=== PATIENT | male | born 1935 | race Caucasian/White ===

== ENCOUNTER 2018-01-26 11:00 | Outpatient (RCR) | payer MEDICARE, OTHER, SELFPAY ==
--- NOTE | 2018-01-17 12:41 | HP.PTEVAL_ITS ---
Patient's Visit Information REGINA ROJAS is a 82 year old M referred to Physical Therapy by Eris MCDONALD with a diagnosis of Left Shoulder Pain. Date of Evaluation: 01/17/18 Physical Therapist: Tiffany Christina - Visit Plan Frequency: 2x /Week Duration: 2 Weeks Plan: Focus on HEP- not above his head - Subjective Subjective: 2003 had a DENTAL BILLING SPECIALIST shunt for temporary subarachnoid bleed- then was diagnosed with bacterial menengitis. 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 Thngs are constantly changing. Bottom line is can't operate anymore has been all over and they basically told him that there is nothing they can do. 99.5% of the problems are coming from the spinal cord- not peripheral. Can stand with a walker so his can pull up his pants. The left leg partially works. Both shoulders are torn but he is unable to go throughout surgery. Goes to the [facility] 3x a week. Switched to the power chair about 2 weeks ago and the shoulder is better. Has a new chair but he has to redo the arms. Is here due to his left arm not working. Agg: anything - Pain starts in the shoulder blade and radiates to the triceps and deltoid. Eases: none Worst: 9/10 Best: 2/10. Stabbing pains. 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 No neck pain. Exercises 40 min before he gets out of bed in the morning. Uses his power wheelchair in the house. - Objective Posture: FH, RS, Increased kyphosis. Palpation: tender along scapula, upper trap, bicicipital groove and down the biceps and triceps to the elbow. ROM: flexion: 160 degrees, abd: to ear, ER: 40 degrees significant crunching and creaking. Strength: 5/5 throughout - Goals Goal 1:: Patient will be I with HEP and progression Goal Time Frame: 4-6 Weeks Goal 2:: Patinet will demo full ROM of the left UE Goal Time Frame: 4-6 Weeks Goal 3:: Patient will report 4/10 pain at its worst Goal Time Frame: 4-6 Weeks - Rehabilitation Potential Physical Therapy Diagnosis: Patient presents with hypomobility- he has decreased ROM and muscular endurance leading to increased pain Rehabilitation Potential: Fair - Anticipated Interventions Patient/Client Instruction: Educate patient on: Benefits of Fitness Program For the Purpose of:: To improve performance and independence with ADL's Therapeutic Exercise to Include: Strength training, Body mechanics, Postural training, Passive ROM, Active ROM, Scapular Strength/Stabilization For the Purpose of:: To improve performance and independence with ADL's Cryotherapy (ice pack, ice massage): Yes Thermo therapy (hot pack): Yes For the Purpose of:: To decrease pain Thank you for the opportunity to evaluate your patient. For Medicare and Medicare HMO plans, please review the plan of care and approve it. It will need to be FAXED BACK to us at [phone] for Medicare purposes. Please let me know if there are questions or concerns regarding this plan of care. Physician Signature: Date:
--- NOTE | 2018-03-05 10:52 | HP.PT.NRP ---
HP - Discharge Summary (1) - Patient Information REGINA ROJAS was seen in my office for initial evaluation on 01/17/18. The following Plan of Care was established for this patient: Initial Frequency: 2x /Week Initial Duration: 2 Weeks - Anticipated Interventions Patient/Client Instruction: Educate patient on: Benefits of Fitness Program For the Purpose of:: To improve performance and independence with ADL's Therapeutic Exercise to Include: Strength training, Body mechanics, Postural training, Passive ROM, Active ROM, Scapular Strength/Stabilization For the Purpose of:: To improve performance and independence with ADL's Cryotherapy (ice pack, ice massage): Yes Thermo therapy (hot pack): Yes For the Purpose of:: To decrease pain This patient was last seen in our office . Pertinent comments regarding their Physical therapy will appear below: Patient has not attended therapy in 4 weeks and is appropriate for d/c at this time. At this point I will be discontinuing this patient from physical therapy. I would be happy to see this patient again in the future if found appropriate by the physician. Thank you! Tiffany Christina
== END 2018-01-26 19:00 | disposition home or self-care (01) ==
LOC: PT 11:00
PROVIDERS: Family Provider Family Medicine; PCP Family Medicine; Visit Provider Family Medicine
DX: M25.512 Pain in left shoulder (principal)
CPT/HCPCS: 97014; 97110; 97163; G0283

== ENCOUNTER 2018-01-28 11:58 | Inpatient (IN) | payer MEDICARE, OTHER, SELFPAY ==
[2018-01-28 12:00] VITALS: BP 127/73; PULSE 81; RESP 18; TEMP 37.4; O2SAT 98; BMI 24.3
--- NOTE | 2018-01-28 12:11 | VDLE_ITS ---
Reason For Study: swelling Procedure LEFT Exam performed portable in ED. GSV is normal. The exam was diagnostic. POP V is compressible, spontaneous, phasic, Difficult study. Pt in chair and unable to competent and demonstrates normal transfer. augmentation. A preliminary report was called and/or faxed T/P Trunk is compressible. to ED RN. PTV is compressible. LT PerV is compressible. Chronic vein wall thickening noted in the CFV and FV with normal venous flow patterns. Interpretation Summary Patient examined while sitting in a chair No evidence for acute deep venous thrombosis Vein wll thickening noted in the left common femoral and femoral veins consistent with patient's history of chronic deep venous thrombosis--compare to 11/11/16. Ordering Physician: Shruthi Miles Performed By: Kasi Barragan RVT
[2018-01-28 12:43] LABS: Absolute Lymphocyte Count 0.89 X10^3/ul (0.83-4.51); Absolute Neutrophil Count 9.8 X10^3/uL (2.0-7.7); Basophil# 0.01 X10^3/uL; Basophil% 0.1 % (0-1); Eosinophil# 0.01 X10^3/uL; Eosinophils% 0.1 % (0-5); Hemoglobin 12.6 g/dl (13.0-16.5); Lymphocyte # 0.89 X10^3/ul (4.0); Lymphocyte % 7.7 % (19-41); Mean Corp Hgb Conc 32.3 g/gl (32-36); Mean Corpuscular Hgb 32.6 pg (27.0-32.0); Mean Platelet Vol. 9.6 fl (6.2-12.0); Monocyte# 0.73 X10^3/uL; Monocyte% 6.3 % (0-10); Neutrophil # 9.84 X10^3/uL (2.7-7.7); Neutrophil % 85.6 % (47-70); Platelet Count 116 K/mm3 (150-450); RBC Distribution Width CV 13.3 % (11.6-14.6); RBC Distribution Width SD 49.6 fl (35.1-43.9); Red Blood Count 3.86 M/mm3 (4.6-6.2); White Blood Count 11.5 K/mm3 (4.4-11.0)
[2018-01-28 12:48] LABS: POSITIVE COUNT NO; POSITIVE DIFFERENTIAL NO; POSITIVE MORPHOLOGY NO
[2018-01-28] MEDS: 0.9% Normal Saline 1,000 ML 150 ML IV (12:52)
[2018-01-28 12:57] LABS: Anion Gap 3 (5-15); BUN 21 mg/dL (7-18); BUN/Creat Ratio 23.7 RATIO (10-20); Calcium,Total 8.6 mg/dL (8.5-10.1); Chloride 98 mmol/L (98-107); Creatinine, Serum 0.89 mg/dL (0.70-1.30); EST Glomerular Filtration Rate 88 mL/min (>60); Est Glom Filt Rate - Afr Amer 106 mL/min (>60); Estimated Creatinine Clearance 68.35 ml/min; Glucose 110 mg/dL (74-106); Potassium 4.2 mmol/L (3.5-5.1); Sodium Level 135 mmol/L (136-145)
--- NOTE | 2018-01-28 13:40 | ED.DCSUM_ITS ---
- ER Visit Summary Date of Service: 01/28/18 Chief Complaint: [Redness and swelling left leg] History of Present Illness: The patient is a 82 M [presents to the emergency department with chief complaint of redness and swelling to his left leg that started yesterday. Patient has a history of prior cellulitis. Patient denies any trauma to his leg. Patient denies any chest pain or shortness of breath. Patient does have a history of DVT and has a Bree filter in place. Patient currently not anticoagulated. Patient denies any fevers at home. Patient was seen at the urgent care today and sent to the emergency department for further evaluation.] Physical Examination: [HEENT-PERRLA, EOMI. Cranial nerves II through XII grossly intact. TMs clear. Mucous membranes moist. No adenopathy. Cardiovascular-regular rate and rhythm without murmur or ectopy Lungs-clear to auscultation, chest wall stable without crepitus or subcu emphysema Abdomen-normoactive bowel sounds, soft, nontender, no rebound or rigidity, no peritoneal signs. Extremities-intact ?4, normal range of motion, normal pulses. Left leg-there is diffuse erythema from below the knee to the foot as well as soft tissue swelling and edema. Patient has normal dorsal pedal posterior tibial pulses. The leg is warm to the touch. Test Results: [CBC with differential showed a white blood cell count of 11.5, hemoglobin 12.6, hematocrit 39, platelets 116. Chemistries unremarkable. Venous duplex of the left lower extremity showed chronic thickening of the veins however no acute DVT noted.] Emergency Department Course and Treatment: [Patient had blood cultures ordered and was started on Levaquin IV as he states that last time he had severe cellulitis it seems that the Levaquin was able to take care of it. Treatment Plan: [Patient wanted to speak with the hospitalist prior to deciding on admission. After discussing case with hospitalist he agreed to be admitted for IV antibiotics and further management of his cellulitis.] Disposition: [Admit] Impression: [Cellulitis left leg] This note was generated with [employer] dictation software. It may contain incorrect words, spelling, and punctuation that were not noted in review of the chart prior to signing ED Disposition - Plan for ED Patient: Chief Complaint: Cellulitis Referrals: Eris Melendez MD [Primary Care Provider] -
[2018-01-28 15:25] VITALS: BP 141/71; PULSE 77; RESP 16; O2SAT 99
--- NOTE | 2018-01-28 15:26 | PCM.HP.STD ---
Problem List (1) Chronic pain Status: Chronic Qualifiers: Chronic pain type: chronic pain syndrome Qualified Code(s): G89.4 - Chronic pain syndrome (2) Macrocytic anemia Status: Acute (3) Thrombocytopenia Status: Acute (4) Contusion of toe Status: Resolved (5) Left leg cellulitis Status: Acute Comment: unknown etiology (6) Left leg weakness Status: Chronic (7) Seizure Status: Ruled-out (8) Carpal tunnel syndrome on both sides Status: Chronic (9) Constipation Status: Chronic (10) DVT (deep venous thrombosis) Status: Resolved Comment: with interior and anterior filters in place bilateral (11) HTN (hypertension) Status: Chronic Qualifiers: (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 (17) Immunocompromised due to corticosteroids Status: Acute (18) Tinea pedis Status: Acute Qualifiers: Laterality: left Qualified Code(s): B35.3 - Tinea pedis History of Present Illness Date of Admission: 01/28/18 Chief Complaint: increased redness, swelling and pain LLE The patient is a 82 year old M with a PMH of transverse myelitis/paraplegia, CIVIL RIGHTS INVESTIGATOR shunt(after a SAH), syringomyelia(due to bacterial meningitis), DVT (filter present), chronic pain S. nocardia involving the RUE and LLE in the past(on suppressive Bactrim), steroid induced DM, chronic steroid use, HTN, PVD, SAH and BL CTS who presented to the Ed at [facility] on 01/28/18 c/o increased swelling, redness and pain of the LLE. He denied fever, chills, sweats. He denied any falls or injuries to the Legs recently. He moisturizes the Leg with Duoderm daily. Vital signs at presentation to the emergency room are temperature 99.3, pulse rate 81, blood pressure 127/73, respiratory rate 18 and he was 98% saturated on room air. CBC shows an elevated white blood cell count at 11.5 with 86% neutrophils and 0.2% immature granulocytes. The hemoglobin is low at 12.6 with an MCV of 101. Platelets are low at 116,000. Sodium is low at 135 and the carbon dioxide is increased at 34. On PE the left leg from tibial plateau distally is red/purple, swollen and has increased warmth to touch. No openings in the skin. there is Maceration between the left big toe and the second toe with a opening in the skin. It is painful to touch. He tells me that he has had MRSA in the past and has been treated with VAncomycin on many occasions. He is being admitted to the hospital with a dx of cellultis and tinea pedis. 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 Allergies Cephalosporins Allergy (Intermediate, Verified 11/10/16 18:54) Laryngospasms Penicillins Allergy (Intermediate, Verified 01/08/14 13:27) Rash IVP DYE Allergy (Uncoded 09/01/14 09:52) Rash Home Medications: Ambulatory Orders Medication Instructions Recorded Gabapentin [Neurontin] 600 mg PO TID@0800,1700,2199 #90 09/18/14 capsule Ketoconazole [Nizoral Cream] 1 applic TOPICAL PRN PRN #14 09/18/14 Multivitamins,Ther W-Minerals 1 tablet PO DAILY@1700 #30 tablet 09/18/14 [Multivitamin With Minerals] Pyridoxine HCl [Vitamin B-6] 100 mg PO DAILY@1700 #30 tablet 09/18/14 Isosorbide Dinitrate [Isordil] 10 mg PO DAILY@219901/12/16 Losartan Potassium [Cozaar] 12.5 mg PO DAILY@219901/12/16 Senna/Docusate Sodium [Senokot-S] 1 tablet PO BID@0800,219901/12/16 Carvedilol [Coreg] 3.125 mg PO DAILY@1700 11/10/16 Duloxetine Hcl [Cymbalta] 60 mg PO DAILY@1700 11/10/16 Furosemide [Lasix] 40 mg PO DAILY@2200 11/10/16 Magnesium Oxide [Magnesium] 500 mg PO BID@0800,2200 11/10/16 Riboflavin [Vitamin B2] 200 mg PO DAILY@1700 11/10/16 Smz/Tmp Ds [Bactrim Ds] 1 tablet PO DAILY@0800 11/10/16 Acetaminophen [Tylenol Tablet] 650 mg PO Q6H PRN PRN #0 tablet 11/14/16 Hydrocodone/Acetaminophen 1 each PO BID@1700,2200 #60 tablet 11/14/16 [Hydrocodon-Acetaminophn 10-325] Ibuprofen [Motrin] 200 mg PO Q6H PRN #0 tablet 11/14/16 MorphINE [Ms Contin] 30 mg PO TID@0800,1600,2200 #60 11/14/16 tablet Oxymetazoline 0.05% [Afrin (BKC)] 2 spray NASAL Q12H PRN PRN #1 11/14/16 spray.btl Hydrocortisone 20 mg PO TID 01/28/18 Metformin HCl [Glucophage] 500 mg PO BIDCM 01/28/18 Surgical History: - - Laminectomy 2006, 2007. History of CIVIL RIGHTS INVESTIGATOR shunt for subarachnoid hemorrhage which secondarily got infected with E. coli. 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 Psychiatric History: No pertinent psych hx, - - he is very angry now and his attributes this to the steroids....she states it makes him mean. 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 Smoking Status: Never smoker - *Family History Maternal History Items: - - , depression Paternal History Items: - - Offspring History Items: - - 2 children, 4 grand children, 1 great grandchild, all in good health Review of Systems Constitutional: Denies: Chills, Fever, Weight Change HEENT: Reports: Head Aches - tells me that he always gets a FOWLER when he has an infection......denies neck stiffness. Denies: Sinus Congestion, Sinus Drainage Cardiovascular: Denies: Chest Pain, Palpitations Respiratory: Denies: Cough, Shortness of breath at rest, Sputum production Gastrointestinal: Denies: Abdominal Pain, Nausea, Vomiting Genitourinary: Denies: Dysuria Musculoskeletal: Reports: Leg Pain - left leg Neurological: Reports: Focal weakness - he is paraplegic...he has some strength in the LLE. 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) Tinea pedis (Acute) - Physical Exam General: Alert, Oriented x3, Cooperative, No apparent distress - but very angry and c/o everything.....does not want to be in the hospital because he does not like being awakened multiple times at night and does not like to have lab work every day and does not like to be poked for IV's etc....., Well developed, Well nourished HEENT: Atraumatic, PERRLA, EOMI, Normocephalic, - - he has a scar on the scalp from previous surgery for a SAH and subsequent placement of a CIVIL RIGHTS INVESTIGATOR shunt Oral: No Gingival or Mucosal Lesions/ Ulcerations, Dry Mucosa Neck: Supple, No Nodes, Trachea Midline Lungs: Clear to auscultation, Normal air movement, No rhonchi, No wheeze, No rales Cardiovascular: Regular rate, Regular Rhythm, Normal S1, Normal S2, Murmur - 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 with radiation to the LLSB and the apex, No rub noted, No Gallop Abdomen: Bowel Sounds Present, Soft, Non Tender, Non-Distended Extremities: No clubbing, No cyanosis, Edema - of the Left ankle and distal LLE Skin: No rashes, Incision - there is maceration and an opening in the skin between the left great toe and the second toe Musculoskeletal: Tenderness - of the LLE distal to the knee with palpation Neurological: Cranial nerves II-XII grossly intact Psych/Mental Status: Agitated Vital Signs Temp Pulse Resp BP Pulse Ox 99.3 F H 77 16 141/71 H 99 01/28/18 12:00 01/28/18 15:25 01/28/18 15:25 01/28/18 15:25 01/28/18 15:25 Oxygen Delivery Method Room Air Weight: 170 lb Body Mass Index (BMI) 24.3 Laboratory Tests Past 24 Hrs 01/28/18 01/28/18 12:30 12:30 WBC 11.5 H RBC 3.86 L Hgb 12.6 L Hct 39.0 L MCV 101.0 H MCH 32.6 H MCHC 32.3 RDW 13.3 RDW Differential 49.6 H Plt Count 116 L MPV 9.6 Immature Gran % (Auto) 0.200 Neut % (Auto) 85.6 H Lymph % (Auto) 7.7 L [place] % (Auto) 6.3 Eos % (Auto) 0.1 Baso % (Auto) 0.1 Absolute Neuts (auto) 9.8 H Absolute Lymphs (auto) 0.89 Total Counted Not Reportable Sodium 135 L Potassium 4.2 Chloride 98 Carbon Dioxide 34.0 H Anion Gap 3 L BUN 21 H Creatinine 0.89 Estim Creat Clear Calc 68.35 Est GFR (MDRD) Af Amer 106 Est GFR (MDRD) Non-Af 88 BUN/Creatinine Ratio 23.7 H Glucose 110 H Calcium 8.6 Assessment/Plan Active and Suspected Problems Macrocytic anemia (Acute) Thrombocytopenia (Acute) 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) Tinea pedis (Acute) Impressions 1. 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 Tinea pedis between the left great toe and the second toe 3. hx of SAH in the past with subsequent CIVIL RIGHTS INVESTIGATOR shunt and then E. Coli bacterial meningitis followed by syringomyelia 4. CIVIL RIGHTS INVESTIGATOR shunt 5. 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 On chronic suppression with Bactrim 7. PVD 8. Hypertension 9. Bilateral carpal tunnel syndrome 10. Chronic pain syndrome 11. Macrocytic anemia 12. chronic constipation 13. metabolic alkalosis/dehydration Admit to MS Start Vanco and PO Levaquin culture the open area between the left big and second toes ECHO to evaluate the MM BC's draw in the ER Lotrimin between the toes and a small gauze to keep it dry His meds were ordered just like he takes them at home and will attempt not to awaken from 2300 to 0700 Hydrate with NS Recheck the lab in 48H Consult Dr. Robert PCR on the DC between the toes. Code Visit Inpatient E&M: 14432 Init Hosp L2
--- NOTE | 2018-01-28 15:45 | HP.PCM_ITS ---
Problem List (1) Chronic pain Status: Chronic Qualifiers: Chronic pain type: chronic pain syndrome Qualified Code(s): G89.4 - Chronic pain syndrome (2) Macrocytic anemia Status: Acute (3) Thrombocytopenia Status: Acute (4) Contusion of toe Status: Resolved (5) Left leg cellulitis Status: Acute Comment: unknown etiology (6) Left leg weakness Status: Chronic (7) Seizure Status: Ruled-out (8) Carpal tunnel syndrome on both sides Status: Chronic (9) Constipation Status: Chronic (10) DVT (deep venous thrombosis) Status: Resolved Comment: with interior and anterior filters in place bilateral (11) HTN (hypertension) Status: Chronic Qualifiers: (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 nocardia involving the RUE and LLE in the past(on suppressive Bactrim), steroid induced DM, chronic steroid use, HTN, PVD, SAH and BL CTS who presented to the Ed at [facility] on 01/28/18 c/o increased swelling, redness and pain of the LLE. He denied fever, chills, sweats. He denied any falls or injuries to the Legs recently. He moisturizes the Leg with Duoderm daily. Vital signs at presentation to the emergency room are temperature 99.3, pulse rate 81, blood pressure 127/73, respiratory rate 18 and he was 98% saturated on room air. CBC shows an elevated white blood cell count at 11.5 with 86% neutrophils and 0.2% immature granulocytes. The hemoglobin is low at 12.6 with an MCV of 101. Platelets are low at 116,000. Sodium is low at 135 and the carbon dioxide is increased at 34. On PE the left leg from tibial plateau distally is red/purple, swollen and has increased warmth to touch. No openings in the skin. there is Maceration between the left big toe and the second toe with a opening in the skin. It is painful to touch. He tells me that he has had MRSA in the past and has been treated with VAncomycin on many occasions. He is being admitted to the hospital with a dx of cellultis and tinea pedis. 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 Allergies Cephalosporins Allergy (Intermediate, Verified 11/10/16 18:54) Laryngospasms Penicillins Allergy (Intermediate, Verified 01/08/14 13:27) Rash IVP DYE Allergy (Uncoded 09/01/14 09:52) Rash Home Medications: Ambulatory Orders Medication Instructions Recorded Gabapentin [Neurontin] 600 mg PO TID@0800,1700,2199 #90 09/18/14 capsule Ketoconazole [Nizoral Cream] 1 applic TOPICAL PRN PRN #14 09/18/14 Multivitamins,Ther W-Minerals 1 tablet PO DAILY@1700 #30 tablet 09/18/14 [Multivitamin With Minerals] Pyridoxine HCl [Vitamin B-6] 100 mg PO DAILY@1700 #30 tablet 09/18/14 Isosorbide Dinitrate [Isordil] 10 mg PO DAILY@219901/12/16 Losartan Potassium [Cozaar] 12.5 mg PO DAILY@219901/12/16 Senna/Docusate Sodium [Senokot-S] 1 tablet PO BID@0800,219901/12/16 Carvedilol [Coreg] 3.125 mg PO DAILY@1700 11/10/16 Duloxetine Hcl [Cymbalta] 60 mg PO DAILY@1700 11/10/16 Furosemide [Lasix] 40 mg PO DAILY@2200 11/10/16 Magnesium Oxide [Magnesium] 500 mg PO BID@0800,2200 11/10/16 Riboflavin [Vitamin B2] 200 mg PO DAILY@1700 11/10/16 Smz/Tmp Ds [Bactrim Ds] 1 tablet PO DAILY@0800 11/10/16 Acetaminophen [Tylenol Tablet] 650 mg PO Q6H PRN PRN #0 tablet 11/14/16 Hydrocodone/Acetaminophen 1 each PO BID@1700,2200 #60 tablet 11/14/16 [Hydrocodon-Acetaminophn 10-325] Ibuprofen [Motrin] 200 mg PO Q6H PRN #0 tablet 11/14/16 MorphINE [Ms Contin] 30 mg PO TID@0800,1600,2200 #60 11/14/16 tablet Oxymetazoline 0.05% [Afrin (BKC)] 2 spray NASAL Q12H PRN PRN #1 11/14/16 spray.btl Hydrocortisone 20 mg PO TID 01/28/18 Metformin HCl [Glucophage] 500 mg PO BIDCM 01/28/18 Surgical History: - - Laminectomy 2006, 2007. History of LAUNCH ENGINEER shunt for subarachnoid hemorrhage which secondarily got infected with E. coli. 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 Psychiatric History: No pertinent psych hx, - - he is very angry now and his attributes this to the steroids....she states it makes him mean. 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 Smoking Status: Never smoker - *Family History Maternal History Items: - - , depression Paternal History Items: - - Offspring History Items: - - 2 children, 4 grand children, 1 great grandchild, all in good health Review of Systems Constitutional: Denies: Chills, Fever, Weight Change HEENT: Reports: Head Aches - tells me that he always gets a FOWLER when he has an infection......denies neck stiffness. Denies: Sinus Congestion, Sinus Drainage Cardiovascular: Denies: Chest Pain, Palpitations Respiratory: Denies: Cough, Shortness of breath at rest, Sputum production Gastrointestinal: Denies: Abdominal Pain, Nausea, Vomiting Genitourinary: Denies: Dysuria Musculoskeletal: Reports: Leg Pain - left leg Neurological: Reports: Focal weakness - he is paraplegic...he has some strength in the LLE. 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) Tinea pedis (Acute) - Physical Exam General: Alert, Oriented x3, Cooperative, No apparent distress - but very angry and c/o everything.....does not want to be in the hospital because he does not like being awakened multiple times at night and does not like to have lab work every day and does not like to be poked for IV's etc....., Well developed, Well nourished HEENT: Atraumatic, PERRLA, EOMI, Normocephalic, - - he has a scar on the scalp from previous surgery for a SAH and subsequent placement of a LAUNCH ENGINEER shunt Oral: No Gingival or Mucosal Lesions/ Ulcerations, Dry Mucosa Neck: Supple, No Nodes, Trachea Midline Lungs: Clear to auscultation, Normal air movement, No rhonchi, No wheeze, No rales Cardiovascular: Regular rate, Regular Rhythm, Normal S1, Normal S2, Murmur - 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 with radiation to the LLSB and the apex, No rub noted, No Gallop Abdomen: Bowel Sounds Present, Soft, Non Tender, Non-Distended Extremities: No clubbing, No cyanosis, Edema - of the Left ankle and distal LLE Skin: No rashes, Incision - there is maceration and an opening in the skin between the left great toe and the second toe Musculoskeletal: Tenderness - of the LLE distal to the knee with palpation Neurological: Cranial nerves II-XII grossly intact Psych/Mental Status: Agitated Vital Signs Temp Pulse Resp BP Pulse Ox 99.3 F H 77 16 141/71 H 99 01/28/18 12:00 01/28/18 15:25 01/28/18 15:25 01/28/18 15:25 01/28/18 15:25 Oxygen Delivery Method Room Air Weight: 170 lb Body Mass Index (BMI) 24.3 Laboratory Tests Past 24 Hrs 01/28/18 01/28/18 12:30 12:30 WBC 11.5 H RBC 3.86 L Hgb 12.6 L Hct 39.0 L MCV 101.0 H MCH 32.6 H MCHC 32.3 RDW 13.3 RDW Differential 49.6 H Plt Count 116 L MPV 9.6 Immature Gran % (Auto) 0.200 Neut % (Auto) 85.6 H Lymph % (Auto) 7.7 L [place] % (Auto) 6.3 Eos % (Auto) 0.1 Baso % (Auto) 0.1 Absolute Neuts (auto) 9.8 H Absolute Lymphs (auto) 0.89 Total Counted Not Reportable Sodium 135 L Potassium 4.2 Chloride 98 Carbon Dioxide 34.0 H Anion Gap 3 L BUN 21 H Creatinine 0.89 Estim Creat Clear Calc 68.35 Est GFR (MDRD) Af Amer 106 Est GFR (MDRD) Non-Af 88 BUN/Creatinine Ratio 23.7 H Glucose 110 H Calcium 8.6 Assessment/Plan Active and Suspected Problems Macrocytic anemia (Acute) Thrombocytopenia (Acute) 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) Tinea pedis (Acute) Impressions 1. 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 Tinea pedis between the left great toe and the second toe 3. hx of SAH in the past with subsequent LAUNCH ENGINEER shunt and then E. Coli bacterial meningitis followed by syringomyelia 4. LAUNCH ENGINEER shunt 5. 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 On chronic suppression with Bactrim 7. PVD 8. Hypertension 9. Bilateral carpal tunnel syndrome 10. Chronic pain syndrome 11. Macrocytic anemia 12. chronic constipation 13. metabolic alkalosis/dehydration Admit to MS Start Vanco and PO Levaquin culture the open area between the left big and second toes ECHO to evaluate the MM BC's draw in the ER Lotrimin between the toes and a small gauze to keep it dry His meds were ordered just like he takes them at home and will attempt not to awaken from 2300 to 0700 Hydrate with NS Recheck the lab in 48H Consult Dr. Robert PCR on the DC between the toes. Code Visit Inpatient E&M: 16065 Init Hosp L2
[2018-01-28 16:06] VITALS: BMI 24.3
[2018-01-28 16:12] VITALS: BP 121/53; PULSE 79; RESP 18; TEMP 37.2; O2SAT 96
[2018-01-28 16:14] LABS: Immature Platelet Fraction 2.5 % (1.0-7.9); RET-HE 32.1 pg (30-35); Reticulocyte Count 1.32 % (0.5-1.5)
[2018-01-28 16:35] LABS: Erythrocyte Sedimentation Rate 35 mm/hr (0-20)
[2018-01-28] MEDS: 0.9% Normal Saline 1,000 ML 100 ML IV (16:35)
[2018-01-28 16:59] LABS: Hemoglobin A1c 5.8 % (4.2-6.3)
[2018-01-28 17:41] LABS: Bedside Glucose 163 mg/dL (70-110)
[2018-01-28 18:13] LABS: Bacteria 0 SEEN /hpf (None Seen); Mucous, Urine 0 SEEN /hpf (<or=2+); Red Blood Cells-Urine 0 SEEN /hpf (0-5); Squamous Epithelial Cells - UA 0 SEEN /hpf (0-5)
[2018-01-28 18:22] LABS: Color, Urine Yellow (Yellow); Glucose, Dipstick Normal (Normal); Ketone-Dipstick Negative (Negative); Leukocyte Esterase-Dipstick 100 /ul (Negative); Nitrite-Dipstick Negative (Negative); Occult Blood-Urine Negative /ul (Negative); Protein-Dipstick 15 mg/dl (Negative); Urine Bilirubin Dipstick Negative (Negative); Urine Clarity Clear (Clear); Urine Urobilinogen Normal (Normal)
[2018-01-28 18:30] LABS: White Blood Cells 0-5 SEEN /hpf (0-5)
[2018-01-28 19:07] VITALS: BMI 24.0
[2018-01-28] MEDS: DULoxetine Hcl 60 MG Capsule PO (19:30)
[2018-01-28] MEDS: Hydrocortisone 10 MG Tablet 20 MG PO (19:31)
[2018-01-28] MEDS: Pyridoxine HCl 100 MG Tablet PO (19:31)
[2018-01-28] MEDS: Senna/Docusate Sodium 1 Tablet PO (19:32)
[2018-01-28] MEDS: Multivitamins,Ther W-Minerals Tablet 1 TABLET PO (19:32)
[2018-01-28] MEDS: Carvedilol 3.125 MG TABLET PO (19:33)
[2018-01-28 19:47] LABS: M R Staph aureus DNA By PCR Negative (Negative); Probe Check PASS; Specimen Processing Control PASS; Staph aureus DNA By PCR NEGATIVE (Negative)
[2018-01-28] MEDS: Gabapentin 300 MG Capsule 600 MG PO (21:44)
[2018-01-28] MEDS: Furosemide 40 MG Tablet PO (21:45)
[2018-01-28] MEDS: Losartan Potassium 25 MG Tablet 12.5 MG PO (21:45)
[2018-01-28 22:00] VITALS: BP 118/59; PULSE 72; RESP 18; TEMP 37.9; O2SAT 97
[2018-01-28] MEDS: Isosorbide DN 10 MG Tablet PO (22:03)
[2018-01-28 22:40] LABS: Bedside Glucose 153 mg/dL (70-110)
[2018-01-29 02:00] VITALS: BP 156/86; PULSE 82; RESP 18; TEMP 37.6; O2SAT 97
[2018-01-29] MEDS: 0.9% Normal Saline 1,000 ML 100 ML IV (02:11)
--- NOTE | 2018-01-29 05:55 | ECHOCS_ITS ---
Reason For Study: murmur Procedure This was a 2D Doppler, Color Flow transthoracic echocardiogram. The study was technically limited. The study was technically difficult. Contrast injection was performed. Exam performed portable in patient room. Left Ventricle Normal LV size. Left ventricular systolic function is normal. The estimated ejection fraction is 60 %. No evidence for diastolic dysfunction. No regional wall motion abnormalities noted. Right Ventricle Normal RV size. Normal systolic function. Atria Normal left atrium. Normal right atrium. Mitral Valve There is mild to moderate mitral annular calcification. Tricuspid Valve Normal tricuspid valve. Aortic Valve The aortic valve is not well visualized. Mild focal aortic valve calcification. Pulmonic Valve The pulmonic valve is not well visualized. Great Vessels Normal aortic root. Pericardium/Pleural No pericardial effusion. Medication Diluted definity 4.0ml given slow IV push to enhance endocardial definition. MMode/2D Measurements & Calculations LVIDd: 3.7 cm IVSd: 1.1 cm LVOT diam: 2.0 cm LVIDs: 2.6 cm LVPWd: 1.1 cm LVOT area: 3.1 cm2 FS: 30.4 % LA dimension: 3.6 cm LAV(MOD-bp): 47.5 ml LAV(MOD-bp) Indexed: 24.6 ml/m2 LA A4 area: 16.2 cm2 LAV(MOD-sp2): 38.3 ml LAV(MOD-sp4): 49.6 ml RA A4 area: 14.8 cm2 Doppler Measurements & Calculations MV E max rommel: 110.1 cm/sec Lat Peak E' Rommel: 8.0 cm/sec Med Peak E' Rommel: 6.4 cm/sec MV A max rommel: 77.4 cm/sec E/E' lat: 13.8 E/E' med: 17.3 MV E/A: 1.4 Ao V2 max: 160.6 cm/sec LV V1 max: 137.1 cm/sec SV(LVOT): 76.7 ml Ao max P.4 mmHg LV V1 max P.5 mmHg Ao V2 mean: 105.1 cm/sec LV V1 mean P.9 mmHg Ao mean P.0 mmHg LV V1 mean: 92.6 cm/sec Ao V2 VTI: 29.4 cm LV V1 VTI: 24.5 cm JUAN(I,D): 2.6 cm2 JUAN(V,D): 2.7 cm2 Interpretation Summary Normal LV size. Left ventricular systolic function is normal. The estimated ejection fraction is 60 %. No evidence for diastolic dysfunction. Contrast injection was performed. Ordering Physician: Ana Quinn Referring Physician: Eris Melendez Performed By: Raysa Alexander, ZAKIA, RVT
[2018-01-29 07:16] LABS: Bedside Glucose 118 mg/dL (70-110)
[2018-01-29 07:54] VITALS: BP 146/81; PULSE 70; RESP 16; TEMP 37; O2SAT 96
[2018-01-29] MEDS: Smz/Tmp Ds Tablet 1 TABLET PO (08:03)
[2018-01-29] MEDS: Hydrocortisone 10 MG Tablet 20 MG PO ×2 (08:04→17:21)
[2018-01-29] MEDS: Magnesium Oxide 400 MG Tablet PO (08:06)
[2018-01-29] MEDS: Gabapentin 300 MG Capsule 600 MG PO ×3 (08:07→21:55)
[2018-01-29] MEDS: Senna/Docusate Sodium 1 Tablet PO ×2 (08:08→17:24)
[2018-01-29 10:02] LABS: Vitamin B12 729 pg/mL (211-911)
[2018-01-29] MEDS: Enoxaparin 40 MG/0.4 ML Syringe SC (10:12)
--- NOTE | 2018-01-29 10:48 | PCM.PN.HOSP ---
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 No fever or chills. Vitals/I&O's: Vital Signs Temp Pulse Resp BP Pulse Ox 37.0 C 70 16 146/81 H 96 01/29/18 07:54 01/29/18 07:54 01/29/18 07:54 01/29/18 07:54 01/29/18 07:54 Oxygen Delivery Method Room Air Weight: 76.912 kg Body Mass Index (BMI) 24.3 Intake and Output for Last 24 Hours 01/27/18 01/28/18 01/29/18 23:59 23:59 23:59 Intake Total 1490 / 1490 Output Total 140 / 140 1800 / 1800 Balance -140 / -140 -310 / -310 General: Alert, Cooperative, No apparent distress HEENT: Atraumatic, Normocephalic Neck: No Nodes, Thyroid Normal Size and Texture Extremities: - - Left lower extremity erythema and warmth. Musculoskeletal: Muscle Wasting Psych/Mental Status: Normal Affect, Appropriate Laboratory Results 01/28/18 17:00: S.aureus Protein A PCR NEGATIVE, MRSA (PCR) Negative 01/28/18 17:15: Urine Color Yellow, Urine Clarity Clear, Urine pH 7.0, Ur Specific [place] 1.010, Urine Protein 15 H, Urine Glucose (UA) Normal, Urine Ketones Negative, Urine Occult Blood Negative, Urine Nitrite Negative, Urine Bilirubin Negative, Urine Urobilinogen Normal, Ur Leukocyte Esterase 100 H, Urine RBC 0 SEEN, Urine WBC 0-5 SEEN, Ur Squamous Epith Cells 0 SEEN, Urine Bacteria 0 SEEN, Urine Mucus 0 SEEN 01/28/18 17:31: POC Glucose 163 H 01/28/18 22:03: POC Glucose 153 H 01/29/18 07:05: POC Glucose 118 H Current Medications Acetaminophen (Tylenol) 650 mg PO Q6H PRN PRN PRN Reason: Mild Pain (scale 0-3)/T>100.7 Hydrocodone Bitart/Acetaminophen ([place] 5mg-325mg) 1 tablet PO BID@1800,2200 JULIO Last Admin: 01/28/18 22:12 Dose: Not Given Carvedilol (Coreg) 3.125 mg PO DAILY@1700 [facility] Last Admin: 01/28/18 19:33 Dose: 3.125 mg Clotrimazole (Lotrimin) 1 applicatio TOPICAL BID@0800,1800 [facility] PRN Reason: Protocol Last Admin: 01/29/18 08:05 Dose: Not Given Dextrose (D50w Syringe) 0 gm IV X1 PRN; Protocol PRN Reason: Hypoglycemia Duloxetine HCl (Cymbalta) 60 mg PO DAILY@1700 [facility] Last Admin: 01/28/18 19:30 Dose: 60 mg Enoxaparin Sodium (Lovenox) 40 mg SC DAILY@1000 [facility] Last Admin: 01/29/18 10:12 Dose: 40 mg Furosemide (Lasix) 40 mg PO DAILY@2200 [facility] Last Admin: 01/28/18 21:45 Dose: 40 mg Gabapentin (Neurontin) 600 mg PO TID@0800,1800,2200 [facility] Last Admin: 01/29/18 08:07 Dose: 600 mg Glucagon () 1 mg IM .X1 PRN PRN Reason: Hypoglycemia Hydrocortisone (Cortef) 20 mg PO 0800,1800 [facility] Last Admin: 01/29/18 08:04 Dose: 20 mg Sodium Chloride () 1,000 mls @ 100 mls/hr IV .Q10H [facility] Last Admin: 01/29/18 02:11 Dose: 100 mls/hr Vancomycin HCl 750 mg/ Sodium (Chloride) 265 mls @ 265 mls/hr IV Q12H [facility] Insulin Aspart (Novolog Flexpen (Bkc)) 0 units SC ACHS [facility] PRN Reason: Protocol Last Admin: 01/29/18 07:37 Dose: Not Given Isosorbide Dinitrate (Isordil) 10 mg PO DAILY@2200 [facility] Last Admin: 01/28/18 22:03 Dose: 5 mg Levofloxacin (Levaquin) 500 mg PO DAILY@1800 [facility] Losartan Potassium (Cozaar) 12.5 mg PO DAILY@2200 [facility] Last Admin: 01/28/18 21:45 Dose: 12.5 mg Magnesium Oxide (Mag-Ox 400) 400 mg PO BID@0800,2200 [facility] Last Admin: 01/29/18 08:06 Dose: 400 mg Metformin HCl (Glucophage) 500 mg PO BID@0800,1800 [facility] Last Admin: 01/29/18 08:04 Dose: 500 mg Morphine Sulfate (Ms Contin) 30 mg PO BID@0800,2200 [facility] Last Admin: 01/29/18 08:06 Dose: 30 mg Multi-Ingredient Cream (Eucerin) 1 applic TOPICAL BID [facility] PRN Reason: Protocol Last Admin: 01/29/18 10:13 Dose: 1 applicatio Multivitamins/Minerals (Multivitamin With Minerals) 1 tablet PO 1800 [facility] Last Admin: 01/28/18 19:32 Dose: 1 tablet Pyridoxine HCl (Vitamin B-6) 100 mg PO 1800 [facility] Last Admin: 01/28/18 19:31 Dose: 100 mg Senna/Docusate Sodium (Senokot-S, [place]-Colace) 1 tablet PO BID@0800,1800 [facility] Last Admin: 01/29/18 08:08 Dose: 1 tablet Sodium Chloride () 5 - 30 ml IV UD PRN PRN Reason: SALINE FLUSH Sodium Chloride (Gabbs Nasal [place]) 2 spray NASAL TID PRN PRN PRN Reason: NASAL DRYNESS Trimethoprim/Sulfamethoxazole (Bactrim Ds) 1 tablet PO DAILY@0800 [facility] Last Admin: 01/29/18 08:03 Dose: 1 tablet Assessment/Plan Active and Suspected Problems Macrocytic anemia (Acute) Thrombocytopenia (Acute) 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 Left lower extremity cellulitis Patient noting that it is improved from yesterday and that he is overall feeling better. Continue with vancomycin and Levaquin Appreciate infectious disease input Serology for staph and MRSA are negative Blood cultures pending 2. History of Nocardia On chronic Bactrim Follow-up infectious disease outpatient 3. History of syrinx Patient said that it is very confluent from C5 down to his thoracic vertebrae. Has been told that he will eventually to further paralysis and may be cessation of breathing. Patient is on hydrocortisone to help with edema associated with this. Patient states that this is been initiated through his primary care provider and patient states that he has no illusions that this is going to fix his syrinx. 4. DVT prophylaxis Given the patient's history of subarachnoid hemorrhage and blood noted on repeat LPs the patient has had in the past for his history of venous thromboembolic disease, skin order a right leg SCD. Chemical prophylaxis he feels contraindicated given his history and also would avoid a left lower extremity SCD given his left leg cellulitis. Advance CARE planning: Spent an additional 20 minutes outside of the history and physical discussing goals of care and aggressiveness of care. Discussed the options such as positive care to which he said that he is discussed with them before and also address CODE STATUS to which he says that he does not want CPR in the event of cardiopulmonary rest and is DNR Comfort Care arrest. Code Visit Inpatient E&M: 01973 Subs Hosp L2 Procedures: 58299 Advncd Care Plan 30 Min
--- NOTE | 2018-01-29 10:55 | PN_ITS ---
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 No fever or chills. Vitals/I&O's: Vital Signs Temp Pulse Resp BP Pulse Ox 37.0 C 70 16 146/81 H 96 01/29/18 07:54 01/29/18 07:54 01/29/18 07:54 01/29/18 07:54 01/29/18 07:54 Oxygen Delivery Method Room Air Weight: 76.912 kg Body Mass Index (BMI) 24.3 Intake and Output for Last 24 Hours 01/27/18 01/28/18 01/29/18 23:59 23:59 23:59 Intake Total 1490 / 1490 Output Total 140 / 140 1800 / 1800 Balance -140 / -140 -310 / -310 General: Alert, Cooperative, No apparent distress HEENT: Atraumatic, Normocephalic Neck: No Nodes, Thyroid Normal Size and Texture Extremities: - - Left lower extremity erythema and warmth. Musculoskeletal: Muscle Wasting Psych/Mental Status: Normal Affect, Appropriate Laboratory Results 01/28/18 17:00: S.aureus Protein A PCR NEGATIVE, MRSA (PCR) Negative 01/28/18 17:15: Urine Color Yellow, Urine Clarity Clear, Urine pH 7.0, Ur Specific [place] 1.010, Urine Protein 15 H, Urine Glucose (UA) Normal, Urine Ketones Negative, Urine Occult Blood Negative, Urine Nitrite Negative, Urine Bilirubin Negative, Urine Urobilinogen Normal, Ur Leukocyte Esterase 100 H, Urine RBC 0 SEEN, Urine WBC 0-5 SEEN, Ur Squamous Epith Cells 0 SEEN, Urine Bacteria 0 SEEN, Urine Mucus 0 SEEN 01/28/18 17:31: POC Glucose 163 H 01/28/18 22:03: POC Glucose 153 H 01/29/18 07:05: POC Glucose 118 H Current Medications Acetaminophen (Tylenol) 650 mg PO Q6H PRN PRN PRN Reason: Mild Pain (scale 0-3)/T>100.7 Hydrocodone Bitart/Acetaminophen ([place] 5mg-325mg) 1 tablet PO BID@1800,2200 JULIO Last Admin: 01/28/18 22:12 Dose: Not Given Carvedilol (Coreg) 3.125 mg PO DAILY@1700 [facility] Last Admin: 01/28/18 19:33 Dose: 3.125 mg Clotrimazole (Lotrimin) 1 applicatio TOPICAL BID@0800,1800 [facility] PRN Reason: Protocol Last Admin: 01/29/18 08:05 Dose: Not Given Dextrose (D50w Syringe) 0 gm IV X1 PRN; Protocol PRN Reason: Hypoglycemia Duloxetine HCl (Cymbalta) 60 mg PO DAILY@1700 [facility] Last Admin: 01/28/18 19:30 Dose: 60 mg Enoxaparin Sodium (Lovenox) 40 mg SC DAILY@1000 [facility] Last Admin: 01/29/18 10:12 Dose: 40 mg Furosemide (Lasix) 40 mg PO DAILY@2200 [facility] Last Admin: 01/28/18 21:45 Dose: 40 mg Gabapentin (Neurontin) 600 mg PO TID@0800,1800,2200 [facility] Last Admin: 01/29/18 08:07 Dose: 600 mg Glucagon () 1 mg IM .X1 PRN PRN Reason: Hypoglycemia Hydrocortisone (Cortef) 20 mg PO 0800,1800 [facility] Last Admin: 01/29/18 08:04 Dose: 20 mg Sodium Chloride () 1,000 mls @ 100 mls/hr IV .Q10H [facility] Last Admin: 01/29/18 02:11 Dose: 100 mls/hr Vancomycin HCl 750 mg/ Sodium (Chloride) 265 mls @ 265 mls/hr IV Q12H [facility] Insulin Aspart (Novolog Flexpen (Bkc)) 0 units SC ACHS [facility] PRN Reason: Protocol Last Admin: 01/29/18 07:37 Dose: Not Given Isosorbide Dinitrate (Isordil) 10 mg PO DAILY@2200 [facility] Last Admin: 01/28/18 22:03 Dose: 5 mg Levofloxacin (Levaquin) 500 mg PO DAILY@1800 [facility] Losartan Potassium (Cozaar) 12.5 mg PO DAILY@2200 [facility] Last Admin: 01/28/18 21:45 Dose: 12.5 mg Magnesium Oxide (Mag-Ox 400) 400 mg PO BID@0800,2200 [facility] Last Admin: 01/29/18 08:06 Dose: 400 mg Metformin HCl (Glucophage) 500 mg PO BID@0800,1800 [facility] Last Admin: 01/29/18 08:04 Dose: 500 mg Morphine Sulfate (Ms Contin) 30 mg PO BID@0800,2200 [facility] Last Admin: 01/29/18 08:06 Dose: 30 mg Multi-Ingredient Cream (Eucerin) 1 applic TOPICAL BID [facility] PRN Reason: Protocol Last Admin: 01/29/18 10:13 Dose: 1 applicatio Multivitamins/Minerals (Multivitamin With Minerals) 1 tablet PO 1800 [facility] Last Admin: 01/28/18 19:32 Dose: 1 tablet Pyridoxine HCl (Vitamin B-6) 100 mg PO 1800 [facility] Last Admin: 01/28/18 19:31 Dose: 100 mg Senna/Docusate Sodium (Senokot-S, Denisse-Colace) 1 tablet PO BID@0800,1800 [facility] Last Admin: 01/29/18 08:08 Dose: 1 tablet Sodium Chloride () 5 - 30 ml IV UD PRN PRN Reason: SALINE FLUSH Sodium Chloride ([place] Nasal [place]) 2 spray NASAL TID PRN PRN PRN Reason: NASAL DRYNESS Trimethoprim/Sulfamethoxazole (Bactrim Ds) 1 tablet PO DAILY@0800 [facility] Last Admin: 01/29/18 08:03 Dose: 1 tablet Assessment/Plan Active and Suspected Problems Macrocytic anemia (Acute) Thrombocytopenia (Acute) 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 Left lower extremity cellulitis * Patient noting that it is improved from yesterday and that he is overall feeling better. * Continue with vancomycin and Levaquin * Appreciate infectious disease input * Serology for staph and MRSA are negative * Blood cultures pending 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 History of syrinx * Patient said that it is very confluent from C5 down to his thoracic vertebrae. Has been told that he will eventually to further paralysis and may be cessation of breathing. * Patient is on hydrocortisone to help with edema associated with this. Patient states that this is been initiated through his primary care provider and patient states that he has no illusions that this is going to fix his syrinx. 4. DVT prophylaxis * Given the patient's history of subarachnoid hemorrhage and blood noted on repeat LPs the patient has had in the past for his history of venous thromboembolic disease, skin order a right leg SCD. Chemical prophylaxis he feels contraindicated given his history and also would avoid a left lower extremity SCD given his left leg cellulitis. Advance CARE planning: Spent an additional 20 minutes outside of the history and physical discussing goals of care and aggressiveness of care. Discussed the options such as positive care to which he said that he is discussed with them before and also address CODE STATUS to which he says that he does not want CPR in the event of cardiopulmonary rest and is DNR Comfort Care arrest. Code Visit Inpatient E&M: 12496 Subs Hosp L2 Procedures: 50217 Advncd Care Plan 30 Min
[2018-01-29 11:26] LABS: Bedside Glucose 172 mg/dL (70-110)
--- NOTE | 2018-01-29 11:39 | PCM.HP.ID ---
Problem List (1) Cellulitis of left lower extremity Status: Acute Reason for Consult: cellulitis Consulted by: Dr. 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 No recent trauma to foot. Leg does have decreased sensation. No drainage. Has been compliant with bactrim. Came to [facility], started on vanc/levaquin, and bactrim was continued. Pain much improved, redness slightly better. Prior infectious disease provider was Dr. Rosas in [place]. Full ROS Performed and neg except as noted above. 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 Allergies/Adverse Reactions: Allergies Cephalosporins Allergy (Intermediate, Verified 11/10/16 18:54) Laryngospasms Penicillins Allergy (Intermediate, Verified 01/08/14 13:27) Rash IVP DYE Allergy (Uncoded 09/01/14 09:52) Rash Home Medications: Ambulatory Orders Medication Instructions Recorded Gabapentin [Neurontin] 600 mg PO TID@0800,1700,220 #90 09/18/14 capsule Ketoconazole [Nizoral Cream] 1 applic TOPICAL PRN PRN #14 09/18/14 Multivitamins,Ther W-Minerals 1 tablet PO DAILY@170 #30 tablet 09/18/14 [Multivitamin With Minerals] Pyridoxine HCl [Vitamin B-6] 100 mg PO DAILY@1700 #30 tablet 09/18/14 Isosorbide Dinitrate [Isordil] 5 mg PO DAILY@219901/12/16 Losartan Potassium [Cozaar] 12.5 mg PO DAILY@219901/12/16 Senna/Docusate Sodium [Senokot-S] 1 tablet PO BID@0800,2200 01/12/16 Carvedilol [Coreg] 3.125 mg PO DAILY@1700 11/10/16 Duloxetine Hcl [Cymbalta] 60 mg PO DAILY@169911/10/16 Furosemide [Lasix] 40 mg PO DAILY@2200 11/10/16 Magnesium Oxide [Magnesium] 500 mg PO BID@0800,2200 11/10/16 Riboflavin [Vitamin B2] 200 mg PO DAILY@17011/10/16 Smz/Tmp Ds [Bactrim Ds] 1 tablet PO DAILY@0800 11/10/16 Acetaminophen [Tylenol Tablet] 650 mg PO Q6H PRN PRN #0 tablet 11/14/16 Hydrocodone/Acetaminophen 1 each PO BID@1700,2199 #60 tablet 11/14/16 [Hydrocodon-Acetaminophn 10-325] Ibuprofen [Motrin] 200 mg PO Q6H PRN #0 tablet 11/14/16 MorphINE [Ms Contin] 30 mg PO TID@0800,1600,2199 #60 11/14/16 tablet Oxymetazoline 0.05% [Afrin (BKC)] 2 spray NASAL Q12H PRN PRN #1 11/14/16 spray.btl Hydrocortisone 20 mg PO TID 01/28/18 Metformin HCl [Glucophage] 500 mg PO BIDCM 01/28/18 - Social History SMOKING STATUS:: Never smoker Vital Signs Temp Pulse Resp BP Pulse Ox 98.6 F 70 16 146/81 H 96 01/29/18 07:54 01/29/18 07:54 01/29/18 07:54 01/29/18 07:54 01/29/18 07:54 Oxygen Delivery Method Room Air Weight: 76.912 kg Body Mass Index (BMI) 24.3 Laboratory Tests Past 24 Hrs 01/28/18 01/28/18 17:00 17:15 Urine Color Yellow Urine Clarity Clear Urine pH 7.0 Ur Specific [place] 1.010 Urine Protein 15 H Urine Glucose (UA) Normal Urine Ketones Negative Urine Occult Blood Negative Urine Nitrite Negative Urine Bilirubin Negative Urine Urobilinogen Normal Ur Leukocyte Esterase 100 H Urine RBC 0 SEEN Urine WBC 0-5 SEEN Ur Squamous Epith Cells 0 SEEN Urine Bacteria 0 SEEN Urine Mucus 0 SEEN S.aureus Protein A PCR NEGATIVE MRSA (PCR) Negative - Other Studies Radiology: [] reviewed Other Studies: [] Route of nutrition/ use of supplements: [] Nutritional Intake: [] IV Site: [] Wheeler Catheter: [] - Physical Exam General: Alert, Oriented x3, Cooperative, No apparent distress HEENT: Atraumatic, PERRLA, EOMI Neck: Supple, No Nodes Lungs: Clear to auscultation, Normal air movement Cardiovascular: Regular rate, Regular Rhythm, No murmurs Abdomen: Bowel Sounds Present, Soft, Non Tender, Non-Distended Extremities: Edema - mild LLE Skin: Rash Present - diffuse lower LLE redness, mild warmth/pain. Small area of cracking between toes 1-2. 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 Possible source is tinea pedis, on clotrimazole topical now. Much better on vanc/levaquin. Should be able to go home in next few days on po abx. Staph aureus pcr neg, other cxs are pending. h/o nocardia - continue suppressive bactim indefinitely Thank you, will follow, d/w Dr. Galeas. I gave the pt my card.
--- NOTE | 2018-01-29 11:47 | CON.PCM_ITS ---
Problem List (1) Cellulitis of left lower extremity Status: Acute Reason for Consult: cellulitis Consulted by: Dr. 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 No recent trauma to foot. Leg does have decreased sensation. No drainage. Has been compliant with bactrim. Came to [facility], started on vanc/ levaquin, and bactrim was continued. Pain much improved, redness slightly better. Prior infectious disease provider was Dr. Rosas in [place]. Full ROS Performed and neg except as noted above. 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 Allergies/Adverse Reactions: Allergies Cephalosporins Allergy (Intermediate, Verified 11/10/16 18:54) Laryngospasms Penicillins Allergy (Intermediate, Verified 01/08/14 13:27) Rash IVP DYE Allergy (Uncoded 09/01/14 09:52) Rash Home Medications: Ambulatory Orders Medication Instructions Recorded Gabapentin [Neurontin] 600 mg PO TID@0800,1700,220 #90 09/18/14 capsule Ketoconazole [Nizoral Cream] 1 applic TOPICAL PRN PRN #14 09/18/14 Multivitamins,Ther W-Minerals 1 tablet PO DAILY@170 #30 tablet 09/18/14 [Multivitamin With Minerals] Pyridoxine HCl [Vitamin B-6] 100 mg PO DAILY@1700 #30 tablet 09/18/14 Isosorbide Dinitrate [Isordil] 5 mg PO DAILY@219901/12/16 Losartan Potassium [Cozaar] 12.5 mg PO DAILY@219901/12/16 Senna/Docusate Sodium [Senokot-S] 1 tablet PO BID@0800,2200 01/12/16 Carvedilol [Coreg] 3.125 mg PO DAILY@1700 11/10/16 Duloxetine Hcl [Cymbalta] 60 mg PO DAILY@169911/10/16 Furosemide [Lasix] 40 mg PO DAILY@2200 11/10/16 Magnesium Oxide [Magnesium] 500 mg PO BID@0800,2200 11/10/16 Riboflavin [Vitamin B2] 200 mg PO DAILY@17011/10/16 Smz/Tmp Ds [Bactrim Ds] 1 tablet PO DAILY@0800 11/10/16 Acetaminophen [Tylenol Tablet] 650 mg PO Q6H PRN PRN #0 tablet 11/14/16 Hydrocodone/Acetaminophen 1 each PO BID@1700,2199 #60 tablet 11/14/16 [Hydrocodon-Acetaminophn 10-325] Ibuprofen [Motrin] 200 mg PO Q6H PRN #0 tablet 11/14/16 MorphINE [Ms Contin] 30 mg PO TID@0800,1600,2199 #60 11/14/16 tablet Oxymetazoline 0.05% [Afrin (BKC)] 2 spray NASAL Q12H PRN PRN #1 11/14/16 spray.btl Hydrocortisone 20 mg PO TID 01/28/18 Metformin HCl [Glucophage] 500 mg PO BIDCM 01/28/18 - Social History SMOKING STATUS:: Never smoker Vital Signs Temp Pulse Resp BP Pulse Ox 98.6 F 70 16 146/81 H 96 01/29/18 07:54 01/29/18 07:54 01/29/18 07:54 01/29/18 07:54 01/29/18 07:54 Oxygen Delivery Method Room Air Weight: 76.912 kg Body Mass Index (BMI) 24.3 Laboratory Tests Past 24 Hrs 01/28/18 01/28/18 17:00 17:15 Urine Color Yellow Urine Clarity Clear Urine pH 7.0 Ur Specific [place] 1.010 Urine Protein 15 H Urine Glucose (UA) Normal Urine Ketones Negative Urine Occult Blood Negative Urine Nitrite Negative Urine Bilirubin Negative Urine Urobilinogen Normal Ur Leukocyte Esterase 100 H Urine RBC 0 SEEN Urine WBC 0-5 SEEN Ur Squamous Epith Cells 0 SEEN Urine Bacteria 0 SEEN Urine Mucus 0 SEEN S.aureus Protein A PCR NEGATIVE MRSA (PCR) Negative - Other Studies Radiology: [] reviewed Other Studies: [] Route of nutrition/ use of supplements: [] Nutritional Intake: [] IV Site: [] Wheeler Catheter: [] - Physical Exam General: Alert, Oriented x3, Cooperative, No apparent distress HEENT: Atraumatic, PERRLA, EOMI Neck: Supple, No Nodes Lungs: Clear to auscultation, Normal air movement Cardiovascular: Regular rate, Regular Rhythm, No murmurs Abdomen: Bowel Sounds Present, Soft, Non Tender, Non-Distended Extremities: Edema - mild LLE Skin: Rash Present - diffuse lower LLE redness, mild warmth/pain. Small area of cracking between toes 1-2. 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 Possible source is tinea pedis, on clotrimazole topical now. Much better on vanc/levaquin. Should be able to go home in next few days on po abx. Staph aureus pcr neg, other cxs are pending. h/o nocardia - continue suppressive bactim indefinitely Thank you, will follow, d/w Dr. Galeas. I gave the pt my card.
--- NOTE | 2018-01-29 12:36 | CASEMGMT ---
RN LACI Face to Face with patient for initial transition planning/care coordination assessment. RN CM introduced self and role at [facility]. Patient lying in bed, alert and oriented, at bedside. Patient willing to participate in assessment and is able to answer all questions appropriately. Care providers, pharmacy, and demographics verified. See link attached. Patient wishes to discharge home, denies need for home health at this time. Patient states he has no further needs or concerns at this time. CM to follow for discharge planning needs that may arise. Disposition Plan: Patient to discharge home with family support and follow-up plans in place.
[2018-01-29 13:43] VITALS: BP 148/71; PULSE 76; RESP 16; TEMP 37.4; O2SAT 95
--- NOTE | 2018-01-29 15:02 | CHAPLAIN ---
Type of Pastoral Visit _x__ Initial Visit ___ Follow-up Visit ___ On-call Visit ___ General Patient Visit ___ Spiritual Assessment ___ Family Conference ___ Bereavement ___ Rapid Response ___ Code Blue ___ Other (describe below) Pastoral Care Referral From _x__ Patient ___ Family ___ Nurse ___ Physician ___ Project Inspector ___ Chicken Vaccinator ___ Other (describe below) Sacrament/Intervention _x__ Active listening ___ Anointing ___ Mormon ___ Bereavement ___ Communion _x__ Roseann exploration ___ _x__ Life review _x__ Prayer ___ Reconciliation ___ Sacrament of Sick ___ Supportive presence ___ Wedding ___ Other (describe below) Pastoral Comments
[2018-01-29] MEDS: Carvedilol 3.125 MG TABLET PO (16:07)
[2018-01-29] MEDS: DULoxetine Hcl 60 MG Capsule PO (16:08)
[2018-01-29 16:16] LABS: Bedside Glucose 143 mg/dL (70-110)
[2018-01-29] MEDS: levoFLOXacin 500 MG Tablet PO (17:21)
[2018-01-29] MEDS: Multivitamins,Ther W-Minerals Tablet 1 TABLET PO (17:22)
[2018-01-29] MEDS: Pyridoxine HCl 100 MG Tablet PO (17:25)
[2018-01-29] MEDS: HYDROcodone Bitartrate/Apap 5/325 Tablet PO (17:28)
[2018-01-29 20:00] VITALS: BP 163/68; PULSE 73; RESP 18; TEMP 36.9; O2SAT 98
[2018-01-29] MEDS: Isosorbide DN 10 MG Tablet PO (21:56)
[2018-01-29] MEDS: Losartan Potassium 25 MG Tablet 12.5 MG PO (21:56)
[2018-01-29] MEDS: Furosemide 40 MG Tablet PO (21:56)
--- NOTE | 2018-01-30 00:13 | NURSING ---
When over all medications and doses with pt. pt upset about doses of medication not being what he takes at home. pt refused to take norco and magnesium and took home medication dose instead. This RN attempted to educate pt on not take home medications and would speak with the hospitalist about changing doses. pt stated I'll take my home meds and you can change it later. This RN will address pt concerns with hospitalist.
[2018-01-30 00:20] LABS: Bedside Glucose 136 mg/dL (70-110)
[2018-01-30 02:00] VITALS: BP 180/57; PULSE 80; RESP 18; TEMP 36.9; O2SAT 96
[2018-01-30 08:41] LABS: Bedside Glucose 94 mg/dL (70-110)
[2018-01-30] MEDS: MAGNESIUM 250 MG TABLET 500 MG PO ×2 (08:41→22:24)
[2018-01-30] MEDS: Gabapentin 300 MG Capsule 600 MG PO ×3 (08:41→22:23)
[2018-01-30] MEDS: Smz/Tmp Ds Tablet 1 TABLET PO (08:42)
[2018-01-30] MEDS: Senna/Docusate Sodium 1 Tablet PO ×2 (08:45→18:04)
[2018-01-30] MEDS: Hydrocortisone 10 MG Tablet 20 MG PO ×2 (08:46→18:00)
[2018-01-30] MEDS: Sodium Chloride 0.65% 1 SPRAY SPRAY.BTL 2 SPRAY NASAL (08:48)
[2018-01-30] MEDS: 0.9% NaCl Peripheral Flush Adult/Peds IV ×2 (09:00→09:06)
[2018-01-30 09:11] VITALS: BP 159/75; PULSE 79; RESP 16; TEMP 36.7; O2SAT 99
--- NOTE | 2018-01-30 09:12 | PCM.PN.HOSP ---
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 Patient still with redness of his left leg as well. Vitals/I&O's: Vital Signs Temp Pulse Resp BP Pulse Ox 36.7 C 79 16 159/75 H 99 01/30/18 09:11 01/30/18 09:11 01/30/18 09:11 01/30/18 09:11 01/30/18 09:11 Oxygen Delivery Method Room Air Weight: 76.912 kg Body Mass Index (BMI) 24.3 Intake and Output for Last 24 Hours 01/28/18 01/29/18 01/30/18 23:59 23:59 23:59 Intake Total 2090 / 2090 2248 / 2248 Output Total 140 / 140 2750 / 2750 400 / 400 Balance -140 / -140 -660 / -660 1848 / 1848 General: Alert, Cooperative, No apparent distress HEENT: Atraumatic, Normocephalic Extremities: Edema - 2+ left lower extremity, - - Still with erythema and swelling of the left lower extremity. No tenderness to palpation. Skin: Rash Present - Erythema bright red of the left lower extremity Musculoskeletal: No Tenderness to Palpation of Joints or Extremities, No Muscle Wasting Neurological: - - Sensation diminished. Psych/Mental Status: Normal Affect, Appropriate Microbiology Past 72 Hours 01/28/18 17:00 Wound - Aerobic & Anaerobic Swabs Gram Stain - Final 01/28/18 17:00 Wound - Aerobic & Anaerobic Swabs Wound Culture - Preliminary GNR Poss Pseudomonas sp 01/28/18 17:15 Urine, Catheterized Urine Culture - Preliminary GPC Poss Enterococcus sp Laboratory Results 01/29/18 11:09: POC Glucose 172 H 01/29/18 16:03: POC Glucose 143 H 01/29/18 21:55: POC Glucose 136 H 01/30/18 08:32: POC Glucose 94 Current Medications Acetaminophen (Tylenol) 650 mg PO Q6H PRN PRN PRN Reason: Mild Pain (scale 0-3)/T>100.7 Hydrocodone Bitart/Acetaminophen ([place] 5mg-325mg) 2 tablet PO BID@1800,2200 JULIO Carvedilol (Coreg) 3.125 mg PO DAILY@1700 [facility] Last Admin: 01/29/18 16:07 Dose: 3.125 mg Clotrimazole (Lotrimin) 1 applicatio TOPICAL BID@0800,1800 [facility] PRN Reason: Protocol Last Admin: 01/30/18 08:44 Dose: 1 applicatio Dextrose (D50w Syringe) 0 gm IV X1 PRN; Protocol PRN Reason: Hypoglycemia Duloxetine HCl (Cymbalta) 60 mg PO DAILY@1700 [facility] Last Admin: 01/29/18 16:08 Dose: 60 mg Furosemide (Lasix) 40 mg PO DAILY@2200 [facility] Last Admin: 01/29/18 21:56 Dose: 40 mg Gabapentin (Neurontin) 600 mg PO TID@0800,1800,2200 [facility] Last Admin: 01/30/18 08:41 Dose: 600 mg Glucagon () 1 mg IM .X1 PRN PRN Reason: Hypoglycemia Hydrocortisone (Cortef) 20 mg PO 0800,1800 [facility] Last Admin: 01/30/18 08:46 Dose: 20 mg Vancomycin HCl 750 mg/ Sodium (Chloride) 265 mls @ 265 mls/hr IV Q12H [facility] Last Admin: 01/29/18 21:55 Dose: 265 mls/hr Insulin Aspart (Novolog Flexpen (Bkc)) 0 units SC ACHS [facility] PRN Reason: Protocol Last Admin: 01/30/18 08:33 Dose: Not Given Isosorbide Dinitrate (Isordil) 5 mg PO DAILY@2200 [facility] Levofloxacin (Levaquin) 500 mg PO DAILY@1800 [facility] Last Admin: 01/29/18 17:21 Dose: 500 mg Losartan Potassium (Cozaar) 12.5 mg PO DAILY@2200 [facility] Last Admin: 01/29/18 21:56 Dose: 12.5 mg Magnesium (Magnesium) 500 mg PO BID@0800,2200 [facility] Last Admin: 01/30/18 08:41 Dose: 500 mg Metformin HCl (Glucophage) 500 mg PO BID@0800,1800 [facility] Last Admin: 01/30/18 08:39 Dose: 500 mg Morphine Sulfate (Ms Contin) 30 mg PO BID@0800,2200 [facility] Last Admin: 01/30/18 08:38 Dose: 30 mg Multi-Ingredient Cream (Eucerin) 1 applic TOPICAL BID [facility] PRN Reason: Protocol Last Admin: 01/30/18 08:43 Dose: 1 applicatio Multivitamins/Minerals (Multivitamin With Minerals) 1 tablet PO 1800 [facility] Last Admin: 01/29/18 17:22 Dose: 1 tablet Pyridoxine HCl (Vitamin B-6) 100 mg PO 1800 [facility] Last Admin: 01/29/18 17:25 Dose: 100 mg Senna/Docusate Sodium (Senokot-S, Denisse-Colace) 1 tablet PO BID@0800,1800 [facility] Last Admin: 01/30/18 08:45 Dose: 1 tablet Sodium Chloride () 5 - 30 ml IV UD PRN PRN Reason: SALINE FLUSH Last Admin: 01/30/18 09:06 Dose: 10 ml Sodium Chloride ([place] Nasal [place]) 2 spray NASAL TID PRN PRN PRN Reason: NASAL DRYNESS Last Admin: 01/30/18 08:48 Dose: 2 spray Trimethoprim/Sulfamethoxazole (Bactrim Ds) 1 tablet PO DAILY@0800 [facility] Last Admin: 01/30/18 08:42 Dose: 1 tablet Assessment/Plan Active and Suspected Problems Cellulitis of left lower extremity (Acute) Macrocytic anemia (Acute) Thrombocytopenia (Acute) 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 Left lower extremity cellulitis Patient noting that it is improved from yesterday and that he is overall feeling better. Continue with vancomycin and Levaquin Appreciate infectious disease input Serology for staph and MRSA are negative Blood cultures pending Wound culture showing possible Pseudomonas. 2. History of Nocardia On chronic Bactrim Follow-up infectious disease outpatient 3. History of syrinx Patient said that it is very confluent from C5 down to his thoracic vertebrae. Has been told that he will eventually to further paralysis and may be cessation of breathing. Patient is on hydrocortisone to help with edema associated with this. Patient states that this is been initiated through his primary care provider and patient states that he has no illusions that this is going to fix his syrinx. 4. DVT prophylaxis Given the patient's history of subarachnoid hemorrhage and blood noted on repeat LPs the patient has had in the past for his history of venous thromboembolic disease, skin order a right leg SCD. Chemical prophylaxis he feels contraindicated given his history and also would avoid a left lower extremity SCD given his left leg cellulitis. Code Visit Inpatient E&M: 06239 Subs Hosp L2
--- NOTE | 2018-01-30 09:15 | PN_ITS ---
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 Patient still with redness of his left leg as well. Vitals/I&O's: Vital Signs Temp Pulse Resp BP Pulse Ox 36.7 C 79 16 159/75 H 99 01/30/18 09:11 01/30/18 09:11 01/30/18 09:11 01/30/18 09:11 01/30/18 09:11 Oxygen Delivery Method Room Air Weight: 76.912 kg Body Mass Index (BMI) 24.3 Intake and Output for Last 24 Hours 01/28/18 01/29/18 01/30/18 23:59 23:59 23:59 Intake Total 2090 / 2090 2248 / 2248 Output Total 140 / 140 2750 / 2750 400 / 400 Balance -140 / -140 -660 / -660 1848 / 1848 General: Alert, Cooperative, No apparent distress HEENT: Atraumatic, Normocephalic Extremities: Edema - 2+ left lower extremity, - - Still with erythema and swelling of the left lower extremity. No tenderness to palpation. Skin: Rash Present - Erythema bright red of the left lower extremity Musculoskeletal: No Tenderness to Palpation of Joints or Extremities, No Muscle Wasting Neurological: - - Sensation diminished. Psych/Mental Status: Normal Affect, Appropriate Microbiology Past 72 Hours 01/28/18 17:00 Wound - Aerobic & Anaerobic Swabs Gram Stain - Final 01/28/18 17:00 Wound - Aerobic & Anaerobic Swabs Wound Culture - Preliminary GNR Poss Pseudomonas sp 01/28/18 17:15 Urine, Catheterized Urine Culture - Preliminary GPC Poss Enterococcus sp Laboratory Results 01/29/18 11:09: POC Glucose 172 H 01/29/18 16:03: POC Glucose 143 H 01/29/18 21:55: POC Glucose 136 H 01/30/18 08:32: POC Glucose 94 Current Medications Acetaminophen (Tylenol) 650 mg PO Q6H PRN PRN PRN Reason: Mild Pain (scale 0-3)/T>100.7 Hydrocodone Bitart/Acetaminophen ([place] 5mg-325mg) 2 tablet PO BID@1800,2200 JULIO Carvedilol (Coreg) 3.125 mg PO DAILY@1700 [facility] Last Admin: 01/29/18 16:07 Dose: 3.125 mg Clotrimazole (Lotrimin) 1 applicatio TOPICAL BID@0800,1800 [facility] PRN Reason: Protocol Last Admin: 01/30/18 08:44 Dose: 1 applicatio Dextrose (D50w Syringe) 0 gm IV X1 PRN; Protocol PRN Reason: Hypoglycemia Duloxetine HCl (Cymbalta) 60 mg PO DAILY@1700 [facility] Last Admin: 01/29/18 16:08 Dose: 60 mg Furosemide (Lasix) 40 mg PO DAILY@2200 [facility] Last Admin: 01/29/18 21:56 Dose: 40 mg Gabapentin (Neurontin) 600 mg PO TID@0800,1800,2200 [facility] Last Admin: 01/30/18 08:41 Dose: 600 mg Glucagon () 1 mg IM .X1 PRN PRN Reason: Hypoglycemia Hydrocortisone (Cortef) 20 mg PO 0800,1800 [facility] Last Admin: 01/30/18 08:46 Dose: 20 mg Vancomycin HCl 750 mg/ Sodium (Chloride) 265 mls @ 265 mls/hr IV Q12H [facility] Last Admin: 01/29/18 21:55 Dose: 265 mls/hr Insulin Aspart (Novolog Flexpen (Bkc)) 0 units SC ACHS [facility] PRN Reason: Protocol Last Admin: 01/30/18 08:33 Dose: Not Given Isosorbide Dinitrate (Isordil) 5 mg PO DAILY@2200 [facility] Levofloxacin (Levaquin) 500 mg PO DAILY@1800 [facility] Last Admin: 01/29/18 17:21 Dose: 500 mg Losartan Potassium (Cozaar) 12.5 mg PO DAILY@2200 [facility] Last Admin: 01/29/18 21:56 Dose: 12.5 mg Magnesium (Magnesium) 500 mg PO BID@0800,2200 [facility] Last Admin: 01/30/18 08:41 Dose: 500 mg Metformin HCl (Glucophage) 500 mg PO BID@0800,1800 [facility] Last Admin: 01/30/18 08:39 Dose: 500 mg Morphine Sulfate (Ms Contin) 30 mg PO BID@0800,2200 [facility] Last Admin: 01/30/18 08:38 Dose: 30 mg Multi-Ingredient Cream (Eucerin) 1 applic TOPICAL BID [facility] PRN Reason: Protocol Last Admin: 01/30/18 08:43 Dose: 1 applicatio Multivitamins/Minerals (Multivitamin With Minerals) 1 tablet PO 1800 [facility] Last Admin: 01/29/18 17:22 Dose: 1 tablet Pyridoxine HCl (Vitamin B-6) 100 mg PO 1800 [facility] Last Admin: 01/29/18 17:25 Dose: 100 mg Senna/Docusate Sodium (Senokot-S, Denisse-Colace) 1 tablet PO BID@0800,1800 [facility] Last Admin: 01/30/18 08:45 Dose: 1 tablet Sodium Chloride () 5 - 30 ml IV UD PRN PRN Reason: SALINE FLUSH Last Admin: 01/30/18 09:06 Dose: 10 ml Sodium Chloride ([place] Nasal [place]) 2 spray NASAL TID PRN PRN PRN Reason: NASAL DRYNESS Last Admin: 01/30/18 08:48 Dose: 2 spray Trimethoprim/Sulfamethoxazole (Bactrim Ds) 1 tablet PO DAILY@0800 [facility] Last Admin: 01/30/18 08:42 Dose: 1 tablet Assessment/Plan Active and Suspected Problems Cellulitis of left lower extremity (Acute) Macrocytic anemia (Acute) Thrombocytopenia (Acute) 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 Left lower extremity cellulitis * Patient noting that it is improved from yesterday and that he is overall feeling better. * Continue with vancomycin and Levaquin * Appreciate infectious disease input * Serology for staph and MRSA are negative * Blood cultures pending * Wound culture showing possible Pseudomonas. 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 History of syrinx * Patient said that it is very confluent from C5 down to his thoracic vertebrae. Has been told that he will eventually to further paralysis and may be cessation of breathing. * Patient is on hydrocortisone to help with edema associated with this. Patient states that this is been initiated through his primary care provider and patient states that he has no illusions that this is going to fix his syrinx. 4. DVT prophylaxis * Given the patient's history of subarachnoid hemorrhage and blood noted on repeat LPs the patient has had in the past for his history of venous thromboembolic disease, skin order a right leg SCD. Chemical prophylaxis he feels contraindicated given his history and also would avoid a left lower extremity SCD given his left leg cellulitis. Code Visit Inpatient E&M: 65001 Subs Hosp L2
--- NOTE | 2018-01-30 10:34 | PCM.RX.CS ---
Subjective/Objective Date: 01/30/18 Time: 10:34 Antibiotic: Vancomycin Type of Consult: New start Indications for Therapy: Cellulitis Labs: Sodium 135 mmol/L (136-145) L 01/28/18 12:30 Potassium 4.2 mmol/L (3.5-5.1) 01/28/18 12:30 Chloride 98 mmol/L (98-107) 01/28/18 12:30 Carbon Dioxide 34.0 mmol/L (21.0-32.0) H 01/28/18 12:30 Anion Gap 3 (5-15) L 01/28/18 12:30 BUN 21 mg/dL (7-18) H 01/28/18 12:30 Creatinine 0.89 mg/dL (0.70-1.30) 01/28/18 12:30 Est GFR (MDRD) Af Amer 106 mL/min (>60) 01/28/18 12:30 Est GFR (MDRD) Non-Af 88 mL/min (>60) 01/28/18 12:30 BUN/Creatinine Ratio 23.7 RATIO (10-20) H 01/28/18 12:30 Glucose 110 mg/dL (74-106) H 01/28/18 12:30 Estimated Creatinine Clearance: 60-70ml\min Pharmacy Plan for Drug Dosing: Recommend trough of 10-15. Initial dose 01/28/18 at 1700 was 1250mg. Started on maintenance dose of 750mg Q12h 01/29/18 at 10 and 22. Est trough of 13mcg/ml. Recommend to check trough 01/30/18 at 2200. Pharmacy Service will continue to monitor and adjust dosing as required.
--- NOTE | 2018-01-30 11:28 | PCM.PN.ID ---
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 No n/v/d. - Physical Exam General: Alert, Oriented x3, Cooperative Lungs: Clear to auscultation, Normal air movement Cardiovascular: Regular rate, Regular Rhythm Abdomen: Soft, Non Tender, Non-Distended Extremities: Edema - mild LLE Skin: Rash Present - fading erythema on LLE Vital Signs Temp Pulse Resp BP Pulse Ox 98.1 F 79 16 159/75 H 99 01/30/18 09:11 01/30/18 09:11 01/30/18 09:11 01/30/18 09:11 01/30/18 09:11 Oxygen Delivery Method Room Air Weight: 76.912 kg Body Mass Index (BMI) 24.3 Intake and Output for Last 24 Hours 01/28/18 01/29/18 01/30/18 23:59 23:59 23:59 Intake Total 2090 / 2090 2248 / 2248 Output Total 140 / 140 2750 / 2750 400 / 400 Balance -140 / -140 -660 / -660 1848 / 1848 Microbiology Past 72 Hours 01/28/18 17:00 Gram Stain - Final Wound - Aerobic & Anaerobic Swabs Wound Culture - Preliminary GNR Poss Pseudomonas sp 01/28/18 17:15 Urine Culture - Preliminary Urine, Catheterized GPC Poss Enterococcus sp POC Glucose 01/30/18 01/29/18 01/29/18 08:32 21:55 16:03 POC Glucose 94 136 H 143 H Route of nutrition/ use of supplements: [] Nutritional Intake: [] IV Site: [] Wheeler Catheter: [] - Assessment/Plan Antibiotics: [] Assessment/Plan: [] Active and Suspected Problems Cellulitis of left lower extremity (Acute) Macrocytic anemia (Acute) Thrombocytopenia (Acute) 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 Possible source is tinea pedis, on clotrimazole topical now. Much better on vanc/levaquin. Should be able to go home in next few days on po abx. Staph aureus pcr neg. Ucx with enterococcus-like. Wound swab with pseudomonas. h/o nocardia - continue suppressive bactim indefinitely will follow
[2018-01-30 11:51] LABS: Bedside Glucose 133 mg/dL (70-110)
[2018-01-30 15:11] VITALS: BP 159/63; PULSE 82; RESP 18; TEMP 36.8; O2SAT 99
[2018-01-30 16:26] LABS: Bedside Glucose 140 mg/dL (70-110)
[2018-01-30] MEDS: DULoxetine Hcl 60 MG Capsule PO (17:58)
[2018-01-30] MEDS: Carvedilol 3.125 MG TABLET PO (17:58)
[2018-01-30] MEDS: levoFLOXacin 500 MG Tablet PO (18:01)
[2018-01-30] MEDS: Multivitamins,Ther W-Minerals Tablet 1 TABLET PO (18:02)
[2018-01-30] MEDS: HYDROcodone Bitartrate/Apap 5/325 Tablet PO ×2 (18:03→22:23)
[2018-01-30] MEDS: Pyridoxine HCl 100 MG Tablet PO (18:04)
[2018-01-30 21:57] VITALS: BP 184/83; PULSE 75; RESP 18; TEMP 37.4; O2SAT 97
[2018-01-30] MEDS: Isosorbide DN 10 MG Tablet 5 MG PO (22:23)
[2018-01-30] MEDS: Furosemide 40 MG Tablet PO (22:23)
[2018-01-30] MEDS: Losartan Potassium 25 MG Tablet 12.5 MG PO (22:23)
[2018-01-30 22:45] LABS: Bedside Glucose 168 mg/dL (70-110)
[2018-01-30 22:46] LABS: Vancomycin, Trough Level 8.8 ug/mL (5.0-15.0)
[2018-01-31 02:27] VITALS: BP 161/75; PULSE 72; RESP 18; TEMP 36.7; O2SAT 95
--- NOTE | 2018-01-31 06:46 | PCM.PN.ID ---
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 No diarrhea. - Physical Exam General: Alert, Cooperative, No apparent distress Lungs: Clear to auscultation, Normal air movement Cardiovascular: Regular rate, Regular Rhythm Abdomen: Soft, Non Tender, Non-Distended Skin: - - LLE redness, decreasing over armas. No drainage. No tenderness. Foot still red. Vital Signs Temp Pulse Resp BP Pulse Ox 98.0 F 72 18 161/75 H 95 01/31/18 02:27 01/31/18 02:27 01/31/18 02:27 01/31/18 02:27 01/31/18 02:27 Oxygen Delivery Method Room Air Weight: 76.912 kg Body Mass Index (BMI) 24.3 Intake and Output for Last 24 Hours 01/29/18 01/30/18 01/31/18 23:59 23:59 23:59 Intake Total 2090 / 2090 2248 / 2248 Output Total 2750 / 2750 2100 / 2100 Balance -660 / -660 148 / 148 Microbiology Past 72 Hours 01/28/18 17:00 Gram Stain - Final Wound - Aerobic & Anaerobic Swabs Wound Culture - Preliminary GNR Poss Pseudomonas sp 01/28/18 17:15 Urine Culture - Preliminary Urine, Catheterized GPC Poss Enterococcus sp Laboratory Tests Past 24 Hrs 01/30/18 22:00 Vancomycin Trough 8.8 POC Glucose 01/30/18 01/30/18 01/30/18 22:20 16:18 11:44 POC Glucose 168 H 140 H 133 H 01/30/18 08:32 POC Glucose 94 Route of nutrition/ use of supplements: [] Nutritional Intake: [] IV Site: [] Wheeler Catheter: [] - Assessment/Plan Antibiotics: [] Assessment/Plan: [] Active and Suspected Problems Cellulitis of left lower extremity (Acute) Macrocytic anemia (Acute) Thrombocytopenia (Acute) 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 Possible source is tinea pedis, on clotrimazole topical now. Much better on vanc/levaquin. Should be able to go home soon on po abx. Staph aureus pcr neg. Ucx with enterococcus-like. Wound swab with pseudomonas-like. If this is a susceptible PsA, plan for d/c home would be 7 more days of levaquin 500mg qday po and doxy 100mg bid po. h/o nocardia - continue suppressive bactim indefinitely will follow
[2018-01-31 07:16] LABS: Bedside Glucose 83 mg/dL (70-110)
[2018-01-31 08:35] LABS: Absolute Lymphocyte Count 1.27 X10^3/ul (0.83-4.51); Absolute Neutrophil Count 4.7 X10^3/uL (2.0-7.7); Basophil# 0.01 X10^3/uL; Basophil% 0.2 % (0-1); Eosinophil# 0.06 X10^3/uL; Eosinophils% 0.9 % (0-5); Hematocrit 36.5 % (40-54); Hemoglobin 11.8 g/dl (13.0-16.5); Lymphocyte # 1.27 X10^3/ul (4.0); Lymphocyte % 19.3 % (19-41); Mean Corp Hgb Conc 32.3 g/gl (32-36); Mean Corpuscular Hgb 32.3 pg (27.0-32.0); Mean Platelet Vol. 9.5 fl (6.2-12.0); Monocyte# 0.55 X10^3/uL; Monocyte% 8.4 % (0-10); Neutrophil # 4.67 X10^3/uL (2.7-7.7); Neutrophil % 70.9 % (47-70); Platelet Count 152 K/mm3 (150-450); RBC Distribution Width CV 13.1 % (11.6-14.6); RBC Distribution Width SD 48.2 fl (35.1-43.9); Red Blood Count 3.65 M/mm3 (4.6-6.2); White Blood Count 6.6 K/mm3 (4.4-11.0)
[2018-01-31 08:36] LABS: POSITIVE COUNT NO; POSITIVE DIFFERENTIAL NO; POSITIVE MORPHOLOGY NO
[2018-01-31 08:48] LABS: Anion Gap 4 (5-15); BUN 14 mg/dL (7-18); BUN/Creat Ratio 21.3 RATIO (10-20); Calcium,Total 8.5 mg/dL (8.5-10.1); Chloride 105 mmol/L (98-107); Creatinine, Serum 0.66 mg/dL (0.70-1.30); EST Glomerular Filtration Rate 124 mL/min (>60); Est Glom Filt Rate - Afr Amer 150 mL/min (>60); Estimated Creatinine Clearance 60.83 ml/min; Glucose 89 mg/dL (74-106); Potassium 3.4 mmol/L (3.5-5.1); Sodium Level 141 mmol/L (136-145)
[2018-01-31] MEDS: Smz/Tmp Ds Tablet 1 TABLET PO (08:49)
[2018-01-31] MEDS: MAGNESIUM 250 MG TABLET 500 MG PO (08:50)
[2018-01-31] MEDS: Gabapentin 300 MG Capsule 600 MG PO (08:51)
[2018-01-31] MEDS: Hydrocortisone 10 MG Tablet 20 MG PO (08:51)
[2018-01-31] MEDS: 0.9% NaCl Peripheral Flush Adult/Peds IV (08:59)
[2018-01-31 09:09] VITALS: BP 162/74; PULSE 74; RESP 18; TEMP 36.6; O2SAT 98
--- NOTE | 2018-01-31 09:36 | PCM.RX.CS ---
Subjective/Objective Date: 01/31/18 Time: 09:36 Antibiotic: Vancomycin Type of Consult: Follow-up Indications for Therapy: LLE CELLULITIS Labs: Sodium 141 mmol/L (136-145) 01/31/18 08:18 Potassium 3.4 mmol/L (3.5-5.1) L 01/31/18 08:18 Chloride 105 mmol/L (98-107) 01/31/18 08:18 Carbon Dioxide 32.0 mmol/L (21.0-32.0) 01/31/18 08:18 Anion Gap 4 (5-15) L 01/31/18 08:18 BUN 14 mg/dL (7-18) 01/31/18 08:18 Creatinine 0.66 mg/dL (0.70-1.30) L 01/31/18 08:18 Est GFR (MDRD) Af Amer 150 mL/min (>60) 01/31/18 08:18 Est GFR (MDRD) Non-Af 124 mL/min (>60) 01/31/18 08:18 BUN/Creatinine Ratio 21.3 RATIO (10-20) H 01/31/18 08:18 Glucose 89 mg/dL (74-106) 01/31/18 08:18 Vancomycin Trough 8.8 ug/mL (5.0-15.0) 01/30/18 22:00 Estimated Creatinine Clearance: 60 ML/MIN Pharmacy Plan for Drug Dosing: Pharmacy Service will continue to monitor and adjust dosing as required. Assessment/Plan: ASSESSMENT Pharmacy to manage vancomycin per consultation for treatment OF LLE Cellulitis. The patient's Micro shows UCx with enterococcus and a WCx with pseudomonas. Patient is currently improving on a regimen of Levaquin/vancomycin per ID consult note. The patient's trough resulted in a value of 8.8, which was drawn 12hrs from last dose given (appropriate lab draw). Per ID note, the plan is to transition the patient to oral antibiotics upon discharge. Since the patient is improving on current regimen, will not plan to adjust vancomycin at this time. PLAN/RECOMMENDATIONS 1. Continue vancomycin 750mg IV Q12hrs 2. Pharmacy will continue to monitor patient on a daily basis 3. Will not order an additional trough at this time, but will order one if needed/appropriate based on clinical status
--- NOTE | 2018-01-31 10:43 | PCM.PN.HOSP ---
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 Patient was able to pivot to the wheelchair without assistance today. Vitals/I&O's: Vital Signs Temp Pulse Resp BP Pulse Ox 36.6 C 74 18 162/74 H 98 01/31/18 09:09 01/31/18 09:09 01/31/18 09:09 01/31/18 09:09 01/31/18 09:09 Oxygen Delivery Method Room Air Weight: 76.912 kg Body Mass Index (BMI) 24.3 Intake and Output for Last 24 Hours 01/29/18 01/30/18 01/31/18 23:59 23:59 23:59 Intake Total 2090 / 2090 2248 / 2248 1104 / 1104 Output Total 2750 / 2750 2100 / 2100 750 / 750 Balance -660 / -660 148 / 148 354 / 354 General: Alert, Cooperative, No apparent distress HEENT: Atraumatic, Normocephalic Extremities: Edema - Decreasing edema of the left lower extremity Skin: - - Decreased erythema of the left lower extremity. Microbiology Past 72 Hours 01/28/18 17:00 Wound - Aerobic & Anaerobic Swabs Gram Stain - Final 01/28/18 17:00 Wound - Aerobic & Anaerobic Swabs Wound Culture - Final Pseudomonas aeroginosa 01/28/18 17:15 Urine, Catheterized Urine Culture - Final Enterococcus faecalis Laboratory Results 01/30/18 11:44: POC Glucose 133 H 01/30/18 16:18: POC Glucose 140 H 01/30/18 22:00: Vancomycin Trough 8.8 01/30/18 22:20: POC Glucose 168 H 01/31/18 06:58: POC Glucose 83 01/31/18 08:18: WBC 6.6, RBC 3.65 L, Hgb 11.8 L, Hct 36.5 L, MCV 100.0 H, MCH 32.3 H, MCHC 32.3, RDW 13.1, RDW Differential 48.2 H, Plt Count 152, MPV 9.5, Immature Gran % (Auto) 0.300, Neut % (Auto) 70.9 H, Lymph % (Auto) 19.3, [place] % (Auto) 8.4, Eos % (Auto) 0.9, Baso % (Auto) 0.2, Absolute Neuts (auto) 4.7, Absolute Lymphs (auto) 1.27, Total Counted Not Reportable 01/31/18 08:18: Sodium 141, Potassium 3.4 L, Chloride 105, Carbon Dioxide 32.0, Anion Gap 4 L, BUN 14, Creatinine 0.66 L, Estim Creat Clear Calc 60.83, Est GFR (MDRD) Af Amer 150, Est GFR (MDRD) Non-Af 124, BUN/Creatinine Ratio 21.3 H, Glucose 89, Calcium 8.5 Current Medications Acetaminophen (Tylenol) 650 mg PO Q6H PRN PRN PRN Reason: Mild Pain (scale 0-3)/T>100.7 Hydrocodone Bitart/Acetaminophen ([place] 5mg-325mg) 2 tablet PO BID@1800,2200 [facility] Last Admin: 01/30/18 22:23 Dose: 2 tablet Carvedilol (Coreg) 3.125 mg PO DAILY@1700 [facility] Last Admin: 01/30/18 17:58 Dose: 3.125 mg Clotrimazole (Lotrimin) 1 applicatio TOPICAL BID@0800,1800 [facility] PRN Reason: Protocol Last Admin: 01/31/18 08:50 Dose: 1 applicatio Dextrose (D50w Syringe) 0 gm IV X1 PRN; Protocol PRN Reason: Hypoglycemia Duloxetine HCl (Cymbalta) 60 mg PO DAILY@1700 [facility] Last Admin: 01/30/18 17:58 Dose: 60 mg Furosemide (Lasix) 40 mg PO DAILY@2200 [facility] Last Admin: 01/30/18 22:23 Dose: 40 mg Gabapentin (Neurontin) 600 mg PO TID@0800,1800,2200 [facility] Last Admin: 01/31/18 08:51 Dose: 600 mg Glucagon () 1 mg IM .X1 PRN PRN Reason: Hypoglycemia Hydrocortisone (Cortef) 20 mg PO 0800,1800 [facility] Last Admin: 01/31/18 08:51 Dose: 20 mg Vancomycin HCl 750 mg/ Sodium (Chloride) 265 mls @ 265 mls/hr IV Q12H [facility] Last Admin: 01/30/18 22:24 Dose: 265 mls/hr Insulin Aspart (Novolog Flexpen (Bkc)) 0 units SC ACHS [facility] PRN Reason: Protocol Last Admin: 01/31/18 07:08 Dose: Not Given Isosorbide Dinitrate (Isordil) 5 mg PO DAILY@2200 [facility] Last Admin: 01/30/18 22:23 Dose: 5 mg Levofloxacin (Levaquin) 500 mg PO DAILY@1800 [facility] Last Admin: 01/30/18 18:01 Dose: 500 mg Losartan Potassium (Cozaar) 12.5 mg PO DAILY@2200 [facility] Last Admin: 01/30/18 22:23 Dose: 12.5 mg Magnesium (Magnesium) 500 mg PO BID@0800,2200 [facility] Last Admin: 01/31/18 08:50 Dose: 500 mg Metformin HCl (Glucophage) 500 mg PO BID@0800,1800 [facility] Last Admin: 01/31/18 08:51 Dose: 500 mg Morphine Sulfate (Ms Contin) 30 mg PO BID@0800,2200 [facility] Last Admin: 01/31/18 08:57 Dose: 30 mg Multi-Ingredient Cream (Eucerin) 1 applic TOPICAL BID [facility] PRN Reason: Protocol Last Admin: 01/31/18 09:00 Dose: 1 applicatio Multivitamins/Minerals (Multivitamin With Minerals) 1 tablet PO 1800 [facility] Last Admin: 01/30/18 18:02 Dose: 1 tablet Pyridoxine HCl (Vitamin B-6) 100 mg PO 1800 [facility] Last Admin: 01/30/18 18:04 Dose: 100 mg Senna/Docusate Sodium (Senokot-S, Denisse-Colace) 1 tablet PO BID@0800,1800 [facility] Last Admin: 01/31/18 08:48 Dose: Not Given Sodium Chloride () 5 - 30 ml IV UD PRN PRN Reason: SALINE FLUSH Last Admin: 01/31/18 08:59 Dose: 10 ml Sodium Chloride ([place] Nasal [place]) 2 spray NASAL TID PRN PRN PRN Reason: NASAL DRYNESS Last Admin: 01/30/18 08:48 Dose: 2 spray Trimethoprim/Sulfamethoxazole (Bactrim Ds) 1 tablet PO DAILY@0800 [facility] Last Admin: 01/31/18 08:49 Dose: 1 tablet Assessment/Plan Active and Suspected Problems Cellulitis of left lower extremity (Acute) Macrocytic anemia (Acute) Thrombocytopenia (Acute) 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 Left lower extremity cellulitis Patient noting that it is improved from yesterday and that he is overall feeling better. Continue with vancomycin and Levaquin Appreciate infectious disease input Serology for staph and MRSA are negative Blood cultures pending Wound culture positive for Pseudomonas Infectious disease recommendations: 7 days of Levaquin and doxycycline 2. History of Nocardia On chronic Bactrim Follow-up infectious disease outpatient 3. History of syrinx Patient said that it is very confluent from C5 down to his thoracic vertebrae. Has been told that he will eventually to further paralysis and may be cessation of breathing. Patient is on hydrocortisone to help with edema associated with this. Patient states that this is been initiated through his primary care provider and patient states that he has no illusions that this is going to fix his syrinx. 4. DVT prophylaxis Given the patient's history of subarachnoid hemorrhage and blood noted on repeat LPs the patient has had in the past for his history of venous thromboembolic disease, skin order a right leg SCD. Chemical prophylaxis he feels contraindicated given his history and also would avoid a left lower extremity SCD given his left leg cellulitis. 5. Enterococcus in the urine [place] counts, and a normal urinalysis to exclude this is being an actual urinary tract infection. Therefore no treatment necessary. 6. Disposition to home. Discussed with case management who discussed with him further to see if he would need home care but it appears the patient may be at his baseline.
--- NOTE | 2018-01-31 10:46 | PN_ITS ---
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 Patient was able to pivot to the wheelchair without assistance today. Vitals/I&O's: Vital Signs Temp Pulse Resp BP Pulse Ox 36.6 C 74 18 162/74 H 98 01/31/18 09:09 01/31/18 09:09 01/31/18 09:09 01/31/18 09:09 01/31/18 09:09 Oxygen Delivery Method Room Air Weight: 76.912 kg Body Mass Index (BMI) 24.3 Intake and Output for Last 24 Hours 01/29/18 01/30/18 01/31/18 23:59 23:59 23:59 Intake Total 2090 / 2090 2248 / 2248 1104 / 1104 Output Total 2750 / 2750 2100 / 2100 750 / 750 Balance -660 / -660 148 / 148 354 / 354 General: Alert, Cooperative, No apparent distress HEENT: Atraumatic, Normocephalic Extremities: Edema - Decreasing edema of the left lower extremity Skin: - - Decreased erythema of the left lower extremity. Microbiology Past 72 Hours 01/28/18 17:00 Wound - Aerobic & Anaerobic Swabs Gram Stain - Final 01/28/18 17:00 Wound - Aerobic & Anaerobic Swabs Wound Culture - Final Pseudomonas aeroginosa 01/28/18 17:15 Urine, Catheterized Urine Culture - Final Enterococcus faecalis Laboratory Results 01/30/18 11:44: POC Glucose 133 H 01/30/18 16:18: POC Glucose 140 H 01/30/18 22:00: Vancomycin Trough 8.8 01/30/18 22:20: POC Glucose 168 H 01/31/18 06:58: POC Glucose 83 01/31/18 08:18: WBC 6.6, RBC 3.65 L, Hgb 11.8 L, Hct 36.5 L, MCV 100.0 H, MCH 32.3 H, MCHC 32.3, RDW 13.1, RDW Differential 48.2 H, Plt Count 152, MPV 9.5, Immature Gran % (Auto) 0.300, Neut % (Auto) 70.9 H, Lymph % (Auto) 19.3, [place] % (Auto) 8.4, Eos % (Auto) 0.9, Baso % (Auto) 0.2, Absolute Neuts (auto) 4.7, Absolute Lymphs (auto) 1.27, Total Counted Not Reportable 01/31/18 08:18: Sodium 141, Potassium 3.4 L, Chloride 105, Carbon Dioxide 32.0, Anion Gap 4 L, BUN 14, Creatinine 0.66 L, Estim Creat Clear Calc 60.83, Est GFR (MDRD) Af Amer 150, Est GFR (MDRD) Non-Af 124, BUN/Creatinine Ratio 21.3 H, Glucose 89, Calcium 8.5 Current Medications Acetaminophen (Tylenol) 650 mg PO Q6H PRN PRN PRN Reason: Mild Pain (scale 0-3)/T>100.7 Hydrocodone Bitart/Acetaminophen ([place] 5mg-325mg) 2 tablet PO BID@1800,2200 [facility] Last Admin: 01/30/18 22:23 Dose: 2 tablet Carvedilol (Coreg) 3.125 mg PO DAILY@1700 [facility] Last Admin: 01/30/18 17:58 Dose: 3.125 mg Clotrimazole (Lotrimin) 1 applicatio TOPICAL BID@0800,1800 [facility] PRN Reason: Protocol Last Admin: 01/31/18 08:50 Dose: 1 applicatio Dextrose (D50w Syringe) 0 gm IV X1 PRN; Protocol PRN Reason: Hypoglycemia Duloxetine HCl (Cymbalta) 60 mg PO DAILY@1700 [facility] Last Admin: 01/30/18 17:58 Dose: 60 mg Furosemide (Lasix) 40 mg PO DAILY@2200 [facility] Last Admin: 01/30/18 22:23 Dose: 40 mg Gabapentin (Neurontin) 600 mg PO TID@0800,1800,2200 [facility] Last Admin: 01/31/18 08:51 Dose: 600 mg Glucagon () 1 mg IM .X1 PRN PRN Reason: Hypoglycemia Hydrocortisone (Cortef) 20 mg PO 0800,1800 [facility] Last Admin: 01/31/18 08:51 Dose: 20 mg Vancomycin HCl 750 mg/ Sodium (Chloride) 265 mls @ 265 mls/hr IV Q12H [facility] Last Admin: 01/30/18 22:24 Dose: 265 mls/hr Insulin Aspart (Novolog Flexpen (Bkc)) 0 units SC ACHS [facility] PRN Reason: Protocol Last Admin: 01/31/18 07:08 Dose: Not Given Isosorbide Dinitrate (Isordil) 5 mg PO DAILY@2200 [facility] Last Admin: 01/30/18 22:23 Dose: 5 mg Levofloxacin (Levaquin) 500 mg PO DAILY@1800 [facility] Last Admin: 01/30/18 18:01 Dose: 500 mg Losartan Potassium (Cozaar) 12.5 mg PO DAILY@2200 [facility] Last Admin: 01/30/18 22:23 Dose: 12.5 mg Magnesium (Magnesium) 500 mg PO BID@0800,2200 [facility] Last Admin: 01/31/18 08:50 Dose: 500 mg Metformin HCl (Glucophage) 500 mg PO BID@0800,1800 [facility] Last Admin: 01/31/18 08:51 Dose: 500 mg Morphine Sulfate (Ms Contin) 30 mg PO BID@0800,2200 [facility] Last Admin: 01/31/18 08:57 Dose: 30 mg Multi-Ingredient Cream (Eucerin) 1 applic TOPICAL BID [facility] PRN Reason: Protocol Last Admin: 01/31/18 09:00 Dose: 1 applicatio Multivitamins/Minerals (Multivitamin With Minerals) 1 tablet PO 1800 [facility] Last Admin: 01/30/18 18:02 Dose: 1 tablet Pyridoxine HCl (Vitamin B-6) 100 mg PO 1800 [facility] Last Admin: 01/30/18 18:04 Dose: 100 mg Senna/Docusate Sodium (Senokot-S, Denisse-Colace) 1 tablet PO BID@0800,1800 [facility] Last Admin: 01/31/18 08:48 Dose: Not Given Sodium Chloride () 5 - 30 ml IV UD PRN PRN Reason: SALINE FLUSH Last Admin: 01/31/18 08:59 Dose: 10 ml Sodium Chloride ([place] Nasal [place]) 2 spray NASAL TID PRN PRN PRN Reason: NASAL DRYNESS Last Admin: 01/30/18 08:48 Dose: 2 spray Trimethoprim/Sulfamethoxazole (Bactrim Ds) 1 tablet PO DAILY@0800 [facility] Last Admin: 01/31/18 08:49 Dose: 1 tablet Assessment/Plan Active and Suspected Problems Cellulitis of left lower extremity (Acute) Macrocytic anemia (Acute) Thrombocytopenia (Acute) 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 Left lower extremity cellulitis * Patient noting that it is improved from yesterday and that he is overall feeling better. 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 History of syrinx * Patient said that it is very confluent from C5 down to his thoracic vertebrae. Has been told that he will eventually to further paralysis and may be cessation of breathing. * Patient is on hydrocortisone to help with edema associated with this. Patient states that this is been initiated through his primary care provider and patient states that he has no illusions that this is going to fix his syrinx. 4. DVT prophylaxis * Given the patient's history of subarachnoid hemorrhage and blood noted on repeat LPs the patient has had in the past for his history of venous thromboembolic disease, skin order a right leg SCD. Chemical prophylaxis he feels contraindicated given his history and also would avoid a left lower extremity SCD given his left leg cellulitis. 5. Enterococcus in the urine * [place] counts, and a normal urinalysis to exclude this is being an actual urinary tract infection. Therefore no treatment necessary. 6. Disposition to home. Discussed with case management who discussed with him further to see if he would need home care but it appears the patient may be at his baseline.
--- NOTE | 2018-01-31 10:49 | PCM.DC ---
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) Tinea pedis (Acute) You will use the following diet at home:: No restrictions Discharge Activity: Return to Normal Activity Call your doctor if your incision/area has: Increased Pain/ Swelling, Increased Redness Call your doctor if you observe: Fever of 101 or Higher Allergies/Adverse Reactions: Allergies Cephalosporins Allergy (Intermediate, Verified 11/10/16 18:54) Laryngospasms Penicillins Allergy (Intermediate, Verified 01/08/14 13:27) Rash IVP DYE Allergy (Uncoded 09/01/14 09:52) Rash Medications to take at Discharge Gabapentin [Neurontin] 600 mg PO TID@0800,1700,220 #90 capsule 09/18/14 Multivitamins,Ther W-Minerals [Multivitamin With Minerals] 1 tablet PO DAILY@1700 #30 tablet 09/18/14 Pyridoxine HCl [Vitamin B-6] 100 mg PO DAILY@1700 #30 tablet 09/18/14 Isosorbide Dinitrate [Isordil] 5 mg PO DAILY@219901/12/16 Losartan Potassium [Cozaar] 12.5 mg PO DAILY@219901/12/16 Senna/Docusate Sodium [Senokot-S] 1 tablet PO BID@0800,219901/12/16 Carvedilol [Coreg] 3.125 mg PO DAILY@17011/10/16 Duloxetine Hcl [Cymbalta] 60 mg PO DAILY@169911/10/16 Furosemide [Lasix] 40 mg PO DAILY@219911/10/16 Magnesium Oxide [Magnesium] 500 mg PO BID@0800,219911/10/16 Riboflavin [Vitamin B2] 200 mg PO DAILY@17011/10/16 Smz/Tmp Ds [Bactrim Ds] 1 tablet PO DAILY@0800 11/10/16 Acetaminophen [Tylenol Tablet] 650 mg PO Q6H PRN PRN #0 tablet 11/14/16 Hydrocodone/Acetaminophen [Hydrocodon-Acetaminophn 10-325] 1 each PO BID@1700,2200 #60 tablet 11/14/16 Ibuprofen [Motrin] 200 mg PO Q6H PRN #0 tablet 11/14/16 MorphINE [Ms Contin] 30 mg PO TID@0800,1600,2200 #60 tablet 11/14/16 Oxymetazoline 0.05% [Afrin (BKC)] 2 spray NASAL Q12H PRN PRN #1 spray.btl 11/14/16 Hydrocortisone 20 mg PO TID 01/28/18 Metformin HCl [Glucophage] 500 mg PO BIDCM 01/28/18 Clotrimazole [Lotrimin] 1 applicatio TOPICAL BID@0800,1800 #1 tube 01/31/18 Doxycycline 100 mg PO BID #14 cap 01/31/18 Levofloxacin [Levaquin] 500 mg PO DAILY@1800 #7 tab 01/31/18 The following prescriptions were given: Clotrimazole [Lotrimin] 1 applicatio TOPICAL BID@0800,1800 #1 tube Levofloxacin [Levaquin] 500 mg PO DAILY@1800 #7 tab Doxycycline 100 mg PO BID #14 cap Primary Care Physician: Eris Melendez MD [Primary Care Provider] - Within 2 Weeks Please Follow Up With: Jose Robert MD - Infectious Disease follow up. When: 1-2 months Proposed Discharge Date: 01/31/18
--- NOTE | 2018-01-31 10:50 | PCM.DC.SUM ---
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 Wound culture eventually came back positive for Pseudomonas and patient was seen in consultation by infectious disease and has recommended 7 days of Levaquin and doxycycline upon discharge. In the hospital, patient was on vancomycin and Levaquin. Patient also does have a history of chronic nocardia to which he was seeing infectious disease DrMargarita but has not seen one in over a year. Patient will follow up with Dr. Robert for further management of his chronic nocardia. Patient will continue with the Bactrim that he has been taking for the nocardia as he previously has been. 1. Left lower extremity cellulitis Patient noting that it is improved from yesterday and that he is overall feeling better. Continue with vancomycin and Levaquin Appreciate infectious disease input Serology for staph and MRSA are negative Blood cultures pending Wound culture positive for Pseudomonas Infectious disease recommendations: 7 days of Levaquin and doxycycline 2. History of Nocardia On chronic Bactrim Follow-up infectious disease outpatient 3. History of syrinx Patient said that it is very confluent from C5 down to his thoracic vertebrae. Has been told that he will eventually to further paralysis and may be cessation of breathing. Patient is on hydrocortisone to help with edema associated with this. Patient states that this is been initiated through his primary care provider and patient states that he has no illusions that this is going to fix his syrinx. 4. Enterococcus in the urine Low colony counts, and a normal urinalysis to exclude this is being an actual urinary tract infection. Therefore no treatment necessary.[] Discharge Diet: No Restrictions Discharge Activity: Return to Normal Activity Call your doctor if your incision/area has: Increased Pain/ Swelling, Increased Redness Call your doctor if you observe: Fever of 101 or Higher Home Medications: Medications to take at Discharge Gabapentin [Neurontin] 600 mg PO TID@0800,1700,2199 #90 capsule 09/18/14 Multivitamins,Ther W-Minerals [Multivitamin With Minerals] 1 tablet PO DAILY@1699 #30 tablet 09/18/14 Pyridoxine HCl [Vitamin B-6] 100 mg PO DAILY@1699 #30 tablet 09/18/14 Isosorbide Dinitrate [Isordil] 5 mg PO DAILY@219901/12/16 Losartan Potassium [Cozaar] 12.5 mg PO DAILY@219901/12/16 Senna/Docusate Sodium [Senokot-S] 1 tablet PO BID@0800,219901/12/16 Carvedilol [Coreg] 3.125 mg PO DAILY@169911/10/16 Duloxetine Hcl [Cymbalta] 60 mg PO DAILY@169911/10/16 Furosemide [Lasix] 40 mg PO DAILY@219911/10/16 Magnesium Oxide [Magnesium] 500 mg PO BID@0800,219911/10/16 Riboflavin [Vitamin B2] 200 mg PO DAILY@169911/10/16 Smz/Tmp Ds [Bactrim Ds] 1 tablet PO DAILY@0800 11/10/16 Acetaminophen [Tylenol Tablet] 650 mg PO Q6H PRN PRN #0 tablet 11/14/16 Hydrocodone/Acetaminophen [Hydrocodon-Acetaminophn 10-325] 1 each PO BID@1700,220 #60 tablet 11/14/16 Ibuprofen [Motrin] 200 mg PO Q6H PRN #0 tablet 11/14/16 MorphINE [Ms Contin] 30 mg PO TID@0800,1600,2199 #60 tablet 11/14/16 Oxymetazoline 0.05% [Afrin (BKC)] 2 spray NASAL Q12H PRN PRN #1 spray.btl 11/14/16 Hydrocortisone 20 mg PO TID 01/28/18 Metformin HCl [Glucophage] 500 mg PO BIDCM 01/28/18 Clotrimazole [Lotrimin] 1 applicatio TOPICAL BID@0800,1800 #1 tube 01/31/18 Doxycycline 100 mg PO BID #14 cap 01/31/18 Levofloxacin [Levaquin] 500 mg PO DAILY@1800 #7 tab 01/31/18 Following Prescrptions Were Given to Patient: Clotrimazole [Lotrimin] 1 applicatio TOPICAL BID@0800,1800 #1 tube Levofloxacin [Levaquin] 500 mg PO DAILY@1800 #7 tab Doxycycline 100 mg PO BID #14 cap Primary Care Physician: Eris Melendez MD [Primary Care Provider] - Within 2 Weeks Please Follow Up With: Jose Robert MD - Infectious Disease follow up. When: 1-2 months Disposition: Home with Home Health Minutes spent on discharge:: 35 Patient Condition:: Good Meaningful Use Info Meaningful Use Diagnoses (Choose all that apply): None applicable Code Visit Inpatient E&M: 49840 Disch Hosp
--- NOTE | 2018-01-31 10:56 | DS.PCM_ITS ---
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 Wound culture eventually came back positive for Pseudomonas and patient was seen in consultation by infectious disease and has recommended 7 days of Levaquin and doxycycline upon discharge. In the hospital, patient was on vancomycin and Levaquin. Patient also does have a history of chronic nocardia to which he was seeing infectious disease DrMargarita but has not seen one in over a year. Patient will follow up with Dr. Robert for further management of his chronic nocardia. Patient will continue with the Bactrim that he has been taking for the nocardia as he previously has been. 1. Left lower extremity cellulitis * Patient noting that it is improved from yesterday and that he is overall feeling better. 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 History of syrinx * Patient said that it is very confluent from C5 down to his thoracic vertebrae. Has been told that he will eventually to further paralysis and may be cessation of breathing. * Patient is on hydrocortisone to help with edema associated with this. Patient states that this is been initiated through his primary care provider and patient states that he has no illusions that this is going to fix his syrinx. 4. Enterococcus in the urine * Low colony counts, and a normal urinalysis to exclude this is being an actual urinary tract infection. Therefore no treatment necessary.[] Discharge Diet: No Restrictions Discharge Activity: Return to Normal Activity Call your doctor if your incision/area has: Increased Pain/ Swelling, Increased Redness Call your doctor if you observe: Fever of 101 or Higher Home Medications: Medications to take at Discharge Gabapentin [Neurontin] 600 mg PO TID@0800,1700,2199 #90 capsule 09/18/14 Multivitamins,Ther W-Minerals [Multivitamin With Minerals] 1 tablet PO DAILY@ 1699 #30 tablet 09/18/14 Pyridoxine HCl [Vitamin B-6] 100 mg PO DAILY@1699 #30 tablet 09/18/14 Isosorbide Dinitrate [Isordil] 5 mg PO DAILY@219901/12/16 Losartan Potassium [Cozaar] 12.5 mg PO DAILY@219901/12/16 Senna/Docusate Sodium [Senokot-S] 1 tablet PO BID@0800,219901/12/16 Carvedilol [Coreg] 3.125 mg PO DAILY@169911/10/16 Duloxetine Hcl [Cymbalta] 60 mg PO DAILY@169911/10/16 Furosemide [Lasix] 40 mg PO DAILY@219911/10/16 Magnesium Oxide [Magnesium] 500 mg PO BID@0800,219911/10/16 Riboflavin [Vitamin B2] 200 mg PO DAILY@169911/10/16 Smz/Tmp Ds [Bactrim Ds] 1 tablet PO DAILY@0800 11/10/16 Acetaminophen [Tylenol Tablet] 650 mg PO Q6H PRN PRN #0 tablet 11/14/16 Hydrocodone/Acetaminophen [Hydrocodon-Acetaminophn 10-325] 1 each PO BID@1700, 2199 #60 tablet 11/14/16 Ibuprofen [Motrin] 200 mg PO Q6H PRN #0 tablet 11/14/16 MorphINE [Ms Contin] 30 mg PO TID@0800,1600,2199 #60 tablet 11/14/16 Oxymetazoline 0.05% [Afrin (BKC)] 2 spray NASAL Q12H PRN PRN #1 spray.btl Hydrocortisone 20 mg PO TID 01/28/18 Metformin HCl [Glucophage] 500 mg PO BIDCM 01/28/18 Clotrimazole [Lotrimin] 1 applicatio TOPICAL BID@0800,1800 #1 tube 01/31/18 Doxycycline 100 mg PO BID #14 cap 01/31/18 Levofloxacin [Levaquin] 500 mg PO DAILY@1800 #7 tab 01/31/18 Following Prescrptions Were Given to Patient: Clotrimazole [Lotrimin] 1 applicatio TOPICAL BID@0800,1800 #1 tube Levofloxacin [Levaquin] 500 mg PO DAILY@1800 #7 tab Doxycycline 100 mg PO BID #14 cap Primary Care Physician: Eris Melendez MD [Primary Care Provider] - Within 2 Weeks Please Follow Up With: Jose Robert MD - Infectious Disease follow up. When: 1-2 months Disposition: Home with Home Health Minutes spent on discharge:: 35 Patient Condition:: Good Meaningful Use Info Meaningful Use Diagnoses (Choose all that apply): None applicable Code Visit Inpatient E&M: 27604 Disch Hosp
[2018-01-31 12:20] LABS: Bedside Glucose 95 mg/dL (70-110)
== END 2018-01-31 14:09 | disposition home or self-care (01) | DRG 603 ==
LOC: ED 15:33 → MS3 15:37
PROVIDERS: Admitting Provider Internal Medicine; Emergency Provider Emergency Medicine; Family Provider Family Medicine; PCP Family Medicine
DX: L03.116 Cellulitis of left lower limb (principal); G95.0 Syringomyelia and syringobulbia; G37.3 Acute transverse myelitis in demyelinating disease of central nervous system; G82.20 Paraplegia, unspecified; D69.6 Thrombocytopenia, unspecified; I73.9 Peripheral vascular disease, unspecified; B35.3 Tinea pedis; Z98.2 Presence of cerebrospinal fluid drainage device; B96.5 Pseudomonas (aeruginosa) (mallei) (pseudomallei) as the cause of diseases classified elsewhere; Z86.14 Personal history of Methicillin resistant Staphylococcus aureus infection; G89.4 Chronic pain syndrome; Z79.52 Long term (current) use of systemic steroids; D53.9 Nutritional anemia, unspecified; I10 Essential (primary) hypertension; K59.00 Constipation, unspecified; Z79.899 Other long term (current) drug therapy; G56.03 Carpal tunnel syndrome, bilateral upper limbs; M25.512 Pain in left shoulder
CPT/HCPCS: 36415; 80048; 80202; 81001; 82607; 82746; 82962; 83036; 85025; 85045; 85652; 87040; 87070; 87075; 87077; 87086; 87088; 87184; 87186; 87205; 87640; 93306; 93971; 97110; 97162; 97165; 97530; 97802; 99284; J7030; J7050; Q9957; A4216; C8929

== ENCOUNTER → 2018-02-05 12:28 | Outpatient (CLI) | payer MEDICARE, OTHER, SELFPAY ==
[2018-02-05 14:13] LABS: Erythrocyte Sedimentation Rate 42 mm/hr (0-20)
== END ==
PROVIDERS: Family Provider Family Medicine; PCP Family Medicine; Visit Provider Family Medicine
DX: L03.116 Cellulitis of left lower limb (principal)
CPT/HCPCS: 36415; 85652; 86140

== ENCOUNTER → 2018-02-21 11:05 | Outpatient (CLI) | payer MEDICARE, OTHER, SELFPAY ==
[2018-02-21 12:41] LABS: Erythrocyte Sedimentation Rate 16 mm/hr (0-20)
[2018-02-21 12:50] LABS: Absolute Lymphocyte Count 1.22 X10^3/ul (0.83-4.51); Absolute Neutrophil Count 9.4 X10^3/uL (2.0-7.7); Basophil# 0.01 X10^3/uL; Basophil% 0.1 % (0-1); Eosinophil# 0.05 X10^3/uL; Eosinophils% 0.4 % (0-5); Hemoglobin 13.7 g/dl (13.0-16.5); Lymphocyte # 1.22 X10^3/ul (4.0); Lymphocyte % 10.6 % (19-41); Mean Corp Hgb Conc 32.6 g/gl (32-36); Mean Corpuscular Hgb 32.5 pg (27.0-32.0); Mean Corpuscular Volume 99.8 fL (80-94); Mean Platelet Vol. 9.7 fl (6.2-12.0); Monocyte# 0.76 X10^3/uL; Monocyte% 6.6 % (0-10); Neutrophil # 9.41 X10^3/uL (2.7-7.7); Platelet Count 239 K/mm3 (150-450); RBC Distribution Width SD 46.7 fl (35.1-43.9); Red Blood Count 4.21 M/mm3 (4.6-6.2); White Blood Count 11.5 K/mm3 (4.4-11.0)
[2018-02-21 12:57] LABS: POSITIVE COUNT NO; POSITIVE DIFFERENTIAL NO; POSITIVE MORPHOLOGY NO
[2018-02-21 13:00] LABS: ALB/GLOB Ratio 0.9 RATIO (0.9-2.4); AST(SGOT) 34 U/L (15-37); Alanine Aminotransfer ALT/SGPT 69 U/L (16-61); Albumin, Serum 3.4 g/dL (3.2-5.0); Alkaline Phosphatase 172 U/L (45-117); Anion Gap 8 (5-15); BUN 20 mg/dL (7-18); BUN/Creat Ratio 25.4 RATIO (10-20); CRP 5.28 mg/L (0.0-3.0); Calcium,Total 8.7 mg/dL (8.5-10.1); Chloride 99 mmol/L (98-107); Creatinine, Serum 0.79 mg/dL (0.70-1.30); EST Glomerular Filtration Rate 101 mL/min (>60); Est Glom Filt Rate - Afr Amer 122 mL/min (>60); Globulin 3.8 g/dL (2.2-4.2); Glucose 80 mg/dL (74-106); Potassium 3.9 mmol/L (3.5-5.1); Protein, Total 7.2 g/dL (6.4-8.2); Sodium Level 138 mmol/L (136-145); Thyroid Stim Hormone (TSH) 3.27 uIU/mL (0.358-3.74)
== END ==
PROVIDERS: Visit Provider Family Medicine
DX: N31.9 Neuromuscular dysfunction of bladder, unspecified (principal); M79.89 Other specified soft tissue disorders; G89.4 Chronic pain syndrome
CPT/HCPCS: 80053; 82306; 84443; 85025; 85652; 86140

== ENCOUNTER 2018-07-05 10:01 | Inpatient (IN) | payer MEDICARE, OTHER, SELFPAY ==
[2018-07-05] VITALS (11 sets, daily range): BP systolic 95–117; BP diastolic 48–76; PULSE 58–78; RESP 14–20; TEMP 36.9–37.2; O2SAT 16–97; BMI 24.3; BMI 25.0
--- NOTE | 2018-07-05 10:22 | RAD_ITS ---
STUDY: X-RAY CHEST REASON FOR EXAM: Male, 82 years old. Chest pain. General illness. TECHNIQUE: Single AP upright portable chest. COMPARISON: 11/10/2016 FINDINGS: Vena cava filter is identified with the superior tip projecting just right lateral of the taylor, appears stable. Small caliber tubing overlies the right medial hemithorax and right lower lateral neck soft tissues, appears stable. Different small caliber tubing is seen in the right subdiaphragmatic region with medial tip projecting over the dome of the liver, appears stable. The lungs show mild suboptimal inspiration with mild right greater and left elevated diaphragm without active focal pulmonary consolidation with air bronchograms, large pleural effusion or abnormally dilated pulmonary vessels are identified. Minimal right greater and left bibasal subtle diffuse heterogeneous opacities are seen suggesting minimal subsegmental atelectasis. No large gross pneumothorax suggested. Normal size heart. No focal mediastinal or left hilar mass density or widening seen. Moderate large right infrahilar pulmonary vessels are seen, likely summation shadow with adjacent subsegmental atelectasis described above showing similar appearance to prior chest study 11/08/2016. No change heavily calcified visualized aortic knob. No acute osseous or mallee seen. High riding left humerus seen with decreased acromion-humeral distance suggesting chronic rotator cuff tear. Severe degenerative left glenohumeral joint suggested. 2 rotator cuff anchor screws thickening right humeral head. Degenerative changes thoracic spine appear stable. There is no demonstrated abnormality of the visualized soft tissue structures of the upper abdomen. No subdiaphragmatic free air seen grossly. IMPRESSION: Nonacute chest with suboptimal inspiration. Minimal bibasal subtotal atelectasis due to suboptimal inspiration. Electronically Signed: Jose Phil, at 11:31 EDT Tel , Service support , RAD/Chest 1 View (Portable)
[2018-07-05] MEDS: 0.9% Normal Saline 1,000 ML 1000 ML IV ×2 (10:49)
[2018-07-05 10:59] LABS: Absolute Lymphocyte Count 0.93 X10^3/ul (0.83-4.51); Absolute Neutrophil Count 14.5 X10^3/uL (2.0-7.7); Basophil# 0.01 X10^3/uL; Basophil% 0.1 % (0-1); Eosinophil# 0.03 X10^3/uL; Eosinophils% 0.2 % (0-5); Hematocrit 40.6 % (40-54); Hemoglobin 12.9 g/dl (13.0-16.5); Lymphocyte # 0.93 X10^3/ul (4.0); Lymphocyte % 5.7 % (19-41); Mean Corp Hgb Conc 31.8 g/gl (32-36); Mean Corpuscular Hgb 32.7 pg (27.0-32.0); Mean Corpuscular Volume 102.8 fL (80-94); Mean Platelet Vol. 9.7 fl (6.2-12.0); Monocyte# 0.91 X10^3/uL; Monocyte% 5.5 % (0-10); Neutrophil # 14.53 X10^3/uL (2.7-7.7); Neutrophil % 88.4 % (47-70); Platelet Count 138 K/mm3 (150-450); RBC Distribution Width CV 13.6 % (11.6-14.6); Red Blood Count 3.95 M/mm3 (4.6-6.2); White Blood Count 16.4 K/mm3 (4.4-11.0)
[2018-07-05 11:00] LABS: POSITIVE COUNT NO; POSITIVE DIFFERENTIAL NO; POSITIVE MORPHOLOGY NO
[2018-07-05 11:07] LABS: International Normalized Ratio 1.1; Prothrombin Time (Protime)PT. 13.7 SECONDS (11.7-14.9)
[2018-07-05 11:17] LABS: Lactic Acid 1.7 mmol/L (0.4-2.0)
[2018-07-05 11:23] LABS: Anion Gap 3 (5-15); BUN 28 mg/dL (7-18); BUN/Creat Ratio 21.1 RATIO (10-20); Calcium,Total 8.5 mg/dL (8.5-10.1); Chloride 99 mmol/L (98-107); Creatinine, Serum 1.33 mg/dL (0.70-1.30); EST Glomerular Filtration Rate 55 mL/min (>60); Est Glom Filt Rate - Afr Amer 66 mL/min (>60); Estimated Creatinine Clearance 45.74 ml/min; Glucose 121 mg/dL (74-106); Potassium 4.4 mmol/L (3.5-5.1); Sodium Level 136 mmol/L (136-145)
[2018-07-05 11:28] LABS: Mucous, Urine 0 SEEN /hpf (<or=2+)
[2018-07-05 11:36] LABS: Color, Urine Yellow (Yellow); Glucose, Dipstick Normal (Normal); Ketone-Dipstick Negative (Negative); Leukocyte Esterase-Dipstick 500 /ul (Negative); Nitrite-Dipstick Negative (Negative); Occult Blood-Urine 25 /ul (Negative); Protein-Dipstick 30 mg/dl (Negative); Urine Bilirubin Dipstick Negative (Negative); Urine Clarity Cloudy (Clear); Urine Urobilinogen 1 mg/dl (Normal)
--- NOTE | 2018-07-05 11:41 | ED.RN ---
lab called with critical lab results. Troponin level 2.530. Dr. Soriano made aware.
[2018-07-05 11:46] LABS: Bacteria 2+ /hpf (None Seen); Red Blood Cells-Urine 0-5 SEEN /hpf (0-5); Squamous Epithelial Cells - UA 0-5 SEEN /hpf (0-5); White Blood Cells 25-50 SEEN /hpf (0-5)
[2018-07-05] MEDS: Aspirin 325 MG Tablet PO (11:49)
[2018-07-05 12:06] LABS: Partial Thromboplast Time 26.4 Seconds (24.1-36.2)
--- NOTE | 2018-07-05 12:17 | ED.VISSUMM ---
- ER Visit Summary Date of Service: 07/05/18 Chief Complaint: [generalized weakness] History of Present Illness: The patient is a 82 M [that presents with generalized weakness, fever, and chills that began approximately 2 days ago. Family states he was so weak all over over the last 1-2 days that it was difficult for them to wake him and get him in his wheelchair. 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 He started Cipro yesterday for a presumed UTI as he performs self-catheterization of his bladder. He is also on daily steroids. He denies any chest pain or shortness of breath. No cough or sputum production. He denies any abdominal pain. He has no other complaints.] Physical Examination: [General: The patient appears well and in no apparent distress. Patient is resting comfortably on cart. Skin: Warm, dry, no pallor noted. No rash. Head: Normocephalic, atraumatic Neck: Supple, nontender. No JVD. Eye: PERRLA, EOMI ENT: Moist mucus membranes, pharynx within normal limits. Cardiovascular: Regular Rate and Rhythm, no gallups or rubs Respiratory: Patient is in no distress, no accessory muscle use, lungs are diminished bilaterally on auscultation Musculoskeletal: normal ROM, no deformity, no tenderness, no swelling. 2+ radial and DP pulses symmetric. GI: No tenderness to palpation, no masses appreciated. No rebound, guarding, or rigidity noted. Neurological: A&O, normal strength and sensation bilateral upper extremities. Chronic weakness lower extremities secondary to paraplegia. GCS 15. Psychiatric: Cooperative] Test Results: [EKG showed nonspecific ST depression that appeared worse inferiorly and laterally as compared to prior EKG from 2016. No ST elevation or arrhythmia. White blood cell count was 16.5. Creatinine was 1.3. INR was 1.1. Lactate was negative. Troponin elevated at 2.53. Urinalysis shows white cells and bacteria consistent with UTI. Chest x-ray shows suboptimal inspiration but no definite infiltrates or effusions.] Emergency Department Course and Treatment: [She was given aspirin. He continues to deny any chest pain or shortness of breath. He is hemodynamically stable. I spoke with cardiology, Dr. Calderon at 1202 who recommended Plavix in addition to heparin and aspirin that have already been ordered for treatment of non-STEMI. He was agreeable with patient admission and would like a repeat echo on admission. Patient was discussed with hospitalist Dr. Vazquez who is agreeable with admission. Patient was given IV Cipro for UTI. On reevaluation at 1210 patient appears stable, vitals remained stable. He continues to deny any chest pain or shortness of breath. At this time patient will be admitted to PCU.] Treatment Plan: [See above] Disposition: [Admission, PCU] Impression: [Non-STEMI, generalized weakness, UTI] Critical care time 47 minutes. This note was generated with [employer] dictation software. It may contain incorrect words, spelling, and punctuation that were not noted in review of the chart prior to signing ED Disposition - Plan for ED Patient: Chief Complaint: General Illness Referrals: Eris Melendez MD [Primary Care Provider] -
[2018-07-05] MEDS: Ciprofloxacin 400 MG/200 ML BAG 200 MG IV ×2 (12:33→21:09)
[2018-07-05] MEDS: Clopidogrel Bisulfate 300 MG Tablet PO (12:35)
[2018-07-05] MEDS: HEPARIN/D5w 25,000 UNITS 25,000 UNITS/250 ML IV.SOLN. 11 UNITS IV (12:45)
--- NOTE | 2018-07-05 13:17 | PCM.HP.STD ---
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 (3) Syringomyelia Status: Chronic (4) HTN (hypertension) Status: Chronic Qualifiers: (5) PAD (peripheral artery disease) Status: Chronic (6) Paraplegia Status: Chronic Comment: due to transverse myelitis History of Present Illness Date of Admission: 07/05/18 Chief Complaint: Generalized body weakness, pains and aches. The patient is a 82 year old M with past medical history as mentioned above presented to the emergency room because of generalized weakness, body pains and aches as well as fever. Symptoms started 2 days ago generalized weakness, generalized body aches and pains involving most of his joints but more pronounced on both elbows, aching pain, associated with fever of 101.5 Fahrenheit and without aggravating or relieving factors. He just felt weak and tired all over. Patient denied chest pain, shortness of breath, palpitation, dizziness, lightheadedness, syncope or presyncope. He had a history of transverse myelitis complicated by paraplegia and patient has been wheelchair-bound for long time. 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 He had a history of, Lasix, losartan. He has a history of chronic urinary retention and he has been doing self-catheterization at home twice daily. He has history of recurrent UTI as well. In the emergency department, patient was afebrile, blood pressure and heart rate was stable and his pulse ox was 93% on 2 L. His routine blood work was remarkable for leukocytosis, creatinine of 1.33, otherwise normal. Chest x-ray revealed poor ventilation of the right lung, no acute infiltrate. His EKG revealed normal sinus rhythm without evidence of acute ST elevation. Troponin came back high at 2.53. He is being admitted for acute complicated cystitis and acute non-ST elevation FL and acute kidney injury. 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 Allergies Cephalosporins Allergy (Intermediate, Verified 07/05/18 10:04) Laryngospasms Penicillins Allergy (Intermediate, Verified 07/05/18 10:04) Rash IVP DYE Allergy (Uncoded 07/05/18 10:04) Rash Home Medications: Ambulatory Orders Medication Instructions Recorded Multivitamins,Ther W-Minerals 1 tablet PO DAILY@1700 #30 tablet 09/18/14 [Multivitamin With Minerals] Pyridoxine HCl [Vitamin B-6] 100 mg PO DAILY@1700 #30 tablet 09/18/14 Losartan Potassium [Cozaar] 12.5 mg PO DAILY@219901/12/16 Carvedilol [Coreg] 3.125 mg PO DAILY@169911/10/16 Furosemide [Lasix] 40 mg PO DAILY@219911/10/16 Magnesium Oxide [Magnesium] 500 mg PO BID 11/10/16 Riboflavin [Vitamin B2] 200 mg PO DAILY@169911/10/16 Oxymetazoline 0.05% [Afrin (BKC)] 2 spray NASAL Q12H PRN PRN #1 11/14/16 spray.btl Hydrocortisone 20 mg PO BIDCM 01/28/18 Metformin HCl [Glucophage] 500 mg PO BIDCM 01/28/18 Ascorbic Acid [Vitamin C] 1,000 mg PO DAILY 07/05/18 Ciprofloxacin [Cipro] 500 mg PO BID 07/05/18 Docusate Sodium [Colace] 100 mg PO BID PRN 07/05/18 Escitalopram Oxalate [Lexapro] 10 mg PO DAILY 07/05/18 Gabapentin [Neurontin] 600 mg PO DAILY 07/05/18 Gabapentin [Neurontin] 900 mg PO DINNER 07/05/18 Gabapentin [Neurontin] 900 mg PO QHS 07/05/18 Garlic 500 mg PO DAILY 07/05/18 Hydrocodone/Acetaminophen 1 each PO QHS 07/05/18 [Hydrocodon-Acetaminophn 10-325] Isosorbide Mononitrate 5 mg PO QHS 07/05/18 [place] 150 mg PO TID 07/05/18 Morphine Sulfate [Morphine Sulfate 30 mg PO BID 07/05/18 ER] Ranitidine [Zantac] 150 mg PO BIDCM 07/05/18 Sulfamethoxazole/Trimethoprim 1 each PO DAILY 07/05/18 [Bactrim Ds Tablet] Surgical History: - - Laminectomy 2006, 2007. History of LEGAL INSTRUCTOR shunt for subarachnoid hemorrhage which secondarily got infected with E. coli. 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 Psychiatric History: No pertinent psych hx, - - he is very angry now and his attributes this to the steroids....she states it makes him mean. 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 Lives: Spouse/ Significant Other Smoking Status: Never smoker Alcohol: None Drugs: None - *Family History Maternal History Items: - - , depression Paternal History Items: - - Offspring History Items: - - 2 children, 4 grand children, 1 great grandchild, all in good health Review of Systems Constitutional: Reports: Fever, Weakness, Fatigue. Denies: Anorexia, Chills Eyes: Denies: Blurred vision, Double vision, Drainage, Redness HEENT: Denies: Difficulty Hearing, Ear Pain, Eye Pain, Nasal Congestion, Sore Throat Cardiovascular: Denies: Chest Pain, Chest Pressure, Chest Tightness, Heaviness, Light Headedness, Palpitations, Syncope Respiratory: Denies: Cough, Hemoptysis, Pleuritic Pain, Sputum production, Wheezing Gastrointestinal: Denies: Abdominal Pain, Constipation, Diarrhea, Nausea, Vomiting Genitourinary: Denies: Dysuria, Frequency, Hematuria Musculoskeletal: Reports: Joint Pain, Muscle pain. Denies: Arm Pain, Foot Pain Skin: Denies: Dryness, Rash Neurological: Denies: Balance problems, Double vision, Change in Speech, Slurred speech, Headaches Psychiatric: Reports: Depression. Denies: Anxiety Endocrine: Denies: Change in Body Habitus, Polydipsia VTE Information - Inpt Only VTE Present on Admission: No VTE Mechan Device Prophylaxis: None VTE Pharm Prophylaxis ordered?: Yes - Physical Exam General: Alert, Oriented x3, Cooperative, No apparent distress HEENT: Atraumatic, PERRLA, EOMI, Normocephalic Oral: Moist Mucosa, No Gingival or Mucosal Lesions/ Ulcerations Neck: Supple, No JVD, Negative Carotid Bruits, Trachea Midline, Thyroid Normal Size and Texture Lungs: Clear to auscultation, No rhonchi, No wheeze, No rales, Diminished Cardiovascular: Regular rate, Regular Rhythm, Normal S1, Normal S2, PMI Normal Abdomen: Bowel Sounds Present, Soft, Non Tender, Non-Distended, No Hepato-splenomegaly Extremities: No clubbing, No cyanosis, No edema Skin: No rashes, No breakdown Lymphatic: No Cervical, Supraclavicular, or Inguinal Adenopathy Neurological: Cranial nerves II-XII grossly intact, - - Paraplegia. Psych/Mental Status: Normal Affect, Appropriate, Alert and oriented to time, place, person, mood and affect Vital Signs Temp Pulse Resp BP Pulse Ox 98.9 F 70 14 110/76 16 07/05/18 10:02 07/05/18 12:16 07/05/18 12:16 07/05/18 12:16 07/05/18 12:16 Laboratory Tests 07/05/18 07/05/18 07/05/18 Range/Units 11:20 10:43 10:43 WBC (4.4-11.0) K/mm3 RBC (4.6-6.2) M/mm3 Hgb (13.0-16.5) g/dl Hct (40-54) % MCV (80-94) fL MCH (27.0-32.0) pg MCHC (32-36) g/gl RDW (11.6-14.6) % RDW Differential (35.1-43.9) fl Plt Count (150-450) K/mm3 MPV (6.2-12.0) fl Immature Gran % (Auto) (0.0-0.9) % Neut % (Auto) (47-70) % Lymph % (Auto) (19-41) % Shannon % (Auto) (0-10) % Eos % (Auto) (0-5) % Baso % (Auto) (0-1) % Absolute Neuts (auto) (2.0-7.7) X10^3/uL Absolute Lymphs (auto) (0.83-4.51) X10^3/ul Total Counted PT (11.7-14.9) SECONDS INR APTT 26.4 (24.1-36.2) Seconds Sodium (136-145) mmol/L Potassium (3.5-5.1) mmol/L Chloride (98-107) mmol/L Carbon Dioxide (21.0-32.0) mmol/L Anion Gap (5-15) BUN (7-18) mg/dL Creatinine (0.70-1.30) mg/dL Estim Creat Clear Calc ml/min Est GFR (MDRD) Af Amer (>60) mL/min Est GFR (MDRD) Non-Af (>60) mL/min BUN/Creatinine Ratio (10-20) RATIO Glucose (74-106) mg/dL Lactic Acid 1.7 (0.4-2.0) mmol/L Calcium (8.5-10.1) mg/dL Troponin I (<0.045) ng/mL Urine Color Yellow (Yellow) Urine Clarity Cloudy (Clear) Urine pH 5.0 (5.0 - 8.0) Ur Specific [place] 1.020 (1.002-1.030) Urine Protein 30 H (Negative) mg/dl Urine Glucose (UA) Normal (Normal) mg/dl Urine Ketones Negative (Negative) mg/dl Urine Occult Blood 25 H (Negative) /ul Urine Nitrite Negative (Negative) Urine Bilirubin Negative (Negative) mg/dL Urine Urobilinogen 1 H (Normal) mg/dl Ur Leukocyte Esterase 500 H (Negative) /ul Urine RBC 0-5 SEEN (0-5) /hpf Urine WBC 25-50 SEEN (0-5) /hpf Ur Squamous Epith Cells 0-5 SEEN (0-5) /hpf Urine Bacteria 2+ (None Seen) /hpf Urine Mucus 0 SEEN (<or=2+) /hpf 07/05/18 07/05/18 07/05/18 Range/Units 10:43 10:43 10:43 WBC 16.4 H (4.4-11.0) K/mm3 RBC 3.95 L (4.6-6.2) M/mm3 Hgb 12.9 L (13.0-16.5) g/dl Hct 40.6 (40-54) % MCV 102.8 H (80-94) fL MCH 32.7 H (27.0-32.0) pg MCHC 31.8 L (32-36) g/gl RDW 13.6 (11.6-14.6) % RDW Differential 51.0 H (35.1-43.9) fl Plt Count 138 L (150-450) K/mm3 MPV 9.7 (6.2-12.0) fl Immature Gran % (Auto) 0.100 (0.0-0.9) % Neut % (Auto) 88.4 H (47-70) % Lymph % (Auto) 5.7 L (19-41) % Shannon % (Auto) 5.5 (0-10) % Eos % (Auto) 0.2 (0-5) % Baso % (Auto) 0.1 (0-1) % Absolute Neuts (auto) 14.5 H (2.0-7.7) X10^3/uL Absolute Lymphs (auto) 0.93 (0.83-4.51) X10^3/ul Total Counted Not Reportable PT 13.7 (11.7-14.9) SECONDS INR 1.1 APTT (24.1-36.2) Seconds Sodium 136 (136-145) mmol/L Potassium 4.4 (3.5-5.1) mmol/L Chloride 99 (98-107) mmol/L Carbon Dioxide 34.0 H (21.0-32.0) mmol/L Anion Gap 3 L (5-15) BUN 28 H (7-18) mg/dL Creatinine 1.33 H (0.70-1.30) mg/dL Estim Creat Clear Calc 45.74 ml/min Est GFR (MDRD) Af Amer 66 (>60) mL/min Est GFR (MDRD) Non-Af 55 L (>60) mL/min BUN/Creatinine Ratio 21.1 H (10-20) RATIO Glucose 121 H (74-106) mg/dL Lactic Acid (0.4-2.0) mmol/L Calcium 8.5 (8.5-10.1) mg/dL Troponin I 2.530 H* (<0.045) ng/mL Urine Color (Yellow) Urine Clarity (Clear) Urine pH (5.0 - 8.0) Ur Specific [place] (1.002-1.030) Urine Protein (Negative) mg/dl Urine Glucose (UA) (Normal) mg/dl Urine Ketones (Negative) mg/dl Urine Occult Blood (Negative) /ul Urine Nitrite (Negative) Urine Bilirubin (Negative) mg/dL Urine Urobilinogen (Normal) mg/dl Ur Leukocyte Esterase (Negative) /ul Urine RBC (0-5) /hpf Urine WBC (0-5) /hpf Ur Squamous Epith Cells (0-5) /hpf Urine Bacteria (None Seen) /hpf Urine Mucus (<or=2+) /hpf Clinical Impression(s) from Imaging Studies Chest X-Ray 07/05/18 10:22 Assessment/Plan This is an 82 years old male patient presented to the emergency room because of weakness, fever, body aches and pains, found to have acute cystitis as well as acute non-ST elevation FL and acute kidney injury. #[address] elevation FL: EKG revealed no acute ST elevation, no acute ischemic changes. Troponin is elevated. Patient denies any chest pain. His vital signs are stable. He was started on IV heparin drip in the ER, received loading dose of Plavix. Plan: Admit to PCU, cardiac monitoring, serial cardiac enzymes, repeat EKG tomorrow morning, 2D echocardiogram, continue IV heparin drip, daily Plavix, continue Coreg, isosorbide mononitrate, losartan, cardiology consult, repeat CBC and BMP tomorrow morning, PT OT evaluation and treatment. #2 acute complicated cystitis: Context of history of chronic urinary retention on self-catheterization at home with history of recurrent UTIs. Urinalysis revealed cloudy urine, positive for leukocyte esterase, there was 25-50 cc and 2+ bacteria. Urine and blood culture sent. Lactic acid is normal. Plan: IV ciprofloxacin, follow blood and urine cultures. #3 acute kidney injury: Likely because of infection and dehydration. Admission creatinine is 1.33. Most recent creatinine was 0.79 from January,. Plan for IV fluids for hydration, repeat BMP tomorrow morning. #3 hypertension: Blood pressure is stable at this time, continue Coreg, isosorbide mononitrate, losartan with holding parameters. #4 history of transverse myelitis/subsequent paraplegia: Patient is wheelchair-bound. Supportive care, PT OT exertion and treatment. #5 history of subarachnoid hemorrhage/subsequent LEGAL INSTRUCTOR shunt/syringomyelia: Stable, no acute issues. #6 chronic pain syndrome: Continue gabapentin, MS Contin and Percocet as needed. 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 #8 peripheral vascular disease: Stable. #9 DVT prophylaxis: He is on IV heparin drip. This note was generated with [employer] dictation software. It may contain incorrect words, spelling, and punctuation that were not noted in checking the note before signing. Code Visit Inpatient E&M: 53299 Init Hosp L3
--- NOTE | 2018-07-05 13:22 | ECHOD_ITS ---
Reason For Study: S/P OK Procedure This was a 2D Doppler, Color Flow transthoracic echocardiogram. Patient scanned supine. Exam performed portable in patient room. Left Ventricle Normal size and thickness. The estimated ejection fraction is 65 %. Stage 2 diastolic dysfunction. No regional wall motion abnormalities noted. Right Ventricle Normal size and thickness. Normal systolic function. Atria Normal left atrium. Normal right atrium. Normal atrial septum. Mitral Valve Mild diffuse mitral valve thickening. Severe mitral annular calcification extending into the posterior leaflet. Trivial mitral valve insufficiency. Tricuspid Valve Normal tricuspid valve. Unable to estimate RV systolic pressure due to inadequate jet, pulmonary artery pressure probably normal. Aortic Valve Trisinus/trileaflet aortic valve. Mild diffuse aortic valve thickening. Moderate focal aortic valve thickening. Mild restriction of the aortic valve. Mild aortic stenosis. Peak aortic valve gradient 10 mmHg. Mean aortic valve gradient 5 mmHg. Pulmonic Valve The pulmonic valve is not well visualized. Great Vessels Normal aortic root. Normal arch. Normal inferior vena cava. Inferior vena cava collapse with sniff. Pericardium/Pleural No pericardial effusion. MMode/2D Measurements & Calculations LVIDd: 3.5 cm IVSd: 1.3 cm LVOT diam: 2.0 cm LVIDs: 2.2 cm LVPWd: 1.1 cm LVOT area: 3.0 cm2 FS: 36.8 % Ao root diam: 3.3 cm Time Measurements MV dec time: 0.16 sec Doppler Measurements & Calculations MV E max rommel: 106.4 cm/sec Lat Peak E' Rommel: 9.5 cm/sec Med Peak E' Rommel: 6.8 cm/sec MV A max rommel: 80.8 cm/sec E/E' lat: 11.2 E/E' med: 15.7 MV E/A: 1.3 MV V2 max: 132.9 cm/sec MV P1/2t max rommel: 132.9 cm/sec Ao V2 max: 158.9 cm/sec MV max P.1 mmHg MV P1/2t: 66.0 msec Ao max P.1 mmHg MV V2 mean: 61.2 cm/sec MV dec slope: 589.4 cm/sec2 Ao V2 mean: 101.8 cm/sec MV mean P.9 mmHg MVA(P1/2t): 3.3 cm2 Ao mean P.0 mmHg MV V2 VTI: 38.5 cm Ao V2 VTI: 35.4 cm MVA(VTI): 2.1 cm2 JUAN(I,D): 2.3 cm2 JUAN(V,D): 2.2 cm2 LV V1 max: 116.4 cm/sec SV(LVOT): 79.7 ml PA V2 max: 106.9 cm/sec LV V1 max P.4 mmHg LV V1 mean P.7 mmHg LV V1 mean: 75.8 cm/sec LV V1 VTI: 26.3 cm Interpretation Summary The estimated ejection fraction is 65 %. Stage 2 diastolic dysfunction. Trivial mitral valve insufficiency. Unable to estimate RV systolic pressure due to inadequate jet, pulmonary artery pressure probably normal. Mild aortic stenosis. Compared to echo report dated 01/30/2018, no appreciable changes noted. Ordering Physician: Ai Vazquez Referring Physician: JOSETTE GARCIA Performed By: Franklin Sanchez RCS
--- NOTE | 2018-07-05 13:26 | HP.PCM_ITS ---
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 (3) Syringomyelia Status: Chronic (4) HTN (hypertension) Status: Chronic Qualifiers: (5) PAD (peripheral artery disease) Status: Chronic (6) Paraplegia Status: Chronic Comment: due to transverse myelitis History of Present Illness Date of Admission: 07/05/18 Chief Complaint: Generalized body weakness, pains and aches. The patient is a 82 year old M with past medical history as mentioned above presented to the emergency room because of generalized weakness, body pains and aches as well as fever. Symptoms started 2 days ago generalized weakness, generalized body aches and pains involving most of his joints but more pronounced on both elbows, aching pain, associated with fever of 101.5 Fahrenheit and without aggravating or relieving factors. He just felt weak and tired all over. Patient denied chest pain, shortness of breath, palpitation, dizziness, lightheadedness, syncope or presyncope. He had a history of transverse myelitis complicated by paraplegia and patient has been wheelchair- bound for long time. 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 He had a history of, Lasix, losartan. He has a history of chronic urinary retention and he has been doing self-catheterization at home twice daily. He has history of recurrent UTI as well. In the emergency department, patient was afebrile, blood pressure and heart rate was stable and his pulse ox was 93% on 2 L. His routine blood work was remarkable for leukocytosis, creatinine of 1.33, otherwise normal. Chest x-ray revealed poor ventilation of the right lung, no acute infiltrate. His EKG revealed normal sinus rhythm without evidence of acute ST elevation. Troponin came back high at 2.53. He is being admitted for acute complicated cystitis and acute non-ST elevation HI and acute kidney injury. 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 Allergies Cephalosporins Allergy (Intermediate, Verified 07/05/18 10:04) Laryngospasms Penicillins Allergy (Intermediate, Verified 07/05/18 10:04) Rash IVP DYE Allergy (Uncoded 07/05/18 10:04) Rash Home Medications: Ambulatory Orders Medication Instructions Recorded Multivitamins,Ther W-Minerals 1 tablet PO DAILY@1700 #30 tablet 09/18/14 [Multivitamin With Minerals] Pyridoxine HCl [Vitamin B-6] 100 mg PO DAILY@1700 #30 tablet 09/18/14 Losartan Potassium [Cozaar] 12.5 mg PO DAILY@219901/12/16 Carvedilol [Coreg] 3.125 mg PO DAILY@169911/10/16 Furosemide [Lasix] 40 mg PO DAILY@219911/10/16 Magnesium Oxide [Magnesium] 500 mg PO BID 11/10/16 Riboflavin [Vitamin B2] 200 mg PO DAILY@169911/10/16 Oxymetazoline 0.05% [Afrin (BKC)] 2 spray NASAL Q12H PRN PRN #1 11/14/16 spray.btl Hydrocortisone 20 mg PO BIDCM 01/28/18 Metformin HCl [Glucophage] 500 mg PO BIDCM 01/28/18 Ascorbic Acid [Vitamin C] 1,000 mg PO DAILY 07/05/18 Ciprofloxacin [Cipro] 500 mg PO BID 07/05/18 Docusate Sodium [Colace] 100 mg PO BID PRN 07/05/18 Escitalopram Oxalate [Lexapro] 10 mg PO DAILY 07/05/18 Gabapentin [Neurontin] 600 mg PO DAILY 07/05/18 Gabapentin [Neurontin] 900 mg PO DINNER 07/05/18 Gabapentin [Neurontin] 900 mg PO QHS 07/05/18 Garlic 500 mg PO DAILY 07/05/18 Hydrocodone/Acetaminophen 1 each PO QHS 07/05/18 [Hydrocodon-Acetaminophn 10-325] Isosorbide Mononitrate 5 mg PO QHS 07/05/18 Lofall Carbonate 150 mg PO TID 07/05/18 Morphine Sulfate [Morphine Sulfate 30 mg PO BID 07/05/18 ER] Ranitidine [Zantac] 150 mg PO BIDCM 07/05/18 Sulfamethoxazole/Trimethoprim 1 each PO DAILY 07/05/18 [Bactrim Ds Tablet] Surgical History: - - Laminectomy 2006, 2007. History of PARKS WORKER shunt for subarachnoid hemorrhage which secondarily got infected with E. coli. 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 Psychiatric History: No pertinent psych hx, - - he is very angry now and his attributes this to the steroids....she states it makes him mean. 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 Lives: Spouse/ Significant Other Smoking Status: Never smoker Alcohol: None Drugs: None - *Family History Maternal History Items: - - , depression Paternal History Items: - - Offspring History Items: - - 2 children, 4 grand children, 1 great grandchild, all in good health Review of Systems Constitutional: Reports: Fever, Weakness, Fatigue. Denies: Anorexia, Chills Eyes: Denies: Blurred vision, Double vision, Drainage, Redness HEENT: Denies: Difficulty Hearing, Ear Pain, Eye Pain, Nasal Congestion, Sore Throat Cardiovascular: Denies: Chest Pain, Chest Pressure, Chest Tightness, Heaviness, Light Headedness, Palpitations, Syncope Respiratory: Denies: Cough, Hemoptysis, Pleuritic Pain, Sputum production, Wheezing Gastrointestinal: Denies: Abdominal Pain, Constipation, Diarrhea, Nausea, Vomiting Genitourinary: Denies: Dysuria, Frequency, Hematuria Musculoskeletal: Reports: Joint Pain, Muscle pain. Denies: Arm Pain, Foot Pain Skin: Denies: Dryness, Rash Neurological: Denies: Balance problems, Double vision, Change in Speech, Slurred speech, Headaches Psychiatric: Reports: Depression. Denies: Anxiety Endocrine: Denies: Change in Body Habitus, Polydipsia VTE Information - Inpt Only VTE Present on Admission: No VTE Mechan Device Prophylaxis: None VTE Pharm Prophylaxis ordered?: Yes - Physical Exam General: Alert, Oriented x3, Cooperative, No apparent distress HEENT: Atraumatic, PERRLA, EOMI, Normocephalic Oral: Moist Mucosa, No Gingival or Mucosal Lesions/ Ulcerations Neck: Supple, No JVD, Negative Carotid Bruits, Trachea Midline, Thyroid Normal Size and Texture Lungs: Clear to auscultation, No rhonchi, No wheeze, No rales, Diminished Cardiovascular: Regular rate, Regular Rhythm, Normal S1, Normal S2, PMI Normal Abdomen: Bowel Sounds Present, Soft, Non Tender, Non-Distended, No Hepato- splenomegaly Extremities: No clubbing, No cyanosis, No edema Skin: No rashes, No breakdown Lymphatic: No Cervical, Supraclavicular, or Inguinal Adenopathy Neurological: Cranial nerves II-XII grossly intact, - - Paraplegia. Psych/Mental Status: Normal Affect, Appropriate, Alert and oriented to time, place, person, mood and affect Vital Signs Temp Pulse Resp BP Pulse Ox 98.9 F 70 14 110/76 16 07/05/18 10:02 07/05/18 12:16 07/05/18 12:16 07/05/18 12:16 07/05/18 12:16 Laboratory Tests 3 07/05/18 07/05/18 07/05/18 Range/Units 11:20 10:43 10:43 WBC (4.4-11.0) K/mm3 RBC (4.6-6.2) M/mm3 Hgb (13.0-16.5) g/dl Hct (40-54) % MCV (80-94) fL MCH (27.0-32.0) pg MCHC (32-36) g/gl RDW (11.6-14.6) % RDW Differential (35.1-43.9) fl Plt Count (150-450) K/mm3 MPV (6.2-12.0) fl Immature Gran % (Auto) (0.0-0.9) % Neut % (Auto) (47-70) % Lymph % (Auto) (19-41) % [place] % (Auto) (0-10) % Eos % (Auto) (0-5) % Baso % (Auto) (0-1) % Absolute Neuts (auto) (2.0-7.7) X10^3/uL Absolute Lymphs (auto) (0.83-4.51) X10^3/ul Total Counted PT (11.7-14.9) SECONDS INR APTT 26.4 (24.1-36.2) Seconds Sodium (136-145) mmol/L Potassium (3.5-5.1) mmol/L Chloride (98-107) mmol/L Carbon Dioxide (21.0-32.0) mmol/L Anion Gap (5-15) BUN (7-18) mg/dL Creatinine (0.70-1.30) mg/dL Estim Creat Clear Calc ml/min Est GFR (MDRD) Af Amer (>60) mL/min Est GFR (MDRD) Non-Af (>60) mL/min BUN/Creatinine Ratio (10-20) RATIO Glucose (74-106) mg/dL Lactic Acid 1.7 (0.4-2.0) mmol/L Calcium (8.5-10.1) mg/dL Troponin I (<0.045) ng/mL Urine Color Yellow (Yellow) Urine Clarity Cloudy (Clear) Urine pH 5.0 (5.0 - 8.0) Ur Specific [place] 1.020 (1.002-1.030) Urine Protein 30 H (Negative) mg/dl Urine Glucose (UA) Normal (Normal) mg/dl Urine Ketones Negative (Negative) mg/dl Urine Occult Blood 25 H (Negative) /ul Urine Nitrite Negative (Negative) Urine Bilirubin Negative (Negative) mg/dL Urine Urobilinogen 1 H (Normal) mg/dl Ur Leukocyte Esterase 500 H (Negative) /ul Urine RBC 0-5 SEEN (0-5) /hpf Urine WBC 25-50 SEEN (0-5) /hpf Ur Squamous Epith Cells 0-5 SEEN (0-5) /hpf Urine Bacteria 2+ (None Seen) /hpf Urine Mucus 0 SEEN (<or=2+) /hpf 3 07/05/18 07/05/18 07/05/18 Range/Units 10:43 10:43 10:43 WBC 16.4 H (4.4-11.0) K/mm3 RBC 3.95 L (4.6-6.2) M/mm3 Hgb 12.9 L (13.0-16.5) g/dl Hct 40.6 (40-54) % MCV 102.8 H (80-94) fL MCH 32.7 H (27.0-32.0) pg MCHC 31.8 L (32-36) g/gl RDW 13.6 (11.6-14.6) % RDW Differential 51.0 H (35.1-43.9) fl Plt Count 138 L (150-450) K/mm3 MPV 9.7 (6.2-12.0) fl Immature Gran % (Auto) 0.100 (0.0-0.9) % Neut % (Auto) 88.4 H (47-70) % Lymph % (Auto) 5.7 L (19-41) % [place] % (Auto) 5.5 (0-10) % Eos % (Auto) 0.2 (0-5) % Baso % (Auto) 0.1 (0-1) % Absolute Neuts (auto) 14.5 H (2.0-7.7) X10^3/uL Absolute Lymphs (auto) 0.93 (0.83-4.51) X10^3/ul Total Counted Not Reportable PT 13.7 (11.7-14.9) SECONDS INR 1.1 APTT (24.1-36.2) Seconds Sodium 136 (136-145) mmol/L Potassium 4.4 (3.5-5.1) mmol/L Chloride 99 (98-107) mmol/L Carbon Dioxide 34.0 H (21.0-32.0) mmol/L Anion Gap 3 L (5-15) BUN 28 H (7-18) mg/dL Creatinine 1.33 H (0.70-1.30) mg/dL Estim Creat Clear Calc 45.74 ml/min Est GFR (MDRD) Af Amer 66 (>60) mL/min Est GFR (MDRD) Non-Af 55 L (>60) mL/min BUN/Creatinine Ratio 21.1 H (10-20) RATIO Glucose 121 H (74-106) mg/dL Lactic Acid (0.4-2.0) mmol/L Calcium 8.5 (8.5-10.1) mg/dL Troponin I 2.530 H* (<0.045) ng/mL Urine Color (Yellow) Urine Clarity (Clear) Urine pH (5.0 - 8.0) Ur Specific [place] (1.002-1.030) Urine Protein (Negative) mg/dl Urine Glucose (UA) (Normal) mg/dl Urine Ketones (Negative) mg/dl Urine Occult Blood (Negative) /ul Urine Nitrite (Negative) Urine Bilirubin (Negative) mg/dL Urine Urobilinogen (Normal) mg/dl Ur Leukocyte Esterase (Negative) /ul Urine RBC (0-5) /hpf Urine WBC (0-5) /hpf Ur Squamous Epith Cells (0-5) /hpf Urine Bacteria (None Seen) /hpf Urine Mucus (<or=2+) /hpf Clinical Impression(s) from Imaging Studies Chest X-Ray 07/05/18 10:22 Assessment/Plan This is an 82 years old male patient presented to the emergency room because of weakness, fever, body aches and pains, found to have acute cystitis as well as acute non-ST elevation HI and acute kidney injury. #[address] elevation HI: EKG revealed no acute ST elevation, no acute ischemic changes. Troponin is elevated. Patient denies any chest pain. His vital signs are stable. He was started on IV heparin drip in the ER, received loading dose of Plavix. Plan: Admit to PCU, cardiac monitoring, serial cardiac enzymes, repeat EKG tomorrow morning, 2D echocardiogram, continue IV heparin drip, daily Plavix, continue Coreg, isosorbide mononitrate, losartan, cardiology consult, repeat CBC and BMP tomorrow morning, PT OT evaluation and treatment. #2 acute complicated cystitis: Context of history of chronic urinary retention on self-catheterization at home with history of recurrent UTIs. Urinalysis revealed cloudy urine, positive for leukocyte esterase, there was 25-50 cc and 2 + bacteria. Urine and blood culture sent. Lactic acid is normal. Plan: IV ciprofloxacin, follow blood and urine cultures. #3 acute kidney injury: Likely because of infection and dehydration. Admission creatinine is 1.33. Most recent creatinine was 0.79 from January,. Plan for IV fluids for hydration, repeat BMP tomorrow morning. #3 hypertension: Blood pressure is stable at this time, continue Coreg, isosorbide mononitrate, losartan with holding parameters. #4 history of transverse myelitis/subsequent paraplegia: Patient is wheelchair- bound. Supportive care, PT OT exertion and treatment. #5 history of subarachnoid hemorrhage/subsequent PARKS WORKER shunt/syringomyelia: Stable , no acute issues. #6 chronic pain syndrome: Continue gabapentin, MS Contin and Percocet as needed. 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 #8 peripheral vascular disease: Stable. #9 DVT prophylaxis: He is on IV heparin drip. This note was generated with [employer] dictation software. It may contain incorrect words, spelling, and punctuation that were not noted in checking the note before signing. Code Visit Inpatient E&M: 84750 Init Hosp L3
[2018-07-05 15:15] LABS: Bedside Glucose 126 mg/dL (70-110)
[2018-07-05] MEDS: Gabapentin 300 MG Capsule 900 MG PO ×2 (16:07→21:20)
[2018-07-05] MEDS: 0.9% Normal Saline 1,000 ML 75 ML IV (16:07)
[2018-07-05] MEDS: Pyridoxine HCl 100 MG Tablet PO (16:08)
[2018-07-05] MEDS: Carvedilol 3.125 MG TABLET PO (16:08)
[2018-07-05] MEDS: Hydrocortisone 10 MG Tablet 20 MG PO (16:08)
[2018-07-05] MEDS: Acetaminophen 325 MG Tablet 650 MG PO (16:08)
[2018-07-05] MEDS: oxyCODONE 5 MG Tablet PO (16:08)
[2018-07-05] MEDS: Docusate Sodium 100 MG Capsule PO (16:08)
[2018-07-05 19:27] LABS: Partial Thromboplast Time 54.2 Seconds (24.1-36.2)
[2018-07-05] MEDS: Losartan Potassium 25 MG Tablet 12.5 MG PO (21:19)
[2018-07-05] MEDS: Magnesium Oxide 400 MG Tablet PO (21:19)
[2018-07-05] MEDS: HYDROcodone Bitartrate/Apap 5/325 Tablet PO (21:21)
[2018-07-05] MEDS: ISOSORBIDE MONONITRATE 10 MG TABLET 5 MG PO (21:21)
[2018-07-05] MEDS: LITHIUM CARBONATE 150 MG CAPSULE PO (21:21)
[2018-07-05] MEDS: Insulin Lispro 100 UNIT/ML INSULN.PEN SC (21:33)
[2018-07-05] MEDS: Heparin Injection (Vial) 5,000 UNIT/ML VIAL IV (21:34)
[2018-07-05 23:06] LABS: Bedside Glucose 224 mg/dL (70-110)
[2018-07-06] VITALS (13 sets, daily range): BP systolic 129–168; BP diastolic 59–78; PULSE 58–147; RESP 16–18; TEMP 36.6–37.2; O2SAT 93–95
[2018-07-06] MEDS: oxyCODONE 5 MG Tablet PO ×2 (01:12→19:48)
--- NOTE | 2018-07-06 01:12 | NURSING ---
Patient expressed pain and spasming generalized continued. PRN for pain of 8 out 10 given at this time, OXYIR 5mg given.
--- NOTE | 2018-07-06 01:31 | NURSING ---
Addendum entered by Porsche Rodriguez 07/06/18 04:49: Patient did not void first 6 hrs of shift. Jackman he did not need to be straight cathed yet. Bladder scanned at 0040 for greater than 570. Informed md at 0125. Input orders per telephone order readback and straight cathed patient at this time for 850 Original Note: {Patient did not void first 6 hrs of shift. Jackman he did not need to be straight cathed yet. Bladder scanned at 0040 for greater than 570. Informed md at 0125. Input orders per telephone order readback and straight cathed patient at this time for
[2018-07-06 02:57] LABS: Absolute Neutrophil Count 9.3 X10^3/uL (2.0-7.7); Basophil# 0.01 X10^3/uL; Basophil% 0.1 % (0-1); Eosinophil# 0.04 X10^3/uL; Eosinophils% 0.4 % (0-5); Hematocrit 33.6 % (40-54); Hemoglobin 10.9 g/dl (13.0-16.5); Lymphocyte % 8.3 % (19-41); Mean Corp Hgb Conc 32.4 g/gl (32-36); Mean Corpuscular Hgb 33.2 pg (27.0-32.0); Mean Corpuscular Volume 102.4 fL (80-94); Mean Platelet Vol. 9.7 fl (6.2-12.0); Monocyte# 0.54 X10^3/uL; Neutrophil # 9.34 X10^3/uL (2.7-7.7); Platelet Count 96 K/mm3 (150-450); RBC Distribution Width CV 12.9 % (11.6-14.6); RBC Distribution Width SD 47.4 fl (35.1-43.9); Red Blood Count 3.28 M/mm3 (4.6-6.2); White Blood Count 10.9 K/mm3 (4.4-11.0)
[2018-07-06 02:58] LABS: POSITIVE COUNT NO; POSITIVE DIFFERENTIAL NO; POSITIVE MORPHOLOGY NO
[2018-07-06 03:17] LABS: Anion Gap 9 (5-15); BUN 27 mg/dL (7-18); BUN/Creat Ratio 29.3 RATIO (10-20); Calcium,Total 7.8 mg/dL (8.5-10.1); Chloride 105 mmol/L (98-107); Cholesterol 107 mg/dL (200); Creatinine, Serum 0.92 mg/dL (0.70-1.30); EST Glomerular Filtration Rate 84 mL/min (>60); Est Glom Filt Rate - Afr Amer 102 mL/min (>60); Estimated Creatinine Clearance 66.12 ml/min; Glucose 150 mg/dL (74-106); High Density Lipoprotein 37 mg/dL; Partial Thromboplast Time 87.9 Seconds (24.1-36.2); Potassium 4.1 mmol/L (3.5-5.1); Sodium Level 139 mmol/L (136-145); Triglycerides 100 mg/dL; Very Low Density Lipoprotein 20 mg/dL (5-40)
[2018-07-06] MEDS: Sodium Chloride 0.65% 1 SPRAY SPRAY.BTL NASAL (03:24)
[2018-07-06] MEDS: 0.9% Normal Saline 1,000 ML 75 ML IV ×2 (05:15→21:47)
[2018-07-06] MEDS: LITHIUM CARBONATE 150 MG CAPSULE PO ×3 (05:15→21:50)
[2018-07-06 07:00] LABS: Bedside Glucose 113 mg/dL (70-110)
--- NOTE | 2018-07-06 07:49 | PCM.PROGNOTE ---
Subjective: Chief complaint: Follow-up after admission for non-STEMI and acute cystitis. Patient seen and examined. This morning, he complained of muscle spasm and muscle pain in both legs. This is chronic but has been getting worse over the last week according to the patient. He denies any chest pain or shortness of breath. His vital signs are stable. - Physical Exam General: Alert, Oriented x3, Cooperative, No apparent distress HEENT: Atraumatic, PERRLA, EOMI, Normocephalic Oral: Moist Mucosa, No Gingival or Mucosal Lesions/ Ulcerations Neck: Supple, No JVD, Negative Carotid Bruits, Trachea Midline, Thyroid Normal Size and Texture Lungs: Clear to auscultation, No rhonchi, No wheeze, No rales, Diminished Cardiovascular: Regular rate, Regular Rhythm, Normal S1, Normal S2, PMI Normal Abdomen: Bowel Sounds Present, Soft, Non Tender, Non-Distended, No Hepato-splenomegaly Extremities: No clubbing, No cyanosis, No edema Skin: No rashes, No breakdown Lymphatic: No Cervical, Supraclavicular, or Inguinal Adenopathy Neurological: Cranial nerves II-XII grossly intact, - - Paraplegia Psych/Mental Status: Normal Affect, Appropriate, Alert and oriented to time, place, person, mood and affect Vital Signs Temp Pulse Resp BP Pulse Ox 97.8 F 77 16 129/62 H 94 07/06/18 03:11 07/06/18 07:14 07/06/18 03:11 07/06/18 03:11 07/06/18 03:11 Oxygen Flow Rate (L/min) 2 Oxygen Delivery Method Room Air Weight: 174 lb 6.17 oz Body Mass Index (BMI) 25.0 Intake and Output for Last 24 Hours 07/04/18 07/05/18 07/06/18 23:59 23:59 23:59 Intake Total 1151.2 / 1151.2 1956 / 1956 Output Total 1200 / 1200 Balance 1151.2 / 1151.2 757 / 757 Laboratory Tests Past 24 Hrs 07/05/18 07/05/18 07/05/18 13:42 17:02 18:48 WBC RBC Hgb Hct MCV MCH MCHC RDW RDW Differential Plt Count MPV Immature Gran % (Auto) Neut % (Auto) Lymph % (Auto) [place] % (Auto) Eos % (Auto) Baso % (Auto) Absolute Neuts (auto) Absolute Lymphs (auto) Total Counted APTT 54.2 H Sodium Potassium Chloride Carbon Dioxide Anion Gap BUN Creatinine Estim Creat Clear Calc Est GFR (MDRD) Af Amer Est GFR (MDRD) Non-Af BUN/Creatinine Ratio Glucose Calcium Troponin I 2.460 H* 1.660 H* Triglycerides Cholesterol LDL Cholesterol VLDL Cholesterol HDL Cholesterol 07/06/18 07/06/18 07/06/18 02:45 02:45 02:45 WBC 10.9 RBC 3.28 L Hgb 10.9 L Hct 33.6 L MCV 102.4 H MCH 33.2 H MCHC 32.4 RDW 12.9 RDW Differential 47.4 H Plt Count 96 L MPV 9.7 Immature Gran % (Auto) 0.200 Neut % (Auto) 86.0 H Lymph % (Auto) 8.3 L [place] % (Auto) 5.0 Eos % (Auto) 0.4 Baso % (Auto) 0.1 Absolute Neuts (auto) 9.3 H Absolute Lymphs (auto) 0.90 Total Counted Not Reportable APTT 87.9 H Sodium 139 Potassium 4.1 Chloride 105 Carbon Dioxide 25.0 Anion Gap 9 BUN 27 H Creatinine 0.92 Estim Creat Clear Calc 66.12 Est GFR (MDRD) Af Amer 102 Est GFR (MDRD) Non-Af 84 BUN/Creatinine Ratio 29.3 H Glucose 150 H Calcium 7.8 L Troponin I Triglycerides 100 Cholesterol 107 LDL Cholesterol 50 VLDL Cholesterol 20 HDL Cholesterol 37 L POC Glucose 07/06/18 07/05/18 07/05/18 06:57 21:15 15:11 POC Glucose 113 H 224 H 126 H Medical Necessity - Tobacco Use Smoking Status: Never smoker Assessment/Plan This is an 82 years old male patient presented to the emergency room because of weakness, fever, body aches and pains, found to have acute cystitis as well as acute non-ST elevation [place] and acute kidney injury. #[address] elevation [place]: Patient remained chest pain-free. Troponin is trending down. Repeat EKG from today revealed normal sinus rhythm, minimal ST depression in V5 and V6, otherwise no acute ischemic changes. 2D echocardiogram revealed ejection fraction of 65%, mild aortic stenosis. He is on IV heparin drip, Plavix, Coreg, isosorbide mononitrate and losartan. Awaiting cardiology recommendations. #2 acute complicated cystitis: Context of history of chronic urinary retention on self-catheterization at home with history of recurrent UTIs. He is on IV ciprofloxacin. He remained afebrile, white blood cell count is back to normal. Urine and blood cultures are pending. Plan to continue same treatment. #3 acute kidney injury: Likely because of infection and dehydration. Admission creatinine is 1.33. He has been on IV fluids, creatinine is down to 0.92, improved. #3 hypertension: Blood pressure is stable, continue Coreg, isosorbide mononitrate, losartan with holding parameters. #4 history of transverse myelitis/subsequent paraplegia: Patient is wheelchair-bound. Supportive care, PT OT exertion and treatment. 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 #6 chronic pain syndrome: He is on gabapentin, MS Contin and Percocet as needed. OxyIR added for pain as needed. Patient still symptomatic, complaining of bilateral leg muscle cramps and pain as well as back pain. Plan to add Flexeril 10 mg p.o. every 8 hours as needed. 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 #8 peripheral vascular disease: Stable. #9 DVT prophylaxis: He is on IV heparin drip. This note was generated with [employer] dictation software. It may contain incorrect words, spelling, and punctuation that were not noted in checking the note before signing. Code Visit Inpatient E&M: 44662 Subs Hosp L2
--- NOTE | 2018-07-06 07:53 | PN_ITS ---
Subjective: Chief complaint: Follow-up after admission for non-STEMI and acute cystitis. Patient seen and examined. This morning, he complained of muscle spasm and muscle pain in both legs. This is chronic but has been getting worse over the last week according to the patient. He denies any chest pain or shortness of breath. His vital signs are stable. - Physical Exam General: Alert, Oriented x3, Cooperative, No apparent distress HEENT: Atraumatic, PERRLA, EOMI, Normocephalic Oral: Moist Mucosa, No Gingival or Mucosal Lesions/ Ulcerations Neck: Supple, No JVD, Negative Carotid Bruits, Trachea Midline, Thyroid Normal Size and Texture Lungs: Clear to auscultation, No rhonchi, No wheeze, No rales, Diminished Cardiovascular: Regular rate, Regular Rhythm, Normal S1, Normal S2, PMI Normal Abdomen: Bowel Sounds Present, Soft, Non Tender, Non-Distended, No Hepato- splenomegaly Extremities: No clubbing, No cyanosis, No edema Skin: No rashes, No breakdown Lymphatic: No Cervical, Supraclavicular, or Inguinal Adenopathy Neurological: Cranial nerves II-XII grossly intact, - - Paraplegia Psych/Mental Status: Normal Affect, Appropriate, Alert and oriented to time, place, person, mood and affect Vital Signs Temp Pulse Resp BP Pulse Ox 97.8 F 77 16 129/62 H 94 07/06/18 03:11 07/06/18 07:14 07/06/18 03:11 07/06/18 03:11 07/06/18 03:11 Oxygen Flow Rate (L/min) 2 Oxygen Delivery Method Room Air Weight: 174 lb 6.17 oz Body Mass Index (BMI) 25.0 Intake and Output for Last 24 Hours 07/04/18 07/05/18 07/06/18 23:59 23:59 23:59 Intake Total 1151.2 / 1151.2 1956 / 1956 Output Total 1200 / 1200 Balance 1151.2 / 1151.2 757 / 757 Laboratory Tests Past 24 Hrs 07/05/18 07/05/18 07/05/18 13:42 17:02 18:48 WBC RBC Hgb Hct MCV MCH MCHC RDW RDW Differential Plt Count MPV Immature Gran % (Auto) Neut % (Auto) Lymph % (Auto) [place] % (Auto) Eos % (Auto) Baso % (Auto) Absolute Neuts (auto) Absolute Lymphs (auto) Total Counted APTT 54.2 H Sodium Potassium Chloride Carbon Dioxide Anion Gap BUN Creatinine Estim Creat Clear Calc Est GFR (MDRD) Af Amer Est GFR (MDRD) Non-Af BUN/Creatinine Ratio Glucose Calcium Troponin I 2.460 H* 1.660 H* Triglycerides Cholesterol LDL Cholesterol VLDL Cholesterol HDL Cholesterol 07/06/18 07/06/18 07/06/18 02:45 02:45 02:45 WBC 10.9 RBC 3.28 L Hgb 10.9 L Hct 33.6 L MCV 102.4 H MCH 33.2 H MCHC 32.4 RDW 12.9 RDW Differential 47.4 H Plt Count 96 L MPV 9.7 Immature Gran % (Auto) 0.200 Neut % (Auto) 86.0 H Lymph % (Auto) 8.3 L [place] % (Auto) 5.0 Eos % (Auto) 0.4 Baso % (Auto) 0.1 Absolute Neuts (auto) 9.3 H Absolute Lymphs (auto) 0.90 Total Counted Not Reportable APTT 87.9 H Sodium 139 Potassium 4.1 Chloride 105 Carbon Dioxide 25.0 Anion Gap 9 BUN 27 H Creatinine 0.92 Estim Creat Clear Calc 66.12 Est GFR (MDRD) Af Amer 102 Est GFR (MDRD) Non-Af 84 BUN/Creatinine Ratio 29.3 H Glucose 150 H Calcium 7.8 L Troponin I Triglycerides 100 Cholesterol 107 LDL Cholesterol 50 VLDL Cholesterol 20 HDL Cholesterol 37 L POC Glucose 07/06/18 07/05/18 07/05/18 06:57 21:15 15:11 POC Glucose 113 H 224 H 126 H Medical Necessity - Tobacco Use Smoking Status: Never smoker Assessment/Plan This is an 82 years old male patient presented to the emergency room because of weakness, fever, body aches and pains, found to have acute cystitis as well as acute non-ST elevation [place] and acute kidney injury. #[address] elevation [place]: Patient remained chest pain-free. Troponin is trending down. Repeat EKG from today revealed normal sinus rhythm, minimal ST depression in V5 and V6, otherwise no acute ischemic changes. 2D echocardiogram revealed ejection fraction of 65%, mild aortic stenosis. He is on IV heparin drip, Plavix, Coreg, isosorbide mononitrate and losartan. Awaiting cardiology recommendations. #2 acute complicated cystitis: Context of history of chronic urinary retention on self-catheterization at home with history of recurrent UTIs. He is on IV ciprofloxacin. He remained afebrile, white blood cell count is back to normal. Urine and blood cultures are pending. Plan to continue same treatment. #3 acute kidney injury: Likely because of infection and dehydration. Admission creatinine is 1.33. He has been on IV fluids, creatinine is down to 0.92, improved. #3 hypertension: Blood pressure is stable, continue Coreg, isosorbide mononitrate, losartan with holding parameters. #4 history of transverse myelitis/subsequent paraplegia: Patient is wheelchair- bound. Supportive care, PT OT exertion and treatment. 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 #6 chronic pain syndrome: He is on gabapentin, MS Contin and Percocet as needed. OxyIR added for pain as needed. Patient still symptomatic, complaining of bilateral leg muscle cramps and pain as well as back pain. Plan to add Flexeril 10 mg p.o. every 8 hours as needed. 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 #8 peripheral vascular disease: Stable. #9 DVT prophylaxis: He is on IV heparin drip. This note was generated with [employer] dictation software. It may contain incorrect words, spelling, and punctuation that were not noted in checking the note before signing. Code Visit Inpatient E&M: 36967 Subs Hosp L2
[2018-07-06] MEDS: Hydrocortisone 10 MG Tablet 20 MG PO ×2 (08:07→15:35)
[2018-07-06] MEDS: Gabapentin 600 MG Tablet PO (08:08)
[2018-07-06] MEDS: Smz/Tmp Ds Tablet 1 TABLET PO (08:08)
[2018-07-06] MEDS: Escitalopram Oxalate 10 MG Tablet PO (08:08)
[2018-07-06] MEDS: Magnesium Oxide 400 MG Tablet PO ×2 (08:08→21:50)
[2018-07-06] MEDS: Famotidine 20 MG Tablet PO (08:09)
[2018-07-06] MEDS: Clopidogrel Bisulfate 75 MG Tablet PO (08:09)
[2018-07-06 09:28] LABS: Partial Thromboplast Time 61.8 Seconds (24.1-36.2)
[2018-07-06] MEDS: Ciprofloxacin 400 MG/200 ML BAG 200 MG IV ×2 (10:01→21:48)
[2018-07-06] MEDS: HEPARIN/D5w 25,000 UNITS 25,000 UNITS/250 ML IV.SOLN. 11 UNITS IV (11:29)
[2018-07-06 11:41] LABS: Bedside Glucose 136 mg/dL (70-110)
--- NOTE | 2018-07-06 15:19 | CASEMGMT ---
Addendum entered by Nahomy Esposito 07/06/18 16:05: W can take pt on Monday or after. SW let pt and know that pt can go to [facility] on Monday or after. Green sheet on chart, in anticipation of possible Monday discharge. SW completed hospital exemption in [place], placed this on the chart along w/the green sheet and transport form. Nini at [facility] checked pt's insurance, Medicare is primary. SEBASTIÁN Hazel, CONTINUOUS MINER Original Note: See assessment. SW spoke w/pt initially regarding discharge options. Pt agreeable that he may need to go somewhere for rehab, but not sure where. SW explained will bring pt a list. SW brought SNF list, pt's is now in the room, pt asleep. states pt has been to [facility] and was happy with their services. SW explained will make referral to [facility], will let them know what [facility] says. SW called [facility], spoke w/Nini, referral faxed. She is to call this SW back and let SW know if they can take pt. SW will await call back. SEBASTIÁN Hazel, CONTINUOUS MINER
[2018-07-06] MEDS: Carvedilol 3.125 MG TABLET PO (15:35)
[2018-07-06] MEDS: Pyridoxine HCl 100 MG Tablet PO (15:36)
[2018-07-06] MEDS: Gabapentin 300 MG Capsule 900 MG PO ×2 (15:36→21:51)
[2018-07-06 15:50] LABS: Bedside Glucose 120 mg/dL (70-110)
--- NOTE | 2018-07-06 16:22 | NM_ITS ---
Procedure: Stress and rest myocardial perfusion scan. History: Coronary artery disease. Technique: Rest SPECT perfusion scan was performed after the IV administration of 12 mCi technetium Myoview. The patient was then given a standard IV dose of Lexiscan. Stress SPECT imaging was performed after the IV administration of approximately 36.2 mCi technetium Myoview. Comparison: None Findings: There is a small apical anterior wall defect, at both stress and rest. Findings suggest infarct without ischemia. There are no definite wall motion abnormalities. Ejection fraction is normal at 54 %. NM/Nuclear Stress Test - Chemical IMPRESSION: Findings consistent with a relatively small apical anterior infarct. Ejection fraction is at lower limits of normal at 54%. Electronically Signed: Faustino Mauro MD at 11:51 EDT , Service support ,
[2018-07-06 16:34] LABS: Partial Thromboplast Time 50.7 Seconds (24.1-36.2)
[2018-07-06] MEDS: Heparin Injection (Vial) 5,000 UNIT/ML VIAL IV ×2 (16:42→23:24)
--- NOTE | 2018-07-06 17:19 | PCM.CONS.C ---
Problem List (1) Non-STEMI (non-ST elevated myocardial infarction) Status: Acute (2) Abnormal EKG Status: Acute (3) Nocardia infection Status: Chronic Comment: 2005, right arm and left leg, continued suppressive therapy (4) HTN (hypertension) Status: Chronic Qualifiers: (5) PAD (peripheral artery disease) Status: Chronic Reason for Consult Date of Consultation: 07/06/18 Reason for Consultation: Abnormal EKG, non-STEMI, hypertension, hypercholesterolemia, peripheral vascular disease History of Present Illness: The patient is a 82 year old M, nondiabetic, with hypertension, unknown cholesterol, no previous known coronary artery disease, who suffered a subarachnoid hemorrhage in 2003 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 Patient has been paralyzed since 2005, and has had chronic cystitis with self-catheterization. In addition the patient has had a history of chronic nocardia infection along a previous surgery in his right forearm and brachial area for which he takes chronic antibiotic therapy. Around Monday night of this past week the patient developed some confusion and was not feeling well. This was similar to his urinary tract infection symptoms. His PCP was called and he was started on oral antibiotics on Monday. His mental confusion worsened and he gave way to slurred speech and dysarthria. Patient was brought to the emergency room for evaluation. Apparently no CT scan was performed. In the emergency room an EKG was obtained which demonstrated normal sinus rhythm with significant inferior and anterolateral ST segment depression. At no time the patient have any chest pain or shortness of breath. This gave way to troponin evaluation which was initially 2.55, decreased down to 1.66. Patient was started on aspirin and IV heparin. Patient was treated IV antibiotics and is slowly improving. He is mentating well, and has no further speech issues. He is remained hemodynamically stable. A 2D echo with Doppler was performed today which demonstrates intact LV function with an EF around 65%, mild aortic stenosis with mild aortic valvular thickening, stage II diastolic dysfunction, unable to quantitate RVSP Today his EKG has normalized to normal sinus rhythm with very subtle inferolateral ST segment changes..] Past Medical History Allergies/Adverse Reactions: Allergies Cephalosporins Allergy (Intermediate, Verified 07/05/18 10:04) Laryngospasms Penicillins Allergy (Intermediate, Verified 07/05/18 10:04) Rash IVP DYE Allergy (Uncoded 07/05/18 10:04) Rash Home Medications: Ambulatory Orders Medication Instructions Recorded Multivitamins,Ther W-Minerals 1 tablet PO DAILY@1700 #30 tablet 09/18/14 [Multivitamin With Minerals] Pyridoxine HCl [Vitamin B-6] 100 mg PO DAILY@1700 #30 tablet 09/18/14 Losartan Potassium [Cozaar] 12.5 mg PO DAILY@2200 01/12/16 Carvedilol [Coreg] 3.125 mg PO DAILY@1700 11/10/16 Furosemide [Lasix] 40 mg PO DAILY@2200 11/10/16 Magnesium Oxide [Magnesium] 500 mg PO BID 11/10/16 Riboflavin [Vitamin B2] 300 mg PO DAILY@169911/10/16 Oxymetazoline 0.05% [Afrin (BKC)] 2 spray NASAL Q12H PRN PRN #1 11/14/16 spray.btl Hydrocortisone 20 mg PO BIDCM 01/28/18 Metformin HCl [Glucophage] 500 mg PO BIDCM 01/28/18 Ascorbic Acid [Vitamin C] 1,000 mg PO DAILY 07/05/18 Ciprofloxacin [Cipro] 500 mg PO BID 07/05/18 Docusate Sodium [Colace] 100 mg PO BID PRN 07/05/18 Escitalopram Oxalate [Lexapro] 10 mg PO DAILY 07/05/18 Gabapentin [Neurontin] 600 mg PO DAILY 07/05/18 Gabapentin [Neurontin] 900 mg PO DINNER 07/05/18 Gabapentin [Neurontin] 900 mg PO QHS 07/05/18 Garlic 500 mg PO DAILY 07/05/18 Hydrocodone/Acetaminophen 1 each PO QHS 07/05/18 [Hydrocodon-Acetaminophn 10-325] Isosorbide Mononitrate 5 mg PO QHS 07/05/18 [place] Carbonate 150 mg PO TID 07/05/18 Morphine Sulfate [Morphine Sulfate 30 mg PO BID 07/05/18 ER] Ranitidine [Zantac] 150 mg PO BIDCM 07/05/18 Sulfamethoxazole/Trimethoprim 1 each PO DAILY 07/05/18 [Bactrim Ds Tablet] Past Medical History (Chronic Problems): Chronic Problems Chronic pain (Chronic) Nocardia infection (Chronic) 2004, right arm and left leg, continued suppressive therapy 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 History of VOCATIONAL REHABILITATION TEACHER shunt for subarachnoid hemorrhage which secondarily got infected with E. coli. 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 Psychiatric History: No pertinent psych hx, - - he is very angry now and his attributes this to the steroids....she states it makes him mean. 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 - *Family History Maternal History Items: - - , depression Paternal History Items: - - Offspring History Items: - - 2 children, 4 grand children, 1 great grandchild, all in good health Lives: Spouse/ Significant Other Smoking Status: Never smoker Alcohol: None Drugs: None Review of Systems - Review of Systems General: Denies: Fever, Night Sweats, Fatigue Cardiovascular: Denies: Chest Discomfort, Shortness of Breath, Orthopnea, PND, Peripheral Edema, Palpitations, Lightheadedness, Dizziness, Near Syncope, Syncope Respiratory: Denies: Cough, Sputum Production, Hemoptysis Gastrointestinal: Denies: Hematemesis, Hematochezia, Melena Genitourinary: Denies: Dysuria, Hematuria Skin: Denies: Rash Subjectve: Patient laying in bed, no acute distress. Objective: Vital Signs Temp Pulse Resp BP Pulse Ox 98.9 F 75 16 129/59 H 94 07/06/18 15:00 07/06/18 15:13 07/06/18 15:00 07/06/18 15:00 07/06/18 15:00 Oxygen Flow Rate (L/min) 2 Oxygen Delivery Method Room Air Weight: 174 lb 6.17 oz Body Mass Index (BMI) 25.0 Intake and Output for Last 24 Hours 07/04/18 07/05/18 07/06/18 23:59 23:59 23:59 Intake Total 1151.2 / 1151.2 3450 / 3450 Output Total 1925 / 1925 Balance 1151.2 / 1151.2 1525 / 1525 General: Awake, Alert, Oriented x 3 HEENT: PERRL, EOMI, Sclera Non Icteric Neck: Supple, Good ROM, No Lymph Node Enlargement Lungs: Clear to auscultation Cardiovascular: Regular Rhythm, Normal S1, Normal S2, No Rubs, No Gallops Murmur Murmur: Grade 2/6, Crescendo-Decrescendo Vascular: No Carotid Bruits, Normal Femoral Pulses, Normal Radial Pulses, Normal Dorsalis Pedal Pulse, Normal Posterior Tibial Pulses Abdomen: Bowel Sounds Present, Soft, Non Tender, No HSM, No Organomegaly Extremities: No Cyanosis, No Clubbing, No edema Neurological: No Focal Motor or Sensory Deficit 07/05/18 17:02: Troponin I 1.660 H* 07/05/18 18:48: APTT 54.2 H 07/06/18 02:45: Sodium 139, Potassium 4.1, Chloride 105, Carbon Dioxide 25.0, Anion Gap 9, BUN 27 H, Creatinine 0.92, Est GFR (MDRD) Af Amer 102, Est GFR (MDRD) Non-Af 84, BUN/Creatinine Ratio 29.3 H, Glucose 150 H, Calcium 7.8 L, Triglycerides 100, Cholesterol 107, LDL Cholesterol 50, VLDL Cholesterol 20, HDL Cholesterol 37 L 07/06/18 02:45: WBC 10.9, RBC 3.28 L, Hgb 10.9 L, Hct 33.6 L, MCV 102.4 H, MCH 33.2 H, MCHC 32.4, RDW 12.9, RDW Differential 47.4 H, Plt Count 96 L, MPV 9.7, Immature Gran % (Auto) 0.200, Neut % (Auto) 86.0 H, Lymph % (Auto) 8.3 L, [place] % (Auto) 5.0, Eos % (Auto) 0.4, Baso % (Auto) 0.1, Absolute Neuts (auto) 9.3 H, Total Counted Not Reportable 07/06/18 02:45: APTT 87.9 H 07/06/18 08:50: APTT 61.8 H 07/06/18 16:02: APTT 50.7 H Rhythm: EKG: As above ECHO: As above Stress Test: Cardiac Cath: PCI: CT Surgery: Holter monitor: EPS: PPM: CXR: Chest CT Scan: Assessment/Plan 1. Non-STEMI: Patient appears to have had a recurrence of his urinary tract infection, but this time with significant feeling of unwellness, dysarthria, and confusion. The patient has improved with IV antibiotics. His initial EKG showed what appeared to be ischemia along the inferior lateral leads. His echocardiogram shows normal intact LV function, unable to quantitate RVSP. His troponins initially were 2.5 and about trended down to 1.66. At no time as the patient developed any chest pain or anginal symptoms although he has several risk factors for coronary artery disease. I am concerned that the patient has had a history of subarachnoid hemorrhage, status post VOCATIONAL REHABILITATION TEACHER shunt, and chronic nocardia in his right forearm. My preference would be to fully evaluate the patient in light of his normal LV function with a non-walking nuclear stress test to help identify any possible areas of ischemia. The patient has any evidence of ischemia on his nuclear imaging, would recommend a diagnostic coronary angiogram. The patient states that he is able to lay flat, and given his chronic nocardia in his right forearm, I am hesitant to proceed with right radial approach. The patient may be better served with right femoral artery approach should a catheterization be necessary. In the meantime I recommend continuing baby aspirin and Plavix at this time for his non-STEMI in the short-term, but would not continue in the long-term given his history of blood in his cerebral spinal fluid.. His VOCATIONAL REHABILITATION TEACHER shunt was removed in 2005 and a subarachnoid hemorrhage was in 2003. The patient had been on previous anticoagulant therapy in the past however he developed blood in his cerebral spinal fluid and this was discontinued several years ago. Note that the patient is on aspirin and Plavix, would recommend discontinuation of his heparin tomorrow morning 07/07/18. 2. Hyperlipidemia: Recommend obtaining a fasting lipid profile. 3. Hypertension: Patient's blood pressure appears to be fairly well-controlled. Continue antihypertensive therapy. 4. Thank you very much for the opportunity to participate in the cardiac care of your patient. Consultation time took place between 4 and 4:30 PM. Code Visit Inpatient E&M: 26731 In Hosp L2
--- NOTE | 2018-07-06 17:24 | CON.PCM_ITS ---
Problem List (1) Non-STEMI (non-ST elevated myocardial infarction) Status: Acute (2) Abnormal EKG Status: Acute (3) Nocardia infection Status: Chronic Comment: 2005, right arm and left leg, continued suppressive therapy (4) HTN (hypertension) Status: Chronic Qualifiers: (5) PAD (peripheral artery disease) Status: Chronic Reason for Consult Date of Consultation: 07/06/18 Reason for Consultation: Abnormal EKG, non-STEMI, hypertension, hypercholesterolemia, peripheral vascular disease History of Present Illness: The patient is a 82 year old M, nondiabetic, with hypertension, unknown cholesterol, no previous known coronary artery disease, who suffered a subarachnoid hemorrhage in 2003 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 Patient has been paralyzed since 2005, and has had chronic cystitis with self-catheterization. In addition the patient has had a history of chronic nocardia infection along a previous surgery in his right forearm and brachial area for which he takes chronic antibiotic therapy. Around Monday night of this past week the patient developed some confusion and was not feeling well. This was similar to his urinary tract infection symptoms. His PCP was called and he was started on oral antibiotics on Monday. His mental confusion worsened and he gave way to slurred speech and dysarthria. Patient was brought to the emergency room for evaluation. Apparently no CT scan was performed. In the emergency room an EKG was obtained which demonstrated normal sinus rhythm with significant inferior and anterolateral ST segment depression. At no time the patient have any chest pain or shortness of breath. This gave way to troponin evaluation which was initially 2.55, decreased down to 1.66. Patient was started on aspirin and IV heparin. Patient was treated IV antibiotics and is slowly improving. He is mentating well, and has no further speech issues. He is remained hemodynamically stable. A 2D echo with Doppler was performed today which demonstrates intact LV function with an EF around 65%, mild aortic stenosis with mild aortic valvular thickening, stage II diastolic dysfunction, unable to quantitate RVSP Today his EKG has normalized to normal sinus rhythm with very subtle inferolateral ST segment changes..] Past Medical History Allergies/Adverse Reactions: Allergies Cephalosporins Allergy (Intermediate, Verified 07/05/18 10:04) Laryngospasms Penicillins Allergy (Intermediate, Verified 07/05/18 10:04) Rash IVP DYE Allergy (Uncoded 07/05/18 10:04) Rash Home Medications: Ambulatory Orders Medication Instructions Recorded Multivitamins,Ther W-Minerals 1 tablet PO DAILY@1700 #30 tablet 09/18/14 [Multivitamin With Minerals] Pyridoxine HCl [Vitamin B-6] 100 mg PO DAILY@1700 #30 tablet 09/18/14 Losartan Potassium [Cozaar] 12.5 mg PO DAILY@2200 01/12/16 Carvedilol [Coreg] 3.125 mg PO DAILY@1700 11/10/16 Furosemide [Lasix] 40 mg PO DAILY@2200 11/10/16 Magnesium Oxide [Magnesium] 500 mg PO BID 11/10/16 Riboflavin [Vitamin B2] 300 mg PO DAILY@169911/10/16 Oxymetazoline 0.05% [Afrin (BKC)] 2 spray NASAL Q12H PRN PRN #1 11/14/16 spray.btl Hydrocortisone 20 mg PO BIDCM 01/28/18 Metformin HCl [Glucophage] 500 mg PO BIDCM 01/28/18 Ascorbic Acid [Vitamin C] 1,000 mg PO DAILY 07/05/18 Ciprofloxacin [Cipro] 500 mg PO BID 07/05/18 Docusate Sodium [Colace] 100 mg PO BID PRN 07/05/18 Escitalopram Oxalate [Lexapro] 10 mg PO DAILY 07/05/18 Gabapentin [Neurontin] 600 mg PO DAILY 07/05/18 Gabapentin [Neurontin] 900 mg PO DINNER 07/05/18 Gabapentin [Neurontin] 900 mg PO QHS 07/05/18 Garlic 500 mg PO DAILY 07/05/18 Hydrocodone/Acetaminophen 1 each PO QHS 07/05/18 [Hydrocodon-Acetaminophn 10-325] Isosorbide Mononitrate 5 mg PO QHS 07/05/18 [place] Carbonate 150 mg PO TID 07/05/18 Morphine Sulfate [Morphine Sulfate 30 mg PO BID 07/05/18 ER] Ranitidine [Zantac] 150 mg PO BIDCM 07/05/18 Sulfamethoxazole/Trimethoprim 1 each PO DAILY 07/05/18 [Bactrim Ds Tablet] Past Medical History (Chronic Problems): Chronic Problems Chronic pain (Chronic) Nocardia infection (Chronic) 2004, right arm and left leg, 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 History of SUPPLY ASSISTANT shunt for subarachnoid hemorrhage which secondarily got infected with E. coli. 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 Psychiatric History: No pertinent psych hx, - - he is very angry now and his attributes this to the steroids....she states it makes him mean. 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 - *Family History Maternal History Items: - - , depression Paternal History Items: - - Offspring History Items: - - 2 children, 4 grand children, 1 great grandchild, all in good health Lives: Spouse/ Significant Other Smoking Status: Never smoker Alcohol: None Drugs: None Review of Systems - Review of Systems General: Denies: Fever, Night Sweats, Fatigue Cardiovascular: Denies: Chest Discomfort, Shortness of Breath, Orthopnea, PND, Peripheral Edema, Palpitations, Lightheadedness, Dizziness, Near Syncope, Syncope Respiratory: Denies: Cough, Sputum Production, Hemoptysis Gastrointestinal: Denies: Hematemesis, Hematochezia, Melena Genitourinary: Denies: Dysuria, Hematuria Skin: Denies: Rash Subjectve: Patient laying in bed, no acute distress. Objective: Vital Signs Temp Pulse Resp BP Pulse Ox 98.9 F 75 16 129/59 H 94 07/06/18 15:00 07/06/18 15:13 07/06/18 15:00 07/06/18 15:00 07/06/18 15:00 Oxygen Flow Rate (L/min) 2 Oxygen Delivery Method Room Air Weight: 174 lb 6.17 oz Body Mass Index (BMI) 25.0 Intake and Output for Last 24 Hours 07/04/18 07/05/18 07/06/18 23:59 23:59 23:59 Intake Total 1151.2 / 1151.2 3450 / 3450 Output Total 1925 / 1925 Balance 1151.2 / 1151.2 1525 / 1525 General: Awake, Alert, Oriented x 3 HEENT: PERRL, EOMI, Sclera Non Icteric Neck: Supple, Good ROM, No Lymph Node Enlargement Lungs: Clear to auscultation Cardiovascular: Regular Rhythm, Normal S1, Normal S2, No Rubs, No Gallops Murmur Murmur: Grade 2/6, Crescendo-Decrescendo Vascular: No Carotid Bruits, Normal Femoral Pulses, Normal Radial Pulses, Normal Dorsalis Pedal Pulse, Normal Posterior Tibial Pulses Abdomen: Bowel Sounds Present, Soft, Non Tender, No HSM, No Organomegaly Extremities: No Cyanosis, No Clubbing, No edema Neurological: No Focal Motor or Sensory Deficit 07/05/18 17:02: Troponin I 1.660 H* 07/05/18 18:48: APTT 54.2 H 07/06/18 02:45: Sodium 139, Potassium 4.1, Chloride 105, Carbon Dioxide 25.0, Anion Gap 9, BUN 27 H, Creatinine 0.92, Est GFR (MDRD) Af Amer 102, Est GFR ( MDRD) Non-Af 84, BUN/Creatinine Ratio 29.3 H, Glucose 150 H, Calcium 7.8 L, Triglycerides 100, Cholesterol 107, LDL Cholesterol 50, VLDL Cholesterol 20, HDL Cholesterol 37 L 07/06/18 02:45: WBC 10.9, RBC 3.28 L, Hgb 10.9 L, Hct 33.6 L, MCV 102.4 H, MCH 33.2 H, MCHC 32.4, RDW 12.9, RDW Differential 47.4 H, Plt Count 96 L, MPV 9.7, Immature Gran % (Auto) 0.200, Neut % (Auto) 86.0 H, Lymph % (Auto) 8.3 L, [place] % (Auto) 5.0, Eos % (Auto) 0.4, Baso % (Auto) 0.1, Absolute Neuts (auto) 9.3 H, Total Counted Not Reportable 07/06/18 02:45: APTT 87.9 H 07/06/18 08:50: APTT 61.8 H 07/06/18 16:02: APTT 50.7 H Rhythm: EKG: As above ECHO: As above Stress Test: Cardiac Cath: PCI: CT Surgery: Holter monitor: EPS: PPM: CXR: Chest CT Scan: Assessment/Plan 1. Non-STEMI: Patient appears to have had a recurrence of his urinary tract infection, but this time with significant feeling of unwellness, dysarthria, and confusion. The patient has improved with IV antibiotics. His initial EKG showed what appeared to be ischemia along the inferior lateral leads. His echocardiogram shows normal intact LV function, unable to quantitate RVSP. His troponins initially were 2.5 and about trended down to 1.66. At no time as the patient developed any chest pain or anginal symptoms although he has several risk factors for coronary artery disease. I am concerned that the patient has had a history of subarachnoid hemorrhage, status post SUPPLY ASSISTANT shunt, and chronic nocardia in his right forearm. My preference would be to fully evaluate the patient in light of his normal LV function with a non-walking nuclear stress test to help identify any possible areas of ischemia. The patient has any evidence of ischemia on his nuclear imaging, would recommend a diagnostic coronary angiogram. The patient states that he is able to lay flat, and given his chronic nocardia in his right forearm, I am hesitant to proceed with right radial approach. The patient may be better served with right femoral artery approach should a catheterization be necessary. In the meantime I recommend continuing baby aspirin and Plavix at this time for his non-STEMI in the short-term, but would not continue in the long-term given his history of blood in his cerebral spinal fluid.. His SUPPLY ASSISTANT shunt was removed in 2005 and a subarachnoid hemorrhage was in 2003. The patient had been on previous anticoagulant therapy in the past however he developed blood in his cerebral spinal fluid and this was discontinued several years ago. Note that the patient is on aspirin and Plavix, would recommend discontinuation of his heparin tomorrow morning 07/07/18. 2. Hyperlipidemia: Recommend obtaining a fasting lipid profile. 3. Hypertension: Patient's blood pressure appears to be fairly well- controlled. Continue antihypertensive therapy. 4. Thank you very much for the opportunity to participate in the cardiac care of your patient. Consultation time took place between 4 and 4:30 PM. Code Visit Inpatient E&M: 35432 In Hosp L2
[2018-07-06] MEDS: Docusate Sodium 100 MG Capsule PO (19:48)
[2018-07-06] MEDS: HYDROcodone Bitartrate/Apap 5/325 Tablet PO (21:48)
[2018-07-06] MEDS: Losartan Potassium 25 MG Tablet 12.5 MG PO (21:48)
[2018-07-06] MEDS: ISOSORBIDE MONONITRATE 10 MG TABLET 5 MG PO (21:50)
[2018-07-06 22:01] LABS: Bedside Glucose 133 mg/dL (70-110)
[2018-07-06 23:01] LABS: Partial Thromboplast Time 54.4 Seconds (24.1-36.2)
[2018-07-07] VITALS (16 sets, daily range): BP systolic 129–161; BP diastolic 62–84; PULSE 61–96; RESP 16–19; TEMP 36.6–37.4; O2SAT 92–98
[2018-07-07] MEDS: oxyCODONE 5 MG Tablet PO ×2 (02:05→07:53)
[2018-07-07] MEDS: Clopidogrel Bisulfate 75 MG Tablet PO (06:24)
[2018-07-07] MEDS: LITHIUM CARBONATE 150 MG CAPSULE PO ×3 (06:24→21:39)
--- NOTE | 2018-07-07 06:25 | NURSING ---
heparin gtt stopped at this time per orders since patient is scheduled to have a stress test this morning.
[2018-07-07 06:33] LABS: Absolute Lymphocyte Count 1.07 X10^3/ul (0.83-4.51); Absolute Neutrophil Count 5.6 X10^3/uL (2.0-7.7); Basophil# 0.02 X10^3/uL; Basophil% 0.3 % (0-1); Eosinophil# 0.08 X10^3/uL; Eosinophils% 1.1 % (0-5); Hematocrit 34.2 % (40-54); Hemoglobin 11.1 g/dl (13.0-16.5); Lymphocyte # 1.07 X10^3/ul (4.0); Lymphocyte % 14.6 % (19-41); Mean Corp Hgb Conc 32.5 g/gl (32-36); Mean Corpuscular Hgb 32.9 pg (27.0-32.0); Mean Corpuscular Volume 101.5 fL (80-94); Mean Platelet Vol. 10.2 fl (6.2-12.0); Monocyte# 0.57 X10^3/uL; Monocyte% 7.8 % (0-10); Neutrophil # 5.56 X10^3/uL (2.7-7.7); Neutrophil % 76.1 % (47-70); Platelet Count 130 K/mm3 (150-450); RBC Distribution Width SD 47.4 fl (35.1-43.9); Red Blood Count 3.37 M/mm3 (4.6-6.2); White Blood Count 7.3 K/mm3 (4.4-11.0)
[2018-07-07 06:34] LABS: POSITIVE COUNT NO; POSITIVE DIFFERENTIAL NO; POSITIVE MORPHOLOGY NO
[2018-07-07 06:40] LABS: Partial Thromboplast Time 65.5 Seconds (24.1-36.2)
[2018-07-07 06:45] LABS: Bedside Glucose 94 mg/dL (70-110)
[2018-07-07 06:46] LABS: Anion Gap 8 (5-15); BUN 15 mg/dL (7-18); BUN/Creat Ratio 20.1 RATIO (10-20); Calcium,Total 8.1 mg/dL (8.5-10.1); Chloride 108 mmol/L (98-107); Creatinine, Serum 0.75 mg/dL (0.70-1.30); EST Glomerular Filtration Rate 107 mL/min (>60); Est Glom Filt Rate - Afr Amer 129 mL/min (>60); Estimated Creatinine Clearance 60.83 ml/min; Glucose 93 mg/dL (74-106); Potassium 4.1 mmol/L (3.5-5.1); Sodium Level 142 mmol/L (136-145)
--- NOTE | 2018-07-07 07:55 | PCM.PROGNOTE ---
Patient Problems: Active and Suspected Problems Non-STEMI (non-ST elevated myocardial infarction) (Acute) Abnormal EKG (Acute) Subjective: Chief complaint: Follow-up after admission for non-STEMI and acute cystitis. Patient seen and examined. No acute events overnight. He is still complaining of muscle spasms, leg pains, back pain and those symptoms are chronic secondary to history of spinal cord injury and paraplegia. He denied chest pain or shortness of breath. He denies fever or chills. His vital signs are stable. - Physical Exam General: Alert, Oriented x3, Cooperative, No apparent distress HEENT: Atraumatic, PERRLA, EOMI, Normocephalic Oral: Moist Mucosa, No Gingival or Mucosal Lesions/ Ulcerations Neck: Supple, No JVD, Negative Carotid Bruits, Trachea Midline, Thyroid Normal Size and Texture Lungs: Clear to auscultation, No rhonchi, No wheeze, No rales, Diminished Cardiovascular: Regular rate, Regular Rhythm, Normal S1, Normal S2, PMI Normal Abdomen: Bowel Sounds Present, Soft, Non Tender, Non-Distended, No Hepato-splenomegaly Extremities: No clubbing, No cyanosis, No edema Skin: No rashes, No breakdown Lymphatic: No Cervical, Supraclavicular, or Inguinal Adenopathy Neurological: Cranial nerves II-XII grossly intact, - - Paraplegia. Psych/Mental Status: Normal Affect, Appropriate, Alert and oriented to time, place, person, mood and affect Vital Signs Temp Pulse Resp BP Pulse Ox 98.5 F 77 18 152/77 H 92 07/07/18 06:16 07/07/18 06:56 07/07/18 06:16 07/07/18 06:16 07/07/18 06:16 Oxygen Flow Rate (L/min) 2 Oxygen Delivery Method Room Air Weight: 174 lb 6.17 oz Body Mass Index (BMI) 25.0 Intake and Output for Last 24 Hours 07/05/18 07/06/18 07/07/18 23:59 23:59 23:59 Intake Total 1151.2 / 1151.2 5084 / 5084 603 / 603 Output Total 3125 / 3125 1999 / 1999 Balance 1151.2 / 1151.2 1958 / 1958 -1397 / -1397 Laboratory Tests Past 24 Hrs 0807/06/18 07/06/18 08:50 16:02 22:44 WBC RBC Hgb Hct MCV MCH MCHC RDW RDW Differential Plt Count MPV Immature Gran % (Auto) Neut % (Auto) Lymph % (Auto) [place] % (Auto) Eos % (Auto) Baso % (Auto) Absolute Neuts (auto) Absolute Lymphs (auto) Total Counted APTT 61.8 H 50.7 H 54.4 H Sodium Potassium Chloride Carbon Dioxide Anion Gap BUN Creatinine Estim Creat Clear Calc Est GFR (MDRD) Af Amer Est GFR (MDRD) Non-Af BUN/Creatinine Ratio Glucose Calcium 07/07/18 07/07/18 07/07/18 05:25 05:25 05:25 WBC 7.3 RBC 3.37 L Hgb 11.1 L Hct 34.2 L MCV 101.5 H MCH 32.9 H MCHC 32.5 RDW 13.0 RDW Differential 47.4 H Plt Count 130 L MPV 10.2 Immature Gran % (Auto) 0.100 Neut % (Auto) 76.1 H Lymph % (Auto) 14.6 L [place] % (Auto) 7.8 Eos % (Auto) 1.1 Baso % (Auto) 0.3 Absolute Neuts (auto) 5.6 Absolute Lymphs (auto) 1.07 Total Counted Not Reportable APTT 65.5 H Sodium 142 Potassium 4.1 Chloride 108 H Carbon Dioxide 26.0 Anion Gap 8 BUN 15 Creatinine 0.75 Estim Creat Clear Calc 60.83 Est GFR (MDRD) Af Amer 129 Est GFR (MDRD) Non-Af 107 BUN/Creatinine Ratio 20.1 H Glucose 93 Calcium 8.1 L POC Glucose 07/07/18 07/06/18 07/06/18 06:22 21:46 15:33 POC Glucose 94 133 H 120 H 07/06/18 11:26 POC Glucose 136 H Medical Necessity - Tobacco Use Smoking Status: Never smoker Assessment/Plan All Active Problems Non-STEMI (non-ST elevated myocardial infarction) (Acute) Abnormal EKG (Acute) This is an 82 years old male patient presented to the emergency room because of weakness, fever, body aches and pains, found to have acute cystitis as well as acute non-ST elevation CT and acute kidney injury. #[address] [place]: Patient remained chest pain-free. Troponin is trending down. Repeat EKG from today revealed normal sinus rhythm, minimal ST depression in V5 and V6, otherwise no acute ischemic changes. 2D echocardiogram revealed ejection fraction of 65%, mild aortic stenosis. He is on IV heparin drip, Plavix, Coreg, isosorbide mononitrate and losartan. Patient is going for stress test today. Plan to discontinue IV heparin drip. #2 acute complicated cystitis: Context of history of chronic urinary retention on self-catheterization at home with history of recurrent UTIs. He is on IV ciprofloxacin. He remained afebrile, white blood cell count is back to normal. Urine and blood cultures showed no growth, blood cultures pending. Will change ciprofloxacin to p.o. #3 acute kidney injury: Likely because of infection and dehydration. Admission creatinine is 1.33. He has been on IV fluids, creatinine is down to 0.75, improved. #3 hypertension: Blood pressure is stable, continue Coreg, isosorbide mononitrate, losartan with holding parameters. #4 history of transverse myelitis/subsequent paraplegia: Patient is wheelchair-bound. Supportive care, PT OT exertion and treatment. 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 #6 chronic pain syndrome: He is on gabapentin, MS Contin and Percocet as needed. IV Dilaudid, OxyIR and flexor added for pain as needed. Patient reported no significant improvement. I will start him on fentanyl patch, need close monitoring to avoid oversedation. 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 #8 peripheral vascular disease: Stable. #9 DVT prophylaxis: Compression stockings. Will DC IV heparin drip today. This note was generated with [employer] dictation software. It may contain incorrect words, spelling, and punctuation that were not noted in checking the note before signing. Code Visit Inpatient E&M: 43165 Subs Hosp L2
--- NOTE | 2018-07-07 07:59 | PN_ITS ---
Patient Problems: Active and Suspected Problems Non-STEMI (non-ST elevated myocardial infarction) (Acute) Abnormal EKG (Acute) Subjective: Chief complaint: Follow-up after admission for non-STEMI and acute cystitis. Patient seen and examined. No acute events overnight. He is still complaining of muscle spasms, leg pains, back pain and those symptoms are chronic secondary to history of spinal cord injury and paraplegia. He denied chest pain or shortness of breath. He denies fever or chills. His vital signs are stable. - Physical Exam General: Alert, Oriented x3, Cooperative, No apparent distress HEENT: Atraumatic, PERRLA, EOMI, Normocephalic Oral: Moist Mucosa, No Gingival or Mucosal Lesions/ Ulcerations Neck: Supple, No JVD, Negative Carotid Bruits, Trachea Midline, Thyroid Normal Size and Texture Lungs: Clear to auscultation, No rhonchi, No wheeze, No rales, Diminished Cardiovascular: Regular rate, Regular Rhythm, Normal S1, Normal S2, PMI Normal Abdomen: Bowel Sounds Present, Soft, Non Tender, Non-Distended, No Hepato- splenomegaly Extremities: No clubbing, No cyanosis, No edema Skin: No rashes, No breakdown Lymphatic: No Cervical, Supraclavicular, or Inguinal Adenopathy Neurological: Cranial nerves II-XII grossly intact, - - Paraplegia. Psych/Mental Status: Normal Affect, Appropriate, Alert and oriented to time, place, person, mood and affect Vital Signs Temp Pulse Resp BP Pulse Ox 98.5 F 77 18 152/77 H 92 07/07/18 06:16 07/07/18 06:56 07/07/18 06:16 07/07/18 06:16 07/07/18 06:16 Oxygen Flow Rate (L/min) 2 Oxygen Delivery Method Room Air Weight: 174 lb 6.17 oz Body Mass Index (BMI) 25.0 Intake and Output for Last 24 Hours 07/05/18 07/06/18 07/07/18 23:59 23:59 23:59 Intake Total 1151.2 / 1151.2 5084 / 5084 603 / 603 Output Total 3125 / 3125 1999 / 1999 Balance 1151.2 / 1151.2 1958 / 1958 -1397 / -1397 Laboratory Tests Past 24 Hrs 0807/06/18 07/06/18 08:50 16:02 22:44 WBC RBC Hgb Hct MCV MCH MCHC RDW RDW Differential Plt Count MPV Immature Gran % (Auto) Neut % (Auto) Lymph % (Auto) [place] % (Auto) Eos % (Auto) Baso % (Auto) Absolute Neuts (auto) Absolute Lymphs (auto) Total Counted APTT 61.8 H 50.7 H 54.4 H Sodium Potassium Chloride Carbon Dioxide Anion Gap BUN Creatinine Estim Creat Clear Calc Est GFR (MDRD) Af Amer Est GFR (MDRD) Non-Af BUN/Creatinine Ratio Glucose Calcium 07/07/18 07/07/18 07/07/18 05:25 05:25 05:25 WBC 7.3 RBC 3.37 L Hgb 11.1 L Hct 34.2 L MCV 101.5 H MCH 32.9 H MCHC 32.5 RDW 13.0 RDW Differential 47.4 H Plt Count 130 L MPV 10.2 Immature Gran % (Auto) 0.100 Neut % (Auto) 76.1 H Lymph % (Auto) 14.6 L [place] % (Auto) 7.8 Eos % (Auto) 1.1 Baso % (Auto) 0.3 Absolute Neuts (auto) 5.6 Absolute Lymphs (auto) 1.07 Total Counted Not Reportable APTT 65.5 H Sodium 142 Potassium 4.1 Chloride 108 H Carbon Dioxide 26.0 Anion Gap 8 BUN 15 Creatinine 0.75 Estim Creat Clear Calc 60.83 Est GFR (MDRD) Af Amer 129 Est GFR (MDRD) Non-Af 107 BUN/Creatinine Ratio 20.1 H Glucose 93 Calcium 8.1 L POC Glucose 07/07/18 07/06/18 07/06/18 06:22 21:46 15:33 POC Glucose 94 133 H 120 H 07/06/18 11:26 POC Glucose 136 H Medical Necessity - Tobacco Use Smoking Status: Never smoker Assessment/Plan All Active Problems Non-STEMI (non-ST elevated myocardial infarction) (Acute) Abnormal EKG (Acute) This is an 82 years old male patient presented to the emergency room because of weakness, fever, body aches and pains, found to have acute cystitis as well as acute non-ST elevation [place] and acute kidney injury. #[address] elevation [place]: Patient remained chest pain-free. Troponin is trending down. Repeat EKG from today revealed normal sinus rhythm, minimal ST depression in V5 and V6, otherwise no acute ischemic changes. 2D echocardiogram revealed ejection fraction of 65%, mild aortic stenosis. He is on IV heparin drip, Plavix, Coreg, isosorbide mononitrate and losartan. Patient is going for stress test today. Plan to discontinue IV heparin drip. #2 acute complicated cystitis: Context of history of chronic urinary retention on self-catheterization at home with history of recurrent UTIs. He is on IV ciprofloxacin. He remained afebrile, white blood cell count is back to normal. Urine and blood cultures showed no growth, blood cultures pending. Will change ciprofloxacin to p.o. #3 acute kidney injury: Likely because of infection and dehydration. Admission creatinine is 1.33. He has been on IV fluids, creatinine is down to 0.75, improved. #3 hypertension: Blood pressure is stable, continue Coreg, isosorbide mononitrate, losartan with holding parameters. #4 history of transverse myelitis/subsequent paraplegia: Patient is wheelchair- bound. Supportive care, PT OT exertion and treatment. #5 history of subarachnoid hemorrhage/subsequent DOPE MIXER shunt/syringomyelia: Stable , no acute issues. #6 chronic pain syndrome: He is on gabapentin, MS Contin and Percocet as needed. IV Dilaudid, OxyIR and flexor added for pain as needed. Patient reported no significant improvement. I will start him on fentanyl patch, need close monitoring to avoid oversedation. 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 #8 peripheral vascular disease: Stable. #9 DVT prophylaxis: Compression stockings. Will DC IV heparin drip today. This note was generated with [employer] dictation software. It may contain incorrect words, spelling, and punctuation that were not noted in checking the note before signing. Code Visit Inpatient E&M: 76605 Subs Hosp L2
--- NOTE | 2018-07-07 09:21 | PCM.PN.CARD ---
Subjectve: Complaints of generalized spasms. Per patient, this is a chronic problem for him Objective: Vital Signs Temp Pulse Resp BP Pulse Ox 98.5 F 77 18 152/77 H 92 07/07/18 06:16 07/07/18 06:56 07/07/18 06:16 07/07/18 06:16 07/07/18 07:15 Oxygen Flow Rate (L/min) 2 Oxygen Delivery Method Room Air Weight: 79.1 kg Body Mass Index (BMI) 25.0 Intake and Output for Last 24 Hours 07/05/18 07/06/18 07/07/18 23:59 23:59 23:59 Intake Total 1151.2 / 1151.2 5084 / 5084 603 / 603 Output Total 3125 / 3125 1999 Balance 1151.2 / 1151.2 195 / 1958 -1397 / -1397 General: Awake, Alert, Oriented x 3 HEENT: Atraumatic Neck: Supple Lungs: Clear to auscultation Cardiovascular: Regular Rhythm, Normal S1, Normal S2 Extremities: No edema Psych/Mental Status: Appropriate 07/06/18 08:50: APTT 61.8 H 07/06/18 16:02: APTT 50.7 H 07/06/18 22:44: APTT 54.4 H 07/07/18 05:25: APTT 65.5 H 07/07/18 05:25: WBC 7.3, RBC 3.37 L, Hgb 11.1 L, Hct 34.2 L, MCV 101.5 H, MCH 32.9 H, MCHC 32.5, RDW 13.0, RDW Differential 47.4 H, Plt Count 130 L, MPV 10.2, Immature Gran % (Auto) 0.100, Neut % (Auto) 76.1 H, Lymph % (Auto) 14.6 L, [place] % (Auto) 7.8, Eos % (Auto) 1.1, Baso % (Auto) 0.3, Absolute Neuts (auto) 5.6, Total Counted Not Reportable 07/07/18 05:25: Sodium 142, Potassium 4.1, Chloride 108 H, Carbon Dioxide 26.0, Anion Gap 8, BUN 15, Creatinine 0.75, Est GFR (MDRD) Af Amer 129, Est GFR (MDRD) Non-Af 107, BUN/Creatinine Ratio 20.1 H, Glucose 93, Calcium 8.1 L Rhythm: Normal sinus rhythm. Run of nonsustained ventricular tachycardia last night EKG: ECHO: Stress Test: Cardiac Cath: PCI: CT Surgery: Holter monitor: EPS: PPM: CXR: Chest CT Scan: Medical Necessity - Tobacco Use Smoking Status: Never smoker Assessment/Plan 1. Non-ST elevation myocardial infarction. Started on medical treatment. On clopidogrel. Discontinue heparin. Start on enteric-coated aspirin 81 mg daily. Titrate beta blockers upward as tolerated. Start on nitrates. For pharmacological stress test today. Unless the stress test is high risk, we will continue with medical management 2. Nonsustained ventricular tachycardia in the setting of #1 above. Increase beta-edmundo as tolerated 3. History of transverse myelitis 4. UTI
--- NOTE | 2018-07-07 09:26 | PN.CARD_ITS ---
Subjectve: Complaints of generalized spasms. Per patient, this is a chronic problem for him Objective: Vital Signs Temp Pulse Resp BP Pulse Ox 98.5 F 77 18 152/77 H 92 07/07/18 06:16 07/07/18 06:56 07/07/18 06:16 07/07/18 06:16 07/07/18 07:15 Oxygen Flow Rate (L/min) 2 Oxygen Delivery Method Room Air Weight: 79.1 kg Body Mass Index (BMI) 25.0 Intake and Output for Last 24 Hours 07/05/18 07/06/18 07/07/18 23:59 23:59 23:59 Intake Total 1151.2 / 1151.2 5084 / 5084 603 / 603 Output Total 3125 / 3125 1999 Balance 1151.2 / 1151.2 195 / 1958 -1397 / -1397 General: Awake, Alert, Oriented x 3 HEENT: Atraumatic Neck: Supple Lungs: Clear to auscultation Cardiovascular: Regular Rhythm, Normal S1, Normal S2 Extremities: No edema Psych/Mental Status: Appropriate 07/06/18 08:50: APTT 61.8 H 07/06/18 16:02: APTT 50.7 H 07/06/18 22:44: APTT 54.4 H 07/07/18 05:25: APTT 65.5 H 07/07/18 05:25: WBC 7.3, RBC 3.37 L, Hgb 11.1 L, Hct 34.2 L, MCV 101.5 H, MCH 32.9 H, MCHC 32.5, RDW 13.0, RDW Differential 47.4 H, Plt Count 130 L, MPV 10.2 , Immature Gran % (Auto) 0.100, Neut % (Auto) 76.1 H, Lymph % (Auto) 14.6 L, [place] % (Auto) 7.8, Eos % (Auto) 1.1, Baso % (Auto) 0.3, Absolute Neuts (auto) 5.6, Total Counted Not Reportable 07/07/18 05:25: Sodium 142, Potassium 4.1, Chloride 108 H, Carbon Dioxide 26.0, Anion Gap 8, BUN 15, Creatinine 0.75, Est GFR (MDRD) Af Amer 129, Est GFR (MDRD ) Non-Af 107, BUN/Creatinine Ratio 20.1 H, Glucose 93, Calcium 8.1 L Rhythm: Normal sinus rhythm. Run of nonsustained ventricular tachycardia last night EKG: ECHO: Stress Test: Cardiac Cath: PCI: CT Surgery: Holter monitor: EPS: PPM: CXR: Chest CT Scan: Medical Necessity - Tobacco Use Smoking Status: Never smoker Assessment/Plan 1. Non-ST elevation myocardial infarction. Started on medical treatment. On clopidogrel. Discontinue heparin. Start on enteric-coated aspirin 81 mg daily. Titrate beta blockers upward as tolerated. Start on nitrates. For pharmacological stress test today. Unless the stress test is high risk, we will continue with medical management 2. Nonsustained ventricular tachycardia in the setting of #1 above. Increase beta-edmundo as tolerated 3. History of transverse myelitis 4. UTI
[2018-07-07] MEDS: fentaNYL 25 MCG Patch TRANSDERM. (12:36)
[2018-07-07] MEDS: Smz/Tmp Ds Tablet 1 TABLET PO (12:59)
[2018-07-07] MEDS: Ciprofloxacin 500 MG Tablet PO ×2 (13:00→21:19)
[2018-07-07] MEDS: Gabapentin 600 MG Tablet PO (13:00)
[2018-07-07] MEDS: Hydrocortisone 10 MG Tablet 20 MG PO (13:00)
[2018-07-07] MEDS: Famotidine 20 MG Tablet PO (13:01)
[2018-07-07] MEDS: Escitalopram Oxalate 10 MG Tablet PO (13:01)
[2018-07-07] MEDS: Magnesium Oxide 400 MG Tablet PO ×2 (13:01→21:19)
[2018-07-07] MEDS: Aspirin E.C. 81 MG Tablet PO (13:01)
[2018-07-07] MEDS: Carvedilol 6.25 MG Tablet PO ×2 (13:01→21:19)
--- NOTE | 2018-07-07 13:01 | NURSING ---
patient returned from stress test from which patient was NPO. Medications administered at this time.
[2018-07-07 13:16] LABS: Bedside Glucose 103 mg/dL (70-110)
[2018-07-07] MEDS: 0.9% Normal Saline 1,000 ML 75 ML IV (15:36)
[2018-07-07] MEDS: Pyridoxine HCl 100 MG Tablet PO (18:14)
[2018-07-07] MEDS: Gabapentin 300 MG Capsule 900 MG PO (18:15)
[2018-07-07 18:51] LABS: Bedside Glucose 133 mg/dL (70-110)
[2018-07-07] MEDS: ISOSORBIDE MONONITRATE 10 MG TABLET 5 MG PO (21:19)
[2018-07-07] MEDS: Losartan Potassium 25 MG Tablet 12.5 MG PO (21:19)
[2018-07-07 22:36] LABS: Bedside Glucose 130 mg/dL (70-110)
[2018-07-08] VITALS (14 sets, daily range): BP systolic 123–168; BP diastolic 54–86; PULSE 54–88; RESP 16–19; TEMP 36.6–37.1; O2SAT 92–97
[2018-07-08] MEDS: LITHIUM CARBONATE 150 MG CAPSULE PO ×3 (05:05→22:53)
[2018-07-08] MEDS: 0.9% Normal Saline 1,000 ML 75 ML IV (05:06)
[2018-07-08 06:37] LABS: Partial Thromboplast Time 29.3 Seconds (24.1-36.2)
--- NOTE | 2018-07-08 07:55 | PCM.PROGNOTE ---
Patient Problems: Active and Suspected Problems Non-STEMI (non-ST elevated myocardial infarction) (Acute) Abnormal EKG (Acute) Subjective: Chief complaint: Follow-up after admission for non-STEMI and acute cystitis. Patient seen and examined. No acute events overnight. Today, he reports that his muscle spasm and pains start to get better after started on fentanyl patch and Flexeril. He denies any chest pain or shortness of breath. His vital signs are stable. - Physical Exam General: Alert, Oriented x3, Cooperative, No apparent distress HEENT: Atraumatic, PERRLA, EOMI, Normocephalic Oral: Moist Mucosa, No Gingival or Mucosal Lesions/ Ulcerations Neck: Supple, No JVD, Negative Carotid Bruits, Trachea Midline, Thyroid Normal Size and Texture Lungs: Clear to auscultation, No rhonchi, No wheeze, No rales, Diminished Cardiovascular: Regular rate, Regular Rhythm, Normal S1, Normal S2, PMI Normal Abdomen: Bowel Sounds Present, Soft, Non Tender, Non-Distended, No Hepato-splenomegaly Extremities: No clubbing, No cyanosis, No edema Skin: No rashes, No breakdown Lymphatic: No Cervical, Supraclavicular, or Inguinal Adenopathy Neurological: Cranial nerves II-XII grossly intact, - - Paraplegia. Psych/Mental Status: Normal Affect, Appropriate, Alert and oriented to time, place, person, mood and affect Vital Signs Temp Pulse Resp BP Pulse Ox 98.8 F 75 18 161/83 H 93 07/08/18 05:20 07/08/18 07:21 07/08/18 05:20 07/08/18 05:20 07/08/18 07:30 Oxygen Flow Rate (L/min) 2 Oxygen Delivery Method Nasal Cannula Weight: 174 lb 6.17 oz Body Mass Index (BMI) 25.0 Intake and Output for Last 24 Hours 07/06/18 07/07/18 07/08/18 23:59 23:59 23:59 Intake Total 5084 / 5084 1460 / 1460 1199 / 1199 Output Total 3125 / 3125 2525 / 2525 600 / 600 Balance 1958 / 1958 -1065 / -1065 599 / 599 Laboratory Tests Past 24 Hrs 07/08/18 06:05 APTT 29.3 POC Glucose 07/07/18 07/07/1807/07/18 21:12 18:03 12:26 POC Glucose 130 H 133 H 103 Medical Necessity - Tobacco Use Smoking Status: Never smoker Assessment/Plan All Active Problems Non-STEMI (non-ST elevated myocardial infarction) (Acute) Abnormal EKG (Acute) This is an 82 years old male patient presented to the emergency room because of weakness, fever, body aches and pains, found to have acute cystitis as well as acute non-ST elevation [place] and acute kidney injury. #1 acute [address] elevation [place]: Patient remained chest pain-free. Troponin is trending down. Nuclear stress test done yesterday, awaiting the results. Repeat EKG revealed normal sinus rhythm, minimal ST depression in V5 and V6, otherwise no acute ischemic changes. 2D echocardiogram revealed ejection fraction of 65%, mild aortic stenosis. He is on aspirin, Plavix, Coreg, isosorbide mononitrate and losartan. Cardiology on the case, awaiting their recommendation regarding the results of the stress test. #2 acute complicated cystitis: He is on day 4 of ciprofloxacin. He had history of chronic urinary retention on self-catheterization at home with history of recurrent UTIs. He is on IV ciprofloxacin. He remained afebrile, white blood cell count is back to normal. Urine and blood culture revealed gram-negative rods below infection level. Blood culture showed no growth in 48 hours. Plan to DC ciprofloxacin. #3 acute kidney injury: Likely because of infection and dehydration. Admission creatinine is 1.33. He has been on IV fluids, creatinine is down to 0.75, improved. #3 hypertension: Blood pressure is stable, continue Coreg, isosorbide mononitrate, losartan with holding parameters. #4 history of transverse myelitis/subsequent paraplegia: Patient is wheelchair-bound. Supportive care, PT OT exertion and treatment. #5 history of subarachnoid hemorrhage/subsequent CHILD'S NURSE shunt/syringomyelia: Stable, no acute issues. #6 chronic pain syndrome: He is on gabapentin, MS Contin, IV Dilaudid, OxyIR and Flexeril as needed. Started on fentanyl patch yesterday. Patient reported some improvement of her symptoms, having less muscle spasm and pain. Plan to change Flexeril to [id number], continue MS Contin and fentanyl, DC IV Dilaudid. 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 #8 peripheral vascular disease: Stable. #9 DVT prophylaxis: Compression stockings, subcu Lovenox. This note was generated with [email or web address] dictation software. It may contain incorrect words, spelling, and punctuation that were not noted in checking the note before signing. Code Visit Inpatient E&M: 42449 Subs Hosp L2
--- NOTE | 2018-07-08 08:01 | PN_ITS ---
Patient Problems: Active and Suspected Problems Non-STEMI (non-ST elevated myocardial infarction) (Acute) Abnormal EKG (Acute) Subjective: Chief complaint: Follow-up after admission for non-STEMI and acute cystitis. Patient seen and examined. No acute events overnight. Today, he reports that his muscle spasm and pains start to get better after started on fentanyl patch and Flexeril. He denies any chest pain or shortness of breath. His vital signs are stable. - Physical Exam General: Alert, Oriented x3, Cooperative, No apparent distress HEENT: Atraumatic, PERRLA, EOMI, Normocephalic Oral: Moist Mucosa, No Gingival or Mucosal Lesions/ Ulcerations Neck: Supple, No JVD, Negative Carotid Bruits, Trachea Midline, Thyroid Normal Size and Texture Lungs: Clear to auscultation, No rhonchi, No wheeze, No rales, Diminished Cardiovascular: Regular rate, Regular Rhythm, Normal S1, Normal S2, PMI Normal Abdomen: Bowel Sounds Present, Soft, Non Tender, Non-Distended, No Hepato- splenomegaly Extremities: No clubbing, No cyanosis, No edema Skin: No rashes, No breakdown Lymphatic: No Cervical, Supraclavicular, or Inguinal Adenopathy Neurological: Cranial nerves II-XII grossly intact, - - Paraplegia. Psych/Mental Status: Normal Affect, Appropriate, Alert and oriented to time, place, person, mood and affect Vital Signs Temp Pulse Resp BP Pulse Ox 98.8 F 75 18 161/83 H 93 07/08/18 05:20 07/08/18 07:21 07/08/18 05:20 07/08/18 05:20 07/08/18 07:30 Oxygen Flow Rate (L/min) 2 Oxygen Delivery Method Nasal Cannula Weight: 174 lb 6.17 oz Body Mass Index (BMI) 25.0 Intake and Output for Last 24 Hours 07/06/18 07/07/18 07/08/18 23:59 23:59 23:59 Intake Total 5084 / 5084 1460 / 1460 1199 / 1199 Output Total 3125 / 3125 2525 / 2525 600 / 600 Balance 1958 / 1958 -1065 / -1065 599 / 599 Laboratory Tests Past 24 Hrs 07/08/18 06:05 APTT 29.3 POC Glucose 07/07/18 07/07/1807/07/18 21:12 18:03 12:26 POC Glucose 130 H 133 H 103 Medical Necessity - Tobacco Use Smoking Status: Never smoker Assessment/Plan All Active Problems Non-STEMI (non-ST elevated myocardial infarction) (Acute) Abnormal EKG (Acute) This is an 82 years old male patient presented to the emergency room because of weakness, fever, body aches and pains, found to have acute cystitis as well as acute non-ST elevation UT and acute kidney injury. #[address] elevation UT: Patient remained chest pain-free. Troponin is trending down. Nuclear stress test done yesterday, awaiting the results. Repeat EKG revealed normal sinus rhythm, minimal ST depression in V5 and V6, otherwise no acute ischemic changes. 2D echocardiogram revealed ejection fraction of 65%, mild aortic stenosis. He is on aspirin, Plavix, Coreg, isosorbide mononitrate and losartan. Cardiology on the case, awaiting their recommendation regarding the results of the stress test. #2 acute complicated cystitis: He is on day 4 of ciprofloxacin. He had history of chronic urinary retention on self-catheterization at home with history of recurrent UTIs. He is on IV ciprofloxacin. He remained afebrile, white blood cell count is back to normal. Urine and blood culture revealed gram -negative rods below infection level. Blood culture showed no growth in 48 hours. Plan to DC ciprofloxacin. #3 acute kidney injury: Likely because of infection and dehydration. Admission creatinine is 1.33. He has been on IV fluids, creatinine is down to 0.75, improved. #3 hypertension: Blood pressure is stable, continue Coreg, isosorbide mononitrate, losartan with holding parameters. #4 history of transverse myelitis/subsequent paraplegia: Patient is wheelchair- bound. Supportive care, PT OT exertion and treatment. 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 #6 chronic pain syndrome: He is on gabapentin, MS Contin, IV Dilaudid, OxyIR and Flexeril as needed. Started on fentanyl patch yesterday. Patient reported some improvement of her symptoms, having less muscle spasm and pain. Plan to change Flexeril to [id number], continue MS Contin and fentanyl, DC IV Dilaudid. 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 #8 peripheral vascular disease: Stable. #9 DVT prophylaxis: Compression stockings, subcu Lovenox. This note was generated with [employer] dictation software. It may contain incorrect words, spelling, and punctuation that were not noted in checking the note before signing. Code Visit Inpatient E&M: 97907 Subs Hosp L2
[2018-07-08] MEDS: Smz/Tmp Ds Tablet 1 TABLET PO (08:12)
[2018-07-08] MEDS: Hydrocortisone 10 MG Tablet 20 MG PO ×2 (08:13→18:40)
[2018-07-08] MEDS: Aspirin E.C. 81 MG Tablet PO (08:13)
[2018-07-08] MEDS: Gabapentin 600 MG Tablet PO (08:14)
[2018-07-08] MEDS: Ciprofloxacin 500 MG Tablet PO ×2 (09:57→22:57)
[2018-07-08] MEDS: Carvedilol 6.25 MG Tablet PO ×2 (09:57→22:59)
[2018-07-08] MEDS: Clopidogrel Bisulfate 75 MG Tablet PO (09:58)
[2018-07-08] MEDS: Escitalopram Oxalate 10 MG Tablet PO (09:58)
[2018-07-08] MEDS: Famotidine 20 MG Tablet PO (09:58)
[2018-07-08] MEDS: Magnesium Oxide 400 MG Tablet PO ×2 (09:58→23:00)
--- NOTE | 2018-07-08 10:21 | RAD_ITS ---
STUDY: X-RAY CHEST REASON FOR EXAM: Male, 82 years old. Increased shortness of breath. TECHNIQUE: Portable upright chest COMPARISON: 07/05/2018. FINDINGS: Right ventricular peritoneal shunt catheter traverses the neck, chest and upper abdomen. Bilateral perihilar and lower lung infiltrates, suspected small bilateral effusions, no dense focal consolidation and no pneumothorax. Mild cardiomegaly. Normal mediastinal silhouette, beth and pleural margins. Mild thoracic scoliosis. 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 No acute upper abdominal process is evident. The ventricular peritoneal shunt catheter tip terminates under the right hemidiaphragm in the region of the liver. RAD/Chest 1 View (Portable) IMPRESSION: Bilateral perihilar infiltrates. Small effusions. Favoring pulmonary edema. Infectious pneumonia not entirely excluded. Electronically Signed: Bill Jon, at 11:37 EDT Tel , Service support ,
[2018-07-08 10:50] LABS: Bedside Glucose 86 mg/dL (70-110)
--- NOTE | 2018-07-08 11:37 | PCM.PN.CARD ---
Subjectve: Continues to complain of generalized spasms. No chest pains Objective: Vital Signs Temp Pulse Resp BP Pulse Ox 98.1 F 88 19 H 143/75 H 94 07/08/18 09:52 07/08/18 09:52 07/08/18 09:52 07/08/18 09:52 07/08/18 09:52 Oxygen Flow Rate (L/min) 2 Oxygen Delivery Method Nasal Cannula Weight: 79.1 kg Body Mass Index (BMI) 25.0 Intake and Output for Last 24 Hours 07/06/18 07/07/18 07/08/18 23:59 23:59 23:59 Intake Total 5084 / 5084 1460 / 1460 1199 / 1199 Output Total 3125 / 3125 2525 / 2525 600 / 600 Balance 1958 / 1958 -1065 / -1065 599 / 599 General: Awake, Alert, Oriented x 3, Ill Appearing Neck: Supple Lungs: Clear to auscultation Cardiovascular: Regular Rhythm, Normal S1, Normal S2 Extremities: No edema 07/08/18 06:05: APTT 29.3 Rhythm: EKG: ECHO: Stress Test: Cardiac Cath: PCI: CT Surgery: Holter monitor: EPS: PPM: CXR: Chest CT Scan: Medical Necessity - Tobacco Use Smoking Status: Never smoker Assessment/Plan 1. Non-ST elevation myocardial infarction. Started on medical treatment. On clopidogrel. Discontinue heparin. Start on enteric-coated aspirin 81 mg daily. Titrate beta blockers upward as tolerated. Started on nitrates. Await stress test results 2. No further ventricular tachycardia 3. History of transverse myelitis with generalized chronic pain syndrome. Manage as per internal medicine 4. UTI
[2018-07-08] MEDS: Furosemide 40 MG/4 ML Vial IV (11:50)
[2018-07-08] MEDS: 0.9% NaCl Peripheral Flush Adult/Peds IV (11:51)
[2018-07-08 12:01] LABS: Bedside Glucose 172 mg/dL (70-110)
[2018-07-08] MEDS: Insulin Lispro 100 UNIT/ML INSULN.PEN SC ×2 (14:32→18:48)
[2018-07-08 17:26] LABS: Bedside Glucose 158 mg/dL (70-110)
[2018-07-08] MEDS: Gabapentin 300 MG Capsule 900 MG PO ×2 (18:39→22:56)
[2018-07-08] MEDS: oxyCODONE 5 MG Tablet PO (18:39)
[2018-07-08] MEDS: Docusate Sodium 100 MG Capsule PO (18:39)
[2018-07-08] MEDS: Pyridoxine HCl 100 MG Tablet PO (18:40)
[2018-07-08] MEDS: ISOSORBIDE MONONITRATE 10 MG TABLET 5 MG PO (22:55)
[2018-07-08] MEDS: Losartan Potassium 25 MG Tablet 12.5 MG PO (22:57)
[2018-07-08] MEDS: HYDROcodone Bitartrate/Apap 5/325 Tablet PO (23:04)
[2018-07-09] VITALS (8 sets, daily range): BP systolic 130–180; BP diastolic 69–83; PULSE 51–64; RESP 16; TEMP 36.6–36.8; O2SAT 93–99
[2018-07-09 00:11] LABS: Bedside Glucose 139 mg/dL (70-110)
[2018-07-09] MEDS: LITHIUM CARBONATE 150 MG CAPSULE PO (05:34)
[2018-07-09] MEDS: cloNIDine HCl 0.1 MG Tablet PO (05:34)
[2018-07-09] MEDS: Enoxaparin 30 MG/0.3 ML Syringe SC (05:37)
[2018-07-09 07:11] LABS: Bedside Glucose 118 mg/dL (70-110)
--- NOTE | 2018-07-09 07:54 | PCM.PROGNOTE ---
Patient Problems: Active and Suspected Problems Non-STEMI (non-ST elevated myocardial infarction) (Acute) Abnormal EKG (Acute) Subjective: Chief complaint: Follow-up after admission for non-STEMI and acute cystitis. Patient seen and examined. No acute events overnight. This morning, he mentioned that he is feeling better, having less pain and spasms. Denied significant shortness of breath or chest pain. His blood pressure is elevated, other vital signs are stable. - Physical Exam General: Alert, Oriented x3, Cooperative, No apparent distress HEENT: Atraumatic, PERRLA, EOMI, Normocephalic Oral: Moist Mucosa, No Gingival or Mucosal Lesions/ Ulcerations Neck: Supple, No JVD, Negative Carotid Bruits, Trachea Midline, Thyroid Normal Size and Texture Lungs: Clear to auscultation, No rhonchi, No wheeze, No rales, Diminished Cardiovascular: Regular rate, Regular Rhythm, Normal S1, Normal S2, PMI Normal Abdomen: Bowel Sounds Present, Soft, Non Tender, Non-Distended, No Hepato-splenomegaly Extremities: No clubbing, No cyanosis, No edema Skin: No rashes, No breakdown Lymphatic: No Cervical, Supraclavicular, or Inguinal Adenopathy Neurological: Cranial nerves II-XII grossly intact, - - Paraplegia. Psych/Mental Status: Normal Affect, Appropriate, Alert and oriented to time, place, person, mood and affect Vital Signs Temp Pulse Resp BP Pulse Ox 98 F 64 16 180/83 H 95 07/09/18 04:34 07/09/18 04:34 07/09/18 04:34 07/09/18 04:34 07/09/18 06:54 Oxygen Flow Rate (L/min) 2 Oxygen Delivery Method Nasal Cannula Weight: 174 lb 6.17 oz Body Mass Index (BMI) 25.0 Intake and Output for Last 24 Hours 07/07/18 07/08/18 07/09/18 23:59 23:59 23:59 Intake Total 1460 / 1460 2679 / 2679 Output Total 2525 / 2525 2700 / 2700 450 / 450 Balance -1065 / -1065 -21 / -21 -450 / -450 POC Glucose 07/09/18 07/08/18 07/08/18 06:39 22:44 17:21 POC Glucose 118 H 139 H 158 H 07/08/18 07/08/18 11:56 07:05 POC Glucose 172 H 86 Medical Necessity - Tobacco Use Smoking Status: Never smoker Assessment/Plan All Active Problems Non-STEMI (non-ST elevated myocardial infarction) (Acute) Abnormal EKG (Acute) This is an 82 years old male patient presented to the emergency room because of weakness, fever, body aches and pains, found to have acute cystitis as well as acute non-ST elevation ME and acute kidney injury. #[address] acute [address] elevation ME: Patient remained chest pain-free. Troponin is trending down. Revealed findings consistent with small epicardial anterior infarct, ejection fraction of 54%. 2D echocardiogram revealed ejection fraction of 65%, mild aortic stenosis. He is on aspirin, Plavix, Coreg, isosorbide mononitrate and losartan. Cardiology on the case, awaiting their recommendation. If no interventions would be done by cardiology, patient can go to [facility] facility today. #2 acute complicated cystitis: He is on day 5 of ciprofloxacin. He had history of chronic urinary retention on self-catheterization at home with history of recurrent UTIs. He is on IV ciprofloxacin. He remained afebrile, white blood cell count is back to normal. Urine and blood culture revealed gram-negative rods below infection level. Blood culture showed no growth in 48 hours. Plan to DC ciprofloxacin today. #3 acute kidney injury: Likely because of infection and dehydration. Admission creatinine is 1.33. He has been on IV fluids, creatinine is down to 0.75, improved. #3 hypertension: Blood pressure fluctuating, continue Coreg, isosorbide mononitrate, losartan with holding parameters. #4 history of transverse myelitis/subsequent paraplegia: Patient is wheelchair-bound. Supportive care, PT OT exertion and treatment. #5 history of subarachnoid hemorrhage/subsequent APPOINTMENT SCHEDULER shunt/syringomyelia: Stable, no acute issues. #6 chronic pain syndrome: He is on gabapentin, MS Contin, IV Dilaudid, OxyIR and Flexeril as needed. Started on fentanyl patch yesterday. Patient reported improvement of his pain and spasm but his is concerned about being more sleepy and lethargic. I will decrease fentanyl patch to 12 mcg every 3 days. 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 #8 peripheral vascular disease: Stable. #9 DVT prophylaxis: Compression stockings, subcu Lovenox. This note was generated with [employer] software. It may contain incorrect words, spelling, and punctuation that were not noted in checking the note before signing.
[2018-07-09] MEDS: Aspirin E.C. 81 MG Tablet PO (08:33)
[2018-07-09] MEDS: Smz/Tmp Ds Tablet 1 TABLET PO (08:33)
[2018-07-09] MEDS: Gabapentin 600 MG Tablet PO (08:33)
[2018-07-09] MEDS: Famotidine 20 MG Tablet PO (08:33)
[2018-07-09] MEDS: Hydrocortisone 10 MG Tablet 20 MG PO (08:33)
--- NOTE | 2018-07-09 08:33 | STRESSREP ---
Stress Test Report Pharmacologic myocardial perfusion stress test. 82-year-old man with a history of chest pain and abnormal troponins. Stress protocol: Resting EKG demonstrates normal sinus rhythm with rate of [address]-T wave changes and noted resting blood pressure is 144/80 mmHg. 0.4 mg of regadenoson was infused per usual protocol followed by rapid intravenous saline flush injection continuous EKG monitoring was performed. The patient maintained sinus rhythm throughout the recording. There were nonspecific downsloping ST depression noted in leads II, III and aVF and V5 and V6 suggestive but not diagnostic of ischemia. The maximum heart rate was 190 bpm which was 77% of maximum predicted heart rate workload was 1 metabolic equivalent. The resting blood pressure is 144/80 mmHg. Final blood pressure is 124/78 mmHg. Myocardial perfusion protocol. Patient underwent myocardial perfusion protocol evaluation which will be dictated under separate cover. Conclusion: Pharmacologic myocardial perfusion stress test with no EKG changes diagnostic of ischemia. Nuclear images demonstrated separately.
--- NOTE | 2018-07-09 09:49 | PCM.PN.CARD ---
Subjectve: Feels better today. Generalized spasms better. No angina. No dyspnea Objective: Vital Signs Temp Pulse Resp BP Pulse Ox 98.2 F 51 L 16 130/69 H 93 07/09/18 09:00 07/09/18 09:00 07/09/18 09:00 07/09/18 09:00 07/09/18 09:00 Oxygen Flow Rate (L/min) 2 Oxygen Delivery Method Room Air Weight: 79.1 kg Body Mass Index (BMI) 25.0 Intake and Output for Last 24 Hours 07/07/18 07/08/18 07/09/18 23:59 23:59 23:59 Intake Total 1460 / 1460 2679 / 2679 Output Total 2525 / 2525 2700 / 2700 450 / 450 Balance -1065 / -1065 -21 / -21 -450 / -450 General: Awake, Alert, Oriented x 3, No Acute Distress Oral: Moist Mucosa Neck: Supple, No JVD Lungs: Diminished Adilson Bases Cardiovascular: Regular Rhythm, Normal S1 - 2/6 systolic murmur at apex and base, Normal S2 Abdomen: Bowel Sounds Present, Soft Extremities: No edema Rhythm: Normal sinus rhythm. Run of PACs this morning EKG: ECHO: Stress Test: Small anterior infarct. No ischemia. Normal LV systolic function Cardiac Cath: PCI: CT Surgery: Holter monitor: EPS: PPM: CXR: Chest CT Scan: Medical Necessity - Tobacco Use Smoking Status: Never smoker Assessment/Plan 1. Non-ST elevation myocardial infarction. Started on medical treatment. On clopidogrel. Asymptomatic. Continue medical treatment. Increase nitrates. No reversible ischemia on stress test. Small anterior infarct. Continue medical treatment for now. Discussed with patient. If he becomes symptomatic, then given cardiac catheterization with coronary angiography and possible revascularization. Follow-up with Dr. Calderon as outpatient in 1-2 weeks 2. Normal LV systolic function 3. History of transverse myelitis with generalized chronic pain syndrome. Manage as per internal medicine 4. UTI 5. Mild aortic stenosis on echocardiogram 6. Lipid management as per internal medicine. Target LDL cholesterol less than 70 mg/dL
--- NOTE | 2018-07-09 09:52 | PCM.TXEXTCAR ---
- Diet 07/07/18 14:22 Diet: Cardiac: Calorie-Controlled Is pt able to select menu?: Yes How many daily calories?: 1800 calorie - Wound(s) Bilat Great Toes Wound Type: Neuropathic/Diabetic Foot Ulcer coccyx Wound Type: Pressure Injury - Suggestions for Active Care Change Position every (hours): 3 Hours to sit in a chair: 2 Times a day to sit in chair: 3 - Therapies Weight Bearing: Weight bearing as tolerated Physical Therapy: Eval and Treat Occupational Therapy: Eval and Treat - Problem/Diagnosis (1) Chronic pain Status: Chronic Current Visit: No (2) Transverse myelitis Status: Chronic Comment: 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 Current Visit: No (3) Syringomyelia Status: Chronic Current Visit: No (4) HTN (hypertension) Status: Chronic Current Visit: No (5) PAD (peripheral artery disease) Status: Chronic Current Visit: No (6) Paraplegia Status: Chronic Comment: due to transverse myelitis Current Visit: No - Allergies/Procedures Done in Hospital Allergies/Adverse Reactions: Allergies Cephalosporins Allergy (Intermediate, Verified 07/05/18 10:04) Laryngospasms Penicillins Allergy (Intermediate, Verified 07/05/18 10:04) Rash IVP DYE Allergy (Uncoded 07/05/18 10:04) Rash - Type of Care/Length of Stay Estimated LOS: Convalescent Care Less Than 30 days Type of Care Needed: Skilled Rehab Potential: Fair Prognosis: Fair - Additional Orders/Day of Discharge H&P will serve as current which was dated: 07/05/18 Day of Discharge: 07/09/18 - Dietary and Speech Recommendations Dietitian Recommendations/Changes: Rec 1 pkt hermelindo bid for improved wound healing - please order from pharmacy - Follow Up Care Primary Care Physician: Eris Melendez MD [Primary Care Provider] - Please follow up with your Primary Care Physician in: 1-2 weeks. Please Follow Up With: Saroj Baker When: 1 week. Please Follow Up With: Jewel Calderon MD When: 1-2 weeks.
--- NOTE | 2018-07-09 10:02 | NURSING ---
old fentanyl patch removed from left shoulder. Wasted with Tiffany Mcgregor RN.
[2018-07-09] MEDS: Clopidogrel Bisulfate 75 MG Tablet PO (10:19)
[2018-07-09] MEDS: Magnesium Oxide 400 MG Tablet PO (10:19)
[2018-07-09] MEDS: Escitalopram Oxalate 10 MG Tablet PO (10:20)
[2018-07-09] MEDS: Carvedilol 6.25 MG Tablet PO (10:20)
[2018-07-09] MEDS: Ciprofloxacin 500 MG Tablet PO (10:20)
--- NOTE | 2018-07-09 10:46 | CASEMGMT ---
Patient is ready for d/c to [facility]. DEBBIE faxed orders to [facility]. Called [facility] [place] and arranged for patient to get picked up at 1p via cot. He usually utilizes a wheelchair, however at this time he is not even able to stand and pivot to the . Convalescent was completed on [facility]. DEBBIE called Chritsina at [facility] and left her a voice mail letting her know about slat pickler time. DEBBIE told patient above and his walked in so DEBBIE let her know as well. She will take his wc to [facility]. Plan: d/c to [facility] under skilled level of care on a convalescent stay. [facility] [place] via [place]. Nicolasa WILL MSW
[2018-07-09 12:31] LABS: Bedside Glucose 146 mg/dL (70-110)
--- NOTE | 2018-07-09 13:26 | PCM.DC.SUM ---
Discharge Date and Diagnosis Date of Admission: 07/05/18 Date of Discharge: 07/09/18 - Primary Discharge Diagnosis #1 acute non-ST elevation NV: #2 acute complicated cystitis. #3 Acute kidney injury. #4 intractable bilateral leg muscle spasm and pain. 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 Ejection fraction is at lower limits of normal at 54%. Electronically Signed: Faustino Mauro MD at 11:51 EDT , Service support , Chest X-Ray 07/08/18 10:21 IMPRESSION: Bilateral perihilar infiltrates. Small effusions. Favoring pulmonary edema. Infectious pneumonia not entirely excluded. Electronically Signed: Bill Jon at 11:37 EDT Tel , Service support , Dr. Calderon, cardiology. Operations: None Procedures: 2-D Echocardiogram, EKG, Stress test Summary of Care Provided: The patient is a 82 year old M admitted because of weakness, fever, body aches and pains and he was found to have acute non-ST elevation NV, acute kidney injury and acute complicated cystitis. EKG revealed no evidence of acute ischemic changes. His troponin was elevated and maximum was 2.53 and then trended down. Chest x-ray on admission revealed no acute findings, bilateral basal atelectasis. Patient was treated with IV heparin drip, aspirin, Plavix, Coreg, nitrates and losartan. 2D echocardiogram revealed ejection fraction of 65%, stage II diastolic dysfunction and mild aortic stenosis. Cardiology consulted and recommended nuclear stress test that revealed findings consistent with relatively small apical anterior infarct with ejection fraction 54%. After discussion with cardiology and because of patient's history of subarachnoid hemorrhage, decision was made to treat the patient medically. IV heparin drip discontinued and patient kept on aspirin, statins, Plavix, beta blockers and losartan as well as nitrates. He was found to have acute kidney injury attributed to dehydration. His admission creatinine was 1.33 and with IV fluid therapy, creatinine came down to 0.75. Because patient received IV fluids, he complains of increasing shortness of breath for which chest x-ray repeated and revealed probable pulmonary vascular congestion. Patient received 1 dose of IV Lasix and he improved. On admission, urinalysis revealed cloudy urine, positive for leukocyte esterase, there was 25-50 WBCs and 2+ bacteria. He was treated with IV ciprofloxacin. He remained afebrile, white blood cell count returned back to normal and urine culture revealed gram-negative rods but below infection level. Blood culture showed no growth in 48 hours. She completed 5 days of ciprofloxacin. This patient has history of transverse myelitis, paraplegia and chronic pain syndrome. During this admission, he complained of significant bilateral leg pain and muscle spasm. He was continued on his home medication including MS Contin and oxycodone without improvement. I started him on fentanyl patch as well as Flexeril and patient did improve. [facility] in a stable medical condition, discharged on fentanyl patch 12 mcg to 3 days, Flexeril 10 mg 3 times daily, continued on MS Contin and hydrocodone as before, discharged on aspirin, Plavix, statins, beta blockers and losartan as well as isosorbide mononitrate, continued on Bactrim for long-term suppressive therapy for Nocardia infection of the right upper forearm, plan to follow-up with his PCP in 1-2 weeks, follow-up with his pain management doctor, Dr. Baker, in 1 week, follow-up with cardiology in 1-2 weeks. Home Medications: Medications to take at Discharge Multivitamins,Ther W-Minerals [Multivitamin With Minerals] 1 tablet PO DAILY@1700 #30 tablet 09/18/14 Pyridoxine HCl [Vitamin B-6] 100 mg PO DAILY@1700 #30 tablet 10/23/14 Losartan Potassium [Cozaar] 12.5 mg PO DAILY@2200 01/12/16 Furosemide [Lasix] 40 mg PO DAILY@2200 11/10/16 Magnesium Oxide [Magnesium] 500 mg PO BID 11/10/16 Riboflavin [Vitamin B2] 300 mg PO DAILY@1700 11/10/16 Oxymetazoline 0.05% [Afrin (BKC)] 2 spray NASAL Q12H PRN PRN #1 spray.btl 11/14/16 Hydrocortisone 20 mg PO BIDCM 01/28/18 Metformin HCl [Glucophage] 500 mg PO BIDCM 01/28/18 Ascorbic Acid [Vitamin C] 1,000 mg PO DAILY 07/05/18 Docusate Sodium [Colace] 100 mg PO BID PRN 07/05/18 Escitalopram Oxalate [Lexapro] 10 mg PO DAILY 07/05/18 Gabapentin [Neurontin] 600 mg PO DAILY 07/05/18 Gabapentin [Neurontin] 900 mg PO DINNER 07/05/18 Gabapentin [Neurontin] 900 mg PO QHS 07/05/18 Garlic 500 mg PO DAILY 07/05/18 [place] Carbonate 150 mg PO TID 07/05/18 Ranitidine [Zantac] 150 mg PO BIDCM 07/05/18 Sulfamethoxazole/Trimethoprim [Bactrim Ds Tablet] 1 each PO DAILY 07/05/18 Atorvastatin Calcium [Lipitor] 40 mg PO QHS #90 tab 07/09/18 Carvedilol [Coreg (Beta Krissy)] 6.25 mg PO BID #90 tab 07/09/18 Clopidogrel Bisulfate [Plavix] 75 mg PO DAILY #90 tab 07/09/18 Cyclobenzaprine [Flexeril] 10 mg PO TID #90 tab 07/09/18 Hydrocodone/Acetaminophen [Hydrocodon-Acetaminophn 10-325] 1 ea PO QHS 3 Days #3 tab 07/09/18 Isosorbide Mononitrate 10 mg PO QHS #90 tab 07/09/18 Morphine Sulfate [Morphine Sulfate ER] 30 mg PO BID 2 Days #4 tablet.er 07/09/18 fentaNYL patch [Duragesic Patch] 12 mcg TRANSDERM. Q72H 9 Days #3 patch 07/09/18 Following Prescrptions Were Given to Patient: Atorvastatin Calcium [Lipitor] 40 mg PO QHS #90 tab Clopidogrel Bisulfate [Plavix] 75 mg PO DAILY #90 tab fentaNYL patch [Duragesic Patch] 12 mcg TRANSDERM. Q72H 9 Days #3 patch Hydrocodone/Acetaminophen [Hydrocodon-Acetaminophn 10-325] 1 ea PO QHS 3 Days #3 tab Isosorbide Mononitrate 10 mg PO QHS #90 tab Carvedilol [Coreg (Beta Krissy)] 6.25 mg PO BID #90 tab Morphine Sulfate [Morphine Sulfate ER] 30 mg PO BID 2 Days #4 tablet.er Cyclobenzaprine [Flexeril] 10 mg PO TID #90 tab Primary Care Physician: Eris Melendez MD [Primary Care Provider] - Please follow up with your Primary Care Physician in: 1-2 weeks. Please Follow Up With: Saroj Baker When: 1 week. Please Follow Up With: Jewel Calderon MD When: 1-2 weeks. Disposition: [facility] facility Minutes spent on discharge:: 35 Patient Condition:: Stable Medical Necessity - Tobacco Use Smoking Status: Never smoker Meaningful Use Info Meaningful Use Diagnoses (Choose all that apply): AMI - AMI Aspirin given w/in 24hrs of arrival?: Yes ASA at discharge?: Yes Statins at discharge?: Yes Edi/ARB at discharge?: Yes Beta Krissy at discharge?: Yes Done w/ Acute NV measure.: Yes Code Visit Inpatient E&M: 27454 Disch Hosp
== END 2018-07-09 13:07 | disposition skilled nursing facility (03) | DRG 698 ==
LOC: ED 10:52 → PCU 12:56
PROVIDERS: Hospitalist; Internal Medicine Cardiovascular Disease; Admitting Provider Hospitalist; Emergency Provider Emergency Medicine; Family Provider Family Medicine; PCP Family Medicine; Visit Provider Hospitalist
DX: T83.518A Infection and inflammatory reaction due to other urinary catheter, initial encounter (principal); I21.4 Non-ST elevation (NSTEMI) myocardial infarction; N30.00 Acute cystitis without hematuria; N17.9 Acute kidney failure, unspecified; G82.20 Paraplegia, unspecified; G95.0 Syringomyelia and syringobulbia; I47.2 Ventricular tachycardia; M62.838 Other muscle spasm; I10 Essential (primary) hypertension; I73.9 Peripheral vascular disease, unspecified; E86.0 Dehydration; Z79.2 Long term (current) use of antibiotics; Z79.52 Long term (current) use of systemic steroids; G09 Sequelae of inflammatory diseases of central nervous system; Z99.3 Dependence on wheelchair; Z98.2 Presence of cerebrospinal fluid drainage device; Z87.440 Personal history of urinary (tract) infections; R33.9 Retention of urine, unspecified; G89.4 Chronic pain syndrome; Z86.19 Personal history of other infectious and parasitic diseases; I35.0 Nonrheumatic aortic (valve) stenosis
CPT/HCPCS: 36415; 71045; 78452; 80048; 80061; 81001; 82962; 83605; 84484; 85025; 85610; 85730; 87040; 87086; 87088; 93005; 93017; 93306; 97110; 97140; 97162; 97166; 97530; 97802; 99285; A9500; J7030; P9612; Q9957; A4216; J0744; J1940; J2785

== ENCOUNTER 2018-08-10 20:03 | Inpatient (IN) | payer MEDICARE, OTHER, SELFPAY ==
[2018-08-10 20:07] VITALS: BP 142/130; PULSE 70; RESP 16; TEMP 38.3; O2SAT 97; BMI 26.6
[2018-08-10 20:18] VITALS: BP 123/82; PULSE 72; RESP 16; O2SAT 96
--- NOTE | 2018-08-10 20:32 | EKG12_ITS ---
Test Reason : ALT LOC Blood Pressure : / mmHG Vent. Rate : 072 BPM Atrial Rate : 072 BPM P-R Int : 206 ms QRS Dur : 088 ms QT Int : 392 ms P-R-T Axes : 066 -01 040 degrees QTc Int : 429 ms Normal sinus rhythm Septal infarct , age undetermined Abnormal ECG Confirmed by KAVITA PIPER, MAU ([id number]), city editor DRE KIRBY ([id number]) on 08/13/2018 3:24:56 PM Referred By: CAROLYN Confirmed By:MAU WALLS MD
--- NOTE | 2018-08-10 20:39 | ED.VISSUMM ---
- ER Visit Summary Date of Service: 08/10/18 Chief Complaint: Fever and mental status change History of Present Illness: The patient is a 82 M stents of past medical history of prior subarachnoid hemorrhage, anemia, frequent UTIs and transverse myelitis where he does not ambulate. Patient currently resides at [facility]. He is currently being treated for UTI. He has developed a fever and decreased mental status. He has had this issue before with infections. He was recently hospitalized for a UTI in June. He is accompanied by his who is able to give most history. Currently the patient is on an antibiotic for urinary tract infection. Physical Examination: Older male lying in bed. Vital signs are stable he does have a fever of 101. HEENT exam driving his murmurs. Atraumatic. Neck nontender. No meningismus. Lungs clear to auscultation. Heart regular rhythm no murmur. Chest wall nontender. Abdomen soft nontender. Nondistended. He is moving his upper extremities. His lower extremities are extremely weak. He has had a prior history of transverse myelitis. He has padding on both his feet. Neurologically is awake. He knows day and month. He thought the year was 2001. He thought the president was Lamin. Test Results: CBC shows a white count of 9. Hemoglobin 10.4 which is baseline anemia. Chronic thrombocytopenia also. No bands. Electrolytes show BUN 28 creatinine of 1 consistent with mild dehydration. Liver enzymes slightly elevated. PT/INR normal. UA is normal but he is currently on antibiotics. Lactic acid is 1.5. EKG sinus rhythm rate is 72 no signs of ischemia. Chest x-ray she is bibasilar atelectasis cannot rule out infiltrates as read by the radiologist and reviewed by me. Emergency Department Course and Treatment: Older male with fever and mental status change. Currently being treated for UTI. Started on sepsis protocol. IV fluids. Treatment Plan: Patient was treated with a liter of IV fluids. P.o. Tylenol. Currently I do not have a specific source of infection for his fever. On repeat exam he is doing well at 2340. A long discussion both he and his . He has allergies both penicillin and cephalosporins. I will start him on IV Levaquin to cover both urinary tract infection and/or possible pneumonia. Blood and urine cultures are pending. I have the hospitalist on page for admission to PCU. Disposition: Admission Impression: Acute mental status change Fever of uncertain etiology. Mild dehydration Prior subarachnoid hemorrhage History of transverse myelitis and unable to ambulate This note was generated with [employer] dictation software. It may contain incorrect words, spelling, and punctuation that were not noted in review of the chart prior to signing ED Disposition - Plan for ED Patient: Chief Complaint: Mental Status Change Referrals: Eris Melendez MD [Primary Care Provider] -
--- NOTE | 2018-08-10 20:42 | ED.DCSUM_ITS ---
- ER Visit Summary Date of Service: 08/10/18 Chief Complaint: Fever and mental status change History of Present Illness: The patient is a 82 M stents of past medical history of prior subarachnoid hemorrhage, anemia, frequent UTIs and transverse myelitis where he does not ambulate. Patient currently resides at [facility]. He is currently being treated for UTI. He has developed a fever and decreased mental status. He has had this issue before with infections. He was recently hospitalized for a UTI in June. He is accompanied by his who is able to give most history. Currently the patient is on an antibiotic for urinary tract infection. Physical Examination: Older male lying in bed. Vital signs are stable he does have a fever of 101. HEENT exam driving his murmurs. Atraumatic. Neck nontender. No meningismus. Lungs clear to auscultation. Heart regular rhythm no murmur. Chest wall nontender. Abdomen soft nontender. Nondistended. He is moving his upper extremities. His lower extremities are extremely weak. He has had a prior history of transverse myelitis. He has padding on both his feet. Neurologically is awake. He knows day and month. He thought the year was 2001. He thought the president was Lamin. Test Results: CBC shows a white count of 9. Hemoglobin 10.4 which is baseline anemia. Chronic thrombocytopenia also. No bands. Electrolytes show BUN 28 creatinine of 1 consistent with mild dehydration. Liver enzymes slightly elevated. PT/INR normal. UA is normal but he is currently on antibiotics. Lactic acid is 1.5. EKG sinus rhythm rate is 72 no signs of ischemia. Chest x- ray she is bibasilar atelectasis cannot rule out infiltrates as read by the radiologist and reviewed by me. Emergency Department Course and Treatment: Older male with fever and mental status change. Currently being treated for UTI. Started on sepsis protocol. IV fluids. Treatment Plan: Patient was treated with a liter of IV fluids. P.o. Tylenol. Currently I do not have a specific source of infection for his fever. On repeat exam he is doing well at 2340. A long discussion both he and his . He has allergies both penicillin and cephalosporins. I will start him on IV Levaquin to cover both urinary tract infection and/or possible pneumonia. Blood and urine cultures are pending. I have the hospitalist on page for admission to PCU. Disposition: Admission Impression: Acute mental status change Fever of uncertain etiology. Mild dehydration Prior subarachnoid hemorrhage History of transverse myelitis and unable to ambulate This note was generated with [employer] dictation software. It may contain incorrect words, spelling, and punctuation that were not noted in review of the chart prior to signing ED Disposition - Plan for ED Patient: Chief Complaint: Mental Status Change Referrals: Eris Melendez MD [Primary Care Provider] -
[2018-08-10 20:53] VITALS: BP 172/128; PULSE 73; RESP 16; TEMP 38.9; O2SAT 98
--- NOTE | 2018-08-10 20:55 | RAD_ITS ---
STUDY: X-RAY CHEST REASON FOR EXAM: Male, 82 years old. Fever recent UTI TECHNIQUE: AP portable COMPARISON: July 08, 2018. FINDINGS: Diminished inspiratory effort is seen. There is focal atelectasis or infiltrate at the right base and to a lesser extent in left lower lobe.. There is no demonstrated pleural abnormality. Heart is enlarged. Normal mediastinum and beth. Normal visualized pulmonary arteries. Mildly calcified aortic arch and descending thoracic aorta. Dorsal spine demonstrates scoliosis and degenerative changes. Normal visualized ribs, clavicles, and shoulders. There is a tube projecting over the right hemithorax There is no demonstrated abnormality of the visualized soft tissue structures of the upper abdomen. There is improved aeration at both lung bases since previous study RAD/Chest 1 View (Portable) IMPRESSION: Mild bibasilar atelectasis or infiltrates with significant improvement since previous exam Electronically Signed: Vicente Sebastian MD at 21:52 EDT , Service support ,
[2018-08-10] MEDS: 0.9% Normal Saline 1,000 ML 999 ML IV (21:02)
[2018-08-10] MEDS: Acetaminophen 500 MG Tablet 1000 MG PO (21:02)
[2018-08-10 21:12] LABS: Absolute Lymphocyte Count 0.79 X10^3/ul (0.83-4.51); Absolute Neutrophil Count 7.6 X10^3/uL (2.0-7.7); Basophil# 0.02 X10^3/uL; Basophil% 0.2 % (0-1); Eosinophil# 0.26 X10^3/uL; Eosinophils% 2.8 % (0-5); Hematocrit 33.6 % (40-54); Hemoglobin 10.4 g/dl (13.0-16.5); Lymphocyte # 0.79 X10^3/ul (4.0); Lymphocyte % 8.6 % (19-41); Mean Corpuscular Hgb 31.4 pg (27.0-32.0); Mean Corpuscular Volume 101.5 fL (80-94); Mean Platelet Vol. 9.9 fl (6.2-12.0); Monocyte# 0.44 X10^3/uL; Monocyte% 4.8 % (0-10); Neutrophil # 7.64 X10^3/uL (2.7-7.7); Neutrophil % 83.5 % (47-70); POSITIVE COUNT NO; POSITIVE DIFFERENTIAL NO; POSITIVE MORPHOLOGY NO; Platelet Count 136 K/mm3 (150-450); RBC Distribution Width CV 13.9 % (11.6-14.6); RBC Distribution Width SD 52.2 fl (35.1-43.9); Red Blood Count 3.31 M/mm3 (4.6-6.2); White Blood Count 9.2 K/mm3 (4.4-11.0)
[2018-08-10 21:16] LABS: International Normalized Ratio 1.1; Prothrombin Time (Protime)PT. 14.1 SECONDS (11.7-14.9)
[2018-08-10 21:17] LABS: Partial Thromboplast Time 32.8 Seconds (24.1-36.2)
[2018-08-10 21:30] LABS: ALB/GLOB Ratio 0.7 RATIO (0.9-2.4); AST(SGOT) 65 U/L (15-37); Alanine Aminotransfer ALT/SGPT 51 U/L (16-61); Albumin, Serum 2.9 g/dL (3.2-5.0); Alkaline Phosphatase 169 U/L (45-117); Anion Gap 5 (5-15); BUN 28 mg/dL (7-18); BUN/Creat Ratio 27.2 RATIO (10-20); Calcium,Total 8.7 mg/dL (8.5-10.1); Chloride 103 mmol/L (98-107); Creatinine, Serum 1.03 mg/dL (0.70-1.30); EST Glomerular Filtration Rate 74 mL/min (>60); Est Glom Filt Rate - Afr Amer 89 mL/min (>60); Estimated Creatinine Clearance 59.06 ml/min; Globulin 3.9 g/dL (2.2-4.2); Glucose 121 mg/dL (74-106); Potassium 4.5 mmol/L (3.5-5.1); Protein, Total 6.8 g/dL (6.4-8.2); Sodium Level 139 mmol/L (136-145)
[2018-08-10 21:31] LABS: Bacteria 0 SEEN /hpf (None Seen); Mucous, Urine 0 SEEN /hpf (<or=2+); Red Blood Cells-Urine 0 SEEN /hpf (0-5)
[2018-08-10 21:36] LABS: Color, Urine Yellow (Yellow); Glucose, Dipstick Normal (Normal); Ketone-Dipstick 5 mg/dl (Negative); Leukocyte Esterase-Dipstick 500 /ul (Negative); Nitrite-Dipstick Negative (Negative); Occult Blood-Urine Negative /ul (Negative); Protein-Dipstick 15 mg/dl (Negative); Specific Gravity, Urine 1.015 (1.002-1.030); Urine Bilirubin Dipstick Negative (Negative); Urine Clarity Sl. Cloudy (Clear); Urine Urobilinogen 1 mg/dl (Normal)
[2018-08-10 21:44] LABS: Squamous Epithelial Cells - UA 0-5 SEEN /hpf (0-5); White Blood Cells 0-5 SEEN /hpf (0-5)
[2018-08-10 21:47] LABS: Lactic Acid 1.5 mmol/L (0.4-2.0)
[2018-08-10 22:07] VITALS: BP 111/61; PULSE 74; RESP 18; O2SAT 96
[2018-08-10 23:56] VITALS: BP 102/58; PULSE 67; RESP 21; O2SAT 96
[2018-08-11] VITALS (13 sets, daily range): BP systolic 97–149; BP diastolic 56–76; PULSE 62–76; RESP 15–20; TEMP 36.4–37; O2SAT 91–98; BMI 25.5
[2018-08-11] MEDS: levoFLOXacin IV 750 MG/150 ML BAG 100 MG IV (00:03)
--- NOTE | 2018-08-11 00:32 | PCM.HP.STD ---
Problem List (1) Acute encephalopathy Status: Acute (2) Transverse myelitis Status: Chronic Comment: treated in 2005 as a result of E. Coli meningitis after placement of the initial AIRCRAFT STRESS ANALYST shunt. (3) Paraplegia Status: Chronic Comment: due to transverse myelitis History of Present Illness Date of Admission: 08/11/18 Chief Complaint: Altered mental status. The patient is a 82 year old assisted patient with a significant history of CVA, IA, subarachnoid hemorrhage in 2003, transverse myelitis, paraplegia, frequent UTI with multiple organisms, neurogenic bladder who self catheterizes himself who presents with altered mental status. Patient was on Macrobid recently for UTI. At emergency department patient had a temperature of 102.1. His chest x-ray showed mild bibasilar atelectasis or infiltrates with significant improvement from previous exams. He had somewhat abnormal urinalysis. 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 Medical History: Medical History (Last Reviewed 08/11/18 @ 03:04 by Dany Kwon MD) Non-STEMI (non-ST elevated myocardial infarction) (Acute) I21.4 HTN (hypertension) (Chronic) I10 PAD (peripheral artery disease) (Chronic) I73.9 Paraplegia (Chronic) G82.20 due to transverse myelitis Allergies Cephalosporins Allergy (Intermediate, Verified 08/10/18 20:29) Laryngospasms Penicillins Allergy (Intermediate, Verified 08/10/18 20:29) Rash IVP DYE Allergy (Uncoded 07/05/18 10:04) Rash Home Medications: Ambulatory Orders Medication Instructions Recorded Multivitamins,Ther W-Minerals 1 tab PO DAILY@1700 #30 tab 09/18/14 [Multivitamin With Minerals] Pyridoxine HCl [Vitamin B-6] 100 mg PO DAILY@1700 #30 tab 10/23/14 Losartan Potassium [Cozaar] 12.5 mg PO DAILY@2200 01/12/16 Furosemide [Lasix] 40 mg PO DAILY@2200 11/10/16 Magnesium Oxide [Magnesium] 500 mg PO BID 11/10/16 Riboflavin [Vitamin B2] 300 mg PO DAILY@1700 11/10/16 Metformin HCl [Glucophage] 500 mg PO BIDCM 01/28/18 Ascorbic Acid [Vitamin C] 1,000 mg PO DAILY 07/05/18 Docusate Sodium [Colace] 100 mg PO BID PRN 07/05/18 Escitalopram Oxalate [Lexapro] 10 mg PO DAILY 07/05/18 Gabapentin [Neurontin] 600 mg PO 4X/DAY 07/05/18 [place] Carbonate 150 mg PO TID 07/05/18 Ranitidine [Zantac] 150 mg PO BIDCM 07/05/18 Sulfamethoxazole/Trimethoprim 1 ea PO DAILY 07/05/18 [Bactrim Ds Tablet] Atorvastatin Calcium [Lipitor] 40 mg PO QHS #90 tab 07/09/18 Carvedilol [Coreg (Beta Krissy)] 6.25 mg PO BID #90 tab 07/09/18 Clopidogrel Bisulfate [Plavix] 75 mg PO DAILY #90 tab 07/09/18 Cyclobenzaprine [Flexeril] 10 mg PO TID #90 tab 07/09/18 Isosorbide Mononitrate 10 mg PO QHS #90 tab 07/09/18 Morphine Sulfate [Morphine Sulfate 30 mg PO BID 2 Days #4 tablet.er 07/09/18 ER] baclofen 10 mg tablet 10 mg PO BID tab 07/27/18 Garlic 500 mg PO DAILY 08/10/18 Hydrocodone/Acetaminophen 10 - 325 mg PO DAILY 08/10/18 [Hydrocodone-Acetamin 10-325 mg] Nitrofurantoin Macrocrystals 50 mg PO 4X/DAY 08/10/18 [Macrobid] Surgical History: - - Laminectomy 2006, 2007. History of AIRCRAFT STRESS ANALYST shunt for subarachnoid hemorrhage which secondarily got infected with E. coli. 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 Psychiatric History: No pertinent psych hx, - - he is very angry now and his attributes this to the steroids....she states it makes him mean. 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 Lives: [facility] Smoking Status: Never smoker - *Family History Maternal History Items: - - , depression Paternal History Items: - - Offspring History Items: - - 2 children, 4 grand children, 1 great grandchild, all in good health Review of Systems Unable to obtain accurate/complete ROS d/t: Patient is unable to provide history secondary to altered mental status. VTE Information - Inpt Only VTE Present on Admission: No VTE Mechan Device Prophylaxis: None VTE Pharm Prophylaxis ordered?: Yes Patient Problems: Active and Suspected Problems (Last Reviewed 08/11/18 @ 03:04 by Dany Kwon MD) Acute encephalopathy (Acute) - Physical Exam General: Alert, Confused HEENT: Atraumatic, PERRLA, EOMI, Normocephalic Neck: Supple, No JVD, Negative Carotid Bruits Lungs: Clear to auscultation, Normal air movement Cardiovascular: Regular rate, No murmurs Abdomen: Bowel Sounds Present, Soft, Non Tender Extremities: No clubbing Skin: No rashes, No breakdown Musculoskeletal: No Tenderness to Palpation of Joints or Extremities Neurological: Cranial nerves II-XII grossly intact Psych/Mental Status: Normal Affect Vital Signs Temp Pulse Resp BP Pulse Ox 102.1 F H 67 21 H 102/58 L 96 08/10/18 20:53 08/10/18 23:56 08/10/18 23:56 08/10/18 23:56 08/10/18 23:56 Assessment/Plan All Active Problems (Last Reviewed 08/11/18 @ 03:04 by Dany Kwon MD) Acute encephalopathy (Acute) Non-STEMI (non-ST elevated myocardial infarction) (Acute) Abnormal EKG (Acute) The patient is a 82 year old assisted patient with a significant history of CVA, IA, subarachnoid hemorrhage in 2003, transverse myelitis, paraplegia, frequent UTI with multiple organisms, neurogenic bladder who self catheterizes himself who presents with altered mental status and found to have a somewhat abnormal urinalysis and a fever of 102.1. Acute encephalopathy likely due to cystitis. His white count is unremarkable Urine culture and blood cultures are pending. Patient received Levaquin at emergency department; continued. Home Macrobid and Bactrim DS held. Chest x-ray showed mild bibasilar atelectasis or infiltrates with significant improvement from previous exams. Unlikely the patient has pneumonia. In any case patient will be started on Levaquin which can cover many lung infections. History of IA Plavix, Coreg, losartan and Lipitor continued Hypertension Blood pressure was within goal at the time of admission Coreg and losartan continued. Chronic pain Schedule morphine continued [place] as needed. Diabetes Blood glucose was within goal at admission Metformin continued. Depression Lexapro continued DVT prophylaxis Subcutaneous heparin. Code Visit Inpatient E&M: 14564 Init Hosp L3
--- NOTE | 2018-08-11 04:31 | EKG12_ITS ---
Test Reason : Blood Pressure : / mmHG Vent. Rate : 063 BPM Atrial Rate : 063 BPM P-R Int : 194 ms QRS Dur : 096 ms QT Int : 412 ms P-R-T Axes : 062 026 045 degrees QTc Int : 421 ms Normal sinus rhythm Anteroseptal infarct , age undetermined Abnormal ECG When compared with ECG of 11-AUG-2018 04:45, MANUAL COMPARISON REQUIRED, DATA IS UNCONFIRMED Confirmed by KAVITA PIPER, MAU ([id number]), editor index DRE KIRBY ([id number]) on 08/15/2018 3:28:13 PM Referred By: SHANDA Confirmed By:MAU WALLS MD
[2018-08-11 06:59] LABS: Anion Gap 6 (5-15); BUN 23 mg/dL (7-18); Calcium,Total 8.5 mg/dL (8.5-10.1); Chloride 104 mmol/L (98-107); Creatinine, Serum 0.74 mg/dL (0.70-1.30); EST Glomerular Filtration Rate 108 mL/min (>60); Est Glom Filt Rate - Afr Amer 130 mL/min (>60); Estimated Creatinine Clearance 60.83 ml/min; Glucose 95 mg/dL (74-106); Potassium 4.6 mmol/L (3.5-5.1); Sodium Level 142 mmol/L (136-145)
[2018-08-11 07:11] LABS: Bedside Glucose 103 mg/dL (70-110)
[2018-08-11] MEDS: 0.9% NaCl Peripheral Flush Adult/Peds IV ×2 (08:59→18:52)
[2018-08-11] MEDS: Escitalopram Oxalate 10 MG Tablet PO (11:01)
[2018-08-11] MEDS: Carvedilol 6.25 MG Tablet PO ×2 (11:01→22:40)
[2018-08-11] MEDS: Magnesium Oxide 400 MG Tablet PO ×2 (11:02→22:20)
[2018-08-11] MEDS: Clopidogrel Bisulfate 75 MG Tablet PO (11:03)
[2018-08-11 11:35] LABS: Bedside Glucose 114 mg/dL (70-110)
--- NOTE | 2018-08-11 11:50 | PCM.RX.CS ---
Consult Pharmacy has been consulted to manage selected antiobiotic: Vancomycin Type of Consult: New start Suspected Infection: Other Labs: Sodium 142 mmol/L (136-145) 08/11/18 05:15 Potassium 4.6 mmol/L (3.5-5.1) 08/11/18 05:15 Chloride 104 mmol/L (98-107) 08/11/18 05:15 Carbon Dioxide 32.0 mmol/L (21.0-32.0) 08/11/18 05:15 Anion Gap 6 (5-15) 08/11/18 05:15 BUN 23 mg/dL (7-18) H 08/11/18 05:15 Creatinine 0.74 mg/dL (0.70-1.30) 08/11/18 05:15 Est GFR (MDRD) Af Amer 130 mL/min (>60) 08/11/18 05:15 Est GFR (MDRD) Non-Af 108 mL/min (>60) 08/11/18 05:15 BUN/Creatinine Ratio 31.0 RATIO (10-20) H 08/11/18 05:15 Glucose 95 mg/dL (74-106) 08/11/18 05:15 Weight used for dosin.7 kg Estimated Creatinine Clearance: 61 ml/min Goal Trough: 10-15 mcg/mL Pharmacy Plan for Drug Dosing: Start with 1250mg IV x1, then continue with 750mg IV q12h. Pharmacy Service will continue to monitor and adjust dosing as required. Follow-Up Labs: Trough Vancomycin Labs to be done on [date and time ordered]: 08/12/18 at 22:30 before the 4th total dose at 23:00
[2018-08-11 12:24] LABS: M R Staph aureus DNA By PCR Negative (Negative); Probe Check PASS; Specimen Processing Control PASS; Staph aureus DNA By PCR NEGATIVE (Negative)
--- NOTE | 2018-08-11 12:55 | NURSING ---
Valerie provides RN with med list. Current med list and medication list in computer do not match. RN called [facility] and spoke with Jackeline nurse at facility. Obtained updated medication list from her. RN informed DEUCE Waddell that home medication list was updated in computer.
--- NOTE | 2018-08-11 13:47 | RAD_ITS ---
STUDY: X-RAY - RIGHT FOOT CLINICAL: Male, 82 years old. Heel ulcers. TECHNIQUE: view(s) of the foot. COMPARISON: None. FINDINGS: There is no fracture or dislocation. Joint spaces are well-maintained. No destructive bone lesions. There is marked dorsal soft tissue swelling. There is mild plantar swelling at the level of the metatarsals. There is extensive atherosclerotic vascular calcification consistent with diabetes and/or renal failure. RAD/Foot 2 Views IMPRESSION: Soft tissue swelling. No osseous abnormality. Electronically Signed: Jackelin Ramachandran MD at 20:05 EDT Tel , Service support ,
[2018-08-11] MEDS: CLARIFY ORDER NOTE (13:52)
--- NOTE | 2018-08-11 14:22 | PCM.PROGNOTE ---
<Nadira Goldberg - Last Filed: 08/11/18 14:58> Patient Problems: Active and Suspected Problems (Last Reviewed 08/11/18 @ 03:04 by Dany Kwon MD) Acute encephalopathy (Acute) Subjective: Patient seen and examined. States he feels unwell. Denies specific complaints. Denies fever, chills. Denies chest pain, shortness of breath. Denies nausea, vomiting. Denies GI/ complaints. - Physical Exam General: Alert, Cooperative, No apparent distress HEENT: Atraumatic, PERRLA, EOMI, Normocephalic Neck: Supple, No JVD, Negative Carotid Bruits Lungs: Clear to auscultation, Diminished Cardiovascular: Regular rate, Regular Rhythm, Normal S1, Normal S2, No murmurs Abdomen: Bowel Sounds Present, Soft, Non Tender, Non-Distended Extremities: No clubbing, No cyanosis, No edema Skin: - - Stage II coccyx decubital ulcer, bilateral heel pressure wounds. Both present on admission. Musculoskeletal: No Tenderness to Palpation of Joints or Extremities Neurological: Cranial nerves II-XII grossly intact, Neuro grossly intact Psych/Mental Status: Normal Affect, Appropriate Vital Signs Temp Pulse Resp BP Pulse Ox 98.5 F 76 20 H 149/73 H 91 08/11/18 06:20 08/11/18 11:34 08/11/18 06:20 08/11/18 06:20 08/11/18 07:47 Oxygen Flow Rate (L/min) 2 Oxygen Delivery Method Room Air Weight: 177 lb 14.609 oz Body Mass Index (BMI) 25.5 Intake and Output for Last 24 Hours 08/09/18 08/10/18 08/11/18 23:59 23:59 23:59 Intake Total 1110 / 1110 Output Total 700 / 700 Balance 410 / 410 Laboratory Tests Past 24 Hrs 08/11/18 08/11/18 08/11/18 05:15 09:05 09:05 Sodium 142 Potassium 4.6 Chloride 104 Carbon Dioxide 32.0 Anion Gap 6 BUN 23 H Creatinine 0.74 Estim Creat Clear Calc 60.83 Est GFR (MDRD) Af Amer 130 Est GFR (MDRD) Non-Af 108 BUN/Creatinine Ratio 31.0 H Glucose 95 Calcium 8.5 S.aureus Protein A PCR NEGATIVE MRSA (PCR) Negative Negative 09/15/18 13:42 Sodium Potassium Chloride Carbon Dioxide Anion Gap BUN Creatinine Estim Creat Clear Calc Est GFR (MDRD) Af Amer Est GFR (MDRD) Non-Af BUN/Creatinine Ratio Glucose Calcium S.aureus Protein A PCR Pending MRSA (PCR) Pending POC Glucose 08/11/18 08/11/18 11:24 06:56 POC Glucose 114 H 103 Medical Necessity - Tobacco Use Smoking Status: Never smoker Assessment/Plan All Active Problems (Last Reviewed 08/11/18 @ 03:04 by Dany Kwon MD) Acute encephalopathy (Acute) Non-STEMI (non-ST elevated myocardial infarction) (Acute) Abnormal EKG (Acute) 1. Acute encephalopathy suspected secondary to acute cystitis-patient with history of recurrent cystitis secondary to chronic urinary retention with [id number]-mu meropenem and vancomycin given complicated history of urine cultures, positive for enterococcus and Pseudomonas with allergy to penicillins and cephalosporins. Urine and blood cultures pending. Wheeler in place. 2. History of NSTEMI-continue Plavix, statin, Coreg, losartan. Denies chest pain. Follows as outpatient with [facility]. 3. Stage II decubitus coccyx ulcer/bilateral heel unstageable pressure injuries-present on admission. Podiatry consulted. Keep bilateral lower extremities offloaded bed. Wound RN consult. Frequent position changes. MRI of bilateral lower extremities ordered to assess bilateral heel pressure ulcers. Wound culture right heel pending. 4. Type 2 diabetes mellitus-home metformin regimen continued. 5. 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 PT/OT. 6. 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 8. PVD-continue statin, Plavix. 9. Hypertension-stable, continue home carvedilol, losartan regimen. 10. Depression-continue home Lexapro regimen. DVT prophylaxis-Lovenox subcu. This patient was seen by EYAD Stevens under the supervision of Dr. Ty. <Rafiq Ty - Last Filed: 08/11/18 15:18> Subjective: Patient has history of intracerebral hemorrhage in the past status post [employer]SH[employer] shunt and then removed. 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 Patient is bedridden and has sacral decubitus on both heel ulcer, right worse than left. Patient also has peripheral arterial disease and has seen Dr. Lagos in the past. Currently admitted for UTI and decubitus ulcer - Physical Exam General: Alert, Oriented x3, Cooperative HEENT: Atraumatic, PERRLA, EOMI, Normocephalic Neck: Supple, No JVD, Negative Carotid Bruits Lungs: Clear to auscultation, No rhonchi, No wheeze, Diminished Cardiovascular: Regular rate, No murmurs Abdomen: Bowel Sounds Present, Soft, Non Tender Extremities: No edema, Capillary Refill Less than 3 Seconds Skin: - Musculoskeletal: No Tenderness to Palpation of Joints or Extremities Neurological: Cranial nerves II-XII grossly intact, - - Paraplegic. Neurogenic bladder. Psych/Mental Status: Normal Affect, Appropriate Vital Signs Temp Pulse Resp BP Pulse Ox 97.5 F L 64 16 115/76 97 08/11/18 12:00 08/11/18 12:00 08/11/18 12:00 08/11/18 12:00 08/11/18 12:00 Oxygen Flow Rate (L/min) 2 Oxygen Delivery Method Nasal Cannula Weight: 177 lb 14.609 oz Body Mass Index (BMI) 25.5 Intake and Output for Last 24 Hours 08/09/18 08/10/18 08/11/18 23:59 23:59 23:59 Intake Total 1110 / 1110 Output Total 700 / 700 Balance 410 / 410 Microbiology Past 72 Hours 08/11/18 13:43 Gram Stain - Final Wound - Heel Right Laboratory Tests Past 24 Hrs 08/11/18 08/11/18 08/11/18 05:15 09:05 09:05 Sodium 142 Potassium 4.6 Chloride 104 Carbon Dioxide 32.0 Anion Gap 6 BUN 23 H Creatinine 0.74 Estim Creat Clear Calc 60.83 Est GFR (MDRD) Af Amer 130 Est GFR (MDRD) Non-Af 108 BUN/Creatinine Ratio 31.0 H Glucose 95 Calcium 8.5 S.aureus Protein A PCR NEGATIVE MRSA (PCR) Negative Negative 08/11/18 13:42 Sodium Potassium Chloride Carbon Dioxide Anion Gap BUN Creatinine Estim Creat Clear Calc Est GFR (MDRD) Af Amer Est GFR (MDRD) Non-Af BUN/Creatinine Ratio Glucose Calcium S.aureus Protein A PCR Cancelled MRSA (PCR) Cancelled POC Glucose 08/11/18 08/11/18 11:24 06:56 POC Glucose 114 H 103 Assessment/Plan This patient was seen in conjunction with FBI SPECIAL AGENTNadira. I have independently interviewed and examined the patient and reviewed pertinent history, examination findings, laboratory and plan of management. I have reviewed the note and agree with the documented findings with the few additional points. In brief, patient is admitted for acute encephalopathy, most probably multiple etiologies including infectious in etiology from UTI and decubitus ulcer, metabolic encephalopathy. Patient has history of recurrent UTI in the past and has grown enterococcus faecalis, vancomycin sensitive, Citrobacter, Pseudomonas in previous urine culture. In view of history of penicillin (rash) and cephalosporins allergy (had difficulty in breathing), antibiotic selection became challenging. Started on IV vancomycin and meropenem follow cultures. [employer] Crew Chief, Dr. Quintana has been consulted. Blood cultures ?2 pending. he ordered arterial Doppler, wound culture and MRI of lower extremities. Discussed with him. I have discussed my assessment with [employer] SPECIAL AGENTNadira and orders have been reviewed. Code Visit Inpatient E&M: 21989 Subs Hosp L3
--- NOTE | 2018-08-11 14:28 | PN_ITS ---
<Nadira Goldberg - Last Filed: 08/11/18 14:58> Patient Problems: Active and Suspected Problems (Last Reviewed 08/11/18 @ 03:04 by Dany Kwon MD) Acute encephalopathy (Acute) Subjective: Patient seen and examined. States he feels unwell. Denies specific complaints. Denies fever, chills. Denies chest pain, shortness of breath. Denies nausea, vomiting. Denies GI/ complaints. - Physical Exam General: Alert, Cooperative, No apparent distress HEENT: Atraumatic, PERRLA, EOMI, Normocephalic Neck: Supple, No JVD, Negative Carotid Bruits Lungs: Clear to auscultation, Diminished Cardiovascular: Regular rate, Regular Rhythm, Normal S1, Normal S2, No murmurs Abdomen: Bowel Sounds Present, Soft, Non Tender, Non-Distended Extremities: No clubbing, No cyanosis, No edema Skin: - - Stage II coccyx decubital ulcer, bilateral heel pressure wounds. Both present on admission. Musculoskeletal: No Tenderness to Palpation of Joints or Extremities Neurological: Cranial nerves II-XII grossly intact, Neuro grossly intact Psych/Mental Status: Normal Affect, Appropriate Vital Signs Temp Pulse Resp BP Pulse Ox 98.5 F 76 20 H 149/73 H 91 08/11/18 06:20 08/11/18 11:34 08/11/18 06:20 08/11/18 06:20 08/11/18 07:47 Oxygen Flow Rate (L/min) 2 Oxygen Delivery Method Room Air Weight: 177 lb 14.609 oz Body Mass Index (BMI) 25.5 Intake and Output for Last 24 Hours 08/09/18 08/10/18 08/11/18 23:59 23:59 23:59 Intake Total 1110 / 1110 Output Total 700 / 700 Balance 410 / 410 Laboratory Tests Past 24 Hrs 08/11/18 08/11/18 08/11/18 05:15 09:05 09:05 Sodium 142 Potassium 4.6 Chloride 104 Carbon Dioxide 32.0 Anion Gap 6 BUN 23 H Creatinine 0.74 Estim Creat Clear Calc 60.83 Est GFR (MDRD) Af Amer 130 Est GFR (MDRD) Non-Af 108 BUN/Creatinine Ratio 31.0 H Glucose 95 Calcium 8.5 S.aureus Protein A PCR NEGATIVE MRSA (PCR) Negative Negative 09/15/18 13:42 Sodium Potassium Chloride Carbon Dioxide Anion Gap BUN Creatinine Estim Creat Clear Calc Est GFR (MDRD) Af Amer Est GFR (MDRD) Non-Af BUN/Creatinine Ratio Glucose Calcium S.aureus Protein A PCR Pending MRSA (PCR) Pending POC Glucose 08/11/18 08/11/18 11:24 06:56 POC Glucose 114 H 103 Medical Necessity - Tobacco Use Smoking Status: Never smoker Assessment/Plan All Active Problems (Last Reviewed 08/11/18 @ 03:04 by Dany Kwon MD) Acute encephalopathy (Acute) Non-STEMI (non-ST elevated myocardial infarction) (Acute) Abnormal EKG (Acute) 1. Acute encephalopathy suspected secondary to acute cystitis-patient with history of recurrent cystitis secondary to chronic urinary retention with self- catheterization-on meropenem and vancomycin given complicated history of urine cultures, positive for enterococcus and Pseudomonas with allergy to penicillins and cephalosporins. Urine and blood cultures pending. Wheeler in place. 2. History of NSTEMI-continue Plavix, statin, Coreg, losartan. Denies chest pain. Follows as outpatient with [facility]. 3. Stage II decubitus coccyx ulcer/bilateral heel unstageable pressure injuries- present on admission. Podiatry consulted. Keep bilateral lower extremities offloaded bed. Wound RN consult. Frequent position changes. MRI of bilateral lower extremities ordered to assess bilateral heel pressure ulcers. Wound culture right heel pending. 4. Type 2 diabetes mellitus-home metformin regimen continued. 5. 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 PT/OT. 6. History of subarachnoid hemorrhage status post [employer]EARCH CHEF shunt/syringomyelia- stable. 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 8. PVD-continue statin, Plavix. 9. Hypertension-stable, continue home carvedilol, losartan regimen. 10. Depression-continue home Lexapro regimen. DVT prophylaxis-Lovenox subcu. This patient was seen by EYAD Stevens under the supervision of Dr. Ty. <Rafiq Ty - Last Filed: 08/11/18 15:18> Subjective: Patient has history of intracerebral hemorrhage in the past status post RESEARCH CHEF shunt and then removed. 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 Patient is bedridden and has sacral decubitus on both heel ulcer, right worse than left. Patient also has peripheral arterial disease and has seen Dr. Lagos in the past. Currently admitted for UTI and decubitus ulcer - Physical Exam General: Alert, Oriented x3, Cooperative HEENT: Atraumatic, PERRLA, EOMI, Normocephalic Neck: Supple, No JVD, Negative Carotid Bruits Lungs: Clear to auscultation, No rhonchi, No wheeze, Diminished Cardiovascular: Regular rate, No murmurs Abdomen: Bowel Sounds Present, Soft, Non Tender Extremities: No edema, Capillary Refill Less than 3 Seconds Skin: - Musculoskeletal: No Tenderness to Palpation of Joints or Extremities Neurological: Cranial nerves II-XII grossly intact, - - Paraplegic. Neurogenic bladder. Psych/Mental Status: Normal Affect, Appropriate Vital Signs Temp Pulse Resp BP Pulse Ox 97.5 F L 64 16 115/76 97 08/11/18 12:00 08/11/18 12:00 08/11/18 12:00 08/11/18 12:00 08/11/18 12:00 Oxygen Flow Rate (L/min) 2 Oxygen Delivery Method Nasal Cannula Weight: 177 lb 14.609 oz Body Mass Index (BMI) 25.5 Intake and Output for Last 24 Hours 08/09/18 08/10/18 08/11/18 23:59 23:59 23:59 Intake Total 1110 / 1110 Output Total 700 / 700 Balance 410 / 410 Microbiology Past 72 Hours 08/11/18 13:43 Gram Stain - Final Wound - Heel Right Laboratory Tests Past 24 Hrs 08/11/18 08/11/18 08/11/18 05:15 09:05 09:05 Sodium 142 Potassium 4.6 Chloride 104 Carbon Dioxide 32.0 Anion Gap 6 BUN 23 H Creatinine 0.74 Estim Creat Clear Calc 60.83 Est GFR (MDRD) Af Amer 130 Est GFR (MDRD) Non-Af 108 BUN/Creatinine Ratio 31.0 H Glucose 95 Calcium 8.5 S.aureus Protein A PCR NEGATIVE MRSA (PCR) Negative Negative 08/11/18 13:42 Sodium Potassium Chloride Carbon Dioxide Anion Gap BUN Creatinine Estim Creat Clear Calc Est GFR (MDRD) Af Amer Est GFR (MDRD) Non-Af BUN/Creatinine Ratio Glucose Calcium S.aureus Protein A PCR Cancelled MRSA (PCR) Cancelled POC Glucose 08/11/18 08/11/18 11:24 06:56 POC Glucose 114 H 103 Assessment/Plan This patient was seen in conjunction with ASSEM[employer] MACHINE OPERATORNadira. I have independently interviewed and examined the patient and reviewed pertinent history, examination findings, laboratory and plan of management. I have reviewed the note and agree with the documented findings with the few additional points. In brief, patient is admitted for acute encephalopathy, most probably multiple etiologies including infectious in etiology from UTI and decubitus ulcer, metabolic encephalopathy. Patient has history of recurrent UTI in the past and has grown enterococcus faecalis, vancomycin sensitive, Citrobacter, Pseudomonas in previous urine culture. In view of history of penicillin (rash) and cephalosporins allergy (had difficulty in breathing), antibiotic selection became challenging. Started on IV vancomycin and meropenem follow cultures. Transit Planning Director, Dr. Quintana has been consulted. Blood cultures ?2 pending. he ordered arterial Doppler, wound culture and MRI of lower extremities. Discussed with him. I have discussed my assessment with ASSEMBLY MACHINE OPERATORNadira and orders have been reviewed. Code Visit Inpatient E&M: 49427 Subs Hosp L3
--- NOTE | 2018-08-11 14:40 | EKG12_ITS ---
Test Reason : ST ELEVATION Blood Pressure : / mmHG Vent. Rate : 069 BPM Atrial Rate : 069 BPM P-R Int : 200 ms QRS Dur : 094 ms QT Int : 410 ms P-R-T Axes : 066 042 056 degrees QTc Int : 439 ms Normal sinus rhythm Anteroseptal infarct , age undetermined Abnormal ECG When compared with ECG of 10-AUG-2018 20:55, MANUAL COMPARISON REQUIRED, DATA IS UNCONFIRMED Confirmed by KAVITA PIPER, MAU ([id number]), communications editor DRE KIRBY ([id number]) on 08/15/2018 3:29:02 PM Referred By: DR ALFARO Confirmed By:MAU WALLS MD
--- NOTE | 2018-08-11 14:53 | RAD_ITS ---
STUDY: X-RAY - LEFT FOOT CLINICAL: Male, 82 years old. Heel ulcers. TECHNIQUE: 2 view(s) of the foot. COMPARISON: None. FINDINGS: There is no fracture or dislocation. Joint spaces are well-maintained. No destructive bone changes are present. Extensive atherosclerotic vascular calcification is noted, consistent with diabetes and/or renal failure. There is marked dorsal soft tissue swelling. RAD/Foot 2 Views IMPRESSION: Soft tissue swelling. No destructive bone changes are seen. Electronically Signed: Jackelin Ramachandran MD at 20:04 EDT Tel , Service support ,
--- NOTE | 2018-08-11 14:57 | CASEMGMT ---
SOCIAL WORK: Met with patient and in his room. Introduced self and SW role at [facility]. Confirmed with that plan is for patient to return to [facility] when medically ready. She reports that he has been there for skilled care since discharge from [facility] on 07/09/18. Advised that social work will contact [facility] on Monday to discuss anticipated return when ready. No further issues at this time. ED Russell
--- NOTE | 2018-08-11 16:22 | PCM.CONS.GEN ---
Reason for Consult Date of Consultation: 08/11/18 Reason for Consultation: Pressurel Ulcerations Bilateral Heels History of Present Illness: The patient is a 82 year old with history of paraplegia secondary to 2003 subarachnoid hemorrhage complicated by meningitis was seen today for bilateral heel ulcerations. Patient's was at bedside and history was obtained by both patient and his , along with chart review. They relates the pressure ulcers to the heels started early June 2018 during his last admission, states heels were not offloaded and the pressure ulcers started. Patient was then transferred to [facility], and has been receiving wound care - [facility] with daily dressing changes. Patient has offloaded foam boots which he has been using. They relate nurse at [facility] recommended second opinion, but they had difficult time getting into the wound center, so saw Dr. Byrne ~1 week ago. They relate he puts weight on his heels when standing during physical therapy. He relates to history of peripheral vascular disease, states he has been seen by Dr. Jose Lagos in the past, many years ago. States there was attempts to places stents in lower extremity arteries but unsuccessful at that time, and states he has not seen vascular surgery since. Patient current admission is for recurrent UTI, relates this is the third UTI recently. He has no pain to the heels at this time. He is resting in bed with dressings in place and foam heel offloading boots on. WBC WNL, patient afebrile at this time. 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 Medical History: Medical History (Last Reviewed 08/11/18 @ 03:04 by Dany Kwon MD) Non-STEMI (non-ST elevated myocardial infarction) (Acute) I21.4 HTN (hypertension) (Chronic) I10 PAD (peripheral artery disease) (Chronic) I73.9 Paraplegia (Chronic) G82.20 due to transverse myelitis Allergies Cephalosporins Allergy (Intermediate, Verified 08/10/18 20:29) Laryngospasms Penicillins Allergy (Intermediate, Verified 08/10/18 20:29) Rash IVP DYE Allergy (Uncoded 07/05/18 10:04) Rash Home Medications: Ambulatory Orders Medication Instructions Recorded Multivitamins,Ther W-Minerals 1 tab PO DAILY@1700 #30 tab 09/18/14 [Multivitamin With Minerals] Pyridoxine HCl [Vitamin B-6] 100 mg PO DAILY@1700 #30 tab 09/18/14 Losartan Potassium [Cozaar] 12.5 mg PO DAILY@2200 01/12/16 Riboflavin [Vitamin B2] 300 mg PO DAILY@1700 11/10/16 Ascorbic Acid [Vitamin C] 1,000 mg PO DAILY 07/05/18 Escitalopram Oxalate [Lexapro] 10 mg PO DAILY 07/05/18 Gabapentin [Neurontin] 600 mg PO 4X/DAY 07/05/18 [place] Carbonate 150 mg PO TID 07/05/18 Atorvastatin Calcium [Lipitor] 40 mg PO QHS #90 tab 07/09/18 Carvedilol [Coreg (Beta Krissy)] 6.25 mg PO BID #90 tab 07/09/18 Clopidogrel Bisulfate [Plavix] 75 mg PO DAILY #90 tab 07/09/18 Isosorbide Mononitrate 10 mg PO QHS #90 tab 07/09/18 Morphine Sulfate [Morphine Sulfate 30 mg PO BID 2 Days #4 tablet.er 07/09/18 ER] baclofen 10 mg tablet 5 mg PO BID PRN tab 07/27/18 Hydrocodone/Acetaminophen 10 - 325 mg PO DAILY 08/10/18 [Hydrocodone-Acetamin 10-325 mg] Nitrofurantoin Macrocrystals 100 mg PO BID 08/10/18 [Macrobid] Furosemide [Lasix] 40 mg PO DAILY 08/11/18 Magnesium 400 mg PO BID 08/11/18 Potassium Chloride 20 meq DAILY 08/11/18 Sennosides/Docusate Sodium 2 each PO DAILY 08/11/18 [Senna-S Laxative Tablet] traZODone [Desyrel] 25 mg PO QHS 08/11/18 Surgical History: - - Laminectomy 20062007. History of INPATIENT CODER shunt for subarachnoid hemorrhage which secondarily got infected with E. coli. 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 Psychiatric History: No pertinent psych hx, - - he is very angry now and his attributes this to the steroids....she states it makes him mean. 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 Lives: Long Term Smoking Status: Never smoker - *Family History Maternal History Items: - - , depression Paternal History Items: - - Offspring History Items: - - 2 children, 4 grand children, 1 great grandchild, all in good health Review of Systems Constitutional: Denies: Chills, Fever Gastrointestinal: Denies: Nausea, Vomiting Skin: Reports: Wounds Neurological: Reports: Confusion - Relates to some altered mental status changes with recent UTI, - - Paraplegia Patient Problems: Active and Suspected Problems (Last Reviewed 08/11/18 @ 03:04 by Dany Kwon MD) Acute encephalopathy (Acute) - Physical Exam General: Alert, Oriented x3, Cooperative, No apparent distress, - - Resting comfortably in bed. Extremities: No cyanosis, Capillary Refill Less than 3 Seconds, No Calf Tenderness, - - No evidence of acute ischemia to the foot or ankle bilateral, temperature within normal limits bilateral foot/ankle. Skin: Ulcer/ Wound - Dry eschar to the posterior heels bilateral, as well as to the lateral ankle on the right and posterior lateral distal proximal ankle on the left, eschars are dry and intact, margins intact and viable in appearance, there is some very slight drainage which is bloody to the proximal lateral right ankle from a new superficial blister. There is noted erythema to the lateral right ankle and heel, none on the left foot or ankle, there is no streaking, no visible abscess, no maloder, no fluctuance, no crepitus bilateral foot/ankle. Skin thin and atrophic bilateral, no hair is seen bilateral foot/ankle. Musculoskeletal: No Tenderness to Palpation of Joints or Extremities - of the foot or ankle bilateral. Muscle strength significantly diminished/absent to the foot/ankle bilateral. Sensation significantly diminished/absent to the foot/ankle. Psych/Mental Status: Normal Affect, Alert and oriented to time, place, person, mood and affect Vital Signs Temp Pulse Resp BP Pulse Ox 98.3 F 73 16 112/58 L 97 08/11/18 14:38 08/11/18 14:38 08/11/18 14:38 08/11/18 14:38 08/11/18 14:38 Oxygen Flow Rate (L/min) 2 Oxygen Delivery Method Nasal Cannula Weight: 80.7 kg Body Mass Index (BMI) 25.5 Intake and Output for Last 24 Hours 08/09/18 08/10/18 08/11/18 23:59 23:59 23:59 Intake Total 1110 / 1110 Output Total 700 / 700 Balance 410 / 410 Microbiology Past 72 Hours 08/11/18 13:43 Gram Stain - Final Wound - Heel Right Laboratory Tests Past 24 Hrs 08/11/18 08/11/18 08/11/18 05:15 09:05 09:05 Sodium 142 Potassium 4.6 Chloride 104 Carbon Dioxide 32.0 Anion Gap 6 BUN 23 H Creatinine 0.74 Estim Creat Clear Calc 60.83 Est GFR (MDRD) Af Amer 130 Est GFR (MDRD) Non-Af 108 BUN/Creatinine Ratio 31.0 H Glucose 95 Calcium 8.5 S.aureus Protein A PCR NEGATIVE MRSA (PCR) Negative Negative 08/11/18 13:42 Sodium Potassium Chloride Carbon Dioxide Anion Gap BUN Creatinine Estim Creat Clear Calc Est GFR (MDRD) Af Amer Est GFR (MDRD) Non-Af BUN/Creatinine Ratio Glucose Calcium S.aureus Protein A PCR Cancelled MRSA (PCR) Cancelled POC Glucose 08/11/18 08/11/18 11:24 06:56 POC Glucose 114 H 103 Assessment/Plan All Active Problems (Last Reviewed 08/11/18 @ 03:04 by Dany Kwon MD) Acute encephalopathy (Acute) Non-STEMI (non-ST elevated myocardial infarction) (Acute) Abnormal EKG (Acute) Decubitus pressure ulcerations bilateral heel, lateral right ankle and lateral distal left leg - unstagable Cellulitis right heel/lateral ankle History of peripheral vascular disease A culture was obtained and sent to microbiology right lateral ankle. The patient is already on IV antibiotics for his UTI. Continue to follow cultures and adjust antibiotics as needed. Right foot/ankle/ and tib/fib as well as left foot and tib/fib xrays obtained and reviewed. MRIs were also ordered for further evaluation. Noninvasive lower extremity arterial study was ordered for further evaluation of lower extremity arterial flow. There is no evidence of acute ischemia at this time. Santyl with overlying gauze dressing changes were ordered. Keep pressure off of wound sites at all times - using offloading foam boots as wells pillows. No weightbearing to heels bilateral. Discharge planning: Pending further workup, however would recommend patient follow up at wound center once discharged from on going wound care. Podiatry will continue to follow, thank you for consultation.
[2018-08-11] MEDS: Gabapentin 300 MG Capsule 600 MG PO ×2 (16:23→22:20)
--- NOTE | 2018-08-11 16:27 | CON.PCM_ITS ---
Reason for Consult Date of Consultation: 08/11/18 Reason for Consultation: Pressurel Ulcerations Bilateral Heels History of Present Illness: The patient is a 82 year old with history of paraplegia secondary to 2003 subarachnoid hemorrhage complicated by meningitis was seen today for bilateral heel ulcerations. Patient's was at bedside and history was obtained by both patient and his , along with chart review. They relates the pressure ulcers to the heels started early June 2018 during his last admission, states heels were not offloaded and the pressure ulcers started. Patient was then transferred to [facility], and has been receiving wound care - [facility] with daily dressing changes. Patient has offloaded foam boots which he has been using. They relate nurse at [facility] recommended second opinion, but they had difficult time getting into the wound center, so saw Dr. Byrne ~1 week ago. They relate he puts weight on his heels when standing during physical therapy. He relates to history of peripheral vascular disease, states he has been seen by Dr. Jose Lagos in the past, many years ago. States there was attempts to places stents in lower extremity arteries but unsuccessful at that time, and states he has not seen vascular surgery since. Patient current admission is for recurrent UTI, relates this is the third UTI recently. He has no pain to the heels at this time. He is resting in bed with dressings in place and foam heel offloading boots on. WBC WNL, patient afebrile at this time. 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 Medical History: Medical History (Last Reviewed 08/11/18 @ 03:04 by Dany Kwon MD) Non-STEMI (non-ST elevated myocardial infarction) (Acute) I21.4 HTN (hypertension) (Chronic) I10 PAD (peripheral artery disease) (Chronic) I73.9 Paraplegia (Chronic) G82.20 due to transverse myelitis Allergies Cephalosporins Allergy (Intermediate, Verified 08/10/18 20:29) Laryngospasms Penicillins Allergy (Intermediate, Verified 08/10/18 20:29) Rash IVP DYE Allergy (Uncoded 07/05/18 10:04) Rash Home Medications: Ambulatory Orders Medication Instructions Recorded Multivitamins,Ther W-Minerals 1 tab PO DAILY@1700 #30 tab 09/18/14 [Multivitamin With Minerals] Pyridoxine HCl [Vitamin B-6] 100 mg PO DAILY@1700 #30 tab 09/18/14 Losartan Potassium [Cozaar] 12.5 mg PO DAILY@2200 01/12/16 Riboflavin [Vitamin B2] 300 mg PO DAILY@1700 11/10/16 Ascorbic Acid [Vitamin C] 1,000 mg PO DAILY 07/05/18 Escitalopram Oxalate [Lexapro] 10 mg PO DAILY 07/05/18 Gabapentin [Neurontin] 600 mg PO 4X/DAY 07/05/18 [place] Carbonate 150 mg PO TID 07/05/18 Atorvastatin Calcium [Lipitor] 40 mg PO QHS #90 tab 07/09/18 Carvedilol [Coreg (Beta Krissy)] 6.25 mg PO BID #90 tab 07/09/18 Clopidogrel Bisulfate [Plavix] 75 mg PO DAILY #90 tab 07/09/18 Isosorbide Mononitrate 10 mg PO QHS #90 tab 07/09/18 Morphine Sulfate [Morphine Sulfate 30 mg PO BID 2 Days #4 tablet.er 07/09/18 ER] baclofen 10 mg tablet 5 mg PO BID PRN tab 07/27/18 Hydrocodone/Acetaminophen 10 - 325 mg PO DAILY 08/10/18 [Hydrocodone-Acetamin 10-325 mg] Nitrofurantoin Macrocrystals 100 mg PO BID 08/10/18 [Macrobid] Furosemide [Lasix] 40 mg PO DAILY 08/11/18 Magnesium 400 mg PO BID 08/11/18 Potassium Chloride 20 meq DAILY 08/11/18 Sennosides/Docusate Sodium 2 each PO DAILY 08/11/18 [Senna-S Laxative Tablet] traZODone [Desyrel] 25 mg PO QHS 08/11/18 Surgical History: - - Laminectomy 20062007. History of TUBE INSPECTOR shunt for subarachnoid hemorrhage which secondarily got infected with E. coli. 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 Psychiatric History: No pertinent psych hx, - - he is very angry now and his attributes this to the steroids....she states it makes him mean. 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 Lives: Senior Living Smoking Status: Never smoker - *Family History Maternal History Items: - - , depression Paternal History Items: - - Offspring History Items: - - 2 children, 4 grand children, 1 great grandchild, all in good health Review of Systems Constitutional: Denies: Chills, Fever Gastrointestinal: Denies: Nausea, Vomiting Skin: Reports: Wounds Neurological: Reports: Confusion - Relates to some altered mental status changes with recent UTI, - - Paraplegia Patient Problems: Active and Suspected Problems (Last Reviewed 08/11/18 @ 03:04 by Dany Kwon MD) Acute encephalopathy (Acute) - Physical Exam General: Alert, Oriented x3, Cooperative, No apparent distress, - - Resting comfortably in bed. Extremities: No cyanosis, Capillary Refill Less than 3 Seconds, No Calf Tenderness, - - No evidence of acute ischemia to the foot or ankle bilateral, temperature within normal limits bilateral foot/ankle. Skin: Ulcer/ Wound - Dry eschar to the posterior heels bilateral, as well as to the lateral ankle on the right and posterior lateral distal proximal ankle on the left, eschars are dry and intact, margins intact and viable in appearance, there is some very slight drainage which is bloody to the proximal lateral right ankle from a new superficial blister. There is noted erythema to the lateral right ankle and heel, none on the left foot or ankle, there is no streaking, no visible abscess, no maloder, no fluctuance, no crepitus bilateral foot/ankle. Skin thin and atrophic bilateral, no hair is seen bilateral foot/ ankle. Musculoskeletal: No Tenderness to Palpation of Joints or Extremities - of the foot or ankle bilateral. Muscle strength significantly diminished/absent to the foot/ankle bilateral. Sensation significantly diminished/absent to the foot/ ankle. Psych/Mental Status: Normal Affect, Alert and oriented to time, place, person, mood and affect Vital Signs Temp Pulse Resp BP Pulse Ox 98.3 F 73 16 112/58 L 97 08/11/18 14:38 08/11/18 14:38 08/11/18 14:38 08/11/18 14:38 08/11/18 14:38 Oxygen Flow Rate (L/min) 2 Oxygen Delivery Method Nasal Cannula Weight: 80.7 kg Body Mass Index (BMI) 25.5 Intake and Output for Last 24 Hours 08/09/18 08/10/18 08/11/18 23:59 23:59 23:59 Intake Total 1110 / 1110 Output Total 700 / 700 Balance 410 / 410 Microbiology Past 72 Hours 08/11/18 13:43 Gram Stain - Final Wound - Heel Right Laboratory Tests Past 24 Hrs 08/11/18 08/11/18 08/11/18 05:15 09:05 09:05 Sodium 142 Potassium 4.6 Chloride 104 Carbon Dioxide 32.0 Anion Gap 6 BUN 23 H Creatinine 0.74 Estim Creat Clear Calc 60.83 Est GFR (MDRD) Af Amer 130 Est GFR (MDRD) Non-Af 108 BUN/Creatinine Ratio 31.0 H Glucose 95 Calcium 8.5 S.aureus Protein A PCR NEGATIVE MRSA (PCR) Negative Negative 08/11/18 13:42 Sodium Potassium Chloride Carbon Dioxide Anion Gap BUN Creatinine Estim Creat Clear Calc Est GFR (MDRD) Af Amer Est GFR (MDRD) Non-Af BUN/Creatinine Ratio Glucose Calcium S.aureus Protein A PCR Cancelled MRSA (PCR) Cancelled POC Glucose 08/11/18 08/11/18 11:24 06:56 POC Glucose 114 H 103 Assessment/Plan All Active Problems (Last Reviewed 08/11/18 @ 03:04 by Dany Kwon MD) Acute encephalopathy (Acute) Non-STEMI (non-ST elevated myocardial infarction) (Acute) Abnormal EKG (Acute) Decubitus pressure ulcerations bilateral heel, lateral right ankle and lateral distal left leg - unstagable Cellulitis right heel/lateral ankle History of peripheral vascular disease A culture was obtained and sent to microbiology right lateral ankle. The patient is already on IV antibiotics for his UTI. Continue to follow cultures and adjust antibiotics as needed. Right foot/ankle/ and tib/fib as well as left foot and tib/fib xrays obtained and reviewed. MRIs were also ordered for further evaluation. Noninvasive lower extremity arterial study was ordered for further evaluation of lower extremity arterial flow. There is no evidence of acute ischemia at this time. Santyl with overlying gauze dressing changes were ordered. Keep pressure off of wound sites at all times - using offloading foam boots as wells pillows. No weightbearing to heels bilateral. Discharge planning: Pending further workup, however would recommend patient follow up at wound center once discharged from on going wound care. Podiatry will continue to follow, thank you for consultation.
[2018-08-11] MEDS: Baclofen 10 MG Tablet 5 MG PO ×2 (17:01→22:40)
[2018-08-11 17:16] LABS: Bedside Glucose 115 mg/dL (70-110)
[2018-08-11] MEDS: Pyridoxine HCl 100 MG Tablet PO (18:48)
[2018-08-11] MEDS: Multivitamins,Ther W-Minerals Tablet 1 TABLET PO (18:48)
[2018-08-11] MEDS: HYDROcodone Bitartrate/Apap 5/325 Tablet PO (18:48)
[2018-08-11] MEDS: Tamsulosin HCl 0.4 MG Capsule PO (19:58)
[2018-08-11] MEDS: Acetaminophen 325 MG Tablet 650 MG PO (19:58)
[2018-08-11] MEDS: Atorvastatin Calcium 40 MG Tablet PO (22:20)
[2018-08-11] MEDS: traZODone 50 MG Tablet 25 MG PO (22:20)
[2018-08-11] MEDS: Losartan Potassium 25 MG Tablet 12.5 MG PO (22:21)
[2018-08-11] MEDS: Isosorbide Mononitrate 20 MG Tablet 10 MG PO (22:23)
[2018-08-11] MEDS: Furosemide 40 MG Tablet PO (22:24)
[2018-08-11 22:35] LABS: Bedside Glucose 99 mg/dL (70-110)
[2018-08-12] VITALS (11 sets, daily range): BP systolic 131–153; BP diastolic 58–85; PULSE 61–78; RESP 16–17; TEMP 36.8–37.5; O2SAT 92–96
[2018-08-12 01:08] LABS: Magnesium 2.3 mg/dL (1.6-2.6)
[2018-08-12 07:05] LABS: Bedside Glucose 95 mg/dL (70-110)
--- NOTE | 2018-08-12 08:00 | MRI_ITS ---
STUDY: MRI RIGHT ANKLE WITHOUT CONTRAST REASON FOR EXAM: Male, 82 years old. Heel ulcer. Paraplegia. TECHNIQUE: Standardized fat and water weighted pulse sequences were obtained in all 3 orthogonal planes. COMPARISON: X-ray August 11, 2018. FINDINGS: There is skin thickening with focal defect consistent with ulcer. There is marrow edema of the posterior inferior calcaneus consistent with contiguous spread osteomyelitis, series 7 images 30 through 07/26. There is mild marrow edema of the lateral malleolus, series 7 image 14/30. Normal posterior tibialis tendon. There is accessory navicular incorporated into the distal tendon. Normal flexor digitorum longus tendon. Normal flexor hallucis longus tendon. Normal peroneus longus and brevis tendons. Normal tibialis anterior tendon. Normal extensor hallucis longus tendon. Normal extensor digitorum longus tendons. Normal Achilles tendon and teno-osseous insertion. There is enthesophyte at the posterior calcaneus adjacent to the insertion. Normal plantar fascia. Normal plantar calcaneal tubercles. Normal intrinsic muscles of the rearfoot. Normal distal tibiofibular syndesmotic ligamentous complex. Normal lateral ligamentous complex. Normal subtalar ligaments and sinus tarsi. Normal deltoid ligamentous complexes. Normal plantar calcaneonavicular (spring) ligament. Normal tibiotalar articulation. Normal talar dome. Normal subtalar articulations. Normal talonavicular articulation. Normal calcaneocuboid articulation. Normal navicular-cuneiform articulations. 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 Mild edema with possible osteomyelitis of the lateral malleolus. Electronically Signed: Gigi Cook MD at 13:54 EDT , Service support ,
[2018-08-12] MEDS: Gabapentin 300 MG Capsule 600 MG PO ×2 (12:13→17:55)
[2018-08-12] MEDS: Carvedilol 6.25 MG Tablet PO ×2 (12:14→22:49)
[2018-08-12] MEDS: Famotidine 20 MG Tablet PO ×2 (12:14→17:55)
[2018-08-12] MEDS: Ascorbic Acid 500 MG Tablet 1000 MG PO (12:14)
[2018-08-12] MEDS: Magnesium Oxide 400 MG Tablet PO ×2 (12:15→22:47)
[2018-08-12] MEDS: Escitalopram Oxalate 10 MG Tablet PO (12:15)
[2018-08-12] MEDS: Clopidogrel Bisulfate 75 MG Tablet PO (12:16)
[2018-08-12] MEDS: Collagenase 30gm Tube 1 APPLIC TOPICAL (12:17)
[2018-08-12] MEDS: 0.9% NaCl Peripheral Flush Adult/Peds IV ×2 (12:19→22:50)
--- NOTE | 2018-08-12 12:27 | PCM.PROGNOTE ---
<Nadira Goldberg - Last Filed: 08/12/18 12:42> Patient Problems: Active and Suspected Problems (Last Reviewed 08/11/18 @ 03:04 by Dany Kwon MD) Acute encephalopathy (Acute) Subjective: Patient seen and examined. States he feels somewhat improved. Denies fever, chills. Complains of intermittent lower back spasms. Denies other complaints. - Physical Exam General: Alert, Oriented x3, Cooperative, No apparent distress HEENT: Atraumatic, PERRLA, EOMI, Normocephalic Neck: Supple, No JVD, Negative Carotid Bruits Lungs: Clear to auscultation, Diminished Cardiovascular: Regular rate, Regular Rhythm, Normal S1, Normal S2, No murmurs Abdomen: Bowel Sounds Present, Soft, Non Tender, Non-Distended Extremities: No clubbing, No cyanosis, No edema, Capillary Refill Less than 3 Seconds Skin: - - Stage II coccyx decubital ulcer, bilateral heel pressure wounds. Both present on admission. Musculoskeletal: No Tenderness to Palpation of Joints or Extremities Neurological: Cranial nerves II-XII grossly intact, Neuro grossly intact Psych/Mental Status: Normal Affect, Appropriate Vital Signs Temp Pulse Resp BP Pulse Ox 98.4 F 78 16 139/58 H 95 08/12/18 10:12 08/12/18 10:12 08/12/18 10:12 08/12/18 10:12 08/12/18 10:12 Oxygen Flow Rate (L/min) 2 Oxygen Delivery Method Room Air Weight: 177 lb 14.609 oz Body Mass Index (BMI) 25.5 Intake and Output for Last 24 Hours 08/10/18 08/11/18 08/12/18 23:59 23:59 23:59 Intake Total 2516 / 2516 758.9 / 758.9 Output Total 1999 1175 / 1175 Balance 516 / 516 -416.1 / -416.1 Microbiology Past 72 Hours 08/11/18 13:43 Gram Stain - Final Wound - Heel Right Laboratory Tests Past 24 Hrs 08/11/18 13:42 S.aureus Protein A PCR Cancelled MRSA (PCR) Cancelled POC Glucose 08/12/18 08/11/18 08/11/18 06:44 22:31 16:59 POC Glucose 95 99 115 H Medical Necessity - Tobacco Use Smoking Status: Never smoker Assessment/Plan All Active Problems (Last Reviewed 08/11/18 @ 03:04 by Dany Kwon MD) Acute encephalopathy (Acute) Non-STEMI (non-ST elevated myocardial infarction) (Acute) Abnormal EKG (Acute) 1. Acute encephalopathy suspected secondary to acute cystitis-mental status at baseline. Patient with history of recurrent cystitis secondary to chronic urinary retention with yegr-hrmwjqpnpjyayzv-ga meropenem and vancomycin given complicated history of urine cultures, positive for enterococcus and Pseudomonas with allergy to penicillins and cephalosporins. Wheeler in place. Urine culture positive for Citrobacter. Blood culture pending. Consult infectious disease given recurrent UTI. 2. History of NSTEMI-continue Plavix, statin, Coreg, losartan. Denies chest pain. Follows as outpatient with [facility]. 3. Stage II decubitus coccyx ulcer/bilateral heel unstageable pressure injuries-present on admission. Podiatry consulted. Wound RN consult. Frequent position changes. MRI of bilateral lower extremities ordered to assess bilateral heel pressure ulcers. Wound culture right heel shows no growth. Noninvasive lower extremity arterial study ordered. Continue dressing changes as ordered: Santyl, gauze, offloading foam boots. 4. Type 2 diabetes mellitus-home metformin regimen continued. 5. 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 PT/OT. 6. 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 8. PVD-continue statin, Plavix. 9. Hypertension-stable, continue home carvedilol, losartan regimen. 10. Depression-continue home Lexapro regimen. DVT prophylaxis-Lovenox subcu. This patient was seen by EYAD Stevens under the supervision of Dr. Ty. <Rafiq Ty - Last Filed: 08/12/18 15:58> Subjective: No fever or chills. Patient went for MRI lower extremities - Physical Exam General: Alert, Oriented x3, Cooperative HEENT: Atraumatic, PERRLA, EOMI, Normocephalic Neck: Supple, No JVD, Negative Carotid Bruits Lungs: Clear to auscultation, Normal air movement Cardiovascular: Regular rate, No murmurs Abdomen: Bowel Sounds Present, Soft, Non Tender Extremities: No edema, Capillary Refill Less than 3 Seconds Skin: No rashes, No breakdown, - Musculoskeletal: No Tenderness to Palpation of Joints or Extremities, Arthritic Changes, Muscle Wasting Neurological: Cranial nerves II-XII grossly intact, - - Paraplegia with neurogenic bladder Psych/Mental Status: Normal Affect, Appropriate Vital Signs Temp Pulse Resp BP Pulse Ox 98.4 F 76 16 139/58 H 95 08/12/18 10:12 08/12/18 12:09 08/12/18 10:12 08/12/18 10:12 08/12/18 10:12 Oxygen Flow Rate (L/min) 2 Oxygen Delivery Method Room Air Weight: 177 lb 14.609 oz Body Mass Index (BMI) 25.5 Intake and Output for Last 24 Hours 08/10/18 08/11/18 08/12/18 23:59 23:59 23:59 Intake Total 2516 / 2516 758.9 / 758.9 Output Total 1999 1175 / 1175 Balance 516 / 516 -416.1 / -416.1 Microbiology Past 72 Hours 08/11/18 13:43 Gram Stain - Final Wound - Heel Right Wound Culture - Preliminary GNR Poss Pseudomonas sp POC Glucose 08/12/18 08/12/18 08/11/18 11:27 06:44 22:31 POC Glucose 108 95 99 08/11/18 16:59 POC Glucose 115 H Assessment/Plan This patient was seen in conjunction with PAPER CONE MACHINE OPERATOR, Nadira. I have independently interviewed and examined the patient and reviewed pertinent history, examination findings, laboratory and plan of management. I have reviewed the note and agree with the documented findings with the few additional points. In brief, patient is admitted for acute encephalopathy, most probably multiple etiologies including infectious in etiology from UTI and decubitus ulcer, metabolic encephalopathy. Patient has history of recurrent UTI in the past and has grown enterococcus faecalis, vancomycin sensitive, Citrobacter, Pseudomonas in previous urine culture. In view of history of penicillin (rash) and cephalosporins allergy (had difficulty in breathing), antibiotic selection became challenging. Started on IV vancomycin and meropenem follow cultures. Aircraft Cabin Cleaner, Dr. Quintana has been consulted. Blood cultures ?2 pending. he ordered arterial Doppler, wound culture and MRI of lower extremities. Discussed with him. Wound culture shows Pseudomonas and urine culture Citrobacter. MRSA nasal screen is negative. Vancomycin discontinued. 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 ID has been consulted for long-term antibiotic. Further care as per Dr. Quintana for wound debridement I have discussed my assessment with PAPER CONE MACHINE OPERATOR, Nadira and orders have been reviewed. Clinical Impression(s) from Imaging Studies Chest X-Ray 08/10/18 20:55 IMPRESSION: Mild bibasilar atelectasis or infiltrates with significant improvement since previous exam Foot X-Ray 08/11/18 13:47 IMPRESSION: Soft tissue swelling. No osseous abnormality. Foot X-Ray 08/11/18 14:53 IMPRESSION: Soft tissue swelling. No destructive bone changes are seen. Lower Extremity MRI 08/12/18 08:00 IMPRESSION: Marrow edema consistent with contiguous spread osteomyelitis of the calcaneus. Mild edema with possible osteomyelitis of the lateral malleolus. Lower Extremity MRI 08/12/18 13:46 IMPRESSION: Mild marrow edema of the calcaneus and lateral malleolus with osteomyelitis versus stress injury. Code Visit Inpatient E&M: 23280 Subs Hosp L3
--- NOTE | 2018-08-12 12:36 | PN_ITS ---
<Nadira Goldberg - Last Filed: 08/12/18 12:42> Patient Problems: Active and Suspected Problems (Last Reviewed 08/11/18 @ 03:04 by Dany Kwon MD) Acute encephalopathy (Acute) Subjective: Patient seen and examined. States he feels somewhat improved. Denies fever, chills. Complains of intermittent lower back spasms. Denies other complaints. - Physical Exam General: Alert, Oriented x3, Cooperative, No apparent distress HEENT: Atraumatic, PERRLA, EOMI, Normocephalic Neck: Supple, No JVD, Negative Carotid Bruits Lungs: Clear to auscultation, Diminished Cardiovascular: Regular rate, Regular Rhythm, Normal S1, Normal S2, No murmurs Abdomen: Bowel Sounds Present, Soft, Non Tender, Non-Distended Extremities: No clubbing, No cyanosis, No edema, Capillary Refill Less than 3 Seconds Skin: - - Stage II coccyx decubital ulcer, bilateral heel pressure wounds. Both present on admission. Musculoskeletal: No Tenderness to Palpation of Joints or Extremities Neurological: Cranial nerves II-XII grossly intact, Neuro grossly intact Psych/Mental Status: Normal Affect, Appropriate Vital Signs Temp Pulse Resp BP Pulse Ox 98.4 F 78 16 139/58 H 95 08/12/18 10:12 08/12/18 10:12 08/12/18 10:12 08/12/18 10:12 08/12/18 10:12 Oxygen Flow Rate (L/min) 2 Oxygen Delivery Method Room Air Weight: 177 lb 14.609 oz Body Mass Index (BMI) 25.5 Intake and Output for Last 24 Hours 08/10/18 08/11/18 08/12/18 23:59 23:59 23:59 Intake Total 2516 / 2516 758.9 / 758.9 Output Total 1999 1175 / 1175 Balance 516 / 516 -416.1 / -416.1 Microbiology Past 72 Hours 08/11/18 13:43 Gram Stain - Final Wound - Heel Right Laboratory Tests Past 24 Hrs 08/11/18 13:42 S.aureus Protein A PCR Cancelled MRSA (PCR) Cancelled POC Glucose 08/12/18 08/11/18 08/11/18 06:44 22:31 16:59 POC Glucose 95 99 115 H Medical Necessity - Tobacco Use Smoking Status: Never smoker Assessment/Plan All Active Problems (Last Reviewed 08/11/18 @ 03:04 by Dany Kwon MD) Acute encephalopathy (Acute) Non-STEMI (non-ST elevated myocardial infarction) (Acute) Abnormal EKG (Acute) 1. Acute encephalopathy suspected secondary to acute cystitis-mental status at baseline. Patient with history of recurrent cystitis secondary to chronic urinary retention with twta-tgwdxizocblnfhq-mt meropenem and vancomycin given complicated history of urine cultures, positive for enterococcus and Pseudomonas with allergy to penicillins and cephalosporins. Wheeler in place. Urine culture positive for Citrobacter. Blood culture pending. Consult infectious disease given recurrent UTI. 2. History of NSTEMI-continue Plavix, statin, Coreg, losartan. Denies chest pain. Follows as outpatient with [facility]. 3. Stage II decubitus coccyx ulcer/bilateral heel unstageable pressure injuries- present on admission. Podiatry consulted. Wound RN consult. Frequent position changes. MRI of bilateral lower extremities ordered to assess bilateral heel pressure ulcers. Wound culture right heel shows no growth. Noninvasive lower extremity arterial study ordered. Continue dressing changes as ordered: Santyl , gauze, offloading foam boots. 4. Type 2 diabetes mellitus-home metformin regimen continued. 5. 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 PT/OT. 6. 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 8. PVD-continue statin, Plavix. 9. Hypertension-stable, continue home carvedilol, losartan regimen. 10. Depression-continue home Lexapro regimen. DVT prophylaxis-Lovenox subcu. This patient was seen by EYAD Stevens under the supervision of Dr. Ty. <Rafiq Ty - Last Filed: 08/12/18 15:58> Subjective: No fever or chills. Patient went for MRI lower extremities - Physical Exam General: Alert, Oriented x3, Cooperative HEENT: Atraumatic, PERRLA, EOMI, Normocephalic Neck: Supple, No JVD, Negative Carotid Bruits Lungs: Clear to auscultation, Normal air movement Cardiovascular: Regular rate, No murmurs Abdomen: Bowel Sounds Present, Soft, Non Tender Extremities: No edema, Capillary Refill Less than 3 Seconds Skin: No rashes, No breakdown, - Musculoskeletal: No Tenderness to Palpation of Joints or Extremities, Arthritic Changes, Muscle Wasting Neurological: Cranial nerves II-XII grossly intact, - - Paraplegia with neurogenic bladder Psych/Mental Status: Normal Affect, Appropriate Vital Signs Temp Pulse Resp BP Pulse Ox 98.4 F 76 16 139/58 H 95 08/12/18 10:12 08/12/18 12:09 08/12/18 10:12 08/12/18 10:12 08/12/18 10:12 Oxygen Flow Rate (L/min) 2 Oxygen Delivery Method Room Air Weight: 177 lb 14.609 oz Body Mass Index (BMI) 25.5 Intake and Output for Last 24 Hours 08/10/18 08/11/18 08/12/18 23:59 23:59 23:59 Intake Total 2516 / 2516 758.9 / 758.9 Output Total 1999 1175 / 1175 Balance 516 / 516 -416.1 / -416.1 Microbiology Past 72 Hours 08/11/18 13:43 Gram Stain - Final Wound - Heel Right Wound Culture - Preliminary GNR Poss Pseudomonas sp POC Glucose 08/12/18 08/12/18 08/11/18 11:27 06:44 22:31 POC Glucose 108 95 99 08/11/18 16:59 POC Glucose 115 H Assessment/Plan This patient was seen in conjunction with EDITOR PRODUCER, Nadira. I have independently interviewed and examined the patient and reviewed pertinent history, examination findings, laboratory and plan of management. I have reviewed the note and agree with the documented findings with the few additional points. In brief, patient is admitted for acute encephalopathy, most probably multiple etiologies including infectious in etiology from UTI and decubitus ulcer, metabolic encephalopathy. Patient has history of recurrent UTI in the past and has grown enterococcus faecalis, vancomycin sensitive, Citrobacter, Pseudomonas in previous urine culture. In view of history of penicillin (rash) and cephalosporins allergy (had difficulty in breathing), antibiotic selection became challenging. Started on IV vancomycin and meropenem follow cultures. Agate Setter, Dr. Quintana has been consulted. Blood cultures ?2 pending. he ordered arterial Doppler, wound culture and MRI of lower extremities. Discussed with him. Wound culture shows Pseudomonas and urine culture Citrobacter. MRSA nasal screen is negative. Vancomycin discontinued. 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 ID has been consulted for long-term antibiotic. Further care as per Dr. Quintana for wound debridement I have discussed my assessment with EDITOR PRODUCER, Nadira and orders have been reviewed. Clinical Impression(s) from Imaging Studies Chest X-Ray 08/10/18 20:55 IMPRESSION: Mild bibasilar atelectasis or infiltrates with significant improvement since previous exam Foot X-Ray 08/11/18 13:47 IMPRESSION: Soft tissue swelling. No osseous abnormality. Foot X-Ray 08/11/18 14:53 IMPRESSION: Soft tissue swelling. No destructive bone changes are seen. Lower Extremity MRI 08/12/18 08:00 IMPRESSION: Marrow edema consistent with contiguous spread osteomyelitis of the calcaneus. Mild edema with possible osteomyelitis of the lateral malleolus. Lower Extremity MRI 08/12/18 13:46 IMPRESSION: Mild marrow edema of the calcaneus and lateral malleolus with osteomyelitis versus stress injury. Code Visit Inpatient E&M: 82397 Subs Hosp L3
--- NOTE | 2018-08-12 13:46 | MRI_ITS ---
STUDY: MRI LEFT ANKLE WITHOUT CONTRAST REASON FOR EXAM: Male, 82 years old. Heel ulcer. Paraplegia. TECHNIQUE: Standardized fat and water weighted pulse sequences were obtained in all 3 orthogonal planes. COMPARISON: X-ray August 11, 2018 FINDINGS: There is a posterior skin thickening and subcutaneous edema. Normal posterior tibialis tendon. There is accessory navicular incorporated into the distal tendon. Normal flexor digitorum longus tendon. Normal flexor hallucis longus tendon. Normal peroneus longus and brevis tendons. Normal tibialis anterior tendon. Normal extensor hallucis longus tendon. Normal extensor digitorum longus tendons. Normal Achilles tendon and teno-osseous insertion. There is enthesophyte of the posterior calcaneus adjacent to the insertion. There is mild marrow edema signal hyperintensity in the lateral side of the calcaneus, series 5 image 17/28. There is mild marrow edema of the lateral malleolus of the distal fibula, series 5 images through Normal plantar fascia. Normal plantar calcaneal tubercles. Normal intrinsic muscles of the rearfoot. Normal distal tibiofibular syndesmotic ligamentous complex. Normal lateral ligamentous complex. Normal subtalar ligaments and sinus tarsi. Normal deltoid ligamentous complexes. Normal plantar calcaneonavicular (spring) ligament. Normal tibiotalar articulation. Normal talar dome. Normal subtalar articulations. Normal talonavicular articulation. Normal calcaneocuboid articulation. Normal navicular-cuneiform articulations. MRI/Lower Ext Joint Only (Routine) IMPRESSION: Mild marrow edema of the calcaneus and lateral malleolus with osteomyelitis versus stress injury. Electronically Signed: Gigi Cook MD at 13:44 EDT , Service support ,
[2018-08-12 14:01] LABS: Bedside Glucose 108 mg/dL (70-110)
[2018-08-12 17:46] LABS: Bedside Glucose 102 mg/dL (70-110)
[2018-08-12] MEDS: Pyridoxine HCl 100 MG Tablet PO (17:55)
[2018-08-12] MEDS: Multivitamins,Ther W-Minerals Tablet 1 TABLET PO (17:55)
[2018-08-12] MEDS: Tamsulosin HCl 0.4 MG Capsule PO (17:55)
--- NOTE | 2018-08-12 18:27 | CT_ITS ---
STUDY: CT BRAIN WITHOUT CONTRAST REASON FOR EXAM: Male, 82 years old. Altered mental status. RADIATION DOSAGE (If Supplied By Facility): CTDIvol = ( 44.99 ) mGy, DLP = ( 1558.47 ) mGycm TECHNIQUE: Transaxial CT imaging of the brain was performed without administration of intravenous contrast material. Individualized dose optimization techniques were used for this CT. COMPARISON: 11/10/2016. FINDINGS: There is no intracranial mass, hemorrhage, or acute territorial infarct. 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 Ventriculostomy catheter terminates in the right lateral ventricle. Ventricles are normal in size. Normal soft tissue structures. Normal calvarium. Normal size ventricles and extra-axial spaces for the patient's age. Normal white matter tracts of the cerebral hemispheres. Normal basal ganglia and thalami. Normal brainstem. Normal cerebellum. There is no intracranial hemorrhage. There are no findings of an acute ischemic infarction. Normal visualized paranasal sinuses. CT/Brain/Head without Contrast IMPRESSION: 1. No acute process. 2. Chronic right parietal infarct. Electronically Signed: Jackelin Ramachandran MD at 20:43 EDT Tel , Service support ,
--- NOTE | 2018-08-12 18:55 | NURSING ---
has been made aware of MRI and x-ray results of BLE. She is also aware of medication changes, consults, and POC. is agreeable to care being provided.
[2018-08-12] MEDS: LORazepam 2 MG/ML Syringe 0.5 MG IV (19:40)
[2018-08-12 22:41] LABS: Bedside Glucose 117 mg/dL (70-110)
[2018-08-12] MEDS: Furosemide 40 MG Tablet PO (22:47)
[2018-08-12] MEDS: Atorvastatin Calcium 40 MG Tablet PO (22:47)
[2018-08-12] MEDS: Losartan Potassium 25 MG Tablet 12.5 MG PO (22:48)
[2018-08-12] MEDS: traZODone 50 MG Tablet 25 MG PO (22:48)
[2018-08-12] MEDS: Isosorbide Mononitrate 20 MG Tablet 10 MG PO (22:49)
[2018-08-12 23:35] LABS: Vancomycin, Trough Level 6.6 ug/mL (5.0-15.0)
[2018-08-13] VITALS (12 sets, daily range): BP systolic 119–176; BP diastolic 60–82; PULSE 53–76; RESP 16; TEMP 36.3–37.6; O2SAT 94–97
--- NOTE | 2018-08-13 00:43 | PCM.PROGNOTE ---
Patient Problems: Active and Suspected Problems (Last Reviewed 08/11/18 @ 03:04 by Dany Kwon MD) Acute encephalopathy (Acute) Subjective: Patient being followed for bilateral hindfoot pressure ulcerations. Patient had MRI bilateral ankle completed which did show osteomyelitis to the calcaneus bilateral and lateral malleolus left. - Physical Exam Vital Signs Temp Pulse Resp BP Pulse Ox 98.5 F 73 16 153/85 H 92 08/12/18 22:24 08/12/18 23:00 08/12/18 22:24 08/12/18 22:24 08/12/18 22:24 Oxygen Flow Rate (L/min) 2 Oxygen Delivery Method Room Air Weight: 80.7 kg Body Mass Index (BMI) 25.5 Intake and Output for Last 24 Hours 08/11/18 08/12/18 08/13/18 23:59 23:59 23:59 Intake Total 2516 / 2516 918.9 / 918.9 Output Total 1999 1325 / 1325 Balance 516 / 516 -406.1 / -406.1 Microbiology Past 72 Hours 08/11/18 13:43 Gram Stain - Final Wound - Heel Right Wound Culture - Preliminary GNR Poss Pseudomonas sp Laboratory Tests Past 24 Hrs 08/12/18 22:30 Vancomycin Trough 6.6 POC Glucose 08/12/18 08/12/18 08/12/18 22:36 17:24 11:27 POC Glucose 117 H 102 108 08/12/18 06:44 POC Glucose 95 Medical Necessity - Tobacco Use Smoking Status: Never smoker Assessment/Plan All Active Problems (Last Reviewed 08/11/18 @ 03:04 by Dany Kwon MD) Acute encephalopathy (Acute) Non-STEMI (non-ST elevated myocardial infarction) (Acute) Abnormal EKG (Acute) Decubitus pressure ulcerations bilateral heel, lateral right ankle and lateral distal left leg w/ osteomyelitis Cellulitis right heel/lateral ankle History of peripheral vascular disease Reviewed diagnostic data. Reviewed MRIs which show findings c/w osteomyelitis to the calcaneus posterior aspect bilateral and left lateral malleolus - there i no noted bone destruction, or abscess present. Continue with IV antibiotics, follow cultures. Spoke with Dr. Ty and Infectious Disease will be consulted. Noninvasive lower extremity arterial study have been ordered and pending at this time. Dressing changes: Santyl with overlying gauze dressing changes daily. Keep pressure off of wound sites at all times - using offloading foam boots as wells pillows. No weightbearing to heels bilateral. Discharge planning: Recommend patient follow up at wound center once discharged from on going wound care. Podiatry will continue to follow.
[2018-08-13 06:18] LABS: Hematocrit 31.2 % (40-54); Hemoglobin 9.9 g/dl (13.0-16.5); Mean Corp Hgb Conc 31.7 g/gl (32-36); Mean Platelet Vol. 9.8 fl (6.2-12.0); Platelet Count 164 K/mm3 (150-450); RBC Distribution Width SD 46.5 fl (35.1-43.9); Red Blood Count 3.09 M/mm3 (4.6-6.2); White Blood Count 5.1 K/mm3 (4.4-11.0)
[2018-08-13 06:19] LABS: Scan Indicated on CBC? Y/N NO
[2018-08-13 06:28] LABS: Anion Gap 6 (5-15); BUN 14 mg/dL (7-18); BUN/Creat Ratio 22.3 RATIO (10-20); Calcium,Total 8.5 mg/dL (8.5-10.1); Chloride 109 mmol/L (98-107); Creatinine, Serum 0.63 mg/dL (0.70-1.30); EST Glomerular Filtration Rate 131 mL/min (>60); Est Glom Filt Rate - Afr Amer 158 mL/min (>60); Estimated Creatinine Clearance 60.83 ml/min; Glucose 89 mg/dL (74-106); Potassium 3.7 mmol/L (3.5-5.1); Sodium Level 145 mmol/L (136-145)
[2018-08-13 06:50] LABS: Bedside Glucose 94 mg/dL (70-110)
[2018-08-13] MEDS: Clopidogrel Bisulfate 75 MG Tablet PO (09:40)
[2018-08-13] MEDS: Magnesium Oxide 400 MG Tablet PO ×2 (09:41→23:00)
[2018-08-13] MEDS: Carvedilol 6.25 MG Tablet PO ×2 (09:42→23:02)
[2018-08-13] MEDS: Ascorbic Acid 500 MG Tablet 1000 MG PO (09:42)
[2018-08-13] MEDS: Gabapentin 300 MG Capsule 600 MG PO ×5 (09:42→22:56)
--- NOTE | 2018-08-13 10:12 | CASEMGMT ---
DEBBIE faxed updates to [facility]. Nicolasa WILL PERSONAL LINES SALES EXECUTIVE
--- NOTE | 2018-08-13 10:16 | PCM.CONS.GEN ---
Reason for Consult Date of Consultation: 08/13/18 Reason for Consultation: spasms History of Present Illness: The patient is a 82 year old M with history of syringomyelia, unable to give clear history currently, apparently hospitalized for cystitis and is encephalopathic. reports he has been told in the past by [facility] neurologists that there is nothing to galindo. reports pain in his feet and arms. history of shunt due to SAH '. reports history of seizures currently on neurontin, hasnt seen a neurologist recently (last saw kacie segura ).reports paraplegic since . previously also saw ander in [place]. 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 Medical History: Medical History (Last Reviewed 08/13/18 @ 10:19 by Fernando Patterson MD) Non-STEMI (non-ST elevated myocardial infarction) (Acute) I21.4 HTN (hypertension) (Chronic) I10 PAD (peripheral artery disease) (Chronic) I73.9 Paraplegia (Chronic) G82.20 due to transverse myelitis Allergies Cephalosporins Allergy (Intermediate, Verified 08/10/18 20:29) Laryngospasms Penicillins Allergy (Intermediate, Verified 08/10/18 20:29) Rash IVP DYE Allergy (Uncoded 07/05/18 10:04) Rash Home Medications: Ambulatory Orders Medication Instructions Recorded Multivitamins,Ther W-Minerals 1 tab PO DAILY@1700 #30 tab 09/18/14 [Multivitamin With Minerals] Pyridoxine HCl [Vitamin B-6] 100 mg PO DAILY@1700 #30 tab 09/18/14 Losartan Potassium [Cozaar] 12.5 mg PO DAILY@2200 01/12/16 Riboflavin [Vitamin B2] 300 mg PO DAILY@1700 11/10/16 Ascorbic Acid [Vitamin C] 1,000 mg PO DAILY 07/05/18 Escitalopram Oxalate [Lexapro] 10 mg PO DAILY 07/05/18 Gabapentin [Neurontin] 600 mg PO 4X/DAY 07/05/18 [place] Carbonate 150 mg PO TID 07/05/18 Atorvastatin Calcium [Lipitor] 40 mg PO QHS #90 tab 07/09/18 Carvedilol [Coreg (Beta Krissy)] 6.25 mg PO BID #90 tab 07/09/18 Clopidogrel Bisulfate [Plavix] 75 mg PO DAILY #90 tab 07/09/18 Isosorbide Mononitrate 10 mg PO QHS #90 tab 07/09/18 Morphine Sulfate [Morphine Sulfate 30 mg PO BID 2 Days #4 tablet.er 07/09/18 ER] baclofen 10 mg tablet 5 mg PO BID PRN tab 07/27/18 Hydrocodone/Acetaminophen 10 - 325 mg PO DAILY 08/10/18 [Hydrocodone-Acetamin 10-325 mg] Nitrofurantoin Macrocrystals 100 mg PO BID 08/10/18 [Macrobid] Furosemide [Lasix] 40 mg PO DAILY 08/11/18 Magnesium 400 mg PO BID 08/11/18 Potassium Chloride 20 meq DAILY 08/11/18 Sennosides/Docusate Sodium 2 each PO DAILY 08/11/18 [Senna-S Laxative Tablet] traZODone [Desyrel] 25 mg PO QHS 08/11/18 Surgical History: - - Laminectomy 2006, 2007. History of FORENSIC DNA ANALYST shunt for subarachnoid hemorrhage which secondarily got infected with E. coli. 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 Psychiatric History: No pertinent psych hx, - - he is very angry now and his attributes this to the steroids....she states it makes him mean. 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 Lives: [facility] Smoking Status: Never smoker - *Family History Maternal History Items: - - , depression Paternal History Items: - - Offspring History Items: - - 2 children, 4 grand children, 1 great grandchild, all in good health Review of Systems Neurological: Reports: Confusion Unable to obtain accurate/complete ROS d/t: confusion Patient Problems: Active and Suspected Problems (Last Reviewed 08/13/18 @ 10:19 by Fernando Patterson MD) Acute encephalopathy (Acute) - Physical Exam General: Alert, Cooperative, No apparent distress Neurological: Cranial nerves II-XII grossly intact, - - ble flaccid paralysis. ue normal Vital Signs Temp Pulse Resp BP Pulse Ox 36.6 C 66 16 168/66 H 94 08/13/18 08:10 08/13/18 08:10 08/13/18 08:10 08/13/18 08:10 08/13/18 08:10 Oxygen Flow Rate (L/min) 2 Oxygen Delivery Method Nasal Cannula Weight: 80.7 kg Body Mass Index (BMI) 25.5 Intake and Output for Last 24 Hours 08/11/18 08/12/18 08/13/18 23:59 23:59 23:59 Intake Total 2516 / 2516 918.9 / 918.9 84 / 84 Output Total 1999 1325 / 1325 900 / 900 Balance 516 / 516 -406.1 / -406.1 -816 / -816 Microbiology Past 72 Hours 08/11/18 13:43 Gram Stain - Final Wound - Heel Right Wound Culture - Preliminary GNR Poss Pseudomonas sp Laboratory Tests Past 24 Hrs 08/12/18 08/13/18 08/13/18 22:30 05:10 05:10 WBC 5.1 RBC 3.09 L Hgb 9.9 L Hct 31.2 L MCV 101.0 H MCH 32.0 MCHC 31.7 L RDW 13.0 RDW Differential 46.5 H Plt Count 164 MPV 9.8 Sodium 145 Potassium 3.7 Chloride 109 H Carbon Dioxide 30.0 Anion Gap 6 BUN 14 Creatinine 0.63 L Estim Creat Clear Calc 60.83 Est GFR (MDRD) Af Amer 158 Est GFR (MDRD) Non-Af 131 BUN/Creatinine Ratio 22.3 H Glucose 89 Calcium 8.5 Vancomycin Trough 6.6 POC Glucose 08/13/18 08/12/18 08/12/18 06:34 22:36 17:24 POC Glucose 94 117 H 102 08/12/18 11:27 POC Glucose 108 Assessment/Plan All Active Problems (Last Reviewed 08/13/18 @ 10:19 by Fernando Patterson MD) Acute encephalopathy (Acute) Non-STEMI (non-ST elevated myocardial infarction) (Acute) Abnormal EKG (Acute) encephalopathy, appears to be metabolic, superimposed on 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 history of sz, not on AEDs. eeg ammonia metabolic workup
--- NOTE | 2018-08-13 10:21 | CON.PCM_ITS ---
Reason for Consult Date of Consultation: 08/13/18 Reason for Consultation: spasms History of Present Illness: The patient is a 82 year old M with history of syringomyelia, unable to give clear history currently, apparently hospitalized for cystitis and is encephalopathic. reports he has been told in the past by [facility] neurologists that there is nothing to galindo. reports pain in his feet and arms. history of shunt due to SAH '. reports history of seizures currently on neurontin, hasnt seen a neurologist recently (last saw kacie segura ).reports paraplegic since . previously also saw ander [place]. 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 Medical History: Medical History (Last Reviewed 08/13/18 @ 10:19 by Fernando Patterson MD) Non-STEMI (non-ST elevated myocardial infarction) (Acute) I21.4 HTN (hypertension) (Chronic) I10 PAD (peripheral artery disease) (Chronic) I73.9 Paraplegia (Chronic) G82.20 due to transverse myelitis Allergies Cephalosporins Allergy (Intermediate, Verified 08/10/18 20:29) Laryngospasms Penicillins Allergy (Intermediate, Verified 08/10/18 20:29) Rash IVP DYE Allergy (Uncoded 07/05/18 10:04) Rash Home Medications: Ambulatory Orders Medication Instructions Recorded Multivitamins,Ther W-Minerals 1 tab PO DAILY@1700 #30 tab 09/18/14 [Multivitamin With Minerals] Pyridoxine HCl [Vitamin B-6] 100 mg PO DAILY@1700 #30 tab 09/18/14 Losartan Potassium [Cozaar] 12.5 mg PO DAILY@2200 01/12/16 Riboflavin [Vitamin B2] 300 mg PO DAILY@1700 11/10/16 Ascorbic Acid [Vitamin C] 1,000 mg PO DAILY 07/05/18 Escitalopram Oxalate [Lexapro] 10 mg PO DAILY 07/05/18 Gabapentin [Neurontin] 600 mg PO 4X/DAY 07/05/18 [place] Carbonate 150 mg PO TID 07/05/18 Atorvastatin Calcium [Lipitor] 40 mg PO QHS #90 tab 07/09/18 Carvedilol [Coreg (Beta Krissy)] 6.25 mg PO BID #90 tab 07/09/18 Clopidogrel Bisulfate [Plavix] 75 mg PO DAILY #90 tab 07/09/18 Isosorbide Mononitrate 10 mg PO QHS #90 tab 07/09/18 Morphine Sulfate [Morphine Sulfate 30 mg PO BID 2 Days #4 tablet.er 07/09/18 ER] baclofen 10 mg tablet 5 mg PO BID PRN tab 07/27/18 Hydrocodone/Acetaminophen 10 - 325 mg PO DAILY 08/10/18 [Hydrocodone-Acetamin 10-325 mg] Nitrofurantoin Macrocrystals 100 mg PO BID 08/10/18 [Macrobid] Furosemide [Lasix] 40 mg PO DAILY 08/11/18 Magnesium 400 mg PO BID 08/11/18 Potassium Chloride 20 meq DAILY 08/11/18 Sennosides/Docusate Sodium 2 each PO DAILY 08/11/18 [Senna-S Laxative Tablet] traZODone [Desyrel] 25 mg PO QHS 08/11/18 Surgical History: - - Laminectomy 2006, 2007. History of INTERN BRAND shunt for subarachnoid hemorrhage which secondarily got infected with E. coli. 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 Psychiatric History: No pertinent psych hx, - - he is very angry now and his attributes this to the steroids....she states it makes him mean. 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 Lives: Longterm Smoking Status: Never smoker - *Family History Maternal History Items: - - , depression Paternal History Items: - - Offspring History Items: - - 2 children, 4 grand children, 1 great grandchild, all in good health Review of Systems Neurological: Reports: Confusion Unable to obtain accurate/complete ROS d/t: confusion Patient Problems: Active and Suspected Problems (Last Reviewed 08/13/18 @ 10:19 by Fernando Patterson MD) Acute encephalopathy (Acute) - Physical Exam General: Alert, Cooperative, No apparent distress Neurological: Cranial nerves II-XII grossly intact, - - ble flaccid paralysis. ue normal Vital Signs Temp Pulse Resp BP Pulse Ox 36.6 C 66 16 168/66 H 94 08/13/18 08:10 08/13/18 08:10 08/13/18 08:10 08/13/18 08:10 08/13/18 08:10 Oxygen Flow Rate (L/min) 2 Oxygen Delivery Method Nasal Cannula Weight: 80.7 kg Body Mass Index (BMI) 25.5 Intake and Output for Last 24 Hours 08/11/18 08/12/18 08/13/18 23:59 23:59 23:59 Intake Total 2516 / 2516 918.9 / 918.9 84 / 84 Output Total 1999 1325 / 1325 900 / 900 Balance 516 / 516 -406.1 / -406.1 -816 / -816 Microbiology Past 72 Hours 08/11/18 13:43 Gram Stain - Final Wound - Heel Right Wound Culture - Preliminary GNR Poss Pseudomonas sp Laboratory Tests Past 24 Hrs 08/12/18 08/13/18 08/13/18 22:30 05:10 05:10 WBC 5.1 RBC 3.09 L Hgb 9.9 L Hct 31.2 L MCV 101.0 H MCH 32.0 MCHC 31.7 L RDW 13.0 RDW Differential 46.5 H Plt Count 164 MPV 9.8 Sodium 145 Potassium 3.7 Chloride 109 H Carbon Dioxide 30.0 Anion Gap 6 BUN 14 Creatinine 0.63 L Estim Creat Clear Calc 60.83 Est GFR (MDRD) Af Amer 158 Est GFR (MDRD) Non-Af 131 BUN/Creatinine Ratio 22.3 H Glucose 89 Calcium 8.5 Vancomycin Trough 6.6 POC Glucose 08/13/18 08/12/18 08/12/18 06:34 22:36 17:24 POC Glucose 94 117 H 102 08/12/18 11:27 POC Glucose 108 Assessment/Plan All Active Problems (Last Reviewed 08/13/18 @ 10:19 by Fernando Patterson MD) Acute encephalopathy (Acute) Non-STEMI (non-ST elevated myocardial infarction) (Acute) Abnormal EKG (Acute) encephalopathy, appears to be metabolic, superimposed on 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 history of sz, not on AEDs. * eeg * ammonia * metabolic workup
[2018-08-13 11:35] LABS: Bedside Glucose 223 mg/dL (70-110)
--- NOTE | 2018-08-13 12:53 | CON.PCM_ITS ---
Problem List (1) Osteomyelitis Status: Acute Reason for Consult: osteo Consulted by: Dr. Huang History of Present Illness: The patient is a 82 year old M with paraplegia due to transverse myelitis and h/ o nocardia infection on [facility] bactrim 2ndary prophylaxis who presented 08/11 with 3-4 days of confusion, fever, chills, unusual movements. A week ago noticed cloudy/foul smelling urine with straight cath. He reuses catheters at home, soaks them in vinegar in between use. Has been getting frequent uti. Admitted here in June, given cipro, Ucx with GNR. Reports both heels became red/bruised that admit. Had citrobacter (+) ucx a week after discharge, then grew enterococcus when checked 08/05. He was started on macrobid at [facility] but worsened soon after starting. Taken to ED, given levaquin and vanc, now on meropenem. 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 Podiatry following. Fever improved, mental status improved. Ucx with citrobacter. Wound cx with burkholderia. Full ROS Performed and neg except as noted above. 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 Allergies/Adverse Reactions: Allergies Cephalosporins Allergy (Intermediate, Verified 08/10/18 20:29) Laryngospasms Penicillins Allergy (Intermediate, Verified 08/10/18 20:29) Rash IVP DYE Allergy (Uncoded 07/05/18 10:04) Rash Home Medications: Ambulatory Orders Medication Instructions Recorded Multivitamins,Ther W-Minerals 1 tab PO DAILY@1700 #30 tab 09/18/14 [Multivitamin With Minerals] Pyridoxine HCl [Vitamin B-6] 100 mg PO DAILY@1700 #30 tab 10/23/14 Losartan Potassium [Cozaar] 12.5 mg PO DAILY@2200 01/12/16 Riboflavin [Vitamin B2] 300 mg PO DAILY@1700 11/10/16 Ascorbic Acid [Vitamin C] 1,000 mg PO DAILY 07/05/18 Escitalopram Oxalate [Lexapro] 10 mg PO DAILY 07/05/18 Gabapentin [Neurontin] 600 mg PO 4X/DAY 07/05/18 [place] Carbonate 150 mg PO TID 07/05/18 Atorvastatin Calcium [Lipitor] 40 mg PO QHS #90 tab 07/09/18 Carvedilol [Coreg (Beta Krissy)] 6.25 mg PO BID #90 tab 07/09/18 Clopidogrel Bisulfate [Plavix] 75 mg PO DAILY #90 tab 07/09/18 Isosorbide Mononitrate 10 mg PO QHS #90 tab 07/09/18 Morphine Sulfate [Morphine Sulfate 30 mg PO BID 2 Days #4 tablet.er 07/09/18 ER] baclofen 10 mg tablet 5 mg PO BID PRN tab 07/27/18 Hydrocodone/Acetaminophen 10 - 325 mg PO DAILY 08/10/18 [Hydrocodone-Acetamin 10-325 mg] Nitrofurantoin Macrocrystals 100 mg PO BID 08/10/18 [Macrobid] Furosemide [Lasix] 40 mg PO DAILY 08/11/18 Magnesium 400 mg PO BID 08/11/18 Potassium Chloride 20 meq DAILY 08/11/18 Sennosides/Docusate Sodium 2 each PO DAILY 08/11/18 [Senna-S Laxative Tablet] traZODone [Desyrel] 25 mg PO QHS 08/11/18 - Social History SMOKING STATUS:: Never smoker Vital Signs Temp Pulse Resp BP Pulse Ox 97.9 F 70 16 168/66 H 94 08/13/18 08:10 08/13/18 11:18 08/13/18 08:10 08/13/18 08:10 08/13/18 08:10 Oxygen Flow Rate (L/min) 2 Oxygen Delivery Method Nasal Cannula Weight: 80.7 kg Body Mass Index (BMI) 25.5 Microbiology Past 72 Hours 08/11/18 13:43 Gram Stain - Final Wound - Heel Right Wound Culture - Final Burkholderia cepacia Laboratory Tests Past 24 Hrs 08/12/18 08/13/18 08/13/18 22:30 05:10 05:10 WBC 5.1 RBC 3.09 L Hgb 9.9 L Hct 31.2 L MCV 101.0 H MCH 32.0 MCHC 31.7 L RDW 13.0 RDW Differential 46.5 H Plt Count 164 MPV 9.8 Sodium 145 Potassium 3.7 Chloride 109 H Carbon Dioxide 30.0 Anion Gap 6 BUN 14 Creatinine 0.63 L Estim Creat Clear Calc 60.83 Est GFR (MDRD) Af Amer 158 Est GFR (MDRD) Non-Af 131 BUN/Creatinine Ratio 22.3 H Glucose 89 Calcium 8.5 Ammonia Vancomycin Trough 6.6 08/13/18 10:57 WBC RBC Hgb Hct MCV MCH MCHC RDW RDW Differential Plt Count MPV Sodium Potassium Chloride Carbon Dioxide Anion Gap BUN Creatinine Estim Creat Clear Calc Est GFR (MDRD) Af Amer Est GFR (MDRD) Non-Af BUN/Creatinine Ratio Glucose Calcium Ammonia 31.0 Vancomycin Trough - Other Studies Radiology: [] reviewed Other Studies: [] Route of nutrition/ use of supplements: [] Nutritional Intake: [] IV Site: [] Wheeler Catheter: [] - Physical Exam General: Alert, Oriented x3, Cooperative, No apparent distress HEENT: Atraumatic, PERRLA, EOMI Neck: Supple, No Nodes Lungs: Clear to auscultation, Normal air movement Cardiovascular: Regular rate, Regular Rhythm, Murmur Abdomen: Soft, Non Tender, Non-Distended Extremities: No edema Skin: Ulcer/ Wound - bilat heels IV Site: Peripheral, without redness Musculoskeletal: No Tenderness to Palpation of Joints or Extremities Neurological: Cranial nerves II-XII grossly intact, - - paraplegia - Assessment/Plan Antibiotics: [] Assessment/Plan: [] Active and Suspected Problems (Last Reviewed 08/13/18 @ 10:19 by Fernando Patterson MD) Acute encephalopathy (Acute) Citrobacter pyelonephritis - on meropenem. Reports rash/hives with PCN. Not sure about cephalosporins. Improved. Fever resolved. Bilateral heel osteo - Dr. Quintana following. Wound cx with burkholderia. Will need 6 week course of abx, may be able to use PO abx given susceptibility to cipro. h/o nocardia - bactrim currently on hold, may need to restart Will follow, thank you.
--- NOTE | 2018-08-13 13:03 | PCM.PROGNOTE ---
<Nadira Goldberg - Last Filed: 08/13/18 13:16> Patient Problems: Active and Suspected Problems (Last Reviewed 08/13/18 @ 10:19 by Fernando Patterson MD) Acute encephalopathy (Acute) Osteomyelitis (Acute) Subjective: Patient seen and examined. at bedside. Patient reports he slept well last night with any involuntary movements. - Physical Exam General: Alert, Oriented x3, Cooperative, No apparent distress HEENT: Atraumatic, PERRLA, EOMI, Normocephalic Neck: Supple, No JVD, Negative Carotid Bruits Lungs: Clear to auscultation, Diminished Cardiovascular: Regular rate, Regular Rhythm, Normal S1, Normal S2, No murmurs Abdomen: Bowel Sounds Present, Soft, Non Tender, Non-Distended Extremities: No clubbing, No cyanosis, No edema, Capillary Refill Less than 3 Seconds Skin: No rashes, No breakdown, - - Stage II coccyx decubital ulcer, bilateral heel pressure wounds. Both present on admission. Musculoskeletal: No Tenderness to Palpation of Joints or Extremities Neurological: Cranial nerves II-XII grossly intact, Neuro grossly intact, - - Chronic paraplegia. Psych/Mental Status: Normal Affect, Appropriate Vital Signs Temp Pulse Resp BP Pulse Ox 97.9 F 70 16 168/66 H 94 08/13/18 08:10 08/13/18 11:18 08/13/18 08:10 08/13/18 08:10 08/13/18 08:10 Oxygen Flow Rate (L/min) 2 Oxygen Delivery Method Nasal Cannula Weight: 177 lb 14.609 oz Body Mass Index (BMI) 25.5 Intake and Output for Last 24 Hours 08/11/18 08/12/18 08/13/18 23:59 23:59 23:59 Intake Total 2516 / 2516 918.9 / 918.9 84 / 84 Output Total 1999 1325 / 1325 900 / 900 Balance 516 / 516 -406.1 / -406.1 -816 / -816 Microbiology Past 72 Hours 08/11/18 13:43 Gram Stain - Final Wound - Heel Right Wound Culture - Final Burkholderia cepacia Laboratory Tests Past 24 Hrs 08/12/18 08/13/18 08/13/18 22:30 05:10 05:10 WBC 5.1 RBC 3.09 L Hgb 9.9 L Hct 31.2 L MCV 101.0 H MCH 32.0 MCHC 31.7 L RDW 13.0 RDW Differential 46.5 H Plt Count 164 MPV 9.8 Sodium 145 Potassium 3.7 Chloride 109 H Carbon Dioxide 30.0 Anion Gap 6 BUN 14 Creatinine 0.63 L Estim Creat Clear Calc 60.83 Est GFR (MDRD) Af Amer 158 Est GFR (MDRD) Non-Af 131 BUN/Creatinine Ratio 22.3 H Glucose 89 Calcium 8.5 Ammonia Vancomycin Trough 6.6 08/13/18 10:57 WBC RBC Hgb Hct MCV MCH MCHC RDW RDW Differential Plt Count MPV Sodium Potassium Chloride Carbon Dioxide Anion Gap BUN Creatinine Estim Creat Clear Calc Est GFR (MDRD) Af Amer Est GFR (MDRD) Non-Af BUN/Creatinine Ratio Glucose Calcium Ammonia 31.0 Vancomycin Trough POC Glucose 08/13/18 08/13/18 08/12/18 11:33 06:34 22:36 POC Glucose 223 H 94 117 H 08/12/18 08/12/18 17:24 11:27 POC Glucose 102 108 Medical Necessity - Tobacco Use Smoking Status: Never smoker Assessment/Plan All Active Problems (Last Reviewed 08/13/18 @ 10:19 by Fernando Patterson MD) Acute encephalopathy (Acute) Osteomyelitis (Acute) Non-STEMI (non-ST elevated myocardial infarction) (Acute) Abnormal EKG (Acute) 1. Acute encephalopathy suspected secondary to acute cystitis-mental status at baseline. Patient with history of recurrent cystitis secondary to chronic urinary retention with [id number]-gd meropenem and vancomycin given complicated history of urine cultures, positive for enterococcus and Pseudomonas with allergy to penicillins and cephalosporins. Wheeler in place. Urine culture positive for Citrobacter. Blood culture shows no growth. ID following. Continue meropenem. DC vanc, MRSA PCR negative. 2. Stage II decubitus coccyx ulcer/bilateral heel osteomyelitis-wounds present on admission. Podiatry consulted. Wound RN consult. Frequent position changes. MRI of bilateral lower extremities ordered to assess bilateral heel pressure ulcers. Wound culture right heel shows burkholderia. Noninvasive lower extremity arterial study ordered. Continue dressing changes as ordered: Santyl, gauze, offloading foam boots. ID consulted. Will need 6 week course of antibiotics. May be able to use cipro PO. Continue current abx therapy as noted above. 3. Involuntary movements-reported to occur for a few hours last night. Neurology consulted. Patient is reported to have history of seizures and is not on AEDs. Obtain EEG. Patient reports history of spastic movements. Previously on baclofen which he states was note effective. Try flexeril 10mg TID PRN. Recommend outpatient follow up with neurology at discharge. Patient previously followed with Dr. Basilio. Would like to transfer care to Dr. Patterson at discharge. 4. History of NSTEMI-continue Plavix, statin, Coreg, losartan. Denies chest pain. Follows as outpatient with [facility]. 5. Type 2 diabetes mellitus-home metformin regimen continued. 6. 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 PT/OT. 7. 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 9. PVD-continue statin, Plavix. 10. Hypertension-stable, continue home carvedilol, losartan regimen. 11. Depression-continue home Lexapro regimen. DVT prophylaxis-Lovenox subcu. This patient was seen by EYAD Stevens under the supervision of Dr. Huang. <Ashly Huang - Last Filed: 08/13/18 17:58> - Physical Exam Vital Signs Temp Pulse Resp BP Pulse Ox 97.4 F L 57 L 16 139/60 H 97 08/13/18 17:31 08/13/18 17:31 08/13/18 17:31 08/13/18 17:31 08/13/18 17:31 Oxygen Flow Rate (L/min) 2 Oxygen Delivery Method Room Air Weight: 80.7 kg Body Mass Index (BMI) 25.5 Intake and Output for Last 24 Hours 08/11/18 08/12/18 08/13/18 23:59 23:59 23:59 Intake Total 2516 / 2516 918.9 / 918.9 1248 / 1248 Output Total 1999 1325 / 1325 1475 / 1475 Balance 516 / 516 -406.1 / -406.1 -227 / -227 Microbiology Past 72 Hours 08/11/18 13:43 Gram Stain - Final Wound - Heel Right Wound Culture - Final Burkholderia cepacia Anaerobic Culture - Preliminary Checking for anaerobes, further studies to follow. Laboratory Tests Past 24 Hrs 08/12/18 08/13/18 08/13/18 22:30 05:10 05:10 WBC 5.1 RBC 3.09 L Hgb 9.9 L Hct 31.2 L MCV 101.0 H MCH 32.0 MCHC 31.7 L RDW 13.0 RDW Differential 46.5 H Plt Count 164 MPV 9.8 Sodium 145 Potassium 3.7 Chloride 109 H Carbon Dioxide 30.0 Anion Gap 6 BUN 14 Creatinine 0.63 L Estim Creat Clear Calc 60.83 Est GFR (MDRD) Af Amer 158 Est GFR (MDRD) Non-Af 131 BUN/Creatinine Ratio 22.3 H Glucose 89 Calcium 8.5 Magnesium Ammonia Vancomycin Trough 6.6 08/13/18 08/13/18 05:10 10:57 WBC RBC Hgb Hct MCV MCH MCHC RDW RDW Differential Plt Count MPV Sodium Potassium Chloride Carbon Dioxide Anion Gap BUN Creatinine Estim Creat Clear Calc Est GFR (MDRD) Af Amer Est GFR (MDRD) Non-Af BUN/Creatinine Ratio Glucose Calcium Magnesium 2.2 Ammonia 31.0 Vancomycin Trough POC Glucose 08/13/18 08/13/18 08/12/18 11:33 06:34 22:36 POC Glucose 223 H 94 117 H 08/12/18 17:24 POC Glucose 102 Assessment/Plan Patient was seen and examined independently. I agree with the above interval history, physical exam and assessment and plan as documented by DESKTOP ARCHITECT, Nadira Goldberg. Met with and patient at the bedside. Findings on MRI of both feet reviewed with patient - bilateral He generally feels improved. Denies fever, chills, SOB, chest pain. Vitals are stable; spo2 100% on room air. Patient is alert, oriented x 3, at his baseline. Both feet have been dressed - pictures from wound nurse seen- multiple ischemic ulcers Will continue on Meropenem, cultures have been negative, wound cultures growing Burkholderia and urine cultures growing Citrobacter ID following will await on surgical recommendations from podiatry. Code Visit Inpatient E&M: 43057 Subs Hosp L2
--- NOTE | 2018-08-13 13:16 | PN_ITS ---
<Nadira Goldberg - Last Filed: 08/13/18 13:16> Patient Problems: Active and Suspected Problems (Last Reviewed 08/13/18 @ 10:19 by Fernando Patterson MD) Acute encephalopathy (Acute) Osteomyelitis (Acute) Subjective: Patient seen and examined. at bedside. Patient reports he slept well last night with any involuntary movements. - Physical Exam General: Alert, Oriented x3, Cooperative, No apparent distress HEENT: Atraumatic, PERRLA, EOMI, Normocephalic Neck: Supple, No JVD, Negative Carotid Bruits Lungs: Clear to auscultation, Diminished Cardiovascular: Regular rate, Regular Rhythm, Normal S1, Normal S2, No murmurs Abdomen: Bowel Sounds Present, Soft, Non Tender, Non-Distended Extremities: No clubbing, No cyanosis, No edema, Capillary Refill Less than 3 Seconds Skin: No rashes, No breakdown, - - Stage II coccyx decubital ulcer, bilateral heel pressure wounds. Both present on admission. Musculoskeletal: No Tenderness to Palpation of Joints or Extremities Neurological: Cranial nerves II-XII grossly intact, Neuro grossly intact, - - Chronic paraplegia. Psych/Mental Status: Normal Affect, Appropriate Vital Signs Temp Pulse Resp BP Pulse Ox 97.9 F 70 16 168/66 H 94 08/13/18 08:10 08/13/18 11:18 08/13/18 08:10 08/13/18 08:10 08/13/18 08:10 Oxygen Flow Rate (L/min) 2 Oxygen Delivery Method Nasal Cannula Weight: 177 lb 14.609 oz Body Mass Index (BMI) 25.5 Intake and Output for Last 24 Hours 08/11/18 08/12/18 08/13/18 23:59 23:59 23:59 Intake Total 2516 / 2516 918.9 / 918.9 84 / 84 Output Total 1999 1325 / 1325 900 / 900 Balance 516 / 516 -406.1 / -406.1 -816 / -816 Microbiology Past 72 Hours 08/11/18 13:43 Gram Stain - Final Wound - Heel Right Wound Culture - Final Burkholderia cepacia Laboratory Tests Past 24 Hrs 08/12/18 08/13/18 08/13/18 22:30 05:10 05:10 WBC 5.1 RBC 3.09 L Hgb 9.9 L Hct 31.2 L MCV 101.0 H MCH 32.0 MCHC 31.7 L RDW 13.0 RDW Differential 46.5 H Plt Count 164 MPV 9.8 Sodium 145 Potassium 3.7 Chloride 109 H Carbon Dioxide 30.0 Anion Gap 6 BUN 14 Creatinine 0.63 L Estim Creat Clear Calc 60.83 Est GFR (MDRD) Af Amer 158 Est GFR (MDRD) Non-Af 131 BUN/Creatinine Ratio 22.3 H Glucose 89 Calcium 8.5 Ammonia Vancomycin Trough 6.6 08/13/18 10:57 WBC RBC Hgb Hct MCV MCH MCHC RDW RDW Differential Plt Count MPV Sodium Potassium Chloride Carbon Dioxide Anion Gap BUN Creatinine Estim Creat Clear Calc Est GFR (MDRD) Af Amer Est GFR (MDRD) Non-Af BUN/Creatinine Ratio Glucose Calcium Ammonia 31.0 Vancomycin Trough POC Glucose 08/13/18 08/13/18 08/12/18 11:33 06:34 22:36 POC Glucose 223 H 94 117 H 08/12/18 08/12/18 17:24 11:27 POC Glucose 102 108 Medical Necessity - Tobacco Use Smoking Status: Never smoker Assessment/Plan All Active Problems (Last Reviewed 08/13/18 @ 10:19 by Fernando Patterson MD) Acute encephalopathy (Acute) Osteomyelitis (Acute) Non-STEMI (non-ST elevated myocardial infarction) (Acute) Abnormal EKG (Acute) 1. Acute encephalopathy suspected secondary to acute cystitis-mental status at baseline. Patient with history of recurrent cystitis secondary to chronic urinary retention with [id number] meropenem and vancomycin given complicated history of urine cultures, positive for enterococcus and Pseudomonas with allergy to penicillins and cephalosporins. Wheeler in place. Urine culture positive for Citrobacter. Blood culture shows no growth. ID following. Continue meropenem. DC vanc, MRSA PCR negative. 2. Stage II decubitus coccyx ulcer/bilateral heel osteomyelitis-wounds present on admission. Podiatry consulted. Wound RN consult. Frequent position changes. MRI of bilateral lower extremities ordered to assess bilateral heel pressure ulcers. Wound culture right heel shows burkholderia. Noninvasive lower extremity arterial study ordered. Continue dressing changes as ordered: Santyl, gauze, offloading foam boots. ID consulted. Will need 6 week course of antibiotics. May be able to use cipro PO. Continue current abx therapy as noted above. 3. Involuntary movements-reported to occur for a few hours last night. Neurology consulted. Patient is reported to have history of seizures and is not on AEDs. Obtain EEG. Patient reports history of spastic movements. Previously on baclofen which he states was note effective. Try flexeril 10mg TID PRN. Recommend outpatient follow up with neurology at discharge. Patient previously followed with Dr. Basilio. Would like to transfer care to Dr. Patterson at discharge. 4. History of NSTEMI-continue Plavix, statin, Coreg, losartan. Denies chest pain. Follows as outpatient with [facility]. 5. Type 2 diabetes mellitus-home metformin regimen continued. 6. 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 PT/OT. 7. 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 9. PVD-continue statin, Plavix. 10. Hypertension-stable, continue home carvedilol, losartan regimen. 11. Depression-continue home Lexapro regimen. DVT prophylaxis-Lovenox subcu. This patient was seen by EYAD Stevens under the supervision of Dr. Huang. <Ashly Huang - Last Filed: 08/13/18 17:58> - Physical Exam Vital Signs Temp Pulse Resp BP Pulse Ox 97.4 F L 57 L 16 139/60 H 97 08/13/18 17:31 08/13/18 17:31 08/13/18 17:31 08/13/18 17:31 08/13/18 17:31 Oxygen Flow Rate (L/min) 2 Oxygen Delivery Method Room Air Weight: 80.7 kg Body Mass Index (BMI) 25.5 Intake and Output for Last 24 Hours 08/11/18 08/12/18 08/13/18 23:59 23:59 23:59 Intake Total 2516 / 2516 918.9 / 918.9 1248 / 1248 Output Total 1999 1325 / 1325 1475 / 1475 Balance 516 / 516 -406.1 / -406.1 -227 / -227 Microbiology Past 72 Hours 08/11/18 13:43 Gram Stain - Final Wound - Heel Right Wound Culture - Final Burkholderia cepacia Anaerobic Culture - Preliminary Checking for anaerobes, further studies to follow. Laboratory Tests Past 24 Hrs 08/12/18 08/13/18 08/13/18 22:30 05:10 05:10 WBC 5.1 RBC 3.09 L Hgb 9.9 L Hct 31.2 L MCV 101.0 H MCH 32.0 MCHC 31.7 L RDW 13.0 RDW Differential 46.5 H Plt Count 164 MPV 9.8 Sodium 145 Potassium 3.7 Chloride 109 H Carbon Dioxide 30.0 Anion Gap 6 BUN 14 Creatinine 0.63 L Estim Creat Clear Calc 60.83 Est GFR (MDRD) Af Amer 158 Est GFR (MDRD) Non-Af 131 BUN/Creatinine Ratio 22.3 H Glucose 89 Calcium 8.5 Magnesium Ammonia Vancomycin Trough 6.6 08/13/18 08/13/18 05:10 10:57 WBC RBC Hgb Hct MCV MCH MCHC RDW RDW Differential Plt Count MPV Sodium Potassium Chloride Carbon Dioxide Anion Gap BUN Creatinine Estim Creat Clear Calc Est GFR (MDRD) Af Amer Est GFR (MDRD) Non-Af BUN/Creatinine Ratio Glucose Calcium Magnesium 2.2 Ammonia 31.0 Vancomycin Trough POC Glucose 08/13/18 08/13/18 08/12/18 11:33 06:34 22:36 POC Glucose 223 H 94 117 H 08/12/18 17:24 POC Glucose 102 Assessment/Plan Patient was seen and examined independently. I agree with the above interval history, physical exam and assessment and plan as documented by MAGNETIC RESONANCE IMAGING DIRECTOR, Nadira Goldberg. Met with and patient at the bedside. Findings on MRI of both feet reviewed with patient - bilateral He generally feels improved. Denies fever, chills, SOB, chest pain. Vitals are stable; spo2 100% on room air. Patient is alert, oriented x 3, at his baseline. Both feet have been dressed - pictures from wound nurse seen- multiple ischemic ulcers Will continue on Meropenem, cultures have been negative, wound cultures growing Burkholderia and urine cultures growing Citrobacter ID following will await on surgical recommendations from podiatry. Code Visit Inpatient E&M: 16150 Subs Hosp L2
[2018-08-13 13:51] LABS: Magnesium 2.2 mg/dL (1.6-2.6)
[2018-08-13] MEDS: Collagenase 30gm Tube 1 APPLIC TOPICAL (14:30)
--- NOTE | 2018-08-13 15:49 | NURSING ---
wound photo: left anterior lower leg/ankle
--- NOTE | 2018-08-13 15:50 | NURSING ---
wound photo: left lateral lower leg
--- NOTE | 2018-08-13 15:52 | NURSING ---
wound photo: left heel
--- NOTE | 2018-08-13 15:53 | NURSING ---
wound photo: right lateral ankle and heel
[2018-08-13] MEDS: Multivitamins,Ther W-Minerals Tablet 1 TABLET PO (16:32)
[2018-08-13] MEDS: Tamsulosin HCl 0.4 MG Capsule PO (16:33)
--- NOTE | 2018-08-13 17:09 | NURSING ---
PT REFUSED ACCUCHECK AT THIS TIME SAYING IM NOT A DIABETIC. I WAS ONLY TAKING METFORMIN FOR STEROIDS AND IM NOT ON THEM NOW. DR. TIMMONS IN TO TALK REGARDING BLOOD FLOW STUDIES AND MRI OF FEET. PT REFUSING MEDS HERE AND THERE SAYING NOT TAKING THOSE STUPID VITAMINS. IN AT BEDSIDE
[2018-08-13] MEDS: Gabapentin 600 MG Tablet PO (17:18)
--- NOTE | 2018-08-13 18:00 | PCM.PROGNOTE ---
Patient Problems: Active and Suspected Problems (Last Reviewed 08/13/18 @ 10:19 by Fernando Patterson MD) Acute encephalopathy (Acute) Osteomyelitis (Acute) Subjective: Patient seen today for follow up bilateral pressure ulcers on heels/hindfoot. Patient's at bedside. He relates he is doing better today. No new complaints. Has been evaluated by Infectious disease, also had noninvasive lower extremity arterial studies done today. No complaints of fever, chills, nausea or vomiting. - Physical Exam General: Alert, Oriented x3, Cooperative, No apparent distress Extremities: Diminished Peripheral Pulses, - - Dry eschar to the posterior heels bilateral, as well as to the lateral ankle on the right and posterior lateral distal proximal ankle on the left, eschars are dry and intact, margins intact and viable in appearance, no new ulcers or blisters. There is noted erythema to the lateral right ankle and heel which is improved, slight to the left foot or ankle, there is no streaking, no visible abscess, no maloder, no fluctuance, no crepitus bilateral foot/ankle. Skin thin and atrophic bilateral, no hair is seen bilateral foot/ankle. Vital Signs Temp Pulse Resp BP Pulse Ox 97.4 F L 57 L 16 139/60 H 97 08/13/18 17:31 08/13/18 17:31 08/13/18 17:31 08/13/18 17:31 08/13/18 17:31 Oxygen Flow Rate (L/min) 2 Oxygen Delivery Method Room Air Weight: 80.7 kg Body Mass Index (BMI) 25.5 Intake and Output for Last 24 Hours 08/11/18 08/12/18 08/13/18 23:59 23:59 23:59 Intake Total 2516 / 2516 918.9 / 918.9 1248 / 1248 Output Total 1999 1325 / 1325 1475 / 1475 Balance 516 / 516 -406.1 / -406.1 -227 / -227 Microbiology Past 72 Hours 08/11/18 13:43 Gram Stain - Final Wound - Heel Right Wound Culture - Final Burkholderia cepacia Anaerobic Culture - Preliminary Checking for anaerobes, further studies to follow. Laboratory Tests Past 24 Hrs 08/12/18 08/13/18 08/13/18 22:30 05:10 05:10 WBC 5.1 RBC 3.09 L Hgb 9.9 L Hct 31.2 L MCV 101.0 H MCH 32.0 MCHC 31.7 L RDW 13.0 RDW Differential 46.5 H Plt Count 164 MPV 9.8 Sodium 145 Potassium 3.7 Chloride 109 H Carbon Dioxide 30.0 Anion Gap 6 BUN 14 Creatinine 0.63 L Estim Creat Clear Calc 60.83 Est GFR (MDRD) Af Amer 158 Est GFR (MDRD) Non-Af 131 BUN/Creatinine Ratio 22.3 H Glucose 89 Calcium 8.5 Magnesium Ammonia Vancomycin Trough 6.6 08/13/18 08/13/18 05:10 10:57 WBC RBC Hgb Hct MCV MCH MCHC RDW RDW Differential Plt Count MPV Sodium Potassium Chloride Carbon Dioxide Anion Gap BUN Creatinine Estim Creat Clear Calc Est GFR (MDRD) Af Amer Est GFR (MDRD) Non-Af BUN/Creatinine Ratio Glucose Calcium Magnesium 2.2 Ammonia 31.0 Vancomycin Trough POC Glucose 08/13/18 08/13/18 08/12/18 11:33 06:34 22:36 POC Glucose 223 H 94 117 H Medical Necessity - Tobacco Use Smoking Status: Never smoker Assessment/Plan All Active Problems (Last Reviewed 08/13/18 @ 10:19 by Fernando Patterson MD) Acute encephalopathy (Acute) Osteomyelitis (Acute) Non-STEMI (non-ST elevated myocardial infarction) (Acute) Abnormal EKG (Acute) Decubitus pressure ulcerations bilateral heel, lateral right ankle and lateral distal left leg w/ osteomyelitis Cellulitis right heel/lateral ankle Peripheral arterial disease bilateral lower extremity Reviewed diagnostic data. MRIs c/w osteomyelitis to the calcaneus posterior aspect bilateral and left lateral malleolus. Continue with IV antibiotics, Infectious disease following. Noninvasive lower extremity arterial study reviewed- significant PAD present - Dr. Lagos consulted - reviewed with Dr. Lagos who is going to see patient. Dressing changes: Santyl with overlying gauze dressing changes daily. Keep pressure off of wound sites at all times - using offloading foam boots as wells pillows. No weightbearing to heels bilateral. Podiatry will continue to follow.
--- NOTE | 2018-08-13 18:34 | PCM.CONS.GEN ---
Problem List (1) PAD (peripheral artery disease) Status: Chronic Reason for Consult Date of Consultation: 08/13/18 History of Present Illness: The patient is a 82 year old M who presents with peripheral vascular occlusive disease. I have been asked to see this patient tonight by Dr. Vicente Quintana for surgical consultation regarding PAD. A written copy my surgical consult and recommendations will be returned in the medical records. The patient apparently has a repeat hospitalization for chronic urinary tract infection. On recent hospitalization he developed bilateral calcaneal ulcerations. It is pertinent that the patient is paraplegic. As of February 05, 2014 I performed a abdominal pelvic lower extremity arteriogram with left anterior tibial 2 mm and a cross angioplasty. This was performed for a nonhealing left great toe ulceration. The patient has evidence of occluded bilateral anterior tibial arteries. I attempted a recanalization of the left anterior tibial but I failed. I performed a 2 mm x 210 mm Anuradha cross angioplasty of the mid and proximal left anterior tibial. I thought that this might assist me with getting further advancement however I was not able to proceed. Arteriogram at that time showed patent abdominal aorta, iliacs external iliacs and internal iliacs. 50% stenosis of the proximal left renal artery. 50% stenosis of the proximal right common iliac and about 50% stenosis of the left more distal common iliac. Additional note is made of an indwelling trapeze vena cava filter. The left superficial femoral artery was diffusely calcified throughout its entire length. There was 40% stenosis of the left proximal posterior tibial. The left peroneal was very disease. The left anterior tibial occludes within 6 cm. The right lower extremity demonstrates patent right superficial femoral artery but then the tibioperoneal trunk occludes. The right peroneal and posterior tibials are occluded. The right anterior tibial at that point filled the dorsalis pedis. There was a right knee prosthesis occluding some visualization. It is of note that on May 12, 2018 patient had MRI of the right ankle without contrast. Findings consistent with osteomyelitis of the right calcaneus. There is mild edema and possible osteomyelitis of the lateral malleolus. on that same date a left lower extremity MRI was obtained. This is also suggested of osteomyelitis of the calcaneus and lateral malleolus It is of note that the patient has a history of syringomyelia. Apparently previous [facility] neurologist have advised that no additional treatment is possible. He has been paraplegic since 2006. He has Citrobacter point a urinary tract infection and right heel culture demonstrates Burkholderia cepacia In addition he carries a history of a non-ST elevated segment [place]. He apparently has an acutely abnormal EKG. In addition he has a stage II decubitus coccygeal ulceration. Noninvasive bilateral extremity arterial exams have been ordered but by verbal report of distinctly abnormal. The patient also has a history of type 2 diabetes. 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 Medical History: Medical History (Last Reviewed 08/13/18 @ 10:19 by Fernando Patterson MD) Non-STEMI (non-ST elevated myocardial infarction) (Acute) I21.4 HTN (hypertension) (Chronic) I10 PAD (peripheral artery disease) (Chronic) I73.9 Paraplegia (Chronic) G82.20 due to transverse myelitis Allergies Cephalosporins Allergy (Intermediate, Verified 08/10/18 20:29) Laryngospasms Penicillins Allergy (Intermediate, Verified 08/10/18 20:29) Rash IVP DYE Allergy (Uncoded 07/05/18 10:04) Rash Home Medications: Ambulatory Orders Medication Instructions Recorded Multivitamins,Ther W-Minerals 1 tab PO DAILY@1700 #30 tab 09/18/14 [Multivitamin With Minerals] Pyridoxine HCl [Vitamin B-6] 100 mg PO DAILY@1700 #30 tab 09/18/14 Losartan Potassium [Cozaar] 12.5 mg PO DAILY@2200 01/12/16 Riboflavin [Vitamin B2] 300 mg PO DAILY@1700 11/10/16 Ascorbic Acid [Vitamin C] 1,000 mg PO DAILY 07/05/18 Escitalopram Oxalate [Lexapro] 10 mg PO DAILY 07/05/18 Gabapentin [Neurontin] 600 mg PO 4X/DAY 07/05/18 [place] Carbonate 150 mg PO TID 07/05/18 Atorvastatin Calcium [Lipitor] 40 mg PO QHS #90 tab 07/09/18 Carvedilol [Coreg (Beta Krissy)] 6.25 mg PO BID #90 tab 07/09/18 Clopidogrel Bisulfate [Plavix] 75 mg PO DAILY #90 tab 07/09/18 Isosorbide Mononitrate 10 mg PO QHS #90 tab 07/09/18 Morphine Sulfate [Morphine Sulfate 30 mg PO BID 2 Days #4 tablet.er 07/09/18 ER] baclofen 10 mg tablet 5 mg PO BID PRN tab 07/27/18 Hydrocodone/Acetaminophen 10 - 325 mg PO DAILY 08/10/18 [Hydrocodone-Acetamin 10-325 mg] Nitrofurantoin Macrocrystals 100 mg PO BID 08/10/18 [Macrobid] Furosemide [Lasix] 40 mg PO DAILY 08/11/18 Magnesium 400 mg PO BID 08/11/18 Potassium Chloride 20 meq DAILY 08/11/18 Sennosides/Docusate Sodium 2 each PO DAILY 08/11/18 [Senna-S Laxative Tablet] traZODone [Desyrel] 25 mg PO QHS 08/11/18 Surgical History: - - Laminectomy 2006, 2007. History of BATTER DEPOSITOR shunt for subarachnoid hemorrhage which secondarily got infected with E. coli. 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 Psychiatric History: No pertinent psych hx, - - he is very angry now and his attributes this to the steroids....she states it makes him mean. 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 Lives: [facility] Smoking Status: Never smoker - *Family History Maternal History Items: - - , depression Paternal History Items: - - Offspring History Items: - - 2 children, 4 grand children, 1 great grandchild, all in good health Review of Systems Constitutional: Reports: Malaise Eyes: Denies: Blurred vision Cardiovascular: Denies: Chest Pain Musculoskeletal: Reports: - - Severe right leg spasms Patient Problems: Active and Suspected Problems (Last Reviewed 08/13/18 @ 10:19 by Fernando Patterson MD) Acute encephalopathy (Acute) Osteomyelitis (Acute) - Physical Exam General: Alert Oral: Moist Mucosa Neck: Supple, No JVD, Negative Carotid Bruits Lungs: Clear to auscultation, - - Diminished in bases Cardiovascular: Regular rate, Regular Rhythm, - - Bilateral carotids are 2+. No bruits. Bilateral brachials and radials 2+. Bilateral femorals 2+. Left popliteal 1+. Right popliteal difficult to appreciate. Bilateral DP and PT pulses not palpable Abdomen: Soft, Distended Extremities: - - 2+ bilateral extremity pitting edema Skin: - - Bilateral calcaneal ulcerations with dressings in place Vital Signs Temp Pulse Resp BP Pulse Ox 97.4 F L 57 L 16 139/60 H 97 08/13/18 17:31 08/13/18 17:31 08/13/18 17:31 08/13/18 17:31 08/13/18 17:31 Oxygen Flow Rate (L/min) 2 Oxygen Delivery Method Room Air Weight: 177 lb 14.609 oz Body Mass Index (BMI) 25.5 Intake and Output for Last 24 Hours 08/11/18 08/12/18 08/13/18 23:59 23:59 23:59 Intake Total 2516 / 2516 918.9 / 918.9 1248 / 1248 Output Total 1999 1325 / 1325 1475 / 1475 Balance 516 / 516 -406.1 / -406.1 -227 / -227 Microbiology Past 72 Hours 08/11/18 13:43 Gram Stain - Final Wound - Heel Right Wound Culture - Final Burkholderia cepacia Anaerobic Culture - Preliminary Checking for anaerobes, further studies to follow. Laboratory Tests Past 24 Hrs 08/12/18 08/13/18 08/13/18 22:30 05:10 05:10 WBC 5.1 RBC 3.09 L Hgb 9.9 L Hct 31.2 L MCV 101.0 H MCH 32.0 MCHC 31.7 L RDW 13.0 RDW Differential 46.5 H Plt Count 164 MPV 9.8 Sodium 145 Potassium 3.7 Chloride 109 H Carbon Dioxide 30.0 Anion Gap 6 BUN 14 Creatinine 0.63 L Estim Creat Clear Calc 60.83 Est GFR (MDRD) Af Amer 158 Est GFR (MDRD) Non-Af 131 BUN/Creatinine Ratio 22.3 H Glucose 89 Calcium 8.5 Magnesium Ammonia Vancomycin Trough 6.6 08/13/18 08/13/18 05:10 10:57 WBC RBC Hgb Hct MCV MCH MCHC RDW RDW Differential Plt Count MPV Sodium Potassium Chloride Carbon Dioxide Anion Gap BUN Creatinine Estim Creat Clear Calc Est GFR (MDRD) Af Amer Est GFR (MDRD) Non-Af BUN/Creatinine Ratio Glucose Calcium Magnesium 2.2 Ammonia 31.0 Vancomycin Trough POC Glucose 08/13/18 08/13/18 08/12/18 11:33 06:34 22:36 POC Glucose 223 H 94 117 H Assessment/Plan All Active Problems (Last Reviewed 08/13/18 @ 10:19 by Fernando Patterson MD) Acute encephalopathy (Acute) Osteomyelitis (Acute) Non-STEMI (non-ST elevated myocardial infarction) (Acute) Abnormal EKG (Acute) 82-year-old gentleman who is non-ambulatory, paraplegic, he has developed osteomyelitis bilateral calcaneus in addition to a pressure decubitus wound. He is previously in 2013 had a failed endovascular attempt at revascularization of his left lower extremity. Unfortunately his lower extremities are no longer of use and provide him increased risk secondary to ongoing infection. Based upon the patient's presentation if it appeared to be unlikely that he will be able to resolve these decubitus ulcerations particularly secondary to his lack of mobility. I am not recommending at this point further vascular attempts. I have suggested to the patient that he may indeed be a candidate for major amputation of bilateral lower extremities. The patient clearly is not in favor of this at this time. I have also discussed this recommendation with . Patient will consider his treatment options. The patient clearly is at increased operative risk secondary to his NSTEMI and additional medical comorbidities. Would consider possible plastics referral, or orthopedic referral or tertiary referral if the patient would want to consider major amputation. I appreciate the opportunity of assisting with surgical care. Jose Lagos M.D., F.A.C.S.
--- NOTE | 2018-08-13 19:05 | LEAS ---
Arterial Study - Arterial Study Arterial Study: Bilateral lower extremity noninvasive arterial exam at rest Patient with bilateral calcaneal ulcerations and osteomyelitis and paraplegia Right lower extremity The right low thigh index is 1.58. No additional large vessel indices can be obtained secondary to artificially elevated systolic pressures consistent with medial calcification of vessel wall. Right digital index is markedly abnormal at 0.27. The right posterior tibial does not demonstrate a waveform. The right dorsalis pedis is monophasic. Volume pulse recordings are diminished at the low thigh calf and they are markedly diminished at the ankle. Digital waveforms are present but depressed. Left lower extremity The left low thigh index is 1.49. Again the left calf PT and DP and disease cannot be obtained secondary to artificially elevated systolic pressure greater than 254. The left digital index is 0.42. The left posterior tibial is biphasic with a dorsalis pedis monophasic Doppler waveform. Volume pulse recordings demonstrate diminished waveforms at the low thigh calf and ankle area and markedly diminished digital waveforms. Impression Findings are consistent with critical ischemia of the right lower extremity. Multi segmental vascular occlusive disease is present. Occlusion of the right posterior tibial is suspected. Diffuse calcification of vessel montejo noted throughout the large vessels. Left lower extremity Findings suggest medial calcification of vessel wall. Ankle-brachial indices could not be obtained. Doppler waveforms are markedly abnormal particularly involving the dorsalis pedis. Findings are consistent with rest pain and multi segmental occlusive disease. Jose Lagos M.D., F.A.C.S.
[2018-08-13] MEDS: Losartan Potassium 25 MG Tablet 12.5 MG PO (22:57)
[2018-08-13] MEDS: traZODone 50 MG Tablet 25 MG PO (22:59)
[2018-08-13] MEDS: Isosorbide Mononitrate 20 MG Tablet 10 MG PO (23:00)
[2018-08-13] MEDS: Atorvastatin Calcium 40 MG Tablet PO (23:02)
[2018-08-13] MEDS: Furosemide 40 MG Tablet PO (23:04)
[2018-08-14] VITALS (12 sets, daily range): BP systolic 114–156; BP diastolic 50–75; PULSE 56–73; RESP 16; TEMP 36.6–37.3; O2SAT 92–94
[2018-08-14 00:31] LABS: Bedside Glucose 160 mg/dL (70-110)
[2018-08-14 07:16] LABS: Bedside Glucose 103 mg/dL (70-110)
[2018-08-14] MEDS: Collagenase 30gm Tube 1 APPLIC TOPICAL (08:32)
--- NOTE | 2018-08-14 09:03 | PN_ITS ---
Patient Problems: Active and Suspected Problems (Last Reviewed 08/13/18 @ 10:19 by Fernando Patterson MD) Acute encephalopathy (Acute) Osteomyelitis (Acute) Subjective: Patient was seen today for follow up on bilateral decubitus heel ulcerations w/ osteomyelitis. He was resting in bed. Patient with significant peripheral arterial disease, Dr. Lagos did see patient yesterday, and does not recommend any further vascular attempts and discussed possible major amputation due to significant arterial disease and patient overlying medical condition including his nonambulatory status. - Physical Exam General: Alert, Oriented x3, Cooperative, No apparent distress Extremities: - - Dry eschar to the posterior heels bilateral, as well as to the lateral ankle on the right and posterior lateral distal proximal ankle on the left, eschars are dry and intact, margins intact and viable in appearance, intact blister to the posterior lateral heel on the left foot with roof intact w / no evidence of infection, ulceration to the left anterior ankle with mostly fibrotic tissue- down to the subcutaneous tissue layer, margins healthy and viable with no evidence of infection to this ulceration, no new ulcers or blisters. There is noted erythema to the lateral right ankle and heel which is much improved, slight to the left foot or ankle with is also improved as well, there is no streaking, no visible abscess, no maloder, no fluctuance, no crepitus bilateral foot/ankle. Skin thin and atrophic bilateral, no hair is seen bilateral foot/ankle. Musculoskeletal: No Tenderness to Palpation of Joints or Extremities, Arthritic Changes Vital Signs Temp Pulse Resp BP Pulse Ox 97.9 F 56 L 16 155/73 H 92 08/14/18 04:50 08/14/18 06:57 08/14/18 04:50 08/14/18 04:50 08/14/18 07:55 Oxygen Flow Rate (L/min) 2 Oxygen Delivery Method Room Air Weight: 80.7 kg Body Mass Index (BMI) 25.5 Intake and Output for Last 24 Hours 08/12/18 08/13/18 08/14/18 23:59 23:59 23:59 Intake Total 918.9 / 918.9 1488 / 1488 240 / 240 Output Total 1325 / 1325 1725 / 1725 650 / 650 Balance -406.1 / -406.1 -237 / -237 -410 / -410 Microbiology Past 72 Hours 08/11/18 13:43 Gram Stain - Final Wound - Heel Right Wound Culture - Final Burkholderia cepacia Anaerobic Culture - Final No anaerobic bacteria isolated. Laboratory Tests Past 24 Hrs 08/13/18 08/13/18 05:10 10:57 Magnesium 2.2 Ammonia 31.0 POC Glucose 08/14/18 08/13/18 08/13/18 07:09 22:51 11:33 POC Glucose 103 160 H 223 H Medical Necessity - Tobacco Use Smoking Status: Never smoker Assessment/Plan All Active Problems (Last Reviewed 08/13/18 @ 10:19 by Fernando Patterson MD) Acute encephalopathy (Acute) Osteomyelitis (Acute) Non-STEMI (non-ST elevated myocardial infarction) (Acute) Abnormal EKG (Acute) Decubitus pressure ulcerations bilateral heel, lateral right ankle and lateral distal left leg w/ osteomyelitis Cellulitis right heel/lateral ankle Peripheral arterial disease bilateral lower extremity Reviewed diagnostic data. MRIs c/w osteomyelitis to the calcaneus posterior aspect bilateral and left lateral malleolus. Culture growing Burkholderia right heel, continue with antibiotics per Infectious disease, who is following patient as well. Noninvasive lower extremity arterial study reviewed- significant PAD present - discussed with Dr. Lagos who has recommended against further vascular attempts at restoring flow to feet, has discussed possible major amputation options, however patient relates he would like to further consider all of the options. Patient relates he is not ready to proceed with any amputation at this time. There has been noted improvement to the anterior left ankle ulceration with use of Santyl, which we will continue with. Otherwise rest of ulcerations would do best with betadine solution to keep dry and help prevent from turning to wet gangrene. Goal is to keep wound sites as stable as possible as patient further considers his options. Dressing changes: Santyl with overlying gauze dressing changes daily to the left anterior ankle ulceration. Otherwise betadine solution to rest of ulceration sites with overlying gauze and kerlix dressing. Keep pressure off of wound sites at all times - using offloading foam boots as wells pillows. No weightbearing to heels bilateral. Podiatry will continue to follow. Recommend patient to follow up with the wound center once discharged.
[2018-08-14] MEDS: Ascorbic Acid 500 MG Tablet 1000 MG PO (09:31)
[2018-08-14] MEDS: Carvedilol 6.25 MG Tablet PO ×2 (09:31→22:19)
[2018-08-14] MEDS: Clopidogrel Bisulfate 75 MG Tablet PO (09:33)
[2018-08-14] MEDS: Magnesium Oxide 400 MG Tablet PO ×2 (09:33→22:22)
[2018-08-14] MEDS: Gabapentin 300 MG Capsule 600 MG PO ×4 (09:33→22:23)
--- NOTE | 2018-08-14 10:46 | EEG ---
- Electroencephalogram This is an 18 channel electroencephalogram performed on this 89-year-old male with a history of cystitis and encephalopathy. 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 He is not currently on an anticonvulsant. The International 10-20 electrode placement protocol is utilized for this recording. Hyperventilation, photic stimulation and EKG reference leads were also recorded. Hyperventilation is performed for 3 minutes with good effort with no lateralizing or epileptiform changes. Background activity is mildly slow at 7 Hz symmetrically in the posterior leads which attenuates with eye opening. Photic stimulation generates a normal symmetric driving response in the posterior leads. The patient remained awake throughout the recording without lateralizing or epileptiform changes. Impression: Mild nonspecific slowing, no lateralizing or epileptiform changes. Mild slowing is consistent with the diagnosis of encephalopathy due to metabolic issues.
--- NOTE | 2018-08-14 11:13 | PCM.EXTCARCO ---
<Nadira Goldberg - Last Filed: 08/14/18 11:20> - Diet 08/11/18 01:17 Diet: Cardiac/Low Cholesterol Food consistency:: Regular Liquid Consistency:: Regular/Thin - Routine Orders/Code Status Enema Type: Fleetz Enema Frequency: Daily PRN Suppository Type: Dulcolax 10mg Suppository Frequency: Daily PRN O2 Liters per Minute: 2 O2 Frequency: PRN Keep PO Greater than or Equal to (%): 90 Routine Lab Work: CBC, BMP, - - Q Week - Wound(s) L dorsal foot Wound Type: Neuropathic/Diabetic Foot Ulcer Dressing Change: santyl with dry dressing L outer ankle Wound Type: Neuropathic/Diabetic Foot Ulcer Dressing Change: santyl with dry dressing L foot heel Wound Type: Neuropathic/Diabetic Foot Ulcer Dressing Change: santyl with dry dressing L large toe Wound Type: scabbed ulcer R large toe Wound Type: scabbed ulcer R heel Wound Type: Neuropathic/Diabetic Foot Ulcer Dressing Change: santyl with dry dressing R outer ankle Wound Type: Neuropathic/Diabetic Foot Ulcer R dorsal ankle Wound Type: Neuropathic/Diabetic Foot Ulcer right lateral malleolus Wound Type: combination of pressure and ischemia Dressing Change: santyl with dry dressing - Suggestions for Active Care Change Position every (hours): 2 Times a day to sit in chair: 3 - Therapies Weight Bearing: Partial weight bearing Physical Therapy: Eval and Treat Occupational Therapy: Eval and Treat - Problem/Diagnosis (1) Acute encephalopathy Status: Acute Current Visit: Yes (2) Osteomyelitis Status: Acute Current Visit: Yes (3) Non-STEMI (non-ST elevated myocardial infarction) Status: Resolved Current Visit: No (4) Chronic pain Status: Chronic Current Visit: No (5) Nocardia infection Status: Chronic Comment: 2004, right arm and left leg, continued suppressive therapy Current Visit: No (6) Transverse myelitis Status: Chronic Comment: treated in 2005 as a result of E. Coli meningitis after placement of the initial CDL PROGRAM COORDINATOR shunt. Current Visit: No (7) Constipation Status: Chronic Current Visit: No (8) Carpal tunnel syndrome on both sides Status: Chronic Current Visit: No (9) Syringomyelia Status: Chronic Current Visit: No (10) HTN (hypertension) Status: Chronic Current Visit: No (11) PAD (peripheral artery disease) Status: Chronic Current Visit: No (12) Left leg weakness Status: Chronic Current Visit: No (13) Paraplegia Status: Chronic Comment: due to transverse myelitis Current Visit: No - Allergies/Procedures Done in Hospital Allergies/Adverse Reactions: Allergies Cephalosporins Allergy (Intermediate, Verified 08/10/18 20:29) Laryngospasms Penicillins Allergy (Intermediate, Verified 08/10/18 20:29) Rash IVP DYE Allergy (Uncoded 07/05/18 10:04) Rash Procedures: Electroencephalogram, - - Arterial study - Type of Care/Length of Stay Estimated LOS: More Than 30 Days Type of Care Needed: Skilled Rehab Potential: Fair Prognosis: Fair - Additional Orders/Day of Discharge H&P will serve as current which was dated: 08/11/18 Day of Discharge: 08/15/18 - Dietary and Speech Recommendations Dietitian Recommendations/Changes: Rec 1 packet Fred BID for wound healing- order from pharmacy. Rec continue cardiac diet and encourage ensure w/ medpass consumption. - Follow Up Care Primary Care Physician: Eris Melendez MD [Primary Care Provider] - Please follow up with your Primary Care Physician in: 1 Week Please Follow Up With: Vicente Quintaan DPM When: 1-2 Weeks Please Follow Up With: Fernando Patterson MD When: 1-2 Weeks Please Follow Up With: Wound Center When: 1 Week <Ashly Huang - Last Filed: 08/14/18 16:05> - Diet 08/11/18 01:17 Diet: Cardiac/Low Cholesterol Food consistency:: Regular Liquid Consistency:: Regular/Thin
[2018-08-14 11:15] LABS: Bedside Glucose 112 mg/dL (70-110)
--- NOTE | 2018-08-14 11:18 | PN.ID_ITS ---
Patient Problems: Active and Suspected Problems (Last Reviewed 08/13/18 @ 10:19 by Fernando Patterson MD) Acute encephalopathy (Acute) Osteomyelitis (Acute) Subjective: Feeling better. Stable BLE spasms. No fever. - Physical Exam General: Alert, Cooperative, No apparent distress Lungs: Clear to auscultation, Normal air movement Cardiovascular: Regular rate, Regular Rhythm Abdomen: Soft, Non Tender, Non-Distended Skin: Ulcer/ Wound - bilat heels Vital Signs Temp Pulse Resp BP Pulse Ox 98.3 F 56 L 16 114/50 L 93 08/14/18 09:20 08/14/18 11:03 08/14/18 09:20 08/14/18 09:20 08/14/18 09:20 Oxygen Flow Rate (L/min) 2 Oxygen Delivery Method Room Air Weight: 80.7 kg Body Mass Index (BMI) 25.5 Intake and Output for Last 24 Hours 08/12/18 08/13/18 08/14/18 23:59 23:59 23:59 Intake Total 918.9 / 918.9 1488 / 1488 240 / 240 Output Total 1325 / 1325 1725 / 1725 650 / 650 Balance -406.1 / -406.1 -237 / -237 -410 / -410 Microbiology Past 72 Hours 08/11/18 13:43 Gram Stain - Final Wound - Heel Right Wound Culture - Final Burkholderia cepacia Anaerobic Culture - Final No anaerobic bacteria isolated. Laboratory Tests Past 24 Hrs 08/13/18 08/13/18 05:10 10:57 Magnesium 2.2 Ammonia 31.0 POC Glucose 08/14/18 08/14/18 08/13/18 11:09 07:09 22:51 POC Glucose 112 H 103 160 H 08/13/18 11:33 POC Glucose 223 H Medical Necessity - Tobacco Use Smoking Status: Never smoker Route of nutrition/ use of supplements: [] Nutritional Intake: [] IV Site: [] Wheeler Catheter: [] - Assessment/Plan Antibiotics: [] Assessment/Plan: [] Active and Suspected Problems (Last Reviewed 08/13/18 @ 10:19 by Fernando Patterson MD) Acute encephalopathy (Acute) Citrobacter pyelonephritis - on meropenem. Reports rash/hives with PCN. Not sure about cephalosporins. Improved. Fever resolved. Bilateral heel osteo - Dr. Quintana following. Wound cx with burkholderia. Plan on 6 week course of meropenem via picc, stop date 09/22/18, weekly bmp, cbc , lft, esr. h/o nocardia - bactrim currently on hold, will restart for indefinite suppression Will follow, d/w family preservation caseworker, rx written for labs and abx.
--- NOTE | 2018-08-14 12:04 | CASEMGMT ---
Social Work: Spoke with JAMAL Waddell who states that patient will need a PICC line that will be placed this evening. Patient will be ready for D/C tomorrow. TC to Christina at [facility]. Voice mail message left regarding D/C planned for tomorrow. Orders, med list and Rx for ATB faxed to Christina at [facility]. TC to [facility]. Cot transport scheduled for Monday08/15/18 at 2:00 pm. PLAN: Patient to be discharged to [facility] tomorrow by [facility] cot. SEBASTIÁN Roberts
--- NOTE | 2018-08-14 12:53 | PCM.PROGNOTE ---
<Nadira Goldberg - Last Filed: 08/14/18 13:01> Patient Problems: Active and Suspected Problems (Last Reviewed 08/13/18 @ 10:19 by Fernando Patterson MD) Acute encephalopathy (Acute) Osteomyelitis (Acute) Subjective: Patient resting comfortably in bed. States he slept well overnight. Denies current complaints. - Physical Exam General: Alert, Oriented x3, Cooperative, No apparent distress HEENT: Atraumatic, PERRLA, EOMI, Normocephalic Neck: Supple, No JVD, Negative Carotid Bruits Lungs: Clear to auscultation, Diminished Cardiovascular: Regular rate, Regular Rhythm, Normal S1, Normal S2, No murmurs Abdomen: Bowel Sounds Present, Soft, Non Tender, Non-Distended Extremities: No clubbing, No cyanosis, No edema, Capillary Refill Less than 3 Seconds Skin: No rashes, No breakdown, - - Stage II coccyx decubital ulcer, bilateral heel pressure wounds. Both present on admission. Musculoskeletal: No Tenderness to Palpation of Joints or Extremities Neurological: Cranial nerves II-XII grossly intact, Neuro grossly intact, - - Chronic paraplegia. Psych/Mental Status: Normal Affect, Appropriate Vital Signs Temp Pulse Resp BP Pulse Ox 98.3 F 56 L 16 114/50 L 93 08/14/18 09:20 08/14/18 11:03 08/14/18 09:20 08/14/18 09:20 08/14/18 09:20 Oxygen Flow Rate (L/min) 2 Oxygen Delivery Method Room Air Weight: 177 lb 14.609 oz Body Mass Index (BMI) 25.5 Intake and Output for Last 24 Hours 08/12/18 08/13/18 08/14/18 23:59 23:59 23:59 Intake Total 918.9 / 918.9 1488 / 1488 1008 / 1008 Output Total 1325 / 1325 1725 / 1725 1250 / 1250 Balance -406.1 / -406.1 -237 / -237 -242 / -242 Microbiology Past 72 Hours 08/11/18 13:43 Gram Stain - Final Wound - Heel Right Wound Culture - Final Burkholderia cepacia Anaerobic Culture - Final No anaerobic bacteria isolated. Laboratory Tests Past 24 Hrs 08/13/18 05:10 Magnesium 2.2 POC Glucose 08/14/18 08/14/18 08/13/18 11:09 07:09 22:51 POC Glucose 112 H 103 160 H Medical Necessity - Tobacco Use Smoking Status: Never smoker Assessment/Plan All Active Problems (Last Reviewed 08/13/18 @ 10:19 by Fernando Patterson MD) Acute encephalopathy (Acute) Osteomyelitis (Acute) Non-STEMI (non-ST elevated myocardial infarction) (Resolved) 1. Acute encephalopathy suspected secondary to acute citrobacter cystitis-mental status at baseline. Patient with history of recurrent cystitis secondary to chronic urinary retention with umva-yfkcobwnfsxqafm-lx meropenem given complicated history of urine cultures, positive for enterococcus and Pseudomonas with allergy to penicillins and cephalosporins. Wheeler in place. Urine culture positive for Citrobacter. Blood culture shows no growth. ID following. PICC line to be placed today for ID recommendations of IV meropenem for 6 weeks of therapy at [facility]. 2. Stage II decubitus coccyx ulcer/bilateral heel osteomyelitis-wounds present on admission. Podiatry consulted. Wound RN consult. Frequent position changes. MRI of bilateral lower extremities ordered to assess bilateral heel pressure ulcers. Wound culture right heel shows burkholderia. Noninvasive lower extremity arterial study showed findings consistent with critical ischemia of the right lower extremity, multisegmental vascular occlusive disease, occlusion of the right posterior tibial suspected, diffuse calcification of vessel montejo noted throughout the large vessels, ankle brachial indices could not be obtained, Doppler waveforms markedly abnormal particularly involving the dorsalis pedis, findings consistent with multisegmental occlusive disease.. Continue dressing changes as ordered: Santyl, gauze, offloading foam boots. ID consulted. PICC line to be placed today for ID recommendations of IV meropenem for 6 weeks of therapy at [facility]. Dr. Lagos evaluated patient who did not recommend vascular intervention. Recommended consideration for amputation of bilateral lower extremities. Patient not interested in this route at this time. 3. Involuntary movements-Neurology consulted. Patient is reported to have history of seizures and is not on AEDs. EEG without evidence of seizure activity. Patient reports history of spastic movements. Previously on baclofen which he states was note effective. Try flexeril 10mg TID PRN. Recommend outpatient follow up with neurology at discharge. Patient previously followed with Dr. Basilio. Would like to transfer care to Dr. Patterson at discharge. 4. History of NSTEMI-continue Plavix, statin, Coreg, losartan. Denies chest pain. Follows as outpatient with [facility]. 5. Type 2 diabetes mellitus-home metformin regimen continued. 6. 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 PT/OT. 7. 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 9. PVD-continue statin, Plavix. 10. Hypertension-stable, continue home carvedilol, losartan regimen. 11. Depression-continue home Lexapro regimen. DVT prophylaxis-Lovenox subcu. This patient was seen by KYRA StevensC under the supervision of Dr. Huang. <Ashly Huang - Last Filed: 08/14/18 16:16> - Physical Exam Vital Signs Temp Pulse Resp BP Pulse Ox 98.3 F 56 L 16 114/50 L 93 08/14/18 09:20 08/14/18 15:04 08/14/18 09:20 08/14/18 09:20 08/14/18 09:20 Oxygen Flow Rate (L/min) 2 Oxygen Delivery Method Room Air Weight: 80.7 kg Body Mass Index (BMI) 25.5 Intake and Output for Last 24 Hours 08/12/18 08/13/18 08/14/18 23:59 23:59 23:59 Intake Total 918.9 / 918.9 1488 / 1488 1008 / 1008 Output Total 1325 / 1325 1725 / 1725 1250 / 1250 Balance -406.1 / -406.1 -237 / -237 -242 / -242 Microbiology Past 72 Hours 08/11/18 13:43 Gram Stain - Final Wound - Heel Right Wound Culture - Final Burkholderia cepacia Anaerobic Culture - Final No anaerobic bacteria isolated. POC Glucose 08/14/18 08/14/18 08/13/18 11:09 07:09 22:51 POC Glucose 112 H 103 160 H Assessment/Plan Patient was seen and examined. I agree with the above interval history, physical exam and assessment and plan as documented by YARN SPOOLER, Nadira Goldberg. Patient denied any active complaints. Has occasional spasms of both lower extremities. No acute events overnight. Patient aware of recommendation from vascular surgery; not receptive to option for bilateral amputation. Vitals are stable. Blood sugars are controlled Appreciate all consults. Aware of plan for IV antibiotics and conservative management. Past with infectious disease, patient will be getting a PICC line today and will need 6 weeks of antibiotics, resumption of Bactrim on discharge for history of nocardia. Patient will follow up with Dr. Quintana in the outpatient. Code Visit Inpatient E&M: 21971 Subs Hosp L2
--- NOTE | 2018-08-14 13:00 | PN_ITS ---
<Nadira Goldberg - Last Filed: 08/14/18 13:01> Patient Problems: Active and Suspected Problems (Last Reviewed 08/13/18 @ 10:19 by Fernando Patterson MD) Acute encephalopathy (Acute) Osteomyelitis (Acute) Subjective: Patient resting comfortably in bed. States he slept well overnight. Denies current complaints. - Physical Exam General: Alert, Oriented x3, Cooperative, No apparent distress HEENT: Atraumatic, PERRLA, EOMI, Normocephalic Neck: Supple, No JVD, Negative Carotid Bruits Lungs: Clear to auscultation, Diminished Cardiovascular: Regular rate, Regular Rhythm, Normal S1, Normal S2, No murmurs Abdomen: Bowel Sounds Present, Soft, Non Tender, Non-Distended Extremities: No clubbing, No cyanosis, No edema, Capillary Refill Less than 3 Seconds Skin: No rashes, No breakdown, - - Stage II coccyx decubital ulcer, bilateral heel pressure wounds. Both present on admission. Musculoskeletal: No Tenderness to Palpation of Joints or Extremities Neurological: Cranial nerves II-XII grossly intact, Neuro grossly intact, - - Chronic paraplegia. Psych/Mental Status: Normal Affect, Appropriate Vital Signs Temp Pulse Resp BP Pulse Ox 98.3 F 56 L 16 114/50 L 93 08/14/18 09:20 08/14/18 11:03 08/14/18 09:20 08/14/18 09:20 08/14/18 09:20 Oxygen Flow Rate (L/min) 2 Oxygen Delivery Method Room Air Weight: 177 lb 14.609 oz Body Mass Index (BMI) 25.5 Intake and Output for Last 24 Hours 08/12/18 08/13/18 08/14/18 23:59 23:59 23:59 Intake Total 918.9 / 918.9 1488 / 1488 1008 / 1008 Output Total 1325 / 1325 1725 / 1725 1250 / 1250 Balance -406.1 / -406.1 -237 / -237 -242 / -242 Microbiology Past 72 Hours 08/11/18 13:43 Gram Stain - Final Wound - Heel Right Wound Culture - Final Burkholderia cepacia Anaerobic Culture - Final No anaerobic bacteria isolated. Laboratory Tests Past 24 Hrs 08/13/18 05:10 Magnesium 2.2 POC Glucose 08/14/18 08/14/18 08/13/18 11:09 07:09 22:51 POC Glucose 112 H 103 160 H Medical Necessity - Tobacco Use Smoking Status: Never smoker Assessment/Plan All Active Problems (Last Reviewed 08/13/18 @ 10:19 by Fernando Patterson MD) Acute encephalopathy (Acute) Osteomyelitis (Acute) Non-STEMI (non-ST elevated myocardial infarction) (Resolved) 1. Acute encephalopathy suspected secondary to acute citrobacter cystitis- mental status at baseline. Patient with history of recurrent cystitis secondary to chronic urinary retention with njou-cfhqmessalektcb-vb meropenem given complicated history of urine cultures, positive for enterococcus and Pseudomonas with allergy to penicillins and cephalosporins. Wheeler in place. Urine culture positive for Citrobacter. Blood culture shows no growth. ID following. PICC line to be placed today for ID recommendations of IV meropenem for 6 weeks of therapy at [facility]. 2. Stage II decubitus coccyx ulcer/bilateral heel osteomyelitis-wounds present on admission. Podiatry consulted. Wound RN consult. Frequent position changes. MRI of bilateral lower extremities ordered to assess bilateral heel pressure ulcers. Wound culture right heel shows burkholderia. Noninvasive lower extremity arterial study showed findings consistent with critical ischemia of the right lower extremity, multisegmental vascular occlusive disease , occlusion of the right posterior tibial suspected, diffuse calcification of vessel montejo noted throughout the large vessels, ankle brachial indices could not be obtained, Doppler waveforms markedly abnormal particularly involving the dorsalis pedis, findings consistent with multisegmental occlusive disease.. Continue dressing changes as ordered: Santyl, gauze, offloading foam boots. ID consulted. PICC line to be placed today for ID recommendations of IV meropenem for 6 weeks of therapy at [facility]. Dr. Lagos evaluated patient who did not recommend vascular intervention. Recommended consideration for amputation of bilateral lower extremities. Patient not interested in this route at this time. 3. Involuntary movements-Neurology consulted. Patient is reported to have history of seizures and is not on AEDs. EEG without evidence of seizure activity. Patient reports history of spastic movements. Previously on baclofen which he states was note effective. Try flexeril 10mg TID PRN. Recommend outpatient follow up with neurology at discharge. Patient previously followed with Dr. Basilio. Would like to transfer care to Dr. Patterson at discharge. 4. History of NSTEMI-continue Plavix, statin, Coreg, losartan. Denies chest pain. Follows as outpatient with [facility]. 5. Type 2 diabetes mellitus-home metformin regimen continued. 6. 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 PT/OT. 7. History of subarachnoid hemorrhage status post CAKE MAKER shunt/syringomyelia- stable. 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 9. PVD-continue statin, Plavix. 10. Hypertension-stable, continue home carvedilol, losartan regimen. 11. Depression-continue home Lexapro regimen. DVT prophylaxis-Lovenox subcu. This patient was seen by KYRA StevensC under the supervision of Dr. Huang. <Ashly Huang - Last Filed: 08/14/18 16:16> - Physical Exam Vital Signs Temp Pulse Resp BP Pulse Ox 98.3 F 56 L 16 114/50 L 93 08/14/18 09:20 08/14/18 15:04 08/14/18 09:20 08/14/18 09:20 08/14/18 09:20 Oxygen Flow Rate (L/min) 2 Oxygen Delivery Method Room Air Weight: 80.7 kg Body Mass Index (BMI) 25.5 Intake and Output for Last 24 Hours 08/12/18 08/13/18 08/14/18 23:59 23:59 23:59 Intake Total 918.9 / 918.9 1488 / 1488 1008 / 1008 Output Total 1325 / 1325 1725 / 1725 1250 / 1250 Balance -406.1 / -406.1 -237 / -237 -242 / -242 Microbiology Past 72 Hours 08/11/18 13:43 Gram Stain - Final Wound - Heel Right Wound Culture - Final Burkholderia cepacia Anaerobic Culture - Final No anaerobic bacteria isolated. POC Glucose 08/14/18 08/14/18 08/13/18 11:09 07:09 22:51 POC Glucose 112 H 103 160 H Assessment/Plan Patient was seen and examined. I agree with the above interval history, physical exam and assessment and plan as documented by TOP BOTTOM ATTACHING MACHINE OPERATOR, Nadira Goldberg. Patient denied any active complaints. Has occasional spasms of both lower extremities. No acute events overnight. Patient aware of recommendation from vascular surgery; not receptive to option for bilateral amputation. Vitals are stable. Blood sugars are controlled Appreciate all consults. Aware of plan for IV antibiotics and conservative management. Past with infectious disease, patient will be getting a PICC line today and will need 6 weeks of antibiotics, resumption of Bactrim on discharge for history of nocardia. Patient will follow up with Dr. Quintana in the outpatient. Code Visit Inpatient E&M: 69006 Subs Hosp L2
[2018-08-14] MEDS: Multivitamins,Ther W-Minerals Tablet 1 TABLET PO (17:29)
[2018-08-14] MEDS: 0.9% NaCl Peripheral Flush Adult/Peds IV (17:29)
[2018-08-14] MEDS: Tamsulosin HCl 0.4 MG Capsule PO (17:29)
[2018-08-14 17:41] LABS: Bedside Glucose 112 mg/dL (70-110)
[2018-08-14] MEDS: Losartan Potassium 25 MG Tablet 12.5 MG PO (22:19)
[2018-08-14] MEDS: traZODone 50 MG Tablet 25 MG PO (22:20)
[2018-08-14] MEDS: Furosemide 40 MG Tablet PO (22:21)
[2018-08-14] MEDS: Atorvastatin Calcium 40 MG Tablet PO (22:21)
[2018-08-14] MEDS: Isosorbide Mononitrate 20 MG Tablet 10 MG PO (22:22)
[2018-08-14 22:40] LABS: Bedside Glucose 155 mg/dL (70-110)
[2018-08-15] VITALS (8 sets, daily range): BP systolic 121–165; BP diastolic 60–79; PULSE 59–67; RESP 14–16; TEMP 36.8; O2SAT 92–94
[2018-08-15] MEDS: 0.9% NaCl Peripheral Flush Adult/Peds IV
[2018-08-15 06:07] LABS: Absolute Lymphocyte Count 1.53 X10^3/ul (0.83-4.51); Basophil# 0.04 X10^3/uL; Basophil% 0.8 % (0-1); Eosinophil# 0.19 X10^3/uL; Eosinophils% 3.6 % (0-5); Hematocrit 33.4 % (40-54); Hemoglobin 10.6 g/dl (13.0-16.5); Lymphocyte # 1.53 X10^3/ul (4.0); Mean Corp Hgb Conc 31.7 g/gl (32-36); Mean Corpuscular Hgb 31.2 pg (27.0-32.0); Mean Corpuscular Volume 98.2 fL (80-94); Mean Platelet Vol. 9.3 fl (6.2-12.0); Monocyte# 0.45 X10^3/uL; Monocyte% 8.5 % (0-10); Neutrophil # 3.02 X10^3/uL (2.7-7.7); Neutrophil % 57.3 % (47-70); POSITIVE COUNT NO; POSITIVE DIFFERENTIAL NO; POSITIVE MORPHOLOGY NO; Platelet Count 191 K/mm3 (150-450); RBC Distribution Width CV 13.4 % (11.6-14.6); RBC Distribution Width SD 47.5 fl (35.1-43.9); White Blood Count 5.3 K/mm3 (4.4-11.0)
[2018-08-15 06:27] LABS: Anion Gap 7 (5-15); BUN 15 mg/dL (7-18); BUN/Creat Ratio 22.7 RATIO (10-20); Calcium,Total 8.3 mg/dL (8.5-10.1); Chloride 107 mmol/L (98-107); Creatinine, Serum 0.66 mg/dL (0.70-1.30); EST Glomerular Filtration Rate 123 mL/min (>60); Est Glom Filt Rate - Afr Amer 149 mL/min (>60); Estimated Creatinine Clearance 60.83 ml/min; Glucose 94 mg/dL (74-106); Potassium 3.6 mmol/L (3.5-5.1); Sodium Level 145 mmol/L (136-145)
[2018-08-15 06:51] LABS: Bedside Glucose 98 mg/dL (70-110)
[2018-08-15] MEDS: Gabapentin 300 MG Capsule 600 MG PO ×2 (09:37→13:28)
[2018-08-15] MEDS: Smz/Tmp Ds Tablet 1 TABLET PO (09:37)
[2018-08-15] MEDS: Collagenase 30gm Tube 1 APPLIC TOPICAL (09:38)
[2018-08-15] MEDS: Ascorbic Acid 500 MG Tablet 1000 MG PO (09:38)
[2018-08-15] MEDS: Carvedilol 6.25 MG Tablet PO (09:38)
[2018-08-15] MEDS: Magnesium Oxide 400 MG Tablet PO (09:39)
[2018-08-15] MEDS: Clopidogrel Bisulfate 75 MG Tablet PO (09:39)
--- NOTE | 2018-08-15 09:56 | NURSING ---
No guaze noted at insertion site.
--- NOTE | 2018-08-15 10:37 | PCM.DC.SUM ---
<Nadira Goldberg - Last Filed: 08/15/18 10:45> Discharge Date and Diagnosis Date of Admission: 08/11/18 Date of Discharge: 08/15/18 - Primary Discharge Diagnosis Active and Suspected Problems (Last Reviewed 08/13/18 @ 10:19 by Fernando Patterson MD) 1. Acute encephalopathy suspected secondary to acute Citrobacter cystitis 2. 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 No destructive bone changes are seen. Electronically Signed: Jackelin Ramachandran MD at 20:04 EDT Tel , Service support , Lower Extremity MRI 08/12/18 13:46 IMPRESSION: Mild marrow edema of the calcaneus and lateral malleolus with osteomyelitis versus stress injury. Electronically Signed: Gigi Cook MD at 13:44 EDT , Service support , Brain CT 08/12/18 18:27 IMPRESSION: 1. No acute process. 2. Chronic right parietal infarct. Electronically Signed: Jackelin Ramachandran MD at 20:43 EDT Tel , Service support , Consultations 08/11/18 02:51 Consult: Onc/Wound/welfare centre manager Routine Comment: NECROTIC WOUNDS FEET, ULCER COCCYX Dr. Patterson- Neurology Dr. Lagos- Vascular Dr. Robert- ID Dr. Quintana- Podiatry Operations: None Procedures: Electroencephalogram Summary of Care Provided: The patient is a 82 year old M admitted 08/11/2018 due to altered mental status. 1. Acute encephalopathy suspected secondary to acute citrobacter cystitis-mental status at baseline. Patient with history of recurrent cystitis secondary to chronic urinary retention with suul-iybrwkaqtnavtha-od meropenem given complicated history of urine cultures, positive for enterococcus and Pseudomonas with allergy to penicillins and cephalosporins. Wheeler in place. Urine culture positive for Citrobacter. Blood culture shows no growth. ID following. PICC line placed for ID recommendations of IV meropenem for 6 weeks of therapy at [facility]. 2. Stage II decubitus coccyx ulcer/bilateral heel osteomyelitis-wounds present on admission. Podiatry consulted. Frequent position changes. MRI of bilateral lower extremities ordered to assess bilateral heel pressure ulcers. Wound culture right heel shows burkholderia. Noninvasive lower extremity arterial study showed findings consistent with critical ischemia of the right lower extremity, multisegmental vascular occlusive disease, occlusion of the right posterior tibial suspected, diffuse calcification of vessel montejo noted throughout the large vessels, ankle brachial indices could not be obtained, Doppler waveforms markedly abnormal particularly involving the dorsalis pedis, findings consistent with multisegmental occlusive disease.. Continue dressing changes as ordered: Santyl, gauze, offloading foam boots. ID consulted. PICC line placed for ID recommendations of IV meropenem for 6 weeks of therapy at [facility]. Dr. Lagos evaluated patient who did not recommend vascular intervention. Recommended consideration for amputation of bilateral lower extremities. Patient not interested in this route at this time. Follow up with Dr. Quintana in 1-2 Weeks and Wound Center Weekly. 3. Involuntary movements-Neurology consulted. Patient is reported to have history of seizures and is not on AEDs. EEG without evidence of seizure activity. Patient reports history of spastic movements. Previously on baclofen which he states was note effective. Continue flexeril 10mg TID PRN. Recommend outpatient follow up with neurology at discharge. Patient previously followed with Dr. Basilio. Would like to transfer care to Dr. Patterson at discharge. Follow up with Dr. Patterson in 1-2 Weeks. 4. History of NSTEMI-continue Plavix, statin, Coreg, losartan. Denies chest pain. Follows as outpatient with [facility]. 5. Type 2 diabetes mellitus-home metformin regimen continued. 6. 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 PT/OT. 7. History of subarachnoid hemorrhage status post GLAZIER APPRENTICE shunt/syringomyelia- stable. 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 9. PVD-continue statin, Plavix. 10. Hypertension-stable, continue home carvedilol, losartan regimen. 11. Depression-continue home Lexapro regimen. General: Alert, Oriented x3, Cooperative, No apparent distress HEENT: Atraumatic, PERRLA, EOMI, Normocephalic Neck: Supple, No JVD, Negative Carotid Bruits Lungs: Clear to auscultation, Diminished Cardiovascular: Regular rate, Regular Rhythm, Normal S1, Normal S2, No murmurs Abdomen: Bowel Sounds Present, Soft, Non Tender, Non-Distended Extremities: No clubbing, No cyanosis, No edema, Capillary Refill Less than 3 Seconds Skin: No rashes, No breakdown, - - Stage II coccyx decubital ulcer, bilateral heel pressure wounds. Both present on admission. Musculoskeletal: No Tenderness to Palpation of Joints or Extremities Neurological: Cranial nerves II-XII grossly intact, Neuro grossly intact, - - Chronic paraplegia. Psych/Mental Status: Normal Affect, Appropriate Patient is exam prior to discharge. Physical assessment as noted above. Patient stable for discharge to SNF with the follow-up her conditions as noted above. This patient was seen by EYAD Stevens under the supervision of Dr. Huang. Home Medications: Medications to take at Discharge Multivitamins,Ther W-Minerals [Multivitamin With Minerals] 1 tab PO DAILY@1700 #30 tab 09/18/14 Pyridoxine HCl [Vitamin B-6] 100 mg PO DAILY@1700 #30 tab 09/18/14 Losartan Potassium [Cozaar] 12.5 mg PO DAILY@2200 01/12/16 Riboflavin [Vitamin B2] 300 mg PO DAILY@1700 11/10/16 Ascorbic Acid [Vitamin C] 1,000 mg PO DAILY 07/05/18 Escitalopram Oxalate [Lexapro] 10 mg PO DAILY 07/05/18 Gabapentin [Neurontin] 600 mg PO 4X/DAY 07/05/18 [place] Carbonate 150 mg PO TID 07/05/18 Atorvastatin Calcium [Lipitor] 40 mg PO QHS #90 tab 07/09/18 Carvedilol [Coreg (Beta Krissy)] 6.25 mg PO BID #90 tab 07/09/18 Clopidogrel Bisulfate [Plavix] 75 mg PO DAILY #90 tab 07/09/18 Isosorbide Mononitrate 10 mg PO QHS #90 tab 07/09/18 Morphine Sulfate [Morphine Sulfate ER] 30 mg PO BID 2 Days #4 tablet.er 07/09/18 Hydrocodone/Acetaminophen [Hydrocodone-Acetamin 10-325 mg] 10 - 325 mg PO DAILY 08/10/18 Furosemide [Lasix] 40 mg PO DAILY 08/11/18 Magnesium 400 mg PO BID 08/11/18 Potassium Chloride 20 meq DAILY 08/11/18 Sennosides/Docusate Sodium [Senna-S Laxative Tablet] 2 each PO DAILY 08/11/18 traZODone [Desyrel] 25 mg PO QHS 08/11/18 Collagenase [Santyl] 1 applic TOPICAL DAILY tube 08/14/18 Cyclobenzaprine [Flexeril] 10 mg PO TID PRN PRN tablet 08/14/18 Meropenem [Merrem] 500 mg IV Q8H 39 Days #117 vial 08/14/18 Metformin HCl [Glucophage] 500 mg PO BIDCM tablet 08/14/18 Mineral Oil/Petrolatum,White [Eucerin] 1 applic TOPICAL BID jar 08/14/18 Smz/Tmp Ds [Bactrim Ds] 1 tablet PO DAILY tablet 08/14/18 Tamsulosin HCl [Flomax] 0.4 mg PO DAILY@1730 capsule 08/14/18 Following Prescrptions Were Given to Patient: Meropenem [Merrem] 500 mg IV Q8H 39 Days #117 vial Primary Care Physician: Eris Melendez MD [Primary Care Provider] - Please follow up with your Primary Care Physician in: 1 Week Please Follow Up With: Vicente Quintana DPM When: 1-2 Weeks Please Follow Up With: Fernando Patterson MD When: 1-2 Weeks Please Follow Up With: Wound Center When: 1 Week Disposition: [facility] facility Minutes spent on discharge:: 35 Patient Condition:: Stable Medical Necessity - Tobacco Use Smoking Status: Never smoker Meaningful Use Info Meaningful Use Diagnoses (Choose all that apply): None applicable <Paintsil,Retsof - Last Filed: 08/15/18 18:13> Discharge Date and Diagnosis - Secondary Discharge Diagnosis Chronic Problems (Last Reviewed 08/13/18 @ 10:19 by Fernando Patterson MD) Chronic pain (Chronic) Nocardia infection (Chronic) 2004, right arm and left leg, 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: Onc/Wound/welfare centre manager Routine Comment: NECROTIC WOUNDS FEET, ULCER COCCYX Summary of Care Provided: The patient is a 82 year old M [] Code Visit Inpatient E&M: 11623 Disch Hosp
--- NOTE | 2018-08-15 10:41 | DS.PCM_ITS ---
<Nadira Goldberg - Last Filed: 08/15/18 10:45> Discharge Date and Diagnosis Date of Admission: 08/11/18 Date of Discharge: 08/15/18 - Primary Discharge Diagnosis Active and Suspected Problems (Last Reviewed 08/13/18 @ 10:19 by Fernando Patterson MD) 1. Acute encephalopathy suspected secondary to acute Citrobacter cystitis 2. 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 No destructive bone changes are seen. Electronically Signed: Jackelin Ramachandran MD at 20:04 EDT Tel , Service support , Lower Extremity MRI 08/12/18 13:46 IMPRESSION: Mild marrow edema of the calcaneus and lateral malleolus with osteomyelitis versus stress injury. Electronically Signed: Gigi Cook MD at 13:44 EDT , Service support , Brain CT 08/12/18 18:27 IMPRESSION: 1. No acute process. 2. Chronic right parietal infarct. Electronically Signed: Jackelin Ramachandran MD at 20:43 EDT Tel , Service support , Consultations 08/11/18 02:51 Consult: Onc/Wound/software controls engineer Routine Comment: NECROTIC WOUNDS FEET, ULCER COCCYX Dr. Patterson- Neurology Dr. Lagos- Vascular Dr. Robert- ID Dr. Quintana- Podiatry Operations: None Procedures: Electroencephalogram Summary of Care Provided: The patient is a 82 year old M admitted 08/11/2018 due to altered mental status. 1. Acute encephalopathy suspected secondary to acute citrobacter cystitis- mental status at baseline. Patient with history of recurrent cystitis secondary to chronic urinary retention with enxo-fgrcztidskharxn-zf meropenem given complicated history of urine cultures, positive for enterococcus and Pseudomonas with allergy to penicillins and cephalosporins. Wheeler in place. Urine culture positive for Citrobacter. Blood culture shows no growth. ID following. PICC line placed for ID recommendations of IV meropenem for 6 weeks of therapy at [facility]. 2. Stage II decubitus coccyx ulcer/bilateral heel osteomyelitis-wounds present on admission. Podiatry consulted. Frequent position changes. MRI of bilateral lower extremities ordered to assess bilateral heel pressure ulcers. Wound culture right heel shows burkholderia. Noninvasive lower extremity arterial study showed findings consistent with critical ischemia of the right lower extremity, multisegmental vascular occlusive disease, occlusion of the right posterior tibial suspected, diffuse calcification of vessel montejo noted throughout the large vessels, ankle brachial indices could not be obtained, Doppler waveforms markedly abnormal particularly involving the dorsalis pedis, findings consistent with multisegmental occlusive disease.. Continue dressing changes as ordered: Santyl, gauze, offloading foam boots. ID consulted. PICC line placed for ID recommendations of IV meropenem for 6 weeks of therapy at [facility]. Dr. Lagos evaluated patient who did not recommend vascular intervention. Recommended consideration for amputation of bilateral lower extremities. Patient not interested in this route at this time. Follow up with Dr. Quintana in 1-2 Weeks and Wound Center Weekly. 3. Involuntary movements-Neurology consulted. Patient is reported to have history of seizures and is not on AEDs. EEG without evidence of seizure activity. Patient reports history of spastic movements. Previously on baclofen which he states was note effective. Continue flexeril 10mg TID PRN. Recommend outpatient follow up with neurology at discharge. Patient previously followed with Dr. Basilio. Would like to transfer care to Dr. Patterson at discharge. Follow up with Dr. Patterson in 1-2 Weeks. 4. History of NSTEMI-continue Plavix, statin, Coreg, losartan. Denies chest pain. Follows as outpatient with [facility]. 5. Type 2 diabetes mellitus-home metformin regimen continued. 6. Paraplegia secondary to history of transverse myelitis/subarachnoid [id number]. PT/OT. 7. History of subarachnoid hemorrhage status post SCREEN REPAIRER CRUSHER shunt/syringomyelia- stable. 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 9. PVD-continue statin, Plavix. 10. Hypertension-stable, continue home carvedilol, losartan regimen. 11. Depression-continue home Lexapro regimen. General: Alert, Oriented x3, Cooperative, No apparent distress HEENT: Atraumatic, PERRLA, EOMI, Normocephalic Neck: Supple, No JVD, Negative Carotid Bruits Lungs: Clear to auscultation, Diminished Cardiovascular: Regular rate, Regular Rhythm, Normal S1, Normal S2, No murmurs Abdomen: Bowel Sounds Present, Soft, Non Tender, Non-Distended Extremities: No clubbing, No cyanosis, No edema, Capillary Refill Less than 3 Seconds Skin: No rashes, No breakdown, - - Stage II coccyx decubital ulcer, bilateral heel pressure wounds. Both present on admission. Musculoskeletal: No Tenderness to Palpation of Joints or Extremities Neurological: Cranial nerves II-XII grossly intact, Neuro grossly intact, - - Chronic paraplegia. Psych/Mental Status: Normal Affect, Appropriate Patient is exam prior to discharge. Physical assessment as noted above. Patient stable for discharge to SNF with the follow-up her conditions as noted above. This patient was seen by EYAD Stevens under the supervision of Dr. Huang. Home Medications: Medications to take at Discharge Multivitamins,Ther W-Minerals [Multivitamin With Minerals] 1 tab PO DAILY@1700 # 30 tab 09/18/14 Pyridoxine HCl [Vitamin B-6] 100 mg PO DAILY@1700 #30 tab 09/18/14 Losartan Potassium [Cozaar] 12.5 mg PO DAILY@2200 01/12/16 Riboflavin [Vitamin B2] 300 mg PO DAILY@1700 11/10/16 Ascorbic Acid [Vitamin C] 1,000 mg PO DAILY 07/05/18 Escitalopram Oxalate [Lexapro] 10 mg PO DAILY 07/05/18 Gabapentin [Neurontin] 600 mg PO 4X/DAY 07/05/18 Woodland Carbonate 150 mg PO TID 07/05/18 Atorvastatin Calcium [Lipitor] 40 mg PO QHS #90 tab 07/09/18 Carvedilol [Coreg (Beta Krissy)] 6.25 mg PO BID #90 tab 07/09/18 Clopidogrel Bisulfate [Plavix] 75 mg PO DAILY #90 tab 07/09/18 Isosorbide Mononitrate 10 mg PO QHS #90 tab 07/09/18 Morphine Sulfate [Morphine Sulfate ER] 30 mg PO BID 2 Days #4 tablet.er Hydrocodone/Acetaminophen [Hydrocodone-Acetamin 10-325 mg] 10 - 325 mg PO DAILY 08/10/18 Furosemide [Lasix] 40 mg PO DAILY 08/11/18 Magnesium 400 mg PO BID 08/11/18 Potassium Chloride 20 meq DAILY 08/11/18 Sennosides/Docusate Sodium [Senna-S Laxative Tablet] 2 each PO DAILY 08/11/18 traZODone [Desyrel] 25 mg PO QHS 08/11/18 Collagenase [Santyl] 1 applic TOPICAL DAILY tube 08/14/18 Cyclobenzaprine [Flexeril] 10 mg PO TID PRN PRN tablet 08/14/18 Meropenem [Merrem] 500 mg IV Q8H 39 Days #117 vial 08/14/18 Metformin HCl [Glucophage] 500 mg PO BIDCM tablet 08/14/18 Mineral Oil/Petrolatum,White [Eucerin] 1 applic TOPICAL BID jar 08/14/18 Smz/Tmp Ds [Bactrim Ds] 1 tablet PO DAILY tablet 08/14/18 Tamsulosin HCl [Flomax] 0.4 mg PO DAILY@1730 capsule 08/14/18 Following Prescrptions Were Given to Patient: Meropenem [Merrem] 500 mg IV Q8H 39 Days #117 vial Primary Care Physician: Eris Melendez MD [Primary Care Provider] - Please follow up with your Primary Care Physician in: 1 Week Please Follow Up With: Vicente Quintana DPM When: 1-2 Weeks Please Follow Up With: Fernando Patterson MD When: 1-2 Weeks Please Follow Up With: Wound Center When: 1 Week Disposition: Detention facility Minutes spent on discharge:: 35 Patient Condition:: Stable Medical Necessity - Tobacco Use Smoking Status: Never smoker Meaningful Use Info Meaningful Use Diagnoses (Choose all that apply): None applicable <Paintsil,[place] - Last Filed: 08/15/18 18:13> Discharge Date and Diagnosis - Secondary Discharge Diagnosis Chronic Problems (Last Reviewed 08/13/18 @ 10:19 by Fernando Patterson MD) Chronic pain (Chronic) Nocardia infection (Chronic) 2004, right arm and left leg, 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
[2018-08-15 11:35] LABS: Bedside Glucose 126 mg/dL (70-110)
--- NOTE | 2018-08-15 11:59 | PCM.PN.ID ---
Subjective: Feeling better, no fever, picc placed. - Physical Exam General: Alert, Cooperative, No apparent distress Lungs: Clear to auscultation, Normal air movement Cardiovascular: Regular rate, Regular Rhythm Abdomen: Soft, Non Tender, Non-Distended Skin: Ulcer/ Wound Vital Signs Temp Pulse Resp BP Pulse Ox 98.2 F 59 L 16 121/60 H 94 08/15/18 09:25 08/15/18 11:17 08/15/18 09:25 08/15/18 09:25 08/15/18 09:25 Oxygen Flow Rate (L/min) 2 Oxygen Delivery Method Room Air Weight: 80.7 kg Body Mass Index (BMI) 25.5 Intake and Output for Last 24 Hours 08/13/18 08/14/18 08/15/18 23:59 23:59 23:59 Intake Total 1488 / 1488 2468.6 / 2468.6 127 / 127 Output Total 1725 / 1725 1625 / 1625 1775 / 1775 Balance -237 / -237 843.6 / 843.6 -1648 / -1648 Microbiology Past 72 Hours 08/11/18 13:43 Gram Stain - Final Wound - Heel Right Wound Culture - Final Burkholderia cepacia Anaerobic Culture - Final No anaerobic bacteria isolated. Laboratory Tests Past 24 Hrs 08/15/18 08/15/18 05:40 05:40 WBC 5.3 RBC 3.40 L Hgb 10.6 L Hct 33.4 L MCV 98.2 H MCH 31.2 MCHC 31.7 L RDW 13.4 RDW Differential 47.5 H Plt Count 191 MPV 9.3 Immature Gran % (Auto) 0.800 Neut % (Auto) 57.3 Lymph % (Auto) 29.0 Bibb % (Auto) 8.5 Eos % (Auto) 3.6 Baso % (Auto) 0.8 Absolute Neuts (auto) 3.0 Absolute Lymphs (auto) 1.53 Total Counted Not Reportable Sodium 145 Potassium 3.6 Chloride 107 Carbon Dioxide 31.0 Anion Gap 7 BUN 15 Creatinine 0.66 L Estim Creat Clear Calc 60.83 Est GFR (MDRD) Af Amer 149 Est GFR (MDRD) Non-Af 123 BUN/Creatinine Ratio 22.7 H Glucose 94 Calcium 8.3 L POC Glucose 08/15/18 08/15/18 08/14/18 11:20 06:44 22:30 POC Glucose 126 H 98 155 H 08/14/18 17:01 POC Glucose 112 H Medical Necessity - Tobacco Use Smoking Status: Never smoker Route of nutrition/ use of supplements: [] Nutritional Intake: [] IV Site: [] Wheeler Catheter: [] - Assessment/Plan Antibiotics: [] Assessment/Plan: [] Active and Suspected Problems (Last Reviewed 08/13/18 @ 10:19 by Fernando Patterson MD) Acute encephalopathy (Acute) Citrobacter pyelonephritis - on meropenem. Reports rash/hives with PCN. Not sure about cephalosporins. Improved. Fever resolved. Bilateral heel osteo - Dr. Quintana following. Wound cx with burkholderia. Plan on 6 week course of meropenem via picc, stop date 09/22/18, weekly bmp, cbc, lft, esr. h/o nocardia - bactrim for indefinite suppression Will follow, d/w case making machine operator, rx written for labs and abx.
--- NOTE | 2018-08-15 13:25 | NURSING ---
Called report to JENNIFER London at [facility] at this time.
== END 2018-08-15 14:12 | disposition skilled nursing facility (03) | DRG 698 ==
LOC: ED 21:05 → PCU 08-11 00:40
PROVIDERS: Internal Medicine; Nurse Practitioner Family; Psychiatry & Neurology Neurology; Admitting Provider Hospitalist; Emergency Provider Emergency Medicine; Family Provider Family Medicine; PCP Family Medicine; Visit Provider Internal Medicine
DX: T83.518A Infection and inflammatory reaction due to other urinary catheter, initial encounter (principal); G93.41 Metabolic encephalopathy; N30.00 Acute cystitis without hematuria; G82.20 Paraplegia, unspecified; M86.8X7 Other osteomyelitis, ankle and foot; G95.0 Syringomyelia and syringobulbia; B96.89 Other specified bacterial agents as the cause of diseases classified elsewhere; I10 Essential (primary) hypertension; G09 Sequelae of inflammatory diseases of central nervous system; L89.152 Pressure ulcer of sacral region, stage 2; L89.620 Pressure ulcer of left heel, unstageable; L89.610 Pressure ulcer of right heel, unstageable; E11.69 Type 2 diabetes mellitus with other specified complication; N31.9 Neuromuscular dysfunction of bladder, unspecified; Z98.2 Presence of cerebrospinal fluid drainage device; K59.00 Constipation, unspecified; I25.2 Old myocardial infarction; F32.9 Major depressive disorder, single episode, unspecified; Z79.84 Long term (current) use of oral hypoglycemic drugs; Z88.0 Allergy status to penicillin; I73.9 Peripheral vascular disease, unspecified
CPT/HCPCS: 36415; 36569; 51702; 70450; 71045; 73620; 73721; 80048; 80053; 80202; 81001; 82140; 82962; 83605; 83735; 85025; 85027; 85610; 85730; 87040; 87070; 87075; 87077; 87086; 87088; 87186; 87205; 87640; 87641; 93005; 93923; 97166; 97802; 99285; J2185; J7030; J7040; J7050; A4216

== ENCOUNTER 2018-08-22 13:43 | Outpatient (RCR) | payer SELFPAY ==
[2018-08-22 15:29] VITALS: BP 123/62; PULSE 62; RESP 16; TEMP 36; BMI 27.2
--- NOTE | 2018-08-22 17:34 | PN.PCM_ITS ---
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 layer exposed Status: Chronic Current Visit: Yes Code(s): L97.922 - Non-pressure chronic ulcer of unspecified part of left lower leg with fat layer exposed (5) Malnutrition Status: Chronic Current Visit: Yes Code(s): E46 - Unspecified protein- calorie malnutrition (6) Delayed wound healing Status: Chronic Current Visit: Yes Code(s): T14.8XXD - Other injury of unspecified body region, subsequent encounter (7) Edema leg Status: Chronic Current Visit: Yes Code(s): R60.0 - Localized edema (8) Paralysis Status: Chronic Current Visit: Yes Code(s): G83.9 - Paralytic syndrome, unspecified Type of Wound Date of Service: 08/22/18 Chief Complaint: Foot and leg pressure ulcers History of Wound: He resides at [facility]. He denies fever, chill, nausea, vomiting. He does have some loss of appetite. He does have this 82-year-old male with multiple comorbidities was seen at the wound healing center for pressure ulcers to both heels and legs. He has large black scabs in place. He was previously seen at [facility] by Dr. Quintana and was evaluated for cellulitis, osteomyelitis, and peripheral vascular disease. He was recently evaluated by Dr. Lagos who recommended amputations of the legs. He denies fever, chill, nausea, vomiting. He does have some occasional loss of appetite. He is a paraplegic and presents in a wheelchair today; he denies pain to the lower extremities. He continues work with physical therapy at the [facility]. He takes nutritional supplementation, Fred. He is with his family today. Progress of Wound: Stable - Physical Exam Vital Signs Temp Pulse Resp BP 96.8 F L 62 16 123/62 H 08/22/18 15:29 08/22/18 15:29 08/22/18 15:29 08/22/18 15:29 General: Alert, Oriented x3, Cooperative HEENT: Atraumatic Extremities: No cyanosis, No Calf Tenderness - Negative Ayanna and Ortega sign bilateral, Diminished Peripheral Pulses, Edema - Mild bilateral lower extremities, - - Delayed capillary refill time less than 4 seconds to all digits bilateral foot Skin: Ulcer/ Wound - no purulence, no erythema, streaking, no odor, no infection. There is dry well adhered eschar to bilateral heels and bilateral legs. The anterior left ankle ulcer site has a 100% fibrous base with no exposed tendon, bone, joint. The peripheral skin is very hairless and atrophic Wound Measurements and Assessment WC - Nurse 1 - General Ulcer Measurement Start: 08/22/18 14:18 Freq: Status: Active Protocol: Activity Type Activity Date Activity User E-Sign Co-Sign Detail Recorded Client Recorded Date Recorded By Document 08/22/18 15:29 DV [id number] 08/22/18 16:22 DV 08/22/18 15:29 Wound Center Nurse 1 [Ulcer Assessment] #6 Left Anterior Foot -Combined with other wound No -Current Size (cm) - Length 3.7 -Current Size (cm) - Width 1.2 -Current Size (cm) - Depth 0.3 -Total Square Cm 4.44 -Photo Taken Yes -Epithelialization None Present -Tunneling No -Undermining/Tunneling No -Circular Undermining No -Classification - Thickness Full Thickness without Exposed Support Structure -Exudate Amt None Present (0 %) -Wound Margin Indistinct, Non -Visible -Granulation Amt None Present (0 %) -Granulation Quality N/A -Necrosis Amt Large (67-100%) -Necrotic Tissue Type Adherent Slough -Structure Exposed N/A -Texture (Denisse-wound Skin Appearance) Assessed Scarring -Moisture (Denisse-wound Skin Appearance No Abnormality ) Assessed -Color (Denisse-wound Skin Appearance) Assessed Erythema Hemosiderin Staining -Temperature (Denisse-wound Skin No Abnormality Appearance) (Pt Warm) -Tenderness on Palpation (Denisse-wound No Skin Appearance) -Ulcer Cleansing Rinsed/ Irrigated with Saline -Foul Odor after Cleansing No -Anesthetic Used 4% Lidocaine Solution #5 Posterior LLE -Combined with other wound No -Current Size (cm) - Length 2.0 -Current Size (cm) - Width 2.7 -Current Size (cm) - Depth 0.2 -Total Square Cm 5.40 -Photo Taken No -Epithelialization None Present -Tunneling No -Undermining/Tunneling No -Circular Undermining No -Classification - Thickness Full Thickness without Exposed Support Structure -Change in Wound Grade/Stage Yes Query Text:If change please identify the Stage/Grade in the comment (ie. S2 G3) -Exudate Amt None Present (0 %) -Exudate Type Serosanguineous -Wound Margin Indistinct, Non -Visible -Granulation Amt None Present (0 %) -Granulation Quality N/A -Slough/Fibrin Yes -Necrosis Amt Large (67-100%) -Necrotic Tissue Type Adherent Slough -Structure Exposed None/Limited to Skin Breakdown -Texture (Denisse-wound Skin Appearance) Assessed Scarring -Moisture (Denisse-wound Skin Appearance Assessed ) -Color (Denisse-wound Skin Appearance) Assessed Hemosiderin Staining -Temperature (Denisse-wound Skin No Abnormality Appearance) (Pt Warm) -Ulcer Cleansing Not Cleansed -Foul Odor after Cleansing No -Anesthetic Used 4% Lidocaine Solution #4 Left Heel -Combined with other wound No -Current Size (cm) - Length 2.8 -Current Size (cm) - Width 6.0 -Current Size (cm) - Depth 0.1 -Total Square Cm 16.80 -Photo Taken No -Epithelialization None Present -Tunneling No -Undermining/Tunneling No -Circular Undermining No -Classification - Thickness Full Thickness without Exposed Support Structure -Exudate Amt None Present (0 %) -Exudate Type Serosanguineous -Wound Margin Indistinct, Non -Visible -Granulation Amt None Present (0 %) -Granulation Quality N/A -Slough/Fibrin Yes -Necrosis Amt Large (67-100%) -Necrotic Tissue Type Adherent Slough -Structure Exposed None/Limited to Skin Breakdown -Texture (Denisse-wound Skin Appearance) Assessed Scarring -Moisture (Denisse-wound Skin Appearance Assessed ) Weeping -Color (Denisse-wound Skin Appearance) Assessed Hemosiderin Staining -Temperature (Denisse-wound Skin No Abnormality Appearance) (Pt Warm) -Tenderness on Palpation (Denisse-wound No Skin Appearance) -Ulcer Cleansing Rinsed/ Irrigated with Saline -Foul Odor after Cleansing No -Anesthetic Used 4% Lidocaine Solution #3 Right Heel -Combined with other wound No -Current Size (cm) - Length 1.7 -Current Size (cm) - Width 1.4 -Current Size (cm) - Depth 0.1 -Total Square Cm 2.38 -Photo Taken Yes -Epithelialization None Present -Tunneling No -Undermining/Tunneling No -Circular Undermining No -Classification - Thickness Full Thickness without Exposed Support Structure -Exudate Amt Large (67-100%) -Exudate Type Serosanguineous -Wound Margin Indistinct, Non -Visible -Granulation Amt None Present (0 %) -Granulation Quality N/A -Slough/Fibrin Yes -Necrosis Amt Large (67-100%) -Necrotic Tissue Type Adherent Slough -Structure Exposed None/Limited to Skin Breakdown -Texture (Denisse-wound Skin Appearance) Assessed Rash -Moisture (Denisse-wound Skin Appearance Assessed ) Weeping -Color (Denisse-wound Skin Appearance) Assessed Erythema Hemosiderin Staining -Temperature (Denisse-wound Skin No Abnormality Appearance) (Pt Warm) -Ulcer Cleansing Rinsed/ Irrigated with Saline -Foul Odor after Cleansing No -Anesthetic Used 4% Lidocaine Solution #2 Right Lateral Ankle -Combined with other wound No -Current Size (cm) - Length 3.0 -Current Size (cm) - Width 3.7 -Current Size (cm) - Depth 0.2 -Total Square Cm 11.10 -Photo Taken Yes -Epithelialization None Present -Tunneling No -Undermining/Tunneling No -Circular Undermining No -Classification - Thickness Full Thickness without Exposed Support Structure -Exudate Amt None Present (0 %) -Wound Margin Indistinct, Non -Visible -Granulation Amt None Present (0 %) -Granulation Quality N/A -Slough/Fibrin Yes -Necrosis Amt Large (67-100%) -Necrotic Tissue Type Eschar -Structure Exposed None/Limited to Skin Breakdown -Texture (Denisse-wound Skin Appearance) Assessed Localized Edema Scarring -Moisture (Denisse-wound Skin Appearance Assessed ) Weeping -Color (Denisse-wound Skin Appearance) Assessed Erythema Hemosiderin Staining -Temperature (Denisse-wound Skin No Abnormality Appearance) (Pt Warm) -Tenderness on Palpation (Denisse-wound No Skin Appearance) -Ulcer Cleansing Rinsed/ Irrigated with Saline -Foul Odor after Cleansing No -Anesthetic Used 4% Lidocaine Solution [Edema Assessment] -Lower Limb Edema Present No -Right Calf (cm) 32.0 -Right Ankle (cm) 23.0 -Left Calf (cm) 35.7 -Left Ankle (cm) 23.9 WC - Nurse 2 - General Ulcer CM Notes Start: 08/22/18 14:18 Freq: Status: Active Protocol: Activity Type Activity Date Activity User E-Sign Co-Sign Detail Recorded Client Recorded Date Recorded By Document 08/22/18 16:57 [id number] 08/22/18 17:04 08/22/18 16:57 Wound Center Nurse 2 [Procedure/Treatment] #6 Left Anterior Foot -Time 16:57 -Correct Patient Yes -Correct Side, Site, Position Yes -Correct Procedure Yes -Procedure Performed Yes -Post Debridement Size (cm) - Length 3.7 -Post Debridement Size (cm) - Width 1.2 -Post Debridement Size (cm) - Depth 0.3 -Total Square Cm 4.44 -Wound/Ulcer Outcome Not Healed -Ulcer Cleansing Rinsed/ Irrigated with Saline -Foul Odor after Cleansing No -Bioengineered Tissue No -Topical Lidocaine (%) 5 -Bleeding Controlled with NA -Treatment Response Procedure Tolerated Well #5 Posterior LLE -Time 16:58 -Correct Patient Yes -Correct Side, Site, Position Yes -Correct Procedure Yes -Procedure Performed Yes -Post Debridement Size (cm) - Length 2.0 -Post Debridement Size (cm) - Width 2.7 -Post Debridement Size (cm) - Depth 0.2 -Total Square Cm 5.40 -Wound/Ulcer Outcome Not Healed -Ulcer Cleansing Rinsed/ Irrigated with Saline -Foul Odor after Cleansing No -Bioengineered Tissue No -Topical Lidocaine (%) 5 -Bleeding Controlled with NA -Treatment Response Procedure Tolerated Well #4 Left Heel -Time 16:58 -Correct Patient Yes -Correct Side, Site, Position Yes -Correct Procedure Yes -Procedure Performed Yes -Post Debridement Size (cm) - Length 1.7 -Post Debridement Size (cm) - Width 1.4 -Post Debridement Size (cm) - Depth 0.1 -Total Square Cm 2.38 -Wound/Ulcer Outcome Not Healed -Ulcer Cleansing Rinsed/ Irrigated with Saline -Foul Odor after Cleansing No -Bioengineered Tissue No -Topical Lidocaine (%) 5 -Bleeding Controlled with NA -Treatment Response Procedure Tolerated Well #3 Right Heel -Time 16:59 -Correct Patient Yes -Correct Side, Site, Position Yes -Correct Procedure Yes -Procedure Performed Yes -Post Debridement Size (cm) - Length 2.8 -Post Debridement Size (cm) - Width 6.0 -Post Debridement Size (cm) - Depth 0.1 -Total Square Cm 16.80 -Wound/Ulcer Outcome Not Healed -Ulcer Cleansing Rinsed/ Irrigated with Saline -Foul Odor after Cleansing No -Bioengineered Tissue No -Topical Lidocaine (%) 5 -Bleeding Controlled with NA -Treatment Response Procedure Tolerated Well #2 Right Lateral Ankle -Time 16:59 -Correct Patient Yes -Correct Side, Site, Position Yes -Correct Procedure Yes -Procedure Performed Yes -Post Debridement Size (cm) - Length 3.0 -Post Debridement Size (cm) - Width 3.7 -Post Debridement Size (cm) - Depth 0.2 -Total Square Cm 11.10 -Wound/Ulcer Outcome Not Healed -Ulcer Cleansing Rinsed/ Irrigated with Saline -Foul Odor after Cleansing No -Bioengineered Tissue No -Topical Lidocaine (%) 5 -Bleeding Controlled with NA -Treatment Response Procedure Tolerated Well [See Physician Procedure note for Specifics] Musculoskeletal: No Tenderness to Palpation of Joints or Extremities, Muscle Wasting, - - Paralysis with 0 out of 5 muscle strength bilateral lower extremities. Wheelchair noted. Compartments of bilateral lower extremities remain soft and there is no fluctuance on palpation Neurological: - - Lack of epicritic sensation light touch noted bilateral lower extremities Psych/Mental Status: Normal Affect, Appropriate Debridement Note Post-Debridement Measurements/Treatment WC - Nurse 2 - General Ulcer CM Notes Start: 08/22/18 14:18 Freq: Status: Active Protocol: Activity Type Activity Date Activity User E-Sign Co-Sign Detail Recorded Client Recorded Date Recorded By Document 08/22/18 16:57 [id number] 08/22/18 17:04 TM 08/22/18 16:57 Wound Center Nurse 2 #6 Left Anterior Foot -Time 16:57 -Correct Patient Yes -Correct Side, Site, Position Yes -Correct Procedure Yes -Procedure Performed Yes -Post Debridement Size (cm) - Length 3.7 -Post Debridement Size (cm) - Width 1.2 -Post Debridement Size (cm) - Depth 0.3 -Total Square Cm 4.44 -Wound/Ulcer Outcome Not Healed -Ulcer Cleansing Rinsed/ Irrigated with Saline -Foul Odor after Cleansing No -Bioengineered Tissue No -Topical Lidocaine (%) 5 -Bleeding Controlled with NA -Treatment Response Procedure Tolerated Well #5 Posterior LLE -Time 16:58 -Correct Patient Yes -Correct Side, Site, Position Yes -Correct Procedure Yes -Procedure Performed Yes -Post Debridement Size (cm) - Length 2.0 -Post Debridement Size (cm) - Width 2.7 -Post Debridement Size (cm) - Depth 0.2 -Total Square Cm 5.40 -Wound/Ulcer Outcome Not Healed -Ulcer Cleansing Rinsed/ Irrigated with Saline -Foul Odor after Cleansing No -Bioengineered Tissue No -Topical Lidocaine (%) 5 -Bleeding Controlled with NA -Treatment Response Procedure Tolerated Well #4 Left Heel -Time 16:58 -Correct Patient Yes -Correct Side, Site, Position Yes -Correct Procedure Yes -Procedure Performed Yes -Post Debridement Size (cm) - Length 1.7 -Post Debridement Size (cm) - Width 1.4 -Post Debridement Size (cm) - Depth 0.1 -Total Square Cm 2.38 -Wound/Ulcer Outcome Not Healed -Ulcer Cleansing Rinsed/ Irrigated with Saline -Foul Odor after Cleansing No -Bioengineered Tissue No -Topical Lidocaine (%) 5 -Bleeding Controlled with NA -Treatment Response Procedure Tolerated Well #3 Right Heel -Time 16:59 -Correct Patient Yes -Correct Side, Site, Position Yes -Correct Procedure Yes -Procedure Performed Yes -Post Debridement Size (cm) - Length 2.8 -Post Debridement Size (cm) - Width 6.0 -Post Debridement Size (cm) - Depth 0.1 -Total Square Cm 16.80 -Wound/Ulcer Outcome Not Healed -Ulcer Cleansing Rinsed/ Irrigated with Saline -Foul Odor after Cleansing No -Bioengineered Tissue No -Topical Lidocaine (%) 5 -Bleeding Controlled with NA -Treatment Response Procedure Tolerated Well #2 Right Lateral Ankle -Time 16:59 -Correct Patient Yes -Correct Side, Site, Position Yes -Correct Procedure Yes -Procedure Performed Yes -Post Debridement Size (cm) - Length 3.0 -Post Debridement Size (cm) - Width 3.7 -Post Debridement Size (cm) - Depth 0.2 -Total Square Cm 11.10 -Wound/Ulcer Outcome Not Healed -Ulcer Cleansing Rinsed/ Irrigated with Saline -Foul Odor after Cleansing No -Bioengineered Tissue No -Topical Lidocaine (%) 5 -Bleeding Controlled with NA -Treatment Response Procedure Tolerated Well No debridement was completed today - I recommend confirming vascular perfusion prior to performing any debridements Assessment/Plan Active Problems (Last Reviewed 08/13/18 @ 10:19 by Fernando Patterson MD) Other specified peripheral vascular diseases (Chronic) Unstageable pressure ulcer of left foot (Chronic) Unstageable pressure ulcer of right foot (Chronic) Ulcer of left lower extremity with fat layer exposed (Chronic) Malnutrition (Chronic) Delayed wound healing (Chronic) Edema leg (Chronic) Paralysis (Chronic) Assessment: Right lateral ankle unstageable pressure ulcer, no cellulitis. Right heel unstageable pressure ulcer, no cellulitis. Left heel unstageable pressure ulcer no cellulitis. Left posterior leg unstageable pressure ulcer no cellulitis. Anterior left ankle ulcer with fat layer exposed. Peripheral vascular disease with rest pain. Other comorbidities. Delayed healing. Malnutrition. Paralysis and gait impairment with wheelchair use Plan: I reviewed and discussed his case today. I reviewed her chart review from his recent hospital admission. His ulcer sites were debrided due to lack of perfusion. He had recent noninvasive vascular studies performed approximately 1/2 weeks ago which demonstrated noncompressible vessels in which ankle-brachial indices were not calculated. This is consistent with rest pain as well as multisegmental occlusive disease and vessel calcification. His labs on er include a white blood cell count 5.3, ESR 38, C-reactive protein 5.23, and albumin 2.5. His ulcer sites appear fairly stable and I recommend he complete a 6-week course of IV antibiotics; he is under the management of infectious disease. 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 The cellulitic clinical presentation has resolved compared to his most recent hospital admission. I recommend strict offloading to keep pressure off of these friable areas. Bilateral donut pillow prescription was provided and he was advised on how to obtain this. To changed dressing to all sites daily with Santyl applied in nickel thickness. The alf facility will help assist him with this. It is okay to transfer with bilateral surgical shoes which were ordered today and while he is working with physical therapy. To avoid soaking. It is okay to elevate the limbs only for very minimal time due to the concern of lack of arterial perfusion. He was previously seen and evaluated by Dr. Lagos who does not recommend vascular surgery at this time; amputation was offered. The patient is interested in a second opinion and a referral was provided today. He understands that he is at significant risk for limb loss and our goal at this time is to control any infectious process and establish a clear level of perfusion. He asked of hyperbaric oxygen therapy as a treatment option. I explained to him the indications, process, and anticipated management. If he has a gross lack of perfusion to the limbs he is not an appropriate hyperbaric oxygen therapy candidate and we will both through his vascular surgery second opinion prior to proceeding forward with any screening process. To continue with nutritional supplementation, Fred. I recommend he follows up the wound healing center 1 week or call sooner if he has any questions or concerns. I answered all his questions.
== END 2018-08-26 23:59 ==
LOC: WC 13:43
PROVIDERS: Family Provider Family Medicine; PCP Family Medicine; Visit Provider Podiatrist
DX: I73.89 Other specified peripheral vascular diseases (principal); L89.610 Pressure ulcer of right heel, unstageable; L89.620 Pressure ulcer of left heel, unstageable; L89.510 Pressure ulcer of right ankle, unstageable; L97.322 Non-pressure chronic ulcer of left ankle with fat layer exposed; R60.0 Localized edema; G83.9 Paralytic syndrome, unspecified
CPT/HCPCS: 97602; 99213; G0463

== ENCOUNTER 2018-09-26 13:15 | Outpatient (RCR) | payer MEDICARE, OTHER, SELFPAY ==
[2018-08-27 01:47] VITALS: BP 123/62; PULSE 62; RESP 16; TEMP 36
[2018-08-28 13:55] VITALS: BP 118/62; PULSE 60; RESP 18; TEMP 36.3
--- NOTE | 2018-08-28 16:23 | PCM.WC.PN ---
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 layer exposed Status: Chronic Current Visit: Yes Code(s): L97.922 - Non-pressure chronic ulcer of unspecified part of left lower leg with fat layer exposed (5) Malnutrition Status: Chronic Current Visit: Yes Code(s): E46 - Unspecified protein-calorie malnutrition (6) Delayed wound healing Status: Chronic Current Visit: Yes Code(s): T14.8XXD - Other injury of unspecified body region, subsequent encounter (7) Edema leg Status: Chronic Current Visit: Yes Code(s): R60.0 - Localized edema (8) Paralysis Status: Chronic Current Visit: Yes Code(s): G83.9 - Paralytic syndrome, unspecified (9) Osteomyelitis Status: Acute Current Visit: Yes Code(s): M86.9 - Osteomyelitis, unspecified Type of Wound Date of Service: 08/28/18 Chief Complaint: Foot and leg pressure ulcers History of Wound: He resides at [facility]. He denies fever, chill, nausea, vomiting. He does have some loss of appetite. He does have this 82-year-old male with multiple comorbidities was seen at the wound healing center for pressure ulcers to both heels and legs. He has large black scabs in place. He was recently evaluated by Dr. Lagos who recommended amputations of the legs. He is now tentatively scheduled to go for a second opinion with Dr. De Anda. He denies fever, chill, nausea, vomiting. He is a paraplegic and presents in a wheelchair. He continues to take Fred supplementation. He did obtain bilateral donor offloading pillows and this helps keep pressure off the sites. He is with his family today. Progress of Wound: Stable - Physical Exam Vital Signs Temp Pulse Resp BP 97.3 F L 60 18 118/62 08/28/18 13:55 10/02/18 13:55 08/28/18 13:55 08/28/18 13:55 General: Alert, Oriented x3, Cooperative Extremities: No Calf Tenderness - Negative Ayanna and Ortega sign, Diminished Peripheral Pulses, Edema - Mild bilateral lower extremities, - - Capillary fill time delayed less than 4 seconds to bilateral feet Skin: Ulcer/ Wound - No purulence, erythema, streaking, odor, infection. There is eschar formation to the ulcer sites that are dry and well adhered. The anterior left ankle wound is 100% fibrous base and also appears to be ischemic. The peripheral skin is hairless and atrophic bilateral Wound Measurements and Assessment WC - Nurse 1 - General Ulcer Measurement Start: 08/28/18 13:55 Freq: Status: Active Protocol: Activity Type Activity Date Activity User E-Sign Co-Sign Detail Recorded Client Recorded Date Recorded By Document 08/28/18 13:55 RB [id number] 08/28/18 14:15 RB 08/28/18 13:55 Wound Center Nurse 1 [Ulcer Assessment] #6 Left Anterior Foot -Combined with other wound No -Current Size (cm) - Length 3.3 -Current Size (cm) - Width 1.8 -Current Size (cm) - Depth 0.2 -Total Square Cm 5.94 -Tunneling No -Undermining/Tunneling No -Circular Undermining No -Classification - Thickness Full Thickness without Exposed Support Structure -Exudate Amt Small (1-33%) -Exudate Type Serosanguineous -Wound Margin Distinct, Outline Attached -Granulation Amt Small (1-33%) -Granulation Quality [place] -Slough/Fibrin Yes -Necrosis Amt Large (67-100%) -Necrotic Tissue Type Adherent Slough -Structure Exposed N/A -Texture (Denisse-wound Skin Appearance) Assessed -Moisture (Denisse-wound Skin Appearance Assessed ) -Color (Denisse-wound Skin Appearance) Assessed -Temperature (Denisse-wound Skin No Abnormality Appearance) (Pt Warm) -Tenderness on Palpation (Denisse-wound No Skin Appearance) -Ulcer Cleansing Rinsed/ Irrigated with Saline -Foul Odor after Cleansing No -Anesthetic Used 4% Lidocaine Solution #5 Posterior LLE -Combined with other wound No -Current Size (cm) - Length 4 -Current Size (cm) - Width 3 -Current Size (cm) - Depth 0.2 -Total Square Cm 12 -Photo Taken No -Tunneling No -Undermining/Tunneling No -Circular Undermining No -Classification - Thickness Full Thickness without Exposed Support Structure -Exudate Amt Small (1-33%) -Exudate Type Serosanguineous -Wound Margin Distinct, Outline Attached -Granulation Amt Small (1-33%) -Granulation Quality [place] -Necrosis Amt Medium (34-66%) -Necrotic Tissue Type Eschar -Texture (Denisse-wound Skin Appearance) Assessed -Moisture (Denisse-wound Skin Appearance Assessed ) -Color (Denisse-wound Skin Appearance) Assessed -Temperature (Denisse-wound Skin No Abnormality Appearance) (Pt Warm) -Tenderness on Palpation (Denisse-wound No Skin Appearance) -Foul Odor after Cleansing No -Anesthetic Used 4% Lidocaine Solution #4 Left Heel -Combined with other wound No -Current Size (cm) - Length 1 -Current Size (cm) - Width 0.5 -Current Size (cm) - Depth 0.1 -Total Square Cm 0.5 -Photo Taken No -Tunneling No -Undermining/Tunneling No -Circular Undermining No -Classification - Thickness Full Thickness without Exposed Support Structure -Exudate Amt Small (1-33%) -Exudate Type Serosanguineous -Wound Margin Distinct, Outline Attached -Granulation Amt Small (1-33%) -Granulation Quality [place] -Slough/Fibrin Yes -Necrosis Amt Large (67-100%) -Necrotic Tissue Type Adherent Slough -Structure Exposed N/A -Texture (Denisse-wound Skin Appearance) Assessed -Moisture (Denisse-wound Skin Appearance Assessed ) -Color (Denisse-wound Skin Appearance) Assessed -Temperature (Denisse-wound Skin No Abnormality Appearance) (Pt Warm) -Tenderness on Palpation (Denisse-wound No Skin Appearance) -Ulcer Cleansing Rinsed/ Irrigated with Saline -Foul Odor after Cleansing No -Anesthetic Used 4% Lidocaine Solution #3 Right Heel -Combined with other wound No -Current Size (cm) - Length 3 -Current Size (cm) - Width 5 -Current Size (cm) - Depth 0.1 -Total Square Cm 15 -Photo Taken No -Tunneling No -Undermining/Tunneling No -Circular Undermining No -Classification - Thickness Full Thickness without Exposed Support Structure -Exudate Amt None Present (0 %) -Exudate Type Serosanguineous -Wound Margin Distinct, Outline Attached -Granulation Amt Medium (34-66%) -Granulation Quality [place] -Slough/Fibrin Yes -Necrosis Amt Medium (34-66%) -Necrotic Tissue Type Adherent Slough -Structure Exposed N/A -Texture (Denisse-wound Skin Appearance) Assessed -Moisture (Denisse-wound Skin Appearance Assessed ) -Color (Denisse-wound Skin Appearance) Assessed -Temperature (Denisse-wound Skin No Abnormality Appearance) (Pt Warm) -Tenderness on Palpation (Denisse-wound No Skin Appearance) -Ulcer Cleansing Rinsed/ Irrigated with Saline -Foul Odor after Cleansing No -Anesthetic Used 4% Lidocaine Solution #2 Right Lateral Ankle -Combined with other wound No -Current Size (cm) - Length 2.5 -Current Size (cm) - Width 2.5 -Current Size (cm) - Depth 0.2 -Total Square Cm 6.25 -Photo Taken No -Tunneling No -Undermining/Tunneling No -Circular Undermining No -Classification - Thickness Full Thickness without Exposed Support Structure -Exudate Amt Small (1-33%) -Exudate Type Serosanguineous -Wound Margin Distinct, Outline Attached -Granulation Amt Small (1-33%) -Granulation Quality [place] -Slough/Fibrin Yes -Necrosis Amt Large (67-100%) -Necrotic Tissue Type Eschar -Texture (Denisse-wound Skin Appearance) Assessed -Moisture (Denisse-wound Skin Appearance Assessed ) -Color (Denisse-wound Skin Appearance) Assessed -Temperature (Denisse-wound Skin No Abnormality Appearance) (Pt Warm) -Tenderness on Palpation (Denisse-wound No Skin Appearance) -Ulcer Cleansing Rinsed/ Irrigated with Saline -Foul Odor after Cleansing No -Anesthetic Used 4% Lidocaine Solution [Edema Assessment] -Lower Limb Edema Present Yes -Right Calf (cm) 31 -Right Ankle (cm) 23 -Left Calf (cm) 31 -Left Ankle (cm) 22.5 WC - Nurse 2 - General Ulcer CM Notes Start: 08/28/18 13:55 Freq: Status: Active Protocol: Activity Type Activity Date Activity User E-Sign Co-Sign Detail Recorded Client Recorded Date Recorded By Document 08/28/18 14:54 JF [id number] 08/28/18 14:56 CAMERON 08/28/18 14:54 Wound Center Nurse 2 [Procedure/Treatment] #6 Left Anterior Foot -Correct Patient No -Correct Side, Site, Position No -Correct Procedure No -Procedure Performed No -Wound/Ulcer Outcome Not Healed -Bleeding Controlled with NA #5 Posterior LLE -Correct Patient No -Correct Side, Site, Position No -Correct Procedure No -Procedure Performed No -Wound/Ulcer Outcome Not Healed -Bleeding Controlled with NA #4 Left Heel -Correct Patient No -Correct Side, Site, Position No -Correct Procedure No -Procedure Performed No -Wound/Ulcer Outcome Not Healed -Bleeding Controlled with NA #3 Right Heel -Correct Patient No -Correct Side, Site, Position No -Correct Procedure No -Procedure Performed No -Wound/Ulcer Outcome Not Healed -Bleeding Controlled with NA #2 Right Lateral Ankle -Correct Patient No -Correct Side, Site, Position No -Correct Procedure No -Procedure Performed No -Wound/Ulcer Outcome Not Healed -Bleeding Controlled with NA [See Physician Procedure note for Specifics] Pain Scale: 0-10 Numeric [Pain] -Is Patient Pain Free? Yes Musculoskeletal: No Tenderness to Palpation of Joints or Extremities, Muscle Wasting Neurological: - - No sensation available bilateral lower extremities Psych/Mental Status: Normal Affect, Appropriate Debridement Note Post-Debridement Measurements/Treatment WC - Nurse 2 - General Ulcer CM Notes Start: 08/28/18 13:55 Freq: Status: Active Protocol: Activity Type Activity Date Activity User E-Sign Co-Sign Detail Recorded Client Recorded Date Recorded By Document 08/28/18 14:54 JF [id number] 08/28/18 14:56 JF 08/28/18 14:54 Wound Center Nurse 2 #6 Left Anterior Foot -Correct Patient No -Correct Side, Site, Position No -Correct Procedure No -Procedure Performed No -Wound/Ulcer Outcome Not Healed -Bleeding Controlled with NA #5 Posterior LLE -Correct Patient No -Correct Side, Site, Position No -Correct Procedure No -Procedure Performed No -Wound/Ulcer Outcome Not Healed -Bleeding Controlled with NA #4 Left Heel -Correct Patient No -Correct Side, Site, Position No -Correct Procedure No -Procedure Performed No -Wound/Ulcer Outcome Not Healed -Bleeding Controlled with NA #3 Right Heel -Correct Patient No -Correct Side, Site, Position No -Correct Procedure No -Procedure Performed No -Wound/Ulcer Outcome Not Healed -Bleeding Controlled with NA #2 Right Lateral Ankle -Correct Patient No -Correct Side, Site, Position No -Correct Procedure No -Procedure Performed No -Wound/Ulcer Outcome Not Healed -Bleeding Controlled with NA Pain Scale: 0-10 Numeric Is Patient Pain Free? 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 Right heel unstageable pressure ulcer, no cellulitis. Left heel unstageable pressure ulcer no cellulitis. Left posterior leg unstageable pressure ulcer no cellulitis. Anterior left ankle ulcer with fat layer exposed. Peripheral vascular disease with rest pain. Other comorbidities. Delayed healing. Malnutrition. Paralysis and gait impairment with wheelchair use Plan: I reviewed and discussed his case today. His ulcer sites were not debrided due to lack of perfusion. He had recent noninvasive vascular studies performed approximately 1/2 weeks ago which demonstrated noncompressible vessels in which ankle-brachial indices were not calculated. This is consistent with rest pain as well as multisegmental occlusive disease and vessel calcification. His labs on August 17 include a white blood cell count 5.3, ESR 38, C-reactive protein 5.23, and albumin 2.5. His ulcer sites appear fairly stable and I recommend he complete a 6-week course of IV antibiotics; he is under the management of infectious disease. 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 The cellulitic clinical presentation has resolved compared to his most recent hospital admission. I recommend strict offloading to keep pressure off of these friable areas. To continue bilateral donut pillows. To changed dressing to all sites daily with Santyl applied in nickel thickness. The correction facility will help assist him with this. It is okay to transfer with bilateral surgical shoes which were ordered today and while he is working with physical therapy. To avoid soaking. It is okay to elevate the limbs only for very minimal time due to the concern of lack of arterial perfusion. He was previously seen and evaluated by Dr. Lagos who does not recommend vascular surgery at this time; amputation was offered. The patient is interested in a second opinion and a referral was provided today. He is scheduled. He understands that he is at significant risk for limb loss and our goal at this time is to control any infectious process and establish a clear level of perfusion. He asked if hyperbaric oxygen therapy as a treatment option. I explained to him the indications, process, and anticipated management. If he has a gross lack of perfusion to the limbs he is not an appropriate hyperbaric oxygen therapy candidate and we will both through his vascular surgery second opinion prior to proceeding forward with any screening process. To continue with nutritional supplementation, Fred. I recommend he follows up the wound healing center 1 week or call sooner if he has any questions or concerns. I answered all his questions.
[2018-09-05 11:19] VITALS: BP 120/60; PULSE 61; RESP 18; TEMP 36.6
--- NOTE | 2018-09-05 12:26 | PN.PCM_ITS ---
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 layer exposed Status: Chronic Current Visit: Yes Code(s): L97.922 - Non-pressure chronic ulcer of unspecified part of left lower leg with fat layer exposed (5) Malnutrition Status: Chronic Current Visit: Yes Code(s): E46 - Unspecified protein- calorie malnutrition (6) Delayed wound healing Status: Chronic Current Visit: Yes Code(s): T14.8XXD - Other injury of unspecified body region, subsequent encounter (7) Edema leg Status: Chronic Current Visit: Yes Code(s): R60.0 - Localized edema (8) Paralysis Status: Chronic Current Visit: Yes Code(s): G83.9 - Paralytic syndrome, unspecified (9) Osteomyelitis Status: Acute Current Visit: Yes Code(s): M86.9 - Osteomyelitis, unspecified Type of Wound Date of Service: 09/05/18 Chief Complaint: Foot and leg pressure ulcers History of Wound: He resides at [facility]. He denies fever, chill, nausea, vomiting. He does have some loss of appetite. He does have this 82-year-old male with multiple comorbidities was seen at the wound healing center for pressure ulcers to both heels and legs. He has large black scabs in place. He was recently evaluated by Dr. Lagos who recommended amputations of the legs. He is now tentatively scheduled to go for a second opinion with Dr. De Anda; this evaluation still pending. He denies fever, chill, nausea, vomiting. He is a paraplegic and presents in a wheelchair. He continues to take Fred supplementation. He did obtain bilateral donor offloading pillows and this helps keep pressure off the sites. He is with his family today. There is concern of a new pressure site to the right leg and there is no drainage at this site. Progress of Wound: Stable - Physical Exam Vital Signs Temp Pulse Resp BP 97.8 F 61 18 120/60 09/05/18 11:19 09/05/18 11:19 09/05/18 11:19 09/05/18 11:19 General: Alert, Oriented x3, Cooperative Extremities: No cyanosis, No edema, Capillary Refill Less than 3 Seconds, No Calf Tenderness - Negative Ayanna and Ortega sign bilateral, Diminished Peripheral Pulses, Edema - Mild bilateral lower extremities, Tenderness - No pain with wound manipulation bilateral, - - Paralysis bilateral lower extremities. Presents in wheelchair. Skin: Ulcer/ Wound - No purulence, erythema, streaking, odor, exposed deep tissue bilateral. The anterior left ankle ulcer site is fibrous without tendon exposed. All other sites are well adhered dry eschar without any loosening noted. There is some non-blanchable skin with some deep tissue injury noted to the lateral posterior right lower leg; no drainage or blister formation or ulcer site noted, - - The peripheral skin is hairless and atrophic bilateral Wound Measurements and Assessment WC - Nurse 1 - General Ulcer Measurement Start: 08/28/18 13:55 Freq: Status: Active Protocol: Activity Type Activity Date Activity User E-Sign Co-Sign Detail Recorded Client Recorded Date Recorded By Document 09/05/18 11:19 DL [id number] 09/05/18 11:37 DL 09/05/18 11:19 Wound Center Nurse 1 [Ulcer Assessment] #6 Left Anterior Foot -Current Size (cm) - Length 2.3 -Current Size (cm) - Width 0.7 -Current Size (cm) - Depth 0.2 -Total Square Cm 1.61 -Photo Taken No -Exudate Amt Small (1-33%) -Exudate Type Serosanguineous -Wound Margin Distinct, Outline Attached -Granulation Amt None Present (0 %) -Necrosis Amt Large (67-100%) -Necrotic Tissue Type Adherent Slough -Texture (Denisse-wound Skin Appearance) Scarring -Moisture (Denisse-wound Skin Appearance Dry/Scaly ) -Color (Denisse-wound Skin Appearance) Hemosiderin Staining Mottled -Temperature (Denisse-wound Skin No Abnormality Appearance) (Pt Warm) -Ulcer Cleansing Wound Cleanser -Foul Odor after Cleansing No -Anesthetic Used 4% Lidocaine Solution #5 Posterior LLE -Current Size (cm) - Length 2.1 -Current Size (cm) - Width 2.1 -Current Size (cm) - Depth 0.2 -Total Square Cm 4.41 -Photo Taken No -Exudate Amt Small (1-33%) -Exudate Type Serosanguineous -Wound Margin Distinct, Outline Attached -Granulation Amt Medium (34-66%) -Granulation Quality Red -Necrosis Amt Medium (34-66%) -Necrotic Tissue Type Adherent Slough -Structure Exposed N/A -Texture (Denisse-wound Skin Appearance) Scarring -Moisture (Denisse-wound Skin Appearance Dry/Scaly ) -Color (Denisse-wound Skin Appearance) Hemosiderin Staining Mottled -Temperature (Denisse-wound Skin No Abnormality Appearance) (Pt Warm) -Ulcer Cleansing Wound Cleanser -Foul Odor after Cleansing No -Anesthetic Used 4% Lidocaine Solution #4 Left Heel -Current Size (cm) - Length 0.6 -Current Size (cm) - Width 0.7 -Current Size (cm) - Depth 0.1 -Total Square Cm 0.42 -Photo Taken No -Exudate Amt None Present (0 %) -Wound Margin Distinct, Outline Attached -Granulation Amt None Present (0 %) -Necrosis Amt Large (67-100%) -Necrotic Tissue Type Eschar -Texture (Denisse-wound Skin Appearance) Localized Edema Scarring -Moisture (Denisse-wound Skin Appearance Dry/Scaly ) -Color (Denisse-wound Skin Appearance) Hemosiderin Staining Mottled -Temperature (Denisse-wound Skin No Abnormality Appearance) (Pt Warm) -Tenderness on Palpation (Denisse-wound No Skin Appearance) -Ulcer Cleansing Wound Cleanser -Foul Odor after Cleansing No -Anesthetic Used 4% Lidocaine Solution #3 Right Heel -Current Size (cm) - Length 2.7 -Current Size (cm) - Width 7 -Current Size (cm) - Depth 0.2 -Total Square Cm 18.9 -Photo Taken No -Exudate Amt Small (1-33%) -Exudate Type Serosanguineous -Wound Margin Distinct, Outline Attached -Granulation Amt Small (1-33%) -Granulation Quality [place] -Necrosis Amt Large (67-100%) -Necrotic Tissue Type Eschar -Structure Exposed N/A -Texture (Denisse-wound Skin Appearance) Localized Edema Scarring -Moisture (Denisse-wound Skin Appearance Dry/Scaly ) -Color (Denisse-wound Skin Appearance) Hemosiderin Staining Mottled -Temperature (Denisse-wound Skin No Abnormality Appearance) (Pt Warm) -Ulcer Cleansing Wound Cleanser -Foul Odor after Cleansing No -Anesthetic Used 4% Lidocaine Solution #2 Right Lateral Ankle -Current Size (cm) - Length 3 -Current Size (cm) - Width 2.3 -Current Size (cm) - Depth 0.3 -Total Square Cm 6.9 -Photo Taken No -Exudate Amt Small (1-33%) -Exudate Type Serosanguineous -Wound Margin Thickened -Granulation Amt Small (1-33%) -Granulation Quality [place] -Necrosis Amt Large (67-100%) -Necrotic Tissue Type Eschar -Structure Exposed N/A -Texture (Denisse-wound Skin Appearance) Localized Edema Scarring -Moisture (Denisse-wound Skin Appearance Dry/Scaly ) -Color (Denisse-wound Skin Appearance) Hemosiderin Staining Mottled -Temperature (Denisse-wound Skin No Abnormality Appearance) (Pt Warm) -Ulcer Cleansing Wound Cleanser -Foul Odor after Cleansing No -Anesthetic Used 4% Lidocaine Solution [Edema Assessment] -Right Calf (cm) 29.5 -Right Ankle (cm) 21.5 -Left Calf (cm) 30.5 -Left Ankle (cm) 22.3 WC - Nurse 2 - General Ulcer CM Notes Start: 08/28/18 13:55 Freq: Status: Active Protocol: Activity Type Activity Date Activity User E-Sign Co-Sign Detail Recorded Client Recorded Date Recorded By Document 09/05/18 12:01 DV [id number] 09/05/18 12:02 DV 09/05/18 12:01 Wound Center Nurse 2 [Procedure/Treatment] #6 Left Anterior Foot -Time 12:01 -Correct Patient Yes -Correct Side, Site, Position Yes -Procedure Performed No -Wound/Ulcer Outcome Not Healed #5 Posterior LLE -Time 12:01 -Correct Patient Yes -Correct Side, Site, Position Yes -Procedure Performed No -Wound/Ulcer Outcome Not Healed #4 Left Heel -Time 12:01 -Correct Patient Yes -Correct Side, Site, Position Yes -Procedure Performed No -Wound/Ulcer Outcome Not Healed #3 Right Heel -Time 12:01 -Correct Patient Yes -Correct Side, Site, Position Yes -Procedure Performed No -Wound/Ulcer Outcome Not Healed #2 Right Lateral Ankle -Time 12:01 -Correct Patient Yes -Correct Side, Site, Position Yes -Procedure Performed No -Wound/Ulcer Outcome Not Healed [See Physician Procedure note for Specifics] Pain Scale: 0-10 Numeric [Pain] -Is Patient Pain Free? Yes Musculoskeletal: No Tenderness to Palpation of Joints or Extremities, Muscle Wasting Neurological: - - Lack of sensation bilateral lower extremities Psych/Mental Status: Normal Affect, Appropriate Debridement Note Post-Debridement Measurements/Treatment WC - Nurse 2 - General Ulcer CM Notes Start: 08/28/18 13:55 Freq: Status: Active Protocol: Activity Type Activity Date Activity User E-Sign Co-Sign Detail Recorded Client Recorded Date Recorded By Document 08/28/18 14:54 JF [id number] 08/28/18 14:56 JF Document 09/05/18 12:01 DV [id number] 09/05/18 12:02 DV 08/28/18 09/05/18 14:54 12:01 Wound Center Nurse 2 #6 Left Anterior Foot -Time 12:01 -Correct Patient No Yes -Correct Side, Site, Position No Yes -Correct Procedure No -Procedure Performed No No -Wound/Ulcer Outcome Not Healed Not Healed -Bleeding Controlled with NA #5 Posterior LLE -Time 12:01 -Correct Patient No Yes -Correct Side, Site, Position No Yes -Correct Procedure No -Procedure Performed No No -Wound/Ulcer Outcome Not Healed Not Healed -Bleeding Controlled with NA #4 Left Heel -Time 12:01 -Correct Patient No Yes -Correct Side, Site, Position No Yes -Correct Procedure No -Procedure Performed No No -Wound/Ulcer Outcome Not Healed Not Healed -Bleeding Controlled with NA #3 Right Heel -Time 12:01 -Correct Patient No Yes -Correct Side, Site, Position No Yes -Correct Procedure No -Procedure Performed No No -Wound/Ulcer Outcome Not Healed Not Healed -Bleeding Controlled with NA #2 Right Lateral Ankle -Time 12:01 -Correct Patient No Yes -Correct Side, Site, Position No Yes -Correct Procedure No -Procedure Performed No No -Wound/Ulcer Outcome Not Healed Not Healed -Bleeding Controlled with NA Pain Scale: 0-10 Numeric Is Patient Pain Free? Yes Yes No debridement was completed today - Due to lack of perfusion Assessment/Plan Active Problems (Last Reviewed 08/13/18 @ 10:19 by Fernando Patterson MD) Other specified peripheral vascular diseases (Chronic) Unstageable pressure ulcer of left foot (Chronic) Unstageable pressure ulcer of right foot (Chronic) Ulcer of left lower extremity with fat layer exposed (Chronic) Malnutrition (Chronic) Delayed wound healing (Chronic) Edema leg (Chronic) Paralysis (Chronic) Osteomyelitis (Acute) Assessment: Right lateral ankle unstageable pressure ulcer, no cellulitis. Right heel unstageable pressure ulcer, no cellulitis. Left heel unstageable pressure ulcer no cellulitis. Left posterior leg unstageable pressure ulcer no cellulitis. Anterior left ankle ulcer with fat layer exposed. New pressure injury without ulcer to right lower leg. Peripheral vascular disease with rest pain. Other comorbidities. Delayed healing. Malnutrition. Paralysis and gait impairment with wheelchair use Plan: I reviewed and discussed his case today. His ulcer sites were not debrided due to lack of perfusion. He had recent noninvasive vascular studies performed which demonstrated noncompressible vessels in which ankle-brachial indices were not calculated. This is consistent with rest pain as well as multisegmental occlusive disease and vessel calcification. His labs on August 17 include a white blood cell count 5.3, ESR 38, C-reactive protein 5.23, and albumin 2.5. His ulcer sites appear fairly stable and I recommend he complete a 6-week course of IV antibiotics; he is under the management of infectious disease. 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 The cellulitic clinical presentation has resolved compared to his most recent hospital admission. I recommend strict offloading to keep pressure off of these friable areas. To continue bilateral donut pillows. To changed dressing to all sites daily with Santyl applied in nickel thickness. The half-way facility will help assist him with this. It is okay to transfer with bilateral surgical shoes which were ordered today and while he is working with physical therapy. To avoid soaking. It is okay to elevate the limbs only for very minimal time due to the concern of lack of arterial perfusion. He was previously seen and evaluated by Dr. Lagos who does not recommend vascular surgery at this time; amputation was offered. The patient is interested in a second opinion and a referral was provided today. He is scheduled. He understands that he is at significant risk for limb loss and our goal at this time is to control any infectious process and establish a clear level of perfusion. He asked if hyperbaric oxygen therapy as a treatment option. I explained to him the indications, process, and anticipated management. If he has a gross lack of perfusion to the limbs he is not an appropriate hyperbaric oxygen therapy candidate and we will both through his vascular surgery second opinion prior to proceeding forward with any screening process. To continue with nutritional supplementation, Fred. To continue to use donut offloading pillows to keep pressure off the ulcer sites. I recommended caution with handling and transporting this patient and also with direct application of the donut pillow to the non-blanchable new pressure injury site to the right leg. I recommend he follows up the wound healing center 1 week or call sooner if he has any questions or concerns. I answered all his questions.
[2018-09-12 11:04] VITALS: BP 146/76; PULSE 64; RESP 18; TEMP 35.9
--- NOTE | 2018-09-12 11:38 | PCM.WC.PN ---
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 Current Visit: Yes Code(s): L89.890 - Pressure ulcer of other site, unstageable (2) Unstageable pressure ulcer of right foot Status: Chronic Current Visit: Yes Code(s): L89.890 - Pressure ulcer of other site, unstageable (3) Ulcer of left lower extremity with fat layer exposed Status: Chronic Current Visit: Yes Code(s): L97.922 - Non-pressure chronic ulcer of unspecified part of left lower leg with fat layer exposed (4) Other specified peripheral vascular diseases Status: Chronic Current Visit: Yes Code(s): I73.89 - Other specified peripheral vascular diseases (5) Malnutrition Status: Chronic Current Visit: Yes Code(s): E46 - Unspecified protein-calorie malnutrition (6) Delayed wound healing Status: Chronic Current Visit: Yes Code(s): T14.8XXD - Other injury of unspecified body region, subsequent encounter (7) Edema leg Status: Chronic Current Visit: Yes Code(s): R60.0 - Localized edema (8) Paralysis Status: Chronic Current Visit: Yes Code(s): G83.9 - Paralytic syndrome, unspecified (9) Osteomyelitis Status: Chronic Current Visit: Yes Code(s): M86.9 - Osteomyelitis, unspecified Type of Wound Date of Service: 09/12/18 Chief Complaint: Foot and leg pressure ulcers History of Wound: He resides at [facility]. He denies fever, chill, nausea, vomiting. He does have this 82-year-old male with multiple comorbidities was seen at the wound healing center for pressure ulcers to both heels and legs. He has large black scabs in place. He was recently evaluated by Dr. Lagos who recommended amputations of the legs. He is now tentatively scheduled to go for a second opinion with Dr. De Anda; this evaluation still pending on September 19, 2018. He denies fever, chill, nausea, vomiting. He is a paraplegic and presents in a wheelchair. He continues to take Fred supplementation. He did obtain bilateral donut offloading pillows and this helps keep pressure off the sites. He is with his family today. He denies pain. He has been performing dressing changes with Santyl. Progress of Wound: Stable - Physical Exam Vital Signs Temp Pulse Resp BP 96.6 F L 64 18 146/76 H 09/12/18 11:04 09/12/18 11:04 09/12/18 11:04 09/12/18 11:04 General: Alert, Oriented x3, Cooperative Extremities: No cyanosis, Capillary Refill Less than 3 Seconds, No Calf Tenderness - Negative Ayanna and Ortega sign bilateral, Diminished Peripheral Pulses, Edema - Mild bilateral lower extremities, - - Paralysis bilateral. In wheelchair. Skin: Ulcer/ Wound - No purulence, no erythema, streaking, no odor, no acute infection bilateral. Peripheral skin is hairless and atrophic. The right lateral ankle as well as the medial aspect of the right heel ulcer sites have a fibronecrotic plug that is moist and partially adhered Wound Measurements and Assessment WC - Nurse 1 - General Ulcer Measurement Start: 08/28/18 13:55 Freq: Status: Active Protocol: Activity Type Activity Date Activity User E-Sign Co-Sign Detail Recorded Client Recorded Date Recorded By Document 09/12/18 11:04 [id number] 09/12/18 11:10 DL 09/12/18 11:04 Wound Center Nurse 1 [Ulcer Assessment] #6 Left Anterior Foot -Combined with other wound No -Current Size (cm) - Length 2.0 -Current Size (cm) - Width 0.7 -Current Size (cm) - Depth 0.2 -Total Square Cm 1.40 -Photo Taken No -Epithelialization None Present -Tunneling No -Undermining/Tunneling No -Circular Undermining No -Classification - Thickness Full Thickness without Exposed Support Structure -Exudate Amt Medium (34-66%) -Exudate Type Serosanguineous -Wound Margin Distinct, Outline Attached -Granulation Amt Medium (34-66%) -Granulation Quality Red -Slough/Fibrin Yes -Necrosis Amt Medium (34-66%) -Necrotic Tissue Type Adherent Slough -Structure Exposed Fascia Fat Layer Exposed -Texture (Denisse-wound Skin Appearance) Assessed Friable Scarring -Moisture (Denisse-wound Skin Appearance No Abnormality ) Assessed -Color (Denisse-wound Skin Appearance) Assessed Hemosiderin Staining Rubor -Temperature (Denisse-wound Skin No Abnormality Appearance) (Pt Warm) -Tenderness on Palpation (Denisse-wound No Skin Appearance) -Ulcer Cleansing Wound Cleanser -Foul Odor after Cleansing No -Anesthetic Used 4% Lidocaine Solution #5 Posterior LLE -Combined with other wound No -Current Size (cm) - Length 2.4 -Current Size (cm) - Width 2.0 -Current Size (cm) - Depth 0.4 -Total Square Cm 4.80 -Photo Taken No -Epithelialization None Present -Undermining/Tunneling No -Circular Undermining No -Classification - Thickness Full Thickness without Exposed Support Structure -Exudate Amt Medium (34-66%) -Exudate Type Serosanguineous -Wound Margin Distinct, Outline Attached -Granulation Amt Medium (34-66%) -Granulation Quality Red -Slough/Fibrin Yes -Necrosis Amt Medium (34-66%) -Necrotic Tissue Type Adherent Slough -Structure Exposed Fascia Fat Layer Exposed -Texture (Denisse-wound Skin Appearance) Assessed Scarring -Moisture (Denisse-wound Skin Appearance No Abnormality ) Assessed -Color (Denisse-wound Skin Appearance) Assessed Hemosiderin Staining Rubor -Temperature (Denisse-wound Skin No Abnormality Appearance) (Pt Warm) -Tenderness on Palpation (Denisse-wound No Skin Appearance) -Ulcer Cleansing Wound Cleanser -Foul Odor after Cleansing No -Anesthetic Used 5% Lidocaine Gel #4 Left Heel -Combined with other wound No -Current Size (cm) - Length 0.6 -Current Size (cm) - Width 0.1 -Current Size (cm) - Depth 0.1 -Total Square Cm 0.06 -Photo Taken No -Epithelialization None Present -Tunneling No -Undermining/Tunneling No -Circular Undermining No -Classification - Thickness Full Thickness without Exposed Support Structure -Exudate Amt None Present (0 %) -Wound Margin Distinct, Outline Attached -Granulation Amt None Present (0 %) -Granulation Quality N/A -Slough/Fibrin Yes -Necrosis Amt Large (67-100%) -Necrotic Tissue Type Eschar -Structure Exposed Fascia Fat Layer Exposed -Texture (Denisse-wound Skin Appearance) Assessed Friable Scarring -Moisture (Denisse-wound Skin Appearance Assessed ) Dry/Scaly -Color (Denisse-wound Skin Appearance) Assessed Rubor -Temperature (Denisse-wound Skin No Abnormality Appearance) (Pt Warm) -Tenderness on Palpation (Denisse-wound No Skin Appearance) -Ulcer Cleansing Wound Cleanser -Foul Odor after Cleansing No -Anesthetic Used 5% Lidocaine Gel #3 Right Heel -Combined with other wound No -Current Size (cm) - Length 3.0 -Current Size (cm) - Width 5.5 -Current Size (cm) - Depth 0.2 -Total Square Cm 16.50 -Photo Taken No -Epithelialization None Present -Tunneling No -Undermining/Tunneling No -Circular Undermining No -Classification - Thickness Full Thickness without Exposed Support Structure -Exudate Amt None Present (0 %) -Wound Margin Distinct, Outline Attached -Granulation Amt None Present (0 %) -Granulation Quality N/A -Slough/Fibrin Yes -Necrosis Amt Large (67-100%) -Necrotic Tissue Type Eschar -Structure Exposed Fascia Fat Layer Exposed -Texture (Denisse-wound Skin Appearance) Assessed Friable Scarring -Moisture (Denisse-wound Skin Appearance Assessed ) Dry/Scaly -Color (Denisse-wound Skin Appearance) Assessed Rubor -Temperature (Denisse-wound Skin No Abnormality Appearance) (Pt Warm) -Tenderness on Palpation (Denisse-wound No Skin Appearance) -Ulcer Cleansing Wound Cleanser -Foul Odor after Cleansing No -Anesthetic Used 4% Lidocaine Solution #2 Right Lateral Ankle -Combined with other wound No -Current Size (cm) - Length 2.2 -Current Size (cm) - Width 2.3 -Current Size (cm) - Depth 0.6 -Total Square Cm 5.06 -Photo Taken No -Epithelialization None Present -Tunneling No -Undermining/Tunneling No -Circular Undermining No -Classification - Thickness Full Thickness without Exposed Support Structure -Exudate Amt Small (1-33%) -Exudate Type Serosanguineous -Wound Margin Distinct, Outline Attached -Granulation Amt Medium (34-66%) -Granulation Quality Red -Slough/Fibrin Yes -Necrosis Amt Medium (34-66%) -Necrotic Tissue Type Adherent Slough -Structure Exposed Fascia Fat Layer Exposed -Texture (Denisse-wound Skin Appearance) Assessed Friable Localized Edema Scarring -Moisture (Denisse-wound Skin Appearance Assessed ) -Color (Denisse-wound Skin Appearance) Assessed Rubor -Temperature (Denisse-wound Skin No Abnormality Appearance) (Pt Warm) -Tenderness on Palpation (Denisse-wound No Skin Appearance) -Ulcer Cleansing Wound Cleanser -Foul Odor after Cleansing No -Anesthetic Used 4% Lidocaine Solution [Edema Assessment] -Lower Limb Edema Present Yes -Right Calf (cm) 29.5 -Right Ankle (cm) 23.0 -Left Calf (cm) 31.5 -Left Ankle (cm) 22.7 WC - Nurse 2 - General Ulcer CM Notes Start: 08/28/18 13:55 Freq: Status: Active Protocol: Activity Type Activity Date Activity User E-Sign Co-Sign Detail Recorded Client Recorded Date Recorded By Document 09/12/18 11:31 [email or web address] 09/12/18 11:35 09/12/18 11:31 Wound Center Nurse 2 [Procedure/Treatment] #6 Left Anterior Foot -Time 11:31 -Correct Patient Yes -Correct Side, Site, Position Yes -Correct Procedure Yes -Procedure Performed Yes -Post Debridement Size (cm) - Length 2.0 -Post Debridement Size (cm) - Width 0.7 -Post Debridement Size (cm) - Depth 0.2 -Total Square Cm 1.40 -Wound/Ulcer Outcome Not Healed -Ulcer Cleansing Rinsed/ Irrigated with Saline -Foul Odor after Cleansing No -Bioengineered Tissue No -Topical Lidocaine (%) 4 -Bleeding Controlled with Pressure -Treatment Response Procedure Tolerated Well #5 Posterior LLE -Time 11:32 -Correct Patient Yes -Correct Side, Site, Position Yes -Correct Procedure Yes -Procedure Performed Yes -Post Debridement Size (cm) - Length 2.4 -Post Debridement Size (cm) - Width 2.0 -Post Debridement Size (cm) - Depth 0.4 -Total Square Cm 4.80 -Wound/Ulcer Outcome Not Healed -Ulcer Cleansing Rinsed/ Irrigated with Saline -Foul Odor after Cleansing No -Bioengineered Tissue No -Topical Lidocaine (%) 4 -Bleeding Controlled with Pressure -Treatment Response Procedure Tolerated Well #4 Left Heel -Time 11:32 -Correct Patient Yes -Correct Side, Site, Position Yes -Correct Procedure Yes -Procedure Performed Yes -Post Debridement Size (cm) - Length 3.0 -Post Debridement Size (cm) - Width 5.5 -Post Debridement Size (cm) - Depth 0.2 -Total Square Cm 16.50 -Wound/Ulcer Outcome Not Healed -Bioengineered Tissue No -Topical Lidocaine (%) 4 -Bleeding Controlled with Pressure -Treatment Response Procedure Tolerated Well #3 Right Heel -Time 11:33 -Correct Patient Yes -Correct Side, Site, Position Yes -Correct Procedure Yes -Procedure Performed Yes -Type of Procedure Debridement -Clinical Debridement Selective -Post Debridement Size (cm) - Length 0.6 -Post Debridement Size (cm) - Width 0.1 -Post Debridement Size (cm) - Depth 0.1 -Total Square Cm 0.06 -Wound/Ulcer Outcome Not Healed -Ulcer Cleansing Rinsed/ Irrigated with Saline -Foul Odor after Cleansing No -Bioengineered Tissue No -Topical Lidocaine (%) 4 -Bleeding Controlled with Pressure -Treatment Response Procedure Tolerated Well #2 Right Lateral Ankle -Time 11:33 -Correct Patient Yes -Correct Side, Site, Position Yes -Correct Procedure Yes -Procedure Performed Yes -Type of Procedure Debridement -Clinical Debridement Selective -Post Debridement Size (cm) - Length 2.2 -Post Debridement Size (cm) - Width 2.3 -Post Debridement Size (cm) - Depth 0.6 -Total Square Cm 5.06 -Wound/Ulcer Outcome Not Healed -Ulcer Cleansing Rinsed/ Irrigated with Saline -Foul Odor after Cleansing No -Bioengineered Tissue No -Topical Lidocaine (%) 4 -Bleeding Controlled with Pressure -Treatment Response Procedure Tolerated Well [See Physician Procedure note for Specifics] Pain Scale: 0-10 Numeric [Pain] -Is Patient Pain Free? Yes Musculoskeletal: No Tenderness to Palpation of Joints or Extremities, Muscle Wasting Neurological: - - Lack of sensation via light touch consistent with neuropathy and paralysis status Psych/Mental Status: Normal Affect, Appropriate Debridement Note Post-Debridement Measurements/Treatment WC - Nurse 2 - General Ulcer CM Notes Start: 08/28/18 13:55 Freq: Status: Active Protocol: Activity Type Activity Date Activity User E-Sign Co-Sign Detail Recorded Client Recorded Date Recorded By Document 08/28/18 14:54 [email or web address] 08/28/18 14:56 Document 09/05/18 12:01 DV [id number] 09/05/18 12:02 DV Document 09/12/18 11:31 TM [id number] 09/12/18 11:35 TM 08/28/18 09/05/18 09/12/18 14:54 12:01 11:31 Wound Center Nurse 2 #6 Left Anterior Foot -Time 12:01 11:31 -Correct Patient No Yes Yes -Correct Side, Site, Position No Yes Yes -Correct Procedure No Yes -Procedure Performed No No Yes -Post Debridement Size (cm) - Length 2.0 -Post Debridement Size (cm) - Width 0.7 -Post Debridement Size (cm) - Depth 0.2 -Total Square Cm 1.40 -Wound/Ulcer Outcome Not Healed Not Healed Not Healed -Ulcer Cleansing Rinsed/ Irrigated with Saline -Foul Odor after Cleansing No -Bioengineered Tissue No -Topical Lidocaine (%) 4 -Bleeding Controlled with NA Pressure -Treatment Response Procedure Tolerated Well #5 Posterior LLE -Time 12: 11:32 -Correct Patient No Yes Yes -Correct Side, Site, Position No Yes Yes -Correct Procedure No Yes -Procedure Performed No No Yes -Post Debridement Size (cm) - Length 2.4 -Post Debridement Size (cm) - Width 2.0 -Post Debridement Size (cm) - Depth 0.4 -Total Square Cm 4.80 -Wound/Ulcer Outcome Not Healed Not Healed Not Healed -Ulcer Cleansing Rinsed/ Irrigated with Saline -Foul Odor after Cleansing No -Bioengineered Tissue No -Topical Lidocaine (%) 4 -Bleeding Controlled with NA Pressure -Treatment Response Procedure Tolerated Well #4 Left Heel -Time 12: 11:32 -Correct Patient No Yes Yes -Correct Side, Site, Position No Yes Yes -Correct Procedure No Yes -Procedure Performed No No Yes -Post Debridement Size (cm) - Length 3.0 -Post Debridement Size (cm) - Width 5.5 -Post Debridement Size (cm) - Depth 0.2 -Total Square Cm 16.50 -Wound/Ulcer Outcome Not Healed Not Healed Not Healed -Bioengineered Tissue No -Topical Lidocaine (%) 4 -Bleeding Controlled with NA Pressure -Treatment Response Procedure Tolerated Well #3 Right Heel -Time 12: 11:33 -Correct Patient No Yes Yes -Correct Side, Site, Position No Yes Yes -Correct Procedure No Yes -Procedure Performed No No Yes -Type of Procedure Debridement -Clinical Debridement Selective -Post Debridement Size (cm) - Length 0.6 -Post Debridement Size (cm) - Width 0.1 -Post Debridement Size (cm) - Depth 0.1 -Total Square Cm 0.06 -Wound/Ulcer Outcome Not Healed Not Healed Not Healed -Ulcer Cleansing Rinsed/ Irrigated with Saline -Foul Odor after Cleansing No -Bioengineered Tissue No -Topical Lidocaine (%) 4 -Bleeding Controlled with NA Pressure -Treatment Response Procedure Tolerated Well #2 Right Lateral Ankle -Time 12:01 11:33 -Correct Patient No Yes Yes -Correct Side, Site, Position No Yes Yes -Correct Procedure No Yes -Procedure Performed No No Yes -Type of Procedure Debridement -Clinical Debridement Selective -Post Debridement Size (cm) - Length 2.2 -Post Debridement Size (cm) - Width 2.3 -Post Debridement Size (cm) - Depth 0.6 -Total Square Cm 5.06 -Wound/Ulcer Outcome Not Healed Not Healed Not Healed -Ulcer Cleansing Rinsed/ Irrigated with Saline -Foul Odor after Cleansing No -Bioengineered Tissue No -Topical Lidocaine (%) 4 -Bleeding Controlled with NA Pressure -Treatment Response Procedure Tolerated Well Pain Scale: 0-10 Numeric Is Patient Pain Free? Yes Yes Yes Wound debrided: lateral ankle Laterality: Right Type of Debridement: Selective debridement Depth: in the subcutaneous layer Percentage of wound debrided: 100 Instrument Used: #15 blade Tissue Removed: fibrous, devitalized, biofilm, slough, eschar Severity: Fat Layer Exposed Amount of bleeding with debridement: None Bleeding Controlled with: Pressure Patient tolerated procedure well - Additional Wound Wound debrided: heel Laterality: Right Type of Debridement: Selective debridement Anesthesia Used: 4% Lidocaine Solution Depth: in the subcutaneous layer Percentage of wound debrided: 40 Instrument Used: #15 blade, Forceps Tissue Removed: fibrous, devitalized, biofilm, slough, eschar Severity: Fat Layer Exposed Amount of bleeding with debridement: None Bleeding Controlled with: Pressure Patient tolerated procedure: Patient tolerated procedure well Assessment/Plan Active Problems (Last Reviewed 08/13/18 @ 10:19 by Fernando Patterson MD) Other specified peripheral vascular diseases (Chronic) Unstageable pressure ulcer of left foot (Chronic) Unstageable pressure ulcer of right foot (Chronic) 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 Right heel unstageable pressure ulcer, no cellulitis. Left heel unstageable pressure ulcer no cellulitis. Left posterior leg unstageable pressure ulcer no cellulitis. Anterior left ankle ulcer with fat layer exposed. pressure injury without ulcer to right lower leg, stable. Peripheral vascular disease with rest pain. Other comorbidities. Delayed healing. Malnutrition. Paralysis and gait impairment with wheelchair use Plan: I reviewed and discussed his case today. His ulcer sites were debrided in a selective manner to the right heel and lateral ankle as noted in the clinical panel. The part of the right heel ulcer site that was not selectively debrided was crosshatched with a 15 blade to further provoked collagenase infiltration for enzymatic debridement. He had recent noninvasive vascular studies performed which demonstrated noncompressible vessels in which ankle-brachial indices were not calculated. This is consistent with rest pain as well as multisegmental occlusive disease and vessel calcification. His labs on August 17 include a white blood cell count 5.3, ESR 38, C-reactive protein 5.23, and albumin 2.5. His ulcer sites appear fairly stable and I recommend he complete a 6-week course of IV antibiotics; he is under the management of infectious disease. 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 The cellulitic clinical presentation has resolved compared to his most recent hospital admission. I recommend strict offloading to keep pressure off of these friable areas. To continue bilateral donut pillows. To changed dressing to all sites daily with Santyl applied in nickel thickness. The shelter facility will help assist him with this. It is okay to transfer with bilateral surgical shoes which were ordered today and while he is working with physical therapy. To avoid soaking. It is okay to elevate the limbs only for very minimal time due to the concern of lack of arterial perfusion. He was previously seen and evaluated by Dr. Lagos who does not recommend vascular surgery at this time; amputation was offered. The patient is interested in a second opinion and a referral was provided today. He is scheduled for September 19, 2018. He understands that he is at significant risk for limb loss and our goal at this time is to control any infectious process and establish a clear level of perfusion. He asked if hyperbaric oxygen therapy as a treatment option. I explained to him the indications, process, and anticipated management. If he has a gross lack of perfusion to the limbs he is not an appropriate hyperbaric oxygen therapy candidate and we will both through his vascular surgery second opinion prior to proceeding forward with any screening process. To continue with nutritional supplementation, Fred. To continue to use donut offloading pillows to keep pressure off the ulcer sites. I recommended caution with handling and transporting this patient and also with direct application of the donut pillow to the non-blanchable new pressure injury site to the right leg. I recommend he follows up the wound healing center 1 week or call sooner if he has any questions or concerns. I answered all his questions.
[2018-09-19 12:52] VITALS: BP 106/60; PULSE 63; RESP 16; TEMP 37
--- NOTE | 2018-09-19 15:02 | PN.PCM_ITS ---
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 Current Visit: Yes Code(s): L89.890 - Pressure ulcer of other site, unstageable (3) Unstageable pressure ulcer of right foot Status: Chronic Current Visit: Yes Code(s): L89.890 - Pressure ulcer of other site, unstageable (4) Ulcer of left lower extremity with fat layer exposed Status: Chronic Current Visit: Yes Code(s): L97.922 - Non-pressure chronic ulcer of unspecified part of left lower leg with fat layer exposed (5) Other specified peripheral vascular diseases Status: Chronic Current Visit: Yes Code(s): I73.89 - Other specified peripheral vascular diseases (6) Malnutrition Status: Chronic Current Visit: Yes Code(s): E46 - Unspecified protein- calorie malnutrition (7) Delayed wound healing Status: Chronic Current Visit: Yes Code(s): T14.8XXD - Other injury of unspecified body region, subsequent encounter (8) Edema leg Status: Chronic Current Visit: Yes Code(s): R60.0 - Localized edema (9) Paralysis Status: Chronic Current Visit: Yes Code(s): G83.9 - Paralytic syndrome, unspecified (10) Osteomyelitis Status: Chronic Current Visit: Yes Code(s): M86.9 - Osteomyelitis, unspecified Type of Wound Date of Service: 09/19/18 Chief Complaint: Foot and leg pressure ulcers History of Wound: He resides at [facility]. He denies fever, chill, nausea, vomiting. He does have this 82-year-old male with multiple comorbidities was seen at the wound healing center for pressure ulcers to both heels and legs. He has large black scabs in place. He recently completed a vascular surgery evaluation with Dr. De Anda and an Angio with potential intervention will be scheduled within the next 2-3 weeks. He denies fever, chill, nausea, vomiting. He is a paraplegic and presents in a wheelchair. He continues to take Fred supplementation. He did obtain bilateral donut offloading pillows and this helps keep pressure off the sites. He is with his family today. He denies pain. He has been performing dressing changes with Santyl. His nurse was concerned about some inflammation around the left leg ulcer site and a culture was obtained. So far there was no bacterial growth and the final results are pending. He is with his family today. He is scheduled to have his last course of antibiotics over the weekend that were recommended by infectious disease. Progress of Wound: Stable - Physical Exam Vital Signs Temp Pulse Resp BP 98.6 F 63 16 106/60 09/19/18 12:52 09/19/18 12:52 09/19/18 12:52 09/19/18 12:52 General: Alert, Oriented x3, Cooperative Extremities: No cyanosis, No Calf Tenderness, Diminished Peripheral Pulses - Nonpalpable pulses bilateral, Edema - Mild bilateral lower extremities, Tenderness - No pain with wound manipulation, - - Bilateral lower extremity paralysis noted. Patient is in a wheelchair Skin: Ulcer/ Wound - No purulence, erythema, streaking, odor, or infection. There is loose adherent eschar tissue noted to the lateral right ankle and right heel and lateral left ankle with deep tissue lying underneath. The peripheral skin is hairless and atrophic. I do not appreciate any local signs of infection around the denisse-ulcer site on the lateral left leg/ankle however this is violaceous in color and appears to be consistent with rubor and peripheral vascular disease changes. This will be monitored very closely., - - There is also some partial epithelialization noted to the anterior left ankle ulcer site. Wound Measurements and Assessment WC - Nurse 1 - General Ulcer Measurement Start: 08/28/18 13:55 Freq: Status: Active Protocol: Activity Type Activity Date Activity User E-Sign Co-Sign Detail Recorded Client Recorded Date Recorded By Document 09/19/18 12:52 [facility] [id number] 09/19/18 13:17 [facility] 09/19/18 12:52 Wound Center Nurse 1 [Ulcer Assessment] #6 Left Anterior Foot -Combined with other wound No -Current Size (cm) - Length 0.7 -Current Size (cm) - Width 0.4 -Current Size (cm) - Depth 0.1 -Total Square Cm 0.28 -Photo Taken No -Epithelialization None Present -Tunneling No -Undermining/Tunneling No -Circular Undermining No -Exudate Amt Small (1-33%) -Exudate Type Serosanguineous -Wound Margin Distinct, Outline Attached -Granulation Amt Small (1-33%) -Granulation Quality Red -Slough/Fibrin Yes -Necrosis Amt Large (67-100%) -Necrotic Tissue Type Adherent Slough -Texture (Denisse-wound Skin Appearance) Scarring -Moisture (Denisse-wound Skin Appearance Dry/Scaly ) -Color (Denisse-wound Skin Appearance) Assessed -Temperature (Denisse-wound Skin No Abnormality Appearance) (Pt Warm) -Tenderness on Palpation (Denisse-wound No Skin Appearance) -Ulcer Cleansing Rinsed/ Irrigated with Saline -Foul Odor after Cleansing No -Anesthetic Used 4% Lidocaine Solution #5 Posterior LLE -Combined with other wound No -Current Size (cm) - Length 1.8 -Current Size (cm) - Width 2.9 -Current Size (cm) - Depth 0.5 -Total Square Cm 5.22 -Photo Taken No -Epithelialization None Present -Tunneling No -Undermining/Tunneling No -Circular Undermining No -Exudate Amt Medium (34-66%) -Exudate Type Serosanguineous -Wound Margin Thickened & Rolled Under -Granulation Amt Small (1-33%) -Granulation Quality Red -Slough/Fibrin Yes -Necrosis Amt Large (67-100%) -Necrotic Tissue Type Adherent Slough -Texture (Denisse-wound Skin Appearance) Scarring -Moisture (Denisse-wound Skin Appearance Dry/Scaly ) -Color (Denisse-wound Skin Appearance) Hemosiderin Staining -Temperature (Denisse-wound Skin No Abnormality Appearance) (Pt Warm) -Tenderness on Palpation (Denisse-wound No Skin Appearance) -Ulcer Cleansing Rinsed/ Irrigated with Saline -Foul Odor after Cleansing No -Anesthetic Used 4% Lidocaine Solution #4 Left Heel -Combined with other wound No -Current Size (cm) - Length 1 -Current Size (cm) - Width 1 -Current Size (cm) - Depth 0.1 -Total Square Cm 1 -Photo Taken No -Epithelialization None Present -Tunneling No -Undermining/Tunneling No -Circular Undermining No -Exudate Amt None Present (0 %) -Wound Margin Distinct, Outline Attached -Granulation Amt None Present (0 %) -Slough/Fibrin Yes -Necrosis Amt Large (67-100%) -Necrotic Tissue Type Adherent Slough -Texture (Denisse-wound Skin Appearance) Scarring -Moisture (Denisse-wound Skin Appearance Dry/Scaly ) -Color (Denisse-wound Skin Appearance) Assessed -Temperature (Denisse-wound Skin No Abnormality Appearance) (Pt Warm) -Tenderness on Palpation (Denisse-wound No Skin Appearance) -Ulcer Cleansing Rinsed/ Irrigated with Saline -Foul Odor after Cleansing No -Anesthetic Used 4% Lidocaine Solution #3 Right Heel -Combined with other wound No -Current Size (cm) - Length 1.7 -Current Size (cm) - Width 6.8 -Current Size (cm) - Depth 0.3 -Total Square Cm 11.56 -Photo Taken No -Epithelialization None Present -Tunneling No -Undermining/Tunneling No -Circular Undermining No -Exudate Amt None Present (0 %) -Wound Margin Distinct, Outline Attached -Granulation Amt None Present (0 %) -Slough/Fibrin Yes -Necrosis Amt Large (67-100%) -Necrotic Tissue Type Eschar -Structure Exposed N/A -Texture (Denisse-wound Skin Appearance) Scarring -Moisture (Denisse-wound Skin Appearance Dry/Scaly ) -Color (Denisse-wound Skin Appearance) Erythema -Temperature (Denisse-wound Skin No Abnormality Appearance) (Pt Warm) -Tenderness on Palpation (Denisse-wound No Skin Appearance) -Ulcer Cleansing Rinsed/ Irrigated with Saline -Foul Odor after Cleansing No -Anesthetic Used 4% Lidocaine Solution #2 Right Lateral Ankle -Combined with other wound No -Current Size (cm) - Length 3 -Current Size (cm) - Width 2.6 -Current Size (cm) - Depth 0.4 -Total Square Cm 7.8 -Photo Taken No -Epithelialization None Present -Tunneling No -Undermining/Tunneling No -Circular Undermining No -Exudate Amt Medium (34-66%) -Exudate Type Serosanguineous -Wound Margin Thickened & Rolled Under -Granulation Amt Small (1-33%) -Granulation Quality Red -Slough/Fibrin Yes -Necrosis Amt Large (67-100%) -Necrotic Tissue Type Adherent Slough -Texture (Denisse-wound Skin Appearance) Scarring -Moisture (Denisse-wound Skin Appearance Dry/Scaly ) -Color (Denisse-wound Skin Appearance) Hemosiderin Staining -Temperature (Denisse-wound Skin No Abnormality Appearance) (Pt Warm) -Tenderness on Palpation (Denisse-wound No Skin Appearance) -Ulcer Cleansing Rinsed/ Irrigated with Saline -Foul Odor after Cleansing No -Anesthetic Used 4% Lidocaine Solution [Edema Assessment] -Lower Limb Edema Present Yes -Right Calf (cm) 30.8 -Right Ankle (cm) 22.5 -Left Calf (cm) 32 -Left Ankle (cm) 23.5 WC - Nurse 2 - General Ulcer CM Notes Start: 08/28/18 13:55 Freq: Status: Active Protocol: Activity Type Activity Date Activity User E-Sign Co-Sign Detail Recorded Client Recorded Date Recorded By Document 09/19/18 13:54 [id number] 09/19/18 13:58 09/19/18 13:54 Wound Center Nurse 2 [Procedure/Treatment] #6 Left Anterior Foot -Time 13:54 -Correct Patient Yes -Correct Side, Site, Position Yes -Correct Procedure Yes -Procedure Performed Yes -Type of Procedure Debridement -Clinical Debridement Subcutaneous -Post Debridement Size (cm) - Length 0.8 -Post Debridement Size (cm) - Width 0.5 -Post Debridement Size (cm) - Depth 0.1 -Total Square Cm 0.40 -Wound/Ulcer Outcome Not Healed -Ulcer Cleansing Rinsed/ Irrigated with Saline -Foul Odor after Cleansing No -Bioengineered Tissue No -Topical Lidocaine (%) 5 -Bleeding Controlled with Pressure -Treatment Response Procedure Tolerated Well #5 Posterior LLE -Time 13:55 -Correct Patient Yes -Correct Side, Site, Position Yes -Correct Procedure Yes -Procedure Performed Yes -Type of Procedure Debridement -Clinical Debridement Subcutaneous -Post Debridement Size (cm) - Length 1.9 -Post Debridement Size (cm) - Width 3.0 -Post Debridement Size (cm) - Depth 0.5 -Total Square Cm 5.70 -Wound/Ulcer Outcome Not Healed -Ulcer Cleansing Rinsed/ Irrigated with Saline -Foul Odor after Cleansing No -Bioengineered Tissue No -Topical Lidocaine (%) 5 -Bleeding Controlled with Pressure -Treatment Response Procedure Tolerated Well #4 Left Heel -Time 13:55 -Correct Patient Yes -Correct Side, Site, Position Yes -Correct Procedure Yes -Procedure Performed Yes -Type of Procedure Debridement -Clinical Debridement Subcutaneous -Post Debridement Size (cm) - Length 1.8 -Post Debridement Size (cm) - Width 6.9 -Post Debridement Size (cm) - Depth 0.3 -Total Square Cm 12.42 -Wound/Ulcer Outcome Not Healed -Ulcer Cleansing Rinsed/ Irrigated with Saline -Foul Odor after Cleansing No -Bioengineered Tissue No -Topical Lidocaine (%) 5 -Bleeding Controlled with Pressure -Treatment Response Procedure Tolerated Well #3 Right Heel -Time 13:56 -Correct Patient Yes -Correct Side, Site, Position Yes -Correct Procedure Yes -Procedure Performed Yes -Type of Procedure Debridement -Clinical Debridement Subcutaneous -Post Debridement Size (cm) - Length 1.1 -Post Debridement Size (cm) - Width 1.1 -Post Debridement Size (cm) - Depth 0.1 -Total Square Cm 1.21 -Wound/Ulcer Outcome Not Healed -Ulcer Cleansing Rinsed/ Irrigated with Saline -Foul Odor after Cleansing No -Bioengineered Tissue No -Topical Lidocaine (%) 5 -Bleeding Controlled with Pressure -Treatment Response Procedure Tolerated Well #2 Right Lateral Ankle -Time 13:56 -Correct Patient Yes -Correct Side, Site, Position Yes -Correct Procedure Yes -Procedure Performed Yes -Type of Procedure Debridement -Clinical Debridement Subcutaneous -Post Debridement Size (cm) - Length 3.1 -Post Debridement Size (cm) - Width 2.7 -Post Debridement Size (cm) - Depth 0.4 -Total Square Cm 8.37 -Wound/Ulcer Outcome Not Healed -Ulcer Cleansing Rinsed/ Irrigated with Saline -Foul Odor after Cleansing No -Bioengineered Tissue No -Topical Lidocaine (%) 5 -Bleeding Controlled with Pressure -Treatment Response Procedure Tolerated Well [See Physician Procedure note for Specifics] Pain Scale: 0-10 Numeric [Pain] -Is Patient Pain Free? Yes Musculoskeletal: No Tenderness to Palpation of Joints or Extremities, Muscle Wasting Neurological: - - Lack of sensation to touch bilateral lower extremities Psych/Mental Status: Normal Affect, Appropriate, Anxious - He is anxious to return home Debridement Note Post-Debridement Measurements/Treatment WC - Nurse 2 - General Ulcer CM Notes Start: 08/28/18 13:55 Freq: Status: Active Protocol: Activity Type Activity Date Activity User E-Sign Co-Sign Detail Recorded Client Recorded Date Recorded By Document 08/28/18 14:54 JF [id number] 08/28/18 14:56 JF Document 09/05/18 12:01 DV [id number] 09/05/18 12:02 DV Document 09/12/18 11:31 TM [id number] 09/12/18 11:35 TM Document 09/19/18 13:54 [id number] 09/19/18 13:58 TM 08/28/18 09/05/18 09/12/18 14:54 12:01 11:31 Wound Center Nurse 2 #6 Left Anterior Foot -Time 12:01 11:31 -Correct Patient No Yes Yes -Correct Side, Site, Position No Yes Yes -Correct Procedure No Yes -Procedure Performed No No Yes -Type of Procedure -Clinical Debridement -Post Debridement Size (cm) - Length 2.0 -Post Debridement Size (cm) - Width 0.7 -Post Debridement Size (cm) - Depth 0.2 -Total Square Cm 1.40 -Wound/Ulcer Outcome Not Healed Not Healed Not Healed -Ulcer Cleansing Rinsed/ Irrigated with Saline -Foul Odor after Cleansing No -Bioengineered Tissue No -Topical Lidocaine (%) 4 -Bleeding Controlled with NA Pressure -Treatment Response Procedure Tolerated Well #5 Posterior LLE -Time 12:01 11:32 -Correct Patient No Yes Yes -Correct Side, Site, Position No Yes Yes -Correct Procedure No Yes -Procedure Performed No No Yes -Type of Procedure -Clinical Debridement -Post Debridement Size (cm) - Length 2.4 -Post Debridement Size (cm) - Width 2.0 -Post Debridement Size (cm) - Depth 0.4 -Total Square Cm 4.80 -Wound/Ulcer Outcome Not Healed Not Healed Not Healed -Ulcer Cleansing Rinsed/ Irrigated with Saline -Foul Odor after Cleansing No -Bioengineered Tissue No -Topical Lidocaine (%) 4 -Bleeding Controlled with NA Pressure -Treatment Response Procedure Tolerated Well #4 Left Heel -Time 12:01 11:32 -Correct Patient No Yes Yes -Correct Side, Site, Position No Yes Yes -Correct Procedure No Yes -Procedure Performed No No Yes -Type of Procedure -Clinical Debridement -Post Debridement Size (cm) - Length 3.0 -Post Debridement Size (cm) - Width 5.5 -Post Debridement Size (cm) - Depth 0.2 -Total Square Cm 16.50 -Wound/Ulcer Outcome Not Healed Not Healed Not Healed -Ulcer Cleansing -Foul Odor after Cleansing -Bioengineered Tissue No -Topical Lidocaine (%) 4 -Bleeding Controlled with NA Pressure -Treatment Response Procedure Tolerated Well #3 Right Heel -Time 12:01 11:33 -Correct Patient No Yes Yes -Correct Side, Site, Position No Yes Yes -Correct Procedure No Yes -Procedure Performed No No Yes -Type of Procedure Debridement -Clinical Debridement Selective -Post Debridement Size (cm) - Length 0.6 -Post Debridement Size (cm) - Width 0.1 -Post Debridement Size (cm) - Depth 0.1 -Total Square Cm 0.06 -Wound/Ulcer Outcome Not Healed Not Healed Not Healed -Ulcer Cleansing Rinsed/ Irrigated with Saline -Foul Odor after Cleansing No -Bioengineered Tissue No -Topical Lidocaine (%) 4 -Bleeding Controlled with NA Pressure -Treatment Response Procedure Tolerated Well #2 Right Lateral Ankle -Time 12:01 11:33 -Correct Patient No Yes Yes -Correct Side, Site, Position No Yes Yes -Correct Procedure No Yes -Procedure Performed No No Yes -Type of Procedure Debridement -Clinical Debridement Selective -Post Debridement Size (cm) - Length 2.2 -Post Debridement Size (cm) - Width 2.3 -Post Debridement Size (cm) - Depth 0.6 -Total Square Cm 5.06 -Wound/Ulcer Outcome Not Healed Not Healed Not Healed -Ulcer Cleansing Rinsed/ Irrigated with Saline -Foul Odor after Cleansing No -Bioengineered Tissue No -Topical Lidocaine (%) 4 -Bleeding Controlled with NA Pressure -Treatment Response Procedure Tolerated Well Pain Scale: 0-10 Numeric Is Patient Pain Free? Yes Yes Yes 09/19/18 13:54 Wound Center Nurse 2 #6 Left Anterior Foot -Time 13:54 -Correct Patient Yes -Correct Side, Site, Position Yes -Correct Procedure Yes -Procedure Performed Yes -Type of Procedure Debridement -Clinical Debridement Subcutaneous -Post Debridement Size (cm) - Length 0.8 -Post Debridement Size (cm) - Width 0.5 -Post Debridement Size (cm) - Depth 0.1 -Total Square Cm 0.40 -Wound/Ulcer Outcome Not Healed -Ulcer Cleansing Rinsed/ Irrigated with Saline -Foul Odor after Cleansing No -Bioengineered Tissue No -Topical Lidocaine (%) 5 -Bleeding Controlled with Pressure -Treatment Response Procedure Tolerated Well #5 Posterior LLE -Time 13:55 -Correct Patient Yes -Correct Side, Site, Position Yes -Correct Procedure Yes -Procedure Performed Yes -Type of Procedure Debridement -Clinical Debridement Subcutaneous -Post Debridement Size (cm) - Length 1.9 -Post Debridement Size (cm) - Width 3.0 -Post Debridement Size (cm) - Depth 0.5 -Total Square Cm 5.70 -Wound/Ulcer Outcome Not Healed -Ulcer Cleansing Rinsed/ Irrigated with Saline -Foul Odor after Cleansing No -Bioengineered Tissue No -Topical Lidocaine (%) 5 -Bleeding Controlled with Pressure -Treatment Response Procedure Tolerated Well #4 Left Heel -Time 13:55 -Correct Patient Yes -Correct Side, Site, Position Yes -Correct Procedure Yes -Procedure Performed Yes -Type of Procedure Debridement -Clinical Debridement Subcutaneous -Post Debridement Size (cm) - Length 1.8 -Post Debridement Size (cm) - Width 6.9 -Post Debridement Size (cm) - Depth 0.3 -Total Square Cm 12.42 -Wound/Ulcer Outcome Not Healed -Ulcer Cleansing Rinsed/ Irrigated with Saline -Foul Odor after Cleansing No -Bioengineered Tissue No -Topical Lidocaine (%) 5 -Bleeding Controlled with Pressure -Treatment Response Procedure Tolerated Well #3 Right Heel -Time 13:56 -Correct Patient Yes -Correct Side, Site, Position Yes -Correct Procedure Yes -Procedure Performed Yes -Type of Procedure Debridement -Clinical Debridement Subcutaneous -Post Debridement Size (cm) - Length 1.1 -Post Debridement Size (cm) - Width 1.1 -Post Debridement Size (cm) - Depth 0.1 -Total Square Cm 1.21 -Wound/Ulcer Outcome Not Healed -Ulcer Cleansing Rinsed/ Irrigated with Saline -Foul Odor after Cleansing No -Bioengineered Tissue No -Topical Lidocaine (%) 5 -Bleeding Controlled with Pressure -Treatment Response Procedure Tolerated Well #2 Right Lateral Ankle -Time 13:56 -Correct Patient Yes -Correct Side, Site, Position Yes -Correct Procedure Yes -Procedure Performed Yes -Type of Procedure Debridement -Clinical Debridement Subcutaneous -Post Debridement Size (cm) - Length 3.1 -Post Debridement Size (cm) - Width 2.7 -Post Debridement Size (cm) - Depth 0.4 -Total Square Cm 8.37 -Wound/Ulcer Outcome Not Healed -Ulcer Cleansing Rinsed/ Irrigated with Saline -Foul Odor after Cleansing No -Bioengineered Tissue No -Topical Lidocaine (%) 5 -Bleeding Controlled with Pressure -Treatment Response Procedure Tolerated Well Pain Scale: 0-10 Numeric Is Patient Pain Free? Yes Wound debrided: lateral ankle Laterality: Right Type of Debridement: Excisional debridement Anesthesia Used: 5% Lidocaine Gel Depth: in the subcutaneous layer Percentage of wound debrided: 100 Instrument Used: #15 blade, Forceps Tissue Removed: fibrous, devitalized subcutaneous, biofilm, slough,eschar Severity: Fat Layer Exposed Amount of bleeding with debridement: Mild Bleeding Controlled with: Pressure Patient tolerated procedure well - Additional Wound Wound debrided: heel Laterality: Right Type of Debridement: Excisional debridement Anesthesia Used: 5% Lidocaine Gel Depth: in the subcutaneous layer Percentage of wound debrided: 50 Instrument Used: #15 blade, Forceps Tissue Removed: fibrous, devitalized subcutaneous, biofilm, slough, eschar Severity: Fat Layer Exposed Amount of bleeding with debridement: Mild Bleeding Controlled with: Pressure Patient tolerated procedure: Patient tolerated procedure well - Additional Wound Wound debrided: lateral leg/ankle Laterality: Left Type of Debridement: Excisional debridement Anesthesia Used: 5% Lidocaine Gel Depth: in the subcutaneous layer Percentage of wound debrided: 100 Instrument Used: #15 blade, Forceps Tissue Removed: fibrous, devitalized subcutaneous, biofilm, slough, eschar Severity: Fat Layer Exposed Amount of bleeding with debridement: Mild Bleeding Controlled with: Pressure Patient tolerated procedure: Patient tolerated procedure well - Additional Wound Wound debrided: anterior ankle/foot Laterality: Left Type of Debridement: Excisional debridement Anesthesia Used: 5% Lidocaine Gel Depth: in the subcutaneous layer Percentage of wound debrided: 100 Instrument Used: #15 blade Tissue Removed: fibrous, devitalized subcutaneous, biofilm, slough Severity: Fat Layer Exposed Amount of bleeding with debridement: Mild Bleeding Controlled with: Pressure Patient tolerated procedure: Patient tolerated procedure well Assessment/Plan Active Problems (Last Reviewed 08/13/18 @ 10:19 by Fernando Patterson MD) Other specified peripheral vascular diseases (Chronic) Unstageable pressure ulcer of left foot (Chronic) Unstageable pressure ulcer of right foot (Chronic) Ulcer of left lower extremity with fat layer exposed (Chronic) Malnutrition (Chronic) Delayed wound healing (Chronic) Edema leg (Chronic) Paralysis (Chronic) Ulcer of right lower extremity with fat layer exposed (Chronic) Osteomyelitis (Chronic) Assessment: Right lateral ankle unstageable pressure ulcer, no cellulitis. Fat layer exposed now. Right heel unstageable pressure ulcer, no cellulitis. Partial fat layer exposed now. Left heel unstageable pressure ulcer no cellulitis. Left posterior / lateral leg unstageable pressure ulcer no cellulitis. Fat layer exposed now. Anterior left ankle ulcer with fat layer exposed. pressure injury without ulcer to right lower leg, stable. Peripheral vascular disease with rest pain. Other comorbidities. Delayed healing. Malnutrition. Paralysis and gait impairment with wheelchair use Plan: I reviewed and discussed his case today. His ulcer sites were debrided in a subcutaneous excisional manner to the right lateral ankle part of the right heel, left leg, and anterior left ankle/foot. It is noted the Santyl has broken down some of the eschar and there is moist tissue that benefited from being excised at this time. To continue Santyl dressing at the [facility] on a daily basis; to apply with nickel thickness. He had recent noninvasive vascular studies performed which demonstrated noncompressible vessels in which ankle-brachial indices were not calculated. This is consistent with rest pain as well as multisegmental occlusive disease and vessel calcification. He did go for consultation with Dr. De Anda earlier this morning who recommends an angiogram with potential intervention within the next 2-3 weeks. I will request these notes. I recommend he proceed forward with this opportunity. His labs on August 17 include a white blood cell count 5.3, ESR 38, C-reactive protein 5.23, and albumin 2.5. His ulcer sites appear fairly stable and I recommend he complete a 6-week course of IV antibiotics; he is un fausto the management of infectious disease. He is scheduled to complete this course this weekend. I do not recommend refills at this time nor do I appreciate additional signs of infection. His nursing staff was concerned about potential infection progression on the left leg and this was closely evaluated today. His culture results were reviewed without bacterial growth from the site. I will monitor this again once this is finalized. Only yeast has been noted so far. I recommend he continue to cleanse the legs prior to Santyl application with gentle Dial soap and warm water cleanse. To avoid soaking. 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 I recommend strict offloading to keep pressure off of these friable areas. To continue bilateral donut pillows. It is okay to transfer with bilateral surgical shoes which were ordered today and while he is working with physical t herapy. It is okay to elevate the limbs only for very minimal time due to the concern of lack of arterial perfusion. It is okay to be discharged home from a podiatric wound management standpoint and also once his IV antibiotic course is complete. I explained to the patient that I alone and not in charge of his discharge coordination and he will need to work with his care management and geriatric social work professor at his alf facility to make sure this is a safe transition. He understands that he is at significant risk for limb loss and our goal at this time is to control any infectious process and establish a clear level of perfusion. He asked if hyperbaric oxygen therapy as a treatment option. I explained to him the indications, process, and anticipated management. If he has a gross lack of perfusion to the limbs he is not an appropriate hyperbaric oxygen therapy candidate and we will proceed with the aforementioned vascular surgery workup. To continue with nutritional supplement ation, Fred. To continue to use donut offloading pillows to keep pressure off the ulcer sites. I recommended caution with handling and transporting this patient and also with direct application of the donut pillow to the non- blanchable new pressure injury site to the right leg. I recommend he follows up the wound healing center 1 week or call sooner if he has any questions or concerns. I answered all his questions.
[2018-09-26 13:09] VITALS: BP 134/68; PULSE 67; RESP 18; TEMP 36.9
--- NOTE | 2018-09-26 15:04 | PCM.WC.PN ---
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 Current Visit: Yes Code(s): L89.890 - Pressure ulcer of other site, unstageable (3) Unstageable pressure ulcer of right foot Status: Chronic Current Visit: Yes Code(s): L89.890 - Pressure ulcer of other site, unstageable (4) Ulcer of left lower extremity with fat layer exposed Status: Chronic Current Visit: Yes Code(s): L97.922 - Non-pressure chronic ulcer of unspecified part of left lower leg with fat layer exposed (5) Other specified peripheral vascular diseases Status: Chronic Current Visit: Yes Code(s): I73.89 - Other specified peripheral vascular diseases (6) Malnutrition Status: Chronic Current Visit: Yes Code(s): E46 - Unspecified protein-calorie malnutrition (7) Delayed wound healing Status: Chronic Current Visit: Yes Code(s): T14.8XXD - Other injury of unspecified body region, subsequent encounter (8) Edema leg Status: Chronic Current Visit: Yes Code(s): R60.0 - Localized edema (9) Paralysis Status: Chronic Current Visit: Yes Code(s): G83.9 - Paralytic syndrome, unspecified (10) Osteomyelitis Status: Chronic Current Visit: Yes Code(s): M86.9 - Osteomyelitis, unspecified Type of Wound Date of Service: 09/26/18 Chief Complaint: Foot and leg pressure ulcers History of Wound: He resides at [facility]. He denies fever, chill, nausea, vomiting. He does have this 82-year-old male with multiple comorbidities was seen at the wound healing center for pressure ulcers to both heels and legs. His large black scabs are reducing after serial Santyl applications. He resides at [facility] and is hoping to get discharged home soon. He recently completed a vascular surgery evaluation with Dr. De Anda and an Angio with potential intervention will be scheduled within the next 1-2 weeks. He denies fever, chill, nausea, vomiting. He is a paraplegic and presents in a wheelchair. He continues to take Fred supplementation. He did obtain bilateral donut offloading pillows and this helps keep pressure off the sites. He is with his family today. He denies pain. He has been performing dressing changes with Santyl. He denies pain or further inflammation. He was also seen in evaluation by infectious disease and we discussed his case and his culture results. He is eager to get his dressing supplies sent to his house prior to his discharge from the skilled facility. Progress of Wound: Improving quality to all sites - Physical Exam Vital Signs Temp Pulse Resp BP 98.4 F 67 18 134/68 H 09/26/18 13:09 09/26/18 13:09 09/26/18 13:09 09/26/18 13:09 General: Alert, Oriented x3, Cooperative Extremities: No cyanosis, Capillary Refill Less than 3 Seconds, No Calf Tenderness, Diminished Peripheral Pulses, Edema - Mild bilateral, - - Paralysis bilateral lower extremities Skin: Ulcer/ Wound - No purulence, erythema, streaking, odor, or infection. There is peripheral epithelialization noted to the dorsal left foot and the lateral leg and to the posterior heel aspect. There is decreased moist eschar to the posterior right heel and significant improvement of quality of tissue to the right lateral leg. There is no exposed bone. There is exposed deep tissue noted to the lateral ankle I am suspecting this is periosteal or tendon tissue. The peripheral skin is hairless, atrophic, and hyperpigmented. There is no maceration or new shara necrosis or new eschar formation noted. Wound Measurements and Assessment WC - Nurse 1 - General Ulcer Measurement Start: 08/28/18 13:55 Freq: Status: Active Protocol: Activity Type Activity Date Activity User E-Sign Co-Sign Detail Recorded Client Recorded Date Recorded By Document 09/26/18 13:09 MW [id number] 09/26/18 13:21 MW 09/26/18 13:09 Wound Center Nurse 1 [Ulcer Assessment] #6 Left Anterior Foot -Combined with other wound No -Current Size (cm) - Length 0.1 -Current Size (cm) - Width 0.1 -Current Size (cm) - Depth 0.1 -Total Square Cm 0.01 -Photo Taken No -Epithelialization None Present -Tunneling No -Undermining/Tunneling No -Circular Undermining No -Exudate Amt Small (1-33%) -Wound Margin Distinct, Outline Attached -Granulation Amt None Present (0 %) -Granulation Quality N/A -Slough/Fibrin Yes -Necrosis Amt Large (67-100%) -Necrotic Tissue Type Adherent Slough -Structure Exposed N/A -Texture (Denisse-wound Skin Appearance) Assessed Scarring -Moisture (Denisse-wound Skin Appearance Assessed ) Dry/Scaly -Color (Denisse-wound Skin Appearance) Assessed Hemosiderin Staining -Temperature (Denisse-wound Skin No Abnormality Appearance) (Pt Warm) -Tenderness on Palpation (Denisse-wound No Skin Appearance) -Ulcer Cleansing Rinsed/ Irrigated with Saline -Foul Odor after Cleansing No -Anesthetic Used 4% Lidocaine Solution #5 Posterior LLE -Combined with other wound No -Current Size (cm) - Length 2.0 -Current Size (cm) - Width 1.8 -Current Size (cm) - Depth 0.2 -Total Square Cm 3.60 -Photo Taken No -Epithelialization None Present -Tunneling No -Undermining/Tunneling No -Circular Undermining No -Exudate Amt Small (1-33%) -Exudate Type Serosanguineous -Wound Margin Distinct, Outline Attached -Granulation Amt Large (67-100%) -Granulation Quality Red -Slough/Fibrin Yes -Necrosis Amt Small (1-33%) -Necrotic Tissue Type Adherent Slough -Structure Exposed N/A -Texture (Denisse-wound Skin Appearance) Assessed Scarring -Moisture (Denisse-wound Skin Appearance Assessed ) Dry/Scaly -Color (Denisse-wound Skin Appearance) Assessed Hemosiderin Staining -Temperature (Denisse-wound Skin No Abnormality Appearance) (Pt Warm) -Tenderness on Palpation (Denisse-wound No Skin Appearance) -Ulcer Cleansing Rinsed/ Irrigated with Saline -Foul Odor after Cleansing No -Anesthetic Used 4% Lidocaine Solution #4 Left Heel -Combined with other wound No -Current Size (cm) - Length 0.5 -Current Size (cm) - Width 0.7 -Current Size (cm) - Depth 0.1 -Total Square Cm 0.35 -Photo Taken No -Epithelialization None Present -Tunneling No -Undermining/Tunneling No -Circular Undermining No -Exudate Amt None Present (0 %) -Wound Margin Flat & Intact -Granulation Amt None Present (0 %) -Granulation Quality N/A -Slough/Fibrin Yes -Necrosis Amt Large (67-100%) -Necrotic Tissue Type Adherent Slough -Structure Exposed N/A -Texture (Denisse-wound Skin Appearance) Assessed Scarring -Moisture (Denisse-wound Skin Appearance Assessed ) Dry/Scaly -Color (Denisse-wound Skin Appearance) Assessed Hemosiderin Staining -Temperature (Denisse-wound Skin No Abnormality Appearance) (Pt Warm) -Tenderness on Palpation (Denisse-wound No Skin Appearance) -Ulcer Cleansing Rinsed/ Irrigated with Saline -Foul Odor after Cleansing No -Anesthetic Used 4% Lidocaine Solution #3 Right Heel -Combined with other wound No -Current Size (cm) - Length 1.8 -Current Size (cm) - Width 5.6 -Current Size (cm) - Depth 0.3 -Total Square Cm 10.08 -Photo Taken No -Epithelialization None Present -Tunneling No -Undermining/Tunneling No -Circular Undermining No -Exudate Amt Small (1-33%) -Exudate Type Serosanguineous -Wound Margin Distinct, Outline Attached -Granulation Amt Small (1-33%) -Granulation Quality Red -Slough/Fibrin Yes -Necrosis Amt Large (67-100%) -Necrotic Tissue Type Eschar -Structure Exposed N/A -Texture (Denisse-wound Skin Appearance) Assessed Scarring -Moisture (Denisse-wound Skin Appearance Assessed ) Dry/Scaly -Color (Denisse-wound Skin Appearance) Assessed Hemosiderin Staining -Temperature (Denisse-wound Skin No Abnormality Appearance) (Pt Warm) -Ulcer Cleansing Rinsed/ Irrigated with Saline -Foul Odor after Cleansing No -Anesthetic Used 4% Lidocaine Solution #2 Right Lateral Ankle -Combined with other wound No -Current Size (cm) - Length 3.1 -Current Size (cm) - Width 2.4 -Current Size (cm) - Depth 0.6 -Total Square Cm 7.44 -Photo Taken No -Epithelialization None Present -Tunneling No -Undermining/Tunneling No -Circular Undermining No -Exudate Amt Small (1-33%) -Exudate Type Serosanguineous -Wound Margin Distinct, Outline Attached -Granulation Amt Large (67-100%) -Granulation Quality Red -Slough/Fibrin Yes -Necrosis Amt Small (1-33%) -Necrotic Tissue Type Adherent Slough -Structure Exposed N/A -Texture (Denisse-wound Skin Appearance) Assessed Scarring -Moisture (Denisse-wound Skin Appearance Assessed ) Dry/Scaly -Color (Denisse-wound Skin Appearance) Assessed Hemosiderin Staining -Temperature (Denisse-wound Skin No Abnormality Appearance) (Pt Warm) -Tenderness on Palpation (Denisse-wound No Skin Appearance) -Ulcer Cleansing Rinsed/ Irrigated with Saline -Foul Odor after Cleansing No -Anesthetic Used 4% Lidocaine Solution [Edema Assessment] -Lower Limb Edema Present Yes -Right Calf (cm) 28.0 -Right Ankle (cm) 20.6 -Left Calf (cm) 30.0 -Left Ankle (cm) 21.5 WC - Nurse 2 - General Ulcer CM Notes Start: 08/28/18 13:55 Freq: Status: Active Protocol: Activity Type Activity Date Activity User E-Sign Co-Sign Detail Recorded Client Recorded Date Recorded By Document 09/26/18 14:16 [id number] 09/26/18 14:43 09/26/18 14:16 Wound Center Nurse 2 [Procedure/Treatment] #6 Left Anterior Foot -Time 14:39 -Correct Patient Yes -Correct Side, Site, Position Yes -Correct Procedure Yes -Procedure Performed Yes -Type of Procedure Debridement -Clinical Debridement Subcutaneous -Post Debridement Size (cm) - Length 0.2 -Post Debridement Size (cm) - Width 0.2 -Post Debridement Size (cm) - Depth 0.1 -Total Square Cm 0.04 -Wound/Ulcer Outcome Not Healed -Ulcer Cleansing Rinsed/ Irrigated with Saline -Foul Odor after Cleansing No -Bioengineered Tissue No -Topical Lidocaine (%) 4 -Bleeding Controlled with Pressure -Treatment Response Procedure Tolerated Well #5 Posterior LLE -Time 14:40 -Correct Patient Yes -Correct Side, Site, Position Yes -Correct Procedure Yes -Procedure Performed Yes -Type of Procedure Debridement -Clinical Debridement Subcutaneous -Post Debridement Size (cm) - Length 2.1 -Post Debridement Size (cm) - Width 1.9 -Post Debridement Size (cm) - Depth 0.2 -Total Square Cm 3.99 -Wound/Ulcer Outcome Not Healed -Ulcer Cleansing Rinsed/ Irrigated with Saline -Foul Odor after Cleansing No -Bioengineered Tissue No -Topical Lidocaine (%) 4 -Bleeding Controlled with Pressure -Treatment Response Procedure Tolerated Well #4 Left Heel -Time 14:40 -Correct Patient Yes -Correct Side, Site, Position Yes -Correct Procedure Yes -Procedure Performed Yes -Type of Procedure Debridement -Clinical Debridement Subcutaneous -Post Debridement Size (cm) - Length 1.9 -Post Debridement Size (cm) - Width 5.7 -Post Debridement Size (cm) - Depth 0.3 -Total Square Cm 10.83 -Wound/Ulcer Outcome Not Healed -Ulcer Cleansing Rinsed/ Irrigated with Saline -Foul Odor after Cleansing No -Bioengineered Tissue No -Topical Lidocaine (%) 4 -Bleeding Controlled with Pressure -Treatment Response Procedure Tolerated Well #3 Right Heel -Time 14:41 -Correct Patient Yes -Correct Side, Site, Position Yes -Correct Procedure Yes -Procedure Performed Yes -Type of Procedure Debridement -Clinical Debridement Subcutaneous -Post Debridement Size (cm) - Length 0.6 -Post Debridement Size (cm) - Width 0.8 -Post Debridement Size (cm) - Depth 0.1 -Total Square Cm 0.48 -Wound/Ulcer Outcome Not Healed -Ulcer Cleansing Rinsed/ Irrigated with Saline -Foul Odor after Cleansing No -Bioengineered Tissue No -Topical Lidocaine (%) 4 -Bleeding Controlled with Pressure -Treatment Response Procedure Tolerated Well #2 Right Lateral Ankle -Time 14:42 -Correct Patient Yes -Correct Side, Site, Position Yes -Correct Procedure Yes -Procedure Performed Yes -Type of Procedure Debridement -Clinical Debridement Subcutaneous -Post Debridement Size (cm) - Length 3.2 -Post Debridement Size (cm) - Width 2.4 -Post Debridement Size (cm) - Depth 0.6 -Total Square Cm 7.68 -Wound/Ulcer Outcome Not Healed -Ulcer Cleansing Rinsed/ Irrigated with Saline -Foul Odor after Cleansing No -Bioengineered Tissue No -Topical Lidocaine (%) 4 -Bleeding Controlled with Pressure -Treatment Response Procedure Tolerated Well [See Physician Procedure note for Specifics] Pain Scale: 0-10 Numeric [Pain] -Is Patient Pain Free? Yes Musculoskeletal: No Tenderness to Palpation of Joints or Extremities, Muscle Wasting Neurological: - - Lack of sensation bilateral lower extremity Psych/Mental Status: Normal Affect, Appropriate, Anxious Debridement Note Post-Debridement Measurements/Treatment WC - Nurse 2 - General Ulcer CM Notes Start: 08/28/18 13:55 Freq: Status: Active Protocol: Activity Type Activity Date Activity User E-Sign Co-Sign Detail Recorded Client Recorded Date Recorded By Document 08/28/18 14:54 [id number] 08/28/18 14:56 JF Document 09/05/18 12:01 DV [id number] 09/05/18 12:02 DV Document 09/12/18 11:31 TM [id number] 09/12/18 11:35 TM Document 09/19/18 13:54 TM [id number] 09/19/18 13:58 TM Document 09/26/18 14:16 TM [id number] 09/26/18 14:43 TM 08/28/18 09/05/18 09/12/18 14:54 12:01 11:31 Wound Center Nurse 2 #6 Left Anterior Foot -Time 12:01 11:31 -Correct Patient No Yes Yes -Correct Side, Site, Position No Yes Yes -Correct Procedure No Yes -Procedure Performed No No Yes -Type of Procedure -Clinical Debridement -Post Debridement Size (cm) - Length 2.0 -Post Debridement Size (cm) - Width 0.7 -Post Debridement Size (cm) - Depth 0.2 -Total Square Cm 1.40 -Wound/Ulcer Outcome Not Healed Not Healed Not Healed -Ulcer Cleansing Rinsed/ Irrigated with Saline -Foul Odor after Cleansing No -Bioengineered Tissue No -Topical Lidocaine (%) 4 -Bleeding Controlled with NA Pressure -Treatment Response Procedure Tolerated Well #5 Posterior LLE -Time 12:01 11:32 -Correct Patient No Yes Yes -Correct Side, Site, Position No Yes Yes -Correct Procedure No Yes -Procedure Performed No No Yes -Type of Procedure -Clinical Debridement -Post Debridement Size (cm) - Length 2.4 -Post Debridement Size (cm) - Width 2.0 -Post Debridement Size (cm) - Depth 0.4 -Total Square Cm 4.80 -Wound/Ulcer Outcome Not Healed Not Healed Not Healed -Ulcer Cleansing Rinsed/ Irrigated with Saline -Foul Odor after Cleansing No -Bioengineered Tissue No -Topical Lidocaine (%) 4 -Bleeding Controlled with NA Pressure -Treatment Response Procedure Tolerated Well #4 Left Heel -Time 12:01 11:32 -Correct Patient No Yes Yes -Correct Side, Site, Position No Yes Yes -Correct Procedure No Yes -Procedure Performed No No Yes -Type of Procedure -Clinical Debridement -Post Debridement Size (cm) - Length 3.0 -Post Debridement Size (cm) - Width 5.5 -Post Debridement Size (cm) - Depth 0.2 -Total Square Cm 16.50 -Wound/Ulcer Outcome Not Healed Not Healed Not Healed -Ulcer Cleansing -Foul Odor after Cleansing -Bioengineered Tissue No -Topical Lidocaine (%) 4 -Bleeding Controlled with NA Pressure -Treatment Response Procedure Tolerated Well #3 Right Heel -Time 12:01 11:33 -Correct Patient No Yes Yes -Correct Side, Site, Position No Yes Yes -Correct Procedure No Yes -Procedure Performed No No Yes -Type of Procedure Debridement -Clinical Debridement Selective -Post Debridement Size (cm) - Length 0.6 -Post Debridement Size (cm) - Width 0.1 -Post Debridement Size (cm) - Depth 0.1 -Total Square Cm 0.06 -Wound/Ulcer Outcome Not Healed Not Healed Not Healed -Ulcer Cleansing Rinsed/ Irrigated with Saline -Foul Odor after Cleansing No -Bioengineered Tissue No -Topical Lidocaine (%) 4 -Bleeding Controlled with NA Pressure -Treatment Response Procedure Tolerated Well #2 Right Lateral Ankle -Time 12:01 11:33 -Correct Patient No Yes Yes -Correct Side, Site, Position No Yes Yes -Correct Procedure No Yes -Procedure Performed No No Yes -Type of Procedure Debridement -Clinical Debridement Selective -Post Debridement Size (cm) - Length 2.2 -Post Debridement Size (cm) - Width 2.3 -Post Debridement Size (cm) - Depth 0.6 -Total Square Cm 5.06 -Wound/Ulcer Outcome Not Healed Not Healed Not Healed -Ulcer Cleansing Rinsed/ Irrigated with Saline -Foul Odor after Cleansing No -Bioengineered Tissue No -Topical Lidocaine (%) 4 -Bleeding Controlled with NA Pressure -Treatment Response Procedure Tolerated Well Pain Scale: 0-10 Numeric Is Patient Pain Free? Yes Yes Yes 18 09/26/18 13:54 14:16 Wound Center Nurse 2 #6 Left Anterior Foot -Time 13:54 14:39 -Correct Patient Yes Yes -Correct Side, Site, Position Yes Yes -Correct Procedure Yes Yes -Procedure Performed Yes Yes -Type of Procedure Debridement Debridement -Clinical Debridement Subcutaneous Subcutaneous -Post Debridement Size (cm) - Length 0.8 0.2 -Post Debridement Size (cm) - Width 0.5 0.2 -Post Debridement Size (cm) - Depth 0.1 0.1 -Total Square Cm 0.40 0.04 -Wound/Ulcer Outcome Not Healed Not Healed -Ulcer Cleansing Rinsed/ Rinsed/ Irrigated with Irrigated with Saline Saline -Foul Odor after Cleansing No No -Bioengineered Tissue No No -Topical Lidocaine (%) 5 4 -Bleeding Controlled with Pressure Pressure -Treatment Response Procedure Procedure Tolerated Well Tolerated Well #5 Posterior LLE -Time 13:55 14:40 -Correct Patient Yes Yes -Correct Side, Site, Position Yes Yes -Correct Procedure Yes Yes -Procedure Performed Yes Yes -Type of Procedure Debridement Debridement -Clinical Debridement Subcutaneous Subcutaneous -Post Debridement Size (cm) - Length 1.9 2.1 -Post Debridement Size (cm) - Width 3.0 1.9 -Post Debridement Size (cm) - Depth 0.5 0.2 -Total Square Cm 5.70 3.99 -Wound/Ulcer Outcome Not Healed Not Healed -Ulcer Cleansing Rinsed/ Rinsed/ Irrigated with Irrigated with Saline Saline -Foul Odor after Cleansing No No -Bioengineered Tissue No No -Topical Lidocaine (%) 5 4 -Bleeding Controlled with Pressure Pressure -Treatment Response Procedure Procedure Tolerated Well Tolerated Well #4 Left Heel -Time 13:55 14:40 -Correct Patient Yes Yes -Correct Side, Site, Position Yes Yes -Correct Procedure Yes Yes -Procedure Performed Yes Yes -Type of Procedure Debridement Debridement -Clinical Debridement Subcutaneous Subcutaneous -Post Debridement Size (cm) - Length 1.8 1.9 -Post Debridement Size (cm) - Width 6.9 5.7 -Post Debridement Size (cm) - Depth 0.3 0.3 -Total Square Cm 12.42 10.83 -Wound/Ulcer Outcome Not Healed Not Healed -Ulcer Cleansing Rinsed/ Rinsed/ Irrigated with Irrigated with Saline Saline -Foul Odor after Cleansing No No -Bioengineered Tissue No No -Topical Lidocaine (%) 5 4 -Bleeding Controlled with Pressure Pressure -Treatment Response Procedure Procedure Tolerated Well Tolerated Well #3 Right Heel -Time 13:56 14:41 -Correct Patient Yes Yes -Correct Side, Site, Position Yes Yes -Correct Procedure Yes Yes -Procedure Performed Yes Yes -Type of Procedure Debridement Debridement -Clinical Debridement Subcutaneous Subcutaneous -Post Debridement Size (cm) - Length 1.1 0.6 -Post Debridement Size (cm) - Width 1.1 0.8 -Post Debridement Size (cm) - Depth 0.1 0.1 -Total Square Cm 1.21 0.48 -Wound/Ulcer Outcome Not Healed Not Healed -Ulcer Cleansing Rinsed/ Rinsed/ Irrigated with Irrigated with Saline Saline -Foul Odor after Cleansing No No -Bioengineered Tissue No No -Topical Lidocaine (%) 5 4 -Bleeding Controlled with Pressure Pressure -Treatment Response Procedure Procedure Tolerated Well Tolerated Well #2 Right Lateral Ankle -Time 13:56 14:42 -Correct Patient Yes Yes -Correct Side, Site, Position Yes Yes -Correct Procedure Yes Yes -Procedure Performed Yes Yes -Type of Procedure Debridement Debridement -Clinical Debridement Subcutaneous Subcutaneous -Post Debridement Size (cm) - Length 3.1 3.2 -Post Debridement Size (cm) - Width 2.7 2.4 -Post Debridement Size (cm) - Depth 0.4 0.6 -Total Square Cm 8.37 7.68 -Wound/Ulcer Outcome Not Healed Not Healed -Ulcer Cleansing Rinsed/ Rinsed/ Irrigated with Irrigated with Saline Saline -Foul Odor after Cleansing No No -Bioengineered Tissue No No -Topical Lidocaine (%) 5 4 -Bleeding Controlled with Pressure Pressure -Treatment Response Procedure Procedure Tolerated Well Tolerated Well Pain Scale: 0-10 Numeric Is Patient Pain Free? Yes Yes Wound debrided: heel Laterality: Right Type of Debridement: Excisional debridement Anesthesia Used: 4% Lidocaine Solution Depth: in the subcutaneous layer Percentage of wound debrided: 100 Instrument Used: #15 blade Tissue Removed: fibrous, devitalized subcutaneous, biofilm, slough Severity: Fat Layer Exposed Amount of bleeding with debridement: Mild Bleeding Controlled with: Pressure Patient tolerated procedure well - Additional Wound Wound debrided: dorsal foot Laterality: Left Type of Debridement: Excisional debridement Anesthesia Used: 4% Lidocaine Solution Depth: in the subcutaneous layer Percentage of wound debrided: 100 Instrument Used: #15 blade Tissue Removed: fibrous, devitalized subcutaneous, biofilm, slough Severity: Fat Layer Exposed Amount of bleeding with debridement: Mild Bleeding Controlled with: Pressure Patient tolerated procedure: Patient tolerated procedure well - Additional Wound Wound debrided: heel Laterality: Left Type of Debridement: Excisional debridement Anesthesia Used: 4% Lidocaine Solution Depth: in the subcutaneous layer Percentage of wound debrided: 10 Instrument Used: #15 blade Tissue Removed: fibrous, devitalized subcutaneous, biofilm, slough Severity: Fat Layer Exposed Amount of bleeding with debridement: Mild Bleeding Controlled with: Pressure Patient tolerated procedure: Patient tolerated procedure well - Additional Wound Wound debrided: leg Laterality: Left Type of Debridement: Excisional debridement Anesthesia Used: 4% Lidocaine Solution Depth: in the subcutaneous layer Percentage of wound debrided: 100 Instrument Used: #15 blade Tissue Removed: fibrous, devitalized subcutaneous, biofilm, slough Severity: Fat Layer Exposed Amount of bleeding with debridement: Mild Bleeding Controlled with: Pressure Patient tolerated procedure: Patient tolerated procedure well - Additional Wound Wound debrided: lateral leg Laterality: Right Type of Debridement: Excisional debridement Anesthesia Used: 4% Lidocaine Solution Depth: in the subcutaneous layer Percentage of wound debrided: 100 Instrument Used: #15 blade Tissue Removed: fibrous, devitalized subcutaneous, biofilm, slough Severity: Fat Layer Exposed Amount of bleeding with debridement: Mild Bleeding Controlled with: Pressure Patient tolerated procedure: Patient tolerated procedure well Assessment/Plan Active Problems (Last Reviewed 08/13/18 @ 10:19 by Fernando Patterson MD) Other specified peripheral vascular diseases (Chronic) Unstageable pressure ulcer of left foot (Chronic) Unstageable pressure ulcer of right foot (Chronic) Ulcer of left lower extremity with fat layer exposed (Chronic) Malnutrition (Chronic) Delayed wound healing (Chronic) Edema leg (Chronic) Paralysis (Chronic) Ulcer of right lower extremity with fat layer exposed (Chronic) Osteomyelitis (Chronic) Assessment: Right lateral ankle unstageable pressure ulcer, no cellulitis. Fat layer exposed now. Right heel unstageable pressure ulcer, no cellulitis. Partial fat layer exposed now. Left heel unstageable pressure ulcer no cellulitis. Left posterior / lateral leg unstageable pressure ulcer no cellulitis. Fat layer exposed now. Anterior left ankle ulcer with fat layer exposed. pressure injury without ulcer to right lower leg, stable. Peripheral vascular disease with rest pain. Other comorbidities. Delayed healing. Malnutrition. Paralysis and gait impairment with wheelchair use Plan: I reviewed and discussed his case today. His ulcer sites were debrided in a subcutaneous excisional manner to the right lateral ankle part of the right heel, left leg, and anterior left ankle/foot. It is noted the Santyl has broken down some of the eschar and there is moist tissue that benefited from being excised at this time. To continue Santyl dressing at the longterm facility on a daily basis; to apply with nickel thickness. He had recent noninvasive vascular studies performed which demonstrated noncompressible vessels in which ankle-brachial indices were not calculated. This is consistent with rest pain as well as multisegmental occlusive disease and vessel calcification. He did go for consultation with Dr. De Anda earlier this morning who recommends an angiogram with potential intervention within the next 1-2 weeks. I recommend he proceed forward with this opportunity. His labs on August 17 include a white blood cell count 5.3, ESR 38, C-reactive protein 5.23, and albumin 2.5. His ulcer sites appear fairly stable and I recommend he complete a 6-week course of IV antibiotics; he is under the management of infectious disease. This was completed and I reviewed and discussed his culture results with the infectious disease physician today who also saw him. He will discontinue his PICC line and IV antibiotics at this time. The ulcer was further debrided, irrigated with saline, and a new aerobic and anaerobic culture was obtained as a precaution if the new infection develops over the next couple weeks will have information to treat this. It is noted the initial culture with this contaminant growth was obtained while he was at the longterm facility in the exact manner which this was done cannot be confirmed. I recommend he continue to cleanse the legs prior to Santyl application with gentle Dial soap and warm water cleanse. To avoid soaking. Nursing staff has attempted to set delivery of the supplies to his home prior to discharge from longterm facility and they are not able to do this while he is currently residing at the longterm facility, he was educated on this situation. In case these products are not covered and he does get sent home in a speedy manner and alternative prescription was provided for gauze and Aquacel Ag which is also okay to apply in the event he returns home. 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 I recommend strict offloading to keep pressure off of these friable areas. To continue bilateral donut pillows. It is okay to transfer with bilateral surgical shoes which were ordered today and while he is working with physical therapy. It is okay to elevate the limbs only for very minimal time due to the concern of lack of arterial perfusion. It is okay to be discharged home from a podiatric wound management standpoint. I explained to the patient that I alone and not in charge of his discharge coordination and he will need to work with his care management and social psychologist at his longterm facility to make sure this is a safe transition. He understands that he is at significant risk for limb loss and our goal at this time is to control any infectious process and establish a clear level of perfusion. He asked if hyperbaric oxygen therapy as a treatment option. I explained to him the indications, process, and anticipated management. If he has a gross lack of perfusion to the limbs he is not an appropriate hyperbaric oxygen therapy candidate and we will proceed with the aforementioned vascular surgery workup. To continue with nutritional supplementation, Fred. To continue to use donut offloading pillows to keep pressure off the ulcer sites. I recommended caution with handling and transporting this patient and also with direct application of the donut pillow to the non-blanchable new pressure injury site to the right leg. I recommend he follows up the wound healing center 1 week or call sooner if he has any questions or concerns. I answered all his questions.
--- NOTE | 2018-09-26 15:07 | PN.PCM_ITS ---
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 Current Visit: Yes Code(s): L89.890 - Pressure ulcer of other site, unstageable (3) Unstageable pressure ulcer of right foot Status: Chronic Current Visit: Yes Code(s): L89.890 - Pressure ulcer of other site, unstageable (4) Ulcer of left lower extremity with fat layer exposed Status: Chronic Current Visit: Yes Code(s): L97.922 - Non-pressure chronic ulcer of unspecified part of left lower leg with fat layer exposed (5) Other specified peripheral vascular diseases Status: Chronic Current Visit: Yes Code(s): I73.89 - Other specified peripheral vascular diseases (6) Malnutrition Status: Chronic Current Visit: Yes Code(s): E46 - Unspecified protein- calorie malnutrition (7) Delayed wound healing Status: Chronic Current Visit: Yes Code(s): T14.8XXD - Other injury of unspecified body region, subsequent encounter (8) Edema leg Status: Chronic Current Visit: Yes Code(s): R60.0 - Localized edema (9) Paralysis Status: Chronic Current Visit: Yes Code(s): G83.9 - Paralytic syndrome, unspecified (10) Osteomyelitis Status: Chronic Current Visit: Yes Code(s): M86.9 - Osteomyelitis, unspecified Type of Wound Date of Service: 09/26/18 Chief Complaint: Foot and leg pressure ulcers History of Wound: He resides at [facility]. He denies fever, chill, nausea, vomiting. He does have this 82-year-old male with multiple comorbidities was seen at the wound healing center for pressure ulcers to both heels and legs. His large black scabs are reducing after serial Santyl applications. He resides at [facility] and is hoping to get discharged home soon. He recently completed a vascular surgery evaluation with Dr. De Anda and an Angio with potential intervention will be scheduled within the next 1-2 weeks. He denies fever, chill, nausea, vomiting. He is a paraplegic and presents in a wheelchair. He continues to take Fred supplementation. He did obtain bilateral donut offloading pillows and this helps keep pressure off the sites. He is with his family today. He denies pain. He has been performing dressing changes with Santyl. He denies pain or further inflammation. He was also seen in evaluation by infectious disease and we discussed his case and his culture results. He is eager to get his dressing supplies sent to his house prior to his discharge from the skilled facility. Progress of Wound: Improving quality to all sites - Physical Exam Vital Signs Temp Pulse Resp BP 98.4 F 67 18 134/68 H 09/26/18 13:09 09/26/18 13:09 09/26/18 13:09 09/26/18 13:09 General: Alert, Oriented x3, Cooperative Extremities: No cyanosis, Capillary Refill Less than 3 Seconds, No Calf Tenderness, Diminished Peripheral Pulses, Edema - Mild bilateral, - - Paralysis bilateral lower extremities Skin: Ulcer/ Wound - No purulence, erythema, streaking, odor, or infection. There is peripheral epithelialization noted to the dorsal left foot and the lateral leg and to the posterior heel aspect. There is decreased moist eschar to the posterior right heel and significant improvement of quality of tissue to the right lateral leg. There is no exposed bone. There is exposed deep tissue noted to the lateral ankle I am suspecting this is periosteal or tendon tissue. The peripheral skin is hairless, atrophic, and hyperpigmented. There is no maceration or new shara necrosis or new eschar formation noted. Wound Measurements and Assessment WC - Nurse 1 - General Ulcer Measurement Start: 08/28/18 13:55 Freq: Status: Active Protocol: Activity Type Activity Date Activity User E-Sign Co-Sign Detail Recorded Client Recorded Date Recorded By Document 09/26/18 13:09 MW [id number] 09/26/18 13:21 MW 09/26/18 13:09 Wound Center Nurse 1 [Ulcer Assessment] #6 Left Anterior Foot -Combined with other wound No -Current Size (cm) - Length 0.1 -Current Size (cm) - Width 0.1 -Current Size (cm) - Depth 0.1 -Total Square Cm 0.01 -Photo Taken No -Epithelialization None Present -Tunneling No -Undermining/Tunneling No -Circular Undermining No -Exudate Amt Small (1-33%) -Wound Margin Distinct, Outline Attached -Granulation Amt None Present (0 %) -Granulation Quality N/A -Slough/Fibrin Yes -Necrosis Amt Large (67-100%) -Necrotic Tissue Type Adherent Slough -Structure Exposed N/A -Texture (Denisse-wound Skin Appearance) Assessed Scarring -Moisture (Denisse-wound Skin Appearance Assessed ) Dry/Scaly -Color (Denisse-wound Skin Appearance) Assessed Hemosiderin Staining -Temperature (Denisse-wound Skin No Abnormality Appearance) (Pt Warm) -Tenderness on Palpation (Denisse-wound No Skin Appearance) -Ulcer Cleansing Rinsed/ Irrigated with Saline -Foul Odor after Cleansing No -Anesthetic Used 4% Lidocaine Solution #5 Posterior LLE -Combined with other wound No -Current Size (cm) - Length 2.0 -Current Size (cm) - Width 1.8 -Current Size (cm) - Depth 0.2 -Total Square Cm 3.60 -Photo Taken No -Epithelialization None Present -Tunneling No -Undermining/Tunneling No -Circular Undermining No -Exudate Amt Small (1-33%) -Exudate Type Serosanguineous -Wound Margin Distinct, Outline Attached -Granulation Amt Large (67-100%) -Granulation Quality Red -Slough/Fibrin Yes -Necrosis Amt Small (1-33%) -Necrotic Tissue Type Adherent Slough -Structure Exposed N/A -Texture (Denisse-wound Skin Appearance) Assessed Scarring -Moisture (Denisse-wound Skin Appearance Assessed ) Dry/Scaly -Color (Denisse-wound Skin Appearance) Assessed Hemosiderin Staining -Temperature (Denisse-wound Skin No Abnormality Appearance) (Pt Warm) -Tenderness on Palpation (Denisse-wound No Skin Appearance) -Ulcer Cleansing Rinsed/ Irrigated with Saline -Foul Odor after Cleansing No -Anesthetic Used 4% Lidocaine Solution #4 Left Heel -Combined with other wound No -Current Size (cm) - Length 0.5 -Current Size (cm) - Width 0.7 -Current Size (cm) - Depth 0.1 -Total Square Cm 0.35 -Photo Taken No -Epithelialization None Present -Tunneling No -Undermining/Tunneling No -Circular Undermining No -Exudate Amt None Present (0 %) -Wound Margin Flat & Intact -Granulation Amt None Present (0 %) -Granulation Quality N/A -Slough/Fibrin Yes -Necrosis Amt Large (67-100%) -Necrotic Tissue Type Adherent Slough -Structure Exposed N/A -Texture (Denisse-wound Skin Appearance) Assessed Scarring -Moisture (Denisse-wound Skin Appearance Assessed ) Dry/Scaly -Color (Denisse-wound Skin Appearance) Assessed Hemosiderin Staining -Temperature (Denisse-wound Skin No Abnormality Appearance) (Pt Warm) -Tenderness on Palpation (Denisse-wound No Skin Appearance) -Ulcer Cleansing Rinsed/ Irrigated with Saline -Foul Odor after Cleansing No -Anesthetic Used 4% Lidocaine Solution #3 Right Heel -Combined with other wound No -Current Size (cm) - Length 1.8 -Current Size (cm) - Width 5.6 -Current Size (cm) - Depth 0.3 -Total Square Cm 10.08 -Photo Taken No -Epithelialization None Present -Tunneling No -Undermining/Tunneling No -Circular Undermining No -Exudate Amt Small (1-33%) -Exudate Type Serosanguineous -Wound Margin Distinct, Outline Attached -Granulation Amt Small (1-33%) -Granulation Quality Red -Slough/Fibrin Yes -Necrosis Amt Large (67-100%) -Necrotic Tissue Type Eschar -Structure Exposed N/A -Texture (Denisse-wound Skin Appearance) Assessed Scarring -Moisture (Denisse-wound Skin Appearance Assessed ) Dry/Scaly -Color (Denisse-wound Skin Appearance) Assessed Hemosiderin Staining -Temperature (Denisse-wound Skin No Abnormality Appearance) (Pt Warm) -Ulcer Cleansing Rinsed/ Irrigated with Saline -Foul Odor after Cleansing No -Anesthetic Used 4% Lidocaine Solution #2 Right Lateral Ankle -Combined with other wound No -Current Size (cm) - Length 3.1 -Current Size (cm) - Width 2.4 -Current Size (cm) - Depth 0.6 -Total Square Cm 7.44 -Photo Taken No -Epithelialization None Present -Tunneling No -Undermining/Tunneling No -Circular Undermining No -Exudate Amt Small (1-33%) -Exudate Type Serosanguineous -Wound Margin Distinct, Outline Attached -Granulation Amt Large (67-100%) -Granulation Quality Red -Slough/Fibrin Yes -Necrosis Amt Small (1-33%) -Necrotic Tissue Type Adherent Slough -Structure Exposed N/A -Texture (Denisse-wound Skin Appearance) Assessed Scarring -Moisture (Denisse-wound Skin Appearance Assessed ) Dry/Scaly -Color (Denisse-wound Skin Appearance) Assessed Hemosiderin Staining -Temperature (Denisse-wound Skin No Abnormality Appearance) (Pt Warm) -Tenderness on Palpation (Denisse-wound No Skin Appearance) -Ulcer Cleansing Rinsed/ Irrigated with Saline -Foul Odor after Cleansing No -Anesthetic Used 4% Lidocaine Solution [Edema Assessment] -Lower Limb Edema Present Yes -Right Calf (cm) 28.0 -Right Ankle (cm) 20.6 -Left Calf (cm) 30.0 -Left Ankle (cm) 21.5 WC - Nurse 2 - General Ulcer CM Notes Start: 08/28/18 13:55 Freq: Status: Active Protocol: Activity Type Activity Date Activity User E-Sign Co-Sign Detail Recorded Client Recorded Date Recorded By Document 09/26/18 14:16 [id number] 09/26/18 14:43 09/26/18 14:16 Wound Center Nurse 2 [Procedure/Treatment] #6 Left Anterior Foot -Time 14:39 -Correct Patient Yes -Correct Side, Site, Position Yes -Correct Procedure Yes -Procedure Performed Yes -Type of Procedure Debridement -Clinical Debridement Subcutaneous -Post Debridement Size (cm) - Length 0.2 -Post Debridement Size (cm) - Width 0.2 -Post Debridement Size (cm) - Depth 0.1 -Total Square Cm 0.04 -Wound/Ulcer Outcome Not Healed -Ulcer Cleansing Rinsed/ Irrigated with Saline -Foul Odor after Cleansing No -Bioengineered Tissue No -Topical Lidocaine (%) 4 -Bleeding Controlled with Pressure -Treatment Response Procedure Tolerated Well #5 Posterior LLE -Time 14:40 -Correct Patient Yes -Correct Side, Site, Position Yes -Correct Procedure Yes -Procedure Performed Yes -Type of Procedure Debridement -Clinical Debridement Subcutaneous -Post Debridement Size (cm) - Length 2.1 -Post Debridement Size (cm) - Width 1.9 -Post Debridement Size (cm) - Depth 0.2 -Total Square Cm 3.99 -Wound/Ulcer Outcome Not Healed -Ulcer Cleansing Rinsed/ Irrigated with Saline -Foul Odor after Cleansing No -Bioengineered Tissue No -Topical Lidocaine (%) 4 -Bleeding Controlled with Pressure -Treatment Response Procedure Tolerated Well #4 Left Heel -Time 14:40 -Correct Patient Yes -Correct Side, Site, Position Yes -Correct Procedure Yes -Procedure Performed Yes -Type of Procedure Debridement -Clinical Debridement Subcutaneous -Post Debridement Size (cm) - Length 1.9 -Post Debridement Size (cm) - Width 5.7 -Post Debridement Size (cm) - Depth 0.3 -Total Square Cm 10.83 -Wound/Ulcer Outcome Not Healed -Ulcer Cleansing Rinsed/ Irrigated with Saline -Foul Odor after Cleansing No -Bioengineered Tissue No -Topical Lidocaine (%) 4 -Bleeding Controlled with Pressure -Treatment Response Procedure Tolerated Well #3 Right Heel -Time 14:41 -Correct Patient Yes -Correct Side, Site, Position Yes -Correct Procedure Yes -Procedure Performed Yes -Type of Procedure Debridement -Clinical Debridement Subcutaneous -Post Debridement Size (cm) - Length 0.6 -Post Debridement Size (cm) - Width 0.8 -Post Debridement Size (cm) - Depth 0.1 -Total Square Cm 0.48 -Wound/Ulcer Outcome Not Healed -Ulcer Cleansing Rinsed/ Irrigated with Saline -Foul Odor after Cleansing No -Bioengineered Tissue No -Topical Lidocaine (%) 4 -Bleeding Controlled with Pressure -Treatment Response Procedure Tolerated Well #2 Right Lateral Ankle -Time 14:42 -Correct Patient Yes -Correct Side, Site, Position Yes -Correct Procedure Yes -Procedure Performed Yes -Type of Procedure Debridement -Clinical Debridement Subcutaneous -Post Debridement Size (cm) - Length 3.2 -Post Debridement Size (cm) - Width 2.4 -Post Debridement Size (cm) - Depth 0.6 -Total Square Cm 7.68 -Wound/Ulcer Outcome Not Healed -Ulcer Cleansing Rinsed/ Irrigated with Saline -Foul Odor after Cleansing No -Bioengineered Tissue No -Topical Lidocaine (%) 4 -Bleeding Controlled with Pressure -Treatment Response Procedure Tolerated Well [See Physician Procedure note for Specifics] Pain Scale: 0-10 Numeric [Pain] -Is Patient Pain Free? Yes Musculoskeletal: No Tenderness to Palpation of Joints or Extremities, Muscle Wasting Neurological: - - Lack of sensation bilateral lower extremity Psych/Mental Status: Normal Affect, Appropriate, Anxious Debridement Note Post-Debridement Measurements/Treatment WC - Nurse 2 - General Ulcer CM Notes Start: 08/28/18 13:55 Freq: Status: Active Protocol: Activity Type Activity Date Activity User E-Sign Co-Sign Detail Recorded Client Recorded Date Recorded By Document 08/28/18 14:54 [id number] 08/28/18 14:56 JF Document 09/05/18 12:01 DV [id number] 09/05/18 12:02 DV Document 09/12/18 11:31 TM [id number] 09/12/18 11:35 TM Document 09/19/18 13:54 TM [id number] 09/19/18 13:58 TM Document 09/26/18 14:16 TM [id number] 09/26/18 14:43 TM 08/28/18 09/05/18 09/12/18 14:54 12:01 11:31 Wound Center Nurse 2 #6 Left Anterior Foot -Time 12:01 11:31 -Correct Patient No Yes Yes -Correct Side, Site, Position No Yes Yes -Correct Procedure No Yes -Procedure Performed No No Yes -Type of Procedure -Clinical Debridement -Post Debridement Size (cm) - Length 2.0 -Post Debridement Size (cm) - Width 0.7 -Post Debridement Size (cm) - Depth 0.2 -Total Square Cm 1.40 -Wound/Ulcer Outcome Not Healed Not Healed Not Healed -Ulcer Cleansing Rinsed/ Irrigated with Saline -Foul Odor after Cleansing No -Bioengineered Tissue No -Topical Lidocaine (%) 4 -Bleeding Controlled with NA Pressure -Treatment Response Procedure Tolerated Well #5 Posterior LLE -Time 12:01 11:32 -Correct Patient No Yes Yes -Correct Side, Site, Position No Yes Yes -Correct Procedure No Yes -Procedure Performed No No Yes -Type of Procedure -Clinical Debridement -Post Debridement Size (cm) - Length 2.4 -Post Debridement Size (cm) - Width 2.0 -Post Debridement Size (cm) - Depth 0.4 -Total Square Cm 4.80 -Wound/Ulcer Outcome Not Healed Not Healed Not Healed -Ulcer Cleansing Rinsed/ Irrigated with Saline -Foul Odor after Cleansing No -Bioengineered Tissue No -Topical Lidocaine (%) 4 -Bleeding Controlled with NA Pressure -Treatment Response Procedure Tolerated Well #4 Left Heel -Time 12:01 11:32 -Correct Patient No Yes Yes -Correct Side, Site, Position No Yes Yes -Correct Procedure No Yes -Procedure Performed No No Yes -Type of Procedure -Clinical Debridement -Post Debridement Size (cm) - Length 3.0 -Post Debridement Size (cm) - Width 5.5 -Post Debridement Size (cm) - Depth 0.2 -Total Square Cm 16.50 -Wound/Ulcer Outcome Not Healed Not Healed Not Healed -Ulcer Cleansing -Foul Odor after Cleansing -Bioengineered Tissue No -Topical Lidocaine (%) 4 -Bleeding Controlled with NA Pressure -Treatment Response Procedure Tolerated Well #3 Right Heel -Time 12:01 11:33 -Correct Patient No Yes Yes -Correct Side, Site, Position No Yes Yes -Correct Procedure No Yes -Procedure Performed No No Yes -Type of Procedure Debridement -Clinical Debridement Selective -Post Debridement Size (cm) - Length 0.6 -Post Debridement Size (cm) - Width 0.1 -Post Debridement Size (cm) - Depth 0.1 -Total Square Cm 0.06 -Wound/Ulcer Outcome Not Healed Not Healed Not Healed -Ulcer Cleansing Rinsed/ Irrigated with Saline -Foul Odor after Cleansing No -Bioengineered Tissue No -Topical Lidocaine (%) 4 -Bleeding Controlled with NA Pressure -Treatment Response Procedure Tolerated Well #2 Right Lateral Ankle -Time 12:01 11:33 -Correct Patient No Yes Yes -Correct Side, Site, Position No Yes Yes -Correct Procedure No Yes -Procedure Performed No No Yes -Type of Procedure Debridement -Clinical Debridement Selective -Post Debridement Size (cm) - Length 2.2 -Post Debridement Size (cm) - Width 2.3 -Post Debridement Size (cm) - Depth 0.6 -Total Square Cm 5.06 -Wound/Ulcer Outcome Not Healed Not Healed Not Healed -Ulcer Cleansing Rinsed/ Irrigated with Saline -Foul Odor after Cleansing No -Bioengineered Tissue No -Topical Lidocaine (%) 4 -Bleeding Controlled with NA Pressure -Treatment Response Procedure Tolerated Well Pain Scale: 0-10 Numeric Is Patient Pain Free? Yes Yes Yes 18 09/26/18 13:54 14:16 Wound Center Nurse 2 #6 Left Anterior Foot -Time 13:54 14:39 -Correct Patient Yes Yes -Correct Side, Site, Position Yes Yes -Correct Procedure Yes Yes -Procedure Performed Yes Yes -Type of Procedure Debridement Debridement -Clinical Debridement Subcutaneous Subcutaneous -Post Debridement Size (cm) - Length 0.8 0.2 -Post Debridement Size (cm) - Width 0.5 0.2 -Post Debridement Size (cm) - Depth 0.1 0.1 -Total Square Cm 0.40 0.04 -Wound/Ulcer Outcome Not Healed Not Healed -Ulcer Cleansing Rinsed/ Rinsed/ Irrigated with Irrigated with Saline Saline -Foul Odor after Cleansing No No -Bioengineered Tissue No No -Topical Lidocaine (%) 5 4 -Bleeding Controlled with Pressure Pressure -Treatment Response Procedure Procedure Tolerated Well Tolerated Well #5 Posterior LLE -Time 13:55 14:40 -Correct Patient Yes Yes -Correct Side, Site, Position Yes Yes -Correct Procedure Yes Yes -Procedure Performed Yes Yes -Type of Procedure Debridement Debridement -Clinical Debridement Subcutaneous Subcutaneous -Post Debridement Size (cm) - Length 1.9 2.1 -Post Debridement Size (cm) - Width 3.0 1.9 -Post Debridement Size (cm) - Depth 0.5 0.2 -Total Square Cm 5.70 3.99 -Wound/Ulcer Outcome Not Healed Not Healed -Ulcer Cleansing Rinsed/ Rinsed/ Irrigated with Irrigated with Saline Saline -Foul Odor after Cleansing No No -Bioengineered Tissue No No -Topical Lidocaine (%) 5 4 -Bleeding Controlled with Pressure Pressure -Treatment Response Procedure Procedure Tolerated Well Tolerated Well #4 Left Heel -Time 13:55 14:40 -Correct Patient Yes Yes -Correct Side, Site, Position Yes Yes -Correct Procedure Yes Yes -Procedure Performed Yes Yes -Type of Procedure Debridement Debridement -Clinical Debridement Subcutaneous Subcutaneous -Post Debridement Size (cm) - Length 1.8 1.9 -Post Debridement Size (cm) - Width 6.9 5.7 -Post Debridement Size (cm) - Depth 0.3 0.3 -Total Square Cm 12.42 10.83 -Wound/Ulcer Outcome Not Healed Not Healed -Ulcer Cleansing Rinsed/ Rinsed/ Irrigated with Irrigated with Saline Saline -Foul Odor after Cleansing No No -Bioengineered Tissue No No -Topical Lidocaine (%) 5 4 -Bleeding Controlled with Pressure Pressure -Treatment Response Procedure Procedure Tolerated Well Tolerated Well #3 Right Heel -Time 13:56 14:41 -Correct Patient Yes Yes -Correct Side, Site, Position Yes Yes -Correct Procedure Yes Yes -Procedure Performed Yes Yes -Type of Procedure Debridement Debridement -Clinical Debridement Subcutaneous Subcutaneous -Post Debridement Size (cm) - Length 1.1 0.6 -Post Debridement Size (cm) - Width 1.1 0.8 -Post Debridement Size (cm) - Depth 0.1 0.1 -Total Square Cm 1.21 0.48 -Wound/Ulcer Outcome Not Healed Not Healed -Ulcer Cleansing Rinsed/ Rinsed/ Irrigated with Irrigated with Saline Saline -Foul Odor after Cleansing No No -Bioengineered Tissue No No -Topical Lidocaine (%) 5 4 -Bleeding Controlled with Pressure Pressure -Treatment Response Procedure Procedure Tolerated Well Tolerated Well #2 Right Lateral Ankle -Time 13:56 14:42 -Correct Patient Yes Yes -Correct Side, Site, Position Yes Yes -Correct Procedure Yes Yes -Procedure Performed Yes Yes -Type of Procedure Debridement Debridement -Clinical Debridement Subcutaneous Subcutaneous -Post Debridement Size (cm) - Length 3.1 3.2 -Post Debridement Size (cm) - Width 2.7 2.4 -Post Debridement Size (cm) - Depth 0.4 0.6 -Total Square Cm 8.37 7.68 -Wound/Ulcer Outcome Not Healed Not Healed -Ulcer Cleansing Rinsed/ Rinsed/ Irrigated with Irrigated with Saline Saline -Foul Odor after Cleansing No No -Bioengineered Tissue No No -Topical Lidocaine (%) 5 4 -Bleeding Controlled with Pressure Pressure -Treatment Response Procedure Procedure Tolerated Well Tolerated Well Pain Scale: 0-10 Numeric Is Patient Pain Free? Yes Yes Wound debrided: heel Laterality: Right Type of Debridement: Excisional debridement Anesthesia Used: 4% Lidocaine Solution Depth: in the subcutaneous layer Percentage of wound debrided: 100 Instrument Used: #15 blade Tissue Removed: fibrous, devitalized subcutaneous, biofilm, slough Severity: Fat Layer Exposed Amount of bleeding with debridement: Mild Bleeding Controlled with: Pressure Patient tolerated procedure well - Additional Wound Wound debrided: dorsal foot Laterality: Left Type of Debridement: Excisional debridement Anesthesia Used: 4% Lidocaine Solution Depth: in the subcutaneous layer Percentage of wound debrided: 100 Instrument Used: #15 blade Tissue Removed: fibrous, devitalized subcutaneous, biofilm, slough Severity: Fat Layer Exposed Amount of bleeding with debridement: Mild Bleeding Controlled with: Pressure Patient tolerated procedure: Patient tolerated procedure well - Additional Wound Wound debrided: heel Laterality: Left Type of Debridement: Excisional debridement Anesthesia Used: 4% Lidocaine Solution Depth: in the subcutaneous layer Percentage of wound debrided: 10 Instrument Used: #15 blade Tissue Removed: fibrous, devitalized subcutaneous, biofilm, slough Severity: Fat Layer Exposed Amount of bleeding with debridement: Mild Bleeding Controlled with: Pressure Patient tolerated procedure: Patient tolerated procedure well - Additional Wound Wound debrided: leg Laterality: Left Type of Debridement: Excisional debridement Anesthesia Used: 4% Lidocaine Solution Depth: in the subcutaneous layer Percentage of wound debrided: 100 Instrument Used: #15 blade Tissue Removed: fibrous, devitalized subcutaneous, biofilm, slough Severity: Fat Layer Exposed Amount of bleeding with debridement: Mild Bleeding Controlled with: Pressure Patient tolerated procedure: Patient tolerated procedure well - Additional Wound Wound debrided: lateral leg Laterality: Right Type of Debridement: Excisional debridement Anesthesia Used: 4% Lidocaine Solution Depth: in the subcutaneous layer Percentage of wound debrided: 100 Instrument Used: #15 blade Tissue Removed: fibrous, devitalized subcutaneous, biofilm, slough Severity: Fat Layer Exposed Amount of bleeding with debridement: Mild Bleeding Controlled with: Pressure Patient tolerated procedure: Patient tolerated procedure well Assessment/Plan Active Problems (Last Reviewed 08/13/18 @ 10:19 by Fernando Patterson MD) Other specified peripheral vascular diseases (Chronic) Unstageable pressure ulcer of left foot (Chronic) Unstageable pressure ulcer of right foot (Chronic) Ulcer of left lower extremity with fat layer exposed (Chronic) Malnutrition (Chronic) Delayed wound healing (Chronic) Edema leg (Chronic) Paralysis (Chronic) Ulcer of right lower extremity with fat layer exposed (Chronic) Osteomyelitis (Chronic) Assessment: Right lateral ankle unstageable pressure ulcer, no cellulitis. Fat layer exposed now. Right heel unstageable pressure ulcer, no cellulitis. Partial fat layer exposed now. Left heel unstageable pressure ulcer no cellulitis. Left posterior / lateral leg unstageable pressure ulcer no cellulitis. Fat layer exposed now. Anterior left ankle ulcer with fat layer exposed. pressure injury without ulcer to right lower leg, stable. Peripheral vascular disease with rest pain. Other comorbidities. Delayed healing. Malnutrition. Paralysis and gait impairment with wheelchair use Plan: I reviewed and discussed his case today. His ulcer sites were debrided in a subcutaneous excisional manner to the right lateral ankle part of the right heel, left leg, and anterior left ankle/foot. It is noted the Santyl has broken down some of the eschar and there is moist tissue that benefited from being excised at this time. To continue Santyl dressing at the residential facility on a daily basis; to apply with nickel thickness. He had recent noninvasive vascular studies performed which demonstrated noncompressible vessels in which ankle-brachial indices were not calculated. This is consistent with rest pain as well as multisegmental occlusive disease and vessel calcification. He did go for consultation with Dr. De Anda earlier this morning who recommends an angiogram with potential intervention within the next 1-2 weeks. I recommend he proceed forward with this opportunity. His labs on August 17 include a white blood cell count 5.3, ESR 38, C-reactive protein 5.23, and albumin 2.5. His ulcer sites appear fairly stable and I recommend he complete a 6-week course of IV antibiotics; he is under the management of infectious disease. This was completed and I reviewed and discussed his culture results with the infectious disease physician today who also saw him. He will discontinue his PICC line and IV antibiotics at this time. The ulcer was further debrided, irrigated with saline, and a new aerobic and anaerobic culture was obtained as a precaution if the new infection develops over the next couple weeks will have information to treat this. It is noted the initial culture with this contaminant growth was obtained while he was at the residential facility in the exact manner which this was done cannot be confirmed. I recommend he continue to cleanse the legs prior to Santyl application with gentle Dial soap and warm water cleanse. To avoid soaking. Nursing staff has attempted to set delivery of the supplies to his home prior to discharge from residential facility and they are not able to do this while he is currently residing at the residential facility, he was educated on this situation. In case these products are not covered and he does get sent home in a speedy manner and alternative prescription was provided for gauze and Aquacel Ag which is also okay to apply in the event he returns home. 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 I recommend strict offloading to keep pressure off of these friable areas. To continue bilateral donut pillows. It is okay to transfer with bilateral surgical shoes which were ordered today and while he is working with physical therapy. It is okay to e levate the limbs only for very minimal time due to the concern of lack of arterial perfusion. It is okay to be discharged home from a podiatric wound management standpoint. I explained to the patient that I alone and not in charge of his discharge coordination and he will need to work with his care management and case management social worker at his residential facility to make sure this is a safe transition. He understands that he is at significant risk for limb loss and our goal at this time is to control any infectious process and establish a clear level of perfusion. He asked if hyperbaric oxygen therapy as a treatment option. I explained to him the indications, process, and anticipated management. If he has a gross lack of perfusion to the limbs he is not an appropriate hyperbaric oxygen therapy candidate and we will proceed with the aforementioned vascular surgery workup. To continue with nutritional supplementation, Fred. To continue to use donut offloading pillows to keep pressure off the ulcer sites. I recommended caution with handling and transporting this patient and also with direct application of the donut pillow to the non-blanchable new pressure injury site to the right leg. I recommend he follows up the wound healing center 1 week or call sooner if he has any questions or concerns. I answered all his questions.
== END 2018-09-26 23:59 ==
LOC: WC 13:15
PROVIDERS: Family Provider Family Medicine; PCP Family Medicine; Referring Provider Podiatrist; Visit Provider Podiatrist
DX: I73.89 Other specified peripheral vascular diseases (principal); L89.890 Pressure ulcer of other site, unstageable; R60.0 Localized edema; G83.9 Paralytic syndrome, unspecified; L89.620 Pressure ulcer of left heel, unstageable; L89.610 Pressure ulcer of right heel, unstageable; L97.512 Non-pressure chronic ulcer of other part of right foot with fat layer exposed
CPT/HCPCS: 11042; 11044; 11045; 11047; 87070; 87075; 87077; 87186; 87205; 97597; 97602; 99213; 99215; G0463

== ENCOUNTER → 2018-10-15 15:09 | Outpatient (CLI) | payer MEDICARE, OTHER, SELFPAY ==
--- NOTE | 2018-10-15 15:15 | RAD_ITS ---
STUDY: X-RAY - RIGHT ANKLE REASON FOR EXAM: Male, 83 years old. Open wound with infection of healing of right foot. TECHNIQUE: 3 view(s) of the ankle. COMPARISON: None. FINDINGS: There is generalized osteoporosis. Normal visualized distal tibia and fibula. Normal medial and lateral malleoli. Normal tibiotalar articulation and ankle mortise. Normal visualized talus and small plantar calcaneal spur and enthesophyte. The visualized subtalar, talonavicular, calcaneocuboid and tarsal articulations are normal. Small area of soft tissue lucency along the posterior calcaneus. There is atherosclerosis. There is generalized soft tissue swelling. RAD/Ankle min 3 Views IMPRESSION: Osteoporosis with generalized soft tissue swelling and arteriosclerosis. Soft tissue lucency possible ulceration posterior calcaneus. No osteomyelitis detected. Electronically Signed: Maliha Pollard MD at 7:31 EST , Service support ,
--- NOTE | 2018-10-15 15:20 | RAD_ITS ---
STUDY: X-RAY - RIGHT FOOT CLINICAL: Male, 83 years old. Open wound with infection healed right foot. TECHNIQUE: 3 view(s) of the foot. Superimposed circular wrapping. COMPARISON: 08/11/2018. FINDINGS: There is generalized osteoporosis. There is a plantar calcaneal spur and enthesophyte. Minimal lucent soft tissue along the posterior calcaneus. The adjacent cortex appears intact. There is a superimposed splint.. Normal visualized subtalar, talonavicular, calcaneocuboid, tarsal and tarsometatarsal articulations. Normal metatarsi. Normal metatarsophalangeal joint of the great toe. Normal tibial and fibular sesamoid bones. Normal interphalangeal joint of the great toe. Normal phalanges of the great toe. Normal second through fifth metatarsophalangeal joints. Normal interphalangeal joints and phalanges of the lesser toes. There is atherosclerosis. Unspecific soft tissue prominence along the forefoot. RAD/Foot min 3 Views IMPRESSION: Osteoporosis and degenerative changes, arteriosclerosis, soft tissue swelling. Possible small ulceration posterior calcaneus. No radiographic sign of osteomyelitis. Electronically Signed: Maliha Pollard MD at 7:29 EST , Service support ,
--- NOTE | 2018-10-15 16:48 | RAD_ITS ---
STUDY: X-RAY - SOFT TISSUE NECK REASON FOR EXAM: Male, 83 years old. Patient noting nodules along shunt mid right neck. TECHNIQUE: 2 view(s) of the neck were obtained. COMPARISON: None. FINDINGS: Normal visualized nasopharynx, oropharynx, hypopharynx. Normal epiglottis. Normal visualized subglottic tracheal air column. Normal prevertebral soft tissue structures. There are mild degenerative changes of the cervical spine. 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 There is mildly irregular calcification along the cervical and upper thoracic aspect of the catheter. Still note of mild bilateral carotid artery calcifications. RAD/Neck for Soft Tissue IMPRESSION: 1. Calcification along the cervical and upper thoracic portions of a shallow, indwelling ventriculoperitoneal catheter, which likely accounts for the palpable nodules. 2. Incidental note of bilateral carotid atherosclerotic calcific plaquing. Electronically Signed: Oneal Lind MD at 19:55 EST , Service support ,
[2018-10-15 17:52] LABS: ALB/GLOB Ratio 0.7 RATIO (0.9-2.4); AST(SGOT) 96 U/L (15-37); Alanine Aminotransfer ALT/SGPT 109 U/L (16-61); Albumin, Serum 2.9 g/dL (3.2-5.0); Alkaline Phosphatase 212 U/L (45-117); Anion Gap 6 (5-15); BUN 36 mg/dL (7-18); BUN/Creat Ratio 41.8 RATIO (10-20); Calcium,Total 8.6 mg/dL (8.5-10.1); Chloride 103 mmol/L (98-107); Creatinine, Serum 0.86 mg/dL (0.70-1.30); EST Glomerular Filtration Rate 91 mL/min (>60); Est Glom Filt Rate - Afr Amer 110 mL/min (>60); Globulin 4.1 g/dL (2.2-4.2); Glucose 117 mg/dL (74-106); Potassium 4.7 mmol/L (3.5-5.1); Sodium Level 142 mmol/L (136-145)
[2018-10-15 18:08] LABS: Absolute Lymphocyte Count 1.38 X10^3/ul (0.83-4.51); Basophil# 0.02 X10^3/uL; Basophil% 0.3 % (0-1); Eosinophil# 0.29 X10^3/uL; Eosinophils% 4.8 % (0-5); Hematocrit 37.5 % (40-54); Hemoglobin 11.8 g/dl (13.0-16.5); Lymphocyte # 1.38 X10^3/ul (4.0); Lymphocyte % 22.9 % (19-41); Mean Corp Hgb Conc 31.5 g/gl (32-36); Mean Corpuscular Hgb 30.6 pg (27.0-32.0); Mean Corpuscular Volume 97.4 fL (80-94); Monocyte# 0.37 X10^3/uL; Monocyte% 6.1 % (0-10); Neutrophil # 3.95 X10^3/uL (2.7-7.7); Neutrophil % 65.7 % (47-70); Platelet Count 204 K/mm3 (150-450); RBC Distribution Width CV 13.2 % (11.6-14.6); RBC Distribution Width SD 45.8 fl (35.1-43.9); Red Blood Count 3.85 M/mm3 (4.6-6.2)
[2018-10-15 18:22] LABS: Erythrocyte Sedimentation Rate 14 mm/hr (0-20)
[2018-10-15 18:25] LABS: POSITIVE COUNT NO; POSITIVE DIFFERENTIAL NO; POSITIVE MORPHOLOGY NO
== END ==
PROVIDERS: Podiatrist; Family Provider Family Medicine; PCP Family Medicine; Referring Provider Family Medicine; Visit Provider Family Medicine
DX: M86.9 Osteomyelitis, unspecified (principal); L97.519 Non-pressure chronic ulcer of other part of right foot with unspecified severity; L97.319 Non-pressure chronic ulcer of right ankle with unspecified severity; Z98.2 Presence of cerebrospinal fluid drainage device
CPT/HCPCS: 36415; 70360; 73610; 73630; 80053; 85025; 85652; 86140

== ENCOUNTER 2018-10-24 13:00 | Outpatient (RCR) | payer MEDICARE, OTHER, SELFPAY ==
[2018-09-27 01:43] VITALS: BP 134/68; PULSE 67; RESP 18; TEMP 36.9
[2018-10-03 14:02] VITALS: BP 130/52; PULSE 69; RESP 18; TEMP 36.5
--- NOTE | 2018-10-03 23:04 | PCM.WC.PN ---
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 (2) Ulcer of left lower extremity with fat layer exposed Status: Chronic Current Visit: No Code(s): L97.922 - Non-pressure chronic ulcer of unspecified part of left lower leg with fat layer exposed (3) Other specified peripheral vascular diseases Status: Chronic Current Visit: Yes Code(s): I73.89 - Other specified peripheral vascular diseases (4) Malnutrition Status: Chronic Current Visit: Yes Code(s): E46 - Unspecified protein-calorie malnutrition (5) Delayed wound healing Status: Chronic Current Visit: Yes Code(s): T14.8XXD - Other injury of unspecified body region, subsequent encounter (6) Edema leg Status: Chronic Current Visit: Yes Code(s): R60.0 - Localized edema (7) Paralysis Status: Chronic Current Visit: Yes Code(s): G83.9 - Paralytic syndrome, unspecified (8) Osteomyelitis Status: Chronic Current Visit: Yes Code(s): M86.9 - Osteomyelitis, unspecified (9) Paraplegia Status: Chronic Current Visit: Yes Code(s): G82.20 - Paraplegia, unspecified Comment: due to transverse myelitis Type of Wound Date of Service: 10/03/18 Chief Complaint: Foot and leg pressure ulcers History of Wound: This 83-year-old male with multiple comorbidities was seen at the wound healing center for pressure ulcers to both heels and legs. His large black scabs are reducing after serial Santyl applications. He has returned home and is having trouble coordinating dressing supplies. He recently completed a vascular surgery evaluation with Dr. De Anda and an Angio with potential intervention will be scheduled within the next 1-2 weeks. He denies fever, chill, nausea, vomiting. He is a paraplegic and presents in a wheelchair. He continues to take Fred supplementation. He did obtain bilateral donut offloading pillows and this helps keep pressure off the sites. He is with his family today. He denies pain. He has been performing dressing changes with Santyl. He denies pain or further inflammation. He is concerned of the progressive black scab to the outside of the right lower leg. He denies redness or odor, fever, chills, nausea, or vomiting. Progress of Wound: Improving quality to all sites - Physical Exam Vital Signs Temp Pulse Resp BP 97.7 F L 69 18 130/52 H 10/03/18 14:02 10/03/18 14:02 10/03/18 14:02 10/03/18 14:02 General: Alert, Oriented x3, Cooperative Extremities: No cyanosis, Capillary Refill Less than 3 Seconds, No Calf Tenderness, Diminished Peripheral Pulses, Edema - Mild bilateral lower extremities, - - Paralysis bilateral lower extremities Skin: Ulcer/ Wound - There is no purulence erythema odor or progressive deterioration noted bilateral lower extremities. All ulcer sites have improvement of the wound bed quality since Santyl has been being applied. Additionally the remaining eschar and fibrous tissue was nonadherent and able to be debrided from the right heel. His area of concern to the right lateral leg is noted with well adhered eschar with no drainage or peripheral infection. The peripheral skin is hairless and atrophic bilateral Wound Measurements and Assessment WC - Nurse 1 - General Ulcer Measurement Start: 10/03/18 14:00 Freq: Status: Active Protocol: Activity Type Activity Date Activity User E-Sign Co-Sign Detail Recorded Client Recorded Date Recorded By Document 10/03/18 14:02 DL [id number] 10/03/18 14:21 DL 10/03/18 14:02 Wound Center Nurse 1 [Ulcer Assessment] #7 RLat LE -Current Size (cm) - Length 10 -Current Size (cm) - Width 3 -Current Size (cm) - Depth 0.1 -Total Square Cm 30 -Photo Taken Yes -Exudate Amt Small (1-33%) -Exudate Type Serosanguineous -Wound Margin Distinct, Outline Attached -Granulation Amt None Present (0 %) -Necrosis Amt Large (67-100%) -Necrotic Tissue Type Eschar -Structure Exposed N/A -Texture (Denisse-wound Skin Appearance) Localized Edema -Moisture (Denisse-wound Skin Appearance Dry/Scaly ) -Color (Denisse-wound Skin Appearance) Hemosiderin Staining -Temperature (Denisse-wound Skin No Abnormality Appearance) (Pt Warm) -Ulcer Cleansing Wound Cleanser -Foul Odor after Cleansing No -Anesthetic Used 4% Lidocaine Solution #6 Left Anterior Foot -Current Size (cm) - Length 0.8 -Current Size (cm) - Width 0.5 -Current Size (cm) - Depth 0.1 -Total Square Cm 0.40 -Photo Taken No -Exudate Amt None Present (0 %) -Wound Margin Distinct, Outline Attached -Granulation Amt None Present (0 %) -Necrosis Amt Large (67-100%) -Necrotic Tissue Type Adherent Slough -Structure Exposed N/A -Texture (Denisse-wound Skin Appearance) Localized Edema Scarring -Moisture (Denisse-wound Skin Appearance Dry/Scaly ) -Color (Denisse-wound Skin Appearance) Hemosiderin Staining -Temperature (Denisse-wound Skin No Abnormality Appearance) (Pt Warm) -Tenderness on Palpation (Denisse-wound No Skin Appearance) -Ulcer Cleansing Wound Cleanser -Foul Odor after Cleansing No -Anesthetic Used 4% Lidocaine Solution #5 Posterior LLE -Current Size (cm) - Length 2.1 -Current Size (cm) - Width 2.1 -Current Size (cm) - Depth 0.1 -Total Square Cm 4.41 -Photo Taken No -Exudate Amt Small (1-33%) -Exudate Type Serosanguineous -Wound Margin Distinct, Outline Attached -Granulation Amt Large (67-100%) -Granulation Quality Red -Necrosis Amt Small (1-33%) -Necrotic Tissue Type Adherent Slough -Structure Exposed N/A -Texture (Denisse-wound Skin Appearance) Localized Edema Scarring -Moisture (Denisse-wound Skin Appearance Dry/Scaly ) -Color (Denisse-wound Skin Appearance) Hemosiderin Staining -Temperature (Denisse-wound Skin No Abnormality Appearance) (Pt Warm) -Ulcer Cleansing Wound Cleanser -Foul Odor after Cleansing No -Anesthetic Used 4% Lidocaine Solution #4 Left Heel -Current Size (cm) - Length 0.5 -Current Size (cm) - Width 0.5 -Current Size (cm) - Depth 0.1 -Total Square Cm 0.25 -Photo Taken No -Exudate Amt None Present (0 %) -Wound Margin Distinct, Outline Attached -Granulation Amt None Present (0 %) -Necrosis Amt Small (1-33%) -Necrotic Tissue Type Eschar -Structure Exposed N/A -Texture (Denisse-wound Skin Appearance) Scarring -Moisture (Denisse-wound Skin Appearance Dry/Scaly ) -Color (Denisse-wound Skin Appearance) Hemosiderin Staining -Temperature (Denisse-wound Skin No Abnormality Appearance) (Pt Warm) -Ulcer Cleansing Wound Cleanser -Foul Odor after Cleansing No -Anesthetic Used 4% Lidocaine Solution #3 Right Heel -Current Size (cm) - Length 2.5 -Current Size (cm) - Width 4 -Current Size (cm) - Depth 0.7 -Total Square Cm 10.0 -Photo Taken No -Exudate Amt Small (1-33%) -Exudate Type Sanguineous -Wound Margin Thickened & Rolled Under -Granulation Amt Small (1-33%) -Granulation Quality [employer] -Necrosis Amt Large (67-100%) -Necrotic Tissue Type Eschar -Structure Exposed N/A -Texture (Denisse-wound Skin Appearance) Scarring -Moisture (Denisse-wound Skin Appearance Dry/Scaly ) -Color (Denisse-wound Skin Appearance) Hemosiderin Staining -Temperature (Denisse-wound Skin No Abnormality Appearance) (Pt Warm) -Tenderness on Palpation (Denisse-wound No Skin Appearance) -Ulcer Cleansing Wound Cleanser -Foul Odor after Cleansing No -Anesthetic Used 4% Lidocaine Solution #2 Right Lateral Ankle -Current Size (cm) - Length 2.6 -Current Size (cm) - Width 2.4 -Current Size (cm) - Depth 0.7 -Total Square Cm 6.24 -Photo Taken No -Exudate Amt Medium (34-66%) -Exudate Type Serosanguineous -Wound Margin Thickened & Rolled Under -Granulation Amt Medium (34-66%) -Granulation Quality [employer] Red -Necrosis Amt Medium (34-66%) -Necrotic Tissue Type Adherent Slough -Structure Exposed N/A -Texture (Denisse-wound Skin Appearance) Localized Edema Scarring -Moisture (Denisse-wound Skin Appearance Dry/Scaly ) -Color (Denisse-wound Skin Appearance) Hemosiderin Staining -Temperature (Denisse-wound Skin No Abnormality Appearance) (Pt Warm) -Tenderness on Palpation (Denisse-wound No Skin Appearance) -Ulcer Cleansing Wound Cleanser -Foul Odor after Cleansing No -Anesthetic Used 4% Lidocaine Solution [Edema Assessment] -Right Calf (cm) 30.2 -Right Ankle (cm) 22.7 -Left Calf (cm) 31.1 -Left Ankle (cm) 23 WC - Nurse 2 - General Ulcer CM Notes Start: 10/03/18 14:00 Freq: Status: Active Protocol: Activity Type Activity Date Activity User E-Sign Co-Sign Detail Recorded Client Recorded Date Recorded By Document 10/03/18 15:30 [id number] 10/03/18 15:34 10/03/18 15:30 Wound Center Nurse 2 [Procedure/Treatment] #7 RLat LE -Time 15:31 -Correct Patient Yes -Correct Side, Site, Position Yes -Correct Procedure Yes -Procedure Performed Yes -Type of Procedure Debridement -Clinical Debridement Subcutaneous -Post Debridement Size (cm) - Length 10.1 -Post Debridement Size (cm) - Width 3.1 -Post Debridement Size (cm) - Depth 0.1 -Total Square Cm 31.31 -Wound/Ulcer Outcome Not Healed -Ulcer Cleansing Rinsed/ Irrigated with Saline -Foul Odor after Cleansing No -Bioengineered Tissue No -Topical Lidocaine (%) 4 -Bleeding Controlled with Pressure -Treatment Response Procedure Tolerated Well #6 Left Anterior Foot -Time 15:31 -Correct Patient Yes -Correct Side, Site, Position Yes -Correct Procedure Yes -Procedure Performed Yes -Type of Procedure Debridement -Clinical Debridement Subcutaneous -Post Debridement Size (cm) - Length 0.9 -Post Debridement Size (cm) - Width 0.6 -Post Debridement Size (cm) - Depth 0.1 -Total Square Cm 0.54 -Wound/Ulcer Outcome Not Healed -Ulcer Cleansing Rinsed/ Irrigated with Saline -Foul Odor after Cleansing No -Bioengineered Tissue No -Topical Lidocaine (%) 4 -Bleeding Controlled with Pressure -Treatment Response Procedure Tolerated Well #5 Posterior LLE -Time 15:31 -Correct Patient Yes -Correct Side, Site, Position Yes -Correct Procedure Yes -Procedure Performed Yes -Type of Procedure Debridement -Clinical Debridement Subcutaneous -Post Debridement Size (cm) - Length 2.2 -Post Debridement Size (cm) - Width 2.2 -Post Debridement Size (cm) - Depth 0.1 -Total Square Cm 4.84 -Wound/Ulcer Outcome Not Healed -Ulcer Cleansing Rinsed/ Irrigated with Saline -Foul Odor after Cleansing No -Bioengineered Tissue No -Topical Lidocaine (%) 4 -Bleeding Controlled with Pressure -Treatment Response Procedure Tolerated Well #4 Left Heel -Time 15:32 -Correct Patient Yes -Correct Side, Site, Position Yes -Correct Procedure Yes -Procedure Performed Yes -Type of Procedure Debridement -Clinical Debridement Subcutaneous -Post Debridement Size (cm) - Length 0.6 -Post Debridement Size (cm) - Width 0.6 -Post Debridement Size (cm) - Depth 0.1 -Total Square Cm 0.36 -Wound/Ulcer Outcome Not Healed -Ulcer Cleansing Rinsed/ Irrigated with Saline -Foul Odor after Cleansing No -Bioengineered Tissue No -Topical Lidocaine (%) 4 -Bleeding Controlled with Pressure -Treatment Response Procedure Tolerated Well #3 Right Heel -Time 15:32 -Correct Patient Yes -Correct Side, Site, Position Yes -Correct Procedure Yes -Procedure Performed Yes -Type of Procedure Debridement -Clinical Debridement Subcutaneous -Post Debridement Size (cm) - Length 2.6 -Post Debridement Size (cm) - Width 4.1 -Post Debridement Size (cm) - Depth 0.7 -Total Square Cm 10.66 -Wound/Ulcer Outcome Not Healed -Ulcer Cleansing Rinsed/ Irrigated with Saline -Foul Odor after Cleansing No -Bioengineered Tissue No -Topical Lidocaine (%) 4 -Bleeding Controlled with Pressure -Treatment Response Procedure Tolerated Well #2 Right Lateral Ankle -Time 15:32 -Correct Patient Yes -Correct Side, Site, Position Yes -Correct Procedure Yes -Procedure Performed Yes -Type of Procedure Debridement -Clinical Debridement Subcutaneous -Post Debridement Size (cm) - Length 2.7 -Post Debridement Size (cm) - Width 2.5 -Post Debridement Size (cm) - Depth 0.7 -Total Square Cm 6.75 -Wound/Ulcer Outcome Not Healed -Ulcer Cleansing Rinsed/ Irrigated with Saline -Foul Odor after Cleansing No -Bioengineered Tissue No -Topical Lidocaine (%) 4 -Bleeding Controlled with Pressure -Treatment Response Procedure Tolerated Well [See Physician Procedure note for Specifics] Pain Scale: 0-10 Numeric [Pain] -Is Patient Pain Free? Yes Musculoskeletal: No Tenderness to Palpation of Joints or Extremities, Muscle Wasting Neurological: - - Lack of epicritic sensation bilateral lower extremities Psych/Mental Status: Normal Affect, Appropriate Debridement Note Post-Debridement Measurements/Treatment WC - Nurse 2 - General Ulcer CM Notes Start: 10/03/18 14:00 Freq: Status: Active Protocol: Activity Type Activity Date Activity User E-Sign Co-Sign Detail Recorded Client Recorded Date Recorded By Document 10/03/18 15:30 [id number] 11/07/18 15:34 TM 10/03/18 15:30 Wound Center Nurse 2 #7 RLat LE -Time 15:31 -Correct Patient Yes -Correct Side, Site, Position Yes -Correct Procedure Yes -Procedure Performed Yes -Type of Procedure Debridement -Clinical Debridement Subcutaneous -Post Debridement Size (cm) - Length 10.1 -Post Debridement Size (cm) - Width 3.1 -Post Debridement Size (cm) - Depth 0.1 -Total Square Cm 31.31 -Wound/Ulcer Outcome Not Healed -Ulcer Cleansing Rinsed/ Irrigated with Saline -Foul Odor after Cleansing No -Bioengineered Tissue No -Topical Lidocaine (%) 4 -Bleeding Controlled with Pressure -Treatment Response Procedure Tolerated Well #6 Left Anterior Foot -Time 15:31 -Correct Patient Yes -Correct Side, Site, Position Yes -Correct Procedure Yes -Procedure Performed Yes -Type of Procedure Debridement -Clinical Debridement Subcutaneous -Post Debridement Size (cm) - Length 0.9 -Post Debridement Size (cm) - Width 0.6 -Post Debridement Size (cm) - Depth 0.1 -Total Square Cm 0.54 -Wound/Ulcer Outcome Not Healed -Ulcer Cleansing Rinsed/ Irrigated with Saline -Foul Odor after Cleansing No -Bioengineered Tissue No -Topical Lidocaine (%) 4 -Bleeding Controlled with Pressure -Treatment Response Procedure Tolerated Well #5 Posterior LLE -Time 15:31 -Correct Patient Yes -Correct Side, Site, Position Yes -Correct Procedure Yes -Procedure Performed Yes -Type of Procedure Debridement -Clinical Debridement Subcutaneous -Post Debridement Size (cm) - Length 2.2 -Post Debridement Size (cm) - Width 2.2 -Post Debridement Size (cm) - Depth 0.1 -Total Square Cm 4.84 -Wound/Ulcer Outcome Not Healed -Ulcer Cleansing Rinsed/ Irrigated with Saline -Foul Odor after Cleansing No -Bioengineered Tissue No -Topical Lidocaine (%) 4 -Bleeding Controlled with Pressure -Treatment Response Procedure Tolerated Well #4 Left Heel -Time 15:32 -Correct Patient Yes -Correct Side, Site, Position Yes -Correct Procedure Yes -Procedure Performed Yes -Type of Procedure Debridement -Clinical Debridement Subcutaneous -Post Debridement Size (cm) - Length 0.6 -Post Debridement Size (cm) - Width 0.6 -Post Debridement Size (cm) - Depth 0.1 -Total Square Cm 0.36 -Wound/Ulcer Outcome Not Healed -Ulcer Cleansing Rinsed/ Irrigated with Saline -Foul Odor after Cleansing No -Bioengineered Tissue No -Topical Lidocaine (%) 4 -Bleeding Controlled with Pressure -Treatment Response Procedure Tolerated Well #3 Right Heel -Time 15:32 -Correct Patient Yes -Correct Side, Site, Position Yes -Correct Procedure Yes -Procedure Performed Yes -Type of Procedure Debridement -Clinical Debridement Subcutaneous -Post Debridement Size (cm) - Length 2.6 -Post Debridement Size (cm) - Width 4.1 -Post Debridement Size (cm) - Depth 0.7 -Total Square Cm 10.66 -Wound/Ulcer Outcome Not Healed -Ulcer Cleansing Rinsed/ Irrigated with Saline -Foul Odor after Cleansing No -Bioengineered Tissue No -Topical Lidocaine (%) 4 -Bleeding Controlled with Pressure -Treatment Response Procedure Tolerated Well #2 Right Lateral Ankle -Time 15:32 -Correct Patient Yes -Correct Side, Site, Position Yes -Correct Procedure Yes -Procedure Performed Yes -Type of Procedure Debridement -Clinical Debridement Subcutaneous -Post Debridement Size (cm) - Length 2.7 -Post Debridement Size (cm) - Width 2.5 -Post Debridement Size (cm) - Depth 0.7 -Total Square Cm 6.75 -Wound/Ulcer Outcome Not Healed -Ulcer Cleansing Rinsed/ Irrigated with Saline -Foul Odor after Cleansing No -Bioengineered Tissue No -Topical Lidocaine (%) 4 -Bleeding Controlled with Pressure -Treatment Response Procedure Tolerated Well Pain Scale: 0-10 Numeric Is Patient Pain Free? Yes Wound debrided: lateral ankle Laterality: Right Type of Debridement: Excisional debridement Anesthesia Used: 4% Lidocaine Solution Depth: in the subcutaneous layer Percentage of wound debrided: 100 Instrument Used: #15 blade Tissue Removed: fibrous, devitalized subcutaneous, biofilm, slough Severity: Fat Layer Exposed Amount of bleeding with debridement: Mild Bleeding Controlled with: Pressure Patient tolerated procedure well - Additional Wound Wound debrided: heel Laterality: Right Type of Debridement: Excisional debridement Anesthesia Used: 4% Lidocaine Solution Depth: in the subcutaneous layer Percentage of wound debrided: 100 Instrument Used: #15 blade, Forceps Tissue Removed: fibrous, devitalized subcutaneous, biofilm, slough, eschar Severity: Fat Layer Exposed Amount of bleeding with debridement: Mild Bleeding Controlled with: Pressure Patient tolerated procedure: Patient tolerated procedure well - Additional Wound Wound debrided: lateral leg Patient tolerated procedure: - - This site was not debrided because it is well adhered eschar - Additional Wound Wound debrided: heel Laterality: Left Type of Debridement: Excisional debridement Depth: in the subcutaneous layer Percentage of wound debrided: 100 Instrument Used: #15 blade Tissue Removed: fibrous, devitalized subcutaneous, biofilm, slough Severity: Fat Layer Exposed Amount of bleeding with debridement: Mild Bleeding Controlled with: Pressure Patient tolerated procedure: Patient tolerated procedure well - Additional Wound Wound debrided: posterior leg Laterality: Left Type of Debridement: Excisional debridement Anesthesia Used: 4% Lidocaine Solution Depth: in the subcutaneous layer Percentage of wound debrided: 100 Instrument Used: #15 blade Tissue Removed: fibrous, devitalized subcutaneous, biofilm, slough Severity: Fat Layer Exposed Amount of bleeding with debridement: Mild Bleeding Controlled with: Pressure Patient tolerated procedure: Patient tolerated procedure well - Additional Wound Wound debrided: anterior foot Laterality: Left Type of Debridement: Excisional debridement Anesthesia Used: 4% Lidocaine Solution Depth: in the subcutaneous layer Percentage of wound debrided: 100 Instrument Used: #15 blade Tissue Removed: fibrous, devitalized subcutaneous, biofilm, slough Severity: Fat Layer Exposed Amount of bleeding with debridement: Mild Bleeding Controlled with: Pressure Patient tolerated procedure: Patient tolerated procedure well Assessment/Plan Active Problems (Last Reviewed 08/13/18 @ 10:19 by Fernando Patterson MD) Other specified peripheral vascular diseases (Chronic) Malnutrition (Chronic) Delayed wound healing (Chronic) Edema leg (Chronic) Paralysis (Chronic) 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 Fat layer exposed now. Right heel unstageable pressure ulcer, no cellulitis. Partial fat layer exposed now. Left heel unstageable pressure ulcer no cellulitis. Left posterior / lateral leg unstageable pressure ulcer no cellulitis. Fat layer exposed now. Anterior left ankle ulcer with fat layer exposed. pressure injury without ulcer to right lower leg, stable. Peripheral vascular disease with rest pain. Other comorbidities. Delayed healing. Malnutrition. Paralysis and gait impairment with wheelchair use Plan: I reviewed and discussed his case today. His ulcer sites were debrided in a subcutaneous excisional manner to the right lateral ankle part of the right heel, left leg, and anterior left ankle/foot. It is noted the Santyl has broken down some of the eschar and there is moist tissue that benefited from being excised at this time. To continue Santyl dressing daily; to apply with nickel thickness. He has not been able to get this approved under his insurance and he understands he may have to do self pay for this product. His relates that they did receive a message from the company however did not call back. Nurse Caridad will help them complete this phone call today while they are in clinic. He had recent noninvasive vascular studies performed which demonstrated noncompressible vessels in which ankle-brachial indices were not calculated. This is consistent with rest pain as well as multisegmental occlusive disease and vessel calcification. He did go for consultation with Dr. De Anda previously who recommends an angiogram with potential intervention within the next 1-2 weeks. His labs on August 17 include a white blood cell count 5.3, ESR 38, C-reactive protein 5.23, and albumin 2.5. It is noted he completed a 6-week course of IV antibiotics and infectious disease has also been following him closely. 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 I recommend strict offloading to keep pressure off of these friable areas. To continue bilateral donut pillows. It is okay to transfer with bilateral surgical shoes which were ordered today and while he is working with physical therapy. It is okay to elevate the limbs only for very minimal time due to the concern of lack of arterial perfusion. He understands that he is at significant risk for limb loss and our goal at this time is to control any infectious process and establish a clear level of perfusion. He asked if hyperbaric oxygen therapy as a treatment option. I explained to him the indications, process, and anticipated management. If he has a gross lack of perfusion to the limbs he is not an appropriate hyperbaric oxygen therapy candidate and we will proceed with the aforementioned vascular surgery workup. To continue with nutritional supplementation, Fred. I recommend he follows up the wound healing center 1 week or call sooner if he has any questions or concerns. I answered all his questions.
[2018-10-10 15:15] VITALS: BP 124/57; PULSE 70; RESP 18; TEMP 36.6
--- NOTE | 2018-10-10 17:20 | PCM.WC.PN ---
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 (2) Ulcer of left lower extremity with fat layer exposed Status: Chronic Current Visit: Yes Code(s): L97.922 - Non-pressure chronic ulcer of unspecified part of left lower leg with fat layer exposed (3) Other specified peripheral vascular diseases Status: Chronic Current Visit: Yes Code(s): I73.89 - Other specified peripheral vascular diseases (4) Malnutrition Status: Chronic Current Visit: Yes Code(s): E46 - Unspecified protein-calorie malnutrition (5) Delayed wound healing Status: Chronic Current Visit: Yes Code(s): T14.8XXD - Other injury of unspecified body region, subsequent encounter (6) Edema leg Status: Chronic Current Visit: Yes Code(s): R60.0 - Localized edema (7) Paralysis Status: Chronic Current Visit: Yes Code(s): G83.9 - Paralytic syndrome, unspecified (8) Osteomyelitis Status: Chronic Current Visit: Yes Code(s): M86.9 - Osteomyelitis, unspecified (9) Paraplegia Status: Chronic Current Visit: Yes Code(s): G82.20 - Paraplegia, unspecified Comment: due to transverse myelitis Type of Wound Chief Complaint: Foot and leg pressure ulcers History of Wound: This 83-year-old male with multiple comorbidities was seen at the wound healing center for pressure ulcers to both heels and legs. His large black scabs are reducing after serial Santyl applications. He has returned home and is having trouble coordinating dressing supplies. He recently completed a vascular surgery evaluation with Dr. De Anda and an Angio with potential intervention will be scheduled within the next 1-2 weeks. He denies fever, chill, nausea, vomiting. He is a paraplegic and presents in a wheelchair. He continues to take Fred supplementation. He did obtain bilateral donut offloading pillows and this helps keep pressure off the sites. He is with his family today. He denies pain. He has been performing dressing changes with Santyl. He denies pain or further inflammation. He is concerned of the progressive black scab to the outside of the right lower leg. He denies redness or odor, fever, chills, nausea, or vomiting. His and the patient reported is difficult to truly offload all of the sites while at home. Progress of Wound: Improving quality to all sites - Physical Exam Vital Signs Temp Pulse Resp BP 98 F 70 18 124/57 H 10/10/18 15:15 10/10/18 15:15 10/10/18 15:15 10/10/18 15:15 General: Alert, Oriented x3, Cooperative Extremities: No cyanosis, Capillary Refill Less than 3 Seconds, No Calf Tenderness - Negative Ortega sign bilateral, Diminished Peripheral Pulses, Edema - Mild edema bilateral lower extremities, - - Paralysis bilateral lower extremities. Patient presents in a wheelchair. The compartments remain soft to palpate bilateral lower extremities Skin: Ulcer/ Wound - No purulence, erythema, streaking, odor, or infection. There is continued reduction of eschar formation to all ulcer sites. There is a dry well adhered eschar that has developed to the lateral right leg and there is no drainage from the site today. The peripheral skin is hairless and atrophic bilateral lower extremities Wound Measurements and Assessment WC - Nurse 1 - General Ulcer Measurement Start: 10/03/18 14:00 Freq: Status: Active Protocol: Activity Type Activity Date Activity User E-Sign Co-Sign Detail Recorded Client Recorded Date Recorded By Document 10/10/18 15:15 [facility] [id number] 10/10/18 15:43 [facility] 10/10/18 15:15 Wound Center Nurse 1 [Ulcer Assessment] #7 RLat LE -Combined with other wound No -Current Size (cm) - Length 10.2 -Current Size (cm) - Width 3 -Current Size (cm) - Depth 0.2 -Total Square Cm 30.6 -Photo Taken Yes -Tunneling No -Undermining/Tunneling No -Circular Undermining No -Exudate Amt Small (1-33%) -Exudate Type Serosanguineous -Wound Margin Distinct, Outline Attached -Granulation Amt Small (1-33%) -Granulation Quality Red -Slough/Fibrin Yes -Necrosis Amt Large (67-100%) -Necrotic Tissue Type Eschar -Structure Exposed N/A -Texture (Denisse-wound Skin Appearance) Scarring -Moisture (Denisse-wound Skin Appearance Assessed ) Dry/Scaly -Color (Denisse-wound Skin Appearance) Assessed -Temperature (Denisse-wound Skin No Abnormality Appearance) (Pt Warm) -Tenderness on Palpation (Denisse-wound No Skin Appearance) -Ulcer Cleansing Rinsed/ Irrigated with Saline -Foul Odor after Cleansing No -Anesthetic Used 4% Lidocaine Solution #6 Left Anterior Foot -Combined with other wound No -Current Size (cm) - Length 0.5 -Current Size (cm) - Width 0.4 -Current Size (cm) - Depth 0.1 -Total Square Cm 0.20 -Photo Taken Yes -Tunneling No -Undermining/Tunneling No -Circular Undermining No -Exudate Amt None Present (0 %) -Wound Margin Distinct, Outline Attached -Granulation Amt None Present (0 %) -Slough/Fibrin Yes -Necrosis Amt Large (67-100%) -Necrotic Tissue Type Adherent Slough -Structure Exposed N/A -Texture (Denisse-wound Skin Appearance) Assessed -Moisture (Denisse-wound Skin Appearance Dry/Scaly ) -Color (Denisse-wound Skin Appearance) Assessed -Temperature (Denisse-wound Skin No Abnormality Appearance) (Pt Warm) -Tenderness on Palpation (Denisse-wound No Skin Appearance) -Ulcer Cleansing Rinsed/ Irrigated with Saline -Foul Odor after Cleansing No -Anesthetic Used 4% Lidocaine Solution #5 Posterior LLE -Combined with other wound No -Current Size (cm) - Length 2.1 -Current Size (cm) - Width 2.4 -Current Size (cm) - Depth 0.1 -Total Square Cm 5.04 -Photo Taken No -Tunneling No -Undermining/Tunneling No -Circular Undermining No -Exudate Amt Small (1-33%) -Exudate Type Serosanguineous -Wound Margin Distinct, Outline Attached -Granulation Amt Large (67-100%) -Granulation Quality [place] -Slough/Fibrin Yes -Necrosis Amt Small (1-33%) -Necrotic Tissue Type Adherent Slough -Structure Exposed N/A -Texture (Denisse-wound Skin Appearance) Assessed -Moisture (Denisse-wound Skin Appearance Assessed ) -Color (Denisse-wound Skin Appearance) Assessed -Temperature (Denisse-wound Skin No Abnormality Appearance) (Pt Warm) -Tenderness on Palpation (Denisse-wound No Skin Appearance) -Ulcer Cleansing Rinsed/ Irrigated with Saline -Foul Odor after Cleansing No -Anesthetic Used 4% Lidocaine Solution #4 Left Heel -Combined with other wound No -Current Size (cm) - Length 2.1 -Current Size (cm) - Width 2.4 -Current Size (cm) - Depth 0.5 -Total Square Cm 5.04 -Photo Taken Yes -Tunneling No -Undermining/Tunneling No -Circular Undermining No -Exudate Amt Small (1-33%) -Exudate Type Serosanguineous -Wound Margin Distinct, Outline Attached -Granulation Amt Small (1-33%) -Granulation Quality [place] -Slough/Fibrin Yes -Necrosis Amt Medium (34-66%) -Necrotic Tissue Type Adherent Slough -Structure Exposed N/A -Texture (Denisse-wound Skin Appearance) Assessed Callus -Moisture (Denisse-wound Skin Appearance Assessed ) -Color (Denisse-wound Skin Appearance) Assessed -Temperature (Denisse-wound Skin No Abnormality Appearance) (Pt Warm) -Tenderness on Palpation (Denisse-wound No Skin Appearance) -Ulcer Cleansing Rinsed/ Irrigated with Saline -Foul Odor after Cleansing No -Anesthetic Used 4% Lidocaine Solution #3 Right Heel -Combined with other wound No -Current Size (cm) - Length 2.3 -Current Size (cm) - Width 5.4 -Current Size (cm) - Depth 0.5 -Total Square Cm 12.42 -Photo Taken Yes -Tunneling No -Undermining/Tunneling No -Circular Undermining No -Exudate Amt Small (1-33%) -Exudate Type Serosanguineous -Wound Margin Distinct, Outline Attached -Granulation Amt Medium (34-66%) -Granulation Quality [place] -Slough/Fibrin Yes -Necrosis Amt Small (1-33%) -Necrotic Tissue Type Adherent Slough -Structure Exposed N/A -Texture (Denisse-wound Skin Appearance) Assessed Scarring -Moisture (Denisse-wound Skin Appearance Assessed ) -Color (Denisse-wound Skin Appearance) Assessed -Temperature (Denisse-wound Skin No Abnormality Appearance) (Pt Warm) -Tenderness on Palpation (Denisse-wound No Skin Appearance) -Ulcer Cleansing Rinsed/ Irrigated with Saline -Foul Odor after Cleansing No -Anesthetic Used 4% Lidocaine Solution #2 Right Lateral Ankle -Combined with other wound No -Current Size (cm) - Length 2.4 -Current Size (cm) - Width 2.3 -Current Size (cm) - Depth 0.5 -Total Square Cm 5.52 -Photo Taken No -Epithelialization Small 1-33% -Tunneling No -Undermining/Tunneling No -Circular Undermining No -Exudate Amt Small (1-33%) -Exudate Type Serosanguineous -Wound Margin Distinct, Outline Attached -Granulation Amt Medium (34-66%) -Granulation Quality [place] -Slough/Fibrin No -Necrosis Amt None Present (0 %) -Necrotic Tissue Type Adherent Slough -Structure Exposed N/A -Texture (Denisse-wound Skin Appearance) Assessed Scarring -Moisture (Denisse-wound Skin Appearance Assessed ) -Color (Denisse-wound Skin Appearance) Assessed -Temperature (Denisse-wound Skin No Abnormality Appearance) (Pt Warm) -Tenderness on Palpation (Denisse-wound No Skin Appearance) -Ulcer Cleansing Rinsed/ Irrigated with Saline -Foul Odor after Cleansing No -Anesthetic Used 4% Lidocaine Solution [Edema Assessment] -Lower Limb Edema Present Yes -Right Calf (cm) 31 -Right Ankle (cm) 22.9 -Left Calf (cm) 30.8 -Left Ankle (cm) 23.6 WC - Nurse 2 - General Ulcer CM Notes Start: 10/03/18 14:00 Freq: Status: Active Protocol: Activity Type Activity Date Activity User E-Sign Co-Sign Detail Recorded Client Recorded Date Recorded By Document 10/10/18 16:03 [id number] 10/10/18 16:19 10/10/18 16:03 Wound Center Nurse 2 [Procedure/Treatment] #7 RLat LE -Time 16:14 -Correct Patient Yes -Correct Side, Site, Position Yes -Correct Procedure Yes -Procedure Performed Yes -Type of Procedure Debridement -Clinical Debridement Subcutaneous -Post Debridement Size (cm) - Length 10.3 -Post Debridement Size (cm) - Width 3.1 -Post Debridement Size (cm) - Depth 0.2 -Total Square Cm 31.93 -Wound/Ulcer Outcome Not Healed -Ulcer Cleansing Rinsed/ Irrigated with Saline -Foul Odor after Cleansing No -Bioengineered Tissue No -Topical Lidocaine (%) 4 -Bleeding Controlled with Pressure -Treatment Response Procedure Tolerated Well #6 Left Anterior Foot -Time 16:14 -Correct Patient Yes -Correct Side, Site, Position Yes -Correct Procedure Yes -Procedure Performed Yes -Type of Procedure Debridement -Clinical Debridement Subcutaneous -Post Debridement Size (cm) - Length 0.6 -Post Debridement Size (cm) - Width 0.5 -Post Debridement Size (cm) - Depth 0.1 -Total Square Cm 0.30 -Wound/Ulcer Outcome Not Healed -Ulcer Cleansing Rinsed/ Irrigated with Saline -Foul Odor after Cleansing No -Bioengineered Tissue No -Topical Lidocaine (%) 4 -Bleeding Controlled with Pressure -Treatment Response Procedure Tolerated Well #5 Posterior LLE -Time 16:14 -Correct Patient Yes -Correct Side, Site, Position Yes -Correct Procedure Yes -Procedure Performed Yes -Type of Procedure Debridement -Clinical Debridement Subcutaneous -Post Debridement Size (cm) - Length 2.2 -Post Debridement Size (cm) - Width 2.5 -Post Debridement Size (cm) - Depth 0.1 -Total Square Cm 5.50 -Wound/Ulcer Outcome Not Healed -Ulcer Cleansing Rinsed/ Irrigated with Saline -Foul Odor after Cleansing No -Bioengineered Tissue No -Topical Lidocaine (%) 4 -Bleeding Controlled with Pressure -Treatment Response Procedure Tolerated Well #4 Left Heel -Time 16:15 -Correct Patient Yes -Correct Side, Site, Position Yes -Correct Procedure Yes -Procedure Performed Yes -Type of Procedure Debridement -Clinical Debridement Subcutaneous -Post Debridement Size (cm) - Length 2.2 -Post Debridement Size (cm) - Width 2.5 -Post Debridement Size (cm) - Depth 0.5 -Total Square Cm 5.50 -Wound/Ulcer Outcome Not Healed -Ulcer Cleansing Rinsed/ Irrigated with Saline -Foul Odor after Cleansing No -Bioengineered Tissue No -Topical Lidocaine (%) 4 -Bleeding Controlled with Pressure -Treatment Response Procedure Tolerated Well #3 Right Heel -Time 16:16 -Correct Patient Yes -Correct Side, Site, Position Yes -Correct Procedure Yes -Procedure Performed Yes -Type of Procedure Debridement -Clinical Debridement Subcutaneous -Post Debridement Size (cm) - Length 2.4 -Post Debridement Size (cm) - Width 5.5 -Post Debridement Size (cm) - Depth 0.5 -Total Square Cm 13.20 -Wound/Ulcer Outcome Not Healed -Ulcer Cleansing Rinsed/ Irrigated with Saline -Foul Odor after Cleansing No -Bioengineered Tissue No -Topical Lidocaine (%) 4 -Bleeding Controlled with Pressure -Treatment Response Procedure Tolerated Well #2 Right Lateral Ankle -Time 16:17 -Correct Patient Yes -Correct Side, Site, Position Yes -Correct Procedure Yes -Procedure Performed Yes -Type of Procedure Debridement -Clinical Debridement Subcutaneous -Post Debridement Size (cm) - Length 2.5 -Post Debridement Size (cm) - Width 2.4 -Post Debridement Size (cm) - Depth 0.5 -Total Square Cm 6.00 -Wound/Ulcer Outcome Not Healed -Ulcer Cleansing Rinsed/ Irrigated with Saline -Foul Odor after Cleansing No -Bioengineered Tissue No -Topical Lidocaine (%) 4 -Bleeding Controlled with Pressure -Treatment Response Procedure Tolerated Well [See Physician Procedure note for Specifics] Pain Scale: 0-10 Numeric [Pain] -Is Patient Pain Free? Yes Musculoskeletal: No Tenderness to Palpation of Joints or Extremities, Muscle Wasting Neurological: - - Lack of epicritic sensation light touch bilateral lower extremities Psych/Mental Status: Normal Affect, Appropriate Debridement Note Post-Debridement Measurements/Treatment WC - Nurse 2 - General Ulcer CM Notes Start: 10/03/18 14:00 Freq: Status: Active Protocol: Activity Type Activity Date Activity User E-Sign Co-Sign Detail Recorded Client Recorded Date Recorded By Document 10/03/18 15:30 [id number] 10/03/18 15:34 TM Document 10/10/18 16:03 [id number] 10/10/18 16:19 TM 10/03/18 10/10/18 15:30 16:03 Wound Center Nurse 2 #7 RLat LE -Time 15:31 16:14 -Correct Patient Yes Yes -Correct Side, Site, Position Yes Yes -Correct Procedure Yes Yes -Procedure Performed Yes Yes -Type of Procedure Debridement Debridement -Clinical Debridement Subcutaneous Subcutaneous -Post Debridement Size (cm) - Length 10.1 10.3 -Post Debridement Size (cm) - Width 3.1 3.1 -Post Debridement Size (cm) - Depth 0.1 0.2 -Total Square Cm 31.31 31.93 -Wound/Ulcer Outcome Not Healed Not Healed -Ulcer Cleansing Rinsed/ Rinsed/ Irrigated with Irrigated with Saline Saline -Foul Odor after Cleansing No No -Bioengineered Tissue No No -Topical Lidocaine (%) 4 4 -Bleeding Controlled with Pressure Pressure -Treatment Response Procedure Procedure Tolerated Well Tolerated Well #6 Left Anterior Foot -Time 15:31 16:14 -Correct Patient Yes Yes -Correct Side, Site, Position Yes Yes -Correct Procedure Yes Yes -Procedure Performed Yes Yes -Type of Procedure Debridement Debridement -Clinical Debridement Subcutaneous Subcutaneous -Post Debridement Size (cm) - Length 0.9 0.6 -Post Debridement Size (cm) - Width 0.6 0.5 -Post Debridement Size (cm) - Depth 0.1 0.1 -Total Square Cm 0.54 0.30 -Wound/Ulcer Outcome Not Healed Not Healed -Ulcer Cleansing Rinsed/ Rinsed/ Irrigated with Irrigated with Saline Saline -Foul Odor after Cleansing No No -Bioengineered Tissue No No -Topical Lidocaine (%) 4 4 -Bleeding Controlled with Pressure Pressure -Treatment Response Procedure Procedure Tolerated Well Tolerated Well #5 Posterior LLE -Time 15:31 16:14 -Correct Patient Yes Yes -Correct Side, Site, Position Yes Yes -Correct Procedure Yes Yes -Procedure Performed Yes Yes -Type of Procedure Debridement Debridement -Clinical Debridement Subcutaneous Subcutaneous -Post Debridement Size (cm) - Length 2.2 2.2 -Post Debridement Size (cm) - Width 2.2 2.5 -Post Debridement Size (cm) - Depth 0.1 0.1 -Total Square Cm 4.84 5.50 -Wound/Ulcer Outcome Not Healed Not Healed -Ulcer Cleansing Rinsed/ Rinsed/ Irrigated with Irrigated with Saline Saline -Foul Odor after Cleansing No No -Bioengineered Tissue No No -Topical Lidocaine (%) 4 4 -Bleeding Controlled with Pressure Pressure -Treatment Response Procedure Procedure Tolerated Well Tolerated Well #4 Left Heel -Time 15:32 16:15 -Correct Patient Yes Yes -Correct Side, Site, Position Yes Yes -Correct Procedure Yes Yes -Procedure Performed Yes Yes -Type of Procedure Debridement Debridement -Clinical Debridement Subcutaneous Subcutaneous -Post Debridement Size (cm) - Length 0.6 2.2 -Post Debridement Size (cm) - Width 0.6 2.5 -Post Debridement Size (cm) - Depth 0.1 0.5 -Total Square Cm 0.36 5.50 -Wound/Ulcer Outcome Not Healed Not Healed -Ulcer Cleansing Rinsed/ Rinsed/ Irrigated with Irrigated with Saline Saline -Foul Odor after Cleansing No No -Bioengineered Tissue No No -Topical Lidocaine (%) 4 4 -Bleeding Controlled with Pressure Pressure -Treatment Response Procedure Procedure Tolerated Well Tolerated Well #3 Right Heel -Time 15:32 16:16 -Correct Patient Yes Yes -Correct Side, Site, Position Yes Yes -Correct Procedure Yes Yes -Procedure Performed Yes Yes -Type of Procedure Debridement Debridement -Clinical Debridement Subcutaneous Subcutaneous -Post Debridement Size (cm) - Length 2.6 2.4 -Post Debridement Size (cm) - Width 4.1 5.5 -Post Debridement Size (cm) - Depth 0.7 0.5 -Total Square Cm 10.66 13.20 -Wound/Ulcer Outcome Not Healed Not Healed -Ulcer Cleansing Rinsed/ Rinsed/ Irrigated with Irrigated with Saline Saline -Foul Odor after Cleansing No No -Bioengineered Tissue No No -Topical Lidocaine (%) 4 4 -Bleeding Controlled with Pressure Pressure -Treatment Response Procedure Procedure Tolerated Well Tolerated Well #2 Right Lateral Ankle -Time 15:32 16:17 -Correct Patient Yes Yes -Correct Side, Site, Position Yes Yes -Correct Procedure Yes Yes -Procedure Performed Yes Yes -Type of Procedure Debridement Debridement -Clinical Debridement Subcutaneous Subcutaneous -Post Debridement Size (cm) - Length 2.7 2.5 -Post Debridement Size (cm) - Width 2.5 2.4 -Post Debridement Size (cm) - Depth 0.7 0.5 -Total Square Cm 6.75 6.00 -Wound/Ulcer Outcome Not Healed Not Healed -Ulcer Cleansing Rinsed/ Rinsed/ Irrigated with Irrigated with Saline Saline -Foul Odor after Cleansing No No -Bioengineered Tissue No No -Topical Lidocaine (%) 4 4 -Bleeding Controlled with Pressure Pressure -Treatment Response Procedure Procedure Tolerated Well Tolerated Well Pain Scale: 0-10 Numeric Is Patient Pain Free? Yes Yes Wound debrided: heel Laterality: Right Type of Debridement: Excisional debridement Anesthesia Used: 4% Lidocaine Solution Depth: in the subcutaneous layer Percentage of wound debrided: 100 Instrument Used: #15 blade, Forceps Tissue Removed: fibrous, devitalized subcutaneous, biofilm, slough Severity: Fat Layer Exposed Amount of bleeding with debridement: Mild Bleeding Controlled with: Pressure Patient tolerated procedure well - Additional Wound Wound debrided: lateral ankle Laterality: Right Type of Debridement: Excisional debridement Anesthesia Used: 4% Lidocaine Solution Depth: in the subcutaneous layer Percentage of wound debrided: 100 Instrument Used: #15 blade Tissue Removed: fibrous, devitalized subcutaneous, biofilm, slough Severity: Fat Layer Exposed Amount of bleeding with debridement: Mild Bleeding Controlled with: Pressure Patient tolerated procedure: Patient tolerated procedure well - Additional Wound Wound debrided: dorsal foot Laterality: Left Type of Debridement: Excisional debridement Anesthesia Used: 4% Lidocaine Solution Depth: in the subcutaneous layer Percentage of wound debrided: 100 Instrument Used: #15 blade Tissue Removed: fibrous, devitalized subcutaneous, biofilm, slough Severity: Fat Layer Exposed Amount of bleeding with debridement: Mild Bleeding Controlled with: Pressure Patient tolerated procedure: Patient tolerated procedure well - Additional Wound Wound debrided: heel Laterality: Left Type of Debridement: Excisional debridement Anesthesia Used: 4% Lidocaine Solution Depth: in the subcutaneous layer Percentage of wound debrided: 100 Instrument Used: #15 blade Tissue Removed: fibrous, devitalized subcutaneous, biofilm, slough Severity: Fat Layer Exposed Amount of bleeding with debridement: Mild Bleeding Controlled with: Pressure Patient tolerated procedure: Patient tolerated procedure well - Additional Wound Wound debrided: posterior leg Laterality: Left Type of Debridement: Excisional debridement Anesthesia Used: 4% Lidocaine Solution Depth: in the subcutaneous layer Percentage of wound debrided: 100 Instrument Used: #15 blade Tissue Removed: fibrous, devitalized subcutaneous, biofilm, slough Severity: Fat Layer Exposed Amount of bleeding with debridement: Mild Bleeding Controlled with: Pressure Patient tolerated procedure: Patient tolerated procedure well Assessment/Plan Active Problems (Last Reviewed 08/13/18 @ 10:19 by Fernando Patterson MD) Non-pressure chronic ulcer of other part of left foot with fat layer exposed (Acute) Non-pressure chronic ulcer of other part of right foot with fat layer exposed (Acute) Other specified peripheral vascular diseases (Chronic) Ulcer of left lower extremity with fat layer exposed (Chronic) Malnutrition (Chronic) Delayed wound healing (Chronic) Edema leg (Chronic) Paralysis (Chronic) 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 Fat layer exposed now. Right heel unstageable pressure ulcer, no cellulitis. Partial fat layer exposed now. Left heel unstageable pressure ulcer no cellulitis. Left posterior / lateral leg unstageable pressure ulcer no cellulitis. Fat layer exposed now. Anterior left ankle ulcer with fat layer exposed. pressure injury without ulcer to right lower leg, stable. Peripheral vascular disease with rest pain. Other comorbidities. Delayed healing. Malnutrition. Paralysis and gait impairment with wheelchair use Plan: I reviewed and discussed his case today. His ulcer sites were debrided in a subcutaneous excisional manner to the right lateral ankle part of the right heel, left leg, and anterior left ankle/foot. It is noted the Santyl has broken down some of the eschar and there is moist tissue that benefited from being excised at this time. To continue Santyl dressing daily; to apply with nickel thickness. The lateral leg eschar has further progressed and this is not an open ulcer or wound at this time. This will be monitored very closely and there does not appear to be an infection. He had recent noninvasive vascular studies performed which demonstrated noncompressible vessels in which ankle-brachial indices were not calculated. This is consistent with rest pain as well as multisegmental occlusive disease and vessel calcification. He did go for consultation with Dr. De Anda previously who formed an angioplasty to her in which intervention options were not identified. It is noted he does have perfusion opportunities available to the lower extremity on the right side. His labs on August 17 include a white blood cell count 5.3, ESR 38, C-reactive protein 5.23, and albumin 2.5. It is noted he completed a 6-week course of IV antibiotics and infectious disease has also been following him closely. 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 Clinically he is demonstrating significant improvement. Serial x-rays and labs will be ordered to follow for any osseous progression due to the deep tissue exposure. I recommend strict offloading to keep pressure off of these friable areas. To continue bilateral donut pillows. It is okay to transfer with bilateral surgical shoes which were ordered today and while he is working with physical therapy. It is noted the patient and his are having difficulty offloading the sites at home. This patient would benefit from home health care as well as a pressure reduction mattress. These items are recommended at this time and orders will be placed. It is okay to elevate the limbs only for very minimal time due to the concern of lack of arterial perfusion. He understands that he is at significant risk for limb loss and our goal at this time is to control any infectious process and establish a clear level of perfusion. He asked if hyperbaric oxygen therapy as a treatment option. I explained to him the indications, process, and anticipated management. Pending continued availability this will be considered. To continue with nutritional supplementation, Fred. I recommend he follows up the wound healing center 1 week or call sooner if he has any questions or concerns. I answered all his questions.
--- NOTE | 2018-10-12 16:10 | WC ---
Call from [place] @ [facility]. having a very difficult time caring for Wounds on the 'off-days' Home Health does not come. Requesting daily Home Health visits for approximately 2-weeks. Also requesting a 'pressure-relief' mattress since patient is having a very difficult time off-loading, given the location of his wounds. Requests texted to Dr. Edouard Naranjo who approved. Weekly visits from Home Health, Gel mattress over-lay requested from [facility]. [facility] ([place]) notified of changes.
[2018-10-17 11:17] VITALS: BP 131/70; PULSE 71; RESP 16; TEMP 36.2
--- NOTE | 2018-10-17 12:19 | PCM.WC.PN ---
(1) Ulcer of right foot with fat layer exposed Status: Acute Current Visit: Yes Code(s): L97.512 - Non-pressure chronic ulcer of other part of right foot with fat layer exposed (2) Chronic ulcer of left foot with fat layer exposed Status: Chronic Current Visit: Yes Code(s): L97.522 - Non-pressure chronic ulcer of other part of left foot with fat layer exposed (3) Ulcer of left lower extremity with fat layer exposed Status: Chronic Current Visit: Yes Code(s): L97.922 - Non-pressure chronic ulcer of unspecified part of left lower leg with fat layer exposed (4) Ulcer of right lower extremity with fat layer exposed Status: Chronic Current Visit: Yes Code(s): L97.912 - Non-pressure chronic ulcer of unspecified part of right lower leg with fat layer exposed (5) Osteomyelitis Status: Chronic Current Visit: Yes Code(s): M86.9 - Osteomyelitis, unspecified (6) Other specified peripheral vascular diseases Status: Chronic Current Visit: Yes Code(s): I73.89 - Other specified peripheral vascular diseases (7) Malnutrition Status: Chronic Current Visit: Yes Code(s): E46 - Unspecified protein-calorie malnutrition (8) Delayed wound healing Status: Chronic Current Visit: Yes Code(s): T14.8XXD - Other injury of unspecified body region, subsequent encounter (9) Edema leg Status: Chronic Current Visit: Yes Code(s): R60.0 - Localized edema (10) Paralysis Status: Chronic Current Visit: Yes Code(s): G83.9 - Paralytic syndrome, unspecified (11) Paraplegia Status: Chronic Current Visit: Yes Code(s): G82.20 - Paraplegia, unspecified Comment: due to transverse myelitis Type of Wound Date of Service: 10/17/18 Chief Complaint: Foot and leg pressure ulcers History of Wound: This 83-year-old male with multiple comorbidities was seen at the wound healing center for pressure ulcers to both heels and legs. His large black scabs are reducing after serial Santyl applications. He recently completed a vascular surgery evaluation with Dr. De Anda and an Angio without any identifiable intervention noted. He denies fever, chill, nausea, vomiting. He is a paraplegic and presents in a wheelchair. He continues to take Fred supplementation. He did obtain bilateral donut offloading pillows and this helps keep pressure off the sites. He was also provided with an order for new mattress and this is pending insurance coverage. He is with his today. He denies pain. He has been performing dressing changes with Santyl. He denies pain or further inflammation. He denies redness or odor, fever, chills, nausea, or vomiting. He does complain of right heel and leg ulcer pain which was not initially there. He did also obtain updated labs and x-rays last visit and would like to review the results. Progress of Wound: Improving quality to all sites - Physical Exam Vital Signs Temp Pulse Resp BP 97.1 F L 71 16 131/70 H 10/17/18 11:17 10/17/18 11:17 10/17/18 11:17 10/17/18 11:17 General: Alert, Oriented x3, Cooperative Extremities: No cyanosis, No Calf Tenderness - Negative Ayanna and Ortega bilateral, Diminished Peripheral Pulses, Edema - Mild bilateral lower extremities Skin: Ulcer/ Wound - No purulence, erythema, streaking, odor, or infection. There is continued reduction of eschar and fibrous tissue to all ulcer sites. There is improved granulation tissue. The lateral right ankle and heel to probe to deep capsular tissue not directly to the bone. There is no fluctuance or bogginess on palpation bilateral lower extremities. The peripheral skin is hairless and atrophic. Wound Measurements and Assessment WC - Nurse 1 - General Ulcer Measurement Start: 10/03/18 14:00 Freq: Status: Active Protocol: Activity Type Activity Date Activity User E-Sign Co-Sign Detail Recorded Client Recorded Date Recorded By Document 10/17/18 11:17 [facility] [id number] 10/17/18 11:27 [facility] 10/17/18 11:17 Wound Center Nurse 1 [Ulcer Assessment] #7 RLat LE -Combined with other wound No -Current Size (cm) - Length 9.5 -Current Size (cm) - Width 3 -Current Size (cm) - Depth 0.2 -Total Square Cm 28.5 -Photo Taken No -Epithelialization None Present -Tunneling No -Undermining/Tunneling No -Circular Undermining No -Exudate Amt Medium (34-66%) -Exudate Type Serosanguineous -Wound Margin Distinct, Outline Attached -Granulation Amt Small (1-33%) -Granulation Quality [place] -Necrosis Amt Large (67-100%) -Necrotic Tissue Type Adherent Slough -Texture (Denisse-wound Skin Appearance) Scarring -Moisture (Denisse-wound Skin Appearance Dry/Scaly ) -Color (Denisse-wound Skin Appearance) Assessed Hemosiderin Staining -Temperature (Denisse-wound Skin No Abnormality Appearance) (Pt Warm) -Tenderness on Palpation (Denisse-wound No Skin Appearance) -Ulcer Cleansing Rinsed/ Irrigated with Saline -Foul Odor after Cleansing No -Anesthetic Used 5% Lidocaine Gel #6 Left Anterior Foot -Combined with other wound No -Current Size (cm) - Length 0.1 -Current Size (cm) - Width 0.1 -Current Size (cm) - Depth 0.1 -Total Square Cm 0.01 -Photo Taken No -Epithelialization None Present -Tunneling No -Undermining/Tunneling No -Circular Undermining No -Exudate Amt None Present (0 %) -Wound Margin Distinct, Outline Attached -Granulation Amt None Present (0 %) -Slough/Fibrin Yes -Necrosis Amt Large (67-100%) -Necrotic Tissue Type Eschar -Texture (Denisse-wound Skin Appearance) Scarring -Moisture (Denisse-wound Skin Appearance Dry/Scaly ) -Color (Denisse-wound Skin Appearance) Assessed -Temperature (Denisse-wound Skin No Abnormality Appearance) (Pt Warm) -Tenderness on Palpation (Denisse-wound No Skin Appearance) -Ulcer Cleansing Rinsed/ Irrigated with Saline -Foul Odor after Cleansing No -Anesthetic Used 5% Lidocaine Gel #5 Posterior LLE -Combined with other wound No -Current Size (cm) - Length 2.3 -Current Size (cm) - Width 2.5 -Current Size (cm) - Depth 1 -Total Square Cm 5.75 -Photo Taken No -Epithelialization None Present -Tunneling No -Undermining/Tunneling No -Circular Undermining No -Exudate Amt Medium (34-66%) -Exudate Type Serosanguineous -Wound Margin Distinct, Outline Attached -Granulation Amt Small (1-33%) -Granulation Quality Red -Slough/Fibrin Yes -Necrosis Amt Large (67-100%) -Necrotic Tissue Type Adherent Slough -Texture (Denisse-wound Skin Appearance) Scarring -Moisture (Denisse-wound Skin Appearance Dry/Scaly ) -Color (Denisse-wound Skin Appearance) Assessed Rubor -Temperature (Denisse-wound Skin No Abnormality Appearance) (Pt Warm) -Tenderness on Palpation (Denisse-wound No Skin Appearance) -Ulcer Cleansing Rinsed/ Irrigated with Saline -Foul Odor after Cleansing No -Anesthetic Used 5% Lidocaine Gel #4 Left Heel -Combined with other wound No -Current Size (cm) - Length 0.2 -Current Size (cm) - Width 0.3 -Current Size (cm) - Depth 0.1 -Total Square Cm 0.06 -Photo Taken No -Epithelialization None Present -Tunneling No -Undermining/Tunneling No -Circular Undermining No -Exudate Amt None Present (0 %) -Wound Margin Distinct, Outline Attached -Granulation Amt None Present (0 %) -Slough/Fibrin Yes -Necrosis Amt Large (67-100%) -Necrotic Tissue Type Eschar -Structure Exposed N/A -Texture (Denisse-wound Skin Appearance) Scarring -Moisture (Denisse-wound Skin Appearance Dry/Scaly ) -Color (Denisse-wound Skin Appearance) Assessed -Temperature (Denisse-wound Skin No Abnormality Appearance) (Pt Warm) -Tenderness on Palpation (Denisse-wound No Skin Appearance) -Ulcer Cleansing Rinsed/ Irrigated with Saline -Foul Odor after Cleansing No -Anesthetic Used 5% Lidocaine Gel #3 Right Heel -Combined with other wound No -Current Size (cm) - Length 2.5 -Current Size (cm) - Width 6 -Current Size (cm) - Depth 0.5 -Total Square Cm 15.0 -Photo Taken No -Epithelialization None Present -Tunneling No -Undermining/Tunneling No -Circular Undermining No -Exudate Amt Medium (34-66%) -Exudate Type Serosanguineous -Wound Margin Distinct, Outline Attached -Granulation Amt Small (1-33%) -Granulation Quality [place] -Slough/Fibrin Yes -Necrosis Amt Large (67-100%) -Necrotic Tissue Type Adherent Slough -Texture (Denisse-wound Skin Appearance) Scarring -Moisture (Denisse-wound Skin Appearance Dry/Scaly ) -Color (Denisse-wound Skin Appearance) Assessed Rubor -Temperature (Denisse-wound Skin No Abnormality Appearance) (Pt Warm) -Tenderness on Palpation (Denisse-wound Yes Skin Appearance) -Ulcer Cleansing Rinsed/ Irrigated with Saline -Foul Odor after Cleansing No -Anesthetic Used 5% Lidocaine Gel #2 Right Lateral Ankle -Combined with other wound No -Current Size (cm) - Length 2.7 -Current Size (cm) - Width 2.1 -Current Size (cm) - Depth 0.4 -Total Square Cm 5.67 -Photo Taken No -Epithelialization None Present -Tunneling No -Undermining/Tunneling No -Circular Undermining No -Exudate Amt Medium (34-66%) -Exudate Type Serosanguineous -Wound Margin Distinct, Outline Attached -Granulation Amt Small (1-33%) -Granulation Quality Red -Slough/Fibrin Yes -Necrosis Amt Large (67-100%) -Necrotic Tissue Type Adherent Slough -Texture (Denisse-wound Skin Appearance) Scarring -Moisture (Denisse-wound Skin Appearance Assessed ) Dry/Scaly -Color (Denisse-wound Skin Appearance) Assessed Rubor -Temperature (Denisse-wound Skin No Abnormality Appearance) (Pt Warm) -Tenderness on Palpation (Denisse-wound No Skin Appearance) -Ulcer Cleansing Rinsed/ Irrigated with Saline -Foul Odor after Cleansing No -Anesthetic Used 5% Lidocaine Gel [Edema Assessment] -Lower Limb Edema Present Yes -Right Calf (cm) 29 -Right Ankle (cm) 22 -Left Calf (cm) 31.2 -Left Ankle (cm) 22.8 Musculoskeletal: No Tenderness to Palpation of Joints or Extremities, Muscle Wasting Neurological: - - Lack of sensation to light touch bilateral lower extremities. Paralysis noted bilateral lower extremities. Patient presents in a wheelchair. Psych/Mental Status: Normal Affect, Appropriate Debridement Note Post-Debridement Measurements/Treatment WC - Nurse 2 - General Ulcer CM Notes Start: 10/03/18 14:00 Freq: Status: Active Protocol: Activity Type Activity Date Activity User E-Sign Co-Sign Detail Recorded Client Recorded Date Recorded By Document 10/03/18 15:30 TM [id number] 10/03/18 15:34 TM Document 10/10/18 16:03 [id number] 10/10/18 16:19 TM 10/03/18 10/10/18 15:30 16:03 Wound Center Nurse 2 #7 RLat LE -Time 15:31 16:14 -Correct Patient Yes Yes -Correct Side, Site, Position Yes Yes -Correct Procedure Yes Yes -Procedure Performed Yes Yes -Type of Procedure Debridement Debridement -Clinical Debridement Subcutaneous Subcutaneous -Post Debridement Size (cm) - Length 10.1 10.3 -Post Debridement Size (cm) - Width 3.1 3.1 -Post Debridement Size (cm) - Depth 0.1 0.2 -Total Square Cm 31.31 31.93 -Wound/Ulcer Outcome Not Healed Not Healed -Ulcer Cleansing Rinsed/ Rinsed/ Irrigated with Irrigated with Saline Saline -Foul Odor after Cleansing No No -Bioengineered Tissue No No -Topical Lidocaine (%) 4 4 -Bleeding Controlled with Pressure Pressure -Treatment Response Procedure Procedure Tolerated Well Tolerated Well #6 Left Anterior Foot -Time 15:31 16:14 -Correct Patient Yes Yes -Correct Side, Site, Position Yes Yes -Correct Procedure Yes Yes -Procedure Performed Yes Yes -Type of Procedure Debridement Debridement -Clinical Debridement Subcutaneous Subcutaneous -Post Debridement Size (cm) - Length 0.9 0.6 -Post Debridement Size (cm) - Width 0.6 0.5 -Post Debridement Size (cm) - Depth 0.1 0.1 -Total Square Cm 0.54 0.30 -Wound/Ulcer Outcome Not Healed Not Healed -Ulcer Cleansing Rinsed/ Rinsed/ Irrigated with Irrigated with Saline Saline -Foul Odor after Cleansing No No -Bioengineered Tissue No No -Topical Lidocaine (%) 4 4 -Bleeding Controlled with Pressure Pressure -Treatment Response Procedure Procedure Tolerated Well Tolerated Well #5 Posterior LLE -Time 15:31 16:14 -Correct Patient Yes Yes -Correct Side, Site, Position Yes Yes -Correct Procedure Yes Yes -Procedure Performed Yes Yes -Type of Procedure Debridement Debridement -Clinical Debridement Subcutaneous Subcutaneous -Post Debridement Size (cm) - Length 2.2 2.2 -Post Debridement Size (cm) - Width 2.2 2.5 -Post Debridement Size (cm) - Depth 0.1 0.1 -Total Square Cm 4.84 5.50 -Wound/Ulcer Outcome Not Healed Not Healed -Ulcer Cleansing Rinsed/ Rinsed/ Irrigated with Irrigated with Saline Saline -Foul Odor after Cleansing No No -Bioengineered Tissue No No -Topical Lidocaine (%) 4 4 -Bleeding Controlled with Pressure Pressure -Treatment Response Procedure Procedure Tolerated Well Tolerated Well #4 Left Heel -Time 15:32 16:15 -Correct Patient Yes Yes -Correct Side, Site, Position Yes Yes -Correct Procedure Yes Yes -Procedure Performed Yes Yes -Type of Procedure Debridement Debridement -Clinical Debridement Subcutaneous Subcutaneous -Post Debridement Size (cm) - Length 0.6 2.2 -Post Debridement Size (cm) - Width 0.6 2.5 -Post Debridement Size (cm) - Depth 0.1 0.5 -Total Square Cm 0.36 5.50 -Wound/Ulcer Outcome Not Healed Not Healed -Ulcer Cleansing Rinsed/ Rinsed/ Irrigated with Irrigated with Saline Saline -Foul Odor after Cleansing No No -Bioengineered Tissue No No -Topical Lidocaine (%) 4 4 -Bleeding Controlled with Pressure Pressure -Treatment Response Procedure Procedure Tolerated Well Tolerated Well #3 Right Heel -Time 15:32 16:16 -Correct Patient Yes Yes -Correct Side, Site, Position Yes Yes -Correct Procedure Yes Yes -Procedure Performed Yes Yes -Type of Procedure Debridement Debridement -Clinical Debridement Subcutaneous Subcutaneous -Post Debridement Size (cm) - Length 2.6 2.4 -Post Debridement Size (cm) - Width 4.1 5.5 -Post Debridement Size (cm) - Depth 0.7 0.5 -Total Square Cm 10.66 13.20 -Wound/Ulcer Outcome Not Healed Not Healed -Ulcer Cleansing Rinsed/ Rinsed/ Irrigated with Irrigated with Saline Saline -Foul Odor after Cleansing No No -Bioengineered Tissue No No -Topical Lidocaine (%) 4 4 -Bleeding Controlled with Pressure Pressure -Treatment Response Procedure Procedure Tolerated Well Tolerated Well #2 Right Lateral Ankle -Time 15:32 16:17 -Correct Patient Yes Yes -Correct Side, Site, Position Yes Yes -Correct Procedure Yes Yes -Procedure Performed Yes Yes -Type of Procedure Debridement Debridement -Clinical Debridement Subcutaneous Subcutaneous -Post Debridement Size (cm) - Length 2.7 2.5 -Post Debridement Size (cm) - Width 2.5 2.4 -Post Debridement Size (cm) - Depth 0.7 0.5 -Total Square Cm 6.75 6.00 -Wound/Ulcer Outcome Not Healed Not Healed -Ulcer Cleansing Rinsed/ Rinsed/ Irrigated with Irrigated with Saline Saline -Foul Odor after Cleansing No No -Bioengineered Tissue No No -Topical Lidocaine (%) 4 4 -Bleeding Controlled with Pressure Pressure -Treatment Response Procedure Procedure Tolerated Well Tolerated Well Pain Scale: 0-10 Numeric Is Patient Pain Free? Yes Yes Wound debrided: foot dorsum Laterality: Left Type of Debridement: Excisional debridement Anesthesia Used: 4% Lidocaine Solution Depth: in the subcutaneous layer Percentage of wound debrided: 100 Instrument Used: 3mm curette Tissue Removed: fibrous, devitalized subcutaneous, biofilm, slough Severity: Fat Layer Exposed Amount of bleeding with debridement: Mild Bleeding Controlled with: Pressure Patient tolerated procedure well - Additional Wound Wound debrided: heel Laterality: Left Type of Debridement: Excisional debridement Anesthesia Used: 4% Lidocaine Solution Depth: in the subcutaneous layer Percentage of wound debrided: 100 Instrument Used: 3mm curette Tissue Removed: fibrous, devitalized subcutaneous, biofilm, slough Severity: Fat Layer Exposed Amount of bleeding with debridement: Mild Bleeding Controlled with: Pressure Patient tolerated procedure: Patient tolerated procedure well - Additional Wound Wound debrided: lateral/posterior leg Laterality: Left Type of Debridement: Excisional debridement Anesthesia Used: 4% Lidocaine Solution Depth: in the subcutaneous layer Percentage of wound debrided: 100 Instrument Used: 3mm curette Tissue Removed: fibrous, devitalized subcutaneous, biofilm, slough Severity: Fat Layer Exposed Amount of bleeding with debridement: Mild Bleeding Controlled with: Pressure Patient tolerated procedure: Patient tolerated procedure well - Additional Wound Wound debrided: heel Laterality: Right Type of Debridement: Excisional debridement Anesthesia Used: 4% Lidocaine Solution Depth: in the subcutaneous layer Percentage of wound debrided: 100 Instrument Used: 3mm curette Tissue Removed: fibrous, devitalized subcutaneous, biofilm, slough Severity: Fat Layer Exposed Amount of bleeding with debridement: Mild Bleeding Controlled with: Pressure Patient tolerated procedure: Patient tolerated procedure well - Additional Wound Wound debrided: lateral ankle Laterality: Right Type of Debridement: Excisional debridement Anesthesia Used: 4% Lidocaine Solution Depth: in the subcutaneous layer Percentage of wound debrided: 100 Instrument Used: 3mm curette Tissue Removed: fibrous, devitalized subcutaneous, biofilm, slough Severity: Fat Layer Exposed Amount of bleeding with debridement: Mild Bleeding Controlled with: Pressure Patient tolerated procedure: Patient tolerated procedure well - Additional Wound Wound debrided: lateral leg Laterality: Right Type of Debridement: Excisional debridement Anesthesia Used: 4% Lidocaine Solution Depth: in the subcutaneous layer Percentage of wound debrided: 100 Instrument Used: 3mm curette Tissue Removed: fibrous, devitalized subcutaneous, biofilm, slough Severity: Fat Layer Exposed Amount of bleeding with debridement: Mild Bleeding Controlled with: Pressure Patient tolerated procedure: Patient tolerated procedure well Assessment/Plan Active Problems (Last Reviewed 08/13/18 @ 10:19 by Fernando Patterson MD) Ulcer of right foot with fat layer exposed (Acute) Chronic ulcer of left foot with fat layer exposed (Chronic) Paralysis (Acute) Non-pressure chronic ulcer of other part of left foot with fat layer exposed (Acute) Non-pressure chronic ulcer of other part of right foot with fat layer exposed (Acute) Other specified peripheral vascular diseases (Chronic) Ulcer of left lower extremity with fat layer exposed (Chronic) Malnutrition (Chronic) Delayed wound healing (Chronic) Edema leg (Chronic) Paralysis (Chronic) 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 Fat layer exposed now. Right heel unstageable pressure ulcer, no cellulitis. Partial fat layer exposed now. Left heel unstageable pressure ulcer no cellulitis. Left posterior / lateral leg unstageable pressure ulcer no cellulitis. Fat layer exposed now. Anterior left ankle/foot dorsum ulcer with fat layer exposed. pressure injury without ulcer to right lower leg, stable. Right leg ulcer fat layer exposed, eschar reducing. Left leg ulcer fat layer exposed. Peripheral vascular disease with rest pain. Other comorbidities. Delayed healing. Malnutrition. Paralysis and gait impairment with wheelchair use Plan: I reviewed and discussed his case today. His ulcer sites were debrided in a subcutaneous excisional manner to the right lateral ankle part of the right heel, left leg, and anterior left ankle/foot. It is noted the Santyl has broken down some of the eschar and there is moist tissue that benefited from being excised at this time. To continue Santyl dressing daily; to apply with nickel thickness. The lateral leg eschar has further progressed and this is not an open ulcer or wound at this time. This will be monitored very closely and there does not appear to be an infection. He had recent noninvasive vascular studies performed which demonstrated noncompressible vessels in which ankle-brachial indices were not calculated. This is consistent with rest pain as well as multisegmental occlusive disease and vessel calcification. He did go for consultation with Dr. De Anda previously who formed an angioplasty to her in which intervention options were not identified. It is noted he does have perfusion opportunities available to the lower extremity on the right side. His labs were updated and discussed in his white blood cell count is 6.0, sedimentation rate 14, and hemoglobin A1c 5.8%. His updated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 x-rays do not demonstrate osseous destruction, periosteal reaction, soft tissue emphysema, acute fracture dislocation, or foreign body. Vessel calcification is seen on plain x-ray consistent with vessel disease. It is noted he completed a 6-week course of IV antibiotics and infectious disease has also been following him closely. He had a previous MRI which demonstrated mild marrow edema to the left calcaneus and lateral ankle consistent with osteomyelitis. Due to delayed healing, pain, and continued deep tissue exposure this is consistent with chronic ostium myelitis. I recommend hyperbaric oxygen therapy to optimize healing; this is medically necessary to optimize healing. He watched the video and reports he is amenable and able to travel to the wound healing center daily for this. His last chest x-ray and EKG were reviewed from July. It is noted his ejection fraction is 65%. A referral for wound care center provider for consultation was initiated today. Insurance prior authorization will also be started. The benefits, risks, complications, anticipated healing time and management were discussed in detail the patient. He understands and elects to proceed with HBO at this time. I answered all his questions. I recommend strict offloading to keep pressure off of these friable areas. To continue bilateral donut pillows. It is okay to transfer with bilateral surgical shoes which were ordered today and while he is working with physical therapy. It is noted the patient and his are having difficulty offloading the sites at home. This patient would benefit from home health care as well as a pressure reduction mattress. These items are recommended at this time and orders will be placed. It is okay to elevate the limbs only for very minimal time due to the concern of lack of arterial perfusion. He understands that he is at significant risk for limb loss and our goal at this time is to control any infectious process and establish a clear level of perfusion. To continue with nutritional supplementation, Fred. Due to the improvement in quality tissue after Santyl use, I recommend application of advanced wound care product in the operating room after versa jet aggressive subcutaneous excisional debridement. He is amenable to go to the operating room. I recommend amnio fill and epi cord application. He understands he will need a medical clearance prior to proceeding. The [facility] surgical nurse coordinator will contact him. The benefits, risks, complications, anticipated healing time management were discussed in detail with the patient in regard to the surgical procedure. He understands this is usually a staged procedure and this is for limb salvage purposes. Surgical consent will need to be signed. This is medically necessary to optimize healing. I recommend he follows up the wound healing center 1 week or call sooner if he has any questions or concerns. I answered all his questions.
--- NOTE | 2018-10-24 08:35 | PCM.CONHBO ---
(1) Osteomyelitis Status: Chronic Current Visit: Yes Code(s): M86.9 - Osteomyelitis, unspecified (2) Ulcer of right foot with fat layer exposed Status: Chronic Current Visit: Yes Code(s): L97.512 - Non-pressure chronic ulcer of other part of right foot with fat layer exposed (3) Chronic ulcer of left foot with fat layer exposed Status: Resolved Current Visit: Yes Code(s): L97.522 - Non-pressure chronic ulcer of other part of left foot with fat layer exposed (4) Ulcer of left lower extremity with fat layer exposed Status: Chronic Current Visit: Yes Code(s): L97.922 - Non-pressure chronic ulcer of unspecified part of left lower leg with fat layer exposed (5) Ulcer of right lower extremity with fat layer exposed Status: Chronic Current Visit: Yes Code(s): L97.912 - Non-pressure chronic ulcer of unspecified part of right lower leg with fat layer exposed (6) Other specified peripheral vascular diseases Status: Chronic Current Visit: Yes Code(s): I73.89 - Other specified peripheral vascular diseases (7) Malnutrition Status: Chronic Current Visit: Yes Code(s): E46 - Unspecified protein-calorie malnutrition (8) Delayed wound healing Status: Chronic Current Visit: Yes Code(s): T14.8XXD - Other injury of unspecified body region, subsequent encounter (9) Edema leg Status: Chronic Current Visit: Yes Code(s): R60.0 - Localized edema (10) Paralysis Status: Acute Current Visit: Yes Code(s): G83.9 - Paralytic syndrome, unspecified (11) Paralysis Status: Chronic Current Visit: Yes Code(s): G83.9 - Paralytic syndrome, unspecified (12) Paraplegia Status: Chronic Current Visit: Yes Code(s): G82.20 - Paraplegia, unspecified Comment: due to transverse myelitis History of Present Illness Date of Service: 10/23/18 Presenting Chief Complaint: 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 MRI Left Ankle on 08/12/18 Mild marrow edema of the calcaneus and lateral malleolus with osteomyelitis versus stress injury. Completed a 6 week course of IV antibiotics for Osteomyelitis 09/22/18. Was being followed by infectious disease. Past Medical History Chronic Problems (Last Reviewed 08/13/18 @ 10:19 by Fernando Patterson MD) Ulcer of right foot with fat layer exposed (Chronic) Other specified peripheral vascular diseases (Chronic) Unstageable pressure ulcer of left foot (Chronic) Unstageable pressure ulcer of right foot (Chronic) Ulcer of left lower extremity with fat layer exposed (Chronic) Malnutrition (Chronic) Delayed wound healing (Chronic) Edema leg (Chronic) Paralysis (Chronic) Ulcer of right lower extremity with fat layer exposed (Chronic) Osteomyelitis (Chronic) Chronic pain (Chronic) Nocardia infection (Chronic) 2004, right arm and left leg, 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 Allergies/Adverse Reactions: Allergies Cephalosporins Allergy (Intermediate, Verified 08/10/18 20:29) Laryngospasms Penicillins Allergy (Intermediate, Verified 08/10/18 20:29) Rash IVP DYE Allergy (Uncoded 07/05/18 10:04) Rash Home Medications: Ambulatory Orders Medication Instructions Recorded Multivitamins,Ther W-Minerals 1 tab PO DAILY@1700 #30 tab 09/18/14 [Multivitamin With Minerals] Pyridoxine HCl [Vitamin B-6] 100 mg PO DAILY@1700 #30 tab 09/18/14 Losartan Potassium [Cozaar] 12.5 mg PO DAILY@2200 01/12/16 Riboflavin [Vitamin B2] 300 mg PO DAILY@1700 11/10/16 Ascorbic Acid [Vitamin C] 500 mg PO TID 07/05/18 Escitalopram Oxalate [Lexapro] 10 mg PO DAILY 07/05/18 Gabapentin [Neurontin] 600 mg PO 4X/DAY 07/05/18 [place] Carbonate 150 mg PO TID 07/05/18 Atorvastatin Calcium [Lipitor] 40 mg PO QHS #90 tab 07/09/18 Carvedilol [Coreg (Beta Krissy)] 6.25 mg PO BID #90 tab 07/09/18 Clopidogrel Bisulfate [Plavix] 75 mg PO DAILY #90 tab 07/09/18 Isosorbide Mononitrate 10 mg PO QHS #90 tab 07/09/18 Morphine Sulfate [Morphine Sulfate 30 mg PO BID 2 Days #4 tablet.er 07/09/18 ER] Hydrocodone/Acetaminophen 10 - 325 mg PO DAILY 08/10/18 [Hydrocodone-Acetamin 10-325 mg] Furosemide [Lasix] 40 mg PO DAILY 08/11/18 Magnesium 400 mg PO BID 08/11/18 Potassium Chloride 20 meq DAILY 08/11/18 Sennosides/Docusate Sodium 2 each PO DAILY 08/11/18 [Senna-S Laxative Tablet] traZODone [Desyrel] 25 mg PO QHS 08/11/18 Collagenase [Santyl] 1 applic TOPICAL DAILY tube 08/14/18 Cyclobenzaprine [Flexeril] 10 mg PO TID PRN PRN tablet 08/14/18 Meropenem [Merrem] 500 mg IV Q8H 39 Days #117 vial 08/14/18 Metformin HCl [Glucophage] 500 mg PO BIDCM tablet 08/14/18 Mineral Oil/Petrolatum,White 1 applic TOPICAL BID jar 08/14/18 [Eucerin] Smz/Tmp Ds [Bactrim Ds] 1 tablet PO DAILY tablet 08/14/18 Baclofen 5 mg PO BID 08/22/18 Sulfamethoxazole/Trimethoprim 1 each PO DAILY 08/22/18 [Sulfamethoxazole-Tmp Ds Tablet] Maternal Family History: - - , depression Paternal Family History: - - Offspring Family History: - - 2 children, 4 grand children, 1 great grandchild, all in good health Smoking Status: Never smoker Review of Systems Constitutional: Denies: Anorexia, Chills, Fever Eyes: Denies: Pain, Vision Change HEENT: Denies: Difficulty Hearing, Difficulty Swallowing, Sinus Congestion Cardiovascular: Reports: Edema. Denies: Chest Pain Respiratory: Denies: Cough, Shortness of Breath Gastrointestinal: Denies: Abdominal Pain Skin: Reports: Wounds - 7 different opened wounds Neurological: Reports: Headaches, - - paralyzed, in a wheel chair, - - Shunt is in place - Physical Exam Vital Signs Temp Pulse Resp BP 97.1 F L 71 16 131/70 H 10/17/18 11:17 10/17/18 11:17 10/17/18 11:17 10/17/18 11:17 General: Alert, Oriented x3, Cooperative HEENT: PERRLA, TM's Clear Oral: Moist Mucosa Lungs: Clear to auscultation, Normal air movement, No rhonchi, No wheeze Cardiovascular: Regular rate, Regular Rhythm Abdomen: Bowel Sounds Present, Soft Extremities: Diminished Peripheral Pulses, Edema Skin: Ulcer/ Wound - Ulcers bilateral heel, right lateral ankle ulcer, left posterior LE, Left anterior foot, right lateral LE Wound Measurements and Assessment WC - Nurse 2 - General Ulcer CM Notes Start: 10/03/18 14:00 Freq: Status: Active Protocol: Activity Type Activity Date Activity User E-Sign Co-Sign Detail Recorded Client Recorded Date Recorded By Document 10/23/18 14:57 [id number] 10/23/18 14:59 10/23/18 14:57 W[facility] Center Nurse 2 [Procedure/Treatment] #7 RLat LE -Correct Patient No -Correct Side, Site, Position No -Correct Procedure No -Procedure Performed No #6 Left Anterior Foot -Correct Patient No -Correct Side, Site, Position No -Correct Procedure No -Procedure Performed No #5 Posterior LLE -Correct Patient No -Correct Side, Site, Position No -Correct Procedure No -Procedure Performed No #4 Left Heel -Correct Patient No -Correct Side, Site, Position No -Correct Procedure No -Procedure Performed No #3 Right Heel -Correct Patient No -Correct Side, Site, Position No -Correct Procedure No -Procedure Performed No #2 Right Lateral Ankle -Correct Patient No -Correct Side, Site, Position No -Correct Procedure No -Procedure Performed No [See Physician Procedure note for Specifics] Pain Scale: 0-10 Numeric [Pain] -Is Patient Pain Free? Yes Musculoskeletal: No Tenderness to Palpation of Joints or Extremities, Muscle Wasting Neurological: Cranial nerves II-XII grossly intact Psych/Mental Status: Normal Affect, Appropriate Assessment/Plan Active Problems (Last Reviewed 08/13/18 @ 10:19 by Fernando Patterson MD) Ulcer of right foot with fat layer exposed (Chronic) Paralysis (Acute) Non-pressure chronic ulcer of other part of left foot with fat layer exposed (Acute) Non-pressure chronic ulcer of other part of right foot with fat layer exposed (Acute) Other specified peripheral vascular diseases (Chronic) Ulcer of left lower extremity with fat layer exposed (Chronic) Malnutrition (Chronic) Delayed wound healing (Chronic) Edema leg (Chronic) Paralysis (Chronic) Ulcer of right lower extremity with fat layer exposed (Chronic) Osteomyelitis (Chronic) 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 Hyperbaric Oxygen Therapy would be an essential adjunct in the resolution and treatment of this patient's presenting problem. This patient has sufficient physiologic and psychological stamina to undergo the rigors of hyperbaric oxygen therapy. As such, I recommend the following: Hyperbaric Oxygen Treatments at 2.0 RAGHAV in 100% Oxygen for 90 minutes per treatment, for [] treatments. I have discussed the possible benefits of hyperbaric oxygen therapy with this patient. I have also presented and described the risks, including: air gas embolism, pneumothorax, central nervous system and pulmonary oxygen toxicity, flash pulmonary edema, hypoglycemia, reversible visual refractive changes, ear and sinus ericka-trauma, and confinement anxiety. The patient has verbalized understanding of these risks, and is still wanting to undergo hyperbaric oxygen therapy. The patient understands the significant time and transportation commitment involved in daily treatments of up to two hours duration and has stated that they are willing to commit to this therapy. - HBOT Diagnosis Chronic Refractory Osteomyelitis (730.1) Acute Osteomyelitis (730.05) Code Visit Office Visits / Consults: [id number] OV L4 New
--- NOTE | 2018-10-24 08:49 | HBO.CON.PC_ITS ---
(1) Osteomyelitis Status: Chronic Current Visit: Yes Code(s): M86.9 - Osteomyelitis, unspecified (2) Ulcer of right foot with fat layer exposed Status: Chronic Current Visit: Yes Code(s): L97.512 - Non-pressure chronic ulcer of other part of right foot with fat layer exposed (3) Chronic ulcer of left foot with fat layer exposed Status: Resolved Current Visit: Yes Code(s): L97.522 - Non-pressure chronic ulcer of other part of left foot with fat layer exposed (4) Ulcer of left lower extremity with fat layer exposed Status: Chronic Current Visit: Yes Code(s): L97.922 - Non-pressure chronic ulcer of unspecified part of left lower leg with fat layer exposed (5) Ulcer of right lower extremity with fat layer exposed Status: Chronic Current Visit: Yes Code(s): L97.912 - Non-pressure chronic ulcer of unspecified part of right lower leg with fat layer exposed (6) Other specified peripheral vascular diseases Status: Chronic Current Visit: Yes Code(s): I73.89 - Other specified peripheral vascular diseases (7) Malnutrition Status: Chronic Current Visit: Yes Code(s): E46 - Unspecified protein- calorie malnutrition (8) Delayed wound healing Status: Chronic Current Visit: Yes Code(s): T14.8XXD - Other injury of unspecified body region, subsequent encounter (9) Edema leg Status: Chronic Current Visit: Yes Code(s): R60.0 - Localized edema (10) Paralysis Status: Acute Current Visit: Yes Code(s): G83.9 - Paralytic syndrome, unsp ecified (11) Paralysis Status: Chronic Current Visit: Yes Code(s): G83.9 - Paralytic syndrome, unspecified (12) Paraplegia Status: Chronic Current Visit: Yes Code(s): G82.20 - Paraplegia, unspecified Comment: due to transverse myelitis History of Present Illness Date of Service: 10/23/18 Presenting Chief Complaint: 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 MRI Left Ankle on 08/12/18 Mild marrow edema of the calcaneus and lateral malleolus with osteomyelitis versus stress injury. Completed a 6 week course of IV antibiotics for Osteomyelitis 09/22/18. Was being followed by infectious disease. Past Medical History Chronic Problems (Last Reviewed 08/13/18 @ 10:19 by Fernando Patterson MD) Ulcer of right foot with fat layer exposed (Chronic) Other specified peripheral vascular diseases (Chronic) Unstageable pressure ulcer of left foot (Chronic) Unstageable pressure ulcer of right foot (Chronic) Ulcer of left lower extremity with fat layer exposed (Chronic) Malnutrition (Chronic) Delayed wound healing (Chronic) Edema leg (Chronic) Paralysis (Chronic) Ulcer of right lower extremity with fat layer exposed (Chronic) Osteomyelitis (Chronic) Chronic pain (Chronic) Nocardia infection (Chronic) 2004, right arm and left leg, 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 Allergies/Adverse Reactions: Allergies Cephalosporins Allergy (Intermediate, Verified 08/10/18 20:29) Laryngospasms Penicillins Allergy (Intermediate, Verified 08/10/18 20:29) Rash IVP DYE Allergy (Uncoded 07/05/18 10:04) Rash Home Medications: Ambulatory Orders Medication Instructions Recorded Multivitamins,Ther W-Minerals 1 tab PO DAILY@1700 #30 tab 09/18/14 [Multivitamin With Minerals] Pyridoxine HCl [Vitamin B-6] 100 mg PO DAILY@1700 #30 tab 09/18/14 Losartan Potassium [Cozaar] 12.5 mg PO DAILY@2200 01/12/16 Riboflavin [Vitamin B2] 300 mg PO DAILY@1700 11/10/16 Ascorbic Acid [Vitamin C] 500 mg PO TID 07/05/18 Escitalopram Oxalate [Lexapro] 10 mg PO DAILY 07/05/18 Gabapentin [Neurontin] 600 mg PO 4X/DAY 07/05/18 [place] Carbonate 150 mg PO TID 07/05/18 Atorvastatin Calcium [Lipitor] 40 mg PO QHS #90 tab 07/09/18 Carvedilol [Coreg (Beta Krissy)] 6.25 mg PO BID #90 tab 07/09/18 Clopidogrel Bisulfate [Plavix] 75 mg PO DAILY #90 tab 07/09/18 Isosorbide Mononitrate 10 mg PO QHS #90 tab 07/09/18 Morphine Sulfate [Morphine Sulfate 30 mg PO BID 2 Days #4 tablet.er 07/09/18 ER] Hydrocodone/Acetaminophen 10 - 325 mg PO DAILY 08/10/18 [Hydrocodone-Acetamin 10-325 mg] Furosemide [Lasix] 40 mg PO DAILY 08/11/18 Magnesium 400 mg PO BID 08/11/18 Potassium Chloride 20 meq DAILY 08/11/18 Sennosides/Docusate Sodium 2 each PO DAILY 08/11/18 [Senna-S Laxative Tablet] traZODone [Desyrel] 25 mg PO QHS 08/11/18 Collagenase [Santyl] 1 applic TOPICAL DAILY tube 08/14/18 Cyclobenzaprine [Flexeril] 10 mg PO TID PRN PRN tablet 08/14/18 Meropenem [Merrem] 500 mg IV Q8H 39 Days #117 vial 08/14/18 Metformin HCl [Glucophage] 500 mg PO BIDCM tablet 08/14/18 Mineral Oil/Petrolatum,White 1 applic TOPICAL BID jar 08/14/18 [Eucerin] Smz/Tmp Ds [Bactrim Ds] 1 tablet PO DAILY tablet 08/14/18 Baclofen 5 mg PO BID 08/22/18 Sulfamethoxazole/Trimethoprim 1 each PO DAILY 08/22/18 [Sulfamethoxazole-Tmp Ds Tablet] Maternal Family History: - - , depression Paternal Family History: - - Offspring Family History: - - 2 children, 4 grand children, 1 great grandchild, all in good health Smoking Status: Never smoker Review of Systems Constitutional: Denies: Anorexia, Chills, Fever Eyes: Denies: Pain, Vision Change HEENT: Denies: Difficulty Hearing, Difficulty Swallowing, Sinus Congestion Cardiovascular: Reports: Edema. Denies: Chest Pain Respiratory: Denies: Cough, Shortness of Breath Gastrointestinal: Denies: Abdominal Pain Skin: Reports: Wounds - 7 different opened wounds Neurological: Reports: Headaches, - - paralyzed, in a wheel chair, - - Shunt is in place - Physical Exam Vital Signs Temp Pulse Resp BP 97.1 F L 71 16 131/70 H 11/21/18 11:17 10/17/18 11:17 10/17/18 11:17 10/17/18 11:17 General: Alert, Oriented x3, Cooperative HEENT: PERRLA, TM's Clear Oral: Moist Mucosa Lungs: Clear to auscultation, Normal air movement, No rhonchi, No wheeze Cardiovascular: Regular rate, Regular Rhythm Abdomen: Bowel Sounds Present, Soft Extremities: Diminished Peripheral Pulses, Edema Skin: Ulcer/ Wound - Ulcers bilateral heel, right lateral ankle ulcer, left posterior LE, Left anterior foot, right lateral LE Wound Measurements and Assessment WC - Nurse 2 - General Ulcer CM Notes Start: 10/03/18 14:00 Freq: Status: Active Protocol: Activity Type Activity Date Activity User E-Sign Co-Sign Detail Recorded Client Recorded Date Recorded By Document 10/23/18 14:57 [id number] 10/23/18 14:59 10/23/18 14:57 Wound Center Nurse 2 [Procedure/Treatment] #7 RLat LE -Correct Patient No -Correct Side, Site, Position No -Correct Procedure No -Procedure Performed No #6 Left Anterior Foot -Correct Patient No -Correct Side, Site, Position No -Correct Procedure No -Procedure Performed No #5 Posterior LLE -Correct Patient No -Correct Side, Site, Position No -Correct Procedure No -Procedure Performed No #4 Left Heel -Correct Patient No -Correct Side, Site, Position No -Correct Procedure No -Procedure Performed No #3 Right Heel -Correct Patient No -Correct Side, Site, Position No -Correct Procedure No -Procedure Performed No #2 Right Lateral Ankle -Correct Patient No -Correct Side, Site, Position No -Correct Procedure No -Procedure Performed No [See Physician Procedure note for Specifics] Pain Scale: 0-10 Numeric [Pain] -Is Patient Pain Free? Yes Musculoskeletal: No Tenderness to Palpation of Joints or Extremities, Muscle Wasting Neurological: Cranial nerves II-XII grossly intact Psych/Mental Status: Normal Affect, Appropriate Assessment/Plan Active Problems (Last Reviewed 08/13/18 @ 10:19 by Fernando Patterson MD) Ulcer of right foot with fat layer exposed (Chronic) Paralysis (Acute) Non-pressure chronic ulcer of other part of left foot with fat layer exposed (Acute) Non-pressure chronic ulcer of other part of right foot with fat layer exposed (Acute) Other specified peripheral vascular diseases (Chronic) Ulcer of left lower extremity with fat layer exposed (Chronic) Malnutrition (Chronic) Delayed wound healing (Chronic) Edema leg (Chronic) Paralysis (Chronic) Ulcer of right lower extremity with fat layer exposed (Chronic) Osteomyelitis (Chronic) 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 Hyperbaric Oxygen Therapy would be an essential adjunct in the resolution and treatment of this patient's presenting problem. This patient has sufficient physiologic and psychological stamina to undergo the rigors of hyperbaric oxygen therapy. As such, I recommend the following: Hyperbaric Oxygen Treatments at 2.0 RAGHAV in 100% Oxygen for 90 minutes per treatment, for [] treatments. I have discussed the possible benefits of hyperbaric oxygen therapy with this patient. I have also presented and described the risks, including: air gas emb olism, pneumothorax, central nervous system and pulmonary oxygen toxicity, flash pulmonary edema, hypoglycemia, reversible visual refractive changes, ear and sinus ericka-trauma, and confinement anxiety. The patient has verbalized understanding of these risks, and is still wanting to undergo hyperbaric oxygen therapy. The patient understands the significant time and transportation commitment involved in daily treatments of up to two hours duration and has stated that they are willing to commit to this therapy. - HBOT Diagnosis Chronic Refractory Osteomyelitis (730.1) Acute Osteomyelitis (730.05) Code Visit Office Visits / Consults: [id number] OV L4 New
[2018-10-24 13:16] VITALS: BP 139/71; PULSE 63; RESP 18; TEMP 36.4
--- NOTE | 2018-10-24 14:38 | PN.PCM_ITS ---
(1) Ulcer of right foot with fat layer exposed Status: Chronic Current Visit: Yes Code(s): L97.512 - Non-pressure chronic ulcer of other part of right foot with fat layer exposed (2) Ulcer of left lower extremity with fat layer exposed Status: Chronic Current Visit: Yes Code(s): L97.922 - Non-pressure chronic ulcer of unspecified part of left lower leg with fat layer exposed (3) Ulcer of right lower extremity with fat layer exposed Status: Chronic Current Visit: Yes Code(s): L97.912 - Non-pressure chronic ulcer of unspecified part of right lower leg with fat layer exposed (4) Osteomyelitis Status: Chronic Current Visit: Yes Code(s): M86.9 - Osteomyelitis, unspecified (5) Other specified peripheral vascular diseases Status: Chronic Current Visit: Yes Code(s): I73.89 - Other specified peripheral vascular diseases (6) Malnutrition Status: Chronic Current Visit: Yes Code(s): E46 - Unspecified protein- calorie malnutrition (7) Delayed wound healing Status: Chronic Current Visit: Yes Code(s): T14.8XXD - Other injury of unspecified body region, subsequent encounter (8) Edema leg Status: Chronic Current Visit: Yes Code(s): R60.0 - Localized edema (9) Paralysis Status: Chronic Current Visit: Yes Code(s): G83.9 - Paralytic syndrome, unspecified (10) Paraplegia Status: Chronic Current Visit: Yes Code(s): G82.20 - Paraplegia, unspecified 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 Ulcer with fat tissue exposed left leg, right leg, right ankle. Ulcer right heel with fat and fascial layer exposed. Previously medically treated osteomyelitis. Paraplegia History of Wound: This 83-year-old male with multiple comorbidities was seen at the wound healing center for pressure ulcers to both heels and legs. His large black scabs are reducing after serial Santyl applications. He recently completed a vascular surgery evaluation with Dr. De Anda and an Angio without any identifiable intervention noted. He denies fever, chill, nausea, vomiting. He is a paraplegic and presents in a wheelchair. He continues to take Fred supplementation. He did obtain bilateral donut offloading pillows and this helps keep pressure off the sites. He was also provided with an order for new mattress and this is pending insurance coverage. He is with his today. He denies pain. He has been performing dressing changes with Santyl. He denies pain or further inflammation. He denies redness or odor, fever, chills, nausea, or vomiting. He does complain of right heel and leg ulcer pain which was not initially there. He has been cleared for hyperbaric oxygen therapy and will start this process next Monday. He has his preoperative history and physical clearance exam scheduled for this Monday and is hopeful to have his operating room debridement and application of advanced wound care product within the next week or so. He is with his today. Progress of Wound: Improving quality to all sites. Healed ulcers to left foot and heel - Physical Exam Vital Signs Temp Pulse Resp BP 97.5 F L 63 18 139/71 H 10/24/18 13:16 10/24/18 13:16 10/24/18 13:16 10/24/18 13:16 General: Alert, Oriented x3, Cooperative Extremities: No cyanosis, Capillary Refill Less than 3 Seconds, No Calf Tenderness, Diminished Peripheral Pulses, Edema - Mild bilateral lower extremities, - - Weakness and paralysis bilateral lower extremities Skin: Ulcer/ Wound - No purulence, erythema, streaking, odor, or acute signs of infection bilateral lower extremities. The peripheral skin is hairless and atrophic. There is scant eschar noted to the right lateral leg. There is no other shara necrosis or probe to direct visualization of the bone. There is deep fascial type tissue exposed in the right heel upon removal of fibronecrotic plug. Wound Measurements and Assessment WC - Nurse 1 - General Ulcer Measurement Start: 10/03/18 14:00 Freq: Status: Active Protocol: Activity Type Activity Date Activity User E-Sign Co-Sign Detail Recorded Client Recorded Date Recorded By Document 10/24/18 13:16 DL [id number] 10/24/18 13:30 DL 10/24/18 13:16 Wound Center Nurse 1 [Ulcer Assessment] #7 RLat LE -Combined with other wound No -Current Size (cm) - Length 8 -Current Size (cm) - Width 2.6 -Current Size (cm) - Depth 0.2 -Total Square Cm 20.8 -Photo Taken No -Epithelialization Small 1-33% -Tunneling No -Undermining/Tunneling No -Circular Undermining No -Exudate Amt Medium (34-66%) -Exudate Type Serosanguineous -Wound Margin Thickened -Granulation Amt Small (1-33%) -Granulation Quality Red -Slough/Fibrin Yes -Necrosis Amt Large (67-100%) -Structure Exposed N/A -Texture (Denisse-wound Skin Appearance) Assessed -Moisture (Denisse-wound Skin Appearance Dry/Scaly ) -Color (Denisse-wound Skin Appearance) Assessed Hemosiderin Staining -Temperature (Denisse-wound Skin No Abnormality Appearance) (Pt Warm) -Tenderness on Palpation (Denisse-wound No Skin Appearance) -Ulcer Cleansing Rinsed/ Irrigated with Saline -Foul Odor after Cleansing No -Anesthetic Used 4% Lidocaine Solution #6 Left Anterior Foot -Combined with other wound No -Current Size (cm) - Length 0 -Current Size (cm) - Width 0 -Current Size (cm) - Depth 0 -Total Square Cm 0 -Photo Taken Yes #5 Posterior LLE -Combined with other wound No -Current Size (cm) - Length 2.4 -Current Size (cm) - Width 2.2 -Current Size (cm) - Depth 1.0 -Total Square Cm 5.28 -Photo Taken No -Epithelialization Medium 34-66% -Tunneling No -Undermining/Tunneling No -Circular Undermining No -Exudate Amt Medium (34-66%) -Exudate Type Serosanguineous -Wound Margin Thickened -Granulation Amt Medium (34-66%) -Granulation Quality Red -Slough/Fibrin Yes -Necrosis Amt Medium (34-66%) -Necrotic Tissue Type Adherent Slough -Structure Exposed N/A -Texture (Denisse-wound Skin Appearance) Assessed Localized Edema -Moisture (Denisse-wound Skin Appearance Assessed ) Dry/Scaly -Color (Denisse-wound Skin Appearance) Assessed Hemosiderin Staining -Temperature (Denisse-wound Skin No Abnormality Appearance) (Pt Warm) -Tenderness on Palpation (Denisse-wound No Skin Appearance) -Ulcer Cleansing Rinsed/ Irrigated with Saline -Foul Odor after Cleansing No -Anesthetic Used 4% Lidocaine Solution #4 Left Heel -Combined with other wound No -Current Size (cm) - Length 0.1 -Current Size (cm) - Width 0.1 -Current Size (cm) - Depth 0.1 -Total Square Cm 0.01 -Photo Taken No -Epithelialization Large 67-100% -Tunneling No -Undermining/Tunneling No -Circular Undermining No -Exudate Amt None Present (0 %) -Wound Margin Flat & Intact -Granulation Amt Large (67-100%) -Granulation Quality Grand Detour -Slough/Fibrin Yes -Necrosis Amt Small (1-33%) -Necrotic Tissue Type Adherent Slough -Structure Exposed N/A -Texture (Denisse-wound Skin Appearance) Assessed Localized Edema -Moisture (Denisse-wound Skin Appearance Assessed ) Dry/Scaly -Color (Denisse-wound Skin Appearance) No Abnormality Assessed -Temperature (Denisse-wound Skin No Abnormality Appearance) (Pt Warm) -Tenderness on Palpation (Denisse-wound No Skin Appearance) -Ulcer Cleansing Rinsed/ Irrigated with Saline -Foul Odor after Cleansing No -Anesthetic Used 4% Lidocaine Solution #3 Right Heel -Combined with other wound No -Current Size (cm) - Length 2.3 -Current Size (cm) - Width 6.0 -Current Size (cm) - Depth 0.6 -Total Square Cm 13.80 -Photo Taken No -Epithelialization Small 1-33% -Tunneling No -Undermining/Tunneling No -Circular Undermining No -Exudate Amt Small (1-33%) -Exudate Type Serosanguineous -Wound Margin Thickened -Granulation Amt Small (1-33%) -Granulation Quality Grand Detour -Slough/Fibrin Yes -Necrosis Amt Large (67-100%) -Necrotic Tissue Type Adherent Slough -Structure Exposed N/A -Texture (Denisse-wound Skin Appearance) Assessed Localized Edema -Moisture (Denisse-wound Skin Appearance Assessed ) Dry/Scaly -Color (Denisse-wound Skin Appearance) Assessed Hemosiderin Staining -Temperature (Denisse-wound Skin No Abnormality Appearance) (Pt Warm) -Tenderness on Palpation (Denisse-wound No Skin Appearance) -Ulcer Cleansing Rinsed/ Irrigated with Saline -Foul Odor after Cleansing No -Anesthetic Used 4% Lidocaine Solution #2 Right Lateral Ankle -Combined with other wound No -Current Size (cm) - Length 1.8 -Current Size (cm) - Width 1.5 -Current Size (cm) - Depth 0.4 -Total Square Cm 2.70 -Photo Taken No -Epithelialization None Present -Tunneling No -Undermining/Tunneling No -Circular Undermining No -Exudate Amt Medium (34-66%) -Exudate Type Serosanguineous -Wound Margin Flat & Intact -Granulation Amt None Present (0 %) -Slough/Fibrin Yes -Necrosis Amt Large (67-100%) -Necrotic Tissue Type Adherent Slough -Structure Exposed N/A -Texture (Denisse-wound Skin Appearance) Assessed Localized Edema -Moisture (Denisse-wound Skin Appearance Assessed ) Dry/Scaly -Color (Denisse-wound Skin Appearance) Assessed Hemosiderin Staining -Temperature (Denisse-wound Skin No Abnormality Appearance) (Pt Warm) -Tenderness on Palpation (Denisse-wound No Skin Appearance) -Ulcer Cleansing Rinsed/ Irrigated with Saline -Foul Odor after Cleansing No -Anesthetic Used 4% Lidocaine Solution [Edema Assessment] -Lower Limb Edema Present No -Right Calf (cm) 28 -Right Ankle (cm) 21 -Left Calf (cm) 30.5 -Left Ankle (cm) 23 WC - Nurse 2 - General Ulcer CM Notes Start: 10/03/18 14:00 Freq: Status: Active Protocol: Activity Type Activity Date Activity User E-Sign Co-Sign Detail Recorded Client Recorded Date Recorded By Document 10/23/18 14:57 [id number] 10/23/18 14:59 Document 10/24/18 13:53 [id number] 10/24/18 14:03 10/23/18 10/24/18 14:57 13:53 Wound Center Nurse 2 [Procedure/Treatment] #7 RLat LE -Time 13:53 -Correct Patient No Yes -Correct Side, Site, Position No Yes -Correct Procedure No Yes -Procedure Performed No Yes -Type of Procedure Debridement -Clinical Debridement Subcutaneous -Post Debridement Size (cm) - Length 8.0 -Post Debridement Size (cm) - Width 2.7 -Post Debridement Size (cm) - Depth 0.2 -Total Square Cm 21.60 -Wound/Ulcer Outcome Not Healed -Ulcer Cleansing Rinsed/ Irrigated with Saline -Foul Odor after Cleansing No -Bioengineered Tissue No -Bleeding Controlled with Pressure -Treatment Response Procedure Tolerated Well #6 Left Anterior Foot -Correct Patient No -Correct Side, Site, Position No -Correct Procedure No -Procedure Performed No #5 Posterior LLE -Time 13:54 -Correct Patient No Yes -Correct Side, Site, Position No Yes -Correct Procedure No Yes -Procedure Performed No Yes -Type of Procedure Debridement -Clinical Debridement Subcutaneous -Post Debridement Size (cm) - Length 2.5 -Post Debridement Size (cm) - Width 2.2 -Post Debridement Size (cm) - Depth 1.0 -Total Square Cm 5.50 -Wound/Ulcer Outcome Not Healed -Ulcer Cleansing Rinsed/ Irrigated with Saline -Foul Odor after Cleansing No -Bioengineered Tissue No -Bleeding Controlled with Pressure -Treatment Response Procedure Tolerated Well #4 Left Heel -Time 13:54 -Correct Patient No No -Correct Side, Site, Position No No -Correct Procedure No No -Procedure Performed No No -Post Debridement Size (cm) - Length 0 -Post Debridement Size (cm) - Width 0 -Post Debridement Size (cm) - Depth 0 -Total Square Cm 0 -Wound/Ulcer Outcome Healed- Epithelialized #3 Right Heel -Time 13:54 -Correct Patient No Yes -Correct Side, Site, Position No Yes -Correct Procedure No Yes -Procedure Performed No Yes -Type of Procedure Debridement -Clinical Debridement Subcutaneous -Post Debridement Size (cm) - Length 2.4 -Post Debridement Size (cm) - Width 6 -Post Debridement Size (cm) - Depth 0.6 -Total Square Cm 14.4 -Wound/Ulcer Outcome Not Healed -Ulcer Cleansing Rinsed/ Irrigated with Saline -Foul Odor after Cleansing No -Bioengineered Tissue No -Bleeding Controlled with Pressure -Treatment Response Procedure Tolerated Well #2 Right Lateral Ankle -Time 13:54 -Correct Patient No Yes -Correct Side, Site, Position No Yes -Correct Procedure No Yes -Procedure Performed No Yes -Type of Procedure Debridement -Clinical Debridement Subcutaneous -Post Debridement Size (cm) - Length 1.8 -Post Debridement Size (cm) - Width 1.6 -Post Debridement Size (cm) - Depth 0.4 -Total Square Cm 2.88 -Wound/Ulcer Outcome Not Healed -Ulcer Cleansing Rinsed/ Irrigated with Saline -Foul Odor after Cleansing No -Bioengineered Tissue No -Bleeding Controlled with Pressure -Treatment Response Procedure Tolerated Well [See Physician Procedure note for Specifics] Pain Scale: 0-10 Numeric [Pain] -Is Patient Pain Free? Yes Yes Musculoskeletal: No Tenderness to Palpation of Joints or Extremities, Muscle Wasting, - - Wheelchair use and nonambulatory noted Neurological: - - lack of epicritic sensation via light touch bilateral lower extremities Psych/Mental Status: Normal Affect, Appropriate Debridement Note Post-Debridement Measurements/Treatment WC - Nurse 2 - General Ulcer CM Notes Start: 10/03/18 14:00 Freq: Status: Active Protocol: Activity Type Activity Date Activity User E-Sign Co-Sign Detail Recorded Client Recorded Date Recorded By Document 10/03/18 15:30 TM [id number] 10/03/18 15:34 TM Document 10/10/18 16:03 [id number] 10/10/18 16:19 TM Document 10/17/18 12:20 TM [id number] 10/17/18 12:24 TM Document 10/23/18 14:57 [id number] 10/23/18 14:59 Document 10/24/18 13:53 [id number] 10/24/18 14:03 10/03/18 10/10/18 10/17/18 15:30 16:03 12:20 Wound Center Nurse 2 #7 RLat LE -Time 15:31 16:14 12:22 -Correct Patient Yes Yes Yes -Correct Side, Site, Position Yes Yes Yes -Correct Procedure Yes Yes Yes -Procedure Performed Yes Yes Yes -Type of Procedure Debridement Debridement Debridement -Clinical Debridement Subcutaneous Subcutaneous Subcutaneous -Post Debridement Size (cm) - Length 10.1 10.3 9.6 -Post Debridement Size (cm) - Width 3.1 3.1 3.1 -Post Debridement Size (cm) - Depth 0.1 0.2 0.2 -Total Square Cm 31.31 31.93 29.76 -Wound/Ulcer Outcome Not Healed Not Healed Not Healed -Ulcer Cleansing Rinsed/ Rinsed/ Rinsed/ Irrigated with Irrigated with Irrigated with Saline Saline Saline -Foul Odor after Cleansing No No No -Bioengineered Tissue No No No -Topical Lidocaine (%) 4 4 5 -Bleeding Controlled with Pressure Pressure Pressure -Treatment Response Procedure Procedure Procedure Tolerated Well Tolerated Well Tolerated Well #6 Left Anterior Foot -Time 15:31 16:14 12:22 -Correct Patient Yes Yes Yes -Correct Side, Site, Position Yes Yes Yes -Correct Procedure Yes Yes Yes -Procedure Performed Yes Yes Yes -Type of Procedure Debridement Debridement Debridement -Clinical Debridement Subcutaneous Subcutaneous Subcutaneous -Post Debridement Size (cm) - Length 0.9 0.6 0.2 -Post Debridement Size (cm) - Width 0.6 0.5 0.2 -Post Debridement Size (cm) - Depth 0.1 0.1 0.2 -Total Square Cm 0.54 0.30 0.04 -Wound/Ulcer Outcome Not Healed Not Healed Not Healed -Ulcer Cleansing Rinsed/ Rinsed/ Rinsed/ Irrigated with Irrigated with Irrigated with Saline Saline Saline -Foul Odor after Cleansing No No No -Bioengineered Tissue No No No -Topical Lidocaine (%) 4 4 5 -Bleeding Controlled with Pressure Pressure Pressure -Treatment Response Procedure Procedure Procedure Tolerated Well Tolerated Well Tolerated Well #5 Posterior LLE -Time 15:31 16:14 12:23 -Correct Patient Yes Yes Yes -Correct Side, Site, Position Yes Yes Yes -Correct Procedure Yes Yes Yes -Procedure Performed Yes Yes Yes -Type of Procedure Debridement Debridement Debridement -Clinical Debridement Subcutaneous Subcutaneous Subcutaneous -Post Debridement Size (cm) - Length 2.2 2.2 2.4 -Post Debridement Size (cm) - Width 2.2 2.5 2.6 -Post Debridement Size (cm) - Depth 0.1 0.1 1.0 -Total Square Cm 4.84 5.50 6.24 -Wound/Ulcer Outcome Not Healed Not Healed Not Healed -Ulcer Cleansing Rinsed/ Rinsed/ Rinsed/ Irrigated with Irrigated with Irrigated with Saline Saline Saline -Foul Odor after Cleansing No No No -Bioengineered Tissue No No No -Topical Lidocaine (%) 4 4 5 -Bleeding Controlled with Pressure Pressure Pressure -Treatment Response Procedure Procedure Procedure Tolerated Well Tolerated Well Tolerated Well #4 Left Heel -Time 15:32 16:15 12:23 -Correct Patient Yes Yes Yes -Correct Side, Site, Position Yes Yes Yes -Correct Procedure Yes Yes Yes -Procedure Performed Yes Yes Yes -Type of Procedure Debridement Debridement Debridement -Clinical Debridement Subcutaneous Subcutaneous Subcutaneous -Post Debridement Size (cm) - Length 0.6 2.2 0.3 -Post Debridement Size (cm) - Width 0.6 2.5 0.4 -Post Debridement Size (cm) - Depth 0.1 0.5 0.1 -Total Square Cm 0.36 5.50 0.12 -Wound/Ulcer Outcome Not Healed Not Healed Not Healed -Ulcer Cleansing Rinsed/ Rinsed/ Rinsed/ Irrigated with Irrigated with Irrigated with Saline Saline Saline -Foul Odor after Cleansing No No No -Bioengineered Tissue No No No -Topical Lidocaine (%) 4 4 5 -Bleeding Controlled with Pressure Pressure Pressure -Treatment Response Procedure Procedure Procedure Tolerated Well Tolerated Well Tolerated Well #3 Right Heel -Time 15:32 16:16 12:23 -Correct Patient Yes Yes Yes -Correct Side, Site, Position Yes Yes Yes -Correct Procedure Yes Yes Yes -Procedure Performed Yes Yes Yes -Type of Procedure Debridement Debridement Debridement -Clinical Debridement Subcutaneous Subcutaneous Subcutaneous -Post Debridement Size (cm) - Length 2.6 2.4 2.6 -Post Debridement Size (cm) - Width 4.1 5.5 6.1 -Post Debridement Size (cm) - Depth 0.7 0.5 0.5 -Total Square Cm 10.66 13.20 15.86 -Wound/Ulcer Outcome Not Healed Not Healed Not Healed -Ulcer Cleansing Rinsed/ Rinsed/ Rinsed/ Irrigated with Irrigated with Irrigated with Saline Saline Saline -Foul Odor after Cleansing No No No -Bioengineered Tissue No No No -Topical Lidocaine (%) 4 4 5 -Bleeding Controlled with Pressure Pressure Pressure -Treatment Response Procedure Procedure Procedure Tolerated Well Tolerated Well Tolerated Well #2 Right Lateral Ankle -Time 15:32 16:17 12:24 -Correct Patient Yes Yes Yes -Correct Side, Site, Position Yes Yes Yes -Correct Procedure Yes Yes Yes -Procedure Performed Yes Yes Yes -Type of Procedure Debridement Debridement Debridement -Clinical Debridement Subcutaneous Subcutaneous Subcutaneous -Post Debridement Size (cm) - Length 2.7 2.5 2.8 -Post Debridement Size (cm) - Width 2.5 2.4 2.2 -Post Debridement Size (cm) - Depth 0.7 0.5 0.4 -Total Square Cm 6.75 6.00 6.16 -Wound/Ulcer Outcome Not Healed Not Healed Not Healed -Ulcer Cleansing Rinsed/ Rinsed/ Rinsed/ Irrigated with Irrigated with Irrigated with Saline Saline Saline -Foul Odor after Cleansing No No No -Bioengineered Tissue No No No -Topical Lidocaine (%) 4 4 5 -Bleeding Controlled with Pressure Pressure Pressure -Treatment Response Procedure Procedure Procedure Tolerated Well Tolerated Well Tolerated Well Pain Scale: 0-10 Numeric Is Patient Pain Free? Yes Yes Yes 10/23/18 10/24/18 14:57 13:53 Wound Center Nurse 2 #7 RLat LE -Time 13:53 -Correct Patient No Yes -Correct Side, Site, Position No Yes -Correct Procedure No Yes -Procedure Performed No Yes -Type of Procedure Debridement -Clinical Debridement Subcutaneous -Post Debridement Size (cm) - Length 8.0 -Post Debridement Size (cm) - Width 2.7 -Post Debridement Size (cm) - Depth 0.2 -Total Square Cm 21.60 -Wound/Ulcer Outcome Not Healed -Ulcer Cleansing Rinsed/ Irrigated with Saline -Foul Odor after Cleansing No -Bioengineered Tissue No -Topical Lidocaine (%) -Bleeding Controlled with Pressure -Treatment Response Procedure Tolerated Well #6 Left Anterior Foot -Time -Correct Patient No -Correct Side, Site, Position No -Correct Procedure No -Procedure Performed No -Type of Procedure -Clinical Debridement -Post Debridement Size (cm) - Length -Post Debridement Size (cm) - Width -Post Debridement Size (cm) - Depth -Total Square Cm -Wound/Ulcer Outcome -Ulcer Cleansing -Foul Odor after Cleansing -Bioengineered Tissue -Topical Lidocaine (%) -Bleeding Controlled with -Treatment Response #5 Posterior LLE -Time 13:54 -Correct Patient No Yes -Correct Side, Site, Position No Yes -Correct Procedure No Yes -Procedure Performed No Yes -Type of Procedure Debridement -Clinical Debridement Subcutaneous -Post Debridement Size (cm) - Length 2.5 -Post Debridement Size (cm) - Width 2.2 -Post Debridement Size (cm) - Depth 1.0 -Total Square Cm 5.50 -Wound/Ulcer Outcome Not Healed -Ulcer Cleansing Rinsed/ Irrigated with Saline -Foul Odor after Cleansing No -Bioengineered Tissue No -Topical Lidocaine (%) -Bleeding Controlled with Pressure -Treatment Response Procedure Tolerated Well #4 Left Heel -Time 13:54 -Correct Patient No No -Correct Side, Site, Position No No -Correct Procedure No No -Procedure Performed No No -Type of Procedure -Clinical Debridement -Post Debridement Size (cm) - Length 0 -Post Debridement Size (cm) - Width 0 -Post Debridement Size (cm) - Depth 0 -Total Square Cm 0 -Wound/Ulcer Outcome Healed- Epithelialized -Ulcer Cleansing -Foul Odor after Cleansing -Bioengineered Tissue -Topical Lidocaine (%) -Bleeding Controlled with -Treatment Response #3 Right Heel -Time 13:54 -Correct Patient No Yes -Correct Side, Site, Position No Yes -Correct Procedure No Yes -Procedure Performed No Yes -Type of Procedure Debridement -Clinical Debridement Subcutaneous -Post Debridement Size (cm) - Length 2.4 -Post Debridement Size (cm) - Width 6 -Post Debridement Size (cm) - Depth 0.6 -Total Square Cm 14.4 -Wound/Ulcer Outcome Not Healed -Ulcer Cleansing Rinsed/ Irrigated with Saline -Foul Odor after Cleansing No -Bioengineered Tissue No -Topical Lidocaine (%) -Bleeding Controlled with Pressure -Treatment Response Procedure Tolerated Well #2 Right Lateral Ankle -Time 13:54 -Correct Patient No Yes -Correct Side, Site, Position No Yes -Correct Procedure No Yes -Procedure Performed No Yes -Type of Procedure Debridement -Clinical Debridement Subcutaneous -Post Debridement Size (cm) - Length 1.8 -Post Debridement Size (cm) - Width 1.6 -Post Debridement Size (cm) - Depth 0.4 -Total Square Cm 2.88 -Wound/Ulcer Outcome Not Healed -Ulcer Cleansing Rinsed/ Irrigated with Saline -Foul Odor after Cleansing No -Bioengineered Tissue No -Topical Lidocaine (%) -Bleeding Controlled with Pressure -Treatment Response Procedure Tolerated Well Pain Scale: 0-10 Numeric Is Patient Pain Free? Yes Yes Wound debrided: leg Laterality: Left Type of Debridement: Excisional debridement Anesthesia Used: 5% Lidocaine Gel Depth: in the subcutaneous layer Percentage of wound debrided: 100 Instrument Used: #15 blade Tissue Removed: fibrous, devitalized subcutaneous, biofilm, slough Severity: Fat Layer Exposed Amount of bleeding with debridement: Mild Bleeding Controlled with: Pressure Patient tolerated procedure well - Additional Wound Wound debrided: heel Laterality: Right Type of Debridement: Excisional debridement Anesthesia Used: 5% Lidocaine Gel Depth: in the subcutaneous layer Percentage of wound debrided: 100 Instrument Used: #15 blade Tissue Removed: fibrous, devitalized subcutaneous, biofilm, slough Severity: Fat Layer Exposed Amount of bleeding with debridement: Mild Bleeding Controlled with: Pressure Patient tolerated procedure: Patient tolerated procedure well - Additional Wound Wound debrided: lateral ankle Laterality: Right Type of Debridement: Excisional debridement Anesthesia Used: 5% Lidocaine Gel Depth: in the subcutaneous layer Percentage of wound debrided: 100 Instrument Used: #15 blade Tissue Removed: fibrous, devitalized subcutaneous, biofilm, slough Severity: Fat Layer Exposed Amount of bleeding with debridement: Mild Bleeding Controlled with: Pressure Patient tolerated procedure: Patient tolerated procedure well - Additional Wound Wound debrided: lateral leg Laterality: Right Type of Debridement: Excisional debridement Anesthesia Used: 5% Lidocaine Gel Depth: in the subcutaneous layer Percentage of wound debrided: 100 Instrument Used: #15 blade Tissue Removed: fibrous, devitalized subcutaneous, biofilm, slough Severity: Fat Layer Exposed Amount of bleeding with debridement: Mild Bleeding Controlled with: Pressure Patient tolerated procedure: Patient tolerated procedure well Assessment/Plan Active Problems (Last Reviewed 08/13/18 @ 10:19 by Fernando Patterson MD) Ulcer of right foot with fat layer exposed (Chronic) Paralysis (Acute) Non-pressure chronic ulcer of other part of left foot with fat layer exposed (Acute) Non-pressure chronic ulcer of other part of right foot with fat layer exposed (Acute) Other specified peripheral vascular diseases (Chronic) Ulcer of left lower extremity with fat layer exposed (Chronic) Malnutrition (Chronic) Delayed wound healing (Chronic) Edema leg (Chronic) Paralysis (Chronic) 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 Fat layer exposed now. Right heel unstageable pressure ulcer, no cellulitis. Partial fat layer exposed now. Left heel unstageable pressure ulcer - healed today. Left posterior / lateral leg unstageable pressure ulcer- healed today. Anterior left ankle/foot dorsum ulcer - healed otday. pressure injury without ulcer to right lower leg, stable. Right leg ulcer fat layer exposed, eschar reducing. Left leg ulcer fat layer exposed. Peripheral vascular disease with rest pain. Other comorbidities. Delayed healing. Malnutrition. Paralysis and gait impairment with wheelchair use Plan: I reviewed and discussed his case today. His ulcer sites were debrided in a subcutaneous excisional manner to the right lateral ankle part of the right heel, left leg. It is noted the Santyl has broken down some of the eschar and there is moist tissue that benefited from being excised at this time. To contin ue Santyl dressing daily; to apply with nickel thickness. some of the left limb ulcers have healed and this is noted. This will be monitored very closely and there does not appear to be an infection. He had recent noninvasive vascular studies performed which demonstrated noncompressible vessels in which ankle-brachial indices were not calculated. This is consistent with rest pain as well as multisegmental occlusive disease and vessel calcification. He did go for consultation with Dr. De Anda previously who formed an angioplasty to her in which intervention options were not identified. It is noted he does have perfusion opportunities available to the lower extremity on the right side. His labs were updated and discussed in his white blood cell count is 6.0, sedimentation rate 14, and hemoglobin A1c 5.8%. His updated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 x-rays do not demonstrate osseous destruction, periosteal reaction, soft tissue emphysema, acute fracture dislocation, or foreign body. Vessel calcification is seen on plain x-ray consistent with vessel disease. It is noted he completed a 6-week course of IV antibiotics and infectious disease has also been following him closely. He had a previous MRI which demonstrated mild marrow edema to the left calcaneus and lateral ankle consistent with osteomyelitis. Due to delayed healing, pain, and continued deep tissue exposure this is consistent with chronic ostium myelitis. I recommend hyperbaric oxygen therapy to optimize healing; this is medically necessary to optimize healing. He watched the video and reports he is amenable and able to travel to the wound healing center daily for this. His last chest x-ray and EKG were reviewed from July. It is noted his ejection fraction is 65%. A referral for wound care center provider for consultation was completed and he has been cleared. Insurance prior authorization has been completed and he is scheduled to start hyperbaric oxygen therapy next Monday. The benefits, risks, complications, anticipated healing time and management were discussed in detail the patient. He understands and elects to proceed with HBO at this time. I answered all his questions. It is okay to transfer with bilateral surgical shoes which were ordered today and while he is working with physical therapy. It is noted the patient and his are having difficulty offloading the sites at home. This patient would benefit from home health care as well as a pressure reduction mattress. This was already ordered and provided. He understands that he is at significant risk for limb loss and our goal at this time is to control any infectious process and establish a clear level of perfusion. To continue with nutritional supplementation, Fred. Due to the improvement in quality tissue after Santyl use, I recommend application of advanced wound care product in the operating room after versa jet aggressive subcutaneous excisional debridement. He is amenable to go to the operating room. I recommend amnio fill and epi cord application. He understands he will need a medical clearance prior to proceeding, and this is scheduled for this upcoming Monday with Dr. Melendez. The [facility] surgical nurse coordinator will then further assist him with scheduling his surgery. The goal is to complete this surgery with MAC and local anesthesia as a same day surgery procedure. The benefits, risks, complications, anticipated healing time management were discussed in detail with the patient in regard to the surgical procedure. He understands this is usually a staged procedure and this is for limb salvage purposes. Surgical consents were signed freely today and he understands no guarantees are made. This is medically necessary to optimize healing. I recommend he follows up the wound healing center 1 week or call sooner if he has any questions or concerns. I answered all his questions.
== END 2018-10-26 23:59 ==
LOC: WC 13:00
PROVIDERS: Family Provider Family Medicine; PCP Family Medicine; Referring Provider Podiatrist; Visit Provider Podiatrist
DX: I73.89 Other specified peripheral vascular diseases (principal); R60.0 Localized edema; L97.822 Non-pressure chronic ulcer of other part of left lower leg with fat layer exposed; G82.20 Paraplegia, unspecified; L97.312 Non-pressure chronic ulcer of right ankle with fat layer exposed; L97.422 Non-pressure chronic ulcer of left heel and midfoot with fat layer exposed; L97.412 Non-pressure chronic ulcer of right heel and midfoot with fat layer exposed; L97.522 Non-pressure chronic ulcer of other part of left foot with fat layer exposed
CPT/HCPCS: 11042; 11045; 97602; 99183; 99212; G0277; G0463

== ENCOUNTER 2018-11-09 07:51 | Day surgery (SDC) | payer MEDICARE, OTHER, SELFPAY ==
[2018-11-09] VITALS (7 sets, daily range): BP systolic 125–156; BP diastolic 64–73; PULSE 61–70; RESP 16–18; TEMP 36.1–36.6; O2SAT 95–98; BMI 24.3
--- NOTE | 2018-11-09 12:08 | PCM.DC.POD ---
Discharge Diet: No Restrictions Discharge Activity: Return to Normal Activity Keep extremity elevated above heart level: Left Leg, Right Leg Call your doctor if your incision/area has: Continuous Slow Oozing, Sudden Increased Bleeding, Increased Pain/ Swelling, Increased Redness, Foul Smelling Discharge, Swelling at the incision site Call your doctor if you observe: Fever of 101 or Higher, Calf discomfort, Uncontrolled pain Cleanse incision/area with: Keep Dressing Clean & Dry Allergies/Adverse Reactions: Allergies Cephalosporins Allergy (Intermediate, Verified 11/06/18 08:58) Laryngospasms Penicillins Allergy (Intermediate, Verified 11/06/18 08:58) Rash IVP DYE Allergy (Uncoded 11/06/18 08:58) Rash Medications to take at Discharge Losartan Potassium [Cozaar] 12.5 mg PO DAILY 01/12/16 Riboflavin (Vitamin B2) [Vitamin B2] 300 mg PO DAILY@1700 11/10/16 Ascorbic Acid [Vitamin C] 500 mg PO TID 07/05/18 Gabapentin [Neurontin] 600 mg PO TID 07/05/18 [place] Carbonate 150 mg PO TID 07/05/18 Furosemide [Lasix] 40 mg PO DAILY 08/11/18 Magnesium 500 mg PO BID 08/11/18 Sennosides/Docusate Sodium [Senna-S Laxative Tablet] 2 each PO DAILY 08/11/18 traZODone [Desyrel] 25 mg PO QHS 08/11/18 Collagenase [Santyl] 1 applic TOPICAL DAILY tube 08/14/18 Mineral Oil/Petrolatum,White [Eucerin] 1 applic TOPICAL BID jar 08/14/18 Atorvastatin Calcium [Lipitor] 40 mg PO QHS 11/06/18 Carvedilol [Coreg (Beta Krissy)] 3.125 mg PO BID 11/06/18 Clopidogrel Bisulfate [Plavix] 75 mg PO DAILY 11/06/18 Cyclobenzaprine [Flexeril] 2.5 mg PO QHS PRN 11/06/18 Duloxetine Hcl [Cymbalta] 60 mg PO DAILY 11/06/18 Isosorbide Mononitrate 10 mg PO QHS 11/06/18 Morphine Sulfate [Morphine Sulfate ER] 15 mg PO BID 11/06/18 Multivitamins,Ther W-Minerals [Multivitamin With Minerals] 1 tablet PO DAILY 11/06/18 Nutritional Supplement [Fred - ORANGE FLAVOR] 1 packet PO BIDCM 11/06/18 Pyridoxine HCl [Vitamin B-6] 100 mg PO DAILY 11/06/18 Smz/Tmp Ds [Bactrim Ds] 1 tablet PO DAILY 11/06/18 Tamsulosin HCl [Flomax] 0.4 mg PO 1700 11/06/18 Primary Care Physician: Eris Melendez MD [Primary Care Provider] - Test Results: Test results from this visit will be discussed in further detail at your follow-up appointment, if applicable. Please Follow Up With: Beth Naranjo DPM When: next Monday at [facility]. call [phone] sooner if concerns Proposed Discharge Date: 11/09/18
--- NOTE | 2018-11-09 12:11 | DCINST_ITS ---
Discharge Diet: No Restrictions Discharge Activity: Return to Normal Activity Keep extremity elevated above heart level: Left Leg, Right Leg Call your doctor if your incision/area has: Continuous Slow Oozing, Sudden Increased Bleeding, Increased Pain/ Swelling, Increased Redness, Foul Smelling Discharge, Swelling at the incision site Call your doctor if you observe: Fever of 101 or Higher, Calf discomfort, Uncontrolled pain Cleanse incision/area with: Keep Dressing Clean & Dry Allergies/Adverse Reactions: Allergies Cephalosporins Allergy (Intermediate, Verified 11/06/18 08:58) Laryngospasms Penicillins Allergy (Intermediate, Verified 11/06/18 08:58) Rash IVP DYE Allergy (Uncoded 11/06/18 08:58) Rash Medications to take at Discharge Losartan Potassium [Cozaar] 12.5 mg PO DAILY 01/12/16 Riboflavin (Vitamin B2) [Vitamin B2] 300 mg PO DAILY@1700 11/10/16 Ascorbic Acid [Vitamin C] 500 mg PO TID 07/05/18 Gabapentin [Neurontin] 600 mg PO TID 07/05/18 [place] Carbonate 150 mg PO TID 07/05/18 Furosemide [Lasix] 40 mg PO DAILY 08/11/18 Magnesium 500 mg PO BID 08/11/18 Sennosides/Docusate Sodium [Senna-S Laxative Tablet] 2 each PO DAILY 08/11/18 traZODone [Desyrel] 25 mg PO QHS 08/11/18 Collagenase [Santyl] 1 applic TOPICAL DAILY tube 08/14/18 Mineral Oil/Petrolatum,White [Eucerin] 1 applic TOPICAL BID jar 08/14/18 Atorvastatin Calcium [Lipitor] 40 mg PO QHS 11/06/18 Carvedilol [Coreg (Beta Krissy)] 3.125 mg PO BID 11/06/18 Clopidogrel Bisulfate [Plavix] 75 mg PO DAILY 11/06/18 Cyclobenzaprine [Flexeril] 2.5 mg PO QHS PRN 11/06/18 Duloxetine Hcl [Cymbalta] 60 mg PO DAILY 11/06/18 Isosorbide Mononitrate 10 mg PO QHS 11/06/18 Morphine Sulfate [Morphine Sulfate ER] 15 mg PO BID 11/06/18 Multivitamins,Ther W-Minerals [Multivitamin With Minerals] 1 tablet PO DAILY 11/06/18 Nutritional Supplement [Fred - ORANGE FLAVOR] 1 packet PO BIDCM 11/06/18 Pyridoxine HCl [Vitamin B-6] 100 mg PO DAILY 11/06/18 Smz/Tmp Ds [Bactrim Ds] 1 tablet PO DAILY 11/06/18 Tamsulosin HCl [Flomax] 0.4 mg PO 1700 11/06/18 Primary Care Physician: Eris Melendez MD [Primary Care Provider] - Test Results: Test results from this visit will be discussed in further detail at your follow- up appointment, if applicable. Please Follow Up With: Beth Naranjo DPM When: next Monday at [facility]. call [phone] sooner if concerns Proposed Discharge Date: 11/09/18
--- NOTE | 2018-11-09 12:16 | OP.PN_ITS ---
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 Ulcer with muscle layer exposed: Left leg Post-Operative Diagnosis: Ulcer with fat layer exposed: Right heel, right ankle, right leg. Ulcer with muscle layer exposed: Left leg Surgery/Procedure Performed:: Excisional subcutaneous debridement bilateral leg, right ankle, right heel with a versa jet. Application of advanced wound care product, epi cord: Right heel and ankle, left leg. Application of advanced wou nd care product, amniofill: All sites bilateral lower extremities Description of Surgical Findings:: Hemostasis controlled; no tourniquet Materials: 250 mg amniofill, 3 x 5 cm? epi cord, 3-0 nylon, Adaptic Findings: No acute infection. Ulcer measurements include the following: Right heel pre-debridement 2.4 x 5.3 x 0.3 cm and post debridement 2.6 x 5.5 x 0.3 cm, right lateral ankle pre-debridement 2.0 x 1.6 x 0.1 cm and post debridement 2.2 x 1.8 x 0.2 cm, right leg cluster pre-debridement 8 cm x 2.8 cm x 0.2 cm and post debridement 8.2 x 3.0 x 0.2 cm in which 50% was debrided, left leg pre- debridement 2.0 x 2.0 x 1.2 cm with proximal undermining noted and post debridement 2.4 x 3.0 x 1.2 cm (there is peroneal muscle belly noted at this site and it is not necrotic). See detailed operation report for further details Complications: None The patient tolerated the procedure and anesthesia well. He was transported to the PACU with vital signs stable and vascular status intact to the bilateral lower extremities. To keep the dressings clean, dry, and intact until follow-up visit next week. No specimens were obtained. Postoperative orders were entered electronically and he will be discharged home later today. Estimated Blood Loss: < 40 mL Specimen's removed: none Type of Anesthesia:: MAC - Admit VTE Documentation VTE Present on Admission: No VTE Mechan Device Prophylaxis: None VTE Pharm Prophylaxis ordered?: No Reason prophylaxis not ordered:: Treatment Not Indicated
--- NOTE | 2018-11-10 09:17 | PCM.OPRPT ---
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 Ulcer with muscle layer exposed: Left leg Post-Operative Diagnosis: Ulcer with fat layer exposed: Right heel, right ankle, right leg. Ulcer with muscle layer exposed: Left leg Surgery/Procedure Performed:: Excisional subcutaneous debridement bilateral leg, right ankle, right heel with a versa jet. Application of advanced wound care product, epi cord: Right heel and ankle, left leg. Application of advanced wound care product, amniofill: All sites bilateral lower extremities Description of Surgical Findings:: Hemostasis controlled; no tourniquet Materials: 250 mg amniofill, 3 x 5 cm? epi cord, 3-0 nylon, Adaptic Findings: No acute infection. Ulcer measurements include the following: Right heel pre-debridement 2.4 x 5.3 x 0.3 cm and post debridement 2.6 x 5.5 x 0.3 cm, right lateral ankle pre-debridement 2.0 x 1.6 x 0.1 cm and post debridement 2.2 x 1.8 x 0.2 cm, right leg cluster pre-debridement 8 cm x 2.8 cm x 0.2 cm and post debridement 8.2 x 3.0 x 0.2 cm in which 50% was debrided, left leg pre-debridement 2.0 x 2.0 x 1.2 cm with proximal undermining noted and post debridement 2.4 x 3.0 x 1.2 cm (there is peroneal muscle belly noted at this site and it is not necrotic). fence laborer: none Type of Anesthesia:: MAC Specimen's removed: none Estimated Blood Loss (mL): < 40 mL Description of Procedure: Indications: This 83-year-old male with significant past medical history of hypertension, paralysis, and impaired vascular status suffers from ongoing delayed bilateral leg ulcers. He underwent a standard wound care plan including serial debridements, offloading, diet improvement, and advanced wound care product applications in the outpatient setting. He demonstrates recent ulcer site quality improvement after his eschars have been debrided mechanically and with enzymatic debrider, Santyl. He has ongoing delayed healing and does not have any local signs of infection at this time. He has previously been evaluated by vascular surgery who performed an angiogram do not recommend additional intervention. He was cleared by his medical doctor and I reviewed his history and physical exam. His preoperative diagnostic data was also reviewed and he is stable at this time. The preoperative indications, planned procedure, possible benefits, risks, complications, and anticipated healing time management were discussed in detail with patient. He understands complications include but are not limited to the following: Infection, continued delayed or nonhealing, scarring, pain, swelling, need for additional surgery, loss of limb, function, or light, allergic reaction, blood clot. No guarantees were made. Informed surgical consent and surgical limbs were signed. I answered all his questions. This is a planned stage procedure. Procedure in detail: The patient was transported to the operating room via cart and placed on the operating table in the supine position. Final verification was then performed via the timeout procedure including patient, planned procedure, and limb designation. MAC anesthesia was initiated by the anesthesia team. Local anesthesia was not administered due to lack of sensation and paralysis status. Bilateral lower extremities were prepped and draped in the usual aseptic manner and surgery began as the following: Versa jet on setting 8 was used to perform a subcutaneous excisional debridement to all ulcer sites to remove nonviable fibrous tissue, devitalized subcutaneous tissue, biofilm, slough. Pressure was applied to maintain hemostasis and she appeared to have tolerated this well. There was no necrosis, infection, or uncontrolled bleeding noted. The ulcer beds appeared granular with some interspersed fibrous tissue. The pre-and post debridement ulcer sizes are as noted above. The recently debrided ulcer sites were next copiously irrigated with normal saline. Next, the advanced wound healing product, amniofill, was applied copiously to cover all debridement sites; 250 mg was utilized. Additional epi cord was applied and moistened over the right heel, lateral ankle ulcer, and left leg to facilitate wound scaffolding. This was secured in place with nylon Sutures. All of these sites were further secured in place with Adaptic and Steri-Strips and further moistened with a saline gauze. Next, a secondary dressing was additionally applied to bilateral lower extremities including gauze, abdominal pads, Kerlix, and coban. No infection or deep necrosis was noted. No specimens were sent. After procedure: The patient tolerated the procedure and anesthesia well. He was transferred to the PACU with vital signs stable and intact to bilateral lower extremities. His capillary refill time remains brisk to all digits of bilateral foot and there was no pulsatile bleeding noted prior to dressing application. He was advised to elevate for inflammation management. He was advised to keep his dressings clean, dry, and intact until he comes to the wound healing center next Monday. Postoperative orders were entered electronically. He understands this is likely a staged procedure and is part of a comprehensive wound healing plan. He will continue to consider hyperbaric oxygen therapy as an adjunctive treatment. He was advised to continue to keep pressure directly off the sites. Beth Naranjo DPM, [facility] Grafts/Implants Used: mimedx amniofill and epicord
--- NOTE | 2018-11-10 09:24 | OP.PCM_ITS ---
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 Ulcer with muscle layer exposed: Left leg Post-Operative Diagnosis: Ulcer with fat layer exposed: Right heel, right ankle, right leg. Ulcer with muscle layer exposed: Left leg Surgery/Procedure Performed:: Excisional subcutaneous debridement bilateral leg, right ankle, right heel with a versa jet. Application of advanced wound care p roduct, epi cord: Right heel and ankle, left leg. Application of advanced wound care product, amniofill: All sites bilateral lower extremities Description of Surgical Findings:: Hemostasis controlled; no tourniquet Materials: 250 mg amniofill, 3 x 5 cm? epi cord, 3-0 nylon, Adaptic Findings: No acute infection. Ulcer measurements include the following: Right heel pre-debridement 2.4 x 5.3 x 0.3 cm and post debridement 2.6 x 5.5 x 0.3 cm, right lateral ankle pre-debridement 2.0 x 1.6 x 0.1 cm and post debridement 2.2 x 1.8 x 0.2 cm, right leg cluster pre-debridement 8 cm x 2.8 cm x 0.2 cm and post debridement 8.2 x 3.0 x 0.2 cm in which 50% was debrided, left leg pre- debridement 2.0 x 2.0 x 1.2 cm with proximal undermining noted and post debridement 2.4 x 3.0 x 1.2 cm (there is peroneal muscle belly noted at this site and it is not necrotic). java sdet: none Type of Anesthesia:: MAC Specimen's removed: none Estimated Blood Loss (mL): < 40 mL Description of Procedure: Indications: This 83-year-old male with significant past medical history of hypertension, paralysis, and impaired vascular status suffers from ongoing delayed bilateral leg ulcers. He underwent a standard wound care plan including serial debridements, offloading, diet improvement, and advanced wound care product applications in the outpatient setting. He demonstrates recent ulcer site quality improvement after his eschars have been debrided mechanically and with enzymatic debrider, Santyl. He has ongoing delayed healing and does not have any local signs of infection at this time. He has previously been evaluated by vascular surgery who performed an angiogram do not recommend additional intervention. He was cleared by his medical doctor and I reviewed his history and physical exam. His preoperative diagnostic data was also reviewed and he is stable at this time. The preoperative indications, planned procedure, possible benefits, risks, complications, and anticipated healing time management were discussed in detail with patient. He understands complications include but are not limited to the following: Infection, continued delayed or nonhealing, scarring, pain, swelling, need for additional surgery, loss of limb, function, or light, allergic reaction, blood clot. No guarantees were made. Informed surgical consent and surgical limbs were signed. I answered all his questions. This is a planned stage procedure. Procedure in detail: The patient was transported to the operating room via cart and placed on the operating table in the supine position. Final verification was then performed via the timeout procedure including patient, planned procedure, and limb designation. MAC anesthesia was initiated by the anesthesia team. Local anesthesia was not administered due to lack of sensation and paralysis status. Bilateral lower extremities were prepped and draped in the usual aseptic manner and surgery began as the following: Versa jet on setting 8 was used to perform a subcutaneous excisional debridement to all ulcer sites to remove nonviable fibrous tissue, devitalized subcutaneous tissue, biofilm, slough. Pressure was applied to maintain hemostasis and she appeared to have tolerated this well. There was no necrosis, infection, or uncontrolled bleeding noted. The ulcer beds appeared granular with some interspersed fibrous tissue. The pre-and post debridement ulcer sizes are as noted above. The recently debrided ulcer sites were next copiously irrigated with normal saline. Next, the advanced wound healing product, amniofill, was applied copiously to cover all debridement sites; 250 mg was utilized. Additional epi cord was applied and moistened over the right heel, lateral ankle ulcer, and left leg to facilitate wound scaffolding. This was secured in place with nylon Sutures. All of these sites were further secured in place with Adaptic and Steri-Strips and further moistened with a saline gauze. Next, a secondary dressing was additionally applied to bilateral lower extremities including gauze, abdominal pads, Kerlix, and coban. No infection or deep necrosis was noted. No specimens were sent. After procedure: The patient tolerated the procedure and anesthesia well. He was transferred to the PACU with vital signs stable and intact to bilateral lower extremities. His capillary refill time remains brisk to all digits of bilateral foot and there was no pulsatile bleeding noted prior to dressing application. He was advised to elevate for inflammation management. He was advised to keep his dressings clean, dry, and intact until he comes to the wound healing center next W . Postoperative orders were entered electronically. He understands this is likely a staged procedure and is part of a comprehensive wound healing plan. He will continue to consider hyperbaric oxygen therapy as an adjunctive treatment. He was advised to continue to keep pressure directly off the sites. Beth Naranjo DPM, [facility] Grafts/Implants Used: mimedx amniofill and epicord
--- OUTSIDE RECORDS SUMMARY | 2018-12-25 19:25 | XMS RPT_ITS ---
:1935 Author Organization [facility] Support Name Relationship Address Phone BOB LUCILLE Unavailable [address] + [place] [address] R Unavailable Unavailable Unavailable MEGGYESY, LUCILLE Unavailable [address] + [place] [address] R Unavailable Unavailable Unavailable MEGGYESY, LUCILLE Unavailable [address] + [facility] [place] [address] R Unavailable Unavailable Unavailable MEGGYESY, LUCILLE Unavailable [address] + [facility] [place] [address] R Unavailable Unavailable Unavailable MEGGYESY, LUCILLE Unavailable [address] + [facility] [place] [address] R Unavailable Unavailable Unavailable MEGGYESY, LUCILLE Unavailable [address] + [facility] [place] [address] R Unavailable Unavailable Unavailable MEGGYESY, LUCILLE Unavailable [address] + [facility] [place] [address] R Unavailable Unavailable Unavailable MEGGYESY, LUCILLE Unavailable [address] + [facility] [place] [address] R Unavailable Unavailable Unavailable MEGGYESY, LUCILLE Unavailable [address] + [facility] [place] [address] R Unavailable Unavailable Unavailable MEGGYESY, LUCILLE Unavailable [address] + [facility] [place] [address] R Unavailable Unavailable Unavailable MEGGYESY, LUCILLE Unavailable [address] + [facility] [place] [address] R Unavailable Unavailable Unavailable MEGGYESY, LUCILLE Unavailable [address] + [place] [address] R Unavailable Unavailable Unavailable MEGGYESY, LUCILLE Unavailable [address] + [place] [address] R Unavailable Unavailable Unavailable MEGGYESY, LUCILLE Unavailable [address] + [place] [address] R Unavailable Unavailable Unavailable MEGGYESY, LUCILLE Unavailable [address] + [place] [address] R Unavailable Unavailable Unavailable MEGGYESY, LUCILLE Unavailable [address] + [place] [address] R Unavailable Unavailable Unavailable MEGGYESY, LUCILLE Unavailable [address] + [place] [address] R Unavailable Unavailable Unavailable MEGGYESY, LUCILLE Unavailable [address] + [place] [address] R Unavailable Unavailable Unavailable MEGGYESY, LUCILLE Unavailable [address] + [place] [address] R Unavailable Unavailable Unavailable MEGGYESY, LUCILLE Unavailable [address] + [place] [address] R Unavailable Unavailable Unavailable MEGGYESY, KATIE Unavailable [address] + [address] [place] [address] MEGGYESYDAGOBERTO Unavailable Unavailable + MEGGYESY, LUCILLE Unavailable [address] + [place] [address] R Unavailable Unavailable Unavailable MEGGYESY, LUCILLE Unavailable [address] + [place] [address] R Unavailable Unavailable Unavailable MEGGYESY, LUCILLE Unavailable [address] + [place] [address] R Unavailable Unavailable Unavailable Meggyesy, Lucille Unavailable [address] + [place] [address] R Unavailable Unavailable Unavailable Meggyesy, Lucille Unavailable [address] + [place] [address] R Unavailable Unavailable Unavailable Meggyesy, Lucille Unavailable [address] + [place] [address] R Unavailable Unavailable Unavailable Meggyesy, Lucille Unavailable [address] + [place] [address] R Unavailable Unavailable Unavailable Meggyesy, Lucille Unavailable [address] + [place] [address] R Unavailable Unavailable Unavailable Meggyesy, Lucille Unavailable [address] + [place] [address] R Unavailable Unavailable Unavailable Meggyesy, Lucille Unavailable [address] + [place] [address] R Unavailable Unavailable Unavailable Meggyesy, Lucille Unavailable [address] + [place] [address] R Unavailable Unavailable Unavailable Meggyesy, Lucille Unavailable [address] + [place] [address] R Unavailable Unavailable Unavailable Meggyesy, Lucille Unavailable [address] + [place] [address] R Unavailable Unavailable Unavailable Meggyesy, Lucille Unavailable [address] + [place] [address] R Unavailable Unavailable Unavailable Meggyesy, Lucille Unavailable [address] + [place] [address] R Unavailable Unavailable Unavailable Meggyesy, Lucille Unavailable [address] + [place] [address] R Unavailable Unavailable Unavailable Meggyesy, Lucille Unavailable [address] + [place] [address] R Unavailable Unavailable Unavailable Meggyesy, Lucille Unavailable [address] + [place] [address] R Unavailable Unavailable Unavailable Meggyesy, Lucille Unavailable [address] + [place] [address] R Unavailable Unavailable Unavailable Meggyesy, Lucille Unavailable [address] + [place] [address] R Unavailable Unavailable Unavailable Meggyesy, Lucille Unavailable [address] + [place] [address] R Unavailable Unavailable Unavailable Meggyesy, Lucille Unavailable [address] + [place] [address] R Unavailable Unavailable Unavailable Meggyesy, Lucille Unavailable [address] + [place] [address] R Unavailable Unavailable Unavailable Meggyesy, Lucille Unavailable [address] + [place] [address] R Unavailable Unavailable Unavailable Meggyesy, Lucille Unavailable [address] + [place] [address] R Unavailable Unavailable Unavailable Meggyesy, Lucille Unavailable [address] + [place] [address] R Unavailable Unavailable Unavailable Meggyesy, Lucille Unavailable [address] + [place] [address] R Unavailable Unavailable Unavailable MEGGYESY, LUCILLE Unavailable [address] + [place] [address] R Unavailable Unavailable Unavailable MEGGYESY, LUCILLE Unavailable [address] + [place] [address] R Unavailable Unavailable Unavailable MEGGYESY, LUCILLE Unavailable [address] + [place] [address] R Unavailable Unavailable Unavailable MEGGYESY, LUCILLE Unavailable [address] + [place] [address] R Unavailable Unavailable Unavailable MEGGYESY, LUCILLE Unavailable [address] + [place] [address] R Unavailable Unavailable Unavailable MEGGYESY, LUCILLE Unavailable [address] + [place] [address] R Unavailable Unavailable Unavailable MEGGYESY, LUCILLE Unavailable [address] + [place] [address] R Unavailable Unavailable Unavailable MEGGYESY, LUCILLE Unavailable [address] + [place] [address] R Unavailable Unavailable Unavailable MEGGYESY, LUCILLE Unavailable [address] + [place] [address] R Unavailable Unavailable Unavailable MEGGYESY, LUCILLE Unavailable [address] + [place] [address] R Unavailable Unavailable Unavailable Meggyesy, Lucille Unavailable [address] + [place] [address] R Unavailable Unavailable Unavailable MEGGYESY, LUCILLE Unavailable [address] + [place] [address] R Unavailable Unavailable Unavailable MEGGYESY, LUCILLE Unavailable [address] + [place] [address] R Unavailable Unavailable Unavailable MEGGYESY, LUCILLE Unavailable [address] + [place] [address] R Unavailable Unavailable Unavailable MEGGYESY, LUCILLE Unavailable [address] + [place] [address] R Unavailable Unavailable Unavailable MEGGYESY, LUCILLE Unavailable [address] + [place] [address] R Unavailable Unavailable Unavailable MEGGYESY, LUCILLE Unavailable [address] + [place] [address] R Unavailable Unavailable Unavailable MEGGYESY, LUCILLE Unavailable [address] + [place] [address] R Unavailable Unavailable Unavailable MEGGYESY, LUCILLE Unavailable [address] + [place] [address] R Unavailable Unavailable Unavailable MEGGYESY, LUCILLE Unavailable [address] + [place] [address] R Unavailable Unavailable Unavailable MEGGYESY, LUCILLE Unavailable [address] + [place] [address] R Unavailable Unavailable Unavailable Care Team Providers Name Role Phone LIOR PIPER, ANGELIA Jorge Attending Unavailable AL JACINTO, JOSETTE A Primary Care Unavailable Peres, Arlene Attending Unavailable Fascione, Beth Referring Unavailable Melendez, Josette Primary Care Unavailable Fascione, Beth Consulting Unavailable Melendez, Josette Attending Unavailable Melendez, Josette Primary Care Unavailable Melendez, Josette Referring Unavailable Peres, Arlene Attending Unavailable Fascione, Beth Referring Unavailable Peres, Arlene Attending Unavailable Fascione, Beth Referring Unavailable Peres, Arlene Attending Unavailable Fascione, Beth Referring Unavailable Peres, Arlene Attending Unavailable Fascione, Beth Referring Unavailable Peres, Arlene Attending Unavailable Fascione, Beth Referring Unavailable Peres, Arlene Attending Unavailable Fascione, Beth Referring Unavailable Fascione, Beth Attending Unavailable Fascione, Beth Referring Unavailable Melendez, Josette Primary Care Unavailable Peres, Arlene Attending Unavailable Fascione, Beth Referring Unavailable Peres, Arlene Attending Unavailable Fascione, Beth Referring Unavailable Peres, Arlene Attending Unavailable Fascione, Beth Referring Unavailable Oleghe, Efewongbe Attending Unavailable Oleghe, Efewongbe Referring Unavailable Peres, Arlene Attending Unavailable Fascione, Beth Referring Unavailable Melendez, Josette Attending Unavailable Melendez, Josette Referring Unavailable Melendez, Josette Primary Care Unavailable Melendez, Josette Primary Care Unavailable Sementi, Ana Admitting Unavailable Jakob, Jose Consulting Unavailable Jopperi, Josette Attending Unavailable Sementi, Ana Admitting Unavailable Sementi, Ana Attending Unavailable Melendez, Josette Primary Care Unavailable Sementi, Ana Consulting Unavailable Sementi, Ana Admitting Unavailable Jopperi, Josette Attending Unavailable Melendez, Josette Primary Care Unavailable Jakob, Jose Consulting Unavailable Jopperi, Josette Consulting Unavailable Sementi, Ana Admitting Unavailable Jopperi, Josette Attending Unavailable Melendez, Josette Primary Care Unavailable Jakob, Jose Consulting Unavailable Jopperi, Josette Consulting Unavailable Sementi, Ana Admitting Unavailable Jopperi, Josette Attending Unavailable Melendez, Josette Primary Care Unavailable Jakob, Jose Consulting Unavailable Jopperi, Josette Consulting Unavailable Melendez, Josette Attending Unavailable Melendez, Josette Primary Care Unavailable Melendez, Josette Attending Unavailable Haider Gomez Attending Unavailable Jose Lagos Attending Unavailable Melendez, Josette Primary Care Unavailable Ashelfah, Ghasem Admitting Unavailable Ashelfah, Ghasem Attending Unavailable Jewel Calderon Consulting Unavailable Ashelfah, Ghasem Admitting Unavailable Ashelfah, Ghasem Attending Unavailable Melendez, Josette Primary Care Unavailable Jewel Calderon Consulting Unavailable Ashelfah, Ghasem Consulting Unavailable Ashelfah, Ghasem Admitting Unavailable Ashelfah, Ghasem Attending Unavailable Melendez, Josette Primary Care Unavailable Jewel Calderon Consulting Unavailable Ashelfah, Ghasem Consulting Unavailable Ashelfah, Ghasem Admitting Unavailable Jewel Calderon Attending Unavailable Melendez, Josette Primary Care Unavailable Jewel Calderon Consulting Unavailable Ashelfah, Ghasem Consulting Unavailable Ashelfah, Ghasem Admitting Unavailable Ashelfah, Ghasem Attending Unavailable Melendez, Josette Primary Care Unavailable Jewel Calderon Consulting Unavailable Ashelfah, Ghasem Consulting Unavailable Ashelfah, Ghasem Admitting Unavailable Rodolfo, Aline Attending Unavailable Melendez, Josette Primary Care Unavailable Jewel Calderon Consulting Unavailable Ashelfah, Ghasem Consulting Unavailable Ashelfah, Ghasem Admitting Unavailable Ashelfah, Ghasem Attending Unavailable Melendez, Josette Primary Care Unavailable Jewel Calderon Consulting Unavailable Ashelfah, Ghasem Consulting Unavailable Ashelfah, Ghasem Admitting Unavailable Rodolfo, Aline Attending Unavailable Melendez, Josette Primary Care Unavailable Jewel Calderon Consulting Unavailable Ashelfah, Ghasem Consulting Unavailable Ashelfah, Ghasem Admitting Unavailable Ashelfah, Ghasem Attending Unavailable Melendez, Josette Primary Care Unavailable Jewel Calderon Consulting Unavailable Ashelfah, Ghasem Consulting Unavailable Ashelfah, Ghasem Admitting Unavailable Rodolfo, Aline Attending Unavailable Melendez, Josette Primary Care Unavailable Jewel Calderon Consulting Unavailable Ashelfah, Ghasem Consulting Unavailable Rolando Kibry Attending Unavailable Indra, Rolando Attending Unavailable Indra, Rolando Attending Unavailable Lulu Ruiz Attending Unavailable Melendez, Josette Referring Unavailable Rolando Kirby Attending Unavailable Rolando Kirby Attending Unavailable Jewel Calderon Attending Unavailable Ashelfah, Ghasem Referring Unavailable Indra, Rolando Attending Unavailable Melendez, Josette Primary Care Unavailable Dany Kwon Admitting Unavailable Vicente Quintana Consulting Unavailable Paintsil, Lemhi Attending Unavailable Jakob, Jose Consulting Unavailable Cebul, Jose Consulting Unavailable Kirk, Lore S. Consulting Unavailable Agyepong, Dany Admitting Unavailable Agyepong, Dany Attending Unavailable Melendez, Josette Primary Care Unavailable Agyepong, Dany Consulting Unavailable Agyepong, Dany Admitting Unavailable Melendez, Josette Primary Care Unavailable Wunuraing, Vicente Consulting Unavailable Karson, Rafiq Attending Unavailable Karson, Rafiq Consulting Unavailable Paintsil, Lemhi Attending Unavailable Agyepong, Dany Admitting Unavailable Melnedez, Josette Primary Care Unavailable Wunning, Vicente Consulting Unavailable Kirk, Lore S. Consulting Unavailable Jakob, Jose Consulting Unavailable Paintsil, Lemhi Consulting Unavailable Agyepong, Dany Admitting Unavailable Melendez, Josette Primary Care Unavailable Wunning, Vicente Consulting Unavailable Paintsil, Lemhi Attending Unavailable Kirk, Lore S. Consulting Unavailable Jakob, Jose Consulting Unavailable Cebul, Jose Consulting Unavailable Paintsil, Lemhi Consulting Unavailable Paintsil, Lemhi Attending Unavailable Agyepong, Dany Admitting Unavailable Melendez, Josette Primary Care Unavailable Chasitying, Vicente Consulting Unavailable Jakob, Jose Consulting Unavailable Cebul, Jose Consulting Unavailable Kirk, Lore S. Consulting Unavailable Paintsil, Lemhi Consulting Unavailable Patricia, Haider Attending Unavailable Ashelfandra, Israasem Referring Unavailable Kirby, Rolando Attending Unavailable Fascione, Beth Attending Unavailable Melendez, Josette Primary Care Unavailable Kirby, Rolando Attending Unavailable Fascione, Beth Attending Unavailable Melendez, Josette Primary Care Unavailable Fascione, Beth Referring Unavailable Kirby, Rolando Attending Unavailable Kirby, Rolando Attending Unavailable Kirby, Rolando Attending Unavailable Patricia, Motley Attending Unavailable Paintsil, Lemhi Referring Unavailable Kirby, Rolando Attending Unavailable Kirby, Rolando Attending Unavailable Cebul, Jose Attending Unavailable Paintsil, Lemhi Referring Unavailable Cebul, Jose Attending Unavailable Vicente Quintana Referring Unavailable Kirby, Rolando Attending Unavailable Fascione, Beth Attending Unavailable Fascione, Beth Referring Unavailable Melendez, Josette Primary Care Unavailable Melendez, Josette Primary Care Unavailable Melendez, Josette Attending Unavailable Melendez, Josette Referring Unavailable Fascione, Beth Consulting Unavailable Mara Belle Attending Unavailable Fascione, Beth Referring Unavailable Melendez, Josette Primary Care Unavailable Fascione, Beth Consulting Unavailable Fascione, Beth Attending Unavailable Fascione, Beth Referring Unavailable Melendez, Josette Primary Care Unavailable Fascione, Beth Attending Unavailable Fascione, Beth Referring Unavailable Melendez, Josette Primary Care Unavailable Mara Belle Attending Unavailable Fascione, Beth Referring Unavailable Melendez, Josette Primary Care Unavailable Fascione, Beth Consulting Unavailable PROBLEMS PROBLEMS DATE TYPE CONDITION / CODE ATTENDING STATUS SOURCE 12/14/2018 Unknown M86.671 - Other Peres, Active [place] chronic osteomyelitis, [facility]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 / Hospital M86.671(ICD-10) Repository 12/14/2018 Unknown L97.922 - Non-pressure Peres, Active [place] chronic ulcer of [facility] unspecified part of Hospital left lower leg with Repository fat layer exposed / L97.922(ICD-10) 12/14/2018 Unknown L97.522 - Non-pressure Peres, Active [facility] chronic ulcer of other [facility] part of left foot with Hospital fat layer exposed / Repository L97.522(ICD-10) 11/23/2018 Unknown 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, 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, [facility]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 / Hospital M89.671(ICD-10) Repository 10/15/2018 Unknown M86.9 - Osteomyelitis, Josette Melendez Active [facility] unspecified / Community M86.9(ICD-10) Hospital Repository 10/15/2018 Unknown Z98.2 - Presence of Josette Melendez Active [facility] cerebrospinal fluid Community drainage device / Hospital Z98.2(ICD-10) Repository 09/13/2018 Unknown I10 - Essential Patricia, Motley Active [facility] (primary) hypertension Community / I10(ICD-10) Hospital Repository 09/13/2018 Unknown R94.31 - Abnormal Patricia, Motley Active [place] electrocardiogram Community [ECG] [EKG] / Hospital R94.31(ICD-10) Repository 09/13/2018 Unknown 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, 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 / Community I25.2(ICD-10) Hospital Repository 09/18/2018 Unknown I73.9 - Peripheral Cebucory Jose Active [place] vascular disease, Community unspecified / Hospital I73.9(ICD-10) Repository 07/27/2018 Unknown I21.4 - Non-ST Ruiz, Active [place] elevation (NSTEMI) Lulu Bhatti [facility] myocardial infarction Hospital / I21.4(ICD-10) Repository 08/16/2018 Unknown I47.2 - Ventricular Patricia, Haider Active [place] tachycardia / Community I47.2(ICD-10) Hospital Repository 07/09/2018 Unknown G89.4 - Chronic pain Ashelfah, Active [facility] syndrome / [facility] G89.4(ICD-10) Hospital Repository 07/09/2018 Unknown G82.20 - Paraplegia, Ashelfah, Active [facility] unspecified / [facility] G82.20(ICD-10) Hospital Repository 07/09/2018 Unknown G89.29 - Other chronic Ashelfah, Active [facility] pain / G89.29(ICD-10) [facility] Hospital Repository 02/05/2018 Unknown L03.116 - Cellulitis Josette Melendez Active [facility] of left lower limb / Community L03.116(ICD-10) Hospital Repository 03/01/2018 Unknown R01.1 - Cardiac PatriciaFrank mcdanielsril Active [place] murmur, unspecified / Community R01.1(ICD-10) Hospital Repository 03/21/2018 Unknown M79.89 - Other CebuJose ray Active [facility] specified soft tissue Community disorders / Hospital M79.89(ICD-10) Repository 03/08/2018 Unknown M25.512 - Pain in left Josette Melendez Active [facility] shoulder / Community M25.512(ICD-10) Hospital Repository PROCEDURES PROCEDURES No Procedure Records FoundRESULTS RESULTS LITHIUM Collected: 11/16/2018 Status: F Source: [place] 8:56 AM [facility] REPOSITORY Order Comment: Date of Last Dose: 11/16/18 Time of Last Dose: 0000 TYPE CODE TESTS RESULT OUT OF RANGE REFERENCE UNITS LAB L501.9060 0.60-1.20 mmol/L Low LI 0.50 Performed By: #### L501.9060 #### [facility] [address] [place], [place], [address] COMPREHENSIVE METABOLIC Collected: 11/16/2018 Status: F Source: [place] PROFIL 8:55 AM [facility] REPOSITORY TYPE CODE TESTS RESULT OUT OF RANGE REFERENCE UNITS LAB L501.0100 74-106 mg/dL High GLU 155 Result Comment: Fasting Glucose result greater than or equal to 126 mg/dL suggests DIABETES MELLITUS per A.D.A. criteria. Please note revised GLUCOSE reference range effective 2017. LAB L501.1000 7-18 mg/dL High BUN 32 LAB L501.1100 0.70-1.30 mg/dL Normal CREAT,SERUM 0.88 Result Comment: The validity of the calculated GFR AND GFRAA in patients over 70 years has not been determined. Clinical correlation is essential. LAB L501.1110 >60 mL/min Normal EST GFR 88 Result Comment: Non- GFR Calc LAB L501.1115 >60 mL/min Normal EST GFR - AA 106 Result Comment: GFR Calc LAB L501.1300 10-20 RATIO High BUN/CRE 36.2 LAB L501.1500 6.4-8.2 g/dL T Normal PROT 7.6 LAB L501.1800 3.2-5.0 g/dL Normal ALB 3.4 LAB L501.1950 2.2-4.2 g/dL Normal GLOB 4.2 LAB L501.2000 0.9-2.4 RATIO Low A/G 0.8 LAB L501.2200 8.5-10.1 mg/dL CA Normal 9.2 LAB L501.4100 15-37 U/L High AST 46 LAB L501.4305 45-117 U/L High ALK P 203 LAB L501.4405 16-61 U/L High ALT 83 LAB L501.4600 0.20-1.00 mg/dL T Normal BILI 0.60 LAB L501.5300 136-145 mmol/L NA Normal 144 LAB L501.5600 3.5-5.1 mmol/L K Normal 4.1 LAB L501.5900 98-107 mmol/L CL Normal 105 LAB L501.6100 21.0-32.0 mmol/L Normal CO2 32.0 LAB L501.6200 5-15 Normal GAP 7 Performed By: #### L500.4050, L501.9520 #### [facility] [address] [place], [address] THYROID STIM HORMONE Collected: 11/16/2018 Status: F Source: [facility] (TSH) 8:55 AM [facility] REPOSITORY TYPE CODE TESTS RESULT OUT OF RANGE REFERENCE UNITS LAB L501.9520 0.358-3.74 uIU/mL High TSH 6.45 Performed By: #### L500.4050, L501.9520 #### [facility] [address] 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 Ulcer with muscle layer exposed: Left leg Post-Operative Diagnosis: Ulcer with fat layer exposed: Right heel, right ankle, right leg. Ulcer with muscle layer exposed: Left leg Surgery/Procedure Performed:: Excisional subcutaneous debridement bilateral leg, right ankle, right heel with a versa jet. Application of advanced wound care product, epi cord: Right heel and ankle, left leg. Application of advanced wound care product, amniofill: All sites bilateral lower extremities Description of Surgical Findings:: Hemostasis controlled; no tourniquet Materials: 250 mg amniofill, 3 x 5 cm epi cord, 3-0 nylon, Adaptic Findings: No acute infection. Ulcer measurements include the following: Right heel pre-debridement 2.4 x 5.3 x 0.3 cm and post debridement 2.6 x 5.5 x 0.3 cm, right lateral ankle pre-debridement 2.0 x 1.6 x 0.1 cm and post debridement 2.2 x 1.8 x 0.2 cm, right leg cluster pre-debridement 8 cm x 2.8 cm x 0.2 cm and post debridement 8.2 x 3.0 x 0.2 cm in which 50% was debrided, left leg pre-debridement 2.0 x 2.0 x 1.2 cm with proximal undermining noted and post debridement 2.4 x 3.0 x 1.2 cm (there is peroneal muscle belly noted at this site and it is not necrotic). electrician underground: none Type of Anesthesia:: MAC Specimen's removed: none Estimated Blood Loss (mL): < 40 mL Description of Procedure: Indications: This 83-year-old male with significant past medical history of hypertension, paralysis, and impaired vascular status suffers from ongoing delayed bilateral leg ulcers. He underwent a standard wound care plan including serial debridements, offloading, diet improvement, and advanced wound care product applications in the outpatient setting. He demonstrates recent ulcer site quality improvement after his eschars have been debrided mechanically and with enzymatic debrider, Santyl. He has ongoing delayed healing and does not have any local signs of infection at this time. He has previously been evaluated by vascular surgery who performed an angiogram do not recommend additional intervention. He was cleared by his medical doctor and I reviewed his history and physical exam. His preoperative diagnostic data was also reviewed and he is stable at this time. The preoperative indications, planned procedure, possible benefits, risks, complications, and anticipated healing time management were discussed in detail with patient. He understands complications include but are not limited to the following: Infection, continued delayed or nonhealing, scarring, pain, swelling, need for additional surgery, loss of limb, function, or light, allergic reaction, blood clot. No guarantees were made. Informed surgical consent and surgical limbs were signed. I answered all his questions. This is a planned stage procedure. Procedure in detail: The patient was transported to the operating room via cart and placed on the operating table in the supine position. Final verification was then performed via the timeout procedure including patient, planned procedure, and limb designation. MAC anesthesia was initiated by the anesthesia team. Local anesthesia was not administered due to lack of sensation and paralysis status. Bilateral lower extremities were prepped and draped in the usual aseptic manner and surgery began as the following: Versa jet on setting 8 was used to perform a subcutaneous excisional debridement to all ulcer sites to remove nonviable fibrous tissue, devitalized subcutaneous tissue, biofilm, slough. Pressure was applied to maintain hemostasis and she appeared to have tolerated this well. There was no necrosis, infection, or uncontrolled bleeding noted. The ulcer beds appeared granular with some interspersed fibrous tissue. The pre-and post debridement ulcer sizes are as noted above. The recently debrided ulcer sites were next copiously irrigated with normal saline. Next, the advanced wound healing product, amniofill, was applied copiously to cover all debridement sites; 250 mg was utilized. Additional epi cord was applied and moistened over the right heel, lateral ankle ulcer, and left leg to facilitate wound scaffolding. This was secured in place with nylon Sutures. All of these sites were further secured in place with Adaptic and Steri-Strips and further moistened with a saline gauze. Next, a secondary dressing was additionally applied to bilateral lower extremities including gauze, abdominal pads, Kerlix, and coban. No infection or deep necrosis was noted. No specimens were sent. After procedure: The patient tolerated the procedure and anesthesia well. He was transferred to the PACU with vital signs stable and intact to bilateral lower extremities. His capillary refill time remains brisk to all digits of bilateral foot and there was no pulsatile bleeding noted prior to dressing application. He was advised to elevate for inflammation management. He was advised to keep his dressings clean, dry, and intact until he comes to the wound healing center next Monday. Postoperative orders were entered electronically. He understands this is likely a staged procedure and is part of a comprehensive wound healing plan. He will continue to consider hyperbaric oxygen therapy as an adjunctive treatment. He was advised to continue to keep pressure directly off the sites. Beth Naranjo DPM, [facility] Grafts/Implants Used: mimedx amniofill and epicord 11/10/18 0925 <Electronically signed by Beth Naranjo DPM> Date Beth Naranjo DPM CC: Josette Melendez MD; Beth Naranjo DPM Signed DISCHARGE INSTRUCTION Observed: 11/09/2018 Status: F Source: [place] 12:11 PM [facility] [place] REPOSITORY [facility] Medical Records Department [address] [place] [address] Instructions for Home/Discharge Instructions 11/09/18 1208 MR#: [id number] Acct: [id number] Name: REGINA ROJAS Rep #: [id number] : 1935 83 From: Beth Naranjo DPM PCP: Al PIPER,Josette Status: REG SDC Discharge Diet: No Restrictions Discharge Activity: Return to Normal Activity Keep extremity elevated above heart level: Left Leg, Right Leg Call your doctor if your incision/area has: Continuous Slow Oozing, Sudden Increased Bleeding, Increased Pain/ Swelling, Increased Redness, Foul Smelling Discharge, Swelling at the incision site Call your doctor if you observe: Fever of 101 or Higher, Calf discomfort, Uncontrolled pain Cleanse incision/area with: Keep Dressing Clean AND Dry Allergies/Adverse Reactions: Allergies Cephalosporins Allergy (Intermediate, Verified 11/06/18 08:58) Laryngospasms Penicillins Allergy (Intermediate, Verified 11/06/18 08:58) Rash IVP DYE Allergy (Uncoded 11/06/18 08:58) Rash Medications to take at Discharge Losartan Potassium [Cozaar] 12.5 mg PO DAILY 01/12/16 Riboflavin (Vitamin B2) [Vitamin B2] 300 mg PO DAILY@1700 11/10/16 Ascorbic Acid [Vitamin C] 500 mg PO TID 07/05/18 Gabapentin [Neurontin] 600 mg PO TID 07/05/18 Gully Carbonate 150 mg PO TID 07/05/18 Furosemide [Lasix] 40 mg PO DAILY 08/11/18 Magnesium 500 mg PO BID 08/11/18 Sennosides/Docusate Sodium [Senna-S Laxative Tablet] 2 each PO DAILY 08/11/18 traZODone [Desyrel] 25 mg PO QHS 08/11/18 Collagenase [Santyl] 1 applic TOPICAL DAILY tube 08/14/18 Mineral Oil/Petrolatum,White [Eucerin] 1 applic TOPICAL BID jar 08/14/18 Atorvastatin Calcium [Lipitor] 40 mg PO QHS 11/06/18 Carvedilol [Coreg (Beta Krissy)] 3.125 mg PO BID 11/06/18 Clopidogrel Bisulfate [Plavix] 75 mg PO DAILY 11/06/18 Cyclobenzaprine [Flexeril] 2.5 mg PO QHS PRN 11/06/18 Duloxetine Hcl [Cymbalta] 60 mg PO DAILY 11/06/18 Isosorbide Mononitrate 10 mg PO QHS 11/06/18 Morphine Sulfate [Morphine Sulfate ER] 15 mg PO BID 11/06/18 Multivitamins,Ther W-Minerals [Multivitamin With Minerals] 1 tablet PO DAILY 11/06/18 Nutritional Supplement [Hermelindo - ORANGE FLAVOR] 1 packet PO BIDCM 11/06/18 Pyridoxine HCl [Vitamin B-6] 100 mg PO DAILY 11/06/18 Smz/Tmp Ds [Bactrim Ds] 1 tablet PO DAILY 11/06/18 Tamsulosin HCl [Flomax] 0.4 mg PO 1700 11/06/18 Primary Care Physician: Josette Melendez MD [Primary Care Provider] - Test Results: Test results from this visit will be discussed in further detail at your follow-up appointment, if applicable. Please Follow Up With: Beth Naranjo DPM When: next Monday at wound center. call [phone] sooner if concerns Proposed Discharge Date: 11/09/18 11/09/18 1211 <Electronically signed by Beth Naranjo DPM> Date Beth Naranjo DPM CC: Josette Melendez MD [facility] Observed: 10/30/2018 Status: F Source: [place] CONSULT 2:10 PM [facility] [place] REPOSITORY [facility] [address] [place] [address] [facility] Consult 10/24/18 0835 MR#: [id number] Acct: [id number] Name: REGINA ROJAS Rep #: [id number] : 1935 83 From: Mara CASTANO PCP: Josette Melendez MD Status: DIS RCR Y Location: ADDENDUM by EYAD Belle on 10/30/18 at 1410 Code Visit CPT M866.72 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 12/04/18 1410 <Electronically signed by Mara RAEC> Date Mara BelleC CC: * Signed (1) Osteomyelitis Status: Chronic Current Visit: Yes Code(s): M86.9 - Osteomyelitis, unspecified (2) Ulcer of right foot with fat layer exposed Status: Chronic Current Visit: Yes Code(s): L97.512 - Non-pressure chronic ulcer of other part of right foot with fat layer exposed (3) Chronic ulcer of left foot with fat layer exposed Status: Resolved Current Visit: Yes Code(s): L97.522 - Non-pressure chronic ulcer of other part of left foot with fat layer exposed (4) Ulcer of left lower extremity with fat layer exposed Status: Chronic Current Visit: Yes Code(s): L97.922 - Non-pressure chronic ulcer of unspecified part of left lower leg with fat layer exposed (5) Ulcer of right lower extremity with fat layer exposed Status: Chronic Current Visit: Yes Code(s): L97.912 - Non-pressure chronic ulcer of unspecified part of right lower leg with fat layer exposed (6) Other specified peripheral vascular diseases Status: Chronic Current Visit: Yes Code(s): I73.89 - Other specified peripheral vascular diseases (7) Malnutrition Status: Chronic Current Visit: Yes Code(s): E46 - Unspecified protein-calorie malnutrition (8) Delayed wound healing Status: Chronic Current Visit: Yes Code(s): T14.8XXD - Other injury of unspecified body region, subsequent encounter (9) Edema leg Status: Chronic Current Visit: Yes Code(s): R60.0 - Localized edema (10) Paralysis Status: Acute Current Visit: Yes Code(s): G83.9 - Paralytic syndrome, unspecified (11) Paralysis Status: Chronic Current Visit: Yes Code(s): G83.9 - Paralytic syndrome, unspecified (12) Paraplegia Status: Chronic Current Visit: Yes Code(s): G82.20 - Paraplegia, unspecified Comment: due to transverse myelitis History of Present Illness Date of Service: 10/23/18 Presenting Chief Complaint: 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 MRI Left Ankle on 08/12/18 Mild marrow edema of the calcaneus and lateral malleolus with osteomyelitis versus stress injury. Completed a 6 week course of IV antibiotics for Osteomyelitis 09/22/18. Was being followed by infectious disease. Past Medical History Chronic Problems (Last Reviewed 08/13/18 @ 10:19 by Fernando Patterson MD) Ulcer of right foot with fat layer exposed (Chronic) Other specified peripheral vascular diseases (Chronic) Unstageable pressure ulcer of left foot (Chronic) Unstageable pressure ulcer of right foot (Chronic) Ulcer of left lower extremity with fat layer exposed (Chronic) Malnutrition (Chronic) Delayed wound healing (Chronic) Edema leg (Chronic) Paralysis (Chronic) Ulcer of right lower extremity with fat layer exposed (Chronic) Osteomyelitis (Chronic) Chronic pain (Chronic) Nocardia infection (Chronic) 2004, right arm and left leg, 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 Allergies/Adverse Reactions: Allergies Cephalosporins Allergy (Intermediate, Verified 08/10/18 20:29) Laryngospasms Penicillins Allergy (Intermediate, Verified 08/10/18 20:29) Rash IVP DYE Allergy (Uncoded 07/05/18 10:04) Rash Home Medications: Ambulatory Orders Medication Instructions Recorded Multivitamins,Ther W-Minerals 1 tab PO DAILY@1700 #30 tab 09/18/14 [Multivitamin With Minerals] Maternal Family History: - - , depression Paternal Family History: - - Offspring Family History: - - 2 children, 4 grand children, 1 great grandchild, all in good health Smoking Status: Never smoker Review of Systems Constitutional: Denies: Anorexia, Chills, Fever Eyes: Denies: Pain, Vision Change HEENT: Denies: Difficulty Hearing, Difficulty Swallowing, Sinus Congestion Cardiovascular: Reports: Edema. Denies: Chest Pain Respiratory: Denies: Cough, Shortness of Breath Gastrointestinal: Denies: Abdominal Pain Skin: Reports: Wounds - 7 different opened wounds Neurological: Reports: Headaches, - - paralyzed, in a wheel chair, - - Shunt is in place - Physical Exam Vital Signs Temp Pulse Resp BP 97.1 F L 71 16 131/70 H 10/17/18 11:17 10/17/18 11:17 10/17/18 11:17 10/17/18 11:17 General: Alert, Oriented x3, Cooperative HEENT: PERRLA, TM's Clear Oral: Moist Mucosa Lungs: Clear to auscultation, Normal air movement, No rhonchi, No wheeze Cardiovascular: Regular rate, Regular Rhythm Abdomen: Bowel Sounds Present, Soft Extremities: Diminished Peripheral Pulses, Edema Skin: Ulcer/ Wound - Ulcers bilateral heel, right lateral ankle ulcer, left posterior LE, Left anterior foot, right lateral LE Wound Measurements and Assessment WC - Nurse 2 - General Ulcer CM Notes Start: 10/03/18 14:00 Freq: Status: Active Protocol: Activity Type Activity Date Activity User E-Sign Co-Sign Detail Recorded Client Recorded Date Recorded By Document 10/23/18 14:57 [id number] 10/23/18 14:59 Musculoskeletal: No Tenderness to Palpation of Joints or Extremities, Muscle Wasting Neurological: Cranial nerves II-XII grossly intact Psych/Mental Status: Normal Affect, Appropriate Assessment/Plan Active Problems (Last Reviewed 08/13/18 @ 10:19 by Fernando Patterson MD) Ulcer of right foot with fat layer exposed (Chronic) Paralysis (Acute) Non-pressure chronic ulcer of other part of left foot with fat layer exposed (Acute) Non-pressure chronic ulcer of other part of right foot with fat layer exposed (Acute) Other specified peripheral vascular diseases (Chronic) Ulcer of left lower extremity with fat layer exposed (Chronic) Malnutrition (Chronic) Delayed wound healing (Chronic) Edema leg (Chronic) Paralysis (Chronic) Ulcer of right lower extremity with fat layer exposed (Chronic) Osteomyelitis (Chronic) 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 Hyperbaric Oxygen Therapy would be an essential adjunct in the resolution and treatment of this patient's presenting problem. This patient has sufficient physiologic and psychological stamina to undergo the rigors of hyperbaric oxygen therapy. As such, I recommend the following: Hyperbaric Oxygen Treatments at 2.0 RAGHAV in 100% Oxygen for 90 minutes per treatment, for [] treatments. I have discussed the possible benefits of hyperbaric oxygen therapy with this patient. I have also presented and described the risks, including: air gas embolism, pneumothorax, central nervous system and pulmonary oxygen toxicity, flash pulmonary edema, hypoglycemia, reversible visual refractive changes, ear and sinus ericka-trauma, and confinement anxiety. The patient has verbalized understanding of these risks, and is still wanting to undergo hyperbaric oxygen therapy. The patient understands the significant time and transportation commitment involved in daily treatments of up to two hours duration and has stated that they are willing to commit to this therapy. - HBOT Diagnosis Chronic Refractory Osteomyelitis (730.1) Acute Osteomyelitis (730.05) Code Visit Office Visits / Consults: [id number] OV L4 New 10/24/18 1509 <Electronically signed by Mara CASTANO> Date Mara CASTANO CC: Signed NECK FOR SOFT Observed: 10/15/2018 Status: F Source: [place] TISSUE 4:47 PM [facility] [place] REPOSITORY [facility] Imaging Services [address] [place] [address] Neck for Soft Tissue MR#: [id number] Acct: [id number] Name: REGINA ROJAS Rep #: [id number] : 1935 M 83 From: Tima Lind MD PCP: Josette Melendez MD Status: REG CLI Study: Neck for Soft Tissue Date of Exam: 10/15/18 Exam# [id number] Ordering Dr: Josette Melendez MD STUDY: X-RAY - SOFT TISSUE NECK REASON FOR EXAM: Male, 83 years old. Patient noting nodules along shunt mid right neck. TECHNIQUE: 2 view(s) of the neck were obtained. COMPARISON: None. FINDINGS: Normal visualized nasopharynx, oropharynx, hypopharynx. Normal epiglottis. Normal visualized subglottic tracheal air column. Normal prevertebral soft tissue structures. There are mild degenerative changes of the cervical spine. 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 There is mildly irregular calcification along the cervical and upper thoracic aspect of the catheter. Still note of mild bilateral carotid artery calcifications. RAD/Neck for Soft Tissue IMPRESSION: 1. Calcification along the cervical and upper thoracic portions of a shallow, indwelling ventriculoperitoneal catheter, which likely accounts for the palpable nodules. 2. Incidental note of bilateral carotid atherosclerotic calcific plaquing. Electronically Signed: Oneal Lind MD at 19:55 EST , Service support , CC: Josette Melendez MD Cotton Seed Culler: Signed FOOT MIN 3 VIEWS Observed: 10/15/2018 Status: F Source: [place] 3:16 PM [facility] [place] REPOSITORY [facility] Imaging Services [address] [place] [address] Foot min 3 Views MR#: [id number] Acct: [id number] Name: REGINA ROJAS Rep #: [id number] : 1935 83 From: Maliha Pollard MD PCP: Josette Melendez MD Status: REG CLI Study: Foot min 3 Views Date of Exam: 10/15/18 Exam# [id number] Ordering Dr: Beth Naranjo DPM STUDY: X-RAY - RIGHT FOOT CLINICAL: Male, 83 years old. Open wound with infection healed right foot. TECHNIQUE: 3 view(s) of the foot. Superimposed circular wrapping. COMPARISON: 08/11/2018. FINDINGS: There is generalized osteoporosis. There is a plantar calcaneal spur and enthesophyte. Minimal lucent soft tissue along the posterior calcaneus. The adjacent cortex appears intact. There is a superimposed splint.. Normal visualized subtalar, talonavicular, calcaneocuboid, tarsal and tarsometatarsal articulations. Normal metatarsi. Normal metatarsophalangeal joint of the great toe. Normal tibial and fibular sesamoid bones. Normal interphalangeal joint of the great toe. Normal phalanges of the great toe. Normal second through fifth metatarsophalangeal joints. Normal interphalangeal joints and phalanges of the lesser toes. There is atherosclerosis. Unspecific soft tissue prominence along the forefoot. RAD/Foot min 3 Views IMPRESSION: Osteoporosis and degenerative changes, arteriosclerosis, soft tissue swelling. Possible small ulceration posterior calcaneus. No radiographic sign of osteomyelitis. Electronically Signed: Maliha Pollard MD at 7:29 EST , Service support , CC: Josette Melendez MD; Beth Naranjo DPM Cotton Seed Culler: Signed ANKLE MIN 3 VIEWS Observed: 10/15/2018 Status: F Source: [place] 3:16 PM [facility] REPOSITORY [facility] Imaging Services [address] [place] [address] Ankle min 3 Views MR#: [id number] Acct: [id number] Name: REGINA ROJAS Rep #: [id number] : 1935 M 83 From: Maliha Pollard MD PCP: Josette Melendez MD Status: REG CLI Study: Ankle min 3 Views Date of Exam: 10/15/18 Exam# [id number] Ordering Dr: Beth Naranjo DPM STUDY: X-RAY - RIGHT ANKLE REASON FOR EXAM: Male, 83 years old. Open wound with infection of healing of right foot. TECHNIQUE: 3 view(s) of the ankle. COMPARISON: None. FINDINGS: There is generalized osteoporosis. Normal visualized distal tibia and fibula. Normal medial and lateral malleoli. Normal tibiotalar articulation and ankle mortise. Normal visualized talus and small plantar calcaneal spur and enthesophyte. The visualized subtalar, talonavicular, calcaneocuboid and tarsal articulations are normal. Small area of soft tissue lucency along the posterior calcaneus. There is atherosclerosis. There is generalized soft tissue swelling. RAD/Ankle min 3 Views IMPRESSION: Osteoporosis with generalized soft tissue swelling and arteriosclerosis. Soft tissue lucency possible ulceration posterior calcaneus. No osteomyelitis detected. Electronically Signed: Maliha Pollard MD at 7:31 EST , Service support , CC: Josette Melendez MD; Beth Naranjo DPM Cotton Seed Culler: Signed COMPREHENSIVE METABOLIC Collected: 10/15/2018 Status: F Source: [place] 3:15 PM [facility] REPOSITORY TYPE CODE TESTS RESULT OUT OF RANGE REFERENCE UNITS LAB L501.0100 74-106 mg/dL High GLU 117 Result Comment: Fasting Glucose result from 100 to 125 mg/dL suggests IMPAIRED HOMEOSTASIS per A.D.A. criteria. Please note revised GLUCOSE reference range effective 2017. LAB L501.1000 7-18 mg/dL High BUN 36 LAB L501.1100 0.70-1.30 mg/dL Normal CREAT,SERUM 0.86 Result Comment: The validity of the calculated GFR AND GFRAA in patients over 70 years has not been determined. Clinical correlation is essential. LAB L501.1110 >60 mL/min Normal EST GFR 91 Result Comment: Non- GFR Calc LAB L501.1115 >60 mL/min Normal EST GFR - AA 110 Result Comment: GFR Calc LAB L501.1300 10-20 RATIO High BUN/CRE 41.8 LAB L501.1500 6.4-8.2 g/dL T Normal PROT 7.0 LAB L501.1800 3.2-5.0 g/dL Low ALB 2.9 LAB L501.1950 2.2-4.2 g/dL Normal GLOB 4.1 LAB L501.2000 0.9-2.4 RATIO Low A/G 0.7 LAB L501.2200 8.5-10.1 mg/dL CA Normal 8.6 LAB L501.4100 15-37 U/L High AST 96 LAB L501.4305 45-117 U/L High ALK P 212 LAB L501.4405 16-61 U/L High ALT 109 LAB L501.4600 0.20-1.00 mg/dL T Normal BILI 0.30 LAB L501.5300 136-145 mmol/L NA Normal 142 LAB L501.5600 3.5-5.1 mmol/L K Normal 4.7 LAB L501.5900 98-107 mmol/L CL Normal 103 LAB L501.6100 21.0-32.0 mmol/L High CO2 33.0 LAB L501.6200 5-15 Normal GAP 6 Performed By: #### L500.4050, L501.6710 #### [facility] [address] [place], [place], [address] CRP Collected: 10/15/2018 Status: F Source: [place] 3:15 PM [facility] REPOSITORY TYPE CODE TESTS RESULT OUT OF RANGE REFERENCE UNITS LAB L501.6710 0.0-3.0 mg/L High 27.50 C-REACTIVE PROT Result Comment: C-Reactive Protein (CRP) provides useful information for the diagnosis, therapy and monitoring of inflammatory processes and associated diseases. For the evaluation of Relative Risk for Cardiovascular Disease, a High Sensitivity CRP (HSCRP) should be ordered. Performed By: #### L500.4050, L501.6710 #### [facility] [address] [place], [place], [address] CBC W/DIFF, AUTOMATED Collected: 10/15/2018 Status: F Source: [place] 3:15 PM [facility] REPOSITORY TYPE CODE TESTS RESULT OUT OF RANGE REFERENCE UNITS LAB L100.1000 4.4-11.0 K/mm3 Normal WBC 6.0 LAB L100.1200 4.6-6.2 M/mm3 Low RBC 3.85 LAB L100.1300 13.0-16.5 g/dl Low HGB 11.8 LAB L100.1400 40-54 % Low HCT 37.5 LAB L100.1500 80-94 fL High MCV 97.4 LAB L100.1600 27.0-32.0 pg Normal MCH 30.6 LAB L100.1700 32-36 g/gl Low MCHC 31.5 LAB L100.1810 11.6-14.6 % Normal RDW CV 13.2 LAB L100.1820 35.1-43.9 fl High RDW SD 45.8 LAB L100.1900 150-450 K/mm3 Normal PLT 204 LAB L100.2000 6.2-12.0 fl Normal MPV 10.0 LAB L100.2100 47-70 % Normal NEUT% 65.7 LAB L100.2200 19-41 % Normal LY% 22.9 LAB L100.2300 0-10 % Normal MONO% 6.1 LAB L100.2400 0-5 % Normal EO% 4.8 LAB L100.2500 0-1 % Normal BASO% 0.3 LAB L100.2550 0.0-0.9 % Normal IM GRAN % 0.200 Result Comment: IG% - Immature Granulocytes (promyelocytes, myelocytes and metamyelocytes) > 1% indicates that a LEFT SHIFT is Present. LAB L100.2620 2.0-7.7 X10 3/uL Normal Absolute Neut 4.0 LAB L100.2720 0.83-4.51 X10 3/ul Normal Absolute Lymph 1.38 Performed By: #### L100.0100, L101.9900 #### [facility] [address] [place], [address] ERYTHROCYTE SED RATE Collected: 10/15/2018 Status: F Source: [place] 3:15 PM [facility] REPOSITORY TYPE CODE TESTS RESULT OUT OF RANGE REFERENCE UNITS LAB L102.0000 0-20 mm/hr Normal SED RATE 14 Performed By: #### L100.0100, L101.9900 #### [facility] [address] [place], [address] IR ARTERIOGRAM Observed: 2018 Status: F Source: [place] EXTREMITY LOWER RIGHT 2:00 PM [facility] REPOSITORY ORIGINAL Images acquired, not reported on this accession number. CBC Collected: 2018 Status: F Source: [facility] 11:53 AM [facility] REPOSITORY TYPE CODE TESTS RESULT OUT OF REFERENCE UNITS RANGE LAB WBC(LOINC) 4.50-10.80 10 3/mcL WBC 5.00 LAB RBCCT(LOINC 4.50-6.00 10 6/mcL ) Low RBC 4.32 LAB HGB(LOINC) 13.0-17.5 G/dL Hgb 13.2 LAB HCT(LOINC) 40.0-52.0 % Hct 40.4 LAB MCV(LOINC) 81.0-100.0 fL MCV 93.4 LAB MCH(LOINC) 27.0-33.0 pg MCH 30.6 LAB MCHC(LOINC) 32.0-36.0 G/dL MCHC 32.7 LAB RDW(LOINC) 11.5-15.5 % RDW 13.3 LAB PLT(LOINC) 150-450 10 3/mcL Platelet 191 LAB MPV(LOINC) 6.4-10.5 fL MPV 7.8 Performed By: #### CBC, ADIFF, ANEU, RFP, GFR #### [place] [address] .AUTO DIFF Collected: 2018 Status: F Source: [facility] 11:53 AM [facility] REPOSITORY TYPE CODE TESTS RESULT OUT OF REFERENCE UNITS RANGE LAB MO(LOINC) 50.0-75.0 % High Neutrophil % 84.4 LAB LYM(LOINC) 20.0-40.0 % Low Lymphocyte % 14.8 LAB MON(LOINC) 2.0-13.0 % Low Monocyte % 0.7 LAB EO(LOINC) 0.0-6.0 % Eosinophil % 0.0 LAB BAS(LOINC) 0.0-2.5 % Basophil % 0.1 LAB ABLYM(LOIN 0.90-4.32 10 3/mcL C) Low Lymphocyte, 0.70 Absolute LAB NARA(LOINC 0.09-1.40 10 3/mcL ) Low Monocyte, 0.00 Absolute LAB AEOS(LOINC 0.00-0.65 10 3/mcL ) Eosinophil, 0.00 Absolute LAB ABAS(LOINC 0.00-0.27 10 3/mcL ) Basophil, 0.00 Absolute Performed By: #### CBC, ADIFF, ANEU, RFP, GFR #### [place] [address] .NEUABS Collected: 2018 Status: F Source: [facility] 11:53 AM [facility] REPOSITORY TYPE CODE TESTS RESULT OUT OF REFERENCE UNITS RANGE LAB ANEU(LOINC) 2.25-8.10 10 3/mcL Neutrophil, 4.20 Absolute Performed By: #### CBC, ADIFF, ANEU, RFP, GFR #### [place] [address] RFP Collected: 2018 Status: F Source: [facility] 11:53 AM [facility] REPOSITORY TYPE CODE TESTS RESULT OUT OF REFERENCE UNITS RANGE LAB GLU(LOINC) 82-115 mg/dL Glucose High Level 155 LAB NA(LOINC) 136-145 mEq/L Sodium Level 144 LAB K(LOINC) 3.5-5.0 mEq/L Potassium Level 3.9 LAB CL(LOINC) 98-110 mEq/L Chloride 106 LAB CO2(LOINC) 22-32 mEq/L CO2 31 LAB EBAL(LOINC 4.0-15.0 mEq/L ) Electrolyte Balance 7.0 LAB BUN(LOINC) 8.0-22.0 mg/dL BUN High 26.0 LAB CRE(LOINC) 0.60-1.40 mg/dL Creatinine Lvl (s) 0.64 LAB BC(LOINC) 10.0-22.0 ratio High BUN/Creatinine 40.6 Ratio LAB CA(LOINC) 8.4-10.1 mg/dL Calcium Lvl 8.4 LAB PHOS(LOINC 2.5-4.5 mg/dL ) Phosphorus 3.8 LAB ALB(LOINC) 3.2-4.8 G/dL Low Albumin Level 3.1 Performed By: #### CBC, ADIFF, ANEU, RFP, GFR #### [place] [address] .GFR Collected: 2018 Status: F Source: [facility] 11:53 AM [facility] REPOSITORY TYPE CODE TESTS RESULT OUT OF REFERENCE UNITS RANGE LAB GFRAA(LOINC ml/min/1.73 ) sqm GFR >60 Vietnamese Result Comment: GFR Population mean for , Non- Americans Ages 20-29 = 116 mL/min/1.73 sq.m. Ages 30-39 = 107 mL/min/1.73 sq.m. Ages 40-49 = 99 mL/min/1.73 sq.m. Ages 50-59 = 93 mL/min/1.73 sq.m. Ages 60-69 = 85 mL/min/1.73 sq.m. Ages 70+ = 75 mL/min/1.73 sq.m. Chronic Kidney Disease: Less than 60 mL/min/1.73 square meters End Stage Renal Disease: Less than 15 mL/min/1.73 square meters LAB GFRNO(LOINC) ml/min/1.73sqm GFR Non- >60 Result Comment: GFR Population mean for , Non- Americans Ages 20-29 = 116 mL/min/1.73 sq.m. Ages 30-39 = 107 mL/min/1.73 sq.m. Ages 40-49 = 99 mL/min/1.73 sq.m. Ages 50-59 = 93 mL/min/1.73 sq.m. Ages 60-69 = 85 mL/min/1.73 sq.m. Ages 70+ = 75 mL/min/1.73 sq.m. Chronic Kidney Disease: Less than 60 mL/min/1.73 square meters End Stage Renal Disease: Less than 15 mL/min/1.73 square meters Performed By: #### CBC, ADIFF, ANEU, RFP, GFR #### [place] [address] Observed: 09/26/2018 Status: F Source: [place] CULTURE, DEEP WOUND 2:15 PM [facility] REPOSITORY Comments: L LATERAL L E ULCER Gram Stain Gram Stain Rare Epithelial cells No organisms seen Wound Culture ORGANISM 1: Pseudomonas aeroginosa Amount Growth 1+ ORGANISM 2: Staphylococcus epidermidis Amount Growth 3+ ORGANISM 3: Presumptive C albicans Amount Growth 1+ Pseudomonas aeroginosa: REACTION Cefepime $ 4 S Ceftazidime *NF 4 S Ciprofloxacin $ 0.5 S Gentamicin $ <=1 S Imipenem *NF >=16 R Levofloxacin $ 4 I Piperacillin/Tazobactam $$ 8 S Tobramycin $ <=1 S (NF) indicates non-formulary drug at [facility]. Approval by Infectious Disease Specialist required before non-formulary drugs may be ordered and/or dispensed. Staphylococcus epidermidis: REACTION Benzylpenicillin NF >=0.5 R Cefoxitin *NF + Clindamycin $$ <=0.25 R Inducable Clindamycin [place] + Erythromycin $ >=8 R Gentamicin $ <=0.5 S Levofloxacin $ >=8 R Linezolid $$$$ 1 S Oxacillin NF >=4 R Tigecycline $$$$ 0.5 S Rifampin $$ <=0.5 S Tetracycline NF >=16 R Vancomycin $ 1 S (NF) indicates non-formulary drug at [facility]. Approval by Infectious Disease Specialist required before non-formulary drugs may be ordered and/or dispensed. * CLSI guidelines does not recommend testing of cephalosporins. This interpretation is deduced from Beta-lactam/penicillin results. Cult, Anaerobic No anaerobic bacteria isolated. Performed By: #### M100.1500 #### [facility] [address] [place], [place], [address] BASIC METABOLIC Collected: 09/21/2018 Status: F Source: [facility] PROFILE ([facility]) 5:45 AM [facility] REPOSITORY Order Comment: 416 TYPE CODE TESTS RESULT OUT OF RANGE REFERENCE UNITS LAB L501.0100 74-106 mg/dL Normal GLU 92 Result Comment: Please note revised GLUCOSE reference range effective 2017. LAB L501.1000 7-18 mg/dL High BUN 31 LAB L501.1100 0.70-1.30 mg/dL Normal CREAT,SERUM 0.71 Result Comment: The validity of the calculated GFR AND GFRAA in patients over 70 years has not been determined. Clinical correlation is essential. LAB L501.1110 >60 mL/min Normal EST GFR 113 Result Comment: Non- GFR Calc LAB L501.1115 >60 mL/min Normal EST GFR - AA 137 Result Comment: GFR Calc LAB L501.1300 10-20 RATIO High BUN/CRE 43.7 LAB L501.2200 8.5-10.1 mg/dL CA Normal 9.0 LAB L501.5300 136-145 mmol/L High NA 146 LAB L501.5600 3.5-5.1 mmol/L K Normal 3.6 LAB L501.5900 98-107 mmol/L CL Normal 107 LAB L501.6100 21.0-32.0 mmol/L High CO2 34.0 LAB L501.6200 5-15 Normal GAP 5 Performed By: #### L500.2500, L500.3400 #### [facility] [address], [place], [id number] LIVER PROFILE Collected: 09/21/2018 Status: F Source: [place] 5:45 AM [facility] REPOSITORY Order Comment: 416 TYPE CODE TESTS RESULT OUT OF RANGE REFERENCE UNITS LAB L501.1500 6.4-8.2 g/dL Normal T PROT 6.9 LAB L501.1800 3.2-5.0 g/dL Low ALB 2.8 LAB L501.1950 2.2-4.2 g/dL Normal GLOB 4.1 LAB L501.4100 15-37 U/L High AST 91 LAB L501.4305 45-117 U/L High ALK P 369 LAB L501.4405 16-61 U/L High ALT 135 LAB L501.4600 0.20-1.00 mg/dL Normal T BILI 0.90 LAB L501.4700 0.00-0.30 mg/dL Normal D BILI 0.25 Performed By: #### L500.2500, L500.3400 #### [facility] [address], [place], [id number] CBC W/DIFF, AUTOMATED Collected: 09/21/2018 Status: F Source: [place] 5:45 AM [facility] REPOSITORY Order Comment: 416 TYPE CODE TESTS RESULT OUT OF RANGE REFERENCE UNITS LAB L100.1000 4.4-11.0 K/mm3 Normal WBC 5.7 LAB L100.1200 4.6-6.2 M/mm3 Low RBC 3.77 LAB L100.1300 13.0-16.5 g/dl Low HGB 11.8 LAB L100.1400 40-54 % Low HCT 36.8 LAB L100.1500 80-94 fL High MCV 97.6 LAB L100.1600 27.0-32.0 pg Normal MCH 31.3 LAB L100.1700 32-36 g/gl Normal MCHC 32.1 LAB L100.1810 11.6-14.6 % Normal RDW CV 12.7 LAB L100.1820 35.1-43.9 fl High RDW SD 44.0 LAB L100.1900 150-450 K/mm3 Normal PLT 171 LAB L100.2000 6.2-12.0 fl Normal MPV 9.9 LAB L100.2100 47-70 % Normal NEUT% 57.3 LAB L100.2200 19-41 % Normal LY% 28.2 LAB L100.2300 0-10 % Normal MONO% 8.9 LAB L100.2400 0-5 % Normal EO% 4.9 LAB L100.2500 0-1 % Normal BASO% 0.5 LAB L100.2550 0.0-0.9 % Normal IM GRAN % 0.200 Result Comment: IG% - Immature Granulocytes (promyelocytes, myelocytes and metamyelocytes) > 1% indicates that a LEFT SHIFT is Present. LAB L100.2620 2.0-7.7 X10 3/uL Normal Absolute Neut 3.3 LAB L100.2720 0.83-4.51 X10 3/ul Normal Absolute Lymph 1.62 Performed By: #### L100.0100, L101.9900 #### [facility] [address], [place], [address] ERYTHROCYTE SED RATE Collected: 09/21/2018 Status: F Source: [place] 5:45 AM [facility] REPOSITORY Order Comment: 416 TYPE CODE TESTS RESULT OUT OF RANGE REFERENCE UNITS LAB L102.0000 0-20 mm/hr High SED RATE 27 Performed By: #### L100.0100, L101.9900 #### [facility] [address], [place], [address] Observed: 09/18/2018 Status: F Source: [place] CULTURE, WOUND 12:00 AM [facility] REPOSITORY Gram Stain Gram Stain Rare White Blood Cells 1+ Yeast Like Organisms Wound Culture ORGANISM 1: Pseudomonas aeroginosa Amount Growth Rare ORGANISM 2: Enterococcus faecalis Amount Growth 3+ ORGANISM 3: Rena albicans Amount Growth 2+ Pseudomonas aeroginosa: REACTION Cefepime $ 4 S Ceftazidime *NF 4 S Ciprofloxacin $ 1 S Gentamicin $ <=1 S Imipenem *NF >=16 R Levofloxacin $ 2 S Piperacillin/Tazobactam $$ 16 S Tobramycin $ <=1 S (NF) indicates non-formulary drug at [facility]. Approval by Infectious Disease Specialist required before non-formulary drugs may be ordered and/or dispensed. Enterococcus faecalis: REACTION Ampicillin $ <=2 S Benzylpenicillin NF 4 S Gentamicin SYN-R R Linezolid $$$$ 2 S Tigecycline $$$$ <=0.12 S Streptomycin $ SYN-S S Vancomycin $ 2 S (NF) indicates non-formulary drug at [facility]. Approval by Infectious Disease Specialist required before non-formulary drugs may be ordered and/or dispensed. * CLSI guidelines does not recommend testing of cephalosporins. This interpretation is deduced from Beta-lactam/penicillin results. Performed By: #### M100.1400 #### [facility] [address] [facility] [place], [address] ERYTHROCYTE SED RATE Collected: 09/14/2018 Status: F Source: [place] 5:15 AM [facility] REPOSITORY Order Comment: RM 416 TYPE CODE TESTS RESULT OUT OF RANGE REFERENCE UNITS LAB L102.0000 0-20 mm/hr High SED RATE 24 Performed By: #### L101.9900, L100.0100 #### [facility] [address] [facility] [place], [address] CBC W/DIFF, AUTOMATED Collected: 09/14/2018 Status: F Source: [place] 5:15 AM [facility] REPOSITORY Order Comment: RM 416 TYPE CODE TESTS RESULT OUT OF RANGE REFERENCE UNITS LAB L100.1000 4.4-11.0 K/mm3 Normal WBC 7.3 LAB L100.1200 4.6-6.2 M/mm3 Low RBC 3.58 LAB L100.1300 13.0-16.5 g/dl Low HGB 11.3 LAB L100.1400 40-54 % Low HCT 35.3 LAB L100.1500 80-94 fL High MCV 98.6 LAB L100.1600 27.0-32.0 pg Normal MCH 31.6 LAB L100.1700 32-36 g/gl Normal MCHC 32.0 LAB L100.1810 11.6-14.6 % Normal RDW CV 12.9 LAB L100.1820 35.1-43.9 fl High RDW SD 45.1 LAB L100.1900 150-450 K/mm3 Normal PLT 165 LAB L100.2000 6.2-12.0 fl Normal MPV 10.1 LAB L100.2100 47-70 % Normal NEUT% 68.3 LAB L100.2200 19-41 % Normal LY% 21.8 LAB L100.2300 0-10 % Normal MONO% 6.6 LAB L100.2400 0-5 % Normal EO% 2.9 LAB L100.2500 0-1 % Normal BASO% 0.3 LAB L100.2550 0.0-0.9 % Normal IM GRAN % 0.100 Result Comment: IG% - Immature Granulocytes (promyelocytes, myelocytes and metamyelocytes) > 1% indicates that a LEFT SHIFT is Present. LAB L100.2620 2.0-7.7 X10 3/uL Normal Absolute Neut 5.0 LAB L100.2720 0.83-4.51 X10 3/ul Normal Absolute Lymph 1.59 Performed By: #### L101.9900, L100.0100 #### [facility] [address] [place], [address] BASIC METABOLIC Collected: 09/14/2018 Status: F Source: [place] PROFILE ([facility]) 5:15 AM [facility] REPOSITORY Order Comment: 416 TYPE CODE TESTS RESULT OUT OF RANGE REFERENCE UNITS LAB L501.0100 74-106 mg/dL Normal GLU 97 Result Comment: Please note revised GLUCOSE reference range effective 2017. LAB L501.1000 7-18 mg/dL High BUN 28 LAB L501.1100 0.70-1.30 mg/dL Low CREAT,SERUM 0.60 Result Comment: The validity of the calculated GFR AND GFRAA in patients over 70 years has not been determined. Clinical correlation is essential. LAB L501.1110 >60 mL/min Normal EST GFR 138 Result Comment: Non- GFR Calc LAB L501.1115 >60 mL/min Normal EST GFR - AA 167 Result Comment: GFR Calc LAB L501.1300 10-20 RATIO High BUN/CRE 46.9 LAB L501.2200 8.5-10.1 mg/dL CA Normal 8.5 LAB L501.5300 136-145 mmol/L NA Normal 144 LAB L501.5600 3.5-5.1 mmol/L K Normal 3.5 LAB L501.5900 98-107 mmol/L CL Normal 107 LAB L501.6100 21.0-32.0 mmol/L Normal CO2 32.0 LAB L501.6200 5-15 Normal GAP 5 Performed By: #### L500.2500, L500.3400 #### [facility] [address], [place], [id number] LIVER PROFILE Collected: 09/14/2018 Status: F Source: [place] 5:15 AM [facility] REPOSITORY Order Comment: RM 416 TYPE CODE TESTS RESULT OUT OF RANGE REFERENCE UNITS LAB L501.1500 6.4-8.2 g/dL Low T PROT 6.3 LAB L501.1800 3.2-5.0 g/dL Low ALB 2.6 LAB L501.1950 2.2-4.2 g/dL Normal GLOB 3.7 LAB L501.4100 15-37 U/L High AST 53 LAB L501.4305 45-117 U/L High ALK P 262 LAB L501.4405 16-61 U/L High ALT 89 LAB L501.4600 0.20-1.00 mg/dL Normal T BILI 0.60 LAB L501.4700 0.00-0.30 mg/dL Normal D BILI 0.18 Performed By: #### L500.2500, L500.3400 #### [facility] [address] [facility] [place], [place], [id number] Observed: 09/09/2018 Status: F Source: [place] CULTURE, URINE 4:45 PM [facility] REPOSITORY Urine Culture Culture exhibits no growth. Performed By: #### M100.0650 #### [facility] [address] [facility] [place], [place], [id number] ERYTHROCYTE SED RATE Collected: 09/07/2018 Status: F Source: [place] 6:00 AM [facility] REPOSITORY Order Comment: 416 TYPE CODE TESTS RESULT OUT OF RANGE REFERENCE UNITS LAB L102.0000 0-20 mm/hr High SED RATE 39 Performed By: #### L101.9900, L100.0100 #### [facility] [address] [place], [place], [address] CBC W/DIFF, AUTOMATED Collected: 09/07/2018 Status: F Source: [place] 6:00 AM [facility] REPOSITORY Order Comment: 416 TYPE CODE TESTS RESULT OUT OF RANGE REFERENCE UNITS LAB L100.1000 4.4-11.0 K/mm3 Normal WBC 5.8 LAB L100.1200 4.6-6.2 M/mm3 Low RBC 3.87 LAB L100.1300 13.0-16.5 g/dl Low HGB 11.9 LAB L100.1400 40-54 % Low HCT 37.7 LAB L100.1500 80-94 fL High MCV 97.4 LAB L100.1600 27.0-32.0 pg Normal MCH 30.7 LAB L100.1700 32-36 g/gl Low MCHC 31.6 LAB L100.1810 11.6-14.6 % Normal RDW CV 13.1 LAB L100.1820 35.1-43.9 fl High RDW SD 46.4 LAB L100.1900 150-450 K/mm3 Normal PLT 181 LAB L100.2000 6.2-12.0 fl Normal MPV 9.8 LAB L100.2100 47-70 % Normal NEUT% 57.3 LAB L100.2200 19-41 % Normal LY% 27.7 LAB L100.2300 0-10 % Normal MONO% 8.0 LAB L100.2400 0-5 % High EO% 6.5 LAB L100.2500 0-1 % Normal BASO% 0.5 LAB L100.2550 0.0-0.9 % Normal IM GRAN % 0.000 Result Comment: IG% - Immature Granulocytes (promyelocytes, myelocytes and metamyelocytes) > 1% indicates that a LEFT SHIFT is Present. LAB L100.2620 2.0-7.7 X10 3/uL Normal Absolute Neut 3.3 LAB L100.2720 0.83-4.51 X10 3/ul Normal Absolute Lymph 1.62 Performed By: #### L101.9900, L100.0100 #### [facility] [address] [place], [place], [id number] BASIC METABOLIC Collected: 09/07/2018 Status: F Source: [place] PROFILE ([place]) 6:00 AM [facility] REPOSITORY Order Comment: 416 TYPE CODE TESTS RESULT OUT OF RANGE REFERENCE UNITS LAB L501.0100 74-106 mg/dL Normal GLU 100 Result Comment: Fasting Glucose result from 100 to 125 mg/dL suggests IMPAIRED HOMEOSTASIS per A.D.A. criteria. Please note revised GLUCOSE reference range effective 2017. LAB L501.1000 7-18 mg/dL High BUN 29 LAB L501.1100 0.70-1.30 mg/dL Low CREAT,SERUM 0.62 Result Comment: The validity of the calculated GFR AND GFRAA in patients over 70 years has not been determined. Clinical correlation is essential. LAB L501.1110 >60 mL/min Normal EST GFR 133 Result Comment: Non- GFR Calc LAB L501.1115 >60 mL/min Normal EST GFR - AA 161 Result Comment: GFR Calc LAB L501.1300 10-20 RATIO High BUN/CRE 46.9 LAB L501.2200 8.5-10.1 mg/dL CA Normal 8.6 LAB L501.5300 136-145 mmol/L High NA 146 LAB L501.5600 3.5-5.1 mmol/L K Normal 3.6 LAB L501.5900 98-107 mmol/L CL Normal 107 LAB L501.6100 21.0-32.0 mmol/L Normal CO2 32.0 LAB L501.6200 5-15 Normal GAP 7 Performed By: #### L500.2500, L500.3400 #### [facility] [address] [place], [place], [address] LIVER PROFILE Collected: 09/07/2018 Status: F Source: [place] 6:00 AM [facility] REPOSITORY Order Comment: 416 TYPE CODE TESTS RESULT OUT OF RANGE REFERENCE UNITS LAB L501.1500 6.4-8.2 g/dL Normal T PROT 6.6 LAB L501.1800 3.2-5.0 g/dL Low ALB 2.7 LAB L501.1950 2.2-4.2 g/dL Normal GLOB 3.9 LAB L501.4100 15-37 U/L Normal AST 28 LAB L501.4305 45-117 U/L High ALK P 283 LAB L501.4405 16-61 U/L High ALT 62 LAB L501.4600 0.20-1.00 mg/dL Normal T BILI 0.60 LAB L501.4700 0.00-0.30 mg/dL Normal D BILI 0.17 Performed By: #### L500.2500, L500.3400 #### [facility] [address] [facility] [place], [address] DISCHARGE SUMMARY Observed: 09/03/2018 Status: C Source: [place] 9:53 [facility] REPOSITORY [facility] Medical Records Department [address] [place] [address] Discharge Summary 08/15/18 [facility] MR#: [id number] Acct: [id number] Name: Regina Rojas Rep #: [id number] : 1935 82 From: Nadira CASTANO PCP: Josette Melendez MD Status: DIS IN Y Location: [place] [address] ADDENDUM by Ashly Huang MD on 09/03/18 at 0953 Code Visit Patient was seen and examined on the day of discharge. Findings on the day of discharge were as follows: Physical Exam General: Alert, Oriented x3, Cooperative, No apparent distress HEENT: Atraumatic, PERRLA, EOMI, Normocephalic Neck: Supple, No JVD, Negative Carotid Bruits Lungs: Clear to auscultation, Diminished Cardiovascular: Regular rate, Regular Rhythm, Normal S1, Normal S2, No murmurs Abdomen: Bowel Sounds Present, Soft, Non Tender, Non-Distended Extremities: Dressing over bilateral lower extremities, clean and dry Skin: No rashes, No breakdown, - - Stage II coccyx decubital ulcer, bilateral heel pressure wounds. Both present on admission. Musculoskeletal: No Tenderness to Palpation of Joints or Extremities Neurological: Cranial nerves II-XII grossly intact, Neuro grossly intact, - - Chronic paraplegia. Psych/Mental Status: Normal Affect, Appropriate 09/03/18 0953 <Electronically signed by Ashly Huang MD> Date Ashly Huang MD cc: EYAD Goldberg; Ashly Huang MD; Josette Melendez MD * Addendum ADDENDUM by Ashly Huang MD on 08/27/18 at 0757 Code Visit Patient is an 82-year-old male with past medical history of CVA, history of AK, subarachnoid hemorrhage, history of frequent UTIs, self catheterizes himself was admitted with altered mental status. His urine culture was positive for Citrobacter and he was managed as acute encephalopathy secondary to acute Citrobacter cystitis likely from his self- catheterization for chronic urinary retention. He was seen by infectious disease during this hospital stay, managed on IV meropenem. He will be discharged on a 6-week course of meropenem with a stop date of 09/22/2018. Patient also had bilateral heel osteomyelitis that was confirmed on MRI. His wound cultures were growing Burkholderia. 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 He also had critical ischemia of the right lower extremity, multi segmental vascular occlusive disease with occlusion of the right posterior tibia artery suspected. Diffuse calcification of vessel wall throughout of the large vessels. Bilateral amputation was recommended but patient tried not to go that route. He was followed up by podiatry was in the hospital and conservative management was planned. He will follow up closely with the mangle tender in the wound center. He was discharged to the intermediate facility. 08/27/18 0757 <Electronically signed by Ashly Huang MD> Date Ashly Huang MD cc: EYAD Goldberg; Ashly Huang MD; Josette Melendez MD * Addendum <Nadira Goldberg - Last Filed: 08/15/18 10:45> Discharge Date and Diagnosis Date of Admission: 08/11/18 Date of Discharge: 08/15/18 - Primary Discharge Diagnosis Active and Suspected Problems (Last Reviewed 08/13/18 @ 10:19 by Fernando [place] MD) 1. Acute encephalopathy suspected secondary to acute Citrobacter cystitis 2. 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 No destructive bone changes are seen. Electronically Signed: Jackelin Ramachandran MD at 20:04 EDT Tel , Service support , Lower Extremity MRI 08/12/18 13:46 IMPRESSION: Mild marrow edema of the calcaneus and lateral malleolus with osteomyelitis versus stress injury. Electronically Signed: Gigi Cook MD at 13:44 EDT , Service support , Brain CT 08/12/18 18:27 IMPRESSION: 1. No acute process. 2. Chronic right parietal infarct. 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 Patterson- Neurology Dr. Lagos- Vascular Dr. Robert- ID Dr. Quintana- Podiatry Operations: None Procedures: Electroencephalogram Summary of Care Provided: The patient is a 82 year old M admitted 08/11/2018 due to altered mental status. 1. Acute encephalopathy suspected secondary to acute citrobacter cystitis-mental status at baseline. Patient with history of recurrent cystitis secondary to chronic urinary retention with uqiu-mipcqkodvzzemws-ut meropenem given complicated history of urine cultures, positive for enterococcus and Pseudomonas with allergy to penicillins and cephalosporins. Wheeler in place. Urine culture positive for Citrobacter. Blood culture shows no growth. ID following. PICC line placed for ID recommendations of IV meropenem for 6 weeks of therapy at [place]. 2. Stage II decubitus coccyx ulcer/bilateral heel osteomyelitis- wounds present on admission. Podiatry consulted. Frequent position changes. MRI of bilateral lower extremities ordered to assess bilateral heel pressure ulcers. Wound culture right heel shows burkholderia. Noninvasive lower extremity arterial study showed findings consistent with critical ischemia of the right lower extremity, multisegmental vascular occlusive disease, occlusion of the right posterior tibial suspected, diffuse calcification of vessel montejo noted throughout the large vessels, ankle brachial indices could not be obtained, Doppler waveforms markedly abnormal particularly involving the dorsalis pedis, findings consistent with multisegmental occlusive disease.. Continue dressing changes as ordered: Santyl, gauze, offloading foam boots. ID consulted. PICC line placed for ID recommendations of IV meropenem for 6 weeks of therapy [address] [place]. Dr. Lagos evaluated patient who did not recommend vascular intervention. Recommended consideration for amputation of bilateral lower extremities. Patient not interested in this route at this time. Follow up with Dr. Quintana in 1-2 Weeks and Wound Center Weekly. 3. Involuntary movements-Neurology consulted. Patient is reported to have history of seizures and is not on AEDs. EEG without evidence of seizure activity. Patient reports history of spastic movements. Previously on baclofen which he states was note effective. Continue flexeril 10mg TID PRN. Recommend outpatient follow up with neurology at discharge. Patient previously followed with Dr. Basilio. Would like to transfer care to Dr. Patterson at discharge. Follow up with Dr. Patterson in 1-2 Weeks. 4. History of NSTEMI-continue Plavix, statin, Coreg, losartan. Denies chest pain. Follows as outpatient with [facility]. 5. Type 2 diabetes mellitus-home metformin regimen continued. 6. Paraplegia secondary to history of transverse myelitis/subarachnoid xrpzejlqfc-ftaamkgmed-crola. PT/OT. 7. 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 9. PVD-continue statin, Plavix. 10. Hypertension-stable, continue home carvedilol, losartan regimen. 11. Depression-continue home Lexapro regimen. General: Alert, Oriented x3, Cooperative, No apparent distress HEENT: Atraumatic, PERRLA, EOMI, Normocephalic Neck: Supple, No JVD, Negative Carotid Bruits Lungs: Clear to auscultation, Diminished Cardiovascular: Regular rate, Regular Rhythm, Normal S1, Normal S2, No murmurs Abdomen: Bowel Sounds Present, Soft, Non Tender, Non-Distended Extremities: No clubbing, No cyanosis, No edema, Capillary Refill Less than 3 Seconds Skin: No rashes, No breakdown, - - Stage II coccyx decubital ulcer, bilateral heel pressure wounds. Both present on admission. Musculoskeletal: No Tenderness to Palpation of Joints or Extremities Neurological: Cranial nerves II-XII grossly intact, Neuro grossly intact, - - Chronic paraplegia. Psych/Mental Status: Normal Affect, Appropriate Patient is exam prior to discharge. Physical assessment as noted above. Patient stable for discharge to SNF with the follow-up her conditions as noted above. This patient was seen by EYAD Stevens under the supervision of Dr. Huang. Home Medications: Medications to take at Discharge Multivitamins,Ther W-Minerals [Multivitamin With Minerals] 1 tab PO DAILY@1700 #30 tab 09/18/14 Pyridoxine HCl [Vitamin B-6] 100 mg PO DAILY@1700 #30 tab 09/18/14 Losartan Potassium [Cozaar] 12.5 mg PO DAILY@2200 01/12/16 Riboflavin [Vitamin B2] 300 mg PO DAILY@1700 11/10/16 Ascorbic Acid [Vitamin C] 1,000 mg PO DAILY 07/05/18 Escitalopram Oxalate [Lexapro] 10 mg PO DAILY 07/05/18 Gabapentin [Neurontin] 600 mg PO 4X/DAY 07/05/18 Gully Carbonate 150 mg PO TID 07/05/18 Atorvastatin Calcium [Lipitor] 40 mg PO QHS #90 tab 07/09/18 Carvedilol [Coreg (Beta Krissy)] 6.25 mg PO BID #90 tab 07/09/18 Clopidogrel Bisulfate [Plavix] 75 mg PO DAILY #90 tab 07/09/18 Isosorbide Mononitrate 10 mg PO QHS #90 tab 07/09/18 Morphine Sulfate [Morphine Sulfate ER] 30 mg PO BID 2 Days #4 tablet.er 07/09/18 Hydrocodone/Acetaminophen [Hydrocodone-Acetamin 10-325 mg] 10 - 325 mg PO DAILY 08/10/18 Furosemide [Lasix] 40 mg PO DAILY 08/11/18 Magnesium 400 mg PO BID 08/11/18 Potassium Chloride 20 meq DAILY 08/11/18 Sennosides/Docusate Sodium [Senna-S Laxative Tablet] 2 each PO DAILY 08/11/18 traZODone [Desyrel] 25 mg PO QHS 08/11/18 Collagenase [Santyl] 1 applic TOPICAL DAILY tube 08/14/18 Cyclobenzaprine [Flexeril] 10 mg PO TID PRN PRN tablet 08/14/18 Meropenem [Merrem] 500 mg IV Q8H 39 Days #117 vial 08/14/18 Metformin HCl [Glucophage] 500 mg PO BIDCM tablet 08/14/18 Mineral Oil/Petrolatum,White [Eucerin] 1 applic TOPICAL BID jar 08/14/18 Smz/Tmp Ds [Bactrim Ds] 1 tablet PO DAILY tablet 08/14/18 Tamsulosin HCl [Flomax] 0.4 mg PO DAILY@1730 capsule 08/14/18 Following Prescrptions Were Given to Patient: Meropenem [Merrem] 500 mg IV Q8H 39 Days #117 vial Primary Care Physician: Josette Melendez MD [Primary Care Provider] - Please follow up with your Primary Care Physician in: 1 Week Please Follow Up With: Vicente Quintana DPM When: 1-2 Weeks Please Follow Up With: Fernando Patterson MD When: 1-2 Weeks Please Follow Up With: Wound Center When: 1 Week Disposition: Retirement facility Minutes spent on discharge:: 35 Patient Condition:: Stable Medical Necessity - Tobacco Use Smoking Status: Never smoker Meaningful Use Info Meaningful Use Diagnoses (Choose all that apply): None applicable <Ashly Huang - Last Filed: 08/15/18 18:13> Discharge Date and Diagnosis - Secondary Discharge Diagnosis Chronic Problems (Last Reviewed 08/13/18 @ 10:19 by Fernando Patterson MD) Chronic pain (Chronic) Nocardia infection (Chronic) 2004, right arm and left leg, 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 Routine Comment: NECROTIC WOUNDS FEET, ULCER COCCYX Summary of Care Provided: The patient is a 82 year old M [] Code Visit Inpatient E AND M: [id number] Disch Hosp 08/15/18 1046 <Electronically signed by Nadira RAEC> Date Nadira Goldberg NAILHEAD PUNCHER-C 08/15/18 1813<Electronically signed by Ashly Huang MD> Cosigner Signature (if applicable): Date Ashly Huang MD CC: NAILHEAD PUNCHERJoana Goldberg; Ashly Huang MD; Josette Melendez MD Addendum CBC W/DIFF, AUTOMATED Collected: 08/31/2018 Status: F Source: [place] 6:15 AM [facility] REPOSITORY Order Comment: 416 TYPE CODE TESTS RESULT OUT OF RANGE REFERENCE UNITS LAB L100.1000 4.4-11.0 K/mm3 Normal WBC 5.6 LAB L100.1200 4.6-6.2 M/mm3 Low RBC 3.71 LAB L100.1300 13.0-16.5 g/dl Low HGB 11.7 LAB L100.1400 40-54 % Low HCT 36.9 LAB L100.1500 80-94 fL High MCV 99.5 LAB L100.1600 27.0-32.0 pg Normal MCH 31.5 LAB L100.1700 32-36 g/gl Low MCHC 31.7 LAB L100.1810 11.6-14.6 % Normal RDW CV 13.0 LAB L100.1820 35.1-43.9 fl High RDW SD 46.1 LAB L100.1900 150-450 K/mm3 Normal PLT 189 LAB L100.2000 6.2-12.0 fl Normal MPV 9.4 LAB L100.2100 47-70 % Normal NEUT% 55.0 LAB L100.2200 19-41 % Normal LY% 27.7 LAB L100.2300 0-10 % High MONO% 11.2 LAB L100.2400 0-5 % Normal EO% 5.0 LAB L100.2500 0-1 % Normal BASO% 0.9 LAB L100.2550 0.0-0.9 % Normal IM GRAN % 0.200 Result Comment: IG% - Immature Granulocytes (promyelocytes, myelocytes and metamyelocytes) > 1% indicates that a LEFT SHIFT is Present. LAB L100.2620 2.0-7.7 X10 3/uL Normal Absolute Neut 3.1 LAB L100.2720 0.83-4.51 X10 3/ul Normal Absolute Lymph 1.56 Performed By: #### L100.0100, L101.9900 #### [facility] [address] [place], [address] ERYTHROCYTE SED RATE Collected: 08/31/2018 Status: F Source: [place] 6:15 AM [facility] REPOSITORY Order Comment: 416 TYPE CODE TESTS RESULT OUT OF RANGE REFERENCE UNITS LAB L102.0000 0-20 mm/hr High SED RATE 33 Performed By: #### L100.0100, L101.9900 #### [facility] [address] [place], [place], [id number] BASIC METABOLIC Collected: 08/31/2018 Status: F Source: [place] PROFILE (BMP) 6:15 AM [facility] REPOSITORY Order Comment: 416 TYPE CODE TESTS RESULT OUT OF RANGE REFERENCE UNITS LAB L501.0100 74-106 mg/dL Normal GLU 98 Result Comment: Please note revised GLUCOSE reference range effective 2017. LAB L501.1000 7-18 mg/dL High BUN 30 LAB L501.1100 0.70-1.30 mg/dL Low CREAT,SERUM 0.68 Result Comment: The validity of the calculated GFR AND GFRAA in patients over 70 years has not been determined. Clinical correlation is essential. LAB L501.1110 >60 mL/min Normal EST GFR 120 Result Comment: Non- GFR Calc LAB L501.1115 >60 mL/min Normal EST GFR - AA 145 Result Comment: GFR Calc LAB L501.1300 10-20 RATIO High BUN/CRE 44.4 LAB L501.2200 8.5-10.1 mg/dL CA Normal 8.7 LAB L501.5300 136-145 mmol/L NA Normal 145 LAB L501.5600 3.5-5.1 mmol/L K Normal 4.3 LAB L501.5900 98-107 mmol/L CL Normal 106 LAB L501.6100 21.0-32.0 mmol/L High CO2 34.0 LAB L501.6200 5-15 Normal GAP 5 Performed By: #### L500.2500, L500.3400 #### [facility] [address] [place], [place], [id number] LIVER PROFILE Collected: 08/31/2018 Status: F Source: [place] 6:15 AM [facility] REPOSITORY Order Comment: 416 TYPE CODE TESTS RESULT OUT OF RANGE REFERENCE UNITS LAB L501.1500 6.4-8.2 g/dL Normal T PROT 6.8 LAB L501.1800 3.2-5.0 g/dL Low ALB 2.8 LAB L501.1950 2.2-4.2 g/dL Normal GLOB 4.0 LAB L501.4100 15-37 U/L Normal AST 37 LAB L501.4305 45-117 U/L High ALK P 282 LAB L501.4405 16-61 U/L High ALT 65 LAB L501.4600 0.20-1.00 mg/dL Normal T BILI 0.60 LAB L501.4700 0.00-0.30 mg/dL Normal D BILI 0.20 Performed By: #### L500.2500, L500.3400 #### [facility] [address] [facility] [place], [place], [address] ERYTHROCYTE SED RATE Collected: 08/24/2018 Status: F Source: [place] 7:50 AM [facility] REPOSITORY Order Comment: ROOM 416 TYPE CODE TESTS RESULT OUT OF RANGE REFERENCE UNITS LAB L102.0000 0-20 mm/hr High SED RATE 33 Performed By: #### L101.9900, L100.0500 #### [facility] [address] [place], [address] CBC-COMPLETE BLOOD CNT Collected: 08/24/2018 Status: F Source: [place] NO DIFF 7:50 AM [facility] REPOSITORY Order Comment: ROOM 416 TYPE CODE TESTS RESULT OUT OF RANGE REFERENCE UNITS LAB L100.1000 4.4-11.0 K/mm3 Normal WBC 6.2 LAB L100.1200 4.6-6.2 M/mm3 Low RBC 3.64 LAB L100.1300 13.0-16.5 g/dl Low HGB 11.4 LAB L100.1400 40-54 % Low HCT 36.5 LAB L100.1500 80-94 fL High MCV 100.3 LAB L100.1600 27.0-32.0 pg Normal MCH 31.3 LAB L100.1700 32-36 g/gl Low MCHC 31.2 LAB L100.1810 11.6-14.6 % Normal RDW CV 13.0 LAB L100.1820 35.1-43.9 fl High RDW SD 46.5 LAB L100.1900 150-450 K/mm3 Normal PLT 263 LAB L100.2000 6.2-12.0 fl Normal MPV 9.5 Performed By: #### L101.9900, L100.0500 #### [facility] [address] [place], [place], [id number] BASIC METABOLIC Collected: 08/24/2018 Status: F Source: [place] PROFILE (BMP) 7:50 AM [facility] REPOSITORY Order Comment: ROOM 416 TYPE CODE TESTS RESULT OUT OF RANGE REFERENCE UNITS LAB L501.0100 74-106 mg/dL Normal GLU 90 Result Comment: Please note revised GLUCOSE reference range effective 2017. LAB L501.1000 7-18 mg/dL High BUN 24 LAB L501.1100 0.70-1.30 mg/dL Low CREAT,SERUM 0.65 Result Comment: The validity of the calculated GFR AND GFRAA in patients over 70 years has not been determined. Clinical correlation is essential. LAB L501.1110 >60 mL/min Normal EST GFR 125 Result Comment: Non- GFR Calc LAB L501.1115 >60 mL/min Normal EST GFR - AA 151 Result Comment: GFR Calc LAB L501.1300 10-20 RATIO High BUN/CRE 36.9 LAB L501.2200 8.5-10.1 mg/dL CA Normal 8.7 LAB L501.5300 136-145 mmol/L High NA 146 LAB L501.5600 3.5-5.1 mmol/L K Normal 3.9 LAB L501.5900 98-107 mmol/L CL Normal 106 LAB L501.6100 21.0-32.0 mmol/L High CO2 35.0 LAB L501.6200 5-15 Normal GAP 5 Performed By: #### L500.2500, L500.3400 #### [facility] [address] [place], [place], [id number] LIVER PROFILE Collected: 08/24/2018 Status: F Source: [place] 7:50 AM [facility] REPOSITORY Order Comment: ROOM 416 TYPE CODE TESTS RESULT OUT OF RANGE REFERENCE UNITS LAB L501.1500 6.4-8.2 g/dL Normal T PROT 6.6 LAB L501.1800 3.2-5.0 g/dL Low ALB 2.7 LAB L501.1950 2.2-4.2 g/dL Normal GLOB 3.9 LAB L501.4100 15-37 U/L Normal AST 27 LAB L501.4305 45-117 U/L High ALK P 247 LAB L501.4405 16-61 U/L Normal ALT 41 LAB L501.4600 0.20-1.00 mg/dL Normal T BILI 0.60 LAB L501.4700 0.00-0.30 mg/dL Normal D BILI 0.18 Performed By: #### L500.2500, L500.3400 #### [facility] [address] [facility] [place], [place], [id number] CBC-COMPLETE BLOOD CNT Collected: 08/17/2018 Status: F Source: [place] NO DIFF 7:25 AM [facility] REPOSITORY Order Comment: ROOM 416 TYPE CODE TESTS RESULT OUT OF RANGE REFERENCE UNITS LAB L100.1000 4.4-11.0 K/mm3 Normal WBC 5.3 LAB L100.1200 4.6-6.2 M/mm3 Low RBC 3.64 LAB L100.1300 13.0-16.5 g/dl Low HGB 11.6 LAB L100.1400 40-54 % Low HCT 36.2 LAB L100.1500 80-94 fL High MCV 99.5 LAB L100.1600 27.0-32.0 pg Normal MCH 31.9 LAB L100.1700 32-36 g/gl Normal MCHC 32.0 LAB L100.1810 11.6-14.6 % Normal RDW CV 13.3 LAB L100.1820 35.1-43.9 fl High RDW SD 46.4 LAB L100.1900 150-450 K/mm3 Normal PLT 234 LAB L100.2000 6.2-12.0 fl Normal MPV 9.1 Performed By: #### L100.0500, L101.9900 #### [facility] [address] [facility] [place], [address] ERYTHROCYTE SED RATE Collected: 08/17/2018 Status: F Source: [place] 7:25 AM [facility] REPOSITORY Order Comment: ROOM 416 TYPE CODE TESTS RESULT OUT OF RANGE REFERENCE UNITS LAB L102.0000 0-20 mm/hr High SED RATE 38 Performed By: #### L100.0500, L101.9900 #### [facility] [address] [place], [place], [id number] BASIC METABOLIC Collected: 08/17/2018 Status: F Source: [place] PROFILE (BMP) 7:25 AM [facility] REPOSITORY Order Comment: ROOM 416 TYPE CODE TESTS RESULT OUT OF RANGE REFERENCE UNITS LAB L501.0100 74-106 mg/dL Normal GLU 88 Result Comment: Please note revised GLUCOSE reference range effective 2017. LAB L501.1000 7-18 mg/dL High BUN 21 LAB L501.1100 0.70-1.30 mg/dL Low CREAT,SERUM 0.64 Result Comment: The validity of the calculated GFR AND GFRAA in patients over 70 years has not been determined. Clinical correlation is essential. LAB L501.1110 >60 mL/min Normal EST GFR 128 Result Comment: Non- GFR Calc LAB L501.1115 >60 mL/min Normal EST GFR - AA 155 Result Comment: GFR Calc LAB L501.1300 10-20 RATIO High BUN/CRE 32.9 LAB L501.2200 8.5-10.1 mg/dL CA Normal 8.7 LAB L501.5300 136-145 mmol/L NA Normal 145 LAB L501.5600 3.5-5.1 mmol/L K Normal 3.7 LAB L501.5900 98-107 mmol/L CL Normal 107 LAB L501.6100 21.0-32.0 mmol/L Normal CO2 30.0 LAB L501.6200 5-15 Normal GAP 8 Performed By: #### L500.2500, L500.3400 #### [facility] [address] [place], [place], [address] LIVER PROFILE Collected: 08/17/2018 Status: F Source: [place] 7:25 AM [facility] REPOSITORY Order Comment: ROOM 416 TYPE CODE TESTS RESULT OUT OF RANGE REFERENCE UNITS LAB L501.1500 6.4-8.2 g/dL Low T PROT 6.3 LAB L501.1800 3.2-5.0 g/dL Low ALB 2.5 LAB L501.1950 2.2-4.2 g/dL Normal GLOB 3.8 LAB L501.4100 15-37 U/L Normal AST 24 LAB L501.4305 45-117 U/L High ALK P 200 LAB L501.4405 16-61 U/L Normal ALT 35 LAB L501.4600 0.20-1.00 mg/dL Normal T BILI 0.50 LAB L501.4700 0.00-0.30 mg/dL Normal D BILI 0.15 Performed By: #### L500.2500, L500.3400 #### [facility] [address] [place], [address] 12 LEAD ELECTROCARDIOGRAM Observed: 08/15/2018 Status: F Source: [place] 3:29 PM [facility] REPOSITORY [facility] Cardiovascular Services [address] [place] [address] 12 Lead EKG 08/11/18 0445 MR#: [id number] Acct: [id number] Name: REGINA ROJAS Rep #: [id number] : 1935 82 From: Haider Gomez MD Attending Dr: Ashly Huang MD Status: DIS IN Ordering Dr: Nadira Goldberg Date: 08/11/18 Location: [facility] Sex: M C Admitted: 08/11/18 Test Reason : ST ELEVATION Blood Pressure : / mmHG Vent. Rate : 069 BPM Atrial Rate : 069 BPM P-R Int : 200 ms QRS Dur : 094 ms QT Int : 410 ms P-R-T Axes : 066 042 056 degrees QTc Int : 439 ms Normal sinus rhythm Anteroseptal infarct , age undetermined Abnormal ECG When compared with ECG of 10-AUG-2018 20:55, MANUAL COMPARISON REQUIRED, DATA IS UNCONFIRMED Confirmed by HAIDER GOMEZ MD ([id number]), city editor DRE KIRBY ([id number]) on 08/15/2018 3:29:02 PM Referred By: DR SAENZ Confirmed By:HAIDER GOMEZ MD 08/15/18 1529 Date Haider Gomez MD CC: NAILHEAD PUNCHER-C Nadira Goldberg; Ashly Huang MD; Josette Melendez MD Signed 12 LEAD ELECTROCARDIOGRAM Observed: 08/15/2018 Status: F Source: [place] 3:28 PM [facility] REPOSITORY [facility] Cardiovascular Services [address] [place] [address] 12 Lead EKG 08/11/18 1453 MR#: [id number] Acct: [id number] Name: REGINA ROJAS Rep #: [id number] : 1935 82 From: Haider Gomez MD Attending Dr: Ashly Huang MD Status: DIS IN Ordering Dr: Dany Kwon MD Date: 08/11/18 Location: [facility] Sex: M C Admitted: 08/11/18 Test Reason : Blood Pressure : / mmHG Vent. Rate : 063 BPM Atrial Rate : 063 BPM P-R Int : 194 ms QRS Dur : 096 ms QT Int : 412 ms P-R-T Axes : 062 026 045 degrees QTc Int : 421 ms Normal sinus rhythm Anteroseptal infarct , age undetermined Abnormal ECG When compared with ECG of 11-AUG-2018 04:45, MANUAL COMPARISON REQUIRED, DATA IS UNCONFIRMED Confirmed by PATRICIA PIPER, HAIDER ([id number]), city editor DRE KIRBY ([id number]) on 08/15/2018 3:28:13 PM Referred By: SHANDA Confirmed By:HAIDER GOMEZ MD 08/15/18 1528 Date Haider Gomez MD CC: Ashly Huang MD; Josette Melendez MD; Dany Kwon MD Signed TRANSFER TO EXTENDED Observed: 08/15/2018 Status: F Source: [place] CARE 1:32 PM [facility] REPOSITORY [facility] Medical Records Department [address] [place] [address] Transfer to Extended Care MR#: [id number] Acct: [id number] Name: REGINA ROJAS Rep #: [id number] : 1935 82 From: Nadira Goldberg NAILHEAD PUNCHER-C PCP: Josette Melendez MD Status: ADM IN REGINA ROJAS (Patient) (Health Ins. Claim No.) (Day of Discharge to Facility) Certification of patient admission REQUIRED AT TIME OF ADMISSION. I CERTIFY THAT POST-HOSPITAL ECF SERVICES ARE REQUIRED TO BE GIVEN ON AN IN-PATIENT BASIS BECAUSE OF THE ABOVE NAMED PATIENT'S NEED FOR LONG-TERM CARE ON A CONTINUING BASIS FOR THE CONDITION(S) FOR WHICH HE/SHE WAS RECEIVING IN-PATIENT HOSPITAL SERVICES PRIOR TO HIS/HER TRANSFER TO THE ECF. 08/14/18 1605 <Electronically signed by Ashly Huang MD> Date: ADDENDUM by Ashly Huang MD on 08/15/18 at 1332 Code Visit Please let patient self-catheterise himself daily with fresh catheter. Encourage use of incentive spirometer. Follow-up closely in the wound center with Dr. Quintana. Follow-up with ID in 2 weeks 08/15/18 1332 <Electronically signed by Ashly Huang MD> Date Ashly Huang MD cc: Adela Bradley MD; Josette Melendez MD; Vicente Quintana DPM; Jose Lagos MD; Jose Robert MD * Signed <Nadira Goldberg - Last Filed: 08/14/18 11:20> - Diet 08/11/18 01:17 Diet: Cardiac/Low Cholesterol Food consistency:: Regular Liquid Consistency:: Regular/Thin - Routine Orders/Code Status Enema Type: Fleetz Enema Frequency: Daily PRN Suppository Type: Dulcolax 10mg Suppository Frequency: Daily PRN O2 Liters per Minute: 2 O2 Frequency: PRN Keep PO Greater than or Equal to (%): 90 Routine Lab Work: CBC, BMP, - - Q Week - Wound(s) L dorsal foot Wound Type: Neuropathic/Diabetic Foot Ulcer Dressing Change: santyl with dry dressing L outer ankle Wound Type: Neuropathic/Diabetic Foot Ulcer Dressing Change: santyl with dry dressing L foot heel Wound Type: Neuropathic/Diabetic Foot Ulcer Dressing Change: santyl with dry dressing L large toe Wound Type: scabbed ulcer R large toe Wound Type: scabbed ulcer R heel Wound Type: Neuropathic/Diabetic Foot Ulcer Dressing Change: santyl with dry dressing R outer ankle Wound Type: Neuropathic/Diabetic Foot Ulcer R dorsal ankle Wound Type: Neuropathic/Diabetic Foot Ulcer right lateral malleolus Wound Type: combination of pressure and ischemia Dressing Change: santyl with dry dressing - Suggestions for Active Care Change Position every (hours): 2 Times a day to sit in chair: 3 - Therapies Weight Bearing: Partial weight bearing Physical Therapy: Eval and Treat Occupational Therapy: Eval and Treat - Problem/Diagnosis (1) Acute encephalopathy Status: Acute Current Visit: Yes (2) Osteomyelitis Status: Acute Current Visit: Yes (3) Non-STEMI (non-ST elevated myocardial infarction) Status: Resolved Current Visit: No (4) Chronic pain Status: Chronic Current Visit: No (5) Nocardia infection Status: Chronic Comment: 2004, right arm and left leg, continued suppressive therapy Current Visit: No (6) Transverse myelitis Status: Chronic Comment: 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 Current Visit: No (7) Constipation Status: Chronic Current Visit: No (8) Carpal tunnel syndrome on both sides Status: Chronic Current Visit: No (9) Syringomyelia Status: Chronic Current Visit: No (10) HTN (hypertension) Status: Chronic Current Visit: No (11) PAD (peripheral artery disease) Status: Chronic Current Visit: No (12) Left leg weakness Status: Chronic Current Visit: No (13) Paraplegia Status: Chronic Comment: due to transverse myelitis Current Visit: No - Allergies/Procedures Done in Hospital Allergies/Adverse Reactions: Allergies Cephalosporins Allergy (Intermediate, Verified 08/10/18 20:29) Laryngospasms Penicillins Allergy (Intermediate, Verified 08/10/18 20:29) Rash IVP DYE Allergy (Uncoded 07/05/18 10:04) Rash Procedures: Electroencephalogram, - - Arterial study - Type of Care/Length of Stay Estimated LOS: More Than 30 Days Type of Care Needed: Skilled Rehab Potential: Fair Prognosis: Fair - Additional Orders/Day of Discharge H AND P will serve as current which was dated: 08/11/18 Day of Discharge: 08/15/18 - Dietary and Speech Recommendations Dietitian Recommendations/Changes: Rec 1 packet Hermelindo BID for wound healing- order from pharmacy. Rec continue cardiac diet and encourage ensure w/ medpass consumption. - Follow Up Care Primary Care Physician: Josette Melendez MD [Primary Care Provider] - Please follow up with your Primary Care Physician in: 1 Week Please Follow Up With: Vicente Quintana DPM When: 1-2 Weeks Please Follow Up With: Fernando Patterson MD When: 1-2 Weeks Please Follow Up With: Wound Center When: 1 Week <Ashly Huang - Last Filed: 08/14/18 16:05> - Diet 08/11/18 01:17 Diet: Cardiac/Low Cholesterol Food consistency:: Regular Liquid Consistency:: Regular/Thin 08/14/18 1121 <Electronically signed by Nadira RAEC> Date Nadira RAEC 08/14/18 1605<Electronically signed by Ashly Huang MD> Cosigner Signature: Date Ashly Huang MD CC: Adela Bradley MD; Josette Melendez MD; Vicente Quintana DPM; Jose Lagos MD; Jose Robert MD BEDSIDE GLUCOSE Collected: 08/15/2018 Status: F Source: [place] 11:20 [facility] REPOSITORY TYPE CODE TESTS RESULT OUT OF REFERENCE UNITS RANGE LAB L501.080 70-110 mg/dL High BEDSIDE GLU 126 Result Comment: MANAGEMENT OF PATIENT CARE PER NURSING PROTOCOL Performed By: #### L501.080 #### [facility] Point [facility] Care [address] [place] [address] BEDSIDE GLUCOSE Collected: 08/15/2018 Status: F Source: [place] 6:44 AM [facility] REPOSITORY TYPE CODE TESTS RESULT OUT OF RANGE REFERENCE UNITS LAB L501.080 70-110 mg/dL Normal BEDSIDE GLU 98 Result Comment: MANAGEMENT OF PATIENT CARE PER NURSING PROTOCOL Performed By: #### L501.080 #### [facility] Point of Care [address] [place] [address] CBC W/DIFF, AUTOMATED Collected: 08/15/2018 Status: F Source: [place] 5:40 AM [facility] REPOSITORY TYPE CODE TESTS RESULT OUT OF RANGE REFERENCE UNITS LAB L100.1000 4.4-11.0 K/mm3 Normal WBC 5.3 LAB L100.1200 4.6-6.2 M/mm3 Low RBC 3.40 LAB L100.1300 13.0-16.5 g/dl Low HGB 10.6 LAB L100.1400 40-54 % Low HCT 33.4 LAB L100.1500 80-94 fL High MCV 98.2 LAB L100.1600 27.0-32.0 pg Normal MCH 31.2 LAB L100.1700 32-36 g/gl Low MCHC 31.7 LAB L100.1810 11.6-14.6 % Normal RDW CV 13.4 LAB L100.1820 35.1-43.9 fl High RDW SD 47.5 LAB L100.1900 150-450 K/mm3 Normal PLT 191 LAB L100.2000 6.2-12.0 fl Normal MPV 9.3 LAB L100.2100 47-70 % Normal NEUT% 57.3 LAB L100.2200 19-41 % Normal LY% 29.0 LAB L100.2300 0-10 % Normal MONO% 8.5 LAB L100.2400 0-5 % Normal EO% 3.6 LAB L100.2500 0-1 % Normal BASO% 0.8 LAB L100.2550 0.0-0.9 % Normal IM GRAN % 0.800 Result Comment: IG% - Immature Granulocytes (promyelocytes, myelocytes and metamyelocytes) > 1% indicates that a LEFT SHIFT is Present. LAB L100.2620 2.0-7.7 X10 3/uL Normal Absolute Neut 3.0 LAB L100.2720 0.83-4.51 X10 3/ul Normal Absolute Lymph 1.53 Performed By: #### L100.0100 #### [facility] [address] [place], [place], [address] BASIC METABOLIC Collected: 08/15/2018 Status: F Source: [place] PROFILE (BMP) 5:40 AM [facility] REPOSITORY TYPE CODE TESTS RESULT OUT OF RANGE REFERENCE UNITS LAB L501.0100 74-106 mg/dL Normal GLU 94 Result Comment: Please note revised GLUCOSE reference range effective 2017. LAB L501.1000 7-18 mg/dL Normal BUN 15 LAB L501.1100 0.70-1.30 mg/dL Low CREAT,SERUM 0.66 Result Comment: The validity of the calculated GFR AND GFRAA in patients over 70 years has not been determined. Clinical correlation is essential. LAB L501.1110 >60 mL/min Normal EST GFR 123 Result Comment: Non- GFR Calc LAB L501.1115 >60 mL/min Normal EST GFR - AA 149 Result Comment: GFR Calc LAB L501.1255 ml/min Normal Estimated CRCL 60.83 LAB L501.1300 10-20 RATIO High BUN/CRE 22.7 LAB L501.2200 8.5-10 mg/dL Low .1 CA 8.3 LAB L501.5300 136-14 mmol/L Normal 5 NA 145 LAB L501.5600 3.5-5. mmol/L Normal 1 K 3.6 LAB L501.5900 98-107 mmol/L Normal CL 107 LAB L501.6100 21.0-3 mmol/L Normal 2.0 CO2 31.0 LAB L501.6200 5-15 Normal GAP 7 Performed By: #### L500.2500 #### [facility] [address] [facility] [address] [place], [place], [address] BEDSIDE GLUCOSE Collected: 08/14/2018 Status: F Source: [place] 10:30 PM [facility] REPOSITORY TYPE CODE TESTS RESULT OUT OF REFERENCE UNITS RANGE LAB L501.080 70-110 mg/dL High BEDSIDE GLU 155 Result Comment: MANAGEMENT OF PATIENT CARE PER NURSING PROTOCOL Performed By: #### L501.080 #### [facility] Point of Care [address] [place] [address] BEDSIDE GLUCOSE Collected: 08/14/2018 Status: F Source: [place] 5:01 PM [facility] REPOSITORY TYPE CODE TESTS RESULT OUT OF REFERENCE UNITS RANGE LAB L501.080 70-110 mg/dL High BEDSIDE GLU 112 Result Comment: MANAGEMENT OF PATIENT CARE PER NURSING PROTOCOL Performed By: #### L501.080 #### [facility] Point of Care [address] [place] [address] BEDSIDE GLUCOSE Collected: 08/14/2018 Status: F Source: [place] 11:09 AM [facility] REPOSITORY TYPE CODE TESTS RESULT OUT OF REFERENCE UNITS RANGE LAB L501.080 70-110 mg/dL High BEDSIDE GLU 112 Result Comment: MANAGEMENT OF PATIENT CARE PER NURSING PROTOCOL Performed By: #### L501.080 #### [facility] Point of Care [address] [place] [address] ELECTROENCEPHALOGRAM Observed: 08/14/2018 Status: F Source: [place] 11:02 AM [facility] REPOSITORY [facility] Pulmonary Services/Neurology [address] [place] [address] MR#: [id number] Acct: [id number] Name: REGINA ROJAS Rep #: [id number] : 1935 82 From: Fernando Patterson MD Referring Dr: Ashly Huang MD Status: ADM IN Ordering Dr: Date: Location: [place] [id number] Sex: M C - Electroencephalogram This is an 18 channel electroencephalogram performed on this 89-year-old male with a history of cystitis and encephalopathy. 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 He is not currently on an anticonvulsant. The International 10-20 electrode placement protocol is utilized for this recording. Hyperventilation, photic stimulation and EKG reference leads were also recorded. Hyperventilation is performed for 3 minutes with good effort with no lateralizing or epileptiform changes. Background activity is mildly slow at 7 Hz symmetrically in the posterior leads which attenuates with eye opening. Photic stimulation generates a normal symmetric driving response in the posterior leads. The patient remained awake throughout the recording without lateralizing or epileptiform changes. Impression: Mild nonspecific slowing, no lateralizing or epileptiform changes. Mild slowing is consistent with the diagnosis of encephalopathy due to metabolic issues. 08/14/18 1102 <Electronically signed by Fernando Patterson MD> Date Fernando Patterson MD CC: Ashly Huang MD; Josette Melendez MD; Fernando Patterson MD Date Dictated: 08/14/18 1046 Date Transcribed: 08/14/181045 Cotton Seed Culler: NF Signed CONSULTATION Observed: 08/14/2018 Status: F Source: [place] 11:02 [facility] REPOSITORY [facility] Medical Records Department [address] [place] [address] Consultation 08/13/18 1016 MR#: [id number] Acct: [id number] Name: REGINA ROJAS Rep #: [id number] : 1935 82 From: Fernando Patterson MD PCP: Josette Melendez MD Status: ADM IN Location: [place] [address] Reason for Consult Date of Consultation: 08/13/18 Reason for Consultation: spasms History of Present Illness: The patient is a 82 year old M with history of syringomyelia, unable to give clear history currently, apparently hospitalized for cystitis and is encephalopathic. reports he has been told in the past by [facility] neurologists that there is nothing to galindo. reports pain in his feet and arms. history of shunt due to SAH '04. reports history of seizures currently on neurontin, hasnt seen a neurologist recently (last saw kacie segura ').reports paraplegic since '. previously also saw ander in [facility]. 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 Medical History: Medical History (Last Reviewed 08/13/18 @ 10:19 by Fernando Patterson MD) Non-STEMI (non-ST elevated myocardial infarction) (Acute) I21.4 HTN (hypertension) (Chronic) I10 PAD (peripheral artery disease) (Chronic) I73.9 Paraplegia (Chronic) G82.20 due to transverse myelitis Allergies Cephalosporins Allergy (Intermediate, Verified 08/10/18 20:29) Laryngospasms Penicillins Allergy (Intermediate, Verified 08/10/18 20:29) Rash IVP DYE Allergy (Uncoded 07/05/18 10:04) Rash Home Medications: Ambulatory Orders Medication Instructions Recorded Multivitamins,Ther W-Minerals 1 tab PO DAILY@1700 #30 tab 09/18/14 [Multivitamin With Minerals] Surgical History: - - Laminectomy 2006, 2007. 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 Psychiatric History: No pertinent psych hx, - - he is very angry now and his attributes this to the steroids....she states it makes him mean. 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 Lives: [facility] Smoking Status: Never smoker - *Family History Maternal History Items: - - , depression Paternal History Items: - - Offspring History Items: - - 2 children, 4 grand children, 1 great grandchild, all in good health Review of Systems Neurological: Reports: Confusion Unable to obtain accurate/complete ROS d/t: confusion Patient Problems: Active and Suspected Problems (Last Reviewed 08/13/18 @ 10:19 by Fernando Patterson MD) Acute encephalopathy (Acute) - Physical Exam General: Alert, Cooperative, No apparent distress Neurological: Cranial nerves II-XII grossly intact, - - ble flaccid paralysis. ue normal Vital Signs Temp Pulse Resp BP Pulse Ox 36.6 C 66 16 168/66 H 94 08/13/18 08:10 08/13/18 08:10 08/13/18 08:10 08/13/18 08:10 08/13/18 08:10 Oxygen Flow Rate (L/min) 2 Oxygen Delivery Method Nasal Cannula Weight: 80.7 kg Body Mass Index (BMI) 25.5 Intake and Output for Last 24 Hours Intake Total 2516 / 2516 918.9 / 918.9 84 / 84 Output Total 1999 1325 / 1325 900 / 900 Balance 516 / 516 -406.1 / -406.1 -816 / -816 Microbiology Past 72 Hours 08/11/18 13:43 Gram Stain - Final Wound - Heel Right Wound Culture - Preliminary Laboratory Tests Past 24 Hrs WBC 5.1 RBC 3.09 L Hgb 9.9 L Hct 31.2 L MCV 101.0 H MCH 32.0 MCHC 31.7 L POC Glucose POC Glucose 94 117 H 102 POC Glucose 108 Assessment/Plan All Active Problems (Last Reviewed 08/13/18 @ 10:19 by Fernando Patterson MD) Acute encephalopathy (Acute) Non-STEMI (non-ST elevated myocardial infarction) (Acute) Abnormal EKG (Acute) encephalopathy, appears to be metabolic, superimposed on 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 history of sz, not on AEDs. * eeg * ammonia * metabolic workup 08/14/18 1102 <Electronically signed by Fernando Patterson MD> Date Fernando Patterson MD Cosigner Signature (if applicable): Date CC: Adela Bradley MD; Josette Melendez MD; Vicente Quintana DPM; Jose Lagos MD; Jose Robert MD Signed BEDSIDE GLUCOSE Collected: 08/14/2018 Status: F Source: [place] 7:09 AM [facility] REPOSITORY TYPE CODE TESTS RESULT OUT OF RANGE REFERENCE UNITS LAB L501.080 70-110 mg/dL Normal BEDSIDE GLU 103 Result Comment: MANAGEMENT OF PATIENT CARE PER NURSING PROTOCOL Performed By: #### L501.080 #### [facility] Point of Care [address] [place] [address] CONSULTATION Observed: 08/14/2018 Status: F Source: [place] 5:32 AM [facility] REPOSITORY [facility] Medical Records Department [address] [place] [address] Consultation 08/13/18 1834 MR#: [id number] Acct: [id number] Name: REGINA ROJAS Rep #: [id number] : 1935 82 From: Jose Lagos MD PCP: Josette Melendez MD Status: ADM IN Y Location: [place] [id number] Problem List (1) PAD (peripheral artery disease) Status: Chronic Reason for Consult Date of Consultation: 08/13/18 History of Present Illness: The patient is a 82 year old M who presents with peripheral vascular occlusive disease. I have been asked to see this patient tonight by Dr. Vicente Quintana for surgical consultation regarding PAD. A written copy my surgical consult and recommendations will be returned in the medical records. The patient apparently has a repeat hospitalization for chronic urinary tract infection. On recent hospitalization he developed bilateral calcaneal ulcerations. It is pertinent that the patient is paraplegic. As of February 05, 2014 I performed a abdominal pelvic lower extremity arteriogram with left anterior tibial 2 mm and a cross angioplasty. This was performed for a nonhealing left great toe ulceration. The patient has evidence of occluded bilateral anterior tibial arteries. I attempted a recanalization of the left anterior tibial but I failed. I performed a 2 mm x 210 mm Anuradha cross angioplasty of the mid and proximal left anterior tibial. I thought that this might assist me with getting further advancement however I was not able to proceed. Arteriogram at that time showed patent abdominal aorta, iliacs external iliacs and internal iliacs. 50% stenosis of the proximal left renal artery. 50% stenosis of the proximal right common iliac and about 50% stenosis of the left more distal common iliac. Additional note is made of an indwelling trapeze vena cava filter. The left superficial femoral artery was diffusely calcified throughout its entire length. There was 40% stenosis of the left proximal posterior tibial. The left peroneal was very disease. The left anterior tibial occludes within 6 cm. The right lower extremity demonstrates patent right superficial femoral artery but then the tibioperoneal trunk occludes. The right peroneal and posterior tibials are occluded. The right anterior tibial at that point filled the dorsalis pedis. There was a right knee prosthesis occluding some visualization. It is of note that on May 12, 2018 patient had MRI of the right ankle without contrast. Findings consistent with osteomyelitis of the right calcaneus. There is mild edema and possible osteomyelitis of the lateral malleolus. on that same date a left lower extremity MRI was obtained. This is also suggested of osteomyelitis of the calcaneus and lateral malleolus It is of note that the patient has a history of syringomyelia. Apparently previous [facility] neurologist have advised that no additional treatment is possible. He has been paraplegic since 2006. He has Citrobacter point a urinary tract infection and right heel culture demonstrates Burkholderia cepacia In addition he carries a history of a non-ST elevated segment AK. He apparently has an acutely abnormal EKG. In addition he has a stage II decubitus coccygeal ulceration. Noninvasive bilateral extremity arterial exams have been ordered but by verbal report of distinctly abnormal. The patient also has a history of type 2 diabetes. 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 Medical History: Medical History (Last Reviewed 08/13/18 @ 10:19 by Fernando Patterson MD) Non-STEMI (non-ST elevated myocardial infarction) (Acute) I21.4 HTN (hypertension) (Chronic) I10 PAD (peripheral artery disease) (Chronic) I73.9 Paraplegia (Chronic) G82.20 due to transverse myelitis Allergies Cephalosporins Allergy (Intermediate, Verified 08/10/18 20:29) Laryngospasms Penicillins Allergy (Intermediate, Verified 08/10/18 20:29) Rash IVP DYE Allergy (Uncoded 07/05/18 10:04) Rash Home Medications: Ambulatory Orders Medication Instructions Recorded Multivitamins,Ther W-Minerals 1 tab PO DAILY@1700 #30 tab 09/18/14 [Multivitamin With Minerals] Surgical History: - - Laminectomy 2006, 2007. 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 Psychiatric History: No pertinent psych hx, - - he is very angry now and his attributes this to the steroids....she states it makes him mean. 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 Lives: [facility] Smoking Status: Never smoker - *Family History Maternal History Items: - - , depression Paternal History Items: - - Offspring History Items: - - 2 children, 4 grand children, 1 great grandchild, all in good health Review of Systems Constitutional: Reports: Malaise Eyes: Denies: Blurred vision Cardiovascular: Denies: Chest Pain Musculoskeletal: Reports: - - Severe right leg spasms Patient Problems: Active and Suspected Problems (Last Reviewed 08/13/18 @ 10:19 by Fernando Patterson MD) Acute encephalopathy (Acute) Osteomyelitis (Acute) - Physical Exam General: Alert Oral: Moist Mucosa Neck: Supple, No JVD, Negative Carotid Bruits Lungs: Clear to auscultation, - - Diminished in bases Cardiovascular: Regular rate, Regular Rhythm, - - Bilateral carotids are 2+. No bruits. Bilateral brachials and radials 2+. Bilateral femorals 2+. Left popliteal 1+. Right popliteal difficult to appreciate. Bilateral DP and PT pulses not palpable Abdomen: Soft, Distended Extremities: - - 2+ bilateral extremity pitting edema Skin: - - Bilateral calcaneal ulcerations with dressings in place Vital Signs Temp Pulse Resp BP Pulse Ox 97.4 F L 57 L 16 139/60 H 97 08/13/18 17:31 08/13/18 17:31 08/13/18 17:31 08/13/18 17:31 08/13/18 17:31 Oxygen Flow Rate (L/min) 2 Oxygen Delivery Method Room Air Weight: 177 lb 14.609 oz Body Mass Index (BMI) 25.5 Intake and Output for Last 24 Hours Microbiology Past 72 Hours 08/11/18 13:43 Gram Stain - Final Wound - Heel Right Wound Culture - Final Laboratory Tests Past 24 Hrs WBC 5.1 RBC 3.09 L Hgb 9.9 L Hct 31.2 L MCV 101.0 H MCH 32.0 MCHC 31.7 L RDW 13.0 RDW Differential 46.5 H POC Glucose POC Glucose 223 H 94 117 H Assessment/Plan All Active Problems (Last Reviewed 08/13/18 @ 10:19 by Fernando Patterson MD) Acute encephalopathy (Acute) Osteomyelitis (Acute) Non-STEMI (non-ST elevated myocardial infarction) (Acute) Abnormal EKG (Acute) 82-year-old gentleman who is non-ambulatory, paraplegic, he has developed osteomyelitis bilateral calcaneus in addition to a pressure decubitus wound. He is previously in 2013 had a failed endovascular attempt at revascularization of his left lower extremity. Unfortunately his lower extremities are no longer of use and provide him increased risk secondary to ongoing infection. Based upon the patient's presentation if it appeared to be unlikely that he will be able to resolve these decubitus ulcerations particularly secondary to his lack of mobility. I am not recommending at this point further vascular attempts. I have suggested to the patient that he may indeed be a candidate for major amputation of bilateral lower extremities. The patient clearly is not in favor of this at this time. I have also discussed this recommendation with . Patient will consider his treatment options. The patient clearly is at increased operative risk secondary to his NSTEMI and additional medical comorbidities. Would consider possible plastics referral, or orthopedic referral or tertiary referral if the patient would want to consider major amputation. I appreciate the opportunity of assisting with surgical care. Jose Lagos M.D., F.A.C.S. 08/14/18 0532 <Electronically signed by Jose Lagos MD> Date Jose Lagos MD Cosigner Signature (if applicable): Date CC: dAela Bradley MD; Josette Melendez MD; Vicente Quintana DPM; Jose Lagos MD; Jose Robert MD Signed BEDSIDE GLUCOSE Collected: 08/13/2018 Status: F Source: [place] 10:51 PM [facility] REPOSITORY TYPE CODE TESTS RESULT OUT OF REFERENCE UNITS RANGE LAB L501.080 70-110 mg/dL High BEDSIDE GLU 160 Result Comment: MANAGEMENT OF PATIENT CARE PER NURSING PROTOCOL Performed By: #### L501.080 #### [facility] Point of Care [address] [place] [address] LOWER EXT ARTERIAL Observed: 08/13/2018 Status: F Source: [place] STUDY 7:09 PM [facility] REPOSITORY [facility] Cardiovascular Services [address] [facility] [place] [address] 08/13/18 1905 MR#: [id number] Acct: [id number] Name: REGINA ROJAS Rep #: [id number] : 1935 82 From: Jose Lagos MD Attending Dr: Ashly Huang MD Status: ADM IN Ordering Dr: Date: 08/13/18 Location: U Sex: M C Admitted: 08/11/18 Arterial Study - Arterial Study Arterial Study: Bilateral lower extremity noninvasive arterial exam at rest Patient with bilateral calcaneal ulcerations and osteomyelitis and paraplegia Right lower extremity The right low thigh index is 1.58. No additional large vessel indices can be obtained secondary to artificially elevated systolic pressures consistent with medial calcification of vessel wall. Right digital index is markedly abnormal at 0.27. The right posterior tibial does not demonstrate a waveform. The right dorsalis pedis is monophasic. Volume pulse recordings are diminished at the low thigh calf and they are markedly diminished at the ankle. Digital waveforms are present but depressed. Left lower extremity The left low thigh index is 1.49. Again the left calf PT and DP and disease cannot be obtained secondary to artificially elevated systolic pressure greater than 254. The left digital index is 0.42. The left posterior tibial is biphasic with a dorsalis pedis monophasic Doppler waveform. Volume pulse recordings demonstrate diminished waveforms at the low thigh calf and ankle area and markedly diminished digital waveforms. Impression Findings are consistent with critical ischemia of the right lower extremity. Multi segmental vascular occlusive disease is present. Occlusion of the right posterior tibial is suspected. Diffuse calcification of vessel montejo noted throughout the large vessels. Left lower extremity Findings suggest medial calcification of vessel wall. Ankle- brachial indices could not be obtained. Doppler waveforms are markedly abnormal particularly involving the dorsalis pedis. Findings are consistent with rest pain and multi segmental occlusive disease. Jose Laogs M.D., .A.C.S. 08/13/181908 <Electronically signed by Jose Lagos MD> Date Jose Lagos MD CC: Ashly Huang MD; Josette Melendez MD Date Dictated: 08/13/181904 Date Transcribed: 08/13/181904 Cotton Seed Culler: MAXIMO Signed 12 LEAD ELECTROCARDIOGRAM Observed: 08/13/2018 Status: F Source: [place] 3:25 PM [facility] REPOSITORY [facility] Cardiovascular Services [address] [place] [id number] 12 Lead EKG 08/10/182054 MR#: [id number] Acct: [id number] Name: REGINA ROJAS Rep #: [id number] : 1935 82 From: Haider Gomez MD Attending Dr: Ashly Huang MD Status: ADM IN Ordering Dr: Vicente Stoll MD Date: 08/10/18 Location: [facility] Sex: M C Admitted: 08/11/18 Test Reason : ALT LOC Blood Pressure : / mmHG Vent. Rate : 072 BPM Atrial Rate : 072 BPM P-R Int : 206 ms QRS Dur : 088 ms QT Int : 392 ms P-R-T Axes : 066 -01 040 degrees QTc Int : 429 ms Normal sinus rhythm Septal infarct , age undetermined Abnormal ECG Confirmed by HAIDER GOMEZ MD ([id number]), city editor DRE KIRBY ([id number]) on 08/13/2018 3:24:56 PM Referred By: CAROLYN Confirmed By:HAIDER GOMEZ MD 08/13/18 1525 Date Haider Gomez MD CC: Ashly Huang MD; Josette Melendez MD; Vicente Stoll MD Signed CONSULTATION Observed: 08/13/2018 Status: F Source: [place] 12:57 PM [facility] REPOSITORY [facility] Medical Records Department [address] [place] [address] Consultation 08/13/18 1248 MR#: [id number] Acct: [id number] Name: REGINA ROJAS Rep #: [id number] : 1935 82 From: Jose Robert MD PCP: Josette Melendez MD Status: ADM IN Y Location: [place] [address] Problem List (1) Osteomyelitis Status: Acute Reason for Consult: osteo Consulted by: Dr. Huang History of Present Illness: The patient is a 82 year old M with paraplegia due to transverse myelitis and h/o nocardia infection on detention bactrim 2ndary prophylaxis who presented 08/11 with 3-4 days of confusion, fever, chills, unusual movements. A week ago noticed cloudy/foul smelling urine with straight cath. He reuses catheters at home, soaks them in vinegar in between use. Has been getting frequent uti. Admitted here in June, given cipro, Ucx with GNR. Reports both heels became red/bruised that admit. Had citrobacter (+) ucx a week after discharge, then grew enterococcus when checked 08/05. He was started on macrobid at [facility] but worsened soon after starting. Taken to ED, given levaquin and vanc, now on meropenem. 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 Podiatry following. Fever improved, mental status improved. Ucx with citrobacter. Wound cx with burkholderia. Full ROS Performed and neg except as noted above. 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 Allergies/Adverse Reactions: Allergies Cephalosporins Allergy (Intermediate, Verified 08/10/18 20:29) Laryngospasms Penicillins Allergy (Intermediate, Verified 08/10/18 20:29) Rash IVP DYE Allergy (Uncoded 07/05/18 10:04) Rash Home Medications: Ambulatory Orders Medication Instructions Recorded Multivitamins,Ther W-Minerals 1 tab PO DAILY@1700 #30 tab 09/18/14 [Multivitamin With Minerals] - Social History SMOKING STATUS:: Never smoker Vital Signs Temp Pulse Resp BP Pulse Ox 97.9 F 70 16 168/66 H 94 08/13/18 08:10 08/13/18 11:18 08/13/18 08:10 08/13/18 08:10 08/13/18 08:10 Oxygen Flow Rate (L/min) 2 Oxygen Delivery Method Nasal Cannula Weight: 80.7 kg Body Mass Index (BMI) 25.5 Microbiology Past 72 Hours 08/11/18 13:43 Gram Stain - Final Wound - Heel Right Wound Culture - Final Laboratory Tests Past 24 Hrs WBC 5.1 RBC 3.09 L Hgb 9.9 L Hct 31.2 L MCV 101.0 H MCH 32.0 MCHC 31.7 L RDW 13.0 WBC RBC Hgb Hct MCV MCH MCHC RDW RDW Differential Plt Count MPV Sodium Potassium Chloride Carbon Dioxide - Other Studies Radiology: [] reviewed Other Studies: [] Route of nutrition/ use of supplements: [] Nutritional Intake: [] IV Site: [] Wheeler Catheter: [] - Physical Exam General: Alert, Oriented x3, Cooperative, No apparent distress HEENT: Atraumatic, PERRLA, EOMI Neck: Supple, No Nodes Lungs: Clear to auscultation, Normal air movement Cardiovascular: Regular rate, Regular Rhythm, Murmur Abdomen: Soft, Non Tender, Non-Distended Extremities: No edema Skin: Ulcer/ Wound - bilat heels IV Site: Peripheral, without redness Musculoskeletal: No Tenderness to Palpation of Joints or Extremities Neurological: Cranial nerves II-XII grossly intact, - - paraplegia - Assessment/Plan Antibiotics: [] Assessment/Plan: [] Active and Suspected Problems (Last Reviewed 08/13/18 @ 10:19 by Fernando Patterson MD) Acute encephalopathy (Acute) Citrobacter pyelonephritis - on meropenem. Reports rash/hives with PCN. Not sure about cephalosporins. Improved. Fever resolved. Bilateral heel osteo - Dr. Quintana following. Wound cx with burkholderia. Will need 6 week course of abx, may be able to use PO abx given susceptibility to cipro. h/o nocardia - bactrim currently on hold, may need to restart Will follow, thank you. 08/13/18 1257 <Electronically signed by Jose Robert MD> Date Jose Robert MD Cosigner Signature (if applicable): Date CC: Adela Bradley MD; Josette Melendez MD; Vicente Quintana DPM; Jose Robert MD Signed BEDSIDE GLUCOSE Collected: 08/13/2018 Status: F Source: [place] 11:33 AM [facility] REPOSITORY TYPE CODE TESTS RESULT OUT OF REFERENCE UNITS RANGE LAB L501.080 70-110 mg/dL High BEDSIDE GLU 223 Result Comment: MANAGEMENT OF PATIENT CARE PER NURSING PROTOCOL Performed By: #### L501.080 #### [facility] Point of Care [address] [facility]. [place], [place] [address] AMMONIA Collected: 08/13/2018 Status: F Source: [place] 10:57 AM [facility] REPOSITORY TYPE CODE TESTS RESULT OUT OF RANGE REFERENCE UNITS LAB L503.5510 11-32 umol/L Normal AMMONIA 31.0 Performed By: #### L503.5510 #### [facility] [address] [place], [place], [address] BEDSIDE GLUCOSE Collected: 08/13/2018 Status: F Source: [place] 6:34 AM [facility] REPOSITORY TYPE CODE TESTS RESULT OUT OF RANGE REFERENCE UNITS LAB L501.080 70-110 mg/dL Normal BEDSIDE GLU 94 Result Comment: Repeat Test MANAGEMENT OF PATIENT CARE PER NURSING PROTOCOL Performed By: #### L501.080 #### [facility] Point of Care [address] [place], [place] [address] CBC-COMPLETE BLOOD CNT Collected: 08/13/2018 Status: F Source: [place] NO DIFF 5:10 AM [facility] REPOSITORY TYPE CODE TESTS RESULT OUT OF RANGE REFERENCE UNITS LAB L100.1000 4.4-11.0 K/mm3 Normal WBC 5.1 LAB L100.1200 4.6-6.2 M/mm3 Low RBC 3.09 LAB L100.1300 13.0-16.5 g/dl Low HGB 9.9 LAB L100.1400 40-54 % Low HCT 31.2 LAB L100.1500 80-94 fL High MCV 101.0 LAB L100.1600 27.0-32.0 pg Normal MCH 32.0 LAB L100.1700 32-36 g/gl Low MCHC 31.7 LAB L100.1810 11.6-14.6 % Normal RDW CV 13.0 LAB L100.1820 35.1-43.9 fl High RDW SD 46.5 LAB L100.1900 150-450 K/mm3 Normal PLT 164 LAB L100.2000 6.2-12.0 fl Normal MPV 9.8 Performed By: #### L100.0500 #### [facility] [address] [place], [place], [id number] BASIC METABOLIC Collected: 08/13/2018 Status: F Source: [place] PROFILE (BMP) 5:10 AM [facility] REPOSITORY TYPE CODE TESTS RESULT OUT OF RANGE REFERENCE UNITS LAB L501.0100 74-106 mg/dL Normal GLU 89 Result Comment: Please note revised GLUCOSE reference range effective 2017. LAB L501.1000 7-18 mg/dL Normal BUN 14 LAB L501.1100 0.70-1.30 mg/dL Low CREAT,SERUM 0.63 Result Comment: The validity of the calculated GFR AND GFRAA in patients over 70 years has not been determined. Clinical correlation is essential. LAB L501.1110 >60 mL/min Normal EST GFR 131 Result Comment: Non- GFR Calc LAB L501.1115 >60 mL/min Normal EST GFR - AA 158 Result Comment: GFR Calc LAB L501.1255 ml/min Normal Estimated CRCL 60.83 LAB L501.1300 10-20 RATIO High BUN/CRE 22.3 LAB L501.2200 8.5-10 mg/dL Normal .1 CA 8.5 LAB L501.5300 136-14 mmol/L Normal 5 NA 145 LAB L501.5600 3.5-5. mmol/L Normal 1 K 3.7 LAB L501.5900 98-107 mmol/L High CL 109 LAB L501.6100 21.0-3 mmol/L Normal 2.0 CO2 30.0 LAB L501.6200 5-15 Normal GAP 6 Performed By: #### L500.2500 #### [facility] [address] [facility] [place], [address] MAGNESIUM Collected: 08/13/2018 Status: F Source: [place] 5:10 AM [facility] REPOSITORY Order Comment: Comments: add to morning labs if possible TYPE CODE TESTS RESULT OUT OF RANGE REFERENCE UNITS LAB L501.5200 1.6-2.6 mg/dL Normal MG 2.2 Performed By: #### L501.5200 #### [facility] [address] [facility] [place], [address] BEDSIDE GLUCOSE Collected: 08/12/2018 Status: F Source: [place] 10:36 PM [facility] REPOSITORY TYPE CODE TESTS RESULT OUT OF REFERENCE UNITS RANGE LAB L501.080 70-110 mg/dL High BEDSIDE GLU 117 Result Comment: MANAGEMENT OF PATIENT CARE PER NURSING PROTOCOL Performed By: #### L501.080 #### [facility] Point of Care [address] [facility] [place] [address] VANCOMYCIN, TROUGH Collected: 08/12/2018 Status: F Source: [place] LEVEL 10:30 PM [facility] REPOSITORY Order Comment: Comments: DRAW TROUGH 30 MIN PRIOR TO DOSE AT 23:00 Time Medication is to be Given? 2300 TYPE CODE TESTS RESULT OUT OF RANGE REFERENCE UNITS LAB L501.8820 5.0-15.0 ug/mL Normal VANCO, TROUGH 6.6 Result Comment: VANCOMYCIN STANDARED DRUG THERAPY TROUGH LEVEL: 5.0 - 15.0 mg/L VANCOMYCIN HIGH INTENSITY THERAPY TROUGH LEVEL: 15.0 - 20.0 mg/L High Intensity therapy recommended for serious life threatening infections include: - Meningitis -Endocarditis -Pneumonia (Ventilator/Healtcare Associated) -Sepsis PLEASE CONTACT PHARMACY SERVICES (#[id number]) FOR INTERPRETATION OF RESULTS. Performed By: #### L501.8820 #### [facility] [address] [facility] [place], [address] BRAIN/HEAD WITHOUT Observed: 08/12/2018 Status: F Source: [place] CONTRAST 6:29 PM [facility] REPOSITORY [facility] Imaging Services [address] [facility] [place] [address] Brain/Head without Contrast MR#: [id number] Acct: [id number] Name: Regina Rojas Rep #: [id number] : 1935 M 82 From: Jackelin Ramachandran MD PCP: Josette Melendez MD Status: ADM IN Study: Brain/Head without Contrast Date of Exam: 08/12/18 Exam# [id number] Ordering Dr: Nadira Goldberg NAILHEAD PUNCHER-Mateusz STUDY: CT BRAIN WITHOUT CONTRAST REASON FOR EXAM: Male, 82 years old. Altered mental status. RADIATION DOSAGE (If Supplied By Facility): CTDIvol = ( 44.99 ) mGy, DLP = ( 1558.47 ) mGycm TECHNIQUE: Transaxial CT imaging of the brain was performed without administration of intravenous contrast material. Individualized dose optimization techniques were used for this CT. COMPARISON: 11/10/2016. FINDINGS: There is no intracranial mass, hemorrhage, or acute territorial infarct. 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 Ventriculostomy catheter terminates in the right lateral ventricle. Ventricles are normal in size. Normal soft tissue structures. Normal calvarium. Normal size ventricles and extra-axial spaces for the patient's age. Normal white matter tracts of the cerebral hemispheres. Normal basal ganglia and thalami. Normal brainstem. Normal cerebellum. There is no intracranial hemorrhage. There are no findings of an acute ischemic infarction. Normal visualized paranasal sinuses. CT/Brain/Head without Contrast IMPRESSION: 1. No acute process. 2. Chronic right parietal infarct. Electronically Signed: Jackelin Ramachandran MD at 20:43 EDT Tel , Service support , CC: EYAD Goldberg; Josette Melendez MD Cotton Seed Culler: Signed BEDSIDE GLUCOSE Collected: 08/12/2018 Status: F Source: [place] 5:24 PM [facility] REPOSITORY TYPE CODE TESTS RESULT OUT OF RANGE REFERENCE UNITS LAB L501.080 70-110 mg/dL Normal BEDSIDE GLU 102 Result Comment: MANAGEMENT OF PATIENT CARE PER NURSING PROTOCOL Performed By: #### L501.080 #### [facility] Point of Care [address] [place] [address]. [place] [address] CONSULTATION Observed: 08/12/2018 Status: F Source: [place] 4:12 PM [facility] REPOSITORY [facility] Medical Records Department [address] [place] [id number] Consultation 08/11/18 1622 MR#: [id number] Acct: [id number] Name: Regina Rojas Rep #: [id number] : 1935 82 From: Vicente Quintana DPM PCP: Al PIPER,Josette Status: ADM IN Y [id number] ADDENDUM by Vicente Quintana DPM on 08/12/18 at 1612 Code Visit Reviewed xrays as well as bilateral ankle MRI results: There is noted bone marrow edema to the right calcaneus as well as left calcaneus and lateral malleolus consistent with osteomyelitis - recommend infectious disease consultation. 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 Patient's was at bedside and history was obtained by both patient and his , along with chart review. They relates the pressure ulcers to the heels started early June 2018 during his last admission, states heels were not offloaded and the pressure ulcers started. Patient was then transferred to [facility], and has been receiving wound care - Santyl with daily dressing changes. Patient has offloaded foam boots which he has been using. They relate nurse at [facility] recommended second opinion, but they had difficult time getting into the wound center, so saw Dr. Bryne 1 week ago. They relate he puts weight on his heels when standing during physical therapy. He relates to history of peripheral vascular disease, states he has been seen by Dr. Jose Lagos in the past, many years ago. States there was attempts to places stents in lower extremity arteries but unsuccessful at that time, and states he has not seen vascular surgery since. Patient current admission is for recurrent UTI, relates this is the third UTI recently. He has no pain to the heels at this time. He is resting in bed with dressings in place and foam heel offloading boots on. WBC WNL, patient afebrile at this time. 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 Medical History: Medical History (Last Reviewed 09/15/18 @ 03:04 by Dany Kwon MD) Non-STEMI (non-ST elevated myocardial infarction) (Acute) I21.4 HTN (hypertension) (Chronic) I10 PAD (peripheral artery disease) (Chronic) I73.9 Paraplegia (Chronic) G82.20 due to transverse myelitis Allergies Cephalosporins Allergy (Intermediate, Verified 08/10/18 20:29) Laryngospasms Penicillins Allergy (Intermediate, Verified 08/10/18 20:29) Rash IVP DYE Allergy (Uncoded 07/05/18 10:04) Rash Home Medications: Ambulatory Orders Medication Instructions Recorded Multivitamins,Ther W-Minerals 1 tab PO DAILY@1700 #30 tab 09/18/14 [Multivitamin With Minerals] Surgical History: - - Laminectomy 2006, 2007. 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 Psychiatric History: No pertinent psych hx, - - he is very angry now and his attributes this to the steroids....she states it makes him mean. 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 Lives: [facility] Smoking Status: Never smoker - *Family History Maternal History Items: - - , depression Paternal History Items: - - Offspring History Items: - - 2 children, 4 grand children, 1 great grandchild, all in good health Review of Systems Constitutional: Denies: Chills, Fever Gastrointestinal: Denies: Nausea, Vomiting Skin: Reports: Wounds Neurological: Reports: Confusion - Relates to some altered mental status changes with recent UTI, - - Paraplegia Patient Problems: Active and Suspected Problems (Last Reviewed 08/11/18 @ 03:04 by Dany Kwon MD) Acute encephalopathy (Acute) - Physical Exam General: Alert, Oriented x3, Cooperative, No apparent distress, - - Resting comfortably in bed. Extremities: No cyanosis, Capillary Refill Less than 3 Seconds, No Calf Tenderness, - - No evidence of acute ischemia to the foot or ankle bilateral, temperature within normal limits bilateral foot/ankle. Skin: Ulcer/ Wound - Dry eschar to the posterior heels bilateral, as well as to the lateral ankle on the right and posterior lateral distal proximal ankle on the left, eschars are dry and intact, margins intact and viable in appearance, there is some very slight drainage which is bloody to the proximal lateral right ankle from a new superficial blister. There is noted erythema to the lateral right ankle and heel, none on the left foot or ankle, there is no streaking, no visible abscess, no maloder, no fluctuance, no crepitus bilateral foot/ankle. Skin thin and atrophic bilateral, no hair is seen bilateral foot/ankle. Musculoskeletal: No Tenderness to Palpation of Joints or Extremities - of the foot or ankle bilateral. Muscle strength significantly diminished/absent to the foot/ankle bilateral. Sensation significantly diminished/absent to the foot/ankle. Psych/Mental Status: Normal Affect, Alert and oriented to time, place, person, mood and affect Vital Signs Temp Pulse Resp BP Pulse Ox 98.3 F 73 16 112/58 L 97 08/11/18 14:38 08/11/18 14:38 08/11/18 14:38 08/11/18 14:38 08/11/18 14:38 Oxygen Flow Rate (L/min) 2 Oxygen Delivery Method Nasal Cannula Weight: 80.7 kg Body Mass Index (BMI) 25.5 Intake and Output for Last 24 Hours Intake Total 1110 / 1110 Output Total 700 / 700 Balance 410 / 410 Microbiology Past 72 Hours 08/11/18 13:43 Gram Stain - Final Wound - Heel Right Laboratory Tests Past 24 Hrs Sodium Potassium Chloride Carbon Dioxide Anion Gap BUN POC Glucose POC Glucose 114 H 103 Assessment/Plan All Active Problems (Last Reviewed 08/11/18 @ 03:04 by Dany Kwon MD) Acute encephalopathy (Acute) Non-STEMI (non-ST elevated myocardial infarction) (Acute) Abnormal EKG (Acute) Decubitus pressure ulcerations bilateral heel, lateral right ankle and lateral distal left leg - unstagable Cellulitis right heel/lateral ankle History of peripheral vascular disease A culture was obtained and sent to microbiology right lateral ankle. The patient is already on IV antibiotics for his UTI. Continue to follow cultures and adjust antibiotics as needed. Right foot/ankle/ and tib/fib as well as left foot and tib/fib xrays obtained and reviewed. MRIs were also ordered for further evaluation. Noninvasive lower extremity arterial study was ordered for further evaluation of lower extremity arterial flow. There is no evidence of acute ischemia at this time. Santyl with overlying gauze dressing changes were ordered. Keep pressure off of wound sites at all times - using offloading foam boots as wells pillows. No weightbearing to heels bilateral. Discharge planning: Pending further workup, however would recommend patient follow up at wound center once discharged from on going wound care. Podiatry will continue to follow, thank you for consultation. 08/11/18 1642 <Electronically signed by Vicente Quintana DPM> Date Vicente Quintana DPM Cosigner Signature (if applicable): Date CC: Josette Melendez MD; Vicente Quintana DPM Signed BEDSIDE GLUCOSE Collected: 08/12/2018 Status: F Source: [place] 11:27 AM [facility] REPOSITORY TYPE CODE TESTS RESULT OUT OF RANGE REFERENCE UNITS LAB L501.080 70-110 mg/dL Normal BEDSIDE GLU 108 Result Comment: MANAGEMENT OF PATIENT CARE PER NURSING PROTOCOL Performed By: #### L501.080 #### [facility] Point of Care [address] [place] [address] LOWER EXT JOINT ONLY Observed: 08/12/2018 Status: F Source: [place] (ROUTINE) 8:55 AM [facility] REPOSITORY [facility] Imaging Services [address] [place] [address] Lower Ext Joint Only (Routine) MR#: [id number] Acct: [id number] Name: Regina Rojas Rep #: [id number] : 1935 M 82 From: Gigi Cook MD PCP: Josette Melendez MD Status: ADM IN Study: Lower Ext Joint Only (Routine) Date of Exam: 08/12/18 Exam# [id number] Ordering Dr: Vicente Quintana DPM STUDY: MRI RIGHT ANKLE WITHOUT CONTRAST REASON FOR EXAM: Male, 82 years old. Heel ulcer. Paraplegia. TECHNIQUE: Standardized fat and water weighted pulse sequences were obtained in all 3 orthogonal planes. COMPARISON: X-ray August 11, 2018. FINDINGS: There is skin thickening with focal defect consistent with ulcer. There is marrow edema of the posterior inferior calcaneus consistent with contiguous spread osteomyelitis, series 7 images 5/30 through 8. There is mild marrow edema of the lateral malleolus, series 7 image 14/30. Normal posterior tibialis tendon. There is accessory navicular incorporated into the distal tendon. Normal flexor digitorum longus tendon. Normal flexor hallucis longus tendon. Normal peroneus longus and brevis tendons. Normal tibialis anterior tendon. Normal extensor hallucis longus tendon. Normal extensor digitorum longus tendons. Normal Achilles tendon and teno-osseous insertion. There is enthesophyte at the posterior calcaneus adjacent to the insertion. Normal plantar fascia. Normal plantar calcaneal tubercles. Normal intrinsic muscles of the rearfoot. Normal distal tibiofibular syndesmotic ligamentous complex. Normal lateral ligamentous complex. Normal subtalar ligaments and sinus tarsi. Normal deltoid ligamentous complexes. Normal plantar calcaneonavicular (spring) ligament. Normal tibiotalar articulation. Normal talar dome. Normal subtalar articulations. Normal talonavicular articulation. Normal calcaneocuboid articulation. Normal navicular-cuneiform articulations. 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 Mild edema with possible osteomyelitis of the lateral malleolus. Electronically Signed: Gigi Cook MD at 13:54 EDT , Service support , CC: Josette Melendez MD; Vicente Quintana DPM Cotton Seed Culler: Signed BEDSIDE GLUCOSE Collected: 08/12/2018 Status: F Source: [place] 6:44 AM [facility] REPOSITORY TYPE CODE TESTS RESULT OUT OF RANGE REFERENCE UNITS LAB L501.080 70-110 mg/dL Normal BEDSIDE GLU 95 Result Comment: MANAGEMENT OF PATIENT CARE PER NURSING PROTOCOL Performed By: #### L501.080 #### [facility] Point of Care [address] [place] [address] BEDSIDE GLUCOSE Collected: 08/11/2018 Status: F Source: [place] 10:31 PM [facility] REPOSITORY TYPE CODE TESTS RESULT OUT OF RANGE REFERENCE UNITS LAB L501.080 70-110 mg/dL Normal BEDSIDE GLU 99 Result Comment: MANAGEMENT OF PATIENT CARE PER NURSING PROTOCOL Performed By: #### L501.080 #### [facility] Point of Care [address] [place] [address] BEDSIDE GLUCOSE Collected: 08/11/2018 Status: F Source: [place] 4:59 PM [facility] REPOSITORY TYPE CODE TESTS RESULT OUT OF REFERENCE UNITS RANGE LAB L501.080 70-110 mg/dL High BEDSIDE GLU 115 Result Comment: MANAGEMENT OF PATIENT CARE PER NURSING PROTOCOL Performed By: #### L501.080 #### [facility] Point of Care [address] [place] [address] FOOT 2 VIEWS Observed: 08/11/2018 Status: F Source: [place] 2:53 PM [facility] REPOSITORY [facility] Imaging Services [address] [facility] [place] [address] Foot 2 Views MR#: [id number] Acct: [id number] Name: Regina Rojas Rep #: [id number] : 1935 M 82 From: Jackelin Ramachandran MD PCP: Josette Melendez MD Status: ADM IN Study: Foot 2 Views Date of Exam: 08/11/18 Exam# [id number] Ordering Dr: Vicente Quintana DPM STUDY: X-RAY - LEFT FOOT CLINICAL: Male, 82 years old. Heel ulcers. TECHNIQUE: 2 view(s) of the foot. COMPARISON: None. FINDINGS: There is no fracture or dislocation. Joint spaces are well- maintained. No destructive bone changes are present. Extensive atherosclerotic vascular calcification is noted, consistent with diabetes and/or renal failure. There is marked dorsal soft tissue swelling. RAD/Foot 2 Views IMPRESSION: Soft tissue swelling. No destructive bone changes are seen. Electronically Signed: Jackelin Ramachandran MD at 20:04 EDT Tel , Service support , CC: Josette Melendez MD; Vicente Quintana DPM Cotton Seed Culler: Signed FOOT 2 VIEWS Observed: 08/11/2018 Status: F Source: [place] 1:48 PM [facility] REPOSITORY [facility] Imaging Services [address] [address] Foot 2 Views MR#: [id number] Acct: [id number] Name: Regina Rojas Rep #: [id number] : 1935 82 From: Jackelin Ramachandran MD PCP: Josette Melendez MD Status: ADM IN Study: Foot 2 Views Date of Exam: 08/11/18 Exam# [id number] Ordering Dr: Vicente Quintana DPM STUDY: X-RAY - RIGHT FOOT CLINICAL: Male, 82 years old. Heel ulcers. TECHNIQUE: view(s) of the foot. COMPARISON: None. FINDINGS: There is no fracture or dislocation. Joint spaces are well- maintained. No destructive bone lesions. There is marked dorsal soft tissue swelling. There is mild plantar swelling at the level of the metatarsals. There is extensive atherosclerotic vascular calcification consistent with diabetes and/or renal failure. RAD/Foot 2 Views IMPRESSION: Soft tissue swelling. No osseous abnormality. Electronically Signed: Jackelin Ramachandran MD at 20:05 EDT Tel , Service support , CC: Josette Melendez MD; Vicente Quintana DPM Cotton Seed Culler: Signed LOWER EXT JOINT ONLY Observed: 08/11/2018 Status: F Source: [place] (ROUTINE) 1:48 PM [facility] REPOSITORY [facility] Imaging Services [address] [place] [address] Lower Ext Joint Only (Routine) MR#: [id number] Acct: [id number] Name: Regina Rojas Rep #: [id number] : 1935 M 82 From: Gigi Cook MD PCP: Josette Melendez MD Status: ADM IN Study: Lower Ext Joint Only (Routine) Date of Exam: 08/12/18 Exam# [id number] Ordering Dr: Vicente Quintana DPM STUDY: MRI LEFT ANKLE WITHOUT CONTRAST REASON FOR EXAM: Male, 82 years old. Heel ulcer. Paraplegia. TECHNIQUE: Standardized fat and water weighted pulse sequences were obtained in all 3 orthogonal planes. COMPARISON: X-ray August 11, 2018 FINDINGS: There is a posterior skin thickening and subcutaneous edema. Normal posterior tibialis tendon. There is accessory navicular incorporated into the distal tendon. Normal flexor digitorum longus tendon. Normal flexor hallucis longus tendon. Normal peroneus longus and brevis tendons. Normal tibialis anterior tendon. Normal extensor hallucis longus tendon. Normal extensor digitorum longus tendons. Normal Achilles tendon and teno-osseous insertion. There is enthesophyte of the posterior calcaneus adjacent to the insertion. There is mild marrow edema signal hyperintensity in the lateral side of the calcaneus, series 5 image 17/. There is mild marrow edema of the lateral malleolus of the distal fibula, series 5 images through Normal plantar fascia. Normal plantar calcaneal tubercles. Normal intrinsic muscles of the rearfoot. Normal distal tibiofibular syndesmotic ligamentous complex. Normal lateral ligamentous complex. Normal subtalar ligaments and sinus tarsi. Normal deltoid ligamentous complexes. Normal plantar calcaneonavicular (spring) ligament. Normal tibiotalar articulation. Normal talar dome. Normal subtalar articulations. Normal talonavicular articulation. Normal calcaneocuboid articulation. Normal navicular-cuneiform articulations. MRI/Lower Ext Joint Only (Routine) IMPRESSION: Mild marrow edema of the calcaneus and lateral malleolus with osteomyelitis versus stress injury. Electronically Signed: Gigi Cook MD at 13:44 EDT , Service support , CC: Josette Melendez MD; Vicente Quintana DPM [employer] Culler: Signed Observed: 08/11/2018 Status: F Source: [place] CULTURE, DEEP WOUND 1:43 PM [facility] REPOSITORY Gram Stain Gram Stain No White Blood Cells No organisms seen Wound Culture ORGANISM 1: Burkholderia cepacia Amount Growth Rare Burkholderia cepacia: REACTION Amikacin $ <=2 S Aztreonam $$$ 32 R Cefepime $ 2 S Ceftazidime *NF 4 S Ceftriaxone $ >=64 R Ciprofloxacin $ 0.5 S Gentamicin $ <=1 S Imipenem *NF 1 S Levofloxacin $ 1 S Meropenem $ 1 S Piperacillin/Tazobactam $$ 16 S Tobramycin $ <=1 S Trimethoprim/Sulfametho $ >=320 R (NF) indicates non-formulary drug at [facility]. Approval by Infectious Disease Specialist required before non-formulary drugs may be ordered and/or dispensed. Cult, Anaerobic No anaerobic bacteria isolated. Performed By: #### M100.1500 #### [facility] [address] [place], [address] BEDSIDE GLUCOSE Collected: 08/11/2018 Status: F Source: [place] 11:24 AM [facility] REPOSITORY TYPE CODE TESTS RESULT OUT OF REFERENCE UNITS RANGE LAB L501.080 70-110 mg/dL High BEDSIDE GLU 114 Result Comment: MANAGEMENT OF PATIENT CARE PER NURSING PROTOCOL Performed By: #### L501.080 #### [facility] Point of Care [address] [place] [address] M R STAPH AUREUS Collected: 08/11/2018 Status: F Source: [place] DNA BY PCR 9:05 AM [facility] REPOSITORY TYPE CODE TESTS RESULT OUT OF RANGE REFERENCE UNITS LAB L8200.1100 Negative Normal MRSA Negative RESULT Performed By: #### L8200.1000 #### [facility] [address] [place], [address] MRSA WOUND DNA BY Collected: 08/11/2018 Status: F Source: [place] PCR 9:05 AM [facility] REPOSITORY TYPE CODE TESTS RESULT OUT OF RANGE REFERENCE UNITS LAB L8200.1100 Negative Normal MRSA Negative RESULT LAB L8200.1150 Negative Normal SA RESULT NEGATIVE Performed By: #### L8200.1075 #### [facility] [address] [place], [address] BEDSIDE GLUCOSE Collected: 08/11/2018 Status: F Source: [place] 6:56 AM [facility] REPOSITORY TYPE CODE TESTS RESULT OUT OF RANGE REFERENCE UNITS LAB L501.080 70-110 mg/dL Normal BEDSIDE GLU 103 Result Comment: MANAGEMENT OF PATIENT CARE PER NURSING PROTOCOL Performed By: #### L501.080 #### [facility] Point of Care [address] [place] [address] BASIC METABOLIC Collected: 08/11/2018 Status: F Source: [place] PROFILE (BMP) 5:15 AM [facility] REPOSITORY TYPE CODE TESTS RESULT OUT OF RANGE REFERENCE UNITS LAB L501.0100 74-106 mg/dL Normal GLU 95 Result Comment: Please note revised GLUCOSE reference range effective 2017. LAB L501.1000 7-18 mg/dL High BUN 23 LAB L501.1100 0.70-1.30 mg/dL Normal CREAT,SERUM 0.74 Result Comment: The validity of the calculated GFR AND GFRAA in patients over 70 years has not been determined. Clinical correlation is essential. LAB L501.1110 >60 mL/min Normal EST GFR 108 Result Comment: Non- GFR Calc LAB L501.1115 >60 mL/min Normal EST GFR - AA 130 Result Comment: GFR Calc LAB L501.1255 ml/min Normal Estimated CRCL 60.83 LAB L501.1300 10-20 RATIO High BUN/CRE 31.0 LAB L501.2200 8.5-10 mg/dL Normal .1 CA 8.5 LAB L501.5300 136-14 mmol/L Normal 5 NA 142 LAB L501.5600 3.5-5. mmol/L Normal 1 K 4.6 LAB L501.5900 98-107 mmol/L Normal CL 104 LAB L501.6100 21.0-3 mmol/L Normal 2.0 CO2 32.0 LAB L501.6200 5-15 Normal GAP 6 Performed By: #### L500.2500 #### [facility] [address] [facility] [place], [address] HISTORY AND PHYSICAL Observed: 08/11/2018 Status: F Source: [place] EXAM 3:17 AM [facility] REPOSITORY [facility] Medical Records Department [address] [facility] [place] [place] [address] History and Physical 08/11/18 0032 MR#: [id number] Acct: [id number] Name: Regina Rojas Rep #: [id number] : 1935 82 From: Dany Kwon MD PCP: Josette Melendez MD Status: ADM IN Y Location: [place] [address] Problem List (1) Acute encephalopathy Status: Acute (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 (3) Paraplegia Status: Chronic Comment: due to transverse myelitis History of Present Illness Date of Admission: 08/11/18 Chief Complaint: Altered mental status. The patient is a 82 year old M detention patient with a significant history of CVA, AK, subarachnoid hemorrhage in 2003, transverse myelitis, paraplegia, frequent UTI with multiple organisms, neurogenic bladder who self catheterizes himself who presents with altered mental status. Patient was on Macrobid recently for UTI. At emergency department patient had a temperature of 102.1. His chest x-ray showed mild bibasilar atelectasis or infiltrates with significant improvement from previous exams. He had somewhat abnormal urinalysis. 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 Medical History: Medical History (Last Reviewed 08/11/18 @ 03:04 by Dany Kwno MD) Non-STEMI (non-ST elevated myocardial infarction) (Acute) I21.4 HTN (hypertension) (Chronic) I10 PAD (peripheral artery disease) (Chronic) I73.9 Paraplegia (Chronic) G82.20 due to transverse myelitis Allergies Cephalosporins Allergy (Intermediate, Verified 08/10/18 20:29) Laryngospasms Penicillins Allergy (Intermediate, Verified 08/10/18 20:29) Rash IVP DYE Allergy (Uncoded 07/05/18 10:04) Rash Home Medications: Ambulatory Orders Medication Instructions Recorded Multivitamins,Ther W-Minerals 1 tab PO DAILY@1700 #30 tab 09/18/14 [Multivitamin With Minerals] Surgical History: - - Laminectomy 2006, 2007. 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 Psychiatric History: No pertinent psych hx, - - he is very angry now and his attributes this to the steroids....she states it makes him mean. 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 Lives: [facility] Smoking Status: Never smoker - *Family History Maternal History Items: - - , depression Paternal History Items: - - Offspring History Items: - - 2 children, 4 grand children, 1 great grandchild, all in good health Review of Systems Unable to obtain accurate/complete ROS d/t: Patient is unable to provide history secondary to altered mental status. VTE Information - Inpt Only VTE Present on Admission: No VTE Mechan Device Prophylaxis: None VTE Pharm Prophylaxis ordered?: Yes Patient Problems: Active and Suspected Problems (Last Reviewed 08/11/18 @ 03:04 by Dany Kwon MD) Acute encephalopathy (Acute) - Physical Exam General: Alert, Confused HEENT: Atraumatic, PERRLA, EOMI, Normocephalic Neck: Supple, No JVD, Negative Carotid Bruits Lungs: Clear to auscultation, Normal air movement Cardiovascular: Regular rate, No murmurs Abdomen: Bowel Sounds Present, Soft, Non Tender Extremities: No clubbing Skin: No rashes, No breakdown Musculoskeletal: No Tenderness to Palpation of Joints or Extremities Neurological: Cranial nerves II-XII grossly intact Psych/Mental Status: Normal Affect Vital Signs Temp Pulse Resp BP Pulse Ox 102.1 F H 67 21 H 102/58 L 96 08/10/18 20:53 08/10/18 23:56 08/10/18 23:56 08/10/18 23:56 08/10/18 23:56 Assessment/Plan All Active Problems (Last Reviewed 08/11/18 @ 03:04 by Dany Kwon MD) Acute encephalopathy (Acute) Non-STEMI (non-ST elevated myocardial infarction) (Acute) Abnormal EKG (Acute) The patient is a 82 year old detention patient with a significant history of CVA, AK, subarachnoid hemorrhage in 2003, transverse myelitis, paraplegia, frequent UTI with multiple organisms, neurogenic bladder who self catheterizes himself who presents with altered mental status and found to have a somewhat abnormal urinalysis and a fever of 102.1. Acute encephalopathy likely due to cystitis. His white count is unremarkable Urine culture and blood cultures are pending. Patient received Levaquin at emergency department; continued. Home Macrobid and Bactrim DS held. Chest x-ray showed mild bibasilar atelectasis or infiltrates with significant improvement from previous exams. Unlikely the patient has pneumonia. In any case patient will be started on Levaquin which can cover many lung infections. History of AK Plavix, Coreg, losartan and Lipitor continued Hypertension Blood pressure was within goal at the time of admission Coreg and losartan continued. Chronic pain Schedule morphine continued [place] as needed. Diabetes Blood glucose was within goal at admission Metformin continued. Depression Lexapro continued DVT prophylaxis Subcutaneous heparin. Code Visit Inpatient E AND M: 99349 Init Hosp L3 08/11/18 0317 <Electronically signed by Dany Kwon MD> Date Dany Kwon MD Cosigner Signature: Date (if applicable) CC: Josette Melendez MD; Dany Kwon MD Signed MAGNESIUM Collected: 08/11/2018 Status: F Source: [place] 12:30 AM [facility] REPOSITORY TYPE CODE TESTS RESULT OUT OF RANGE REFERENCE UNITS LAB L501.5200 1.6-2.6 mg/dL Normal MG 2.3 Performed By: #### L501.5200 #### [facility] [address] [facility] [place], [address] EMERGENCY DEPARTMENT Observed: 08/11/2018 Status: F Source: [place] SUMMARY 12:21 AM [facility] REPOSITORY [facility] Medical Records Department [address] [place] [address] Emergency Department Summary 08/10/182038 MR#: [id number] Acct: [id number] Name: Regina Rojas Rep #: [id number] : 1935 82 From: Vicente Stoll MD PCP: Josette Melendez MD Status: REG ER - ER Visit Summary Date of Service: 08/10/18 Chief Complaint: Fever and mental status change History of Present Illness: The patient is a 82 M stents of past medical history of prior subarachnoid hemorrhage, anemia, frequent UTIs and transverse myelitis where he does not ambulate. Patient currently resides at [facility]. He is currently being treated for UTI. He has developed a fever and decreased mental status. He has had this issue before with infections. He was recently hospitalized for a UTI in June. He is accompanied by his who is able to give most history. Currently the patient is on an antibiotic for urinary tract infection. Physical Examination: Older male lying in bed. Vital signs are stable he does have a fever of 101. HEENT exam driving his murmurs. Atraumatic. Neck nontender. No meningismus. Lungs clear to auscultation. Heart regular rhythm no murmur. Chest wall nontender. Abdomen soft nontender. Nondistended. He is moving his upper extremities. His lower extremities are extremely weak. He has had a prior history of transverse myelitis. He has padding on both his feet. Neurologically is awake. He knows day and month. He thought the year was 2001. He thought the president was L[place]. Test Results: CBC shows a white count of 9. Hemoglobin 10.4 which is baseline anemia. Chronic thrombocytopenia also. No bands. Electrolytes show BUN 28 creatinine of 1 consistent with mild dehydration. Liver enzymes slightly elevated. PT/INR normal. UA is normal but he is currently on antibiotics. Lactic acid is 1.5. EKG sinus rhythm rate is 72 no signs of ischemia. Chest x-ray she is bibasilar atelectasis cannot rule out infiltrates as read by the radiologist and reviewed by me. Emergency Department Course and Treatment: Older male with fever and mental status change. Currently being treated for UTI. Started on sepsis protocol. IV fluids. Treatment Plan: Patient was treated with a liter of IV fluids. P.o. Tylenol. Currently I do not have a specific source of infection for his fever. On repeat exam he is doing well at 2340. A long discussion both he and his . He has allergies both penicillin and cephalosporins. I will start him on IV Levaquin to cover both urinary tract infection and/or possible pneumonia. Blood and urine cultures are pending. I have the hospitalist on page for admission to PCU. Disposition: Admission Impression: Acute mental status change Fever of uncertain etiology. Mild dehydration Prior subarachnoid hemorrhage History of transverse myelitis and unable to ambulate This note was generated with Mobile Bridge dictation software. It may contain incorrect words, spelling, and punctuation that were not noted in review of the chart prior to signing ED Disposition - Plan for ED Patient: Chief Complaint: Mental Status Change Referrals: Josette Melendez MD [Primary Care Provider] - What to do if you have Problems For any increased pain, shortness of breath, bleeding, nausea or vomiting, chest pain, or any unexpected problems, contact your Primary Care Provider. Call [facility] ([phone]) or report to the closest Emergency Room. Call 911 if necessary. 08/11/18 0021 <Electronically signed by Vicente Stoll MD> Date Vicente Stoll MD Cosigner Signature (If Indicated): Date CC: Josette Melendez MD URINALYSIS, COMPLETE Collected: 08/10/2018 Status: F Source: [place] 9:20 PM [facility] REPOSITORY Order Comment: Order Date: 08/10/18 How was Urine Obtained? MANAGER IMPLEMENTATION TO SPECIFY TYPE CODE TESTS RESULT OUT OF RANGE REFERENCE UNITS LAB L400.3000 Yellow COLOR Normal Yellow LAB L400.3050 Clear Normal CLARITY Sl. Cloudy LAB L400.3200 Normal mg/dl Normal GLUCOSE, UR Normal LAB L400.3300 Negative mg/dL Normal BILIRUBIN URINE Negative LAB L400.3400 Negative mg/dl High 5 KETONE UR LAB L400.3465 1.002-1.030 Normal SP.GR. DIPSTX 1.015 LAB L400.3550 5.0 - 8.0 pH UR Normal 5.0 LAB L400.3600 Negative mg/dl High PROT 15 DIPSTX LAB L400.3700 Normal mg/dl High 1 UROBILI LAB L400.3750 Negative Normal NITRITE UR Negative LAB L400.3780 Negative /ul Normal OCCULT BLOOD-UR Negative LAB L400.3800 Negative /ul High LEUK ESTERASE 500 LAB L400.4050 0-5 /hpf WBC Normal 0-5 SEEN LAB L400.4100 0-5 /hpf 0 Normal RBC-UA SEEN LAB L400.4150 0-5 /hpf SQUAM Normal EPI 0-5 SEEN LAB L400.4300 None Seen /hpf 0 Normal BACTERIA SEEN LAB L400.4350 <or=2+ /hpf 0 Normal MUCUS, URINE SEEN Performed By: #### L400.0001 #### [facility] [address] [place], [place], [id number] Observed: 08/10/2018 Status: F Source: [place] CULTURE, URINE 9:20 PM [facility] REPOSITORY Order Date: 08/10/18 Urine Culture ORGANISM 1: Citrobacter freundii [place] Count 50,000-80,000 Citrobacter freundii: REACTION Amoxacillin/Clavulanic Acid $ >=32 R Cefazolin $ >=64 R Cefepime $ <=1 S Ceftriaxone $ <=1 S Ciprofloxacin $ >=4 R Ertapenim $$$ <=0.5 S Gentamicin $ <=1 S Imipenem *NF 0.5 S Levofloxacin $ >=8 R Nitrofurantoin $ 64 I Tobramycin $ <=1 S Trimethoprim/Sulfametho $ >=320 R (NF) indicates non-formulary drug at [facility]. Approval by Infectious Disease Specialist required before non-formulary drugs may be ordered and/or dispensed. Performed By: #### M100.0650 #### [facility] [address] [place], [address] Observed: 08/10/2018 Status: F Source: [place] CULTURE, BLOOD (WB) 9:17 PM [facility] REPOSITORY BC No growth in 5 days. Performed By: #### M200.1000 #### [facility] [address] [facility] [place], [address] CBC W/DIFF, AUTOMATED Collected: 08/10/2018 Status: F Source: [place] 8:50 PM [facility] REPOSITORY TYPE CODE TESTS RESULT OUT OF RANGE REFERENCE UNITS LAB L100.1000 4.4-11.0 K/mm3 Normal WBC 9.2 LAB L100.1200 4.6-6.2 M/mm3 Low RBC 3.31 LAB L100.1300 13.0-16.5 g/dl Low HGB 10.4 LAB L100.1400 40-54 % Low HCT 33.6 LAB L100.1500 80-94 fL High MCV 101.5 LAB L100.1600 27.0-32.0 pg Normal MCH 31.4 LAB L100.1700 32-36 g/gl Low MCHC 31.0 LAB L100.1810 11.6-14.6 % Normal RDW CV 13.9 LAB L100.1820 35.1-43.9 fl High RDW SD 52.2 LAB L100.1900 150-450 K/mm3 Low PLT 136 LAB L100.2000 6.2-12.0 fl Normal MPV 9.9 LAB L100.2100 47-70 % High NEUT% 83.5 LAB L100.2200 19-41 % Low LY% 8.6 LAB L100.2300 0-10 % Normal MONO% 4.8 LAB L100.2400 0-5 % Normal EO% 2.8 LAB L100.2500 0-1 % Normal BASO% 0.2 LAB L100.2550 0.0-0.9 % Normal IM GRAN % 0.100 Result Comment: IG% - Immature Granulocytes (promyelocytes, myelocytes and metamyelocytes) > 1% indicates that a LEFT SHIFT is Present. LAB L100.2620 2.0-7.7 X10 3/uL Normal Absolute Neut 7.6 LAB L100.2720 0.83-4.51 X10 3/ul Low Absolute Lymph 0.79 Performed By: #### L100.0100 #### [facility] [address] [facility] [place], [place], [id number] PROTHROMBIN TIME W/INR Collected: 08/10/2018 Status: F Source: [place] 8:50 PM [facility] REPOSITORY TYPE CODE TESTS RESULT OUT OF RANGE REFERENCE UNITS LAB L300.4150 11.7-14.9 SECONDS Normal PROTIME 14.1 LAB L300.4200 Normal INR 1.1 Performed By: #### L300.3900, L300.4310 #### [facility] [address] [place], [address] PARTIAL THROMBOPLAST Collected: 08/10/2018 Status: F Source: [place] TIME 8:50 PM [facility] REPOSITORY TYPE CODE TESTS RESULT OUT OF RANGE REFERENCE UNITS LAB L300.4310 24.1-36.2 Seconds Normal PTT 32.8 Performed By: #### L300.3900, L300.4310 #### [facility] [address] [place], [place], [id number] COMPREHENSIVE METABOLIC Collected: 08/10/2018 Status: F Source: [place] 8:50 PM [facility] REPOSITORY TYPE CODE TESTS RESULT OUT OF RANGE REFERENCE UNITS LAB L501.0100 74-106 mg/dL High GLU 121 Result Comment: Fasting Glucose result from 100 to 125 mg/dL suggests IMPAIRED HOMEOSTASIS per A.D.A. criteria. Please note revised GLUCOSE reference range effective 2017. LAB L501.1000 7-18 mg/dL High BUN 28 LAB L501.1100 0.70-1.30 mg/dL Normal CREAT,SERUM 1.03 Result Comment: The validity of the calculated GFR AND GFRAA in patients over 70 years has not been determined. Clinical correlation is essential. LAB L501.1110 >60 mL/min Normal EST GFR 74 Result Comment: Non- GFR Calc LAB L501.1115 >60 mL/min Normal EST GFR - AA 89 Result Comment: GFR Calc LAB L501.1255 ml/min Normal Estimated CRCL 59.06 LAB L501.1300 10-20 RATIO High BUN/CRE 27.2 LAB L501.1500 6.4-8. g/dL Normal 2 T PROT 6.8 LAB L501.1800 3.2-5. g/dL Low 0 ALB 2.9 LAB L501.1950 2.2-4. g/dL Normal 2 GLOB 3.9 LAB L501.2000 0.9-2. RATIO Low 4 A/G 0.7 LAB L501.2200 8.5-10 mg/dL Normal .1 CA 8.7 LAB L501.4100 15-37 U/L High AST 65 LAB L501.4305 45-117 U/L High ALK P 169 LAB L501.4405 16-61 U/L Normal ALT 51 LAB L501.4600 0.20-1 mg/dL Normal .00 T BILI 0.60 LAB L501.5300 136-14 mmol/L Normal 5 NA 139 LAB L501.5600 3.5-5. mmol/L Normal 1 K 4.5 LAB L501.5900 98-107 mmol/L Normal CL 103 LAB L501.6100 21.0-3 mmol/L Normal 2.0 CO2 31.0 LAB L501.6200 5-15 Normal GAP 5 Performed By: #### L500.4050 #### [facility] [address] [place], [address] LACTIC ACID Collected: 08/10/2018 Status: F Source: [place] 8:50 PM [facility] REPOSITORY Order Comment: Yes/No query for Sepsis Lactate Rule Y TYPE CODE TESTS RESULT OUT OF RANGE REFERENCE UNITS LAB L503.6005 0.4-2.0 mmol/L Normal LACTIC ACID 1.5 Performed By: #### L503.6005 #### [facility] [address] [place], [address] Observed: 08/10/2018 Status: F Source: [place] CULTURE, BLOOD (WB) 8:50 PM [facility] REPOSITORY BC No growth in 5 days. Performed By: #### M200.1000 #### [facility] [address] [place], [address] CHEST 1 VIEW Observed: 08/10/2018 Status: F Source: [place] (PORTABLE) 8:34 PM [facility] REPOSITORY [facility] Imaging Services [address] [address] Chest 1 View (Portable) MR#: [id number] Acct: [id number] Name: Regina Rojas Rep #: [id number] : 1935 82 From: Vicente Sebastian MD PCP: Josette Melendez MD Status: REG ER Study: Chest 1 View (Portable) Date of Exam: 08/10/18 Exam# [id number] Ordering Dr: Vicente Stoll MD STUDY: X-RAY CHEST REASON FOR EXAM: Male, 82 years old. Fever recent UTI TECHNIQUE: AP portable COMPARISON: July 08, 2018. FINDINGS: Diminished inspiratory effort is seen. There is focal atelectasis or infiltrate at the right base and to a lesser extent in left lower lobe.. There is no demonstrated pleural abnormality. Heart is enlarged. Normal mediastinum and beth. Normal visualized pulmonary arteries. Mildly calcified aortic arch and descending thoracic aorta. Dorsal spine demonstrates scoliosis and degenerative changes. Normal visualized ribs, clavicles, and shoulders. There is a tube projecting over the right hemithorax There is no demonstrated abnormality of the visualized soft tissue structures of the upper abdomen. There is improved aeration at both lung bases since previous study RAD/Chest 1 View (Portable) IMPRESSION: Mild bibasilar atelectasis or infiltrates with significant improvement since previous exam Electronically Signed: Vicente Sebastian MD at 21:52 EDT , Service support , CC: Josette Melendez MD; Vicente Stoll MD [employer] Culler: Signed CBC-COMPLETE BLOOD CNT Collected: 08/10/2018 Status: F Source: [place] NO DIFF 7:25 AM [facility] REPOSITORY Order Comment: ROOM 416 TYPE CODE TESTS RESULT OUT OF RANGE REFERENCE UNITS LAB L100.1000 4.4-11.0 K/mm3 High WBC 12.7 LAB L100.1200 4.6-6.2 M/mm3 Low RBC 3.36 LAB L100.1300 13.0-16.5 g/dl Low HGB 10.9 LAB L100.1400 40-54 % Low HCT 35.1 LAB L100.1500 80-94 fL High MCV 104.5 LAB L100.1600 27.0-32.0 pg High MCH 32.4 LAB L100.1700 32-36 g/gl Low MCHC 31.1 LAB L100.1810 11.6-14.6 % Normal RDW CV 13.8 LAB L100.1820 35.1-43.9 fl High RDW SD 51.5 LAB L100.1900 150-450 K/mm3 Low PLT 142 LAB L100.2000 6.2-12.0 fl Normal MPV 10.1 Performed By: #### L100.0500 #### [facility] [address] [place], [address] COMPREHENSIVE METABOLIC Collected: 08/10/2018 Status: F Source: MIRZA PROFIL 7:25 AM [facility] REPOSITORY Order Comment: ROOM 416 TYPE CODE TESTS RESULT OUT OF RANGE REFERENCE UNITS LAB L501.0100 74-106 mg/dL Normal GLU 97 Result Comment: Please note revised GLUCOSE reference range effective 2017. LAB L501.1000 7-18 mg/dL High BUN 23 LAB L501.1100 0.70-1.30 mg/dL Normal CREAT,SERUM 0.98 Result Comment: The validity of the calculated GFR AND GFRAA in patients over 70 years has not been determined. Clinical correlation is essential. LAB L501.1110 >60 mL/min Normal EST GFR 78 Result Comment: Non- GFR Calc LAB L501.1115 >60 mL/min Normal EST GFR - AA 95 Result Comment: GFR Calc LAB L501.1300 10-20 RATIO High BUN/CRE 23.5 LAB L501.1500 6.4-8.2 g/dL T Normal PROT 6.4 LAB L501.1800 3.2-5.0 g/dL Low ALB 2.7 LAB L501.1950 2.2-4.2 g/dL Normal GLOB 3.7 LAB L501.2000 0.9-2.4 RATIO Low A/G 0.7 LAB L501.2200 8.5-10.1 mg/dL CA Normal 8.8 LAB L501.4100 15-37 U/L High AST 76 LAB L501.4305 45-117 U/L High ALK P 199 LAB L501.4405 16-61 U/L Normal ALT 57 LAB L501.4600 0.20-1.00 mg/dL High T BILI 1.10 LAB L501.5300 136-145 mmol/L NA Normal 142 LAB L501.5600 3.5-5.1 mmol/L K Normal 4.4 LAB L501.5900 98-107 mmol/L CL Normal 105 LAB L501.6100 21.0-32.0 mmol/L Normal CO2 32.0 LAB L501.6200 5-15 Normal GAP 5 Performed By: #### L500.4050 #### [facility] [address] [place], [address] URINALYSIS, ROUTINE Collected: 08/05/2018 Status: F Source: MIRZA (DIPSTICK) 5:15 PM [facility] REPOSITORY Order Comment: How was Urine Obtained? Urine, Random TYPE CODE TESTS RESULT OUT OF RANGE REFERENCE UNITS LAB L400.3000 Yellow COLOR Normal Yellow LAB L400.3050 Clear Normal CLARITY Sl. Cloudy LAB L400.3200 Normal mg/dl Normal GLUCOSE, UR Normal LAB L400.3300 Negative mg/dL Normal BILIRUBIN URINE Negative LAB L400.3400 Negative mg/dl Normal KETONE UR Negative LAB L400.3465 1.002-1.030 Normal SP.GR. DIPSTX 1.015 LAB L400.3550 5.0 - 8.0 pH UR Normal 6.5 LAB L400.3600 Negative mg/dl High PROT 15 DIPSTX LAB L400.3700 Normal mg/dl Normal UROBILI Normal LAB L400.3750 Negative Normal NITRITE UR Negative LAB L400.3780 Negative /ul High 10 OCCULT BLOOD-UR LAB L400.3800 Negative /ul High LEUK ESTERASE 500 Performed By: #### L400.2010 #### [facility] [address] [place], [place], [address] Observed: 08/05/2018 Status: F Source: [place] CULTURE, URINE 5:15 PM [facility] REPOSITORY Urine Culture ORGANISM 1: Enterococcus faecalis [place] Count >100,000 Enterococcus faecalis: REACTION Ampicillin $ <=2 S Benzylpenicillin NF 2 S Ciprofloxacin $ >=8 R Gentamicin SYN-R R Levofloxacin $ >=8 R Linezolid $$$$ 1 S Nitrofurantoin $ <=16 S Streptomycin $ SYN-S S Tetracycline NF <=1 S Vancomycin $ 1 S (NF) indicates non-formulary drug at [facility]. Approval by Infectious Disease Specialist required before non-formulary drugs may be ordered and/or dispensed. * CLSI guidelines does not recommend testing of cephalosporins. This interpretation is deduced from Beta-lactam/penicillin results. Performed By: #### M100.0650 #### [facility] [address] [place], [place], [address] CBC W/DIFF, AUTOMATED Collected: 08/02/2018 Status: F Source: [place] 5:35 AM [facility] REPOSITORY Order Comment: 416 TYPE CODE TESTS RESULT OUT OF RANGE REFERENCE UNITS LAB L100.1000 4.4-11.0 K/mm3 Normal WBC 6.9 LAB L100.1200 4.6-6.2 M/mm3 Low RBC 3.84 LAB L100.1300 13.0-16.5 g/dl Low HGB 12.1 LAB L100.1400 40-54 % Low HCT 38.1 LAB L100.1500 80-94 fL High MCV 99.2 LAB L100.1600 27.0-32.0 pg Normal MCH 31.5 LAB L100.1700 32-36 g/gl Low MCHC 31.8 LAB L100.1810 11.6-14.6 % Normal RDW CV 13.8 LAB L100.1820 35.1-43.9 fl High RDW SD 49.9 LAB L100.1900 150-450 K/mm3 Normal PLT 185 LAB L100.2000 6.2-12.0 fl Normal MPV 9.5 LAB L100.2100 47-70 % Normal NEUT% 63.9 LAB L100.2200 19-41 % Normal LY% 24.7 LAB L100.2300 0-10 % Normal MONO% 7.6 LAB L100.2400 0-5 % Normal EO% 3.3 LAB L100.2500 0-1 % Normal BASO% 0.4 LAB L100.2550 0.0-0.9 % Normal IM GRAN % 0.100 Result Comment: IG% - Immature Granulocytes (promyelocytes, myelocytes and metamyelocytes) > 1% indicates that a LEFT SHIFT is Present. LAB L100.2620 2.0-7.7 X10 3/uL Normal Absolute Neut 4.4 LAB L100.2720 0.83-4.51 X10 3/ul Normal Absolute Lymph 1.70 Performed By: #### L100.0100 #### [facility] [address] [place], [place], [address] BASIC METABOLIC Collected: 08/02/2018 Status: F Source: [place] PROFILE ([facility]) 5:35 AM [facility] REPOSITORY Order Comment: 416 TYPE CODE TESTS RESULT OUT OF RANGE REFERENCE UNITS LAB L501.0100 74-106 mg/dL Normal GLU 87 Result Comment: Please note revised GLUCOSE reference range effective 2017. LAB L501.1000 7-18 mg/dL Normal BUN 13 LAB L501.1100 0.70-1.30 mg/dL Normal CREAT,SERUM 0.80 Result Comment: The validity of the calculated GFR AND GFRAA in patients over 70 years has not been determined. Clinical correlation is essential. LAB L501.1110 >60 mL/min Normal EST GFR 98 Result Comment: Non- GFR Calc LAB L501.1115 >60 mL/min Normal EST GFR - AA 119 Result Comment: GFR Calc LAB L501.1300 10-20 RATIO Normal BUN/CRE 16.2 LAB L501.2200 8.5-10.1 mg/dL CA Normal 8.7 LAB L501.5300 136-145 mmol/L NA Normal 144 LAB L501.5600 3.5-5.1 mmol/L Low K 3.0 LAB L501.5900 98-107 mmol/L CL Normal 102 LAB L501.6100 21.0-32.0 mmol/L High CO2 35.0 LAB L501.6200 5-15 Normal GAP 7 Performed By: #### L500.2500 #### [facility] [address] [place], [place], [address] CARDIOLOGY VISIT Observed: 07/27/2018 Status: F Source: [place] REPORT 2:04 PM [facility] REPOSITORY [facility] [address] [place] [address] OFFICE VISIT Date of Service: 07/27/18 MR#: [id number] Acct: [id number] Name: REGINA ROJAS Rep #: [id number] : 1935 Provider: Lulu Ruiz Age/Sex: 82/M Location: [facility] Status: Signed HPI HPI Details: REGINA ROJAS, is a 82 M who presents to the office today for hospital follow-up. Patient was admitted to [facility] on July 04, 2018. He was admitted for generalized pain. He was noted to have an abnormal EKG and a non-ST myocardial infarction. His troponin elevated to 2.5. 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 Patient has been paralyzed since 2005. He also has a history of chronic cystitis with self-catheterization. During his hospitalization patient underwent an echocardiogram which demonstrated ejection fraction of 65%. Stage II diastolic dysfunction. Trivial mitral insufficiency. Mild aortic stenosis. Unable to estimate RVSP. Nuclear stress test demonstrate a small apical wall defect suggestive of infarct without ischemia. Based upon patient's history of subarachnoid hemorrhage it was decided that patient will be treated medically as he was not symptomatic. He was started on aspirin, Plavix, beta-blockers, losartan as well as nitrates. Dr. Basilio is his neurologist Intake Vital Signs07/27/18 Height 5 ft 10 in 07/27/18 Weight: 172 lb 07/27/18 Body Mass Index (BMI) 24.7 07/27/18 Blood Pressure 130/72 07/27/18 Blood Pressure Location Lt brachial Intake Visit Reasons: S/P NSTEMI Is patient in pain?: No Allergies Cephalosporins Allergy (Intermediate, Verified 07/05/18 10:04) Laryngospasms Penicillins Allergy (Intermediate, Verified 07/05/18 10:04) Rash IVP DYE Allergy (Uncoded 07/05/18 10:04) Rash Medications Multivitamins,Ther W-Minerals [Multivitamin With Minerals] 1 tab PO DAILY@1700 #30 tab 09/18/14 [Rx Confirmed 07/27/18] Pyridoxine HCl [Vitamin B-6] 100 mg PO DAILY@1700 #30 tab 09/18/14 [Rx Confirmed 07/27/18] Losartan Potassium [Cozaar] 12.5 mg PO DAILY@2200 01/12/16 [History Confirmed 07/27/18] Furosemide [Lasix] 40 mg PO DAILY@2200 11/10/16 [History Confirmed 07/27/18] Magnesium Oxide [Magnesium] 500 mg PO BID 11/10/16 [History Confirmed 07/27/18] Riboflavin [Vitamin B2] 300 mg PO DAILY@1700 11/10/16 [History Confirmed 07/27/18] Oxymetazoline 0.05% [Afrin (BKC)] 2 spray NASAL Q12H PRN PRN #1 spray.btl 11/14/16 [Rx Confirmed 07/27/18] Hydrocortisone 20 mg PO BIDCM 01/28/18 [History Confirmed 07/27/18] Metformin HCl [Glucophage] 500 mg PO BIDCM 01/28/18 [History Confirmed 07/27/18] Ascorbic Acid [Vitamin C] 1,000 mg PO DAILY 07/05/18 [History Confirmed 07/27/18] Docusate Sodium [Colace] 100 mg PO BID PRN 07/05/18 [History Confirmed 07/27/18] Escitalopram Oxalate [Lexapro] 10 mg PO DAILY 07/05/18 [History Confirmed 07/27/18] Gabapentin [Neurontin] 600 mg PO DAILY 07/05/18 [History Confirmed 07/27/18] Gabapentin [Neurontin] 900 mg PO DINNER 07/05/18 [History Confirmed 07/27/18] Gabapentin [Neurontin] 900 mg PO QHS 07/05/18 [History Confirmed 07/27/18] Gully Carbonate 150 mg PO TID 07/05/18 [History Confirmed 07/27/18] Ranitidine [Zantac] 150 mg PO BIDCM 07/05/18 [History Confirmed 07/27/18] Sulfamethoxazole/Trimethoprim [Bactrim Ds Tablet] 1 ea PO DAILY 07/05/18 [History Confirmed 07/27/18] Atorvastatin Calcium [Lipitor] 40 mg PO QHS #90 tab 07/09/18 [Rx Confirmed 07/27/18] Carvedilol [Coreg (Beta Krissy)] 6.25 mg PO BID #90 tab 07/09/18 [Rx Confirmed 07/27/18] Clopidogrel Bisulfate [Plavix] 75 mg PO DAILY #90 tab 07/09/18 [Rx Confirmed 07/27/18] Cyclobenzaprine [Flexeril] 10 mg PO TID #90 tab 07/09/18 [Rx Confirmed 07/27/18] Isosorbide Mononitrate 10 mg PO QHS #90 tab 07/09/18 [Rx Confirmed 07/27/18] Morphine Sulfate [Morphine Sulfate ER] 30 mg PO BID 2 Days #4 tablet.er 07/09/18 [Rx Confirmed 07/27/18] baclofen 10 mg tablet 10 mg PO BID tab 07/27/18 [History Confirmed 07/27/18] Ejection fraction %: 65 to 70 PFSH Medical History Non-STEMI (non-ST elevated myocardial infarction) (Acute) HTN (hypertension) (Chronic) PAD (peripheral artery disease) (Chronic) Paraplegia (Chronic) Social History Smoking Status: Never smoker ROS Const Const: Positive for weakness and fatigue; negative for fever(s) or headache(s) Eyes Eyes: Negative for blind spots, loss of peripheral vision or transient loss of vision ENT ENT: Positive for balance problems; negative for headache(s), dizziness, tinnitus or Nosebleed/epistaxis Cardio Chest Pain: No Palpitations: No Edema: None Muscle aches with walking: None Resp Respiratory: Negative for SOB with activity, SOB at rest, SOB orthopnea\SOB lying down or Cough GI GI: Negative nausea, vomiting, heartburn or vomiting blood/hematemesis : Negative for hematuria Musc Musc: Positive for muscle aches/ myalgia, muscle weakness and balance problems Skin Skin: Positive for wounds (heel pads one) Neuro Neuro: Positive for weakness and other (parapalagia); negative for headache(s), dizziness, near syncope, syncope, lightheadedness or orthostatic symptoms Jayson Hematologic/Lymphatic: Negative for easy bleeding Endo Endo: Positive for fatigue Cardiology Exam Const Appearance: cooperative, no acute distress and well developed Orientation: alert, awake and oriented x3 Head Head: normocephalic and atraumatic Mouth: moist mucous membranes Eyes General: appearance normal, both eyes and all related structures Conjunctivae: conjunctivae normal Pupils: PERRL EOM: EOM intact bilaterally Neck Neck: normal visual inspection, no lymphadenopathy and no JVD Carotids: Negative bruit Neck Mass: Negative Neck mass Chest Chest inspection: normal inspection of the chest and symmetric chest movement Auscultation: Bilateral: Diminished Lung Sounds Cardio Palpation: normal PMI Rate: regular rate Rhythm: regular rhythm Heart sounds: S1 normal and S2 normal; negative rub, gallop or murmur GI GI: normal to inspection, soft, no hepatosplenomegaly and bowel sounds present; negative tender Neuro General: alert, awake, oriented x3, CN's II-XI intact bilaterally and moves all extremities Extremities Pulses: Normal: Right Posterior Tibial Pulse, Left Posterior Tibial Pulse, Right Radial Pulse, Left Radial Pulse Lower Extremity Edema: None: Bilateral Psych Psychological: normal affect Assessment AND Plan 1. Non-STEMI (non-ST elevated myocardial infarction) I21.4 Plan Patient has not had any symptoms of chest discomfort. With his recent non-ST AK will continue with aggressive medical management. He has expressed concerns over possibly stopping some of these medications. Advised that we will discuss this in the future. 2. Essential hypertension I10 Plan Blood pressure is well controlled on current medications, we do not recommend any changes at this time. Plan Detail Additional Comments Thank you for allowing us to participate in the patients plan of care, if you have any questions please do not hesitate to call. This note was generated using a voice recognition system and there may be incorrect words, spelling or punctuation that were not noted when reviewing the office note prior to saving. Follow Up 3 Months (MMM) Coding Level of Care Code Off vis,est,level 3 Diagnoses Non-STEMI (non-ST elevated myocardial infarction) I21.4 Essential hypertension I10 Hypertension type: essential hypertension Coding Level of Care Code Off vis,est,level 3 Diagnoses Non-STEMI (non-ST elevated myocardial infarction) I21.4 Essential hypertension I10 Hypertension type: essential hypertension 07/27/18 1404 <Electronically signed by Lulu CASTELLON> Date Lulu CASTELLON Cosigner Signature: Date (if applicable) CC: Josette Melendez MD CBC-COMPLETE BLOOD CNT Collected: 07/23/2018 Status: F Source: MIRZA NO DIFF 5:25 AM [facility] REPOSITORY TYPE CODE TESTS RESULT OUT OF RANGE REFERENCE UNITS LAB L100.1000 4.4-11.0 K/mm3 High WBC 19.0 LAB L100.1200 4.6-6.2 M/mm3 Low RBC 3.60 LAB L100.1300 13.0-16.5 g/dl Low HGB 11.7 LAB L100.1400 40-54 % Low HCT 37.0 LAB L100.1500 80-94 fL High MCV 102.8 LAB L100.1600 27.0-32.0 pg High MCH 32.5 LAB L100.1700 32-36 g/gl Low MCHC 31.6 LAB L100.1810 11.6-14.6 % Normal RDW CV 13.3 LAB L100.1820 35.1-43.9 fl High RDW SD 48.7 LAB L100.1900 150-450 K/mm3 Normal PLT 196 LAB L100.2000 6.2-12.0 fl Normal MPV 9.6 Performed By: #### L100.0500 #### [facility] [address] [place], [address] BASIC METABOLIC Collected: 07/23/2018 Status: F Source: MIRZA PROFILE (BMP) 5:25 AM [facility] REPOSITORY TYPE CODE TESTS RESULT OUT OF RANGE REFERENCE UNITS LAB L501.0100 74-106 mg/dL Normal GLU 77 Result Comment: Please note revised GLUCOSE reference range effective 2017. LAB L501.1000 7-18 mg/dL High BUN 22 LAB L501.1100 0.70-1.30 mg/dL Normal CREAT,SERUM 1.14 Result Comment: The validity of the calculated GFR AND GFRAA in patients over 70 years has not been determined. Clinical correlation is essential. LAB L501.1110 >60 mL/min Normal EST GFR 66 Result Comment: Non- GFR Calc LAB L501.1115 >60 mL/min Normal EST GFR - AA 79 Result Comment: GFR Calc LAB L501.1300 10-20 RATIO Normal BUN/CRE 19.3 LAB L501.2200 8.5-10.1 mg/dL CA Normal 8.6 LAB L501.5300 136-145 mmol/L NA Normal 139 LAB L501.5600 3.5-5.1 mmol/L K Normal 3.6 LAB L501.5900 98-107 mmol/L CL Normal 102 LAB L501.6100 21.0-32.0 mmol/L Normal CO2 30.0 LAB L501.6200 5-15 Normal GAP 7 Performed By: #### L500.2500 #### [facility] [address] [place], [address] Observed: 07/18/2018 Status: F Source: MIR[place] CULTURE, URINE 7:00 PM [facility] REPOSITORY Urine Culture ORGANISM 1: Citrobacter freundii [place] Count >100,000 Citrobacter freundii: REACTION Amoxacillin/Clavulanic Acid $ 16 R Cefazolin $ >=64 R Cefepime $ <=1 S Ceftriaxone $ <=1 S Ciprofloxacin $ >=4 R Ertapenim $$$ <=0.5 S Gentamicin $ <=1 S Imipenem *NF 0.5 S Levofloxacin $ >=8 R Nitrofurantoin $ <=16 S Tobramycin $ 8 I Trimethoprim/Sulfametho $ >=320 R (NF) indicates non-formulary drug at [facility]. Approval by Infectious Disease Specialist required before non-formulary drugs may be ordered and/or dispensed. Performed By: #### M100.0650 #### [facility] [address] [place], [place], [address] BASIC METABOLIC Collected: 07/16/2018 Status: F Source: [place] PROFILE ([facility]) 5:55 AM [facility] REPOSITORY Order Comment: 416 TYPE CODE TESTS RESULT OUT OF RANGE REFERENCE UNITS LAB L501.0100 74-106 mg/dL Normal GLU 82 Result Comment: Please note revised GLUCOSE reference range effective 2017. LAB L501.1000 7-18 mg/dL High BUN 27 LAB L501.1100 0.70-1.30 mg/dL Normal CREAT,SERUM 1.02 Result Comment: The validity of the calculated GFR AND GFRAA in patients over 70 years has not been determined. Clinical correlation is essential. LAB L501.1110 >60 mL/min Normal EST GFR 75 Result Comment: Non- GFR Calc LAB L501.1115 >60 mL/min Normal EST GFR - AA 90 Result Comment: GFR Calc LAB L501.1300 10-20 RATIO High BUN/CRE 26.5 LAB L501.2200 8.5-10.1 mg/dL CA Normal 8.5 LAB L501.5300 136-145 mmol/L NA Normal 143 LAB L501.5600 3.5-5.1 mmol/L K Normal 3.9 LAB L501.5900 98-107 mmol/L CL Normal 102 LAB L501.6100 21.0-32.0 mmol/L Normal CO2 31.0 LAB L501.6200 5-15 Normal GAP 10 Performed By: #### L500.2500 #### [facility] [address] [place], [place], [address] CBC-COMPLETE BLOOD CNT Collected: 07/16/2018 Status: F Source: [place]IR[place] NO DIFF 5:55 AM [facility] REPOSITORY Order Comment: 416 TYPE CODE TESTS RESULT OUT OF RANGE REFERENCE UNITS LAB L100.1000 4.4-11.0 K/mm3 Normal WBC 8.2 LAB L100.1200 4.6-6.2 M/mm3 Low RBC 3.70 LAB L100.1300 13.0-16.5 g/dl Low HGB 11.8 LAB L100.1400 40-54 % Low HCT 37.4 LAB L100.1500 80-94 fL High MCV 101.1 LAB L100.1600 27.0-32.0 pg Normal MCH 31.9 LAB L100.1700 32-36 g/gl Low MCHC 31.6 LAB L100.1810 11.6-14.6 % Normal RDW CV 13.3 LAB L100.1820 35.1-43.9 fl High RDW SD 49.3 LAB L100.1900 150-450 K/mm3 Normal PLT 216 LAB L100.2000 6.2-12.0 fl Normal MPV 9.2 Performed By: #### L100.0500 #### [facility] [address] [place], [address] LITHIUM Collected: 07/16/2018 Status: F Source: MIRZA 5:55 AM [facility] REPOSITORY Order Comment: 416 Date of Last Dose: 07/15/18 Time of Last Dose: 1700 TYPE CODE TESTS RESULT OUT OF RANGE REFERENCE UNITS LAB L501.9060 0.60-1.20 mmol/L Normal LI 0.70 Performed By: #### L501.9060 #### [facility] [address] [place], [address] 12 LEAD ELECTROCARDIOGRAM Observed: 07/09/2018 Status: F Source: MIRZA 3:48 PM [facility] REPOSITORY [facility] Cardi[facility] Services [address] [place] [address] 12 Lead EKG 07/05/18 1330 MR#: [id number] Acct: [id number] Name: REGINA ROJAS Rep #: [id number] : 1935 82 From: Haider Gomez MD Attending Dr: Ai Vazquez Status: DIS IN Ordering Dr: Jewel Calderon MD Date: 07/07/18 Location: [facility] Sex: M C Admitted: 07/05/18 Test Reason : ADMISSION CP Blood Pressure : / mmHG Vent. Rate : 066 BPM Atrial Rate : 066 BPM P-R Int : 190 ms QRS Dur : 074 ms QT Int : 408 ms P-R-T Axes : 071 076 -26 degrees QTc Int : 427 ms Normal sinus rhythm Septal infarct , age undetermined ST AND T wave abnormality, consider inferolateral ischemia Abnormal ECG When compared with ECG of 05-JUL-2018 10:30, MANUAL COMPARISON REQUIRED, DATA IS UNCONFIRMED Confirmed by HAIDER GOMEZ MD ([id number]), city editor DRE KIRBY ([id number]) on 07/09/2018 3:48:28 PM Referred By: JOSE ANTONIO Confirmed By:HAIDER GOMEZ MD 07/09/18 1548 Date Haider Gomez MD CC: Jewel Calderon MD; Josette Melendez MD; Ai Vazquez Signed 12 LEAD ELECTROCARDIOGRAM Observed: 07/09/2018 Status: F Source: [place] 3:47 PM [facility] REPOSITORY [facility] Cardiovascular Services [address] [place] [address] 12 Lead EKG 07/06/18 0515 MR#: [id number] Acct: [id number] Name: REGINA ROJAS Rep #: [id number] : 1935 82 From: Haider Gomez MD Attending Dr: Ai Vazquez Status: DIS IN Ordering Dr: Ai Vazquez MD Date: 07/06/18 Location: U Sex: M C Admitted: 07/05/18 Test Reason : AM Blood Pressure : / mmHG Vent. Rate : 068 BPM Atrial Rate : 068 BPM P-R Int : 194 ms QRS Dur : 086 ms QT Int : 382 ms P-R-T Axes : 066 043 075 degrees QTc Int : 406 ms Normal sinus rhythm with sinus arrhythmia Septal infarct , age undetermined Abnormal ECG When compared with ECG of 05-JUL-2018 13:30, MANUAL COMPARISON REQUIRED, DATA IS UNCONFIRMED Confirmed by HAIDER GOMEZ MD ([id number]), DRE Morales ([id number]) on 07/09/2018 3:46:47 PM Referred By: DELISA Confirmed By:HAIDER GOMEZ MD 07/09/18 1546 Date Haider Gomez MD CC: Josette Melendez MD; Ai Vazquez Signed 12 LEAD ELECTROCARDIOGRAM Observed: 07/09/2018 Status: F Source: [place] 3:05 PM [facility] REPOSITORY [facility] Cardiovascular Services [address] [address] 12 Lead EKG 07/05/18 1030 MR#: [id number] Acct: [id number] Name: REGINA ROJAS Rep #: [id number] : 1935 82 From: Haider Gomez MD Attending Dr: Ai Vazquez Status: DIS IN Ordering Dr: eDlvis Soriano MD Date: 07/05/18 Location: [facility] Sex: M C Admitted: 07/05/18 Test Reason : GENERAL ILLNESS Blood Pressure : / mmHG Vent. Rate : 076 BPM Atrial Rate : 076 BPM P-R Int : 200 ms QRS Dur : 078 ms QT Int : 368 ms P-R-T Axes : 083 079 -04 degrees QTc Int : 414 ms Normal sinus rhythm Septal infarct , age undetermined ST AND T wave abnormality, consider inferior ischemia Abnormal ECG Confirmed by HAIDER GOMEZ MD ([id number]), city editor DRE KIRBY (56) on 07/09/2018 3:05:27 PM Referred By: ELAINE Confirmed By:HAIDER GOMEZ MD 07/09/18 1505 Date Haider Gomez MD CC: Marek Soriano MD; Josette Melendez MD; Ai Vazquez Signed 12 LEAD ELECTROCARDIOGRAM Observed: 07/09/2018 Status: F Source: MIR[place] 3:05 PM [facility] REPOSITORY [facility] Cardiovascular Services [address] [place] [address] 12 Lead EKG 07/05/18 1240 MR#: [id number] Acct: [id number] Name: MICKEYRADHAGRIS NATHNICOLE Duncan Rep #: [id number] : 1935 82 From: Haider Gomez MD Attending Dr: Ai Vazquez Status: DIS IN Ordering Dr: Ai Vazquez MD Date: 07/05/18 Location: [facility] Sex: M C Admitted: 07/05/18 Test Reason : CHEST PAIN REPEAT Blood Pressure : / mmHG Vent. Rate : 072 BPM Atrial Rate : 072 BPM P-R Int : 176 ms QRS Dur : 088 ms QT Int : 398 ms P-R-T Axes : 054 023 -39 degrees QTc Int : 435 ms Normal sinus rhythm Left ventricular hypertrophy with repolarization abnormality Abnormal ECG Confirmed by PATRICIA PIPER, HAIDER ([id number]), city editor DRE KIRBY ([id number]) on 07/09/2018 3:05:43 PM Referred By: CF Confirmed By:HAIDER GOMEZ MD 07/09/18 1505 Date Haider Gomez MD CC: Josette Melendez MD; Ai Vazquez Signed DISCHARGE SUMMARY Observed: 07/09/2018 Status: F Source: MIRZA 1:36 PM [facility] REPOSITORY [facility] Medical Records Department [address] [place] [address] Discharge Summary 07/09/18 1326 MR#: [id number] Acct: [id number] Name: MICKEYREGINA DUKE Rep #: [id number] : 1935 82 From: Ai Vazquez MD PCP: Josette Melendez MD Status: DIS IN Y Location: [place] [address]-1 Discharge Date and Diagnosis Date of Admission: 07/05/18 Date of Discharge: 07/09/18 - Primary Discharge Diagnosis #1 acute non-ST elevation AK: #2 acute complicated cystitis. #3 Acute kidney injury. #4 intractable bilateral leg muscle spasm and pain. 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 Ejection fraction is at lower limits of normal at 54%. Electronically Signed: Faustino Mauro MD at 11:51 EDT , Service support , Chest X-Ray 07/08/18 10:21 IMPRESSION: Bilateral perihilar infiltrates. Small effusions. Favoring pulmonary edema. Infectious pneumonia not entirely excluded. Electronically Signed: Bill Jon at 11:37 EDT Tel , Service support , Dr. Calderon, cardiology. Operations: None Procedures: 2-D Echocardiogram, EKG, Stress test Summary of Care Provided: The patient is a 82 year old M admitted because of weakness, fever, body aches and pains and he was found to have acute non-ST elevation AK, acute kidney injury and acute complicated cystitis. EKG revealed no evidence of acute ischemic changes. His troponin was elevated and maximum was 2.53 and then trended down. Chest x-ray on admission revealed no acute findings, bilateral basal atelectasis. Patient was treated with IV heparin drip, aspirin, Plavix, Coreg, nitrates and losartan. 2D echocardiogram revealed ejection fraction of 65%, stage II diastolic dysfunction and mild aortic stenosis. Cardiology consulted and recommended nuclear stress test that revealed findings consistent with relatively small apical anterior infarct with ejection fraction 54%. After discussion with cardiology and because of patient's history of subarachnoid hemorrhage, decision was made to treat the patient medically. IV heparin drip discontinued and patient kept on aspirin, statins, Plavix, beta blockers and losartan as well as nitrates. He was found to have acute kidney injury attributed to dehydration. His admission creatinine was 1.33 and with IV fluid therapy, creatinine came down to 0.75. Because patient received IV fluids, he complains of increasing shortness of breath for which chest x-ray repeated and revealed probable pulmonary vascular congestion. Patient received 1 dose of IV Lasix and he improved. On admission, urinalysis revealed cloudy urine, positive for leukocyte esterase, there was 25-50 WBCs and 2+ bacteria. He was treated with IV ciprofloxacin. He remained afebrile, white blood cell count returned back to normal and urine culture revealed gram-negative rods but below infection level. Blood culture showed no growth in 48 hours. She completed 5 days of ciprofloxacin. This patient has history of transverse myelitis, paraplegia and chronic pain syndrome. During this admission, he complained of significant bilateral leg pain and muscle spasm. He was continued on his home medication including MS Contin and oxycodone without improvement. I started him on fentanyl patch as well as Flexeril and patient did improve. Patient discharged to intermediate facility in a stable medical condition, discharged on fentanyl patch 12 mcg to 3 days, Flexeril 10 mg 3 times daily, continued on MS Contin and hydrocodone as before, discharged on aspirin, Plavix, statins, beta blockers and losartan as well as isosorbide mononitrate, continued on Bactrim for long-term suppressive therapy for Nocardia infection of the right upper forearm, plan to follow-up with his PCP in 1-2 weeks, follow-up with his pain management doctor, Dr. Leary, in 1 week, follow-up with cardiology in 1-2 weeks. Home Medications: Medications to take at Discharge Multivitamins,Ther W-Minerals [Multivitamin With Minerals] 1 tablet PO DAILY@1700 #30 tablet 09/18/14 Pyridoxine HCl [Vitamin B-6] 100 mg PO DAILY@1700 #30 tablet 09/18/14 Losartan Potassium [Cozaar] 12.5 mg PO DAILY@2200 01/12/16 Furosemide [Lasix] 40 mg PO DAILY@2200 11/10/16 Magnesium Oxide [Magnesium] 500 mg PO BID 11/10/16 Riboflavin [Vitamin B2] 300 mg PO DAILY@1700 11/10/16 Oxymetazoline 0.05% [Afrin (BKC)] 2 spray NASAL Q12H PRN PRN #1 spray.btl 11/14/16 Hydrocortisone 20 mg PO BIDCM 01/28/18 Metformin HCl [Glucophage] 500 mg PO BIDCM 01/28/18 Ascorbic Acid [Vitamin C] 1,000 mg PO DAILY 07/05/18 Docusate Sodium [Colace] 100 mg PO BID PRN 07/05/18 Escitalopram Oxalate [Lexapro] 10 mg PO DAILY 07/05/18 Gabapentin [Neurontin] 600 mg PO DAILY 07/05/18 Gabapentin [Neurontin] 900 mg PO DINNER 07/05/18 Gabapentin [Neurontin] 900 mg PO QHS 07/05/18 Garlic 500 mg PO DAILY 07/05/18 Gully Carbonate 150 mg PO TID 07/05/18 Ranitidine [Zantac] 150 mg PO BIDCM 07/05/18 Sulfamethoxazole/Trimethoprim [Bactrim Ds Tablet] 1 each PO DAILY 07/05/18 Atorvastatin Calcium [Lipitor] 40 mg PO QHS #90 tab 07/09/18 Carvedilol [Coreg (Beta Krissy)] 6.25 mg PO BID #90 tab 07/09/18 Clopidogrel Bisulfate [Plavix] 75 mg PO DAILY #90 tab 07/09/18 Cyclobenzaprine [Flexeril] 10 mg PO TID #90 tab 07/09/18 Hydrocodone/Acetaminophen [Hydrocodon-Acetaminophn 10-325] 1 ea PO QHS 3 Days #3 tab 07/09/18 Isosorbide Mononitrate 10 mg PO QHS #90 tab 07/09/18 Morphine Sulfate [Morphine Sulfate ER] 30 mg PO BID 2 Days #4 tablet.er 07/09/18 fentaNYL patch [Duragesic Patch] 12 mcg TRANSDERM. Q72H 9 Days #3 patch 07/09/18 Following Prescrptions Were Given to Patient: Atorvastatin Calcium [Lipitor] 40 mg PO QHS #90 tab Clopidogrel Bisulfate [Plavix] 75 mg PO DAILY #90 tab fentaNYL patch [Duragesic Patch] 12 mcg TRANSDERM. Q72H 9 Days #3 patch Hydrocodone/Acetaminophen [Hydrocodon-Acetaminophn 10-325] 1 ea PO QHS 3 Days #3 tab Isosorbide Mononitrate 10 mg PO QHS #90 tab Carvedilol [Coreg (Beta Krissy)] 6.25 mg PO BID #90 tab Morphine Sulfate [Morphine Sulfate ER] 30 mg PO BID 2 Days #4 tablet.er Cyclobenzaprine [Flexeril] 10 mg PO TID #90 tab Primary Care Physician: Josette Melendez MD [Primary Care Provider] - Please follow up with your Primary Care Physician in: 1-2 weeks. Please Follow Up With: Saroj Leary When: 1 week. Please Follow Up With: Jewel Calderon MD When: 1-2 weeks. Disposition: Retirement facility Minutes spent on discharge:: 35 Patient Condition:: Stable Medical Necessity - Tobacco Use Smoking Status: Never smoker Meaningful Use Info Meaningful Use Diagnoses (Choose all that apply): AMI - AMI Aspirin given w/in 24hrs of arrival?: Yes ASA at discharge?: Yes Statins at discharge?: Yes Edi/ARB at discharge?: Yes Beta Kirssy at discharge?: Yes Done w/ Acute AK measure.: Yes Code Visit Inpatient E AND M: [id number] Disch Hosp 07/09/18 1336 <Electronically signed by Ai Vazquez MD> Date Ai Vazquez MD Cosigner Signature (if applicable): Date CC: SAROJ LEARY; Jewel Calderon MD; Josette Melendez MD; Ai Vazquez Signed BEDSIDE GLUCOSE Collected: 07/09/2018 Status: F Source: [place] 11:42 AM [facility] REPOSITORY TYPE CODE TESTS RESULT OUT OF REFERENCE UNITS RANGE LAB L501.080 70-110 mg/dL High BEDSIDE GLU 146 Result Comment: MANAGEMENT OF PATIENT CARE PER NURSING PROTOCOL Performed By: #### L501.080 #### [facility] Point of Care [address] [place] [address] TRANSFER TO [facility] Observed: 07/09/2018 Status: F Source: [facility] 9:53 AM [facility] REPOSITORY [facility] Medical Records Department [address] [place] [address] Transfer to Extended Care MR#: [id number] Acct: [id number] Name: REGINA ROJAS Rep #: [id number] : 1935 82 From: Ai Vazquez MD PCP: Josette Melendez MD Status: ADM IN REGINA ROJAS (Patient) (Health Ins. Claim No.) (Day of Discharge to Facility) Certification of patient admission REQUIRED AT TIME OF ADMISSION. I CERTIFY THAT POST-HOSPITAL ECF SERVICES ARE REQUIRED TO BE GIVEN ON AN IN-PATIENT BASIS BECAUSE OF THE ABOVE NAMED PATIENT'S NEED FOR LONG-TERM CARE ON A CONTINUING BASIS FOR THE CONDITION(S) FOR WHICH HE/SHE WAS RECEIVING IN-PATIENT HOSPITAL SERVICES PRIOR TO HIS/HER TRANSFER TO THE F. 07/09/18 0953 <Electronically signed by Ai Vazquez MD> Date Ai Vazquez MD - Diet 07/07/18 14:22 Diet: Cardiac: Calorie-Controlled Is pt able to select menu?: Yes How many daily calories?: 1800 calorie - Wound(s) Bilat Great Toes Wound Type: Neuropathic/Diabetic Foot Ulcer coccyx Wound Type: Pressure Injury - Suggestions for Active Care Change Position every (hours): 3 Hours to sit in a chair: 2 Times a day to sit in chair: 3 - Therapies Weight Bearing: Weight bearing as tolerated Physical Therapy: Eval and Treat Occupational Therapy: Eval and Treat - Problem/Diagnosis (1) Chronic pain Status: Chronic Current Visit: No (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 Current Visit: No (3) Syringomyelia Status: Chronic Current Visit: No (4) HTN (hypertension) Status: Chronic Current Visit: No (5) PAD (peripheral artery disease) Status: Chronic Current Visit: No (6) Paraplegia Status: Chronic Comment: due to transverse myelitis Current Visit: No - Allergies/Procedures Done in Hospital Allergies/Adverse Reactions: Allergies Cephalosporins Allergy (Intermediate, Verified 07/05/18 10:04) Laryngospasms Penicillins Allergy (Intermediate, Verified 07/05/18 10:04) Rash IVP DYE Allergy (Uncoded 07/05/18 10:04) Rash - Type of Care/Length of Stay Estimated LOS: Convalescent Care Less Than 30 days Type of Care Needed: Skilled Rehab Potential: Fair Prognosis: Fair - Additional Orders/Day of Discharge H AND P will serve as current which was dated: 07/05/18 Day of Discharge: 07/09/18 - Dietary and Speech Recommendations Dietitian Recommendations/Changes: Rec 1 pkt hermelindo bid for improved wound healing - please order from pharmacy - Follow Up Care Primary Care Physician: Josette Melendez MD [Primary Care Provider] - Please follow up with your Primary Care Physician in: 1-2 weeks. Please Follow Up With: Saroj Leary When: 1 week. Please Follow Up With: Jewel Calderon MD When: 1-2 weeks. 07/09/18 0953 <Electronically signed by Ai Vazquez MD> Date Ai Vazquez MD CC: Jewel Calderon MD; Josette Melendez MD Signed STRESS REPORT Observed: 07/09/2018 Status: F Source: [place] 8:35 AM [facility] REPOSITORY [facility] Cardiovascular [place] [address] [place] [address] MR#: [id number] Acct: [id number] Name: REGINA ROJAS Rep #: [id number] : 1935 82 From: Haider Gomez MD Primary Care: Josette Melendez MD Status: ADM IN Ordering Dr: Sex: M C Stress Test Report Pharmacologic myocardial perfusion stress test. 82-year-old man with a history of chest pain and abnormal troponins. Stress protocol: Resting EKG demonstrates normal sinus rhythm with rate of [address]-T wave changes and noted resting blood pressure is 144/80 mmHg. 0.4 mg of regadenoson was infused per usual protocol followed by rapid intravenous saline flush injection continuous EKG monitoring was performed. The patient maintained sinus rhythm throughout the recording. There were nonspecific downsloping ST depression noted in leads II, III and aVF and V5 and V6 suggestive but not diagnostic of ischemia. The maximum heart rate was 190 bpm which was 77% of maximum predicted heart rate workload was 1 metabolic equivalent. The resting blood pressure is 144/80 mmHg. Final blood pressure is 124/78 mmHg. Myocardial perfusion protocol. Patient underwent myocardial perfusion protocol evaluation which will be dictated under separate cover. Conclusion: Pharmacologic myocardial perfusion stress test with no EKG changes diagnostic of ischemia. Nuclear images demonstrated separately. 07/09/18834 <Electronically signed by Haider Gomez MD> Date Haider Gomez MD CC: Josette Melendez MD; Ai Vazquez Date Dictated: 07/09/18832 Date Transcribed: 07/09/18832 Cotton Seed Culler: CO Signed BEDSIDE GLUCOSE Collected: 07/09/2018 Status: F Source: [place] 6:39 AM [facility] REPOSITORY TYPE CODE TESTS RESULT OUT OF REFERENCE UNITS RANGE LAB L501.080 70-110 mg/dL High BEDSIDE GLU 118 Result Comment: MANAGEMENT OF PATIENT CARE PER NURSING PROTOCOL Performed By: #### L501.080 #### [facility] Point of Care [address] [place] [address] BEDSIDE GLUCOSE Collected: 07/08/2018 Status: F Source: [place] 10:44 PM [facility] REPOSITORY TYPE CODE TESTS RESULT OUT OF REFERENCE UNITS RANGE LAB L501.080 70-110 mg/dL High BEDSIDE GLU 139 Result Comment: MANAGEMENT OF PATIENT CARE PER NURSING PROTOCOL Performed By: #### L501.080 #### [facility] Point of Care [address] [place] [address] BEDSIDE GLUCOSE Collected: 07/08/2018 Status: F Source: [place] 5:21 PM [facility] REPOSITORY TYPE CODE TESTS RESULT OUT OF REFERENCE UNITS RANGE LAB L501.080 70-110 mg/dL High BEDSIDE GLU 158 Result Comment: MANAGEMENT OF PATIENT CARE PER NURSING PROTOCOL Performed By: #### L501.080 #### [facility] Point of Care [address] [place] [address] BEDSIDE GLUCOSE Collected: 07/08/2018 Status: F Source: [place] 11:56 AM [facility] REPOSITORY TYPE CODE TESTS RESULT OUT OF REFERENCE UNITS RANGE LAB L501.080 70-110 mg/dL High BEDSIDE GLU 172 Result Comment: MANAGEMENT OF PATIENT CARE PER NURSING PROTOCOL Performed By: #### L501.080 #### [facility] Point of Care [address] [place] [address] CHEST 1 VIEW Observed: 07/08/2018 Status: F Source: [place] (PORTABLE) 10:21 AM [facility] REPOSITORY [facility] Imaging Services [address] [place] [address] Chest 1 View (Portable) MR#: [id number] Acct: [id number] Name: REGINA ROJAS Rep #: [id number] : 1935 M 82 From: Bill Jon MD PCP: Josette Melendez MD Status: ADM IN Study: Chest 1 View (Portable) Date of Exam: 07/08/18 Exam# [id number] Ordering Dr: Ai Vazquez MD STUDY: X-RAY CHEST REASON FOR EXAM: Male, 82 years old. Increased shortness of breath. TECHNIQUE: Portable upright chest COMPARISON: 07/05/2018. FINDINGS: Right ventricular peritoneal shunt catheter traverses the neck, chest and upper abdomen. Bilateral perihilar and lower lung infiltrates, suspected small bilateral effusions, no dense focal consolidation and no pneumothorax. Mild cardiomegaly. Normal mediastinal silhouette, beth and pleural margins. Mild thoracic scoliosis. 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 No acute upper abdominal process is evident. The ventricular peritoneal shunt catheter tip terminates under the right hemidiaphragm in the region of the liver. RAD/Chest 1 View (Portable) IMPRESSION: Bilateral perihilar infiltrates. Small effusions. Favoring pulmonary edema. Infectious pneumonia not entirely excluded. Electronically Signed: Bill Danay, at 11:37 EDT Tel , Service support , CC: Josette Melendez MD; Ai Vazquez Cotton Seed Culler: Signed BEDSIDE GLUCOSE Collected: 07/08/2018 Status: F Source: [place] 7:05 AM [facility] REPOSITORY TYPE CODE TESTS RESULT OUT OF RANGE REFERENCE UNITS LAB L501.080 70-110 mg/dL Normal BEDSIDE GLU 86 Result Comment: MANAGEMENT OF PATIENT CARE PER NURSING PROTOCOL Performed By: #### L501.080 #### [facility] Point of Care [address] [place] [address] PARTIAL THROMBOPLAST Collected: 07/08/2018 Status: F Source: [place] TIME 6:05 AM [facility] REPOSITORY TYPE CODE TESTS RESULT OUT OF RANGE REFERENCE UNITS LAB L300.4310 24.1-36.2 Seconds Normal PTT 29.3 Performed By: #### L300.4310 #### [facility] [address] [place], [address] BEDSIDE GLUCOSE Collected: 07/07/2018 Status: F Source: [place] 9:12 PM [facility] REPOSITORY TYPE CODE TESTS RESULT OUT OF REFERENCE UNITS RANGE LAB L501.080 70-110 mg/dL High BEDSIDE GLU 130 Result Comment: MANAGEMENT OF PATIENT CARE PER NURSING PROTOCOL Performed By: #### L501.080 #### [facility] Point of Care [address] [place] [address] BEDSIDE GLUCOSE Collected: 07/07/2018 Status: F Source: [place] 6:03 PM [facility] REPOSITORY TYPE CODE TESTS RESULT OUT OF REFERENCE UNITS RANGE LAB L501.080 70-110 mg/dL High BEDSIDE GLU 133 Result Comment: MANAGEMENT OF PATIENT CARE PER NURSING PROTOCOL Performed By: #### L501.080 #### [facility] Point of Care [address] [place], [place] [address] BEDSIDE GLUCOSE Collected: 07/07/2018 Status: F Source: [place] 12:26 PM [facility] REPOSITORY TYPE CODE TESTS RESULT OUT OF RANGE REFERENCE UNITS LAB L501.080 70-110 mg/dL Normal BEDSIDE GLU 103 Result Comment: MANAGEMENT OF PATIENT CARE PER NURSING PROTOCOL Performed By: #### L501.080 #### [facility] Point of Care [address] [place] [address] BEDSIDE GLUCOSE Collected: 07/07/2018 Status: F Source: [place] 6:22 AM [facility] REPOSITORY TYPE CODE TESTS RESULT OUT OF RANGE REFERENCE UNITS LAB L501.080 70-110 mg/dL Normal BEDSIDE GLU 94 Result Comment: MANAGEMENT OF PATIENT CARE PER NURSING PROTOCOL Performed By: #### L501.080 #### [facility] Point of Care [address] [place] [address] CBC W/DIFF, AUTOMATED Collected: 07/07/2018 Status: F Source: [place] 5:25 AM [facility] REPOSITORY TYPE CODE TESTS RESULT OUT OF RANGE REFERENCE UNITS LAB L100.1000 4.4-11.0 K/mm3 Normal WBC 7.3 LAB L100.1200 4.6-6.2 M/mm3 Low RBC 3.37 LAB L100.1300 13.0-16.5 g/dl Low HGB 11.1 LAB L100.1400 40-54 % Low HCT 34.2 LAB L100.1500 80-94 fL High MCV 101.5 LAB L100.1600 27.0-32.0 pg High MCH 32.9 LAB L100.1700 32-36 g/gl Normal MCHC 32.5 LAB L100.1810 11.6-14.6 % Normal RDW CV 13.0 LAB L100.1820 35.1-43.9 fl High RDW SD 47.4 LAB L100.1900 150-450 K/mm3 Low PLT 130 LAB L100.2000 6.2-12.0 fl Normal MPV 10.2 LAB L100.2100 47-70 % High NEUT% 76.1 LAB L100.2200 19-41 % Low LY% 14.6 LAB L100.2300 0-10 % Normal MONO% 7.8 LAB L100.2400 0-5 % Normal EO% 1.1 LAB L100.2500 0-1 % Normal BASO% 0.3 LAB L100.2550 0.0-0.9 % Normal IM GRAN % 0.100 Result Comment: IG% - Immature Granulocytes (promyelocytes, myelocytes and metamyelocytes) > 1% indicates that a LEFT SHIFT is Present. LAB L100.2620 2.0-7.7 X10 3/uL Normal Absolute Neut 5.6 LAB L100.2720 0.83-4.51 X10 3/ul Normal Absolute Lymph 1.07 Performed By: #### L100.0100 #### [facility] [address] [place], [address] BASIC METABOLIC Collected: 07/07/2018 Status: F Source: [place] PROFILE (BMP) 5:25 AM [facility] REPOSITORY TYPE CODE TESTS RESULT OUT OF RANGE REFERENCE UNITS LAB L501.0100 74-106 mg/dL Normal GLU 93 Result Comment: Please note revised GLUCOSE reference range effective 2017. LAB L501.1000 7-18 mg/dL Normal BUN 15 LAB L501.1100 0.70-1.30 mg/dL Normal CREAT,SERUM 0.75 Result Comment: The validity of the calculated GFR AND GFRAA in patients over 70 years has not been determined. Clinical correlation is essential. LAB L501.1110 >60 mL/min Normal EST GFR 107 Result Comment: Non- GFR Calc LAB L501.1115 >60 mL/min Normal EST GFR - AA 129 Result Comment: GFR Calc LAB L501.1255 ml/min Normal Estimated CRCL 60.83 LAB L501.1300 10-20 RATIO High BUN/CRE 20.1 LAB L501.2200 8.5-10 mg/dL Low .1 CA 8.1 LAB L501.5300 136-14 mmol/L Normal 5 NA 142 LAB L501.5600 3.5-5. mmol/L Normal 1 K 4.1 LAB L501.5900 98-107 mmol/L High CL 108 LAB L501.6100 21.0-3 mmol/L Normal 2.0 CO2 26.0 LAB L501.6200 5-15 Normal GAP 8 Performed By: #### L500.2500 #### [facility] [address] [facility] [address] PARTIAL THROMBOPLAST Collected: 07/07/2018 Status: F Source: [place] TIME 5:25 AM [facility] REPOSITORY TYPE CODE TESTS RESULT OUT OF REFERENCE UNITS RANGE LAB L300.4310 24.1-36.2 Seconds High PTT 65.5 Performed By: #### L300.4310 #### [facility] [address] [place], [address] PARTIAL THROMBOPLAST Collected: 07/06/2018 Status: F Source: [place] TIME 10:44 PM [facility] REPOSITORY TYPE CODE TESTS RESULT OUT OF REFERENCE UNITS RANGE LAB L300.4310 24.1-36.2 Seconds High PTT 54.4 Performed By: #### L300.4310 #### [facility] [address] [place], [address] BEDSIDE GLUCOSE Collected: 07/06/2018 Status: F Source: [place] 9:46 PM [facility] REPOSITORY TYPE CODE TESTS RESULT OUT OF REFERENCE UNITS RANGE LAB L501.080 70-110 mg/dL High BEDSIDE GLU 133 Result Comment: MANAGEMENT OF PATIENT CARE PER NURSING PROTOCOL Performed By: #### L501.080 #### [facility] Point of Care [address] [place] [address] CONSULTATION Observed: 07/06/2018 Status: F Source: [place] 5:30 PM [facility] REPOSITORY [facility] Medical Records Department [address] [place] [address] Consultation 07/06/18 1719 MR#: [id number] Acct: [id number] Name: REGINA ROJAS Rep #: [id number] : 1935 82 From: Jewel Calderon MD PCP: Josette Melendez MD Status: ADM IN Y Location: [place] [id number] Problem List (1) Non-STEMI (non-ST elevated myocardial infarction) Status: Acute (2) Abnormal EKG Status: Acute (3) Nocardia infection Status: Chronic Comment: 2004, right arm and left leg, continued suppressive therapy (4) HTN (hypertension) Status: Chronic Qualifiers: (5) PAD (peripheral artery disease) Status: Chronic Reason for Consult Date of Consultation: 07/06/18 Reason for Consultation: Abnormal EKG, non-STEMI, hypertension, hypercholesterolemia, peripheral vascular disease History of Present Illness: The patient is a 82 year old M, nondiabetic, with hypertension, unknown cholesterol, no previous known coronary artery disease, who suffered a subarachnoid hemorrhage in 2003 underwent a THREAT ANALYST shunt. 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 Patient has been paralyzed since 2005, and has had chronic cystitis with self-catheterization. In addition the patient has had a history of chronic nocardia infection along a previous surgery in his right forearm and brachial area for which he takes chronic antibiotic therapy. Around Monday night of this past week the patient developed some confusion and was not feeling well. This was similar to his urinary tract infection symptoms. His PCP was called and he was started on oral antibiotics on Monday. His mental confusion worsened and he gave way to slurred speech and dysarthria. Patient was brought to the emergency room for evaluation. Apparently no CT scan was performed. In the emergency room an EKG was obtained which demonstrated normal sinus rhythm with significant inferior and anterolateral ST segment depression. At no time the patient have any chest pain or shortness of breath. This gave way to troponin evaluation which was initially 2.55, decreased down to 1.66. Patient was started on aspirin and IV heparin. Patient was treated IV antibiotics and is slowly improving. He is mentating well, and has no further speech issues. He is remained hemodynamically stable. A 2D echo with Doppler was performed today which demonstrates intact LV function with an EF around 65%, mild aortic stenosis with mild aortic valvular thickening, stage II diastolic dysfunction, unable to quantitate RVSP Today his EKG has normalized to normal sinus rhythm with very subtle inferolateral ST segment changes..] Past Medical History Allergies/Adverse Reactions: Allergies Cephalosporins Allergy (Intermediate, Verified 07/05/18 10:04) Laryngospasms Penicillins Allergy (Intermediate, Verified 07/05/18 10:04) Rash IVP DYE Allergy (Uncoded 07/05/18 10:04) Rash Home Medications: Ambulatory Orders Medication Instructions Recorded Past Medical History (Chronic Problems): Chronic Problems Chronic pain (Chronic) Nocardia infection (Chronic) 2004, right arm and left leg, 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 Psychiatric History: No pertinent psych hx, - - he is very angry now and his attributes this to the steroids....she states it makes him mean. 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 - *Family History Maternal History Items: - - , depression Paternal History Items: - - Offspring History Items: - - 2 children, 4 grand children, 1 great grandchild, all in good health Lives: Spouse/ Significant Other Smoking Status: Never smoker Alcohol: None Drugs: None Review of Systems - Review of Systems General: Denies: Fever, Night Sweats, Fatigue Cardiovascular: Denies: Chest Discomfort, Shortness of Breath, Orthopnea, PND, Peripheral Edema, Palpitations, Lightheadedness, Dizziness, Near Syncope, Syncope Respiratory: Denies: Cough, Sputum Production, Hemoptysis Gastrointestinal: Denies: Hematemesis, Hematochezia, Melena Genitourinary: Denies: Dysuria, Hematuria Skin: Denies: Rash Subjectve: Patient laying in bed, no acute distress. Objective: Vital Signs Temp Pulse Resp BP Pulse Ox 98.9 F 75 16 129/59 H 94 07/06/18 15:00 07/06/18 15:13 07/06/18 15:00 07/06/18 15:00 07/06/18 15:00 Oxygen Flow Rate (L/min) 2 Oxygen Delivery Method Room Air Weight: 174 lb 6.17 oz Body Mass Index (BMI) 25.0 Intake and Output for Last 24 Hours Intake Total 1151.2 / 1151.2 3450 / 3450 Output Total 1925 / 1925 Balance 1151.2 / 1151.2 1525 / 1525 General: Awake, Alert, Oriented x 3 HEENT: PERRL, EOMI, Sclera Non Icteric Neck: Supple, Good ROM, No Lymph Node Enlargement Lungs: Clear to auscultation Cardiovascular: Regular Rhythm, Normal S1, Normal S2, No Rubs, No Gallops Murmur Murmur: Grade 2/6, Crescendo-Decrescendo Vascular: No Carotid Bruits, Normal Femoral Pulses, Normal Radial Pulses, Normal Dorsalis Pedal Pulse, Normal Posterior Tibial Pulses Abdomen: Bowel Sounds Present, Soft, Non Tender, No HSM, No Organomegaly Extremities: No Cyanosis, No Clubbing, No edema Neurological: No Focal Motor or Sensory Deficit 07/05/18 17:02: Troponin I 1.660 H* 07/05/18 18:48: APTT 54.2 H 07/06/18 02:45: Sodium 139, Potassium 4.1, Chloride 105, Carbon Dioxide 25.0, Anion Gap 9, BUN 27 H, Creatinine 0.92, Est GFR (MDRD) Af Amer 102, Est GFR (MDRD) Non-Af 84, BUN/Creatinine Ratio 29.3 H, Glucose 150 H, Calcium 7.8 L, Triglycerides 100, Cholesterol 107, LDL Cholesterol 50, VLDL Cholesterol 20, HDL Cholesterol 37 L 07/06/18 02:45: WBC 10.9, RBC 3.28 L, Hgb 10.9 L, Hct 33.6 L, MCV 102.4 H, MCH 33.2 H, MCHC 32.4, RDW 12.9, RDW Differential 47.4 H, Plt Count 96 L, MPV 9.7, Immature Gran % (Auto) 0.200, Neut % (Auto) 86.0 H, Lymph % (Auto) 8.3 L, [place] % (Auto) 5.0, Eos % (Auto) 0.4, Baso % (Auto) 0.1, Absolute Neuts (auto) 9.3 H, Total Counted Not Reportable 07/06/18 02:45: APTT 87.9 H 07/06/18 08:50: APTT 61.8 H 07/06/18 16:02: APTT 50.7 H Rhythm: EKG: As above ECHO: As above Stress Test: Cardiac Cath: PCI: CT Surgery: Holter monitor: EPS: PPM: CXR: Chest CT Scan: Assessment/Plan 1. Non-STEMI: Patient appears to have had a recurrence of his urinary tract infection, but this time with significant feeling of unwellness, dysarthria, and confusion. The patient has improved with IV antibiotics. His initial EKG showed what appeared to be ischemia along the inferior lateral leads. His echocardiogram shows normal intact LV function, unable to quantitate RVSP. His troponins initially were 2.5 and about trended down to 1.66. At no time as the patient developed any chest pain or anginal symptoms although he has several risk factors for coronary artery disease. I am concerned that the patient has had a history of subarachnoid hemorrhage, status post THREAT ANALYST shunt, and chronic nocardia in his right forearm. My preference would be to fully evaluate the patient in light of his normal LV function with a non-walking nuclear stress test to help identify any possible areas of ischemia. The patient has any evidence of ischemia on his nuclear imaging, would recommend a diagnostic coronary angiogram. The patient states that he is able to lay flat, and given his chronic nocardia in his right forearm, I am hesitant to proceed with right radial approach. The patient may be better served with right femoral artery approach should a catheterization be necessary. In the meantime I recommend continuing baby aspirin and Plavix at this time for his non-STEMI in the short-term, but would not continue in the long-term given his history of blood in his cerebral spinal fluid.. His THREAT ANALYST shunt was removed in 2005 and a subarachnoid hemorrhage was in 2003. The patient had been on previous anticoagulant therapy in the past however he developed blood in his cerebral spinal fluid and this was discontinued several years ago. Note that the patient is on aspirin and Plavix, would recommend discontinuation of his heparin tomorrow morning 07/07/18. 2. Hyperlipidemia: Recommend obtaining a fasting lipid profile. 3. Hypertension: Patient's blood pressure appears to be fairly well-controlled. Continue antihypertensive therapy. 4. Thank you very much for the opportunity to participate in the cardiac care of your patient. Consultation time took place between 4 and 4:30 PM. Code Visit Inpatient E AND M: 09900 Init Hosp L2 07/06/18 1730 <Electronically signed by Jewel Calderon MD> Date Jewel Calderon MD Cosigner Signature (if applicable): Date CC: Jewel Calderon MD; Josette Melendez MD Signed NUCLEAR STRESS TEST - Observed: 07/06/2018 Status: F Source: [facility] CHEMICAL 4:24 PM [facility] REPOSITORY [facility] Imaging Services [address] [place] [id number] Nuclear Stress Test - Chemical MR#: [id number] Acct: [id number] Name: REGINA ROJAS Rep #: [id number] : 1935 M 82 From: Faustino Mauro MD PCP: Josette Melendez MD Status: ADM IN Study: Nuclear Stress Test - Chemical Date of Exam: 07/06/18 Exam# [id number] Ordering Dr: Jewel Calderon MD Procedure: Stress and rest myocardial perfusion scan. History: Coronary artery disease. Technique: Rest SPECT perfusion scan was performed after the IV administration of 12 mCi technetium Myoview. The patient was then given a standard IV dose of Lexiscan. Stress SPECT imaging was performed after the IV administration of approximately 36.2 mCi technetium Myoview. Comparison: None Findings: There is a small apical anterior wall defect, at both stress and rest. Findings suggest infarct without ischemia. There are no definite wall motion abnormalities. Ejection fraction is normal at 54 %. NM/Nuclear Stress Test - Chemical IMPRESSION: Findings consistent with a relatively small apical anterior infarct. Ejection fraction is at lower limits of normal at 54%. Electronically Signed: Faustino Mauro MD at 11:51 EDT , Service support , CC: Jewel Calderon MD; Josette Melendez MD; Ai Vazquez Cotton Seed Culler: Signed PARTIAL THROMBOPLAST Collected: 07/06/2018 Status: F Source: [facility] TIME 4:02 PM [facility] REPOSITORY TYPE CODE TESTS RESULT OUT OF REFERENCE UNITS RANGE LAB L300.4310 24.1-36.2 Seconds High PTT 50.7 Performed By: #### L300.4310 #### [facility] [address] [place], [place], [address] BEDSIDE GLUCOSE Collected: 07/06/2018 Status: F Source: [place] 3:33 PM [facility] REPOSITORY TYPE CODE TESTS RESULT OUT OF REFERENCE UNITS RANGE LAB L501.080 70-110 mg/dL High BEDSIDE GLU 120 Result Comment: MANAGEMENT OF PATIENT CARE PER NURSING PROTOCOL Performed By: #### L501.080 #### [facility] Point of Care [address] [place] [address] BEDSIDE GLUCOSE Collected: 07/06/2018 Status: F Source: [facility] 11:26 AM [facility] REPOSITORY TYPE CODE TESTS RESULT OUT OF REFERENCE UNITS RANGE LAB L501.080 70-110 mg/dL High BEDSIDE GLU 136 Result Comment: MANAGEMENT OF PATIENT CARE PER NURSING PROTOCOL Performed By: #### L501.080 #### [facility] Point of Care [address] [place], [place] [id number] PARTIAL THROMBOPLAST Collected: 07/06/2018 Status: F Source: [facility] TIME 8:50 AM [facility] REPOSITORY Order Comment: Comments: Heparin drip TYPE CODE TESTS RESULT OUT OF REFERENCE UNITS RANGE LAB L300.4310 24.1-36.2 Seconds High PTT 61.8 Performed By: #### L300.4310 #### [facility] [address] [place], [address] BEDSIDE GLUCOSE Collected: 07/06/2018 Status: F Source: [place] 6:57 AM [facility] REPOSITORY TYPE CODE TESTS RESULT OUT OF REFERENCE UNITS RANGE LAB L501.080 70-110 mg/dL High BEDSIDE GLU 113 Result Comment: MANAGEMENT OF PATIENT CARE PER NURSING PROTOCOL Performed By: #### L501.080 #### [facility] Point of Care [address] [place] [address] CBC W/DIFF, AUTOMATED Collected: 07/06/2018 Status: F Source: [place] 2:45 AM [facility] REPOSITORY TYPE CODE TESTS RESULT OUT OF RANGE REFERENCE UNITS LAB L100.1000 4.4-11.0 K/mm3 Normal WBC 10.9 LAB L100.1200 4.6-6.2 M/mm3 Low RBC 3.28 LAB L100.1300 13.0-16.5 g/dl Low HGB 10.9 LAB L100.1400 40-54 % Low HCT 33.6 LAB L100.1500 80-94 fL High MCV 102.4 LAB L100.1600 27.0-32.0 pg High MCH 33.2 LAB L100.1700 32-36 g/gl Normal MCHC 32.4 LAB L100.1810 11.6-14.6 % Normal RDW CV 12.9 LAB L100.1820 35.1-43.9 fl High RDW SD 47.4 LAB L100.1900 150-450 K/mm3 Low PLT 96 LAB L100.2000 6.2-12.0 fl Normal MPV 9.7 LAB L100.2100 47-70 % High NEUT% 86.0 LAB L100.2200 19-41 % Low LY% 8.3 LAB L100.2300 0-10 % Normal MONO% 5.0 LAB L100.2400 0-5 % Normal EO% 0.4 LAB L100.2500 0-1 % Normal BASO% 0.1 LAB L100.2550 0.0-0.9 % Normal IM GRAN % 0.200 Result Comment: IG% - Immature Granulocytes (promyelocytes, myelocytes and metamyelocytes) > 1% indicates that a LEFT SHIFT is Present. LAB L100.2620 2.0-7.7 X10 3/uL High Absolute Neut 9.3 LAB L100.2720 0.83-4.51 X10 3/ul Normal Absolute Lymph 0.90 Performed By: #### L100.0100 #### [facility] [address] [place], [address] BASIC METABOLIC Collected: 07/06/2018 Status: F Source: [place] PROFILE ([facility]) 2:45 AM [facility] REPOSITORY TYPE CODE TESTS RESULT OUT OF RANGE REFERENCE UNITS LAB L501.0100 74-106 mg/dL High GLU 150 Result Comment: Fasting Glucose result greater than or equal to 126 mg/dL suggests DIABETES MELLITUS per A.D.A. criteria. Please note revised GLUCOSE reference range effective 2017. LAB L501.1000 7-18 mg/dL High BUN 27 LAB L501.1100 0.70-1.30 mg/dL Normal CREAT,SERUM 0.92 Result Comment: The validity of the calculated GFR AND GFRAA in patients over 70 years has not been determined. Clinical correlation is essential. LAB L501.1110 >60 mL/min Normal EST GFR 84 Result Comment: Non- GFR Calc LAB L501.1115 >60 mL/min Normal EST GFR - AA 102 Result Comment: GFR Calc LAB L501.1255 ml/min Normal Estimated CRCL 66.12 LAB L501.1300 10-20 RATIO High BUN/CRE 29.3 LAB L501.2200 8.5-10 mg/dL Low .1 CA 7.8 LAB L501.5300 136-14 mmol/L Normal 5 NA 139 LAB L501.5600 3.5-5. mmol/L Normal 1 K 4.1 LAB L501.5900 98-107 mmol/L Normal CL 105 LAB L501.6100 21.0-3 mmol/L Normal 2.0 CO2 25.0 LAB L501.6200 5-15 Normal GAP 9 Performed By: #### L500.2500, L500.4100 #### [facility] [address] [place], [address] LIPID PROFILE Collected: 07/06/2018 Status: F Source: [place] 2:45 AM [facility] REPOSITORY TYPE CODE TESTS RESULT OUT OF RANGE REFERENCE UNITS LAB L501.4900 200 mg/dL Normal CHOL 107 Result Comment: <200 mg/dL Desirable 200-240 mg/dL Borderline >240 mg/dL High Risk LAB L501.5000 mg/dL Normal TRIG 100 Result Comment: The drugs N-Acetylcysteine and Metamizole may falsely depress this assay. Serum Triglycerides Reference Interval Normal <150 mg/dL Borderline high 150 - 199 mg/dL High 200 - 499 mg/dL Very High > or = 500 mg/dL LAB L501.6400 mg/dL Low HDL 37 Result Comment: The drugs N-Acetylcysteine and Metamizole may falsely depress this assay. Reference Range HDL <40 mg/dL Low HDL Cholesterol HDL >or= 60 mg/dL High HDL Cholesterol LAB L501.6500 0-130 mg/dL Normal LDL 50 LAB L501.6600 5-40 mg/dL Normal VLDL 20 Performed By: #### L500.2500, L500.4100 #### [facility] [address] [place], [address] PARTIAL THROMBOPLAST Collected: 07/06/2018 Status: F Source: [place] TIME 2:45 AM [facility] REPOSITORY TYPE CODE TESTS RESULT OUT OF REFERENCE UNITS RANGE LAB L300.4310 24.1-36.2 Seconds High PTT 87.9 Performed By: #### L300.4310 #### [facility] [address] [place], [address] BEDSIDE GLUCOSE Collected: 07/05/2018 Status: F Source: [place] 9:15 PM [facility] REPOSITORY TYPE CODE TESTS RESULT OUT OF REFERENCE UNITS RANGE LAB L501.080 70-110 mg/dL High BEDSIDE GLU 224 Result Comment: Insulin Given MANAGEMENT OF PATIENT CARE PER NURSING PROTOCOL Performed By: #### L501.080 #### [facility] Point of Care [address] [place] [address] PARTIAL THROMBOPLAST Collected: 07/05/2018 Status: F Source: [place] TIME 6:48 PM [facility] REPOSITORY Order Comment: Comments: HEPARIN GTT TYPE CODE TESTS RESULT OUT OF REFERENCE UNITS RANGE LAB L300.4310 24.1-36.2 Seconds High PTT 54.2 Performed By: #### L300.4310 #### [facility] [address] [place], [address] ECHOCARDIOGRAM COMPLETE Observed: 07/05/2018 Status: F Source: [place] 6:10 PM [facility] REPOSITORY [facility] Cardiovascular Services [address] [place] [address] Echo Complete 07/05/18 1522 MR#: [id number] Acct: [id number] Name: REGINA ROJAS Rep #: [id number] : 1935 82 From: Jewel Calderon MD Attending Dr: Ai Vazquez Status: ADM IN Ordering Dr: Ai Vazquez MD Date: 07/05/18 Location: [facility] Sex: M C Admitted: 07/05/18 Reason For Study: S/P AK Procedure This was a 2D Doppler, Color Flow transthoracic echocardiogram. Patient scanned supine. Exam performed portable in patient room. Left Ventricle Normal size and thickness. The estimated ejection fraction is 65 %. Stage 2 diastolic dysfunction. No regional wall motion abnormalities noted. Right Ventricle Normal size and thickness. Normal systolic function. Atria Normal left atrium. Normal right atrium. Normal atrial septum. Mitral Valve Mild diffuse mitral valve thickening. Severe mitral annular calcification extending into the posterior leaflet. Trivial mitral valve insufficiency. Tricuspid Valve Normal tricuspid valve. Unable to estimate RV systolic pressure due to inadequate jet, pulmonary artery pressure probably normal. Aortic Valve Trisinus/trileaflet aortic valve. Mild diffuse aortic valve thickening. Moderate focal aortic valve thickening. Mild restriction of the aortic valve. Mild aortic stenosis. Peak aortic valve gradient 10 mmHg. Mean aortic valve gradient 5 mmHg. Pulmonic Valve The pulmonic valve is not well visualized. Great Vessels Normal aortic root. Normal arch. Normal inferior vena cava. Inferior vena cava collapse with sniff. Pericardium/Pleural No pericardial effusion. MMode/2D Measurements AND Calculations LVIDd: 3.5 cm IVSd: 1.3 cm LVOT diam: 2.0 cm LVIDs: 2.2 cm LVPWd: 1.1 cm LVOT area: 3.0 cm2 FS: 36.8 % Ao root diam: 3.3 cm Time Measurements MV dec time: 0.16 sec Doppler Measurements AND Calculations MV E max ifrah: 106.4 cm/sec Lat Peak E' Ifrah: 9.5 cm/sec Med Peak E' Ifrah: 6.8 cm/sec MV A max ifrah: 80.8 cm/sec E/E' lat: 11.2 E/E' med: 15.7 MV E/A: 1.3 MV V2 max: 132.9 cm/sec MV P1/2t max ifrah: 132.9 cm/sec Ao V2 max: 158.9 cm/sec MV max P.1 mmHg MV P1/2t: 66.0 msec Ao max P.1 mmHg MV V2 mean: 61.2 cm/sec MV dec slope: 589.4 cm/sec2 Ao V2 mean: 101.8 cm/sec MV mean P.9 mmHg MVA(P1/2t): 3.3 cm2 Ao mean P.0 mmHg MV V2 VTI: 38.5 cm Ao V2 VTI: 35.4 cm MVA(VTI): 2.1 cm2 JUAN(I,D): 2.3 cm2 JUAN(V,D): 2.2 cm2 LV V1 max: 116.4 cm/sec SV(LVOT): 79.7 ml PA V2 max: 106.9 cm/sec LV V1 max P.4 mmHg LV V1 mean P.7 mmHg LV V1 mean: 75.8 cm/sec LV V1 VTI: 26.3 cm Interpretation Summary The estimated ejection fraction is 65 %. Stage 2 diastolic dysfunction. Trivial mitral valve insufficiency. Unable to estimate RV systolic pressure due to inadequate jet, pulmonary artery pressure probably normal. Mild aortic stenosis. Compared to echo report dated 01/30/2018, no appreciable changes noted. Ordering Physician: Ai Vazquez Referring Physician: JOSETTE MELENDEZ Performed By: Franklin Sanchez RCS 07/05/18 1809 Date Jewel Calderon MD CC: Josette Melendez MD; Ai Vazquez Date Dictated: 07/05/18 1522 Date Transcribed: 07/05/181808 Cotton Seed Culler: Signed TROPONIN-I Collected: 07/05/2018 Status: F Source: [place] 5:02 PM [facility] REPOSITORY Order Comment: 'TROP' Serial specimen #1, #2 or #3: 3 TYPE CODE TESTS RESULT OUT OF RANGE REFERENCE UNITS LAB L501.4010 <0.045 ng/mL High alert 1.660 TROPONIN-I Result Comment: Critical Result(s) Called at: 18:09:25 07/05/2018 by: Olivia Herrera TROPONIN-I EXPECTED VALUES <0.045 Negative 0.045 - 0.590 Consistent with Cardiac Damage > OR = 0.600 Critical Value Not every elevated troponin is indicative of AK. These values should be used with clinical judgement in examining the patient's clinical picture for diagnosis. To establish a diagnosis of AK versus myocardial injury, there must be a demonstrated rise and/or fall in the troponin values, in addition to ischemic symptoms, EKG changes, new regional wall motion abnormality, and/or angiographical evidence. PLEASE NOTE: REFERENCE RANGES EDITED 18 Performed By: #### L501.4010 #### [facility] [address] [facility] [place], [address] BEDSIDE GLUCOSE Collected: 07/05/2018 Status: F Source: [place] 3:11 PM [facility] REPOSITORY TYPE CODE TESTS RESULT OUT OF REFERENCE UNITS RANGE LAB L501.080 70-110 mg/dL High BEDSIDE GLU 126 Result Comment: MANAGEMENT OF PATIENT CARE PER NURSING PROTOCOL Performed By: #### L501.080 #### [facility] Point of Care [address] [facility] [place] [address] HISTORY AND PHYSICAL Observed: 07/05/2018 Status: F Source: [place] EXAM 1:57 PM [facility] REPOSITORY [facility] Medical Records Department [address] [facility] [place] [address] History and Physical 07/05/18 1317 MR#: [id number] Acct: [id number] Name: REGINA ROJAS Rep #: [id number] : 1935 82 From: iA Vazquez MD PCP: Josette Melendez MD Status: ADM IN Location: [place] [address] Problem List (1) Chronic pain Status: Chronic Qualifiers: (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 (3) Syringomyelia Status: Chronic (4) HTN (hypertension) Status: Chronic Qualifiers: (5) PAD (peripheral artery disease) Status: Chronic (6) Paraplegia Status: Chronic Comment: due to transverse myelitis History of Present Illness Date of Admission: 07/05/18 Chief Complaint: Generalized body weakness, pains and aches. The patient is a 82 year old M with past medical history as mentioned above presented to the emergency room because of generalized weakness, body pains and aches as well as fever. Symptoms started 2 days ago generalized weakness, generalized body aches and pains involving most of his joints but more pronounced on both elbows, aching pain, associated with fever of 101.5 Fahrenheit and without aggravating or relieving factors. He just felt weak and tired all over. Patient denied chest pain, shortness of breath, palpitation, dizziness, lightheadedness, syncope or presyncope. He had a history of transverse myelitis complicated by paraplegia and patient has been wheelchair-bound for long time. 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 He had a history of, Lasix, losartan. He has a history of chronic urinary retention and he has been doing self-catheterization at home twice daily. He has history of recurrent UTI as well. In the emergency department, patient was afebrile, blood pressure and heart rate was stable and his pulse ox was 93% on 2 L. His routine blood work was remarkable for leukocytosis, creatinine of 1.33, otherwise normal. Chest x-ray revealed poor ventilation of the right lung, no acute infiltrate. His EKG revealed normal sinus rhythm without evidence of acute ST elevation. Troponin came back high at 2.53. He is being admitted for acute complicated cystitis and acute non-ST elevation AK and acute kidney injury. 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 Psychiatric History: No pertinent psych hx, - - he is very angry now and his attributes this to the steroids....she states it makes him mean. 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 Lives: Spouse/ Significant Other Smoking Status: Never smoker Alcohol: None Drugs: None - *Family History Maternal History Items: - - , depression Paternal History Items: - - Offspring History Items: - - 2 children, 4 grand children, 1 great grandchild, all in good health Review of Systems Constitutional: Reports: Fever, Weakness, Fatigue. Denies: Anorexia, Chills Eyes: Denies: Blurred vision, Double vision, Drainage, Redness HEENT: Denies: Difficulty Hearing, Ear Pain, Eye Pain, Nasal Congestion, Sore Throat Cardiovascular: Denies: Chest Pain, Chest Pressure, Chest Tightness, Heaviness, Light Headedness, Palpitations, Syncope Respiratory: Denies: Cough, Hemoptysis, Pleuritic Pain, Sputum production, Wheezing Gastrointestinal: Denies: Abdominal Pain, Constipation, Diarrhea, Nausea, Vomiting Genitourinary: Denies: Dysuria, Frequency, Hematuria Musculoskeletal: Reports: Joint Pain, Muscle pain. Denies: Arm Pain, Foot Pain Skin: Denies: Dryness, Rash Neurological: Denies: Balance problems, Double vision, Change in Speech, Slurred speech, Headaches Psychiatric: Reports: Depression. Denies: Anxiety Endocrine: Denies: Change in Body Habitus, Polydipsia VTE Information - Inpt Only VTE Present on Admission: No VTE Mechan Device Prophylaxis: None VTE Pharm Prophylaxis ordered?: Yes - Physical Exam General: Alert, Oriented x3, Cooperative, No apparent distress HEENT: Atraumatic, PERRLA, EOMI, Normocephalic Oral: Moist Mucosa, No Gingival or Mucosal Lesions/ Ulcerations Neck: Supple, No JVD, Negative Carotid Bruits, Trachea Midline, Thyroid Normal Size and Texture Lungs: Clear to auscultation, No rhonchi, No wheeze, No rales, Diminished Cardiovascular: Regular rate, Regular Rhythm, Normal S1, Normal S2, PMI Normal Abdomen: Bowel Sounds Present, Soft, Non Tender, Non-Distended, No Hepato-splenomegaly Extremities: No clubbing, No cyanosis, No edema Skin: No rashes, No breakdown Lymphatic: No Cervical, Supraclavicular, or Inguinal Adenopathy Neurological: Cranial nerves II-XII grossly intact, - - Paraplegia. Psych/Mental Status: Normal Affect, Appropriate, Alert and oriented to time, place, person, mood and affect Vital Signs Temp Pulse Resp BP Pulse Ox 98.9 F 70 14 110/76 16 07/05/18 10:02 07/05/18 12:16 07/05/18 12:16 07/05/18 12:16 07/05/18 12:16 Laboratory Tests WBC 16.4 H (4.4-11.0) K/mm3 Clinical Impression(s) from Imaging Studies Chest X-Ray 07/05/18 10:22 Assessment/Plan This is an 82 years old male patient presented to the emergency room because of weakness, fever, body aches and pains, found to have acute cystitis as well as acute non-ST elevation AK and acute kidney injury. #[address] elevation AK: EKG revealed no acute ST elevation, no acute ischemic changes. Troponin is elevated. Patient denies any chest pain. His vital signs are stable. He was started on IV heparin drip in the ER, received loading dose of Plavix. Plan: Admit to PCU, cardiac monitoring, serial cardiac enzymes, repeat EKG tomorrow morning, 2D echocardiogram, continue IV heparin drip, daily Plavix, continue Coreg, isosorbide mononitrate, losartan, cardiology consult, repeat CBC and BMP tomorrow morning, PT OT evaluation and treatment. #2 acute complicated cystitis: Context of history of chronic urinary retention on self-catheterization at home with history of recurrent UTIs. Urinalysis revealed cloudy urine, positive for leukocyte esterase, there was 25-50 cc and 2+ bacteria. Urine and blood culture sent. Lactic acid is normal. Plan: IV ciprofloxacin, follow blood and urine cultures. #3 acute kidney injury: Likely because of infection and dehydration. Admission creatinine is 1.33. Most recent creatinine was 0.79 from January,. Plan for IV fluids for hydration, repeat BMP tomorrow morning. #3 hypertension: Blood pressure is stable at this time, continue Coreg, isosorbide mononitrate, losartan with holding parameters. #4 history of transverse myelitis/subsequent paraplegia: Patient is wheelchair-bound. Supportive care, PT OT exertion and treatment. #5 history of subarachnoid hemorrhage/subsequent THREAT ANALYST shunt/syringomyelia: Stable, no acute issues. #6 chronic pain syndrome: Continue gabapentin, MS Contin and Percocet as needed. 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 #8 peripheral vascular disease: Stable. #9 DVT prophylaxis: He is on IV heparin drip. This note was generated with Mobile Bridge dictation software. It may contain incorrect words, spelling, and punctuation that were not noted in checking the note before signing. Code Visit Inpatient E AND M: 18334 Init Hosp L3 07/05/18 1357 <Electronically signed by Ai Vazquez MD> Date Ai Vazquez MD Cosigner Signature: Date (if applicable) CC: Josette Melendez MD; Ai Vazquez Signed EMERGENCY DEPARTMENT Observed: 07/05/2018 Status: F Source: [place] SUMMARY 12:34 PM [facility] REPOSITORY [facility] Medical Records Department [address] [place] [address] Emergency Department Summary 07/05/18 1217 MR#: [id number] Acct: [id number] Name: REGINA ROJAS Rep #: [id number] : 1935 82 From: Delvis Soriano MD PCP: Josette Melendez MD Status: REG ER - ER Visit Summary Date of Service: 07/05/18 Chief Complaint: [generalized weakness] History of Present Illness: The patient is a 82 M [that presents with generalized weakness, fever, and chills that began approximately 2 days ago. Family states he was so weak all over over the last 1-2 days that it was difficult for them to wake him and get him in his wheelchair. 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 He started Cipro yesterday for a presumed UTI as he performs self-catheterization of his bladder. He is also on daily steroids. He denies any chest pain or shortness of breath. No cough or sputum production. He denies any abdominal pain. He has no other complaints.] Physical Examination: [General: The patient appears well and in no apparent distress. Patient is resting comfortably on cart. Skin: Warm, dry, no pallor noted. No rash. Head: Normocephalic, atraumatic Neck: Supple, nontender. No JVD. Eye: PERRLA, EOMI ENT: Moist mucus membranes, pharynx within normal limits. Cardiovascular: Regular Rate and Rhythm, no gallups or rubs Respiratory: Patient is in no distress, no accessory muscle use, lungs are diminished bilaterally on auscultation Musculoskeletal: normal ROM, no deformity, no tenderness, no swelling. 2+ radial and DP pulses symmetric. GI: No tenderness to palpation, no masses appreciated. No rebound, guarding, or rigidity noted. Neurological: A AND O, normal strength and sensation bilateral upper extremities. Chronic weakness lower extremities secondary to paraplegia. GCS 15. Psychiatric: Cooperative] Test Results: [EKG showed nonspecific ST depression that appeared worse inferiorly and laterally as compared to prior EKG from 2016. No ST elevation or arrhythmia. White blood cell count was 16.5. Creatinine was 1.3. INR was 1.1. Lactate was negative. Troponin elevated at 2.53. Urinalysis shows white cells and bacteria consistent with UTI. Chest x-ray shows suboptimal inspiration but no definite infiltrates or effusions.] Emergency Department Course and Treatment: [She was given aspirin. He continues to deny any chest pain or shortness of breath. He is hemodynamically stable. I spoke with cardiology, Dr. Calderon at 1202 who recommended Plavix in addition to heparin and aspirin that have already been ordered for treatment of non-STEMI. He was agreeable with patient admission and would like a repeat echo on admission. Patient was discussed with hospitalist Dr. Vazquez who is agreeable with admission. Patient was given IV Cipro for UTI. On reevaluation at 1210 patient appears stable, vitals remained stable. He continues to deny any chest pain or shortness of breath. At this time patient will be admitted to PCU.] Treatment Plan: [See above] Disposition: [Admission, PCU] Impression: [Non-STEMI, generalized weakness, UTI] Critical care time 47 minutes. This note was generated with Mobile Bridge dictation software. It may contain incorrect words, spelling, and punctuation that were not noted in review of the chart prior to signing ED Disposition - Plan for ED Patient: Chief Complaint: General Illness Referrals: Josette Melendez MD [Primary Care Provider] - What to do if you have Problems For any increased pain, shortness of breath, bleeding, nausea or vomiting, chest pain, or any unexpected problems, contact your Primary Care Provider. Call [facility] ([phone]) or report to the closest Emergency Room. Call 911 if necessary. 07/05/18 1234 <Electronically signed by Delvis Soriano MD> Date Delvis Soriano MD Cosigner Signature (If Indicated): Date CC: Josette Melendez MD URINALYSIS, COMPLETE Collected: 07/05/2018 Status: F Source: [place] 11:20 AM [facility] REPOSITORY Order Comment: Order Date: 07/05/18 How was Urine Obtained? CLEAN CATCH TYPE CODE TESTS RESULT OUT OF RANGE REFERENCE UNITS LAB L400.3000 Yellow COLOR Normal Yellow LAB L400.3050 Clear Normal CLARITY Cloudy LAB L400.3200 Normal mg/dl Normal GLUCOSE, UR Normal LAB L400.3300 Negative mg/dL Normal BILIRUBIN URINE Negative LAB L400.3400 Negative mg/dl Normal KETONE UR Negative LAB L400.3465 1.002-1.030 Normal SP.GR. DIPSTX 1.020 LAB L400.3550 5.0 - 8.0 pH UR Normal 5.0 LAB L400.3600 Negative mg/dl High PROT 30 DIPSTX LAB L400.3700 Normal mg/dl High 1 UROBILI LAB L400.3750 Negative Normal NITRITE UR Negative LAB L400.3780 Negative /ul High 25 OCCULT BLOOD-UR LAB L400.3800 Negative /ul High LEUK ESTERASE 500 LAB L400.4050 0-5 /hpf WBC Normal 25-50 SEEN LAB L400.4100 0-5 /hpf Normal RBC-UA 0-5 SEEN LAB L400.4150 0-5 /hpf SQUAM Normal EPI 0-5 SEEN LAB L400.4300 None Seen /hpf 2+ Normal BACTERIA LAB L400.4350 <or=2+ /hpf 0 Normal MUCUS, URINE SEEN Performed By: #### L400.0001 #### [facility] [address] [place], [address] Observed: 07/05/2018 Status: F Source: [place] CULTURE, URINE 11:20 AM [facility] REPOSITORY Order Date: 07/05/18 Urine Culture Below infection level. 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, [address] Observed: 07/05/2018 Status: F Source: [place] CULTURE, BLOOD (WB) 11:00 AM [facility] REPOSITORY BC No growth in 5 days. Performed By: #### M200.1000 #### [facility] [address] [place], [place], [address] CBC W/DIFF, AUTOMATED Collected: 07/05/2018 Status: F Source: [place] 10:43 AM [facility] REPOSITORY TYPE CODE TESTS RESULT OUT OF RANGE REFERENCE UNITS LAB L100.1000 4.4-11.0 K/mm3 High WBC 16.4 LAB L100.1200 4.6-6.2 M/mm3 Low RBC 3.95 LAB L100.1300 13.0-16.5 g/dl Low HGB 12.9 LAB L100.1400 40-54 % Normal HCT 40.6 LAB L100.1500 80-94 fL High MCV 102.8 LAB L100.1600 27.0-32.0 pg High MCH 32.7 LAB L100.1700 32-36 g/gl Low MCHC 31.8 LAB L100.1810 11.6-14.6 % Normal RDW CV 13.6 LAB L100.1820 35.1-43.9 fl High RDW SD 51.0 LAB L100.1900 150-450 K/mm3 Low PLT 138 LAB L100.2000 6.2-12.0 fl Normal MPV 9.7 LAB L100.2100 47-70 % High NEUT% 88.4 LAB L100.2200 19-41 % Low LY% 5.7 LAB L100.2300 0-10 % Normal MONO% 5.5 LAB L100.2400 0-5 % Normal EO% 0.2 LAB L100.2500 0-1 % Normal BASO% 0.1 LAB L100.2550 0.0-0.9 % Normal IM GRAN % 0.100 Result Comment: IG% - Immature Granulocytes (promyelocytes, myelocytes and metamyelocytes) > 1% indicates that a LEFT SHIFT is Present. LAB L100.2620 2.0-7.7 X10 3/uL High Absolute Neut 14.5 LAB L100.2720 0.83-4.51 X10 3/ul Normal Absolute Lymph 0.93 Performed By: #### L100.0100 #### [facility] [address] [facility] [place], [address] PROTHROMBIN TIME W/INR Collected: 07/05/2018 Status: F Source: [place] 10:43 AM [facility] REPOSITORY TYPE CODE TESTS RESULT OUT OF RANGE REFERENCE UNITS LAB L300.4150 11.7-14.9 SECONDS Normal PROTIME 13.7 LAB L300.4200 Normal INR 1.1 Performed By: #### L300.3900 #### [facility] [address] [place], [address] LACTIC ACID Collected: 07/05/2018 Status: F Source: [place] 10:43 AM [facility] REPOSITORY Order Comment: Yes/No query for Sepsis Lactate Rule Y TYPE CODE TESTS RESULT OUT OF RANGE REFERENCE UNITS LAB L503.6005 0.4-2.0 mmol/L Normal LACTIC ACID 1.7 Performed By: #### L503.6005 #### [facility] [address] [place], [address] BASIC METABOLIC Collected: 07/05/2018 Status: F Source: [place] PROFILE (BMP) 10:43 AM [facility] REPOSITORY TYPE CODE TESTS RESULT OUT OF RANGE REFERENCE UNITS LAB L501.0100 74-106 mg/dL High GLU 121 Result Comment: Fasting Glucose result from 100 to 125 mg/dL suggests IMPAIRED HOMEOSTASIS per A.D.A. criteria. Please note revised GLUCOSE reference range effective 2017. LAB L501.1000 7-18 mg/dL High BUN 28 LAB L501.1100 0.70-1.30 mg/dL High CREAT,SERUM 1.33 Result Comment: The validity of the calculated GFR AND GFRAA in patients over 70 years has not been determined. Clinical correlation is essential. LAB L501.1110 >60 mL/min Low EST GFR 55 Result Comment: Non- GFR Calc LAB L501.1115 >60 mL/min Normal EST GFR - AA 66 Result Comment: GFR Calc LAB L501.1255 ml/min Normal Estimated CRCL 45.74 LAB L501.1300 10-20 RATIO High BUN/CRE 21.1 LAB L501.2200 8.5-10 mg/dL Normal .1 CA 8.5 LAB L501.5300 136-14 mmol/L Normal 5 NA 136 LAB L501.5600 3.5-5. mmol/L Normal 1 K 4.4 LAB L501.5900 98-107 mmol/L Normal CL 99 LAB L501.6100 21.0-3 mmol/L High 2.0 CO2 34.0 LAB L501.6200 5-15 Low GAP 3 Performed By: #### L500.2500, L501.4010 #### [facility] [address] [place], [place], [address] TROPONIN-I Collected: 07/05/2018 Status: F Source: [place] 10:43 AM [facility] REPOSITORY TYPE CODE TESTS RESULT OUT OF RANGE REFERENCE UNITS LAB L501.4010 <0.045 ng/mL High alert 2.530 TROPONIN-I Result Comment: Critical Result(s) Called at: 11:22:16 07/05/2018 by: Rosetta Hand2 TROPONIN-I EXPECTED VALUES <0.045 Negative 0.045 - 0.590 Consistent with Cardiac Damage > OR = 0.600 Critical Value Not every elevated troponin is indicative of AK. These values should be used with clinical judgement in examining the patient's clinical picture for diagnosis. To establish a diagnosis of AK versus myocardial injury, there must be a demonstrated rise and/or fall in the troponin values, in addition to ischemic symptoms, EKG changes, new regional wall motion abnormality, and/or angiographical evidence. PLEASE NOTE: REFERENCE RANGES EDITED 18 Performed By: #### L500.2500, L501.4010 #### [facility] [address] [place], [place], [address] PARTIAL THROMBOPLAST Collected: 07/05/2018 Status: F Source: [place] TIME 10:43 AM [facility] REPOSITORY TYPE CODE TESTS RESULT OUT OF RANGE REFERENCE UNITS LAB L300.4310 24.1-36.2 Seconds Normal PTT 26.4 Performed By: #### L300.4310 #### [facility] [address] [place], [address] Observed: 07/05/2018 Status: F Source: [place] CULTURE, BLOOD (WB) 10:43 AM [facility] REPOSITORY BC No growth in 5 days. Performed By: #### M200.1000 #### [facility] [address] [place], [address] CHEST 1 VIEW Observed: 07/05/2018 Status: F Source: [place] (PORTABLE) 10:24 AM [facility] REPOSITORY [facility] Imaging Services [address] [place] [address] Chest 1 View (Portable) MR#: [id number] Acct: [id number] Name: REGINA ROJAS Rep #: [id number] : 1935 M 82 From: Jose Villarreal MD PCP: Josette Melendez MD Status: [facility] ER Study: Chest 1 View (Portable) Date of Exam: 07/05/18 Exam# [id number] Ordering Dr: Delvis Soriano MD STUDY: X-RAY CHEST REASON FOR EXAM: Male, 82 years old. Chest pain. General illness. TECHNIQUE: Single AP upright portable chest. COMPARISON: 11/10/2016 FINDINGS: Vena cava filter is identified with the superior tip projecting just right lateral of the taylor, appears stable. Small caliber tubing overlies the right medial hemithorax and right lower lateral neck soft tissues, appears stable. Different small caliber tubing is seen in the right subdiaphragmatic region with medial tip projecting over the dome of the liver, appears stable. The lungs show mild suboptimal inspiration with mild right greater and left elevated diaphragm without active focal pulmonary consolidation with air bronchograms, large pleural effusion or abnormally dilated pulmonary vessels are identified. Minimal right greater and left bibasal subtle diffuse heterogeneous opacities are seen suggesting minimal subsegmental atelectasis. No large gross pneumothorax suggested. Normal size heart. No focal mediastinal or left hilar mass density or widening seen. Moderate large right infrahilar pulmonary vessels are seen, likely summation shadow with adjacent subsegmental atelectasis described above showing similar appearance to prior chest study 11/08/2016. No change heavily calcified visualized aortic knob. No acute osseous or mallee seen. High riding left humerus seen with decreased acromion-humeral distance suggesting chronic rotator cuff tear. Severe degenerative left glenohumeral joint suggested. 2 rotator cuff anchor screws thickening right humeral head. Degenerative changes thoracic spine appear stable. There is no demonstrated abnormality of the visualized soft tissue structures of the upper abdomen. No subdiaphragmatic free air seen grossly. IMPRESSION: Nonacute chest with suboptimal inspiration. Minimal bibasal subtotal atelectasis due to suboptimal inspiration. Electronically Signed: Jose Villarreal, at 11:31 EDT Tel , Service support , RAD/Chest 1 View (Portable) CC: Marek Soriano MD; Josette Melendez MD [employer] Seed Culler: Signed ERYTHROCYTE SED RATE Collected: 02/21/2018 Status: F Source: [place] 11:06 AM [facility] REPOSITORY Order Comment: Order Date: 07/17/17 Order Info: [id number] - CBCD Order Date: 02/20/18 Order Info: [id number] - SED TYPE CODE TESTS RESULT OUT OF RANGE REFERENCE UNITS LAB L102.0000 0-20 mm/hr Normal SED RATE 16 Performed By: #### L101.9900 #### [facility] [place], [address] CBC W/DIFF, AUTOMATED Collected: 02/21/2018 Status: F Source: [place] 11:06 AM [facility] REPOSITORY Order Comment: Order Date: 07/17/17 Order Info: [id number] - CBCD Order Date: 02/20/18 Order Info: [id number] - SED TYPE CODE TESTS RESULT OUT OF RANGE REFERENCE UNITS LAB L100.1000 4.4-11.0 K/mm3 High WBC 11.5 LAB L100.1200 4.6-6.2 M/mm3 Low RBC 4.21 LAB L100.1300 13.0-16.5 g/dl Normal HGB 13.7 LAB L100.1400 40-54 % Normal HCT 42.0 LAB L100.1500 80-94 fL High MCV 99.8 LAB L100.1600 27.0-32.0 pg High MCH 32.5 LAB L100.1700 32-36 g/gl Normal MCHC 32.6 LAB L100.1810 11.6-14.6 % Normal RDW CV 13.0 LAB L100.1820 35.1-43.9 fl High RDW SD 46.7 LAB L100.1900 150-450 K/mm3 Normal PLT 239 LAB L100.2000 6.2-12.0 fl Normal MPV 9.7 LAB L100.2100 47-70 % High NEUT% 82.0 LAB L100.2200 19-41 % Low LY% 10.6 LAB L100.2300 0-10 % Normal MONO% 6.6 LAB L100.2400 0-5 % Normal EO% 0.4 LAB L100.2500 0-1 % Normal BASO% 0.1 LAB L100.2550 0.0-0.9 % Normal IM GRAN % 0.300 Result Comment: IG% - Immature Granulocytes (promyelocytes, myelocytes and metamyelocytes) > 1% indicates that a LEFT SHIFT is Present. LAB L100.2620 2.0-7.7 X10 3/uL High Absolute Neut 9.4 LAB L100.2720 0.83-4.51 X10 3/ul Normal Absolute Lymph 1.22 Performed By: #### L100.0100, L506.1000, L500.4050, L501.9520 #### [place] [facility] [address] [place], [address] VITAMIN D,25 HYDROXY Collected: 02/21/2018 Status: F Source: [place] 11:06 AM [facility] REPOSITORY Order Comment: Order Date: 07/17/17 Order Info: [id number] - VITD25 TYPE CODE TESTS RESULT OUT OF REFERENCE UNITS RANGE LAB L506.1000 29.95-100.01 ng/mL Low Vitamin D 25.0 25-OH Result Comment: Vitamin D 25(OH) Status Range Deficiency <20 ng/mL (50nmol/L) Insuffciency 20 - 30 ng/mL (50 - 75 nmol/L) Sufficiency 30 - 100 ng/mL (75 - 250 nmol/L) Toxicity >100 ng/mL (>250 nmol/L) Performed By: #### L100.0100, L506.1000, L500.4050, L501.9520 #### [facility] [address] [place], [address] COMPREHENSIVE METABOLIC Collected: 02/21/2018 Status: F Source: [place] 11:06 AM [facility] REPOSITORY Order Comment: Order Date: 07/17/17 Order Info: [id number] - CMP Order Info: [id number] - TSH TYPE CODE TESTS RESULT OUT OF RANGE REFERENCE UNITS LAB L501.0100 74-106 mg/dL Normal GLU 80 Result Comment: Please note revised GLUCOSE reference range effective 2017. LAB L501.1000 7-18 mg/dL High BUN 20 LAB L501.1100 0.70-1.30 mg/dL Normal CREAT,SERUM 0.79 Result Comment: The validity of the calculated GFR AND GFRAA in patients over 70 years has not been determined. Clinical correlation is essential. LAB L501.1110 >60 mL/min Normal EST GFR 101 Result Comment: Non- GFR Calc LAB L501.1115 >60 mL/min Normal EST GFR - AA 122 Result Comment: GFR Calc LAB L501.1300 10-20 RATIO High BUN/CRE 25.4 LAB L501.1500 6.4-8.2 g/dL T Normal PROT 7.2 LAB L501.1800 3.2-5.0 g/dL Normal ALB 3.4 LAB L501.1950 2.2-4.2 g/dL Normal GLOB 3.8 LAB L501.2000 0.9-2.4 RATIO Normal A/G 0.9 LAB L501.2200 8.5-10.1 mg/dL CA Normal 8.7 LAB L501.4100 15-37 U/L Normal AST 34 LAB L501.4305 45-117 U/L High ALK P 172 LAB L501.4405 16-61 U/L High ALT 69 Result Comment: Please note revised ALT reference range effective 2017. LAB L501.4600 0.20-1.00 mg/dL Normal T BILI 0.60 LAB L501.5300 136-145 mmol/L Normal NA 138 LAB L501.5600 3.5-5.1 mmol/L Normal K 3.9 LAB L501.5900 98-107 mmol/L Normal CL 99 LAB L501.6100 21.0-32.0 mmol/L Normal CO2 31.0 LAB L501.6200 5-15 Normal GAP 8 Performed By: #### L100.0100, L506.1000, L500.4050, L501.9520 #### [facility] [address] [place], [place], [address] THYROID STIM HORMONE Collected: 02/21/2018 Status: F Source: [place] (TSH) 11:06 AM [facility] REPOSITORY Order Comment: Order Date: 07/17/17 Order Info: [id number] - CMP Order Info: [id number] - TSH TYPE CODE TESTS RESULT OUT OF RANGE REFERENCE UNITS LAB L501.9520 0.358-3.74 uIU/mL Normal TSH 3.27 Performed By: #### L100.0100, L506.1000, L500.4050, L501.9520 #### [facility] [address] [facility] [place], [address] CRP Collected: 02/21/2018 Status: F Source: [place] 11:06 AM [facility] REPOSITORY Order Comment: Order Date: 07/17/17 Order Info: [id number] - CMP Order Info: [id number] - TSH TYPE CODE TESTS RESULT OUT OF RANGE REFERENCE UNITS LAB L501.6710 0.0-3.0 mg/L High 5.28 C-REACTIVE PROT Result Comment: C-Reactive Protein (CRP) provides useful information for the diagnosis, therapy and monitoring of inflammatory processes and associated diseases. For the evaluation of Relative Risk for Cardiovascular Disease, a High Sensitivity CRP (HSCRP) should be ordered. Performed By: #### L501.6710 #### [facility] [address] [address] [place], [address] ERYTHROCYTE SED RATE Collected: 02/05/2018 Status: F Source: [place] 12:30 PM [facility] REPOSITORY TYPE CODE TESTS RESULT OUT OF RANGE REFERENCE UNITS LAB L102.0000 0-20 mm/hr High SED RATE 42 Performed By: #### L101.9900 #### [facility] [facility] [place], [address] CRP Collected: 02/05/2018 Status: F Source: [place] 12:30 PM [facility] REPOSITORY TYPE CODE TESTS RESULT OUT OF RANGE REFERENCE UNITS LAB L501.6710 0.0-3.0 mg/L High 21.50 C-REACTIVE PROT Result Comment: C-Reactive Protein (CRP) provides useful information for the diagnosis, therapy and monitoring of inflammatory processes and associated diseases. For the evaluation of Relative Risk for Cardiovascular Disease, a High Sensitivity CRP (HSCRP) should be ordered. Performed By: #### L501.6710 #### [facility] [place], [address] BEDSIDE GLUCOSE Collected: 01/31/2018 Status: F Source: [place] 12:03 PM [facility] REPOSITORY TYPE CODE TESTS RESULT OUT OF RANGE REFERENCE UNITS LAB L501.080 70-110 mg/dL Normal BEDSIDE GLU 95 Result Comment: MANAGEMENT OF PATIENT CARE PER NURSING PROTOCOL Performed By: #### L501.080 #### [facility] Point of Care [address] [facility]. [place], [place] [address] DISCHARGE SUMMARY Observed: 01/31/2018 Status: F Source: [place] 10:56 AM [facility] REPOSITORY [facility] Medical Records Department [address] [place] [id number] Discharge Summary 01/31/18 1050 MR#: [id number] Acct: [id number] Name: REGINA ROJAS Rep #: [id number] : 1935 82 From: Josette Galeas DO PCP: Josette Melendez MD Status: ADM IN Y Location: LA3 [id number] Discharge Date and Diagnosis - Problem List Patient Problems: Active and Suspected Problems Cellulitis of left lower extremity (Acute) Macrocytic anemia (Acute) Thrombocytopenia (Acute) 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 Wound culture eventually came back positive for Pseudomonas and patient was seen in consultation by infectious disease and has recommended 7 days of Levaquin and doxycycline upon discharge. In the hospital, patient was on vancomycin and Levaquin. Patient also does have a history of chronic nocardia to which he was seeing infectious disease DrMargarita but has not seen one in over a year. Patient will follow up with Dr. Robert for further management of his chronic nocardia. Patient will continue with the Bactrim that he has been taking for the nocardia as he previously has been. 1. Left lower extremity cellulitis * Patient noting that it is improved from yesterday and that he is overall feeling better. 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 History of syrinx * Patient said that it is very confluent from C5 down to his thoracic vertebrae. Has been told that he will eventually to further paralysis and may be cessation of breathing. * Patient is on hydrocortisone to help with edema associated with this. Patient states that this is been initiated through his primary care provider and patient states that he has no illusions that this is going to fix his syrinx. 4. Enterococcus in the urine * Low colony counts, and a normal urinalysis to exclude this is being an actual urinary tract infection. Therefore no treatment necessary.[] Discharge Diet: No Restrictions Discharge Activity: Return to Normal Activity Call your doctor if your incision/area has: Increased Pain/ Swelling, Increased Redness Call your doctor if you observe: Fever of 101 or Higher Home Medications: Medications to take at Discharge Gabapentin [Neurontin] 600 mg PO TID@0800,1700,220 #90 capsule 09/18/14 Multivitamins,Ther W-Minerals [Multivitamin With Minerals] 1 tablet PO DAILY@170 #30 tablet 09/18/14 Pyridoxine HCl [Vitamin B-6] 100 mg PO DAILY@1700 #30 tablet 09/18/14 Isosorbide Dinitrate [Isordil] 5 mg PO DAILY@219901/12/16 Losartan Potassium [Cozaar] 12.5 mg PO DAILY@219901/12/16 Senna/Docusate Sodium [Senokot-S] 1 tablet PO BID@0800,219901/12/16 Carvedilol [Coreg] 3.125 mg PO DAILY@169911/10/16 Duloxetine Hcl [Cymbalta] 60 mg PO DAILY@169911/10/16 Furosemide [Lasix] 40 mg PO DAILY@219911/10/16 Magnesium Oxide [Magnesium] 500 mg PO BID@0800,219911/10/16 Riboflavin [Vitamin B2] 200 mg PO DAILY@169911/10/16 Smz/Tmp Ds [Bactrim Ds] 1 tablet PO DAILY@0800 11/10/16 Acetaminophen [Tylenol Tablet] 650 mg PO Q6H PRN PRN #0 tablet 11/14/16 Hydrocodone/Acetaminophen [Hydrocodon-Acetaminophn 10-325] 1 each PO BID@1700,220 #60 tablet 11/14/16 Ibuprofen [Motrin] 200 mg PO Q6H PRN #0 tablet 11/14/16 MorphINE [Ms Contin] 30 mg PO TID@0800,1600,2200 #60 tablet 11/14/16 Oxymetazoline 0.05% [Afrin (BKC)] 2 spray NASAL Q12H PRN PRN #1 spray.btl 11/14/16 Hydrocortisone 20 mg PO TID 01/28/18 Metformin HCl [Glucophage] 500 mg PO BIDCM 01/28/18 Clotrimazole [Lotrimin] 1 applicatio TOPICAL BID@0800,1800 #1 tube 01/31/18 Doxycycline 100 mg PO BID #14 cap 01/31/18 Levofloxacin [Levaquin] 500 mg PO DAILY@1800 #7 tab 01/31/18 Following Prescrptions Were Given to Patient: Clotrimazole [Lotrimin] 1 applicatio TOPICAL BID@0800,1800 #1 tube Levofloxacin [Levaquin] 500 mg PO DAILY@1800 #7 tab Doxycycline 100 mg PO BID #14 cap Primary Care Physician: Josette Melendez MD [Primary Care Provider] - Within 2 Weeks Please Follow Up With: Jose Robert MD - Infectious Disease follow up. When: 1-2 months Disposition: Home with Home Health Minutes spent on discharge:: 35 Patient Condition:: Good Meaningful Use Info Meaningful Use Diagnoses (Choose all that apply): None applicable Code Visit Inpatient E AND M: 81974 Disch Hosp 01/31/18 1056 <Electronically signed by Josette Galeas DO> Date Josette Galeas DO Cosigner Signature (if applicable): Date CC: Josette Galeas DO; Josette Melendez MD Signed DISCHARGE INSTRUCTION Observed: 01/31/2018 Status: F Source: [place] 10:50 AM [facility] REPOSITORY [facility] Medical Records Department [address] [place] [address] Instructions for Home/Discharge Instructions 01/31/18 1049 MR#: [id number] Acct: [id number] Name: REGINA ROJAS Rep #: [id number] : 1935 82 From: Josette Galeas DO PCP: Josette Melendez MD Status: ADM IN 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) Tinea pedis (Acute) You will use the following diet at home:: No restrictions Discharge Activity: Return to Normal Activity Call your doctor if your incision/area has: Increased Pain/ Swelling, Increased Redness Call your doctor if you observe: Fever of 101 or Higher Allergies/Adverse Reactions: Allergies Cephalosporins Allergy (Intermediate, Verified 11/10/16 18:54) Laryngospasms Penicillins Allergy (Intermediate, Verified 01/08/14 13:27) Rash IVP DYE Allergy (Uncoded 09/01/14 09:52) Rash Medications to take at Discharge Gabapentin [Neurontin] 600 mg PO TID@0800,1700,2200 #90 capsule 09/18/14 Multivitamins,Ther W-Minerals [Multivitamin With Minerals] 1 tablet PO DAILY@170 #30 tablet 09/18/14 Pyridoxine HCl [Vitamin B-6] 100 mg PO DAILY@1700 #30 tablet 09/18/14 Isosorbide Dinitrate [Isordil] 5 mg PO DAILY@219901/12/16 Losartan Potassium [Cozaar] 12.5 mg PO DAILY@219901/12/16 Senna/Docusate Sodium [Senokot-S] 1 tablet PO BID@0800,219901/12/16 Carvedilol [Coreg] 3.125 mg PO DAILY@169911/10/16 Duloxetine Hcl [Cymbalta] 60 mg PO DAILY@169911/10/16 Furosemide [Lasix] 40 mg PO DAILY@219911/10/16 Magnesium Oxide [Magnesium] 500 mg PO BID@0800,219911/10/16 Riboflavin [Vitamin B2] 200 mg PO DAILY@169911/10/16 Smz/Tmp Ds [Bactrim Ds] 1 tablet PO DAILY@0800 11/10/16 Acetaminophen [Tylenol Tablet] 650 mg PO Q6H PRN PRN #0 tablet 11/14/16 Hydrocodone/Acetaminophen [Hydrocodon-Acetaminophn 10-325] 1 each PO BID@1700,2200 #60 tablet 11/14/16 Ibuprofen [Motrin] 200 mg PO Q6H PRN #0 tablet 11/14/16 MorphINE [Ms Contin] 30 mg PO TID@0800,1600,2200 #60 tablet 11/14/16 Oxymetazoline 0.05% [Afrin (BKC)] 2 spray NASAL Q12H PRN PRN #1 spray.btl 11/14/16 Hydrocortisone 20 mg PO TID 01/28/18 Metformin HCl [Glucophage] 500 mg PO BIDCM 01/28/18 Clotrimazole [Lotrimin] 1 applicatio TOPICAL BID@0800,1800 #1 tube 01/31/18 Doxycycline 100 mg PO BID #14 cap 01/31/18 Levofloxacin [Levaquin] 500 mg PO DAILY@1800 #7 tab 01/31/18 The following prescriptions were given: Clotrimazole [Lotrimin] 1 applicatio TOPICAL BID@0800,1800 #1 tube Levofloxacin [Levaquin] 500 mg PO DAILY@1800 #7 tab Doxycycline 100 mg PO BID #14 cap Primary Care Physician: Josette Melendez MD [Primary Care Provider] - Within 2 Weeks Please Follow Up With: Jose Robert MD - Infectious Disease follow up. When: 1-2 months Proposed Discharge Date: 01/31/18 01/31/18 1050 <Electronically signed by Josette Galeas DO> Date Josette Galeas DO CC: Josette Melendez MD; Jose Robert MD CBC W/DIFF, AUTOMATED Collected: 01/31/2018 Status: F Source: [place] 8:18 AM [facility] REPOSITORY TYPE CODE TESTS RESULT OUT OF RANGE REFERENCE UNITS LAB L100.1000 4.4-11.0 K/mm3 Normal WBC 6.6 LAB L100.1200 4.6-6.2 M/mm3 Low RBC 3.65 LAB L100.1300 13.0-16.5 g/dl Low HGB 11.8 LAB L100.1400 40-54 % Low HCT 36.5 LAB L100.1500 80-94 fL High MCV 100.0 LAB L100.1600 27.0-32.0 pg High MCH 32.3 LAB L100.1700 32-36 g/gl Normal MCHC 32.3 LAB L100.1810 11.6-14.6 % Normal RDW CV 13.1 LAB L100.1820 35.1-43.9 fl High RDW SD 48.2 LAB L100.1900 150-450 K/mm3 Normal PLT 152 LAB L100.2000 6.2-12.0 fl Normal MPV 9.5 LAB L100.2100 47-70 % High NEUT% 70.9 LAB L100.2200 19-41 % Normal LY% 19.3 LAB L100.2300 0-10 % Normal MONO% 8.4 LAB L100.2400 0-5 % Normal EO% 0.9 LAB L100.2500 0-1 % Normal BASO% 0.2 LAB L100.2550 0.0-0.9 % Normal IM GRAN % 0.300 Result Comment: IG% - Immature Granulocytes (promyelocytes, myelocytes and metamyelocytes) > 1% indicates that a LEFT SHIFT is Present. LAB L100.2620 2.0-7.7 X10 3/uL Normal Absolute Neut 4.7 LAB L100.2720 0.83-4.51 X10 3/ul Normal Absolute Lymph 1.27 Performed By: #### L100.0100 #### [facility] [address] [place], [place], [address] BASIC METABOLIC Collected: 01/31/2018 Status: F Source: [place] PROFILE ([facility]) 8:18 AM [facility] REPOSITORY TYPE CODE TESTS RESULT OUT OF RANGE REFERENCE UNITS LAB L501.0100 74-106 mg/dL Normal GLU 89 Result Comment: Please note revised GLUCOSE reference range effective 2017. LAB L501.1000 7-18 mg/dL Normal BUN 14 LAB L501.1100 0.70-1.30 mg/dL Low CREAT,SERUM 0.66 Result Comment: The validity of the calculated GFR AND GFRAA in patients over 70 years has not been determined. Clinical correlation is essential. LAB L501.1110 >60 mL/min Normal EST GFR 124 Result Comment: Non- GFR Calc LAB L501.1115 >60 mL/min Normal EST GFR - AA 150 Result Comment: GFR Calc LAB L501.1255 ml/min Normal Estimated CRCL 60.83 LAB L501.1300 10-20 RATIO High BUN/CRE 21.3 LAB L501.2200 8.5-10 mg/dL Normal .1 CA 8.5 LAB L501.5300 136-14 mmol/L Normal 5 NA 141 LAB L501.5600 3.5-5. mmol/L Low 1 K 3.4 LAB L501.5900 98-107 mmol/L Normal CL 105 LAB L501.6100 21.0-3 mmol/L Normal 2.0 CO2 32.0 LAB L501.6200 5-15 Low GAP 4 Performed By: #### L500.2500 #### [facility] [address] [place], [address] BEDSIDE GLUCOSE Collected: 01/31/2018 Status: F Source: [place] 6:58 AM [facility] REPOSITORY TYPE CODE TESTS RESULT OUT OF RANGE REFERENCE UNITS LAB L501.080 70-110 mg/dL Normal BEDSIDE GLU 83 Result Comment: MANAGEMENT OF PATIENT CARE PER NURSING PROTOCOL Performed By: #### L501.080 #### [facility] Point of Care [address] [place] [address] BEDSIDE GLUCOSE Collected: 01/30/2018 Status: F Source: [place] 10:20 PM [facility] REPOSITORY TYPE CODE TESTS RESULT OUT OF REFERENCE UNITS RANGE LAB L501.080 70-110 mg/dL High BEDSIDE GLU 168 Result Comment: MANAGEMENT OF PATIENT CARE PER NURSING PROTOCOL Performed By: #### L501.080 #### [facility] Point of Care [address] [place] [address] VANCOMYCIN, TROUGH Collected: 01/30/2018 Status: F Source: [place] LEVEL 10:00 PM [facility] REPOSITORY Order Comment: Time Medication is to be Given? 2200 TYPE CODE TESTS RESULT OUT OF RANGE REFERENCE UNITS LAB L501.8820 5.0-15.0 ug/mL Normal VANCO, TROUGH 8.8 Result Comment: VANCOMYCIN STANDARED DRUG THERAPY TROUGH LEVEL: 5.0 - 15.0 mg/L VANCOMYCIN HIGH INTENSITY THERAPY TROUGH LEVEL: 15.0 - 20.0 mg/L High Intensity therapy recommended for serious life threatening infections include: - Meningitis -Endocarditis -Pneumonia (Ventilator/Healtcare Associated) -Sepsis PLEASE CONTACT PHARMACY SERVICES (#[id number]) FOR INTERPRETATION OF RESULTS. Performed By: #### L501.8820 #### [facility] [address] [place], [address] BEDSIDE GLUCOSE Collected: 01/30/2018 Status: F Source: [place] 4:18 PM [facility] REPOSITORY TYPE CODE TESTS RESULT OUT OF REFERENCE UNITS RANGE LAB L501.080 70-110 mg/dL High BEDSIDE GLU 140 Result Comment: MANAGEMENT OF PATIENT CARE PER NURSING PROTOCOL Performed By: #### L501.080 #### [facility] Point of Care [address] [facility] [place] [address] ECHO, COMPLETE W/ Observed: 01/30/2018 Status: F Source: [place] CONTRAST 12:23 PM [facility] REPOSITORY [facility] Cardiovascular Services [address] [place] [address] Echo Complete W/ Contrast 01/30/18 0814 MR#: [id number] Acct: [id number] Name: REGINA ROJAS Rep #: [id number] : 1935 82 From: Haider Gomez MD Attending Dr: Josette Galeas DO Status: ADM IN Ordering Dr: Magy Quinn DO Date: 01/29/18 Location: LA3 Sex: M C Admitted: 01/28/18 Reason For Study: murmur Procedure This was a 2D Doppler, Color Flow transthoracic echocardiogram. The study was technically limited. The study was technically difficult. Contrast injection was performed. Exam performed portable in patient room. Left Ventricle Normal LV size. Left ventricular systolic function is normal. The estimated ejection fraction is 60 %. No evidence for diastolic dysfunction. No regional wall motion abnormalities noted. Right Ventricle Normal RV size. Normal systolic function. Atria Normal left atrium. Normal right atrium. Mitral Valve There is mild to moderate mitral annular calcification. Tricuspid Valve Normal tricuspid valve. Aortic Valve The aortic valve is not well visualized. Mild focal aortic valve calcification. Pulmonic Valve The pulmonic valve is not well visualized. Great Vessels Normal aortic root. Pericardium/Pleural No pericardial effusion. Medication Diluted definity 4.0ml given slow IV push to enhance endocardial definition. MMode/2D Measurements AND Calculations LVIDd: 3.7 cm IVSd: 1.1 cm LVOT diam: 2.0 cm LVIDs: 2.6 cm LVPWd: 1.1 cm LVOT area: 3.1 cm2 FS: 30.4 % LA dimension: 3.6 cm LAV(MOD-bp): 47.5 ml LAV(MOD-bp) Indexed: 24.6 ml/m2 LA A4 area: 16.2 cm2 LAV(MOD-sp2): 38.3 ml LAV(MOD-sp4): 49.6 ml RA A4 area: 14.8 cm2 Doppler Measurements AND Calculations MV E max ifrah: 110.1 cm/sec Lat Peak E' Ifrah: 8.0 cm/sec Med Peak E' Ifrah: 6.4 cm/sec MV A max ifrah: 77.4 cm/sec E/E' lat: 13.8 E/E' med: 17.3 MV E/A: 1.4 Ao V2 max: 160.6 cm/sec LV V1 max: 137.1 cm/sec SV(LVOT): 76.7 ml Ao max P.4 mmHg LV V1 max P.5 mmHg Ao V2 mean: 105.1 cm/sec LV V1 mean P.9 mmHg Ao mean P.0 mmHg LV V1 mean: 92.6 cm/sec Ao V2 VTI: 29.4 cm LV V1 VTI: 24.5 cm JUAN(I,D): 2.6 cm2 JUAN(V,D): 2.7 cm2 Interpretation Summary Normal LV size. Left ventricular systolic function is normal. The estimated ejection fraction is 60 %. No evidence for diastolic dysfunction. Contrast injection was performed. Ordering Physician: Ana Quinn Referring Physician: Josette Melendez Performed By: Raysa Alexander, ZAKIA, RVT 01/30/181222 Date Haider Gomez MD CC: Ana Quinn; Josette Melendez MD Date Dictated: 01/30/18 0814 Date Transcribed: 01/30/181222 Cotton Seed Culler: Signed BEDSIDE GLUCOSE Collected: 01/30/2018 Status: F Source: [place] 11:44 AM [facility] REPOSITORY TYPE CODE TESTS RESULT OUT OF REFERENCE UNITS RANGE LAB L501.080 70-110 mg/dL High BEDSIDE GLU 133 Result Comment: MANAGEMENT OF PATIENT CARE PER NURSING PROTOCOL Performed By: #### L501.080 #### [facility] Point of Care [address] [place] [address] BEDSIDE GLUCOSE Collected: 01/30/2018 Status: F Source: [place] 8:32 AM [facility] REPOSITORY TYPE CODE TESTS RESULT OUT OF RANGE REFERENCE UNITS LAB L501.080 70-110 mg/dL Normal BEDSIDE GLU 94 Result Comment: MANAGEMENT OF PATIENT CARE PER NURSING PROTOCOL Performed By: #### L501.080 #### [facility] Point of Care [address] [place] [address] BEDSIDE GLUCOSE Collected: 01/29/2018 Status: F Source: [place] 9:55 PM [facility] REPOSITORY TYPE CODE TESTS RESULT OUT OF REFERENCE UNITS RANGE LAB L501.080 70-110 mg/dL High BEDSIDE GLU 136 Result Comment: MANAGEMENT OF PATIENT CARE PER NURSING PROTOCOL Performed By: #### L501.080 #### [facility] Point of Care [address] [place] [address] BEDSIDE GLUCOSE Collected: 01/29/2018 Status: F Source: [place] 4:03 PM [facility] REPOSITORY TYPE CODE TESTS RESULT OUT OF REFERENCE UNITS RANGE LAB L501.080 70-110 mg/dL High BEDSIDE GLU 143 Result Comment: MANAGEMENT OF PATIENT CARE PER NURSING PROTOCOL Performed By: #### L501.080 #### [facility] Point of Care [address] [place] [address] CONSULTATION Observed: 01/29/2018 Status: F Source: [place] 11:47 AM [facility] REPOSITORY [facility] Medical Records Department [address] [place] [address] Consultation 01/29/18 1139 MR#: [id number] Acct: [id number] Name: REGINA ROJAS Rep #: [id number] : 1935 82 From: Jose Robert MD PCP: Josette Melendez MD Status: ADM IN Y Location: MS3 [id number] Problem List (1) Cellulitis of left lower extremity Status: Acute Reason for Consult: cellulitis Consulted by: Dr. 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 No recent trauma to foot. Leg does have decreased sensation. No drainage. Has been compliant with bactrim. Came to [facility], started on vanc/levaquin, and bactrim was continued. Pain much improved, redness slightly better. Prior infectious disease provider was Dr. Rosas in [place]. Full ROS Performed and neg except as noted above. 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 Allergies/Adverse Reactions: Allergies Cephalosporins Allergy (Intermediate, Verified 11/10/16 18:54) Laryngospasms Penicillins Allergy (Intermediate, Verified 01/08/14 13:27) Rash IVP DYE Allergy (Uncoded 09/01/14 09:52) Rash Home Medications: Ambulatory Orders Medication Instructions Recorded Gabapentin [Neurontin] 600 mg PO TID@0800,1700,2200 #90 09/18/14 Ketoconazole [Nizoral Cream] 1 applic TOPICAL PRN PRN #14 09/18/14 Multivitamins,Ther W-Minerals 1 tablet PO DAILY@1700 #30 tablet 09/18/14 - Social History SMOKING STATUS:: Never smoker Vital Signs Temp Pulse Resp BP Pulse Ox 98.6 F 70 16 146/81 H 96 01/29/18 07:54 01/29/18 07:54 01/29/18 07:54 01/29/18 07:54 01/29/18 07:54 Oxygen Delivery Method Room Air Weight: 76.912 kg Body Mass Index (BMI) 24.3 Laboratory Tests Past 24 Hrs Urine Color Yellow Urine Clarity Clear Urine pH 7.0 Ur Specific [place] 1.010 Urine Protein 15 H - Other Studies Radiology: [] reviewed Other Studies: [] Route of nutrition/ use of supplements: [] Nutritional Intake: [] IV Site: [] Wheeler Catheter: [] - Physical Exam General: Alert, Oriented x3, Cooperative, No apparent distress HEENT: Atraumatic, PERRLA, EOMI Neck: Supple, No Nodes Lungs: Clear to auscultation, Normal air movement Cardiovascular: Regular rate, Regular Rhythm, No murmurs Abdomen: Bowel Sounds Present, Soft, Non Tender, Non-Distended Extremities: Edema - mild LLE Skin: Rash Present - diffuse lower LLE redness, mild warmth/pain. Small area of cracking between toes 1-2. 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 Possible source is tinea pedis, on clotrimazole topical now. Much better on vanc/levaquin. Should be able to go home in next few days on po abx. Staph aureus pcr neg, other cxs are pending. h/o nocardia - continue suppressive bactim indefinitely Thank you, will follow, d/w Dr. Galeas. I gave the pt my card. 01/29/18 1147 <Electronically signed by Jose Robert MD> Date Jose Robert MD Cosigner Signature (if applicable): Date CC: Josette Melendez MD; Jose Robert MD Signed BEDSIDE GLUCOSE Collected: 01/29/2018 Status: F Source: [place] 11:09 AM [facility] REPOSITORY TYPE CODE TESTS RESULT OUT OF REFERENCE UNITS RANGE LAB L501.080 70-110 mg/dL High BEDSIDE GLU 172 Result Comment: MANAGEMENT OF PATIENT CARE PER NURSING PROTOCOL Performed By: #### L501.080 #### [facility] Point of Care [address] [place] [address] BEDSIDE GLUCOSE Collected: 01/29/2018 Status: F Source: [place] 7:05 AM [facility] REPOSITORY TYPE CODE TESTS RESULT OUT OF REFERENCE UNITS RANGE LAB L501.080 70-110 mg/dL High BEDSIDE GLU 118 Result Comment: MANAGEMENT OF PATIENT CARE PER NURSING PROTOCOL Performed By: #### L501.080 #### [facility] Point of Care [address] [place] [address] VENOUS DUPLEX LOWER Observed: 01/29/2018 Status: F Source: [place] EXTREMITY 6:00 AM [facility] REPOSITORY [facility] Cardiovascular Services [address] [place] [address] Venous Duplex US, Unilateral 01/28/18 1303 MR#: [id number] Acct: [id number] Name: REGINA ROJAS Rep #: [id number] : 1935 82 From: Jose Lagos MD Attending Dr: Ana Quinn Status: ADM IN Ordering Dr: Shruthi Miles DO Date: 01/28/18 Location: MS3 Sex: M C Admitted: 01/28/18 Reason For Study: swelling Procedure LEFT Exam performed portable in ED. GSV is normal. The exam was diagnostic. POP V is compressible, spontaneous, phasic, Difficult study. Pt in chair and unable to competent and demonstrates normal transfer. augmentation. A preliminary report was called and/or faxed T/P Trunk is compressible. to ED RN. PTV is compressible. LT PerV is compressible. Chronic vein wall thickening noted in the CFV and FV with normal venous flow patterns. Interpretation Summary Patient examined while sitting in a chair No evidence for acute deep venous thrombosis Vein wll thickening noted in the left common femoral and femoral veins consistent with patient's history of chronic deep venous thrombosis--compare to 11/11/16. Ordering Physician: Shruthi Miles Performed By: Kasi Barragan RVT 01/29/18 0559 Date Jose Lagos MD CC: Josette Melendez MD; Shruthi Miles DO Date Dictated: 01/28/18 1303 Date Transcribed: 01/29/1859 Cotton Seed Culler: Signed BEDSIDE GLUCOSE Collected: 01/28/2018 Status: F Source: [place] 10:03 PM [facility] REPOSITORY TYPE CODE TESTS RESULT OUT OF REFERENCE UNITS RANGE LAB L501.080 70-110 mg/dL High BEDSIDE GLU 153 Result Comment: MANAGEMENT OF PATIENT CARE PER NURSING PROTOCOL Performed By: #### L501.080 #### [facility] Point of Care [address] [place] [address] BEDSIDE GLUCOSE Collected: 01/28/2018 Status: F Source: [place] 5:31 PM [facility] REPOSITORY TYPE CODE TESTS RESULT OUT OF REFERENCE UNITS RANGE LAB L501.080 70-110 mg/dL High BEDSIDE GLU 163 Result Comment: MANAGEMENT OF PATIENT CARE PER NURSING PROTOCOL Performed By: #### L501.080 #### [facility] Point of Care [address] [place] [address] URINALYSIS, COMPLETE Collected: 01/28/2018 Status: F Source: [place] 5:15 PM [facility] REPOSITORY Order Comment: Order Date: 01/28/18 Has pt arrived? Y How was Urine Obtained? MANAGER IMPLEMENTATION TO SPECIFY TYPE CODE TESTS RESULT OUT OF RANGE REFERENCE UNITS LAB L400.3000 Yellow COLOR Normal Yellow LAB L400.3050 Clear Normal CLARITY Clear LAB L400.3200 Normal mg/dl Normal GLUCOSE, UR Normal LAB L400.3300 Negative mg/dL Normal BILIRUBIN URINE Negative LAB L400.3400 Negative mg/dl Normal KETONE UR Negative LAB L400.3465 1.002-1.030 Normal SP.GR. DIPSTX 1.010 LAB L400.3550 5.0 - 8.0 pH UR Normal 7.0 LAB L400.3600 Negative mg/dl High PROT 15 DIPSTX LAB L400.3700 Normal mg/dl Normal UROBILI Normal LAB L400.3750 Negative Normal NITRITE UR Negative LAB L400.3780 Negative /ul Normal OCCULT BLOOD-UR Negative LAB L400.3800 Negative /ul High LEUK ESTERASE 100 LAB L400.4050 0-5 /hpf WBC Normal 0-5 SEEN LAB L400.4100 0-5 /hpf 0 Normal RBC-UA SEEN LAB L400.4150 0-5 /hpf SQUAM 0 Normal EPI SEEN LAB L400.4300 None Seen /hpf 0 Normal BACTERIA SEEN LAB L400.4350 <or=2+ /hpf 0 Normal MUCUS, URINE SEEN Performed By: #### L400.0001 #### [facility] [address] [place], [place], [address] Observed: 01/28/2018 Status: F Source: [place] CULTURE, URINE 5:15 PM [facility] REPOSITORY Order Date: 01/28/18 Comments: [facility] Has pt arrived? Y Urine Culture ORGANISM 1: Enterococcus faecalis [place] Count 1000-10,000 Enterococcus faecalis: REACTION Ampicillin $ <=2 S Benzylpenicillin NF 4 S Ciprofloxacin $ >=8 R Gentamicin SYN-R R Levofloxacin $ >=8 R Linezolid $$$$ 2 S Nitrofurantoin $ <=16 S Streptomycin $ SYN-S S Tetracycline NF <=1 S Vancomycin $ 1 S (NF) indicates non-formulary drug at [facility]. Approval by Infectious Disease Specialist required before non-formulary drugs may be ordered and/or dispensed. * CLSI guidelines does not recommend testing of cephalosporins. This interpretation is deduced from Beta-lactam/penicillin results. Performed By: #### M100.0650 #### [facility] [address] [place], [address] EMERGENCY DEPARTMENT Observed: 01/28/2018 Status: F Source: [place] SUMMARY 5:04 PM [facility] REPOSITORY [facility] Medical Records Department [address] [place] [address] Emergency Department Summary 01/28/18 1338 MR#: [id number] Acct: [id number] Name: REGINA ROJAS Rep #: [id number] : 1935 82 From: Shruthi Miles DO PCP: Al PIPER,Josette Status: ADM IN - ER Visit Summary Date of Service: 01/28/18 Chief Complaint: [Redness and swelling left leg] History of Present Illness: The patient is a 82 M [presents to the emergency department with chief complaint of redness and swelling to his left leg that started yesterday. Patient has a history of prior cellulitis. Patient denies any trauma to his leg. Patient denies any chest pain or shortness of breath. Patient does have a history of DVT and has a Aubrey filter in place. Patient currently not anticoagulated. Patient denies any fevers at home. Patient was seen at the urgent care today and sent to the emergency department for further evaluation.] Physical Examination: [HEENT-PERRLA, EOMI. Cranial nerves II through XII grossly intact. TMs clear. Mucous membranes moist. No adenopathy. Cardiovascular-regular rate and rhythm without murmur or ectopy Lungs-clear to auscultation, chest wall stable without crepitus or subcu emphysema Abdomen-normoactive bowel sounds, soft, nontender, no rebound or rigidity, no peritoneal signs. Extremities-intact 4, normal range of motion, normal pulses. Left leg-there is diffuse erythema from below the knee to the foot as well as soft tissue swelling and edema. Patient has normal dorsal pedal posterior tibial pulses. The leg is warm to the touch. Test Results: [CBC with differential showed a white blood cell count of 11.5, hemoglobin 12.6, hematocrit 39, platelets 116. Chemistries unremarkable. Venous duplex of the left lower extremity showed chronic thickening of the veins however no acute DVT noted.] Emergency Department Course and Treatment: [Patient had blood cultures ordered and was started on Levaquin IV as he states that last time he had severe cellulitis it seems that the Levaquin was able to take care of it. Treatment Plan: [Patient wanted to speak with the hospitalist prior to deciding on admission. After discussing case with hospitalist he agreed to be admitted for IV antibiotics and further management of his cellulitis.] Disposition: [Admit] Impression: [Cellulitis left leg] This note was generated with Mobile Bridge dictation software. It may contain incorrect words, spelling, and punctuation that were not noted in review of the chart prior to signing ED Disposition - Plan for ED Patient: Chief Complaint: Cellulitis Referrals: Josette Melendez MD [Primary Care Provider] - What to do if you have Problems For any increased pain, shortness of breath, bleeding, nausea or vomiting, chest pain, or any unexpected problems, contact your Primary Care Provider. Call [facility] ([phone]) or report to the closest Emergency Room. Call 911 if necessary. 01/28/18 1704 <Electronically signed by Shruthi Miles DO> Date Shruthi Miles DO Cosigner Signature (If Indicated): Date CC: Josette Melendez MD MRSA WOUND DNA BY Collected: 01/28/2018 Status: F Source: [place] PCR 5:00 PM [facility] REPOSITORY Order Comment: Interface Comments: to wound inbtwn Lt great toe and 2nd toe Order Date: 01/28/18 Has pt arrived? Y [facility] and [facility]nd toes Specimen Source? wound TYPE CODE TESTS RESULT OUT OF RANGE REFERENCE UNITS LAB L8200.1100 Negative Normal MRSA Negative RESULT LAB L8200.1150 Negative Normal SA RESULT NEGATIVE Performed By: #### L8200.1075 #### [place] [facility] [address] [place], [address] Observed: 01/28/2018 Status: F Source: [place] CULTURE, DEEP WOUND 5:00 PM [facility] REPOSITORY Interface Comments: Wound is inbetween LT great toe and 2nd toe Order Date: 01/28/18 Has pt arrived? Y Comments: between L big and 2nd toes Gram Stain Gram Stain 1+ Gram positive cocci 1+ Gram negative rods Rare Epithelial cells Wound Culture ORGANISM 1: Pseudomonas aeroginosa Amount Growth 3+ Pseudomonas aeroginosa: REACTION Aztreonam $$$ 18 I Pseudomonas aeroginosa: REACTION Amikacin $ 4 S Cefepime $ 4 S Ceftazidime *NF 4 S Ciprofloxacin $ 0.5 S Gentamicin $ <=1 S Imipenem *NF 1 S Levofloxacin $ 2 S Meropenem $ 1 S Piperacillin/Tazobactam $$ 8 S Tobramycin $ <=1 S (NF) indicates non-formulary drug at [facility]. Approval by Infectious Disease Specialist required before non-formulary drugs may be ordered and/or dispensed. Cult, Anaerobic Studies have confirmed that Anaerobic Gram Positive Cocci are routinely susceptible to: Penicillin/Ampicillin, Ampicillin/Sulbactam, Piperacillin/Tazobactam, Cefoxatin, Ertapenem, Imipenem, Meropenem and Metronidazole and vary in resistance to: Clindamycin and Moxifloxacin. ORGANISM 1: Anaerobic cocci Performed By: #### M100.1500 #### [facility] [address] [facility] [place], [address] HISTORY AND PHYSICAL Observed: 01/28/2018 Status: F Source: [place] EXAM 4:07 PM [facility] REPOSITORY [facility] Medical Records Department [address] [place] [address] History and Physical 01/28/18 1526 MR#: [id number] Acct: [id number] Name: REGINA ROJAS Rep #: [id number] : 1935 82 From: Magy Quinn DO PCP: Josette Melendez MD Status: ADM IN Y [place] [facility] [place]-0 Problem List (1) Chronic pain Status: Chronic Qualifiers: Chronic pain type: chronic pain syndrome Qualified Code(s): G89.4 - Chronic pain syndrome (2) Macrocytic anemia Status: Acute (3) Thrombocytopenia Status: Acute (4) Contusion of toe Status: Resolved (5) Left leg cellulitis Status: Acute Comment: unknown etiology (6) Left leg weakness Status: Chronic (7) Seizure Status: Ruled-out (8) Carpal tunnel syndrome on both sides Status: Chronic (9) Constipation Status: Chronic (10) DVT (deep venous thrombosis) Status: Resolved Comment: with interior and anterior filters in place bilateral (11) HTN (hypertension) Status: Chronic Qualifiers: (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 (17) Immunocompromised due to corticosteroids Status: Acute (18) Tinea pedis Status: Acute Qualifiers: Laterality: left Qualified Code(s): B35.3 - Tinea pedis History of Present Illness Date of Admission: 01/28/18 Chief Complaint: increased redness, swelling and pain LLE The patient is a 82 year old M with a PMH of transverse myelitis/paraplegia, THREAT ANALYST shunt(after a SAH), syringomyelia(due to bacterial meningitis), DVT (filter present), chronic pain S. nocardia involving the RUE and LLE in the past(on suppressive Bactrim), steroid induced DM, chronic steroid use, HTN, PVD, SAH and BL CTS who presented to the Ed at [facility] on 01/28/18 c/o increased swelling, redness and pain of the LLE. He denied fever, chills, sweats. He denied any falls or injuries to the Legs recently. He moisturizes the Leg with Duoderm daily. Vital signs at presentation to the emergency room are temperature 99.3, pulse rate 81, blood pressure 127/73, respiratory rate 18 and he was 98% saturated on room air. CBC shows an elevated white blood cell count at 11.5 with 86% neutrophils and 0.2% immature granulocytes. The hemoglobin is low at 12.6 with an MCV of 101. Platelets are low at 116,000. Sodium is low at 135 and the carbon dioxide is increased at 34. On PE the left leg from tibial plateau distally is red/purple, swollen and has increased warmth to touch. No openings in the skin. there is Maceration between the left big toe and the second toe with a opening in the skin. It is painful to touch. He tells me that he has had MRSA in the past and has been treated with VAncomycin on many occasions. He is being admitted to the hospital with a dx of cellultis and tinea pedis. 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 Psychiatric History: No pertinent psych hx, - - he is very angry now and his attributes this to the steroids....she states it makes him mean. 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 Smoking Status: Never smoker - *Family History Maternal History Items: - - , depression Paternal History Items: - - Offspring History Items: - - 2 children, 4 grand children, 1 great grandchild, all in good health Review of Systems Constitutional: Denies: Chills, Fever, Weight Change HEENT: Reports: Head Aches - tells me that he always gets a FOWLER when he has an infection......denies neck stiffness. Denies: Sinus Congestion, Sinus Drainage Cardiovascular: Denies: Chest Pain, Palpitations Respiratory: Denies: Cough, Shortness of breath at rest, Sputum production Gastrointestinal: Denies: Abdominal Pain, Nausea, Vomiting Genitourinary: Denies: Dysuria Musculoskeletal: Reports: Leg Pain - left leg Neurological: Reports: Focal weakness - he is paraplegic...he has some strength in the LLE. 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) Tinea pedis (Acute) - Physical Exam General: Alert, Oriented x3, Cooperative, No apparent distress - but very angry and c/o everything.....does not want to be in the hospital because he does not like being awakened multiple times at night and does not like to have lab work every day and does not like to be poked for IV's etc....., Well developed, Well nourished HEENT: Atraumatic, PERRLA, EOMI, Normocephalic, - - he has a scar on the scalp from previous surgery for a SAH and subsequent placement of a THREAT ANALYST shunt Oral: No Gingival or Mucosal Lesions/ Ulcerations, Dry Mucosa Neck: Supple, No Nodes, Trachea Midline Lungs: Clear to auscultation, Normal air movement, No rhonchi, No wheeze, No rales Cardiovascular: Regular rate, Regular Rhythm, Normal S1, Normal S2, Murmur - 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 with radiation to the LLSB and the apex, No rub noted, No Gallop Abdomen: Bowel Sounds Present, Soft, Non Tender, Non-Distended Extremities: No clubbing, No cyanosis, Edema - of the Left ankle and distal LLE Skin: No rashes, Incision - there is maceration and an opening in the skin between the left great toe and the second toe Musculoskeletal: Tenderness - of the LLE distal to the knee with palpation Neurological: Cranial nerves II-XII grossly intact Psych/Mental Status: Agitated Vital Signs Temp Pulse Resp BP Pulse Ox 99.3 F H 77 16 141/71 H 99 01/28/18 12:00 01/28/18 15:25 01/28/18 15:25 01/28/18 15:25 01/28/18 15:25 Oxygen Delivery Method Room Air Weight: 170 lb Body Mass Index (BMI) 24.3 Laboratory Tests Past 24 Hrs WBC 11.5 H RBC 3.86 L Hgb 12.6 L Hct 39.0 L MCV 101.0 H MCH 32.6 H MCHC 32.3 RDW 13.3 Assessment/Plan Active and Suspected Problems Macrocytic anemia (Acute) Thrombocytopenia (Acute) 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) Tinea pedis (Acute) Impressions 1. 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 Tinea pedis between the left great toe and the second toe 3. 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 THREAT ANALYST shunt 5. 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 On chronic suppression with Bactrim 7. PVD 8. Hypertension 9. Bilateral carpal tunnel syndrome 10. Chronic pain syndrome 11. Macrocytic anemia 12. chronic constipation 13. metabolic alkalosis/dehydration Admit to [facility] U[facility] Dowell and PO Levaquin culture the open area between the left big and second toes ECHO to evaluate the MM BC's draw in the ER Lotrimin between the toes and a small gauze to keep it dry His meds were ordered just like he takes them at home and will attempt not to awaken from 2300 to 0700 Hydrate with NS Recheck the lab in 48H Consult Dr. Robert PCR on the DC between the toes. Code Visit Inpatient EHSAN: [id number] Init Hosp L2 01/28/18 1607 <Electronically signed by Magy Quinn DO> Date M Ángel Quinn DO Mike Signature: Date (if applicable) CC: Ana Quinn; Josette [place] MD Signed PROGRESS Observed: 01/28/2018 Status: COMPLETED Source: [place] 12:50 PM [facility] REPOSITORY HNO ID: [id number] Author: Berna Mcclain Service: (none) Author Type: Nurse Practitioner Type: Progress Notes Filed: 01/28/2018 12:58 PM Note Text: Subjective HPI Pt presents with c/o decreased urine output x 2 days. When provider entered exam room, pt states he asked to remove his socks and noticed swelling and redness to LLE. States didn't think to look until they were waiting in exam room. +fever, +chills x 2 days. Hx LLE cellulitis that required hospital admission in 2016. States current sx of fever, chills, and decreased urine output are the same as when he was dx with cellulitis. Complex medical history. Managed at [facility]. Review of Systems Constitutional: Positive for chills and fever. Negative for diaphoresis. Genitourinary: Negative for dysuria, flank pain, frequency, hematuria and urgency. Skin: Positive for rash. Objective Physical Exam Constitutional: He is oriented to person, place, and time and well-developed, well-nourished, and in no distress. No distress. Neurological: He is alert and oriented to person, place, and time. Skin: Skin is warm. He is not diaphoretic. There is erythema. Erythema, heat and 3+pitting edema to LLE and Left foot. Pedal pulses palpable. Cap refill 3 sec. BP 116/69 Pulse 60 Temp 37.3 ?C (99.1 ?F) (Left Tympanic) Resp 12 .Patient presents with: Acute Visit: urine issues PAST MEDICAL HISTORY Diagnosis Date - Bacterial meningitis e-coli - Dyslipidemia - Hypertension - Myelopathy (HCC) - Nocardia infection chronic Bactrim therapy - Seizures (HCC) controlled on Neurontin - Sleep apnea - Subarachnoid hemorrhage (HCC) - Syringomyelia (HCC) cervical and thoracic PAST SURGICAL HISTORY Procedure Laterality Date - APPENDECTOMY HX 56 - HERNIA REPAIR HX 94 Rt inguinal - IANDD ABSC; COMPL OR MULTI 2006 lt leg - IANDD ABSC; SMPL OR SGL 2006 Rt forearm - KNEE ARTHROSCOP MENISCUS REPAIR MED/LAT 79, 80, 82, 84, 93 Rt knee - LAMINECT 1 SEGMT UNI/REAL EA ADD , 08 C7 T1 - PAST SURGICAL HISTORY OF drainage of SAH - PAST SURGICAL HISTORY OF THREAT ANALYST shunt placement - PAST SURGICAL HISTORY OF SVC and IVC filter - PAST SURGICAL HISTORY OF C7 synringo-subarachnoid shunt - PAST SURGICAL HISTORY OF T1 shunt placement - PAST SURGICAL HISTORY OF 06? bilateral cataract surgery - REVSC OPN/PRQ TIB/GARTH W/ANGIOPLASTY UNI 02-05-14 - ROTATOR CUFF REPAIR 97 Rt - SHOULDER ARTHROSCOPY/SURGERY 87,96 lt - TOTAL KNEE REPLACEMENT 00 Knee replacement, total Rt - TRANSURETHRAL ELEC-SURG PROSTATECTOM 96 ALLERGIES Cephlasporins [Cephalosporins]; Contrast Dye; Penicillins MEDICATIONS hydrocortisone (CORTEF) 20 mg tablet Take 20 mg by mouth once daily. metFORMIN (GLUCOPHAGE) 500 mg tablet Take 500 mg by mouth twice daily with meals. RANITIDINE HCL ORAL Take by mouth. losartan-hydrochlorothiazide 50-12.5 mg per tablet Take 1 tablet by mouth once daily. carvedilol (COREG) 3.125 mg tablet Take 3.125 mg by mouth once daily. HYDROcodone-Acetaminophen 10-325 mg per tablet Take 1 tablet by mouth twice daily. morphine SR (ORAMORPH SR) 15 mg 12 hr tablet Take 15 mg by mouth twice daily. pyridoxine (VITAMIN B-6) 100 mg tablet Take 100 mg by mouth once daily. MAGNESIUM OXIDE ORAL Take by mouth. gabapentin(NEURONTIN 300 MG CAP) take 600 mg in AM, 300 mg @ dinner time, and 600 mg at bedtime duloxetine hcl(CYMBALTA 30 MG CAP) Take one(1) capsule daily. FUROSEMIDE 40 MG TAB Take one(1) tablet daily. sulfamethoxazole/trimethoprim(BACTRIM DS 160 MG-800 MG TAB) Take one(1) tablet daily docusate sodium(STOOL SOFTENER 100 MG CAP) Take one(1) capsule twice daily. sennosides(VEGETABLE LAXATIVE 8.6 MG TAB) two tabs daily multivitamins(DAILY MULTIVITAMIN TAB) Take one(1) tablet daily. GARLIC 500 MG CAP one cap daily topiramate (TOPAMAX) 25 mg tablet Take 1 tab twice daily x2 weeks and then increase to 2 tabs twice daily and continue. zolpidem (AMBIEN) 5 mg tablet Take 5 mg by mouth at bedtime as needed. WARFARIN 6 MG TAB Take one tab daily FAMILY HISTORY Problem Relation Age of Onset - depression [Other] [OTHER] Sister - depression [Other] [OTHER] Mother - depression [Other] [OTHER] Brother - htn [Other] [OTHER] Father - alcoholism [Other] [OTHER] Father - Heart Father - Hypertension Father - Diabetes Father - Alcohol/Drug Father Social History Substance Use Topics - Smoking status: Former Smoker - Smokeless tobacco: Not on file Comment: quit smoking in the 1950s - Alcohol use Yes Comment: a glass of wine at bedtime, occasional bourbon or beer BP 116/69 Pulse 60 Temp 37.3 ?C (99.1 ?F) (Left Tympanic) Resp 12 .Patient presents with: Acute Visit: urine issues PAST MEDICAL HISTORY Diagnosis Date - Bacterial meningitis e-coli - Dyslipidemia - Hypertension - Myelopathy (HCC) - Nocardia infection chronic Bactrim therapy - Seizures (HCC) controlled on Neurontin - Sleep apnea - Subarachnoid hemorrhage (HCC) - Syringomyelia (HCC) cervical and thoracic PAST SURGICAL HISTORY Procedure Laterality Date - APPENDECTOMY HX 56 - HERNIA REPAIR HX 94 Rt inguinal - IANDD ABSC; COMPL OR MULTI 2006 lt leg - IANDD ABSC; SMPL OR SGL 2006 Rt forearm - KNEE ARTHROSCOP MENISCUS REPAIR MED/LAT 79, 80, 82, 84, 93 Rt knee - LAMINECT 1 SEGMT UNI/REAL EA ADD 07, 08 C7 T1 - PAST SURGICAL HISTORY OF drainage of SAH - PAST SURGICAL HISTORY OF THREAT ANALYST shunt placement - PAST SURGICAL HISTORY OF SVC and IVC filter - PAST SURGICAL HISTORY OF C7 synringo-subarachnoid shunt - PAST SURGICAL HISTORY OF T1 shunt placement - PAST SURGICAL HISTORY OF 06? bilateral cataract surgery - REVSC OPN/PRQ TIB/GARTH W/ANGIOPLASTY UNI 14 - ROTATOR CUFF REPAIR 97 Rt - SHOULDER ARTHROSCOPY/SURGERY 87,96 lt - TOTAL KNEE REPLACEMENT 00 Knee replacement, total Rt - TRANSURETHRAL ELEC-SURG PROSTATECTOM 96 ALLERGIES Cephlasporins [Cephalosporins]; Contrast Dye; Penicillins MEDICATIONS hydrocortisone (CORTEF) 20 mg tablet Take 20 mg by mouth once daily. metFORMIN (GLUCOPHAGE) 500 mg tablet Take 500 mg by mouth twice daily with meals. RANITIDINE HCL ORAL Take by mouth. losartan-hydrochlorothiazide 50-12.5 mg per tablet Take 1 tablet by mouth once daily. carvedilol (COREG) 3.125 mg tablet Take 3.125 mg by mouth once daily. HYDROcodone-Acetaminophen 10-325 mg per tablet Take 1 tablet by mouth twice daily. morphine SR (ORAMORPH SR) 15 mg 12 hr tablet Take 15 mg by mouth twice daily. pyridoxine (VITAMIN B-6) 100 mg tablet Take 100 mg by mouth once daily. MAGNESIUM OXIDE ORAL Take by mouth. gabapentin(NEURONTIN 300 MG CAP) take 600 mg in AM, 300 mg @ dinner time, and 600 mg at bedtime duloxetine hcl(CYMBALTA 30 MG CAP) Take one(1) capsule daily. FUROSEMIDE 40 MG TAB Take one(1) tablet daily. sulfamethoxazole/trimethoprim(BACTRIM DS 160 MG-800 MG TAB) Take one(1) tablet daily docusate sodium(STOOL SOFTENER 100 MG CAP) Take one(1) capsule twice daily. sennosides(VEGETABLE LAXATIVE 8.6 MG TAB) two tabs daily multivitamins(DAILY MULTIVITAMIN TAB) Take one(1) tablet daily. GARLIC 500 MG CAP one cap daily topiramate (TOPAMAX) 25 mg tablet Take 1 tab twice daily x2 weeks and then increase to 2 tabs twice daily and continue. zolpidem (AMBIEN) 5 mg tablet Take 5 mg by mouth at bedtime as needed. WARFARIN 6 MG TAB Take one tab daily FAMILY HISTORY Problem Relation Age of Onset - depression [Other] [OTHER] Sister - depression [Other] [OTHER] Mother - depression [Other] [OTHER] Brother - htn [Other] [OTHER] Father - alcoholism [Other] [OTHER] Father - Heart Father - Hypertension Father - Diabetes Father - Alcohol/Drug Father Social History Substance Use Topics - Smoking status: Former Smoker - Smokeless tobacco: Not on file Comment: quit smoking in the 1950s - Alcohol use Yes Comment: a glass of wine at bedtime, occasional bourbon or beer ASSESSMENT/PLAN: 1. Left leg cellulitis - ICD9: 682.6, ICD10: L03.116 (primary diagnosis) Pt referred to [facility] at this time for further evaluation and treatment of cellulitis d/t severity and complex medical hx. Pt and choose to be evaluated at [place] ED at this time. 2. Decreased urine output - ICD9: 788.5, ICD10: R34 - UA DIP B/O Berna Mcclain CNP Observed: 01/28/2018 Status: F Source: [place] CULTURE, BLOOD (WB) 12:45 PM [facility] REPOSITORY BC No growth in 5 days. Performed By: #### M200.1000 #### [facility] [address] [place], [place], [address] CBC W/DIFF, AUTOMATED Collected: 01/28/2018 Status: F Source: [place] 12:30 PM [facility] REPOSITORY TYPE CODE TESTS RESULT OUT OF RANGE REFERENCE UNITS LAB L100.1000 4.4-11.0 K/mm3 High WBC 11.5 LAB L100.1200 4.6-6.2 M/mm3 Low RBC 3.86 LAB L100.1300 13.0-16.5 g/dl Low HGB 12.6 LAB L100.1400 40-54 % Low HCT 39.0 LAB L100.1500 80-94 fL High MCV 101.0 LAB L100.1600 27.0-32.0 pg High MCH 32.6 LAB L100.1700 32-36 g/gl Normal MCHC 32.3 LAB L100.1810 11.6-14.6 % Normal RDW CV 13.3 LAB L100.1820 35.1-43.9 fl High RDW SD 49.6 LAB L100.1900 150-450 K/mm3 Low PLT 116 LAB L100.2000 6.2-12.0 fl Normal MPV 9.6 LAB L100.2100 47-70 % High NEUT% 85.6 LAB L100.2200 19-41 % Low LY% 7.7 LAB L100.2300 0-10 % Normal MONO% 6.3 LAB L100.2400 0-5 % Normal EO% 0.1 LAB L100.2500 0-1 % Normal BASO% 0.1 LAB L100.2550 0.0-0.9 % Normal IM GRAN % 0.200 Result Comment: IG% - Immature Granulocytes (promyelocytes, myelocytes and metamyelocytes) > 1% indicates that a LEFT SHIFT is Present. LAB L100.2620 2.0-7.7 X10 3/uL High Absolute Neut 9.8 LAB L100.2720 0.83-4.51 X10 3/ul Normal Absolute Lymph 0.89 Performed By: #### L100.0100 #### [facility] [address] [place], [place], [address] BASIC METABOLIC Collected: 01/28/2018 Status: F Source: [place] PROFILE (BMP) 12:30 PM [facility] REPOSITORY TYPE CODE TESTS RESULT OUT OF RANGE REFERENCE UNITS LAB L501.0100 74-106 mg/dL High GLU 110 Result Comment: Fasting Glucose result from 100 to 125 mg/dL suggests IMPAIRED HOMEOSTASIS per A.D.A. criteria. Please note revised GLUCOSE reference range effective 2017. LAB L501.1000 7-18 mg/dL High BUN 21 LAB L501.1100 0.70-1.30 mg/dL Normal CREAT,SERUM 0.89 Result Comment: The validity of the calculated GFR AND GFRAA in patients over 70 years has not been determined. Clinical correlation is essential. LAB L501.1110 >60 mL/min Normal EST GFR 88 Result Comment: Non- GFR Calc LAB L501.1115 >60 mL/min Normal EST GFR - AA 106 Result Comment: GFR Calc LAB L501.1255 ml/min Normal Estimated CRCL 68.35 LAB L501.1300 10-20 RATIO High BUN/CRE 23.7 LAB L501.2200 8.5-10 mg/dL Normal .1 CA 8.6 LAB L501.5300 136-14 mmol/L Low 5 NA 135 LAB L501.5600 3.5-5. mmol/L Normal 1 K 4.2 LAB L501.5900 98-107 mmol/L Normal CL 98 LAB L501.6100 21.0-3 mmol/L High 2.0 CO2 34.0 LAB L501.6200 5-15 Low GAP 3 Performed By: #### L500.2500 #### [facility] [address] [place], [place], [address] RETIC PANEL Collected: 01/28/2018 Status: F Source: [place] 12:30 PM [facility] REPOSITORY TYPE CODE TESTS RESULT OUT OF RANGE REFERENCE UNITS LAB L101.0000 0.5-1.5 % Normal RETIC 1.32 LAB L101.0060 3.00-15.90 % IM Normal RET FRACTION 3.90 LAB L101.0090 30-35 pg Normal RET-HE 32.1 LAB L101.0110 1.0-7.9 % Normal IPF 2.5 Result Comment: Low PLT + Low IPF suggest a bone marrow production disorder Low PLT + high IPF suggests peripheral destruction (e.g.ITP, TTP, HIT, DIC, autoimmune) or bone marrow recovery Trending of serial IPF measurements is recommended when evaluating for bone marrow respones Value above normal range indicates an increase in RBC cellular response from bone marrow. Performed By: #### L100.9950, L101.9900 #### [facility] [address] [place], [place], [id number] ERYTHROCYTE SED RATE Collected: 01/28/2018 Status: F Source: [place] 12:30 PM [facility] REPOSITORY TYPE CODE TESTS RESULT OUT OF RANGE REFERENCE UNITS LAB L102.0000 0-20 mm/hr High SED RATE 35 Performed By: #### L100.9950, L101.9900 #### [facility] [address] [place], [place], [id number] HEMOGLOBIN A1C Collected: 01/28/2018 Status: F Source: [place] 12:30 PM [facility] REPOSITORY TYPE CODE TESTS RESULT OUT OF RANGE REFERENCE UNITS LAB L501.9985 4.2-6.3 % Normal HGB A1C 5.8 Performed By: #### L501.9985 #### [facility] [address] [place], [place], [id number] FOLATES, (FOLIC ACID) Collected: 01/28/2018 Status: F Source: [place] 12:30 PM [facility] REPOSITORY TYPE CODE TESTS RESULT OUT OF RANGE REFERENCE UNITS LAB L506.0250 3.1-55.4 ng/mL Normal FOLATES 21.20 Result Comment: Slight Hemolysis, Result may be falsely increased. Performed By: #### L506.0250 #### [facility] [address] [place], [address] VITAMIN B12 Collected: 01/28/2018 Status: F Source: [place] 12:30 PM [facility] REPOSITORY TYPE CODE TESTS RESULT OUT OF RANGE REFERENCE UNITS LAB L503.0105 211-911 pg/mL Normal Vitamin B12 729 Performed By: #### L503.0105 #### [place] [facility] [address] [place], [address] Observed: 01/28/2018 Status: F Source: [place] CULTURE, BLOOD (WB) 12:30 PM [facility] [place] REPOSITORY BC No growth in 5 days. Performed By: #### M200.1000 #### [facility] [address] [place], [address] CNOV Observed: 01/28/2018 Status: COMPLETED Source: [place] 11:00 AM [facility] REPOSITORY Office Visit (WSTR) REGINA ROJAS ([id number]) 1935 M Date Time Provider Department 01/28/18 11:00 AM BERNA MCCLAIN [facility] During your visit today, we recorded the following information about you: Temperature Pulse Respiration Blood pressure 99.1 degrees 60/minute 12/minute 116/69 Berna Mcclain CNP 01/28/2018 12:58 PM Signed Subjective HPI Pt presents with c/o decreased urine output x 2 days. When provider entered exam room, pt states he asked to remove his socks and noticed swelling and redness to LLE. States didn't think to look until they were waiting in exam room. +fever, +chills x 2 days. Hx LLE cellulitis that required hospital admission in 2016. States current sx of fever, chills, and decreased urine output are the same as when he was dx with cellulitis. Complex medical history. Managed at [facility]. Review of Systems Constitutional: Positive for chills and fever. Negative for diaphoresis. Genitourinary: Negative for dysuria, flank pain, frequency, hematuria and urgency. Skin: Positive for rash. Objective Physical Exam Constitutional: He is oriented to person, place, and time and well-developed, well-nourished, and in no distress. No distress. Neurological: He is alert and oriented to person, place, and time. Skin: Skin is warm. He is not diaphoretic. There is erythema. Erythema, heat and 3+pitting edema to LLE and Left foot. Pedal pulses palpable. Cap refill 3 sec. BP 116/69 Pulse 60 Temp 37.3 ?C (99.1 ?F) (Left Tympanic) Resp 12 .Patient presents with: Acute Visit: urine issues PAST MEDICAL HISTORY Diagnosis Date - Bacterial meningitis e-coli - Dyslipidemia - Hypertension - Myelopathy (HCC) - Nocardia infection chronic Bactrim therapy - Seizures (HCC) controlled on Neurontin - Sleep apnea - Subarachnoid hemorrhage (HCC) - Syringomyelia (HCC) cervical and thoracic PAST SURGICAL HISTORY Procedure Laterality Date - APPENDECTOMY HX 56 - HERNIA REPAIR HX 94 Rt inguinal - IANDamp;D ABSC; COMPL OR MULTI 2006 lt leg - IANDamp;D ABSC; SMPL OR SGL 2006 Rt forearm - KNEE ARTHROSCOP MENISCUS REPAIR MED/LAT 79, 80, 82, 84, 93 Rt knee - LAMINECT 1 SEGMT UNI/REAL EA ADD 07, 08 C7 T1 - PAST SURGICAL HISTORY OF drainage of SAH - PAST SURGICAL HISTORY OF THREAT ANALYST shunt placement - PAST SURGICAL HISTORY OF SVC and IVC filter - PAST SURGICAL HISTORY OF C7 synringo-subarachnoid shunt - PAST SURGICAL HISTORY OF T1 shunt placement - PAST SURGICAL HISTORY OF 06? bilateral cataract surgery - REVSC OPN/PRQ TIB/GARTH W/ANGIOPLASTY UNI 02-05-14 - ROTATOR CUFF REPAIR 97 Rt - SHOULDER ARTHROSCOPY/SURGERY 87,96 lt - TOTAL KNEE REPLACEMENT 00 Knee replacement, total Rt - TRANSURETHRAL ELEC-SURG PROSTATECTOM 96 ALLERGIES Cephlasporins [Cephalosporins]; Contrast Dye; Penicillins MEDICATIONS hydrocortisone (CORTEF) 20 mg tablet Take 20 mg by mouth once daily. metFORMIN (GLUCOPHAGE) 500 mg tablet Take 500 mg by mouth twice daily with meals. RANITIDINE HCL ORAL Take by mouth. losartan-hydrochlorothiazide 50-12.5 mg per tablet Take 1 tablet by mouth once daily. carvedilol (COREG) 3.125 mg tablet Take 3.125 mg by mouth once daily. HYDROcodone-Acetaminophen 10-325 mg per tablet Take 1 tablet by mouth twice daily. morphine SR (ORAMORPH SR) 15 mg 12 hr tablet Take 15 mg by mouth twice daily. pyridoxine (VITAMIN B-6) 100 mg tablet Take 100 mg by mouth once daily. MAGNESIUM OXIDE ORAL Take by mouth. gabapentin(NEURONTIN 300 MG CAP) take 600 mg in AM, 300 mg @ dinner time, and 600 mg at bedtime duloxetine hcl(CYMBALTA 30 MG CAP) Take one(1) capsule daily. FUROSEMIDE 40 MG TAB Take one(1) tablet daily. sulfamethoxazole/trimethoprim(BACTRIM DS 160 MG-800 MG TAB) Take one(1) tablet daily docusate sodium(STOOL SOFTENER 100 MG CAP) Take one(1) capsule twice daily. sennosides(VEGETABLE LAXATIVE 8.6 MG TAB) two tabs daily multivitamins(DAILY MULTIVITAMIN TAB) Take one(1) tablet daily. GARLIC 500 MG CAP one cap daily topiramate (TOPAMAX) 25 mg tablet Take 1 tab twice daily x2 weeks and then increase to 2 tabs twice daily and continue. zolpidem (AMBIEN) 5 mg tablet Take 5 mg by mouth at bedtime as needed. WARFARIN 6 MG TAB Take one tab daily FAMILY HISTORY Problem Relation Age of Onset - depression [Other] [OTHER] Sister - depression [Other] [OTHER] Mother - depression [Other] [OTHER] Brother - htn [Other] [OTHER] Father - alcoholism [Other] [OTHER] Father - Heart Father - Hypertension Father - Diabetes Father - Alcohol/Drug Father Social History Substance Use Topics - Smoking status: Former Smoker - Smokeless tobacco: Not on file Comment: quit smoking in the 1950s - Alcohol use Yes Comment: a glass of wine at bedtime, occasional bourbon or beer BP 116/69 Pulse 60 Temp 37.3 ?C (99.1 ?F) (Left Tympanic) Resp 12 .Patient presents with: Acute Visit: urine issues PAST MEDICAL HISTORY Diagnosis Date - Bacterial meningitis e-coli - Dyslipidemia - Hypertension - Myelopathy (HCC) - Nocardia infection chronic Bactrim therapy - Seizures (HCC) controlled on Neurontin - Sleep apnea - Subarachnoid hemorrhage (HCC) - Syringomyelia (HCC) cervical and thoracic PAST SURGICAL HISTORY Procedure Laterality Date - APPENDECTOMY HX 56 - HERNIA REPAIR HX 94 Rt inguinal - IANDamp;D ABSC; COMPL OR MULTI 2006 lt leg - IANDamp;D ABSC; SMPL OR SGL 2006 Rt forearm - KNEE ARTHROSCOP MENISCUS REPAIR MED/LAT 79, 80, 82, 84, 93 Rt knee - LAMINECT 1 SEGMT UNI/REAL EA ADD 07, 08 C7 T1 - PAST SURGICAL HISTORY OF drainage of SAH - PAST SURGICAL HISTORY OF THREAT ANALYST shunt placement - PAST SURGICAL HISTORY OF SVC and IVC filter - PAST SURGICAL HISTORY OF C7 synringo-subarachnoid shunt - PAST SURGICAL HISTORY OF T1 shunt placement - PAST SURGICAL HISTORY OF 06? bilateral cataract surgery - REVSC OPN/PRQ TIB/GARTH W/ANGIOPLASTY UNI 02-05-14 - ROTATOR CUFF REPAIR 97 Rt - SHOULDER ARTHROSCOPY/SURGERY 87,96 lt - TOTAL KNEE REPLACEMENT 00 Knee replacement, total Rt - TRANSURETHRAL ELEC-SURG PROSTATECTOM 96 ALLERGIES Cephlasporins [Cephalosporins]; Contrast Dye; Penicillins MEDICATIONS hydrocortisone (CORTEF) 20 mg tablet Take 20 mg by mouth once daily. metFORMIN (GLUCOPHAGE) 500 mg tablet Take 500 mg by mouth twice daily with meals. RANITIDINE HCL ORAL Take by mouth. losartan-hydrochlorothiazide 50-12.5 mg per tablet Take 1 tablet by mouth once daily. carvedilol (COREG) 3.125 mg tablet Take 3.125 mg by mouth once daily. HYDROcodone-Acetaminophen 10-325 mg per tablet Take 1 tablet by mouth twice daily. morphine SR (ORAMORPH SR) 15 mg 12 hr tablet Take 15 mg by mouth twice daily. pyridoxine (VITAMIN B-6) 100 mg tablet Take 100 mg by mouth once daily. MAGNESIUM OXIDE ORAL Take by mouth. gabapentin(NEURONTIN 300 MG CAP) take 600 mg in AM, 300 mg @ dinner time, and 600 mg at bedtime duloxetine hcl(CYMBALTA 30 MG CAP) Take one(1) capsule daily. FUROSEMIDE 40 MG TAB Take one(1) tablet daily. sulfamethoxazole/trimethoprim(BACTRIM DS 160 MG-800 MG TAB) Take one(1) tablet daily docusate sodium(STOOL SOFTENER 100 MG CAP) Take one(1) capsule twice daily. sennosides(VEGETABLE LAXATIVE 8.6 MG TAB) two tabs daily multivitamins(DAILY MULTIVITAMIN TAB) Take one(1) tablet daily. GARLIC 500 MG CAP one cap daily topiramate (TOPAMAX) 25 mg tablet Take 1 tab twice daily x2 weeks and then increase to 2 tabs twice daily and continue. zolpidem (AMBIEN) 5 mg tablet Take 5 mg by mouth at bedtime as needed. WARFARIN 6 MG TAB Take one tab daily FAMILY HISTORY Problem Relation Age of Onset - depression [Other] [OTHER] Sister - depression [Other] [OTHER] Mother - depression [Other] [OTHER] Brother - htn [Other] [OTHER] Father - alcoholism [Other] [OTHER] Father - Heart Father - Hypertension Father - Diabetes Father - Alcohol/Drug Father Social History Substance Use Topics - Smoking status: Former Smoker - Smokeless tobacco: Not on file Comment: quit smoking in the 1950s - Alcohol use Yes Comment: a glass of wine at bedtime, occasional bourbon or beer ASSESSMENT/PLAN: 1. Left leg cellulitis - ICD9: 682.6, ICD10: L03.116 (primary diagnosis) Pt referred to [facility] at this time for further evaluation and treatment of cellulitis d/t severity and complex medical hx. Pt and choose to be evaluated at [place] ED at this time. 2. Decreased urine output - ICD9: 788.5, ICD10: R34 - UA DIP B/O Berna Mcclain CNP Referring Provider: SELF [200] Allergies As of Date: 01/28/2018 Noted Allergy Reaction CEPHLASPORINS (CEPHALOSPORINS) 11/02/2009 12 - Shortness of Breath CONTRAST DYE 02/11/2014 4 - Hives Comments: CT contrast dye PENICILLINS 11/02/2009 2 - Rash 9 - Itching Date Reviewed: 01/28/2018 Reviewed by: Tawnya Boyd Ma - Fully Assessed Reason for Visit: Acute Visit [896] Cmt: urine issues Primary Visit Diagnosis:Left leg cellulitis [L03.116] Other Visit Diagnosis:Decreased urine output [R34] Order(s):UA DIP B/O [0001740] Order #: [id number] Prescriptions as of 01/28/2018 Sig: HYDROCORTISONE 20 MG TABLET Take 20 mg by mouth once robyn* METFORMIN 500 MG TABLET Take 500 mg by mouth twice da* RANITIDINE HCL ORAL Take by mouth. LOSARTAN 50 MG-HYDROCHLOROTHI* Take 1 tablet by mouth once d* CARVEDILOL 3.125 MG TABLET Take 3.125 mg by mouth once d* HYDROCODONE 10 MG-ACETAMINOPH* Take 1 tablet by mouth twice * MORPHINE ER 15 MG TABLET,EXTE* Take 15 mg by mouth twice morgan* PYRIDOXINE (VITAMIN B6) 100 M* Take 100 mg by mouth once morgan* MAGNESIUM OXIDE ORAL Take by mouth. NEURONTIN 300 MG CAPSULE take 600 mg in AM, 300 mg @ d* CYMBALTA 30 MG CAPSULE,DELAYE* Take one(1) capsule daily. FUROSEMIDE 40 MG TABLET Take one(1) tablet daily. BACTRIM DS 800 MG-160 MG TABL* Take one(1) tablet daily STOOL SOFTENER 100 MG CAPSULE Take one(1) capsule twice morgan* VEGETABLE LAXATIVE 8.6 MG TAB* two tabs daily DAILY MULTIVITAMIN TABLET Take one(1) tablet daily. 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 [place], [place] [address] Fax REHABILITATION SERVICES INITIAL EVALUATION MR#: [id number] Acct: [id number] Name: REGINA ROJAS Rep #: [id number] : 1935 82 From: Tiffany Christina DPT Referring Dr.: Josette Melendez MD Status: REG RCR Insurance: MEDICARE PART A B [employer] Patient's Visit Information REGINA ROJAS is a 82 year old M referred to Physical Therapy by Josette MCDONALD with a diagnosis of Left Shoulder Pain. Date of Evaluation: 01/17/18 Physical Therapist: Tiffany Christina - Visit Plan Frequency: 2x /Week Duration: 2 Weeks Plan: Focus on HEP- not above his head - Subjective Subjective: 2003 had a THREAT ANALYST shunt for temporary subarachnoid bleed- then was diagnosed with bacterial menengitis. 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 Thngs are constantly changing. Bottom line is can't operate anymore has been all over and they basically told him that there is nothing they can do. 99.5% of the problems are coming from the spinal cord- not peripheral. Can stand with a walker so his can pull up his pants. The left leg partially works. Both shoulders are torn but he is unable to go throughout surgery. Goes to the [facility]x [facility] week. Switched to the power chair about 2 weeks ago and the shoulder is better. Has a new chair but he has to redo the arms. Is here due to his left arm not working. Agg: anything - Pain starts in the shoulder blade and radiates to the triceps and deltoid. Eases: none Worst: 9/10 Best: 2/10. Stabbing pains. 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 No neck pain. Exercises 40 min before he gets out of bed in the morning. Uses his power wheelchair in the house. - Objective Posture: FH, RS, Increased kyphosis. Palpation: tender along scapula, upper trap, bicicipital groove and down the biceps and triceps to the elbow. ROM: flexion: 160 degrees, abd: to ear, ER: 40 degrees significant crunching and creaking. Strength: 5/5 throughout - Goals Goal 1:: Patient will be I with HEP and progression Goal Time Frame: 4-6 Weeks Goal 2:: Patinet will demo full ROM of the left UE Goal Time Frame: 4-6 Weeks Goal 3:: Patient will report 4/10 pain at its worst Goal Time Frame: 4-6 Weeks - Rehabilitation Potential Physical Therapy Diagnosis: Patient presents with hypomobility- he has decreased ROM and muscular endurance leading to increased pain Rehabilitation Potential: Fair - Anticipated Interventions Patient/Client Instruction: Educate patient on: Benefits of Fitness Program For the Purpose of:: To improve performance and independence with ADL's Therapeutic Exercise to Include: Strength training, Body mechanics, Postural training, Passive ROM, Active ROM, Scapular Strength/Stabilization For the Purpose of:: To improve performance and independence with ADL's Cryotherapy (ice pack, ice massage): Yes Thermo therapy (hot pack): Yes For the Purpose of:: To decrease pain Thank you for the opportunity to evaluate your patient. For Medicare and Medicare HMO plans, please review the plan of care and approve it. It will need to be FAXED BACK to us at [phone] for Medicare purposes. Please let me know if there are questions or concerns regarding this plan of care. Physician Signature: Date: <Electronically signed by Tiffany [place] DPT> 01/17/18 1241 CC: Josette [place] MD ELR Signed For Medicare only, by signing this I certify the plan of care. Physicians Signature Date ALLERGIES ALLERGIES DATE TYPE / CODE NAME / CODE REACTION SEVERITY SOURCE 11/06/20 Drug Penicillins/[id number] Rash [place] Allergy/580709831 0476(RXNORM) [facility] ([place] [facility]) Hospital Repository 11/06/20 Drug Cephalosporins/F00 Laryngospasms [place] Allergy/879774226 1261564(RXNORM) [facility] (SNOMED CT) Hospital Repository 11/06/20 Miscellaneous IVP DYE Rash Unknown [place] 18 Allergy/[id number] [facility] (SNOMED CT) Hospital Repository 02/12/20 DRUG CONTRAST DYE HIVES [place] 14 INGREDI/[id number] [facility] (SNOMED CT) [place] Repository 11/02/20 Drug CEPHALOSPORINS SHORTNESS OF High [place] 09 Class/[id number]([facility] NOMED [facility]) [place] Repository 11/02/20 Drug PENICILLINS RASH [place] 09 Class/[id number](S [facility] NOMED CT) [place] Repository ENCOUNTERS ENCOUNTERS ADMIT/DISCHARGE ACCOUNT NUMBER ADMITTING ENCOUNTER LOCATION SOURCE CLASS 12/19/2018 [id number] Ambulatory [facility] ding: Repository 12/07/2018 [id number] Ambulatory [facility] Repository 12/06/2018 [id number] Ambulatory [facility]: [facility] Repository 11/29/2018 [id number] Ambulatory [facility]: [facility] Repository 11/28/2018 [id number] Ambulatory [facility]MSBuilding: [facility] Repository 11/26/2018/11/26/20 [id number] Ambulatory [address] ding: Repository 11/22/2018/11/26/20 [id number] Ambulatory BMSBuilding: [address] Repository 11/21/2018 [id number] Ambulatory BMSBuilding: [facility] Repository 11/16/2018 [id number] Ambulatory [facility] ding:MTLAB Repository 11/14/2018 [id number] Ambulatory BMSBuilding: [facility] Repository 11/13/2018 [id number] Ambulatory BMSBuilding: [facility] Repository 11/09/2018/11/09/20 [id number] Ambulatory [address] ding:SDCRoom Repository : AC17 11/08/2018 [id number] Ambulatory BMSBuilding: [facility] Repository 11/07/2018 [id number] Ambulatory BMSBuilding: [facility] Repository 11/06/2018 [id number] Ambulatory BMSBuilding: [place] BMS.[facility] hospital Hospital Repository 11/06/2018 [id number] Ambulatory BMSBuilding: [place] [facility] Hospital Repository 10/30/2018 [id number] Ambulatory BMSBuilding: [place] BMS.CF.[facility] Hospital Repository 10/24/2018/10/26/20 [id number] Ambulatory [place] [address] [place] [address] [facility] Repository 10/24/2018 [id number] Ambulatory BMSBuilding: [place] BMS.CF.[facility] Hospital Repository 10/15/2018 [id number] [facility]ulatory [place] [facility] ding:MT[facility] Repository 09/28/2018/09/28/20 [id number] Ambulatory ABuilding:SD [place] 18 CCRoom: Health 0016Bed: B [facility] Repository 09/26/2018/09/26/20 [id number] Ambulatory [place] [address] [place] [address] Hospital ding: Repository 09/21/2018 [id number] [facility]ulatory [place] [facility] Hospital ding:OLS.WH[facility] Repository TCC 09/18/2018 [id number] [facility] [place] [facility] ding[facility] Repository TCC 09/14/2018 [id number] [facility] [place] [facility] ding[facility]OL[facility] Repository TCC 09/09/2018 [id number] [facility] [place] [facility] ding[facility]OL[facility].WHL Repository TCC 09/07/2018 [id number] [facility] [place] [facility] [facility] ding[facility]OLS.WHL Repository TCC 08/31/2018 [id number] Ambulatory [place] [facility] ding:OLS.WHL Repository TCC 08/24/2018 [id number] Ambulatory [place] [facility] ding:OLS.WHL Repository TCC 08/22/2018/08/26/20 [id number] Ambulatory [place] Mirza [address] [place] [address] [facility] ding:WC Repository 08/17/2018 [id number] Ambulatory Mirza [place] [facility] ding:OLS.WHL Repository TCC 08/11/2018/08/15/20 [id number] Agyepong, Inpatient [place] 18 [facility] ding:PCURoom Repository : [id number]: 1 08/11/2018 [id number] Agyepong, Ambulatory BMSBuilding: [place] Saenz BMS.[facility] Repository 08/11/2018 [id number] Agyepong, Ambulatory BMSBuilding: Mirza Dany BMS.[facility] Repository 08/11/2018 [id number] Agyepong, Ambulatory BMSBuilding: Mirza Dany BMS.[facility] Repository 08/11/2018 [id number] Agyepong, Ambulatory BMSBuilding: Mirza Dany BMS.[facility] Repository 08/11/2018 [id number] Agyepong, Ambulatory BMSBuilding: Mirza Dany BMS.[facility] Repository 08/11/2018 [id number] Ambulatory BMSBuilding: Mirza [facility] Repository 08/11/2018/08/15/20 [id number] Ambulatory BMSBuilding: [place] [address] [place] [address] Repository 08/11/2018/08/15/20 [id number] Ambulatory BMSBuilding: Mirza[address] Repository 08/10/2018 [id number] Ambulatory [facility] ding:OLS.L Repository TCC 08/05/2018 [id number] Ambulatory [facility] ding:OLS.L Repository TCC 08/02/2018 [id number] Ambulatory [facility] ding:OLS.L Repository TCC 07/27/2018/07/27/20 [id number] Ambulatory BMSBuilding: Mirza 18 BMS.[facility] Repository 07/23/2018 [id number] Ambulatory [facility] ding:OLS.L Repository TCC 07/18/2018 [id number] Ambulatory [facility] ding:OLS.L Repository TCC 07/16/2018 [id number] Ambulatory [facility] ding:OLS.L Repository TCC 07/06/2018/07/09/20 [id number] Ambulatory BMSBuilding: Mirza 18 [facility] Repository 07/05/2018/07/09/20 [id number] Ashelfah, Inpatient Mirza [place] 18 Ghasem Encounter [facility] ding:PCURoom Repository : [id number]: 1 07/05/2018 [id number] Ashelfah, Ambulatory BMSBuilding: [place] Ghasem BMS.[facility] Repository 07/05/2018 [id number] Ashelfah, Ambulatory BMSBuilding: [place] Ghasem BMS.[facility] Repository 07/05/2018 [id number] Ashelfah, Ambulatory BMSBuilding: [place] Ghasem BMS..[facility] Repository 07/05/2018 [id number] Ashelfah, Ambulatory BMSBuilding: [place] Ghasem BMS.[facility] Repository 07/05/2018 [id number] Ashelfah, Ambulatory BMSBuilding: [place] Ghasem [facility] Repository 07/05/2018 [id number] Ashelfah, Ambulatory BMSBuilding: Mirza Ghasem BMS.[facility] Repository 07/05/2018 [id number] Ashelfah, Ambulatory BMSBuilding: [place] Ghasem [facility] Repository 07/05/2018 [id number] Ashelfah, Ambulatory BMSBuilding: [place] Ghasem BMS.[facility] Repository 07/05/2018 [id number] Ashelf, Ambulatory BMSBuilding: [place] Ghasem [facility] Repository 07/05/2018/07/09/20 [id number] Ambulatory BMSBuilding: Mirza 18 [facility] Repository 02/21/2018 [id number] Ambulatory [facility] ding:MFPLAB Repository 02/05/2018 [id number] Ambulatory [facility] ding:MFPLAB Repository 01/28/2018/02/01/20 [id number] Sementi, Inpatient [place] Encounter [facility] ding:ZG1Ryfn Repository : [id number]: 1 01/28/2018 [id number] Sementi, Ambulatory BMSBuilding: Mirza Ana BMS.[facility] Repository 01/28/2018 [id number] Sementi, Ambulatory BMSBuilding: [place] Ana BMS.[facility] Repository 01/28/2018 [id number] Sementi, Ambulatory BMSBuilding: Mirza Ana BMS.[facility] Repository 01/28/2018 [id number] Sementi, Ambulatory BMSBuilding: [place] Ana BMS.[facility] Repository 01/28/2018/02/01/20 [id number] Ambulatory BMSBuilding: Mirza 18 [facility] Repository 01/28/2018/02/01/20 [id number] Ambulatory BMSBuilding: [place] 18 BMS.[facility] Repository 01/28/2018/01/30/20 [id number] Ambulatory [address] Repository 01/26/2018/01/27/20 [id number] Ambulatory [address] ding:PT Repository PAYERS PAYERS ENCOUNTER GUARANTOR PAYER SUBSCRIBER SOURCE 12/19/2018 REGINA Duncan Primary Insurance:SELF NOT GIVENUNK [place] [id number] S [facility] [place] Date:2018-11-27 Repository 65675Msn: () 12/07/2018 REGINA Duncan Primary Insurance:SELF NOT GIVENUNK [place] [id number] S [facility]Y [facility] Number: Effective [place] Date:2018-12-07 Repository 31648Hkh: (HP) 12/06/2018 REGINA Duncan Primary REGINA J [place] [id number] S Insurance:MEDICARE MEGGYESYDOB: [facility] PART A BPolicy Number: [id number] [place] [id number] Repository 82353Tfj: 330) Date:2018-12-06 [phone] (HP) 12/06/2018 Secondary REGINA Barryoster Insurance:HUMANA MEGGYESYDOB: [facility] [id number] Hospital Number: Repository [id number] Date:9630-34-08[address] [address], [place] [address]KC: 12/06/2018 Tertiary NOT GIVENUNK Mirza Insurance:SELF PAY [facility] Number: Effective Repository Date:2018-12-06 11/29/2018 REGINA Duncan Primary Insurance:SELF NOT GIVENUNK Mir[place] [id number] S PAY [facility] Number[facility] [place] Date:2018-11-29 Repository 10780Oob: () 11/28/2018 REGINA Duncan Primary Insurance:SELF NOT GIVENUNK [place] [id number] S PAY [facility] Number: [place] Date:2018-11-28 Repository 50878Cif: () 11/26/2018 REGINA Duncan Primary Insurance:SELF NOT GIVENUNK [place] [id number] S PAY [facility] Number: [place] Date:2018-10-27 Repository 13743Uml: () 11/22/2018 REGINA Duncan Primary Insurance:SELF NOT GIVENUNK [place] [id number] S PAY [facility] Number: [place] Date:2018-11-22 Repository 49378Aiu: () 11/21/2018 REGINA Duncan Primary Insurance:SELF NOT GIVENUNK [place] [id number] S PAY [facility] Number: [place] Date:2018-11-21 Repository 05689Huu: (HP) 11/16/2018 REGINA Duncan Primary REGINA Duncan [place] [id number] S Insurance:MEDICARE MEGGYESYDOB: [facility] PART A BPolicy Number: [id number] [place] [id number] Repository 85883Kix: (029) Date:2018-11-14 [phone] () 11/16/2018 Secondary REGINA J [place] Insurance:HUMANA MEGGYESYDOB: Community COMMERCIALPolicy [id number] Number: Repository [id number] Date:4872-71-62XR [address] [address]QR: 11/16/2018 Tertiary NOT GIVENUNK Mir[place] Insurance:SELF PAY [facility] Hospital Number: Effective Repository Date:2018-11-14 11/14/2018 REGINA J Primary REGINA J [place] [id number] S Insurance:MEDICARE MEGGYESYDOB: Community [place] PART A BPolicy Number: [id number] [id number] Repository 05323Yci: 330) Date:2018-11-14 [phone] () 11/14/2018 Secondary REGINA J [place] Insurance:HUMANA MEGGYESYDOB: [facility] [id number] Hospital Number: Repository [id number] Date:2988-60-08QT [address] [place] [address]QZ: 11/14/2018 Tertiary NOT GIVENUNK [place] Insurance:SELF PAY [facility] Number: Effective Repository Date:2018-11-14 11/13/2018 REGINA J Primary REGINA J [place] [id number] S Insurance:MEDICARE MEGGYESYDOB: Community [place] PART A BPolicy Number: [id number] Tingley HospitalMal[place] [id number] Repository 15[address]Cpn: 330) Date:2018-11-13 [phone] () 11/13/2018 Secondary REGINA J [place] Insurance:HUMANA MEGGYESYDOB: [facility] [id number] Hospital Number: Repository [id number] Date:2970-08-45MJ [address] [address]RJ: 11/13/2018 Tertiary NOT GIVENUNK Mirza Insurance:SELF PAY [facility] Number: Effective Repository Date:2018-11-13 11/09/2018 REGINA J Primary REGINA J [place] [id number] S Insurance:MEDICARE MEGGYESYDOB: Community [place] PART A BPolicy Number: [id number], [place] [id number] Repository 64[address]Jfb: (330) Date:2018-10-29 [phone] () 11/09/2018 Secondary REGINA J [place] Insurance:HUMANA MEGGYESYDOB: [facility] [id number] Hospital Number: Repository [id number] Date:7954-71-51AG [address] [address]MZ: 11/09/2018 Tertiary NOT GIVENUNK [place] Insurance:SELF PAY [facility] Number: Effective Repository Date:2018-10-29 11/08/2018 REGINA J Primary REGINA J [place] [id number] S Insurance:MEDICARE MEGGYESYDOB: [facility] [place] PART A BPolicy Number: [id number], [place] [id number] Repository 55[address]Drf: 330) Date:2018-11-08 [phone] () 11/08/2018 Secondary REGINA J [place] Insurance:HUMANA MEGGYESYDOB: [facility] [id number] Hospital Number: Repository [id number] Date:8672-39-44XS [address] [address]CC: 11/08/2018 Tertiary NOT GIVENUNK [place] Insurance:SELF PAY [facility] Number: Effective Repository Date:2018-11-08 11/07/2018 REGINA J Primary REGINA J [place] [id number] S Insurance:MEDICARE MEGGYESYDOB: Community [place] PART A BPolicy Number: [id number], [place] [id number] Repository [address]64[address]Jym: 330) Date:2018-11-07 [phone] () 11/07/2018 Secondary REGINA J [place] Insurance:HUMANA MEGGYESYDOB: [facility] [id number] Hospital Number: Repository [id number] Date:9401-74-78TK [address] [place] [address]DL: 11/07/2018 Tertiary NOT GIVENUNK [place] Insurance:SELF PAY [facility] Hospital Number: Effective Repository Date:2018-11-07 11/06/2018 REGINA J Primary REGINA J [place] [id number] S Insurance:MEDICARE MEGGYESYDOB: Community [place] PART A BPolicy Number: [id number], [place] [id number] Repository 88748Wft: (355) Date:2018-11-06 [phone] () 11/06/2018 Secondary REGINA J [place] Insurance:HUMANA MEGGYESYDOB: [facility] [id number] Hospital Number: Repository [id number] Date:1809-34-76CP [address] [place] [address]AU: 11/06/2018 Tertiary NOT GIVENUNK [place] Insurance:SELF PAY [facility] Hospital Number: Effective Repository Date:2018-11-06 11/06/2018 REGINA J Primary Insurance:SELF NOT GIVENUNK [place] [id number] S PAY [facility] Number: Effective [place] Date:2018-11-06 Repository 38388Nny: () 10/30/2018 REGINA J Primary REGINA J [place] [id number] S Insurance:MEDICARE MEGGYESYDOB: Community [place] PART A BPolicy Number: [id number], [place] [id number] Repository 97570Cde: (412) Date:2018-10-30 [phone] () 10/30/2018 Secondary REGINA J [place] Insurance:HUMANA MEGGYESYDOB: [facility] [id number] Hospital Number: Repository [id number] Date:6676-55-41SN [address] [place] [address]CW: 10/30/2018 Tertiary NOT GIVENUNK [place] Insurance:SELF PAY [facility] Hospital Number: Effective Repository Date:2018-10-30 10/24/2018 REGINA Duncan Primary REGINA J [place] [id number] S Insurance:MEDICARE MEGGYESYDOB: Community [place] PART A BPolicy Number: [id number], [place] [id number] Repository 73664Ync: (235) Date:2018-08-15 [phone] () 10/24/2018 Secondary REGINA J [place] Insurance:HUMANA MEGGYESYDOB: Community COMMERCIALPolicy [id number] Hospital Number: Repository [id number] Date:0846-83-05DX [address] [place] [address]MC: 10/24/2018 Tertiary NOT GIVENUNK [place] Insurance:SELF PAY [facility] Hospital Number: Effective Repository Date:2018-09-27 10/24/2018 REGINA J Primary Insurance:SELF NOT GIVENUNK [place] [id number] S PAY [facility] Number: [place] Date:2018-10-24 Repository 92019Duh: () 10/15/2018 REGINA Duncan Primary REGINA J [place] [id number] S Insurance:MEDICARE MEGGYESYDOB: [facility] PART A BPolicy Number: [id number], [place] [id number] Repository [address]Ygb: (759) Date:2018-10-15 [phone] () 10/15/2018 Secondary REGINA J [place] Insurance:HUMANA MEGGYESYDOB: Community COMMERCIALPolicy [id number] Hospital Number: Repository [id number] Date:8108-46-45LF [address] [place] [place] [address]JL: 10/15/2018 Tertiary NOT GIVENUNK [place] Insurance:SELF PAY [facility] Hospital Number: Effective Repository Date:2018-10-15 2018 REGINA Duncan Primary REGINA [facility] MEGGYESYDOB: Insurance:MEDICARE MEGGYESYDOB: [facility] [id number] PART BPolicy Number: [id number] Repository [address] [place] [id number] [address] [place], [place] Date:2018-09-25 - [place] [address]~RMEGGY@ 4652-77-66Frnj 17681Jfg: (330) JAIKT.NETTel: Name:[facility] [phone] Administrators LLCPO (HP)Tel: (000) (HP)Tel: (999) [address]Snzmwpzsh, [place] 000-0000 (WP) [phone] (WP) 69735SP: 2018 Secondary REGINA [facility] Insurance:HUMANA MEGGYESYDOB: [facility] INSCOPolicy Number: [id number] Repository [id number] Date:2018-09-26 - [place] 0710-87-04Fzqr 13792Osu: (330) Name:IC ENGINEER [phone] [place] [place] [address] ()Tel: 000) [address]WP: (WP) [phone] 09/26/2018 REGINA Duncan Primary REGINA Blue [id number] S Insurance:MEDICARE MEGGYESYDOB: [facility] PART A BPolicy Number: [id number], [place] [id number] Repository 38682Igv: (330) Date:2018-08-15 [phone] (HP) 09/26/2018 Secondary REGINA Duncan [place] Insurance:HUMANA MEGGYESYDOB: [facility] [id number] Hospital Number: Repository [id number] Date:4430-58-73OF [address] [place] [address]EY: 09/26/2018 Tertiary NOT GIVENUNK [place] Insurance:SELF PAY [facility] Hospital Number: Effective Repository Date:2018-08-27 09/21/2018 REGINA Duncan Primary Insurance:SELF NOT GIVENUNK [place] [id number] S PAY [facility] Effective Hospital [facility] Date:2018-09-21 Repository 11486Vkk: () 09/18/2018 REGINA Duncan Primary Insurance:SELF NOT GIVENUNK [place] [id number] S PAY [facility] Number: Effective Hospital [facility]:2018-09-18 Repository 27982Sjk: () 09/14/2018 REGINA Duncan Primary Insurance:SELF NOT GIVENUNK [place] [id number] S PAY [facility] Number: Effective Hospital [facility]:2018-09-14 Repository 01064Ujj: () 09/09/2018 REGINA Duncan Primary Insurance:SELF NOT GIVENUNK [place] [id number] S PAY [facility] Number: Effective Hospital [facility]:2018-09-09 Repository 40856Typ: () 09/07/2018 REGINA Duncan Primary Insurance:SELF NOT GIVENUNK [place] [id number] S PAY [facility] Number: Effective Hospital [facility]:2018-09-07 Repository 36352Pww: () 08/31/2018 REGINA Duncan Primary Insurance:SELF NOT GIVENUNK [place] [id number] S PAY [facility] Number: Effective Hospital [facility]:2018-08-31 Repository 42925Clm: () 08/24/2018 REGINA Duncan Primary Insurance:SELF NOT GIVENUNK [place] [id number] S PAY [facility] Number: Effective Hospital [facility]:2018-08-24 Repository 37653Lyw: () 08/22/2018 REGINA Duncan Primary REGINA Duncan [place] [id number] S Insurance:MEDICARE MEGGYESYDOB: Community [place] PART A BPolicy Number: [id number], [place] [id number] Repository 74526Ntr: (477) Date:2018-08-15 [phone] () 08/22/2018 Secondary REGINA J [place] Insurance:HUMANA MEGGYESYDOB: [facility] [id number] Hospital Number: Repository [id number] Date:6785-58-98GL [address] [address]VV: 08/22/2018 Tertiary NOT GIVENUNK [place] Insurance:SELF PAY [facility] Hospital Number: Effective Repository Date:2018-08-15 08/17/2018 REGINA J Primary Insurance:SELF NOT GIVENUNK [place] [id number] S PAY [facility] Number: Effective [place] Date:2018-08-17 Repository 69398Oof: () 08/11/2018 REGINA J Primary REGINA J [place] [id number] S Insurance:MEDICARE MEGGYESYDOB: Community [place] PART A BPolicy Number: [id number], [place] [id number] Repository 05351Qnu: (590) Date:[phone] () 08/11/2018 Secondary REGINA J [place] Insurance:HUMANA MEGGYESYDOB: [facility] [id number] Hospital Number: Repository [id number] Date:1052-67-89AB [address] [place] [address]TO: 08/11/2018 Tertiary NOT GIVENUNK [place] Insurance:SELF PAY [facility] Number: Effective Repository Date:2018-08-10 08/11/2018 REGINA J Primary REGINA J [place] [id number] S Insurance:MEDICARE MEGGYESYDOB: Community [place] PART A BPolicy Number: [id number], [place] [id number] Repository 07422Jha: 330) Date:2018-08-10 [phone] () 08/11/2018 Secondary REGINA J [place] Insurance:HUMANA MEGGYESYDOB: Community COMMERCIALPolic [id number] Hospital Number: Repository [id number] Date:8212-18-18Y[address] [address]GJ: 08/11/2018 Tertiary NOT GIVENUNK [place] Insurance:SELF PAY [facility] Hospital Number: Effective Repository Date:2018-08-11 08/11/2018 REGINA J Primary REGINA J [place] [id number] S Insurance:MEDICARE MEGGYESYDOB: Community [place] PART A BPolicy Number: [id number], [place] [id number] Repository 60147Hdr: (410) Date:2018-08-10 [phone] () 08/11/2018 Secondary REGINA J [place] Insurance:HUMANA MEGGYESYDOB: [facility] [id number] Hospital Number: Repository [id number] Date:1715-69-73KI[address] [address]HF: 08/11/2018 Tertiary NOT GIVENUNK [place] Insurance:SELF PAY [facility] Number: Effective Repository Date:2018-08-11 08/11/2018 REGINA J Primary REGINA J [place] [id number] S Insurance:MEDICARE MEGGYESYDOB: Community [place] PART A BPolicy Number: [id number], [place] [id number] Repository 55662Xoe: 330) Date:2018-08-10 [phone] () 08/11/2018 Secondary REGINA J [place] Insurance:HUMANA MEGGYESYDOB: [facility] [id number] Hospital Number: Repository [id number] Date:4879-42-26VQ[address] [address]NY: 08/11/2018 Tertiary NOT GIVENUNK [place] Insurance:SELF PAY [facility] Number: Effective Repository Date:2018-08-11 08/11/2018 REGINA J Primary REGINA J [place] [id number] S Insurance:MEDICARE MEGGYESYDOB: Community [place] PART A BPolicy Number: [id number], [place] [id number] Repository 15429Qbh: (330) Date:2018-08-10 [phone] () 08/11/2018 Secondary REGINA J [place] Insurance:HUMANA MEGGYESYDOB: [facility] [id number] Hospital Number: Repository [id number] Date:6221-07-80QW [address] [place] [place] [address]EL: 08/11/2018 Tertiary NOT GIVENUNK [place] Insurance:SELF PAY [facility] Number: Effective Repository Date:2018-08-11 08/11/2018 REGINA J Primary REGINA J [place] [id number] S Insurance:MEDICARE MEGGYESYDOB: Community [place] PART A BPolicy Number: [id number], [place] [id number] Repository 29[address]Hei: 330) Date:2018-08-10 [phone] () 08/11/2018 Secondary REGINA J [place] Insurance:HUMANA MEGGYESYDOB: [facility] 0832-27-29NLH Hospital Number: Repository [id number] Date:9872-62-83NC [address] [place] [place] [address]RW: 08/11/2018 Tertiary NOT GIVENUNK [place] Insurance:SELF PAY [facility] Number: Effective Repository Date:2018-08-11 08/11/2018 REGINA J Primary REGINA J [place] [id number] S Insurance:MEDICARE MEGGYESYDOB: Community [place] PART A BPolicy Number: [id number], [place] [id number] Repository 97035Gtz: (330) Date:2018-08-10 [phone] () 08/11/2018 Secondary REGINA J [place] Insurance:HUMANA MEGGYESYDOB: [facility] [id number] Hospital Number: Repository [id number] Date:0644-04-45KQ [address] [place] [place] [address]PF: 08/11/2018 Tertiary NOT GIVENUNK [place] Insurance:SELF PAY [facility] Hospital Number: Effective Repository Date:2018-08-11 08/11/2018 REGINA J Primary REGINA J [place] [id number] S Insurance:MEDICARE MEGGYESYDOB: Community [place] PART A BPolicy Number: [id number], [place] [id number] Repository 43308Shm: (046) Date:2018-08-10 [phone] () 08/11/2018 Secondary REGINA J [place] Insurance:HUMANA MEGGYESYDOB: [facility] [id number] Hospital Number: Repository [id number] Date:3986-79-66AJ [address] [place] [place] [address]QB: 08/11/2018 Tertiary NOT GIVENUNK [place] Insurance:SELF PAY [facility] Number: Effective Repository Date:2018-08-11 08/11/2018 REGINA J Primary REGINA J [place] [id number] S Insurance:MEDICARE MEGGYESYDOB: Community [place] PART A BPolicy Number: [id number], [place] [id number] Repository 93061Bpf: (120) Date:2018-08-10 [phone] () 08/11/2018 Secondary REGINA J [place] Insurance:HUMANA MEGGYESYDOB: [facility] [id number] Hospital Number: Repository [id number] Date:6719-34-28KI [address] [place] [address]UT: 08/11/2018 Tertiary NOT GIVENUNK [place]za Insurance:SELF PAY [facility]: Effective Repository Date:2018-08-11 08/10/2018 REGINA J Primary Insurance:SELF NOT GIVENUNK [place] [id number] S PAY [facility] Number: Effective Hospital [facility] Date:2018-08-10 Repository 79810Jur: () 08/05/2018 REGINA Duncan Primary Insurance:SELF NOT GIVENUNK [place] [id number] S [facility] Date:2018-08-05 Repository 72021Gab: (HP) 08/02/2018 REGINA Duncan Primary Insurance:SELF NOT GIVENUNK [place] [id number] S [facility]Y [facility] Date:2018-08-02 Repository 59532Rvf: () 07/27/2018 REGINA Duncan Primary REGINA Duncan [place] [id number] S Insurance:MEDICARE MEGGYESYDOB: [facility] PART A BPolicy Number: [id number] [facility] [place] [id number] Repository 98891Ite: (098) Date:2018-07-18 [phone] () 07/27/2018 Secondary REGINA Duncan Mirza Insurance:HUMANA MEGGYESYDOB: [id number] [facility] Number: Repository [id number] Date:9094-57-88UR[address] [address]AG: 07/27/2018 Tertiary NOT GIVENUNK Mirza Insurance:SELF PAY [facility] Number: Effective Repository Date:2018-07-25 07/23/2018 REGINA Duncan Primary Insurance:SELF NOT GIVENUNK [place] [id number] S PAY [facility]:2018-07-23 Repository 88640Uli: () 07/18/2018 REGINA Duncan Primary Insurance:SELF NOT GIVENUNK [place] [id number] S PAY [facility] Date:2018-07-18 Repository 88652Ihe: (HP) 07/16/2018 Regina J Primary Insurance:SELF NOT GIVENUNK [place] [id number] S PAY [facility] Number: Effective [place] Date:2018-07-16 Repository 25931Ovs: () 07/06/2018 REGINA J Primary REGINA J [place] [id number] S Insurance:MEDICARE MEGGYESYDOB: [facility] ELYRIA PART A BPolicy Number: [id number] [id number] Repository 38220Kdg: (366) Date:2018-07-05 [phone] () 07/06/2018 Secondary REGINA J Mirza Insurance:HUMANA MEGGYESYDOB: [facility] [id number] Hospital Number: Repository [id number] Date:5954-21-87OW [address] [place] [address]FX: 07/06/2018 Tertiary NOT GIVENUNK [place] Insurance:SELF PAY [facility] Number: Effective Repository Date:2018-07-06 07/05/2018 Regina J Primary Regina J [place] [id number] S Insurance:MEDICARE MeggyesyDOB: [facility] [place] PART A BPolicy Number: [id number][place] [id number] Repository 03243Nzf: (861) Date:2018-07-05 [phone] () 07/05/2018 Secondary Regina J [place] Insurance:HUMANA MeggyesyDOB: [facility] [id number] Hospital Number: Repository [id number] Date:3137-00-29XF [address] [place] [address]AY: 07/05/2018 Tertiary NOT GIVENUNK [place]za Insurance:SELF PAY [facility] Number: Effective Repository Date:2018-07-05 07/05/2018 Regina J Primary Regina J [place] [id number] S Insurance:MEDICARE MeggyesyDOB: [facility] [place] PART A BPolicy Number: [id number], [place] [id number] Repository 79164Kfe: (330) Date:2018-07-054528 () 07/05/2018 Secondary Regina J [place] Insurance:HUMANA MeggyesyDOB: [facility] [id number] Hospital Number: Repository [id number] Date:4258-05-68YX [address] [place] [address]MM: 07/05/2018 Tertiary NOT GIVENUNK [place]za Insurance:SELF PAY [facility] Number: Effective Repository Date:2018-07-05 07/05/2018 Regina J Primary Regina J [place] [id number] S Insurance:MEDICARE MeggyesyDOB: [facility] [place] PART A BPolicy Number: [id number], [place] [id number] Repository 77958Alg: 330) Date:2018-07-051929 () 07/05/2018 Secondary Regina J [place] Insurance:HUMANA MeggyesyDOB: [facility] [id number] Hospital Number: Repository [id number] Date:1445-91-54HY[address] [address]SF: 07/05/2018 Tertiary NOT GIVENUNK [place] Insurance:SELF PAY [facility] Number: Effective Repository Date:2018-07-05 07/05/2018 Regina J Primary Regina J [place] [id number] S Insurance:MEDICARE MeggyesyDOB: [facility] [place] PART A BPolicy Number: [id number], [place] [id number] Repository 23277Rzq: 330) Date:2018-07-059354 () 07/05/2018 Secondary Regina J [place] Insurance:HUMANA MeggyesyDOB: [facility] [id number] Hospital Number: Repository [id number] Date:9143-97-47WJ[address] [address]LG: 07/05/2018 Tertiary NOT GIVENUNK [place]za Insurance:SELF PAY [facility] Number: Effective Repository Date:2018-07-05 07/05/2018 Regina J Primary Regina J [place] [id number] S Insurance:MEDICARE MeggyesyDOB: [facility] [place] PART A BPolicy Number: [id number], [place] [id number] Repository 76668Yer: (330) Date:2018-07-05 () 07/05/2018 Secondary Regina J Mirza Insurance:HUMANA MeggyesyDOB: Community COMMERCIALPolicy [id number] Hospital Number: Repository [id number] Date:8686-02-15KN[address] [address]BX: 07/05/2018 Tertiary NOT GIVENUNK [place] Insurance:SELF PAY [facility] Number: Effective Repository Date:2018-07-05 07/05/2018 Regina J Primary Regina J [place]za [id number] S Insurance:MEDICARE MeggyesyDOB: [facility] [place] PART A BPolicy Number: [id number], [place] [id number] Repository 62374Xhc: (330) Date:2018-07-05964 () 07/05/2018 Secondary Regina J [place] Insurance:HUMANA MeggyesyDOB: [facility] [id number] Hospital Number: Repository [id number] Date:3057-15-61TH[address] [address]TJ: 07/05/2018 Tertiary NOT GIVENUNK [place] Insurance:SELF PAY [facility] Number: Effective Repository Date:2018-07-05 07/05/2018 Regina J Primary Regina J [place] [id number] S Insurance:MEDICARE MeggyesyDOB: [facility] [place] PART A BPolicy Number: [id number], [place] [id number] Repository 42672Xqc: (330) Date:2018-07-05 () 07/05/2018 Secondary Regina J [place] Insurance:HUMANA MeggyesyDOB: [facility] COMMERCIALPolicy [id number] Hospital Number: Repository [id number] Date:5544-92-78NF [address] [place] [address]ZX: 07/05/2018 Tertiary NOT GIVENUNK [place] Insurance:SELF PAY [facility] Number: Effective Repository Date:2018-07-05 07/05/2018 Regina J Primary Regina J [place]za [id number] S Insurance:MEDICARE MeggyesyDOB: [facility] [place] PART A BPolicy Number: [id number], [place] [id number] Repository 14434Fnz: (058) Date:2018-07-05 [phone] () 07/05/2018 Secondary Regina J [place] Insurance:HUMANA MeggyesyDOB: [facility] [id number] Hospital Number: Repository [id number] Date:9329-86-57AJ [address] [address]GI: 07/05/2018 Tertiary NOT GIVENUNK [place] Insurance:SELF PAY [facility] Number: Effective Repository Date:2018-07-05 07/05/2018 Regina J Primary Regina J [place] [id number] S Insurance:MEDICARE MeggyesyDOB: [facility] [place] PART A BPolicy Number: [id number], [place] [id number] Repository 95660Dmu: (783) Date:2018-07-058104 () 07/05/2018 Secondary Regina J Mirza Insurance:HUMANA MeggyesyDOB: [facility] [id number] Hospital Number: Repository [id number] Date:4676-98-36XD[address] [address]OZ: 07/05/2018 Tertiary NOT GIVENUNK Mirza Insurance:SELF PAY [facility] Number: Effective Repository Date:2018-07-05 07/05/2018 Regina J Primary Regina J [place] [id number] S Insurance:MEDICARE MeggyesyDOB: [facility] [place] PART A BPolicy Number: [id number], [place] [id number] Repository 39439Zdv: 330) Date:2018-07-05 [phone] () 07/05/2018 Secondary Regina J Mirza Insurance:HUMANA MeggyesyDOB: [facility] [id number] Hospital Number: Repository [id number] Date:5821-12-31CL[address] [address]IZ: 07/05/2018 Tertiary NOT GIVENUNK Mirza Insurance:SELF PAY [facility] Number: Effective Repository Date:2018-07-05 07/05/2018 REGINA J Primary REGINA J [place] [id number] S Insurance:MEDICARE MEGGYESYDOB: [facility] [place] PART A BPolicy Number: [id number], [place] [id number] Repository 72314Zzk: 330) Date:2018-07-05 [phone] () 07/05/2018 Secondary REGINA J [place] Insurance:HUMANA MEGGYESYDOB: [facility] [id number] Hospital Number: Repository [id number] Date:4632-89-44DT[address] [address]DG: 07/05/2018 Tertiary NOT GIVENUNK [place] Insurance:SELF PAY [facility] Number: Effective Repository Date:2018-07-05 02/21/2018 Regina J Primary Regina J [place] [id number] S Insurance:MEDICARE MeggyesyDOB: [facility] [place] PART A BPolicy Number: [id number], [place] [id number] Repository 88[address]Tkj: Date:2018-02-21 ~33 0-4 (HP) 02/21/2018 Secondary Regina J [place] Insurance:HUMANA MeggyesyDOB: [facility] [id number] Hospital Number: Repository [id number] Date:4633-62-98UI [address] [address]YC: 02/21/2018 Tertiary NOT GIVENUNK [place] Insurance:SELF PAY [facility] Number: Effective Repository Date:2018-02-21 02/05/2018 Regina J Primary Regina J Mirza [id number] S Insurance:MEDICARE MeggyesyDOB: [facility] [place] PART A BPolicy Number: [id number], [place] [id number] Repository 21032Xlo: Date:2018-02-05 ~33 0-4 (HP) 02/05/2018 Secondary Regina J [place] Insurance:HUMANA MeggyesyDOB: Community COMMERCIALPolicy [id number] Hospital Number: Repository [id number] Date:8291-23-71DG [address] [address]SF: 02/05/2018 Tertiary NOT GIVENUNK [place] Insurance:SELF PAY [facility] Number: Effective Repository Date:2018-02-05 01/28/2018 Regina J Primary Regina J Mirza [id number] S Insurance:MEDICARE MeggyesyDOB: [facility] [place] PART A BPolicy Number: [id number], [place] [id number] Repository 86772Ifj: Date:2018-01-28 ~33 0-4 (HP) 01/28/2018 Secondary Regina J Mirza Insurance:HUMANA MeggyesyDOB: [facility] COMMERCIALPolicy [id number] Hospital Number: Repository [id number] Date:8613-41-85UO [address] [address]GU: 01/28/2018 Tertiary NOT GIVENUNK [place] Insurance:SELF PAY [facility] Number: Effective Repository Date:2018-01-28 01/28/2018 Regina J Primary Regina J [place] [id number] S Insurance:MEDICARE MeggyesyDOB: [facility] [place] PART A BPolicy Number: [id number], [place] [id number] Repository 27219Fpy: Date:2018-01-28 ~33 0-4 (HP) 01/28/2018 Secondary Regina J Mirza Insurance:HUMANA MeggyesyDOB: [facility] [id number] Hospital Number: Repository [id number] Date:6829-82-30JQ [address] [place] [address]QQ: 01/28/2018 Tertiary NOT GIVENUNK [place] Insurance:SELF PAY [facility] Hospital Number: Effective Repository Date:2018-01-28 01/28/2018 Regina J Primary Regina J Mirza [id number] S Insurance:MEDICARE MeggyesyDOB: [facility] [place] PART A BPolicy Number: [id number], [place] [id number] Repository 39[address]Wnz: Date:2018-01-28 ~33 0-4 (HP) 01/28/2018 Secondary Regina J [place] Insurance:HUMANA MeggyesyDOB: [facility] [id number] Hospital Number: Repository [id number] Date:0620-83-64RV [address] [address]KK: 01/28/2018 Tertiary NOT GIVENUNK [place] Insurance:SELF PAY [facility] Number: Effective Repository Date:2018-01-28 01/28/2018 Regina J Primary Regina J [place]za [id number] S Insurance:MEDICARE MeggyesyDOB: [facility] [place] PART A BPolicy Number: [id number], [place] [id number] Repository 08811Auj: Date:2018-01-28 ~33 0-4 (HP) 01/28/2018 Secondary Regina J [place] Insurance:HUMANA MeggyesyDOB: [facility] [id number] Hospital Number: Repository [id number] Date:4570-69-34CL [address] [address]BL: 01/28/2018 Tertiary NOT GIVENUNK [place] Insurance:SELF PAY [facility] Hospital Number: Effective Repository Date:2018-01-28 01/28/2018 Regina J Primary Regina J Mirza [id number] S Insurance:MEDICARE MeggyesyDOB: [facility] [place] PART A BPolicy Number: [id number], [place] [id number] Repository 32[address]Oum: Date:2018-01-28 ~33 0-4 (HP) 01/28/2018 Secondary Regina J [place] Insurance:HUMANA MeggyesyDOB: [facility] [id number] Hospital Number: Repository [id number] Date:4299-93-75UP [address] [address]XE: 01/28/2018 Tertiary NOT GIVENUNK [place] Insurance:SELF PAY [facility] Hospital Number: Effective Repository Date:2018-01-28 01/28/2018 Regina J Primary Regina J Mirza [id number] S Insurance:MEDICARE MeggyesyDOB: [facility] [place] PART A BPolicy Number: [id number], [place] [id number] Repository 727[address]Yql: Date:2018-01-28 ~33 0-4 (HP) 01/28/2018 Secondary Regina J [place] Insurance:HUMANA MeggyesyDOB: [facility] [id number] Hospital Number: Repository [id number] Date:5709-23-11IJ [address] [address]CA: 01/28/2018 Tertiary NOT GIVENUNK [place] Insurance:SELF PAY [facility] Hospital Number: Effective Repository Date:2018-01-28 01/28/2018 Regina J Primary Regina J Mirza [id number] S Insurance:MEDICARE MeggyesyDOB: [facility] [place] PART A BPolicy Number: [id number], [place] [id number] Repository 04534Xvl: Date:2018-01-28 ~33 0-4 (HP) 01/28/2018 Secondary Regina J [place] Insurance:HUMANA MeggyesyDOB: Community COMMERCIALPolicy [id number] Hospital Number: Repository [id number] Date:5070-04-80UU [address] [place] [address]VF: 01/28/2018 Tertiary NOT GIVENUNK [place] Insurance:SELF PAY [facility] Hospital Number: Effective Repository Date:2018-01-28 01/26/2018 Regina J Primary Regina J Mirza [id number] S Insurance:MEDICARE MeggyesyDOB: [facility] [place] PART A BPolicy Number: [id number], [place] [id number] Repository 84669Fxz: (330) Date:2002-09-27 [phone] () 01/26/2018 Secondary Regina J Mirza Insurance:HUMANA MeggyesyDOB: [facility] COMMERCIALPolicy [id number] Hospital Number: Repository [id number] Date:7628-67-38FB [address] [place] [address]BK: 01/26/2018 Tertiary NOT GIVENUNK [place] Insurance:SELF PAY [facility] Number: Effective Repository Date:2018-01-09
== END 2018-11-09 12:42 | disposition home or self-care (01) ==
LOC: SDC 07:54 → AC 07:54
PROVIDERS: Family Provider Family Medicine; PCP Family Medicine; Referring Provider Podiatrist; Visit Provider Podiatrist
DX: L97.412 Non-pressure chronic ulcer of right heel and midfoot with fat layer exposed (principal); L97.312 Non-pressure chronic ulcer of right ankle with fat layer exposed; L97.512 Non-pressure chronic ulcer of other part of right foot with fat layer exposed; L97.812 Non-pressure chronic ulcer of other part of right lower leg with fat layer exposed; L97.925 Non-pressure chronic ulcer of unspecified part of left lower leg with muscle involvement without evidence of necrosis; I25.10 Atherosclerotic heart disease of native coronary artery without angina pectoris; I25.2 Old myocardial infarction; I73.9 Peripheral vascular disease, unspecified; I10 Essential (primary) hypertension; E46 Unspecified protein-calorie malnutrition; G25.81 Restless legs syndrome; E78.00 Pure hypercholesterolemia, unspecified; N40.0 Benign prostatic hyperplasia without lower urinary tract symptoms; F32.9 Major depressive disorder, single episode, unspecified; G12.21 Amyotrophic lateral sclerosis; Z79.01 Long term (current) use of anticoagulants; Z79.899 Other long term (current) drug therapy
CPT/HCPCS: 11042; 11045; J7120; J2405

== ENCOUNTER → 2018-11-16 08:47 | Outpatient (CLI) | payer MEDICARE, OTHER, SELFPAY ==
[2018-11-09 08:23] VITALS: BMI 24.3
[2018-11-16 11:07] LABS: ALB/GLOB Ratio 0.8 RATIO (0.9-2.4); AST(SGOT) 46 U/L (15-37); Alanine Aminotransfer ALT/SGPT 83 U/L (16-61); Albumin, Serum 3.4 g/dL (3.2-5.0); Alkaline Phosphatase 203 U/L (45-117); Anion Gap 7 (5-15); BUN 32 mg/dL (7-18); BUN/Creat Ratio 36.2 RATIO (10-20); Calcium,Total 9.2 mg/dL (8.5-10.1); Chloride 105 mmol/L (98-107); Creatinine, Serum 0.88 mg/dL (0.70-1.30); EST Glomerular Filtration Rate 88 mL/min (>60); Est Glom Filt Rate - Afr Amer 106 mL/min (>60); Globulin 4.2 g/dL (2.2-4.2); Glucose 155 mg/dL (74-106); Potassium 4.1 mmol/L (3.5-5.1); Protein, Total 7.6 g/dL (6.4-8.2); Sodium Level 144 mmol/L (136-145); Thyroid Stim Hormone (TSH) 6.45 uIU/mL (0.358-3.74)
== END ==
PROVIDERS: Family Provider Family Medicine; PCP Family Medicine; Referring Provider Family Medicine; Visit Provider Family Medicine
DX: F32.9 Major depressive disorder, single episode, unspecified (principal)
CPT/HCPCS: 80053; 80178; 84443

== ENCOUNTER 2018-11-26 12:00 | Outpatient (RCR) | payer MEDICARE, OTHER, SELFPAY ==
[2018-10-27 01:24] VITALS: BP 139/71; PULSE 63; RESP 18; TEMP 36.4
[2018-10-30 13:26] VITALS: BP 137/74; PULSE 70; RESP 20; TEMP 36.4
--- NOTE | 2018-10-30 14:15 | HBO.PN.PCM_ITS ---
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 Ulcer with fat tissue exposed left leg, right leg, right ankle. Ulcer right heel with fat and fascial layer exposed. Previously medically treated osteomyelitis. 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 Progress: Today is his 1st treatment out of 30. Tolerance of hyperbaric oxygen therapy: Hyperbaric oxygen therapy was administered as per the facility's protocol. The patient tolerated hyperbaric oxygen therapy well, without complaints. Upon emergence from the hyperbaric chamber, the patient's vital signs remained stable. His right TM appears to have some barotrauma. His left TM looks erythematous. He will see Dr. John DOTSON for evaluation on Monday11/01/18 before he has any further treatments. The patient was discharged home. Past Medical History Chronic Problems (Last Reviewed 08/13/18 @ 10:19 by Fernando Patterson MD) Ulcer of right foot with fat layer exposed (Chronic) Other specified peripheral vascular diseases (Chronic) Unstageable pressure ulcer of left foot (Chronic) Unstageable pressure ulcer of right foot (Chronic) Ulcer of left lower extremity with fat layer exposed (Chronic) Malnutrition (Chronic) Delayed wound healing (Chronic) Edema leg (Chronic) Paralysis (Chronic) Ulcer of right lower extremity with fat layer exposed (Chronic) Osteomyelitis (Chronic) Chronic pain (Chronic) Nocardia infection (Chronic) 2004, right arm and left leg, 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 Allergies/Adverse Reactions: Allergies Cephalosporins Allergy (Intermediate, Verified 08/10/18 20:29) Laryngospasms Penicillins Allergy (Intermediate, Verified 08/10/18 20:29) Rash IVP DYE Allergy (Uncoded 07/05/18 10:04) Rash Home Medications: Ambulatory Orders Medication Instructions Recorded Multivitamins,Ther W-Minerals 1 tab PO DAILY@1700 #30 tab 09/18/14 [Multivitamin With Minerals] Pyridoxine HCl [Vitamin B-6] 100 mg PO DAILY@1700 #30 tab 09/18/14 Losartan Potassium [Cozaar] 12.5 mg PO DAILY@2200 01/12/16 Riboflavin [Vitamin B2] 300 mg PO DAILY@1700 11/10/16 Ascorbic Acid [Vitamin C] 500 mg PO TID 07/05/18 Escitalopram Oxalate [Lexapro] 10 mg PO DAILY 07/05/18 Gabapentin [Neurontin] 600 mg PO 4X/DAY 07/05/18 [place] Carbonate 150 mg PO TID 07/05/18 Atorvastatin Calcium [Lipitor] 40 mg PO QHS #90 tab 07/09/18 Carvedilol [Coreg (Beta Krissy)] 6.25 mg PO BID #90 tab 07/09/18 Clopidogrel Bisulfate [Plavix] 75 mg PO DAILY #90 tab 07/09/18 Isosorbide Mononitrate 10 mg PO QHS #90 tab 07/09/18 Morphine Sulfate [Morphine Sulfate 30 mg PO BID 2 Days #4 tablet.er 07/09/18 ER] Hydrocodone/Acetaminophen 10 - 325 mg PO DAILY 08/10/18 [Hydrocodone-Acetamin 10-325 mg] Furosemide [Lasix] 40 mg PO DAILY 08/11/18 Magnesium 400 mg PO BID 08/11/18 Potassium Chloride 20 meq DAILY 08/11/18 Sennosides/Docusate Sodium 2 each PO DAILY 08/11/18 [Senna-S Laxative Tablet] traZODone [Desyrel] 25 mg PO QHS 08/11/18 Collagenase [Santyl] 1 applic TOPICAL DAILY tube 08/14/18 Cyclobenzaprine [Flexeril] 10 mg PO TID PRN PRN tablet 08/14/18 Meropenem [Merrem] 500 mg IV Q8H 39 Days #117 vial 08/14/18 Metformin HCl [Glucophage] 500 mg PO BIDCM tablet 08/14/18 Mineral Oil/Petrolatum,White 1 applic TOPICAL BID jar 08/14/18 [Eucerin] Smz/Tmp Ds [Bactrim Ds] 1 tablet PO DAILY tablet 08/14/18 Baclofen 5 mg PO BID 08/22/18 Sulfamethoxazole/Trimethoprim 1 each PO DAILY 08/22/18 [Sulfamethoxazole-Tmp Ds Tablet] Maternal Family History: - - , depression Paternal Family History: - - Offspring Family History: - - 2 children, 4 grand children, 1 great grandchild, all in good health Smoking Status: Never smoker Physical Exam Vital Signs Temp Pulse Resp BP 97.5 F L 63 18 139/71 H 10/27/18 01:24 10/27/18 01:24 10/27/18 01:24 10/27/18 01:24 General: Alert, Oriented x3, Cooperative HEENT: Atraumatic, PERRLA, TM's Clear Lungs: Clear to auscultation, Normal air movement, No rhonchi Cardiovascular: Regular rate, Regular Rhythm Psych/Mental Status: Normal Affect, Appropriate, Flat Affect Assessment/Plan Active Problems (Last Reviewed 08/13/18 @ 10:19 by Fernando Patterson MD) Chronic refractory osteomyelitis of right foot (Acute) Other chronic osteomyelitis,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 (Acute) Patient did well while in the HBOT chamber today. He will be evaluated by Dr. Lopez ENT in two days for evaluation for eustachian tubes before he has another treatment. After the eustachian tubes are placed then his HBOT can continue as per his medial plan. Code Visit [id number] HBOT
[2018-10-31 14:59] VITALS: BP 153/74; PULSE 72; RESP 16; TEMP 36.9
--- NOTE | 2018-10-31 16:44 | PN.PCM_ITS ---
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 (2) Ulcer of right foot with fat layer exposed Status: Chronic Current Visit: Yes Code(s): L97.512 - Non-pressure chronic ulcer of other part of right foot with fat layer exposed (3) Ulcer of right lower extremity with fat layer exposed Status: Chronic Current Visit: Yes Code(s): L97.912 - Non-pressure chronic ulcer of unspecified part of right lower leg with fat layer exposed (4) Chronic refractory osteomyelitis of right foot Status: Chronic Current Visit: Yes Code(s): M86.671 - Other chronic osteomyelitis,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 (5) Malnutrition Status: Chronic Current Visit: Yes Code(s): E46 - Unspecified protein- calorie malnutrition (6) Delayed wound healing Status: Chronic Current Visit: Yes Code(s): T14.8XXD - Other injury of unspecified body region, subsequent encounter (7) Edema leg Status: Chronic Current Visit: Yes Code(s): R60.0 - Localized edema (8) Paralysis Status: Chronic Current Visit: Yes Code(s): G83.9 - Paralytic syndrome, unspecified Type of Wound Date of Service: 10/31/18 Chief Complaint: 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 Ulcer with fat tissue exposed left leg, right leg, right ankle. Ulcer right heel with fat and fascial layer exposed. Previously medically treated osteomyelitis. Paraplegia History of Wound: This 83-year-old male with multiple comorbidities was seen at the wound healing center for pressure ulcers to bilateral lower extremities. He has continued scab reduction with santyl use. He recently completed a vascular surgery evaluation with Dr. De Anda and an Angio without any identifiable intervention noted. He denies fever, chill, nausea, vomiting. He is a paraplegic and presents in a wheelchair. He continues to take Fred sup plementation. He did obtain bilateral donut offloading pillows and this helps keep pressure off the sites. He has been cleared for hyperbaric oxygen therapy and will start this process soon. He has also been cleared to have operating room debridement and application of advanced wound care product next Monday. He is with his today. Progress of Wound: Improving quality to all sites. Healed ulcers to left foot and heel - Physical Exam Vital Signs Temp Pulse Resp BP 98.4 F 72 16 153/74 H 10/31/18 14:59 10/31/18 14:59 10/31/18 14:59 10/31/18 14:59 General: Alert, Oriented x3, Cooperative Extremities: No cyanosis, Capillary Refill Less than 3 Seconds, No Calf Tenderness - negative tremaine and ham signs bilateral, Diminished Peripheral Pulses, Edema - mild bilateral Skin: Ulcer/ Wound - no purulence, no erythema, no streaking, odor noted bilateral. The lateral let leg ulcer site is tunneling about 1.3 cm proximal; no probe to bone noted. There is continued reduction of eschar formation and fibrous tissue to lateral right leg, ankle, and heel ulcer sites. bone is not directly visualized., - - the peripheral skin is hairless and atrophic. Wound Measurements and Assessment WC - Nurse 1 - General Ulcer Measurement Start: 10/30/18 08:53 Freq: Status: Active Protocol: Activity Type Activity Date Activity User E-Sign Co-Sign Detail Recorded Client Recorded Date Recorded By Document 10/31/18 14:59 [facility] [id number] 10/31/18 15:18 [facility] 10/31/18 14:59 Wound Center Nurse 1 [Ulcer Assessment] #7 RLat LE -Combined with other wound No -Current Size (cm) - Length 8.1 -Current Size (cm) - Width 1.5 -Current Size (cm) - Depth 0.3 -Total Square Cm 12.15 -Photo Taken No -Epithelialization None Present -Tunneling No -Undermining/Tunneling No -Circular Undermining No -Classification - Thickness Full Thickness without Exposed Support Structure -Exudate Amt Small (1-33%) -Exudate Type Sanguineous -Wound Margin Distinct, Outline Attached -Granulation Amt Small (1-33%) -Granulation Quality Red -Slough/Fibrin Yes -Necrosis Amt Large (67-100%) -Necrotic Tissue Type Adherent Slough -Texture (Denisse-wound Skin Appearance) Scarring -Moisture (Denisse-wound Skin Appearance Assessed ) Dry/Scaly -Color (Denisse-wound Skin Appearance) Assessed Hemosiderin Staining -Temperature (Denisse-wound Skin No Abnormality Appearance) (Pt Warm) -Tenderness on Palpation (Denisse-wound Yes Skin Appearance) -Ulcer Cleansing Rinsed/ Irrigated with Saline -Foul Odor after Cleansing No -Anesthetic Used 5% Lidocaine Gel #5 Posterior LLE -Combined with other wound No -Current Size (cm) - Length 2.2 -Current Size (cm) - Width 2 -Current Size (cm) - Depth 0.9 -Total Square Cm 4.4 -Photo Taken No -Epithelialization Small 1-33% -Tunneling Yes -Tunneling Position (O'clock) 11 -Tunneling Distance (cm) 1.2 -Undermining/Tunneling No -Circular Undermining No -Exudate Amt Small (1-33%) -Exudate Type Serosanguineous -Wound Margin Distinct, Outline Attached -Granulation Amt Large (67-100%) -Granulation Quality [place] -Slough/Fibrin No -Necrosis Amt None Present (0 %) -Texture (Denisse-wound Skin Appearance) Scarring -Moisture (Denisse-wound Skin Appearance Assessed ) Dry/Scaly -Color (Denisse-wound Skin Appearance) Assessed -Temperature (Denisse-wound Skin No Abnormality Appearance) (Pt Warm) -Tenderness on Palpation (Denisse-wound Yes Skin Appearance) -Ulcer Cleansing Rinsed/ Irrigated with Saline -Foul Odor after Cleansing No -Anesthetic Used 5% Lidocaine Gel #3 Right Heel -Combined with other wound No -Current Size (cm) - Length 1.5 -Current Size (cm) - Width 5.2 -Current Size (cm) - Depth 0.3 -Total Square Cm 7.80 -Photo Taken No -Epithelialization None Present -Tunneling No -Undermining/Tunneling No -Circular Undermining No -Classification - Thickness Full Thickness without Exposed Support Structure -Exudate Amt Medium (34-66%) -Exudate Type Serous -Wound Margin Distinct, Outline Attached -Granulation Amt Large (67-100%) -Granulation Quality [place] -Slough/Fibrin Yes -Necrosis Amt Small (1-33%) -Necrotic Tissue Type Adherent Slough -Texture (Denisse-wound Skin Appearance) Assessed Scarring -Moisture (Denisse-wound Skin Appearance Dry/Scaly ) -Color (Denisse-wound Skin Appearance) Assessed Erythema -Temperature (Denisse-wound Skin No Abnormality Appearance) (Pt Warm) -Tenderness on Palpation (Denisse-wound No Skin Appearance) -Ulcer Cleansing Rinsed/ Irrigated with Saline -Foul Odor after Cleansing No -Anesthetic Used 5% Lidocaine Gel #2 Right Lateral Ankle -Combined with other wound No -Current Size (cm) - Length 2.4 -Current Size (cm) - Width 2 -Current Size (cm) - Depth 0.2 -Total Square Cm 4.8 -Photo Taken No -Epithelialization None Present -Tunneling No -Undermining/Tunneling No -Circular Undermining No -Exudate Amt Small (1-33%) -Exudate Type Serosanguineous -Wound Margin Distinct, Outline Attached -Granulation Amt None Present (0 %) -Slough/Fibrin Yes -Necrosis Amt Large (67-100%) -Necrotic Tissue Type Adherent Slough -Texture (Denisse-wound Skin Appearance) Callus Scarring -Moisture (Denisse-wound Skin Appearance Dry/Scaly ) -Color (Denisse-wound Skin Appearance) Assessed -Temperature (Denisse-wound Skin No Abnormality Appearance) (Pt Warm) -Tenderness on Palpation (Denisse-wound No Skin Appearance) -Ulcer Cleansing Rinsed/ Irrigated with Saline -Foul Odor after Cleansing No -Anesthetic Used 5% Lidocaine Gel [Edema Assessment] -Lower Limb Edema Present No -Right Calf (cm) 29.5 -Right Ankle (cm) 21 -Left Calf (cm) 30 -Left Ankle (cm) 22 WC - Nurse 2 - General Ulcer CM Notes Start: 10/30/18 08:53 Freq: Status: Active Protocol: Activity Type Activity Date Activity User E-Sign Co-Sign Detail Recorded Client Recorded Date Recorded By Document 10/31/18 15:32 [id number] 10/31/18 15:38 10/31/18 15:32 Wound Center Nurse 2 [Procedure/Treatment] #7 RLat LE -Time 15:33 -Correct Patient Yes -Correct Side, Site, Position Yes -Correct Procedure Yes -Procedure Performed Yes -Type of Procedure Debridement -Clinical Debridement Subcutaneous -Post Debridement Size (cm) - Length 8.2 -Post Debridement Size (cm) - Width 1.6 -Post Debridement Size (cm) - Depth 0.3 -Total Square Cm 13.12 -Wound/Ulcer Outcome Not Healed -Ulcer Cleansing Rinsed/ Irrigated with Saline -Foul Odor after Cleansing No -Bioengineered Tissue No -Topical Lidocaine (%) 5 -Bleeding Controlled with Pressure -Offloading No -Treatment Response Procedure Tolerated Well #5 Posterior LLE -Time 15:34 -Correct Patient Yes -Correct Side, Site, Position Yes -Correct Procedure Yes -Procedure Performed Yes -Type of Procedure Debridement -Clinical Debridement Subcutaneous -Post Debridement Size (cm) - Length 2.3 -Post Debridement Size (cm) - Width 2.1 -Post Debridement Size (cm) - Depth 0.9 -Total Square Cm 4.83 -Wound/Ulcer Outcome Not Healed -Ulcer Cleansing Rinsed/ Irrigated with Saline -Foul Odor after Cleansing No -Bioengineered Tissue No -Topical Lidocaine (%) 5 -Bleeding Controlled with Pressure -Other tunneling @11 ( 1.7cm) -Treatment Response Procedure Tolerated Well #3 Right Heel -Time 15:34 -Correct Patient Yes -Correct Side, Site, Position Yes -Correct Procedure Yes -Procedure Performed Yes -Type of Procedure Debridement -Clinical Debridement Subcutaneous -Post Debridement Size (cm) - Length 1.6 -Post Debridement Size (cm) - Width 5.3 -Post Debridement Size (cm) - Depth 0.3 -Total Square Cm 8.48 -Wound/Ulcer Outcome Not Healed -Ulcer Cleansing Rinsed/ Irrigated with Saline -Foul Odor after Cleansing No -Bioengineered Tissue No -Topical Lidocaine (%) 5 -Bleeding Controlled with Pressure -Offloading Yes -Type of Offloading Surgical Shoe -Treatment Response Procedure Tolerated Well #2 Right Lateral Ankle -Time 15:34 -Correct Patient Yes -Correct Side, Site, Position Yes -Correct Procedure Yes -Procedure Performed Yes -Type of Procedure Debridement -Clinical Debridement Subcutaneous -Post Debridement Size (cm) - Length 2.5 -Post Debridement Size (cm) - Width 2.1 -Post Debridement Size (cm) - Depth 0.2 -Total Square Cm 5.25 -Wound/Ulcer Outcome Not Healed -Ulcer Cleansing Rinsed/ Irrigated with Saline -Foul Odor after Cleansing No -Bioengineered Tissue No -Topical Lidocaine (%) 5 -Bleeding Controlled with Pressure -Offloading Yes -Type of Offloading Surgical Shoe -Treatment Response Procedure Tolerated Well [See Physician Procedure note for Specifics] Pain Scale: 0-10 Numeric [Pain] -Is Patient Pain Free? Yes Musculoskeletal: No Tenderness to Palpation of Joints or Extremities, Muscle Wasting, - - paralysis bilateral lower extremity. compartments are soft to palpate bilateral lower extremities Neurological: - - lack of epicritic sensation to light and deep touch bilateral. lack of muscular resistance test consistent with paralysis, bilateral Psych/Mental Status: Normal Affect, Appropriate Debridement Note Post-Debridement Measurements/Treatment WC - Nurse 2 - General Ulcer CM Notes Start: 10/30/18 08:53 Freq: Status: Active Protocol: Activity Type Activity Date Activity User E-Sign Co-Sign Detail Recorded Client Recorded Date Recorded By Document 10/31/18 15:32 [id number] 10/31/18 15:38 TM 10/31/18 15:32 Wound Center Nurse 2 #7 RLat LE -Time 15:33 -Correct Patient Yes -Correct Side, Site, Position Yes -Correct Procedure Yes -Procedure Performed Yes -Type of Procedure Debridement -Clinical Debridement Subcutaneous -Post Debridement Size (cm) - Length 8.2 -Post Debridement Size (cm) - Width 1.6 -Post Debridement Size (cm) - Depth 0.3 -Total Square Cm 13.12 -Wound/Ulcer Outcome Not Healed -Ulcer Cleansing Rinsed/ Irrigated with Saline -Foul Odor after Cleansing No -Bioengineered Tissue No -Topical Lidocaine (%) 5 -Bleeding Controlled with Pressure -Offloading No -Treatment Response Procedure Tolerated Well #5 Posterior LLE -Time 15:34 -Correct Patient Yes -Correct Side, Site, Position Yes -Correct Procedure Yes -Procedure Performed Yes -Type of Procedure Debridement -Clinical Debridement Subcutaneous -Post Debridement Size (cm) - Length 2.3 -Post Debridement Size (cm) - Width 2.1 -Post Debridement Size (cm) - Depth 0.9 -Total Square Cm 4.83 -Wound/Ulcer Outcome Not Healed -Ulcer Cleansing Rinsed/ Irrigated with Saline -Foul Odor after Cleansing No -Bioengineered Tissue No -Topical Lidocaine (%) 5 -Bleeding Controlled with Pressure -Other tunneling @11 ( 1.7cm) -Treatment Response Procedure Tolerated Well #3 Right Heel -Time 15:34 -Correct Patient Yes -Correct Side, Site, Position Yes -Correct Procedure Yes -Procedure Performed Yes -Type of Procedure Debridement -Clinical Debridement Subcutaneous -Post Debridement Size (cm) - Length 1.6 -Post Debridement Size (cm) - Width 5.3 -Post Debridement Size (cm) - Depth 0.3 -Total Square Cm 8.48 -Wound/Ulcer Outcome Not Healed -Ulcer Cleansing Rinsed/ Irrigated with Saline -Foul Odor after Cleansing No -Bioengineered Tissue No -Topical Lidocaine (%) 5 -Bleeding Controlled with Pressure -Offloading Yes -Type of Offloading Surgical Shoe -Treatment Response Procedure Tolerated Well #2 Right Lateral Ankle -Time 15:34 -Correct Patient Yes -Correct Side, Site, Position Yes -Correct Procedure Yes -Procedure Performed Yes -Type of Procedure Debridement -Clinical Debridement Subcutaneous -Post Debridement Size (cm) - Length 2.5 -Post Debridement Size (cm) - Width 2.1 -Post Debridement Size (cm) - Depth 0.2 -Total Square Cm 5.25 -Wound/Ulcer Outcome Not Healed -Ulcer Cleansing Rinsed/ Irrigated with Saline -Foul Odor after Cleansing No -Bioengineered Tissue No -Topical Lidocaine (%) 5 -Bleeding Controlled with Pressure -Offloading Yes -Type of Offloading Surgical Shoe -Treatment Response Procedure Tolerated Well Pain Scale: 0-10 Numeric Is Patient Pain Free? Yes Wound debrided: lateral leg Laterality: Left Type of Debridement: Excisional debridement Anesthesia Used: 5% Lidocaine Gel Depth: in the subcutaneous layer Percentage of wound debrided: 100 Instrument Used: 5mm curette Tissue Removed: fibrous, devitalized subcutaneous, biofilm, slough Severity: Fat Layer Exposed Amount of bleeding with debridement: Mild Bleeding Controlled with: Pressure Patient tolerated procedure well - Additional Wound Wound debrided: heel Laterality: Right Type of Debridement: Excisional debridement Anesthesia Used: 5% Lidocaine Gel Depth: in the subcutaneous layer Percentage of wound debrided: 100 Instrument Used: #15 blade Tissue Removed: fibrous, devitalized subcutaneous, biofilm, slough Severity: Fat Layer Exposed Amount of bleeding with debridement: Mild Bleeding Controlled with: Pressure Patient tolerated procedure: Patient tolerated procedure well - Additional Wound Wound debrided: lateral ankle Laterality: Right Type of Debridement: Excisional debridement Anesthesia Used: 5% Lidocaine Gel Depth: in the subcutaneous layer Percentage of wound debrided: 100 Instrument Used: #15 blade Tissue Removed: fibrous, devitalized subcutaneous, biofilm, slough Severity: Fat Layer Exposed Amount of bleeding with debridement: Mild Bleeding Controlled with: Pressure Patient tolerated procedure: Patient tolerated procedure well - Additional Wound Wound debrided: lateral leg Laterality: Right Type of Debridement: Excisional debridement Anesthesia Used: 5% Lidocaine Gel Depth: in the subcutaneous layer Percentage of wound debrided: 100 Instrument Used: #15 blade Tissue Removed: fibrous, devitalized subcutaneous, biofilm, slough Severity: Fat Layer Exposed Amount of bleeding with debridement: Mild Bleeding Controlled with: Pressure Patient tolerated procedure: Patient tolerated procedure well Assessment/Plan Active Problems (Last Reviewed 08/13/18 @ 10:19 by Fernando Patterson MD) 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) Other chronic osteomyelitis,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 (Acute) Ulcer of right foot with fat layer exposed (Chronic) Ulcer of left lower extremity with fat layer exposed (Chronic) Malnutrition (Chronic) Delayed wound healing (Chronic) Edema leg (Chronic) Paralysis (Chronic) Ulcer of right lower extremity with fat layer exposed (Chronic) Assessment: Right lateral ankle unstageable pressure ulcer, no cellulitis. Fat layer exposed now. Right lateral leg ulcer, fat layer exposed. refractory osteomyelitis calcaneus, right. Right heel unstageable pressure ulcer, no cellulitis. fat layer exposed now. Left leg ulcer fat layer exposed (lateral). Peripheral vascular disease with rest pain. Other comorbidities. Delayed healing. Malnutrition. Paralysis and gait impairment with wheelchair use Plan: I reviewed and discussed his case today. His ulcer sites were debrided in a subcutaneous excisional manner to the right lateral ankle part of the right heel, left leg. It is noted the Santyl has broken down some of the eschar and there is moist tissue that benefited from being excised at this time. To continue Santyl dressing daily; to apply with nickel thickness. some of the left limb ulcers have healed and this is noted. This will be monitored very closely and there does not appear to be an infection. He had recent noninvasive vascular studies performed which demonstrated noncompressible vessels in which ankle-brachial indices were not calculated. 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 He did go for consultation with Dr. De Anda previously who formed an angioplasty to her in which intervention options were not identified. It is noted he does have perfusion opportunities available to the lower extremity on the right side. His labs were updated and discussed in his white blood cell count is 6.0, sedimentation rate 14, and hemoglobin A1c 5.8%. His updated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 x-rays do not demonstrate osseous destruction, periosteal reaction, soft tissue emphysema, acute fracture dislocation, or foreign body. Vessel calcification is seen on plain x-ray consistent with vessel disease. It is noted he completed a 6-week course of IV antibiotics and infectious disease has also been following him closely. He had a previous MRI which demonstrated mild marrow edema to the left calcaneus and lateral ankle consistent with osteomyelitis; the adjacent ulcer site have healed. He also had previous MRI which demonstrated these same findings to right calcaneus with adjacent ongoing delayed healing ulcer; this is the area of concern for refractory osteomyelitis at this time. Due to delayed healing, pain, and continued deep tissue exposure this is consistent with chronic osteomyelitis. I recommend hyperbaric oxygen therapy to optimize healing; this is medically necessary to optimize healing. He watched the video and reports he is amenable and able to travel to the wound healing center daily for this. His last chest x-ray and EKG were reviewed from July. It is noted his ejection fraction is 65%. A referral for wound care center provider for consultation was completed and he has been cleared. Insurance prior authorization has been completed and he is scheduled to start hyperbaric oxygen therapy next Monday. The benefits, risks, complications, anticipated healing time and management were discussed in detail the patient. He understands and elects to proceed with HBO at this time. I answered all his questions. It is okay to transfer with bilateral surgical shoes which were ordered today and while he is working with physical therapy. It is noted the patient and his are having difficulty offloading the sites at home. This patient would benefit from home health care as well as a pressure reduction mattress. This was already ordered and provided. He understands that he is at significant risk for limb loss and our goal at this time is to control any infectious process and establish a clear level of perfusion. To continue with nutritional supplementation, Fred. Due to the improvement in quality tissue after Santyl use, I recommend application of advanced wound care product in the operating room after versa jet aggressive subcutaneous excisional debridement. He is amenable to go to the operating room. I recommend amnio fill and epi cord application. Medical clearance was obtained from PCP, Dr. Melendez and he is tentatively scheduled for the procedure at [facility] on 11/09/2018. The goal is to complete this surgery with MAC and local anesthesia as a same day surgery procedure. The benefits, risks, complications, anticipated healing time management were discussed in detail with the patient in regard to the surgical procedure. He understands this is usually a staged procedure and this is for limb salvage purposes. Surgical consents were signed freely at his previous visit, and he understands no guarantees are made. This is medically necessary to optimize healing. I recommend he follows up the wound healing center 1 week or call sooner if he has any questions or concerns. I a nswered all his questions.
[2018-11-02 13:31] VITALS: BP 138/70; BP 163/78; PULSE 67; PULSE 70; RESP 16; TEMP 36.5; TEMP 36.9
--- NOTE | 2018-11-02 17:50 | PCM.HBO.PN ---
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 Ulcer with fat tissue exposed left leg, right leg, right ankle. Ulcer right heel with fat and fascial layer exposed. Previously medically treated osteomyelitis. 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 Progress: Today is his 2nd treatment out of 30. Tolerance of hyperbaric oxygen therapy: Hyperbaric oxygen therapy was administered as per the facility's protocol. The patient tolerated hyperbaric oxygen therapy well, without complaints. Upon emergence from the hyperbaric chamber, the patient's vital signs remained stable. He underwent myringotomy tube placement and tolerated this well. Tolerated hyperbaric treatment well today. 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) Ulcer of right foot with fat layer exposed (Chronic) Other specified peripheral vascular diseases (Chronic) Unstageable pressure ulcer of left foot (Chronic) Unstageable pressure ulcer of right foot (Chronic) Ulcer of left lower extremity with fat layer exposed (Chronic) Malnutrition (Chronic) Delayed wound healing (Chronic) Edema leg (Chronic) Paralysis (Chronic) Ulcer of right lower extremity with fat layer exposed (Chronic) Osteomyelitis (Chronic) Chronic pain (Chronic) Nocardia infection (Chronic) 2004, right arm and left leg, 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 Allergies/Adverse Reactions: Allergies Cephalosporins Allergy (Intermediate, Verified 08/10/18 20:29) Laryngospasms Penicillins Allergy (Intermediate, Verified 08/10/18 20:29) Rash IVP DYE Allergy (Uncoded 07/05/18 10:04) Rash Home Medications: Ambulatory Orders Medication Instructions Recorded Multivitamins,Ther W-Minerals 1 tab PO DAILY@1700 #30 tab 09/18/14 [Multivitamin With Minerals] Pyridoxine HCl [Vitamin B-6] 100 mg PO DAILY@1700 #30 tab 09/18/14 Losartan Potassium [Cozaar] 12.5 mg PO DAILY@2200 01/12/16 Riboflavin (Vitamin B2) [Vitamin 300 mg PO DAILY@1700 11/10/16 B2] Ascorbic Acid [Vitamin C] 500 mg PO TID 07/05/18 Escitalopram Oxalate [Lexapro] 10 mg PO DAILY 07/05/18 Gabapentin [Neurontin] 600 mg PO 4X/DAY 07/05/18 [place] Carbonate 150 mg PO TID 07/05/18 Atorvastatin Calcium [Lipitor] 40 mg PO QHS #90 tab 07/09/18 Carvedilol [Coreg (Beta Krissy)] 6.25 mg PO BID #90 tab 07/09/18 Clopidogrel Bisulfate [Plavix] 75 mg PO DAILY #90 tab 07/09/18 Isosorbide Mononitrate 10 mg PO QHS #90 tab 07/09/18 Morphine Sulfate [Morphine Sulfate 30 mg PO BID 2 Days #4 tablet.er 07/09/18 ER] Hydrocodone/Acetaminophen 10 - 325 mg PO DAILY 08/10/18 [Hydrocodone-Acetamin 10-325 mg] Furosemide [Lasix] 40 mg PO DAILY 08/11/18 Magnesium 400 mg PO BID 08/11/18 Potassium Chloride 20 meq DAILY 08/11/18 Sennosides/Docusate Sodium 2 each PO DAILY 08/11/18 [Senna-S Laxative Tablet] traZODone [Desyrel] 25 mg PO QHS 08/11/18 Collagenase [Santyl] 1 applic TOPICAL DAILY tube 08/14/18 Cyclobenzaprine [Flexeril] 10 mg PO TID PRN PRN tablet 08/14/18 Meropenem [Merrem] 500 mg IV Q8H 39 Days #117 vial 08/14/18 Metformin HCl [Glucophage] 500 mg PO BIDCM tablet 08/14/18 Mineral Oil/Petrolatum,White 1 applic TOPICAL BID jar 08/14/18 [Eucerin] Smz/Tmp Ds [Bactrim Ds] 1 tablet PO DAILY tablet 08/14/18 Baclofen 5 mg PO BID 08/22/18 Sulfamethoxazole/Trimethoprim 1 each PO DAILY 08/22/18 [Sulfamethoxazole-Tmp Ds Tablet] Maternal Family History: - - , depression Paternal Family History: - - Offspring Family History: - - 2 children, 4 grand children, 1 great grandchild, all in good health Smoking Status: Never smoker Tobacco Use: Non-smoker Alcohol: None Drugs: None Physical Exam Vital Signs Temp Pulse Resp BP 98.4 F 67 16 138/70 H 11/02/18 13:31 11/02/18 13:31 11/02/18 13:31 11/02/18 13:31 General: Alert, Oriented x3, Cooperative, No apparent distress Psych/Mental Status: Normal Affect, Appropriate Assessment/Plan Active Problems (Last Reviewed 08/13/18 @ 10:19 by Fernando Patterson MD) 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
[2018-11-05 13:58] VITALS: BP 138/89; BP 154/90; PULSE 66; PULSE 71; RESP 16; RESP 18; TEMP 36.6; TEMP 36.7
--- NOTE | 2018-11-05 16:28 | HBO.PN.PCM_ITS ---
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 Ulcer with fat tissue exposed left leg, right leg, right ankle. Ulcer right heel with fat and fascial layer exposed. Previously medically treated osteomyelitis. 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 Progress: Today is his 3rd treatment out of 30. Tolerance of hyperbaric oxygen therapy: Hyperbaric oxygen therapy was administered as per the facility's protocol. The patient tolerated hyperbaric oxygen therapy well, without complaints. Upon emergence from the hyperbaric chamber, the patient's vital signs remained stable. He underwent myringotomy tube placement and tolerated this well. Tolerated hyperbaric treatment well today. 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) Ulcer of right foot with fat layer exposed (Chronic) Other specified peripheral vascular diseases (Chronic) Unstageable pressure ulcer of left foot (Chronic) Unstageable pressure ulcer of right foot (Chronic) Ulcer of left lower extremity with fat layer exposed (Chronic) Malnutrition (Chronic) Delayed wound healing (Chronic) Edema leg (Chronic) Paralysis (Chronic) Ulcer of right lower extremity with fat layer exposed (Chronic) Osteomyelitis (Chronic) Chronic pain (Chronic) Nocardia infection (Chronic) 2004, right arm and left leg, 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 Allergies/Adverse Reactions: Allergies Cephalosporins Allergy (Intermediate, Verified 08/10/18 20:29) Laryngospasms Penicillins Allergy (Intermediate, Verified 08/10/18 20:29) Rash IVP DYE Allergy (Uncoded 07/05/18 10:04) Rash Home Medications: Ambulatory Orders Medication Instructions Recorded Multivitamins,Ther W-Minerals 1 tab PO DAILY@1700 #30 tab 09/18/14 [Multivitamin With Minerals] Pyridoxine HCl [Vitamin B-6] 100 mg PO DAILY@1700 #30 tab 09/18/14 Losartan Potassium [Cozaar] 12.5 mg PO DAILY@2200 01/12/16 Riboflavin (Vitamin B2) [Vitamin 300 mg PO DAILY@1700 11/10/16 B2] Ascorbic Acid [Vitamin C] 500 mg PO TID 07/05/18 Escitalopram Oxalate [Lexapro] 10 mg PO DAILY 07/05/18 Gabapentin [Neurontin] 600 mg PO 4X/DAY 07/05/18 [place] Carbonate 150 mg PO TID 07/05/18 Atorvastatin Calcium [Lipitor] 40 mg PO QHS #90 tab 07/09/18 Carvedilol [Coreg (Beta Krissy)] 6.25 mg PO BID #90 tab 07/09/18 Clopidogrel Bisulfate [Plavix] 75 mg PO DAILY #90 tab 07/09/18 Isosorbide Mononitrate 10 mg PO QHS #90 tab 07/09/18 Morphine Sulfate [Morphine Sulfate 30 mg PO BID 2 Days #4 tablet.er 07/09/18 ER] Hydrocodone/Acetaminophen 10 - 325 mg PO DAILY 08/10/18 [Hydrocodone-Acetamin 10-325 mg] Furosemide [Lasix] 40 mg PO DAILY 08/11/18 Magnesium 400 mg PO BID 08/11/18 Potassium Chloride 20 meq DAILY 08/11/18 Sennosides/Docusate Sodium 2 each PO DAILY 08/11/18 [Senna-S Laxative Tablet] traZODone [Desyrel] 25 mg PO QHS 08/11/18 Collagenase [Santyl] 1 applic TOPICAL DAILY tube 08/14/18 Cyclobenzaprine [Flexeril] 10 mg PO TID PRN PRN tablet 08/14/18 Meropenem [Merrem] 500 mg IV Q8H 39 Days #117 vial 08/14/18 Metformin HCl [Glucophage] 500 mg PO BIDCM tablet 08/14/18 Mineral Oil/Petrolatum,White 1 applic TOPICAL BID jar 08/14/18 [Eucerin] Smz/Tmp Ds [Bactrim Ds] 1 tablet PO DAILY tablet 08/14/18 Baclofen 5 mg PO BID 08/22/18 Sulfamethoxazole/Trimethoprim 1 each PO DAILY 08/22/18 [Sulfamethoxazole-Tmp Ds Tablet] Maternal Family History: - - , depression Paternal Family History: - - Offspring Family History: - - 2 children, 4 grand children, 1 great grandchild, all in good health Smoking Status: Never smoker Tobacco Use: Non-smoker Alcohol: None Drugs: None Physical Exam Vital Signs Temp Pulse Resp BP 97.8 F 66 18 138/89 H 11/05/18 13:58 11/05/18 13:58 11/05/18 13:58 11/05/18 13:58 General: Alert, Oriented x3, Cooperative, No apparent distress, Well developed, Well nourished HEENT: Atraumatic, PERRLA, EOMI, Normocephalic Lungs: Normal air movement Psych/Mental Status: Normal Affect, Appropriate, Alert and oriented to time, place, person, mood and affect Assessment/Plan Active Problems (Last Reviewed 08/13/18 @ 10:19 by Fernando Patterson MD) 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
[2018-11-06 12:37] VITALS: BP 163/75; PULSE 65; RESP 18; TEMP 36.6
--- NOTE | 2018-11-06 12:37 | HBO.PN.PCM_ITS ---
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 Ulcer with fat tissue exposed left leg, right leg, right ankle. Ulcer right heel with fat and fascial layer exposed. Previously medically treated osteomyelitis. 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 Progress: Today is his 4th treatment out of planned 30 treatments. Tolerance of hyperbaric oxygen therapy: Hyperbaric oxygen therapy was administered as per the facility's protocol. The patient tolerated hyperbaric oxygen therapy well. Upon emergence from the hyperbaric chamber, the patient's vital signs remained stable. Tolerated hyperbaric treatment well today. Moderate amount of creamy drainage from right ear, patient complained of some hearing loss after the treatment. Removed moderate amount of creamy drainage and patient noted improvement in hearing. No complaints of pain or discomfort. He has a follow up appointment with ENT next week. 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) Ulcer of right foot with fat layer exposed (Chronic) Other specified peripheral vascular diseases (Chronic) Unstageable pressure ulcer of left foot (Chronic) Unstageable pressure ulcer of right foot (Chronic) Ulcer of left lower extremity with fat layer exposed (Chronic) Malnutrition (Chronic) Delayed wound healing (Chronic) Edema leg (Chronic) Paralysis (Chronic) Ulcer of right lower extremity with fat layer exposed (Chronic) Osteomyelitis (Chronic) Chronic pain (Chronic) Nocardia infection (Chronic) 2004, right arm and left leg, 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 Allergies/Adverse Reactions: Allergies Cephalosporins Allergy (Intermediate, Verified 11/06/18 08:58) Laryngospasms Penicillins Allergy (Intermediate, Verified 11/06/18 08:58) Rash IVP DYE Allergy (Uncoded 11/06/18 08:58) Rash Home Medications: Ambulatory Orders Medication Instructions Recorded Losartan Potassium [Cozaar] 12.5 mg PO DAILY 01/12/16 Riboflavin (Vitamin B2) [Vitamin 300 mg PO DAILY@1700 11/10/16 B2] Ascorbic Acid [Vitamin C] 500 mg PO TID 07/05/18 Gabapentin [Neurontin] 600 mg PO TID 07/05/18 [place] Carbonate 150 mg PO TID 07/05/18 Furosemide [Lasix] 40 mg PO DAILY 08/11/18 Magnesium 500 mg PO BID 08/11/18 Sennosides/Docusate Sodium 2 each PO DAILY 08/11/18 [Senna-S Laxative Tablet] traZODone [Desyrel] 25 mg PO QHS 08/11/18 Collagenase [Santyl] 1 applic TOPICAL DAILY tube 08/14/18 Mineral Oil/Petrolatum,White 1 applic TOPICAL BID jar 08/14/18 [Eucerin] Atorvastatin Calcium [Lipitor] 40 mg PO QHS 11/06/18 Carvedilol [Coreg (Beta Krissy)] 3.125 mg PO BID 11/06/18 Clopidogrel Bisulfate [Plavix] 75 mg PO DAILY 11/06/18 Cyclobenzaprine [Flexeril] 2.5 mg PO QHS PRN 11/06/18 Duloxetine Hcl [Cymbalta] 60 mg PO DAILY 11/06/18 Isosorbide Mononitrate 10 mg PO QHS 11/06/18 Morphine Sulfate [Morphine Sulfate 15 mg PO BID 11/06/18 ER] Multivitamins,Ther W-Minerals 1 tablet PO DAILY 11/06/18 [Multivitamin With Minerals] Nutritional Supplement [Fred - 1 packet PO BIDCM 11/06/18 [place] FLAVOR] Pyridoxine HCl [Vitamin B-6] 100 mg PO DAILY 11/06/18 Smz/Tmp Ds [Bactrim Ds] 1 tablet PO DAILY 11/06/18 Tamsulosin HCl [Flomax] 0.4 mg PO 1700 11/06/18 Maternal Family History: - - , depression Paternal Family History: - - Offspring Family History: - - 2 children, 4 grand children, 1 great grandchild, all in good health Smoking Status: Never smoker Tobacco Use: Non-smoker Alcohol: None Drugs: None Physical Exam Vital Signs Temp Pulse Resp BP 97.8 F 66 18 138/89 H 11/05/18 13:58 11/05/18 13:58 11/05/18 13:58 11/05/18 13:58 General: Alert, Oriented x3, Cooperative, No apparent distress HEENT: Atraumatic, - - s/p bilateral myringotomy tube placement, some cream colored drainage from right ear Lungs: Clear to auscultation, Normal air movement, No rhonchi, No wheeze Cardiovascular: Regular rate, Regular Rhythm Psych/Mental Status: Normal Affect, Appropriate, Alert and oriented to time, place, person, mood and affect Assessment/Plan Active Problems (Last Reviewed 08/13/18 @ 10:19 by Fernando Patterson MD) 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
[2018-11-06 13:48] VITALS: BP 163/75; BP 164/86; PULSE 65; PULSE 68; RESP 18; TEMP 36.4; TEMP 36.6
--- NOTE | 2018-11-06 14:43 | WC ---
HYPERBARIC NOTE: Patient is 5-days post tympanoplasty & P.E. tube insertion from TEED 3 barotrauma to right tympanum and TEED 1 barotrauma to left tympanum. He is having problem with continued and increasing drainage to the right ear, with hearing loss (T.V. @ home getting louder, C/o not hearing the sound in the chamber). His next F/U appointment w/Dr. Eris Lopez ENT is 11/15. This was rescheduled for 11/08 @ 3:10 p.m. following HBO treatment that day. notified and voice mail message left.
--- NOTE | 2018-11-07 12:16 | PCM.HBO.PN ---
History of Present Illness Date of Service: 11/07/18 Presenting Chief Complaint: 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 Ulcer with fat tissue exposed left leg, right leg, right ankle. Ulcer right heel with fat and fascial layer exposed. Previously medically treated osteomyelitis. 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 Progress: Today is his 5th treatment out of planned 30 treatments. Tolerance of hyperbaric oxygen therapy: Hyperbaric oxygen therapy was administered as per the facility's protocol. The patient tolerated hyperbaric oxygen therapy well. Upon emergence from the hyperbaric chamber, the patient's vital signs remained stable. Tolerated hyperbaric treatment well today. Still small amount creamy drainage to the right ear. No complaints of pain or discomfort. He has a follow up appointment with ENT tomorrow. 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) Ulcer of right foot with fat layer exposed (Chronic) Other specified peripheral vascular diseases (Chronic) Unstageable pressure ulcer of left foot (Chronic) Unstageable pressure ulcer of right foot (Chronic) Ulcer of left lower extremity with fat layer exposed (Chronic) Malnutrition (Chronic) Delayed wound healing (Chronic) Edema leg (Chronic) Paralysis (Chronic) Ulcer of right lower extremity with fat layer exposed (Chronic) Osteomyelitis (Chronic) Chronic pain (Chronic) Nocardia infection (Chronic) 2004, right arm and left leg, 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 Allergies/Adverse Reactions: Allergies Cephalosporins Allergy (Intermediate, Verified 11/06/18 08:58) Laryngospasms Penicillins Allergy (Intermediate, Verified 11/06/18 08:58) Rash IVP DYE Allergy (Uncoded 11/06/18 08:58) Rash Home Medications: Ambulatory Orders Medication Instructions Recorded Losartan Potassium [Cozaar] 12.5 mg PO DAILY 01/12/16 Riboflavin (Vitamin B2) [Vitamin 300 mg PO DAILY@1700 11/10/16 B2] Ascorbic Acid [Vitamin C] 500 mg PO TID 07/05/18 Gabapentin [Neurontin] 600 mg PO TID 07/05/18 [place] Carbonate 150 mg PO TID 07/05/18 Furosemide [Lasix] 40 mg PO DAILY 08/11/18 Magnesium 500 mg PO BID 08/11/18 Sennosides/Docusate Sodium 2 each PO DAILY 08/11/18 [Senna-S Laxative Tablet] traZODone [Desyrel] 25 mg PO QHS 08/11/18 Collagenase [Santyl] 1 applic TOPICAL DAILY tube 08/14/18 Mineral Oil/Petrolatum,White 1 applic TOPICAL BID jar 08/14/18 [Eucerin] Atorvastatin Calcium [Lipitor] 40 mg PO QHS 11/06/18 Carvedilol [Coreg (Beta Krissy)] 3.125 mg PO BID 11/06/18 Clopidogrel Bisulfate [Plavix] 75 mg PO DAILY 11/06/18 Cyclobenzaprine [Flexeril] 2.5 mg PO QHS PRN 11/06/18 Duloxetine Hcl [Cymbalta] 60 mg PO DAILY 11/06/18 Isosorbide Mononitrate 10 mg PO QHS 11/06/18 Morphine Sulfate [Morphine Sulfate 15 mg PO BID 11/06/18 ER] Multivitamins,Ther W-Minerals 1 tablet PO DAILY 11/06/18 [Multivitamin With Minerals] Nutritional Supplement [Fred - 1 packet PO BIDCM 11/06/18 [place] FLAVOR] Pyridoxine HCl [Vitamin B-6] 100 mg PO DAILY 11/06/18 Smz/Tmp Ds [Bactrim Ds] 1 tablet PO DAILY 11/06/18 Tamsulosin HCl [Flomax] 0.4 mg PO 1700 11/06/18 Maternal Family History: - - , depression Paternal Family History: - - Offspring Family History: - - 2 children, 4 grand children, 1 great grandchild, all in good health Smoking Status: Never smoker Tobacco Use: Non-smoker Alcohol: None Drugs: None Physical Exam Vital Signs Temp Pulse Resp BP 97.8 F 65 18 163/75 H 11/06/18 13:48 11/06/18 13:48 11/06/18 13:48 11/06/18 13:48 General: Alert, Oriented x3, Cooperative, No apparent distress HEENT: Atraumatic, TM's Clear - left clear, small amount of creamy drainage to right ear canal, TM intact Lungs: Clear to auscultation, Normal air movement Cardiovascular: Regular rate, Regular Rhythm Psych/Mental Status: Normal Affect, Appropriate, Alert and oriented to time, place, person, mood and affect Assessment/Plan Active Problems (Last Reviewed 08/13/18 @ 10:19 by Fernando Patterson MD) 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
[2018-11-07 12:58] VITALS: BP 139/72; BP 162/76; PULSE 68; PULSE 71; RESP 16; RESP 18; TEMP 36.5; TEMP 36.8
[2018-11-08 12:47] VITALS: BP 155/64; PULSE 70; RESP 16; TEMP 37.1
--- NOTE | 2018-11-08 13:26 | HBO.PN.PCM_ITS ---
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 Ulcer with fat tissue exposed left leg, right leg, right ankle. Ulcer right heel with fat and fascial layer exposed. Previously medically treated osteomyelitis. 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 Progress: Today is his 5th treatment out of planned 30 treatments. Tolerance of hyperbaric oxygen therapy: Hyperbaric oxygen therapy was administered as per the facility's protocol. The patient tolerated hyperbaric oxygen therapy well. Upon emergence from the hyperbaric chamber, the patient's vital signs remained stable. Tolerated hyperbaric treatment well today. Still small amount creamy drainage to the right ear (drainage amount decreasing). No complaints of pain or discomfort. He has a follow up appointment with ENT tomorrow. 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) Ulcer of right foot with fat layer exposed (Chronic) Other specified peripheral vascular diseases (Chronic) Unstageable pressure ulcer of left foot (Chronic) Unstageable pressure ulcer of right foot (Chronic) Ulcer of left lower extremity with fat layer exposed (Chronic) Malnutrition (Chronic) Delayed wound healing (Chronic) Edema leg (Chronic) Paralysis (Chronic) Ulcer of right lower extremity with fat layer exposed (Chronic) Osteomyelitis (Chronic) Chronic pain (Chronic) Nocardia infection (Chronic) 2004, right arm and left leg, 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 Allergies/Adverse Reactions: Allergies Cephalosporins Allergy (Intermediate, Verified 11/06/18 08:58) Laryngospasms Penicillins Allergy (Intermediate, Verified 11/06/18 08:58) Rash IVP DYE Allergy (Uncoded 11/06/18 08:58) Rash Home Medications: Ambulatory Orders Medication Instructions Recorded Losartan Potassium [Cozaar] 12.5 mg PO DAILY 01/12/16 Riboflavin (Vitamin B2) [Vitamin 300 mg PO DAILY@1700 11/10/16 B2] Ascorbic Acid [Vitamin C] 500 mg PO TID 07/05/18 Gabapentin [Neurontin] 600 mg PO TID 07/05/18 [place] Carbonate 150 mg PO TID 07/05/18 Furosemide [Lasix] 40 mg PO DAILY 08/11/18 Magnesium 500 mg PO BID 08/11/18 Sennosides/Docusate Sodium 2 each PO DAILY 08/11/18 [Senna-S Laxative Tablet] traZODone [Desyrel] 25 mg PO QHS 08/11/18 Collagenase [Santyl] 1 applic TOPICAL DAILY tube 08/14/18 Mineral Oil/Petrolatum,White 1 applic TOPICAL BID jar 08/14/18 [Eucerin] Atorvastatin Calcium [Lipitor] 40 mg PO QHS 11/06/18 Carvedilol [Coreg (Beta Krissy)] 3.125 mg PO BID 11/06/18 Clopidogrel Bisulfate [Plavix] 75 mg PO DAILY 11/06/18 Cyclobenzaprine [Flexeril] 2.5 mg PO QHS PRN 11/06/18 Duloxetine Hcl [Cymbalta] 60 mg PO DAILY 11/06/18 Isosorbide Mononitrate 10 mg PO QHS 11/06/18 Morphine Sulfate [Morphine Sulfate 15 mg PO BID 11/06/18 ER] Multivitamins,Ther W-Minerals 1 tablet PO DAILY 11/06/18 [Multivitamin With Minerals] Nutritional Supplement [Fred - 1 packet PO BIDCM 11/06/18 [place] FLAVOR] Pyridoxine HCl [Vitamin B-6] 100 mg PO DAILY 11/06/18 Smz/Tmp Ds [Bactrim Ds] 1 tablet PO DAILY 11/06/18 Tamsulosin HCl [Flomax] 0.4 mg PO 1700 11/06/18 Maternal Family History: - - , depression Paternal Family History: - - Offspring Family History: - - 2 children, 4 grand children, 1 great grandchild, all in good health Smoking Status: Never smoker Tobacco Use: Non-smoker Alcohol: None Drugs: None Physical Exam Vital Signs Temp Pulse Resp BP 98.7 F 70 16 155/64 H 11/08/18 12:47 11/08/18 12:47 11/08/18 12:47 11/08/18 12:47 General: Alert, Oriented x3, Cooperative, No apparent distress HEENT: Atraumatic, TM's Clear Lungs: Clear to auscultation, Normal air movement Cardiovascular: Regular rate, Regular Rhythm Psych/Mental Status: Normal Affect, Appropriate, Alert and oriented to time, p lace, person, mood and affect Assessment/Plan Active Problems (Last Reviewed 08/13/18 @ 10:19 by Fernando Patterson MD) 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
[2018-11-08 14:47] VITALS: BP 144/69; BP 155/64; PULSE 69; PULSE 70; RESP 16; TEMP 36.6; TEMP 37.1
[2018-11-09 08:23] VITALS: BMI 24.3
[2018-11-12 14:30] VITALS: BP 113/63; BP 126/59; PULSE 62; PULSE 69; RESP 16; RESP 18; TEMP 36.7; TEMP 37
--- NOTE | 2018-11-12 17:15 | PCM.HBO.PN ---
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 Ulcer with fat tissue exposed left leg, right leg, right ankle. Ulcer right heel with fat and fascial layer exposed. Previously medically treated osteomyelitis. 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 Progress: Today is his 7th treatment out of planned 30 treatments. Tolerance of hyperbaric oxygen therapy: Hyperbaric oxygen therapy was administered as per the facility's protocol. The patient tolerated hyperbaric oxygen therapy well. Upon emergence from the hyperbaric chamber, the patient's vital signs remained stable. Tolerated hyperbaric treatment well. The patient was discharged in good condition. 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) Ulcer of right foot with fat layer exposed (Chronic) Paralysis (Chronic) Non-pressure chronic ulcer of other part of right foot with fat layer exposed (Chronic) Other specified peripheral vascular diseases (Chronic) Unstageable pressure ulcer of left foot (Chronic) Unstageable pressure ulcer of right foot (Chronic) Ulcer of left lower extremity with fat layer exposed (Chronic) Malnutrition (Chronic) Delayed wound healing (Chronic) Edema leg (Chronic) Paralysis (Chronic) Ulcer of right lower extremity with fat layer exposed (Chronic) Osteomyelitis (Chronic) Chronic pain (Chronic) Nocardia infection (Chronic) 2004, right arm and left leg, 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 Allergies/Adverse Reactions: Allergies Cephalosporins Allergy (Intermediate, Verified 11/06/18 08:58) Laryngospasms Penicillins Allergy (Intermediate, Verified 11/06/18 08:58) Rash IVP DYE Allergy (Uncoded 11/06/18 08:58) Rash Home Medications: Ambulatory Orders Medication Instructions Recorded Losartan Potassium [Cozaar] 12.5 mg PO DAILY 01/12/16 Riboflavin (Vitamin B2) [Vitamin 300 mg PO DAILY@1700 11/10/16 B2] Ascorbic Acid [Vitamin C] 500 mg PO TID 07/05/18 Gabapentin [Neurontin] 600 mg PO TID 07/05/18 [place] Carbonate 150 mg PO TID 07/05/18 Furosemide [Lasix] 40 mg PO DAILY 08/11/18 Magnesium 500 mg PO BID 08/11/18 Sennosides/Docusate Sodium 2 each PO DAILY 08/11/18 [Senna-S Laxative Tablet] traZODone [Desyrel] 25 mg PO QHS 08/11/18 Collagenase [Santyl] 1 applic TOPICAL DAILY tube 08/14/18 Mineral Oil/Petrolatum,White 1 applic TOPICAL BID jar 08/14/18 [Eucerin] Atorvastatin Calcium [Lipitor] 40 mg PO QHS 11/06/18 Carvedilol [Coreg (Beta Krissy)] 3.125 mg PO BID 11/06/18 Clopidogrel Bisulfate [Plavix] 75 mg PO DAILY 11/06/18 Cyclobenzaprine [Flexeril] 2.5 mg PO QHS PRN 11/06/18 Duloxetine Hcl [Cymbalta] 60 mg PO DAILY 11/06/18 Isosorbide Mononitrate 10 mg PO QHS 11/06/18 Morphine Sulfate [Morphine Sulfate 15 mg PO BID 11/06/18 ER] Multivitamins,Ther W-Minerals 1 tablet PO DAILY 11/06/18 [Multivitamin With Minerals] Nutritional Supplement [Fred - 1 packet PO BIDCM 11/06/18 [place] FLAVOR] Pyridoxine HCl [Vitamin B-6] 100 mg PO DAILY 11/06/18 Smz/Tmp Ds [Bactrim Ds] 1 tablet PO DAILY 11/06/18 Tamsulosin HCl [Flomax] 0.4 mg PO 1700 11/06/18 Maternal Family History: - - , depression Paternal Family History: - - Offspring Family History: - - 2 children, 4 grand children, 1 great grandchild, all in good health Smoking Status: Never smoker Tobacco Use: Non-smoker Alcohol: None Drugs: None Physical Exam Vital Signs Temp Pulse Resp BP 98.6 F 69 18 113/63 11/12/18 14:30 11/12/18 14:30 11/12/18 14:30 11/12/18 14:30 General: Alert, Oriented x3, Cooperative, No apparent distress, Well developed, Well nourished HEENT: Atraumatic, PERRLA, EOMI, Normocephalic Lungs: Normal air movement Psych/Mental Status: Normal Affect, Appropriate, Alert and oriented to time, place, person, mood and affect Assessment/Plan Active Problems (Last Reviewed 08/13/18 @ 10:19 by Fernando Patterson MD) 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
--- NOTE | 2018-11-13 13:26 | HBO.PN.PCM_ITS ---
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 Ulcer with fat tissue exposed left leg, right leg, right ankle. Ulcer right heel with fat and fascial layer exposed. Previously medically treated osteomyelitis. 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 Progress: Today is his 8th treatment out of planned 30 treatments. Tolerance of hyperbaric oxygen therapy: Hyperbaric oxygen therapy was administered as per the facility's protocol. The patient tolerated hyperbaric oxygen therapy well. Upon emergence from the hyperbaric chamber, the patient's vital signs remained stable. Tolerated hyperbaric treatment well. The patient was discharged in good condition. 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) Ulcer of right foot with fat layer exposed (Chronic) Paralysis (Chronic) Non-pressure chronic ulcer of other part of right foot with fat layer exposed (Chronic) Other specified peripheral vascular diseases (Chronic) Unstageable pressure ulcer of left foot (Chronic) Unstageable pressure ulcer of right foot (Chronic) Ulcer of left lower extremity with fat layer exposed (Chronic) Malnutrition (Chronic) Delayed wound healing (Chronic) Edema leg (Chronic) Paralysis (Chronic) Ulcer of right lower extremity with fat layer exposed (Chronic) Osteomyelitis (Chronic) Chronic pain (Chronic) Nocardia infection (Chronic) 2004, right arm and left leg, 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 Allergies/Adverse Reactions: Allergies Cephalosporins Allergy (Intermediate, Verified 11/06/18 08:58) Laryngospasms Penicillins Allergy (Intermediate, Verified 11/06/18 08:58) Rash IVP DYE Allergy (Uncoded 11/06/18 08:58) Rash Home Medications: Ambulatory Orders Medication Instructions Recorded Losartan Potassium [Cozaar] 12.5 mg PO DAILY 01/12/16 Riboflavin (Vitamin B2) [Vitamin 300 mg PO DAILY@1700 11/10/16 B2] Ascorbic Acid [Vitamin C] 500 mg PO TID 07/05/18 Gabapentin [Neurontin] 600 mg PO TID 07/05/18 [place] Carbonate 150 mg PO TID 07/05/18 Furosemide [Lasix] 40 mg PO DAILY 08/11/18 Magnesium 500 mg PO BID 08/11/18 Sennosides/Docusate Sodium 2 each PO DAILY 08/11/18 [Senna-S Laxative Tablet] traZODone [Desyrel] 25 mg PO QHS 08/11/18 Collagenase [Santyl] 1 applic TOPICAL DAILY tube 08/14/18 Mineral Oil/Petrolatum,White 1 applic TOPICAL BID jar 08/14/18 [Eucerin] Atorvastatin Calcium [Lipitor] 40 mg PO QHS 11/06/18 Carvedilol [Coreg (Beta Krissy)] 3.125 mg PO BID 11/06/18 Clopidogrel Bisulfate [Plavix] 75 mg PO DAILY 11/06/18 Cyclobenzaprine [Flexeril] 2.5 mg PO QHS PRN 11/06/18 Duloxetine Hcl [Cymbalta] 60 mg PO DAILY 11/06/18 Isosorbide Mononitrate 10 mg PO QHS 11/06/18 Morphine Sulfate [Morphine Sulfate 15 mg PO BID 11/06/18 ER] Multivitamins,Ther W-Minerals 1 tablet PO DAILY 11/06/18 [Multivitamin With Minerals] Nutritional Supplement [Fred - 1 packet PO BIDCM 11/06/18 [place] FLAVOR] Pyridoxine HCl [Vitamin B-6] 100 mg PO DAILY 11/06/18 Smz/Tmp Ds [Bactrim Ds] 1 tablet PO DAILY 11/06/18 Tamsulosin HCl [Flomax] 0.4 mg PO 1700 11/06/18 Maternal Family History: - - , depression Paternal Family History: - - Offspring Family History: - - 2 children, 4 grand children, 1 great grandchild, all in [facility] Smoking Status: Never smoker Tobacco Use: Non-smoker Alcohol: None Drugs: None Physical Exam Vital Signs Temp Pulse Resp BP 98.6 F 69 18 113/63 11/12/18 14:30 11/12/18 14:30 11/12/18 14:30 11/12/18 14:30 General: Alert, Oriented x3, Cooperative, No apparent distress HEENT: Atraumatic, TM's Clear Lungs: Clear to auscultation, Normal air movement Cardiovascular: Regular rate, Regular Rhythm Psych/Mental Status: Normal Affect, Appropriate, Alert and oriented to time, place, person, mood and affect Assessment/Plan Active Problems (Last Reviewed 08/13/18 @ 10:19 by Fernando Patterson MD) 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
[2018-11-13 15:09] VITALS: BP 149/71; BP 151/79; PULSE 71; PULSE 72; RESP 16; TEMP 36.4; TEMP 36.8
[2018-11-14 11:30] VITALS: BP 141/70; PULSE 77; RESP 16; TEMP 36.8; BMI 24.3
[2018-11-14 12:31] VITALS: BP 131/58; BP 141/70; PULSE 71; PULSE 77; RESP 16; RESP 18; TEMP 36.6; TEMP 36.8
--- NOTE | 2018-11-14 13:22 | HBO.PN.PCM_ITS ---
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 Ulcer with fat tissue exposed left leg, right leg, right ankle. Ulcer right heel with fat and fascial layer exposed. Previously medically treated osteomyelitis. 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 Progress: Today is his 9th treatment out of planned 30 treatments. Small amount of creamy yellow drainage removed from right external ear canal. Patient tolerated well, no complaints. Tolerance of hyperbaric oxygen therapy: Hyperbaric oxygen therapy was administered as per the facility's protocol. The patient tolerated hyperbaric oxygen therapy well. Upon emergence from the hyperbaric chamber, the patient's vital signs remained stable. Tolerated hyperbaric treatment well. The patient was discharged in good condition. 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) Ulcer of right foot with fat layer exposed (Chronic) Paralysis (Chronic) Non-pressure chronic ulcer of other part of right foot with fat layer exposed (Chronic) Other specified peripheral vascular diseases (Chronic) Unstageable pressure ulcer of left foot (Chronic) Unstageable pressure ulcer of right foot (Chronic) Ulcer of left lower extremity with fat layer exposed (Chronic) Malnutrition (Chronic) Delayed wound healing (Chronic) Edema leg (Chronic) Paralysis (Chronic) Ulcer of right lower extremity with fat layer exposed (Chronic) Osteomyelitis (Chronic) Chronic pain (Chronic) Nocardia infection (Chronic) 2004, right arm and left leg, 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 Allergies/Adverse Reactions: Allergies Cephalosporins Allergy (Intermediate, Verified 11/06/18 08:58) Laryngospasms Penicillins Allergy (Intermediate, Verified 11/06/18 08:58) Rash IVP DYE Allergy (Uncoded 11/06/18 08:58) Rash Home Medications: Ambulatory Orders Medication Instructions Recorded Losartan Potassium [Cozaar] 12.5 mg PO DAILY 01/12/16 Riboflavin (Vitamin B2) [Vitamin 300 mg PO DAILY@1700 11/10/16 B2] Ascorbic Acid [Vitamin C] 500 mg PO TID 07/05/18 Gabapentin [Neurontin] 600 mg PO TID 07/05/18 [place] Carbonate 150 mg PO TID 07/05/18 Furosemide [Lasix] 40 mg PO DAILY 08/11/18 Magnesium 500 mg PO BID 08/11/18 Sennosides/Docusate Sodium 2 each PO DAILY 08/11/18 [Senna-S Laxative Tablet] traZODone [Desyrel] 25 mg PO QHS 08/11/18 Collagenase [Santyl] 1 applic TOPICAL DAILY tube 08/14/18 Mineral Oil/Petrolatum,White 1 applic TOPICAL BID jar 08/14/18 [Eucerin] Atorvastatin Calcium [Lipitor] 40 mg PO QHS 11/06/18 Carvedilol [Coreg (Beta Krissy)] 3.125 mg PO BID 11/06/18 Clopidogrel Bisulfate [Plavix] 75 mg PO DAILY 11/06/18 Cyclobenzaprine [Flexeril] 2.5 mg PO QHS PRN 11/06/18 Duloxetine Hcl [Cymbalta] 60 mg PO DAILY 11/06/18 Isosorbide Mononitrate 10 mg PO QHS 11/06/18 Morphine Sulfate [Morphine Sulfate 15 mg PO BID 11/06/18 ER] Multivitamins,Ther W-Minerals 1 tablet PO DAILY 11/06/18 [Multivitamin With Minerals] Nutritional Supplement [Fred - 1 packet PO BIDCM 11/06/18 [place] FLAVOR] Pyridoxine HCl [Vitamin B-6] 100 mg PO DAILY 11/06/18 Smz/Tmp Ds [Bactrim Ds] 1 tablet PO DAILY 11/06/18 Tamsulosin HCl [Flomax] 0.4 mg PO 1700 11/06/18 Maternal Family History: - - , depression Paternal Family History: - - Offspring Family History: - - 2 children, 4 grand children, 1 great grandchild, all in good health Smoking Status: Never smoker Tobacco Use: Non-smoker Alcohol: None Drugs: None Physical Exam Vital Signs Temp Pulse Resp BP 98.2 F 77 16 141/70 H 11/14/18 11:30 11/14/18 11:30 11/14/18 11:30 11/14/18 11:30 General: Alert, Oriented x3, Cooperative HEENT: Atraumatic, TM's Clear Lungs: Clear to auscultation, Normal air movement Cardiovascular: Regular rate, Regular Rhythm Psych/Mental Status: Normal Affect, Appropriate, Alert and oriented to time, place, person, mood and affect Assessment/Plan Active Problems (Last Reviewed 08/13/18 @ 10:19 by Fernando Patterson MD) 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
--- NOTE | 2018-11-14 14:07 | PN.PCM_ITS ---
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 (2) Ulcer of right foot with fat layer exposed Status: Chronic Current Visit: Yes Code(s): L97.512 - Non-pressure chronic ulcer of other part of right foot with fat layer exposed (3) Ulcer of right lower extremity with fat layer exposed Status: Chronic Current Visit: Yes Code(s): L97.912 - Non-pressure chronic ulcer of unspecified part of right lower leg with fat layer exposed (4) Chronic refractory osteomyelitis of right foot Status: Chronic Current Visit: Yes Code(s): M86.671 - Other chronic osteomyelitis,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 (5) Malnutrition Status: Chronic Current Visit: Yes Code(s): E46 - Unspecified protein- calorie malnutrition (6) Delayed wound healing Status: Chronic Current Visit: Yes Code(s): T14.8XXD - Other injury of unspecified body region, subsequent encounter (7) Edema leg Status: Chronic Current Visit: Yes Code(s): R60.0 - Localized edema (8) Paralysis Status: Chronic Current Visit: Yes Code(s): G83.9 - Paralytic syndrome, unspecified Type of Wound Chief Complaint: 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 Ulcer with fat tissue exposed left leg, right leg, right ankle. Ulcer right heel with fat and fascial layer exposed. Previously medically treated osteomyelitis. Paraplegia History of Wound: This 83-year-old male with multiple comorbidities was seen at the wound healing center for pressure ulcers to bilateral lower extremities. He recently had versa jet debridement in the operating room with application of advanced wound care products including amniofill and epicord to the left leg as well as the right leg, ankle, and heel. He also recently completed a vascular surgery evaluation with Dr. De Anda and an Angio without any identifiable intervention noted. He denies fever, chill, nausea, vomiting. He is a paraplegic and presents in a wheelchair. He continues to take Fred supplementation. He did obtain bilateral donut offloading pillows and this helps keep pressure off the sites. He continues hyperbaric oxygen therapy and had recent tubes placed in his ears. He is scheduled to follow-up with his ENT physician later today. He is having difficulty hearing. Progress of Wound: Improving - Physical Exam Vital Signs Temp Pulse Resp BP 98.2 F 77 16 141/70 H 11/14/18 12:31 11/14/18 12:31 11/14/18 12:31 11/14/18 12:31 General: Alert, Oriented x3, Cooperative Extremities: No cyanosis, Capillary Refill Less than 3 Seconds, No Calf Tenderness, Diminished Peripheral Pulses, Edema - Mild bilateral lower extremities, - - Paraplegic bilateral Skin: Ulcer/ Wound - No purulence, erythema, streaking, odor, or acute signs of infection. All ulcer sites have advanced wound care product in place with wound veil and Steri-Strips. The peripheral skin is hairless and atrophic. Wound Measurements and Assessment WC - Nurse 1 - General Ulcer Measurement Start: 10/30/18 08:53 Freq: Status: Active Protocol: Activity Type Activity Date Activity User E-Sign Co-Sign Detail Recorded Client Recorded Date Recorded By Document 11/14/18 11:30 [id number] 11/14/18 11:42 11/14/18 11:30 Wound Center Nurse 1 [Ulcer Assessment] #7 RLat LE -Combined with other wound No -Photo Taken No #5 Posterior LLE -Combined with other wound No -Photo Taken No #3 Right Heel -Combined with other wound No -Photo Taken No #2 Right Lateral Ankle -Combined with other wound No -Photo Taken No [Edema Assessment] -Lower Limb Edema Present Yes -Right Calf (cm) 28.0 -Right Ankle (cm) 21.5 -Left Calf (cm) 31.5 -Left Ankle (cm) 21.7 - Nurse 2 - General Ulcer CM Notes Start: 10/30/18 08:53 Freq: Status: Active Protocol: Activity Type Activity Date Activity User E-Sign Co-Sign Detail Recorded Client Recorded Date Recorded By Document 11/14/18 11:43 [id number] 11/14/18 11:44 11/14/18 11:43 Wound Center Nurse 2 [Procedure/Treatment] #7 RLat LE -Correct Patient No -Correct Side, Site, Position No -Correct Procedure No -Procedure Performed No #5 Posterior LLE -Correct Patient No -Correct Side, Site, Position No -Correct Procedure No -Procedure Performed No #3 Right Heel -Correct Patient No -Correct Side, Site, Position No -Correct Procedure No -Procedure Performed No #2 Right Lateral Ankle -Correct Patient No -Correct Side, Site, Position No -Correct Procedure No -Procedure Performed No [See Physician Procedure note for Specifics] Pain Scale: 0-10 Numeric [Pain] -Is Patient Pain Free? Yes Musculoskeletal: No Tenderness to Palpation of Joints or Extremities Neurological: - - Lack of sensation and motor activity bilateral lower extremities Psych/Mental Status: Normal Affect, Appropriate Debridement Note Post-Debridement Measurements/Treatment WC - Nurse 2 - General Ulcer CM Notes Start: 10/30/18 08:53 Freq: Status: Active Protocol: Activity Type Activity Date Activity User E-Sign Co-Sign Detail Recorded Client Recorded Date Recorded By Document 10/31/18 15:32 TM [id number] 10/31/18 15:38 Document 11/14/18 11:43 [id number] 11/14/18 11:44 10/31/18 11/14/18 15:32 11:43 Wound Center Nurse 2 #7 RLat LE -Time 15:33 -Correct Patient Yes No -Correct Side, Site, Position Yes No -Correct Procedure Yes No -Procedure Performed Yes No -Type of Procedure Debridement -Clinical Debridement Subcutaneous -Post Debridement Size (cm) - Length 8.2 -Post Debridement Size (cm) - Width 1.6 -Post Debridement Size (cm) - Depth 0.3 -Total Square Cm 13.12 -Wound/Ulcer Outcome Not Healed -Ulcer Cleansing Rinsed/ Irrigated with Saline -Foul Odor after Cleansing No -Bioengineered Tissue No -Topical Lidocaine (%) 5 -Bleeding Controlled with Pressure -Offloading No -Treatment Response Procedure Tolerated Well #5 Posterior LLE -Time 15:34 -Correct Patient Yes No -Correct Side, Site, Position Yes No -Correct Procedure Yes No -Procedure Performed Yes No -Type of Procedure Debridement -Clinical Debridement Subcutaneous -Post Debridement Size (cm) - Length 2.3 -Post Debridement Size (cm) - Width 2.1 -Post Debridement Size (cm) - Depth 0.9 -Total Square Cm 4.83 -Wound/Ulcer Outcome Not Healed -Ulcer Cleansing Rinsed/ Irrigated with Saline -Foul Odor after Cleansing No -Bioengineered Tissue No -Topical Lidocaine (%) 5 -Bleeding Controlled with Pressure -Other tunneling @11 ( 1.7cm) -Treatment Response Procedure Tolerated Well #3 Right Heel -Time 15:34 -Correct Patient Yes No -Correct Side, Site, Position Yes No -Correct Procedure Yes No -Procedure Performed Yes No -Type of Procedure Debridement -Clinical Debridement Subcutaneous -Post Debridement Size (cm) - Length 1.6 -Post Debridement Size (cm) - Width 5.3 -Post Debridement Size (cm) - Depth 0.3 -Total Square Cm 8.48 -Wound/Ulcer Outcome Not Healed -Ulcer Cleansing Rinsed/ Irrigated with Saline -Foul Odor after Cleansing No -Bioengineered Tissue No -Topical Lidocaine (%) 5 -Bleeding Controlled with Pressure -Offloading Yes -Type of Offloading Surgical Shoe -Treatment Response Procedure Tolerated Well #2 Right Lateral Ankle -Time 15:34 -Correct Patient Yes No -Correct Side, Site, Position Yes No -Correct Procedure Yes No -Procedure Performed Yes No -Type of Procedure Debridement -Clinical Debridement Subcutaneous -Post Debridement Size (cm) - Length 2.5 -Post Debridement Size (cm) - Width 2.1 -Post Debridement Size (cm) - Depth 0.2 -Total Square Cm 5.25 -Wound/Ulcer Outcome Not Healed -Ulcer Cleansing Rinsed/ Irrigated with Saline -Foul Odor after Cleansing No -Bioengineered Tissue No -Topical Lidocaine (%) 5 -Bleeding Controlled with Pressure -Offloading Yes -Type of Offloading Surgical Shoe -Treatment Response Procedure Tolerated Well Pain Scale: 0-10 Numeric Is Patient Pain Free? Yes Yes No debridement was completed today - Advance wound care product, amnio fill and epi cord, is intact and remains secured with a wound veil and Steri-Strips to bilateral lower extremities and no debridement was performed today. This will be considered next week. Assessment/Plan Active Problems (Last Reviewed 08/13/18 @ 10:19 by Fernando Patterson MD) 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) Other chronic osteomyelitis,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 (Acute) Ulcer of right foot with fat layer exposed (Chronic) Ulcer of left lower extremity with fat layer exposed (Chronic) Malnutrition (Chronic) Delayed wound healing (Chronic) Edema leg (Chronic) Paralysis (Chronic) Ulcer of right lower extremity with fat layer exposed (Chronic) Assessment: Right lateral ankle unstageable pressure ulcer, no cellulitis. Fat layer exposed now. Right lateral leg ulcer, fat layer exposed. refractory osteomyelitis calcaneus, right. Right heel unstageable pressure ulcer, no cellulitis. fat layer exposed now. Left leg ulcer fat layer exposed (lateral). Peripheral vascular disease with rest pain. Other comorbidities. Delayed healing. Malnutrition. Paralysis and gait impairment with wheelchair use Plan: I reviewed and discussed his case today. The advance wound care product remains intact. Debridement and additional application of advanced wound care product in the clinical setting next week is recommended. This is medically necessary to optimize healing. Prior authorization will be obtained for epi cord as well as epi fix. He is amenable to this plan. Today, a secondary dressing was applied with additional Tubigrip for continued edema management. He was advised to keep these clean, dry, and intact until follow-up next week. This will be monitored very closely and there does not appear to be an infection. He had recent noninvasive vascular studies performed which demonstrated noncompressible vessels in which ankle-brachial indices were not calculated. This is consistent with rest pain as well as multisegmental occlusive disease and vessel calcification. He did go for consultation with Dr. De Anda previously who formed an angioplasty to her in which intervention options were not identified. It is noted he does have perfusion opportunities available to the lower extremity on the right side. His labs were updated and discussed in his white blood cell count is 6.0, sedimentation rate 14, and hemoglobin A1c 5.8%. His updated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 x-rays do not demonstrate osseous destruction, periosteal reaction, soft tissue emphysema, acute fracture dislocation, or foreign body. Vessel calcification is seen on plain x-ray consistent with vessel disease. It is noted he completed a 6-week course of IV antibiotics and infectious disease has also been following him closely. He had a previous MRI which demonstrated mild marrow edema to the left calcaneus and lateral ankle consistent with osteomyelitis; the adjacent ulcer site have healed. He also had previous MRI which demonstrated these same findings to right calcaneus with adjacent ongoing delayed healing ulcer; this is the area of concern for refractory osteomyelitis at this time. Due to delayed healing, pain, and continued deep tissue exposure this is consistent with chronic osteomyelitis. I recommend hyperbaric oxygen therapy to optimize healing; this is medically necessary to optimize healing. It is noted his ejection fraction is 65%. The benefits, risks, complications, anticipated healing time and management were discussed in detail again today and he is demonstrated significant improvement throughout the course of his care here at the wound healing center. It is noted he is having an ear complication and is promptly following up with his ENT physician. He is also concerned of the told his care plan is taking on his at home. He was reassured no dressing changes are recommended this upcoming week. We will also communicate with his home health in regards to dressing recommendations and a written manner. I answered all his questions. It is okay to transfer with bilateral surgical shoes. He understands that he is at significant risk for limb loss and our goal at this time is to control any infectious process and establish a clear level of perfusion. To continue with nutritional supplementation, Fred.
--- NOTE | 2018-11-15 12:12 | PCM.HBO.PN ---
History of Present Illness Date of Service: 11/15/18 Presenting Chief Complaint: 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 Ulcer with fat tissue exposed left leg, right leg, right ankle. Ulcer right heel with fat and fascial layer exposed. Previously medically treated osteomyelitis. 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 Progress: Today is his 10th treatment out of planned 30 treatments. Small amount of creamy yellow drainage removed from right external ear canal. Patient tolerated well, no complaints. Tolerance of hyperbaric oxygen therapy: Hyperbaric oxygen therapy was administered as per the facility's protocol. The patient tolerated hyperbaric oxygen therapy well. Upon emergence from the hyperbaric chamber, the patient's vital signs remained stable. Tolerated hyperbaric treatment well. The patient was discharged in good condition. 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) Ulcer of right foot with fat layer exposed (Chronic) Paralysis (Chronic) Non-pressure chronic ulcer of other part of right foot with fat layer exposed (Chronic) Other specified peripheral vascular diseases (Chronic) Unstageable pressure ulcer of left foot (Chronic) Unstageable pressure ulcer of right foot (Chronic) Ulcer of left lower extremity with fat layer exposed (Chronic) Malnutrition (Chronic) Delayed wound healing (Chronic) Edema leg (Chronic) Paralysis (Chronic) Ulcer of right lower extremity with fat layer exposed (Chronic) Osteomyelitis (Chronic) Chronic pain (Chronic) Nocardia infection (Chronic) 2004, right arm and left leg, 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 Allergies/Adverse Reactions: Allergies Cephalosporins Allergy (Intermediate, Verified 11/06/18 08:58) Laryngospasms Penicillins Allergy (Intermediate, Verified 11/06/18 08:58) Rash IVP DYE Allergy (Uncoded 11/06/18 08:58) Rash Home Medications: Ambulatory Orders Medication Instructions Recorded Losartan Potassium [Cozaar] 12.5 mg PO DAILY 01/12/16 Riboflavin (Vitamin B2) [Vitamin 300 mg PO DAILY@1700 11/10/16 B2] Ascorbic Acid [Vitamin C] 500 mg PO TID 07/05/18 Gabapentin [Neurontin] 600 mg PO TID 07/05/18 [place] Carbonate 150 mg PO TID 07/05/18 Furosemide [Lasix] 40 mg PO DAILY 08/11/18 Magnesium 500 mg PO BID 08/11/18 Sennosides/Docusate Sodium 2 each PO DAILY 08/11/18 [Senna-S Laxative Tablet] traZODone [Desyrel] 25 mg PO QHS 08/11/18 Collagenase [Santyl] 1 applic TOPICAL DAILY tube 08/14/18 Mineral Oil/Petrolatum,White 1 applic TOPICAL BID jar 08/14/18 [Eucerin] Atorvastatin Calcium [Lipitor] 40 mg PO QHS 11/06/18 Carvedilol [Coreg (Beta Krissy)] 3.125 mg PO BID 11/06/18 Clopidogrel Bisulfate [Plavix] 75 mg PO DAILY 11/06/18 Cyclobenzaprine [Flexeril] 2.5 mg PO QHS PRN 11/06/18 Duloxetine Hcl [Cymbalta] 60 mg PO DAILY 11/06/18 Isosorbide Mononitrate 10 mg PO QHS 11/06/18 Morphine Sulfate [Morphine Sulfate 15 mg PO BID 11/06/18 ER] Multivitamins,Ther W-Minerals 1 tablet PO DAILY 11/06/18 [Multivitamin With Minerals] Nutritional Supplement [Fred - 1 packet PO BIDCM 11/06/18 ORANGE FLAVOR] Pyridoxine HCl [Vitamin B-6] 100 mg PO DAILY 11/06/18 Smz/Tmp Ds [Bactrim Ds] 1 tablet PO DAILY 11/06/18 Tamsulosin HCl [Flomax] 0.4 mg PO 1700 11/06/18 Maternal Family History: - - , depression Paternal Family History: - - Offspring Family History: - - 2 children, 4 grand children, 1 great grandchild, all in good health Smoking Status: Never smoker Tobacco Use: Non-smoker Alcohol: None Drugs: None Physical Exam Vital Signs Temp Pulse Resp BP 98.2 F 77 16 141/70 H 11/14/18 12:31 11/14/18 12:31 11/14/18 12:31 11/14/18 12:31 General: Alert, Oriented x3, Cooperative, No apparent distress HEENT: Atraumatic, TM's Clear Lungs: Clear to auscultation, Normal air movement Cardiovascular: Regular rate, Regular Rhythm Psych/Mental Status: Normal Affect, Appropriate Assessment/Plan Active Problems (Last Reviewed 08/13/18 @ 10:19 by Fernando Patterson MD) 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
[2018-11-15 12:46] VITALS: BP 137/67; BP 146/72; PULSE 69; PULSE 70; RESP 18; TEMP 36.6; TEMP 36.8
[2018-11-16 11:25] VITALS: BP 134/75; BP 153/79; PULSE 67; PULSE 73; RESP 16; TEMP 36.4; TEMP 36.5
--- NOTE | 2018-11-16 13:20 | PCM.HBO.PN ---
History of Present Illness Date of Service: 11/16/18 Presenting Chief Complaint: 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 Ulcer with fat tissue exposed left leg, right leg, right ankle. Ulcer right heel with fat and fascial layer exposed. Previously medically treated osteomyelitis. 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 Progress: Today is his 11th treatment out of planned 30 treatments. Tolerance of hyperbaric oxygen therapy: Hyperbaric oxygen therapy was administered as per the facility's protocol. The patient tolerated hyperbaric oxygen therapy well. Upon emergence from the hyperbaric chamber, the patient's vital signs remained stable. Tolerated hyperbaric treatment well. The patient was discharged in good condition. 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) Ulcer of right foot with fat layer exposed (Chronic) Paralysis (Chronic) Non-pressure chronic ulcer of other part of right foot with fat layer exposed (Chronic) Other specified peripheral vascular diseases (Chronic) Unstageable pressure ulcer of left foot (Chronic) Unstageable pressure ulcer of right foot (Chronic) Ulcer of left lower extremity with fat layer exposed (Chronic) Malnutrition (Chronic) Delayed wound healing (Chronic) Edema leg (Chronic) Paralysis (Chronic) Ulcer of right lower extremity with fat layer exposed (Chronic) Osteomyelitis (Chronic) Chronic pain (Chronic) Nocardia infection (Chronic) 2004, right arm and left leg, 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 Allergies/Adverse Reactions: Allergies Cephalosporins Allergy (Intermediate, Verified 11/06/18 08:58) Laryngospasms Penicillins Allergy (Intermediate, Verified 11/06/18 08:58) Rash IVP DYE Allergy (Uncoded 11/06/18 08:58) Rash Home Medications: Ambulatory Orders Medication Instructions Recorded Losartan Potassium [Cozaar] 12.5 mg PO DAILY 01/12/16 Riboflavin (Vitamin B2) [Vitamin 300 mg PO DAILY@1700 11/10/16 B2] Ascorbic Acid [Vitamin C] 500 mg PO TID 07/05/18 Gabapentin [Neurontin] 600 mg PO TID 07/05/18 [place] Carbonate 150 mg PO TID 07/05/18 Furosemide [Lasix] 40 mg PO DAILY 08/11/18 Magnesium 500 mg PO BID 08/11/18 Sennosides/Docusate Sodium 2 each PO DAILY 08/11/18 [Senna-S Laxative Tablet] traZODone [Desyrel] 25 mg PO QHS 08/11/18 Collagenase [Santyl] 1 applic TOPICAL DAILY tube 08/14/18 Mineral Oil/Petrolatum,White 1 applic TOPICAL BID jar 08/14/18 [Eucerin] Atorvastatin Calcium [Lipitor] 40 mg PO QHS 11/06/18 Carvedilol [Coreg (Beta Krissy)] 3.125 mg PO BID 11/06/18 Clopidogrel Bisulfate [Plavix] 75 mg PO DAILY 11/06/18 Cyclobenzaprine [Flexeril] 2.5 mg PO QHS PRN 11/06/18 Duloxetine Hcl [Cymbalta] 60 mg PO DAILY 11/06/18 Isosorbide Mononitrate 10 mg PO QHS 11/06/18 Morphine Sulfate [Morphine Sulfate 15 mg PO BID 11/06/18 ER] Multivitamins,Ther W-Minerals 1 tablet PO DAILY 11/06/18 [Multivitamin With Minerals] Nutritional Supplement [Fred - 1 packet PO BIDCM 11/06/18 ORANGE FLAVOR] Pyridoxine HCl [Vitamin B-6] 100 mg PO DAILY 11/06/18 Smz/Tmp Ds [Bactrim Ds] 1 tablet PO DAILY 11/06/18 Tamsulosin HCl [Flomax] 0.4 mg PO 1700 11/06/18 Maternal Family History: - - , depression Paternal Family History: - - Offspring Family History: - - 2 children, 4 grand children, 1 great grandchild, all in good health Smoking Status: Never smoker Tobacco Use: Non-smoker Alcohol: None Drugs: None Physical Exam Vital Signs Temp Pulse Resp BP 97.7 F L 73 16 134/75 H 11/16/18 11:25 11/16/18 11:25 11/16/18 11:25 11/16/18 11:25 General: Alert, Oriented x3, Cooperative, No apparent distress Psych/Mental Status: Normal Affect, Appropriate Assessment/Plan Active Problems (Last Reviewed 08/13/18 @ 10:19 by Fernando Patterson MD) 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
[2018-11-21 11:22] VITALS: BMI 24.3
--- NOTE | 2018-11-21 13:09 | PCM.HBO.PN ---
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 Ulcer with fat tissue exposed left leg, right leg, right ankle. Ulcer right heel with fat and fascial layer exposed. Previously medically treated osteomyelitis. 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 Progress: Today is his 12th treatment out of planned 30 treatments. Tolerance of hyperbaric oxygen therapy: Hyperbaric oxygen therapy was administered as per the facility's protocol. The patient tolerated hyperbaric oxygen therapy well. Upon emergence from the hyperbaric chamber, the patient's vital signs remained stable. Tolerated hyperbaric treatment well. The patient was discharged in good condition. 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) Ulcer of right foot with fat layer exposed (Chronic) Paralysis (Chronic) Non-pressure chronic ulcer of other part of right foot with fat layer exposed (Chronic) Other specified peripheral vascular diseases (Chronic) Unstageable pressure ulcer of left foot (Chronic) Unstageable pressure ulcer of right foot (Chronic) Ulcer of left lower extremity with fat layer exposed (Chronic) Malnutrition (Chronic) Delayed wound healing (Chronic) Edema leg (Chronic) Paralysis (Chronic) Ulcer of right lower extremity with fat layer exposed (Chronic) Osteomyelitis (Chronic) Chronic pain (Chronic) Nocardia infection (Chronic) 2004, right arm and left leg, 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 Allergies/Adverse Reactions: Allergies Cephalosporins Allergy (Intermediate, Verified 11/06/18 08:58) Laryngospasms Penicillins Allergy (Intermediate, Verified 11/06/18 08:58) Rash IVP DYE Allergy (Uncoded 11/06/18 08:58) Rash Home Medications: Ambulatory Orders Medication Instructions Recorded Losartan Potassium [Cozaar] 12.5 mg PO DAILY 01/12/16 Riboflavin (Vitamin B2) [Vitamin 300 mg PO DAILY@1700 11/10/16 B2] Ascorbic Acid [Vitamin C] 500 mg PO TID 07/05/18 Gabapentin [Neurontin] 600 mg PO TID 07/05/18 [place] Carbonate 150 mg PO TID 07/05/18 Furosemide [Lasix] 40 mg PO DAILY 08/11/18 Magnesium 500 mg PO BID 08/11/18 Sennosides/Docusate Sodium 2 each PO DAILY 08/11/18 [Senna-S Laxative Tablet] traZODone [Desyrel] 25 mg PO QHS 08/11/18 Collagenase [Santyl] 1 applic TOPICAL DAILY tube 08/14/18 Mineral Oil/Petrolatum,White 1 applic TOPICAL BID jar 08/14/18 [Eucerin] Atorvastatin Calcium [Lipitor] 40 mg PO QHS 11/06/18 Carvedilol [Coreg (Beta Krissy)] 3.125 mg PO BID 11/06/18 Clopidogrel Bisulfate [Plavix] 75 mg PO DAILY 11/06/18 Cyclobenzaprine [Flexeril] 2.5 mg PO QHS PRN 11/06/18 Duloxetine Hcl [Cymbalta] 60 mg PO DAILY 11/06/18 Isosorbide Mononitrate 10 mg PO QHS 11/06/18 Morphine Sulfate [Morphine Sulfate 15 mg PO BID 11/06/18 ER] Multivitamins,Ther W-Minerals 1 tablet PO DAILY 11/06/18 [Multivitamin With Minerals] Nutritional Supplement [Fred - 1 packet PO BIDCM 11/06/18 ORANGE FLAVOR] Pyridoxine HCl [Vitamin B-6] 100 mg PO DAILY 11/06/18 Smz/Tmp Ds [Bactrim Ds] 1 tablet PO DAILY 11/06/18 Tamsulosin HCl [Flomax] 0.4 mg PO 1700 11/06/18 Maternal Family History: - - , depression Paternal Family History: - - Offspring Family History: - - 2 children, 4 grand children, 1 great grandchild, all in good health Smoking Status: Never smoker Tobacco Use: Non-smoker Alcohol: None Drugs: None Physical Exam Vital Signs Temp Pulse Resp BP 97.7 F L 73 16 134/75 H 11/16/18 11:25 11/16/18 11:25 11/16/18 11:25 11/16/18 11:25 General: Alert, Oriented x3, Cooperative HEENT: Atraumatic, TM's Clear Lungs: Clear to auscultation, Normal air movement Cardiovascular: Regular rate, Regular Rhythm Psych/Mental Status: Normal Affect, Appropriate, Alert and oriented to time, place, person, mood and affect Assessment/Plan Active Problems (Last Reviewed 08/13/18 @ 10:19 by Fernando Patterson MD) 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
[2018-11-21 13:15] VITALS: BP 150/83; BP 152/73; PULSE 60; PULSE 70; RESP 16; RESP 18; TEMP 36.1; TEMP 36.5
--- NOTE | 2018-11-21 13:22 | PN.PCM_ITS ---
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 Comment: previously unstageable pressure ulcer (2) Ulcer of right foot with fat layer exposed Status: Chronic Current Visit: Yes Code(s): L97.512 - Non-pressure chronic ulcer of other part of right foot with fat layer exposed Comment: previously unstageable pressure ulcer (3) Ulcer of right lower extremity with fat layer exposed Status: Chronic Current Visit: Yes Code(s): L97.912 - Non-pressure chronic ulcer of unspecified part of right lower leg with fat layer exposed Comment: previously unstageable pressure ulcer (4) Chronic refractory osteomyelitis of right foot Status: Chronic Current Visit: Yes Code(s): M86.671 - Other chronic osteomyelitis,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 (5) Malnutrition Status: Chronic Current Visit: Yes Code(s): E46 - Unspecified protein- calorie malnutrition (6) Delayed wound healing Status: Chronic Current Visit: Yes Code(s): T14.8XXD - Other injury of unspecified body region, subsequent encounter (7) Edema leg Status: Chronic Current Visit: Yes Code(s): R60.0 - Localized edema (8) Paralysis Status: Chronic Current Visit: Yes Code(s): G83.9 - Paralytic syndrome, unspecified Type of Wound Date of Service: 11/21/18 Chief Complaint: 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 Ulcer with fat tissue exposed left leg, right leg, right ankle. Ulcer right heel with fat and fascial layer exposed. Previously medically treated osteomyelitis. Paraplegia History of Wound: This 83-year-old male with multiple comorbidities was seen at the wound healing center for pressure ulcers to bilateral lower extremities. He recently had versa jet debridement in the operating room with application of advanced wound care products including amniofill and epicord to the left leg as well as the right leg, ankle, and heel. He also recently completed a vascular surgery evaluation with Dr. De Anda and an Angio without any identifiable intervention noted. He denies fever, chill, nausea, vomiting. He is a paraplegic and presents in a wheelchair. He continues to take Fred supplementation. He did obtain bilateral donut offloading pillows and this helps keep pressure off the sites. He continues hyperbaric oxygen therapy. He is with his today. Progress of Wound: Improving - Physical Exam Vital Signs Temp Pulse Resp BP 97.7 F L 73 16 134/75 H 11/16/18 11:25 11/16/18 11:25 11/16/18 11:25 11/16/18 11:25 General: Alert, Oriented x3, Cooperative Extremities: No cyanosis, Capillary Refill Less than 3 Seconds, No Calf Tenderness, Diminished Peripheral Pulses, Edema - Mild bilateral lower extremities, - - Paralysis bilateral lower extremities Skin: Ulcer/ Wound - No purulence, erythema, streaking, odor, or infection bilateral. Advance wound care product has incorporated well to all ulcer sites. There is no undermining, deep probing, necrosis, or eschar bilateral lower extremity. The peripheral skin is hairless and atrophic bilateral lower extremities. There is significant granulation tissue and all the ulcers appear to be more superficial Wound Measurements and Assessment WC - Nurse 1 - General Ulcer Measurement Start: 10/30/18 08:53 Freq: Status: Active Protocol: Activity Type Activity Date Activity User E-Sign Co-Sign Detail Recorded Client Recorded Date Recorded By Document 11/21/18 11:22 [id number] 11/21/18 11:32 11/21/18 11:22 Wound Center Nurse 1 [Edema Assessment] -Lower Limb Edema Present Yes -Right Calf (cm) 28.0 -Right Ankle (cm) 22.0 -Left Calf (cm) 30.0 -Left Ankle (cm) 23.0 WC - Nurse 2 - General Ulcer CM Notes Start: 10/30/18 08:53 Freq: Status: Active Protocol: Activity Type Activity Date Activity User E-Sign Co-Sign Detail Recorded Client Recorded Date Recorded By Document 11/21/18 12:38 [email or web address] [id number] 11/21/18 12:42 11/21/18 12:38 Wound Center Nurse 2 [Procedure/Treatment] #7 RLat LE -Time 12:39 -Correct Patient Yes -Correct Side, Site, Position Yes -Correct Procedure Yes -Procedure Performed Yes -Type of Procedure Debridement -Clinical Debridement Subcutaneous -Post Debridement Size (cm) - Length 6 -Post Debridement Size (cm) - Width 1.5 -Post Debridement Size (cm) - Depth 0.2 -Total Square Cm 9.0 -Wound/Ulcer Outcome Not Healed -Ulcer Cleansing Rinsed/ Irrigated with Saline -Foul Odor after Cleansing No -Bioengineered Tissue No -Bleeding Controlled with Pressure -Offloading No -Treatment Response Procedure Tolerated Well #5 Posterior LLE -Time 12:39 -Correct Patient Yes -Correct Side, Site, Position Yes -Correct Procedure Yes -Procedure Performed Yes -Type of Procedure Debridement -Clinical Debridement Subcutaneous -Post Debridement Size (cm) - Length 1.5 -Post Debridement Size (cm) - Width 2 -Post Debridement Size (cm) - Depth 0.5 -Total Square Cm 3.0 -Wound/Ulcer Outcome Not Healed -Ulcer Cleansing Rinsed/ Irrigated with Saline -Foul Odor after Cleansing No -Bioengineered Tissue Yes -Type of bioengineered Tissue EPIFIX -Expiration Date 06/27/23 -Product Lot Number [id number] -Percent Used 100 -Saline Lot Number [id number] -Bleeding Controlled with Pressure -Offloading No -Treatment Response Procedure Tolerated Well #3 Right Heel -Time 12:40 -Correct Patient Yes -Correct Side, Site, Position Yes -Correct Procedure Yes -Procedure Performed Yes -Type of Procedure Debridement -Clinical Debridement Subcutaneous -Post Debridement Size (cm) - Length 2.2 -Post Debridement Size (cm) - Width 4.8 -Post Debridement Size (cm) - Depth 0.2 -Total Square Cm 10.56 -Wound/Ulcer Outcome Not Healed -Ulcer Cleansing Rinsed/ Irrigated with Saline -Foul Odor after Cleansing No -Bioengineered Tissue Yes -Type of bioengineered Tissue EPIFIX -Expiration Date 06/27/23 -Product Lot Number [id number] -Percent Used 100 -Saline Lot Number [id number] -Bleeding Controlled with Pressure -Offloading No -Treatment Response Procedure Tolerated Well #2 Right Lateral Ankle -Time 12:41 -Correct Patient Yes -Correct Side, Site, Position Yes -Correct Procedure Yes -Procedure Performed Yes -Type of Procedure Debridement -Clinical Debridement Subcutaneous -Post Debridement Size (cm) - Length 2.4 -Post Debridement Size (cm) - Width 2.0 -Post Debridement Size (cm) - Depth 0.2 -Total Square Cm 4.80 -Wound/Ulcer Outcome Not Healed -Ulcer Cleansing Rinsed/ Irrigated with Saline -Foul Odor after Cleansing No -Bioengineered Tissue Yes -Type of bioengineered Tissue EPIFIX -Expiration Date 06/27/23 -Product Lot Number [id number] -Percent Used 100 -Saline Lot Number [id number] -Bleeding Controlled with Pressure -Offloading No -Treatment Response Procedure Tolerated Well [See Physician Procedure note for Specifics] Pain Scale: 0-10 Numeric [Pain] -Is Patient Pain Free? Yes Musculoskeletal: No Tenderness to Palpation of Joints or Extremities, Muscle Wasting Neurological: - - Lack of epicritic sensation light touch bilateral lower remedies Psych/Mental Status: Normal Affect, Appropriate Debridement Note Post-Debridement Measurements/Treatment WC - Nurse 2 - General Ulcer CM Notes Start: 10/30/18 08:53 Freq: Status: Active Protocol: Activity Type Activity Date Activity User E-Sign Co-Sign Detail Recorded Client Recorded Date Recorded By Document 10/31/18 15:32 [id number] 10/31/18 15:38 Document 11/14/18 11:43 [id number] 11/14/18 11:44 Document 11/21/18 12:38 [id number] 11/21/18 12:42 10/31/18 11/14/18 11/21/18 15:32 11:43 12:38 Wound Center Nurse 2 #7 RLat LE -Time 15:33 12:39 -Correct Patient Yes No Yes -Correct Side, Site, Position Yes No Yes -Correct Procedure Yes No Yes -Procedure Performed Yes No Yes -Type of Procedure Debridement Debridement -Clinical Debridement Subcutaneous Subcutaneous -Post Debridement Size (cm) - Length 8.2 6 -Post Debridement Size (cm) - Width 1.6 1.5 -Post Debridement Size (cm) - Depth 0.3 0.2 -Total Square Cm 13.12 9.0 -Wound/Ulcer Outcome Not Healed Not Healed -Ulcer Cleansing Rinsed/ Rinsed/ Irrigated with Irrigated with Saline Saline -Foul Odor after Cleansing No No -Bioengineered Tissue No No -Topical Lidocaine (%) 5 -Bleeding Controlled with Pressure Pressure -Offloading No No -Treatment Response Procedure Procedure Tolerated Well Tolerated Well #5 Posterior LLE -Time 15:34 12:39 -Correct Patient Yes No Yes -Correct Side, Site, Position Yes No Yes -Correct Procedure Yes No Yes -Procedure Performed Yes No Yes -Type of Procedure Debridement Debridement -Clinical Debridement Subcutaneous Subcutaneous -Post Debridement Size (cm) - Length 2.3 1.5 -Post Debridement Size (cm) - Width 2.1 2 -Post Debridement Size (cm) - Depth 0.9 0.5 -Total Square Cm 4.83 3.0 -Wound/Ulcer Outcome Not Healed Not Healed -Ulcer Cleansing Rinsed/ Rinsed/ Irrigated with Irrigated with Saline Saline -Foul Odor after Cleansing No No -Bioengineered Tissue No Yes -Type of bioengineered Tissue EPIFIX -Expiration Date 06/27/23 -Product Lot Number [id number] -Percent Used 100 -Saline Lot Number [id number] -Topical Lidocaine (%) 5 -Bleeding Controlled with Pressure Pressure -Other tunneling @11 ( 1.7cm) -Offloading No -Treatment Response Procedure Procedure Tolerated Well Tolerated Well #3 Right Heel -Time 15:34 12:40 -Correct Patient Yes No Yes -Correct Side, Site, Position Yes No Yes -Correct Procedure Yes No Yes -Procedure Performed Yes No Yes -Type of Procedure Debridement Debridement -Clinical Debridement Subcutaneous Subcutaneous -Post Debridement Size (cm) - Length 1.6 2.2 -Post Debridement Size (cm) - Width 5.3 4.8 -Post Debridement Size (cm) - Depth 0.3 0.2 -Total Square Cm 8.48 10.56 -Wound/Ulcer Outcome Not Healed Not Healed -Ulcer Cleansing Rinsed/ Rinsed/ Irrigated with Irrigated with Saline Saline -Foul Odor after Cleansing No No -Bioengineered Tissue No Yes -Type of bioengineered Tissue EPIFIX -Expiration Date 06/27/23 -Product Lot Number [id number] -Percent Used 100 -Saline Lot Number [id number] -Topical Lidocaine (%) 5 -Bleeding Controlled with Pressure Pressure -Offloading Yes No -Type of Offloading Surgical Shoe -Treatment Response Procedure Procedure Tolerated Well Tolerated Well #2 Right Lateral Ankle -Time 15:34 12:41 -Correct Patient Yes No Yes -Correct Side, Site, Position Yes No Yes -Correct Procedure Yes No Yes -Procedure Performed Yes No Yes -Type of Procedure Debridement Debridement -Clinical Debridement Subcutaneous Subcutaneous -Post Debridement Size (cm) - Length 2.5 2.4 -Post Debridement Size (cm) - Width 2.1 2.0 -Post Debridement Size (cm) - Depth 0.2 0.2 -Total Square Cm 5.25 4.80 -Wound/Ulcer Outcome Not Healed Not Healed -Ulcer Cleansing Rinsed/ Rinsed/ Irrigated with Irrigated with Saline Saline -Foul Odor after Cleansing No No -Bioengineered Tissue No Yes -Type of bioengineered Tissue EPIFIX -Expiration Date 06/27/23 -Product Lot Number [id number] -Percent Used 100 -Saline Lot Number [id number] -Topical Lidocaine (%) 5 -Bleeding Controlled with Pressure Pressure -Offloading Yes No -Type of Offloading Surgical Shoe -Treatment Response Procedure Procedure Tolerated Well Tolerated Well Pain Scale: 0-10 Numeric Is Patient Pain Free? Yes Yes Yes Wound debrided: leg Laterality: Left Type of Debridement: Excisional debridement Anesthesia Used: 5% Lidocaine Gel Depth: in the subcutaneous layer Percentage of wound debrided: 100 Instrument Used: #15 blade Tissue Removed: fibrous, devitalized subcutaneous, biofilm, slough Severity: Fat Layer Exposed Amount of bleeding with debridement: Mild Bleeding Controlled with: Pressure Patient tolerated procedure well - Additional Wound Wound debrided: heel Laterality: Right Type of Debridement: Excisional debridement Anesthesia Used: 5% Lidocaine Gel Depth: in the subcutaneous layer Percentage of wound debrided: 100 Instrument Used: #15 blade Tissue Removed: fibrous, devitalized subcutaneous, biofilm, slough Severity: Fat Layer Exposed Amount of bleeding with debridement: Mild Bleeding Controlled with: Pressure Patient tolerated procedure: Patient tolerated procedure well - Additional Wound Wound debrided: ankle lateral Laterality: Right Type of Debridement: Excisional debridement Anesthesia Used: 5% Lidocaine Gel Depth: in the subcutaneous layer Percentage of wound debrided: 100 Instrument Used: #15 blade Tissue Removed: fibrous, devitalized subcutaneous, biofilm, slough Severity: Fat Layer Exposed Amount of bleeding with debridement: Mild Bleeding Controlled with: Pressure Patient tolerated procedure: Patient tolerated procedure well - Additional Wound Wound debrided: lateral leg Laterality: Right Type of Debridement: Excisional debridement Anesthesia Used: 5% Lidocaine Gel Depth: in the subcutaneous layer Percentage of wound debrided: 100 Instrument Used: #15 blade Tissue Removed: fibrous, devitalized subcutaneous, biofilm, slough Severity: Fat Layer Exposed Amount of bleeding with debridement: Mild Bleeding Controlled with: Pressure Patient tolerated procedure: Patient tolerated procedure well Assessment/Plan Active Problems (Last Reviewed 08/13/18 @ 10:19 by Fernando Patterson MD) 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 Fat layer exposed now. Right lateral leg ulcer, fat layer exposed. refractory osteomyelitis calcaneus, right. Right heel unstageable pressure ulcer, no cellulitis. fat layer exposed now. Left leg ulcer fat layer exposed (lateral). Peripheral vascular disease with rest pain. Other comorbidities. Delayed healing. Malnutrition. Paralysis and gait impairment with wheelchair use Plan: I reviewed and discussed his case today. The advance wound care product remains intact. Debridement and a subcutaneous excisional manner was performed bilateral lower extremity is as noted in the clinical panel. Sutures were removed that previously held epi cord in place. Advanced wound care product, epi fix was applied to the right ankle, right heel, and left leg. This was secured in place with a wound veil and Steri-Strips. Verbal consent was obtained prior to applying this. He tolerated this well. Juani was applied to the right lateral leg ulcer sites. He was advised to keep this dressing clean, dry, and intact until follow-up next week. His home health will be contacted with this plan. This is medically necessary to optimize healing. Today, a secondary dressing was applied with additional Tubigrip for continued edema management. He was advised to keep these clean, dry, and intact until follow-up next week. This will be monitored very closely and there does not appear to be an infection. He had recent noninvasive vascular studies performed which demonstrated noncompressible vessels in which ankle-brachial indices were not calculated. This is consistent with rest pain as well as multisegmental occlusive disease and vessel calcification. He did go for consultation with Dr. De Anda previously who formed an angioplasty to her in which intervention options were not identified. It is noted he does have perfusion opportunities available to the lower extremity on the right side. His labs were updated and discussed in his white blood cell count is 6.0, sedimentation rate 14, and hemoglobin A1c 5.8%. His updated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 x-rays do not demonstrate osseous destruction, periosteal reaction, soft tissue emphysema, acute fracture dislocation, or foreign body. Vessel calcification is seen on plain x-ray consistent with vessel disease. It is noted he completed a 6-week course of IV antibiotics and infectious disease has also been following him closely. He had a previous MRI which demonstrated mild marrow edema to the left calcaneus and lateral ankle consistent with osteomyelitis; the adjacent ulcer site have healed. He also had previous MRI which demonstrated these same findings to right calcaneus with adjacent ongoing delayed healing ulcer; this is the area of concern for refractory osteomyelitis at this time. Due to delayed healing, pain, and continued deep tissue exposure this is consistent with chronic osteomyelitis. I recommend hyperbaric oxygen therapy to optimize healing; this is medically necessary to optimize healing. It is noted his ejection fraction is 65%. The benefits, risks, complications, anticipated healing time and management were discussed in detail again today and he is demonstrated significant improvement throughout the course of his care here at the wound healing center. I answered all his questions. He understands that he is at significant risk for limb loss and our goal at this time is to control any infectious process and establish a clear level of perfusion. To continue with nutritional supplementation, Fred. To return to clinic in 1 week for physician reevaluation or call sooner if he has any questions or concerns.
[2018-11-22 13:04] VITALS: BP 149/76; BP 153/76; PULSE 65; PULSE 71; RESP 16; TEMP 36.4; TEMP 36.5
--- NOTE | 2018-11-22 13:17 | PCM.HBO.PN ---
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 Ulcer with fat tissue exposed left leg, right leg, right ankle. Ulcer right heel with fat and fascial layer exposed. Previously medically treated osteomyelitis. 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 Progress: Today is his 13th treatment out of planned 30 treatments. Tolerance of hyperbaric oxygen therapy: Hyperbaric oxygen therapy was administered as per the facility's protocol. The patient tolerated hyperbaric oxygen therapy well. Upon emergence from the hyperbaric chamber, the patient's vital signs remained stable. Tolerated hyperbaric treatment well. The patient was discharged in good condition. 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) Ulcer of right foot with fat layer exposed (Chronic) previously unstageable pressure ulcer Paralysis (Chronic) Non-pressure chronic ulcer of other part of right foot with fat layer exposed (Chronic) Other specified peripheral vascular diseases (Chronic) Unstageable pressure ulcer of left foot (Chronic) Unstageable pressure ulcer of right foot (Chronic) Ulcer of left lower extremity with fat layer exposed (Chronic) previously unstageable pressure ulcer Malnutrition (Chronic) Delayed wound healing (Chronic) Edema leg (Chronic) Paralysis (Chronic) Ulcer of right lower extremity with fat layer exposed (Chronic) previously unstageable pressure ulcer Osteomyelitis (Chronic) Chronic pain (Chronic) Nocardia infection (Chronic) 2004, right arm and left leg, 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 Allergies/Adverse Reactions: Allergies Cephalosporins Allergy (Intermediate, Verified 11/06/18 08:58) Laryngospasms Penicillins Allergy (Intermediate, Verified 11/06/18 08:58) Rash IVP DYE Allergy (Uncoded 11/06/18 08:58) Rash Home Medications: Ambulatory Orders Medication Instructions Recorded Losartan Potassium [Cozaar] 12.5 mg PO DAILY 01/12/16 Riboflavin (Vitamin B2) [Vitamin 300 mg PO DAILY@1700 11/10/16 B2] Ascorbic Acid [Vitamin C] 500 mg PO TID 07/05/18 Gabapentin [Neurontin] 600 mg PO TID 07/05/18 [place] Carbonate 150 mg PO TID 07/05/18 Furosemide [Lasix] 40 mg PO DAILY 08/11/18 Magnesium 500 mg PO BID 08/11/18 Sennosides/Docusate Sodium 2 each PO DAILY 08/11/18 [Senna-S Laxative Tablet] traZODone [Desyrel] 25 mg PO QHS 08/11/18 Collagenase [Santyl] 1 applic TOPICAL DAILY tube 08/14/18 Mineral Oil/Petrolatum,White 1 applic TOPICAL BID jar 08/14/18 [Eucerin] Atorvastatin Calcium [Lipitor] 40 mg PO QHS 11/06/18 Carvedilol [Coreg (Beta Krissy)] 3.125 mg PO BID 11/06/18 Clopidogrel Bisulfate [Plavix] 75 mg PO DAILY 11/06/18 Cyclobenzaprine [Flexeril] 2.5 mg PO QHS PRN 11/06/18 Duloxetine Hcl [Cymbalta] 60 mg PO DAILY 11/06/18 Isosorbide Mononitrate 10 mg PO QHS 11/06/18 Morphine Sulfate [Morphine Sulfate 15 mg PO BID 11/06/18 ER] Multivitamins,Ther W-Minerals 1 tablet PO DAILY 11/06/18 [Multivitamin With Minerals] Nutritional Supplement [Fred - 1 packet PO BIDCM 11/06/18 [place] FLAVOR] Pyridoxine HCl [Vitamin B-6] 100 mg PO DAILY 11/06/18 Smz/Tmp Ds [Bactrim Ds] 1 tablet PO DAILY 11/06/18 Tamsulosin HCl [Flomax] 0.4 mg PO 1700 11/06/18 Maternal Family History: - - , depression Paternal Family History: - - Offspring Family History: - - 2 children, 4 grand children, 1 great grandchild, all in good health Smoking Status: Never smoker Tobacco Use: Non-smoker Alcohol: None Drugs: None Physical Exam Vital Signs Temp Pulse Resp BP 97.7 F L 60 16 152/73 H 11/21/18 13:15 11/21/18 13:15 11/21/18 13:15 11/21/18 13:15 General: Alert, Oriented x3, Cooperative, No apparent distress HEENT: Atraumatic, TM's Clear Lungs: Clear to auscultation, Normal air movement Cardiovascular: Regular rate, Regular Rhythm Psych/Mental Status: Normal Affect, Appropriate, Alert and oriented to time, place, person, mood and affect Assessment/Plan Active Problems (Last Reviewed 08/13/18 @ 10:19 by Fernando Patterson MD) 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
[2018-11-23 11:06] VITALS: BP 137/75; BP 145/86; PULSE 68; PULSE 71; RESP 18; TEMP 36.4; TEMP 36.9
--- NOTE | 2018-11-23 12:00 | PCM.HBO.PN ---
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 Ulcer with fat tissue exposed left leg, right leg, right ankle. Ulcer right heel with fat and fascial layer exposed. Previously medically treated osteomyelitis. 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 Progress: Today is his 13th treatment out of planned 30 treatments. Tolerance of hyperbaric oxygen therapy: Hyperbaric oxygen therapy was administered as per the facility's protocol. The patient tolerated hyperbaric oxygen therapy well. Upon emergence from the hyperbaric chamber, the patient's vital signs remained stable. Tolerated hyperbaric treatment well. The patient was discharged in good condition. 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) Ulcer of right foot with fat layer exposed (Chronic) previously unstageable pressure ulcer Paralysis (Chronic) Non-pressure chronic ulcer of other part of right foot with fat layer exposed (Chronic) Other specified peripheral vascular diseases (Chronic) Unstageable pressure ulcer of left foot (Chronic) Unstageable pressure ulcer of right foot (Chronic) Ulcer of left lower extremity with fat layer exposed (Chronic) previously unstageable pressure ulcer Malnutrition (Chronic) Delayed wound healing (Chronic) Edema leg (Chronic) Paralysis (Chronic) Ulcer of right lower extremity with fat layer exposed (Chronic) previously unstageable pressure ulcer Osteomyelitis (Chronic) Chronic pain (Chronic) Nocardia infection (Chronic) 2004, right arm and left leg, 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 Allergies/Adverse Reactions: Allergies Cephalosporins Allergy (Intermediate, Verified 11/06/18 08:58) Laryngospasms Penicillins Allergy (Intermediate, Verified 11/06/18 08:58) Rash IVP DYE Allergy (Uncoded 11/06/18 08:58) Rash Home Medications: Ambulatory Orders Medication Instructions Recorded Losartan Potassium [Cozaar] 12.5 mg PO DAILY 01/12/16 Riboflavin (Vitamin B2) [Vitamin 300 mg PO DAILY@1700 11/10/16 B2] Ascorbic Acid [Vitamin C] 500 mg PO TID 07/05/18 Gabapentin [Neurontin] 600 mg PO TID 07/05/18 [place] Carbonate 150 mg PO TID 07/05/18 Furosemide [Lasix] 40 mg PO DAILY 08/11/18 Magnesium 500 mg PO BID 08/11/18 Sennosides/Docusate Sodium 2 each PO DAILY 08/11/18 [Senna-S Laxative Tablet] traZODone [Desyrel] 25 mg PO QHS 08/11/18 Collagenase [Santyl] 1 applic TOPICAL DAILY tube 08/14/18 Mineral Oil/Petrolatum,White 1 applic TOPICAL BID jar 08/14/18 [Eucerin] Atorvastatin Calcium [Lipitor] 40 mg PO QHS 11/06/18 Carvedilol [Coreg (Beta Krissy)] 3.125 mg PO BID 11/06/18 Clopidogrel Bisulfate [Plavix] 75 mg PO DAILY 11/06/18 Cyclobenzaprine [Flexeril] 2.5 mg PO QHS PRN 11/06/18 Duloxetine Hcl [Cymbalta] 60 mg PO DAILY 11/06/18 Isosorbide Mononitrate 10 mg PO QHS 11/06/18 Morphine Sulfate [Morphine Sulfate 15 mg PO BID 11/06/18 ER] Multivitamins,Ther W-Minerals 1 tablet PO DAILY 11/06/18 [Multivitamin With Minerals] Nutritional Supplement [Fred - 1 packet PO BIDCM 11/06/18 [place] FLAVOR] Pyridoxine HCl [Vitamin B-6] 100 mg PO DAILY 11/06/18 Smz/Tmp Ds [Bactrim Ds] 1 tablet PO DAILY 11/06/18 Tamsulosin HCl [Flomax] 0.4 mg PO 1700 11/06/18 Maternal Family History: - - , depression Paternal Family History: - - Offspring Family History: - - 2 children, 4 grand children, 1 great grandchild, all in good health Smoking Status: Never smoker Tobacco Use: Non-smoker Alcohol: None Drugs: None Physical Exam Vital Signs Temp Pulse Resp BP 97.5 F L 71 18 137/75 H 11/23/18 11:06 11/23/18 11:06 11/23/18 11:06 11/23/18 11:06 Assessment/Plan Active Problems (Last Reviewed 08/13/18 @ 10:19 by Fernando Patterson MD) 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
[2018-11-26 15:00] VITALS: BP 131/68; BP 146/70; PULSE 65; PULSE 68; RESP 16; TEMP 36.6; TEMP 36.7
--- NOTE | 2018-11-26 17:08 | HBO.PN.PCM_ITS ---
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 Ulcer with fat tissue exposed left leg, right leg, right ankle. Ulcer right heel with fat and fascial layer exposed. Previously medically treated osteomyelitis. 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 Progress: Today is his 15th treatment out of planned 30 treatments. Tolerance of hyperbaric oxygen therapy: Hyperbaric oxygen therapy was administered as per the facility's protocol. The patient tolerated hyperbaric oxygen therapy well. Upon emergence from the hyperbaric chamber, the patient's vital signs remained stable. Tolerated hyperbaric treatment well. The patient was discharged in good condition. 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) Ulcer of right foot with fat layer exposed (Chronic) previously unstageable pressure ulcer Paralysis (Chronic) Non-pressure chronic ulcer of other part of right foot with fat layer exposed (Chronic) Other specified peripheral vascular diseases (Chronic) Unstageable pressure ulcer of left foot (Chronic) Unstageable pressure ulcer of right foot (Chronic) Ulcer of left lower extremity with fat layer exposed (Chronic) previously unstageable pressure ulcer Malnutrition (Chronic) Delayed wound healing (Chronic) Edema leg (Chronic) Paralysis (Chronic) Ulcer of right lower extremity with fat layer exposed (Chronic) previously unstageable pressure ulcer Osteomyelitis (Chronic) Chronic pain (Chronic) Nocardia infection (Chronic) 2004, right arm and left leg, 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 Allergies/Adverse Reactions: Allergies Cephalosporins Allergy (Intermediate, Verified 11/06/18 08:58) Laryngospasms Penicillins Allergy (Intermediate, Verified 11/06/18 08:58) Rash IVP DYE Allergy (Uncoded 11/06/18 08:58) Rash Home Medications: Ambulatory Orders Medication Instructions Recorded Losartan Potassium [Cozaar] 12.5 mg PO DAILY 01/12/16 Riboflavin (Vitamin B2) [Vitamin 300 mg PO DAILY@1700 11/10/16 B2] Ascorbic Acid [Vitamin C] 500 mg PO TID 07/05/18 Gabapentin [Neurontin] 600 mg PO TID 07/05/18 [place] Carbonate 150 mg PO TID 07/05/18 Furosemide [Lasix] 40 mg PO DAILY 08/11/18 Magnesium 500 mg PO BID 08/11/18 Sennosides/Docusate Sodium 2 each PO DAILY 08/11/18 [Senna-S Laxative Tablet] traZODone [Desyrel] 25 mg PO QHS 08/11/18 Collagenase [Santyl] 1 applic TOPICAL DAILY tube 08/14/18 Mineral Oil/Petrolatum,White 1 applic TOPICAL BID jar 08/14/18 [Eucerin] Atorvastatin Calcium [Lipitor] 40 mg PO QHS 11/06/18 Carvedilol [Coreg (Beta Krissy)] 3.125 mg PO BID 11/06/18 Clopidogrel Bisulfate [Plavix] 75 mg PO DAILY 11/06/18 Cyclobenzaprine [Flexeril] 2.5 mg PO QHS PRN 11/06/18 Duloxetine Hcl [Cymbalta] 60 mg PO DAILY 11/06/18 Isosorbide Mononitrate 10 mg PO QHS 11/06/18 Morphine Sulfate [Morphine Sulfate 15 mg PO BID 11/06/18 ER] Multivitamins,Ther W-Minerals 1 tablet PO DAILY 11/06/18 [Multivitamin With Minerals] Nutritional Supplement [Fred - 1 packet PO BIDCM 11/06/18 [place]LAVOR] Pyridoxine HCl [Vitamin B-6] 100 mg PO DAILY 11/06/18 Smz/Tmp Ds [Bactrim Ds] 1 tablet PO DAILY 11/06/18 Tamsulosin HCl [Flomax] 0.4 mg PO 1700 11/06/18 Maternal Family History: - - , depression Paternal Family History: - - Offspring Family History: - - 2 children, 4 grand children, 1 great grandchild, all in good health Smoking Status: Never smoker Tobacco Use: Non-smoker Alcohol: None Drugs: None Physical Exam Vital Signs Temp Pulse Resp BP 97.8 F 68 16 131/68 H 11/26/18 15:00 11/26/18 15:00 11/26/18 15:00 11/26/18 15:00 General: Alert, Oriented x3, Cooperative, No apparent distress, Well developed, Well nourished HEENT: Atraumatic, PERRLA, EOMI, Normocephalic Lungs: Normal air movement Psych/Mental Status: Normal Affect, Appropriate, Alert and oriented to time, place, person, mood and affect Assessment/Plan Active Problems (Last Reviewed 08/13/18 @ 10:19 by Fernando Patterson MD) 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
== END 2018-11-26 23:59 ==
LOC: WC 12:00
PROVIDERS: Family Provider Family Medicine; PCP Family Medicine; Referring Provider Podiatrist; Visit Provider Podiatrist
DX: I73.89 Other specified peripheral vascular diseases (principal); L97.822 Non-pressure chronic ulcer of other part of left lower leg with fat layer exposed; L97.312 Non-pressure chronic ulcer of right ankle with fat layer exposed; L97.422 Non-pressure chronic ulcer of left heel and midfoot with fat layer exposed; L97.412 Non-pressure chronic ulcer of right heel and midfoot with fat layer exposed; L97.522 Non-pressure chronic ulcer of other part of left foot with fat layer exposed; G82.20 Paraplegia, unspecified; R60.0 Localized edema; M86.671 Other chronic osteomyelitis,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
CPT/HCPCS: 11042; 11045; 15271; 15275; 97602; 99183; 99214; Q4131; G0277; G0463

== ENCOUNTER 2018-12-26 10:15 | Outpatient (RCR) | payer MEDICARE, OTHER, SELFPAY ==
[2018-11-21 11:22] VITALS: BMI 24.3
[2018-11-27 00:58] VITALS: BP 131/68; PULSE 68; RESP 16; TEMP 36.6
[2018-11-28 11:09] VITALS: BP 138/76; PULSE 77; RESP 16; TEMP 36; BMI 24.3
[2018-11-28 12:52] VITALS: BP 138/76; BP 141/71; PULSE 66; PULSE 77; RESP 16; TEMP 36; TEMP 36.7
--- NOTE | 2018-11-28 13:03 | PCM.HBO.PN ---
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 Ulcer with fat tissue exposed left leg, right leg, right ankle. Ulcer right heel with fat and fascial layer exposed. Previously medically treated osteomyelitis. 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 Progress: The patient appears to be tolerating hyperbaric oxygen therapy well. Today's a session represents the 16th such session of hyperbaric oxygen therapy. Tolerance of hyperbaric oxygen therapy: Hyperbaric oxygen therapy was administered as per the facility's protocol. The patient tolerated hyperbaric oxygen therapy well, without complaints or complications. Upon emergence from the hyperbaric chamber, the patient's vital signs remained stable. He was discharged in good condition. 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) Ulcer of right foot with fat layer exposed (Chronic) previously unstageable pressure ulcer Paralysis (Chronic) Non-pressure chronic ulcer of other part of right foot with fat layer exposed (Chronic) Other specified peripheral vascular diseases (Chronic) Unstageable pressure ulcer of left foot (Chronic) Unstageable pressure ulcer of right foot (Chronic) Ulcer of left lower extremity with fat layer exposed (Chronic) previously unstageable pressure ulcer Malnutrition (Chronic) Delayed wound healing (Chronic) Edema leg (Chronic) Paralysis (Chronic) Ulcer of right lower extremity with fat layer exposed (Chronic) previously unstageable pressure ulcer Osteomyelitis (Chronic) Chronic pain (Chronic) Nocardia infection (Chronic) 2004, right arm and left leg, 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 Allergies/Adverse Reactions: Allergies Cephalosporins Allergy (Intermediate, Verified 11/06/18 08:58) Laryngospasms Penicillins Allergy (Intermediate, Verified 11/06/18 08:58) Rash IVP DYE Allergy (Uncoded 11/06/18 08:58) Rash Home Medications: Ambulatory Orders Medication Instructions Recorded Losartan Potassium [Cozaar] 12.5 mg PO DAILY 01/12/16 Riboflavin (Vitamin B2) [Vitamin 300 mg PO DAILY@1700 11/10/16 B2] Ascorbic Acid [Vitamin C] 500 mg PO TID 07/05/18 Gabapentin [Neurontin] 600 mg PO TID 07/05/18 [place] Carbonate 150 mg PO TID 07/05/18 Furosemide [Lasix] 40 mg PO DAILY 08/11/18 Magnesium 500 mg PO BID 08/11/18 Sennosides/Docusate Sodium 2 each PO DAILY 08/11/18 [Senna-S Laxative Tablet] traZODone [Desyrel] 25 mg PO QHS 08/11/18 Collagenase [Santyl] 1 applic TOPICAL DAILY tube 08/14/18 Mineral Oil/Petrolatum,White 1 applic TOPICAL BID jar 08/14/18 [Eucerin] Atorvastatin Calcium [Lipitor] 40 mg PO QHS 11/06/18 Carvedilol [Coreg (Beta Krissy)] 3.125 mg PO BID 11/06/18 Clopidogrel Bisulfate [Plavix] 75 mg PO DAILY 11/06/18 Cyclobenzaprine [Flexeril] 2.5 mg PO QHS PRN 11/06/18 Duloxetine Hcl [Cymbalta] 60 mg PO DAILY 11/06/18 Isosorbide Mononitrate 10 mg PO QHS 11/06/18 Morphine Sulfate [Morphine Sulfate 15 mg PO BID 11/06/18 ER] Multivitamins,Ther W-Minerals 1 tablet PO DAILY 11/06/18 [Multivitamin With Minerals] Nutritional Supplement [Fred - 1 packet PO BIDCM 11/06/18 [place] FLAVOR] Pyridoxine HCl [Vitamin B-6] 100 mg PO DAILY 11/06/18 Smz/Tmp Ds [Bactrim Ds] 1 tablet PO DAILY 11/06/18 Tamsulosin HCl [Flomax] 0.4 mg PO 1700 11/06/18 Maternal Family History: - - , depression Paternal Family History: - - Offspring Family History: - - 2 children, 4 grand children, 1 great grandchild, all in good health Smoking Status: Never smoker Tobacco Use: Non-smoker Physical Exam Vital Signs Temp Pulse Resp BP 96.8 F L 77 16 138/76 H 11/28/18 12:52 11/28/18 12:52 11/28/18 12:52 11/28/18 12:52 General: Alert, Oriented x3, Cooperative HEENT: Atraumatic, TM's Clear Lungs: Clear to auscultation, Normal air movement Cardiovascular: Regular rate, Regular Rhythm, Murmur Psych/Mental Status: Normal Affect, Appropriate, Alert and oriented to time, place, person, mood and affect Assessment/Plan The patient appears to be tolerating hyperbaric oxygen therapy well, which will be continued as per the patient's medical plan.
--- NOTE | 2018-11-28 13:21 | PN.PCM_ITS ---
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 Current Visit: Yes Code(s): L97.922 - Non-pressure chronic ulcer of unspecified part of left lower leg with fat layer exposed (2) Ulcer of right lower extremity with fat layer exposed Status: Chronic Current Visit: Yes Code(s): L97.912 - Non-pressure chronic ulcer of unspecified part of right lower leg with fat layer exposed (3) Chronic refractory osteomyelitis of right foot Status: Chronic Current Visit: Yes Code(s): M86.671 - Other chronic osteomyelitis,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 (4) Ulcer of right foot with fat layer exposed Status: Chronic Current Visit: Yes Code(s): L97.512 - Non-pressure chronic ulcer of other part of right foot with fat layer exposed Comment: previously unstageable pressure ulcer (5) Paralysis Status: Chronic Current Visit: Yes Code(s): G83.9 - Paralytic syndrome, un specified (6) Malnutrition Status: Chronic Current Visit: Yes Code(s): E46 - Unspecified protein-calorie malnutrition (7) Delayed wound healing Status: Chronic Current Visit: Yes Code(s): T14.8XXD - Other injury of unspecified body region, subsequent encounter (8) Edema leg Status: Chronic Current Visit: Yes Code(s): R60.0 - Localized edema (9) Hypergranulation Status: Acute Current Visit: Yes Code(s): L92.9 - Granulomatous disorder of the skin and subcutaneous tissue, unspecified Type of Wound Date of Service: 11/28/18 Chief Complaint: 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 Ulcer with fat tissue exposed left leg, right leg, right ankle. Ulcer right heel with fat and fascial layer exposed. Previously medically treated osteomyelitis. Paraplegia History of Wound: This 83-year-old male with multiple comorbidities was seen at the wound healing center for pressure ulcers to bilateral lower extremities. He recently had versa jet debridement in the operating room with application of advanced wound care products including amniofill and epicord to the left leg as well as the right leg, ankle, and heel. He also recently completed a vascular surgery evaluation with Dr. De Anda and an Angio without any identifiable intervention noted. He denies fever, chill, nausea, vomiting. He is a paraplegic and presents in a wheelchair. He continues to take Fred supplementation. He did obtain bilateral donut offloading pillows and this helps keep pressure off the sites. He continues hyperbaric oxygen therapy. He is with his today. Progress of Wound: Improving - Physical Exam Vital Signs Temp Pulse Resp BP 96.8 F L 77 16 138/76 H 11/28/18 12:52 11/28/18 12:52 11/28/18 12:52 11/28/18 12:52 General: Alert, Oriented x3, Cooperative Extremities: No cyanosis, Capillary Refill Less than 3 Seconds, No Calf Tenderness - Negative Ortega bilateral, Diminished Peripheral Pulses, Edema - Mild bilateral lower extremities, - - Paralysis bilateral lower extremities Skin: Ulcer/ Wound - No purulence, erythema, streaking, odor, infection, deep bone or tissue exposure bilateral. There is hyper granulation tissue to the distal aspect of the left lateral leg ulcer site. The peripheral skin is hairless and atrophic. There is no interdigital maceration bilateral Wound Measurements and Assessment WC - Nurse 1 - General Ulcer Measurement Start: 11/28/18 11:03 Freq: Status: Active Protocol: Activity Type Activity Date Activity User E-Sign Co-Sign Detail Recorded Client Recorded Date Recorded By Document 11/28/18 11:09 DL [id number] 11/28/18 11:23 DL 11/28/18 11:09 Wound Center Nurse 1 [Ulcer Assessment] #7 RLat LE -Current Size (cm) - Length 7.8 -Current Size (cm) - Width 2.3 -Current Size (cm) - Depth 0.7 -Total Square Cm 17.94 -Photo Taken No -Exudate Amt Large (67-100%) -Exudate Type Serosanguineous -Wound Margin Distinct, Outline Attached -Granulation Amt Medium (34-66%) -Granulation Quality Red -Necrosis Amt Medium (34-66%) -Necrotic Tissue Type Adherent Slough -Structure Exposed N/A -Texture (Denisse-wound Skin Appearance) Scarring -Moisture (Denisse-wound Skin Appearance Dry/Scaly ) -Color (Denisse-wound Skin Appearance) Hemosiderin Staining -Temperature (Denisse-wound Skin No Abnormality Appearance) (Pt Warm) -Tenderness on Palpation (Denisse-wound No Skin Appearance) -Ulcer Cleansing Wound Cleanser -Foul Odor after Cleansing No -Anesthetic Used 4% Lidocaine Solution #5 Posterior LLE -Current Size (cm) - Length 2.4 -Current Size (cm) - Width 2 -Current Size (cm) - Depth 0.1 -Total Square Cm 4.8 -Exudate Amt Medium (34-66%) -Exudate Type Serosanguineous -Wound Margin Distinct, Outline Attached -Granulation Amt Medium (34-66%) -Granulation Quality Hyper- granulation Red -Necrosis Amt Medium (34-66%) -Necrotic Tissue Type Adherent Slough -Structure Exposed N/A -Texture (Denisse-wound Skin Appearance) Localized Edema Scarring -Moisture (Denisse-wound Skin Appearance Dry/Scaly ) -Color (Denisse-wound Skin Appearance) Hemosiderin Staining -Temperature (Denisse-wound Skin No Abnormality Appearance) (Pt Warm) -Tenderness on Palpation (Denisse-wound No Skin Appearance) -Ulcer Cleansing Wound Cleanser -Foul Odor after Cleansing No -Anesthetic Used 4% Lidocaine Solution #3 Right Heel -Current Size (cm) - Length 1.9 -Current Size (cm) - Width 4.4 -Current Size (cm) - Depth 0.2 -Total Square Cm 8.36 -Photo Taken No -Exudate Amt Medium (34-66%) -Exudate Type Serosanguineous -Wound Margin Distinct, Outline Attached -Granulation Amt Medium (34-66%) -Granulation Quality Red -Necrosis Amt Medium (34-66%) -Necrotic Tissue Type Adherent Slough -Structure Exposed N/A -Texture (Denisse-wound Skin Appearance) Scarring -Moisture (Denisse-wound Skin Appearance Dry/Scaly ) -Color (Denisse-wound Skin Appearance) Hemosiderin Staining -Temperature (Denisse-wound Skin No Abnormality Appearance) (Pt Warm) -Tenderness on Palpation (Denisse-wound No Skin Appearance) -Ulcer Cleansing Wound Cleanser -Foul Odor after Cleansing No -Anesthetic Used 4% Lidocaine Solution #2 Right Lateral Ankle -Current Size (cm) - Length 1.7 -Current Size (cm) - Width 1.3 -Current Size (cm) - Depth 0.1 -Total Square Cm 2.21 -Photo Taken No -Exudate Amt Small (1-33%) -Exudate Type Serosanguineous -Wound Margin Distinct, Outline Attached -Granulation Amt Large (67-100%) -Granulation Quality Hyper- granulation Red -Necrosis Amt Small (1-33%) -Necrotic Tissue Type Adherent Slough -Structure Exposed N/A -Texture (Denisse-wound Skin Appearance) Localized Edema Scarring -Moisture (Denisse-wound Skin Appearance Dry/Scaly ) -Color (Denisse-wound Skin Appearance) Hemosiderin Staining -Temperature (Denisse-wound Skin No Abnormality Appearance) (Pt Warm) -Tenderness on Palpation (Denisse-wound No Skin Appearance) -Ulcer Cleansing Wound Cleanser -Foul Odor after Cleansing No -Anesthetic Used 4% Lidocaine Solution [Edema Assessment] -Right Calf (cm) 28.5 -Right Ankle (cm) 23.4 -Left Calf (cm) 30 -Left Ankle (cm) 22.8 WC - Nurse 2 - General Ulcer CM Notes Start: 11/28/18 11:03 Freq: Status: Active Protocol: Activity Type Activity Date Activity User E-Sign Co-Sign Detail Recorded Client Recorded Date Recorded By Document 11/28/18 11:36 CAMERON [id number] 11/28/18 11:42 CAMERON 11/28/18 11:36 Wound Center Nurse 2 [Procedure/Treatment] #7 RLat LE -Time 11:36 -Correct Patient Yes -Correct Side, Site, Position Yes -Correct Procedure Yes -Procedure Performed Yes -Type of Procedure Debridement -Clinical Debridement Subcutaneous -Post Debridement Size (cm) - Length 7.8 -Post Debridement Size (cm) - Width 2.4 -Post Debridement Size (cm) - Depth 0.7 -Total Square Cm 18.72 -Wound/Ulcer Outcome Not Healed -Ulcer Cleansing Rinsed/ Irrigated with Saline -Foul Odor after Cleansing No -Bioengineered Tissue No -Bleeding Controlled with Pressure -Offloading No -Treatment Response Procedure Tolerated Well #5 Posterior LLE -Time 11:37 -Correct Patient Yes -Correct Side, Site, Position Yes -Correct Procedure Yes -Procedure Performed Yes -Type of Procedure Debridement -Clinical Debridement Subcutaneous -Post Debridement Size (cm) - Length 2.5 -Post Debridement Size (cm) - Width 2 -Post Debridement Size (cm) - Depth 0.1 -Total Square Cm 5.0 -Wound/Ulcer Outcome Not Healed -Ulcer Cleansing Rinsed/ Irrigated with Saline -Foul Odor after Cleansing No -Bioengineered Tissue No -Bleeding Controlled with Pressure Silver Nitrate -Offloading No -Treatment Response Procedure Tolerated Well #3 Right Heel -Time 11:37 -Correct Patient Yes -Correct Side, Site, Position Yes -Correct Procedure Yes -Procedure Performed Yes -Type of Procedure Debridement -Clinical Debridement Subcutaneous -Post Debridement Size (cm) - Length 2 -Post Debridement Size (cm) - Width 4.4 -Post Debridement Size (cm) - Depth 0.2 -Total Square Cm 8.8 -Wound/Ulcer Outcome Not Healed -Ulcer Cleansing Rinsed/ Irrigated with Saline -Foul Odor after Cleansing No -Bioengineered Tissue Yes -Type of bioengineered Tissue EPIFIX -Expiration Date 06/27/23 -Product Lot Number [id number] -Percent Used 100 -Saline Lot Number [id number] -Bleeding Controlled with Pressure -Offloading No -Treatment Response Procedure Tolerated Well #2 Right Lateral Ankle -Time 11:41 -Correct Patient Yes -Correct Side, Site, Position Yes -Correct Procedure Yes -Procedure Performed Yes -Type of Procedure Debridement -Clinical Debridement Subcutaneous -Post Debridement Size (cm) - Length 1.8 -Post Debridement Size (cm) - Width 1.3 -Post Debridement Size (cm) - Depth 0.1 -Total Square Cm 2.34 -Wound/Ulcer Outcome Not Healed -Ulcer Cleansing Rinsed/ Irrigated with Saline -Foul Odor after Cleansing No -Bioengineered Tissue No -Bleeding Controlled with Pressure -Offloading No -Treatment Response Procedure Tolerated Well [See Physician Procedure note for Specifics] Pain Scale: 0-10 Numeric [Pain] -Is Patient Pain Free? Yes Musculoskeletal: No Tenderness to Palpation of Joints or Extremities, Muscle Wasting, - - Compartments soft to palpate bilateral lower extremities. Wheelchair noted Neurological: - - Lack of epicritic sensation light touch bilateral lower extremities Psych/Mental Status: Normal Affect, Appropriate Debridement Note Post-Debridement Measurements/Treatment WC - Nurse 2 - General Ulcer CM Notes Start: 11/28/18 11:03 Freq: Status: Active Protocol: Activity Type Activity Date Activity User E-Sign Co-Sign Detail Recorded Client Recorded Date Recorded By Document 11/28/18 11:36 CAMERON [id number] 11/28/18 11:42 CAMERON 11/28/18 11:36 Wound Center Nurse 2 #7 RLat LE -Time 11:36 -Correct Patient Yes -Correct Side, Site, Position Yes -Correct Procedure Yes -Procedure Performed Yes -Type of Procedure Debridement -Clinical Debridement Subcutaneous -Post Debridement Size (cm) - Length 7.8 -Post Debridement Size (cm) - Width 2.4 -Post Debridement Size (cm) - Depth 0.7 -Total Square Cm 18.72 -Wound/Ulcer Outcome Not Healed -Ulcer Cleansing Rinsed/ Irrigated with Saline -Foul Odor after Cleansing No -Bioengineered Tissue No -Bleeding Controlled with Pressure -Offloading No -Treatment Response Procedure Tolerated Well #5 Posterior LLE -Time 11:37 -Correct Patient Yes -Correct Side, Site, Position Yes -Correct Procedure Yes -Procedure Performed Yes -Type of Procedure Debridement -Clinical Debridement Subcutaneous -Post Debridement Size (cm) - Length 2.5 -Post Debridement Size (cm) - Width 2 -Post Debridement Size (cm) - Depth 0.1 -Total Square Cm 5.0 -Wound/Ulcer Outcome Not Healed -Ulcer Cleansing Rinsed/ Irrigated with Saline -Foul Odor after Cleansing No -Bioengineered Tissue No -Bleeding Controlled with Pressure Silver Nitrate -Offloading No -Treatment Response Procedure Tolerated Well #3 Right Heel -Time 11:37 -Correct Patient Yes -Correct Side, Site, Position Yes -Correct Procedure Yes -Procedure Performed Yes -Type of Procedure Debridement -Clinical Debridement Subcutaneous -Post Debridement Size (cm) - Length 2 -Post Debridement Size (cm) - Width 4.4 -Post Debridement Size (cm) - Depth 0.2 -Total Square Cm 8.8 -Wound/Ulcer Outcome Not Healed -Ulcer Cleansing Rinsed/ Irrigated with Saline -Foul Odor after Cleansing No -Bioengineered Tissue Yes -Type of bioengineered Tissue EPIFIX -Expiration Date 06/27/23 -Product Lot Number [id number] -Percent Used 100 -Saline Lot Number [id number] -Bleeding Controlled with Pressure -Offloading No -Treatment Response Procedure Tolerated Well #2 Right Lateral Ankle -Time 11:41 -Correct Patient Yes -Correct Side, Site, Position Yes -Correct Procedure Yes -Procedure Performed Yes -Type of Procedure Debridement -Clinical Debridement Subcutaneous -Post Debridement Size (cm) - Length 1.8 -Post Debridement Size (cm) - Width 1.3 -Post Debridement Size (cm) - Depth 0.1 -Total Square Cm 2.34 -Wound/Ulcer Outcome Not Healed -Ulcer Cleansing Rinsed/ Irrigated with Saline -Foul Odor after Cleansing No -Bioengineered Tissue No -Bleeding Controlled with Pressure -Offloading No -Treatment Response Procedure Tolerated Well Pain Scale: 0-10 Numeric Is Patient Pain Free? Yes Wound debrided: lateral leg Laterality: Left Type of Debridement: Excisional debridement Anesthesia Used: 5% Lidocaine Gel Depth: in the subcutaneous layer Percentage of wound debrided: 100 Instrument Used: 3mm curette, - - Silver nitrate to distal 50% of ulcer to excise hyper granulation tissue. Tissue Removed: fibrous, devitalized subcutaneous, biofilm, slough Severity: Fat Layer Exposed Amount of bleeding with debridement: Mild Bleeding Controlled with: Compression and gauze Patient tolerated procedure well - Additional Wound Wound debrided: heel Laterality: Right Type of Debridement: Excisional debridement Anesthesia Used: 5% Lidocaine Gel Depth: in the subcutaneous layer Percentage of wound debrided: 100 Instrument Used: 3mm curette Tissue Removed: fibrous, devitalized subcutaneous, biofilm, slough Severity: Fat Layer Exposed Amount of bleeding with debridement: Mild Bleeding Controlled with: Pressure Patient tolerated procedure: Patient tolerated procedure well - Additional Wound Wound debrided: lateral ankle Laterality: Right Type of Debridement: Excisional debridement Anesthesia Used: 5% Lidocaine Gel Depth: in the subcutaneous layer Percentage of wound debrided: 100 Instrument Used: #15 blade Tissue Removed: fibrous, devitalized subcutaneous, biofilm, slough Severity: Fat Layer Exposed Amount of bleeding with debridement: Mild Bleeding Controlled with: Pressure Patient tolerated procedure: Patient tolerated procedure well - Additional Wound Wound debrided: lateral leg Laterality: Right Type of Debridement: Excisional debridement Anesthesia Used: 5% Lidocaine Gel Depth: in the subcutaneous layer Percentage of wound debrided: 100 Instrument Used: 3mm curette Tissue Removed: fibrous, devitalized subcutaneous, biofilm, slough Severity: Fat Layer Exposed Amount of bleeding with debridement: Mild Bleeding Controlled with: Pressure Patient tolerated procedure: Patient tolerated procedure well Assessment/Plan Active Problems (Last Reviewed 08/13/18 @ 10:19 by Fernando Patterson MD) Ulcer of right lower extremity with fat layer exposed (Chronic) Ulcer of left lower extremity with necrosis of muscle (Chronic) Hypergranulation (Acute) Non-pressure chronic ulcer of left lower leg with fat layer exposed (Chronic) 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) Ulcer of right foot with fat layer exposed (Chronic) previously unstageable pressure ulcer Paralysis (Chronic) Malnutrition (Chronic) Delayed wound healing (Chronic) Edema leg (Chronic) Assessment: Right lateral ankle unstageable pressure ulcer, no cellulitis. Fat layer exposed now. Right lateral leg ulcer, fat layer exposed. refractory osteomyelitis calcaneus, right. Right heel unstageable pressure ulcer, no cellulitis. fat layer exposed now. Left leg ulcer fat layer exposed (lateral). Peripheral vascular disease with rest pain. Other comorbidities. Delayed healing. Malnutrition. Paralysis and gait impairment with wheelchair use Plan: I reviewed and discussed his case today. The advance wound care product remains intact. Debridement and a subcutaneous excisional manner was performed bilateral lower extremity is as noted in the clinical panel. Advanced wound care product, epi fix was applied to the right heel. This was secured in place with a wound veil and Steri-Strips. Verbal consent was obtained prior to applying this. He tolerated this well. Juani was applied to the right and left lateral leg ulcer sites. He was advised to keep this dressing clean, dry, and intact until follow-up next week. His home health will be contacted with this plan. This is medically necessary to optimize healing. Today, a secondary dressing was applied with additional Tubigrip for continued edema management. He was advised to keep these clean, dry, and intact until follow-up next week. This will be monitored very closely and there does not appear to be an infection. He had recent noninvasive vascular studies performed which demonstrated noncompressible vessels in which ankle-brachial indices were not calculated. This is consistent with rest pain as well as multisegmental occlusive disease and vessel calcification. He did go for consultation with Dr. De Anda previously who formed an angioplasty to her in which intervention options were not identified. It is noted he does have perfusion opportunities available to the lower extremity on the right side. His labs were updated and discussed in his white blood cell count is 6.0, sedimentation rate 14, and hemoglobin A1c 5.8%. His updated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 x-rays do not demonstrate osseous destruction, periosteal reaction, soft tissue emphysema, acute fracture dislocation, or foreign body. Vessel calcification is seen on plain x-ray consistent with vessel disease. It is noted he completed a 6-week course of IV antibiotics and infectious disease has also been following him closely. He had a previous MRI which demonstrated mild marrow edema to the left calcaneus and lateral ankle consistent with osteomyelitis; the adjacent ulcer site have healed. He also had previous MRI which demonstrated these same findings to right calcaneus with adjacent ongoing delayed healing ulcer; this is the area of concern for refractory osteomyelitis at this time. Due to delayed healing, pain, and continued deep tissue exposure this is consistent with chronic osteomyelitis. I recommend hyperbaric oxygen therapy to optimize healing; this is medically necessary to optimize healing. It is noted his ejection fraction is 65%. The benefits, risks, complications, anticipated healing time and management were discussed in detail again today and he is demonstrated significant improvement throughout the course of his care here at the wound healing center. I answered all his questions. He understands that he is at significant risk for limb loss and our goal at this time is to control any infectious process and establish a clear level of perfusion. To continue with nutritional supplementation, Fred. To return to clinic in 1 week for physician reevaluation or call sooner if he has any questions or concerns.
[2018-11-29 10:46] VITALS: BP 146/73; BP 152/75; PULSE 70; PULSE 73; RESP 16; TEMP 36.7; TEMP 36.9
--- NOTE | 2018-11-29 11:13 | HBO.PN.PCM_ITS ---
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 Ulcer with fat tissue exposed left leg, right leg, right ankle. Ulcer right heel with fat and fascial layer exposed. Previously medically treated osteomyelitis. 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 Progress: The patient appears to be tolerating hyperbaric oxygen therapy well. Today's a session represents the 17th such session of hyperbaric oxygen therapy. Tolerance of hyperbaric oxygen therapy: Hyperbaric oxygen therapy was administered as per the facility's protocol. The patient tolerated hyperbaric oxygen therapy well, without complaints or complications. Upon emergence from the hyperbaric chamber, the patient's vital signs remained stable. He was discharged in good condition. 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) Ulcer of right foot with fat layer exposed (Chronic) previously unstageable pressure ulcer Paralysis (Chronic) Non-pressure chronic ulcer of other part of right foot with fat layer exposed (Chronic) Other specified peripheral vascular diseases (Chronic) Unstageable pressure ulcer of left foot (Chronic) Unstageable pressure ulcer of right foot (Chronic) Ulcer of left lower extremity with fat layer exposed (Chronic) previously unstageable pressure ulcer Malnutrition (Chronic) Delayed wound healing (Chronic) Edema leg (Chronic) Paralysis (Chronic) Ulcer of right lower extremity with fat layer exposed (Chronic) previously unstageable pressure ulcer Osteomyelitis (Chronic) Chronic pain (Chronic) Nocardia infection (Chronic) 2004, right arm and left leg, 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 Allergies/Adverse Reactions: Allergies Cephalosporins Allergy (Intermediate, Verified 11/06/18 08:58) Laryngospasms Penicillins Allergy (Intermediate, Verified 11/06/18 08:58) Rash IVP DYE Allergy (Uncoded 11/06/18 08:58) Rash Home Medications: Ambulatory Orders Medication Instructions Recorded Losartan Potassium [Cozaar] 12.5 mg PO DAILY 01/12/16 Riboflavin (Vitamin B2) [Vitamin 300 mg PO DAILY@1700 11/10/16 B2] Ascorbic Acid [Vitamin C] 500 mg PO TID 07/05/18 Gabapentin [Neurontin] 600 mg PO TID 07/05/18 [place] Carbonate 150 mg PO TID 07/05/18 Furosemide [Lasix] 40 mg PO DAILY 08/11/18 Magnesium 500 mg PO BID 08/11/18 Sennosides/Docusate Sodium 2 each PO DAILY 08/11/18 [Senna-S Laxative Tablet] traZODone [Desyrel] 25 mg PO QHS 08/11/18 Collagenase [Santyl] 1 applic TOPICAL DAILY tube 08/14/18 Mineral Oil/Petrolatum,White 1 applic TOPICAL BID jar 08/14/18 [Eucerin] Atorvastatin Calcium [Lipitor] 40 mg PO QHS 11/06/18 Carvedilol [Coreg (Beta Krissy)] 3.125 mg PO BID 11/06/18 Clopidogrel Bisulfate [Plavix] 75 mg PO DAILY 11/06/18 Cyclobenzaprine [Flexeril] 2.5 mg PO QHS PRN 11/06/18 Duloxetine Hcl [Cymbalta] 60 mg PO DAILY 11/06/18 Isosorbide Mononitrate 10 mg PO QHS 11/06/18 Morphine Sulfate [Morphine Sulfate 15 mg PO BID 11/06/18 ER] Multivitamins,Ther W-Minerals 1 tablet PO DAILY 11/06/18 [Multivitamin With Minerals] Nutritional Supplement [Fred - 1 packet PO BIDCM 11/06/18 [place] FLAVOR] Pyridoxine HCl [Vitamin B-6] 100 mg PO DAILY 11/06/18 Smz/Tmp Ds [Bactrim Ds] 1 tablet PO DAILY 11/06/18 Tamsulosin HCl [Flomax] 0.4 mg PO 1700 11/06/18 Maternal Family History: - - , depression Paternal Family History: - - Offspring Family History: - - 2 children, 4 grand children, 1 great grandchild, all in good health Smoking Status: Never smoker Tobacco Use: Non-smoker Physical Exam Vital Signs Temp Pulse Resp BP 98.1 F 70 16 146/73 H 11/29/18 10:46 11/29/18 10:46 11/29/18 10:46 11/29/18 10:46 General: Alert, Oriented x3, Cooperative HEENT: Atraumatic, TM's Clear Lungs: Clear to auscultation, Normal air movement Cardiovascular: Regular rate, Regular Rhythm Psych/Mental Status: Normal Affect, Appropriate, Alert and oriented to time, place, person, mood and affect Assessment/Plan Active Problems (Last Reviewed 08/13/18 @ 10:19 by Fernando Patterson MD) Ulcer of right lower extremity with fat layer exposed (Chronic) Ulcer of left lower extremity with necrosis of muscle (Chronic) Hypergranulation (Acute) 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
[2018-11-30 11:15] VITALS: BP 145/68; BP 158/89; PULSE 65; PULSE 68; RESP 16; RESP 18; TEMP 36.4; TEMP 36.6
--- NOTE | 2018-11-30 16:50 | PCM.HBO.PN ---
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 Ulcer with fat tissue exposed left leg, right leg, right ankle. Ulcer right heel with fat and fascial layer exposed. Previously medically treated osteomyelitis. 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 Progress: The patient appears to be tolerating hyperbaric oxygen therapy well. Today's a session represents the 18th such session of hyperbaric oxygen therapy. Tolerance of hyperbaric oxygen therapy: Hyperbaric oxygen therapy was administered as per the facility's protocol. The patient tolerated hyperbaric oxygen therapy well, without complaints or complications. Upon emergence from the hyperbaric chamber, the patient's vital signs remained stable. He was discharged in good condition. 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) Ulcer of right foot with fat layer exposed (Chronic) previously unstageable pressure ulcer Paralysis (Chronic) Non-pressure chronic ulcer of other part of right foot with fat layer exposed (Chronic) Other specified peripheral vascular diseases (Chronic) Unstageable pressure ulcer of left foot (Chronic) Unstageable pressure ulcer of right foot (Chronic) Ulcer of left lower extremity with fat layer exposed (Chronic) previously unstageable pressure ulcer Malnutrition (Chronic) Delayed wound healing (Chronic) Edema leg (Chronic) Paralysis (Chronic) Ulcer of right lower extremity with fat layer exposed (Chronic) previously unstageable pressure ulcer Osteomyelitis (Chronic) Chronic pain (Chronic) Nocardia infection (Chronic) 2004, right arm and left leg, 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 Allergies/Adverse Reactions: Allergies Cephalosporins Allergy (Intermediate, Verified 11/06/18 08:58) Laryngospasms Penicillins Allergy (Intermediate, Verified 11/06/18 08:58) Rash IVP DYE Allergy (Uncoded 11/06/18 08:58) Rash Home Medications: Ambulatory Orders Medication Instructions Recorded Losartan Potassium [Cozaar] 12.5 mg PO DAILY 01/12/16 Riboflavin (Vitamin B2) [Vitamin 300 mg PO DAILY@1700 11/10/16 B2] Ascorbic Acid [Vitamin C] 500 mg PO TID 07/05/18 Gabapentin [Neurontin] 600 mg PO TID 07/05/18 [place] Carbonate 150 mg PO TID 07/05/18 Furosemide [Lasix] 40 mg PO DAILY 08/11/18 Magnesium 500 mg PO BID 08/11/18 Sennosides/Docusate Sodium 2 each PO DAILY 08/11/18 [Senna-S Laxative Tablet] traZODone [Desyrel] 25 mg PO QHS 08/11/18 Collagenase [Santyl] 1 applic TOPICAL DAILY tube 08/14/18 Mineral Oil/Petrolatum,White 1 applic TOPICAL BID jar 08/14/18 [Eucerin] Atorvastatin Calcium [Lipitor] 40 mg PO QHS 11/06/18 Carvedilol [Coreg (Beta Krissy)] 3.125 mg PO BID 11/06/18 Clopidogrel Bisulfate [Plavix] 75 mg PO DAILY 11/06/18 Cyclobenzaprine [Flexeril] 2.5 mg PO QHS PRN 11/06/18 Duloxetine Hcl [Cymbalta] 60 mg PO DAILY 11/06/18 Isosorbide Mononitrate 10 mg PO QHS 11/06/18 Morphine Sulfate [Morphine Sulfate 15 mg PO BID 11/06/18 ER] Multivitamins,Ther W-Minerals 1 tablet PO DAILY 11/06/18 [Multivitamin With Minerals] Nutritional Supplement [Fred - 1 packet PO BIDCM 11/06/18 [place] FLAVOR] Pyridoxine HCl [Vitamin B-6] 100 mg PO DAILY 11/06/18 Smz/Tmp Ds [Bactrim Ds] 1 tablet PO DAILY 11/06/18 Tamsulosin HCl [Flomax] 0.4 mg PO 1700 11/06/18 Maternal Family History: - - , depression Paternal Family History: - - Offspring Family History: - - 2 children, 4 grand children, 1 great grandchild, all in good health Smoking Status: Never smoker Tobacco Use: Non-smoker Physical Exam Vital Signs Temp Pulse Resp BP 97.9 F 68 18 158/89 H 11/30/18 11:15 11/30/18 11:15 11/30/18 11:15 11/30/18 11:15 General: Alert, Oriented x3, Cooperative, No apparent distress Psych/Mental Status: Normal Affect, Appropriate Assessment/Plan Active Problems (Last Reviewed 08/13/18 @ 10:19 by Fernando Patterson MD) Ulcer of right lower extremity with fat layer exposed (Chronic) Ulcer of left lower extremity with necrosis of muscle (Chronic) Hypergranulation (Acute) 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
[2018-12-03 11:09] VITALS: BP 140/74; BP 156/76; PULSE 62; RESP 16; TEMP 36.2; TEMP 36.3
--- NOTE | 2018-12-03 16:47 | HBO.PN.PCM_ITS ---
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 Ulcer with fat tissue exposed left leg, right leg, right ankle. Ulcer right heel with fat and fascial layer exposed. Previously medically treated osteomyelitis. 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 Progress: The patient appears to be tolerating hyperbaric oxygen therapy well. Today's a session represents the 19th such session of hyperbaric oxygen therapy. Tolerance of hyperbaric oxygen therapy: Hyperbaric oxygen therapy was administered as per the facility's protocol. The patient tolerated hyperbaric oxygen therapy well, without complaints or complications. Upon emergence from the hyperbaric chamber, the patient's vital signs remained stable. He was d ischarged in good condition. 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) Ulcer of right foot with fat layer exposed (Chronic) previously unstageable pressure ulcer Paralysis (Chronic) Non-pressure chronic ulcer of other part of right foot with fat layer exposed (Chronic) Other specified peripheral vascular diseases (Chronic) Unstageable pressure ulcer of left foot (Chronic) Unstageable pressure ulcer of right foot (Chronic) Ulcer of left lower extremity with fat layer exposed (Chronic) previously unstageable pressure ulcer Malnutrition (Chronic) Delayed wound healing (Chronic) Edema leg (Chronic) Paralysis (Chronic) Ulcer of right lower extremity with fat layer exposed (Chronic) previously unstageable pressure ulcer Osteomyelitis (Chronic) Chronic pain (Chronic) Nocardia infection (Chronic) 2004, right arm and left leg, 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 Allergies/Adverse Reactions: Allergies Cephalosporins Allergy (Intermediate, Verified 11/06/18 08:58) Laryngospasms Penicillins Allergy (Intermediate, Verified 11/06/18 08:58) Rash IVP DYE Allergy (Uncoded 11/06/18 08:58) Rash Home Medications: Ambulatory Orders Medication Instructions Recorded Losartan Potassium [Cozaar] 12.5 mg PO DAILY 01/12/16 Riboflavin (Vitamin B2) [Vitamin 300 mg PO DAILY@1700 11/10/16 B2] Ascorbic Acid [Vitamin C] 500 mg PO TID 07/05/18 Gabapentin [Neurontin] 600 mg PO TID 07/05/18 [place] Carbonate 150 mg PO TID 07/05/18 Furosemide [Lasix] 40 mg PO DAILY 08/11/18 Magnesium 500 mg PO BID 08/11/18 Sennosides/Docusate Sodium 2 each PO DAILY 08/11/18 [Senna-S Laxative Tablet] traZODone [Desyrel] 25 mg PO QHS 08/11/18 Collagenase [Santyl] 1 applic TOPICAL DAILY tube 08/14/18 Mineral Oil/Petrolatum,White 1 applic TOPICAL BID jar 08/14/18 [Eucerin] Atorvastatin Calcium [Lipitor] 40 mg PO QHS 11/06/18 Carvedilol [Coreg (Beta Krissy)] 3.125 mg PO BID 11/06/18 Clopidogrel Bisulfate [Plavix] 75 mg PO DAILY 11/06/18 Cyclobenzaprine [Flexeril] 2.5 mg PO QHS PRN 11/06/18 Duloxetine Hcl [Cymbalta] 60 mg PO DAILY 11/06/18 Isosorbide Mononitrate 10 mg PO QHS 11/06/18 Morphine Sulfate [Morphine Sulfate 15 mg PO BID 11/06/18 ER] Multivitamins,Ther W-Minerals 1 tablet PO DAILY 11/06/18 [Multivitamin With Minerals] Nutritional Supplement [Fred - 1 packet PO BIDCM 11/06/18 [place] FLAVOR] Pyridoxine HCl [Vitamin B-6] 100 mg PO DAILY 11/06/18 Smz/Tmp Ds [Bactrim Ds] 1 tablet PO DAILY 11/06/18 Tamsulosin HCl [Flomax] 0.4 mg PO 1700 11/06/18 Maternal Family History: - - , depression Paternal Family History: - - Offspring Family History: - - 2 children, 4 grand children, 1 great grandchild, all in good health Smoking Status: Never smoker Tobacco Use: Non-smoker Physical Exam Vital Signs Temp Pulse Resp BP 97.2 F L 62 16 140/74 H 12/03/18 11:09 12/03/18 11:09 12/03/18 11:09 12/03/18 11:09 General: Alert, Oriented x3, Cooperative, No apparent distress, Well developed, Well nourished HEENT: Atraumatic, PERRLA, EOMI, Normocephalic Lungs: Normal air movement Psych/Mental Status: Normal Affect, Appropriate, Alert and oriented to time, place, person, mood and affect Assessment/Plan Active Problems (Last Reviewed 08/13/18 @ 10:19 by Fernando Patterson MD) Ulcer of right lower extremity with fat layer exposed (Chronic) Ulcer of left lower extremity with necrosis of muscle (Chronic) Hypergranulation (Acute) 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
[2018-12-04 10:35] VITALS: BP 133/64; BP 146/81; PULSE 69; PULSE 73; RESP 16; RESP 18; TEMP 36.5; TEMP 36.8
--- NOTE | 2018-12-04 12:13 | HBO.PN.PCM_ITS ---
History of Present Illness Date of Service: 12/04/18 Presenting Chief Complaint: 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 Ulcer with fat tissue exposed left leg, right leg, right ankle. Ulcer right heel with fat and fascial layer exposed. Previously medically treated osteomyelitis. 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 Progress: The patient appears to be tolerating hyperbaric oxygen therapy well. Today's a session represents the 20th such session of hyperbaric oxygen therapy. Tolerance of hyperbaric oxygen therapy: Hyperbaric oxygen therapy was administered as per the facility's protocol. The patient tolerated hyperbaric oxygen therapy well, without complaints or complications. Upon emergence from the hyperbaric chamber, the patient's vital signs remained stable. He was discharged in good condition. 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) Ulcer of right foot with fat layer exposed (Chronic) previously unstageable pressure ulcer Paralysis (Chronic) Non-pressure chronic ulcer of other part of right foot with fat layer exposed (Chronic) Other specified peripheral vascular diseases (Chronic) Unstageable pressure ulcer of left foot (Chronic) Unstageable pressure ulcer of right foot (Chronic) Ulcer of left lower extremity with fat layer exposed (Chronic) previously unstageable pressure ulcer Malnutrition (Chronic) Delayed wound healing (Chronic) Edema leg (Chronic) Paralysis (Chronic) Ulcer of right lower extremity with fat layer exposed (Chronic) previously unstageable pressure ulcer Osteomyelitis (Chronic) Chronic pain (Chronic) Nocardia infection (Chronic) 2004, right arm and left leg, 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 Allergies/Adverse Reactions: Allergies Cephalosporins Allergy (Intermediate, Verified 11/06/18 08:58) Laryngospasms Penicillins Allergy (Intermediate, Verified 11/06/18 08:58) Rash IVP DYE Allergy (Uncoded 11/06/18 08:58) Rash Home Medications: Ambulatory Orders Medication Instructions Recorded Losartan Potassium [Cozaar] 12.5 mg PO DAILY 01/12/16 Riboflavin (Vitamin B2) [Vitamin 300 mg PO DAILY@1700 11/10/16 B2] Ascorbic Acid [Vitamin C] 500 mg PO TID 07/05/18 Gabapentin [Neurontin] 600 mg PO TID 07/05/18 [place] Carbonate 150 mg PO TID 07/05/18 Furosemide [Lasix] 40 mg PO DAILY 08/11/18 Magnesium 500 mg PO BID 08/11/18 Sennosides/Docusate Sodium 2 each PO DAILY 08/11/18 [Senna-S Laxative Tablet] traZODone [Desyrel] 25 mg PO QHS 08/11/18 Collagenase [Santyl] 1 applic TOPICAL DAILY tube 08/14/18 Mineral Oil/Petrolatum,White 1 applic TOPICAL BID jar 08/14/18 [Eucerin] Atorvastatin Calcium [Lipitor] 40 mg PO QHS 11/06/18 Carvedilol [Coreg (Beta Krissy)] 3.125 mg PO BID 11/06/18 Clopidogrel Bisulfate [Plavix] 75 mg PO DAILY 11/06/18 Cyclobenzaprine [Flexeril] 2.5 mg PO QHS PRN 11/06/18 Duloxetine Hcl [Cymbalta] 60 mg PO DAILY 11/06/18 Isosorbide Mononitrate 10 mg PO QHS 11/06/18 Morphine Sulfate [Morphine Sulfate 15 mg PO BID 11/06/18 ER] Multivitamins,Ther W-Minerals 1 tablet PO DAILY 11/06/18 [Multivitamin With Minerals] Nutritional Supplement [Fred - 1 packet PO BIDCM 11/06/18 [place]LAVOR] Pyridoxine HCl [Vitamin B-6] 100 mg PO DAILY 11/06/18 Smz/Tmp Ds [Bactrim Ds] 1 tablet PO DAILY 11/06/18 Tamsulosin HCl [Flomax] 0.4 mg PO 1700 11/06/18 Maternal Family History: - - , depression Paternal Family History: - - Offspring Family History: - - 2 children, 4 grand children, 1 great grandchild, all in good health Smoking Status: Never smoker Tobacco Use: Non-smoker Physical Exam Vital Signs Temp Pulse Resp BP 98.3 F 73 18 146/81 H 12/04/18 10:35 12/04/18 10:35 12/04/18 10:35 12/04/18 10:35 General: Alert, Oriented x3, Cooperative, No apparent distress, Well developed, Well nourished HEENT: Atraumatic, PERRLA, EOMI, Normocephalic Lungs: Normal air movement Psych/Mental Status: Normal Affect, Appropriate, Alert and oriented to time, place, person, mood and affect Assessment/Plan Active Problems (Last Reviewed 08/13/18 @ 10:19 by Fernando Patterson MD) Ulcer of right lower extremity with fat layer exposed (Chronic) Ulcer of left lower extremity with necrosis of muscle (Chronic) Hypergranulation (Acute) 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
--- NOTE | 2018-12-05 11:24 | PCM.HBO.PN ---
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 Ulcer with fat tissue exposed left leg, right leg, right ankle. Ulcer right heel with fat and fascial layer exposed. Previously medically treated osteomyelitis. 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 Progress: The patient appears to be tolerating hyperbaric oxygen therapy well. Today's a session represents the 21st such session of hyperbaric oxygen therapy. Tolerance of hyperbaric oxygen therapy: Hyperbaric oxygen therapy was administered as per the facility's protocol. The patient tolerated hyperbaric oxygen therapy well, without complaints or complications. Upon emergence from the hyperbaric chamber, the patient's vital signs remained stable. He was discharged in good condition. 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) Ulcer of right foot with fat layer exposed (Chronic) previously unstageable pressure ulcer Paralysis (Chronic) Non-pressure chronic ulcer of other part of right foot with fat layer exposed (Chronic) Other specified peripheral vascular diseases (Chronic) Unstageable pressure ulcer of left foot (Chronic) Unstageable pressure ulcer of right foot (Chronic) Ulcer of left lower extremity with fat layer exposed (Chronic) previously unstageable pressure ulcer Malnutrition (Chronic) Delayed wound healing (Chronic) Edema leg (Chronic) Paralysis (Chronic) Ulcer of right lower extremity with fat layer exposed (Chronic) previously unstageable pressure ulcer Osteomyelitis (Chronic) Chronic pain (Chronic) Nocardia infection (Chronic) 2004, right arm and left leg, 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 Allergies/Adverse Reactions: Allergies Cephalosporins Allergy (Intermediate, Verified 11/06/18 08:58) Laryngospasms Penicillins Allergy (Intermediate, Verified 11/06/18 08:58) Rash IVP DYE Allergy (Uncoded 11/06/18 08:58) Rash Home Medications: Ambulatory Orders Medication Instructions Recorded Losartan Potassium [Cozaar] 12.5 mg PO DAILY 01/12/16 Riboflavin (Vitamin B2) [Vitamin 300 mg PO DAILY@1700 11/10/16 B2] Ascorbic Acid [Vitamin C] 500 mg PO TID 07/05/18 Gabapentin [Neurontin] 600 mg PO TID 07/05/18 [place] Carbonate 150 mg PO TID 07/05/18 Furosemide [Lasix] 40 mg PO DAILY 08/11/18 Magnesium 500 mg PO BID 08/11/18 Sennosides/Docusate Sodium 2 each PO DAILY 08/11/18 [Senna-S Laxative Tablet] traZODone [Desyrel] 25 mg PO QHS 08/11/18 Collagenase [Santyl] 1 applic TOPICAL DAILY tube 08/14/18 Mineral Oil/Petrolatum,White 1 applic TOPICAL BID jar 08/14/18 [Eucerin] Atorvastatin Calcium [Lipitor] 40 mg PO QHS 11/06/18 Carvedilol [Coreg (Beta Krissy)] 3.125 mg PO BID 11/06/18 Clopidogrel Bisulfate [Plavix] 75 mg PO DAILY 11/06/18 Cyclobenzaprine [Flexeril] 2.5 mg PO QHS PRN 11/06/18 Duloxetine Hcl [Cymbalta] 60 mg PO DAILY 11/06/18 Isosorbide Mononitrate 10 mg PO QHS 11/06/18 Morphine Sulfate [Morphine Sulfate 15 mg PO BID 11/06/18 ER] Multivitamins,Ther W-Minerals 1 tablet PO DAILY 11/06/18 [Multivitamin With Minerals] Nutritional Supplement [Fred - 1 packet PO BIDCM 11/06/18 [place] FLAVOR] Pyridoxine HCl [Vitamin B-6] 100 mg PO DAILY 11/06/18 Smz/Tmp Ds [Bactrim Ds] 1 tablet PO DAILY 11/06/18 Tamsulosin HCl [Flomax] 0.4 mg PO 1700 11/06/18 Maternal Family History: - - , depression Paternal Family History: - - Offspring Family History: - - 2 children, 4 grand children, 1 great grandchild, all in good health Smoking Status: Never smoker Tobacco Use: Non-smoker Physical Exam Vital Signs Temp Pulse Resp BP 98.3 F 73 18 146/81 H 12/04/18 10:35 12/04/18 10:35 12/04/18 10:35 12/04/18 10:35 General: Alert, Oriented x3, Cooperative HEENT: Atraumatic, TM's Clear - moderate amount of cerumen removed from right external ear, tolerated well Lungs: Clear to auscultation, Normal air movement Cardiovascular: Regular rate, Regular Rhythm, Murmur Psych/Mental Status: Normal Affect, Appropriate, Alert and oriented to time, place, person, mood and affect Assessment/Plan Active Problems (Last Reviewed 08/13/18 @ 10:19 by Fernando Patterson MD) Ulcer of right lower extremity with fat layer exposed (Chronic) Ulcer of left lower extremity with necrosis of muscle (Chronic) Hypergranulation (Acute) 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
[2018-12-05 11:42] VITALS: BP 129/72; BP 135/61; PULSE 61; RESP 18; TEMP 36.4; TEMP 36.6
[2018-12-05 13:44] VITALS: BMI 24.3
--- NOTE | 2018-12-05 15:12 | PCM.WC.PN ---
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 Current Visit: Yes Code(s): L97.922 - Non-pressure chronic ulcer of unspecified part of left lower leg with fat layer exposed (2) Ulcer of right lower extremity with fat layer exposed Status: Chronic Current Visit: Yes Code(s): L97.912 - Non-pressure chronic ulcer of unspecified part of right lower leg with fat layer exposed (3) Chronic refractory osteomyelitis of right foot Status: Chronic Current Visit: Yes Code(s): M86.671 - Other chronic osteomyelitis,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 (4) Ulcer of right foot with fat layer exposed Status: Chronic Current Visit: Yes Code(s): L97.512 - Non-pressure chronic ulcer of other part of right foot with fat layer exposed Comment: previously unstageable pressure ulcer (5) Paralysis Status: Chronic Current Visit: Yes Code(s): G83.9 - Paralytic syndrome, unspecified (6) Malnutrition Status: Chronic Current Visit: Yes Code(s): E46 - Unspecified protein-calorie malnutrition (7) Delayed wound healing Status: Chronic Current Visit: Yes Code(s): T14.8XXD - Other injury of unspecified body region, subsequent encounter (8) Edema leg Status: Chronic Current Visit: Yes Code(s): R60.0 - Localized edema (9) Hypergranulation Status: Acute Current Visit: Yes Code(s): L92.9 - Granulomatous disorder of the skin and subcutaneous tissue, unspecified Type of Wound Date of Service: 12/05/18 Chief Complaint: 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 Ulcer with fat tissue exposed left leg, right leg, right ankle. Ulcer right heel with fat and fascial layer exposed. Previously medically treated osteomyelitis. Paraplegia History of Wound: This 83-year-old male with multiple comorbidities was seen at the wound healing center for pressure ulcers to bilateral lower extremities. He recently had versa jet debridement in the operating room with application of advanced wound care products including amniofill and epicord to the left leg as well as the right leg, ankle, and heel. He also recently completed a vascular surgery evaluation with Dr. De Anda and an Angio without any identifiable intervention noted. He denies fever, chill, nausea, vomiting. He is a paraplegic and presents in a wheelchair. He continues to take Fred supplementation. He did obtain bilateral donut offloading pillows and this helps keep pressure off the sites. He continues hyperbaric oxygen therapy. He is with his today. Progress of Wound: Improving - Physical Exam Vital Signs Temp Pulse Resp BP 97.9 F 61 18 135/61 H 12/05/18 11:42 12/05/18 11:42 12/05/18 11:42 12/05/18 11:42 General: Alert, Oriented x3, Cooperative Extremities: No cyanosis, Capillary Refill Less than 3 Seconds, No Calf Tenderness, Diminished Peripheral Pulses, Edema - Mild bilateral lower extremities, - - Paralysis bilateral lower extremities Skin: Ulcer/ Wound - No purulence, erythema, streaking, odor, or infection or necrosis bilateral lower extremities. There is no exposed bone capsule bilateral. There is hyper granulation tissue to the lateral ulcer on the left leg. All ulcer sites in the right side have improved granulation tissue in the central portion of the right lateral leg cluster site is fully epithelialized Wound Measurements and Assessment WC - Nurse 1 - General Ulcer Measurement Start: 11/28/18 11:03 Freq: Status: Active Protocol: Activity Type Activity Date Activity User E-Sign Co-Sign Detail Recorded Client Recorded Date Recorded By Document 12/05/18 13:44 DV [id number] 12/05/18 14:04 DV 12/05/18 13:44 Wound Center Nurse 1 [Ulcer Assessment] #7 RLat LE -Combined with other wound No -Current Size (cm) - Length 6.2 -Current Size (cm) - Width 2.0 -Current Size (cm) - Depth 0.2 -Total Square Cm 12.40 -Photo Taken No -Epithelialization None Present -Tunneling No -Undermining/Tunneling No -Circular Undermining No -Wound Margin Indistinct, Non -Visible -Granulation Amt Small (1-33%) -Granulation Quality Red -Slough/Fibrin Yes -Necrosis Amt Medium (34-66%) -Necrotic Tissue Type Adherent Slough -Structure Exposed None/Limited to Skin Breakdown -Texture (Denisse-wound Skin Appearance) Assessed Scarring -Moisture (Denisse-wound Skin Appearance Assessed ) Weeping -Color (Denisse-wound Skin Appearance) No Abnormality Assessed -Temperature (Denisse-wound Skin No Abnormality Appearance) (Pt Warm) -Tenderness on Palpation (Denisse-wound No Skin Appearance) -Ulcer Cleansing Rinsed/ Irrigated with Saline -Foul Odor after Cleansing No -Anesthetic Used 5% Lidocaine Gel #5 Posterior LLE -Combined with other wound No -Current Size (cm) - Length 1.2 -Current Size (cm) - Width 2.0 -Current Size (cm) - Depth 0.2 -Total Square Cm 2.40 -Photo Taken No -Epithelialization None Present -Tunneling No -Undermining/Tunneling No -Circular Undermining No -Exudate Amt Small -Exudate Type Serous -Wound Margin Indistinct, Non -Visible -Granulation Amt Large (67-100%) -Granulation Quality Hyper- granulation -Slough/Fibrin Yes -Necrosis Amt Small (1-33%) -Necrotic Tissue Type Adherent Slough -Structure Exposed None/Limited to Skin Breakdown -Texture (Denisse-wound Skin Appearance) Assessed Scarring -Moisture (Denisse-wound Skin Appearance Assessed ) Weeping -Color (Denisse-wound Skin Appearance) No Abnormality Assessed -Temperature (Denisse-wound Skin No Abnormality Appearance) (Pt Warm) -Tenderness on Palpation (Denisse-wound No Skin Appearance) -Ulcer Cleansing Rinsed/ Irrigated with Saline -Foul Odor after Cleansing No -Anesthetic Used 5% Lidocaine Gel #3 Right Heel -Combined with other wound No -Current Size (cm) - Length 3.0 -Current Size (cm) - Width 4.7 -Current Size (cm) - Depth 0.2 -Total Square Cm 14.10 -Photo Taken No -Epithelialization Small 1-33% -Tunneling No -Undermining/Tunneling No -Circular Undermining No -Wound Margin Indistinct, Non -Visible -Granulation Amt Small (1-33%) -Granulation Quality Red -Slough/Fibrin Yes -Necrosis Amt Small (1-33%) -Necrotic Tissue Type Adherent Slough -Structure Exposed None/Limited to Skin Breakdown -Texture (Denisse-wound Skin Appearance) Assessed Scarring -Moisture (Denisse-wound Skin Appearance Assessed ) Weeping -Color (Denisse-wound Skin Appearance) Assessed Erythema -Temperature (Denisse-wound Skin No Abnormality Appearance) (Pt Warm) -Tenderness on Palpation (Denisse-wound No Skin Appearance) -Ulcer Cleansing Rinsed/ Irrigated with Saline -Foul Odor after Cleansing No -Anesthetic Used 5% Lidocaine Gel #2 Right Lateral Ankle -Combined with other wound No -Current Size (cm) - Length 2.5 -Current Size (cm) - Width 1.8 -Current Size (cm) - Depth 0.2 -Total Square Cm 4.50 -Photo Taken No -Epithelialization Small 1-33% -Tunneling No -Undermining/Tunneling No -Circular Undermining No -Exudate Amt Small -Exudate Type Serosanguineous -Wound Margin Indistinct, Non -Visible -Granulation Amt Small (1-33%) -Granulation Quality Pale Red -Slough/Fibrin Yes -Necrosis Amt Medium (34-66%) -Necrotic Tissue Type Adherent Slough -Structure Exposed None/Limited to Skin Breakdown -Texture (Denisse-wound Skin Appearance) Assessed Scarring -Moisture (Denisse-wound Skin Appearance Assessed ) Weeping -Color (Denisse-wound Skin Appearance) No Abnormality Assessed -Temperature (Denisse-wound Skin No Abnormality Appearance) (Pt Warm) -Ulcer Cleansing Rinsed/ Irrigated with Saline -Foul Odor after Cleansing No -Anesthetic Used 5% Lidocaine Gel [Edema Assessment] -Lower Limb Edema Present No WC - Nurse 2 - General Ulcer CM Notes Start: 11/28/18 11:03 Freq: Status: Active Protocol: Activity Type Activity Date Activity User E-Sign Co-Sign Detail Recorded Client Recorded Date Recorded By Document 12/05/18 14:18 [id number] 12/05/18 14:22 12/05/18 14:18 Wound Center Nurse 2 [Procedure/Treatment] #7 RLat LE -Time 14:18 -Correct Patient Yes -Correct Side, Site, Position Yes -Correct Procedure Yes -Procedure Performed Yes -Type of Procedure Debridement -Clinical Debridement Subcutaneous -Post Debridement Size (cm) - Length 6.2 -Post Debridement Size (cm) - Width 2.1 -Post Debridement Size (cm) - Depth 0.2 -Total Square Cm 13.02 -Wound/Ulcer Outcome Not Healed -Ulcer Cleansing Rinsed/ Irrigated with Saline -Foul Odor after Cleansing No -Bioengineered Tissue Yes -Type of bioengineered Tissue EPIFIX -Expiration Date 06/27/23 -Product Lot Number [id number] -Percent Used 100 -Saline Lot Number [id number] -Bleeding Controlled with Pressure -Offloading No -Treatment Response Procedure Tolerated Well #5 Posterior LLE -Time 14:19 -Correct Patient Yes -Correct Side, Site, Position Yes -Correct Procedure Yes -Procedure Performed Yes -Type of Procedure Debridement -Clinical Debridement Subcutaneous -Post Debridement Size (cm) - Length 1.3 -Post Debridement Size (cm) - Width 2 -Post Debridement Size (cm) - Depth 0.2 -Total Square Cm 2.6 -Wound/Ulcer Outcome Not Healed -Ulcer Cleansing Rinsed/ Irrigated with Saline -Foul Odor after Cleansing No -Bioengineered Tissue No -Bleeding Controlled with Pressure Silver Nitrate -Offloading No -Treatment Response Procedure Tolerated Well #3 Right Heel -Time 14:19 -Correct Patient Yes -Correct Side, Site, Position Yes -Correct Procedure Yes -Procedure Performed Yes -Type of Procedure Debridement -Clinical Debridement Subcutaneous -Post Debridement Size (cm) - Length 3 -Post Debridement Size (cm) - Width 4.8 -Post Debridement Size (cm) - Depth 0.2 -Total Square Cm 14.4 -Wound/Ulcer Outcome Not Healed -Ulcer Cleansing Rinsed/ Irrigated with Saline -Foul Odor after Cleansing No -Bioengineered Tissue Yes -Type of bioengineered Tissue EPIFIX -Expiration Date 06/27/23 -Product Lot Number [id number] -Percent Used 100 -Saline Lot Number [id number] -Bleeding Controlled with Pressure -Offloading No -Treatment Response Procedure Tolerated Well #2 Right Lateral Ankle -Time 14:19 -Correct Patient Yes -Correct Side, Site, Position Yes -Correct Procedure Yes -Procedure Performed Yes -Type of Procedure Debridement -Clinical Debridement Subcutaneous -Post Debridement Size (cm) - Length 2.5 -Post Debridement Size (cm) - Width 1.9 -Post Debridement Size (cm) - Depth 0.2 -Total Square Cm 4.75 -Wound/Ulcer Outcome Not Healed -Ulcer Cleansing Rinsed/ Irrigated with Saline -Foul Odor after Cleansing No -Bioengineered Tissue Yes -Type of bioengineered Tissue EPIFIX -Expiration Date 06/27/23 -Product Lot Number [id number] -Percent Used 100 -Saline Lot Number [id number] -Bleeding Controlled with Pressure -Offloading No -Treatment Response Procedure Tolerated Well [See Physician Procedure note for Specifics] Pain Scale: 0-10 Numeric [Pain] -Is Patient Pain Free? Yes Musculoskeletal: No Tenderness to Palpation of Joints or Extremities, Muscle Wasting, - - Compartments remain soft to palpate bilateral lower extremities Neurological: - - Lack of epicritic sensation to light touch bilateral lower extremities Psych/Mental Status: Normal Affect, Appropriate Debridement Note Post-Debridement Measurements/Treatment WC - Nurse 2 - General Ulcer CM Notes Start: 11/28/18 11:03 Freq: Status: Active Protocol: Activity Type Activity Date Activity User E-Sign Co-Sign Detail Recorded Client Recorded Date Recorded By Document 11/28/18 11:36 [id number] 11/28/18 11:42 Document 12/05/18 14:18 [id number] 12/05/18 14:22 11/28/18 12/05/18 11:36 14:18 Wound Center Nurse 2 #7 RLat LE -Time 11:36 14:18 -Correct Patient Yes Yes -Correct Side, Site, Position Yes Yes -Correct Procedure Yes Yes -Procedure Performed Yes Yes -Type of Procedure Debridement Debridement -Clinical Debridement Subcutaneous Subcutaneous -Post Debridement Size (cm) - Length 7.8 6.2 -Post Debridement Size (cm) - Width 2.4 2.1 -Post Debridement Size (cm) - Depth 0.7 0.2 -Total Square Cm 18.72 13.02 -Wound/Ulcer Outcome Not Healed Not Healed -Ulcer Cleansing Rinsed/ Rinsed/ Irrigated with Irrigated with Saline Saline -Foul Odor after Cleansing No No -Bioengineered Tissue No Yes -Type of bioengineered Tissue EPIFIX -Expiration Date 06/27/23 -Product Lot Number [id number] -Percent Used 100 -Saline Lot Number [id number] -Bleeding Controlled with Pressure Pressure -Offloading No No -Treatment Response Procedure Procedure Tolerated Well Tolerated Well #5 Posterior LLE -Time 11:37 14:19 -Correct Patient Yes Yes -Correct Side, Site, Position Yes Yes -Correct Procedure Yes Yes -Procedure Performed Yes Yes -Type of Procedure Debridement Debridement -Clinical Debridement Subcutaneous Subcutaneous -Post Debridement Size (cm) - Length 2.5 1.3 -Post Debridement Size (cm) - Width 2 2 -Post Debridement Size (cm) - Depth 0.1 0.2 -Total Square Cm 5.0 2.6 -Wound/Ulcer Outcome Not Healed Not Healed -Ulcer Cleansing Rinsed/ Rinsed/ Irrigated with Irrigated with Saline Saline -Foul Odor after Cleansing No No -Bioengineered Tissue No No -Bleeding Controlled with Pressure Pressure Silver Nitrate Silver Nitrate -Offloading No No -Treatment Response Procedure Procedure Tolerated Well Tolerated Well #3 Right Heel -Time 11:37 14:19 -Correct Patient Yes Yes -Correct Side, Site, Position Yes Yes -Correct Procedure Yes Yes -Procedure Performed Yes Yes -Type of Procedure Debridement Debridement -Clinical Debridement Subcutaneous Subcutaneous -Post Debridement Size (cm) - Length 2 3 -Post Debridement Size (cm) - Width 4.4 4.8 -Post Debridement Size (cm) - Depth 0.2 0.2 -Total Square Cm 8.8 14.4 -Wound/Ulcer Outcome Not Healed Not Healed -Ulcer Cleansing Rinsed/ Rinsed/ Irrigated with Irrigated with Saline Saline -Foul Odor after Cleansing No No -Bioengineered Tissue Yes Yes -Type of bioengineered Tissue EPIFIX EPIFIX -Expiration Date 06/27/23 06/27/23 -Product Lot Number [id number] -Percent Used 100 100 -Saline Lot Number [id number] -Bleeding Controlled with Pressure Pressure -Offloading No No -Treatment Response Procedure Procedure Tolerated Well Tolerated Well #2 Right Lateral Ankle -Time 11:41 14:19 -Correct Patient Yes Yes -Correct Side, Site, Position Yes Yes -Correct Procedure Yes Yes -Procedure Performed Yes Yes -Type of Procedure Debridement Debridement -Clinical Debridement Subcutaneous Subcutaneous -Post Debridement Size (cm) - Length 1.8 2.5 -Post Debridement Size (cm) - Width 1.3 1.9 -Post Debridement Size (cm) - Depth 0.1 0.2 -Total Square Cm 2.34 4.75 -Wound/Ulcer Outcome Not Healed Not Healed -Ulcer Cleansing Rinsed/ Rinsed/ Irrigated with Irrigated with Saline Saline -Foul Odor after Cleansing No No -Bioengineered Tissue No Yes -Type of bioengineered Tissue EPIFIX -Expiration Date 06/27/23 -Product Lot Number [id number] -Percent Used 100 -Saline Lot Number [id number] -Bleeding Controlled with Pressure Pressure -Offloading No No -Treatment Response Procedure Procedure Tolerated Well Tolerated Well Pain Scale: 0-10 Numeric Is Patient Pain Free? Yes Yes Wound debrided: lateral leg Laterality: Left Type of Debridement: Excisional debridement Anesthesia Used: 5% Lidocaine Gel Depth: in the subcutaneous layer Percentage of wound debrided: 100 Instrument Used: #15 blade Tissue Removed: fibrous, devitalized subcutaneous, biofilm, slough Severity: Fat Layer Exposed Amount of bleeding with debridement: Mild Bleeding Controlled with: Pressure Patient tolerated procedure well - Additional Wound Wound debrided: heel Laterality: Right Type of Debridement: Excisional debridement Anesthesia Used: 5% Lidocaine Gel Depth: in the subcutaneous layer Percentage of wound debrided: 100 Instrument Used: #15 blade Tissue Removed: fibrous, devitalized subcutaneous, biofilm, slough Severity: Fat Layer Exposed Amount of bleeding with debridement: Mild Bleeding Controlled with: Pressure Patient tolerated procedure: Patient tolerated procedure well - Additional Wound Wound debrided: lateral leg Laterality: Right Type of Debridement: Excisional debridement Anesthesia Used: 5% Lidocaine Gel Depth: in the subcutaneous layer Percentage of wound debrided: 30 Instrument Used: #15 blade Tissue Removed: fibrous, devitalized subcutaneous, biofilm, slough Severity: Fat Layer Exposed Amount of bleeding with debridement: Mild Bleeding Controlled with: Pressure Patient tolerated procedure: Patient tolerated procedure well - Additional Wound Wound debrided: lateral ankle Laterality: Right Type of Debridement: Excisional debridement Anesthesia Used: 5% Lidocaine Gel Depth: in the subcutaneous layer Percentage of wound debrided: 100 Instrument Used: #15 blade Tissue Removed: fibrous, devitalized subcutaneous, biofilm, slough Severity: Fat Layer Exposed Amount of bleeding with debridement: Mild Bleeding Controlled with: Pressure Patient tolerated procedure: Patient tolerated procedure well Assessment/Plan Active Problems (Last Reviewed 08/13/18 @ 10:19 by Fernando Patterson MD) Ulcer of right lower extremity with fat layer exposed (Chronic) Ulcer of left lower extremity with necrosis of muscle (Chronic) Hypergranulation (Acute) Non-pressure chronic ulcer of left lower leg with fat layer exposed (Chronic) 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) Ulcer of right foot with fat layer exposed (Chronic) previously unstageable pressure ulcer Paralysis (Chronic) Malnutrition (Chronic) Delayed wound healing (Chronic) Edema leg (Chronic) Assessment: Right lateral ankle unstageable pressure ulcer, no cellulitis. Fat layer exposed now. Right lateral leg ulcer, fat layer exposed. refractory osteomyelitis calcaneus, right. Right heel unstageable pressure ulcer, no cellulitis. fat layer exposed now. Left leg ulcer fat layer exposed (lateral). Peripheral vascular disease with rest pain. Other comorbidities. Delayed healing. Malnutrition. Paralysis and gait impairment with wheelchair use Plan: I reviewed and discussed his case today. The advance wound care product remains intact. Debridement and a subcutaneous excisional manner was performed bilateral lower extremity is as noted in the clinical panel. Advanced wound care product, epi fix was applied to the right heel, right ankle and right leg. This was secured in place with a wound veil and Steri-Strips. Verbal consent was obtained prior to applying this. He tolerated this well. Juani was applied to left lateral leg ulcer sites. Debridement on the left leg was performed with a 15 blade scalpel and additional silver nitrate was applied to reduce the hyper granulation tissue prior to Juani application. He was advised to keep this dressing clean, dry, and intact until follow-up next week. His home health will be contacted with this plan. This is medically necessary to optimize healing. Today, a secondary dressing was applied with additional Tubigrip for continued edema management. He was advised to keep these clean, dry, and intact until follow-up next week. This will be monitored very closely and there does not appear to be an infection. He had recent noninvasive vascular studies performed which demonstrated noncompressible vessels in which ankle-brachial indices were not calculated. This is consistent with rest pain as well as multisegmental occlusive disease and vessel calcification. He did go for consultation with Dr. De Anda previously who formed an angioplasty to her in which intervention options were not identified. It is noted he does have perfusion opportunities available to the lower extremity on the right side. His labs were updated and discussed in his white blood cell count is 6.0, sedimentation rate 14, and hemoglobin A1c 5.8%. His updated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 x-rays do not demonstrate osseous destruction, periosteal reaction, soft tissue emphysema, acute fracture dislocation, or foreign body. Vessel calcification is seen on plain x-ray consistent with vessel disease. It is noted he completed a 6-week course of IV antibiotics and infectious disease has also been following him closely. He had a previous MRI which demonstrated mild marrow edema to the left calcaneus and lateral ankle consistent with osteomyelitis; the adjacent ulcer site have healed. He also had previous MRI which demonstrated these same findings to right calcaneus with adjacent ongoing delayed healing ulcer; this is the area of concern for refractory osteomyelitis at this time. Due to delayed healing, pain, and continued deep tissue exposure this is consistent with chronic osteomyelitis. I recommend hyperbaric oxygen therapy to optimize healing; this is medically necessary to optimize healing. It is noted his ejection fraction is 65%. The benefits, risks, complications, anticipated healing time and management were discussed in detail again today and he is demonstrated significant improvement throughout the course of his care here at the wound healing center. I answered all his questions. He understands that he is at significant risk for limb loss and our goal at this time is to control any infectious process and establish a clear level of perfusion. To continue with nutritional supplementation, Fred. To return to clinic in 1 week for physician reevaluation or call sooner if he has any questions or concerns.
--- NOTE | 2018-12-05 15:15 | PN.PCM_ITS ---
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 Current Visit: Yes Code(s): L97.922 - Non-pressure chronic ulcer of unspecified part of left lower leg with fat layer exposed (2) Ulcer of right lower extremity with fat layer exposed Status: Chronic Current Visit: Yes Code(s): L97.912 - Non-pressure chronic ulcer of unspecified part of right lower leg with fat layer exposed (3) Chronic refractory osteomyelitis of right foot Status: Chronic Current Visit: Yes Code(s): M86.671 - Other chronic osteomyelitis,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 (4) Ulcer of right foot with fat layer exposed Status: Chronic Current Visit: Yes Code(s): L97.512 - Non-pressure chronic ulcer of other part of right foot with fat layer exposed Comment: previously unstageable pressure ulcer (5) Paralysis Status: Chronic Current Visit: Yes Code(s): G83.9 - Paralytic syndrome, un specified (6) Malnutrition Status: Chronic Current Visit: Yes Code(s): E46 - Unspecified protein-calorie malnutrition (7) Delayed wound healing Status: Chronic Current Visit: Yes Code(s): T14.8XXD - Other injury of unspecified body region, subsequent encounter (8) Edema leg Status: Chronic Current Visit: Yes Code(s): R60.0 - Localized edema (9) Hypergranulation Status: Acute Current Visit: Yes Code(s): L92.9 - Granulomatous disorder of the skin and subcutaneous tissue, unspecified Type of Wound Date of Service: 12/05/18 Chief Complaint: 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 Ulcer with fat tissue exposed left leg, right leg, right ankle. Ulcer right heel with fat and fascial layer exposed. Previously medically treated osteomyelitis. Paraplegia History of Wound: This 83-year-old male with multiple comorbidities was seen at the wound healing center for pressure ulcers to bilateral lower extremities. He recently had versa jet debridement in the operating room with application of advanced wound care products including amniofill and epicord to the left leg as well as the right leg, ankle, and heel. He also recently completed a vascular surgery evaluation with Dr. De Anda and an Angio without any identifiable intervention noted. He denies fever, chill, nausea, vomiting. He is a paraplegic and presents in a wheelchair. He continues to take Fred supplementation. He did obtain bilateral donut offloading pillows and this helps keep pressure off the sites. He continues hyperbaric oxygen therapy. He is with his today. Progress of Wound: Improving - Physical Exam Vital Signs Temp Pulse Resp BP 97.9 F 61 18 135/61 H 12/05/18 11:42 12/05/18 11:42 12/05/18 11:42 12/05/18 11:42 General: Alert, Oriented x3, Cooperative Extremities: No cyanosis, Capillary Refill Less than 3 Seconds, No Calf Tenderness, Diminished Peripheral Pulses, Edema - Mild bilateral lower extremities, - - Paralysis bilateral lower extremities Skin: Ulcer/ Wound - No purulence, erythema, streaking, odor, or infection or necrosis bilateral lower extremities. There is no exposed bone capsule bilateral. There is hyper granulation tissue to the lateral ulcer on the left leg. All ulcer sites in the right side have improved granulation tissue in the central portion of the right lateral leg cluster site is fully epithelialized Wound Measurements and Assessment WC - Nurse 1 - General Ulcer Measurement Start: 11/28/18 11:03 Freq: Status: Active Protocol: Activity Type Activity Date Activity User E-Sign Co-Sign Detail Recorded Client Recorded Date Recorded By Document 12/05/18 13:44 DV [id number] 12/05/18 14:04 DV 12/05/18 13:44 Wound Center Nurse 1 [Ulcer Assessment] #7 RLat LE -Combined with other wound No -Current Size (cm) - Length 6.2 -Current Size (cm) - Width 2.0 -Current Size (cm) - Depth 0.2 -Total Square Cm 12.40 -Photo Taken No -Epithelialization None Present -Tunneling No -Undermining/Tunneling No -Circular Undermining No -Wound Margin Indistinct, Non -Visible -Granulation Amt Small (1-33%) -Granulation Quality Red -Slough/Fibrin Yes -Necrosis Amt Medium (34-66%) -Necrotic Tissue Type Adherent Slough -Structure Exposed None/Limited to Skin Breakdown -Texture (Denisse-wound Skin Appearance) Assessed Scarring -Moisture (Denisse-wound Skin Appearance Assessed ) Weeping -Color (Denisse-wound Skin Appearance) No Abnormality Assessed -Temperature (Dneisse-wound Skin No Abnormality Appearance) (Pt Warm) -Tenderness on Palpation (Denisse-wound No Skin Appearance) -Ulcer Cleansing Rinsed/ Irrigated with Saline -Foul Odor after Cleansing No -Anesthetic Used 5% Lidocaine Gel #5 Posterior LLE -Combined with other wound No -Current Size (cm) - Length 1.2 -Current Size (cm) - Width 2.0 -Current Size (cm) - Depth 0.2 -Total Square Cm 2.40 -Photo Taken No -Epithelialization None Present -Tunneling No -Undermining/Tunneling No -Circular Undermining No -Exudate Amt Small -Exudate Type Serous -Wound Margin Indistinct, Non -Visible -Granulation Amt Large (67-100%) -Granulation Quality Hyper- granulation -Slough/Fibrin Yes -Necrosis Amt Small (1-33%) -Necrotic Tissue Type Adherent Slough -Structure Exposed None/Limited to Skin Breakdown -Texture (Denisse-wound Skin Appearance) Assessed Scarring -Moisture (Denisse-wound Skin Appearance Assessed ) Weeping -Color (Denisse-wound Skin Appearance) No Abnormality Assessed -Temperature (Denisse-wound Skin No Abnormality Appearance) (Pt Warm) -Tenderness on Palpation (Denisse-wound No Skin Appearance) -Ulcer Cleansing Rinsed/ Irrigated with Saline -Foul Odor after Cleansing No -Anesthetic Used 5% Lidocaine Gel #3 Right Heel -Combined with other wound No -Current Size (cm) - Length 3.0 -Current Size (cm) - Width 4.7 -Current Size (cm) - Depth 0.2 -Total Square Cm 14.10 -Photo Taken No -Epithelialization Small 1-33% -Tunneling No -Undermining/Tunneling No -Circular Undermining No -Wound Margin Indistinct, Non -Visible -Granulation Amt Small (1-33%) -Granulation Quality Red -Slough/Fibrin Yes -Necrosis Amt Small (1-33%) -Necrotic Tissue Type Adherent Slough -Structure Exposed None/Limited to Skin Breakdown -Texture (Denisse-wound Skin Appearance) Assessed Scarring -Moisture (Denisse-wound Skin Appearance Assessed ) Weeping -Color (Denisse-wound Skin Appearance) Assessed Erythema -Temperature (Denisse-wound Skin No Abnormality Appearance) (Pt Warm) -Tenderness on Palpation (Denisse-wound No Skin Appearance) -Ulcer Cleansing Rinsed/ Irrigated with Saline -Foul Odor after Cleansing No -Anesthetic Used 5% Lidocaine Gel #2 Right Lateral Ankle -Combined with other wound No -Current Size (cm) - Length 2.5 -Current Size (cm) - Width 1.8 -Current Size (cm) - Depth 0.2 -Total Square Cm 4.50 -Photo Taken No -Epithelialization Small 1-33% -Tunneling No -Undermining/Tunneling No -Circular Undermining No -Exudate Amt Small -Exudate Type Serosanguineous -Wound Margin Indistinct, Non -Visible -Granulation Amt Small (1-33%) -Granulation Quality Pale Red -Slough/Fibrin Yes -Necrosis Amt Medium (34-66%) -Necrotic Tissue Type Adherent Slough -Structure Exposed None/Limited to Skin Breakdown -Texture (Denisse-wound Skin Appearance) Assessed Scarring -Moisture (Denisse-wound Skin Appearance Assessed ) Weeping -Color (Denisse-wound Skin Appearance) No Abnormality Assessed -Temperature (Denisse-wound Skin No Abnormality Appearance) (Pt Warm) -Ulcer Cleansing Rinsed/ Irrigated with Saline -Foul Odor after Cleansing No -Anesthetic Used 5% Lidocaine Gel [Edema Assessment] -Lower Limb Edema Present No WC - Nurse 2 - General Ulcer CM Notes Start: 11/28/18 11:03 Freq: Status: Active Protocol: Activity Type Activity Date Activity User E-Sign Co-Sign Detail Recorded Client Recorded Date Recorded By Document 12/05/18 14:18 [id number] 12/05/18 14:22 12/05/18 14:18 Wound Center Nurse 2 [Procedure/Treatment] #7 RLat LE -Time 14:18 -Correct Patient Yes -Correct Side, Site, Position Yes -Correct Procedure Yes -Procedure Performed Yes -Type of Procedure Debridement -Clinical Debridement Subcutaneous -Post Debridement Size (cm) - Length 6.2 -Post Debridement Size (cm) - Width 2.1 -Post Debridement Size (cm) - Depth 0.2 -Total Square Cm 13.02 -Wound/Ulcer Outcome Not Healed -Ulcer Cleansing Rinsed/ Irrigated with Saline -Foul Odor after Cleansing No -Bioengineered Tissue Yes -Type of bioengineered Tissue EPIFIX -Expiration Date 06/27/23 -Product Lot Number [id number] -Percent Used 100 -Saline Lot Number [id number] -Bleeding Controlled with Pressure -Offloading No -Treatment Response Procedure Tolerated Well #5 Posterior LLE -Time 14:19 -Correct Patient Yes -Correct Side, Site, Position Yes -Correct Procedure Yes -Procedure Performed Yes -Type of Procedure Debridement -Clinical Debridement Subcutaneous -Post Debridement Size (cm) - Length 1.3 -Post Debridement Size (cm) - Width 2 -Post Debridement Size (cm) - Depth 0.2 -Total Square Cm 2.6 -Wound/Ulcer Outcome Not Healed -Ulcer Cleansing Rinsed/ Irrigated with Saline -Foul Odor after Cleansing No -Bioengineered Tissue No -Bleeding Controlled with Pressure Silver Nitrate -Offloading No -Treatment Response Procedure Tolerated Well #3 Right Heel -Time 14:19 -Correct Patient Yes -Correct Side, Site, Position Yes -Correct Procedure Yes -Procedure Performed Yes -Type of Procedure Debridement -Clinical Debridement Subcutaneous -Post Debridement Size (cm) - Length 3 -Post Debridement Size (cm) - Width 4.8 -Post Debridement Size (cm) - Depth 0.2 -Total Square Cm 14.4 -Wound/Ulcer Outcome Not Healed -Ulcer Cleansing Rinsed/ Irrigated with Saline -Foul Odor after Cleansing No -Bioengineered Tissue Yes -Type of bioengineered Tissue EPIFIX -Expiration Date 06/27/23 -Product Lot Number [id number] -Percent Used 100 -Saline Lot Number [id number] -Bleeding Controlled with Pressure -Offloading No -Treatment Response Procedure Tolerated Well #2 Right Lateral Ankle -Time 14:19 -Correct Patient Yes -Correct Side, Site, Position Yes -Correct Procedure Yes -Procedure Performed Yes -Type of Procedure Debridement -Clinical Debridement Subcutaneous -Post Debridement Size (cm) - Length 2.5 -Post Debridement Size (cm) - Width 1.9 -Post Debridement Size (cm) - Depth 0.2 -Total Square Cm 4.75 -Wound/Ulcer Outcome Not Healed -Ulcer Cleansing Rinsed/ Irrigated with Saline -Foul Odor after Cleansing No -Bioengineered Tissue Yes -Type of bioengineered Tissue EPIFIX -Expiration Date 06/27/23 -Product Lot Number [id number] -Percent Used 100 -Saline Lot Number [id number] -Bleeding Controlled with Pressure -Offloading No -Treatment Response Procedure Tolerated Well [See Physician Procedure note for Specifics] Pain Scale: 0-10 Numeric [Pain] -Is Patient Pain Free? Yes Musculoskeletal: No Tenderness to Palpation of Joints or Extremities, Muscle Wasting, - - Compartments remain soft to palpate bilateral lower extremities Neurological: - - Lack of epicritic sensation to light touch bilateral lower extremities Psych/Mental Status: Normal Affect, Appropriate Debridement Note Post-Debridement Measurements/Treatment WC - Nurse 2 - General Ulcer CM Notes Start: 11/28/18 11:03 Freq: Status: Active Protocol: Activity Type Activity Date Activity User E-Sign Co-Sign Detail Recorded Client Recorded Date Recorded By Document 11/28/18 11:36 [id number] 11/28/18 11:42 Document 12/05/18 14:18 [id number] 12/05/18 14:22 11/28/18 12/05/18 11:36 14:18 Wound Center Nurse 2 #7 RLat LE -Time 11:36 14:18 -Correct Patient Yes Yes -Correct Side, Site, Position Yes Yes -Correct Procedure Yes Yes -Procedure Performed Yes Yes -Type of Procedure Debridement Debridement -Clinical Debridement Subcutaneous Subcutaneous -Post Debridement Size (cm) - Length 7.8 6.2 -Post Debridement Size (cm) - Width 2.4 2.1 -Post Debridement Size (cm) - Depth 0.7 0.2 -Total Square Cm 18.72 13.02 -Wound/Ulcer Outcome Not Healed Not Healed -Ulcer Cleansing Rinsed/ Rinsed/ Irrigated with Irrigated with Saline Saline -Foul Odor after Cleansing No No -Bioengineered Tissue No Yes -Type of bioengineered Tissue EPIFIX -Expiration Date 06/27/23 -Product Lot Number [id number] -Percent Used 100 -Saline Lot Number [id number] -Bleeding Controlled with Pressure Pressure -Offloading No No -Treatment Response Procedure Procedure Tolerated Well Tolerated Well #5 Posterior LLE -Time 11:37 14:19 -Correct Patient Yes Yes -Correct Side, Site, Position Yes Yes -Correct Procedure Yes Yes -Procedure Performed Yes Yes -Type of Procedure Debridement Debridement -Clinical Debridement Subcutaneous Subcutaneous -Post Debridement Size (cm) - Length 2.5 1.3 -Post Debridement Size (cm) - Width 2 2 -Post Debridement Size (cm) - Depth 0.1 0.2 -Total Square Cm 5.0 2.6 -Wound/Ulcer Outcome Not Healed Not Healed -Ulcer Cleansing Rinsed/ Rinsed/ Irrigated with Irrigated with Saline Saline -Foul Odor after Cleansing No No -Bioengineered Tissue No No -Bleeding Controlled with Pressure Pressure Silver Nitrate Silver Nitrate -Offloading No No -Treatment Response Procedure Procedure Tolerated Well Tolerated Well #3 Right Heel -Time 11:37 14:19 -Correct Patient Yes Yes -Correct Side, Site, Position Yes Yes -Correct Procedure Yes Yes -Procedure Performed Yes Yes -Type of Procedure Debridement Debridement -Clinical Debridement Subcutaneous Subcutaneous -Post Debridement Size (cm) - Length 2 3 -Post Debridement Size (cm) - Width 4.4 4.8 -Post Debridement Size (cm) - Depth 0.2 0.2 -Total Square Cm 8.8 14.4 -Wound/Ulcer Outcome Not Healed Not Healed -Ulcer Cleansing Rinsed/ Rinsed/ Irrigated with Irrigated with Saline Saline -Foul Odor after Cleansing No No -Bioengineered Tissue Yes Yes -Type of bioengineered Tissue EPIFIX EPIFIX -Expiration Date 06/27/23 06/27/23 -Product Lot Number [id number] -Percent Used 100 100 -Saline Lot Number [id number] -Bleeding Controlled with Pressure Pressure -Offloading No No -Treatment Response Procedure Procedure Tolerated Well Tolerated Well #2 Right Lateral Ankle -Time 11:41 14:19 -Correct Patient Yes Yes -Correct Side, Site, Position Yes Yes -Correct Procedure Yes Yes -Procedure Performed Yes Yes -Type of Procedure Debridement Debridement -Clinical Debridement Subcutaneous Subcutaneous -Post Debridement Size (cm) - Length 1.8 2.5 -Post Debridement Size (cm) - Width 1.3 1.9 -Post Debridement Size (cm) - Depth 0.1 0.2 -Total Square Cm 2.34 4.75 -Wound/Ulcer Outcome Not Healed Not Healed -Ulcer Cleansing Rinsed/ Rinsed/ Irrigated with Irrigated with Saline Saline -Foul Odor after Cleansing No No -Bioengineered Tissue No Yes -Type of bioengineered Tissue EPIFIX -Expiration Date 06/27/23 -Product Lot Number [id number] -Percent Used 100 -Saline Lot Number [id number] -Bleeding Controlled with Pressure Pressure -Offloading No No -Treatment Response Procedure Procedure Tolerated Well Tolerated Well Pain Scale: 0-10 Numeric Is Patient Pain Free? Yes Yes Wound debrided: lateral leg Laterality: Left Type of Debridement: Excisional debridement Anesthesia Used: 5% Lidocaine Gel Depth: in the subcutaneous layer Percentage of wound debrided: 100 Instrument Used: #15 blade Tissue Removed: fibrous, devitalized subcutaneous, biofilm, slough Severity: Fat Layer Exposed Amount of bleeding with debridement: Mild Bleeding Controlled with: Pressure Patient tolerated procedure well - Additional Wound Wound debrided: heel Laterality: Right Type of Debridement: Excisional debridement Anesthesia Used: 5% Lidocaine Gel Depth: in the subcutaneous layer Percentage of wound debrided: 100 Instrument Used: #15 blade Tissue Removed: fibrous, devitalized subcutaneous, biofilm, slough Severity: Fat Layer Exposed Amount of bleeding with debridement: Mild Bleeding Controlled with: Pressure Patient tolerated procedure: Patient tolerated procedure well - Additional Wound Wound debrided: lateral leg Laterality: Right Type of Debridement: Excisional debridement Anesthesia Used: 5% Lidocaine Gel Depth: in the subcutaneous layer Percentage of wound debrided: 30 Instrument Used: #15 blade Tissue Removed: fibrous, devitalized subcutaneous, biofilm, slough Severity: Fat Layer Exposed Amount of bleeding with debridement: Mild Bleeding Controlled with: Pressure Patient tolerated procedure: Patient tolerated procedure well - Additional Wound Wound debrided: lateral ankle Laterality: Right Type of Debridement: Excisional debridement Anesthesia Used: 5% Lidocaine Gel Depth: in the subcutaneous layer Percentage of wound debrided: 100 Instrument Used: #15 blade Tissue Removed: fibrous, devitalized subcutaneous, biofilm, slough Severity: Fat Layer Exposed Amount of bleeding with debridement: Mild Bleeding Controlled with: Pressure Patient tolerated procedure: Patient tolerated procedure well Assessment/Plan Active Problems (Last Reviewed 08/13/18 @ 10:19 by Fernando Patterson MD) Ulcer of right lower extremity with fat layer exposed (Chronic) Ulcer of left lower extremity with necrosis of muscle (Chronic) Hypergranulation (Acute) Non-pressure chronic ulcer of left lower leg with fat layer exposed (Chronic) 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) Ulcer of right foot with fat layer exposed (Chronic) previously unstageable pressure ulcer Paralysis (Chronic) Malnutrition (Chronic) Delayed wound healing (Chronic) Edema leg (Chronic) Assessment: Right lateral ankle unstageable pressure ulcer, no cellulitis. Fat layer exposed now. Right lateral leg ulcer, fat layer exposed. refractory osteomyelitis calcaneus, right. Right heel unstageable pressure ulcer, no cellulitis. fat layer exposed now. Left leg ulcer fat layer exposed (lateral). Peripheral vascular disease with rest pain. Other comorbidities. Delayed healing. Malnutrition. Paralysis and gait impairment with wheelchair use Plan: I reviewed and discussed his case today. The advance wound care product remains intact. Debridement and a subcutaneous excisional manner was performed bilateral lower extremity is as noted in the clinical panel. Advanced wound care product, epi fix was applied to the right heel, right ankle and right leg. This was secured in place with a wound veil and Steri-Strips. Verbal consent was obtained prior to applying this. He tolerated this well. Juani was applied to left lateral leg ulcer sites. Debridement on the left leg was performed with a 15 blade scalpel and additional silver nitrate was applied to reduce the hyper granulation tissue prior to Juani application. He was advised to keep this dressing clean, dry, and intact until follow-up next week. His home health will be contacted with this plan. This is medically necessary to optimize healing. Today, a secondary dressing was applied with additional Tubigrip for continued edema management. He was advised to keep these clean, dry, and intact until follow-up next week. This will be monitored very closely and there does not appear to be an infection. He had recent noninvasive vascular studies performed which demonstrated noncompressible vessels in which ankle-brachial indices were not calculated. This is consistent with rest pain as well as multisegmental occlusive disease and vessel calcification. He did go for consultation with Dr. De Anda previously who formed an angioplasty to her in which intervention options were not identified. It is noted he does have perfusion opportunities available to the lower extremity on the right side. His labs were updated and discussed in his white blood cell count is 6.0, sedimentation rate 14, and hemoglobin A1c 5.8%. His updated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 x-rays do not demonstrate osseous destruction, periosteal reaction, soft tissue emphysema, acute fracture dislocation, or foreign body. Vessel calcific ation is seen on plain x-ray consistent with vessel disease. It is noted he completed a 6-week course of IV antibiotics and infectious disease has also been following him closely. He had a previous MRI which demonstrated mild marrow edema to the left calcaneus and lateral ankle consistent with osteomyelitis; the adjacent ulcer site have healed. He also had previous MRI which demonstrated these same findings to right calcaneus with adjacent ongoing delayed healing ulcer; this is the area of concern for refractory osteomyelitis at this time. Due to delayed healing, pain, and continued deep tissue exposure this is consistent with chronic osteomyelitis. I recommend hyperbaric oxygen therapy to optimize healing; this is medically necessary to optimize healing. It is noted his ejection fraction is 65%. The benefits, risks, complications, anticipated healing time and management were discussed in detail again today and he is demonstrated significant improvement throughout the course of his care here at the wound healing center. I answered all his questions. He understands that he is at significant risk for limb loss and our goal at this time is to control any infectious process and establish a clear level of perfusion. To continue with nutritional supplementation, Fred. To return to clinic in 1 week for physician reevaluation or call sooner if he has any questions or concerns.
[2018-12-06 10:36] VITALS: BP 128/63; BP 138/70; PULSE 66; PULSE 69; RESP 16; RESP 18; TEMP 36.6
--- NOTE | 2018-12-06 13:40 | PCM.HBO.PN ---
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 Ulcer with fat tissue exposed left leg, right leg, right ankle. Ulcer right heel with fat and fascial layer exposed. Previously medically treated osteomyelitis. 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 Progress: The patient appears to be tolerating hyperbaric oxygen therapy well. Tolerance of hyperbaric oxygen therapy: Hyperbaric oxygen therapy was administered as per the facility's protocol. The patient tolerated hyperbaric oxygen therapy well, without complaints or complications. Upon emergence from the hyperbaric chamber, the patient's vital signs remained stable. He was discharged in good condition. 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) Ulcer of right foot with fat layer exposed (Chronic) previously unstageable pressure ulcer Paralysis (Chronic) Non-pressure chronic ulcer of other part of right foot with fat layer exposed (Chronic) Other specified peripheral vascular diseases (Chronic) Unstageable pressure ulcer of left foot (Chronic) Unstageable pressure ulcer of right foot (Chronic) Ulcer of left lower extremity with fat layer exposed (Chronic) previously unstageable pressure ulcer Malnutrition (Chronic) Delayed wound healing (Chronic) Edema leg (Chronic) Paralysis (Chronic) Ulcer of right lower extremity with fat layer exposed (Chronic) previously unstageable pressure ulcer Osteomyelitis (Chronic) Chronic pain (Chronic) Nocardia infection (Chronic) 2004, right arm and left leg, 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 Allergies/Adverse Reactions: Allergies Cephalosporins Allergy (Intermediate, Verified 11/06/18 08:58) Laryngospasms Penicillins Allergy (Intermediate, Verified 11/06/18 08:58) Rash IVP DYE Allergy (Uncoded 11/06/18 08:58) Rash Home Medications: Ambulatory Orders Medication Instructions Recorded Losartan Potassium [Cozaar] 12.5 mg PO DAILY 01/12/16 Riboflavin (Vitamin B2) [Vitamin 300 mg PO DAILY@1700 11/10/16 B2] Ascorbic Acid [Vitamin C] 500 mg PO TID 07/05/18 Gabapentin [Neurontin] 600 mg PO TID 07/05/18 [place] Carbonate 150 mg PO TID 07/05/18 Furosemide [Lasix] 40 mg PO DAILY 08/11/18 Magnesium 500 mg PO BID 08/11/18 Sennosides/Docusate Sodium 2 each PO DAILY 08/11/18 [Senna-S Laxative Tablet] traZODone [Desyrel] 25 mg PO QHS 08/11/18 Collagenase [Santyl] 1 applic TOPICAL DAILY tube 08/14/18 Mineral Oil/Petrolatum,White 1 applic TOPICAL BID jar 08/14/18 [Eucerin] Atorvastatin Calcium [Lipitor] 40 mg PO QHS 11/06/18 Carvedilol [Coreg (Beta Krissy)] 3.125 mg PO BID 11/06/18 Clopidogrel Bisulfate [Plavix] 75 mg PO DAILY 11/06/18 Cyclobenzaprine [Flexeril] 2.5 mg PO QHS PRN 11/06/18 Duloxetine Hcl [Cymbalta] 60 mg PO DAILY 11/06/18 Isosorbide Mononitrate 10 mg PO QHS 11/06/18 Morphine Sulfate [Morphine Sulfate 15 mg PO BID 11/06/18 ER] Multivitamins,Ther W-Minerals 1 tablet PO DAILY 11/06/18 [Multivitamin With Minerals] Nutritional Supplement [Fred - 1 packet PO BIDCM 11/06/18 [place]LAVOR] Pyridoxine HCl [Vitamin B-6] 100 mg PO DAILY 11/06/18 Smz/Tmp Ds [Bactrim Ds] 1 tablet PO DAILY 11/06/18 Tamsulosin HCl [Flomax] 0.4 mg PO 1700 11/06/18 Maternal Family History: - - , depression Paternal Family History: - - Offspring Family History: - - 2 children, 4 grand children, 1 great grandchild, all in good health Smoking Status: Never smoker Tobacco Use: Non-smoker Physical Exam Vital Signs Temp Pulse Resp BP 97.8 F 69 18 128/63 H 12/06/18 10:36 12/06/18 10:36 12/06/18 10:36 12/06/18 10:36 General: Alert, Oriented x3, Cooperative, No apparent distress HEENT: Atraumatic, Normocephalic, - - Right ear canal with crusted blood. Tubes visible in both. 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 He was also advised to follow-up with his ENT (he has an appointment scheduled for 2 PM today ) to get clearance before subsequent sessions due to bleeding/crusting noted in his right ear canal. Prior to his session yesterday, he states that he had his ear canal cleaned out due to ? Wax impaction. He denied any pain prior to his session. He also denied any pain during his session which was uneventful. Right tube was however not as visible following session.
[2018-12-07 11:24] VITALS: BP 162/84; BP 164/82; PULSE 65; PULSE 70; RESP 16; RESP 18; TEMP 36.1; TEMP 36.2
--- NOTE | 2018-12-07 15:42 | PCM.HBO.PN ---
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 Ulcer with fat tissue exposed left leg, right leg, right ankle. Ulcer right heel with fat and fascial layer exposed. Previously medically treated osteomyelitis. 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 Progress: The patient appears to be tolerating hyperbaric oxygen therapy well. Today's a session represents the 23rd such session of hyperbaric oxygen therapy. Tolerance of hyperbaric oxygen therapy: Hyperbaric oxygen therapy was administered as per the facility's protocol. The patient tolerated hyperbaric oxygen therapy well, without complaints or complications. Upon emergence from the hyperbaric chamber, the patient's vital signs remained stable. He was discharged in good condition. 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) Ulcer of right foot with fat layer exposed (Chronic) previously unstageable pressure ulcer Paralysis (Chronic) Non-pressure chronic ulcer of other part of right foot with fat layer exposed (Chronic) Other specified peripheral vascular diseases (Chronic) Unstageable pressure ulcer of left foot (Chronic) Unstageable pressure ulcer of right foot (Chronic) Ulcer of left lower extremity with fat layer exposed (Chronic) previously unstageable pressure ulcer Malnutrition (Chronic) Delayed wound healing (Chronic) Edema leg (Chronic) Paralysis (Chronic) Ulcer of right lower extremity with fat layer exposed (Chronic) previously unstageable pressure ulcer Osteomyelitis (Chronic) Chronic pain (Chronic) Nocardia infection (Chronic) 2004, right arm and left leg, 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 Allergies/Adverse Reactions: Allergies Cephalosporins Allergy (Intermediate, Verified 11/06/18 08:58) Laryngospasms Penicillins Allergy (Intermediate, Verified 11/06/18 08:58) Rash IVP DYE Allergy (Uncoded 11/06/18 08:58) Rash Home Medications: Ambulatory Orders Medication Instructions Recorded Losartan Potassium [Cozaar] 12.5 mg PO DAILY 01/12/16 Riboflavin (Vitamin B2) [Vitamin 300 mg PO DAILY@1700 11/10/16 B2] Ascorbic Acid [Vitamin C] 500 mg PO TID 07/05/18 Gabapentin [Neurontin] 600 mg PO TID 07/05/18 [place] Carbonate 150 mg PO TID 07/05/18 Furosemide [Lasix] 40 mg PO DAILY 08/11/18 Magnesium 500 mg PO BID 08/11/18 Sennosides/Docusate Sodium 2 each PO DAILY 08/11/18 [Senna-S Laxative Tablet] traZODone [Desyrel] 25 mg PO QHS 08/11/18 Collagenase [Santyl] 1 applic TOPICAL DAILY tube 08/14/18 Mineral Oil/Petrolatum,White 1 applic TOPICAL BID jar 08/14/18 [Eucerin] Atorvastatin Calcium [Lipitor] 40 mg PO QHS 11/06/18 Carvedilol [Coreg (Beta Krissy)] 3.125 mg PO BID 11/06/18 Clopidogrel Bisulfate [Plavix] 75 mg PO DAILY 11/06/18 Cyclobenzaprine [Flexeril] 2.5 mg PO QHS PRN 11/06/18 Duloxetine Hcl [Cymbalta] 60 mg PO DAILY 11/06/18 Isosorbide Mononitrate 10 mg PO QHS 11/06/18 Morphine Sulfate [Morphine Sulfate 15 mg PO BID 11/06/18 ER] Multivitamins,Ther W-Minerals 1 tablet PO DAILY 11/06/18 [Multivitamin With Minerals] Nutritional Supplement [Fred - 1 packet PO BIDCM 11/06/18 [place]VOR] Pyridoxine HCl [Vitamin B-6] 100 mg PO DAILY 11/06/18 Smz/Tmp Ds [Bactrim Ds] 1 tablet PO DAILY 11/06/18 Tamsulosin HCl [Flomax] 0.4 mg PO 1700 11/06/18 Maternal Family History: - - , depression Paternal Family History: - - Offspring Family History: - - 2 children, 4 grand children, 1 great grandchild, all in good health Smoking Status: Never smoker Tobacco Use: Non-smoker Physical Exam Vital Signs Temp Pulse Resp BP 97.0 F L 70 16 162/84 H 12/07/18 11:24 12/07/18 11:24 12/07/18 11:24 12/07/18 11:24 General: Alert, Oriented x3, Cooperative, No apparent distress Psych/Mental Status: Normal Affect, Appropriate Assessment/Plan Active Problems (Last Reviewed 08/13/18 @ 10:19 by Fernando Patterson MD) Ulcer of right lower extremity with fat layer exposed (Chronic) Ulcer of left lower extremity with necrosis of muscle (Chronic) Hypergranulation (Acute) 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 He denied any pain prior to his session. He also denied any pain during his session which was uneventful.
[2018-12-10 12:32] VITALS: BP 135/67; BP 144/79; PULSE 59; PULSE 67; RESP 16; RESP 18; TEMP 36.4
--- NOTE | 2018-12-10 17:56 | PCM.HBO.PN ---
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 Ulcer with fat tissue exposed left leg, right leg, right ankle. Ulcer right heel with fat and fascial layer exposed. Previously medically treated osteomyelitis. 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 Progress: The patient appears to be tolerating hyperbaric oxygen therapy well. Today's a session represents the 24th such session of hyperbaric oxygen therapy. Tolerance of hyperbaric oxygen therapy: Hyperbaric oxygen therapy was administered as per the facility's protocol. The patient tolerated hyperbaric oxygen therapy well, without complaints or complications. Upon emergence from the hyperbaric chamber, the patient's vital signs remained stable. He was discharged in good condition. 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) Ulcer of right foot with fat layer exposed (Chronic) previously unstageable pressure ulcer Paralysis (Chronic) Non-pressure chronic ulcer of other part of right foot with fat layer exposed (Chronic) Other specified peripheral vascular diseases (Chronic) Unstageable pressure ulcer of left foot (Chronic) Unstageable pressure ulcer of right foot (Chronic) Ulcer of left lower extremity with fat layer exposed (Chronic) previously unstageable pressure ulcer Malnutrition (Chronic) Delayed wound healing (Chronic) Edema leg (Chronic) Paralysis (Chronic) Ulcer of right lower extremity with fat layer exposed (Chronic) previously unstageable pressure ulcer Osteomyelitis (Chronic) Chronic pain (Chronic) Nocardia infection (Chronic) 2004, right arm and left leg, 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 Allergies/Adverse Reactions: Allergies Cephalosporins Allergy (Intermediate, Verified 11/06/18 08:58) Laryngospasms Penicillins Allergy (Intermediate, Verified 11/06/18 08:58) Rash IVP DYE Allergy (Uncoded 11/06/18 08:58) Rash Home Medications: Ambulatory Orders Medication Instructions Recorded Losartan Potassium [Cozaar] 12.5 mg PO DAILY 01/12/16 Riboflavin (Vitamin B2) [Vitamin 300 mg PO DAILY@1700 11/10/16 B2] Ascorbic Acid [Vitamin C] 500 mg PO TID 07/05/18 Gabapentin [Neurontin] 600 mg PO TID 07/05/18 [place] Carbonate 150 mg PO TID 07/05/18 Furosemide [Lasix] 40 mg PO DAILY 08/11/18 Magnesium 500 mg PO BID 08/11/18 Sennosides/Docusate Sodium 2 each PO DAILY 08/11/18 [Senna-S Laxative Tablet] traZODone [Desyrel] 25 mg PO QHS 08/11/18 Collagenase [Santyl] 1 applic TOPICAL DAILY tube 08/14/18 Mineral Oil/Petrolatum,White 1 applic TOPICAL BID jar 08/14/18 [Eucerin] Atorvastatin Calcium [Lipitor] 40 mg PO QHS 11/06/18 Carvedilol [Coreg (Beta Krissy)] 3.125 mg PO BID 11/06/18 Clopidogrel Bisulfate [Plavix] 75 mg PO DAILY 11/06/18 Cyclobenzaprine [Flexeril] 2.5 mg PO QHS PRN 11/06/18 Duloxetine Hcl [Cymbalta] 60 mg PO DAILY 11/06/18 Isosorbide Mononitrate 10 mg PO QHS 11/06/18 Morphine Sulfate [Morphine Sulfate 15 mg PO BID 11/06/18 ER] Multivitamins,Ther W-Minerals 1 tablet PO DAILY 11/06/18 [Multivitamin With Minerals] Nutritional Supplement [Fred - 1 packet PO BIDCM 11/06/18 [place] FLAVOR] Pyridoxine HCl [Vitamin B-6] 100 mg PO DAILY 11/06/18 Smz/Tmp Ds [Bactrim Ds] 1 tablet PO DAILY 11/06/18 Tamsulosin HCl [Flomax] 0.4 mg PO 1700 11/06/18 Maternal Family History: - - , depression Paternal Family History: - - Offspring Family History: - - 2 children, 4 grand children, 1 great grandchild, all in good health Smoking Status: Never smoker Tobacco Use: Non-smoker Physical Exam Vital Signs Temp Pulse Resp BP 97.6 F L 59 L 18 135/67 H 12/10/18 12:32 12/10/18 12:32 12/10/18 12:32 12/10/18 12:32 General: Alert, Oriented x3, Cooperative, No apparent distress, Well developed, Well nourished HEENT: Atraumatic, PERRLA, EOMI, Normocephalic Lungs: Normal air movement Psych/Mental Status: Normal Affect, Appropriate, Alert and oriented to time, place, person, mood and affect Assessment/Plan Active Problems (Last Reviewed 08/13/18 @ 10:19 by Fernando Patterson MD) Ulcer of right lower extremity with fat layer exposed (Chronic) Ulcer of left lower extremity with necrosis of muscle (Chronic) Hypergranulation (Acute) 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
[2018-12-11 10:29] VITALS: BP 135/59; BP 137/76; PULSE 62; PULSE 64; RESP 16; RESP 18; TEMP 36.4; TEMP 36.8
--- NOTE | 2018-12-11 11:57 | HBO.PN.PCM_ITS ---
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 Ulcer with fat tissue exposed left leg, right leg, right ankle. Ulcer right heel with fat and fascial layer exposed. Previously medically treated osteomyelitis. 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 Progress: The patient appears to be tolerating hyperbaric oxygen therapy well. Today's a session represents the 25th such session of hyperbaric oxygen therapy. Tolerance of hyperbaric oxygen therapy: Hyperbaric oxygen therapy was administered as per the facility's protocol. The patient tolerated hyperbaric oxygen therapy well, without complaints or complications. Upon emergence from the hyperbaric chamber, the patient's vital signs remained stable. He was d ischarged in good condition. 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) Ulcer of right foot with fat layer exposed (Chronic) previously unstageable pressure ulcer Paralysis (Chronic) Non-pressure chronic ulcer of other part of right foot with fat layer exposed (Chronic) Other specified peripheral vascular diseases (Chronic) Unstageable pressure ulcer of left foot (Chronic) Unstageable pressure ulcer of right foot (Chronic) Ulcer of left lower extremity with fat layer exposed (Chronic) previously unstageable pressure ulcer Malnutrition (Chronic) Delayed wound healing (Chronic) Edema leg (Chronic) Paralysis (Chronic) Ulcer of right lower extremity with fat layer exposed (Chronic) previously unstageable pressure ulcer Osteomyelitis (Chronic) Chronic pain (Chronic) Nocardia infection (Chronic) 2004, right arm and left leg, 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 Allergies/Adverse Reactions: Allergies Cephalosporins Allergy (Intermediate, Verified 11/06/18 08:58) Laryngospasms Penicillins Allergy (Intermediate, Verified 11/06/18 08:58) Rash IVP DYE Allergy (Uncoded 11/06/18 08:58) Rash Home Medications: Ambulatory Orders Medication Instructions Recorded Losartan Potassium [Cozaar] 12.5 mg PO DAILY 01/12/16 Riboflavin (Vitamin B2) [Vitamin 300 mg PO DAILY@1700 11/10/16 B2] Ascorbic Acid [Vitamin C] 500 mg PO TID 07/05/18 Gabapentin [Neurontin] 600 mg PO TID 07/05/18 [place] Carbonate 150 mg PO TID 07/05/18 Furosemide [Lasix] 40 mg PO DAILY 08/11/18 Magnesium 500 mg PO BID 08/11/18 Sennosides/Docusate Sodium 2 each PO DAILY 08/11/18 [Senna-S Laxative Tablet] traZODone [Desyrel] 25 mg PO QHS 08/11/18 Collagenase [Santyl] 1 applic TOPICAL DAILY tube 08/14/18 Mineral Oil/Petrolatum,White 1 applic TOPICAL BID jar 08/14/18 [Eucerin] Atorvastatin Calcium [Lipitor] 40 mg PO QHS 11/06/18 Carvedilol [Coreg (Beta Krissy)] 3.125 mg PO BID 11/06/18 Clopidogrel Bisulfate [Plavix] 75 mg PO DAILY 11/06/18 Cyclobenzaprine [Flexeril] 2.5 mg PO QHS PRN 11/06/18 Duloxetine Hcl [Cymbalta] 60 mg PO DAILY 11/06/18 Isosorbide Mononitrate 10 mg PO QHS 11/06/18 Morphine Sulfate [Morphine Sulfate 15 mg PO BID 11/06/18 ER] Multivitamins,Ther W-Minerals 1 tablet PO DAILY 11/06/18 [Multivitamin With Minerals] Nutritional Supplement [Fred - 1 packet PO BIDCM 11/06/18 [place]LAVOR] Pyridoxine HCl [Vitamin B-6] 100 mg PO DAILY 11/06/18 Smz/Tmp Ds [Bactrim Ds] 1 tablet PO DAILY 11/06/18 Tamsulosin HCl [Flomax] 0.4 mg PO 1700 11/06/18 Maternal Family History: - - , depression Paternal Family History: - - Offspring Family History: - - 2 children, 4 grand children, 1 great grandchild, all in good health Smoking Status: Never smoker Tobacco Use: Non-smoker Physical Exam Vital Signs Temp Pulse Resp BP 97.6 F L 64 18 137/76 H 12/11/18 10:29 12/11/18 10:29 12/11/18 10:29 12/11/18 10:29 General: Alert, Oriented x3, Cooperative, No apparent distress, Well developed, Well nourished HEENT: Atraumatic, PERRLA, EOMI, Normocephalic Lungs: Normal air movement Psych/Mental Status: Normal Affect, Appropriate, Alert and oriented to time, place, person, mood and affect Assessment/Plan Active Problems (Last Reviewed 08/13/18 @ 10:19 by Fernando Patterson MD) Ulcer of right lower extremity with fat layer exposed (Chronic) Ulcer of left lower extremity with necrosis of muscle (Chronic) Hypergranulation (Acute) 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
[2018-12-12 14:04] VITALS: BP 115/54; PULSE 65; RESP 18; TEMP 36.4; BMI 24.3
--- NOTE | 2018-12-12 16:17 | PN.PCM_ITS ---
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 Current Visit: Yes Code(s): L97.922 - Non-pressure chronic ulcer of unspecified part of left lower leg with fat layer exposed (2) Ulcer of right lower extremity with fat layer exposed Status: Chronic Current Visit: Yes Code(s): L97.912 - Non-pressure chronic ulcer of unspecified part of right lower leg with fat layer exposed (3) Chronic refractory osteomyelitis of right foot Status: Chronic Current Visit: Yes Code(s): M86.671 - Other chronic osteomyelitis,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 (4) Ulcer of right foot with fat layer exposed Status: Chronic Current Visit: Yes Code(s): L97.512 - Non-pressure chronic ulcer of other part of right foot with fat layer exposed Comment: previously unstageable pressure ulcer (5) Paralysis Status: Chronic Current Visit: Yes Code(s): G83.9 - Paralytic syndrome, un specified (6) Malnutrition Status: Chronic Current Visit: Yes Code(s): E46 - Unspecified protein-calorie malnutrition (7) Delayed wound healing Status: Chronic Current Visit: Yes Code(s): T14.8XXD - Other injury of unspecified body region, subsequent encounter (8) Edema leg Status: Chronic Current Visit: Yes Code(s): R60.0 - Localized edema (9) Hypergranulation Status: Acute Current Visit: Yes Code(s): L92.9 - Granulomatous disorder of the skin and subcutaneous tissue, unspecified Type of Wound Date of Service: 12/12/18 Chief Complaint: 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 Ulcer with fat tissue exposed left leg, right leg, right ankle. Ulcer right heel with fat and fascial layer exposed. Previously medically treated osteomyelitis. Paraplegia History of Wound: This 83-year-old male with multiple comorbidities was seen at the wound healing center for pressure ulcers to bilateral lower extremities. He recently had versa jet debridement in the operating room with application of advanced wound care products including amniofill and epicord to the left leg as well as the right leg, ankle, and heel. He also recently completed a vascular surgery evaluation with Dr. De Anda and an Angio without any identifiable intervention noted. He denies fever, chill, nausea, vomiting. He is a paraplegic and presents in a wheelchair. He continues to take Fred supplementation. He did obtain bilateral donut offloading pillows and this helps keep pressure off the sites. He continues hyperbaric oxygen therapy. He is with his today. Progress of Wound: Improving - Physical Exam Vital Signs Temp Pulse Resp BP 97.5 F L 65 18 115/54 L 12/12/18 14:04 12/12/18 14:04 12/12/18 14:04 12/12/18 14:04 General: Alert, Oriented x3, Cooperative Extremities: No cyanosis, Capillary Refill Less than 3 Seconds, No Calf Tenderness, Diminished Peripheral Pulses, Edema - Mild bilateral lower extremities, - - Paralysis bilateral lower extremities Skin: Ulcer/ Wound - No purulence, erythema, streaking, odor, or infection. The ulcer bed is fibrous. There is hyperpigmentation noted to the distal aspect of the left lateral leg ulcer site. The peripheral skin is hairless and atrophic bilateral lower extremities. No eschar necrosis. Wound Measurements and Assessment WC - Nurse 1 - General Ulcer Measurement Start: 11/28/18 11:03 Freq: Status: Active Protocol: Activity Type Activity Date Activity User E-Sign Co-Sign Detail Recorded Client Recorded Date Recorded By Document 12/12/18 14:04 RB [id number] 12/12/18 14:26 RB 12/12/18 14:04 Wound Center Nurse 1 [Ulcer Assessment] #7 RLat LE -Combined with other wound No -Current Size (cm) - Length 7.9 -Current Size (cm) - Width 2.7 -Current Size (cm) - Depth 0.6 -Total Square Cm 21.33 -Tunneling No -Undermining/Tunneling No -Circular Undermining No -Exudate Amt Small -Exudate Type Serosanguineous -Wound Margin Distinct, Outline Attached -Granulation Amt Large (67-100%) -Granulation Quality [place] Red -Slough/Fibrin Yes -Necrosis Amt Small (1-33%) -Necrotic Tissue Type Adherent Slough -Structure Exposed N/A -Texture (Denisse-wound Skin Appearance) Friable -Moisture (Denisse-wound Skin Appearance Assessed ) -Color (Denisse-wound Skin Appearance) Assessed -Temperature (Denisse-wound Skin No Abnormality Appearance) (Pt Warm) -Tenderness on Palpation (Denisse-wound No Skin Appearance) -Ulcer Cleansing Rinsed/ Irrigated with Saline -Foul Odor after Cleansing No -Anesthetic Used 4% Lidocaine Solution #5 Posterior LLE -Combined with other wound No -Current Size (cm) - Length 2.3 -Current Size (cm) - Width 2 -Current Size (cm) - Depth 0.1 -Total Square Cm 4.6 -Tunneling No -Undermining/Tunneling No -Circular Undermining No -Exudate Amt Large -Exudate Type Serosanguineous -Wound Margin Flat & Intact -Granulation Amt Large (67-100%) -Granulation Quality Red -Slough/Fibrin Yes -Necrosis Amt Small (1-33%) -Necrotic Tissue Type Adherent Slough -Structure Exposed N/A -Texture (Denisse-wound Skin Appearance) Assessed Friable Scarring -Moisture (Denisse-wound Skin Appearance Dry/Scaly ) -Color (Denisse-wound Skin Appearance) Assessed Erythema -Temperature (Denisse-wound Skin No Abnormality Appearance) (Pt Warm) -Tenderness on Palpation (Denisse-wound No Skin Appearance) -Ulcer Cleansing Wound Cleanser -Foul Odor after Cleansing No -Anesthetic Used 4% Lidocaine Solution #3 Right Heel -Combined with other wound No -Current Size (cm) - Length 1.8 -Current Size (cm) - Width 4.9 -Current Size (cm) - Depth 0.3 -Total Square Cm 8.82 -Tunneling No -Undermining/Tunneling No -Circular Undermining No -Exudate Amt Large -Exudate Type Serosanguineous -Wound Margin Flat & Intact -Granulation Amt Medium (34-66%) -Granulation Quality [place] -Slough/Fibrin Yes -Necrosis Amt Medium (34-66%) -Necrotic Tissue Type Adherent Slough -Structure Exposed N/A -Texture (Denisse-wound Skin Appearance) Assessed Callus -Moisture (Denisse-wound Skin Appearance Assessed ) Weeping Dry/Scaly -Color (Denisse-wound Skin Appearance) Assessed -Temperature (Denisse-wound Skin No Abnormality Appearance) (Pt Warm) -Tenderness on Palpation (Denisse-wound No Skin Appearance) -Ulcer Cleansing Wound Cleanser -Foul Odor after Cleansing No -Anesthetic Used 4% Lidocaine Solution #2 Right Lateral Ankle -Combined with other wound No -Current Size (cm) - Length 0.1 -Current Size (cm) - Width 0.1 -Current Size (cm) - Depth 0.1 -Total Square Cm 0.01 -Tunneling No -Undermining/Tunneling No -Circular Undermining No -Exudate Amt Small -Exudate Type Serosanguineous -Wound Margin Flat & Intact -Granulation Amt Medium (34-66%) -Granulation Quality [place] -Slough/Fibrin Yes -Necrosis Amt Medium (34-66%) -Necrotic Tissue Type Adherent Slough -Structure Exposed N/A -Texture (Denisse-wound Skin Appearance) Assessed -Moisture (Denisse-wound Skin Appearance Dry/Scaly ) -Color (Denisse-wound Skin Appearance) Assessed -Temperature (Denisse-wound Skin No Abnormality Appearance) (Pt Warm) -Tenderness on Palpation (Denisse-wound No Skin Appearance) -Ulcer Cleansing Rinsed/ Irrigated with Saline -Foul Odor after Cleansing No -Anesthetic Used 4% Lidocaine Solution [Edema Assessment] -Lower Limb Edema Present Yes -Right Calf (cm) 28 -Right Ankle (cm) 21.2 -Left Calf (cm) 30 -Left Ankle (cm) 23.1 WC - Nurse 2 - General Ulcer CM Notes Start: 11/28/18 11:03 Freq: Status: Active Protocol: Activity Type Activity Date Activity User E-Sign Co-Sign Detail Recorded Client Recorded Date Recorded By Document 12/12/18 14:38 [id number] 12/12/18 14:47 CAMERON 12/12/18 14:38 Wound Center Nurse 2 [Procedure/Treatment] #7 RLat LE -Time 14:39 -Correct Patient Yes -Correct Side, Site, Position Yes -Correct Procedure Yes -Procedure Performed Yes -Type of Procedure Debridement -Clinical Debridement Subcutaneous -Post Debridement Size (cm) - Length 8 -Post Debridement Size (cm) - Width 2.7 -Post Debridement Size (cm) - Depth 0.6 -Total Square Cm 21.6 -Wound/Ulcer Outcome Not Healed -Ulcer Cleansing Rinsed/ Irrigated with Saline -Foul Odor after Cleansing No -Bioengineered Tissue Yes -Type of bioengineered Tissue EPIFIX -Expiration Date 06/27/23 -Product Lot Number [id number] -Percent Used 100 -Saline Lot Number [id number] -Bleeding Controlled with Pressure -Offloading No -Treatment Response Procedure Tolerated Well #5 Posterior LLE -Time 14:39 -Correct Patient Yes -Correct Side, Site, Position Yes -Correct Procedure Yes -Procedure Performed Yes -Type of Procedure Debridement -Clinical Debridement Subcutaneous -Post Debridement Size (cm) - Length 2.4 -Post Debridement Size (cm) - Width 2 -Post Debridement Size (cm) - Depth 0.1 -Total Square Cm 4.8 -Wound/Ulcer Outcome Not Healed -Ulcer Cleansing Rinsed/ Irrigated with Saline -Foul Odor after Cleansing No -Bioengineered Tissue No -Bleeding Controlled with Pressure Silver Nitrate -Offloading No -Treatment Response Procedure Tolerated Well #3 Right Heel -Time 14:44 -Correct Patient Yes -Correct Side, Site, Position Yes -Correct Procedure Yes -Procedure Performed Yes -Type of Procedure Debridement -Clinical Debridement Subcutaneous -Post Debridement Size (cm) - Length 1.8 -Post Debridement Size (cm) - Width 5 -Post Debridement Size (cm) - Depth 0.3 -Total Square Cm 9.0 -Wound/Ulcer Outcome Not Healed -Ulcer Cleansing Rinsed/ Irrigated with Saline -Foul Odor after Cleansing No -Bioengineered Tissue Yes -Type of bioengineered Tissue EPIFIX -Expiration Date 06/27/23 -Product Lot Number [id number] -Percent Used 100 -Saline Lot Number [id number] -Bleeding Controlled with Pressure -Offloading No -Treatment Response Procedure Tolerated Well #2 Right Lateral Ankle -Time 14:45 -Correct Patient Yes -Correct Side, Site, Position Yes -Correct Procedure Yes -Procedure Performed Yes -Type of Procedure Debridement -Clinical Debridement Subcutaneous -Post Debridement Size (cm) - Length 0.2 -Post Debridement Size (cm) - Width 0.3 -Post Debridement Size (cm) - Depth 0.1 -Total Square Cm 0.06 -Wound/Ulcer Outcome Not Healed -Ulcer Cleansing Rinsed/ Irrigated with Saline -Foul Odor after Cleansing No -Bioengineered Tissue Yes -Type of bioengineered Tissue EPIFIX -Expiration Date 06/27/23 -Product Lot Number [id number] -Percent Used 100 -Saline Lot Number [id number] -Bleeding Controlled with Pressure -Offloading No -Treatment Response Procedure Tolerated Well [See Physician Procedure note for Specifics] Pain Scale: 0-10 Numeric [Pain] -Is Patient Pain Free? Yes Musculoskeletal: No Tenderness to Palpation of Joints or Extremities, Muscle Wasting Neurological: - - Lack of epicritic sensation light touch bilateral lower extremities Psych/Mental Status: Normal Affect, Appropriate Debridement Note Post-Debridement Measurements/Treatment WC - Nurse 2 - General Ulcer CM Notes Start: 11/28/18 11:03 Freq: Status: Active Protocol: Activity Type Activity Date Activity User E-Sign Co-Sign Detail Recorded Client Recorded Date Recorded By Document 11/28/18 11:36 [id number] 11/28/18 11:42 Document 12/05/18 14:18 [id number] 12/05/18 14:22 Document 12/12/18 14:38 [id number] 12/12/18 14:47 11/28/18 12/05/18 12/12/18 11:36 14:18 14:38 Wound Center Nurse 2 #7 RLat LE -Time 11:36 14:18 14:39 -Correct Patient Yes Yes Yes -Correct Side, Site, Position Yes Yes Yes -Correct Procedure Yes Yes Yes -Procedure Performed Yes Yes Yes -Type of Procedure Debridement Debridement Debridement -Clinical Debridement Subcutaneous Subcutaneous Subcutaneous -Post Debridement Size (cm) - Length 7.8 6.2 8 -Post Debridement Size (cm) - Width 2.4 2.1 2.7 -Post Debridement Size (cm) - Depth 0.7 0.2 0.6 -Total Square Cm 18.72 13.02 21.6 -Wound/Ulcer Outcome Not Healed Not Healed Not Healed -Ulcer Cleansing Rinsed/ Rinsed/ Rinsed/ Irrigated with Irrigated with Irrigated with Saline Saline Saline -Foul Odor after Cleansing No No No -Bioengineered Tissue No Yes Yes -Type of bioengineered Tissue EPIFIX EPIFIX -Expiration Date 06/27/23 06/27/23 -Product Lot Number [id number] -Percent Used 100 100 -Saline Lot Number [id number] -Bleeding Controlled with Pressure Pressure Pressure -Offloading No No No -Treatment Response Procedure Procedure Procedure Tolerated Well Tolerated Well Tolerated Well #5 Posterior LLE -Time 11:37 14:19 14:39 -Correct Patient Yes Yes Yes -Correct Side, Site, Position Yes Yes Yes -Correct Procedure Yes Yes Yes -Procedure Performed Yes Yes Yes -Type of Procedure Debridement Debridement Debridement -Clinical Debridement Subcutaneous Subcutaneous Subcutaneous -Post Debridement Size (cm) - Length 2.5 1.3 2.4 -Post Debridement Size (cm) - Width 2 2 2 -Post Debridement Size (cm) - Depth 0.1 0.2 0.1 -Total Square Cm 5.0 2.6 4.8 -Wound/Ulcer Outcome Not Healed Not Healed Not Healed -Ulcer Cleansing Rinsed/ Rinsed/ Rinsed/ Irrigated with Irrigated with Irrigated with Saline Saline Saline -Foul Odor after Cleansing No No No -Bioengineered Tissue No No No -Bleeding Controlled with Pressure Pressure Pressure Silver Nitrate Silver Nitrate Silver Nitrate -Offloading No No No -Treatment Response Procedure Procedure Procedure Tolerated Well Tolerated Well Tolerated Well #3 Right Heel -Time 11:37 14:19 14:44 -Correct Patient Yes Yes Yes -Correct Side, Site, Position Yes Yes Yes -Correct Procedure Yes Yes Yes -Procedure Performed Yes Yes Yes -Type of Procedure Debridement Debridement Debridement -Clinical Debridement Subcutaneous Subcutaneous Subcutaneous -Post Debridement Size (cm) - Length 2 3 1.8 -Post Debridement Size (cm) - Width 4.4 4.8 5 -Post Debridement Size (cm) - Depth 0.2 0.2 0.3 -Total Square Cm 8.8 14.4 9.0 -Wound/Ulcer Outcome Not Healed Not Healed Not Healed -Ulcer Cleansing Rinsed/ Rinsed/ Rinsed/ Irrigated with Irrigated with Irrigated with Saline Saline Saline -Foul Odor after Cleansing No No No -Bioengineered Tissue Yes Yes Yes -Type of bioengineered Tissue EPIFIX EPIFIX EPIFIX -Expiration Date 06/27/23 06/27/23 06/27/23 -Product Lot Number [id number] -Percent Used 100 100 100 -Saline Lot Number [id number] -Bleeding Controlled with Pressure Pressure Pressure -Offloading No No No -Treatment Response Procedure Procedure Procedure Tolerated Well Tolerated Well Tolerated Well #2 Right Lateral Ankle -Time 11:41 14:19 14:45 -Correct Patient Yes Yes Yes -Correct Side, Site, Position Yes Yes Yes -Correct Procedure Yes Yes Yes -Procedure Performed Yes Yes Yes -Type of Procedure Debridement Debridement Debridement -Clinical Debridement Subcutaneous Subcutaneous Subcutaneous -Post Debridement Size (cm) - Length 1.8 2.5 0.2 -Post Debridement Size (cm) - Width 1.3 1.9 0.3 -Post Debridement Size (cm) - Depth 0.1 0.2 0.1 -Total Square Cm 2.34 4.75 0.06 -Wound/Ulcer Outcome Not Healed Not Healed Not Healed -Ulcer Cleansing Rinsed/ Rinsed/ Rinsed/ Irrigated with Irrigated with Irrigated with Saline Saline Saline -Foul Odor after Cleansing No No No -Bioengineered Tissue No Yes Yes -Type of bioengineered Tissue EPIFIX EPIFIX -Expiration Date 06/27/23 06/27/23 -Product Lot Number [id number] -Percent Used 100 100 -Saline Lot Number [id number] -Bleeding Controlled with Pressure Pressure Pressure -Offloading No No No -Treatment Response Procedure Procedure Procedure Tolerated Well Tolerated Well Tolerated Well Pain Scale: 0-10 Numeric Is Patient Pain Free? Yes Yes Yes Wound debrided: heel Laterality: Right Type of Debridement: Excisional debridement Anesthesia Used: 5% Lidocaine Gel Depth: in the subcutaneous layer Percentage of wound debrided: 100 Instrument Used: #15 blade Tissue Removed: fibrous, devitalized subcutaneous, biofilm, slough Severity: Fat Layer Exposed Amount of bleeding with debridement: Mild Bleeding Controlled with: Pressure Patient tolerated procedure well - Additional Wound Wound debrided: lateral ankle Laterality: Right Type of Debridement: Excisional debridement Anesthesia Used: 5% Lidocaine Gel Depth: in the subcutaneous layer Percentage of wound debrided: 100 Instrument Used: #15 blade Tissue Removed: fibrous, devitalized subcutaneous, biofilm, slough Severity: Fat Layer Exposed Amount of bleeding with debridement: Mild Bleeding Controlled with: Pressure Patient tolerated procedure: Patient tolerated procedure well - Additional Wound Wound debrided: lateral leg Laterality: Right Type of Debridement: Excisional debridement Anesthesia Used: 5% Lidocaine Gel Depth: in the subcutaneous layer Percentage of wound debrided: 100 Instrument Used: #15 blade Tissue Removed: fibrous, devitalized subcutaneous, biofilm, slough Severity: Fat Layer Exposed Amount of bleeding with debridement: Mild Bleeding Controlled with: Pressure Patient tolerated procedure: Patient tolerated procedure well - Additional Wound Wound debrided: lateral leg Laterality: Left Type of Debridement: Excisional debridement Anesthesia Used: 5% Lidocaine Gel Depth: in the subcutaneous layer Percentage of wound debrided: 100 Instrument Used: #15 blade, - - silver nitrate Tissue Removed: fibrous, devitalized subcutaneous, biofilm, slough Severity: Fat Layer Exposed Amount of bleeding with debridement: Mild Bleeding Controlled with: Pressure Patient tolerated procedure: Patient tolerated procedure well Assessment/Plan Active Problems (Last Reviewed 08/13/18 @ 10:19 by Fernando Patterson MD) Ulcer of right lower extremity with fat layer exposed (Chronic) Ulcer of left lower extremity with necrosis of muscle (Chronic) Hypergranulation (Acute) Non-pressure chronic ulcer of left lower leg with fat layer exposed (Chronic) 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) Ulcer of right foot with fat layer exposed (Chronic) previously unstageable pressure ulcer Paralysis (Chronic) Malnutrition (Chronic) Delayed wound healing (Chronic) Edema leg (Chronic) Assessment: Right lateral ankle unstageable pressure ulcer, no cellulitis. Fat layer exposed now. Right lateral leg ulcer, fat layer exposed. refractory osteomyelitis calcaneus, right. Right heel unstageable pressure ulcer, no cellulitis. fat layer exposed now. Left leg ulcer fat layer exposed (lateral). Peripheral vascular disease with rest pain. Other comorbidities. Delayed healing. Malnutrition. Paralysis and gait impairment with wheelchair use Plan: I reviewed and discussed his case today. The advance wound care product remains intact. Debridement and a subcutaneous excisional manner was performed bilateral lower extremity is as noted in the clinical panel. Advanced wound care product, epi fix was applied to the right heel, right ankle and right leg. This was secured in place with a wound veil and Steri-Strips. Verbal consent was obtained prior to applying this. He tolerated this well. Juani was applied to left lateral leg ulcer site after debridement and application of silver nitrate to address the hyperpigmentation. He was advised to keep this dressing clean, dry, and intact until follow-up next week. His home health will be contacted with this plan. This is medically necessary to optimize healing. Today, a secondary dressing was applied with additional Tubigrip for continued edema management. He was advised to keep these clean, dry, and intact until follow-up next week. This will be monitored very closely and there does not appear to be an infection. He had recent noninvasive vascular studies performed which demonstrated noncompressible vessels in which ankle-brachial indices were not calculated. This is consistent with rest pain as well as multisegmental occlusive disease and vessel calcification. He did go for consultation with Dr. De Anda previously who formed an angioplasty to her in which intervention options were not identified. It is noted he does have perfusion opportunities available to the lower extremity on the right side. His labs were updated previously and discussed in his white blood cell count is 6.0, sedimentation rate 14, and hemoglobin A1c 5.8%. His updated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 x-rays do not demonstrate osseous destruction, periosteal reaction, soft tissue emphysema, acute fracture dislocation, or foreign body. Vessel calcification is seen on plain x-ray consistent with vessel disease. It is noted he completed a 6-week course of IV antibiotics and infectious disease has also been following him closely. He had a previous MRI which demonstrated mild marrow edema to the left calcaneus and lateral ankle consistent with osteomyelitis; the adjacent ulcer site have healed. He also had previous MRI which demonstrated these same findings to right calcaneus with adjacent ongoing delayed healing ulcer; this is the area of concern for refractory osteomyelitis at this time. Due to delayed healing, pain, and continued deep tissue exposure this is consistent with chronic osteomyelitis. I recommend hyperbaric oxygen therapy to optimize healing; this is medically necessary to optimize healing. It is noted his ejection fraction is 65%. The benefits, risks, complications, anticipated healing time and management were discussed in detail again today and he is demonstrated significant improvement throughout the course of his care here at the wound healing center. I answered all his questions. He understands that he is at significant risk for limb loss and our goal at this time is to control any infectious process and establish a clear level of perfusion. To continue with nutritional supplementation, Fred. To return to clinic in 1 week for physician reevaluation or call sooner if he has any questions or concerns.
--- NOTE | 2018-12-13 10:59 | HBO.PN.PCM_ITS ---
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 Ulcer with fat tissue exposed left leg, right leg, right ankle. Ulcer right heel with fat and fascial layer exposed. Previously medically treated osteomyelitis. 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 Progress: The patient appears to be tolerating hyperbaric oxygen therapy well. Today's a session represents the 26th such session of hyperbaric oxygen therapy. Tolerance of hyperbaric oxygen therapy: Hyperbaric oxygen therapy was administered as per the facility's protocol. The patient tolerated hyperbaric oxygen therapy well, without complaints or complications. Upon emergence from the hyperbaric chamber, the patient's vital signs remained stable. He was discharged in good condition. 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) Ulcer of right foot with fat layer exposed (Chronic) previously unstageable pressure ulcer Paralysis (Chronic) Non-pressure chronic ulcer of other part of right foot with fat layer exposed (Chronic) Other specified peripheral vascular diseases (Chronic) Unstageable pressure ulcer of left foot (Chronic) Unstageable pressure ulcer of right foot (Chronic) Ulcer of left lower extremity with fat layer exposed (Chronic) previously unstageable pressure ulcer Malnutrition (Chronic) Delayed wound healing (Chronic) Edema leg (Chronic) Paralysis (Chronic) Ulcer of right lower extremity with fat layer exposed (Chronic) previously unstageable pressure ulcer Osteomyelitis (Chronic) Chronic pain (Chronic) Nocardia infection (Chronic) 2004, right arm and left leg, 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 Allergies/Adverse Reactions: Allergies Cephalosporins Allergy (Intermediate, Verified 11/06/18 08:58) Laryngospasms Penicillins Allergy (Intermediate, Verified 11/06/18 08:58) Rash IVP DYE Allergy (Uncoded 11/06/18 08:58) Rash Home Medications: Ambulatory Orders Medication Instructions Recorded Losartan Potassium [Cozaar] 12.5 mg PO DAILY 01/12/16 Riboflavin (Vitamin B2) [Vitamin 300 mg PO DAILY@1700 11/10/16 B2] Ascorbic Acid [Vitamin C] 500 mg PO TID 07/05/18 Gabapentin [Neurontin] 600 mg PO TID 07/05/18 [place] Carbonate 150 mg PO TID 07/05/18 Furosemide [Lasix] 40 mg PO DAILY 08/11/18 Magnesium 500 mg PO BID 08/11/18 Sennosides/Docusate Sodium 2 each PO DAILY 08/11/18 [Senna-S Laxative Tablet] traZODone [Desyrel] 25 mg PO QHS 08/11/18 Collagenase [Santyl] 1 applic TOPICAL DAILY tube 08/14/18 Mineral Oil/Petrolatum,White 1 applic TOPICAL BID jar 08/14/18 [Eucerin] Atorvastatin Calcium [Lipitor] 40 mg PO QHS 11/06/18 Carvedilol [Coreg (Beta Krissy)] 3.125 mg PO BID 11/06/18 Clopidogrel Bisulfate [Plavix] 75 mg PO DAILY 11/06/18 Cyclobenzaprine [Flexeril] 2.5 mg PO QHS PRN 11/06/18 Duloxetine Hcl [Cymbalta] 60 mg PO DAILY 11/06/18 Isosorbide Mononitrate 10 mg PO QHS 11/06/18 Morphine Sulfate [Morphine Sulfate 15 mg PO BID 11/06/18 ER] Multivitamins,Ther W-Minerals 1 tablet PO DAILY 11/06/18 [Multivitamin With Minerals] Nutritional Supplement [Fred - 1 packet PO BIDCM 11/06/18 [place] FLAVOR] Pyridoxine HCl [Vitamin B-6] 100 mg PO DAILY 11/06/18 Smz/Tmp Ds [Bactrim Ds] 1 tablet PO DAILY 11/06/18 Tamsulosin HCl [Flomax] 0.4 mg PO 1700 11/06/18 Maternal Family History: - - , depression Paternal Family History: - - Offspring Family History: - - 2 children, 4 grand children, 1 great grandchild, all in good health Smoking Status: Never smoker Tobacco Use: Non-smoker Physical Exam Vital Signs Temp Pulse Resp BP 97.5 F L 65 18 115/54 L 12/12/18 14:04 12/12/18 14:04 12/12/18 14:04 12/12/18 14:04 General: Alert, Oriented x3, Cooperative HEENT: Atraumatic, TM's Clear Lungs: Clear to auscultation, Normal air movement Cardiovascular: Regular rate, Regular Rhythm, Murmur Psych/Mental Status: Normal Affect, Appropriate, Alert and oriented to time, place, person, mood and affect Assessment/Plan Active Problems (Last Reviewed 08/13/18 @ 10:19 by Fernando Patterson MD) Ulcer of right lower extremity with fat layer exposed (Chronic) Ulcer of left lower extremity with necrosis of muscle (Chronic) Hypergranulation (Acute) 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
[2018-12-13 12:21] VITALS: BP 139/80; BP 142/70; PULSE 70; PULSE 79; RESP 16; RESP 18; TEMP 36.6; TEMP 36.8
[2018-12-19 10:04] VITALS: BP 120/65; PULSE 74; RESP 18; TEMP 36; BMI 24.3
--- NOTE | 2018-12-19 11:03 | PCM.WC.PN ---
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 Current Visit: Yes Code(s): L97.922 - Non-pressure chronic ulcer of unspecified part of left lower leg with fat layer exposed (2) Ulcer of right lower extremity with fat layer exposed Status: Chronic Current Visit: Yes Code(s): L97.912 - Non-pressure chronic ulcer of unspecified part of right lower leg with fat layer exposed (3) Chronic refractory osteomyelitis of right foot Status: Chronic Current Visit: Yes Code(s): M86.671 - Other chronic osteomyelitis,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 (4) Ulcer of right foot with fat layer exposed Status: Chronic Current Visit: Yes Code(s): L97.512 - Non-pressure chronic ulcer of other part of right foot with fat layer exposed Comment: previously unstageable pressure ulcer (5) Paralysis Status: Chronic Current Visit: Yes Code(s): G83.9 - Paralytic syndrome, unspecified (6) Malnutrition Status: Chronic Current Visit: Yes Code(s): E46 - Unspecified protein-calorie malnutrition (7) Delayed wound healing Status: Chronic Current Visit: Yes Code(s): T14.8XXD - Other injury of unspecified body region, subsequent encounter (8) Edema leg Status: Chronic Current Visit: Yes Code(s): R60.0 - Localized edema (9) Hypergranulation Status: Acute Current Visit: Yes Code(s): L92.9 - Granulomatous disorder of the skin and subcutaneous tissue, unspecified Type of Wound Chief Complaint: 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 Ulcer with fat tissue exposed left leg, right leg, right ankle. Ulcer right heel with fat and fascial layer exposed. Previously medically treated osteomyelitis. Paraplegia History of Wound: This 83-year-old male with multiple comorbidities was seen at the wound healing center for pressure ulcers to bilateral lower extremities. He previously had versa jet debridement in the operating room with application of advanced wound care products including amniofill and epicord to the left leg as well as the right leg, ankle, and heel. He also recently completed a vascular surgery evaluation with Dr. De Anda and an Angio without any identifiable intervention noted. He denies fever, chill, nausea, vomiting. He is a paraplegic and presents in a wheelchair. He continues to take Frde supplementation. He did obtain bilateral donut offloading pillows and this helps keep pressure off the sites. He continues hyperbaric oxygen therapy. He is with his today. He is sick and has chest congestion is not feeling well today. He had to miss hyperbaric oxygen treatment earlier this week due to his cold. Progress of Wound: Improving - Physical Exam Vital Signs Temp Pulse Resp BP 96.8 F L 74 18 120/65 12/19/18 10:04 12/19/18 10:04 12/19/18 10:04 12/19/18 10:04 General: Alert, Oriented x3, Cooperative Extremities: No cyanosis, Capillary Refill Less than 3 Seconds, No Calf Tenderness, Diminished Peripheral Pulses, Edema - Mild bilateral lower extremities, - - Paralysis bilateral lower extremities Skin: Ulcer/ Wound - No purulence, erythema, streaking, odor, or infection bilateral. There is continued peripheral epithelialization to all sites and the ulcer beds are granular. There is no longer hyper granulation tissue to the left leg ulcer site. The peripheral skin is hairless and atrophic bilateral. Wound Measurements and Assessment WC - Nurse 1 - General Ulcer Measurement Start: 11/28/18 11:03 Freq: Status: Active Protocol: Activity Type Activity Date Activity User E-Sign Co-Sign Detail Recorded Client Recorded Date Recorded By Document 12/19/18 10:04 [facility] [id number] 12/19/18 10:18 [facility] 12/19/18 10:04 Wound Center Nurse 1 [Ulcer Assessment] #7 RLat LE -Current Size (cm) - Length 8.3 -Current Size (cm) - Width 2.3 -Current Size (cm) - Depth 0.6 -Total Square Cm 19.09 -Photo Taken No -Epithelialization Small 1-33% -Tunneling No -Undermining/Tunneling No -Classification - Thickness Full Thickness without Exposed Support Structure -Exudate Amt Medium -Exudate Type Serosanguineous -Wound Margin Flat & Intact -Granulation Amt Medium (34-66%) -Granulation Quality Red -Slough/Fibrin Yes -Necrosis Amt Medium (34-66%) -Necrotic Tissue Type Adherent Slough -Texture (Denisse-wound Skin Appearance) Scarring -Moisture (Denisse-wound Skin Appearance Assessed ) Dry/Scaly -Color (Denisse-wound Skin Appearance) Assessed -Temperature (Denisse-wound Skin No Abnormality Appearance) (Pt Warm) -Tenderness on Palpation (Denisse-wound Yes Skin Appearance) -Ulcer Cleansing Rinsed/ Irrigated with Saline -Foul Odor after Cleansing No -Anesthetic Used 4% Lidocaine Solution #5 Posterior LLE -Current Size (cm) - Length 1.4 -Current Size (cm) - Width 1.3 -Current Size (cm) - Depth 0.1 -Total Square Cm 1.82 -Photo Taken No -Epithelialization None Present -Tunneling No -Undermining/Tunneling No -Classification - Thickness Full Thickness without Exposed Support Structure -Exudate Amt Medium -Exudate Type Serosanguineous -Wound Margin Flat & Intact -Granulation Amt Medium (34-66%) -Granulation Quality Hyper- granulation -Slough/Fibrin Yes -Necrosis Amt Medium (34-66%) -Necrotic Tissue Type Adherent Slough -Texture (Denisse-wound Skin Appearance) Assessed -Moisture (Denisse-wound Skin Appearance Assessed ) Dry/Scaly -Color (Denisse-wound Skin Appearance) Assessed -Temperature (Denisse-wound Skin No Abnormality Appearance) (Pt Warm) -Tenderness on Palpation (Denisse-wound Yes Skin Appearance) -Ulcer Cleansing Rinsed/ Irrigated with Saline -Foul Odor after Cleansing No -Anesthetic Used 4% Lidocaine Solution #3 Right Heel -Current Size (cm) - Length 1.4 -Current Size (cm) - Width 5.0 -Current Size (cm) - Depth 0.1 -Total Square Cm 7.00 -Photo Taken No -Epithelialization None Present -Tunneling No -Undermining/Tunneling No -Circular Undermining No -Classification - Thickness Full Thickness without Exposed Support Structure -Exudate Amt Medium -Exudate Type Serosanguineous -Wound Margin Flat & Intact -Granulation Amt Small (1-33%) -Granulation Quality Red -Slough/Fibrin Yes -Necrosis Amt Large (67-100%) -Necrotic Tissue Type Adherent Slough -Texture (Denisse-wound Skin Appearance) Assessed Scarring -Moisture (Denisse-wound Skin Appearance Assessed ) Dry/Scaly -Color (Denisse-wound Skin Appearance) Assessed Erythema -Temperature (Denisse-wound Skin No Abnormality Appearance) (Pt Warm) -Tenderness on Palpation (Denisse-wound Yes Skin Appearance) -Ulcer Cleansing Rinsed/ Irrigated with Saline -Foul Odor after Cleansing No -Anesthetic Used 4% Lidocaine Solution #2 Right Lateral Ankle -Current Size (cm) - Length 0.1 -Current Size (cm) - Width 0.1 -Current Size (cm) - Depth 0.1 -Total Square Cm 0.01 -Granulation Amt None Present (0 %) -Necrosis Amt Large (67-100%) -Necrotic Tissue Type Eschar [Edema Assessment] -Right Calf (cm) 28.4 -Right Ankle (cm) 24.5 -Left Calf (cm) 28.7 -Left Ankle (cm) 23.2 WC - Nurse 2 - General Ulcer CM Notes Start: 11/28/18 11:03 Freq: Status: Active Protocol: Activity Type Activity Date Activity User E-Sign Co-Sign Detail Recorded Client Recorded Date Recorded By Document 12/19/18 10:39 [facility] [id number] 12/19/18 10:44 [facility] 12/19/18 10:39 Wound Center Nurse 2 [Procedure/Treatment] #7 RLat LE -Time 10:39 -Correct Patient Yes -Correct Side, Site, Position Yes -Correct Procedure Yes -Procedure Performed Yes -Type of Procedure Debridement -Clinical Debridement Subcutaneous -Post Debridement Size (cm) - Length 8.3 -Post Debridement Size (cm) - Width 2.7 -Post Debridement Size (cm) - Depth 0.6 -Total Square Cm 22.41 -Wound/Ulcer Outcome Not Healed -Ulcer Cleansing Rinsed/ Irrigated with Saline -Foul Odor after Cleansing No -Bioengineered Tissue Yes -Type of bioengineered Tissue EPIFIX -Expiration Date 05/27/23 -Product Lot Number [id number] -Percent Used 100 -Saline Lot Number [id number] -Bleeding Controlled with Pressure -Offloading No -Treatment Response Procedure Tolerated Well #5 Posterior LLE -Time 10:40 -Correct Patient Yes -Correct Side, Site, Position Yes -Correct Procedure Yes -Procedure Performed Yes -Type of Procedure Debridement -Clinical Debridement Subcutaneous -Post Debridement Size (cm) - Length 1.5 -Post Debridement Size (cm) - Width 1.3 -Post Debridement Size (cm) - Depth 0.1 -Total Square Cm 1.95 -Wound/Ulcer Outcome Not Healed -Ulcer Cleansing Rinsed/ Irrigated with Saline -Foul Odor after Cleansing No -Bioengineered Tissue Yes -Type of bioengineered Tissue EPIFIX -Expiration Date 05/27/23 -Product Lot Number [id number] -Percent Used 100 -Saline Lot Number [id number] -Bleeding Controlled with Pressure -Offloading No -Treatment Response Procedure Tolerated Well #3 Right Heel -Time 10:40 -Correct Patient Yes -Correct Side, Site, Position Yes -Correct Procedure Yes -Procedure Performed Yes -Type of Procedure Debridement -Clinical Debridement Subcutaneous -Post Debridement Size (cm) - Length 1.5 -Post Debridement Size (cm) - Width 5 -Post Debridement Size (cm) - Depth 0.1 -Total Square Cm 7.5 -Wound/Ulcer Outcome Not Healed -Ulcer Cleansing Rinsed/ Irrigated with Saline -Foul Odor after Cleansing No -Bioengineered Tissue Yes -Type of bioengineered Tissue EPIFIX -Expiration Date 05/27/23 -Product Lot Number [id number] -Percent Used 100 -Saline Lot Number [id number] -Bleeding Controlled with Pressure -Offloading No -Treatment Response Procedure Tolerated Well #2 Right Lateral Ankle -Time 10:41 -Correct Patient Yes -Correct Side, Site, Position Yes -Correct Procedure Yes -Procedure Performed Yes -Type of Procedure Debridement -Clinical Debridement Subcutaneous -Post Debridement Size (cm) - Length 0.2 -Post Debridement Size (cm) - Width 0.2 -Post Debridement Size (cm) - Depth 0.1 -Total Square Cm 0.04 -Wound/Ulcer Outcome Not Healed -Ulcer Cleansing Rinsed/ Irrigated with Saline -Foul Odor after Cleansing No -Bioengineered Tissue Yes -Type of bioengineered Tissue EPIFIX -Expiration Date 05/27/23 -Product Lot Number [id number] -Percent Used 100 -Saline Lot Number [id number] -Bleeding Controlled with Pressure -Offloading No -Treatment Response Procedure Tolerated Well [See Physician Procedure note for Specifics] Pain Scale: 0-10 Numeric [Pain] -Is Patient Pain Free? Yes Musculoskeletal: No Tenderness to Palpation of Joints or Extremities, Muscle Wasting, - - Compartments soft to palpate bilateral lower extremities Neurological: - - Lack of epicritic sensation light touch bilateral lower extremities Psych/Mental Status: Normal Affect, Appropriate Debridement Note Post-Debridement Measurements/Treatment WC - Nurse 2 - General Ulcer CM Notes Start: 11/28/18 11:03 Freq: Status: Active Protocol: Activity Type Activity Date Activity User E-Sign Co-Sign Detail Recorded Client Recorded Date Recorded By Document 11/28/18 11:36 [id number] 11/28/18 11:42 Document 12/05/18 14:18 [id number] 12/05/18 14:22 Document 12/12/18 14:38 [id number] 12/12/18 14:47 Document 12/19/18 10:39 [id number] 12/19/18 10:44 11/28/18 12/05/18 12/12/18 11:36 14:18 14:38 Wound Center Nurse 2 #7 RLat LE -Time 11:36 14:18 14:39 -Correct Patient Yes Yes Yes -Correct Side, Site, Position Yes Yes Yes -Correct Procedure Yes Yes Yes -Procedure Performed Yes Yes Yes -Type of Procedure Debridement Debridement Debridement -Clinical Debridement Subcutaneous Subcutaneous Subcutaneous -Post Debridement Size (cm) - Length 7.8 6.2 8 -Post Debridement Size (cm) - Width 2.4 2.1 2.7 -Post Debridement Size (cm) - Depth 0.7 0.2 0.6 -Total Square Cm 18.72 13.02 21.6 -Wound/Ulcer Outcome Not Healed Not Healed Not Healed -Ulcer Cleansing Rinsed/ Rinsed/ Rinsed/ Irrigated with Irrigated with Irrigated with Saline Saline Saline -Foul Odor after Cleansing No No No -Bioengineered Tissue No Yes Yes -Type of bioengineered Tissue EPIFIX EPIFIX -Expiration Date 06/27/23 06/27/23 -Product Lot Number [id number] -Percent Used 100 100 -Saline Lot Number [id number] -Bleeding Controlled with Pressure Pressure Pressure -Offloading No No No -Treatment Response Procedure Procedure Procedure Tolerated Well Tolerated Well Tolerated Well #5 Posterior LLE -Time 11:37 14:19 14:39 -Correct Patient Yes Yes Yes -Correct Side, Site, Position Yes Yes Yes -Correct Procedure Yes Yes Yes -Procedure Performed Yes Yes Yes -Type of Procedure Debridement Debridement Debridement -Clinical Debridement Subcutaneous Subcutaneous Subcutaneous -Post Debridement Size (cm) - Length 2.5 1.3 2.4 -Post Debridement Size (cm) - Width 2 2 2 -Post Debridement Size (cm) - Depth 0.1 0.2 0.1 -Total Square Cm 5.0 2.6 4.8 -Wound/Ulcer Outcome Not Healed Not Healed Not Healed -Ulcer Cleansing Rinsed/ Rinsed/ Rinsed/ Irrigated with Irrigated with Irrigated with Saline Saline Saline -Foul Odor after Cleansing No No No -Bioengineered Tissue No No No -Type of bioengineered Tissue -Expiration Date -Product Lot Number -Percent Used -Saline Lot Number -Bleeding Controlled with Pressure Pressure Pressure Silver Nitrate Silver Nitrate Silver Nitrate -Offloading No No No -Treatment Response Procedure Procedure Procedure Tolerated Well Tolerated Well Tolerated Well #3 Right Heel -Time 11:37 14:19 14:44 -Correct Patient Yes Yes Yes -Correct Side, Site, Position Yes Yes Yes -Correct Procedure Yes Yes Yes -Procedure Performed Yes Yes Yes -Type of Procedure Debridement Debridement Debridement -Clinical Debridement Subcutaneous Subcutaneous Subcutaneous -Post Debridement Size (cm) - Length 2 3 1.8 -Post Debridement Size (cm) - Width 4.4 4.8 5 -Post Debridement Size (cm) - Depth 0.2 0.2 0.3 -Total Square Cm 8.8 14.4 9.0 -Wound/Ulcer Outcome Not Healed Not Healed Not Healed -Ulcer Cleansing Rinsed/ Rinsed/ Rinsed/ Irrigated with Irrigated with Irrigated with Saline Saline Saline -Foul Odor after Cleansing No No No -Bioengineered Tissue Yes Yes Yes -Type of bioengineered Tissue EPIFIX EPIFIX EPIFIX -Expiration Date 06/27/23 06/27/23 06/27/23 -Product Lot Number [id number] -Percent Used 100 100 100 -Saline Lot Number [id number] -Bleeding Controlled with Pressure Pressure Pressure -Offloading No No No -Treatment Response Procedure Procedure Procedure Tolerated Well Tolerated Well Tolerated Well #2 Right Lateral Ankle -Time 11:41 14:19 14:45 -Correct Patient Yes Yes Yes -Correct Side, Site, Position Yes Yes Yes -Correct Procedure Yes Yes Yes -Procedure Performed Yes Yes Yes -Type of Procedure Debridement Debridement Debridement -Clinical Debridement Subcutaneous Subcutaneous Subcutaneous -Post Debridement Size (cm) - Length 1.8 2.5 0.2 -Post Debridement Size (cm) - Width 1.3 1.9 0.3 -Post Debridement Size (cm) - Depth 0.1 0.2 0.1 -Total Square Cm 2.34 4.75 0.06 -Wound/Ulcer Outcome Not Healed Not Healed Not Healed -Ulcer Cleansing Rinsed/ Rinsed/ Rinsed/ Irrigated with Irrigated with Irrigated with Saline Saline Saline -Foul Odor after Cleansing No No No -Bioengineered Tissue No Yes Yes -Type of bioengineered Tissue EPIFIX EPIFIX -Expiration Date 06/27/23 06/27/23 -Product Lot Number [id number] -Percent Used 100 100 -Saline Lot Number [id number] -Bleeding Controlled with Pressure Pressure Pressure -Offloading No No No -Treatment Response Procedure Procedure Procedure Tolerated Well Tolerated Well Tolerated Well Pain Scale: 0-10 Numeric Is Patient Pain Free? Yes Yes Yes 12/19/18 10:39 Wound Center Nurse 2 #7 RLat LE -Time 10:39 -Correct Patient Yes -Correct Side, Site, Position Yes -Correct Procedure Yes -Procedure Performed Yes -Type of Procedure Debridement -Clinical Debridement Subcutaneous -Post Debridement Size (cm) - Length 8.3 -Post Debridement Size (cm) - Width 2.7 -Post Debridement Size (cm) - Depth 0.6 -Total Square Cm 22.41 -Wound/Ulcer Outcome Not Healed -Ulcer Cleansing Rinsed/ Irrigated with Saline -Foul Odor after Cleansing No -Bioengineered Tissue Yes -Type of bioengineered Tissue EPIFIX -Expiration Date 05/27/23 -Product Lot Number [id number] -Percent Used 100 -Saline Lot Number [id number] -Bleeding Controlled with Pressure -Offloading No -Treatment Response Procedure Tolerated Well #5 Posterior LLE -Time 10:40 -Correct Patient Yes -Correct Side, Site, Position Yes -Correct Procedure Yes -Procedure Performed Yes -Type of Procedure Debridement -Clinical Debridement Subcutaneous -Post Debridement Size (cm) - Length 1.5 -Post Debridement Size (cm) - Width 1.3 -Post Debridement Size (cm) - Depth 0.1 -Total Square Cm 1.95 -Wound/Ulcer Outcome Not Healed -Ulcer Cleansing Rinsed/ Irrigated with Saline -Foul Odor after Cleansing No -Bioengineered Tissue Yes -Type of bioengineered Tissue EPIFIX -Expiration Date 05/27/23 -Product Lot Number [id number] -Percent Used 100 -Saline Lot Number [id number] -Bleeding Controlled with Pressure -Offloading No -Treatment Response Procedure Tolerated Well #3 Right Heel -Time 10:40 -Correct Patient Yes -Correct Side, Site, Position Yes -Correct Procedure Yes -Procedure Performed Yes -Type of Procedure Debridement -Clinical Debridement Subcutaneous -Post Debridement Size (cm) - Length 1.5 -Post Debridement Size (cm) - Width 5 -Post Debridement Size (cm) - Depth 0.1 -Total Square Cm 7.5 -Wound/Ulcer Outcome Not Healed -Ulcer Cleansing Rinsed/ Irrigated with Saline -Foul Odor after Cleansing No -Bioengineered Tissue Yes -Type of bioengineered Tissue EPIFIX -Expiration Date 05/27/23 -Product Lot Number [id number] -Percent Used 100 -Saline Lot Number [id number] -Bleeding Controlled with Pressure -Offloading No -Treatment Response Procedure Tolerated Well #2 Right Lateral Ankle -Time 10:41 -Correct Patient Yes -Correct Side, Site, Position Yes -Correct Procedure Yes -Procedure Performed Yes -Type of Procedure Debridement -Clinical Debridement Subcutaneous -Post Debridement Size (cm) - Length 0.2 -Post Debridement Size (cm) - Width 0.2 -Post Debridement Size (cm) - Depth 0.1 -Total Square Cm 0.04 -Wound/Ulcer Outcome Not Healed -Ulcer Cleansing Rinsed/ Irrigated with Saline -Foul Odor after Cleansing No -Bioengineered Tissue Yes -Type of bioengineered Tissue EPIFIX -Expiration Date 05/27/23 -Product Lot Number [id number] -Percent Used 100 -Saline Lot Number [id number] -Bleeding Controlled with Pressure -Offloading No -Treatment Response Procedure Tolerated Well Pain Scale: 0-10 Numeric Is Patient Pain Free? Yes Wound debrided: lateral leg Laterality: Left Type of Debridement: Excisional debridement Anesthesia Used: 5% Lidocaine Gel Depth: in the subcutaneous layer Percentage of wound debrided: 100 Instrument Used: #15 blade Tissue Removed: fibrous, devitalized subcutaneous, biofilm, slough Severity: Fat Layer Exposed Amount of bleeding with debridement: Mild Bleeding Controlled with: Pressure Patient tolerated procedure well - Additional Wound Wound debrided: heel Laterality: Right Type of Debridement: Excisional debridement Anesthesia Used: 5% Lidocaine Gel Depth: in the subcutaneous layer Percentage of wound debrided: 100 Instrument Used: #15 blade Tissue Removed: fibrous, devitalized subcutaneous, biofilm, slough Severity: Fat Layer Exposed Amount of bleeding with debridement: Mild Bleeding Controlled with: Pressure Patient tolerated procedure: Patient tolerated procedure well - Additional Wound Wound debrided: lateral ankle Laterality: Right Type of Debridement: Excisional debridement Anesthesia Used: 5% Lidocaine Gel Depth: in the subcutaneous layer Percentage of wound debrided: 100 Instrument Used: #15 blade Tissue Removed: fibrous, devitalized subcutaneous, biofilm, slough Severity: Fat Layer Exposed Amount of bleeding with debridement: Mild Bleeding Controlled with: Pressure Patient tolerated procedure: Patient tolerated procedure well - Additional Wound Wound debrided: lateral leg Laterality: Right Type of Debridement: Excisional debridement Anesthesia Used: 5% Lidocaine Gel Depth: in the subcutaneous layer Percentage of wound debrided: 100 Instrument Used: #15 blade Tissue Removed: fibrous, devitalized subcutaneous, biofilm, slough Severity: Fat Layer Exposed Amount of bleeding with debridement: Mild Bleeding Controlled with: Pressure Patient tolerated procedure: Patient tolerated procedure well Assessment/Plan Active Problems (Last Reviewed 08/13/18 @ 10:19 by Fernando Patterson MD) Ulcer of right lower extremity with fat layer exposed (Chronic) Ulcer of left lower extremity with necrosis of muscle (Chronic) Hypergranulation (Acute) Non-pressure chronic ulcer of left lower leg with fat layer exposed (Chronic) 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) Ulcer of right foot with fat layer exposed (Chronic) previously unstageable pressure ulcer Paralysis (Chronic) Malnutrition (Chronic) Delayed wound healing (Chronic) Edema leg (Chronic) Assessment: Right lateral ankle unstageable pressure ulcer, no cellulitis. Fat layer exposed now. Right lateral leg ulcer, fat layer exposed. refractory osteomyelitis calcaneus, right. Right heel unstageable pressure ulcer, no cellulitis. fat layer exposed now. Left leg ulcer fat layer exposed (lateral). Peripheral vascular disease with rest pain. Other comorbidities. Delayed healing. Malnutrition. Paralysis and gait impairment with wheelchair use Plan: I reviewed and discussed his case today. The advance wound care product remains intact. Debridement and a subcutaneous excisional manner was performed bilateral lower extremity is as noted in the clinical panel. Advanced wound care product, epi fix was applied to the right heel, right ankle and right leg and left leg. This was secured in place with a wound veil, hydrogel, and Steri-Strips. Verbal consent was obtained prior to applying this. He tolerated this well. He was advised to keep this dressing clean, dry, and intact until follow-up next week. This is medically necessary to optimize healing. Today, a secondary dressing was applied with additional Tubigrip for continued edema management. He was advised to keep these clean, dry, and intact until follow-up next week. This will be monitored very closely and there does not appear to be an infection. He had recent noninvasive vascular studies performed which demonstrated noncompressible vessels in which ankle-brachial indices were not calculated. This is consistent with rest pain as well as multisegmental occlusive disease and vessel calcification. He did go for consultation with Dr. De Anda previously who formed an angioplasty to her in which intervention options were not identified. It is noted he does have perfusion opportunities available to the lower extremity on the right side. His labs were updated previously and discussed in his white blood cell count is 6.0, sedimentation rate 14, and hemoglobin A1c 5.8%. His updated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 x-rays do not demonstrate osseous destruction, periosteal reaction, soft tissue emphysema, acute fracture dislocation, or foreign body. Vessel calcification is seen on plain x-ray consistent with vessel disease. It is noted he completed a 6-week course of IV antibiotics and infectious disease has also been following him closely. He had a previous MRI which demonstrated mild marrow edema to the left calcaneus and lateral ankle consistent with osteomyelitis; the adjacent ulcer site have healed. He also had previous MRI which demonstrated these same findings to right calcaneus with adjacent ongoing delayed healing ulcer; this is the area of concern for refractory osteomyelitis at this time. Due to delayed healing, pain, and continued deep tissue exposure this is consistent with chronic osteomyelitis. I recommend hyperbaric oxygen therapy to optimize healing; this is medically necessary to optimize healing. It is noted his ejection fraction is 65%. He will see provider Mara this upcoming Monday to refill the prescription for hyperbaric therpay. He understands it is also safe for him to avoid chamber activity with chest congestion and current illness. He is amendable to this plan. The benefits, risks, complications, anticipated healing time and management were discussed in detail again today and he is demonstrated significant improvement throughout the course of his care here at the wound healing center. I answered all his questions. He understands that he is at significant risk for limb loss and our goal at this time is to control any infectious process and establish a clear level of perfusion. To continue with nutritional supplementation, Fred. To return to clinic in 1 week for physician reevaluation or call sooner if he has any questions or concerns.
--- NOTE | 2018-12-19 11:07 | PN.PCM_ITS ---
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 Current Visit: Yes Code(s): L97.922 - Non-pressure chronic ulcer of unspecified part of left lower leg with fat layer exposed (2) Ulcer of right lower extremity with fat layer exposed Status: Chronic Current Visit: Yes Code(s): L97.912 - Non-pressure chronic ulcer of unspecified part of right lower leg with fat layer exposed (3) Chronic refractory osteomyelitis of right foot Status: Chronic Current Visit: Yes Code(s): M86.671 - Other chronic osteomyelitis,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 (4) Ulcer of right foot with fat layer exposed Status: Chronic Current Visit: Yes Code(s): L97.512 - Non-pressure chronic ulcer of other part of right foot with fat layer exposed Comment: previously unstageable pressure ulcer (5) Paralysis Status: Chronic Current Visit: Yes Code(s): G83.9 - Paralytic syndrome, un specified (6) Malnutrition Status: Chronic Current Visit: Yes Code(s): E46 - Unspecified protein-calorie malnutrition (7) Delayed wound healing Status: Chronic Current Visit: Yes Code(s): T14.8XXD - Other injury of unspecified body region, subsequent encounter (8) Edema leg Status: Chronic Current Visit: Yes Code(s): R60.0 - Localized edema (9) Hypergranulation Status: Acute Current Visit: Yes Code(s): L92.9 - Granulomatous disorder of the skin and subcutaneous tissue, unspecified Type of Wound Chief Complaint: 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 Ulcer with fat tissue exposed left leg, right leg, right ankle. Ulcer right heel with fat and fascial layer exposed. Previously medically treated osteomyelitis. Paraplegia History of Wound: This 83-year-old male with multiple comorbidities was seen at the wound healing center for pressure ulcers to bilateral lower extremities. He previously had versa jet debridement in the operating room with application of advanced wound care products including amniofill and epicord to the left leg as well as the right leg, ankle, and heel. He also recently completed a vascular surgery evaluation with Dr. De Anda and an Angio without any identifiable intervention noted. He denies fever, chill, nausea, vomiting. He is a paraplegic and presents in a wheelchair. He continues to take Fred supplementation. He did obtain bilateral donut offloading pillows and this helps keep pressure off the sites. He continues hyperbaric oxygen therapy. He is with his today. He is sick and has chest congestion is not feeling well today. He had to miss hyperbaric oxygen treatment earlier this week due to his cold. Progress of Wound: Improving - Physical Exam Vital Signs Temp Pulse Resp BP 96.8 F L 74 18 120/65 12/19/18 10:04 12/19/18 10:04 12/19/18 10:04 12/19/18 10:04 General: Alert, Oriented x3, Cooperative Extremities: No cyanosis, Capillary Refill Less than 3 Seconds, No Calf Tenderness, Diminished Peripheral Pulses, Edema - Mild bilateral lower extremities, - - Paralysis bilateral lower extremities Skin: Ulcer/ Wound - No purulence, erythema, streaking, odor, or infection bilateral. There is continued peripheral epithelialization to all sites and the ulcer beds are granular. There is no longer hyper granulation tissue to the left leg ulcer site. The peripheral skin is hairless and atrophic bilateral. Wound Measurements and Assessment WC - Nurse 1 - General Ulcer Measurement Start: 11/28/18 11:03 Freq: Status: Active Protocol: Activity Type Activity Date Activity User E-Sign Co-Sign Detail Recorded Client Recorded Date Recorded By Document 12/19/18 10:[address] [facility] [id number] 12/19/18 10:[address] [facility] 12/19/18 10:04 Wound Center Nurse 1 [Ulcer Assessment] #7 RLat LE -Current Size (cm) - Length 8.3 -Current Size (cm) - Width 2.3 -Current Size (cm) - Depth 0.6 -Total Square Cm 19.09 -Photo Taken No -Epithelialization Small 1-33% -Tunneling No -Undermining/Tunneling No -Classification - Thickness Full Thickness without Exposed Support Structure -Exudate Amt Medium -Exudate Type Serosanguineous -Wound Margin Flat & Intact -Granulation Amt Medium (34-66%) -Granulation Quality Red -Slough/Fibrin Yes -Necrosis Amt Medium (34-66%) -Necrotic Tissue Type Adherent Slough -Texture (Denisse-wound Skin Appearance) Scarring -Moisture (Denisse-wound Skin Appearance Assessed ) Dry/Scaly -Color (Denisse-wound Skin Appearance) Assessed -Temperature (Denisse-wound Skin No Abnormality Appearance) (Pt Warm) -Tenderness on Palpation (Denisse-wound Yes Skin Appearance) -Ulcer Cleansing Rinsed/ Irrigated with Saline -Foul Odor after Cleansing No -Anesthetic Used 4% Lidocaine Solution #5 Posterior LLE -Current Size (cm) - Length 1.4 -Current Size (cm) - Width 1.3 -Current Size (cm) - Depth 0.1 -Total Square Cm 1.82 -Photo Taken No -Epithelialization None Present -Tunneling No -Undermining/Tunneling No -Classification - Thickness Full Thickness without Exposed Support Structure -Exudate Amt Medium -Exudate Type Serosanguineous -Wound Margin Flat & Intact -Granulation Amt Medium (34-66%) -Granulation Quality Hyper- granulation -Slough/Fibrin Yes -Necrosis Amt Medium (34-66%) -Necrotic Tissue Type Adherent Slough -Texture (Denisse-wound Skin Appearance) Assessed -Moisture (Denisse-wound Skin Appearance Assessed ) Dry/Scaly -Color (Denisse-wound Skin Appearance) Assessed -Temperature (Denisse-wound Skin No Abnormality Appearance) (Pt Warm) -Tenderness on Palpation (Denisse-wound Yes Skin Appearance) -Ulcer Cleansing Rinsed/ Irrigated with Saline -Foul Odor after Cleansing No -Anesthetic Used 4% Lidocaine Solution #3 Right Heel -Current Size (cm) - Length 1.4 -Current Size (cm) - Width 5.0 -Current Size (cm) - Depth 0.1 -Total Square Cm 7.00 -Photo Taken No -Epithelialization None Present -Tunneling No -Undermining/Tunneling No -Circular Undermining No -Classification - Thickness Full Thickness without Exposed Support Structure -Exudate Amt Medium -Exudate Type Serosanguineous -Wound Margin Flat & Intact -Granulation Amt Small (1-33%) -Granulation Quality Red -Slough/Fibrin Yes -Necrosis Amt Large (67-100%) -Necrotic Tissue Type Adherent Slough -Texture (Denisse-wound Skin Appearance) Assessed Scarring -Moisture (Denisse-wound Skin Appearance Assessed ) Dry/Scaly -Color (Denisse-wound Skin Appearance) Assessed Erythema -Temperature (Denisse-wound Skin No Abnormality Appearance) (Pt Warm) -Tenderness on Palpation (Denisse-wound Yes Skin Appearance) -Ulcer Cleansing Rinsed/ Irrigated with Saline -Foul Odor after Cleansing No -Anesthetic Used 4% Lidocaine Solution #2 Right Lateral Ankle -Current Size (cm) - Length 0.1 -Current Size (cm) - Width 0.1 -Current Size (cm) - Depth 0.1 -Total Square Cm 0.01 -Granulation Amt None Present (0 %) -Necrosis Amt Large (67-100%) -Necrotic Tissue Type Eschar [Edema Assessment] -Right Calf (cm) 28.4 -Right Ankle (cm) 24.5 -Left Calf (cm) 28.7 -Left Ankle (cm) 23.2 WC - Nurse 2 - General Ulcer CM Notes Start: 11/28/18 11:03 Freq: Status: Active Protocol: Activity Type Activity Date Activity User E-Sign Co-Sign Detail Recorded Client Recorded Date Recorded By Document 12/19/18 10:39 [facility] [id number] 12/19/18 10:44 [facility] 12/19/18 10:39 Wound Center Nurse 2 [Procedure/Treatment] #7 RLat LE -Time 10:39 -Correct Patient Yes -Correct Side, Site, Position Yes -Correct Procedure Yes -Procedure Performed Yes -Type of Procedure Debridement -Clinical Debridement Subcutaneous -Post Debridement Size (cm) - Length 8.3 -Post Debridement Size (cm) - Width 2.7 -Post Debridement Size (cm) - Depth 0.6 -Total Square Cm 22.41 -Wound/Ulcer Outcome Not Healed -Ulcer Cleansing Rinsed/ Irrigated with Saline -Foul Odor after Cleansing No -Bioengineered Tissue Yes -Type of bioengineered Tissue EPIFIX -Expiration Date 05/27/23 -Product Lot Number [id number] -Percent Used 100 -Saline Lot Number [id number] -Bleeding Controlled with Pressure -Offloading No -Treatment Response Procedure Tolerated Well #5 Posterior LLE -Time 10:40 -Correct Patient Yes -Correct Side, Site, Position Yes -Correct Procedure Yes -Procedure Performed Yes -Type of Procedure Debridement -Clinical Debridement Subcutaneous -Post Debridement Size (cm) - Length 1.5 -Post Debridement Size (cm) - Width 1.3 -Post Debridement Size (cm) - Depth 0.1 -Total Square Cm 1.95 -Wound/Ulcer Outcome Not Healed -Ulcer Cleansing Rinsed/ Irrigated with Saline -Foul Odor after Cleansing No -Bioengineered Tissue Yes -Type of bioengineered Tissue EPIFIX -Expiration Date 05/27/23 -Product Lot Number [id number] -Percent Used 100 -Saline Lot Number [id number] -Bleeding Controlled with Pressure -Offloading No -Treatment Response Procedure Tolerated Well #3 Right Heel -Time 10:40 -Correct Patient Yes -Correct Side, Site, Position Yes -Correct Procedure Yes -Procedure Performed Yes -Type of Procedure Debridement -Clinical Debridement Subcutaneous -Post Debridement Size (cm) - Length 1.5 -Post Debridement Size (cm) - Width 5 -Post Debridement Size (cm) - Depth 0.1 -Total Square Cm 7.5 -Wound/Ulcer Outcome Not Healed -Ulcer Cleansing Rinsed/ Irrigated with Saline -Foul Odor after Cleansing No -Bioengineered Tissue Yes -Type of bioengineered Tissue EPIFIX -Expiration Date 05/27/23 -Product Lot Number [id number] -Percent Used 100 -Saline Lot Number [id number] -Bleeding Controlled with Pressure -Offloading No -Treatment Response Procedure Tolerated Well #2 Right Lateral Ankle -Time 10:41 -Correct Patient Yes -Correct Side, Site, Position Yes -Correct Procedure Yes -Procedure Performed Yes -Type of Procedure Debridement -Clinical Debridement Subcutaneous -Post Debridement Size (cm) - Length 0.2 -Post Debridement Size (cm) - Width 0.2 -Post Debridement Size (cm) - Depth 0.1 -Total Square Cm 0.04 -Wound/Ulcer Outcome Not Healed -Ulcer Cleansing Rinsed/ Irrigated with Saline -Foul Odor after Cleansing No -Bioengineered Tissue Yes -Type of bioengineered Tissue EPIFIX -Expiration Date 05/27/23 -Product Lot Number [id number] -Percent Used 100 -Saline Lot Number [id number] -Bleeding Controlled with Pressure -Offloading No -Treatment Response Procedure Tolerated Well [See Physician Procedure note for Specifics] Pain Scale: 0-10 Numeric [Pain] -Is Patient Pain Free? Yes Musculoskeletal: No Tenderness to Palpation of Joints or Extremities, Muscle Wasting, - - Compartments soft to palpate bilateral lower extremities Neurological: - - Lack of epicritic sensation light touch bilateral lower extremities Psych/Mental Status: Normal Affect, Appropriate Debridement Note Post-Debridement Measurements/Treatment WC - Nurse 2 - General Ulcer CM Notes Start: 11/28/18 11:03 Freq: Status: Active Protocol: Activity Type Activity Date Activity User E-Sign Co-Sign Detail Recorded Client Recorded Date Recorded By Document 11/28/18 11:36 [id number] 11/28/18 11:42 Document 12/05/18 14:18 [id number] 12/05/18 14:22 Document 12/12/18 14:38 [id number] 12/12/18 14:47 Document 12/19/18 10:39 [id number] 12/19/18 10:44 11/28/18 12/05/18 12/12/18 11:36 14:18 14:38 Wound Center Nurse 2 #7 RLat LE -Time 11:36 14:18 14:39 -Correct Patient Yes Yes Yes -Correct Side, Site, Position Yes Yes Yes -Correct Procedure Yes Yes Yes -Procedure Performed Yes Yes Yes -Type of Procedure Debridement Debridement Debridement -Clinical Debridement Subcutaneous Subcutaneous Subcutaneous -Post Debridement Size (cm) - Length 7.8 6.2 8 -Post Debridement Size (cm) - Width 2.4 2.1 2.7 -Post Debridement Size (cm) - Depth 0.7 0.2 0.6 -Total Square Cm 18.72 13.02 21.6 -Wound/Ulcer Outcome Not Healed Not Healed Not Healed -Ulcer Cleansing Rinsed/ Rinsed/ Rinsed/ Irrigated with Irrigated with Irrigated with Saline Saline Saline -Foul Odor after Cleansing No No No -Bioengineered Tissue No Yes Yes -Type of bioengineered Tissue EPIFIX EPIFIX -Expiration Date 06/27/23 06/27/23 -Product Lot Number [id number] -Percent Used 100 100 -Saline Lot Number [id number] -Bleeding Controlled with Pressure Pressure Pressure -Offloading No No No -Treatment Response Procedure Procedure Procedure Tolerated Well Tolerated Well Tolerated Well #5 Posterior LLE -Time 11:37 14:19 14:39 -Correct Patient Yes Yes Yes -Correct Side, Site, Position Yes Yes Yes -Correct Procedure Yes Yes Yes -Procedure Performed Yes Yes Yes -Type of Procedure Debridement Debridement Debridement -Clinical Debridement Subcutaneous Subcutaneous Subcutaneous -Post Debridement Size (cm) - Length 2.5 1.3 2.4 -Post Debridement Size (cm) - Width 2 2 2 -Post Debridement Size (cm) - Depth 0.1 0.2 0.1 -Total Square Cm 5.0 2.6 4.8 -Wound/Ulcer Outcome Not Healed Not Healed Not Healed -Ulcer Cleansing Rinsed/ Rinsed/ Rinsed/ Irrigated with Irrigated with Irrigated with Saline Saline Saline -Foul Odor after Cleansing No No No -Bioengineered Tissue No No No -Type of bioengineered Tissue -Expiration Date -Product Lot Number -Percent Used -Saline Lot Number -Bleeding Controlled with Pressure Pressure Pressure Silver Nitrate Silver Nitrate Silver Nitrate -Offloading No No No -Treatment Response Procedure Procedure Procedure Tolerated Well Tolerated Well Tolerated Well #3 Right Heel -Time 11:37 14:19 14:44 -Correct Patient Yes Yes Yes -Correct Side, Site, Position Yes Yes Yes -Correct Procedure Yes Yes Yes -Procedure Performed Yes Yes Yes -Type of Procedure Debridement Debridement Debridement -Clinical Debridement Subcutaneous Subcutaneous Subcutaneous -Post Debridement Size (cm) - Length 2 3 1.8 -Post Debridement Size (cm) - Width 4.4 4.8 5 -Post Debridement Size (cm) - Depth 0.2 0.2 0.3 -Total Square Cm 8.8 14.4 9.0 -Wound/Ulcer Outcome Not Healed Not Healed Not Healed -Ulcer Cleansing Rinsed/ Rinsed/ Rinsed/ Irrigated with Irrigated with Irrigated with Saline Saline Saline -Foul Odor after Cleansing No No No -Bioengineered Tissue Yes Yes Yes -Type of bioengineered Tissue EPIFIX EPIFIX EPIFIX -Expiration Date 06/27/23 06/27/23 06/27/23 -Product Lot Number [id number] -Percent Used 100 100 100 -Saline Lot Number [id number] -Bleeding Controlled with Pressure Pressure Pressure -Offloading No No No -Treatment Response Procedure Procedure Procedure Tolerated Well Tolerated Well Tolerated Well #2 Right Lateral Ankle -Time 11:41 14:19 14:45 -Correct Patient Yes Yes Yes -Correct Side, Site, Position Yes Yes Yes -Correct Procedure Yes Yes Yes -Procedure Performed Yes Yes Yes -Type of Procedure Debridement Debridement Debridement -Clinical Debridement Subcutaneous Subcutaneous Subcutaneous -Post Debridement Size (cm) - Length 1.8 2.5 0.2 -Post Debridement Size (cm) - Width 1.3 1.9 0.3 -Post Debridement Size (cm) - Depth 0.1 0.2 0.1 -Total Square Cm 2.34 4.75 0.06 -Wound/Ulcer Outcome Not Healed Not Healed Not Healed -Ulcer Cleansing Rinsed/ Rinsed/ Rinsed/ Irrigated with Irrigated with Irrigated with Saline Saline Saline -Foul Odor after Cleansing No No No -Bioengineered Tissue No Yes Yes -Type of bioengineered Tissue EPIFIX EPIFIX -Expiration Date 06/27/23 06/27/23 -Product Lot Number [id number] -Percent Used 100 100 -Saline Lot Number [id number] -Bleeding Controlled with Pressure Pressure Pressure -Offloading No No No -Treatment Response Procedure Procedure Procedure Tolerated Well Tolerated Well Tolerated Well Pain Scale: 0-10 Numeric Is Patient Pain Free? Yes Yes Yes 12/19/18 10:39 Wound Center Nurse 2 #7 RLat LE -Time 10:39 -Correct Patient Yes -Correct Side, Site, Position Yes -Correct Procedure Yes -Procedure Performed Yes -Type of Procedure Debridement -Clinical Debridement Subcutaneous -Post Debridement Size (cm) - Length 8.3 -Post Debridement Size (cm) - Width 2.7 -Post Debridement Size (cm) - Depth 0.6 -Total Square Cm 22.41 -Wound/Ulcer Outcome Not Healed -Ulcer Cleansing Rinsed/ Irrigated with Saline -Foul Odor after Cleansing No -Bioengineered Tissue Yes -Type of bioengineered Tissue EPIFIX -Expiration Date 05/27/23 -Product Lot Number [id number] -Percent Used 100 -Saline Lot Number [id number] -Bleeding Controlled with Pressure -Offloading No -Treatment Response Procedure Tolerated Well #5 Posterior LLE -Time 10:40 -Correct Patient Yes -Correct Side, Site, Position Yes -Correct Procedure Yes -Procedure Performed Yes -Type of Procedure Debridement -Clinical Debridement Subcutaneous -Post Debridement Size (cm) - Length 1.5 -Post Debridement Size (cm) - Width 1.3 -Post Debridement Size (cm) - Depth 0.1 -Total Square Cm 1.95 -Wound/Ulcer Outcome Not Healed -Ulcer Cleansing Rinsed/ Irrigated with Saline -Foul Odor after Cleansing No -Bioengineered Tissue Yes -Type of bioengineered Tissue EPIFIX -Expiration Date 05/27/23 -Product Lot Number [id number] -Percent Used 100 -Saline Lot Number [id number] -Bleeding Controlled with Pressure -Offloading No -Treatment Response Procedure Tolerated Well #3 Right Heel -Time 10:40 -Correct Patient Yes -Correct Side, Site, Position Yes -Correct Procedure Yes -Procedure Performed Yes -Type of Procedure Debridement -Clinical Debridement Subcutaneous -Post Debridement Size (cm) - Length 1.5 -Post Debridement Size (cm) - Width 5 -Post Debridement Size (cm) - Depth 0.1 -Total Square Cm 7.5 -Wound/Ulcer Outcome Not Healed -Ulcer Cleansing Rinsed/ Irrigated with Saline -Foul Odor after Cleansing No -Bioengineered Tissue Yes -Type of bioengineered Tissue EPIFIX -Expiration Date 05/27/23 -Product Lot Number [id number] -Percent Used 100 -Saline Lot Number [id number] -Bleeding Controlled with Pressure -Offloading No -Treatment Response Procedure Tolerated Well #2 Right Lateral Ankle -Time 10:41 -Correct Patient Yes -Correct Side, Site, Position Yes -Correct Procedure Yes -Procedure Performed Yes -Type of Procedure Debridement -Clinical Debridement Subcutaneous -Post Debridement Size (cm) - Length 0.2 -Post Debridement Size (cm) - Width 0.2 -Post Debridement Size (cm) - Depth 0.1 -Total Square Cm 0.04 -Wound/Ulcer Outcome Not Healed -Ulcer Cleansing Rinsed/ Irrigated with Saline -Foul Odor after Cleansing No -Bioengineered Tissue Yes -Type of bioengineered Tissue EPIFIX -Expiration Date 05/27/23 -Product Lot Number [id number] -Percent Used 100 -Saline Lot Number [id number] -Bleeding Controlled with Pressure -Offloading No -Treatment Response Procedure Tolerated Well Pain Scale: 0-10 Numeric Is Patient Pain Free? Yes Wound debrided: lateral leg Laterality: Left Type of Debridement: Excisional debridement Anesthesia Used: 5% Lidocaine Gel Depth: in the subcutaneous layer Percentage of wound debrided: 100 Instrument Used: #15 blade Tissue Removed: fibrous, devitalized subcutaneous, biofilm, slough Severity: Fat Layer Exposed Amount of bleeding with debridement: Mild Bleeding Controlled with: Pressure Patient tolerated procedure well - Additional Wound Wound debrided: heel Laterality: Right Type of Debridement: Excisional debridement Anesthesia Used: 5% Lidocaine Gel Depth: in the subcutaneous layer Percentage of wound debrided: 100 Instrument Used: #15 blade Tissue Removed: fibrous, devitalized subcutaneous, biofilm, slough Severity: Fat Layer Exposed Amount of bleeding with debridement: Mild Bleeding Controlled with: Pressure Patient tolerated procedure: Patient tolerated procedure well - Additional Wound Wound debrided: lateral ankle Laterality: Right Type of Debridement: Excisional debridement Anesthesia Used: 5% Lidocaine Gel Depth: in the subcutaneous layer Percentage of wound debrided: 100 Instrument Used: #15 blade Tissue Removed: fibrous, devitalized subcutaneous, biofilm, slough Severity: Fat Layer Exposed Amount of bleeding with debridement: Mild Bleeding Controlled with: Pressure Patient tolerated procedure: Patient tolerated procedure well - Additional Wound Wound debrided: lateral leg Laterality: Right Type of Debridement: Excisional debridement Anesthesia Used: 5% Lidocaine Gel Depth: in the subcutaneous layer Percentage of wound debrided: 100 Instrument Used: #15 blade Tissue Removed: fibrous, devitalized subcutaneous, biofilm, slough Severity: Fat Layer Exposed Amount of bleeding with debridement: Mild Bleeding Controlled with: Pressure Patient tolerated procedure: Patient tolerated procedure well Assessment/Plan Active Problems (Last Reviewed 08/13/18 @ 10:19 by Fernando Patterson MD) Ulcer of right lower extremity with fat layer exposed (Chronic) Ulcer of left lower extremity with necrosis of muscle (Chronic) Hypergranulation (Acute) Non-pressure chronic ulcer of left lower leg with fat layer exposed (Chronic) 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) Ulcer of right foot with fat layer exposed (Chronic) previously unstageable pressure ulcer Paralysis (Chronic) Malnutrition (Chronic) Delayed wound healing (Chronic) Edema leg (Chronic) Assessment: Right lateral ankle unstageable pressure ulcer, no cellulitis. Fat layer exposed now. Right lateral leg ulcer, fat layer exposed. refractory osteomyelitis calcaneus, right. Right heel unstageable pressure ulcer, no cellulitis. fat layer exposed now. Left leg ulcer fat layer exposed (lateral). Peripheral vascular disease with rest pain. Other comorbidities. Delayed healing. Malnutrition. Paralysis and gait impairment with wheelchair use Plan: I reviewed and discussed his case today. The advance wound care product remains intact. Debridement and a subcutaneous excisional manner was performed bilateral lower extremity is as noted in the clinical panel. Advanced wound care product, epi fix was applied to the right heel, right ankle and right leg and left leg. This was secured in place with a wound veil, hydrogel, and Steri- Strips. Verbal consent was obtained prior to applying this. He tolerated this well. He was advised to keep this dressing clean, dry, and intact until follow-up next week. This is medically necessary to optimize healing. Today, a secondary dressing was applied with additional Tubigrip for continued edema management. He was advised to keep these clean, dry, and intact until follow-up next week. This will be monitored very closely and there does not appear to be an infection. He had recent noninvasive vascular studies performed which demonstrated noncompressible vessels in which ankle-brachial indices were not calculated. This is consistent with rest pain as well as multisegmental occlusive disease and vessel calcification. He did go for consultation with Dr. De Anda previously who formed an angioplasty to her in which intervention options were not identified. It is noted he does have perfusion opportunities available to the lower extremity on the right side. His labs were updated previously and discussed in his white blood cell count is 6.0, sedimentation rate 14, and hemoglobin A1c 5.8%. His updated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 x-rays do not demonstrate osseous destruction, periosteal reaction, soft tissue emphysema, acute fracture dislocation, or foreign body. Vessel calcification is seen on plain x-ray consistent with vessel disease. It is noted he completed a 6-week course of IV antibiotics and infectious disease has also been following him closely. He had a previous MRI which demonstrated mild marrow edema to the left calcaneus and lateral ankle consistent with osteomyelitis; the adjacent ulcer site have healed. He also had previous MRI which demonstrated these same findings to right calcaneus with adjacent ongoing delayed healing ulcer; this is the area of concern for refractory osteomyelitis at this time. Due to delayed healing, pain, and continued deep tissue exposure this is consistent with chronic osteomyelitis. I recommend hyperbaric oxygen therapy to optimize healing; this is medically necessary to optimize healing. It is noted his ejection fraction is 65%. He will see provider Mara this upcoming Monday to refill the prescription for hyperbaric therpay. He understands it is also safe for him to avoid chamber activity with chest congestion and current illness. He is amendable to this plan. The benefits, risks, complications, anticipated healing time and management were discussed in detail again today and he is demonstrated significant improvement throughout the course of his care here at the wound healing center. I answered all his questions. He understands that he is at significant risk for limb loss and our goal at this time is to control any infectious process and establish a clear level of perfusion. To co ntinue with nutritional supplementation, Fred. To return to clinic in 1 week for physician reevaluation or call sooner if he has any questions or concerns.
[2018-12-26 13:40] VITALS: BP 123/60; PULSE 61; RESP 18; TEMP 36.5; BMI 24.3
--- NOTE | 2018-12-26 15:54 | PCM.WC.PN ---
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 Code(s): L97.922 - Non-pressure chronic ulcer of unspecified part of left lower leg with fat layer exposed (2) Ulcer of right lower extremity with fat layer exposed Status: Chronic Code(s): L97.912 - Non-pressure chronic ulcer of unspecified part of right lower leg with fat layer exposed (3) Chronic refractory osteomyelitis of right foot Status: Chronic Code(s): M86.671 - Other chronic osteomyelitis,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 (4) Ulcer of right foot with fat layer exposed Status: Chronic Code(s): L97.512 - Non-pressure chronic ulcer of other part of right foot with fat layer exposed Comment: previously unstageable pressure ulcer (5) Paralysis Status: Chronic Code(s): G83.9 - Paralytic syndrome, unspecified (6) Malnutrition Status: Chronic Code(s): E46 - Unspecified protein-calorie malnutrition (7) Delayed wound healing Status: Chronic Code(s): T14.8XXD - Other injury of unspecified body region, subsequent encounter (8) Edema leg Status: Chronic Code(s): R60.0 - Localized edema (9) Hypergranulation Status: Acute Code(s): L92.9 - Granulomatous disorder of the skin and subcutaneous tissue, unspecified Type of Wound Date of Service: 12/26/18 Chief Complaint: 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 Ulcer with fat tissue exposed left leg, right leg, right ankle. Ulcer right heel with fat and fascial layer exposed. Previously medically treated osteomyelitis. Paraplegia History of Wound: This 83-year-old male with multiple comorbidities was seen at the wound healing center for pressure ulcers to bilateral lower extremities. He previously had versa jet debridement in the operating room with application of advanced wound care products including amniofill and epicord to the left leg as well as the right leg, ankle, and heel. He also previously completed a vascular surgery evaluation with Dr. De Anda and an Angio without any identifiable intervention noted. He denies fever, chill, nausea, vomiting. He is a paraplegic and presents in a wheelchair. He continues to take Fred supplementation. He did obtain bilateral donut offloading pillows and this helps keep pressure off the sites. He has taken a short break from hyperbaric oxygen therapy due to his recent cold. He relates he is starting to feel better and he is eager to resume. He is with his today. Progress of Wound: Improving - Physical Exam Vital Signs Temp Pulse Resp BP 97.7 F L 61 18 123/60 H 12/26/18 13:40 12/26/18 13:40 12/26/18 13:40 12/26/18 13:40 General: Alert, Oriented x3, Cooperative Extremities: No cyanosis, Capillary Refill Less than 3 Seconds, No Calf Tenderness, Diminished Peripheral Pulses, Edema - Mild bilateral lower extremities, - - Paralysis bilateral lower extremities. Patient presents in wheelchair Skin: Ulcer/ Wound - No purulence, erythema, streaking, odor, or acute signs of infection. No exposed bone or muscle tissue or eschar bilateral. There is some hyper granulation tissue noted to the left ulcer site again. Full epithelialization is noted to the lateral malleolus ulcer site in the right lower extremity and also to the lateral mid leg on the right. Bilateral peripheral skin is hairless and atrophic Wound Measurements and Assessment WC - Nurse 1 - General Ulcer Measurement Start: 11/28/18 11:03 Freq: Status: Active Protocol: Activity Type Activity Date Activity User E-Sign Co-Sign Detail Recorded Client Recorded Date Recorded By Document 12/26/18 13:40 [facility] [id number] 12/26/18 13:59 [facility] 12/26/18 13:40 Wound Center Nurse 1 [Ulcer Assessment] #7 RLat LE -Combined with other wound No -Date of Last Picture (Recall this 12/26/18 field) -Photo Taken Yes -Epithelialization Small 1-33% -Tunneling No -Undermining/Tunneling No -Circular Undermining No -Exudate Amt Medium -Exudate Type Serosanguineous -Wound Margin Thickened -Granulation Amt Small (1-33%) -Granulation Quality Red -Slough/Fibrin Yes -Necrosis Amt Large (67-100%) -Necrotic Tissue Type Adherent Slough -Texture (Denisse-wound Skin Appearance) Scarring -Moisture (Denisse-wound Skin Appearance Dry/Scaly ) -Color (Denisse-wound Skin Appearance) Hemosiderin Staining -Temperature (Denisse-wound Skin No Abnormality Appearance) (Pt Warm) -Tenderness on Palpation (Denisse-wound Yes Skin Appearance) -Ulcer Cleansing Wound Cleanser -Foul Odor after Cleansing No -Anesthetic Used 4% Lidocaine Solution #5 Posterior LLE -Combined with other wound No -Current Size (cm) - Length 1.8 -Current Size (cm) - Width 0.7 -Current Size (cm) - Depth 0.1 -Total Square Cm 1.26 -Date of Last Picture (Recall this 12/26/18 field) -Photo Taken Yes -Epithelialization None Present -Tunneling No -Undermining/Tunneling No -Circular Undermining No -Exudate Amt Medium -Exudate Type Serosanguineous -Wound Margin Flat & Intact -Granulation Amt Small (1-33%) -Granulation Quality Hyper- granulation Red -Slough/Fibrin Yes -Necrosis Amt Large (67-100%) -Necrotic Tissue Type Eschar -Texture (Denisse-wound Skin Appearance) Scarring -Moisture (Denisse-wound Skin Appearance Dry/Scaly ) -Color (Denisse-wound Skin Appearance) Erythema Hemosiderin Staining -Temperature (Denisse-wound Skin No Abnormality Appearance) (Pt Warm) -Tenderness on Palpation (Denisse-wound Yes Skin Appearance) -Ulcer Cleansing Wound Cleanser -Foul Odor after Cleansing No -Anesthetic Used 4% Lidocaine Solution #3 Right Heel -Combined with other wound No -Current Size (cm) - Length 1.2 -Current Size (cm) - Width 4.3 -Current Size (cm) - Depth 0.2 -Total Square Cm 5.16 -Date of Last Picture (Recall this 12/26/18 field) -Photo Taken Yes -Epithelialization None Present -Tunneling No -Undermining/Tunneling No -Circular Undermining No -Exudate Amt Medium -Exudate Type Serosanguineous -Wound Margin Flat & Intact -Granulation Amt Small (1-33%) -Granulation Quality Hyper- granulation Red -Slough/Fibrin Yes -Necrosis Amt Large (67-100%) -Necrotic Tissue Type Adherent Slough -Texture (Denisse-wound Skin Appearance) Scarring -Moisture (Denisse-wound Skin Appearance Dry/Scaly ) -Color (Denisse-wound Skin Appearance) Erythema -Temperature (Denisse-wound Skin No Abnormality Appearance) (Pt Warm) -Tenderness on Palpation (Denisse-wound Yes Skin Appearance) -Ulcer Cleansing Wound Cleanser -Foul Odor after Cleansing No -Anesthetic Used 4% Lidocaine Solution #2 Right Lateral Ankle -Combined with other wound No -Current Size (cm) - Length 1.2 -Current Size (cm) - Width 1.4 -Current Size (cm) - Depth 0.1 -Total Square Cm 1.68 -Date of Last Picture (Recall this 12/26/18 field) -Photo Taken Yes -Epithelialization None Present -Tunneling No -Undermining/Tunneling No -Circular Undermining No -Exudate Amt None Present -Wound Margin Flat & Intact -Granulation Amt None Present (0 %) -Slough/Fibrin Yes -Necrosis Amt Large (67-100%) -Necrotic Tissue Type Eschar -Texture (Denisse-wound Skin Appearance) Scarring -Moisture (Denisse-wound Skin Appearance Dry/Scaly ) -Color (Denisse-wound Skin Appearance) Erythema -Temperature (Denisse-wound Skin No Abnormality Appearance) (Pt Warm) -Tenderness on Palpation (Denisse-wound Yes Skin Appearance) -Ulcer Cleansing Wound Cleanser -Foul Odor after Cleansing No -Anesthetic Used 4% Lidocaine Solution [Edema Assessment] -Lower Limb Edema Present No -Right Calf (cm) 27 -Right Ankle (cm) 20.4 -Left Calf (cm) 29 -Left Ankle (cm) 23 WC - Nurse 2 - General Ulcer CM Notes Start: 11/28/18 11:03 Freq: Status: Active Protocol: Activity Type Activity Date Activity User E-Sign Co-Sign Detail Recorded Client Recorded Date Recorded By Document 12/26/18 14:17 [facility] [id number] 12/26/18 14:28 [facility] 12/26/18 14:17 Wound Center Nurse 2 [Procedure/Treatment] #7 RLat LE -Time 14:24 -Correct Patient Yes -Correct Side, Site, Position Yes -Correct Procedure Yes -Procedure Performed Yes -Type of Procedure Debridement -Clinical Debridement Subcutaneous -Post Debridement Size (cm) - Length 7.6 -Post Debridement Size (cm) - Width 1.2 -Post Debridement Size (cm) - Depth 0.5 -Total Square Cm 9.12 -Wound/Ulcer Outcome Not Healed -Ulcer Cleansing Rinsed/ Irrigated with Saline -Foul Odor after Cleansing No -Bioengineered Tissue Yes -Type of bioengineered Tissue EPIFIX -Expiration Date 06/27/23 -Product Lot Number [id number] -Percent Used 100 -Saline Lot Number [id number] -Bleeding Controlled with Pressure -Offloading No -Treatment Response Procedure Tolerated Well #5 Posterior LLE -Time 14:17 -Correct Patient Yes -Correct Side, Site, Position Yes -Correct Procedure Yes -Procedure Performed Yes -Type of Procedure Debridement -Clinical Debridement Subcutaneous -Post Debridement Size (cm) - Length 1.8 -Post Debridement Size (cm) - Width 0.8 -Post Debridement Size (cm) - Depth 0.1 -Total Square Cm 1.44 -Wound/Ulcer Outcome Not Healed -Ulcer Cleansing Rinsed/ Irrigated with Saline -Foul Odor after Cleansing No -Bioengineered Tissue No -Bleeding Controlled with Pressure Silver Nitrate -Offloading Yes -Treatment Response Procedure Tolerated Well #3 Right Heel -Time 14:18 -Correct Patient Yes -Correct Side, Site, Position Yes -Correct Procedure Yes -Procedure Performed Yes -Type of Procedure Debridement -Clinical Debridement Subcutaneous -Post Debridement Size (cm) - Length 1.3 -Post Debridement Size (cm) - Width 4.3 -Post Debridement Size (cm) - Depth 0.2 -Total Square Cm 5.59 -Wound/Ulcer Outcome Not Healed -Ulcer Cleansing Rinsed/ Irrigated with Saline -Foul Odor after Cleansing No -Bioengineered Tissue Yes -Type of bioengineered Tissue EPIFIX -Expiration Date 06/27/23 -Product Lot Number [id number] -Percent Used 100 -Saline Lot Number [id number] -Bleeding Controlled with Pressure -Offloading No -Treatment Response Procedure Tolerated Well #2 Right Lateral Ankle -Time 14:26 -Correct Patient Yes -Correct Side, Site, Position Yes -Correct Procedure Yes -Procedure Performed Yes -Type of Procedure Debridement -Clinical Debridement Subcutaneous -Post Debridement Size (cm) - Length 1.3 -Post Debridement Size (cm) - Width 1.4 -Post Debridement Size (cm) - Depth 0.1 -Total Square Cm 1.82 -Wound/Ulcer Outcome Not Healed -Ulcer Cleansing Rinsed/ Irrigated with Saline -Foul Odor after Cleansing No -Bioengineered Tissue Yes -Type of bioengineered Tissue EPIFIX -Expiration Date 06/27/23 -Product Lot Number [id number] -Percent Used 100 -Saline Lot Number [id number] -Bleeding Controlled with Pressure -Offloading No -Treatment Response Procedure Tolerated Well [See Physician Procedure note for Specifics] Pain Scale: 0-10 Numeric [Pain] -Is Patient Pain Free? Yes Musculoskeletal: No Tenderness to Palpation of Joints or Extremities, Muscle Wasting, - - Compartments are soft to palpate bilateral lower extremities Neurological: - - Lack of epicritic sensation light touch bilateral lower extremities Psych/Mental Status: Normal Affect, Appropriate Debridement Note Post-Debridement Measurements/Treatment WC - Nurse 2 - General Ulcer CM Notes Start: 11/28/18 11:03 Freq: Status: Active Protocol: Activity Type Activity Date Activity User E-Sign Co-Sign Detail Recorded Client Recorded Date Recorded By Document 11/28/18 11:36 [id number] 11/28/18 11:42 Document 12/05/18 14:18 [id number] 12/05/18 14:22 Document 12/12/18 14:38 [id number] 12/12/18 14:47 Document 12/19/18 10:39 [id number] 12/19/18 10:44 Document 12/26/18 14:17 [id number] 12/26/18 14:28 11/28/18 12/05/18 12/12/18 11:36 14:18 14:38 Wound Center Nurse 2 #7 RLat LE -Time 11:36 14:18 14:39 -Correct Patient Yes Yes Yes -Correct Side, Site, Position Yes Yes Yes -Correct Procedure Yes Yes Yes -Procedure Performed Yes Yes Yes -Type of Procedure Debridement Debridement Debridement -Clinical Debridement Subcutaneous Subcutaneous Subcutaneous -Post Debridement Size (cm) - Length 7.8 6.2 8 -Post Debridement Size (cm) - Width 2.4 2.1 2.7 -Post Debridement Size (cm) - Depth 0.7 0.2 0.6 -Total Square Cm 18.72 13.02 21.6 -Wound/Ulcer Outcome Not Healed Not Healed Not Healed -Ulcer Cleansing Rinsed/ Rinsed/ Rinsed/ Irrigated with Irrigated with Irrigated with Saline Saline Saline -Foul Odor after Cleansing No No No -Bioengineered Tissue No Yes Yes -Type of bioengineered Tissue EPIFIX EPIFIX -Expiration Date 06/27/23 06/27/23 -Product Lot Number [id number] -Percent Used 100 100 -Saline Lot Number [id number] -Bleeding Controlled with Pressure Pressure Pressure -Offloading No No No -Treatment Response Procedure Procedure Procedure Tolerated Well Tolerated Well Tolerated Well #5 Posterior LLE -Time 11:37 14:19 14:39 -Correct Patient Yes Yes Yes -Correct Side, Site, Position Yes Yes Yes -Correct Procedure Yes Yes Yes -Procedure Performed Yes Yes Yes -Type of Procedure Debridement Debridement Debridement -Clinical Debridement Subcutaneous Subcutaneous Subcutaneous -Post Debridement Size (cm) - Length 2.5 1.3 2.4 -Post Debridement Size (cm) - Width 2 2 2 -Post Debridement Size (cm) - Depth 0.1 0.2 0.1 -Total Square Cm 5.0 2.6 4.8 -Wound/Ulcer Outcome Not Healed Not Healed Not Healed -Ulcer Cleansing Rinsed/ Rinsed/ Rinsed/ Irrigated with Irrigated with Irrigated with Saline Saline Saline -Foul Odor after Cleansing No No No -Bioengineered Tissue No No No -Type of bioengineered Tissue -Expiration Date -Product Lot Number -Percent Used -Saline Lot Number -Bleeding Controlled with Pressure Pressure Pressure Silver Nitrate Silver Nitrate Silver Nitrate -Offloading No No No -Treatment Response Procedure Procedure Procedure Tolerated Well Tolerated Well Tolerated Well #3 Right Heel -Time 11:37 14:19 14:44 -Correct Patient Yes Yes Yes -Correct Side, Site, Position Yes Yes Yes -Correct Procedure Yes Yes Yes -Procedure Performed Yes Yes Yes -Type of Procedure Debridement Debridement Debridement -Clinical Debridement Subcutaneous Subcutaneous Subcutaneous -Post Debridement Size (cm) - Length 2 3 1.8 -Post Debridement Size (cm) - Width 4.4 4.8 5 -Post Debridement Size (cm) - Depth 0.2 0.2 0.3 -Total Square Cm 8.8 14.4 9.0 -Wound/Ulcer Outcome Not Healed Not Healed Not Healed -Ulcer Cleansing Rinsed/ Rinsed/ Rinsed/ Irrigated with Irrigated with Irrigated with Saline Saline Saline -Foul Odor after Cleansing No No No -Bioengineered Tissue Yes Yes Yes -Type of bioengineered Tissue EPIFIX EPIFIX EPIFIX -Expiration Date 06/27/23 06/27/23 06/27/23 -Product Lot Number [id number] -Percent Used 100 100 100 -Saline Lot Number [id number] -Bleeding Controlled with Pressure Pressure Pressure -Offloading No No No -Treatment Response Procedure Procedure Procedure Tolerated Well Tolerated Well Tolerated Well #2 Right Lateral Ankle -Time 11:41 14:19 14:45 -Correct Patient Yes Yes Yes -Correct Side, Site, Position Yes Yes Yes -Correct Procedure Yes Yes Yes -Procedure Performed Yes Yes Yes -Type of Procedure Debridement Debridement Debridement -Clinical Debridement Subcutaneous Subcutaneous Subcutaneous -Post Debridement Size (cm) - Length 1.8 2.5 0.2 -Post Debridement Size (cm) - Width 1.3 1.9 0.3 -Post Debridement Size (cm) - Depth 0.1 0.2 0.1 -Total Square Cm 2.34 4.75 0.06 -Wound/Ulcer Outcome Not Healed Not Healed Not Healed -Ulcer Cleansing Rinsed/ Rinsed/ Rinsed/ Irrigated with Irrigated with Irrigated with Saline Saline Saline -Foul Odor after Cleansing No No No -Bioengineered Tissue No Yes Yes -Type of bioengineered Tissue EPIFIX EPIFIX -Expiration Date 06/27/23 06/27/23 -Product Lot Number [id number] -Percent Used 100 100 -Saline Lot Number [id number] -Bleeding Controlled with Pressure Pressure Pressure -Offloading No No No -Treatment Response Procedure Procedure Procedure Tolerated Well Tolerated Well Tolerated Well Pain Scale: 0-10 Numeric Is Patient Pain Free? Yes Yes Yes 12/19/18 12/26/18 10:39 14:17 Wound Center Nurse 2 #7 RLat LE -Time 10:39 14:24 -Correct Patient Yes Yes -Correct Side, Site, Position Yes Yes -Correct Procedure Yes Yes -Procedure Performed Yes Yes -Type of Procedure Debridement Debridement -Clinical Debridement Subcutaneous Subcutaneous -Post Debridement Size (cm) - Length 8.3 7.6 -Post Debridement Size (cm) - Width 2.7 1.2 -Post Debridement Size (cm) - Depth 0.6 0.5 -Total Square Cm 22.41 9.12 -Wound/Ulcer Outcome Not Healed Not Healed -Ulcer Cleansing Rinsed/ Rinsed/ Irrigated with Irrigated with Saline Saline -Foul Odor after Cleansing No No -Bioengineered Tissue Yes Yes -Type of bioengineered Tissue EPIFIX EPIFIX -Expiration Date 05/27/23 06/27/23 -Product Lot Number [id number] -Percent Used 100 100 -Saline Lot Number [id number] -Bleeding Controlled with Pressure Pressure -Offloading No No -Treatment Response Procedure Procedure Tolerated Well Tolerated Well #5 Posterior LLE -Time 10:40 14:17 -Correct Patient Yes Yes -Correct Side, Site, Position Yes Yes -Correct Procedure Yes Yes -Procedure Performed Yes Yes -Type of Procedure Debridement Debridement -Clinical Debridement Subcutaneous Subcutaneous -Post Debridement Size (cm) - Length 1.5 1.8 -Post Debridement Size (cm) - Width 1.3 0.8 -Post Debridement Size (cm) - Depth 0.1 0.1 -Total Square Cm 1.95 1.44 -Wound/Ulcer Outcome Not Healed Not Healed -Ulcer Cleansing Rinsed/ Rinsed/ Irrigated with Irrigated with Saline Saline -Foul Odor after Cleansing No No -Bioengineered Tissue Yes No -Type of bioengineered Tissue EPIFIX -Expiration Date 05/27/23 -Product Lot Number [id number] -Percent Used 100 -Saline Lot Number [id number] -Bleeding Controlled with Pressure Pressure Silver Nitrate -Offloading No Yes -Treatment Response Procedure Procedure Tolerated Well Tolerated Well #3 Right Heel -Time 10:40 14:18 -Correct Patient Yes Yes -Correct Side, Site, Position Yes Yes -Correct Procedure Yes Yes -Procedure Performed Yes Yes -Type of Procedure Debridement Debridement -Clinical Debridement Subcutaneous Subcutaneous -Post Debridement Size (cm) - Length 1.5 1.3 -Post Debridement Size (cm) - Width 5 4.3 -Post Debridement Size (cm) - Depth 0.1 0.2 -Total Square Cm 7.5 5.59 -Wound/Ulcer Outcome Not Healed Not Healed -Ulcer Cleansing Rinsed/ Rinsed/ Irrigated with Irrigated with Saline Saline -Foul Odor after Cleansing No No -Bioengineered Tissue Yes Yes -Type of bioengineered Tissue EPIFIX EPIFIX -Expiration Date 05/27/23 06/27/23 -Product Lot Number [id number] -Percent Used 100 100 -Saline Lot Number [id number] -Bleeding Controlled with Pressure Pressure -Offloading No No -Treatment Response Procedure Procedure Tolerated Well Tolerated Well #2 Right Lateral Ankle -Time 10:41 14:26 -Correct Patient Yes Yes -Correct Side, Site, Position Yes Yes -Correct Procedure Yes Yes -Procedure Performed Yes Yes -Type of Procedure Debridement Debridement -Clinical Debridement Subcutaneous Subcutaneous -Post Debridement Size (cm) - Length 0.2 1.3 -Post Debridement Size (cm) - Width 0.2 1.4 -Post Debridement Size (cm) - Depth 0.1 0.1 -Total Square Cm 0.04 1.82 -Wound/Ulcer Outcome Not Healed Not Healed -Ulcer Cleansing Rinsed/ Rinsed/ Irrigated with Irrigated with Saline Saline -Foul Odor after Cleansing No No -Bioengineered Tissue Yes Yes -Type of bioengineered Tissue EPIFIX EPIFIX -Expiration Date 05/27/23 06/27/23 -Product Lot Number [id number] -Percent Used 100 100 -Saline Lot Number [id number] -Bleeding Controlled with Pressure Pressure -Offloading No No -Treatment Response Procedure Procedure Tolerated Well Tolerated Well Pain Scale: 0-10 Numeric Is Patient Pain Free? Yes Yes Wound debrided: lateral leg Laterality: Left Type of Debridement: Excisional debridement Anesthesia Used: 5% Lidocaine Gel Depth: in the subcutaneous layer Percentage of wound debrided: 100 Instrument Used: #15 blade, - - silver nitrate applied Tissue Removed: fibrous, devitalized subcutaneous, biofilm, slough Severity: Fat Layer Exposed Amount of bleeding with debridement: Mild Bleeding Controlled with: Pressure Patient tolerated procedure well - Additional Wound Wound debrided: heel Laterality: Right Type of Debridement: Excisional debridement Anesthesia Used: 5% Lidocaine Gel Depth: in the subcutaneous layer Percentage of wound debrided: 100 Instrument Used: #15 blade Tissue Removed: fibrous, devitalized subcutaneous, biofilm, slough Severity: Fat Layer Exposed Amount of bleeding with debridement: Mild Bleeding Controlled with: Pressure Patient tolerated procedure: Patient tolerated procedure well - Additional Wound Wound debrided: lateral leg Laterality: Right Type of Debridement: Excisional debridement Anesthesia Used: 5% Lidocaine Gel Depth: in the subcutaneous layer Percentage of wound debrided: 100 Instrument Used: #15 blade Tissue Removed: fibrous, devitalized subcutaneous, biofilm, slough Severity: Fat Layer Exposed Amount of bleeding with debridement: Mild Bleeding Controlled with: Compression and gauze Patient tolerated procedure: Patient tolerated procedure well Assessment/Plan Assessment: Right lateral ankle initially unstageable pressure ulcer-healed today. Right lateral leg ulcer, fat layer exposed. refractory osteomyelitis calcaneus, right. Right heel initially unstageable pressure ulcer, no cellulitis. fat layer exposed now -improving. Left leg ulcer fat layer exposed (lateral) -improving, hyper granulation tissue noted. Peripheral vascular disease with rest pain. Other comorbidities. Delayed healing. Malnutrition. Paralysis and gait impairment with wheelchair use Plan: I reviewed and discussed his case today. The advance wound care product remains intact. Debridement and a subcutaneous excisional manner was performed bilateral lower extremity is as noted in the clinical panel. Advanced wound care product, epi fix was applied to the right heel and right leg. This was secured in place with a wound veil, hydrogel, and Steri-Strips. Verbal consent was obtained prior to applying this. He tolerated this well. He was advised to keep this dressing clean, dry, and intact until follow-up next week. This is medically necessary to optimize healing. Today, a secondary dressing was applied with additional Tubigrip for continued edema management. He was advised to keep these clean, dry, and intact until follow-up next week. This will be monitored very closely and there does not appear to be an infection. He had recent noninvasive vascular studies performed which demonstrated noncompressible vessels in which ankle-brachial indices were not calculated. This is consistent with rest pain as well as multisegmental occlusive disease and vessel calcification. He did go for consultation with Dr. De Anda previously who formed an angioplasty to her in which intervention options were not identified. It is noted he does have perfusion opportunities available to the lower extremity on the right side. His labs were updated previously and discussed in his white blood cell count is 6.0, sedimentation rate 14, and hemoglobin A1c 5.8%. His updated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 x-rays do not demonstrate osseous destruction, periosteal reaction, soft tissue emphysema, acute fracture dislocation, or foreign body. Vessel calcification is seen on plain x-ray consistent with vessel disease. It is noted he completed a 6-week course of IV antibiotics and infectious disease has also been following him closely. He had a previous MRI which demonstrated mild marrow edema to the left calcaneus and lateral ankle consistent with osteomyelitis; the adjacent ulcer site have healed. He also had previous MRI which demonstrated these same findings to right calcaneus with adjacent ongoing delayed healing ulcer; this is the area of concern for refractory osteomyelitis at this time. Due to delayed healing, pain, and continued deep tissue exposure this is consistent with chronic osteomyelitis. I recommend hyperbaric oxygen therapy to optimize healing; this is medically necessary to optimize healing. It is noted his ejection fraction is 65%. He will see provider Mara this upcoming week to refill the prescription for hyperbaric therpay. He understands it is also safe for him to avoid chamber activity with chest congestion and current illness. He appears to be improving. He is amendable to this plan. The benefits, risks, complications, anticipated healing time and management were discussed in detail again today and he is demonstrated significant improvement throughout the course of his care here at the wound healing center. I answered all his questions. He understands that he is at significant risk for limb loss and our goal at this time is to control any infectious process and establish a clear level of perfusion. To continue with nutritional supplementation, Fred. To return to clinic in 1 week for physician reevaluation or call sooner if he has any questions or concerns.
== END 2018-12-27 23:59 ==
LOC: WC 10:15
PROVIDERS: Family Provider Family Medicine; PCP Family Medicine; Referring Provider Podiatrist; Visit Provider Podiatrist
DX: M86.671 Other chronic osteomyelitis,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 (principal); L97.822 Non-pressure chronic ulcer of other part of left lower leg with fat layer exposed; L97.312 Non-pressure chronic ulcer of right ankle with fat layer exposed; L97.422 Non-pressure chronic ulcer of left heel and midfoot with fat layer exposed; L97.412 Non-pressure chronic ulcer of right heel and midfoot with fat layer exposed; L97.522 Non-pressure chronic ulcer of other part of left foot with fat layer exposed; R60.0 Localized edema; G82.20 Paraplegia, unspecified
CPT/HCPCS: 11042; 15271; 15275; 99183; Q4186; G0277

== ENCOUNTER 2019-01-24 13:00 | Outpatient (RCR) | payer MEDICARE, OTHER, SELFPAY ==
[2018-12-28 01:14] VITALS: BP 123/60; PULSE 61; RESP 18; TEMP 36.5
[2019-01-01 13:48] VITALS: BP 124/56; PULSE 58; RESP 16; TEMP 36.3; BMI 24.3
--- NOTE | 2019-01-01 16:14 | HBO.CON.PC_ITS ---
(1) Ulcer of right lower extremity with necrosis of muscle Status: Chronic Current Visit: Yes Code(s): L97.913 - Non-pressure chronic ulcer of unspecified part of right lower leg with necrosis of muscle (2) Chronic osteomyelitis involving left ankle and foot Status: Acute Current Visit: Yes Code(s): M86.672 - Other chronic osteomyelitis, left ankle and foot (3) Other chronic osteomyelitis,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 Status: Chronic Current Visit: Yes Code(s): M86.671 - Other chronic osteomyelitis,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 (4) Non-pressure chronic ulcer of other part of right foot with fat layer exposed Status: Chronic Current Visit: Yes Code(s): L97.512 - Non-pressure chronic ulcer of other part of right foot with fat layer exposed (5) Ulcer of right lower extremity with fat layer exposed Status: Chronic Current Visit: Yes Code(s): L97.912 - Non-pressure chronic ulcer of unspecified part of right lower leg with fat layer exposed Comment: previously unstageable pressure ulcer (6) Malnutrition Status: Chronic Current Visit: Yes Code(s): E46 - Unspecified protein- calorie malnutrition (7) Paralysis Status: Chronic Current Visit: Yes Code(s): G83.9 - Paralytic syndrome, unspecified (8) Delayed wound healing Status: Chronic Current Visit: Yes Code(s): T14.8XXD - Other injury of unspecified body region, subsequent encounter History of Present Illness Presenting Chief Complaint: 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 Ulcer with fat tissue exposed left leg, right leg, right ankle. Ulcer right heel with fat and fascial layer exposed. Previously medically treated osteomyelitis. Paraplegia The patient is a 83 year old M who [facility] to evaluate the possibility of continuing hyperbaric oxygen therapy for treatment of chronic refractory osteomyelitis to the left calcaneus and lateral malleolus and right calcaneus and lateral malleolus. MRI of left ankle on 08/12/18 showed Mild marrow edema of the calcaneus and lateral malleolus with osteomyelitis versus stress injury. MRI of right ankle on 08/12/18 showed Marrow edema consistent with contiguous spread osteomyelitis of the calcaneus. Completed a 6 week course of IV antibiotics for Osteomyelitis 09/22/18. He was being followed by infectious disease. He completed 27 treatments of HBOT with improvement to his ulcers, although they are not completely healed. 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) Other chronic osteomyelitis,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 (Chronic) Ulcer of right foot with fat layer exposed (Chronic) previously unstageable pressure ulcer Paralysis (Chronic) Non-pressure chronic ulcer of other part of right foot with fat layer exposed (Chronic) Other specified peripheral vascular diseases (Chronic) Unstageable pressure ulcer of left foot (Chronic) Unstageable pressure ulcer of right foot (Chronic) Ulcer of left lower extremity with fat layer exposed (Chronic) previously unstageable pressure ulcer Malnutrition (Chronic) Delayed wound healing (Chronic) Edema leg (Chronic) Paralysis (Chronic) Ulcer of right lower extremity with fat layer exposed (Chronic) previously unstageable pressure ulcer Osteomyelitis (Chronic) Chronic pain (Chronic) Nocardia infection (Chronic) 2004, right arm and left leg, 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 Allergies/Adverse Reactions: Allergies Cephalosporins Allergy (Intermediate, Verified 11/06/18 08:58) Laryngospasms Penicillins Allergy (Intermediate, Verified 11/06/18 08:58) Rash IVP DYE Allergy (Uncoded 11/06/18 08:58) Rash Home Medications: Ambulatory Orders Medication Instructions Recorded RX: Losartan Potassium [Cozaar] 12.5 mg PO DAILY 01/12/16 RX: Riboflavin (Vitamin B2) 300 mg PO DAILY@1700 11/10/16 [Vitamin B2] RX: Ascorbic Acid [Vitamin C] 500 mg PO TID 07/05/18 RX: Gabapentin [Neurontin] 600 mg PO TID 07/05/18 RX: Peacham Carbonate 150 mg PO TID 07/05/18 RX: Furosemide [Lasix] 40 mg PO DAILY 08/11/18 RX: Magnesium 500 mg PO BID 08/11/18 RX: Sennosides/Docusate Sodium 2 each PO DAILY 08/11/18 [Senna-S Laxative Tablet] RX: traZODone [Desyrel] 25 mg PO QHS 08/11/18 RX: Collagenase [Santyl] 1 applic TOPICAL DAILY tube 08/14/18 RX: Mineral Oil/Petrolatum,White 1 applic TOPICAL BID jar 08/14/18 [Eucerin] Duloxetine Hcl [Cymbalta] 60 mg PO DAILY 11/06/18 Nutritional Supplement [Fred - 1 packet PO BIDCM 11/06/18 ORANGE FLAVOR] RX: Atorvastatin Calcium [Lipitor] 40 mg PO QHS 11/06/18 RX: Carvedilol [Coreg (Beta 3.125 mg PO BID 11/06/18 Krissy)] RX: Clopidogrel Bisulfate [Plavix] 75 mg PO DAILY 11/06/18 RX: Cyclobenzaprine [Flexeril] 2.5 mg PO QHS PRN 11/06/18 RX: Isosorbide Mononitrate 10 mg PO QHS 11/06/18 RX: Morphine Sulfate [Morphine 15 mg PO BID 11/06/18 Sulfate ER] RX: Multivitamins,Ther W-Minerals 1 tablet PO DAILY 11/06/18 [Multivitamin With Minerals] RX: Pyridoxine HCl [Vitamin B-6] 100 mg PO DAILY 11/06/18 RX: Smz/Tmp Ds [Bactrim Ds] 1 tablet PO DAILY 11/06/18 Tamsulosin HCl [Flomax] 0.4 mg PO 1700 11/06/18 Maternal Family History: - - , depression Offspring Family History: - - 2 children, 4 grand children, 1 great grandchild, all in good health Paternal Family History: - - Smoking Status: Never smoker Tobacco Use: Non-smoker Review of Systems Eyes: Denies: Blurred vision HEENT: Denies: Difficulty Hearing - He has bilteral eustacian tubes in place, Difficulty Swallowing, Ear Pain Cardiovascular: Denies: Chest Pain Respiratory: Denies: Cough, Shortness of Breath Gastrointestinal: Reports: Constipation. Denies: Abdominal Pain Genitourinary: Denies: Dysuria, Hematuria Musculoskeletal: Reports: - - paralysis Skin: Reports: Wounds - Ulcers of right foot, right lower extremity, left lower extremity-total of 4 (down from 7) Neurological: Reports: Headaches, - - shunt in place, is paralyzed in a wheel chair. Denies: Blurred vision, Slurred speech, Confusion Psychiatric: Denies: Anxiety - Physical Exam Vital Signs Temp Pulse Resp BP 97.3 F L 58 L 16 124/56 H 01/01/19 13:48 01/01/19 13:48 01/01/19 13:48 01/01/19 13:48 General: Alert, Oriented x3, Cooperative HEENT: PERRLA, TM's Clear - Bilateral tubes placed. Right ear has significant drainage but TM is clear Oral: Moist Mucosa Lungs: Clear to auscultation, Normal air movement, No rhonchi, No wheeze Cardiovascular: Regular rate, Regular Rhythm Abdomen: Bowel Sounds Present Extremities: Diminished Peripheral Pulses, Edema Skin: Ulcer/ Wound - 4 wounds, lateral RLE, posterior LLE, right lateral ankle and right heel Musculoskeletal: No Tenderness to Palpation of Joints or Extremities Neurological: Cranial nerves II-XII grossly intact Psych/Mental Status: Normal Affect, Appropriate Assessment/Plan Active Problems (Last Reviewed 08/13/18 @ 10:19 by Fernando Patterson MD) Ulcer of right lower extremity with fat layer exposed (Chronic) Ulcer of left lower extremity with necrosis of muscle (Chronic) Chronic osteomyelitis involving left ankle and foot (Acute) Ulcer of right lower extremity with necrosis of muscle (Chronic) Other chronic osteomyelitis,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 (Chronic) Paralysis (Chronic) Non-pressure chronic ulcer of other part of right foot with fat layer exposed (Chronic) Malnutrition (Chronic) Delayed wound healing (Chronic) Ulcer of right lower extremity with fat layer exposed (Chronic) previously unstageable pressure ulcer REGINA ROJAS is an appropriate candidate for hyperbaric oxygen therapy. Hyperbaric Oxygen Therapy would be an essential adjunct in the resolution and treatment of this patient's presenting problem. This patient has sufficient physiologic and psychological stamina to undergo the rigors of hyperbaric oxygen therapy. As such, I recommend the following: Hyperbaric Oxygen Treatments at 2.0 RAGHAV in 100% Oxygen for 90 minutes per treatment- with 2, 5 minute air breaks for 20 treatments. I have discussed the possible benefits of hyperbaric oxygen therapy with this patient. I have also presented and described the risks, including: air gas embolism, pneumothorax, central nervous system and pulmonary oxygen toxicity, flash pulmonary edema, hypoglycemia, reversible visual refractive changes, ear and sinus ericka-trauma, and confinement anxiety. The patient has verbalized understanding of these risks, and is still wanting to undergo hyperbaric oxygen therapy. The patient understands the significant time and transportation commitment involved in daily treatments of up to two hours duration and has stated that they are willing to commit to this therapy. Code Visit Office Visits / Consults: [id number] OV L3 Est
[2019-01-02 10:51] VITALS: BP 118/69; PULSE 65; RESP 16; TEMP 36.4; BMI 24.3
--- NOTE | 2019-01-02 11:41 | PN.PCM_ITS ---
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 Current Visit: Yes Code(s): L97.512 - Non-pressure chronic ulcer of other part of right foot with fat layer exposed (2) Ulcer of right lower extremity with fat layer exposed Status: Chronic Current Visit: Yes Code(s): L97.912 - Non-pressure chronic ulcer of unspecified part of right lower leg with fat layer exposed (3) Ulcer of left lower extremity with necrosis of muscle Status: Chronic Current Visit: Yes Code(s): L97.923 - Non-pressure chronic ulcer of unspecified part of left lower leg with necrosis of muscle (4) Other chronic osteomyelitis,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 Status: Acute Current Visit: Yes Code(s): M86.671 - Other chronic osteomyelitis,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 (5) Paralysis Status: Chronic Current Visit: Yes Code(s): G83.9 - Paralytic syndrome, unspecified (6) Malnutrition Status: Chronic Current Visit: Yes Code(s): E46 - Unspecified protein- calorie malnutrition (7) Delayed wound healing Status: Chronic Current Visit: Yes Code(s): T14.8XXD - Other injury of unspecified body region, subsequent encounter Type of Wound Date of Service: 01/02/19 Chief Complaint: 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 Ulcer with fat tissue exposed left leg, right leg, right ankle. Ulcer right heel with fat and fascial layer exposed. Previously medically treated osteomyelitis. Paraplegia History of Wound: This 83-year-old male with multiple comorbidities was seen at the wound healing center for pressure ulcers to bilateral lower extremities. He previously had versa jet debridement in the operating room with application of advanced wound care products including amniofill and epicord. He also previously completed a vascular surgery evaluation with Dr. De Anda and an Angio without any identifiable intervention noted. He denies fever, chill, nausea, vomiting. He is a paraplegic and presents in a wheelchair. He continues to take Fred supplementation. He uses bilateral donut offloading pillows and this helps keep pressure off the sites. He continues hyperbaric oxygen therapy. He is with his today. His cold has resolved and he is ready to return to the hyperbaric oxygen treatments today. He was given a new prescription for additional sessions as well. Progress of Wound: Improving - Physical Exam Vital Signs Temp Pulse Resp BP 97.5 F L 65 16 118/69 01/02/19 10:51 01/02/19 10:51 01/02/19 10:51 01/02/19 10:51 General: Alert, Oriented x3, Cooperative Extremities: No cyanosis, Capillary Refill Less than 3 Seconds, No Calf Tenderness - Negative Ayanna and Ortega. Paralysis bilateral lower extremities, Diminished Peripheral Pulses, Edema - Bilateral mild Skin: Ulcer/ Wound - Bilateral lower extremities no purulence, erythema, streaking, odor, infection, maceration, or hyper granulation tissue today. The peripheral skin is hairless and atrophic. Wound Measurements and Assessment WC - Nurse 1 - General Ulcer Measurement Start: 01/01/19 13:48 Freq: Status: Active Protocol: Activity Type Activity Date Activity User E-Sign Co-Sign Detail Recorded Client Recorded Date Recorded By Document 01/02/19 10:51 DV [id number] 01/02/19 11:13 DV 01/02/19 10:51 Wound Center Nurse 1 [Ulcer Assessment] #7 Lateral RLE -Combined with other wound No -Current Size (cm) - Length 1.2 -Current Size (cm) - Width 1.7 -Current Size (cm) - Depth 0.3 -Total Square Cm 2.04 -Photo Taken No -Epithelialization None Present -Tunneling No -Undermining/Tunneling No -Circular Undermining No -Exudate Amt None Present -Granulation Amt None Present (0 %) -Granulation Quality N/A -Necrosis Amt Large (67-100%) -Necrotic Tissue Type Adherent Slough -Structure Exposed None/Limited to Skin Breakdown -Texture (Denisse-wound Skin Appearance) Assessed Localized Edema Rash -Moisture (Denisse-wound Skin Appearance Assessed ) Dry/Scaly -Color (Denisse-wound Skin Appearance) Assessed Hemosiderin Staining -Temperature (Denisse-wound Skin No Abnormality Appearance) (Pt Warm) -Tenderness on Palpation (Denisse-wound No Skin Appearance) -Ulcer Cleansing Rinsed/ Irrigated with Saline #5 Posterior LLE -Combined with other wound No -Current Size (cm) - Length 0.1 -Current Size (cm) - Width 0.1 -Current Size (cm) - Depth 0.1 -Total Square Cm 0.01 -Photo Taken No -Epithelialization None Present -Tunneling No -Undermining/Tunneling No -Circular Undermining No -Exudate Amt None Present -Wound Margin Indistinct, Non -Visible -Granulation Amt None Present (0 %) -Granulation Quality N/A -Slough/Fibrin Yes -Necrosis Amt Large (67-100%) -Necrotic Tissue Type Adherent Slough -Structure Exposed N/A -Texture (Denisse-wound Skin Appearance) Assessed Scarring Rash -Moisture (Denisse-wound Skin Appearance Assessed ) Dry/Scaly -Color (Denisse-wound Skin Appearance) Assessed Hemosiderin Staining -Foul Odor after Cleansing No -Anesthetic Used 4% Lidocaine Solution #3 Right Heel -Combined with other wound No -Current Size (cm) - Length 1.7 -Current Size (cm) - Width 4.0 -Current Size (cm) - Depth 0.1 -Total Square Cm 6.80 -Photo Taken No -Epithelialization None Present -Tunneling No -Undermining/Tunneling No -Circular Undermining No -Wound Margin Indistinct, Non -Visible -Granulation Amt None Present (0 %) -Granulation Quality N/A -Slough/Fibrin Yes -Necrosis Amt Large (67-100%) -Necrotic Tissue Type Adherent Slough -Structure Exposed None/Limited to Skin Breakdown -Texture (Denisse-wound Skin Appearance) Assessed Localized Edema Scarring -Moisture (Denisse-wound Skin Appearance Assessed ) Dry/Scaly -Color (Denisse-wound Skin Appearance) No Abnormality Assessed -Temperature (Denisse-wound Skin No Abnormality Appearance) (Pt Warm) -Ulcer Cleansing Rinsed/ Irrigated with Saline -Foul Odor after Cleansing No -Anesthetic Used 4% Lidocaine Solution #2 Right Lateral Ankle -Combined with other wound No -Current Size (cm) - Length 1.5 -Current Size (cm) - Width 1.0 -Current Size (cm) - Depth 0.1 -Total Square Cm 1.50 -Photo Taken No -Epithelialization None Present -Undermining/Tunneling No -Circular Undermining No -Exudate Amt None Present -Wound Margin Indistinct, Non -Visible -Granulation Amt None Present (0 %) -Granulation Quality N/A -Slough/Fibrin Yes -Necrosis Amt Large (67-100%) -Necrotic Tissue Type Adherent Slough -Structure Exposed None/Limited to Skin Breakdown -Texture (Denisse-wound Skin Appearance) Assessed Localized Edema Scarring -Moisture (Denisse-wound Skin Appearance Assessed ) Dry/Scaly -Color (Denisse-wound Skin Appearance) No Abnormality Assessed -Temperature (Denisse-wound Skin No Abnormality Appearance) (Pt Warm) -Tenderness on Palpation (Denisse-wound No Skin Appearance) -Ulcer Cleansing Rinsed/ Irrigated with Saline -Foul Odor after Cleansing No -Anesthetic Used 4% Lidocaine Solution [Edema Assessment] -Lower Limb Edema Present No -Right Calf (cm) 28.0 -Right Ankle (cm) 21.5 -Left Calf (cm) 29.5 -Left Ankle (cm) 22.7 Musculoskeletal: No Tenderness to Palpation of Joints or Extremities, Muscle Wasting Neurological: - - Lack of epicritic sensation light touch bilateral lower extremities Psych/Mental Status: Normal Affect, Appropriate Debridement Note Wound debrided: heel Laterality: Right Type of Debridement: Excisional debridement Anesthesia Used: 5% Lidocaine Gel Depth: in the subcutaneous layer Percentage of wound debrided: 100 Instrument Used: #15 blade Tissue Removed: fibrous, devitalized subcutaneous, biofilm, slough Severity: Fat Layer Exposed Amount of bleeding with debridement: Mild Bleeding Controlled with: Pressure Patient tolerated procedure well - Additional Wound Wound debrided: lateral leg Laterality: Right Type of Debridement: Excisional debridement Anesthesia Used: 5% Lidocaine Gel Depth: in the subcutaneous layer Percentage of wound debrided: 100 Instrument Used: #15 blade Tissue Removed: fibrous, devitalized subcutaneous, biofilm, slough Severity: Fat Layer Exposed Amount of bleeding with debridement: Mild Bleeding Controlled with: Pressure Patient tolerated procedure: Patient tolerated procedure well - Additional Wound Wound debrided: leg Laterality: Left Type of Debridement: Excisional debridement Anesthesia Used: 5% Lidocaine Gel Depth: in the subcutaneous layer Percentage of wound debrided: 100 Instrument Used: #15 blade Tissue Removed: fibrous, devitalized subcutaneous, biofilm, slough Severity: Fat Layer Exposed Amount of bleeding with debridement: Mild Bleeding Controlled with: Pressure Patient tolerated procedure: Patient tolerated procedure well Assessment/Plan Active Problems (Last Reviewed 08/13/18 @ 10:19 by Fernando Patterson MD) Ulcer of right lower extremity with fat layer exposed (Chronic) Ulcer of left lower extremity with necrosis of muscle (Chronic) Other chronic osteomyelitis,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 (Acute) Paralysis (Chronic) Non-pressure chronic ulcer of other part of right foot with fat layer exposed (Chronic) Malnutrition (Chronic) Delayed wound healing (Chronic) Assessment: Right lateral ankle unstageable pressure ulcer, no cellulitis. Fat layer exposed now. Right lateral leg ulcer, fat layer exposed. refractory osteomyelitis calcaneus, right. Right heel unstageable pressure ulcer, no cellulitis. fat layer exposed now. Left leg ulcer fat layer exposed (lateral). Peripheral vascular disease with rest pain. Other comorbidities. Delayed healing. Malnutrition. Paralysis and gait impairment with wheelchair use Plan: I reviewed and discussed his case today. The advance wound care product remains intact. Debridement and a subcutaneous excisional manner was performed bilateral lower extremity is as noted in the clinical panel. Advanced wound care product, epi fix was applied to the right heel and right leg. This was secured in place with a wound veil, hydrogel, and Steri-Strips. Verbal consent was obtained prior to applying this. He tolerated this well. He was advised to keep this dressing clean, dry, and intact until follow-up next week. This is medically necessary to optimize healing. Today, a secondary dressing was applied with additional Tubigrip for continued edema management. Aquacel Ag was applied to the left leg and he was advised to change this at least every 3 days. This will be monitored very closely and there does not appear to be an infection. He had recent noninvasive vascular studies performed which demonstrated noncompressible vessels in which ankle-brachial indices were not calculated. This is consistent with rest pain as well as multisegmental occlusive disease and vessel calcification. He did go for consultation with Dr. De Anda previously who formed an angioplasty to her in which intervention options were not identified. It is noted he does have perfusion opportunities available to the lower extremity on the right side. His labs were updated previously and discussed in his white blood cell count is 6.0, sedimentation rate 14, and hemoglobin A1c 5.8%. His updated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 x-rays do not demonstrate osseous destruction, periosteal reaction, soft tissue emphysema, acute fracture dislocation, or foreign body. Vessel calcification is seen on plain x-ray consistent with vessel disease. It is noted he completed a 6-week course of IV antibiotics and infectious disease has also been following him closely. He had a previous MRI which demonstrated mild marrow edema to the left calcaneus and lateral ankle consistent with osteomyelitis; the adjacent ulcer site have healed. He also had previous MRI which demonstrated these same findings to right calcaneus with adjacent ongoing delayed healing ulcer; this is the area of concern for refractory osteomyelitis at this time. Due to delayed healing, pain, and continued deep tissue exposure this is consistent with chronic osteomyelitis. I recommend hyperbaric oxygen therapy to optimize healing; this is medically necessary to optimize healing. It is noted his ejection fraction is 65%. Hyperbaric oxygen treatment continuation was discussed and he has been reevaluated by nurse practitioner Sandra. He will resume treatments this afternoon it is noted his cold has resolved. I answered all his questions. To continue with nutritional supplementation, Fred. To return to clinic in 1 week for physician reevaluation or call sooner if he has any questions or concerns.
--- NOTE | 2019-01-02 12:03 | PCM.HBO.PN ---
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 Ulcer with fat tissue exposed left leg, right leg, right ankle. Ulcer right heel with fat and fascial layer exposed. Previously medically treated osteomyelitis. 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 Progress: The patient appears to be tolerating hyperbaric oxygen therapy well. Today's a session represents the 27th such session of hyperbaric oxygen therapy. Tolerance of hyperbaric oxygen therapy: Hyperbaric oxygen therapy was administered as per the facility's protocol. The patient tolerated hyperbaric oxygen therapy well, without complaints or complications. Upon emergence from the hyperbaric chamber, the patient's vital signs remained stable. He was discharged in good condition. 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) Ulcer of right foot with fat layer exposed (Chronic) previously unstageable pressure ulcer Paralysis (Chronic) Non-pressure chronic ulcer of other part of right foot with fat layer exposed (Chronic) Other specified peripheral vascular diseases (Chronic) Unstageable pressure ulcer of left foot (Chronic) Unstageable pressure ulcer of right foot (Chronic) Ulcer of left lower extremity with fat layer exposed (Chronic) previously unstageable pressure ulcer Malnutrition (Chronic) Delayed wound healing (Chronic) Edema leg (Chronic) Paralysis (Chronic) Ulcer of right lower extremity with fat layer exposed (Chronic) previously unstageable pressure ulcer Osteomyelitis (Chronic) Chronic pain (Chronic) Nocardia infection (Chronic) 2004, right arm and left leg, 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 Allergies/Adverse Reactions: Allergies Cephalosporins Allergy (Intermediate, Verified 11/06/18 08:58) Laryngospasms Penicillins Allergy (Intermediate, Verified 11/06/18 08:58) Rash IVP DYE Allergy (Uncoded 11/06/18 08:58) Rash Home Medications: Ambulatory Orders Medication Instructions Recorded Losartan Potassium [Cozaar] 12.5 mg PO DAILY 01/12/16 Riboflavin (Vitamin B2) [Vitamin 300 mg PO DAILY@1700 11/10/16 B2] Ascorbic Acid [Vitamin C] 500 mg PO TID 07/05/18 Gabapentin [Neurontin] 600 mg PO TID 07/05/18 [place] Carbonate 150 mg PO TID 07/05/18 Furosemide [Lasix] 40 mg PO DAILY 08/11/18 Magnesium 500 mg PO BID 08/11/18 Sennosides/Docusate Sodium 2 each PO DAILY 08/11/18 [Senna-S Laxative Tablet] traZODone [Desyrel] 25 mg PO QHS 08/11/18 Collagenase [Santyl] 1 applic TOPICAL DAILY tube 08/14/18 Mineral Oil/Petrolatum,White 1 applic TOPICAL BID jar 08/14/18 [Eucerin] Atorvastatin Calcium [Lipitor] 40 mg PO QHS 11/06/18 Carvedilol [Coreg (Beta Krissy)] 3.125 mg PO BID 11/06/18 Clopidogrel Bisulfate [Plavix] 75 mg PO DAILY 11/06/18 Cyclobenzaprine [Flexeril] 2.5 mg PO QHS PRN 11/06/18 Duloxetine Hcl [Cymbalta] 60 mg PO DAILY 11/06/18 Isosorbide Mononitrate 10 mg PO QHS 11/06/18 Morphine Sulfate [Morphine Sulfate 15 mg PO BID 11/06/18 ER] Multivitamins,Ther W-Minerals 1 tablet PO DAILY 11/06/18 [Multivitamin With Minerals] Nutritional Supplement [Fred - 1 packet PO BIDCM 11/06/18 [place]] Pyridoxine HCl [Vitamin B-6] 100 mg PO DAILY 11/06/18 Smz/Tmp Ds [Bactrim Ds] 1 tablet PO DAILY 11/06/18 Tamsulosin HCl [Flomax] 0.4 mg PO 1700 11/06/18 Maternal Family History: - - , depression Paternal Family History: - - Offspring Family History: - - 2 children, 4 grand children, 1 great grandchild, all in good health Smoking Status: Never smoker Tobacco Use: Non-smoker Physical Exam Vital Signs Temp Pulse Resp BP 97.5 F L 65 16 118/69 01/02/19 10:51 01/02/19 10:51 01/02/19 10:51 01/02/19 10:51 General: Alert, Oriented x3, Cooperative HEENT: Atraumatic, TM's Clear Lungs: Clear to auscultation, Normal air movement Cardiovascular: Regular rate, Regular Rhythm, Murmur Psych/Mental Status: Normal Affect, Appropriate, Alert and oriented to time, place, person, mood and affect Assessment/Plan Active Problems (Last Reviewed 08/13/18 @ 10:19 by Fernando Patterson MD) Ulcer of right lower extremity with fat layer exposed (Chronic) Ulcer of left lower extremity with necrosis of muscle (Chronic) Other chronic osteomyelitis,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 (Acute) Paralysis (Chronic) Non-pressure chronic ulcer of other part of right foot with fat layer exposed (Chronic) Malnutrition (Chronic) Delayed wound healing (Chronic) The patient appears to be tolerating hyperbaric oxygen therapy well, which will be continued as per the patient's medical plan.
[2019-01-02 12:16] VITALS: BP 118/54; BP 118/69; PULSE 56; PULSE 85; RESP 16; TEMP 36.3; TEMP 36.5
[2019-01-03 10:31] VITALS: BP 126/60; BP 140/59; PULSE 62; PULSE 69; RESP 16; TEMP 36.5; TEMP 36.7
--- NOTE | 2019-01-03 11:36 | PCM.HBO.PN ---
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 Ulcer with fat tissue exposed left leg, right leg, right ankle. Ulcer right heel with fat and fascial layer exposed. Previously medically treated osteomyelitis. 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 Progress: The patient appears to be tolerating hyperbaric oxygen therapy well. Today's a session represents the 28th such session of hyperbaric oxygen therapy. Tolerance of hyperbaric oxygen therapy: Hyperbaric oxygen therapy was administered as per the facility's protocol. The patient tolerated hyperbaric oxygen therapy well, without complaints or complications. Upon emergence from the hyperbaric chamber, the patient's vital signs remained stable. He was discharged in good condition. 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) Other chronic osteomyelitis,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 (Chronic) Ulcer of right foot with fat layer exposed (Chronic) previously unstageable pressure ulcer Paralysis (Chronic) Non-pressure chronic ulcer of other part of right foot with fat layer exposed (Chronic) Other specified peripheral vascular diseases (Chronic) Unstageable pressure ulcer of left foot (Chronic) Unstageable pressure ulcer of right foot (Chronic) Ulcer of left lower extremity with fat layer exposed (Chronic) previously unstageable pressure ulcer Malnutrition (Chronic) Delayed wound healing (Chronic) Edema leg (Chronic) Paralysis (Chronic) Ulcer of right lower extremity with fat layer exposed (Chronic) previously unstageable pressure ulcer Osteomyelitis (Chronic) Chronic pain (Chronic) Nocardia infection (Chronic) 2004, right arm and left leg, 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 Allergies/Adverse Reactions: Allergies Cephalosporins Allergy (Intermediate, Verified 11/06/18 08:58) Laryngospasms Penicillins Allergy (Intermediate, Verified 11/06/18 08:58) Rash IVP DYE Allergy (Uncoded 11/06/18 08:58) Rash Home Medications: Ambulatory Orders Medication Instructions Recorded Losartan Potassium [Cozaar] 12.5 mg PO DAILY 01/12/16 Riboflavin (Vitamin B2) [Vitamin 300 mg PO DAILY@1700 11/10/16 B2] Ascorbic Acid [Vitamin C] 500 mg PO TID 07/05/18 Gabapentin [Neurontin] 600 mg PO TID 07/05/18 [place] Carbonate 150 mg PO TID 07/05/18 Furosemide [Lasix] 40 mg PO DAILY 08/11/18 Magnesium 500 mg PO BID 08/11/18 Sennosides/Docusate Sodium 2 each PO DAILY 08/11/18 [Senna-S Laxative Tablet] traZODone [Desyrel] 25 mg PO QHS 08/11/18 Collagenase [Santyl] 1 applic TOPICAL DAILY tube 08/14/18 Mineral Oil/Petrolatum,White 1 applic TOPICAL BID jar 08/14/18 [Eucerin] Atorvastatin Calcium [Lipitor] 40 mg PO QHS 11/06/18 Carvedilol [Coreg (Beta Krissy)] 3.125 mg PO BID 11/06/18 Clopidogrel Bisulfate [Plavix] 75 mg PO DAILY 11/06/18 Cyclobenzaprine [Flexeril] 2.5 mg PO QHS PRN 11/06/18 Duloxetine Hcl [Cymbalta] 60 mg PO DAILY 11/06/18 Isosorbide Mononitrate 10 mg PO QHS 11/06/18 Morphine Sulfate [Morphine Sulfate 15 mg PO BID 11/06/18 ER] Multivitamins,Ther W-Minerals 1 tablet PO DAILY 11/06/18 [Multivitamin With Minerals] Nutritional Supplement [Fred - 1 packet PO BIDCM 11/06/18 [place]] Pyridoxine HCl [Vitamin B-6] 100 mg PO DAILY 11/06/18 Smz/Tmp Ds [Bactrim Ds] 1 tablet PO DAILY 11/06/18 Tamsulosin HCl [Flomax] 0.4 mg PO 1700 11/06/18 Maternal Family History: - - , depression Paternal Family History: - - Offspring Family History: - - 2 children, 4 grand children, 1 great grandchild, all in good health Smoking Status: Never smoker Tobacco Use: Non-smoker Physical Exam Vital Signs Temp Pulse Resp BP 97.7 F L 85 16 118/69 01/02/19 12:16 01/02/19 12:16 01/02/19 12:16 01/02/19 12:16 General: Alert, Oriented x3, Cooperative, No apparent distress HEENT: Atraumatic, Normocephalic Lungs: Normal air movement Cardiovascular: Regular rate Psych/Mental Status: Normal Affect Assessment/Plan Active Problems (Last Reviewed 08/13/18 @ 10:19 by Fernando Patterson MD) Ulcer of right lower extremity with fat layer exposed (Chronic) Ulcer of left lower extremity with necrosis of muscle (Chronic) Chronic osteomyelitis involving left ankle and foot (Acute) Ulcer of right lower extremity with necrosis of muscle (Chronic) Other chronic osteomyelitis,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 (Chronic) Paralysis (Chronic) Non-pressure chronic ulcer of other part of right foot with fat layer exposed (Chronic) Malnutrition (Chronic) Delayed wound healing (Chronic) Ulcer of right lower extremity with fat layer exposed (Chronic) previously unstageable pressure ulcer The patient appears to be tolerating hyperbaric oxygen therapy well, which will be continued as per the patient's medical plan.
[2019-01-04 12:39] VITALS: BP 148/75; BP 149/68; PULSE 63; RESP 18; TEMP 36.1; TEMP 36.4
--- NOTE | 2019-01-04 17:42 | PCM.HBO.PN ---
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 Ulcer with fat tissue exposed left leg, right leg, right ankle. Ulcer right heel with fat and fascial layer exposed. Previously medically treated osteomyelitis. 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 Progress: The patient appears to be tolerating hyperbaric oxygen therapy well. Today's a session represents the 29th such session of hyperbaric oxygen therapy. Tolerance of hyperbaric oxygen therapy: Hyperbaric oxygen therapy was administered as per the facility's protocol. The patient tolerated hyperbaric oxygen therapy well, without complaints or complications. Upon emergence from the hyperbaric chamber, the patient's vital signs remained stable. He was discharged in good condition. 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) Other chronic osteomyelitis,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 (Chronic) Ulcer of right foot with fat layer exposed (Chronic) previously unstageable pressure ulcer Paralysis (Chronic) Non-pressure chronic ulcer of other part of right foot with fat layer exposed (Chronic) Other specified peripheral vascular diseases (Chronic) Unstageable pressure ulcer of left foot (Chronic) Unstageable pressure ulcer of right foot (Chronic) Ulcer of left lower extremity with fat layer exposed (Chronic) previously unstageable pressure ulcer Malnutrition (Chronic) Delayed wound healing (Chronic) Edema leg (Chronic) Paralysis (Chronic) Ulcer of right lower extremity with fat layer exposed (Chronic) previously unstageable pressure ulcer Osteomyelitis (Chronic) Chronic pain (Chronic) Nocardia infection (Chronic) 2004, right arm and left leg, 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 Carbonate 150 mg PO TID 07/05/18 Furosemide [Lasix] 40 mg PO DAILY 08/11/18 Magnesium 500 mg PO BID 08/11/18 Sennosides/Docusate Sodium 2 each PO DAILY 08/11/18 [Senna-S Laxative Tablet] traZODone [Desyrel] 25 mg PO QHS 08/11/18 Collagenase [Santyl] 1 applic TOPICAL DAILY tube 08/14/18 Mineral Oil/Petrolatum,White 1 applic TOPICAL BID jar 08/14/18 [Eucerin] Atorvastatin Calcium [Lipitor] 40 mg PO QHS 11/06/18 Carvedilol [Coreg (Beta Krissy)] 3.125 mg PO BID 11/06/18 Clopidogrel Bisulfate [Plavix] 75 mg PO DAILY 11/06/18 Cyclobenzaprine [Flexeril] 2.5 mg PO QHS PRN 11/06/18 Duloxetine Hcl [Cymbalta] 60 mg PO DAILY 11/06/18 Isosorbide Mononitrate 10 mg PO QHS 11/06/18 Morphine Sulfate [Morphine Sulfate 15 mg PO BID 11/06/18 ER] Multivitamins,Ther W-Minerals 1 tablet PO DAILY 11/06/18 [Multivitamin With Minerals] Nutritional Supplement [Fred - 1 packet PO BIDCM 11/06/18 [place]] Pyridoxine HCl [Vitamin B-6] 100 mg PO DAILY 11/06/18 Smz/Tmp Ds [Bactrim Ds] 1 tablet PO DAILY 11/06/18 Tamsulosin HCl [Flomax] 0.4 mg PO 1700 11/06/18 Maternal Family History: - - , depression Paternal Family History: - - Offspring Family History: - - 2 children, 4 grand children, 1 great grandchild, all in good health Lives: Spouse/ Significant Other Smoking Status: Never smoker Tobacco Use: Non-smoker Physical Exam Vital Signs Temp Pulse Resp BP 97.6 F L 63 18 148/75 H 01/04/19 12:39 01/04/19 12:39 01/04/19 12:39 01/04/19 12:39 General: Alert, Oriented x3, Cooperative, No apparent distress Psych/Mental Status: Normal Affect, Appropriate Assessment/Plan Active Problems (Last Reviewed 08/13/18 @ 10:19 by Fernando Patetrson MD) Ulcer of right lower extremity with fat layer exposed (Chronic) Ulcer of left lower extremity with necrosis of muscle (Chronic) Chronic osteomyelitis involving left ankle and foot (Acute) Ulcer of right lower extremity with necrosis of muscle (Chronic) Other chronic osteomyelitis,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 (Chronic) Paralysis (Chronic) Non-pressure chronic ulcer of other part of right foot with fat layer exposed (Chronic) Malnutrition (Chronic) Delayed wound healing (Chronic) Ulcer of right lower extremity with fat layer exposed (Chronic) previously unstageable pressure ulcer The patient appears to be tolerating hyperbaric oxygen therapy well, which will be continued as per the patient's medical plan.
[2019-01-07 12:32] VITALS: BP 123/66; BP 149/73; PULSE 67; PULSE 77; RESP 16; RESP 18; TEMP 36.4; TEMP 36.5
--- NOTE | 2019-01-07 16:33 | HBO.PN.PCM_ITS ---
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 Ulcer with fat tissue exposed left leg, right leg, right ankle. Ulcer right heel with fat and fascial layer exposed. Previously medically treated osteomyelitis. 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 Progress: The patient appears to be tolerating hyperbaric oxygen therapy well. Today's a session represents the 30th such session of hyperbaric oxygen therapy. Tolerance of hyperbaric oxygen therapy: Hyperbaric oxygen therapy was administered as per the facility's protocol. The patient tolerated hyperbaric oxygen therapy well, without complaints or complications. Upon emergence from the hyperbaric chamber, the patient's vital signs remained stable. He was d ischarged in good condition. 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) Other chronic osteomyelitis,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 (Chronic) Ulcer of right foot with fat layer exposed (Chronic) previously unstageable pressure ulcer Paralysis (Chronic) Non-pressure chronic ulcer of other part of right foot with fat layer exposed (Chronic) Other specified peripheral vascular diseases (Chronic) Unstageable pressure ulcer of left foot (Chronic) Unstageable pressure ulcer of right foot (Chronic) Ulcer of left lower extremity with fat layer exposed (Chronic) previously unstageable pressure ulcer Malnutrition (Chronic) Delayed wound healing (Chronic) Edema leg (Chronic) Paralysis (Chronic) Ulcer of right lower extremity with fat layer exposed (Chronic) previously unstageable pressure ulcer Osteomyelitis (Chronic) Chronic pain (Chronic) Nocardia infection (Chronic) 2004, right arm and left leg, 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 Allergies/Adverse Reactions: Allergies Cephalosporins Allergy (Intermediate, Verified 11/06/18 08:58) Laryngospasms Penicillins Allergy (Intermediate, Verified 11/06/18 08:58) Rash IVP DYE Allergy (Uncoded 11/06/18 08:58) Rash Home Medications: Ambulatory Orders Medication Instructions Recorded Losartan Potassium [Cozaar] 12.5 mg PO DAILY 01/12/16 Riboflavin (Vitamin B2) [Vitamin 300 mg PO DAILY@1700 11/10/16 B2] Ascorbic Acid [Vitamin C] 500 mg PO TID 07/05/18 Gabapentin [Neurontin] 600 mg PO TID 07/05/18 [place] Carbonate 150 mg PO TID 07/05/18 Furosemide [Lasix] 40 mg PO DAILY 08/11/18 Magnesium 500 mg PO BID 08/11/18 Sennosides/Docusate Sodium 2 each PO DAILY 08/11/18 [Senna-S Laxative Tablet] traZODone [Desyrel] 25 mg PO QHS 08/11/18 Collagenase [Santyl] 1 applic TOPICAL DAILY tube 08/14/18 Mineral Oil/Petrolatum,White 1 applic TOPICAL BID jar 08/14/18 [Eucerin] Atorvastatin Calcium [Lipitor] 40 mg PO QHS 11/06/18 Carvedilol [Coreg (Beta Krissy)] 3.125 mg PO BID 11/06/18 Clopidogrel Bisulfate [Plavix] 75 mg PO DAILY 11/06/18 Cyclobenzaprine [Flexeril] 2.5 mg PO QHS PRN 11/06/18 Duloxetine Hcl [Cymbalta] 60 mg PO DAILY 11/06/18 Isosorbide Mononitrate 10 mg PO QHS 11/06/18 Morphine Sulfate [Morphine Sulfate 15 mg PO BID 11/06/18 ER] Multivitamins,Ther W-Minerals 1 tablet PO DAILY 11/06/18 [Multivitamin With Minerals] Nutritional Supplement [Fred - 1 packet PO BIDCM 11/06/18 [place]] Pyridoxine HCl [Vitamin B-6] 100 mg PO DAILY 11/06/18 Smz/Tmp Ds [Bactrim Ds] 1 tablet PO DAILY 11/06/18 Tamsulosin HCl [Flomax] 0.4 mg PO 1700 11/06/18 Maternal Family History: - - , depression Paternal Family History: - - Offspring Family History: - - 2 children, 4 grand children, 1 great grandchild, all in good health Lives: Spouse/ Significant Other Smoking Status: Never smoker Tobacco Use: Non-smoker Physical Exam Vital Signs Temp Pulse Resp BP 97.7 F L 77 18 123/66 H 01/07/19 12:32 01/07/19 12:32 01/07/19 12:32 01/07/19 12:32 General: Alert, Oriented x3, Cooperative, No apparent distress, Well developed, Well nourished HEENT: Atraumatic, PERRLA, EOMI, Normocephalic Lungs: Normal air movement Psych/Mental Status: Normal Affect, Appropriate, Alert and oriented to time, place, person, mood and affect Assessment/Plan Active Problems (Last Reviewed 08/13/18 @ 10:19 by Fernando Patterson MD) Ulcer of right lower extremity with fat layer exposed (Chronic) Ulcer of left lower extremity with necrosis of muscle (Chronic) Chronic osteomyelitis involving left ankle and foot (Acute) Ulcer of right lower extremity with necrosis of muscle (Chronic) Other chronic osteomyelitis,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 (Chronic) Paralysis (Chronic) Non-pressure chronic ulcer of other part of right foot with fat layer exposed (Chronic) Malnutrition (Chronic) Delayed wound healing (Chronic) Ulcer of right lower extremity with fat layer exposed (Chronic) previously unstageable pressure ulcer The patient appears to be tolerating hyperbaric oxygen therapy well, which will be continued as per the patient's medical plan.
[2019-01-08 13:13] VITALS: BP 108/54; BP 155/70; PULSE 66; PULSE 68; RESP 18; TEMP 36.2; TEMP 36.3
--- NOTE | 2019-01-08 13:40 | HBO.PN.PCM_ITS ---
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 Ulcer with fat tissue exposed left leg, right leg, right ankle. Ulcer right heel with fat and fascial layer exposed. Previously medically treated osteomyelitis. 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 Progress: The patient appears to be tolerating hyperbaric oxygen therapy well. Today's a session represents the 31st such session of hyperbaric oxygen therapy. Tolerance of hyperbaric oxygen therapy: Hyperbaric oxygen therapy was administered as per the facility's protocol. The patient tolerated hyperbaric oxygen therapy well, without complaints or complications. Upon emergence from the hyperbaric chamber, the patient's vital signs remained stable. He was discharged in good condition. 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) Other chronic osteomyelitis,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 (Chronic) Ulcer of right foot with fat layer exposed (Chronic) previously unstageable pressure ulcer Paralysis (Chronic) Non-pressure chronic ulcer of other part of right foot with fat layer exposed (Chronic) Other specified peripheral vascular diseases (Chronic) Unstageable pressure ulcer of left foot (Chronic) Unstageable pressure ulcer of right foot (Chronic) Ulcer of left lower extremity with fat layer exposed (Chronic) previously unstageable pressure ulcer Malnutrition (Chronic) Delayed wound healing (Chronic) Edema leg (Chronic) Paralysis (Chronic) Ulcer of right lower extremity with fat layer exposed (Chronic) previously unstageable pressure ulcer Osteomyelitis (Chronic) Chronic pain (Chronic) Nocardia infection (Chronic) 2004, right arm and left leg, 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 Allergies/Adverse Reactions: Allergies Cephalosporins Allergy (Intermediate, Verified 11/06/18 08:58) Laryngospasms Penicillins Allergy (Intermediate, Verified 11/06/18 08:58) Rash IVP DYE Allergy (Uncoded 11/06/18 08:58) Rash Home Medications: Ambulatory Orders Medication Instructions Recorded Losartan Potassium [Cozaar] 12.5 mg PO DAILY 01/12/16 Riboflavin (Vitamin B2) [Vitamin 300 mg PO DAILY@1700 11/10/16 B2] Ascorbic Acid [Vitamin C] 500 mg PO TID 07/05/18 Gabapentin [Neurontin] 600 mg PO TID 07/05/18 Wanda Carbonate 150 mg PO TID 07/05/18 Furosemide [Lasix] 40 mg PO DAILY 08/11/18 Magnesium 500 mg PO BID 08/11/18 Sennosides/Docusate Sodium 2 each PO DAILY 08/11/18 [Senna-S Laxative Tablet] traZODone [Desyrel] 25 mg PO QHS 08/11/18 Collagenase [Santyl] 1 applic TOPICAL DAILY tube 08/14/18 Mineral Oil/Petrolatum,White 1 applic TOPICAL BID jar 08/14/18 [Eucerin] Atorvastatin Calcium [Lipitor] 40 mg PO QHS 11/06/18 Carvedilol [Coreg (Beta Krissy)] 3.125 mg PO BID 11/06/18 Clopidogrel Bisulfate [Plavix] 75 mg PO DAILY 11/06/18 Cyclobenzaprine [Flexeril] 2.5 mg PO QHS PRN 11/06/18 Duloxetine Hcl [Cymbalta] 60 mg PO DAILY 11/06/18 Isosorbide Mononitrate 10 mg PO QHS 11/06/18 Morphine Sulfate [Morphine Sulfate 15 mg PO BID 11/06/18 ER] Multivitamins,Ther W-Minerals 1 tablet PO DAILY 11/06/18 [Multivitamin With Minerals] Nutritional Supplement [Fred - 1 packet PO BIDCM 11/06/18 ORANGE FLAVOR] Pyridoxine HCl [Vitamin B-6] 100 mg PO DAILY 11/06/18 Smz/Tmp Ds [Bactrim Ds] 1 tablet PO DAILY 11/06/18 Tamsulosin HCl [Flomax] 0.4 mg PO 1700 11/06/18 Maternal Family History: - - , depression Paternal Family History: - - Offspring Family History: - - 2 children, 4 grand children, 1 great grandchild, all in good health Lives: Spouse/ Significant Other Smoking Status: Never smoker Tobacco Use: Non-smoker Physical Exam Vital Signs Temp Pulse Resp BP 97.3 F L 68 18 108/54 L 01/08/19 13:13 01/08/19 13:13 01/08/19 13:13 01/08/19 13:13 General: Alert, Oriented x3, Cooperative HEENT: Atraumatic, TM's Clear Lungs: Clear to auscultation, Normal air movement Cardiovascular: Regular rate, Regular Rhythm, Murmur Psych/Mental Status: Normal Affect, Appropriate, Alert and oriented to time, place, person, mood and affect Assessment/Plan Active Problems (Last Reviewed 08/13/18 @ 10:19 by Fernando Patterson MD) Ulcer of right lower extremity with fat layer exposed (Chronic) Ulcer of left lower extremity with necrosis of muscle (Chronic) Chronic osteomyelitis involving left ankle and foot (Acute) Ulcer of right lower extremity with necrosis of muscle (Chronic) Other chronic osteomyelitis,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 (Chronic) Paralysis (Chronic) Non-pressure chronic ulcer of other part of right foot with fat layer exposed (Chronic) Malnutrition (Chronic) Delayed wound healing (Chronic) Ulcer of right lower extremity with fat layer exposed (Chronic) previously unstageable pressure ulcer The patient appears to be tolerating hyperbaric oxygen therapy well, which will be continued as per the patient's medical plan.
[2019-01-09 11:08] VITALS: BMI 24.3
--- NOTE | 2019-01-09 12:09 | PCM.WC.PN ---
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 Current Visit: Yes Code(s): L97.512 - Non-pressure chronic ulcer of other part of right foot with fat layer exposed (2) Ulcer of right lower extremity with fat layer exposed Status: Chronic Current Visit: Yes Code(s): L97.912 - Non-pressure chronic ulcer of unspecified part of right lower leg with fat layer exposed (3) Ulcer of left lower extremity with necrosis of muscle Status: Chronic Current Visit: Yes Code(s): L97.923 - Non-pressure chronic ulcer of unspecified part of left lower leg with necrosis of muscle (4) Other chronic osteomyelitis,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 Status: Chronic Current Visit: Yes Code(s): M86.671 - Other chronic osteomyelitis,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 (5) Paralysis Status: Chronic Current Visit: Yes Code(s): G83.9 - Paralytic syndrome, unspecified (6) Malnutrition Status: Chronic Current Visit: Yes Code(s): E46 - Unspecified protein-calorie malnutrition (7) Delayed wound healing Status: Chronic Current Visit: Yes Code(s): T14.8XXD - Other injury of unspecified body region, subsequent encounter Type of Wound Date of Service: 01/09/19 Chief Complaint: 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 Ulcer with fat tissue exposed left leg, right leg, right ankle. Ulcer right heel with fat and fascial layer exposed. Previously medically treated osteomyelitis. Paraplegia History of Wound: This 83-year-old male with multiple comorbidities was seen at the wound healing center for pressure ulcers to bilateral lower extremities. He previously had versa jet debridement in the operating room with application of advanced wound care products including amniofill and epicord. He also previously completed a vascular surgery evaluation with Dr. De Anda and an Angio without any identifiable intervention noted. He denies fever, chill, nausea, vomiting. He is a paraplegic and presents in a wheelchair. He continues to take Fred supplementation. He uses bilateral donut offloading pillows and this helps keep pressure off the sites. He continues hyperbaric oxygen therapy. He is with his today. It is noted he had earwax formally removed from his ear earlier this week. Progress of Wound: Improving - Physical Exam Vital Signs Temp Pulse Resp BP 97.3 F L 68 18 108/54 L 01/08/19 13:13 01/08/19 13:13 01/08/19 13:13 01/08/19 13:13 General: Alert, Oriented x3, Cooperative Extremities: No cyanosis, Capillary Refill Less than 3 Seconds, No Calf Tenderness - Paralysis bilateral lower extremities; in wheelchair, Diminished Peripheral Pulses, Edema - Mild bilateral lower extremities Skin: Ulcer/ Wound - No purulence, erythema, streaking, odor, maceration, eschar, deep bone or tissue exposure noted today bilateral lower extremities. His peripheral skin is very hairless and atrophic. Wound Measurements and Assessment WC - Nurse 1 - General Ulcer Measurement Start: 01/01/19 13:48 Freq: Status: Active Protocol: Activity Type Activity Date Activity User E-Sign Co-Sign Detail Recorded Client Recorded Date Recorded By Document 01/09/19 11:08 [id number] 01/09/19 11:26 CAMERON 01/09/19 11:08 Wound Center Nurse 1 [Ulcer Assessment] #7 Lateral RLE -Combined with other wound No -Current Size (cm) - Length 2 -Current Size (cm) - Width 1.9 -Current Size (cm) - Depth 0.4 -Total Square Cm 3.8 -Photo Taken No -Tunneling No -Undermining/Tunneling No -Circular Undermining No -Exudate Amt Small -Exudate Type Serosanguineous -Wound Margin Distinct, Outline Attached -Granulation Amt Large (67-100%) -Granulation Quality [place] Red -Slough/Fibrin Yes -Necrosis Amt Small (1-33%) -Necrotic Tissue Type Adherent Slough -Structure Exposed N/A -Texture (Denisse-wound Skin Appearance) Assessed -Moisture (Denisse-wound Skin Appearance Assessed ) -Color (Denisse-wound Skin Appearance) Assessed -Temperature (Denisse-wound Skin No Abnormality Appearance) (Pt Warm) -Tenderness on Palpation (Denisse-wound No Skin Appearance) -Ulcer Cleansing Rinsed/ Irrigated with Saline -Foul Odor after Cleansing No -Anesthetic Used 5% Lidocaine Gel #5 Posterior LLE -Combined with other wound No -Current Size (cm) - Length 0.1 -Current Size (cm) - Width 0.1 -Current Size (cm) - Depth 0.1 -Total Square Cm 0.01 -Photo Taken No -Tunneling No -Undermining/Tunneling No -Circular Undermining No -Exudate Amt Small -Exudate Type Serosanguineous -Wound Margin Distinct, Outline Attached -Granulation Amt Large (67-100%) -Granulation Quality [place] Red -Slough/Fibrin Yes -Necrosis Amt Small (1-33%) -Necrotic Tissue Type Adherent Slough -Structure Exposed N/A -Texture (Denisse-wound Skin Appearance) Assessed -Moisture (Denisse-wound Skin Appearance Assessed ) -Color (Denisse-wound Skin Appearance) Assessed -Temperature (Denisse-wound Skin No Abnormality Appearance) (Pt Warm) -Tenderness on Palpation (Denisse-wound No Skin Appearance) -Ulcer Cleansing Rinsed/ Irrigated with Saline -Foul Odor after Cleansing No -Anesthetic Used 5% Lidocaine Gel #3 Right Heel -Combined with other wound No -Current Size (cm) - Length 2.5 -Current Size (cm) - Width 4.5 -Current Size (cm) - Depth 0.1 -Total Square Cm 11.25 -Photo Taken No -Tunneling No -Undermining/Tunneling No -Circular Undermining No -Exudate Amt Small -Exudate Type Serosanguineous -Wound Margin Distinct, Outline Attached -Granulation Amt Small (1-33%) -Granulation Quality [place] -Slough/Fibrin Yes -Necrosis Amt Large (67-100%) -Necrotic Tissue Type Adherent Slough -Structure Exposed N/A -Texture (Denisse-wound Skin Appearance) Assessed -Moisture (Denisse-wound Skin Appearance Assessed ) -Color (Denisse-wound Skin Appearance) Assessed -Temperature (Denisse-wound Skin No Abnormality Appearance) (Pt Warm) -Tenderness on Palpation (Denisse-wound No Skin Appearance) -Ulcer Cleansing Rinsed/ Irrigated with Saline -Foul Odor after Cleansing No -Anesthetic Used 5% Lidocaine Gel #2 Right Lateral Ankle -Combined with other wound No -Current Size (cm) - Length 0.9 -Current Size (cm) - Width 1.4 -Current Size (cm) - Depth 0.1 -Total Square Cm 1.26 -Photo Taken No -Tunneling No -Undermining/Tunneling No -Circular Undermining No -Exudate Amt Small -Exudate Type Serosanguineous -Wound Margin Distinct, Outline Attached -Granulation Amt Large (67-100%) -Granulation Quality [place] Red -Slough/Fibrin Yes -Necrosis Amt Small (1-33%) -Necrotic Tissue Type Adherent Slough -Structure Exposed N/A -Texture (Denisse-wound Skin Appearance) Assessed -Moisture (Denisse-wound Skin Appearance Assessed ) -Color (Denisse-wound Skin Appearance) Assessed -Temperature (Denisse-wound Skin No Abnormality Appearance) (Pt Warm) -Tenderness on Palpation (Denisse-wound No Skin Appearance) -Ulcer Cleansing Rinsed/ Irrigated with Saline -Foul Odor after Cleansing No -Anesthetic Used 5% Lidocaine Gel [Edema Assessment] -Lower Limb Edema Present Yes -Right Calf (cm) 28.4 -Right Ankle (cm) 21.5 -Left Calf (cm) 29.6 -Left Ankle (cm) 21.6 WC - Nurse 2 - General Ulcer CM Notes Start: 01/01/19 13:48 Freq: Status: Active Protocol: Activity Type Activity Date Activity User E-Sign Co-Sign Detail Recorded Client Recorded Date Recorded By Document 01/09/19 11:50 CAMERON [id number] 01/09/19 11:53 CAMERON 01/09/19 11:50 Wound Center Nurse 2 [Procedure/Treatment] #7 Lateral RLE -Time 11:50 -Correct Patient Yes -Correct Side, Site, Position Yes -Correct Procedure Yes -Procedure Performed Yes -Type of Procedure Debridement -Clinical Debridement Subcutaneous -Post Debridement Size (cm) - Length 2 -Post Debridement Size (cm) - Width 2 -Post Debridement Size (cm) - Depth 0.4 -Total Square Cm 4 -Wound/Ulcer Outcome Not Healed -Ulcer Cleansing Rinsed/ Irrigated with Saline -Foul Odor after Cleansing No -Bioengineered Tissue Yes -Type of bioengineered Tissue EPIFIX -Expiration Date 06/27/23 -Product Lot Number [id number] -Percent Used 100 -Saline Lot Number [id number] -Bleeding Controlled with Pressure -Offloading No -Treatment Response Procedure Tolerated Well #5 Posterior LLE -Correct Patient No -Correct Side, Site, Position No -Correct Procedure No -Procedure Performed No -Wound/Ulcer Outcome Not Healed #3 Right Heel -Time 11:51 -Correct Patient Yes -Correct Side, Site, Position Yes -Correct Procedure Yes -Procedure Performed Yes -Type of Procedure Debridement -Clinical Debridement Subcutaneous -Post Debridement Size (cm) - Length 2.5 -Post Debridement Size (cm) - Width 4.6 -Post Debridement Size (cm) - Depth 0.1 -Total Square Cm 11.50 -Wound/Ulcer Outcome Not Healed -Ulcer Cleansing Rinsed/ Irrigated with Saline -Foul Odor after Cleansing No -Bioengineered Tissue Yes -Type of bioengineered Tissue EPIFIX -Expiration Date 06/27/23 -Product Lot Number [id number] -Percent Used 100 -Saline Lot Number [id number] -Bleeding Controlled with Pressure -Offloading No -Treatment Response Procedure Tolerated Well #2 Right Lateral Ankle -Time 11:52 -Correct Patient Yes -Correct Side, Site, Position Yes -Correct Procedure Yes -Procedure Performed Yes -Type of Procedure Debridement -Clinical Debridement Subcutaneous -Post Debridement Size (cm) - Length 1 -Post Debridement Size (cm) - Width 1.5 -Post Debridement Size (cm) - Depth 0.1 -Total Square Cm 1.5 -Wound/Ulcer Outcome Not Healed -Ulcer Cleansing Rinsed/ Irrigated with Saline -Foul Odor after Cleansing No -Bioengineered Tissue Yes -Type of bioengineered Tissue EPIFIX -Expiration Date 06/27/23 -Product Lot Number [id number] -Percent Used 100 -Saline Lot Number [id number] -Bleeding Controlled with Pressure -Offloading No -Treatment Response Procedure Tolerated Well [See Physician Procedure note for Specifics] Pain Scale: 0-10 Numeric [Pain] -Is Patient Pain Free? Yes Musculoskeletal: No Tenderness to Palpation of Joints or Extremities, Muscle Wasting Neurological: - - Lack of normal epicritic sensation light touch and with debridement of bilateral lower extremities Psych/Mental Status: Normal Affect, Appropriate Debridement Note Post-Debridement Measurements/Treatment WC - Nurse 2 - General Ulcer CM Notes Start: 01/01/19 13:48 Freq: Status: Active Protocol: Activity Type Activity Date Activity User E-Sign Co-Sign Detail Recorded Client Recorded Date Recorded By Document 01/02/19 11:48 CAMERON [id number] 01/02/19 11:52 JF Document 01/09/19 11:50 CAMERON [id number] 01/09/19 11:53 JF 01/02/19 01/09/19 11:48 11:50 Wound Center Nurse 2 #7 Lateral RLE -Time 11:49 11:50 -Correct Patient Yes Yes -Correct Side, Site, Position Yes Yes -Correct Procedure Yes Yes -Procedure Performed Yes Yes -Type of Procedure Debridement Debridement -Clinical Debridement Subcutaneous Subcutaneous -Post Debridement Size (cm) - Length 1.3 2 -Post Debridement Size (cm) - Width 1.7 2 -Post Debridement Size (cm) - Depth 0.3 0.4 -Total Square Cm 2.21 4 -Wound/Ulcer Outcome Not Healed Not Healed -Ulcer Cleansing Rinsed/ Rinsed/ Irrigated with Irrigated with Saline Saline -Foul Odor after Cleansing No No -Bioengineered Tissue Yes Yes -Type of bioengineered Tissue EPIFIX EPIFIX -Expiration Date 06/27/23 06/27/23 -Product Lot Number [id number] -Percent Used 100 100 -Saline Lot Number [id number] -Bleeding Controlled with Pressure Pressure -Offloading Yes No -Type of Offloading Surgical Shoe -Treatment Response Procedure Procedure Tolerated Well Tolerated Well #5 Posterior LLE -Time 11:49 -Correct Patient Yes No -Correct Side, Site, Position Yes No -Correct Procedure Yes No -Procedure Performed Yes No -Type of Procedure Debridement -Clinical Debridement Subcutaneous -Post Debridement Size (cm) - Length 0.3 -Post Debridement Size (cm) - Width 0.3 -Post Debridement Size (cm) - Depth 0.1 -Total Square Cm 0.09 -Wound/Ulcer Outcome Not Healed Not Healed -Ulcer Cleansing Rinsed/ Irrigated with Saline -Foul Odor after Cleansing No -Bioengineered Tissue No -Bleeding Controlled with Pressure -Offloading Yes -Type of Offloading Surgical Shoe -Treatment Response Procedure Tolerated Well #3 Right Heel -Time 11:50 11:51 -Correct Patient Yes Yes -Correct Side, Site, Position Yes Yes -Correct Procedure Yes Yes -Procedure Performed Yes Yes -Type of Procedure Debridement Debridement -Clinical Debridement Subcutaneous Subcutaneous -Post Debridement Size (cm) - Length 1.8 2.5 -Post Debridement Size (cm) - Width 4 4.6 -Post Debridement Size (cm) - Depth 0.1 0.1 -Total Square Cm 7.2 11.50 -Wound/Ulcer Outcome Not Healed Not Healed -Ulcer Cleansing Rinsed/ Rinsed/ Irrigated with Irrigated with Saline Saline -Foul Odor after Cleansing No No -Bioengineered Tissue Yes Yes -Type of bioengineered Tissue EPIFIX EPIFIX -Expiration Date 06/27/23 06/27/23 -Product Lot Number [id number] -Percent Used 100 100 -Saline Lot Number [id number] -Bleeding Controlled with Pressure Pressure -Offloading Yes No -Type of Offloading Surgical Shoe -Treatment Response Procedure Procedure Tolerated Well Tolerated Well #2 Right Lateral Ankle -Time 11:50 11:52 -Correct Patient Yes Yes -Correct Side, Site, Position Yes Yes -Correct Procedure Yes Yes -Procedure Performed Yes Yes -Type of Procedure Debridement Debridement -Clinical Debridement Subcutaneous Subcutaneous -Post Debridement Size (cm) - Length 1.5 1 -Post Debridement Size (cm) - Width 1.1 1.5 -Post Debridement Size (cm) - Depth 0.1 0.1 -Total Square Cm 1.65 1.5 -Wound/Ulcer Outcome Not Healed Not Healed -Ulcer Cleansing Rinsed/ Rinsed/ Irrigated with Irrigated with Saline Saline -Foul Odor after Cleansing No No -Bioengineered Tissue Yes Yes -Type of bioengineered Tissue EPIFIX EPIFIX -Expiration Date 06/27/23 06/27/23 -Product Lot Number [id number] -Percent Used 100 100 -Saline Lot Number [id number] -Bleeding Controlled with Pressure Pressure -Offloading Yes No -Type of Offloading Surgical Shoe -Treatment Response Procedure Procedure Tolerated Well Tolerated Well Pain Scale: 0-10 Numeric Is Patient Pain Free? Yes Yes Wound debrided: heel Laterality: Right Type of Debridement: Excisional debridement Anesthesia Used: 5% Lidocaine Gel Depth: in the subcutaneous layer Percentage of wound debrided: 100 Instrument Used: #15 blade Tissue Removed: fibrous, devitalized subcutaneous, biofilm, slough Severity: Fat Layer Exposed Amount of bleeding with debridement: Mild Bleeding Controlled with: Pressure Patient tolerated procedure well - Additional Wound Wound debrided: lateral ankle Laterality: Right Type of Debridement: Excisional debridement Anesthesia Used: 5% Lidocaine Gel Depth: in the subcutaneous layer Percentage of wound debrided: 100 Instrument Used: #15 blade Tissue Removed: fibrous, devitalized subcutaneous, biofilm, slough Severity: Fat Layer Exposed Amount of bleeding with debridement: Mild Bleeding Controlled with: Pressure Patient tolerated procedure: Patient tolerated procedure well - Additional Wound Wound debrided: lateral leg Laterality: Right Type of Debridement: Excisional debridement Anesthesia Used: 5% Lidocaine Gel Depth: in the subcutaneous layer Percentage of wound debrided: 100 Instrument Used: #15 blade Tissue Removed: fibrous, devitalized subcutaneous, biofilm, slough Severity: Fat Layer Exposed Amount of bleeding with debridement: Mild Bleeding Controlled with: Pressure Patient tolerated procedure: Patient tolerated procedure well - Additional Wound Wound debrided: lateral leg Laterality: Left Type of Debridement: Excisional debridement Anesthesia Used: 5% Lidocaine Gel Depth: in the subcutaneous layer Percentage of wound debrided: 100 Instrument Used: #15 blade Tissue Removed: fibrous, devitalized subcutaneous, biofilm, slough Severity: Fat Layer Exposed Amount of bleeding with debridement: Mild Bleeding Controlled with: Pressure Patient tolerated procedure: Patient tolerated procedure well Assessment/Plan Active Problems (Last Reviewed 08/13/18 @ 10:19 by Fernando Patterson MD) Ulcer of right lower extremity with fat layer exposed (Chronic) Ulcer of left lower extremity with necrosis of muscle (Chronic) Chronic osteomyelitis involving left ankle and foot (Acute) Ulcer of right lower extremity with necrosis of muscle (Chronic) Other chronic osteomyelitis,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 (Chronic) Paralysis (Chronic) Non-pressure chronic ulcer of other part of right foot with fat layer exposed (Chronic) Malnutrition (Chronic) Delayed wound healing (Chronic) Ulcer of right lower extremity with fat layer exposed (Chronic) previously unstageable pressure ulcer Assessment: Right lateral ankle unstageable pressure ulcer, no cellulitis. Fat layer exposed now. Right lateral leg ulcer, fat layer exposed. refractory osteomyelitis calcaneus, right. Right heel unstageable pressure ulcer, no cellulitis. fat layer exposed now. Left leg ulcer fat layer exposed (lateral). Peripheral vascular disease with rest pain. Other comorbidities. Delayed healing. Malnutrition. Paralysis and gait impairment with wheelchair use Plan: I reviewed and discussed his case today. The advance wound care product remains intact. Debridement and a subcutaneous excisional manner was performed bilateral lower extremity is as noted in the clinical panel. Advanced wound care product, epi fix was applied to the right heel, right lateral ankle, and right leg. This was secured in place with a wound veil, hydrogel, and Steri-Strips. Verbal consent was obtained prior to applying this. He tolerated this well. He was advised to keep this dressing clean, dry, and intact until follow-up next week. This is medically necessary to optimize healing. Today, a secondary dressing was applied with additional Tubigrip for continued edema management. Aquacel Ag was applied to the left leg and he was advised to change this at least every 3 days. Home health will be ordered for assistance this week. This will be monitored very closely and there does not appear to be an infection. He had recent noninvasive vascular studies performed which demonstrated noncompressible vessels in which ankle-brachial indices were not calculated. This is consistent with rest pain as well as multisegmental occlusive disease and vessel calcification. He did go for consultation with Dr. De Anda previously who formed an angioplasty to her in which intervention options were not identified. It is noted he does have perfusion opportunities available to the lower extremity on the right side. His labs were updated previously and discussed in his white blood cell count is 6.0, sedimentation rate 14, and hemoglobin A1c 5.8%. His updated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 x-rays do not demonstrate osseous destruction, periosteal reaction, soft tissue emphysema, acute fracture dislocation, or foreign body. Vessel calcification is seen on plain x-ray consistent with vessel disease. It is noted he completed a 6-week course of IV antibiotics and infectious disease has also been following him closely. He had a previous MRI which demonstrated mild marrow edema to the left calcaneus and lateral ankle consistent with osteomyelitis; the adjacent ulcer site have healed. He also had previous MRI which demonstrated these same findings to right calcaneus with adjacent ongoing delayed healing ulcer; this is the area of concern for refractory osteomyelitis at this time. Due to delayed healing, pain, and continued deep tissue exposure this is consistent with chronic osteomyelitis. I recommend hyperbaric oxygen therapy to optimize healing; this is medically necessary to optimize healing. It is noted his ejection fraction is 65%. To proceed with hyperbaric oxygen treatments as scheduled; he is doing well. I answered all his questions. To continue with nutritional supplementation, Fred. To return to clinic in 1 week for physician reevaluation or call sooner if he has any questions or concerns.
--- NOTE | 2019-01-09 12:13 | PN.PCM_ITS ---
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 Current Visit: Yes Code(s): L97.512 - Non-pressure chronic ulcer of other part of right foot with fat layer exposed (2) Ulcer of right lower extremity with fat layer exposed Status: Chronic Current Visit: Yes Code(s): L97.912 - Non-pressure chronic ulcer of unspecified part of right lower leg with fat layer exposed (3) Ulcer of left lower extremity with necrosis of muscle Status: Chronic Current Visit: Yes Code(s): L97.923 - Non-pressure chronic ulcer of unspecified part of left lower leg with necrosis of muscle (4) Other chronic osteomyelitis,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 Status: Chronic Current Visit: Yes Code(s): M86.671 - Other chronic osteomyelitis,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 (5) Paralysis Status: Chronic Current Visit: Yes Code(s): G83.9 - Paralytic syndrome, unspecified (6) Malnutrition Status: Chronic Current Visit: Yes Code(s): E46 - Unspecified protein- calorie malnutrition (7) Delayed wound healing Status: Chronic Current Visit: Yes Code(s): T14.8XXD - Other injury of unspecified body region, subsequent encounter Type of Wound Date of Service: 01/09/19 Chief Complaint: 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 Ulcer with fat tissue exposed left leg, right leg, right ankle. Ulcer right heel with fat and fascial layer exposed. Previously medically treated osteomyelitis. Paraplegia History of Wound: This 83-year-old male with multiple comorbidities was seen at the wound healing center for pressure ulcers to bilateral lower extremities. He previously had versa jet debridement in the operating room with application of advanced wound care products including amniofill and epicord. He also previously completed a vascular surgery evaluation with Dr. De Anda and an Angio without any identifiable intervention noted. He denies fever, chill, nausea, vomiting. He is a paraplegic and presents in a wheelchair. He continues to take Fred supplementation. He uses bilateral donut offloading pillows and this helps keep pressure off the sites. He continues hyperbaric oxygen therapy. He is with his today. It is noted he had earwax formally removed from his ear earlier this week. Progress of Wound: Improving - Physical Exam Vital Signs Temp Pulse Resp BP 97.3 F L 68 18 108/54 L 01/08/19 13:13 01/08/19 13:13 01/08/19 13:13 01/08/19 13:13 General: Alert, Oriented x3, Cooperative Extremities: No cyanosis, Capillary Refill Less than 3 Seconds, No Calf Tenderness - Paralysis bilateral lower extremities; in wheelchair, Diminished Peripheral Pulses, Edema - Mild bilateral lower extremities Skin: Ulcer/ Wound - No purulence, erythema, streaking, odor, maceration, eschar, deep bone or tissue exposure noted today bilateral lower extremities. His peripheral skin is very hairless and atrophic. Wound Measurements and Assessment WC - Nurse 1 - General Ulcer Measurement Start: 01/01/19 13:48 Freq: Status: Active Protocol: Activity Type Activity Date Activity User E-Sign Co-Sign Detail Recorded Client Recorded Date Recorded By Document 01/09/19 11:08 [id number] 01/09/19 11:26 CAMERON 01/09/19 11:08 Wound Center Nurse 1 [Ulcer Assessment] #7 Lateral RLE -Combined with other wound No -Current Size (cm) - Length 2 -Current Size (cm) - Width 1.9 -Current Size (cm) - Depth 0.4 -Total Square Cm 3.8 -Photo Taken No -Tunneling No -Undermining/Tunneling No -Circular Undermining No -Exudate Amt Small -Exudate Type Serosanguineous -Wound Margin Distinct, Outline Attached -Granulation Amt Large (67-100%) -Granulation Quality [place] Red -Slough/Fibrin Yes -Necrosis Amt Small (1-33%) -Necrotic Tissue Type Adherent Slough -Structure Exposed N/A -Texture (Denisse-wound Skin Appearance) Assessed -Moisture (Denisse-wound Skin Appearance Assessed ) -Color (Denisse-wound Skin Appearance) Assessed -Temperature (Denisse-wound Skin No Abnormality Appearance) (Pt Warm) -Tenderness on Palpation (Denisse-wound No Skin Appearance) -Ulcer Cleansing Rinsed/ Irrigated with Saline -Foul Odor after Cleansing No -Anesthetic Used 5% Lidocaine Gel #5 Posterior LLE -Combined with other wound No -Current Size (cm) - Length 0.1 -Current Size (cm) - Width 0.1 -Current Size (cm) - Depth 0.1 -Total Square Cm 0.01 -Photo Taken No -Tunneling No -Undermining/Tunneling No -Circular Undermining No -Exudate Amt Small -Exudate Type Serosanguineous -Wound Margin Distinct, Outline Attached -Granulation Amt Large (67-100%) -Granulation Quality [place] Red -Slough/Fibrin Yes -Necrosis Amt Small (1-33%) -Necrotic Tissue Type Adherent Slough -Structure Exposed N/A -Texture (Denisse-wound Skin Appearance) Assessed -Moisture (Denisse-wound Skin Appearance Assessed ) -Color (Denisse-wound Skin Appearance) Assessed -Temperature (Denisse-wound Skin No Abnormality Appearance) (Pt Warm) -Tenderness on Palpation (Denisse-wound No Skin Appearance) -Ulcer Cleansing Rinsed/ Irrigated with Saline -Foul Odor after Cleansing No -Anesthetic Used 5% Lidocaine Gel #3 Right Heel -Combined with other wound No -Current Size (cm) - Length 2.5 -Current Size (cm) - Width 4.5 -Current Size (cm) - Depth 0.1 -Total Square Cm 11.25 -Photo Taken No -Tunneling No -Undermining/Tunneling No -Circular Undermining No -Exudate Amt Small -Exudate Type Serosanguineous -Wound Margin Distinct, Outline Attached -Granulation Amt Small (1-33%) -Granulation Quality [place] -Slough/Fibrin Yes -Necrosis Amt Large (67-100%) -Necrotic Tissue Type Adherent Slough -Structure Exposed N/A -Texture (Denisse-wound Skin Appearance) Assessed -Moisture (Denisse-wound Skin Appearance Assessed ) -Color (Denisse-wound Skin Appearance) Assessed -Temperature (Denisse-wound Skin No Abnormality Appearance) (Pt Warm) -Tenderness on Palpation (Denisse-wound No Skin Appearance) -Ulcer Cleansing Rinsed/ Irrigated with Saline -Foul Odor after Cleansing No -Anesthetic Used 5% Lidocaine Gel #2 Right Lateral Ankle -Combined with other wound No -Current Size (cm) - Length 0.9 -Current Size (cm) - Width 1.4 -Current Size (cm) - Depth 0.1 -Total Square Cm 1.26 -Photo Taken No -Tunneling No -Undermining/Tunneling No -Circular Undermining No -Exudate Amt Small -Exudate Type Serosanguineous -Wound Margin Distinct, Outline Attached -Granulation Amt Large (67-100%) -Granulation Quality [place] Red -Slough/Fibrin Yes -Necrosis Amt Small (1-33%) -Necrotic Tissue Type Adherent Slough -Structure Exposed N/A -Texture (Denisse-wound Skin Appearance) Assessed -Moisture (Denisse-wound Skin Appearance Assessed ) -Color (Denisse-wound Skin Appearance) Assessed -Temperature (Denisse-wound Skin No Abnormality Appearance) (Pt Warm) -Tenderness on Palpation (Denisse-wound No Skin Appearance) -Ulcer Cleansing Rinsed/ Irrigated with Saline -Foul Odor after Cleansing No -Anesthetic Used 5% Lidocaine Gel [Edema Assessment] -Lower Limb Edema Present Yes -Right Calf (cm) 28.4 -Right Ankle (cm) 21.5 -Left Calf (cm) 29.6 -Left Ankle (cm) 21.6 WC - Nurse 2 - General Ulcer CM Notes Start: 01/01/19 13:48 Freq: Status: Active Protocol: Activity Type Activity Date Activity User E-Sign Co-Sign Detail Recorded Client Recorded Date Recorded By Document 01/09/19 11:50 CAMERON [id number] 01/09/19 11:53 CAMERON 01/09/19 11:50 Wound Center Nurse 2 [Procedure/Treatment] #7 Lateral RLE -Time 11:50 -Correct Patient Yes -Correct Side, Site, Position Yes -Correct Procedure Yes -Procedure Performed Yes -Type of Procedure Debridement -Clinical Debridement Subcutaneous -Post Debridement Size (cm) - Length 2 -Post Debridement Size (cm) - Width 2 -Post Debridement Size (cm) - Depth 0.4 -Total Square Cm 4 -Wound/Ulcer Outcome Not Healed -Ulcer Cleansing Rinsed/ Irrigated with Saline -Foul Odor after Cleansing No -Bioengineered Tissue Yes -Type of bioengineered Tissue EPIFIX -Expiration Date 06/27/23 -Product Lot Number [id number] -Percent Used 100 -Saline Lot Number [id number] -Bleeding Controlled with Pressure -Offloading No -Treatment Response Procedure Tolerated Well #5 Posterior LLE -Correct Patient No -Correct Side, Site, Position No -Correct Procedure No -Procedure Performed No -Wound/Ulcer Outcome Not Healed #3 Right Heel -Time 11:51 -Correct Patient Yes -Correct Side, Site, Position Yes -Correct Procedure Yes -Procedure Performed Yes -Type of Procedure Debridement -Clinical Debridement Subcutaneous -Post Debridement Size (cm) - Length 2.5 -Post Debridement Size (cm) - Width 4.6 -Post Debridement Size (cm) - Depth 0.1 -Total Square Cm 11.50 -Wound/Ulcer Outcome Not Healed -Ulcer Cleansing Rinsed/ Irrigated with Saline -Foul Odor after Cleansing No -Bioengineered Tissue Yes -Type of bioengineered Tissue EPIFIX -Expiration Date 06/27/23 -Product Lot Number [id number] -Percent Used 100 -Saline Lot Number [id number] -Bleeding Controlled with Pressure -Offloading No -Treatment Response Procedure Tolerated Well #2 Right Lateral Ankle -Time 11:52 -Correct Patient Yes -Correct Side, Site, Position Yes -Correct Procedure Yes -Procedure Performed Yes -Type of Procedure Debridement -Clinical Debridement Subcutaneous -Post Debridement Size (cm) - Length 1 -Post Debridement Size (cm) - Width 1.5 -Post Debridement Size (cm) - Depth 0.1 -Total Square Cm 1.5 -Wound/Ulcer Outcome Not Healed -Ulcer Cleansing Rinsed/ Irrigated with Saline -Foul Odor after Cleansing No -Bioengineered Tissue Yes -Type of bioengineered Tissue EPIFIX -Expiration Date 06/27/23 -Product Lot Number [id number] -Percent Used 100 -Saline Lot Number [id number] -Bleeding Controlled with Pressure -Offloading No -Treatment Response Procedure Tolerated Well [See Physician Procedure note for Specifics] Pain Scale: 0-10 Numeric [Pain] -Is Patient Pain Free? Yes Musculoskeletal: No Tenderness to Palpation of Joints or Extremities, Muscle Wasting Neurological: - - Lack of normal epicritic sensation light touch and with debridement of bilateral lower extremities Psych/Mental Status: Normal Affect, Appropriate Debridement Note Post-Debridement Measurements/Treatment WC - Nurse 2 - General Ulcer CM Notes Start: 01/01/19 13:48 Freq: Status: Active Protocol: Activity Type Activity Date Activity User E-Sign Co-Sign Detail Recorded Client Recorded Date Recorded By Document 01/02/19 11:48 CAMERON [id number] 01/02/19 11:52 JF Document 01/09/19 11:50 CAMERON [id number] 01/09/19 11:53 JF 01/02/19 01/09/19 11:48 11:50 Wound Center Nurse 2 #7 Lateral RLE -Time 11:49 11:50 -Correct Patient Yes Yes -Correct Side, Site, Position Yes Yes -Correct Procedure Yes Yes -Procedure Performed Yes Yes -Type of Procedure Debridement Debridement -Clinical Debridement Subcutaneous Subcutaneous -Post Debridement Size (cm) - Length 1.3 2 -Post Debridement Size (cm) - Width 1.7 2 -Post Debridement Size (cm) - Depth 0.3 0.4 -Total Square Cm 2.21 4 -Wound/Ulcer Outcome Not Healed Not Healed -Ulcer Cleansing Rinsed/ Rinsed/ Irrigated with Irrigated with Saline Saline -Foul Odor after Cleansing No No -Bioengineered Tissue Yes Yes -Type of bioengineered Tissue EPIFIX EPIFIX -Expiration Date 06/27/23 06/27/23 -Product Lot Number [id number] -Percent Used 100 100 -Saline Lot Number [id number] -Bleeding Controlled with Pressure Pressure -Offloading Yes No -Type of Offloading Surgical Shoe -Treatment Response Procedure Procedure Tolerated Well Tolerated Well #5 Posterior LLE -Time 11:49 -Correct Patient Yes No -Correct Side, Site, Position Yes No -Correct Procedure Yes No -Procedure Performed Yes No -Type of Procedure Debridement -Clinical Debridement Subcutaneous -Post Debridement Size (cm) - Length 0.3 -Post Debridement Size (cm) - Width 0.3 -Post Debridement Size (cm) - Depth 0.1 -Total Square Cm 0.09 -Wound/Ulcer Outcome Not Healed Not Healed -Ulcer Cleansing Rinsed/ Irrigated with Saline -Foul Odor after Cleansing No -Bioengineered Tissue No -Bleeding Controlled with Pressure -Offloading Yes -Type of Offloading Surgical Shoe -Treatment Response Procedure Tolerated Well #3 Right Heel -Time 11:50 11:51 -Correct Patient Yes Yes -Correct Side, Site, Position Yes Yes -Correct Procedure Yes Yes -Procedure Performed Yes Yes -Type of Procedure Debridement Debridement -Clinical Debridement Subcutaneous Subcutaneous -Post Debridement Size (cm) - Length 1.8 2.5 -Post Debridement Size (cm) - Width 4 4.6 -Post Debridement Size (cm) - Depth 0.1 0.1 -Total Square Cm 7.2 11.50 -Wound/Ulcer Outcome Not Healed Not Healed -Ulcer Cleansing Rinsed/ Rinsed/ Irrigated with Irrigated with Saline Saline -Foul Odor after Cleansing No No -Bioengineered Tissue Yes Yes -Type of bioengineered Tissue EPIFIX EPIFIX -Expiration Date 06/27/23 06/27/23 -Product Lot Number [id number] -Percent Used 100 100 -Saline Lot Number [id number] -Bleeding Controlled with Pressure Pressure -Offloading Yes No -Type of Offloading Surgical Shoe -Treatment Response Procedure Procedure Tolerated Well Tolerated Well #2 Right Lateral Ankle -Time 11:50 11:52 -Correct Patient Yes Yes -Correct Side, Site, Position Yes Yes -Correct Procedure Yes Yes -Procedure Performed Yes Yes -Type of Procedure Debridement Debridement -Clinical Debridement Subcutaneous Subcutaneous -Post Debridement Size (cm) - Length 1.5 1 -Post Debridement Size (cm) - Width 1.1 1.5 -Post Debridement Size (cm) - Depth 0.1 0.1 -Total Square Cm 1.65 1.5 -Wound/Ulcer Outcome Not Healed Not Healed -Ulcer Cleansing Rinsed/ Rinsed/ Irrigated with Irrigated with Saline Saline -Foul Odor after Cleansing No No -Bioengineered Tissue Yes Yes -Type of bioengineered Tissue EPIFIX EPIFIX -Expiration Date 06/27/23 06/27/23 -Product Lot Number [id number] -Percent Used 100 100 -Saline Lot Number [id number] -Bleeding Controlled with Pressure Pressure -Offloading Yes No -Type of Offloading Surgical Shoe -Treatment Response Procedure Procedure Tolerated Well Tolerated Well Pain Scale: 0-10 Numeric Is Patient Pain Free? Yes Yes Wound debrided: heel Laterality: Right Type of Debridement: Excisional debridement Anesthesia Used: 5% Lidocaine Gel Depth: in the subcutaneous layer Percentage of wound debrided: 100 Instrument Used: #15 blade Tissue Removed: fibrous, devitalized subcutaneous, biofilm, slough Severity: Fat Layer Exposed Amount of bleeding with debridement: Mild Bleeding Controlled with: Pressure Patient tolerated procedure well - Additional Wound Wound debrided: lateral ankle Laterality: Right Type of Debridement: Excisional debridement Anesthesia Used: 5% Lidocaine Gel Depth: in the subcutaneous layer Percentage of wound debrided: 100 Instrument Used: #15 blade Tissue Removed: fibrous, devitalized subcutaneous, biofilm, slough Severity: Fat Layer Exposed Amount of bleeding with debridement: Mild Bleeding Controlled with: Pressure Patient tolerated procedure: Patient tolerated procedure well - Additional Wound Wound debrided: lateral leg Laterality: Right Type of Debridement: Excisional debridement Anesthesia Used: 5% Lidocaine Gel Depth: in the subcutaneous layer Percentage of wound debrided: 100 Instrument Used: #15 blade Tissue Removed: fibrous, devitalized subcutaneous, biofilm, slough Severity: Fat Layer Exposed Amount of bleeding with debridement: Mild Bleeding Controlled with: Pressure Patient tolerated procedure: Patient tolerated procedure well - Additional Wound Wound debrided: lateral leg Laterality: Left Type of Debridement: Excisional debridement Anesthesia Used: 5% Lidocaine Gel Depth: in the subcutaneous layer Percentage of wound debrided: 100 Instrument Used: #15 blade Tissue Removed: fibrous, devitalized subcutaneous, biofilm, slough Severity: Fat Layer Exposed Amount of bleeding with debridement: Mild Bleeding Controlled with: Pressure Patient tolerated procedure: Patient tolerated procedure well Assessment/Plan Active Problems (Last Reviewed 08/13/18 @ 10:19 by Fernando Patterson MD) Ulcer of right lower extremity with fat layer exposed (Chronic) Ulcer of left lower extremity with necrosis of muscle (Chronic) Chronic osteomyelitis involving left ankle and foot (Acute) Ulcer of right lower extremity with necrosis of muscle (Chronic) Other chronic osteomyelitis,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 (Chronic) Paralysis (Chronic) Non-pressure chronic ulcer of other part of right foot with fat layer exposed (Chronic) Malnutrition (Chronic) Delayed wound healing (Chronic) Ulcer of right lower extremity with fat layer exposed (Chronic) previously unstageable pressure ulcer Assessment: Right lateral ankle unstageable pressure ulcer, no cellulitis. Fat layer exposed now. Right lateral leg ulcer, fat layer exposed. refractory osteomyelitis calcaneus, right. Right heel unstageable pressure ulcer, no cellulitis. fat layer exposed now. Left leg ulcer fat layer exposed (lateral). Peripheral vascular disease with rest pain. Other comorbidities. Delayed healing. Malnutrition. Paralysis and gait impairment with wheelchair use Plan: I reviewed and discussed his case today. The advance wound care product remains intact. Debridement and a subcutaneous excisional manner was performed bilateral lower extremity is as noted in the clinical panel. Advanced wound care product, epi fix was applied to the right heel, right lateral ankle, and right leg. This was secured in place with a wound veil, hydrogel, and Steri- Strips. Verbal consent was obtained prior to applying this. He tolerated this well. He was advised to keep this dressing clean, dry, and intact until follow-up next week. This is medically necessary to optimize healing. Today, a secondary dressing was applied with additional Tubigrip for continued edema management. Aquacel Ag was applied to the left leg and he was advised to change this at least every 3 days. Home health will be ordered for assistance this week. This will be monitored very closely and there does not appear to be an infection. He had recent noninvasive vascular studies performed which demonstrated noncompressible vessels in which ankle-brachial indices were not calculated. This is consistent with rest pain as well as multisegmental occlusive disease and vessel calcification. He did go for consultation with Dr. De Anda previously who formed an angioplasty to her in which intervention options were not identified. It is noted he does have perfusion opportunities available to the lower extremity on the right side. His labs were updated previously and discussed in his white blood cell count is 6.0, sedimentation rate 14, and hemoglobin A1c 5.8%. His updated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 x-rays do not demonstrate osseous destruction, periosteal reaction, soft tissue emphysema, acute fracture dislocation, or foreign body. Vessel calcification is seen on plain x-ray consistent with vessel disease. It is noted he completed a 6-week course of IV antibiotics and infectious disease has also been following him closely. He had a previous MRI which demonstrated mild marrow edema to the left calcaneus and lateral ankle consistent with osteomyelitis; the adjacent ulcer site have healed. He also had previous MRI which demonstrated these same findings to right calcaneus with adjacent ongoing delayed healing ulcer; this is the area of concern for refractory osteomyelitis at this time. Due to delayed healing, pain, and continued deep tissue exposure this is consistent with chronic osteomyelitis. I recommend hyperbaric oxygen therapy to optimize healing; this is medically necessary to optimize healing. It is noted his ejection fraction is 65%. To proceed with hyperbaric oxygen treatments as scheduled; he is doing well. I answered all his questions. To continue with nutritional supplementation, Fred. To return to clinic in 1 week for physician reevaluation or call sooner if he has any questions or concerns.
[2019-01-09 12:36] VITALS: BP 116/78; BP 155/79; PULSE 66; PULSE 68; RESP 18; TEMP 36.1; TEMP 36.6
--- NOTE | 2019-01-09 13:06 | PCM.HBO.PN ---
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 Ulcer with fat tissue exposed left leg, right leg, right ankle. Ulcer right heel with fat and fascial layer exposed. Previously medically treated osteomyelitis. 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 Progress: The patient appears to be tolerating hyperbaric oxygen therapy well. Today's a session represents the 32nd such session of hyperbaric oxygen therapy. Tolerance of hyperbaric oxygen therapy: Hyperbaric oxygen therapy was administered as per the facility's protocol. The patient tolerated hyperbaric oxygen therapy well, without complaints or complications. Upon emergence from the hyperbaric chamber, the patient's vital signs remained stable. He was discharged in good condition. 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) Other chronic osteomyelitis,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 (Chronic) Ulcer of right foot with fat layer exposed (Chronic) previously unstageable pressure ulcer Paralysis (Chronic) Non-pressure chronic ulcer of other part of right foot with fat layer exposed (Chronic) Other specified peripheral vascular diseases (Chronic) Unstageable pressure ulcer of left foot (Chronic) Unstageable pressure ulcer of right foot (Chronic) Ulcer of left lower extremity with fat layer exposed (Chronic) previously unstageable pressure ulcer Malnutrition (Chronic) Delayed wound healing (Chronic) Edema leg (Chronic) Paralysis (Chronic) Ulcer of right lower extremity with fat layer exposed (Chronic) previously unstageable pressure ulcer Osteomyelitis (Chronic) Chronic pain (Chronic) Nocardia infection (Chronic) 2004, right arm and left leg, 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 Allergies/Adverse Reactions: Allergies Cephalosporins Allergy (Intermediate, Verified 11/06/18 08:58) Laryngospasms Penicillins Allergy (Intermediate, Verified 11/06/18 08:58) Rash IVP DYE Allergy (Uncoded 11/06/18 08:58) Rash Home Medications: Ambulatory Orders Medication Instructions Recorded Losartan Potassium [Cozaar] 12.5 mg PO DAILY 01/12/16 Riboflavin (Vitamin B2) [Vitamin 300 mg PO DAILY@1700 11/10/16 B2] Ascorbic Acid [Vitamin C] 500 mg PO TID 07/05/18 Gabapentin [Neurontin] 600 mg PO TID 07/05/18 [place] Carbonate 150 mg PO TID 07/05/18 Furosemide [Lasix] 40 mg PO DAILY 08/11/18 Magnesium 500 mg PO BID 08/11/18 Sennosides/Docusate Sodium 2 each PO DAILY 08/11/18 [Senna-S Laxative Tablet] traZODone [Desyrel] 25 mg PO QHS 08/11/18 Collagenase [Santyl] 1 applic TOPICAL DAILY tube 08/14/18 Mineral Oil/Petrolatum,White 1 applic TOPICAL BID jar 08/14/18 [Eucerin] Atorvastatin Calcium [Lipitor] 40 mg PO QHS 11/06/18 Carvedilol [Coreg (Beta Krissy)] 3.125 mg PO BID 11/06/18 Clopidogrel Bisulfate [Plavix] 75 mg PO DAILY 11/06/18 Cyclobenzaprine [Flexeril] 2.5 mg PO QHS PRN 11/06/18 Duloxetine Hcl [Cymbalta] 60 mg PO DAILY 11/06/18 Isosorbide Mononitrate 10 mg PO QHS 11/06/18 Morphine Sulfate [Morphine Sulfate 15 mg PO BID 11/06/18 ER] Multivitamins,Ther W-Minerals 1 tablet PO DAILY 11/06/18 [Multivitamin With Minerals] Nutritional Supplement [Fred - 1 packet PO BIDCM 11/06/18 [place] FLAVOR] Pyridoxine HCl [Vitamin B-6] 100 mg PO DAILY 11/06/18 Smz/Tmp Ds [Bactrim Ds] 1 tablet PO DAILY 11/06/18 Tamsulosin HCl [Flomax] 0.4 mg PO 1700 11/06/18 Maternal Family History: - - , depression Paternal Family History: - - Offspring Family History: - - 2 children, 4 grand children, 1 great grandchild, all in good health Lives: Spouse/ Significant Other Smoking Status: Never smoker Tobacco Use: Non-smoker Physical Exam Vital Signs Temp Pulse Resp BP 97.3 F L 68 18 108/54 L 01/08/19 13:13 01/08/19 13:13 01/08/19 13:13 01/08/19 13:13 General: Alert, Oriented x3, Cooperative HEENT: Atraumatic, TM's Clear Lungs: Clear to auscultation, Normal air movement Cardiovascular: Regular rate, Regular Rhythm, Murmur Psych/Mental Status: Normal Affect, Appropriate, Alert and oriented to time, place, person, mood and affect Assessment/Plan Active Problems (Last Reviewed 08/13/18 @ 10:19 by Fernando Patterson MD) Ulcer of right lower extremity with fat layer exposed (Chronic) Ulcer of left lower extremity with necrosis of muscle (Chronic) Chronic osteomyelitis involving left ankle and foot (Acute) Ulcer of right lower extremity with necrosis of muscle (Chronic) Other chronic osteomyelitis,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 (Chronic) Paralysis (Chronic) Non-pressure chronic ulcer of other part of right foot with fat layer exposed (Chronic) Malnutrition (Chronic) Delayed wound healing (Chronic) Ulcer of right lower extremity with fat layer exposed (Chronic) previously unstageable pressure ulcer The patient appears to be tolerating hyperbaric oxygen therapy well, which will be continued as per the patient's medical plan.
[2019-01-10 10:48] VITALS: BP 123/69; PULSE 71; RESP 18; TEMP 36.6
--- NOTE | 2019-01-10 11:01 | HBO.PN.PCM_ITS ---
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 Ulcer with fat tissue exposed left leg, right leg, right ankle. Ulcer right heel with fat and fascial layer exposed. Previously medically treated osteomyelitis. 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 Progress: The patient appears to be tolerating hyperbaric oxygen therapy well. Today's a session represents the 33rd such session of hyperbaric oxygen therapy. Tolerance of hyperbaric oxygen therapy: Hyperbaric oxygen therapy was administered as per the facility's protocol. The patient tolerated hyperbaric oxygen therapy well, without complaints or complications. Upon emergence from the hyperbaric chamber, the patient's vital signs remained stable. He was discharged in good condition. 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) Other chronic osteomyelitis,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 (Chronic) Ulcer of right foot with fat layer exposed (Chronic) previously unstageable pressure ulcer Paralysis (Chronic) Non-pressure chronic ulcer of other part of right foot with fat layer exposed (Chronic) Other specified peripheral vascular diseases (Chronic) Unstageable pressure ulcer of left foot (Chronic) Unstageable pressure ulcer of right foot (Chronic) Ulcer of left lower extremity with fat layer exposed (Chronic) previously unstageable pressure ulcer Malnutrition (Chronic) Delayed wound healing (Chronic) Edema leg (Chronic) Paralysis (Chronic) Ulcer of right lower extremity with fat layer exposed (Chronic) previously unstageable pressure ulcer Osteomyelitis (Chronic) Chronic pain (Chronic) Nocardia infection (Chronic) 2004, right arm and left leg, 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 Allergies/Adverse Reactions: Allergies Cephalosporins Allergy (Intermediate, Verified 11/06/18 08:58) Laryngospasms Penicillins Allergy (Intermediate, Verified 11/06/18 08:58) Rash IVP DYE Allergy (Uncoded 11/06/18 08:58) Rash Home Medications: Ambulatory Orders Medication Instructions Recorded Losartan Potassium [Cozaar] 12.5 mg PO DAILY 01/12/16 Riboflavin (Vitamin B2) [Vitamin 300 mg PO DAILY@1700 11/10/16 B2] Ascorbic Acid [Vitamin C] 500 mg PO TID 07/05/18 Gabapentin [Neurontin] 600 mg PO TID 07/05/18 [place] Carbonate 150 mg PO TID 07/05/18 Furosemide [Lasix] 40 mg PO DAILY 08/11/18 Magnesium 500 mg PO BID 08/11/18 Sennosides/Docusate Sodium 2 each PO DAILY 08/11/18 [Senna-S Laxative Tablet] traZODone [Desyrel] 25 mg PO QHS 08/11/18 Collagenase [Santyl] 1 applic TOPICAL DAILY tube 08/14/18 Mineral Oil/Petrolatum,White 1 applic TOPICAL BID jar 08/14/18 [Eucerin] Atorvastatin Calcium [Lipitor] 40 mg PO QHS 11/06/18 Carvedilol [Coreg (Beta Krissy)] 3.125 mg PO BID 11/06/18 Clopidogrel Bisulfate [Plavix] 75 mg PO DAILY 11/06/18 Cyclobenzaprine [Flexeril] 2.5 mg PO QHS PRN 11/06/18 Duloxetine Hcl [Cymbalta] 60 mg PO DAILY 11/06/18 Isosorbide Mononitrate 10 mg PO QHS 11/06/18 Morphine Sulfate [Morphine Sulfate 15 mg PO BID 11/06/18 ER] Multivitamins,Ther W-Minerals 1 tablet PO DAILY 11/06/18 [Multivitamin With Minerals] Nutritional Supplement [Fred - 1 packet PO BIDCM 11/06/18 [place]] Pyridoxine HCl [Vitamin B-6] 100 mg PO DAILY 11/06/18 Smz/Tmp Ds [Bactrim Ds] 1 tablet PO DAILY 11/06/18 Tamsulosin HCl [Flomax] 0.4 mg PO 1700 11/06/18 Maternal Family History: - - , depression Paternal Family History: - - Offspring Family History: - - 2 children, 4 grand children, 1 great grandchild, all in good health Lives: Spouse/ Significant Other Smoking Status: Never smoker Tobacco Use: Non-smoker Physical Exam Vital Signs Temp Pulse Resp BP 97.8 F 71 18 123/69 H 01/10/19 10:48 01/10/19 10:48 01/10/19 10:48 01/10/19 10:48 General: Alert, Oriented x3, Cooperative, No apparent distress HEENT: Atraumatic, TM's Clear Lungs: Clear to auscultation, Normal air movement Cardiovascular: Regular rate, Regular Rhythm, Murmur Psych/Mental Status: Normal Affect, Appropriate, Alert and oriented to time, place, person, mood and affect Assessment/Plan Active Problems (Last Reviewed 08/13/18 @ 10:19 by Fernando Patterson MD) Ulcer of right lower extremity with fat layer exposed (Chronic) Ulcer of left lower extremity with necrosis of muscle (Chronic) Chronic osteomyelitis involving left ankle and foot (Acute) Ulcer of right lower extremity with necrosis of muscle (Chronic) Other chronic osteomyelitis,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 (Chronic) Paralysis (Chronic) Non-pressure chronic ulcer of other part of right foot with fat layer exposed (Chronic) Malnutrition (Chronic) Delayed wound healing (Chronic) Ulcer of right lower extremity with fat layer exposed (Chronic) previously unstageable pressure ulcer The patient appears to be tolerating hyperbaric oxygen therapy well, which will be continued as per the patient's medical plan.
[2019-01-14 12:17] VITALS: BP 146/76; BP 149/73; PULSE 66; PULSE 69; RESP 16; TEMP 36.2; TEMP 36.4
--- NOTE | 2019-01-15 08:15 | HBO.PN.PCM_ITS ---
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 Ulcer with fat tissue exposed left leg, right leg, right ankle. Ulcer right heel with fat and fascial layer exposed. Previously medically treated osteomyelitis. 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 Progress: The patient appears to be tolerating hyperbaric oxygen therapy well. Today's a session represents the 33rd such session of hyperbaric oxygen therapy. Tolerance of hyperbaric oxygen therapy: Hyperbaric oxygen therapy was administered as per the facility's protocol. The patient tolerated hyperbaric oxygen therapy well, without complaints or complications. Upon emergence from the hyperbaric chamber, the patient's vital signs remained stable. He was d ischarged in good condition. 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) Other chronic osteomyelitis,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 (Chronic) Ulcer of right foot with fat layer exposed (Chronic) previously unstageable pressure ulcer Paralysis (Chronic) Non-pressure chronic ulcer of other part of right foot with fat layer exposed (Chronic) Other specified peripheral vascular diseases (Chronic) Unstageable pressure ulcer of left foot (Chronic) Unstageable pressure ulcer of right foot (Chronic) Ulcer of left lower extremity with fat layer exposed (Chronic) previously unstageable pressure ulcer Malnutrition (Chronic) Delayed wound healing (Chronic) Edema leg (Chronic) Paralysis (Chronic) Ulcer of right lower extremity with fat layer exposed (Chronic) previously unstageable pressure ulcer Osteomyelitis (Chronic) Chronic pain (Chronic) Nocardia infection (Chronic) 2004, right arm and left leg, 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 Carbonate 150 mg PO TID 07/05/18 Furosemide [Lasix] 40 mg PO DAILY 08/11/18 Magnesium 500 mg PO BID 08/11/18 Sennosides/Docusate Sodium 2 each PO DAILY 08/11/18 [Senna-S Laxative Tablet] traZODone [Desyrel] 25 mg PO QHS 08/11/18 Collagenase [Santyl] 1 applic TOPICAL DAILY tube 08/14/18 Mineral Oil/Petrolatum,White 1 applic TOPICAL BID jar 08/14/18 [Eucerin] Atorvastatin Calcium [Lipitor] 40 mg PO QHS 11/06/18 Carvedilol [Coreg (Beta Krissy)] 3.125 mg PO BID 11/06/18 Clopidogrel Bisulfate [Plavix] 75 mg PO DAILY 11/06/18 Cyclobenzaprine [Flexeril] 2.5 mg PO QHS PRN 11/06/18 Duloxetine Hcl [Cymbalta] 60 mg PO DAILY 11/06/18 Isosorbide Mononitrate 10 mg PO QHS 11/06/18 Morphine Sulfate [Morphine Sulfate 15 mg PO BID 11/06/18 ER] Multivitamins,Ther W-Minerals 1 tablet PO DAILY 11/06/18 [Multivitamin With Minerals] Nutritional Supplement [Fred - 1 packet PO BIDCM 11/06/18 [place]] Pyridoxine HCl [Vitamin B-6] 100 mg PO DAILY 11/06/18 Smz/Tmp Ds [Bactrim Ds] 1 tablet PO DAILY 11/06/18 Tamsulosin HCl [Flomax] 0.4 mg PO 1700 11/06/18 Maternal Family History: - - , depression Paternal Family History: - - Offspring Family History: - - 2 children, 4 grand children, 1 great grandchild, all in good health Lives: Spouse/ Significant Other Smoking Status: Never smoker Tobacco Use: Non-smoker Physical Exam Vital Signs Temp Pulse Resp BP 97.6 F L 69 16 149/73 H 01/14/19 12:17 01/14/19 12:17 01/14/19 12:17 01/14/19 12:17 Assessment/Plan Active Problems (Last Reviewed 08/13/18 @ 10:19 by Fernando Patterson MD) Ulcer of right lower extremity with fat layer exposed (Chronic) Ulcer of left lower extremity with necrosis of muscle (Chronic) Chronic osteomyelitis involving left ankle and foot (Acute) Ulcer of right lower extremity with necrosis of muscle (Chronic) Other chronic osteomyelitis,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 (Chronic) Paralysis (Chronic) Non-pressure chronic ulcer of other part of right foot with fat layer exposed (Chronic) Malnutrition (Chronic) Delayed wound healing (Chronic) Ulcer of right lower extremity with fat layer exposed (Chronic) previously unstageable pressure ulcer
--- NOTE | 2019-01-15 08:48 | HBO.PN.PCM_ITS ---
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 Ulcer with fat tissue exposed left leg, right leg, right ankle. Ulcer right heel with fat and fascial layer exposed. Previously medically treated osteomyelitis. 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 Progress: The patient appears to be tolerating hyperbaric oxygen therapy well. Today's a session represents the 34th such session of hyperbaric oxygen therapy. Tolerance of hyperbaric oxygen therapy: Hyperbaric oxygen therapy was administered as per the facility's protocol. The patient tolerated hyperbaric oxygen therapy well, without complaints or complications. Upon emergence from the hyperbaric chamber, the patient's vital signs remained stable. He was d ischarged in good condition. 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) Other chronic osteomyelitis,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 (Chronic) Ulcer of right foot with fat layer exposed (Chronic) previously unstageable pressure ulcer Paralysis (Chronic) Non-pressure chronic ulcer of other part of right foot with fat layer exposed (Chronic) Other specified peripheral vascular diseases (Chronic) Unstageable pressure ulcer of left foot (Chronic) Unstageable pressure ulcer of right foot (Chronic) Ulcer of left lower extremity with fat layer exposed (Chronic) previously unstageable pressure ulcer Malnutrition (Chronic) Delayed wound healing (Chronic) Edema leg (Chronic) Paralysis (Chronic) Ulcer of right lower extremity with fat layer exposed (Chronic) previously unstageable pressure ulcer Osteomyelitis (Chronic) Chronic pain (Chronic) Nocardia infection (Chronic) 2004, right arm and left leg, 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 Allergies/Adverse Reactions: Allergies Cephalosporins Allergy (Intermediate, Verified 11/06/18 08:58) Laryngospasms Penicillins Allergy (Intermediate, Verified 11/06/18 08:58) Rash IVP DYE Allergy (Uncoded 11/06/18 08:58) Rash Home Medications: Ambulatory Orders Medication Instructions Recorded Losartan Potassium [Cozaar] 12.5 mg PO DAILY 01/12/16 Riboflavin (Vitamin B2) [Vitamin 300 mg PO DAILY@1700 11/10/16 B2] Ascorbic Acid [Vitamin C] 500 mg PO TID 07/05/18 Gabapentin [Neurontin] 600 mg PO TID 07/05/18 [place] Carbonate 150 mg PO TID 07/05/18 Furosemide [Lasix] 40 mg PO DAILY 08/11/18 Magnesium 500 mg PO BID 08/11/18 Sennosides/Docusate Sodium 2 each PO DAILY 08/11/18 [Senna-S Laxative Tablet] traZODone [Desyrel] 25 mg PO QHS 08/11/18 Collagenase [Santyl] 1 applic TOPICAL DAILY tube 08/14/18 Mineral Oil/Petrolatum,White 1 applic TOPICAL BID jar 08/14/18 [Eucerin] Atorvastatin Calcium [Lipitor] 40 mg PO QHS 11/06/18 Carvedilol [Coreg (Beta Krissy)] 3.125 mg PO BID 11/06/18 Clopidogrel Bisulfate [Plavix] 75 mg PO DAILY 11/06/18 Cyclobenzaprine [Flexeril] 2.5 mg PO QHS PRN 11/06/18 Duloxetine Hcl [Cymbalta] 60 mg PO DAILY 11/06/18 Isosorbide Mononitrate 10 mg PO QHS 11/06/18 Morphine Sulfate [Morphine Sulfate 15 mg PO BID 11/06/18 ER] Multivitamins,Ther W-Minerals 1 tablet PO DAILY 11/06/18 [Multivitamin With Minerals] Nutritional Supplement [Fred - 1 packet PO BIDCM 11/06/18 [place]] Pyridoxine HCl [Vitamin B-6] 100 mg PO DAILY 11/06/18 Smz/Tmp Ds [Bactrim Ds] 1 tablet PO DAILY 11/06/18 Tamsulosin HCl [Flomax] 0.4 mg PO 1700 11/06/18 Maternal Family History: - - , depression Paternal Family History: - - Offspring Family History: - - 2 children, 4 grand children, 1 great grandchild, all in good health Lives: Spouse/ Significant Other Smoking Status: Never smoker Tobacco Use: Non-smoker Physical Exam Vital Signs Temp Pulse Resp BP 97.6 F L 69 16 149/73 H 01/14/19 12:17 01/14/19 12:17 01/14/19 12:17 01/14/19 12:17 General: Alert, Oriented x3, Cooperative, No apparent distress, Well developed, Well nourished HEENT: Atraumatic, PERRLA, EOMI, Normocephalic Lungs: Normal air movement Psych/Mental Status: Normal Affect, Appropriate, Alert and oriented to time, place, person, mood and affect Assessment/Plan Active Problems (Last Reviewed 08/13/18 @ 10:19 by Fernando Patterson MD) Ulcer of right lower extremity with fat layer exposed (Chronic) Ulcer of left lower extremity with necrosis of muscle (Chronic) Chronic osteomyelitis involving left ankle and foot (Acute) Ulcer of right lower extremity with necrosis of muscle (Chronic) Other chronic osteomyelitis,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 (Chronic) Paralysis (Chronic) Non-pressure chronic ulcer of other part of right foot with fat layer exposed (Chronic) Malnutrition (Chronic) Delayed wound healing (Chronic) Ulcer of right lower extremity with fat layer exposed (Chronic) previously unstageable pressure ulcer The patient appears to be tolerating hyperbaric oxygen therapy well, which will be continued as per the patient's medical plan.
[2019-01-15 12:02] VITALS: BP 133/72; BP 147/79; PULSE 71; PULSE 84; RESP 16; TEMP 36.4; TEMP 36.7
--- NOTE | 2019-01-15 12:16 | HBO.PN.PCM_ITS ---
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 Ulcer with fat tissue exposed left leg, right leg, right ankle. Ulcer right heel with fat and fascial layer exposed. Previously medically treated osteomyelitis. 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 Progress: The patient appears to be tolerating hyperbaric oxygen therapy well. Today's a session represents the 35th such session of hyperbaric oxygen therapy. Tolerance of hyperbaric oxygen therapy: Hyperbaric oxygen therapy was administered as per the facility's protocol. The patient tolerated hyperbaric oxygen therapy well, without complaints or complications. Upon emergence from the hyperbaric chamber, the patient's vital signs remained stable. He was d ischarged in good condition. It should be noted that the patient tends to accumulate cerumen within his right ear canal. At the patient's request, otoscopy was used to examine the right ear canal, and a buildup of cerumen was noted. Using a small sterile scoop, and a cotton tip applicator, a large portion of the cerumen was removed gently, allowing for visualization of the right tympanic membrane. 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) Other chronic osteomyelitis,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 (Chronic) Ulcer of right foot with fat layer exposed (Chronic) previously unstageable pressure ulcer Paralysis (Chronic) Non-pressure chronic ulcer of other part of right foot with fat layer exposed (Chronic) Other specified peripheral vascular diseases (Chronic) Unstageable pressure ulcer of left foot (Chronic) Unstageable pressure ulcer of right foot (Chronic) Ulcer of left lower extremity with fat layer exposed (Chronic) previously unstageable pressure ulcer Malnutrition (Chronic) Delayed wound healing (Chronic) Edema leg (Chronic) Paralysis (Chronic) Ulcer of right lower extremity with fat layer exposed (Chronic) previously unstageable pressure ulcer Osteomyelitis (Chronic) Chronic pain (Chronic) Nocardia infection (Chronic) 2005, right arm and left leg, 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 Allergies/Adverse Reactions: Allergies Cephalosporins Allergy (Intermediate, Verified 11/06/18 08:58) Laryngospasms Penicillins Allergy (Intermediate, Verified 11/06/18 08:58) Rash IVP DYE Allergy (Uncoded 11/06/18 08:58) Rash Home Medications: Ambulatory Orders Medication Instructions Recorded Losartan Potassium [Cozaar] 12.5 mg PO DAILY 01/12/16 Riboflavin (Vitamin B2) [Vitamin 300 mg PO DAILY@1700 11/10/16 B2] Ascorbic Acid [Vitamin C] 500 mg PO TID 07/05/18 Gabapentin [Neurontin] 600 mg PO TID 07/05/18 [place] Carbonate 150 mg PO TID 07/05/18 Furosemide [Lasix] 40 mg PO DAILY 08/11/18 Magnesium 500 mg PO BID 08/11/18 Sennosides/Docusate Sodium 2 each PO DAILY 08/11/18 [Senna-S Laxative Tablet] traZODone [Desyrel] 25 mg PO QHS 08/11/18 Collagenase [Santyl] 1 applic TOPICAL DAILY tube 08/14/18 Mineral Oil/Petrolatum,White 1 applic TOPICAL BID jar 08/14/18 [Eucerin] Atorvastatin Calcium [Lipitor] 40 mg PO QHS 11/06/18 Carvedilol [Coreg (Beta Krissy)] 3.125 mg PO BID 11/06/18 Clopidogrel Bisulfate [Plavix] 75 mg PO DAILY 11/06/18 Cyclobenzaprine [Flexeril] 2.5 mg PO QHS PRN 11/06/18 Duloxetine Hcl [Cymbalta] 60 mg PO DAILY 11/06/18 Isosorbide Mononitrate 10 mg PO QHS 11/06/18 Morphine Sulfate [Morphine Sulfate 15 mg PO BID 11/06/18 ER] Multivitamins,Ther W-Minerals 1 tablet PO DAILY 11/06/18 [Multivitamin With Minerals] Nutritional Supplement [Fred - 1 packet PO BIDCM 11/06/18 [place]LAVOR] Pyridoxine HCl [Vitamin B-6] 100 mg PO DAILY 11/06/18 Smz/Tmp Ds [Bactrim Ds] 1 tablet PO DAILY 11/06/18 Tamsulosin HCl [Flomax] 0.4 mg PO 1700 11/06/18 Maternal Family History: - - , depression Paternal Family History: - - Offspring Family History: - - 2 children, 4 grand children, 1 great grandchild, all in good health Lives: Spouse/ Significant Other Smoking Status: Never smoker Tobacco Use: Non-smoker Physical Exam Vital Signs Temp Pulse Resp BP 98.0 F 84 16 133/72 H 01/15/19 12:02 01/15/19 12:02 01/15/19 12:02 01/15/19 12:02 General: Alert, Oriented x3, Cooperative, No apparent distress, Well developed, Well nourished HEENT: Atraumatic, PERRLA, EOMI, Normocephalic Lungs: Normal air movement Psych/Mental Status: Normal Affect, Appropriate, Alert and oriented to time, place, person, mood and affect Assessment/Plan Active Problems (Last Reviewed 08/13/18 @ 10:19 by Fernando Patterson MD) Ulcer of right lower extremity with fat layer exposed (Chronic) Ulcer of left lower extremity with necrosis of muscle (Chronic) Chronic osteomyelitis involving left ankle and foot (Acute) Ulcer of right lower extremity with necrosis of muscle (Chronic) Other chronic osteomyelitis,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 (Chronic) Paralysis (Chronic) Non-pressure chronic ulcer of other part of right foot with fat layer exposed (Chronic) Malnutrition (Chronic) Delayed wound healing (Chronic) Ulcer of right lower extremity with fat layer exposed (Chronic) previously unstageable pressure ulcer The patient appears to be tolerating hyperbaric oxygen therapy well, which will be continued as per the patient's medical plan.
[2019-01-16 10:41] VITALS: BP 120/71; BP 137/73; PULSE 68; PULSE 78; RESP 16; RESP 18; TEMP 36.4; TEMP 36.7
[2019-01-16 12:00] VITALS: BP 137/73; PULSE 68; RESP 20; TEMP 36.4; BMI 24.3
--- NOTE | 2019-01-16 12:12 | PCM.HBO.PN ---
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 Ulcer with fat tissue exposed left leg, right leg, right ankle. Ulcer right heel with fat and fascial layer exposed. Previously medically treated osteomyelitis. 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 Progress: The patient appears to be tolerating hyperbaric oxygen therapy well. Today's a session represents the 36th such session of hyperbaric oxygen therapy. Tolerance of hyperbaric oxygen therapy: Hyperbaric oxygen therapy was administered as per the facility's protocol. The patient tolerated hyperbaric oxygen therapy well, without complaints or complications. Upon emergence from the hyperbaric chamber, the patient's vital signs remained stable. He was discharged in good condition. 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) Other chronic osteomyelitis,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 (Chronic) Ulcer of right foot with fat layer exposed (Chronic) previously unstageable pressure ulcer Paralysis (Chronic) Non-pressure chronic ulcer of other part of right foot with fat layer exposed (Chronic) Other specified peripheral vascular diseases (Chronic) Unstageable pressure ulcer of left foot (Chronic) Unstageable pressure ulcer of right foot (Chronic) Ulcer of left lower extremity with fat layer exposed (Chronic) previously unstageable pressure ulcer Malnutrition (Chronic) Delayed wound healing (Chronic) Edema leg (Chronic) Paralysis (Chronic) Ulcer of right lower extremity with fat layer exposed (Chronic) previously unstageable pressure ulcer Osteomyelitis (Chronic) Chronic pain (Chronic) Nocardia infection (Chronic) 2004, right arm and left leg, continued suppressive therapy 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 Allergies/Adverse Reactions: Allergies Cephalosporins Allergy (Intermediate, Verified 11/06/18 08:58) Laryngospasms Penicillins Allergy (Intermediate, Verified 11/06/18 08:58) Rash IVP DYE Allergy (Uncoded 11/06/18 08:58) Rash Home Medications: Ambulatory Orders Medication Instructions Recorded Losartan Potassium [Cozaar] 12.5 mg PO DAILY 01/12/16 Riboflavin (Vitamin B2) [Vitamin 300 mg PO DAILY@1700 11/10/16 B2] Ascorbic Acid [Vitamin C] 500 mg PO TID 07/05/18 Gabapentin [Neurontin] 600 mg PO TID 07/05/18 [place] Carbonate 150 mg PO TID 07/05/18 Furosemide [Lasix] 40 mg PO DAILY 08/11/18 Magnesium 500 mg PO BID 08/11/18 Sennosides/Docusate Sodium 2 each PO DAILY 08/11/18 [Senna-S Laxative Tablet] traZODone [Desyrel] 25 mg PO QHS 08/11/18 Collagenase [Santyl] 1 applic TOPICAL DAILY tube 08/14/18 Mineral Oil/Petrolatum,White 1 applic TOPICAL BID jar 08/14/18 [Eucerin] Atorvastatin Calcium [Lipitor] 40 mg PO QHS 11/06/18 Carvedilol [Coreg (Beta Krissy)] 3.125 mg PO BID 11/06/18 Clopidogrel Bisulfate [Plavix] 75 mg PO DAILY 11/06/18 Cyclobenzaprine [Flexeril] 2.5 mg PO QHS PRN 11/06/18 Duloxetine Hcl [Cymbalta] 60 mg PO DAILY 11/06/18 Isosorbide Mononitrate 10 mg PO QHS 11/06/18 Morphine Sulfate [Morphine Sulfate 15 mg PO BID 11/06/18 ER] Multivitamins,Ther W-Minerals 1 tablet PO DAILY 11/06/18 [Multivitamin With Minerals] Nutritional Supplement [Fred - 1 packet PO BIDCM 11/06/18 [place] FLAVOR] Pyridoxine HCl [Vitamin B-6] 100 mg PO DAILY 11/06/18 Smz/Tmp Ds [Bactrim Ds] 1 tablet PO DAILY 11/06/18 Tamsulosin HCl [Flomax] 0.4 mg PO 1700 11/06/18 Maternal Family History: - - , depression Paternal Family History: - - Offspring Family History: - - 2 children, 4 grand children, 1 great grandchild, all in good health Lives: Spouse/ Significant Other Smoking Status: Never smoker Tobacco Use: Non-smoker Physical Exam Vital Signs Temp Pulse Resp BP 98.1 F 78 18 120/71 01/16/19 10:41 01/16/19 10:41 01/16/19 10:41 01/16/19 10:41 General: Alert, Oriented x3, Cooperative, No apparent distress HEENT: Atraumatic, Normocephalic, - - Cerumen in right ear and canal. Not impacted. Lungs: Normal air movement Psych/Mental Status: Normal Affect Assessment/Plan Active Problems (Last Reviewed 08/13/18 @ 10:19 by Fernando Patterson MD) Ulcer of right lower extremity with fat layer exposed (Chronic) Ulcer of left lower extremity with necrosis of muscle (Chronic) Chronic osteomyelitis involving left ankle and foot (Acute) Ulcer of right lower extremity with necrosis of muscle (Chronic) Other chronic osteomyelitis,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 (Chronic) Paralysis (Chronic) Non-pressure chronic ulcer of other part of right foot with fat layer exposed (Chronic) Malnutrition (Chronic) Delayed wound healing (Chronic) Ulcer of right lower extremity with fat layer exposed (Chronic) previously unstageable pressure ulcer The patient appears to be tolerating hyperbaric oxygen therapy well, which will be continued as per the patient's medical plan.
--- NOTE | 2019-01-16 12:47 | PCM.WC.PN ---
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 (2) Non-pressure chronic ulcer of other part of right foot with fat layer exposed Status: Resolved Current Visit: Yes Code(s): L97.512 - Non-pressure chronic ulcer of other part of right foot with fat layer exposed (3) Ulcer of left lower extremity with necrosis of muscle Status: Resolved Current Visit: Yes Code(s): L97.923 - Non-pressure chronic ulcer of unspecified part of left lower leg with necrosis of muscle (4) Other chronic osteomyelitis,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 Status: Chronic Current Visit: Yes Code(s): M86.671 - Other chronic osteomyelitis,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 (5) Paralysis Status: Chronic Current Visit: Yes Code(s): G83.9 - Paralytic syndrome, unspecified (6) Malnutrition Status: Chronic Current Visit: Yes Code(s): E46 - Unspecified protein-calorie malnutrition (7) Delayed wound healing Status: Chronic Current Visit: Yes Code(s): T14.8XXD - Other injury of unspecified body region, subsequent encounter Type of Wound Date of Service: 01/16/19 Chief Complaint: 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 left leg ulcer. right ankle. Ulcer right heel. Paraplegia History of Wound: This 83-year-old male with multiple comorbidities was seen at the wound healing center for pressure ulcers to bilateral lower extremities. He previously had versa jet debridement in the operating room with application of advanced wound care products including amniofill and epicord. He also previously completed a vascular surgery evaluation with Dr. De Anda and an Angio without any identifiable intervention noted. He denies fever, chill, nausea, vomiting. He is a paraplegic and presents in a wheelchair. He continues to take Fred supplementation. He uses bilateral donut offloading pillows and this helps keep pressure off the sites. He continues hyperbaric oxygen therapy. He is with his today. Progress of Wound: Improving right leg ulcer. healed right ankle and heel ulcer. healed left leg ulcer - Physical Exam Vital Signs Temp Pulse Resp BP 97.5 F L 68 20 H 137/73 H 01/16/19 12:00 01/16/19 12:00 01/16/19 12:00 01/16/19 12:00 General: Alert, Oriented x3, Cooperative Extremities: No cyanosis, Capillary Refill Less than 3 Seconds, No Calf Tenderness, Diminished Peripheral Pulses, Edema - mild bilateral, - - paralysis bilateral lower extremities Skin: Ulcer/ Wound - no purulence, no erythema, no streakling, no necrosis bilateral. full epithelialization is noted to left leg, right ankle, and right heel. peripheral skin is hairless and atrophic bilateral. Wound Measurements and Assessment WC - Nurse 1 - General Ulcer Measurement Start: 01/01/19 13:48 Freq: Status: Active Protocol: Activity Type Activity Date Activity User E-Sign Co-Sign Detail Recorded Client Recorded Date Recorded By Document 01/16/19 12:00 DL [id number] 01/16/19 12:24 DL 01/16/19 12:00 Wound Center Nurse 1 [Ulcer Assessment] #7 Lateral RLE -Combined with other wound No -Current Size (cm) - Length 1.7 -Current Size (cm) - Width 1.1 -Current Size (cm) - Depth 0.2 -Total Square Cm 1.87 -Photo Taken No -Epithelialization None Present -Tunneling No -Undermining/Tunneling No -Circular Undermining No -Classification - Thickness Full Thickness without Exposed Support Structure -Wound Margin Indistinct, Non -Visible -Granulation Amt Medium (34-66%) -Granulation Quality Red -Slough/Fibrin Yes -Necrosis Amt Medium (34-66%) -Necrotic Tissue Type Adherent Slough -Structure Exposed None/Limited to Skin Breakdown -Texture (Denisse-wound Skin Appearance) Assessed Localized Edema -Moisture (Denisse-wound Skin Appearance Assessed ) Dry/Scaly -Color (Denisse-wound Skin Appearance) Assessed Erythema -Temperature (Denisse-wound Skin No Abnormality Appearance) (Pt Warm) -Tenderness on Palpation (Denisse-wound No Skin Appearance) -Ulcer Cleansing Rinsed/ Irrigated with Saline -Foul Odor after Cleansing No -Anesthetic Used 4% Lidocaine Solution #5 Posterior LLE -Combined with other wound No -Current Size (cm) - Length 0.1 -Current Size (cm) - Width 0.1 -Current Size (cm) - Depth 0.1 -Total Square Cm 0.01 -Photo Taken No -Epithelialization None Present -Undermining/Tunneling No -Circular Undermining No -Classification - Thickness Full Thickness without Exposed Support Structure -Exudate Amt None Present -Wound Margin Flat & Intact -Granulation Amt Small (1-33%) -Granulation Quality Red -Slough/Fibrin No -Necrosis Amt Small (1-33%) -Necrotic Tissue Type Adherent Slough -Structure Exposed None/Limited to Skin Breakdown -Texture (Denisse-wound Skin Appearance) Assessed Scarring -Moisture (Denisse-wound Skin Appearance Assessed ) Dry/Scaly -Color (Denisse-wound Skin Appearance) No Abnormality Assessed #3 Right Heel -Combined with other wound No -Current Size (cm) - Length 5.0 -Current Size (cm) - Width 1.5 -Current Size (cm) - Depth 0.1 -Total Square Cm 7.50 -Photo Taken No -Epithelialization None Present -Tunneling No -Undermining/Tunneling No -Circular Undermining No -Classification - Thickness Full Thickness without Exposed Support Structure -Exudate Type Serosanguineous -Wound Margin Indistinct, Non -Visible -Granulation Amt Large (67-100%) -Granulation Quality Red -Slough/Fibrin Yes -Necrosis Amt Small (1-33%) -Necrotic Tissue Type Adherent Slough -Structure Exposed None/Limited to Skin Breakdown -Texture (Denisse-wound Skin Appearance) Assessed Scarring -Moisture (Denisse-wound Skin Appearance Assessed ) Dry/Scaly -Color (Denisse-wound Skin Appearance) No Abnormality Assessed -Temperature (Denisse-wound Skin No Abnormality Appearance) (Pt Warm) -Tenderness on Palpation (Denisse-wound No Skin Appearance) -Ulcer Cleansing soap -Foul Odor after Cleansing No -Anesthetic Used 4% Lidocaine Solution #2 Right Lateral Ankle -Combined with other wound No -Current Size (cm) - Length 0.7 -Current Size (cm) - Width 0.7 -Current Size (cm) - Depth 0.1 -Total Square Cm 0.49 -Photo Taken No -Epithelialization None Present -Tunneling No -Undermining/Tunneling No -Circular Undermining No -Classification - Thickness Full Thickness without Exposed Support Structure -Granulation Amt None Present (0 %) -Granulation Quality N/A -Slough/Fibrin No -Necrosis Amt Small (1-33%) -Necrotic Tissue Type Adherent Slough -Structure Exposed None/Limited to Skin Breakdown -Texture (Denisse-wound Skin Appearance) No Abnormality Assessed Scarring -Moisture (Denisse-wound Skin Appearance Assessed ) Dry/Scaly -Color (Denisse-wound Skin Appearance) No Abnormality Assessed -Temperature (Denisse-wound Skin No Abnormality Appearance) (Pt Warm) -Tenderness on Palpation (Denisse-wound No Skin Appearance) -Ulcer Cleansing Rinsed/ Irrigated with Saline -Foul Odor after Cleansing No -Anesthetic Used 4% Lidocaine Solution [Edema Assessment] -Lower Limb Edema Present No -Right Calf (cm) 30.0 -Right Ankle (cm) 20.0 -Left Calf (cm) 27.5 -Left Ankle (cm) 21.0 WC - Nurse 2 - General Ulcer CM Notes Start: 01/01/19 13:48 Freq: Status: Active Protocol: Activity Type Activity Date Activity User E-Sign Co-Sign Detail Recorded Client Recorded Date Recorded By Document 01/16/19 12:31 CAMERON [id number] 01/16/19 12:41 CAMERON 01/16/19 12:31 Wound Center Nurse 2 [Procedure/Treatment] #7 Lateral RLE -Time 12:31 -Correct Patient Yes -Correct Side, Site, Position Yes -Correct Procedure Yes -Procedure Performed Yes -Type of Procedure Debridement -Clinical Debridement Subcutaneous -Post Debridement Size (cm) - Length 1.7 -Post Debridement Size (cm) - Width 1.2 -Post Debridement Size (cm) - Depth 0.2 -Total Square Cm 2.04 -Wound/Ulcer Outcome Not Healed -Ulcer Cleansing Rinsed/ Irrigated with Saline -Foul Odor after Cleansing No -Bioengineered Tissue Yes -Type of bioengineered Tissue EPIFIX -Expiration Date 06/27/23 -Product Lot Number [id number] -Percent Used 100 -Saline Lot Number [id number] -Bleeding Controlled with Pressure -Offloading No -Treatment Response Procedure Tolerated Well #5 Posterior LLE -Correct Patient No -Correct Side, Site, Position No -Correct Procedure No -Procedure Performed No -Post Debridement Size (cm) - Length 0 -Post Debridement Size (cm) - Width 0 -Post Debridement Size (cm) - Depth 0 -Total Square Cm 0 -Wound/Ulcer Outcome Healed- Epithelialized -Ulcer Cleansing Rinsed/ Irrigated with Saline -Foul Odor after Cleansing No -Bioengineered Tissue No -Bleeding Controlled with Pressure -Offloading No -Treatment Response Procedure Tolerated Well #3 Right Heel -Time 12:33 -Correct Patient Yes -Correct Side, Site, Position Yes -Correct Procedure Yes -Procedure Performed Yes -Type of Procedure Debridement -Clinical Debridement Subcutaneous -Post Debridement Size (cm) - Length 0 -Post Debridement Size (cm) - Width 0 -Post Debridement Size (cm) - Depth 0 -Total Square Cm 0 -Wound/Ulcer Outcome Healed- Epithelialized -Ulcer Cleansing Rinsed/ Irrigated with Saline -Foul Odor after Cleansing No -Bioengineered Tissue Yes -Bleeding Controlled with Pressure -Offloading No -Treatment Response Procedure Tolerated Well #2 Right Lateral Ankle -Time 12:33 -Correct Patient No -Correct Side, Site, Position No -Correct Procedure No -Procedure Performed No -Post Debridement Size (cm) - Length 0 -Post Debridement Size (cm) - Width 0 -Post Debridement Size (cm) - Depth 0 -Total Square Cm 0 -Wound/Ulcer Outcome Healed- Epithelialized -Bleeding Controlled with Pressure -Offloading No -Treatment Response Procedure Tolerated Well [See Physician Procedure note for Specifics] Pain Scale: 0-10 Numeric [Pain] -Is Patient Pain Free? Yes Musculoskeletal: No Tenderness to Palpation of Joints or Extremities, Muscle Wasting Neurological: - - lack of epicritic sensation noted Psych/Mental Status: Normal Affect, Appropriate Debridement Note Post-Debridement Measurements/Treatment WC - Nurse 2 - General Ulcer CM Notes Start: 01/01/19 13:48 Freq: Status: Active Protocol: Activity Type Activity Date Activity User E-Sign Co-Sign Detail Recorded Client Recorded Date Recorded By Document 01/02/19 11:48 [id number] 01/02/19 11:52 Document 01/09/19 11:50 [id number] 01/09/19 11:53 Document 01/16/19 12:31 [id number] 01/16/19 12:41 01/02/19 01/09/19 01/16/19 11:48 11:50 12:31 Wound Center Nurse 2 #7 Lateral RLE -Time 11:49 11:50 12:31 -Correct Patient Yes Yes Yes -Correct Side, Site, Position Yes Yes Yes -Correct Procedure Yes Yes Yes -Procedure Performed Yes Yes Yes -Type of Procedure Debridement Debridement Debridement -Clinical Debridement Subcutaneous Subcutaneous Subcutaneous -Post Debridement Size (cm) - Length 1.3 2 1.7 -Post Debridement Size (cm) - Width 1.7 2 1.2 -Post Debridement Size (cm) - Depth 0.3 0.4 0.2 -Total Square Cm 2.21 4 2.04 -Wound/Ulcer Outcome Not Healed Not Healed Not Healed -Ulcer Cleansing Rinsed/ Rinsed/ Rinsed/ Irrigated with Irrigated with Irrigated with Saline Saline Saline -Foul Odor after Cleansing No No No -Bioengineered Tissue Yes Yes Yes -Type of bioengineered Tissue EPIFIX EPIFIX EPIFIX -Expiration Date 06/27/23 06/27/23 06/27/23 -Product Lot Number [id number] -Percent Used 100 100 100 -Saline Lot Number [id number] -Bleeding Controlled with Pressure Pressure Pressure -Offloading Yes No No -Type of Offloading Surgical Shoe -Treatment Response Procedure Procedure Procedure Tolerated Well Tolerated Well Tolerated Well #5 Posterior LLE -Time 11:49 -Correct Patient Yes No No -Correct Side, Site, Position Yes No No -Correct Procedure Yes No No -Procedure Performed Yes No No -Type of Procedure Debridement -Clinical Debridement Subcutaneous -Post Debridement Size (cm) - Length 0.3 0 -Post Debridement Size (cm) - Width 0.3 0 -Post Debridement Size (cm) - Depth 0.1 0 -Total Square Cm 0.09 0 -Wound/Ulcer Outcome Not Healed Not Healed Healed- Epithelialized -Ulcer Cleansing Rinsed/ Rinsed/ Irrigated with Irrigated with Saline Saline -Foul Odor after Cleansing No No -Bioengineered Tissue No No -Bleeding Controlled with Pressure Pressure -Offloading Yes No -Type of Offloading Surgical Shoe -Treatment Response Procedure Procedure Tolerated Well Tolerated Well #3 Right Heel -Time 11:50 11:51 12:33 -Correct Patient Yes Yes Yes -Correct Side, Site, Position Yes Yes Yes -Correct Procedure Yes Yes Yes -Procedure Performed Yes Yes Yes -Type of Procedure Debridement Debridement Debridement -Clinical Debridement Subcutaneous Subcutaneous Subcutaneous -Post Debridement Size (cm) - Length 1.8 2.5 0 -Post Debridement Size (cm) - Width 4 4.6 0 -Post Debridement Size (cm) - Depth 0.1 0.1 0 -Total Square Cm 7.2 11.50 0 -Wound/Ulcer Outcome Not Healed Not Healed Healed- Epithelialized -Ulcer Cleansing Rinsed/ Rinsed/ Rinsed/ Irrigated with Irrigated with Irrigated with Saline Saline Saline -Foul Odor after Cleansing No No No -Bioengineered Tissue Yes Yes Yes -Type of bioengineered Tissue EPIFIX EPIFIX -Expiration Date 06/27/23 06/27/23 -Product Lot Number [id number] -Percent Used 100 100 -Saline Lot Number [id number] -Bleeding Controlled with Pressure Pressure Pressure -Offloading Yes No No -Type of Offloading Surgical Shoe -Treatment Response Procedure Procedure Procedure Tolerated Well Tolerated Well Tolerated Well #2 Right Lateral Ankle -Time 11:50 11:52 12:33 -Correct Patient Yes Yes No -Correct Side, Site, Position Yes Yes No -Correct Procedure Yes Yes No -Procedure Performed Yes Yes No -Type of Procedure Debridement Debridement -Clinical Debridement Subcutaneous Subcutaneous -Post Debridement Size (cm) - Length 1.5 1 0 -Post Debridement Size (cm) - Width 1.1 1.5 0 -Post Debridement Size (cm) - Depth 0.1 0.1 0 -Total Square Cm 1.65 1.5 0 -Wound/Ulcer Outcome Not Healed Not Healed Healed- Epithelialized -Ulcer Cleansing Rinsed/ Rinsed/ Irrigated with Irrigated with Saline Saline -Foul Odor after Cleansing No No -Bioengineered Tissue Yes Yes -Type of bioengineered Tissue EPIFIX EPIFIX -Expiration Date 06/27/23 06/27/23 -Product Lot Number [id number] -Percent Used 100 100 -Saline Lot Number [id number] -Bleeding Controlled with Pressure Pressure Pressure -Offloading Yes No No -Type of Offloading Surgical Shoe -Treatment Response Procedure Procedure Procedure Tolerated Well Tolerated Well Tolerated Well Pain Scale: 0-10 Numeric Is Patient Pain Free? Yes Yes Yes Wound debrided: lateral leg Laterality: Right Type of Debridement: Excisional debridement Anesthesia Used: 5% Lidocaine Gel Depth: in the subcutaneous layer Percentage of wound debrided: 100 Instrument Used: #15 blade Tissue Removed: fibrous, devitalized subcutaneous, biofilm, slough Severity: Fat Layer Exposed Amount of bleeding with debridement: Mild Bleeding Controlled with: Pressure Patient tolerated procedure well Assessment/Plan Active Problems (Last Reviewed 08/13/18 @ 10:19 by Fernando Patterson MD) Ulcer of right lower extremity with fat layer exposed (Chronic) Chronic osteomyelitis involving left ankle and foot (Acute) Ulcer of right lower extremity with necrosis of muscle (Chronic) Other chronic osteomyelitis,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 (Chronic) Paralysis (Chronic) Malnutrition (Chronic) Delayed wound healing (Chronic) Ulcer of right lower extremity with fat layer exposed (Chronic) previously unstageable pressure ulcer Assessment: Right lateral ankle ulcer healed. Right lateral leg ulcer, fat layer exposed. refractory osteomyelitis calcaneus, right. Right heel ulcer healed. Left leg ulcer healed. Peripheral vascular disease with rest pain. Other comorbidities. Delayed healing. Malnutrition. Paralysis and gait impairment with wheelchair use Plan: I reviewed and discussed his case today. The advance wound care product remains intact. Debridement and a subcutaneous excisional manner was performed to right lateral leg. Advanced wound care product, epi fix was applied to the right leg. This was secured in place with a wound veil, hydrogel, and Steri-Strips. Verbal consent was obtained prior to applying this. He tolerated this well. He was advised to keep this dressing clean, dry, and intact until follow-up next week. This is medically necessary to optimize healing. Today, a secondary dressing was applied with additional Tubigrip for continued edema management. No other dressings required due to healing. To monitor the recenlty healed sites due to fragility. Home health is on hold this week. This will be monitored very closely and there does not appear to be an infection. He had recent noninvasive vascular studies performed which demonstrated noncompressible vessels in which ankle-brachial indices were not calculated. This is consistent with rest pain as well as multisegmental occlusive disease and vessel calcification. He did go for consultation with Dr. De Anda previously who formed an angioplasty to her in which intervention options were not identified. It is noted he does have perfusion opportunities available to the lower extremity on the right side. His labs were updated previously and discussed in his white blood cell count is 6.0, sedimentation rate 14, and hemoglobin A1c 5.8%. His updated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 x-rays do not demonstrate osseous destruction, periosteal reaction, soft tissue emphysema, acute fracture dislocation, or foreign body. Vessel calcification is seen on plain x-ray consistent with vessel disease. It is noted he completed a 6-week course of IV antibiotics and infectious disease has also been following him closely. He had a previous MRI which demonstrated mild marrow edema to the left calcaneus and lateral ankle consistent with osteomyelitis; the adjacent ulcer site have healed. He also had previous MRI which demonstrated these same findings to right calcaneus with adjacent ongoing delayed healing ulcer; this is the area of concern for refractory osteomyelitis at this time. Due to delayed healing, pain, and continued deep tissue exposure this is consistent with chronic osteomyelitis. I recommend hyperbaric oxygen therapy to optimize healing; this is medically necessary to optimize healing. It is noted his ejection fraction is 65%. To proceed with hyperbaric oxygen treatments as scheduled; he is doing well. I answered all his questions. To continue with nutritional supplementation, Fred. To return to clinic in 1 week for physician reevaluation or call sooner if he has any questions or concerns.
--- NOTE | 2019-01-16 12:53 | PN.PCM_ITS ---
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 (2) Non-pressure chronic ulcer of other part of right foot with fat layer exp osed Status: Resolved Current Visit: Yes Code(s): L97.512 - Non-pressure chronic ulcer of other part of right foot with fat layer exposed (3) Ulcer of left lower extremity with necrosis of muscle Status: Resolved Current Visit: Yes Code(s): L97.923 - Non-pressure chronic ulcer of unspecified part of left lower leg with necrosis of muscle (4) Other chronic osteomyelitis,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 Status: Chronic Current Visit: Yes Code(s): M86.671 - Other chronic osteomyelitis,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 (5) Paralysis Status: Chronic Current Visit: Yes Code(s): G83.9 - Paralytic syndrome, unspecified (6) Malnutrition Status: Chronic Current Visit: Yes Code(s): E46 - Unspecified protein- calorie malnutrition (7) Delayed wound healing Status: Chronic Current Visit: Yes Code(s): T14.8XXD - Other injury of unspecified body region, subsequent encounter Type of Wound Date of Service: 01/16/19 Chief Complaint: 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 left leg ulcer. right ankle. Ulcer right heel. Paraplegia History of Wound: This 83-year-old male with multiple comorbidities was seen at the wound healing center for pressure ulcers to bilateral lower extremities. He previously had versa jet debridement in the operating room with application of advanced wound care products including amniofill and epicord. He also previously completed a vascular surgery evaluation with Dr. De Anda and an Angio without any identifiable intervention noted. He denies fever, chill, nausea, vomiting. He is a paraplegic and presents in a wheelchair. He continues to take Fred supplementation. He uses bilateral donut offloading pillows and this helps keep pressure off the sites. He continues hyperbaric oxygen therapy. He is with his today. Progress of Wound: Improving right leg ulcer. healed right ankle and heel ulcer. healed left leg ulcer - Physical Exam Vital Signs Temp Pulse Resp BP 97.5 F L 68 20 H 137/73 H 01/16/19 12:00 01/16/19 12:00 01/16/19 12:00 01/16/19 12:00 General: Alert, Oriented x3, Cooperative Extremities: No cyanosis, Capillary Refill Less than 3 Seconds, No Calf Tenderness, Diminished Peripheral Pulses, Edema - mild bilateral, - - paralysis bilateral lower extremities Skin: Ulcer/ Wound - no purulence, no erythema, no streakling, no necrosis bilateral. full epithelialization is noted to left leg, right ankle, and right heel. peripheral skin is hairless and atrophic bilateral. Wound Measurements and Assessment WC - Nurse 1 - General Ulcer Measurement Start: 01/01/19 13:48 Freq: Status: Active Protocol: Activity Type Activity Date Activity User E-Sign Co-Sign Detail Recorded Client Recorded Date Recorded By Document 01/16/19 12:00 DL [id number] 01/16/19 12:24 DL 01/16/19 12:00 Wound Center Nurse 1 [Ulcer Assessment] #7 Lateral RLE -Combined with other wound No -Current Size (cm) - Length 1.7 -Current Size (cm) - Width 1.1 -Current Size (cm) - Depth 0.2 -Total Square Cm 1.87 -Photo Taken No -Epithelialization None Present -Tunneling No -Undermining/Tunneling No -Circular Undermining No -Classification - Thickness Full Thickness without Exposed Support Structure -Wound Margin Indistinct, Non -Visible -Granulation Amt Medium (34-66%) -Granulation Quality Red -Slough/Fibrin Yes -Necrosis Amt Medium (34-66%) -Necrotic Tissue Type Adherent Slough -Structure Exposed None/Limited to Skin Breakdown -Texture (Denisse-wound Skin Appearance) Assessed Localized Edema -Moisture (Denisse-wound Skin Appearance Assessed ) Dry/Scaly -Color (Denisse-wound Skin Appearance) Assessed Erythema -Temperature (Denisse-wound Skin No Abnormality Appearance) (Pt Warm) -Tenderness on Palpation (Denisse-wound No Skin Appearance) -Ulcer Cleansing Rinsed/ Irrigated with Saline -Foul Odor after Cleansing No -Anesthetic Used 4% Lidocaine Solution #5 Posterior LLE -Combined with other wound No -Current Size (cm) - Length 0.1 -Current Size (cm) - Width 0.1 -Current Size (cm) - Depth 0.1 -Total Square Cm 0.01 -Photo Taken No -Epithelialization None Present -Undermining/Tunneling No -Circular Undermining No -Classification - Thickness Full Thickness without Exposed Support Structure -Exudate Amt None Present -Wound Margin Flat & Intact -Granulation Amt Small (1-33%) -Granulation Quality Red -Slough/Fibrin No -Necrosis Amt Small (1-33%) -Necrotic Tissue Type Adherent Slough -Structure Exposed None/Limited to Skin Breakdown -Texture (Denisse-wound Skin Appearance) Assessed Scarring -Moisture (Denisse-wound Skin Appearance Assessed ) Dry/Scaly -Color (Denisse-wound Skin Appearance) No Abnormality Assessed #3 Right Heel -Combined with other wound No -Current Size (cm) - Length 5.0 -Current Size (cm) - Width 1.5 -Current Size (cm) - Depth 0.1 -Total Square Cm 7.50 -Photo Taken No -Epithelialization None Present -Tunneling No -Undermining/Tunneling No -Circular Undermining No -Classification - Thickness Full Thickness without Exposed Support Structure -Exudate Type Serosanguineous -Wound Margin Indistinct, Non -Visible -Granulation Amt Large (67-100%) -Granulation Quality Red -Slough/Fibrin Yes -Necrosis Amt Small (1-33%) -Necrotic Tissue Type Adherent Slough -Structure Exposed None/Limited to Skin Breakdown -Texture (Denisse-wound Skin Appearance) Assessed Scarring -Moisture (Denisse-wound Skin Appearance Assessed ) Dry/Scaly -Color (Denisse-wound Skin Appearance) No Abnormality Assessed -Temperature (Denisse-wound Skin No Abnormality Appearance) (Pt Warm) -Tenderness on Palpation (Denisse-wound No Skin Appearance) -Ulcer Cleansing soap -Foul Odor after Cleansing No -Anesthetic Used 4% Lidocaine Solution #2 Right Lateral Ankle -Combined with other wound No -Current Size (cm) - Length 0.7 -Current Size (cm) - Width 0.7 -Current Size (cm) - Depth 0.1 -Total Square Cm 0.49 -Photo Taken No -Epithelialization None Present -Tunneling No -Undermining/Tunneling No -Circular Undermining No -Classification - Thickness Full Thickness without Exposed Support Structure -Granulation Amt None Present (0 %) -Granulation Quality N/A -Slough/Fibrin No -Necrosis Amt Small (1-33%) -Necrotic Tissue Type Adherent Slough -Structure Exposed None/Limited to Skin Breakdown -Texture (Denisse-wound Skin Appearance) No Abnormality Assessed Scarring -Moisture (Denisse-wound Skin Appearance Assessed ) Dry/Scaly -Color (Denisse-wound Skin Appearance) No Abnormality Assessed -Temperature (Denisse-wound Skin No Abnormality Appearance) (Pt Warm) -Tenderness on Palpation (Denisse-wound No Skin Appearance) -Ulcer Cleansing Rinsed/ Irrigated with Saline -Foul Odor after Cleansing No -Anesthetic Used 4% Lidocaine Solution [Edema Assessment] -Lower Limb Edema Present No -Right Calf (cm) 30.0 -Right Ankle (cm) 20.0 -Left Calf (cm) 27.5 -Left Ankle (cm) 21.0 WC - Nurse 2 - General Ulcer CM Notes Start: 01/01/19 13:48 Freq: Status: Active Protocol: Activity Type Activity Date Activity User E-Sign Co-Sign Detail Recorded Client Recorded Date Recorded By Document 01/16/19 12:31 CAMERON [id number] 01/16/19 12:41 CAMERON 01/16/19 12:31 Wound Center Nurse 2 [Procedure/Treatment] #7 Lateral RLE -Time 12:31 -Correct Patient Yes -Correct Side, Site, Position Yes -Correct Procedure Yes -Procedure Performed Yes -Type of Procedure Debridement -Clinical Debridement Subcutaneous -Post Debridement Size (cm) - Length 1.7 -Post Debridement Size (cm) - Width 1.2 -Post Debridement Size (cm) - Depth 0.2 -Total Square Cm 2.04 -Wound/Ulcer Outcome Not Healed -Ulcer Cleansing Rinsed/ Irrigated with Saline -Foul Odor after Cleansing No -Bioengineered Tissue Yes -Type of bioengineered Tissue EPIFIX -Expiration Date 06/27/23 -Product Lot Number [id number] -Percent Used 100 -Saline Lot Number [id number] -Bleeding Controlled with Pressure -Offloading No -Treatment Response Procedure Tolerated Well #5 Posterior LLE -Correct Patient No -Correct Side, Site, Position No -Correct Procedure No -Procedure Performed No -Post Debridement Size (cm) - Length 0 -Post Debridement Size (cm) - Width 0 -Post Debridement Size (cm) - Depth 0 -Total Square Cm 0 -Wound/Ulcer Outcome Healed- Epithelialized -Ulcer Cleansing Rinsed/ Irrigated with Saline -Foul Odor after Cleansing No -Bioengineered Tissue No -Bleeding Controlled with Pressure -Offloading No -Treatment Response Procedure Tolerated Well #3 Right Heel -Time 12:33 -Correct Patient Yes -Correct Side, Site, Position Yes -Correct Procedure Yes -Procedure Performed Yes -Type of Procedure Debridement -Clinical Debridement Subcutaneous -Post Debridement Size (cm) - Length 0 -Post Debridement Size (cm) - Width 0 -Post Debridement Size (cm) - Depth 0 -Total Square Cm 0 -Wound/Ulcer Outcome Healed- Epithelialized -Ulcer Cleansing Rinsed/ Irrigated with Saline -Foul Odor after Cleansing No -Bioengineered Tissue Yes -Bleeding Controlled with Pressure -Offloading No -Treatment Response Procedure Tolerated Well #2 Right Lateral Ankle -Time 12:33 -Correct Patient No -Correct Side, Site, Position No -Correct Procedure No -Procedure Performed No -Post Debridement Size (cm) - Length 0 -Post Debridement Size (cm) - Width 0 -Post Debridement Size (cm) - Depth 0 -Total Square Cm 0 -Wound/Ulcer Outcome Healed- Epithelialized -Bleeding Controlled with Pressure -Offloading No -Treatment Response Procedure Tolerated Well [See Physician Procedure note for Specifics] Pain Scale: 0-10 Numeric [Pain] -Is Patient Pain Free? Yes Musculoskeletal: No Tenderness to Palpation of Joints or Extremities, Muscle Wasting Neurological: - - lack of epicritic sensation noted Psych/Mental Status: Normal Affect, Appropriate Debridement Note Post-Debridement Measurements/Treatment WC - Nurse 2 - General Ulcer CM Notes Start: 01/01/19 13:48 Freq: Status: Active Protocol: Activity Type Activity Date Activity User E-Sign Co-Sign Detail Recorded Client Recorded Date Recorded By Document 01/02/19 11:48 [id number] 01/02/19 11:52 Document 01/09/19 11:50 [id number] 01/09/19 11:53 Document 01/16/19 12:31 [id number] 01/16/19 12:41 01/02/19 01/09/19 01/16/19 11:48 11:50 12:31 Wound Center Nurse 2 #7 Lateral RLE -Time 11:49 11:50 12:31 -Correct Patient Yes Yes Yes -Correct Side, Site, Position Yes Yes Yes -Correct Procedure Yes Yes Yes -Procedure Performed Yes Yes Yes -Type of Procedure Debridement Debridement Debridement -Clinical Debridement Subcutaneous Subcutaneous Subcutaneous -Post Debridement Size (cm) - Length 1.3 2 1.7 -Post Debridement Size (cm) - Width 1.7 2 1.2 -Post Debridement Size (cm) - Depth 0.3 0.4 0.2 -Total Square Cm 2.21 4 2.04 -Wound/Ulcer Outcome Not Healed Not Healed Not Healed -Ulcer Cleansing Rinsed/ Rinsed/ Rinsed/ Irrigated with Irrigated with Irrigated with Saline Saline Saline -Foul Odor after Cleansing No No No -Bioengineered Tissue Yes Yes Yes -Type of bioengineered Tissue EPIFIX EPIFIX EPIFIX -Expiration Date 06/27/23 06/27/23 06/27/23 -Product Lot Number [id number] -Percent Used 100 100 100 -Saline Lot Number [id number] -Bleeding Controlled with Pressure Pressure Pressure -Offloading Yes No No -Type of Offloading Surgical Shoe -Treatment Response Procedure Procedure Procedure Tolerated Well Tolerated Well Tolerated Well #5 Posterior LLE -Time 11:49 -Correct Patient Yes No No -Correct Side, Site, Position Yes No No -Correct Procedure Yes No No -Procedure Performed Yes No No -Type of Procedure Debridement -Clinical Debridement Subcutaneous -Post Debridement Size (cm) - Length 0.3 0 -Post Debridement Size (cm) - Width 0.3 0 -Post Debridement Size (cm) - Depth 0.1 0 -Total Square Cm 0.09 0 -Wound/Ulcer Outcome Not Healed Not Healed Healed- Epithelialized -Ulcer Cleansing Rinsed/ Rinsed/ Irrigated with Irrigated with Saline Saline -Foul Odor after Cleansing No No -Bioengineered Tissue No No -Bleeding Controlled with Pressure Pressure -Offloading Yes No -Type of Offloading Surgical Shoe -Treatment Response Procedure Procedure Tolerated Well Tolerated Well #3 Right Heel -Time 11:50 11:51 12:33 -Correct Patient Yes Yes Yes -Correct Side, Site, Position Yes Yes Yes -Correct Procedure Yes Yes Yes -Procedure Performed Yes Yes Yes -Type of Procedure Debridement Debridement Debridement -Clinical Debridement Subcutaneous Subcutaneous Subcutaneous -Post Debridement Size (cm) - Length 1.8 2.5 0 -Post Debridement Size (cm) - Width 4 4.6 0 -Post Debridement Size (cm) - Depth 0.1 0.1 0 -Total Square Cm 7.2 11.50 0 -Wound/Ulcer Outcome Not Healed Not Healed Healed- Epithelialized -Ulcer Cleansing Rinsed/ Rinsed/ Rinsed/ Irrigated with Irrigated with Irrigated with Saline Saline Saline -Foul Odor after Cleansing No No No -Bioengineered Tissue Yes Yes Yes -Type of bioengineered Tissue EPIFIX EPIFIX -Expiration Date 06/27/23 06/27/23 -Product Lot Number [id number] -Percent Used 100 100 -Saline Lot Number [id number] -Bleeding Controlled with Pressure Pressure Pressure -Offloading Yes No No -Type of Offloading Surgical Shoe -Treatment Response Procedure Procedure Procedure Tolerated Well Tolerated Well Tolerated Well #2 Right Lateral Ankle -Time 11:50 11:52 12:33 -Correct Patient Yes Yes No -Correct Side, Site, Position Yes Yes No -Correct Procedure Yes Yes No -Procedure Performed Yes Yes No -Type of Procedure Debridement Debridement -Clinical Debridement Subcutaneous Subcutaneous -Post Debridement Size (cm) - Length 1.5 1 0 -Post Debridement Size (cm) - Width 1.1 1.5 0 -Post Debridement Size (cm) - Depth 0.1 0.1 0 -Total Square Cm 1.65 1.5 0 -Wound/Ulcer Outcome Not Healed Not Healed Healed- Epithelialized -Ulcer Cleansing Rinsed/ Rinsed/ Irrigated with Irrigated with Saline Saline -Foul Odor after Cleansing No No -Bioengineered Tissue Yes Yes -Type of bioengineered Tissue EPIFIX EPIFIX -Expiration Date 06/27/23 06/27/23 -Product Lot Number [id number] -Percent Used 100 100 -Saline Lot Number [id number] -Bleeding Controlled with Pressure Pressure Pressure -Offloading Yes No No -Type of Offloading Surgical Shoe -Treatment Response Procedure Procedure Procedure Tolerated Well Tolerated Well Tolerated Well Pain Scale: 0-10 Numeric Is Patient Pain Free? Yes Yes Yes Wound debrided: lateral leg Laterality: Right Type of Debridement: Excisional debridement Anesthesia Used: 5% Lidocaine Gel Depth: in the subcutaneous layer Percentage of wound debrided: 100 Instrument Used: #15 blade Tissue Removed: fibrous, devitalized subcutaneous, biofilm, slough Severity: Fat Layer Exposed Amount of bleeding with debridement: Mild Bleeding Controlled with: Pressure Patient tolerated procedure well Assessment/Plan Active Problems (Last Reviewed 08/13/18 @ 10:19 by Fernando Patterson MD) Ulcer of right lower extremity with fat layer exposed (Chronic) Chronic osteomyelitis involving left ankle and foot (Acute) Ulcer of right lower extremity with necrosis of muscle (Chronic) Other chronic osteomyelitis,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 (Chronic) Paralysis (Chronic) Malnutrition (Chronic) Delayed wound healing (Chronic) Ulcer of right lower extremity with fat layer exposed (Chronic) previously unstageable pressure ulcer Assessment: Right lateral ankle ulcer healed. Right lateral leg ulcer, fat layer exposed. refractory osteomyelitis calcaneus, right. Right heel ulcer healed. Left leg ulcer healed. Peripheral vascular disease with rest pain. Other comorbidities. Delayed healing. Malnutrition. Paralysis and gait impairment with wheelchair use Plan: I reviewed and discussed his case today. The advance wound care product remains intact. Debridement and a subcutaneous excisional manner was performed to right lateral leg. Advanced wound care product, epi fix was applied to the right leg. This was secured in place with a wound veil, hydrogel, and Steri- Strips. Verbal consent was obtained prior to applying this. He tolerated this well. He was advised to keep this dressing clean, dry, and intact until follow-up next week. This is medically necessary to optimize healing. Today, a secondary dressing was applied with additional Tubigrip for continued edema management. No other dressings required due to healing. To monitor the recenlty healed sites due to fragility. Home health is on hold this week. This will be monitored very closely and there does not appear to be an infection. He had recent noninvasive vascular studies performed which demonstrated noncompressible vessels in which ankle-brachial indices were not calculated. This is consistent with rest pain as well as multisegmental occlusive disease and vessel calcification. He did go for consultation with Dr. De Anda previously who formed an angioplasty to her in which intervention options were not identified. It is noted he does have perfusion opportunities available to the lower extremity on the right side. His labs were updated previously and discussed in his white blood cell count is 6.0, sedimentation rate 14, and hemoglobin A1c 5.8%. His updated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 x-rays do not demonstrate osseous destruction, periosteal reaction, soft tissue emphysema, acute fracture dislocation, or foreign body. Vessel calcification is seen on plain x-ray consistent with vessel disease. It is noted he completed a 6-week course of IV antibiotics and infectious disease has also been following him closely. He had a previous MRI which demonstrated mild marrow edema to the left calcaneus and lateral ankle consistent with osteomyelitis; the adjacent ulcer site have healed. He also had previous MRI which demonstrated these same findings to right calcaneus with adjacent ongoing delayed healing ulcer; this is the area of concern for refractory osteomyelitis at this time. Due to delayed healing, pain, and continued deep tissue exposure this is consistent with chronic osteomyelitis. I recommend hyperbaric oxygen therapy to optimize healing; this is medically necessary to optimize healing. It is noted his ejection fraction is 65%. To proceed with hyperbaric oxygen treatments as scheduled; he is doing well. I answered all his questions. To continue with nutritional supplementation, Fred. To return to clinic in 1 week for physician reevaluation or call sooner if he has any questions or concerns.
[2019-01-17 10:18] VITALS: BP 112/72; BP 140/72; PULSE 75; PULSE 76; RESP 16; RESP 18; TEMP 36.4; TEMP 36.6
--- NOTE | 2019-01-17 12:42 | PCM.HBO.PN ---
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 left leg ulcer. right ankle. Ulcer right heel. 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 Progress: The patient appears to be tolerating hyperbaric oxygen therapy well. Today's a session represents the 37th such session of hyperbaric oxygen therapy. Tolerance of hyperbaric oxygen therapy: Hyperbaric oxygen therapy was administered as per the facility's protocol. The patient tolerated hyperbaric oxygen therapy well, without complaints or complications. Upon emergence from the hyperbaric chamber, the patient's vital signs remained stable. He was discharged in good condition. 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) Other chronic osteomyelitis,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 (Chronic) Ulcer of right foot with fat layer exposed (Chronic) previously unstageable pressure ulcer Paralysis (Chronic) Other specified peripheral vascular diseases (Chronic) Unstageable pressure ulcer of left foot (Chronic) Unstageable pressure ulcer of right foot (Chronic) Ulcer of left lower extremity with fat layer exposed (Chronic) previously unstageable pressure ulcer Malnutrition (Chronic) Delayed wound healing (Chronic) Edema leg (Chronic) Paralysis (Chronic) Ulcer of right lower extremity with fat layer exposed (Chronic) previously unstageable pressure ulcer Osteomyelitis (Chronic) Chronic pain (Chronic) Nocardia infection (Chronic) 2004, right arm and left leg, 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 Allergies/Adverse Reactions: Allergies Cephalosporins Allergy (Intermediate, Verified 11/06/18 08:58) Laryngospasms Penicillins Allergy (Intermediate, Verified 11/06/18 08:58) Rash IVP DYE Allergy (Uncoded 11/06/18 08:58) Rash Home Medications: Ambulatory Orders Medication Instructions Recorded Losartan Potassium [Cozaar] 12.5 mg PO DAILY 01/12/16 Riboflavin (Vitamin B2) [Vitamin 300 mg PO DAILY@1700 11/10/16 B2] Ascorbic Acid [Vitamin C] 500 mg PO TID 07/05/18 Gabapentin [Neurontin] 600 mg PO TID 07/05/18 [place] Carbonate 150 mg PO TID 07/05/18 Furosemide [Lasix] 40 mg PO DAILY 08/11/18 Magnesium 500 mg PO BID 08/11/18 Sennosides/Docusate Sodium 2 each PO DAILY 08/11/18 [Senna-S Laxative Tablet] traZODone [Desyrel] 25 mg PO QHS 08/11/18 Collagenase [Santyl] 1 applic TOPICAL DAILY tube 08/14/18 Mineral Oil/Petrolatum,White 1 applic TOPICAL BID jar 08/14/18 [Eucerin] Atorvastatin Calcium [Lipitor] 40 mg PO QHS 11/06/18 Carvedilol [Coreg (Beta Krissy)] 3.125 mg PO BID 11/06/18 Clopidogrel Bisulfate [Plavix] 75 mg PO DAILY 11/06/18 Cyclobenzaprine [Flexeril] 2.5 mg PO QHS PRN 11/06/18 Duloxetine Hcl [Cymbalta] 60 mg PO DAILY 11/06/18 Isosorbide Mononitrate 10 mg PO QHS 11/06/18 Morphine Sulfate [Morphine Sulfate 15 mg PO BID 11/06/18 ER] Multivitamins,Ther W-Minerals 1 tablet PO DAILY 11/06/18 [Multivitamin With Minerals] Nutritional Supplement [Fred - 1 packet PO BIDCM 11/06/18 [place] FLAVOR] Pyridoxine HCl [Vitamin B-6] 100 mg PO DAILY 11/06/18 Smz/Tmp Ds [Bactrim Ds] 1 tablet PO DAILY 11/06/18 Tamsulosin HCl [Flomax] 0.4 mg PO 1700 11/06/18 Maternal Family History: - - , depression Paternal Family History: - - Offspring Family History: - - 2 children, 4 grand children, 1 great grandchild, all in good health Lives: Spouse/ Significant Other Smoking Status: Never smoker Tobacco Use: Non-smoker Physical Exam Vital Signs Temp Pulse Resp BP 97.5 F L 76 18 112/72 01/17/19 10:18 01/17/19 10:18 01/17/19 10:18 01/17/19 10:18 General: Alert, Oriented x3, Cooperative, No apparent distress HEENT: Atraumatic, Normocephalic Lungs: Normal air movement Psych/Mental Status: Normal Affect Assessment/Plan Active Problems (Last Reviewed 08/13/18 @ 10:19 by Fernando Patterson MD) Ulcer of right lower extremity with fat layer exposed (Chronic) Chronic osteomyelitis involving left ankle and foot (Acute) Ulcer of right lower extremity with necrosis of muscle (Chronic) Other chronic osteomyelitis,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 (Chronic) Paralysis (Chronic) Malnutrition (Chronic) Delayed wound healing (Chronic) Ulcer of right lower extremity with fat layer exposed (Chronic) previously unstageable pressure ulcer The patient appears to be tolerating hyperbaric oxygen therapy well, which will be continued as per the patient's medical plan.
[2019-01-18 09:15] VITALS: BP 140/76; BP 152/75; PULSE 70; PULSE 76; RESP 16; RESP 18; TEMP 36.5; TEMP 36.9
--- NOTE | 2019-01-18 10:51 | PCM.HBO.PN ---
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 left leg ulcer. right ankle. Ulcer right heel. 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 Progress: The patient appears to be tolerating hyperbaric oxygen therapy well. Today's a session represents the 37th such session of hyperbaric oxygen therapy. Tolerance of hyperbaric oxygen therapy: Hyperbaric oxygen therapy was administered as per the facility's protocol. The patient tolerated hyperbaric oxygen therapy well, without complaints or complications. Upon emergence from the hyperbaric chamber, the patient's vital signs remained stable. He was discharged in good condition. 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) Other chronic osteomyelitis,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 (Chronic) Ulcer of right foot with fat layer exposed (Chronic) previously unstageable pressure ulcer Paralysis (Chronic) Other specified peripheral vascular diseases (Chronic) Unstageable pressure ulcer of left foot (Chronic) Unstageable pressure ulcer of right foot (Chronic) Ulcer of left lower extremity with fat layer exposed (Chronic) previously unstageable pressure ulcer Malnutrition (Chronic) Delayed wound healing (Chronic) Edema leg (Chronic) Paralysis (Chronic) Ulcer of right lower extremity with fat layer exposed (Chronic) previously unstageable pressure ulcer Osteomyelitis (Chronic) Chronic pain (Chronic) Nocardia infection (Chronic) 2004, right arm and left leg, 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 Allergies/Adverse Reactions: Allergies Cephalosporins Allergy (Intermediate, Verified 11/06/18 08:58) Laryngospasms Penicillins Allergy (Intermediate, Verified 11/06/18 08:58) Rash IVP DYE Allergy (Uncoded 11/06/18 08:58) Rash Home Medications: Ambulatory Orders Medication Instructions Recorded Losartan Potassium [Cozaar] 12.5 mg PO DAILY 01/12/16 Riboflavin (Vitamin B2) [Vitamin 300 mg PO DAILY@1700 11/10/16 B2] Ascorbic Acid [Vitamin C] 500 mg PO TID 07/05/18 Gabapentin [Neurontin] 600 mg PO TID 07/05/18 [place] Carbonate 150 mg PO TID 07/05/18 Furosemide [Lasix] 40 mg PO DAILY 08/11/18 Magnesium 500 mg PO BID 08/11/18 Sennosides/Docusate Sodium 2 each PO DAILY 08/11/18 [Senna-S Laxative Tablet] traZODone [Desyrel] 25 mg PO QHS 08/11/18 Collagenase [Santyl] 1 applic TOPICAL DAILY tube 08/14/18 Mineral Oil/Petrolatum,White 1 applic TOPICAL BID jar 08/14/18 [Eucerin] Atorvastatin Calcium [Lipitor] 40 mg PO QHS 11/06/18 Carvedilol [Coreg (Beta Krissy)] 3.125 mg PO BID 11/06/18 Clopidogrel Bisulfate [Plavix] 75 mg PO DAILY 11/06/18 Cyclobenzaprine [Flexeril] 2.5 mg PO QHS PRN 11/06/18 Duloxetine Hcl [Cymbalta] 60 mg PO DAILY 11/06/18 Isosorbide Mononitrate 10 mg PO QHS 11/06/18 Morphine Sulfate [Morphine Sulfate 15 mg PO BID 11/06/18 ER] Multivitamins,Ther W-Minerals 1 tablet PO DAILY 11/06/18 [Multivitamin With Minerals] Nutritional Supplement [Fred - 1 packet PO BIDCM 11/06/18 [place] FLAVOR] Pyridoxine HCl [Vitamin B-6] 100 mg PO DAILY 11/06/18 Smz/Tmp Ds [Bactrim Ds] 1 tablet PO DAILY 11/06/18 Tamsulosin HCl [Flomax] 0.4 mg PO 1700 11/06/18 Maternal Family History: - - , depression Paternal Family History: - - Offspring Family History: - - 2 children, 4 grand children, 1 great grandchild, all in good health Lives: Spouse/ Significant Other Smoking Status: Never smoker Tobacco Use: Non-smoker Physical Exam Vital Signs Temp Pulse Resp BP 97.5 F L 76 18 112/72 01/17/19 10:18 01/17/19 10:18 01/17/19 10:18 01/17/19 10:18 Assessment/Plan Active Problems (Last Reviewed 08/13/18 @ 10:19 by Fernando Patterson MD) Ulcer of right lower extremity with fat layer exposed (Chronic) Chronic osteomyelitis involving left ankle and foot (Acute) Ulcer of right lower extremity with necrosis of muscle (Chronic) Other chronic osteomyelitis,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 (Chronic) Paralysis (Chronic) Malnutrition (Chronic) Delayed wound healing (Chronic) Ulcer of right lower extremity with fat layer exposed (Chronic) previously unstageable pressure ulcer The patient appears to be tolerating hyperbaric oxygen therapy well, which will be continued as per the patient's medical plan.
--- NOTE | 2019-01-21 09:36 | HBO.PN.PCM_ITS ---
History of Present Illness Date of Service: 01/21/19 Presenting Chief Complaint: 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 left leg ulcer. right ankle. Ulcer right heel. 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 Progress: The patient appears to be tolerating hyperbaric oxygen therapy well. Today's a session represents the 39th such session of hyperbaric oxygen therapy. Tolerance of hyperbaric oxygen therapy: Hyperbaric oxygen therapy was administered as per the facility's protocol. The patient tolerated hyperbaric oxygen therapy well, without complaints or complications. Upon emergence from the hyperbaric chamber, the patient's vital signs remained stable. He was discharged in good condition. 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) Other chronic osteomyelitis,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 (Chronic) Ulcer of right foot with fat layer exposed (Chronic) previously unstageable pressure ulcer Paralysis (Chronic) Other specified peripheral vascular diseases (Chronic) Unstageable pressure ulcer of left foot (Chronic) Unstageable pressure ulcer of right foot (Chronic) Ulcer of left lower extremity with fat layer exposed (Chronic) previously unstageable pressure ulcer Malnutrition (Chronic) Delayed wound healing (Chronic) Edema leg (Chronic) Paralysis (Chronic) Ulcer of right lower extremity with fat layer exposed (Chronic) previously unstageable pressure ulcer Osteomyelitis (Chronic) Chronic pain (Chronic) Nocardia infection (Chronic) 2004, right arm and left leg, 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 Allergies/Adverse Reactions: Allergies Cephalosporins Allergy (Intermediate, Verified 11/06/18 08:58) Laryngospasms Penicillins Allergy (Intermediate, Verified 11/06/18 08:58) Rash IVP DYE Allergy (Uncoded 11/06/18 08:58) Rash Home Medications: Ambulatory Orders Medication Instructions Recorded Losartan Potassium [Cozaar] 12.5 mg PO DAILY 01/12/16 Riboflavin (Vitamin B2) [Vitamin 300 mg PO DAILY@1700 11/10/16 B2] Ascorbic Acid [Vitamin C] 500 mg PO TID 07/05/18 Gabapentin [Neurontin] 600 mg PO TID 07/05/18 [place] Carbonate 150 mg PO TID 07/05/18 Furosemide [Lasix] 40 mg PO DAILY 08/11/18 Magnesium 500 mg PO BID 08/11/18 Sennosides/Docusate Sodium 2 each PO DAILY 08/11/18 [Senna-S Laxative Tablet] traZODone [Desyrel] 25 mg PO QHS 08/11/18 Collagenase [Santyl] 1 applic TOPICAL DAILY tube 08/14/18 Mineral Oil/Petrolatum,White 1 applic TOPICAL BID jar 08/14/18 [Eucerin] Atorvastatin Calcium [Lipitor] 40 mg PO QHS 11/06/18 Carvedilol [Coreg (Beta Krissy)] 3.125 mg PO BID 11/06/18 Clopidogrel Bisulfate [Plavix] 75 mg PO DAILY 11/06/18 Cyclobenzaprine [Flexeril] 2.5 mg PO QHS PRN 11/06/18 Duloxetine Hcl [Cymbalta] 60 mg PO DAILY 11/06/18 Isosorbide Mononitrate 10 mg PO QHS 11/06/18 Morphine Sulfate [Morphine Sulfate 15 mg PO BID 11/06/18 ER] Multivitamins,Ther W-Minerals 1 tablet PO DAILY 11/06/18 [Multivitamin With Minerals] Nutritional Supplement [Fred - 1 packet PO BIDCM 11/06/18 [place] FLAVOR] Pyridoxine HCl [Vitamin B-6] 100 mg PO DAILY 11/06/18 Smz/Tmp Ds [Bactrim Ds] 1 tablet PO DAILY 11/06/18 Tamsulosin HCl [Flomax] 0.4 mg PO 1700 11/06/18 Maternal Family History: - - , depression Paternal Family History: - - Offspring Family History: - - 2 children, 4 grand children, 1 great grandchild, all in good health Lives: Spouse/ Significant Other Smoking Status: Never smoker Tobacco Use: Non-smoker Physical Exam Vital Signs Temp Pulse Resp BP 97.7 F L 76 18 140/76 H 01/18/19 09:15 01/18/19 09:15 01/18/19 09:15 01/18/19 09:15 General: Alert, Oriented x3, Cooperative, No apparent distress HEENT: Atraumatic, TM's Clear Lungs: Clear to auscultation, Normal air movement Cardiovascular: Regular rate, Regular Rhythm Psych/Mental Status: Normal Affect, Appropriate, Alert and oriented to time, place, person, mood and affect Assessment/Plan The patient appears to be tolerating hyperbaric oxygen therapy well, which will be continued as per the patient's medical plan.
[2019-01-21 09:50] VITALS: BP 121/64; BP 141/76; PULSE 68; PULSE 87; RESP 16; TEMP 36.6; TEMP 36.8
[2019-01-22 11:45] VITALS: BP 135/67; BP 135/71; PULSE 64; PULSE 74; RESP 16; RESP 18; TEMP 36.4
--- NOTE | 2019-01-22 12:12 | PCM.HBO.PN ---
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 left leg ulcer. right ankle. Ulcer right heel. 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 Progress: The patient appears to be tolerating hyperbaric oxygen therapy well. Today's a session represents the 40th such session of hyperbaric oxygen therapy. Tolerance of hyperbaric oxygen therapy: Hyperbaric oxygen therapy was administered as per the facility's protocol. The patient tolerated hyperbaric oxygen therapy well, without complaints or complications. Upon emergence from the hyperbaric chamber, the patient's vital signs remained stable. He was discharged in good condition. 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) Other chronic osteomyelitis,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 (Chronic) Ulcer of right foot with fat layer exposed (Chronic) previously unstageable pressure ulcer Paralysis (Chronic) Other specified peripheral vascular diseases (Chronic) Unstageable pressure ulcer of left foot (Chronic) Unstageable pressure ulcer of right foot (Chronic) Ulcer of left lower extremity with fat layer exposed (Chronic) previously unstageable pressure ulcer Malnutrition (Chronic) Delayed wound healing (Chronic) Edema leg (Chronic) Paralysis (Chronic) Ulcer of right lower extremity with fat layer exposed (Chronic) previously unstageable pressure ulcer Osteomyelitis (Chronic) Chronic pain (Chronic) Nocardia infection (Chronic) 2004, right arm and left leg, 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 Allergies/Adverse Reactions: Allergies Cephalosporins Allergy (Intermediate, Verified 11/06/18 08:58) Laryngospasms Penicillins Allergy (Intermediate, Verified 11/06/18 08:58) Rash IVP DYE Allergy (Uncoded 11/06/18 08:58) Rash Home Medications: Ambulatory Orders Medication Instructions Recorded Losartan Potassium [Cozaar] 12.5 mg PO DAILY 01/12/16 Riboflavin (Vitamin B2) [Vitamin 300 mg PO DAILY@1700 11/10/16 B2] Ascorbic Acid [Vitamin C] 500 mg PO TID 07/05/18 Gabapentin [Neurontin] 600 mg PO TID 07/05/18 [place] Carbonate 150 mg PO TID 07/05/18 Furosemide [Lasix] 40 mg PO DAILY 08/11/18 Magnesium 500 mg PO BID 08/11/18 Sennosides/Docusate Sodium 2 each PO DAILY 08/11/18 [Senna-S Laxative Tablet] traZODone [Desyrel] 25 mg PO QHS 08/11/18 Collagenase [Santyl] 1 applic TOPICAL DAILY tube 08/14/18 Mineral Oil/Petrolatum,White 1 applic TOPICAL BID jar 08/14/18 [Eucerin] Atorvastatin Calcium [Lipitor] 40 mg PO QHS 11/06/18 Carvedilol [Coreg (Beta Krissy)] 3.125 mg PO BID 11/06/18 Clopidogrel Bisulfate [Plavix] 75 mg PO DAILY 11/06/18 Cyclobenzaprine [Flexeril] 2.5 mg PO QHS PRN 11/06/18 Duloxetine Hcl [Cymbalta] 60 mg PO DAILY 11/06/18 Isosorbide Mononitrate 10 mg PO QHS 11/06/18 Morphine Sulfate [Morphine Sulfate 15 mg PO BID 11/06/18 ER] Multivitamins,Ther W-Minerals 1 tablet PO DAILY 11/06/18 [Multivitamin With Minerals] Nutritional Supplement [Fred - 1 packet PO BIDCM 11/06/18 [place] FLAVOR] Pyridoxine HCl [Vitamin B-6] 100 mg PO DAILY 11/06/18 Smz/Tmp Ds [Bactrim Ds] 1 tablet PO DAILY 11/06/18 Tamsulosin HCl [Flomax] 0.4 mg PO 1700 11/06/18 Maternal Family History: - - , depression Paternal Family History: - - Offspring Family History: - - 2 children, 4 grand children, 1 great grandchild, all in good health Lives: Spouse/ Significant Other Smoking Status: Never smoker Tobacco Use: Non-smoker Physical Exam Vital Signs Temp Pulse Resp BP 97.6 F L 74 18 135/67 H 01/22/19 11:45 01/22/19 11:45 01/22/19 11:45 01/22/19 11:45 General: Alert, Oriented x3, Cooperative, No apparent distress, Well developed, Well nourished HEENT: Atraumatic, PERRLA, EOMI, Normocephalic Lungs: Normal air movement Psych/Mental Status: Normal Affect, Appropriate, Alert and oriented to time, place, person, mood and affect Assessment/Plan Active Problems (Last Reviewed 08/13/18 @ 10:19 by Fernando Patterson MD) Ulcer of right lower extremity with fat layer exposed (Chronic) Chronic osteomyelitis involving left ankle and foot (Acute) Ulcer of right lower extremity with necrosis of muscle (Chronic) Other chronic osteomyelitis,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 (Chronic) Paralysis (Chronic) Malnutrition (Chronic) Delayed wound healing (Chronic) Ulcer of right lower extremity with fat layer exposed (Chronic) previously unstageable pressure ulcer The patient appears to be tolerating hyperbaric oxygen therapy well, which will be continued as per the patient's medical plan.
[2019-01-23 11:50] VITALS: BP 141/67; PULSE 63; RESP 18; TEMP 36.6; BMI 24.3
[2019-01-23 13:03] VITALS: BP 129/56; BP 137/75; PULSE 67; RESP 16; RESP 18; TEMP 36.4; TEMP 36.5
--- NOTE | 2019-01-23 13:08 | PN.PCM_ITS ---
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 (2) Other chronic osteomyelitis,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 Status: Resolved Current Visit: Yes Code(s): M86.671 - Other chronic osteomyelitis,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 (3) Paralysis Status: Chronic Current Visit: Yes Code(s): G83.9 - Paralytic syndrome, unspecified (4) Malnutrition Status: Chronic Current Visit: Yes Code(s): E46 - Unspecified protein- calorie malnutrition (5) Delayed wound healing Status: Chronic Current Visit: Yes Code(s): T14.8XXD - Other injury of unspecified body region, subsequent encounter Type of Wound Date of Service: 01/23/19 Chief Complaint: 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 Right leg ulcer. left leg ulcer healed. right ankle ulcer healed. Ulcer right heel healed. Paraplegia History of Wound: This 83-year-old male with multiple comorbidities was seen at the wound healing center for 1 remaining ulcer to the right lateral leg. He previously had versa jet debridement in the operating room with application of advanced wound care products including amniofill and epicord. He also previously completed a vascular surgery evaluation with Dr. De Anda and an Angio without any identifiable intervention noted. He denies fever, chill, nausea, v omiting. He is a paraplegic and presents in a wheelchair. He continues to take Fred supplementation. He uses bilateral donut offloading pillows and this helps keep pressure off the sites. He continues hyperbaric oxygen therapy and his 3 sessions remaining. He is with his today. Progress of Wound: Improving right leg ulcer. other ulcers remain healed - Physical Exam Vital Signs Temp Pulse Resp BP 97.6 F L 67 18 129/56 H 01/23/19 13:03 01/23/19 13:03 01/23/19 13:03 01/23/19 13:03 General: Alert, Oriented x3, Cooperative Extremities: No cyanosis, Capillary Refill Less than 3 Seconds, No Calf Tenderness, Diminished Peripheral Pulses, Edema - Decreased bilateral lower extremities, - - Paralysis bilateral lower extremities Skin: Ulcer/ Wound - No purulence, erythema, streaking, odor, or infection bilateral. Skin is hairless and atrophic. Wound Measurements and Assessment - Nurse 1 - General Ulcer Measurement Start: 01/01/19 13:48 Freq: Status: Active Protocol: Activity Type Activity Date Activity User E-Sign Co-Sign Detail Recorded Client Recorded Date Recorded By Document 01/23/19 11:50 [id number] 01/23/19 12:02 01/23/19 11:50 Wound Center Nurse 1 [Ulcer Assessment] #7 Lateral RLE -Classification - Thickness Full Thickness without Exposed Support Structure -Exudate Amt Medium -Exudate Type Serosanguineous -Wound Margin Distinct, Outline Attached -Granulation Amt Medium (34-66%) -Granulation Quality Red -Slough/Fibrin Yes -Necrosis Amt Medium (34-66%) -Necrotic Tissue Type Eschar -Structure Exposed None/Limited to Skin Breakdown -Texture (Denisse-wound Skin Appearance) Assessed Scarring -Moisture (Denisse-wound Skin Appearance Assessed ) Dry/Scaly -Color (Denisse-wound Skin Appearance) Assessed Erythema -Temperature (Denisse-wound Skin No Abnormality Appearance) (Pt Warm) -Tenderness on Palpation (Denisse-wound Yes Skin Appearance) -Ulcer Cleansing Rinsed/ Irrigated with Saline -Foul Odor after Cleansing No -Anesthetic Used 5% Lidocaine Gel - Nurse 2 - General Ulcer CM Notes Start: 01/01/19 13:48 Freq: Status: Active Protocol: Activity Type Activity Date Activity User E-Sign Co-Sign Detail Recorded Client Recorded Date Recorded By Document 01/23/19 12:07 [id number] 01/23/19 12:14 01/23/19 12:07 Wound Center Nurse 2 [Procedure/Treatment] -Time 12:13 -Correct Patient Yes -Correct Side, Site, Position Yes -Correct Procedure Yes -Procedure Performed Yes -Type of Procedure Debridement -Clinical Debridement Subcutaneous -Post Debridement Size (cm) - Length 1.1 -Post Debridement Size (cm) - Width 1.0 -Post Debridement Size (cm) - Depth 0.3 -Total Square Cm 1.10 -Wound/Ulcer Outcome Not Healed -Ulcer Cleansing Rinsed/ Irrigated with Saline -Foul Odor after Cleansing No -Bioengineered Tissue Yes -Type of bioengineered Tissue EPIFIX -Expiration Date 06/27/23 -Product Lot Number [id number] -Percent Used 100 -Saline Lot Number [id number] -Bleeding Controlled with Pressure -Offloading No -Treatment Response Procedure Tolerated Well [See Physician Procedure note for Specifics] Pain Scale: 0-10 Numeric [Pain] -Is Patient Pain Free? Yes Musculoskeletal: No Tenderness to Palpation of Joints or Extremities, Muscle Wasting, - - Compartments soft to palpate bilateral lower extremities Neurological: - - Lack of normal epicritic sensation to light touch bilateral lower extremities Psych/Mental Status: Normal Affect, Appropriate Debridement Note Post-Debridement Measurements/Treatment WC - Nurse 2 - General Ulcer CM Notes Start: 01/01/19 13:48 Freq: Status: Active Protocol: Activity Type Activity Date Activity User E-Sign Co-Sign Detail Recorded Client Recorded Date Recorded By Document 01/02/19 11:48 [id number] 01/02/19 11:52 Document 01/09/19 11:50 [id number] 01/09/19 11:53 Document 01/16/19 12:31 [id number] 01/16/19 12:41 Document 01/23/19 12:07 [id number] 01/23/19 12:14 01/02/19 01/09/19 01/16/19 11:48 11:50 12:31 Wound Center Nurse 2 #7 Lateral RLE -Time 11:49 11:50 12:31 -Correct Patient Yes Yes Yes -Correct Side, Site, Position Yes Yes Yes -Correct Procedure Yes Yes Yes -Procedure Performed Yes Yes Yes -Type of Procedure Debridement Debridement Debridement -Clinical Debridement Subcutaneous Subcutaneous Subcutaneous -Post Debridement Size (cm) - Length 1.3 2 1.7 -Post Debridement Size (cm) - Width 1.7 2 1.2 -Post Debridement Size (cm) - Depth 0.3 0.4 0.2 -Total Square Cm 2.21 4 2.04 -Wound/Ulcer Outcome Not Healed Not Healed Not Healed -Ulcer Cleansing Rinsed/ Rinsed/ Rinsed/ Irrigated with Irrigated with Irrigated with Saline Saline Saline -Foul Odor after Cleansing No No No -Bioengineered Tissue Yes Yes Yes -Type of bioengineered Tissue EPIFIX EPIFIX EPIFIX -Expiration Date 06/27/23 06/27/23 06/27/23 -Product Lot Number [id number] -Percent Used 100 100 100 -Saline Lot Number [id number] -Bleeding Controlled with Pressure Pressure Pressure -Offloading Yes No No -Type of Offloading Surgical Shoe -Treatment Response Procedure Procedure Procedure Tolerated Well Tolerated Well Tolerated Well #5 Posterior LLE -Time 11:49 -Correct Patient Yes No No -Correct Side, Site, Position Yes No No -Correct Procedure Yes No No -Procedure Performed Yes No No -Type of Procedure Debridement -Clinical Debridement Subcutaneous -Post Debridement Size (cm) - Length 0.3 0 -Post Debridement Size (cm) - Width 0.3 0 -Post Debridement Size (cm) - Depth 0.1 0 -Total Square Cm 0.09 0 -Wound/Ulcer Outcome Not Healed Not Healed Healed- Epithelialized -Ulcer Cleansing Rinsed/ Rinsed/ Irrigated with Irrigated with Saline Saline -Foul Odor after Cleansing No No -Bioengineered Tissue No No -Bleeding Controlled with Pressure Pressure -Offloading Yes No -Type of Offloading Surgical Shoe -Treatment Response Procedure Procedure Tolerated Well Tolerated Well #3 Right Heel -Time 11:50 11:51 12:33 -Correct Patient Yes Yes Yes -Correct Side, Site, Position Yes Yes Yes -Correct Procedure Yes Yes Yes -Procedure Performed Yes Yes Yes -Type of Procedure Debridement Debridement Debridement -Clinical Debridement Subcutaneous Subcutaneous Subcutaneous -Post Debridement Size (cm) - Length 1.8 2.5 0 -Post Debridement Size (cm) - Width 4 4.6 0 -Post Debridement Size (cm) - Depth 0.1 0.1 0 -Total Square Cm 7.2 11.50 0 -Wound/Ulcer Outcome Not Healed Not Healed Healed- Epithelialized -Ulcer Cleansing Rinsed/ Rinsed/ Rinsed/ Irrigated with Irrigated with Irrigated with Saline Saline Saline -Foul Odor after Cleansing No No No -Bioengineered Tissue Yes Yes Yes -Type of bioengineered Tissue EPIFIX EPIFIX -Expiration Date 06/27/23 06/27/23 -Product Lot Number [id number] -Percent Used 100 100 -Saline Lot Number [id number] -Bleeding Controlled with Pressure Pressure Pressure -Offloading Yes No No -Type of Offloading Surgical Shoe -Treatment Response Procedure Procedure Procedure Tolerated Well Tolerated Well Tolerated Well #2 Right Lateral Ankle -Time 11:50 11:52 12:33 -Correct Patient Yes Yes No -Correct Side, Site, Position Yes Yes No -Correct Procedure Yes Yes No -Procedure Performed Yes Yes No -Type of Procedure Debridement Debridement -Clinical Debridement Subcutaneous Subcutaneous -Post Debridement Size (cm) - Length 1.5 1 0 -Post Debridement Size (cm) - Width 1.1 1.5 0 -Post Debridement Size (cm) - Depth 0.1 0.1 0 -Total Square Cm 1.65 1.5 0 -Wound/Ulcer Outcome Not Healed Not Healed Healed- Epithelialized -Ulcer Cleansing Rinsed/ Rinsed/ Irrigated with Irrigated with Saline Saline -Foul Odor after Cleansing No No -Bioengineered Tissue Yes Yes -Type of bioengineered Tissue EPIFIX EPIFIX -Expiration Date 06/27/23 06/27/23 -Product Lot Number [id number] -Percent Used 100 100 -Saline Lot Number [id number] -Bleeding Controlled with Pressure Pressure Pressure -Offloading Yes No No -Type of Offloading Surgical Shoe -Treatment Response Procedure Procedure Procedure Tolerated Well Tolerated Well Tolerated Well Pain Scale: 0-10 Numeric Is Patient Pain Free? Yes Yes Yes 01/23/19 12:07 Wound Center Nurse 2 #7 Lateral RLE -Time 12:13 -Correct Patient Yes -Correct Side, Site, Position Yes -Correct Procedure Yes -Procedure Performed Yes -Type of Procedure Debridement -Clinical Debridement Subcutaneous -Post Debridement Size (cm) - Length 1.1 -Post Debridement Size (cm) - Width 1.0 -Post Debridement Size (cm) - Depth 0.3 -Total Square Cm 1.10 -Wound/Ulcer Outcome Not Healed -Ulcer Cleansing Rinsed/ Irrigated with Saline -Foul Odor after Cleansing No -Bioengineered Tissue Yes -Type of bioengineered Tissue EPIFIX -Expiration Date 06/27/23 -Product Lot Number [id number] -Percent Used 100 -Saline Lot Number [id number] -Bleeding Controlled with Pressure -Offloading No -Type of Offloading -Treatment Response Procedure Tolerated Well #5 Posterior LLE -Time -Correct Patient -Correct Side, Site, Position -Correct Procedure -Procedure Performed -Type of Procedure -Clinical Debridement -Post Debridement Size (cm) - Length -Post Debridement Size (cm) - Width -Post Debridement Size (cm) - Depth -Total Square Cm -Wound/Ulcer Outcome -Ulcer Cleansing -Foul Odor after Cleansing -Bioengineered Tissue -Bleeding Controlled with -Offloading -Type of Offloading -Treatment Response #3 Right Heel -Time -Correct Patient -Correct Side, Site, Position -Correct Procedure -Procedure Performed -Type of Procedure -Clinical Debridement -Post Debridement Size (cm) - Length -Post Debridement Size (cm) - Width -Post Debridement Size (cm) - Depth -Total Square Cm -Wound/Ulcer Outcome -Ulcer Cleansing -Foul Odor after Cleansing -Bioengineered Tissue -Type of bioengineered Tissue -Expiration Date -Product Lot Number -Percent Used -Saline Lot Number -Bleeding Controlled with -Offloading -Type of Offloading -Treatment Response #2 Right Lateral Ankle -Time -Correct Patient -Correct Side, Site, Position -Correct Procedure -Procedure Performed -Type of Procedure -Clinical Debridement -Post Debridement Size (cm) - Length -Post Debridement Size (cm) - Width -Post Debridement Size (cm) - Depth -Total Square Cm -Wound/Ulcer Outcome -Ulcer Cleansing -Foul Odor after Cleansing -Bioengineered Tissue -Type of bioengineered Tissue -Expiration Date -Product Lot Number -Percent Used -Saline Lot Number -Bleeding Controlled with -Offloading -Type of Offloading -Treatment Response Pain Scale: 0-10 Numeric Is Patient Pain Free? Yes Wound debrided: lateral leg Laterality: Right Type of Debridement: Excisional debridement Anesthesia Used: 5% Lidocaine Gel Depth: in the subcutaneous layer Percentage of wound debrided: 100 Instrument Used: #15 blade Tissue Removed: fibrous, devitalized subcutaneous, biofilm, slough Severity: Fat Layer Exposed Amount of bleeding with debridement: Mild Bleeding Controlled with: Pressure Patient tolerated procedure well Assessment/Plan Active Problems (Last Reviewed 08/13/18 @ 10:19 by Fernando Patterson MD) Ulcer of right lower extremity with fat layer exposed (Chronic) Chronic osteomyelitis involving left ankle and foot (Acute) Ulcer of right lower extremity with necrosis of muscle (Chronic) Paralysis (Chronic) Malnutrition (Chronic) Delayed wound healing (Chronic) Ulcer of right lower extremity with fat layer exposed (Chronic) previously unstageable pressure ulcer Assessment: Right lateral ankle ulcer healed. Right lateral leg ulcer, fat layer exposed. refractory osteomyelitis calcaneus, right. Right heel ulcer healed. Left leg ulcer healed. Peripheral vascular disease with rest pain. Other comorbidities. Delayed healing. Malnutrition. Paralysis and gait impairment with wheelchair use Plan: I reviewed and discussed his case today. The advance wound care product remains intact. Debridement and a subcutaneous excisional manner was performed to right lateral leg. Advanced wound care product, epi fix was applied to the right leg. This was secured in place with a wound veil, hydrogel, and Steri- Strips. Verbal consent was obtained prior to applying this. He tolerated this well. He was advised to keep this dressing clean, dry, and intact until follow-up next week. This is medically necessary to optimize healing. Today, a secondary dressing was applied with additional Tubigrip for continued edema management. No other dressings required due to healing. To monitor the recenlty healed sites due to fragility. Home health is on hold this week. This will be monitored very closely and there does not appear to be an infection. He had re cent noninvasive vascular studies performed which demonstrated noncompressible vessels in which ankle-brachial indices were not calculated. This is consistent with rest pain as well as multisegmental occlusive disease and vessel calcification. He did go for consultation with Dr. De Anda previously who formed an angioplasty to her in which intervention options were not identified. It is noted he does have perfusion opportunities available to the lower extremity on the right side. His labs were updated previously and discussed in his white blood cell count is 6.0, sedimentation rate 14, and hemoglobin A1c 5.8%. His updated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 x-rays do not demonstrate osseous destruction, periosteal reaction, soft tissue emphysema, acute fracture dislocation, or foreign body. Vessel calcification is seen on plain x-ray consistent with vessel disease. It is noted he completed a 6-week course of IV antibiotics and infectious disease has also been following him closely. He had a previous MRI which demonstrated mild marrow edema to the left calcaneus and lateral ankle consistent with osteomyelitis; the adjacent ulcer site have healed. He also had previous MRI which demonstrated these same findings to right calcaneus with adjacent ongoing delayed healing ulcer; this is the area of concern for refractory osteomyelitis at this time. Due to delayed healing, pain, and continued deep tissue exposure this is consistent with chronic osteomyelitis. I recommend hyperbaric oxygen therapy to optimize healing; this is medically necessary to optimize healing. It is noted his ejection fraction is 65%. To proceed with hyperbaric oxygen treatments as scheduled; he is doing well and has 3 additional sessions scheduled. I answered all his questions. To continue with nutritional supplementation, Fred. To return to clinic in 1 week for physician reevaluation or call sooner if he has any questions or concerns.
--- NOTE | 2019-01-23 14:27 | HBO.PN.PCM_ITS ---
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 left leg ulcer. right ankle. Ulcer right heel. 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 Progress: The patient appears to be tolerating hyperbaric oxygen therapy well. Today's a session represents the 41st such session of hyperbaric oxygen therapy. Tolerance of hyperbaric oxygen therapy: Hyperbaric oxygen therapy was administered as per the facility's protocol. The patient tolerated hyperbaric oxygen therapy well, without complaints or complications. Upon emergence from the hyperbaric chamber, the patient's vital signs remained stable. He was discharged in good condition. 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) Ulcer of right foot with fat layer exposed (Chronic) previously unstageable pressure ulcer Paralysis (Chronic) Other specified peripheral vascular diseases (Chronic) Unstageable pressure ulcer of left foot (Chronic) Unstageable pressure ulcer of right foot (Chronic) Ulcer of left lower extremity with fat layer exposed (Chronic) previously unstageable pressure ulcer Malnutrition (Chronic) Delayed wound healing (Chronic) Edema leg (Chronic) Paralysis (Chronic) Ulcer of right lower extremity with fat layer exposed (Chronic) previously unstageable pressure ulcer Osteomyelitis (Chronic) Chronic pain (Chronic) Nocardia infection (Chronic) 2004, right arm and left leg, 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 Allergies/Adverse Reactions: Allergies Cephalosporins Allergy (Intermediate, Verified 11/06/18 08:58) Laryngospasms Penicillins Allergy (Intermediate, Verified 11/06/18 08:58) Rash IVP DYE Allergy (Uncoded 11/06/18 08:58) Rash Home Medications: Ambulatory Orders Medication Instructions Recorded Losartan Potassium [Cozaar] 12.5 mg PO DAILY 01/12/16 Riboflavin (Vitamin B2) [Vitamin 300 mg PO DAILY@1700 11/10/16 B2] Ascorbic Acid [Vitamin C] 500 mg PO TID 07/05/18 Gabapentin [Neurontin] 600 mg PO TID 07/05/18 [place] Carbonate 150 mg PO TID 07/05/18 Furosemide [Lasix] 40 mg PO DAILY 08/11/18 Magnesium 500 mg PO BID 08/11/18 Sennosides/Docusate Sodium 2 each PO DAILY 08/11/18 [Senna-S Laxative Tablet] traZODone [Desyrel] 25 mg PO QHS 08/11/18 Collagenase [Santyl] 1 applic TOPICAL DAILY tube 08/14/18 Mineral Oil/Petrolatum,White 1 applic TOPICAL BID jar 08/14/18 [Eucerin] Atorvastatin Calcium [Lipitor] 40 mg PO QHS 11/06/18 Carvedilol [Coreg (Beta Krissy)] 3.125 mg PO BID 11/06/18 Clopidogrel Bisulfate [Plavix] 75 mg PO DAILY 11/06/18 Cyclobenzaprine [Flexeril] 2.5 mg PO QHS PRN 11/06/18 Duloxetine Hcl [Cymbalta] 60 mg PO DAILY 11/06/18 Isosorbide Mononitrate 10 mg PO QHS 11/06/18 Morphine Sulfate [Morphine Sulfate 15 mg PO BID 11/06/18 ER] Multivitamins,Ther W-Minerals 1 tablet PO DAILY 11/06/18 [Multivitamin With Minerals] Nutritional Supplement [Fred - 1 packet PO BIDCM 11/06/18 [place] FLAVOR] Pyridoxine HCl [Vitamin B-6] 100 mg PO DAILY 11/06/18 Smz/Tmp Ds [Bactrim Ds] 1 tablet PO DAILY 11/06/18 Tamsulosin HCl [Flomax] 0.4 mg PO 1700 11/06/18 Maternal Family History: - - , depression Paternal Family History: - - Offspring Family History: - - 2 children, 4 grand children, 1 great grandchild, all in good health Lives: Spouse/ Significant Other Smoking Status: Never smoker Tobacco Use: Non-smoker Physical Exam Vital Signs Temp Pulse Resp BP 97.6 F L 67 18 129/56 H 01/23/19 13:03 01/23/19 13:03 01/23/19 13:03 01/23/19 13:03 General: Alert, Oriented x3, Cooperative HEENT: Atraumatic, TM's Clear Lungs: Clear to auscultation, Normal air movement Cardiovascular: Regular rate, Regular Rhythm, Murmur Psych/Mental Status: Normal Affect, Appropriate, Alert and oriented to time, place, person, mood and affect Assessment/Plan Active Problems (Last Reviewed 08/13/18 @ 10:19 by Fernando Patterson MD) Ulcer of right lower extremity with fat layer exposed (Chronic) Chronic osteomyelitis involving left ankle and foot (Acute) Ulcer of right lower extremity with necrosis of muscle (Chronic) Paralysis (Chronic) Malnutrition (Chronic) Delayed wound healing (Chronic) Ulcer of right lower extremity with fat layer exposed (Chronic) previously unstageable pressure ulcer The patient appears to be tolerating hyperbaric oxygen therapy well, which will be continued as per the patient's medical plan.
[2019-01-24 13:40] VITALS: BP 115/68; BP 143/66; PULSE 62; PULSE 78; RESP 16; RESP 18; TEMP 36.6; TEMP 36.9
--- NOTE | 2019-01-24 17:11 | HBO.PN.PCM_ITS ---
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 Right leg ulcer. left leg ulcer healed. right ankle ulcer healed. Ulcer right heel healed. 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 Progress: The patient appears to be tolerating hyperbaric oxygen therapy well. Today's a session represents the 42nd such session of hyperbaric oxygen therapy. Tolerance of hyperbaric oxygen therapy: Hyperbaric oxygen therapy was administered as per the facility's protocol. The patient tolerated hyperbaric oxygen therapy well, without complaints or complications. Upon emergence from the hyperbaric chamber, the patient's vital signs remained stable. He was discharged in good condition. 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) Ulcer of right foot with fat layer exposed (Chronic) previously unstageable pressure ulcer Paralysis (Chronic) Other specified peripheral vascular diseases (Chronic) Unstageable pressure ulcer of left foot (Chronic) Unstageable pressure ulcer of right foot (Chronic) Ulcer of left lower extremity with fat layer exposed (Chronic) previously unstageable pressure ulcer Malnutrition (Chronic) Delayed wound healing (Chronic) Edema leg (Chronic) Paralysis (Chronic) Ulcer of right lower extremity with fat layer exposed (Chronic) previously unstageable pressure ulcer Osteomyelitis (Chronic) Chronic pain (Chronic) Nocardia infection (Chronic) 2004, right arm and left leg, 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 Allergies/Adverse Reactions: Allergies Cephalosporins Allergy (Intermediate, Verified 11/06/18 08:58) Laryngospasms Penicillins Allergy (Intermediate, Verified 11/06/18 08:58) Rash IVP DYE Allergy (Uncoded 11/06/18 08:58) Rash Home Medications: Ambulatory Orders Medication Instructions Recorded Losartan Potassium [Cozaar] 12.5 mg PO DAILY 01/12/16 Riboflavin (Vitamin B2) [Vitamin 300 mg PO DAILY@1700 11/10/16 B2] Ascorbic Acid [Vitamin C] 500 mg PO TID 07/05/18 Gabapentin [Neurontin] 600 mg PO TID 07/05/18 [place] Carbonate 150 mg PO TID 07/05/18 Furosemide [Lasix] 40 mg PO DAILY 08/11/18 Magnesium 500 mg PO BID 08/11/18 Sennosides/Docusate Sodium 2 each PO DAILY 08/11/18 [Senna-S Laxative Tablet] traZODone [Desyrel] 25 mg PO QHS 08/11/18 Collagenase [Santyl] 1 applic TOPICAL DAILY tube 08/14/18 Mineral Oil/Petrolatum,White 1 applic TOPICAL BID jar 08/14/18 [Eucerin] Atorvastatin Calcium [Lipitor] 40 mg PO QHS 11/06/18 Carvedilol [Coreg (Beta Krissy)] 3.125 mg PO BID 11/06/18 Clopidogrel Bisulfate [Plavix] 75 mg PO DAILY 11/06/18 Cyclobenzaprine [Flexeril] 2.5 mg PO QHS PRN 11/06/18 Duloxetine Hcl [Cymbalta] 60 mg PO DAILY 11/06/18 Isosorbide Mononitrate 10 mg PO QHS 11/06/18 Morphine Sulfate [Morphine Sulfate 15 mg PO BID 11/06/18 ER] Multivitamins,Ther W-Minerals 1 tablet PO DAILY 11/06/18 [Multivitamin With Minerals] Nutritional Supplement [Fred - 1 packet PO BIDCM 11/06/18 [place]LA[place]OR] Pyridoxine HCl [Vitamin B-6] 100 mg PO DAILY 11/06/18 Smz/Tmp Ds [Bactrim Ds] 1 tablet PO DAILY 11/06/18 Tamsulosin HCl [Flomax] 0.4 mg PO 1700 11/06/18 Maternal Family History: - - , depression Paternal Family History: - - Offspring Family History: - - 2 children, 4 grand children, 1 great grandchild, all in good health Lives: Spouse/ Significant Other Smoking Status: Never smoker Tobacco Use: Non-smoker Physical Exam Vital Signs Temp Pulse Resp BP 98.5 F 78 18 115/68 01/24/19 13:40 01/24/19 13:40 01/24/19 13:40 01/24/19 13:40 General: Alert, Oriented x3, Cooperative, No apparent distress HEENT: Atraumatic, PERRLA, Normocephalic, TM's Clear, - - Bilateral myringotomy tubes in place Lungs: Clear to auscultation, Normal air movement, No rhonchi, No wheeze, No rales Cardiovascular: Regular rate, Regular Rhythm, Normal S1, Normal S2, No murmurs Psych/Mental Status: Normal Affect, Appropriate, Alert and oriented to time, place, person, mood and affect Assessment/Plan Active Problems (Last Reviewed 08/13/18 @ 10:19 by Fernando Patterson MD) Ulcer of right lower extremity with fat layer exposed (Chronic) Chronic osteomyelitis involving left ankle and foot (Acute) Ulcer of right lower extremity with necrosis of muscle (Chronic) Paralysis (Chronic) Malnutrition (Chronic) Delayed wound healing (Chronic) Ulcer of right lower extremity with fat layer exposed (Chronic) previously unstageable pressure ulcer The patient appears to be tolerating hyperbaric oxygen therapy well, which will be continued as per the patient's medical plan.
--- NOTE | 2019-01-25 10:19 | PCM.HBO.PN ---
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 Right leg ulcer. left leg ulcer healed. right ankle ulcer healed. Ulcer right heel healed. 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 Progress: The patient appears to be tolerating hyperbaric oxygen therapy well. Today's a session represents the 42nd such session of hyperbaric oxygen therapy. Tolerance of hyperbaric oxygen therapy: Hyperbaric oxygen therapy was administered as per the facility's protocol. The patient tolerated hyperbaric oxygen therapy well, without complaints or complications. Upon emergence from the hyperbaric chamber, the patient's vital signs remained stable. He was discharged in good condition. 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) Ulcer of right foot with fat layer exposed (Chronic) previously unstageable pressure ulcer Paralysis (Chronic) Other specified peripheral vascular diseases (Chronic) Unstageable pressure ulcer of left foot (Chronic) Unstageable pressure ulcer of right foot (Chronic) Ulcer of left lower extremity with fat layer exposed (Chronic) previously unstageable pressure ulcer Malnutrition (Chronic) Delayed wound healing (Chronic) Edema leg (Chronic) Paralysis (Chronic) Ulcer of right lower extremity with fat layer exposed (Chronic) previously unstageable pressure ulcer Osteomyelitis (Chronic) Chronic pain (Chronic) Nocardia infection (Chronic) 2004, right arm and left leg, 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 Allergies/Adverse Reactions: Allergies Cephalosporins Allergy (Intermediate, Verified 11/06/18 08:58) Laryngospasms Penicillins Allergy (Intermediate, Verified 11/06/18 08:58) Rash IVP DYE Allergy (Uncoded 11/06/18 08:58) Rash Home Medications: Ambulatory Orders Medication Instructions Recorded Losartan Potassium [Cozaar] 12.5 mg PO DAILY 01/12/16 Riboflavin (Vitamin B2) [Vitamin 300 mg PO DAILY@1700 11/10/16 B2] Ascorbic Acid [Vitamin C] 500 mg PO TID 07/05/18 Gabapentin [Neurontin] 600 mg PO TID 07/05/[address] [place] Carbonate 150 mg PO TID 07/05/18 Furosemide [Lasix] 40 mg PO DAILY 08/11/18 Magnesium 500 mg PO BID 08/11/18 Sennosides/Docusate Sodium 2 each PO DAILY 08/11/18 [Senna-S Laxative Tablet] traZODone [Desyrel] 25 mg PO QHS 08/11/18 Collagenase [Santyl] 1 applic TOPICAL DAILY tube 08/14/18 Mineral Oil/Petrolatum,White 1 applic TOPICAL BID jar 08/14/18 [Eucerin] Atorvastatin Calcium [Lipitor] 40 mg PO QHS 11/06/18 Carvedilol [Coreg (Beta Krissy)] 3.125 mg PO BID 11/06/18 Clopidogrel Bisulfate [Plavix] 75 mg PO DAILY 11/06/18 Cyclobenzaprine [Flexeril] 2.5 mg PO QHS PRN 11/06/18 Duloxetine Hcl [Cymbalta] 60 mg PO DAILY 11/06/18 Isosorbide Mononitrate 10 mg PO QHS 11/06/18 Morphine Sulfate [Morphine Sulfate 15 mg PO BID 11/06/18 ER] Multivitamins,Ther W-Minerals 1 tablet PO DAILY 11/06/18 [Multivitamin With Minerals] Nutritional Supplement [Fred - 1 packet PO BIDCM 11/06/18 [place]] Pyridoxine HCl [Vitamin B-6] 100 mg PO DAILY 11/06/18 Smz/Tmp Ds [Bactrim Ds] 1 tablet PO DAILY 11/06/18 Tamsulosin HCl [Flomax] 0.4 mg PO 1700 11/06/18 Maternal Family History: - - , depression Paternal Family History: - - Offspring Family History: - - 2 children, 4 grand children, 1 great grandchild, all in good health Lives: Spouse/ Significant Other Smoking Status: Never smoker Tobacco Use: Non-smoker Physical Exam Vital Signs Temp Pulse Resp BP 98.5 F 78 18 115/68 01/24/19 13:40 01/24/19 13:40 01/24/19 13:40 01/24/19 13:40 Assessment/Plan The patient appears to be tolerating hyperbaric oxygen therapy well, which will be continued as per the patient's medical plan.
== END 2019-01-24 23:59 ==
LOC: WC 13:00
PROVIDERS: Family Provider Family Medicine; PCP Family Medicine; Referring Provider Podiatrist; Visit Provider Podiatrist
DX: M86.671 Other chronic osteomyelitis,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 (principal); L97.412 Non-pressure chronic ulcer of right heel and midfoot with fat layer exposed; L97.812 Non-pressure chronic ulcer of other part of right lower leg with fat layer exposed; L97.822 Non-pressure chronic ulcer of other part of left lower leg with fat layer exposed; I73.9 Peripheral vascular disease, unspecified; L97.312 Non-pressure chronic ulcer of right ankle with fat layer exposed; R60.0 Localized edema; G82.20 Paraplegia, unspecified; M86.672 Other chronic osteomyelitis, left ankle and foot; I10 Essential (primary) hypertension
CPT/HCPCS: 15271; 15275; 99183; 99212; Q4186; G0277; G0463

== ENCOUNTER 2019-02-20 11:15 | Outpatient (RCR) | payer MEDICARE, OTHER, SELFPAY ==
[2019-01-23 11:50] VITALS: BMI 24.3
[2019-01-25 00:59] VITALS: BP 143/66; PULSE 62; RESP 16; TEMP 36.6
[2019-01-25 09:47] VITALS: BP 112/63; BP 133/64; PULSE 69; PULSE 87; RESP 16; RESP 18; TEMP 36.4; TEMP 36.7
[2019-01-30 12:04] VITALS: BP 146/83; PULSE 68; RESP 18; TEMP 36.5; BMI 24.3
--- NOTE | 2019-01-30 16:41 | PN.PCM_ITS ---
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 (2) Paralysis Status: Chronic Current Visit: No Code(s): G83.9 - Paralytic syndrome, unspecified (3) Malnutrition Status: Chronic Current Visit: No Code(s): E46 - Unspecified protein-calorie malnutrition (4) Delayed wound healing Status: Chronic Current Visit: No Code(s): T14.8XXD - Other injury of unspecified body region, subsequent encounter Type of Wound Date of Service: 01/30/19 Chief Complaint: 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 Right leg ulcer. left leg ulcer healed. right ankle ulcer healed. Ulcer right heel healed. Paraplegia History of Wound: This 83-year-old male with multiple comorbidities was seen at the wound healing center for 1 remaining ulcer to the right lateral leg. He had previously completed a vascular surgery evaluation with Dr. De Anda and an Angio without any identifiable intervention noted. He denies fever, chill, nausea, vomiting. He is a paraplegic and presents in a wheelchair. He continues to take Fred supplementation. He uses bilateral donut offloading pillows and this helps keep pressure off the sites. He completed hyperbaric oxygen therapy. He is with his today. Progress of Wound: Improving right leg ulcer - Physical Exam Vital Signs Temp Pulse Resp BP 97.7 F L 68 18 146/83 H 01/30/19 12:04 01/30/19 12:04 01/30/19 12:04 01/30/19 12:04 General: Alert, Oriented x3, Cooperative Extremities: No cyanosis, Capillary Refill Less than 3 Seconds, No Calf Tenderness, Diminished Peripheral Pulses, Edema - Mild bilateral, - - Paralysis bilateral lower extremities Skin: Ulcer/ Wound - No purulence, erythema, streaking, odor, or infection. Decreased depth noted to right lateral leg. The peripheral skin is hairless and atrophic. Wound Measurements and Assessment WC - Nurse 1 - General Ulcer Measurement Start: 01/25/19 09:36 Freq: Status: Active Protocol: Activity Type Activity Date Activity User E-Sign Co-Sign Detail Recorded Client Recorded Date Recorded By Document 01/30/19 12:04 DL [id number] 01/30/19 12:10 DL 01/30/19 12:04 Wound Center Nurse 1 [Ulcer Assessment] #7 Lateral RLE -Current Size (cm) - Length 0.9 -Current Size (cm) - Width 1.1 -Current Size (cm) - Depth 0.2 -Total Square Cm 0.99 -Photo Taken No -Exudate Amt Small -Exudate Type Serosanguineous -Wound Margin Distinct, Outline Attached -Granulation Amt Medium (34-66%) -Granulation Quality Red -Necrosis Amt Medium (34-66%) -Necrotic Tissue Type Adherent Slough -Structure Exposed N/A -Texture (Denisse-wound Skin Appearance) Localized Edema Scarring -Moisture (Denisse-wound Skin Appearance Dry/Scaly ) -Color (Denisse-wound Skin Appearance) Hemosiderin Staining -Temperature (Denisse-wound Skin No Abnormality Appearance) (Pt Warm) -Tenderness on Palpation (Denisse-wound No Skin Appearance) -Ulcer Cleansing Wound Cleanser -Foul Odor after Cleansing No -Anesthetic Used 4% Lidocaine Solution [Edema Assessment] -Right Calf (cm) 27.2 -Right Ankle (cm) 20.5 -Left Calf (cm) 29 -Left Ankle (cm) 22.6 WC - Nurse 2 - General Ulcer CM Notes Start: 01/25/19 09:36 Freq: Status: Active Protocol: Activity Type Activity Date Activity User E-Sign Co-Sign Detail Recorded Client Recorded Date Recorded By Document 01/30/19 12:31 AN [id number] 01/30/19 12:34 AN 01/30/19 12:31 Wound Center Nurse 2 [Procedure/Treatment] #7 Lateral RLE -Time 12:31 -Correct Patient Yes -Correct Side, Site, Position Yes -Correct Procedure Yes -Procedure Performed Yes -Type of Procedure Debridement -Clinical Debridement Subcutaneous -Post Debridement Size (cm) - Length 1.0 -Post Debridement Size (cm) - Width 1.2 -Post Debridement Size (cm) - Depth 0.2 -Total Square Cm 1.20 -Wound/Ulcer Outcome Not Healed -Ulcer Cleansing Rinsed/ Irrigated with Saline -Foul Odor after Cleansing No -Bioengineered Tissue No -Bleeding Controlled with Pressure -Offloading Yes -Type of Offloading Surgical Shoe -Treatment Response Procedure Tolerated Well [See Physician Procedure note for Specifics] Pain Scale: 0-10 Numeric [Pain] -Is Patient Pain Free? Yes Musculoskeletal: No Tenderness to Palpation of Joints or Extremities, Muscle Wasting Neurological: - - Lack of sensation light touch right lower extremity Psych/Mental Status: Normal Affect, Appropriate Debridement Note Post-Debridement Measurements/Treatment WC - Nurse 2 - General Ulcer CM Notes Start: 01/25/19 09:36 Freq: Status: Active Protocol: Activity Type Activity Date Activity User E-Sign Co-Sign Detail Recorded Client Recorded Date Recorded By Document 01/30/19 12:31 [email or web address] [id number] 01/30/19 12:34 AN 01/30/19 12:31 Wound Center Nurse 2 #7 Lateral RLE -Time 12:31 -Correct Patient Yes -Correct Side, Site, Position Yes -Correct Procedure Yes -Procedure Performed Yes -Type of Procedure Debridement -Clinical Debridement Subcutaneous -Post Debridement Size (cm) - Length 1.0 -Post Debridement Size (cm) - Width 1.2 -Post Debridement Size (cm) - Depth 0.2 -Total Square Cm 1.20 -Wound/Ulcer Outcome Not Healed -Ulcer Cleansing Rinsed/ Irrigated with Saline -Foul Odor after Cleansing No -Bioengineered Tissue No -Bleeding Controlled with Pressure -Offloading Yes -Type of Offloading Surgical Shoe -Treatment Response Procedure Tolerated Well Pain Scale: 0-10 Numeric Is Patient Pain Free? Yes Wound debrided: lateral leg Laterality: Right Type of Debridement: Excisional debridement Anesthesia Used: 5% Lidocaine Gel Depth: in the subcutaneous layer Percentage of wound debrided: 100 Instrument Used: #15 blade Tissue Removed: fibrous, devitalized subcutaneous, biofilm, slough Severity: Fat Layer Exposed Amount of bleeding with debridement: Mild Bleeding Controlled with: Pressure Patient tolerated procedure well Assessment/Plan Active Problems (Last Reviewed 08/13/18 @ 10:19 by Fernando Patterson MD) Ulcer of right lower extremity with fat layer exposed (Chronic) Assessment: Right lateral ankle ulcer healed. Right lateral leg ulcer, fat layer exposed. refractory osteomyelitis calcaneus, right. Right heel ulcer healed. Left leg ulcer healed. Peripheral vascular disease with rest pain. Other comorbidities. Delayed healing. Malnutrition. Paralysis and gait imp airment with wheelchair use Plan: I reviewed and discussed his case today. The advance wound care product remains intact. Debridement and a subcutaneous excisional manner was performed to right lateral leg. He completed a full course of advanced wound care product, epi fix. Recommend every other day dressing changes with mona; this is applied today. To monitor the recenlty healed sites due to fragility. Home health is on hold this week. This will be monitored very closely and there does not appear to be an infection. He had recent noninvasive vascular studies performed which demonstrated noncompressible vessels in which ankle-brachial indices were not calculated. This is consistent with rest pain as well as multisegmental occlusive disease and vessel calcification. He did go for consultation with Dr. De Anda previously who formed an angioplasty to her in which intervention options were not identified. It is noted he does have perfusion opportunities available to the lower extremity on the right side. His labs were updated previously and discussed in his white blood cell count is 6.0, sedimentation rate 14, and hemoglobin A1c 5.8%. His updated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 x-rays do not demonstrate osseous destruction, periosteal reaction, soft tissue emphysema, acute fracture dislocation, or foreign body. Vessel calcification is seen on plain x-ray consistent with vessel disease. It is noted he completed a 6-week course of IV antibiotics and infectious disease has also been following him closely. He had a previous MRI which demonstrated mild marrow edema to the left calcaneus and lateral ankle consistent with osteomyelitis; the adjacent ulcer site have healed. He also had previous MRI which demonstrated these same findings to right calcaneus with adjacent ongoing delayed healing ulcer; this is the area of concern for refractory osteomyelitis at this time. Due to delayed healing, pain, and continued deep tissue exposure this is consistent with chronic osteomyelitis. I recommend hyperbaric oxygen therapy to optimize healing; this is medically necessary to optimize healing. It is noted his ejection fraction is 65%. It is noted he completed a course of hyperbaric oxygen therapy. I answered all his questions. To continue with nutritional supplementation, Fred. To return to clinic in 1 week for physician reevaluation or call sooner if he has any questions or concerns.
[2019-02-06 11:25] VITALS: BP 137/71; PULSE 78; RESP 18; TEMP 36.4; BMI 24.3
--- NOTE | 2019-02-06 15:36 | PCM.WC.PN ---
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 Right leg ulcer History of Wound: This 83-year-old male with multiple comorbidities was seen at the wound healing center for 1 remaining ulcer to the right lateral leg. He had previously completed a vascular surgery evaluation with Dr. De Anda and an Angio without any identifiable intervention noted. He denies fever, chill, nausea, vomiting. He is a paraplegic and presents in a wheelchair. He continues to take Fred supplementation. He uses bilateral donut offloading pillows and this helps keep pressure off the sites. He completed hyperbaric oxygen therapy. He is with his today. Progress of Wound: Improving right leg ulcer - Physical Exam Vital Signs Temp Pulse Resp BP 97.5 F L 78 18 137/71 H 02/06/19 11:25 02/06/19 11:25 02/06/19 11:25 02/06/19 11:25 General: Alert, Oriented x3, Cooperative Extremities: No cyanosis, Capillary Refill Less than 3 Seconds, No Calf Tenderness, Diminished Peripheral Pulses, Edema - Mild, - - Paralysis bilateral lower extremities Skin: Ulcer/ Wound - No purulence, erythema, streaking, odor, or infection of right leg ulcer. No other ulcers noted. The skin is atrophic and hairless Wound Measurements and Assessment WC - Nurse 1 - General Ulcer Measurement Start: 01/25/19 09:36 Freq: Status: Active Protocol: Activity Type Activity Date Activity User E-Sign Co-Sign Detail Recorded Client Recorded Date Recorded By Document 02/06/19 11:25 RB [id number] 02/06/19 11:45 RB 02/06/19 11:25 Wound Center Nurse 1 [Ulcer Assessment] #7 Lateral RLE -Combined with other wound No -Current Size (cm) - Length 0.6 -Current Size (cm) - Width 0.8 -Current Size (cm) - Depth 0.2 -Total Square Cm 0.48 -Tunneling No -Undermining/Tunneling No -Circular Undermining No -Exudate Amt Small -Exudate Type Serosanguineous -Wound Margin Thickened & Rolled Under -Granulation Amt Small (1-33%) -Granulation Quality [place] Red -Necrosis Amt Medium (34-66%) -Necrotic Tissue Type Adherent Slough -Structure Exposed N/A -Texture (Denisse-wound Skin Appearance) Assessed -Moisture (Denisse-wound Skin Appearance Assessed ) -Color (Denisse-wound Skin Appearance) Hemosiderin Staining -Temperature (Denisse-wound Skin No Abnormality Appearance) (Pt Warm) -Tenderness on Palpation (Denisse-wound No Skin Appearance) -Ulcer Cleansing Rinsed/ Irrigated with Saline -Foul Odor after Cleansing No -Anesthetic Used 5% Lidocaine Gel [Edema Assessment] -Lower Limb Edema Present Yes -Right Calf (cm) 29 -Right Ankle (cm) 22.5 WC - Nurse 2 - General Ulcer CM Notes Start: 01/25/19 09:36 Freq: Status: Active Protocol: Activity Type Activity Date Activity User E-Sign Co-Sign Detail Recorded Client Recorded Date Recorded By Document 02/06/19 11:57 AN [id number] 02/06/19 12:03 AN 02/06/19 11:57 Wound Center Nurse 2 [Procedure/Treatment] #7 Lateral RLE -Time 11:58 -Correct Patient Yes -Correct Side, Site, Position Yes -Correct Procedure Yes -Procedure Performed Yes -Type of Procedure Debridement -Clinical Debridement Subcutaneous -Post Debridement Size (cm) - Length 0.7 -Post Debridement Size (cm) - Width 0.9 -Post Debridement Size (cm) - Depth 0.2 -Total Square Cm 0.63 -Wound/Ulcer Outcome Not Healed -Ulcer Cleansing Rinsed/ Irrigated with Saline -Foul Odor after Cleansing No -Bioengineered Tissue No -Bleeding Controlled with Pressure -Offloading Yes -Type of Offloading Surgical Shoe -Treatment Response Procedure Tolerated Well [See Physician Procedure note for Specifics] Musculoskeletal: No Tenderness to Palpation of Joints or Extremities, Muscle Wasting Neurological: - - Lack of epicritic sensation light touch bilateral lower extremities Psych/Mental Status: Normal Affect, Appropriate Debridement Note Post-Debridement Measurements/Treatment WC - Nurse 2 - General Ulcer CM Notes Start: 01/25/19 09:36 Freq: Status: Active Protocol: Activity Type Activity Date Activity User E-Sign Co-Sign Detail Recorded Client Recorded Date Recorded By Document 01/30/19 12:31 AN [id number] 01/30/19 12:34 AN Document 02/06/19 11:57 AN [id number] 02/06/19 12:03 AN 01/30/19 02/06/19 12:31 11:57 Wound Center Nurse 2 #7 Lateral RLE -Time 12:31 11:58 -Correct Patient Yes Yes -Correct Side, Site, Position Yes Yes -Correct Procedure Yes Yes -Procedure Performed Yes Yes -Type of Procedure Debridement Debridement -Clinical Debridement Subcutaneous Subcutaneous -Post Debridement Size (cm) - Length 1.0 0.7 -Post Debridement Size (cm) - Width 1.2 0.9 -Post Debridement Size (cm) - Depth 0.2 0.2 -Total Square Cm 1.20 0.63 -Wound/Ulcer Outcome Not Healed Not Healed -Ulcer Cleansing Rinsed/ Rinsed/ Irrigated with Irrigated with Saline Saline -Foul Odor after Cleansing No No -Bioengineered Tissue No No -Bleeding Controlled with Pressure Pressure -Offloading Yes Yes -Type of Offloading Surgical Shoe Surgical Shoe -Treatment Response Procedure Procedure Tolerated Well Tolerated Well Pain Scale: 0-10 Numeric Is Patient Pain Free? Yes Wound debrided: lateral leg Laterality: Right Type of Debridement: Excisional debridement Anesthesia Used: 5% Lidocaine Gel Depth: in the subcutaneous layer Percentage of wound debrided: 100 Instrument Used: #15 blade Tissue Removed: fibrous, devitalized subcutaneous, biofilm, slough Severity: Fat Layer Exposed Amount of bleeding with debridement: Mild Bleeding Controlled with: Pressure Patient tolerated procedure well Assessment/Plan Assessment: Right lateral leg ulcer, fat layer exposed. Peripheral vascular disease with rest pain. Other comorbidities. Delayed healing. Malnutrition. Paralysis and gait impairment with wheelchair use Plan: I reviewed and discussed his case today. The advanced wound care product remains intact. Debridement and a subcutaneous excisional debridement was performed to the right lateral leg. He completed a full course of advanced wound care product, epi fix. Recommend every other day dressing changes with mona; this is applied today. To monitor the recenlty healed sites due to fragility. He had previous noninvasive vascular studies performed which demonstrated noncompressible vessels in which ankle-brachial indices were not calculated. This is consistent with rest pain as well as multisegmental occlusive disease and vessel calcification. He did go for consultation with Dr. De Anda previously who formed an angioplasty to her in which intervention options were not identified. It is noted he does have perfusion opportunities available to the lower extremity on the right side. His labs were updated previously and discussed in his white blood cell count is 6.0, sedimentation rate 14, and hemoglobin A1c 5.8%. His updated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 x-rays do not demonstrate osseous destruction, periosteal reaction, soft tissue emphysema, acute fracture dislocation, or foreign body. Vessel calcification is seen on plain x-ray consistent with vessel disease. It is noted he completed a 6-week course of IV antibiotics and infectious disease has also been following him closely. He had a previous MRI which demonstrated mild marrow edema to the left calcaneus and lateral ankle consistent with osteomyelitis; the adjacent ulcer site have healed. He also had previous MRI which demonstrated these same findings to right calcaneus with adjacent ongoing delayed healing ulcer; this is the area of concern for refractory osteomyelitis at this time. Due to delayed healing, pain, and continued deep tissue exposure this is consistent with chronic osteomyelitis. I recommend hyperbaric oxygen therapy to optimize healing; this is medically necessary to optimize healing. It is noted his ejection fraction is 65%. It is noted he completed a course of hyperbaric oxygen therapy. I answered all his questions. To continue with nutritional supplementation, Fred. To return to clinic in 1 week for physician reevaluation or call sooner if he has any questions or concerns.
[2019-02-13 11:28] VITALS: BP 153/78; PULSE 68; RESP 18; TEMP 36.4; BMI 24.3
--- NOTE | 2019-02-13 12:57 | PN.PCM_ITS ---
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 Right leg ulcer History of Wound: This 83-year-old male with multiple comorbidities was seen at the wound healing center for 1 remaining ulcer to the right lateral leg. He had previously completed a vascular surgery evaluation with Dr. De Anda and an Angio without any identifiable intervention noted. He denies fever, chill, nausea, vomiting. He is a paraplegic and presents in a wheelchair. He continues to take Fred supplementation. He uses bilateral donut offloading pillows and this helps keep pressure off the sites. He completed hyperbaric oxygen therapy. He is with his today. Progress of Wound: Improving - Physical Exam Vital Signs Temp Pulse Resp BP 97.5 F L 68 18 153/78 H 02/13/19 11:28 02/13/19 11:28 02/13/19 11:28 02/13/19 11:28 General: Alert, Oriented x3, Cooperative Extremities: No cyanosis, Capillary Refill Less than 3 Seconds, No Calf Tenderness, Diminished Peripheral Pulses, Edema - Mild Skin: Ulcer/ Wound - No purulence, erythema, streaking, odor, or infection. The peripheral skin is hairless and atrophic Wound Measurements and Assessment WC - Nurse 1 - General Ulcer Measurement Start: 01/25/19 09:36 Freq: Status: Active Protocol: Activity Type Activity Date Activity User E-Sign Co-Sign Detail Recorded Client Recorded Date Recorded By Document 02/13/19 11:28 RB [id number] 02/13/19 11:30 RB 02/13/19 11:28 Wound Center Nurse 1 [Ulcer Assessment] #7 Lateral RLE -Combined with other wound No -Current Size (cm) - Length 0.7 -Current Size (cm) - Width 0.5 -Current Size (cm) - Depth 0.2 -Total Square Cm 0.35 -Photo Taken No -Tunneling No -Undermining/Tunneling No -Circular Undermining No -Exudate Amt Small -Exudate Type Serosanguineous -Wound Margin Distinct, Outline Attached -Granulation Amt Medium (34-66%) -Granulation Quality Red -Slough/Fibrin Yes -Necrosis Amt Medium (34-66%) -Necrotic Tissue Type Adherent Slough -Structure Exposed N/A -Texture (Denisse-wound Skin Appearance) Assessed -Moisture (Denisse-wound Skin Appearance Dry/Scaly ) -Color (Denisse-wound Skin Appearance) Assessed -Temperature (Denisse-wound Skin No Abnormality Appearance) (Pt Warm) -Tenderness on Palpation (Denisse-wound No Skin Appearance) -Ulcer Cleansing Wound Cleanser -Foul Odor after Cleansing No -Anesthetic Used 5% Lidocaine Gel [Edema Assessment] -Lower Limb Edema Present Yes -Right Calf (cm) 28.5 -Right Ankle (cm) 21.5 WC - Nurse 2 - General Ulcer CM Notes Start: 01/25/19 09:36 Freq: Status: Active Protocol: Activity Type Activity Date Activity User E-Sign Co-Sign Detail Recorded Client Recorded Date Recorded By Document 02/13/19 12:09 AN [id number] 02/13/19 12:11 AN 02/13/19 12:09 Wound Center Nurse 2 [Procedure/Treatment] #7 Lateral RLE -Time 12:10 -Correct Patient Yes -Correct Side, Site, Position Yes -Correct Procedure Yes -Procedure Performed Yes -Type of Procedure Debridement -Clinical Debridement Subcutaneous -Post Debridement Size (cm) - Length 0.8 -Post Debridement Size (cm) - Width 0.6 -Post Debridement Size (cm) - Depth 0.2 -Total Square Cm 0.48 [See Physician Procedure note for Specifics] Musculoskeletal: No Tenderness to Palpation of Joints or Extremities, Muscle Wasting, - - Paraplegia bilateral Neurological: - - Lack of normal epicritic sensation light touch right lower extremity Psych/Mental Status: Normal Affect, Appropriate Debridement Note Post-Debridement Measurements/Treatment WC - Nurse 2 - General Ulcer CM Notes Start: 01/25/19 09:36 Freq: Status: Active Protocol: Activity Type Activity Date Activity User E-Sign Co-Sign Detail Recorded Client Recorded Date Recorded By Document 01/30/19 12:31 AN [id number] 01/30/19 12:34 AN Document 02/06/19 11:57 AN [id number] 02/06/19 12:03 AN Document 02/13/19 12:09 AN [id number] 02/13/19 12:11 AN 01/30/19 02/06/19 02/13/19 12:31 11:57 12:09 Wound Center Nurse 2 #7 Lateral RLE -Time 12:31 11:58 12:10 -Correct Patient Yes Yes Yes -Correct Side, Site, Position Yes Yes Yes -Correct Procedure Yes Yes Yes -Procedure Performed Yes Yes Yes -Type of Procedure Debridement Debridement Debridement -Clinical Debridement Subcutaneous Subcutaneous Subcutaneous -Post Debridement Size (cm) - Length 1.0 0.7 0.8 -Post Debridement Size (cm) - Width 1.2 0.9 0.6 -Post Debridement Size (cm) - Depth 0.2 0.2 0.2 -Total Square Cm 1.20 0.63 0.48 -Wound/Ulcer Outcome Not Healed Not Healed -Ulcer Cleansing Rinsed/ Rinsed/ Irrigated with Irrigated with Saline Saline -Foul Odor after Cleansing No No -Bioengineered Tissue No No -Bleeding Controlled with Pressure Pressure -Offloading Yes Yes -Type of Offloading Surgical Shoe Surgical Shoe -Treatment Response Procedure Procedure Tolerated Well Tolerated Well Pain Scale: 0-10 Numeric Is Patient Pain Free? 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 Peripheral vascular disease with rest pain. Other comorbidities. Delayed healing. Malnutrition. Paralysis and gait impairment with wheelchair use Plan: I reviewed and discussed his case today. The advanced wound care product remains intact. Subcutaneous excisional debridement was performed to the right lateral leg. He completed a full course of advanced wound care product, epi fix. Recommend every other day dressing changes with mona; this is applied today. To monitor the recenlty healed sites due to fragility. He had previous noninvasive vascular studies performed which demonstrated noncompressible vessels in which ankle-brachial indices were not calculated. This is consistent with rest pain as well as multisegmental occlusive disease and vessel calcification. He did go for consultation with Dr. De Anda previously who formed an angioplasty to her in which intervention options were not identified. It is noted he does have perfusion opportunities available to the lower extremity on the right side. His labs were updated previously and discussed in his white blood cell count is 6.0, sedimentation rate 14, and hemoglobin A1c 5.8%. His updated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 x-rays do not demonstrate osseous destruction, periosteal reaction, soft tissue emphysema, acute fracture dislocation, or foreign body. Vessel calcification is seen on plain x-ray consistent with vessel disease. It is noted he completed a 6-week course of IV antibiotics and infectious disease has also been following him closely. He had a previous MRI which demonstrated mild marrow edema to the left calcaneus and lateral ankle consistent with osteomyelitis; the adjacent ulcer site have healed. He also had previous MRI which demonstrated these same findings to right calcaneus with adjacent ongoing delayed healing ulcer; this is the area of concern for refractory osteomyelitis at this time. Due to delayed healing, pain, and continued deep tissue exposure this is consistent with chronic osteomyelitis. I recommend hyperbaric oxygen therapy to optimize healing; this is medically necessary to optimize healing. It is noted his ejection fraction is 65%. It is noted he completed a course of hyperbaric oxygen therapy. I answered all his questions. To continue with nutritional supplementation, Fred. To return to clinic in 1 week for physician reevaluation or call sooner if he has any questions or concerns.
[2019-02-20 11:33] VITALS: BP 126/62; PULSE 62; RESP 18; TEMP 36.6; BMI 24.3
--- NOTE | 2019-02-20 15:46 | PN.PCM_ITS ---
(1) Skin ulcer of left foot Status: Acute Code(s): L97.529 - Non-pressure chronic ulcer of other part of left foot with unspecified severity (2) Ulcer of right lower extremity with fat layer exposed Status: Chronic Code(s): L97.912 - Non-pressure chronic ulcer of unspecified part of right lower leg with fat layer exposed (3) Paralysis Status: Chronic Code(s): G83.9 - Paralytic syndrome, unspecified (4) Malnutrition Status: Chronic Code(s): E46 - Unspecified protein-calorie malnutrition (5) Delayed wound healing Status: Chronic Code(s): T14.8XXD - Other injury of unspecified body region, subsequent encounter Type of Wound Date of Service: 02/20/19 Chief Complaint: Right leg ulcer. New left foot blister injury History of Wound: This 83-year-old male with multiple comorbidities was seen at the wound healing center for 1 remaining ulcer to the right lateral leg. He had previously completed a vascular surgery evaluation with Dr. De Anda and an Angio without any identifiable intervention noted. He denies fever, chill, nausea, vomiting. He is a paraplegic and presents in a wheelchair. He continues to take Fred supplementation. He uses bilateral donut offloading pillows and this helps keep pressure off the sites. He completed hyperbaric oxygen therapy. He is with his today. He has also sustained a new blister with open ulcer lesion to the top of the left foot secondary to suspected dressing application. He denies redness or pain. This occurred within the past 2 days. Progress of Wound: Improving right leg. New left skin blister compromise site noted - Physical Exam Vital Signs Temp Pulse Resp BP 98 F 62 18 126/62 H 02/20/19 11:33 02/20/19 11:33 02/20/19 11:33 02/20/19 11:33 General: Alert, Oriented x3, Cooperative HEENT: Atraumatic Extremities: No cyanosis, Capillary Refill Less than 3 Seconds, No Calf Tenderness, Diminished Peripheral Pulses, Edema - Mild, - - Paralysis bilateral lower extremities. In wheelchair Skin: Ulcer/ Wound - No purulence, erythema, streaking, odor, or infection bilateral. Decreased ulcer size and peripheral epithelialization is noted to the right leg. The peripheral skin is hairless and atrophic bilateral. The dorsal right foot has a drain serous fluid blister and the outer skin layer was left intact as a biological barrier. There is no signs of infection or deep tissue communication noted at this site. Wound Measurements and Assessment - Nurse 1 - General Ulcer Measurement Start: 01/25/19 09:36 Freq: Status: Active Protocol: Activity Type Activity Date Activity User E-Sign Co-Sign Detail Recorded Client Recorded Date Recorded By Document 02/20/19 11:33 [id number] 02/20/19 11:41 02/20/19 11:33 Wound Center Nurse 1 [Ulcer Assessment] #7 Lateral RLE -Current Size (cm) - Length 0.8 -Current Size (cm) - Width 0.6 -Current Size (cm) - Depth 0.1 -Total Square Cm 0.48 -Photo Taken Yes -Exudate Amt None Present -Wound Margin Distinct, Outline Attached -Granulation Amt Medium (34-66%) -Granulation Quality Red -Necrosis Amt Medium (34-66%) -Necrotic Tissue Type Adherent Slough -Structure Exposed N/A -Texture (Denisse-wound Skin Appearance) Localized Edema Scarring -Moisture (Denisse-wound Skin Appearance Dry/Scaly ) -Color (Denisse-wound Skin Appearance) Hemosiderin Staining -Temperature (Denisse-wound Skin No Abnormality Appearance) (Pt Warm) -Tenderness on Palpation (Denisse-wound No Skin Appearance) -Ulcer Cleansing Wound Cleanser -Foul Odor after Cleansing No -Anesthetic Used 5% Lidocaine Gel [Edema Assessment] -Right Calf (cm) 27.2 -Right Ankle (cm) 20 -Left Calf (cm) 29 -Left Ankle (cm) 22.5 - Nurse 2 - General Ulcer CM Notes Start: 01/25/19 09:36 Freq: Status: Active Protocol: Activity Type Activity Date Activity User E-Sign Co-Sign Detail Recorded Client Recorded Date Recorded By Document 02/20/19 12:06 [email or web address] [id number] 02/20/19 12:07 AN 02/20/19 12:06 Wound Center Nurse 2 [Procedure/Treatment] #7 Lateral RLE -Time 12:06 -Correct Patient Yes -Correct Side, Site, Position Yes -Correct Procedure Yes -Procedure Performed Yes -Type of Procedure Debridement -Clinical Debridement Subcutaneous -Post Debridement Size (cm) - Length 0.9 -Post Debridement Size (cm) - Width 0.6 -Post Debridement Size (cm) - Depth 0.1 -Total Square Cm 0.54 -Bleeding Controlled with Pressure -Treatment Response Procedure Tolerated Well [See Physician Procedure note for Specifics] Pain Scale: 0-10 Numeric [Pain] -Is Patient Pain Free? Yes Musculoskeletal: No Tenderness to Palpation of Joints or Extremities, Muscle Wasting Neurological: - - Lack of normal epicritic sensation light touch noted Psych/Mental Status: Normal Affect, Appropriate Debridement Note Post-Debridement Measurements/Treatment WC - Nurse 2 - General Ulcer CM Notes Start: 01/25/19 09:36 Freq: Status: Active Protocol: Activity Type Activity Date Activity User E-Sign Co-Sign Detail Recorded Client Recorded Date Recorded By Document 01/30/19 12:31 AN [id number] 01/30/19 12:34 AN Document 02/06/19 11:57 AN [id number] 02/06/19 12:03 AN Document 02/13/19 12:09 AN [id number] 02/13/19 12:11 AN Document 02/20/19 12:06 AN [id number] 02/20/19 12:07 AN 01/30/19 02/06/19 02/13/19 12:31 11:57 12:09 Wound Center Nurse 2 #7 Lateral RLE -Time 12:31 11:58 12:10 -Correct Patient Yes Yes Yes -Correct Side, Site, Position Yes Yes Yes -Correct Procedure Yes Yes Yes -Procedure Performed Yes Yes Yes -Type of Procedure Debridement Debridement Debridement -Clinical Debridement Subcutaneous Subcutaneous Subcutaneous -Post Debridement Size (cm) - Length 1.0 0.7 0.8 -Post Debridement Size (cm) - Width 1.2 0.9 0.6 -Post Debridement Size (cm) - Depth 0.2 0.2 0.2 -Total Square Cm 1.20 0.63 0.48 -Wound/Ulcer Outcome Not Healed Not Healed -Ulcer Cleansing Rinsed/ Rinsed/ Irrigated with Irrigated with Saline Saline -Foul Odor after Cleansing No No -Bioengineered Tissue No No -Bleeding Controlled with Pressure Pressure -Offloading Yes Yes -Type of Offloading Surgical Shoe Surgical Shoe -Treatment Response Procedure Procedure Tolerated Well Tolerated Well Pain Scale: 0-10 Numeric Is Patient Pain Free? Yes 02/20/19 12:06 Wound Center Nurse 2 #7 Lateral RLE -Time 12:06 -Correct Patient Yes -Correct Side, Site, Position Yes -Correct Procedure Yes -Procedure Performed Yes -Type of Procedure Debridement -Clinical Debridement Subcutaneous -Post Debridement Size (cm) - Length 0.9 -Post Debridement Size (cm) - Width 0.6 -Post Debridement Size (cm) - Depth 0.1 -Total Square Cm 0.54 -Wound/Ulcer Outcome -Ulcer Cleansing -Foul Odor after Cleansing -Bioengineered Tissue -Bleeding Controlled with Pressure -Offloading -Type of Offloading -Treatment Response Procedure Tolerated Well Pain Scale: 0-10 Numeric Is Patient Pain Free? Yes Wound debrided: lateral leg Laterality: Right Type of Debridement: Excisional debridement Anesthesia Used: 5% Lidocaine Gel Depth: in the subcutaneous layer Percentage of wound debrided: 100 Instrument Used: #15 blade Tissue Removed: fibrous, devitalized subcutaneous, biofilm, slough Severity: Fat Layer Exposed Amount of bleeding with debridement: Mild Bleeding Controlled with: Pressure Patient tolerated procedure well Assessment/Plan Assessment: Right lateral leg ulcer, fat layer exposed. Blister/new skin discontinuity dorsal left foot, no infection. Peripheral vascular disease with rest pain. Other comorbidities. Delayed healing. Malnutrition. Paralysis and gait impairment with wheelchair use Plan: I reviewed and discussed his case today. The advanced wound care product remains intact. Subcutaneous excisional debridement was performed to the right lateral leg. He completed a full course of advanced wound care product, epi fix. Recommend every other day dressing changes with mona; this is applied today. To apply Adaptic to the left foot and to be cautious with compression dressing application. To monitor the recenlty healed sites due to fragility. He had previous noninvasive vascular studies performed which demonstrated noncompressible vessels in which ankle-brachial indices were not calculated. This is consistent with rest pain as well as multisegmental occlusive disease and vessel calcification. He did go for consultation with Dr. De Anda previously who formed an angioplasty to her in which intervention options were not identified. It is noted he does have perfusion opportunities available to the lower extremity on the right side. His labs were updated previously and discus sed in his white blood cell count is 6.0, sedimentation rate 14, and hemoglobin A1c 5.8%. His updated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 x-rays do not demonstrate osseous destruction, periosteal reaction, soft tissue emphysema, acute fracture dislocation, or foreign body. Vessel calcification is seen on plain x-ray consistent with vessel disease. It is noted he completed a 6-week course of IV antibiotics and infectious disease has also been following him closely. He had a previous MRI which demonstrated mild marrow edema to the left calcaneus and lateral ankle consistent with osteomyelitis; the adjacent ulcer site have healed. He also had previous MRI which demonstrated these same findings to right calcaneus with adjacent ongoing delayed healing ulcer; this is the area of concern for refractory osteomyelitis at this time. Due to delayed healing, pain, and continued deep tissue exposure this is consistent with chronic osteomyelitis. I recommend hyperbaric oxygen therapy to optimize healing; this is medically necessary to optimize healing. It is noted his ejection fraction is 65%. It is noted he completed a course of hyperbaric oxygen therapy. I answered all his questions. To continue with nutritional supplementation, Fred. To return to clinic in 1 week for physician reevaluation or call sooner if he has any questions or concerns.
== END 2019-02-24 23:59 ==
LOC: WC 11:15
PROVIDERS: Family Provider Family Medicine; PCP Family Medicine; Referring Provider Podiatrist; Visit Provider Podiatrist
DX: I73.9 Peripheral vascular disease, unspecified (principal); L97.812 Non-pressure chronic ulcer of other part of right lower leg with fat layer exposed; M86.671 Other chronic osteomyelitis,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; G83.9 Paralytic syndrome, unspecified
CPT/HCPCS: 11042; 99183; G0277

== ENCOUNTER 2019-03-13 11:00 | Outpatient (RCR) | payer MEDICARE, OTHER, SELFPAY ==
[2019-02-25 00:52] VITALS: BP 126/62; PULSE 62; RESP 18; TEMP 36.6
[2019-02-27 11:41] VITALS: BP 143/68; PULSE 62; RESP 16; TEMP 36.4; BMI 24.3
--- NOTE | 2019-02-27 13:09 | WC ---
olvin to left ant foot per Drs order. roll gauze applied
--- NOTE | 2019-02-27 15:27 | PN.PCM_ITS ---
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 (2) Chronic ulcer of left foot with fat layer exposed Status: Chronic Current Visit: Yes Code(s): L97.522 - Non-pressure chronic ulcer of other part of left foot with fat layer exposed (3) Malnutrition Status: Chronic Current Visit: Yes Code(s): E46 - Unspecified protein- calorie malnutrition (4) Delayed wound healing Status: Chronic Current Visit: Yes Code(s): T14.8XXD - Other injury of unspecified body region, subsequent encounter (5) Paraplegia Status: Chronic Current Visit: Yes Code(s): G82.20 - Paraplegia, unspecified Comment: due to transverse myelitis Type of Wound Date of Service: 02/27/19 Chief Complaint: Right leg ulcer. Left foot ulcer History of Wound: This 83-year-old male with multiple comorbidities was seen at the wound healing center for 1 remaining ulcer to the right lateral leg and a newer injury induced also to the top of his left foot. He had previously completed a vascular surgery evaluation with Dr. De Anda and an Angio without any identifiable intervention noted. He denies fever, chill, nausea, vomiting. He is a paraplegic and presents in a wheelchair. He continues to take Fred supplementation. He uses bilateral donut offloading pillows and this helps keep pressure off the sites. He completed hyperbaric oxygen therapy. He is with his today. He denies redness or pain. Progress of Wound: Improving right leg. Stabilizing left foot - Physical Exam Vital Signs Temp Pulse Resp BP 97.5 F L 62 16 143/68 H 02/27/19 11:41 02/27/19 11:41 02/27/19 11:41 02/27/19 11:41 General: Alert, Oriented x3, Cooperative HEENT: Atraumatic Extremities: No cyanosis, Capillary Refill Less than 3 Seconds, No Calf Tenderness, Diminished Peripheral Pulses, Edema - Mild bilateral lower extremities, - - Paralysis bilateral lower extremities; wheelchair noted Skin: Ulcer/ Wound - No purulence, erythema, streaking, odor, or infection bilateral lower extremities. Reduced ulcer sized to the right leg is noted. The left dorsal foot blister site outer skin has resorbed and there is a small eschar noted. The peripheral skin to bilateral lower extremities is atrophic and hairless Wound Measurements and Assessment WC - Nurse 1 - General Ulcer Measurement Start: 02/27/19 11:38 Freq: Status: Active Protocol: Activity Type Activity Date Activity User E-Sign Co-Sign Detail Recorded Client Recorded Date Recorded By Document 02/27/19 11:41 CAMERON [id number] 02/27/19 11:48 CAMERON 02/27/19 11:41 Wound Center Nurse 1 [Ulcer Assessment] #7 Lateral RLE -Combined with other wound No -Current Size (cm) - Length 0.6 -Current Size (cm) - Width 0.5 -Current Size (cm) - Depth 0.1 -Total Square Cm 0.30 -Photo Taken Yes -Epithelialization Large 67-100% -Tunneling No -Undermining/Tunneling No -Circular Undermining No -Exudate Amt Small -Exudate Type Serosanguineous -Wound Margin Flat & Intact -Granulation Amt Medium (34-66%) -Granulation Quality [place] -Slough/Fibrin Yes -Necrosis Amt Small (1-33%) -Necrotic Tissue Type Adherent Slough -Structure Exposed N/A -Texture (Denisse-wound Skin Appearance) Assessed -Moisture (Denisse-wound Skin Appearance Assessed ) Dry/Scaly -Color (Denisse-wound Skin Appearance) Assessed -Temperature (Denisse-wound Skin No Abnormality Appearance) (Pt Warm) -Tenderness on Palpation (Denisse-wound No Skin Appearance) -Ulcer Cleansing Rinsed/ Irrigated with Saline -Foul Odor after Cleansing No -Anesthetic Used 4% Lidocaine Solution [Edema Assessment] -Lower Limb Edema Present Yes -Right Calf (cm) 29.0 -Right Ankle (cm) 20.6 WC - Nurse 2 - General Ulcer CM Notes Start: 02/27/19 11:38 Freq: Status: Active Protocol: Activity Type Activity Date Activity User E-Sign Co-Sign Detail Recorded Client Recorded Date Recorded By Document 02/27/19 12:27 AN [id number] 02/27/19 12:33 AN 02/27/19 12:27 Wound Center Nurse 2 [Procedure/Treatment] #7 Lateral RLE -Time 12:32 -Correct Patient Yes -Correct Side, Site, Position Yes -Correct Procedure Yes -Procedure Performed Yes -Type of Procedure Debridement -Clinical Debridement Subcutaneous -Post Debridement Size (cm) - Length 0.7 -Post Debridement Size (cm) - Width 0.6 -Post Debridement Size (cm) - Depth 0.1 -Total Square Cm 0.42 -Wound/Ulcer Outcome Not Healed -Ulcer Cleansing Rinsed/ Irrigated with Saline -Foul Odor after Cleansing No -Bioengineered Tissue No -Bleeding Controlled with Pressure -Offloading Yes -Type of Offloading Surgical Shoe -Treatment Response Procedure Tolerated Well [See Physician Procedure note for Specifics] Musculoskeletal: No Tenderness to Palpation of Joints or Extremities, Muscle Wasting Neurological: - - Lack of epicritic sensation light touch bilateral lower extremities Psych/Mental Status: Normal Affect, Appropriate Debridement Note Post-Debridement Measurements/Treatment WC - Nurse 2 - General Ulcer CM Notes Start: 02/27/19 11:38 Freq: Status: Active Protocol: Activity Type Activity Date Activity User E-Sign Co-Sign Detail Recorded Client Recorded Date Recorded By Document 02/27/19 12:27 AN [id number] 02/27/19 12:33 AN 02/27/19 12:27 Wound Center Nurse 2 #7 Lateral RLE -Time 12:32 -Correct Patient Yes -Correct Side, Site, Position Yes -Correct Procedure Yes -Procedure Performed Yes -Type of Procedure Debridement -Clinical Debridement Subcutaneous -Post Debridement Size (cm) - Length 0.7 -Post Debridement Size (cm) - Width 0.6 -Post Debridement Size (cm) - Depth 0.1 -Total Square Cm 0.42 -Wound/Ulcer Outcome Not Healed -Ulcer Cleansing Rinsed/ Irrigated with Saline -Foul Odor after Cleansing No -Bioengineered Tissue No -Bleeding Controlled with Pressure -Offloading Yes -Type of Offloading Surgical Shoe -Treatment Response Procedure Tolerated Well Wound debrided: leg Laterality: Right Type of Debridement: Excisional debridement Anesthesia Used: 5% Lidocaine Gel Depth: in the subcutaneous layer Percentage of wound debrided: 100 Instrument Used: #15 blade Tissue Removed: fibrous, devitalized subcutaneous, biofilm, slough Severity: Fat Layer Exposed Amount of bleeding with debridement: Mild Bleeding Controlled with: Pressure Patient tolerated procedure well - Additional Wound Wound debrided: dorsal foot Laterality: Left Patient tolerated procedure: - - no debridement- will start santyl Assessment/Plan Active Problems (Last Reviewed 08/13/18 @ 10:19 by Fernando Patterson MD) Ulcer of right lower extremity with fat layer exposed (Chronic) Chronic ulcer of left foot with fat layer exposed (Chronic) Malnutrition (Chronic) 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 Ulcer dorsal left foot, no infection. Peripheral vascular disease with rest pain. Other comorbidities. Delayed healing. Malnutrition. Paralysis and gait impairment with wheelchair use Plan: I reviewed and discussed his case today. Subcutaneous excisional debridement was performed to the right lateral leg. He completed a full course of advanced wound care product, epi fix. Recommend every other day dressing changes with hydrogel and Adaptic; this is applied today to the right leg. To change left foot dorsal dressing Santyl and gauze applied and nickel thickness daily. To monitor the recenlty healed sites due to fragility. He had previous noninvasive vascular studies performed which demonstrated noncompressible vessels in which ankle-brachial indices were not calculated. This is consistent with rest pain as well as multisegmental occlusive disease and vessel calcification. He did go for consultation with Dr. De Anda previously who formed an angioplasty to her in which intervention options were not identified. It is noted he does have perfusion opportunities available to the lower extremity on the right side. His labs were updated previously and discussed in his white blood cell count is 6.0, sedimentation rate 14, and hemoglobin A1c 5.8%. His updated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 x-rays do not demonstrate osseous destruction, periosteal reaction, soft tissue emphysema, acute fracture dislocation, or foreign body. Vessel calcification is seen on plain x-ray consistent with vessel disease. It is noted he completed a 6-week course of IV antibiotics and infectious disease has also been following him closely. He had a previous MRI which demonstrated mild marrow edema to the left calcaneus and lateral ankle consistent with osteomyelitis; the adjacent ulcer site have healed. He also had previous MRI which demonstrated these same findings to right calcaneus with adjacent ongoing delayed healing ulcer; this is the area of concern for refractory osteomyelitis at this time. Due to delayed healing, pain, and continued deep tissue exposure this is consistent with chronic osteomyelitis. I recommend hyperbaric oxygen therapy to optimize healing; this is medically necessary to optimize healing. It is noted his ejection fraction is 65%. It is noted he completed a course of hyperbaric oxygen therapy. I answered all his questions. To continue with nutritional supplementation, Fred. To return to clinic in 1 week for physician reevaluation or call sooner if he has any questions or concerns.
[2019-03-07 13:27] VITALS: RESP 16; TEMP 36.6; BMI 24.3
--- NOTE | 2019-03-07 18:04 | PN.PCM_ITS ---
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: Acute Current Visit: Yes Code(s): L97.912 - Non-pressure chronic ulcer of unspecified part of right lower leg with fat layer exposed (2) Ulcer of right lower extremity with fat layer exposed Status: Chronic Current Visit: Yes Code(s): L97.912 - Non-pressure chronic ulcer of unspecified part of right lower leg with fat layer exposed (3) Chronic ulcer of left foot with fat layer exposed Status: Chronic Current Visit: Yes Code(s): L97.522 - Non-pressure chronic ulcer of other part of left foot with fat layer exposed (4) Malnutrition Status: Chronic Current Visit: Yes Code(s): E46 - Unspecified protein- calorie malnutrition (5) Delayed wound healing Status: Chronic Current Visit: Yes Code(s): T14.8XXD - Other injury of unspecified body region, subsequent encounter (6) Paraplegia Status: Chronic Current Visit: Yes Code(s): G82.20 - Paraplegia, unspecified Comment: due to transverse myelitis Type of Wound Date of Service: 03/07/19 Chief Complaint: Right leg ulcer. Left foot ulcer. left leg ulcer new History of Wound: This 83-year-old male with multiple comorbidities was seen at the wound healing center for 1 remaining ulcer to the right lateral leg and a newer injury induced also to the top of his left foot. He had previously completed a vascular surgery evaluation with Dr. De Anda and an Angio without any identifiable intervention noted. He denies fever, chill, nausea, vomiting. He is a paraplegic and presents in a wheelchair. He continues to take Fred supplementation. He uses bilateral donut offloading pillows and this helps keep pressure off the sites. He completed hyperbaric oxygen therapy. He is with his today. He denies redness or pain. He noticed a new ulcer has formed to the outside of his left leg with scant drainage. He denies pain or redness or known trauma to this site. Progress of Wound: Improving right leg. improving left foot. new ulcer left leg - Physical Exam Vital Signs Temp Pulse Resp BP 98 F 62 16 143/68 H 03/07/19 13:27 02/27/19 11:41 03/07/19 13:27 02/27/19 11:41 General: Alert, Oriented x3, Cooperative HEENT: Atraumatic Extremities: No cyanosis, Capillary Refill Less than 3 Seconds, No Calf Tenderness, Diminished Peripheral Pulses, Edema - mild bilateral lower extremities, - - paralysis bilateral lower extremities Skin: Ulcer/ Wound - no purulence, no erythema, no streaking, no infection or necrosis. atrophic adjacent skin with lack of hair. new ulcer noted left leg Wound Measurements and Assessment WC - Nurse 1 - General Ulcer Measurement Start: 02/27/19 11:38 Freq: Status: Active Protocol: Activity Type Activity Date Activity User E-Sign Co-Sign Detail Recorded Client Recorded Date Recorded By Document 03/07/19 13:27 [facility] [id number] 03/07/19 13:43 [facility] 03/07/19 13:27 Wound Center Nurse 1 [Ulcer Assessment] #7 Lateral RLE -Combined with other wound No -Current Size (cm) - Length 0.1 -Current Size (cm) - Width 0.1 -Current Size (cm) - Depth 0.2 -Total Square Cm 0.01 -Date of Last Picture (Recall this 03/07/19 field) -Photo Taken Yes -Epithelialization None Present -Tunneling No -Undermining/Tunneling No -Circular Undermining No -Exudate Amt Small -Exudate Type Serous -Wound Margin Distinct, Outline Attached -Granulation Amt Medium (34-66%) -Granulation Quality Red -Slough/Fibrin Yes -Necrosis Amt Small (1-33%) -Necrotic Tissue Type Adherent Slough -Texture (Denisse-wound Skin Appearance) No Abnormality Scarring -Moisture (Denisse-wound Skin Appearance Assessed ) Dry/Scaly -Color (Denisse-wound Skin Appearance) Assessed -Temperature (Denisse-wound Skin No Abnormality Appearance) (Pt Warm) -Tenderness on Palpation (Denisse-wound No Skin Appearance) -Ulcer Cleansing Rinsed/ Irrigated with Saline -Foul Odor after Cleansing No -Anesthetic Used 5% Lidocaine Gel [Edema Assessment] -Lower Limb Edema Present Yes -Right Calf (cm) 28.5 -Right Ankle (cm) 20.2 -Left Calf (cm) 31 -Left Ankle (cm) 22.3 WC - Nurse 2 - General Ulcer CM Notes Start: 02/27/19 11:38 Freq: Status: Active Protocol: Activity Type Activity Date Activity User E-Sign Co-Sign Detail Recorded Client Recorded Date Recorded By Document 03/07/19 14:38 AN [id number] 03/07/19 14:42 AN 03/07/19 14:38 Wound Center Nurse 2 [Procedure/Treatment] #7 Lateral RLE -Time 14:38 -Correct Patient Yes -Correct Side, Site, Position Yes -Correct Procedure Yes -Procedure Performed Yes -Type of Procedure Debridement -Clinical Debridement Subcutaneous -Post Debridement Size (cm) - Length 0.1 -Post Debridement Size (cm) - Width 0.1 -Post Debridement Size (cm) - Depth 0.2 -Total Square Cm 0.01 -Wound/Ulcer Outcome Not Healed -Ulcer Cleansing Rinsed/ Irrigated with Saline -Foul Odor after Cleansing No -Bleeding Controlled with Pressure -Offloading No -Treatment Response Procedure Tolerated Well [See Physician Procedure note for Specifics] Musculoskeletal: No Tenderness to Palpation of Joints or Extremities, Muscle Wasting Neurological: - - lack of epicritic sensation via light touch Psych/Mental Status: Normal Affect, Appropriate Debridement Note Post-Debridement Measurements/Treatment WC - Nurse 2 - General Ulcer CM Notes Start: 02/27/19 11:38 Freq: Status: Active Protocol: Activity Type Activity Date Activity User E-Sign Co-Sign Detail Recorded Client Recorded Date Recorded By Document 02/27/19 12:27 AN [id number] 02/27/19 12:33 AN Document 03/07/19 14:38 AN [id number] 03/07/19 14:42 AN 02/27/19 03/07/19 12:27 14:38 Wound Center Nurse 2 #7 Lateral RLE -Time 12:32 14:38 -Correct Patient Yes Yes -Correct Side, Site, Position Yes Yes -Correct Procedure Yes Yes -Procedure Performed Yes Yes -Type of Procedure Debridement Debridement -Clinical Debridement Subcutaneous Subcutaneous -Post Debridement Size (cm) - Length 0.7 0.1 -Post Debridement Size (cm) - Width 0.6 0.1 -Post Debridement Size (cm) - Depth 0.1 0.2 -Total Square Cm 0.42 0.01 -Wound/Ulcer Outcome Not Healed Not Healed -Ulcer Cleansing Rinsed/ Rinsed/ Irrigated with Irrigated with Saline Saline -Foul Odor after Cleansing No No -Bioengineered Tissue No -Bleeding Controlled with Pressure Pressure -Offloading Yes No -Type of Offloading Surgical Shoe -Treatment Response Procedure Procedure Tolerated Well Tolerated Well Wound debrided: dorsal foot Laterality: Right Type of Debridement: Excisional debridement Anesthesia Used: 5% Lidocaine Gel Depth: in the subcutaneous layer Percentage of wound debrided: 100 Instrument Used: #15 blade Tissue Removed: fibrous, devitalized subcutaneous, biofilm, slough Severity: Fat Layer Exposed Amount of bleeding with debridement: Mild Bleeding Controlled with: Pressure Patient tolerated procedure well - Additional Wound Wound debrided: lateral leg Laterality: Right Type of Debridement: Excisional debridement Anesthesia Used: 5% Lidocaine Gel Depth: in the subcutaneous layer Percentage of wound debrided: 100 Instrument Used: #15 blade Tissue Removed: fibrous, devitalized subcutaneous, biofilm, slough Severity: Fat Layer Exposed Amount of bleeding with debridement: Mild Bleeding Controlled with: Pressure Patient tolerated procedure: Patient tolerated procedure well - Additional Wound Wound debrided: lateral posterior leg Laterality: Left Type of Debridement: Excisional debridement Anesthesia Used: 5% Lidocaine Gel Depth: in the subcutaneous layer Percentage of wound debrided: 100 Instrument Used: #15 blade Tissue Removed: fibrous, devitalized subcutaneous, biofilm, slough Severity: Fat Layer Exposed Amount of bleeding with debridement: Mild Bleeding Controlled with: Pressure Patient tolerated procedure: Patient tolerated procedure well Assessment/Plan Active Problems (Last Reviewed 08/13/18 @ 10:19 by Fernando Patterson MD) Ulcer of right lower extremity with fat layer exposed (Chronic) Ulcer of right lower extremity with fat layer exposed (Acute) Chronic ulcer of left foot with fat layer exposed (Chronic) Malnutrition (Chronic) 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 Ulcer dorsal left foot, no infection. new left leg ulcer, no infection. Peripheral vascular disease with rest pain. Other comorbidities. Delayed healing. Malnutrition. Paralysis and gait impairment with wheelchair use Plan: I reviewed and discussed his case today. Subcutaneous excisional debridement was performed to the right lateral leg, dorsal left foot (eschar resolved today), and new ulcer site left leg. He completed a full course of advanced wound care product, epi fix. Recommend every other day dressing changes with hydrogel and Adaptic to all three site; this is applied today. To monitor the recenlty healed sites due to fragility. He had previous noninvasive vascular studies performed which demonstrated noncompressible vessels in which ankle-brachial indices were not calculated. This is consistent with rest pain as well as multisegmental occlusive disease and vessel calcification. He did go for consultation with Dr. De Anda previously who formed an angioplasty to her in which intervention options were not identified. It is noted he does have perfusion opportunities available to the lower extremity on the right side. His labs were updated previously and discussed in his white blood cell count is 6.0, sedimentation rate 14, and hemoglobin A1c 5.8%. His updated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 x-rays do not demonstrate osseous destruction, periosteal reaction, soft tissue emphysema, acute fracture dislocation, or foreign body. Vessel calcification is seen on plain x-ray consistent with vessel disease. It is noted he completed a 6-week course of IV antibiotics and infectious disease has also been following him closely. He had a previous MRI which demonstrated mild marrow edema to the left calcaneus and lateral ankle consistent with osteomyelitis; the adjacent ulcer site have healed. He also had previous MRI which demonstrated these same findings to right calcaneus with adjacent ongoing delayed healing ulcer; this is the area of concern for refractory osteomyelitis at this time. Due to delayed healing, pain, and continued deep tissue exposure this is consistent with chronic osteomyelitis. I recommend hyperbaric oxygen therapy to optimize healing; this is medically necessary to optimize healing. It is noted his ejection fraction is 65%. It is noted he completed a course of hyperbaric oxygen therapy. I answered all his questions. To continue with nutritional supplementation, Fred. To return to clinic in 1 week for physician reevaluation or call sooner if he has any questions or concerns.
[2019-03-13 10:58] VITALS: BP 125/66; PULSE 75; RESP 16; TEMP 36.8; BMI 24.3
--- NOTE | 2019-03-13 11:30 | PN.PCM_ITS ---
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 (2) Chronic ulcer of left foot with fat layer exposed Status: Resolved Current Visit: Yes Code(s): L97.522 - Non-pressure chronic ulcer of other part of left foot with fat layer exposed (3) Malnutrition Status: Chronic Current Visit: Yes Code(s): E46 - Unspecified protein- calorie malnutrition (4) Delayed wound healing Status: Chronic Current Visit: Yes Code(s): T14.8XXD - Other injury of unspecified body region, subsequent encounter (5) Paraplegia Status: Chronic Current Visit: Yes Code(s): G82.20 - Paraplegia, unspecified Comment: due to transverse myelitis (6) Ulcer of left lower extremity, limited to breakdown of skin Status: Acute Current Visit: Yes Code(s): L97.921 - Non-pressure chronic ulcer of unspecified part of left lower leg limited to breakdown of skin Type of Wound Date of Service: 03/13/19 Chief Complaint: Right leg ulcer. Left foot ulcer healed. left leg ulcer new, posterior. previous lateral left leg ulcer healed History of Wound: This 83-year-old male with multiple comorbidities was seen at the wound healing center for 1 remaining ulcer to the right lateral leg and a newer injury induced also to the top of his left foot. He had previously completed a vascular surgery evaluation with Dr. De Anda and an Angio without any identifiable intervention noted. He denies fever, chill, nausea, vomiting. He is a paraplegic and presents in a wheelchair. He continues to take Fred supplementation. He uses bilateral donut offloading pillows and this helps keep pressure off the sites. He completed hyperbaric oxygen therapy. He is with his today. He denies redness or pain. He noticed a new ulcer has formed to the outside of his left leg with scant drainage. He denies pain or redness or known trauma to this site. Progress of Wound: Improving right leg. healed left foot and lateral left leg. new ulcer left leg - Physical Exam Vital Signs Temp Pulse Resp BP 98.2 F 75 16 125/66 H 03/13/19 10:58 03/13/19 10:58 03/13/19 10:58 03/13/19 10:58 General: Alert, Oriented x3, Cooperative HEENT: Atraumatic Extremities: No cyanosis, Capillary Refill Less than 3 Seconds, No Calf Tenderness, Diminished Peripheral Pulses, Edema Skin: Ulcer/ Wound - no purulence, no erythema, no streaking, no infection noted. atrophic peripheral skin noted. new superficial subhemorhagic posterior left leg discontinuity noted. epithelialized skin to lateral left leg and dorsal foot noted today. Wound Measurements and Assessment WC - Nurse 1 - General Ulcer Measurement Start: 02/27/19 11:38 Freq: Status: Active Protocol: Activity Type Activity Date Activity User E-Sign Co-Sign Detail Recorded Client Recorded Date Recorded By Document 03/13/19 10:58 DL [id number] 03/13/19 11:05 DL 03/13/19 10:58 Wound Center Nurse 1 [Ulcer Assessment] #7 Lateral RLE -Combined with other wound No -Current Size (cm) - Length 0.3 -Current Size (cm) - Width 0.3 -Current Size (cm) - Depth 0.1 -Total Square Cm 0.09 -Photo Taken No -Tunneling No -Undermining/Tunneling No -Circular Undermining No -Exudate Amt Medium -Exudate Type Serosanguineous -Wound Margin Indistinct, Non -Visible -Granulation Amt None Present (0 %) -Granulation Quality N/A -Necrosis Amt Large (67-100%) -Necrotic Tissue Type Adherent Slough -Structure Exposed None/Limited to Skin Breakdown -Texture (Denisse-wound Skin Appearance) Assessed Scarring -Moisture (Denisse-wound Skin Appearance Assessed ) Weeping -Color (Denisse-wound Skin Appearance) No Abnormality Assessed -Temperature (Denisse-wound Skin No Abnormality Appearance) (Pt Warm) -Tenderness on Palpation (Denisse-wound No Skin Appearance) -Ulcer Cleansing Rinsed/ Irrigated with Saline -Foul Odor after Cleansing No -Anesthetic Used 5% Lidocaine Gel [Edema Assessment] -Lower Limb Edema Present No -Right Calf (cm) 27.5 -Right Ankle (cm) 19.8 [id number] - Nurse 2 - General Ulcer CM Notes Start: 02/27/19 11:38 Freq: Status: Active Protocol: Activity Type Activity Date Activity User E-Sign Co-Sign Detail Recorded Client Recorded Date Recorded By Document 03/13/19 11:18 [id number] 03/13/19 11:19 03/13/19 11:18 Wound Center Nurse 2 [Procedure/Treatment] #7 Lateral RLE -Time 11:19 -Correct Patient Yes -Correct Side, Site, Position Yes -Correct Procedure Yes -Procedure Performed Yes -Type of Procedure Debridement -Clinical Debridement Subcutaneous -Post Debridement Size (cm) - Length 0.3 -Post Debridement Size (cm) - Width 0.3 -Post Debridement Size (cm) - Depth 0.1 -Total Square Cm 0.09 -Wound/Ulcer Outcome Not Healed -Ulcer Cleansing Rinsed/ Irrigated with Saline -Foul Odor after Cleansing No -Bioengineered Tissue No -Bleeding Controlled with Pressure -Offloading No -Treatment Response Procedure Tolerated Well [See Physician Procedure note for Specifics] Pain Scale: 0-10 Numeric [Pain] -Is Patient Pain Free? Yes Musculoskeletal: No Tenderness to Palpation of Joints or Extremities, Muscle Wasting Neurological: - - lack of sensation via touch. paralysis noted bilateral lower extremities Psych/Mental Status: Normal Affect, Appropriate Debridement Note Post-Debridement Measurements/Treatment WC - Nurse 2 - General Ulcer CM Notes Start: 02/27/19 11:38 Freq: Status: Active Protocol: Activity Type Activity Date Activity User E-Sign Co-Sign Detail Recorded Client Recorded Date Recorded By Document 02/27/19 12:27 AN [id number] 02/27/19 12:33 AN Document 03/07/19 14:38 AN [id number] 03/07/19 14:42 AN Document 03/13/19 11:18 [id number] 03/13/19 11:19 02/27/19 03/07/19 03/13/19 12:27 14:38 11:18 Wound Center Nurse 2 #7 Lateral RLE -Time 12:32 14:38 11:19 -Correct Patient Yes Yes Yes -Correct Side, Site, Position Yes Yes Yes -Correct Procedure Yes Yes Yes -Procedure Performed Yes Yes Yes -Type of Procedure Debridement Debridement Debridement -Clinical Debridement Subcutaneous Subcutaneous Subcutaneous -Post Debridement Size (cm) - Length 0.7 0.1 0.3 -Post Debridement Size (cm) - Width 0.6 0.1 0.3 -Post Debridement Size (cm) - Depth 0.1 0.2 0.1 -Total Square Cm 0.42 0.01 0.09 -Wound/Ulcer Outcome Not Healed Not Healed Not Healed -Ulcer Cleansing Rinsed/ Rinsed/ Rinsed/ Irrigated with Irrigated with Irrigated with Saline Saline Saline -Foul Odor after Cleansing No No No -Bioengineered Tissue No No -Bleeding Controlled with Pressure Pressure Pressure -Offloading Yes No No -Type of Offloading Surgical Shoe -Treatment Response Procedure Procedure Procedure Tolerated Well Tolerated Well Tolerated Well Pain Scale: 0-10 Numeric Is Patient Pain Free? Yes Wound debrided: lateral leg Laterality: Right Type of Debridement: Excisional debridement Anesthesia Used: 5% Lidocaine Gel Depth: in the subcutaneous layer Percentage of wound debrided: 100 Instrument Used: #15 blade Tissue Removed: fibrous, devitalized subcutaneous, biofilm, slough Severity: Fat Layer Exposed Amount of bleeding with debridement: Mild Bleeding Controlled with: Pressure Patient tolerated procedure well Assessment/Plan Active Problems (Last Reviewed 08/13/18 @ 10:19 by Fernando Patterson MD) Ulcer of right lower extremity with fat layer exposed (Chronic) Ulcer of right lower extremity with fat layer exposed (Chronic) Ulcer of left lower extremity, limited to breakdown of skin (Acute) Malnutrition (Chronic) 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 Ulcer dorsal left foot healed. left leg ulcer lateral healed. new left posterior leg ulcer skin exposed, no infection. Peripheral vascular disease with rest pain. Other comorbidities. Delayed healing. Malnutrition. Paralysis and gait impairment with wheelchair use Plan: I reviewed and discussed his case today. Subcutaneous excisional debridement was performed to the right lateral leg. His left limb ulcers are healed. he has a new superficial ulcer to the posterior left leg that is noted. He completed a full course of advanced wound care product, epi fix. Recommend every other day dressing changes with hydrogel and Adaptic to right leg and gauze to left; this was applied today. To monitor the recently healed sites due to fragility. He had previous noninvasive vascular studies performed which demonstrated noncompressible vessels in which ankle-brachial indices were not calculated. This is consistent with rest pain as well as multisegmental occlusive disease and vessel calcification. He did go for consultation with Dr. De Anda previously who formed an angioplasty to her in which intervention options were not identified. It is noted he does have perfusion opportunities available to the lower extremity on the right side. His labs were updated pre viously and discussed in his white blood cell count is 6.0, sedimentation rate 14, and hemoglobin A1c 5.8%. His updated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 x-rays do not demonstrate osseous destruction, periosteal reaction, soft tissue emphysema, acute fracture dislocation, or foreign body. Vessel calcification is seen on plain x-ray consistent with vessel disease. It is noted he completed a 6-week course of IV antibiotics and infectious disease has also been following him closely. He had a previous MRI which demonstrated mild marrow edema to the left calcaneus and lateral ankle consistent with osteomyelitis; the adjacent ulcer site have healed. He also had previous MRI which demonstrated these same findings to right calcaneus with adjacent ongoing delayed healing ulcer; this is the area of concern for refractory osteomyelitis at this time. Due to delayed healing, pain, and continued deep tissue exposure this is consistent with chronic osteomyelitis. I recommend hyperbaric oxygen therapy to optimize healing; this is medically necessary to optimize healing. It is noted his ejection fraction is 65%. It is noted he completed a course of hyperbaric oxygen therapy. I answered all his questions. To continue with nutritional supplementation, Fred. To return to clinic in 1 week for physician reevaluation or call sooner if he has any questions or concerns.
== END 2019-03-26 23:59 ==
LOC: WC 11:00
PROVIDERS: Family Provider Family Medicine; PCP Family Medicine; Referring Provider Podiatrist; Visit Provider Podiatrist
DX: I73.9 Peripheral vascular disease, unspecified (principal); L97.812 Non-pressure chronic ulcer of other part of right lower leg with fat layer exposed; M86.671 Other chronic osteomyelitis,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; G82.20 Paraplegia, unspecified; L97.522 Non-pressure chronic ulcer of other part of left foot with fat layer exposed
CPT/HCPCS: 11042

== ENCOUNTER 2019-03-24 11:07 | Emergency (ER) | payer MEDICARE, OTHER, SELFPAY ==
[2019-03-24 11:08] VITALS: BP 147/68; PULSE 71; RESP 16; TEMP 36.7; O2SAT 98; BMI 24.3
[2019-03-24 11:47] LABS: Absolute Lymphocyte Count 1.41 X10^3/ul (0.83-4.51); Basophil# 0.03 X10^3/uL; Basophil% 0.4 % (0-1); Eosinophil# 0.21 X10^3/uL; Eosinophils% 2.5 % (0-5); Hematocrit 40.4 % (40-54); Hemoglobin 13.4 g/dl (13.0-16.5); Lymphocyte # 1.41 X10^3/ul (4.0); Lymphocyte % 17.1 % (19-41); Mean Corp Hgb Conc 33.2 g/gl (32-36); Mean Corpuscular Hgb 31.8 pg (27.0-32.0); Mean Corpuscular Volume 95.7 fL (80-94); Mean Platelet Vol. 9.3 fl (6.2-12.0); Monocyte# 0.58 X10^3/uL; Neutrophil # 5.99 X10^3/uL (2.7-7.7); Neutrophil % 72.8 % (47-70); Platelet Count 195 K/mm3 (150-450); RBC Distribution Width CV 13.5 % (11.6-14.6); RBC Distribution Width SD 47.1 fl (35.1-43.9); Red Blood Count 4.22 M/mm3 (4.6-6.2); White Blood Count 8.2 K/mm3 (4.4-11.0)
[2019-03-24 11:54] LABS: POSITIVE COUNT NO; POSITIVE DIFFERENTIAL NO; POSITIVE MORPHOLOGY NO
[2019-03-24 11:59] LABS: Anion Gap 4 (5-15); BUN 19 mg/dL (7-18); BUN/Creat Ratio 19.6 RATIO (10-20); Calcium,Total 8.8 mg/dL (8.5-10.1); Chloride 104 mmol/L (98-107); Creatinine, Serum 0.97 mg/dL (0.70-1.30); EST Glomerular Filtration Rate 79 mL/min (>60); Est Glom Filt Rate - Afr Amer 96 mL/min (>60); Estimated Creatinine Clearance 61.67 ml/min; Glucose 111 mg/dL (74-106); Potassium 4.4 mmol/L (3.5-5.1); Sodium Level 139 mmol/L (136-145)
--- NOTE | 2019-03-24 12:30 | ED.VISSUMM ---
- ER Visit Summary Date of Service: 03/24/19 Chief Complaint: Right foot cellulitis History of Present Illness: The patient is a 83 M who noted fever, confusion, and right foot cellulitis on the . He was seen at his PCPs office by nurse practitioner and started on doxycycline. The next day the redness was worsened. He states the fever and confusion seem to be improved. Antibiotic was switched on that date to Levaquin for 10 days. He has not had recurrent fever. He continues to have mild erythema and some swelling in his foot. The pain he was having in his right foot previously is now resolved. Patient and wanted to have the wound checked today to ensure he was progressing appropriately. Patient does have a history of paralysis secondary to transverse myelitis. He has history of osteomyelitis. Physical Examination: Vital signs unremarkable. Temperature is 98.1. Head and neck examination normal. Heart regular rate and rhythm. Abdomen is soft and nontender. Right lower extremity examination reveals a wound to the posterior right lower leg with clean wound edges and no significant drainage at this time. He has erythema and edema to his right lower leg and foot. The erythema does jeremy. The foot is not hot to the touch and is not painful. Test Results: CBC reveals normal white count with unremarkable differential. Chemistry studies normal. Emergency Department Course and Treatment: Patient has 5 more days of Levaquin to complete at home. I have encouraged elevation of his foot. I will speak with Dr. Aviles, on-call for patient's PCP to update on current wound exam and patient will follow-up in the office this week. Treatment Plan: [] Disposition: Discharge Impression: Right foot cellulitis, improving This note was generated with [employer] dictation software. It may contain incorrect words, spelling, and punctuation that were not noted in review of the chart prior to signing ED Disposition - Plan for ED Patient: Disposition: Home or Assisted Living Instructions: ED Infec Skin Cellulitis Referrals: Eris Melendez MD [Primary Care Provider] - 3-5 Days
[2019-03-24 12:49] VITALS: BP 129/77; PULSE 62; RESP 15; O2SAT 98
== END 2019-03-24 12:50 | disposition home or self-care (01) ==
PROVIDERS: Emergency Provider Emergency Medicine; Family Provider Family Medicine; PCP Family Medicine
DX: L03.115 Cellulitis of right lower limb (principal); I10 Essential (primary) hypertension; I73.9 Peripheral vascular disease, unspecified; G37.3 Acute transverse myelitis in demyelinating disease of central nervous system; Z79.01 Long term (current) use of anticoagulants; Z79.899 Other long term (current) drug therapy
CPT/HCPCS: 80048; 85025; 99283; A4216

== ENCOUNTER → 2019-03-29 10:40 | Outpatient (CLI) | payer MEDICARE, OTHER, SELFPAY ==
[2019-03-27 11:10] VITALS: BMI 24.3
[2019-03-29 12:52] LABS: Hematocrit 40.6 % (40-54); Hemoglobin 13.1 g/dl (13.0-16.5); Mean Corp Hgb Conc 32.3 g/gl (32-36); Mean Corpuscular Hgb 31.5 pg (27.0-32.0); Mean Corpuscular Volume 97.6 fL (80-94); Mean Platelet Vol. 9.5 fl (6.2-12.0); Platelet Count 199 K/mm3 (150-450); RBC Distribution Width SD 49.6 fl (35.1-43.9); Red Blood Count 4.16 M/mm3 (4.6-6.2); White Blood Count 6.9 K/mm3 (4.4-11.0)
[2019-03-29 12:53] LABS: Erythrocyte Sedimentation Rate 15 mm/hr (0-20)
[2019-03-29 13:01] LABS: CRP 9.93 mg/L (0.0-3.0)
[2019-03-29 13:13] LABS: Scan Indicated on CBC? Y/N NO
== END ==
PROVIDERS: Family Provider Family Medicine; PCP Family Medicine; Referring Provider Family Medicine; Visit Provider Family Medicine
DX: L03.90 Cellulitis, unspecified (principal)
CPT/HCPCS: 36415; 85027; 85652; 86140

== ENCOUNTER 2019-04-24 11:15 | Outpatient (RCR) | payer MEDICARE, OTHER, SELFPAY ==
[2019-03-27 01:01] VITALS: BP 125/66; PULSE 75; RESP 16; TEMP 36.8
[2019-03-27 11:10] VITALS: BP 137/78; PULSE 74; RESP 20; TEMP 36.5; BMI 24.3
--- NOTE | 2019-03-27 11:52 | PCM.WC.PN ---
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 Current Visit: Yes Code(s): L97.912 - Non-pressure chronic ulcer of unspecified part of right lower leg with fat layer exposed (3) Malnutrition Status: Chronic Current Visit: Yes Code(s): E46 - Unspecified protein-calorie malnutrition (4) Delayed wound healing Status: Chronic Current Visit: Yes Code(s): T14.8XXD - Other injury of unspecified body region, subsequent encounter (5) Edema leg Status: Chronic Current Visit: Yes Code(s): R60.0 - Localized edema (6) Paralysis Status: Chronic Current Visit: Yes Code(s): G83.9 - Paralytic syndrome, unspecified Type of Wound Date of Service: 03/27/19 Chief Complaint: Cellulitis and edema exacerbation right foot -new today. Right leg ulcer. Left foot ulcer healed. left leg ulcer recently healed. previous lateral left leg ulcer healed History of Wound: This 83-year-old male with multiple comorbidities was seen at the wound healing center for 1 remaining ulcer to the right lateral leg and a newer injury induced also to the top of his left foot. He had previously completed a vascular surgery evaluation with Dr. De Anda and an Angio without any identifiable intervention noted. He denies fever, chill, nausea, vomiting. He is a paraplegic and presents in a wheelchair. He continues to take Fred supplementation. He uses bilateral donut offloading pillows and this helps keep pressure off the sites. He completed hyperbaric oxygen therapy. He is with his today. He denies redness or pain. He denies drainage to his left leg. I thought there was some weeping noted on the left leg however this may just have been moisture from the nursing cleansing process. He does also have a new concern today. He presented to the emergency room this past Monday for redness of the right foot with increased swelling. He was treated for cellulitis and placed on Levaquin for 10 days. He also relates the Tubigrip's cause pain when he tried to put them on with his increased foot size. He asked for advice on this. He denies other new ulcers on the right lower extremity. Progress of Wound: Increased swelling right lower extremity. Cellulitis resolving right lower extremity-new condition today. Improving right leg. healed left foot and lateral left leg. Healed ulcer left leg - Physical Exam Vital Signs Temp Pulse Resp BP 97.7 F L 74 20 H 137/78 H 03/27/19 11:10 03/27/19 11:10 03/27/19 11:10 03/27/19 11:10 General: Alert, Oriented x3, Cooperative Extremities: No cyanosis, Capillary Refill Less than 3 Seconds, No Calf Tenderness - Negative Ayanna and Ortega signs bilateral, Diminished Peripheral Pulses, Edema - Increased to right foot ankle and leg, - - Paralysis bilateral lower extremities with wheelchair use. Bilateral compartments remain soft and there is no fluctuance or bogginess on palpation. Skin: Ulcer/ Wound - No purulence, erythema, streaking, odor, or infection left lower extremity. The right lateral leg ulcer site has continued granulation tissue noted and appears to be healing. The peripheral skin is hairless and atrophic. There is diffuse edema and erythema to the right foot without increased warmth to touch. There is no maceration or necrosis noted. There is no distinct streaking to the right lower extremity Wound Measurements and Assessment WC - Nurse 1 - General Ulcer Measurement Start: 03/27/19 11:10 Freq: Status: Active Protocol: Activity Type Activity Date Activity User E-Sign Co-Sign Detail Recorded Client Recorded Date Recorded By Document 03/27/19 11:10 [id number] 03/27/19 11:20 CAMERON 03/27/19 11:10 Wound Center Nurse 1 [Ulcer Assessment] #7 Lateral RLE -Current Size (cm) - Length 3.2 -Current Size (cm) - Width 1 -Current Size (cm) - Depth 0.1 -Total Square Cm 3.2 -Photo Taken No -Exudate Amt None Present -Wound Margin Distinct, Outline Attached -Granulation Amt Medium (34-66%) -Granulation Quality Red -Necrosis Amt Medium (34-66%) -Necrotic Tissue Type Adherent Slough -Structure Exposed N/A -Texture (Denisse-wound Skin Appearance) Localized Edema Scarring -Moisture (Denisse-wound Skin Appearance Dry/Scaly ) -Color (Denisse-wound Skin Appearance) Hemosiderin Staining -Temperature (Denisse-wound Skin No Abnormality Appearance) (Pt Warm) -Tenderness on Palpation (Denisse-wound No Skin Appearance) -Ulcer Cleansing Rinsed/ Irrigated with Saline -Foul Odor after Cleansing No -Anesthetic Used 4% Lidocaine Solution [Edema Assessment] -Right Calf (cm) 28.6 -Right Ankle (cm) 23.8 -Left Calf (cm) 30.5 -Left Ankle (cm) 22.7 PHUONG - Nurse 2 - General Ulcer CM Notes Start: 03/27/19 11:10 Freq: Status: Active Protocol: Activity Type Activity Date Activity User E-Sign Co-Sign Detail Recorded Client Recorded Date Recorded By Document 03/27/19 11:49 AN [id number] 03/27/19 11:51 AN 03/27/19 11:49 Wound Center Nurse 2 [Procedure/Treatment] #7 Lateral RLE -Time 11:50 -Correct Patient Yes -Correct Side, Site, Position Yes -Correct Procedure Yes -Procedure Performed Yes -Type of Procedure Debridement -Clinical Debridement Subcutaneous -Post Debridement Size (cm) - Length 3.3 -Post Debridement Size (cm) - Width 1.1 -Post Debridement Size (cm) - Depth 0.1 -Total Square Cm 3.63 -Wound/Ulcer Outcome Not Healed -Ulcer Cleansing Rinsed/ Irrigated with Saline -Foul Odor after Cleansing No -Bioengineered Tissue No -Bleeding Controlled with Pressure -Offloading Yes -Type of Offloading Surgical Shoe -Treatment Response Procedure Tolerated Well [See Physician Procedure note for Specifics] Pain Scale: 0-10 Numeric [Pain] -Is Patient Pain Free? Yes Musculoskeletal: No Tenderness to Palpation of Joints or Extremities, Muscle Wasting Neurological: - - Lack of epicritic sensation to light touch bilateral lower extremities Psych/Mental Status: Normal Affect, Appropriate Debridement Note Post-Debridement Measurements/Treatment WC - Nurse 2 - General Ulcer CM Notes Start: 03/27/19 11:10 Freq: Status: Active Protocol: Activity Type Activity Date Activity User E-Sign Co-Sign Detail Recorded Client Recorded Date Recorded By Document 03/27/19 11:49 AN [id number] 03/27/19 11:51 AN 03/27/19 11:49 Wound Center Nurse 2 #7 Lateral RLE -Time 11:50 -Correct Patient Yes -Correct Side, Site, Position Yes -Correct Procedure Yes -Procedure Performed Yes -Type of Procedure Debridement -Clinical Debridement Subcutaneous -Post Debridement Size (cm) - Length 3.3 -Post Debridement Size (cm) - Width 1.1 -Post Debridement Size (cm) - Depth 0.1 -Total Square Cm 3.63 -Wound/Ulcer Outcome Not Healed -Ulcer Cleansing Rinsed/ Irrigated with Saline -Foul Odor after Cleansing No -Bioengineered Tissue No -Bleeding Controlled with Pressure -Offloading Yes -Type of Offloading Surgical Shoe -Treatment Response Procedure Tolerated Well Pain Scale: 0-10 Numeric Is Patient Pain Free? 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 Cellulitis resolving right lower extremity-new condition today. Right lateral leg ulcer, fat layer exposed. Ulcer dorsal left foot healed. left leg ulcer lateral healed. Healed left posterior leg ulcer. Peripheral vascular disease with rest pain. Other comorbidities. Delayed healing. Malnutrition. Paralysis and gait impairment with wheelchair use Plan: I reviewed and discussed his case today. Subcutaneous excisional debridement was performed to the right lateral leg. The left limb ulcers are healed. He completed a full course of advanced wound care product, epi fix. Recommend every other day dressing changes with hydrogel and Adaptic to right leg; this was applied today. To monitor the recently healed sites due to fragility. To complete the recommended Levaquin antibiotics. I do not recommend wound culture due to the very superficial and dry nature of his right lateral leg ulcer site which does not appear to be corresponding with his area of edema and erythema. A new Tubigrip was dispensed today to address his increased edema status he was advised on proper use. I also recommended he elevate his limb at least 15 minutes every hour after above the level of his heart. It is noted he has been sitting in a recliner however his limb is still lower than his heart. He had previous noninvasive vascular studies performed which demonstrated noncompressible vessels in which ankle-brachial indices were not calculated. This is consistent with rest pain as well as multisegmental occlusive disease and vessel calcification. He did go for consultation with Dr. De Anda previously who formed an angioplasty to her in which intervention options were not identified. It is noted he does have perfusion opportunities available to the lower extremity on the right side. His labs were updated previously and discussed in his white blood cell count is 6.0, sedimentation rate 14, and hemoglobin A1c 5.8%. His updated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 x-rays do not demonstrate osseous destruction, periosteal reaction, soft tissue emphysema, acute fracture dislocation, or foreign body. Vessel calcification is seen on plain x-ray consistent with vessel disease. It is noted he completed a 6-week course of IV antibiotics and infectious disease has also been following him closely. He had a previous MRI which demonstrated mild marrow edema to the left calcaneus and lateral ankle consistent with osteomyelitis; the adjacent ulcer site have healed. He also had previous MRI which demonstrated these same findings to right calcaneus with adjacent ongoing delayed healing ulcer; this is the area of concern for refractory osteomyelitis at this time. Due to delayed healing, pain, and continued deep tissue exposure this is consistent with chronic osteomyelitis. I recommend hyperbaric oxygen therapy to optimize healing; this is medically necessary to optimize healing. It is noted his ejection fraction is 65%. It is noted he completed a course of hyperbaric oxygen therapy. I answered all his questions. To continue with nutritional supplementation, Fred. To return to clinic in 1 week for physician reevaluation or call sooner if he has any questions or concerns.
[2019-04-03 11:30] VITALS: BP 143/80; PULSE 69; RESP 16; TEMP 36; BMI 24.3
--- NOTE | 2019-04-03 16:59 | PN.PCM_ITS ---
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 Current Visit: Yes Code(s): L97.912 - Non-pressure chronic ulcer of unspecified part of right lower leg with fat layer exposed (3) Malnutrition Status: Chronic Current Visit: Yes Code(s): E46 - Unspecified protein- calorie malnutrition (4) Delayed wound healing Status: Chronic Current Visit: Yes Code(s): T14.8XXD - Other injury of unspecified body region, subsequent encounter (5) Edema leg Status: Chronic Current Visit: Yes Code(s): R60.0 - Localized edema (6) Paralysis Status: Chronic Current Visit: Yes Code(s): G83.9 - Paralytic syndrome, unspecified Type of Wound Date of Service: 04/03/19 Chief Complaint: Cellulitis and edema exacerbation right foot -new last week. Right leg ulcer. Left foot ulcer healed. left leg ulcer present today and weeping History of Wound: This 83-year-old male with multiple comorbidities was seen at the wound healing center for ulcer to the right lateral leg and and also the left leg. He is also following up for cellulitis and increased edema there are no in the last week. He he continues on Levaquin and was also started on Linezolid with his primary care physician, Dr. Melendez. He wears Tubigrip for compression therapy. He was advised to elevate his legs to reduce the swelling he relates he is unable to do so because he has been outside a lot last week. He had previously completed a vascular surgery evaluation with Dr. De Anda and an Angio without any identifiable intervention noted. He denies fever, chill, nausea, vomiting. He is a paraplegic and presents in a wheelchair. He continues to take Fred supplementation. He uses bilateral donut offloading pillows and this helps keep pressure off the sites. He completed hyperbaric oxygen therapy. He is with his today. Progress of Wound: Increased swelling right lower extremity. Cellulitis resolving right lower extremity. Improving right leg. healed left foot. Weeping posterior lateral left leg - Physical Exam Vital Signs Temp Pulse Resp BP 96.8 F L 69 16 143/80 H 04/03/19 11:30 04/03/19 11:30 04/03/19 11:30 04/03/19 11:30 General: Alert, Oriented x3, Cooperative HEENT: Atraumatic Extremities: No cyanosis, Capillary Refill Less than 3 Seconds, No Calf Tenderness - Negative Ortega sign bilateral, Diminished Peripheral Pulses, Edema - Increased bilateral lower extremities with right being more notable than the left, Tenderness - Tenderness with ulcer manipulation right leg Skin: Ulcer/ Wound - No purulence or odor or deep probing noted bilateral lower extremities. There is some hemorrhagic tissue exposed to the posterior lateral left leg with some serous drainage. The right leg does have some eschar noted to the. Otherwise granular base ulcer site with some peripheral skin peeling. There is no open wound to the foot. The erythema appears to be localized to the right fourth toe with diffuse decrease intensity to the erythema to the foot. There is no erythema on the leg however edema is persistent. The compartments remain soft to palpate bilateral lower extremities Wound Measurements and Assessment WC - Nurse 1 - General Ulcer Measurement Start: 03/27/19 11:10 Freq: Status: Active Protocol: Activity Type Activity Date Activity User E-Sign Co-Sign Detail Recorded Client Recorded Date Recorded By Document 04/03/19 11:30 [id number] 04/03/19 11:38 04/03/19 11:30 Wound Center Nurse 1 [Ulcer Assessment] #7 Lateral RLE -Combined with other wound No -Current Size (cm) - Length 9.0 -Current Size (cm) - Width 1.0 -Current Size (cm) - Depth 0.1 -Total Square Cm 9.00 -Photo Taken No -Epithelialization Medium 34-66% -Tunneling No -Undermining/Tunneling No -Circular Undermining No -Exudate Amt None Present -Wound Margin Flat & Intact -Granulation Amt None Present (0 %) -Slough/Fibrin Yes -Necrosis Amt Large (67-100%) -Necrotic Tissue Type Adherent Slough -Structure Exposed N/A -Texture (Denisse-wound Skin Appearance) Assessed Localized Edema -Moisture (Denisse-wound Skin Appearance No Abnormality ) Dry/Scaly -Color (Denisse-wound Skin Appearance) Assessed Rubor -Temperature (Denisse-wound Skin No Abnormality Appearance) (Pt Warm) -Tenderness on Palpation (Denisse-wound No Skin Appearance) -Ulcer Cleansing Rinsed/ Irrigated with Saline -Foul Odor after Cleansing No -Anesthetic Used 4% Lidocaine Solution 5% Lidocaine Gel [Edema Assessment] -Lower Limb Edema Present Yes -Right Calf (cm) 30.0 -Right Ankle (cm) 24.0 -Left Calf (cm) 30.2 -Left Ankle (cm) 24.7 WC - Nurse 2 - General Ulcer CM Notes Start: 03/27/19 11:10 Freq: Status: Active Protocol: Activity Type Activity Date Activity User E-Sign Co-Sign Detail Recorded Client Recorded Date Recorded By Document 04/03/19 12:03 AN [id number] 04/03/19 12:04 AN 04/03/19 12:03 Wound Center Nurse 2 [Procedure/Treatment] #7 Lateral RLE -Time 12:03 -Correct Patient Yes -Correct Side, Site, Position Yes -Correct Procedure Yes -Procedure Performed Yes -Type of Procedure Debridement -Clinical Debridement Subcutaneous -Post Debridement Size (cm) - Length 9.1 -Post Debridement Size (cm) - Width 1.2 -Post Debridement Size (cm) - Depth 0.1 -Total Square Cm 10.92 -Wound/Ulcer Outcome Not Healed -Ulcer Cleansing Rinsed/ Irrigated with Saline -Foul Odor after Cleansing No -Bioengineered Tissue No -Bleeding Controlled with Pressure -Offloading Yes -Type of Offloading Surgical Shoe -Treatment Response Procedure Tolerated Well [See Physician Procedure note for Specifics] Musculoskeletal: No Tenderness to Palpation of Joints or Extremities, Muscle Wasting, - - Weakness consistent with paralysis bilateral lower extremities. Wheelchair is noted Neurological: - - Lack of epicritic sensation light touch is noted Psych/Mental Status: Normal Affect, Appropriate Debridement Note Post-Debridement Measurements/Treatment WC - Nurse 2 - General Ulcer CM Notes Start: 03/27/19 11:10 Freq: Status: Active Protocol: Activity Type Activity Date Activity User E-Sign Co-Sign Detail Recorded Client Recorded Date Recorded By Document 03/27/19 11:49 AN [id number] 03/27/19 11:51 AN Document 04/03/19 12:03 AN [id number] 04/03/19 12:04 AN 03/27/19 04/03/19 11:49 12:03 Wound Center Nurse 2 #7 Lateral RLE -Time 11:50 12:03 -Correct Patient Yes Yes -Correct Side, Site, Position Yes Yes -Correct Procedure Yes Yes -Procedure Performed Yes Yes -Type of Procedure Debridement Debridement -Clinical Debridement Subcutaneous Subcutaneous -Post Debridement Size (cm) - Length 3.3 9.1 -Post Debridement Size (cm) - Width 1.1 1.2 -Post Debridement Size (cm) - Depth 0.1 0.1 -Total Square Cm 3.63 10.92 -Wound/Ulcer Outcome Not Healed Not Healed -Ulcer Cleansing Rinsed/ Rinsed/ Irrigated with Irrigated with Saline Saline -Foul Odor after Cleansing No No -Bioengineered Tissue No No -Bleeding Controlled with Pressure Pressure -Offloading Yes Yes -Type of Offloading Surgical Shoe Surgical Shoe -Treatment Response Procedure Procedure Tolerated Well Tolerated Well Pain Scale: 0-10 Numeric Is Patient Pain Free? 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 Cellulitis resolving right lower extremity-new condition today. Right lateral leg ulcer, fat layer exposed. Ulcer dorsal left foot healed. left leg ulcer lateral healed. Healed left posterior leg ulcer. Peripheral vascular disease with rest pain. Other comorbidities. Delayed healing. Malnutrition. Paralysis and gait impairment with wheelchair use Plan: I reviewed and discussed his case today. Subcutaneous excisional debridement was performed to the right lateral leg. To change the dressing daily with Santyl. The left limb ulcers is open and superficial manner and no debridement was performed today. To cover with a gauze. He completed a full course of advanced wound care product, epi fix. To monitor the recently healed sites due to fragility. To complete the recommended Levaquin and linezolid antibiotics. I do not recommend wound culture due to the very superficial and dry nature of his right lateral leg ulcer site which does not appear to be corresponding with his area of edema and erythema. To continue Tubigrip for edema management. I also recommended he elevate his limb at least 15 minutes every hour after above the level of his heart. This is imperative for his treatment plan and compliance was discussed. He had previous noninvasive vascular studies performed which demonstrated noncompressible vessels in which ankle-brachial indices were not calculated. This is consistent with rest pain as well as multisegmental occlusive disease and vessel calcification. He did go for consultation with Dr. De Anda previously who formed an angioplasty to her in which intervention options were not identified. It is noted he does have perfusion opportunities available to the lower extremity on the right side. His labs were updated previously and discussed in his white blood cell count is 6.0, sedimentation rate 14, and hemoglobin A1c 5.8%. His updated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 x-rays do not demonstrate osseous destruction, periosteal reaction, soft tissue emphysema, acute fracture dislocation, or foreign body. Vessel calcification is seen on plain x-ray consistent with vessel disease. I recommend updated foot x-rays. To continue with nutritional supplementation, Fred. To return to clinic in 1 week for physician reevaluation or call sooner if he has any questions or concerns.
[2019-04-10 12:12] VITALS: BP 130/68; PULSE 73; RESP 16; TEMP 37.3; BMI 24.3
--- NOTE | 2019-04-10 14:39 | PN.PCM_ITS ---
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 Code(s): L97.912 - Non-pressure chronic ulcer of unspecified part of right lower leg with fat layer exposed (2) Ulcer of left lower extremity with fat layer exposed Status: Chronic Code(s): L97.922 - Non-pressure chronic ulcer of unspecified part of left lower leg with fat layer exposed (3) Cellulitis of right foot Status: Resolved Code(s): L03.115 - Cellulitis of right lower limb (4) Malnutrition Status: Chronic Code(s): E46 - Unspecified protein-calorie malnutrition (5) Delayed wound healing Status: Chronic Code(s): T14.8XXD - Other injury of unspecified body region, subsequent encounter (6) Edema leg Status: Chronic Code(s): R60.0 - Localized edema (7) Paralysis Status: Chronic Code(s): G83.9 - Paralytic syndrome, unspecified Type of Wound Date of Service: 04/10/19 Chief Complaint: Cellulitis and edema exacerbation right foot - resolved. Right leg ulcer. Left foot ulcer healed. left leg ulcer healed History of Wound: This 83-year-old male with multiple comorbidities was seen at the wound healing center for ulcer to the right lateral leg and and also the left leg. He is also following up for cellulitis and increased edema there are no in the last week. He he continues on Levaquin and Linezolid. He wears Tubigrip for compression therapy. He was advised to elevate his legs to reduce the swelling he relates he is unable to do so because he has been outside a lot last week. He had previously completed a vascular surgery evaluation with Dr. De Anda and an Angio without any identifiable intervention noted. He denies fever, chill, nausea, vomiting. He is a paraplegic and presents in a wheelchair. He continues to take Fred supplementation. He uses bilateral donut offloading pillows and this helps keep pressure off the sites. He completed hyperbaric oxygen therapy. He is with his today. Progress of Wound: decreasing swelling right lower extremity. Cellulitis resolving right lower extremity. Improving right leg. healed left foot. Healed posterior lateral left leg - Physical Exam Vital Signs Temp Pulse Resp BP 99.2 F H 73 16 130/68 H 04/10/19 12:12 04/10/19 12:12 04/10/19 12:12 04/10/19 12:12 General: Alert, Oriented x3, Cooperative Extremities: No cyanosis, Capillary Refill Less than 3 Seconds, No Calf Tenderness, Diminished Peripheral Pulses, Edema, - - Paralysis bilateral lower extremities Skin: Ulcer/ Wound - No purulence, erythema measuring, odor, or infection; reduction of these infections times have resolved compared to last week. The right lateral leg ulcer is granular with some eschar and there is no deep tissue exposed or bogginess or fluctuance on palpation. There is full epithelialization noted to the left lower extremity and the site has healed. Wound Measurements and Assessment WC - Nurse 1 - General Ulcer Measurement Start: 03/27/19 11:10 Freq: Status: Active Protocol: Activity Type Activity Date Activity User E-Sign Co-Sign Detail Recorded Client Recorded Date Recorded By Document 04/10/19 12:12 [id number] 04/10/19 12:19 04/10/19 12:12 Wound Center Nurse 1 [Ulcer Assessment] #7 Lateral RLE -Combined with other wound No -Current Size (cm) - Length 7.9 -Current Size (cm) - Width 0.2 -Current Size (cm) - Depth 0.1 -Total Square Cm 1.58 -Date of Last Picture (Recall this 04/10/19 field) -Photo Taken Yes -Epithelialization None Present -Tunneling No -Undermining/Tunneling No -Circular Undermining No -Exudate Amt None Present -Wound Margin Distinct, Outline Attached -Granulation Amt None Present (0 %) -Granulation Quality N/A -Slough/Fibrin Yes -Necrosis Amt Large (67-100%) -Necrotic Tissue Type Eschar -Moisture (Denisse-wound Skin Appearance Dry/Scaly ) -Color (Denisse-wound Skin Appearance) No Abnormality -Temperature (Denisse-wound Skin No Abnormality Appearance) (Pt Warm) -Tenderness on Palpation (Denisse-wound No Skin Appearance) -Ulcer Cleansing Rinsed/ Irrigated with Saline -Foul Odor after Cleansing No -Anesthetic Used 4% Lidocaine Solution [Edema Assessment] -Lower Limb Edema Present No -Right Calf (cm) 29 -Right Ankle (cm) 22.2 -Left Calf (cm) 32 -Left Ankle (cm) 23.6 WC - Nurse 2 - General Ulcer CM Notes Start: 03/27/19 11:10 Freq: Status: Active Protocol: Activity Type Activity Date Activity User E-Sign Co-Sign Detail Recorded Client Recorded Date Recorded By Document 04/10/19 12:31 AN [id number] 04/10/19 12:32 AN 04/10/19 12:31 Wound Center Nurse 2 [Procedure/Treatment] #7 Lateral RLE -Time 12:31 -Correct Patient Yes -Correct Side, Site, Position Yes -Correct Procedure Yes -Procedure Performed Yes -Type of Procedure Debridement -Clinical Debridement Subcutaneous -Post Debridement Size (cm) - Length 8 -Post Debridement Size (cm) - Width 0.3 -Post Debridement Size (cm) - Depth 0.2 -Total Square Cm 2.4 -Wound/Ulcer Outcome Not Healed -Ulcer Cleansing Rinsed/ Irrigated with Saline -Foul Odor after Cleansing No -Bleeding Controlled with Pressure -Treatment Response Procedure Tolerated Well [See Physician Procedure note for Specifics] Musculoskeletal: No Tenderness to Palpation of Joints or Extremities, Muscle Wasting Neurological: - - Lack of normal epicritic sensation light touch bilateral lower extremities Psych/Mental Status: Normal Affect, Appropriate Debridement Note Post-Debridement Measurements/Treatment WC - Nurse 2 - General Ulcer CM Notes Start: 03/27/19 11:10 Freq: Status: Active Protocol: Activity Type Activity Date Activity User E-Sign Co-Sign Detail Recorded Client Recorded Date Recorded By Document 03/27/19 11:49 AN [id number] 03/27/19 11:51 AN Document 04/03/19 12:03 AN [id number] 04/03/19 12:04 AN Document 04/10/19 12:31 AN [id number] 04/10/19 12:32 AN 03/27/19 04/03/19 04/10/19 11:49 12:03 12:31 Wound Center Nurse 2 #7 Lateral RLE -Time 11:50 12:03 12:31 -Correct Patient Yes Yes Yes -Correct Side, Site, Position Yes Yes Yes -Correct Procedure Yes Yes Yes -Procedure Performed Yes Yes Yes -Type of Procedure Debridement Debridement Debridement -Clinical Debridement Subcutaneous Subcutaneous Subcutaneous -Post Debridement Size (cm) - Length 3.3 9.1 8 -Post Debridement Size (cm) - Width 1.1 1.2 0.3 -Post Debridement Size (cm) - Depth 0.1 0.1 0.2 -Total Square Cm 3.63 10.92 2.4 -Wound/Ulcer Outcome Not Healed Not Healed Not Healed -Ulcer Cleansing Rinsed/ Rinsed/ Rinsed/ Irrigated with Irrigated with Irrigated with Saline Saline Saline -Foul Odor after Cleansing No No No -Bioengineered Tissue No No -Bleeding Controlled with Pressure Pressure Pressure -Offloading Yes Yes -Type of Offloading Surgical Shoe Surgical Shoe -Treatment Response Procedure Procedure Procedure Tolerated Well Tolerated Well Tolerated Well Pain Scale: 0-10 Numeric Is Patient Pain Free? Yes Wound debrided: lateral leg Laterality: Right Type of Debridement: Excisional debridement Anesthesia Used: 5% Lidocaine Gel Depth: in the subcutaneous layer Percentage of wound debrided: 100 Instrument Used: #15 blade Tissue Removed: fibrous, devitalized subcutaneous, biofilm, slough Severity: Fat Layer Exposed Amount of bleeding with debridement: Mild Bleeding Controlled with: Pressure Patient tolerated procedure well Assessment/Plan Assessment: Edema right lower extremity, improving. Cellulitis resolving right lower extremity. Right lateral leg ulcer, fat layer exposed. Ulcer dorsal left foot healed. left leg ulcer lateral healed. Healed left posterior leg ulcer. Peripheral vascular disease with rest pain. Other comorbidities. Delayed healing. Malnutrition. Paralysis and gait impairment with wheelchair use Plan: I reviewed and discussed his case today. Subcutaneous excisional debridement was performed to the right lateral leg. To change the dressing daily with Aimee. The left limb ulcers has healed. T He completed a full course of advanced wound care product, epi fix. To monitor the recently healed sites due to fragility. To complete the recommended Levaquin and linezolid antibiotics. I do not recommend wound culture due to the very superficial and dry nature of his right lateral leg ulcer site which does not appear to be corresponding with his area of edema and erythema. To continue Tubigrip for edema management. I also recommended he elevate his limb at least 15 minutes every hour after above the level of his heart. This is imperative for his treatment plan and compliance was discussed. He had previous noninvasive vascular studies performed which demonstrated noncompressible vessels in which ankle-brachial indices were not calculated. This is consistent with rest pain as well as multisegmental occlusive disease and vessel calcification. He did go for consultation with Dr. De Anda previously who formed an angioplasty to her in which intervention options were not identified. It is noted he does have perfusion opportunities available to the lower extremity on the right side. His labs were updated previously and discussed in his white blood cell count is 6.0, sedimentation rate 14, and hemoglobin A1c 5.8%. His updated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 x-rays do not demonstrate osseous destruction, periosteal reaction, soft tissue emphysema, acute fracture dislocation, or foreign body. Vessel ca lcification is seen on plain x-ray consistent with vessel disease. I recommend updated foot x-rays. To continue with nutritional supplementation, Fred. To return to clinic in 1 week for physician reevaluation or call sooner if he has any questions or concerns.
[2019-04-17 11:37] VITALS: BP 121/69; PULSE 71; RESP 18; TEMP 36.4; BMI 24.3
--- NOTE | 2019-04-17 14:59 | PCM.WC.PN ---
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 (2) Cellulitis of right foot Status: Resolved Current Visit: Yes Code(s): L03.115 - Cellulitis of right lower limb (3) Malnutrition Status: Chronic Current Visit: Yes Code(s): E46 - Unspecified protein-calorie malnutrition (4) Delayed wound healing Status: Chronic Current Visit: Yes Code(s): T14.8XXD - Other injury of unspecified body region, subsequent encounter (5) Edema leg Status: Chronic Current Visit: Yes Code(s): R60.0 - Localized edema (6) Paralysis Status: Chronic Current Visit: Yes Code(s): G83.9 - Paralytic syndrome, unspecified Type of Wound Date of Service: 04/17/19 Chief Complaint: Cellulitis and edema exacerbation right foot - resolved. Right leg ulcer History of Wound: This 83-year-old male with multiple comorbidities was seen at the wound healing center for ulcer to the right lateral leg and and also the left leg. He is also following up for cellulitis and increased edema that has resolved. He he continues on Levaquin and Linezolid. He wears Tubigrip for compression therapy. He was advised to elevate his legs to reduce the swelling he relates he is unable to do so because he has been outside a lot last week. He had previously completed a vascular surgery evaluation with Dr. De Anda and an Angio without any identifiable intervention noted. He denies fever, chill, nausea, vomiting. He is a paraplegic and presents in a wheelchair. He continues to take Fred supplementation. He uses bilateral donut offloading pillows and this helps keep pressure off the sites. He completed hyperbaric oxygen therapy. He is with his today. Progress of Wound: decreasing swelling right lower extremity. Cellulitis resolved right lower extremity. Improving right leg - Physical Exam Vital Signs Temp Pulse Resp BP 97.6 F L 71 18 121/69 H 04/17/19 11:37 04/17/19 11:37 04/17/19 11:37 04/17/19 11:37 General: Alert, Oriented x3, Cooperative, No apparent distress Extremities: No cyanosis, Capillary Refill Less than 3 Seconds, No Calf Tenderness - Negative Ayanna and Ortega signs bilateral. Compartments remain soft to palpate bilateral lower extremities, Diminished Peripheral Pulses, Edema - Decreased bilateral lower extremities but still mild to moderate, - - Weakness and lack of motor function consistent with paralysis; he is in a wheelchair Skin: Ulcer/ Wound - No purulence, erythema, streaking, odor, infection right lower extremity. Peripheral skin is hairless and atrophic. There is no longer any eschar noted in the ulcer bed Wound Measurements and Assessment WC - Nurse 1 - General Ulcer Measurement Start: 03/27/19 11:10 Freq: Status: Active Protocol: Activity Type Activity Date Activity User E-Sign Co-Sign Detail Recorded Client Recorded Date Recorded By Document 04/17/19 11:37 RB [id number] 04/17/19 11:50 RB 04/17/19 11:37 Wound Center Nurse 1 [Ulcer Assessment] #7 Lateral RLE -Combined with other wound No -Current Size (cm) - Length 1.5 -Current Size (cm) - Width 1 -Current Size (cm) - Depth 0.1 -Total Square Cm 1.5 -Tunneling No -Undermining/Tunneling No -Circular Undermining No -Exudate Amt Small -Exudate Type Serosanguineous -Wound Margin Distinct, Outline Attached -Granulation Amt Medium (34-66%) -Granulation Quality [place] Red -Slough/Fibrin Yes -Necrosis Amt Small (1-33%) -Necrotic Tissue Type Adherent Slough -Structure Exposed N/A -Texture (Denisse-wound Skin Appearance) Assessed -Moisture (Denisse-wound Skin Appearance Assessed ) Dry/Scaly -Color (Denisse-wound Skin Appearance) Assessed -Temperature (Denisse-wound Skin No Abnormality Appearance) (Pt Warm) -Tenderness on Palpation (Denisse-wound No Skin Appearance) -Ulcer Cleansing Rinsed/ Irrigated with Saline -Foul Odor after Cleansing No -Anesthetic Used 5% Lidocaine Gel [Edema Assessment] -Lower Limb Edema Present Yes -Right Calf (cm) 37.4 -Right Ankle (cm) 23 WC - Nurse 2 - General Ulcer CM Notes Start: 03/27/19 11:10 Freq: Status: Active Protocol: Activity Type Activity Date Activity User E-Sign Co-Sign Detail Recorded Client Recorded Date Recorded By Document 04/17/19 12:21 AN [id number] 04/17/19 12:22 AN 04/17/19 12:21 Wound Center Nurse 2 [Procedure/Treatment] #7 Lateral RLE -Time 12:21 -Correct Patient Yes -Correct Side, Site, Position Yes -Correct Procedure Yes -Procedure Performed Yes -Type of Procedure Debridement -Clinical Debridement Subcutaneous -Post Debridement Size (cm) - Length 1.6 -Post Debridement Size (cm) - Width 1.1 -Post Debridement Size (cm) - Depth 0.1 -Total Square Cm 1.76 -Wound/Ulcer Outcome Not Healed -Treatment Response Procedure Tolerated Well [See Physician Procedure note for Specifics] Pain Scale: 0-10 Numeric [Pain] -Is Patient Pain Free? Yes Musculoskeletal: No Tenderness to Palpation of Joints or Extremities, Muscle Wasting Neurological: Sensory exam intact to light touch and pain, - Psych/Mental Status: Normal Affect, Appropriate Debridement Note Post-Debridement Measurements/Treatment WC - Nurse 2 - General Ulcer CM Notes Start: 03/27/19 11:10 Freq: Status: Active Protocol: Activity Type Activity Date Activity User E-Sign Co-Sign Detail Recorded Client Recorded Date Recorded By Document 03/27/19 11:49 AN [id number] 03/27/19 11:51 AN Document 04/03/19 12:03 AN [id number] 04/03/19 12:04 AN Document 04/10/19 12:31 AN [id number] 04/10/19 12:32 AN Document 04/17/19 12:21 AN [id number] 04/17/19 12:22 AN 03/27/19 04/03/19 04/10/19 11:49 12:03 12:31 Wound Center Nurse 2 #7 Lateral RLE -Time 11:50 12:03 12:31 -Correct Patient Yes Yes Yes -Correct Side, Site, Position Yes Yes Yes -Correct Procedure Yes Yes Yes -Procedure Performed Yes Yes Yes -Type of Procedure Debridement Debridement Debridement -Clinical Debridement Subcutaneous Subcutaneous Subcutaneous -Post Debridement Size (cm) - Length 3.3 9.1 8 -Post Debridement Size (cm) - Width 1.1 1.2 0.3 -Post Debridement Size (cm) - Depth 0.1 0.1 0.2 -Total Square Cm 3.63 10.92 2.4 -Wound/Ulcer Outcome Not Healed Not Healed Not Healed -Ulcer Cleansing Rinsed/ Rinsed/ Rinsed/ Irrigated with Irrigated with Irrigated with Saline Saline Saline -Foul Odor after Cleansing No No No -Bioengineered Tissue No No -Bleeding Controlled with Pressure Pressure Pressure -Offloading Yes Yes -Type of Offloading Surgical Shoe Surgical Shoe -Treatment Response Procedure Procedure Procedure Tolerated Well Tolerated Well Tolerated Well Pain Scale: 0-10 Numeric Is Patient Pain Free? Yes 04/17/19 12:21 Wound Center Nurse 2 #7 Lateral RLE -Time 12:21 -Correct Patient Yes -Correct Side, Site, Position Yes -Correct Procedure Yes -Procedure Performed Yes -Type of Procedure Debridement -Clinical Debridement Subcutaneous -Post Debridement Size (cm) - Length 1.6 -Post Debridement Size (cm) - Width 1.1 -Post Debridement Size (cm) - Depth 0.1 -Total Square Cm 1.76 -Wound/Ulcer Outcome Not Healed -Ulcer Cleansing -Foul Odor after Cleansing -Bioengineered Tissue -Bleeding Controlled with -Offloading -Type of Offloading -Treatment Response Procedure Tolerated Well Pain Scale: 0-10 Numeric Is Patient Pain Free? Yes Wound debrided: lateral leg Laterality: Right Type of Debridement: Excisional debridement Anesthesia Used: 5% Lidocaine Gel Depth: in the subcutaneous layer Percentage of wound debrided: 100 Instrument Used: #15 blade Tissue Removed: fibrous, devitalized subcutaneous, biofilm, slough Severity: Fat Layer Exposed Amount of bleeding with debridement: Mild Bleeding Controlled with: Pressure Patient tolerated procedure well Assessment/Plan Active Problems (Last Reviewed 08/13/18 @ 10:19 by Fernando Patterson MD) Ulcer of right lower extremity with fat layer exposed (Chronic) Malnutrition (Chronic) Delayed wound healing (Chronic) Edema leg (Chronic) Paralysis (Chronic) Assessment: Edema right lower extremity, improving. Cellulitis resolved right lower extremity. Right lateral leg ulcer, fat layer exposed. Peripheral vascular disease with rest pain. Other comorbidities. Delayed healing. Malnutrition. Paralysis and gait impairment with wheelchair use Plan: I reviewed and discussed his case today. Subcutaneous excisional debridement was performed to the right lateral leg. To change the dressing daily with hydrogel and Adaptic. The ulcer base has improved from a quality standpoint there is no longer any eschar. He completed a full course of advanced wound care product, epi fix. To monitor the recently healed sites due to fragility. To complete the recommended Levaquin and linezolid antibiotics. I do not recommend wound culture due to the very superficial and dry nature of his right lateral leg ulcer site which does not appear to be corresponding with his area of edema and erythema. To continue Tubigrip for edema management. I also recommended he elevate his limb at least 15 minutes every hour after above the level of his heart. This is imperative for his treatment plan and compliance was discussed. He had previous noninvasive vascular studies performed which demonstrated noncompressible vessels in which ankle-brachial indices were not calculated. This is consistent with rest pain as well as multisegmental occlusive disease and vessel calcification. He did go for consultation with Dr. De Anda previously who formed an angioplasty to her in which intervention options were not identified. It is noted he does have perfusion opportunities available to the lower extremity on the right side. His labs were updated previously and discussed in his white blood cell count is 6.0, sedimentation rate 14, and hemoglobin A1c 5.8%. His updated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 x-rays do not demonstrate osseous destruction, periosteal reaction, soft tissue emphysema, acute fracture dislocation, or foreign body. Vessel calcification is seen on plain x-ray consistent with vessel disease. I recommend updated foot x-rays. To continue with nutritional supplementation, Fred. To return to clinic in 1 week for physician reevaluation or call sooner if he has any questions or concerns.
[2019-04-24 11:48] VITALS: BP 147/75; PULSE 69; RESP 18; TEMP 35.5; BMI 24.3
--- NOTE | 2019-04-24 16:29 | PN.PCM_ITS ---
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 (2) Malnutrition Status: Chronic Current Visit: Yes Code(s): E46 - Unspecified protein- calorie malnutrition (3) Delayed wound healing Status: Chronic Current Visit: Yes Code(s): T14.8XXD - Other injury of unspecified body region, subsequent encounter (4) Edema leg Status: Chronic Current Visit: Yes Code(s): R60.0 - Localized edema (5) Paralysis Status: Chronic Current Visit: Yes Code(s): G83.9 - Paralytic syndrome, unspecified Type of Wound Date of Service: 04/24/19 Chief Complaint: Cellulitis and edema exacerbation right foot - resolved. Right leg ulcer History of Wound: This 83-year-old male with multiple comorbidities was seen at the wound healing center for ulcer to the right lateral leg and and also the left leg. He is also following up for cellulitis and increased edema that has resolved. He has completed a successful course of Levaquin and Linezolid. He wears Tubigrip for compression therapy. He was advised to elevate his legs to reduce the swelling he relates he is unable to do so because he has been outside a lot last week. He had previously completed a vascular surgery evaluation with Dr. De Anda and an Angio without any identifiable intervention noted. He denies fever, chill, nausea, vomiting. He is a paraplegic and presents in a wheelchair. He continues to take Fred supplementation. He uses bilateral donut offloading pillows and this helps keep pressure off the sites. He completed hyperbaric oxygen therapy. He is with his today. He denies new injuries. Progress of Wound: decreasing swelling right lower extremity. Cellulitis resolved right lower extremity. Improving right leg - Physical Exam Vital Signs Temp Pulse Resp BP 96 F L 69 18 147/75 H 04/24/19 11:48 04/24/19 11:48 04/24/19 11:48 04/24/19 11:48 General: Alert, Oriented x3, Cooperative, No apparent distress Extremities: No cyanosis, Capillary Refill Less than 3 Seconds, No Calf Tenderness - Negative Ayanna and Ortega sign bilateral, Diminished Peripheral Pulses, Edema - Decreased right leg continued mild bilateral, - - Paralysis bilateral lower extremities; he is in a wheelchair Skin: Ulcer/ Wound - Bilateral lack of purulence, erythema, streaking, odor, infection. Skin is hairless and atrophic Wound Measurements and Assessment WC - Nurse 1 - General Ulcer Measurement Start: 03/27/19 11:10 Freq: Status: Active Protocol: Activity Type Activity Date Activity User E-Sign Co-Sign Detail Recorded Client Recorded Date Recorded By Document 04/24/19 11:48 DL [id number] 04/24/19 11:53 DL 04/24/19 11:48 Wound Center Nurse 1 [Ulcer Assessment] #7 Lateral RLE -Current Size (cm) - Length 0.7 -Current Size (cm) - Width 0.7 -Current Size (cm) - Depth 0.1 -Total Square Cm 0.49 -Photo Taken No -Exudate Amt Small -Exudate Type Serosanguineous -Wound Margin Distinct, Outline Attached -Granulation Amt Large (67-100%) -Granulation Quality Red -Necrosis Amt None Present (0 %) -Necrotic Tissue Type Adherent Slough -Structure Exposed N/A -Texture (Denisse-wound Skin Appearance) Localized Edema Scarring -Moisture (Denisse-wound Skin Appearance Dry/Scaly ) -Color (Denisse-wound Skin Appearance) Hemosiderin Staining -Temperature (Denisse-wound Skin No Abnormality Appearance) (Pt Warm) -Tenderness on Palpation (Denisse-wound No Skin Appearance) -Ulcer Cleansing Wound Cleanser -Foul Odor after Cleansing No -Anesthetic Used 5% Lidocaine Gel [Edema Assessment] -Right Calf (cm) 28 -Right Ankle (cm) 21.5 WC - Nurse 2 - General Ulcer CM Notes Start: 03/27/19 11:10 Freq: Status: Active Protocol: Activity Type Activity Date Activity User E-Sign Co-Sign Detail Recorded Client Recorded Date Recorded By Document 04/24/19 12:31 AN [id number] 04/24/19 12:33 AN 04/24/19 12:31 Wound Center Nurse 2 [Procedure/Treatment] #7 Lateral RLE -Time 12:32 -Correct Patient Yes -Correct Side, Site, Position Yes -Correct Procedure Yes -Procedure Performed Yes -Type of Procedure Debridement -Clinical Debridement Subcutaneous -Post Debridement Size (cm) - Length 0.8 -Post Debridement Size (cm) - Width 0.8 -Post Debridement Size (cm) - Depth 0.1 -Total Square Cm 0.64 -Wound/Ulcer Outcome Not Healed -Ulcer Cleansing Rinsed/ Irrigated with Saline -Foul Odor after Cleansing No -Bioengineered Tissue No -Bleeding Controlled with Pressure -Offloading Yes -Type of Offloading Surgical Shoe -Treatment Response Procedure Tolerated Well [See Physician Procedure note for Specifics] Pain Scale: 0-10 Numeric [Pain] -Is Patient Pain Free? Yes Musculoskeletal: No Tenderness to Palpation of Joints or Extremities, Muscle Wasting Neurological: - - Lack of sensation via light touch Psych/Mental Status: Normal Affect, Appropriate Debridement Note Post-Debridement Measurements/Treatment WC - Nurse 2 - General Ulcer CM Notes Start: 03/27/19 11:10 Freq: Status: Active Protocol: Activity Type Activity Date Activity User E-Sign Co-Sign Detail Recorded Client Recorded Date Recorded By Document 03/27/19 11:49 AN [id number] 03/27/19 11:51 AN Document 04/03/19 12:03 AN [id number] 04/03/19 12:04 AN Document 04/10/19 12:31 AN [id number] 04/10/19 12:32 AN Document 04/17/19 12:21 AN [id number] 04/17/19 12:22 AN Document 04/24/19 12:31 AN [id number] 04/24/19 12:33 AN 03/27/19 04/03/19 04/10/19 11:49 12:03 12:31 Wound Center Nurse 2 #7 Lateral RLE -Time 11:50 12:03 12:31 -Correct Patient Yes Yes Yes -Correct Side, Site, Position Yes Yes Yes -Correct Procedure Yes Yes Yes -Procedure Performed Yes Yes Yes -Type of Procedure Debridement Debridement Debridement -Clinical Debridement Subcutaneous Subcutaneous Subcutaneous -Post Debridement Size (cm) - Length 3.3 9.1 8 -Post Debridement Size (cm) - Width 1.1 1.2 0.3 -Post Debridement Size (cm) - Depth 0.1 0.1 0.2 -Total Square Cm 3.63 10.92 2.4 -Wound/Ulcer Outcome Not Healed Not Healed Not Healed -Ulcer Cleansing Rinsed/ Rinsed/ Rinsed/ Irrigated with Irrigated with Irrigated with Saline Saline Saline -Foul Odor after Cleansing No No No -Bioengineered Tissue No No -Bleeding Controlled with Pressure Pressure Pressure -Offloading Yes Yes -Type of Offloading Surgical Shoe Surgical Shoe -Treatment Response Procedure Procedure Procedure Tolerated Well Tolerated Well Tolerated Well Pain Scale: 0-10 Numeric Is Patient Pain Free? Yes 04/17/19 04/24/19 12:21 12:31 Wound Center Nurse 2 #7 Lateral RLE -Time 12:21 12:32 -Correct Patient Yes Yes -Correct Side, Site, Position Yes Yes -Correct Procedure Yes Yes -Procedure Performed Yes Yes -Type of Procedure Debridement Debridement -Clinical Debridement Subcutaneous Subcutaneous -Post Debridement Size (cm) - Length 1.6 0.8 -Post Debridement Size (cm) - Width 1.1 0.8 -Post Debridement Size (cm) - Depth 0.1 0.1 -Total Square Cm 1.76 0.64 -Wound/Ulcer Outcome Not Healed Not Healed -Ulcer Cleansing Rinsed/ Irrigated with Saline -Foul Odor after Cleansing No -Bioengineered Tissue No -Bleeding Controlled with Pressure -Offloading Yes -Type of Offloading Surgical Shoe -Treatment Response Procedure Procedure Tolerated Well Tolerated Well Pain Scale: 0-10 Numeric Is Patient Pain Free? 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 Cellulitis resolved right lower extremity. Right lateral leg ulcer, fat layer exposed. Peripheral vascular disease with rest pain. Other comorbidities. Delayed healing. Malnutrition. Paralysis and gait impairment with wheelchair use Plan: I reviewed and discussed his case today. Subcutaneous excisional debridement was performed to the right lateral leg. To change the dressing daily with hydrogel and Adaptic. It is noted he has completed the he completed a full course of advanced wound care product, epi fix. To monitor the recently healed sites due to fragility. It is noted he is completed the recommended Levaquin and linezolid antibiotics. To continue Tubigrip for edema management. I also recommended he elevate his limb at least 15 minutes every hour after above the level of his heart. This is imperative for his treatment plan and compliance was discussed. He had previous noninvasive vascular studies performed which demonstrated noncompressible vessels in which ankle-brachial indices were not calculated. This is consistent with rest pain as well as multisegmental occlusive disease and vessel calcification. He did go for consultation with Dr. De Anda previously who formed an angioplasty to her in which intervention options were not identified. It is noted he does have perfusion opportunities available to the lower extremity on the right side. His labs were updated previously and discussed in his white blood cell count is 6.0, sedimentation rate 14, and hemoglobin A1c 5.8%. His updated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 x-rays do not demonstrate osseous destruction, periosteal reaction, soft tissue emphysema, acute fracture dislocation, or foreign body. Vessel calcification is seen on plain x-ray consistent with vessel disease. I recommend updated foot x-rays. To continue with nutritional supplementation, Fred. To return to clinic in 1 week for physician reevaluation or call sooner if he has any questions or concerns.
== END 2019-04-26 23:59 ==
LOC: WC 11:15
PROVIDERS: Family Provider Family Medicine; PCP Family Medicine; Referring Provider Podiatrist; Visit Provider Podiatrist
DX: I73.9 Peripheral vascular disease, unspecified (principal); L97.812 Non-pressure chronic ulcer of other part of right lower leg with fat layer exposed; G82.20 Paraplegia, unspecified; R60.0 Localized edema; L03.115 Cellulitis of right lower limb
CPT/HCPCS: 11042

== ENCOUNTER 2019-04-27 11:28 | Emergency (ER) | payer MEDICARE, OTHER, SELFPAY ==
[2019-04-27 11:30] VITALS: BP 116/54; PULSE 69; RESP 16; TEMP 36.6; O2SAT 95; BMI 25.1
--- NOTE | 2019-04-27 11:41 | RAD_ITS ---
STUDY: X-RAY - LEFT FOOT CLINICAL: Male, 83 years old. Swelling and possible injury TECHNIQUE: 3 view(s) of the foot. COMPARISON: 08/11/2018 FINDINGS: Erosive changes involving the head of the first metatarsal. This could be related to osteomyelitis or erosive arthropathy. Arterial calcifications. Diffuse demineralization. No acute fractures are seen. Soft tissue swelling. Mild hindfoot osteoarthritis. RAD/Foot min 3 Views IMPRESSION: Erosive changes involving the head of the first metatarsal. This could be related to osteomyelitis or erosive arthropathy. No acute osseous injury is evident. Electronically Signed: Jin Agarwal MD at 12:05 EDT Tel , Service support ,
--- NOTE | 2019-04-27 11:45 | ED.DCSUM_ITS ---
- ER Visit Summary Date of Service: 04/27/19 Chief Complaint: Left great toe injury History of Present Illness: The patient is a 83 M presenting with left great toe injury. This occurred yesterday. Patient is in a wheelchair secondary to paraplegia. He has no sensation in his lower extremities. He believes he must have scraped his left great toe. He noticed bleeding yesterday. Today it continued to bleed so they presented to the ED. He is on Plavix. No other complaints. Last tetanus is unknown. Physical Examination: Vitals are stable. Patient is afebrile. Alert no acute distress. HEENT exam is unremarkable. Neck is supple. Lungs are clear and equal bilaterally. Heart is regular rate and rhythm. Extremities left distal great toe flap laceration. No active bleeding. Skin is warm and dry. Remainder of exam is unremarkable. Emergency Department Course and Treatment: Patient given tetanus IM. Left foot x-ray shows no acute osseous injury is evident. Wound was irrigated. Sterile dressing was applied. Advised wound care instructions. Patient has appointment with wound center this week and is advised to keep that appointment. Advised to return to ED if worsening complaints. Disposition: Discharge home Impression: Left great toe injury This note was generated with [employer] dictation software. It may contain incorrect words, spelling, and punctuation that were not noted in review of the chart prior to signing ED Disposition - Plan for ED Patient: Referrals: Eris Melendez MD [Primary Care Provider] -
[2019-04-27] MEDS: Diphth,Pertuss(Acell),Tet Vac 0.5 ML Vial IM (12:20)
--- NOTE | 2019-04-27 12:21 | ED.DEP ---
ED Disposition - Plan for ED Patient: Instructions: ED Laceration Foot Referrals: Eris Melendez MD [Primary Care Provider] -
== END 2019-04-27 12:58 | disposition home or self-care (01) ==
PROVIDERS: Emergency Provider Emergency Medicine; Family Provider Family Medicine; PCP Family Medicine
DX: S91.112A Laceration without foreign body of left great toe without damage to nail, initial encounter (principal); W45.8XXA Other foreign body or object entering through skin, initial encounter; Y93.9 Activity, unspecified; Y92.9 Unspecified place or not applicable; G82.20 Paraplegia, unspecified; I25.10 Atherosclerotic heart disease of native coronary artery without angina pectoris; I10 Essential (primary) hypertension; I73.9 Peripheral vascular disease, unspecified; Z79.02 Long term (current) use of antithrombotics/antiplatelets; Z79.899 Other long term (current) drug therapy
CPT/HCPCS: 73630; 90715; 99282

== ENCOUNTER → 2019-05-09 14:16 | Outpatient (CLI) | payer MEDICARE, OTHER, SELFPAY ==
[2019-05-09 14:16] VITALS: BMI 25.1
--- NOTE | 2019-05-09 14:20 | RAD_ITS ---
HISTORY: LLL pneumonia EXAM: XR Chest 2 Views: COMPARISON: August 10, 2018 FINDINGS: # of images incl. paperwork: 3 A TrapEase filter is present within the SVC. It appears as if some of the struts of the filter are fractured. Dextroscoliosis. Pulmonary hypoexpansion on the frontal image with improved expansion on the lateral image. Calcific plaque within the aortic arch. Multilevel degenerative disc disease. No pleural effusions. Shoulder arthritis remains. Within the right hilum, adjacent to the right sided ventricular peritoneal shunt there is a vertical area of increased linear density. It was not present on the most recent study. Additional comparison is made July 08, 2018, it was not present at that study. It does not appear to be as well-defined as the struts of the filter. There may be some lymph nodes within the right hilum as well. RAD/Chest PA and Lateral IMPRESSION: No acute disease perceived. Resolution of bilateral airspace disease. Decreased pulmonary edema. TrapEase filter within the SVC. Many of the struts of the filter are fractured. Although there is a vertical linear density within the right hilum, it does not have the same appearance as a stripe, possibly a strutted could've migrated into the right main pulmonary artery, therefore I do not believe it is a migrated stripe, just a superimposition of shadows, or perhaps the wall of the bronchus. Severe shoulder arthritis persists. at 0427 Reported and signed by: Rambo Sahu MD Electronically Signed: Rambo Sahu MD at 4:26 EDT Tel , Service support ,
[2019-05-09 15:47] LABS: Absolute Lymphocyte Count 1.21 X10^3/ul (0.83-4.51); Absolute Neutrophil Count 9.7 X10^3/uL (2.0-7.7); Basophil# 0.01 X10^3/uL; Basophil% 0.1 % (0-1); Eosinophil# 0.06 X10^3/uL; Eosinophils% 0.5 % (0-5); Hematocrit 33.9 % (40-54); Hemoglobin 10.7 g/dl (13.0-16.5); Lymphocyte # 1.21 X10^3/ul (4.0); Lymphocyte % 10.4 % (19-41); Mean Corp Hgb Conc 31.6 g/gl (32-36); Mean Corpuscular Hgb 32.3 pg (27.0-32.0); Mean Corpuscular Volume 102.4 fL (80-94); Mean Platelet Vol. 9.8 fl (6.2-12.0); Monocyte# 0.63 X10^3/uL; Monocyte% 5.4 % (0-10); Neutrophil # 9.71 X10^3/uL (2.7-7.7); Neutrophil % 83.4 % (47-70); Platelet Count 197 K/mm3 (150-450); RBC Distribution Width CV 16.3 % (11.6-14.6); RBC Distribution Width SD 59.2 fl (35.1-43.9); Red Blood Count 3.31 M/mm3 (4.6-6.2); White Blood Count 11.6 K/mm3 (4.4-11.0)
[2019-05-09 15:49] LABS: POSITIVE COUNT NO; POSITIVE DIFFERENTIAL NO; POSITIVE MORPHOLOGY NO
[2019-05-09 16:11] LABS: Erythrocyte Sedimentation Rate 17 mm/hr (0-20)
[2019-05-09 16:16] LABS: ALB/GLOB Ratio 0.8 RATIO (0.9-2.4); AST(SGOT) 33 U/L (15-37); Alanine Aminotransfer ALT/SGPT 54 U/L (16-61); Albumin, Serum 3.2 g/dL (3.2-5.0); Alkaline Phosphatase 162 U/L (45-117); Anion Gap 7 (5-15); BUN 24 mg/dL (7-18); BUN/Creat Ratio 20.3 RATIO (10-20); Calcium,Total 8.7 mg/dL (8.5-10.1); Chloride 99 mmol/L (98-107); Creatinine, Serum 1.18 mg/dL (0.70-1.30); EST Glomerular Filtration Rate 63 mL/min (>60); Est Glom Filt Rate - Afr Amer 76 mL/min (>60); Globulin 3.9 g/dL (2.2-4.2); Glucose 120 mg/dL (74-106); Potassium 4.1 mmol/L (3.5-5.1); Protein, Total 7.1 g/dL (6.4-8.2); Sodium Level 135 mmol/L (136-145)
== END ==
PROVIDERS: Family Provider Family Medicine; PCP Family Medicine; Referring Provider Family Medicine; Visit Provider Family Medicine
DX: J18.1 Lobar pneumonia, unspecified organism (principal)
CPT/HCPCS: 36415; 71046; 80053; 85025; 85652; 86140

== ENCOUNTER 2019-05-13 17:09 | Inpatient (IN) | payer MEDICARE, OTHER, SELFPAY ==
[2019-05-09 14:16] VITALS: BMI 25.1
[2019-05-13 17:12] VITALS: BP 147/69; PULSE 74; RESP 19; TEMP 36.8; O2SAT 98; BMI 24.7
--- NOTE | 2019-05-13 17:41 | RAD_ITS ---
STUDY: X-RAY - LEFT FOOT CLINICAL: Male, 83 years old. Evaluate for infection TECHNIQUE: 3 view(s) of the foot. COMPARISON: None. FINDINGS: Osteopenia is present. There is diffuse soft swelling. There is no evidence of fracture or dislocation. Prominent degenerative changes are present at the first MTP joint. There are no radiodense foreign bodies. RAD/Foot min 3 Views IMPRESSION: No fracture or dislocation. Prominent degenerative changes at the first MTP joint. Osteopenia. Diffuse soft tissue swelling. No evidence of osteomyelitis. Electronically Signed: Vicente Bell, at 18:53 EDT Tel , Service support ,
--- NOTE | 2019-05-13 18:11 | ED.DCSUM_ITS ---
History of Present Illness Chief Complaint: Cellulitis Narrative: Patient presenting for evaluation secondary to cellulitis. Patient has a underlying history of paraplegia, and is been having issues with alternating cellulitis. Patient reports that he has had left leg cellulitis over the course of approximately last week. He was treated with a course of Levaquin for this and did not have any resolution. He has been having intermittent issues with confusion. He now reports that he has a blister on his foot and has been recommended by his primary care physician to come to the emergency department for admission for IV antibiotics. Review of systems otherwise negative. Past Medical History - Allergies and Home Meds Allergies/Adverse Reactions: Allergies Cephalosporins Allergy (Intermediate, Verified 05/13/19 17:10) Laryngospasms Penicillins Allergy (Intermediate, Verified 05/13/19 17:10) Rash IVP DYE Allergy (Uncoded 05/13/19 17:10) Rash Surgical History: - - Laminectomy 2006, 2007. 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 coli. 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 Smoking Status: Unknown if ever smoked - Family History Maternal Family History: Reports: - - , depression Paternal Family History: Reports: - - Offspring Family History: Reports: - - 2 children, 4 grand children, 1 great grandchild, all in good health Review of Systems All systems negative except as indicated General: Denies: Fever Skin: Reports: Rash Neurological: Reports: - - Baseline paraplegia Physical Exam Vital Signs/Narrative: Vital Signs Temp Pulse Resp BP Pulse Ox 05/13/19 17:12 98.2 F 74 19 H 147/69 H 98 General: Well nourished, Well developed, - - Sitting comfortably in his wheelchair reading Head: Normocephalic, Atraumatic Eyes: Perrl, EOMI Cardiovascular: Regular rate, Regular rhythm, No murmurs Respiratory: No distress, CTA bilaterally, Chest nontender Extremities: - - Left lower extremity exam shows significant cellulitis of the leg with erythema and induration with a blister over the dorsum of the patient's foot. Normal distal pulses. Decreased sensation at baseline. Skin: Rash Neurological: Alert, Oriented x3 Psychological: Normal affect Diagnostic/Tx/Re-eval - Medical Decision Making Patient presented with cellulitis this failing outpatient treatment. IV was established laboratory studies were obtained. These were found to be unremarkable. Foot x-ray shows no evidence of osteomyelitis or subcutaneous emphysema. Patient was started on vancomycin. Patient will be admitted on the hospitalist. ED Disposition - Plan for ED Patient: Disposition: Acute Care Hospital [facility] Diagnosis: Cellulitis, Failure of outpatient treatment
[2019-05-13 18:15] VITALS: BP 167/75; PULSE 74; RESP 16; TEMP 36.9; O2SAT 99
[2019-05-13 18:34] LABS: Absolute Lymphocyte Count 1.27 X10^3/ul (0.83-4.51); Absolute Neutrophil Count 5.2 X10^3/uL (2.0-7.7); Basophil# 0.03 X10^3/uL; Basophil% 0.4 % (0-1); Eosinophil# 0.21 X10^3/uL; Eosinophils% 2.8 % (0-5); Hematocrit 36.7 % (40-54); Hemoglobin 11.5 g/dl (13.0-16.5); Lymphocyte # 1.27 X10^3/ul (4.0); Lymphocyte % 17.2 % (19-41); Mean Corp Hgb Conc 31.3 g/gl (32-36); Mean Corpuscular Hgb 31.7 pg (27.0-32.0); Mean Corpuscular Volume 101.1 fL (80-94); Mean Platelet Vol. 9.6 fl (6.2-12.0); Monocyte# 0.62 X10^3/uL; Monocyte% 8.4 % (0-10); Neutrophil # 5.22 X10^3/uL (2.7-7.7); Neutrophil % 70.8 % (47-70); Platelet Count 211 K/mm3 (150-450); RBC Distribution Width CV 16.1 % (11.6-14.6); RBC Distribution Width SD 60.3 fl (35.1-43.9); Red Blood Count 3.63 M/mm3 (4.6-6.2); White Blood Count 7.4 K/mm3 (4.4-11.0)
[2019-05-13 18:36] LABS: POSITIVE COUNT NO; POSITIVE DIFFERENTIAL NO; POSITIVE MORPHOLOGY NO
--- NOTE | 2019-05-13 18:36 | HP.PCM_ITS ---
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 (5) HTN (hypertension) Status: Chronic Qualifiers: Hypertension type: essential hypertension Qualified Code(s): I10 - E ssential (primary) hypertension (6) PAD (peripheral artery disease) Status: Chronic (7) Paraplegia Status: Chronic Comment: due to transverse myelitis History of Present Illness Date of Admission: 05/13/19 Chief Complaint: LLE swelling The patient is a 83 year old M with pmhx of paraplegia 2/2 15 years prior having bacterial meningitis, transverse myelitis, also with hx of nocardia, osteomyelitis, multiple pressure injuries, UTIs, HTN, PAD, DVT with IVC filter, who presents to the ER with LLE infection. Recently he has been fighting a similar issue with his right foot, swelling erythema, diagnosed with cellulitis by his PCP and treated with levaquin. He was having fevers/chills at home however this resolved with levaquin that was Rxd by his PCP Dr. Melendez. He also has multiple pressure wounds that he has been receiving hyperbaric therapy for at the wound center - most worrisome being a wound on his buttocks. He is primarily here for the LLE - severe edema, erythema, and an open area with clear drainage on the dorsum of the foot. He also is treated at the wound center by Dr. Naranjo. He has swelling all the way up his thigh. He has a hx of wounds with multiple bacteria including pseudomonas with intermediate levaquin resistance but good susceptibility to cipro, MRSE, vanc suspeptice E faecalis, and Burkholderia. Urine frequently grows Citrobacter. He will be admitted for IV abx with wound care and ID consults. Xray pending. 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) Paralysis (Chronic) Other specified peripheral vascular diseases (Chronic) Unstageable pressure ulcer of left foot (Chronic) Unstageable pressure ulcer of right foot (Chronic) Ulcer of left lower extremity with fat layer exposed (Chronic) previously unstageable pressure ulcer Malnutrition (Chronic) Delayed wound healing (Chronic) Edema leg (Chronic) Paralysis (Chronic) Ulcer of right lower extremity with fat layer exposed (Chronic) previously unstageable pressure ulcer Osteomyelitis (Chronic) Chronic pain (Chronic) Nocardia infection (Chronic) 2004, right arm and left leg, continued suppressive therapy Transverse myelitis (Chronic) treated in 2005 as a result of E. Coli meningitis after placement of the initial CHIEF LIBRARIAN WORK WITH BLIND shunt. 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 Medical History: Medical History (Last Reviewed 08/13/18 @ 10:19 by Fernando Patterson MD) HTN (hypertension) (Chronic) I10 PAD (peripheral artery disease) (Chronic) I73.9 Paraplegia (Chronic) G82.20 due to transverse myelitis Non-STEMI (non-ST elevated myocardial infarction) (Resolved) I21.4 Allergies Cephalosporins Allergy (Intermediate, Verified 05/13/19 17:10) Laryngospasms Penicillins Allergy (Intermediate, Verified 05/13/19 17:10) Rash IVP DYE Allergy (Uncoded 05/13/19 17:10) Rash Home Medications: Ambulatory Orders Medication Instructions Recorded Losartan Potassium [Cozaar] 12.5 mg PO DAILY 01/12/16 Riboflavin (Vitamin B2) [Vitamin 300 mg PO DAILY@1700 11/10/16 B2] Ascorbic Acid [Vitamin C] 500 mg PO TID 07/05/18 Gabapentin [Neurontin] 600 mg PO TID 07/05/18 [place] Carbonate 150 mg PO TID 07/05/18 Furosemide [Lasix] 40 mg PO DAILY 08/11/18 Magnesium 500 mg PO BID 08/11/18 Sennosides/Docusate Sodium 2 each PO DAILY 08/11/18 [Senna-S Laxative Tablet] traZODone [Desyrel] 25 mg PO QHS 08/11/18 Collagenase [Santyl] 1 applic TOPICAL DAILY tube 08/14/18 Mineral Oil/Petrolatum,White 1 applic TOPICAL BID jar 08/14/18 [Eucerin] Atorvastatin Calcium [Lipitor] 40 mg PO QHS 11/06/18 Carvedilol [Coreg (Beta Krissy)] 3.125 mg PO BID 11/06/18 Clopidogrel Bisulfate [Plavix] 75 mg PO DAILY 11/06/18 Duloxetine Hcl [Cymbalta] 60 mg PO DAILY 11/06/18 Isosorbide Mononitrate 10 mg PO QHS 11/06/18 Morphine Sulfate [Morphine Sulfate 15 mg PO BID 11/06/18 ER] Multivitamins,Ther W-Minerals 1 tablet PO DAILY 11/06/18 [Multivitamin With Minerals] Nutritional Supplement [Fred - 1 packet PO BIDCM 11/06/18 [place] FLAVOR] Pyridoxine HCl [Vitamin B-6] 100 mg PO DAILY 11/06/18 Smz/Tmp Ds [Bactrim Ds] 1 tablet PO DAILY 11/06/18 Tamsulosin HCl [Flomax] 0.4 mg PO 1700 11/06/18 cycloBENZAPRine HCl [Flexeril] 2.5 mg PO QHS PRN 11/06/18 Surgical History: - - Laminectomy 2006, 2007. History of CHIEF LIBRARIAN WORK WITH BLIND shunt for subarachnoid hemorrhage which secondarily got infected with E. coli. 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 Psychiatric History: No pertinent psych hx Lives: Spouse/ Significant Other Smoking Status: Never smoker Tobacco Use: Non-smoker Alcohol: None Drugs: None - *Family History Maternal History Items: - - , depression Paternal History Items: - - Offspring History Items: - - 2 children, 4 grand children, 1 great grandchild, all in good health Review of Systems Constitutional: Reports: Chills, Fever, Malaise, Weakness. Denies: Weight Change HEENT: Denies: Head Aches, Sinus Congestion, Sinus Drainage Cardiovascular: Denies: Chest Pain, Palpitations Respiratory: Denies: Cough, Shortness of breath at rest, Sputum production Gastrointestinal: Denies: Abdominal Pain, Nausea, Vomiting Genitourinary: Denies: Dysuria Musculoskeletal: Denies: Joint Pain, Joint Tenderness Skin: Reports: Lesions, Skin Changes, Wounds. Denies: Rash Neurological: Denies: Numbness, Tingling, Focal weakness Psychiatric: Denies: Anxiety, Depression, Homicidal Ideations, Suicidal Ideations Hematologic/ Lymphatic: Denies: Easy Bruising, Easy Bleeding VTE Information - Inpt Only VTE Present on Admission: No VTE Mechan Device Prophylaxis: None VTE Pharm Prophylaxis ordered?: Yes Patient Problems: Active and Suspected Problems (Last Reviewed 08/13/18 @ 10:19 by Fernando Patterson MD) Cellulitis and abscess of foot (Acute) Cellulitis (Acute) - Physical Exam General: Alert, Oriented x3, Cooperative HEENT: Atraumatic, PERRLA, EOMI, Normocephalic Neck: Supple, No JVD, Negative Carotid Bruits Lungs: Clear to auscultation, Normal air movement Cardiovascular: Regular rate, No murmurs Abdomen: Bowel Sounds Present, Soft, Non Tender Extremities: Capillary Refill Less than 3 Seconds, Edema Skin: Ulcer/ Wound - erythema, no warmth, open area with serous drainage, severe edema, changes extending up to groin Musculoskeletal: No Tenderness to Palpation of Joints or Extremities Neurological: Cranial nerves II-XII grossly intact Psych/Mental Status: Normal Affect, Appropriate Vital Signs Temp Pulse Resp BP Pulse Ox 98.5 F 74 16 167/75 H 99 05/13/19 18:15 05/13/19 18:15 05/13/19 18:15 05/13/19 18:15 05/13/19 18:15 Oxygen Delivery Method Room Air Weight: 172 lb Body Mass Index (BMI) 24.7 Laboratory Tests Past 24 Hrs 05/13/19 05/13/19 05/13/19 18:00 18:00 18:14 WBC Pending RBC Pending Hgb Pending Hct Pending MCV Pending MCH Pending MCHC Pending RDW Pending RDW Differential Pending Plt Count Pending Neut % (Auto) Pending Absolute Neuts (auto) Pending Total Counted Pending Sodium Pending Potassium Pending Chloride Pending Carbon Dioxide Pending Anion Gap Pending BUN Pending Creatinine Pending Est GFR (MDRD) Af Amer Pending Est GFR (MDRD) Non-Af Pending BUN/Creatinine Ratio Pending Glucose Pending Lactic Acid Pending Calcium Pending Assessment/Plan All Active Problems (Last Reviewed 08/13/18 @ 10:19 by Fernando Patterson MD) Ulcer of right lower extremity with fat layer exposed (Resolved) Ulcer of left lower extremity with necrosis of muscle (Resolved) Hypergranulation (Acute) Chronic osteomyelitis involving left ankle and foot (Acute) Skin ulcer of left foot (Acute) Ulcer of right lower extremity, limited to breakdown of skin (Resolved) Ulcer of left lower extremity, limited to breakdown of skin (Acute) Cellulitis of right foot (Resolved) Ulcer of left lower extremity with fat layer exposed (Resolved) Chronic ulcer of left foot with fat layer exposed (Acute) Cellulitis and abscess of foot (Acute) Bacterial meningitis (Resolved) Cellulitis (Acute) Other chronic osteomyelitis,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 (Resolved) Ulcer of right foot with fat layer exposed (Resolved) Chronic ulcer of left foot with fat layer exposed (Resolved) Non-pressure chronic ulcer of other part of left foot with fat layer exposed (Acute) Non-pressure chronic ulcer of other part of right foot with fat layer exposed (Resolved) Acute encephalopathy (Acute) Non-STEMI (non-ST elevated myocardial infarction) (Resolved) 1. LLE cellulitis - no fever, no leukocytosis, however severe erythema, swelling, open wound and hx of wounds with pseudomonas, MRSE, enterobacter. Start Vanc and Cipro based on prior suspectibilities and the patients allergies to cephalosporins and penicillins. ID consult, wound care consult. Culture drainage. Xray pending. Hx osteo. Consider MRI depending on Xray results. Obtain blood cultures as well, and obtain MSSA/MRSA screen. Was on PO levaquin as an outpatient along with prophylactic bactrim which he states to prevent nocardia from returning. 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 2. Other chronic decubitus ulcers - wound care consult, and ongoing f/u with the wound care center for hyperbaric therapy 3. 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 PAD contributing to #1 - had arteriogram last fall - request records. 5. HTN/HLD - home meds 6. 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 As above DVT ppx: lovenox DC planning: PTOT evals. Wound care. May need home health. Fairly independent despite severe chronic issues This patient was seen by Avelino Moore PA-C under the supervision of Dr. Adkins.
--- NOTE | 2019-05-13 18:37 | ED.RN ---
CALLED PHARMACY REGARDING HOW THE ORDER WAS IN THE COMPUTER FOR THE VANCO.
[2019-05-13 18:39] LABS: Anion Gap 4 (5-15); BUN 17 mg/dL (7-18); BUN/Creat Ratio 18.2 RATIO (10-20); Calcium,Total 9.2 mg/dL (8.5-10.1); Chloride 101 mmol/L (98-107); Creatinine, Serum 0.93 mg/dL (0.70-1.30); EST Glomerular Filtration Rate 82 mL/min (>60); Est Glom Filt Rate - Afr Amer 100 mL/min (>60); Estimated Creatinine Clearance 64.32 ml/min; Glucose 114 mg/dL (74-106); Potassium 4.2 mmol/L (3.5-5.1); Sodium Level 139 mmol/L (136-145)
[2019-05-13 18:49] LABS: Lactic Acid 1.1 mmol/L (0.4-2.0)
[2019-05-13 19:00] VITALS: BP 161/83; PULSE 73; TEMP 36.9; O2SAT 97
[2019-05-13 19:56] VITALS: BMI 24.6
--- NOTE | 2019-05-13 20:18 | PCM.RX.CS ---
Consult Pharmacy has been consulted to manage selected antiobiotic: Vancomycin Type of Consult: New start Suspected Infection: Skin/Soft tissue Labs: Sodium 139 mmol/L (136-145) 05/13/19 18:00 Potassium 4.2 mmol/L (3.5-5.1) 05/13/19 18:00 Chloride 101 mmol/L (98-107) 05/13/19 18:00 Carbon Dioxide 34.0 mmol/L (21.0-32.0) H 05/13/19 18:00 Anion Gap 4 (5-15) L 05/13/19 18:00 BUN 17 mg/dL (7-18) 05/13/19 18:00 Creatinine 0.93 mg/dL (0.70-1.30) 05/13/19 18:00 Est GFR (MDRD) Af Amer 100 mL/min (>60) 05/13/19 18:00 Est GFR (MDRD) Non-Af 82 mL/min (>60) 05/13/19 18:00 BUN/Creatinine Ratio 18.2 RATIO (10-20) 05/13/19 18:00 Glucose 114 mg/dL (74-106) H 05/13/19 18:00 Weight used for dosin lb 11.841 oz Estimated Creatinine Clearance: 64 Goal Trough: 10-15 mcg/mL Pharmacy Plan for Drug Dosing: Pharmacy Service will continue to monitor and adjust dosing as required. Vancomycin 1250mg given in ED at 1900 Calculated dose of 750mg q12h to start 05/14 at 0700 Trough will be obtained 05-15 at 0630 Follow-Up Labs: Trough Vancomycin
[2019-05-13 20:19] VITALS: BMI 24.6
[2019-05-13 20:28] LABS: Magnesium 2.5 mg/dL (1.6-2.6)
[2019-05-13] MEDS: morphine SR 15 MG Tablet PO (21:09)
[2019-05-13] MEDS: Lithium Carbonate 150 MG Capsule PO (21:10)
[2019-05-13] MEDS: Atorvastatin Calcium 40 MG Tablet PO (21:10)
[2019-05-13] MEDS: Isosorbide Mononitrate 20 MG Tablet 10 MG PO (21:10)
[2019-05-13] MEDS: Ascorbic Acid 500 MG Tablet PO (21:10)
[2019-05-13] MEDS: Gabapentin 300 MG Capsule 600 MG PO (21:10)
[2019-05-13] MEDS: traZODone 50 MG Tablet 25 MG PO (21:10)
[2019-05-13] MEDS: Carvedilol 3.125 MG TABLET PO (21:10)
[2019-05-13] MEDS: Magnesium Oxide 400 MG Tablet PO (21:10)
[2019-05-13 21:25] VITALS: PULSE 73; RESP 16; O2SAT 97
[2019-05-13] MEDS: Ciprofloxacin 400 MG/200 ML BAG 200 MG IV (22:28)
[2019-05-13 22:29] LABS: M R Staph aureus DNA By PCR Negative (Negative); Probe Check PASS; Specimen Processing Control PASS; Staph aureus DNA By PCR NEGATIVE (Negative)
[2019-05-14] VITALS (7 sets, daily range): BP systolic 122–160; BP diastolic 56–79; PULSE 63–83; RESP 18; TEMP 36.7–37.3; O2SAT 98–99
[2019-05-14] MEDS: 0.9% NaCl IVPB Med Flush (250 mL) 15 ML IV ×2 (00:15→08:36)
[2019-05-14] MEDS: Lithium Carbonate 150 MG Capsule PO ×3 (06:16→21:53)
[2019-05-14] MEDS: Gabapentin 300 MG Capsule 600 MG PO ×3 (06:16→21:54)
[2019-05-14] MEDS: Ascorbic Acid 500 MG Tablet PO ×3 (06:16→21:58)
[2019-05-14] MEDS: HYDROcodone Bitartrate/Apap 5/325 Tablet PO (06:18)
[2019-05-14 06:55] LABS: Absolute Lymphocyte Count 1.31 X10^3/ul (0.83-4.51); Absolute Neutrophil Count 5.1 X10^3/uL (2.0-7.7); Basophil# 0.03 X10^3/uL; Basophil% 0.4 % (0-1); Eosinophil# 0.25 X10^3/uL; Eosinophils% 3.4 % (0-5); Hematocrit 31.9 % (40-54); Hemoglobin 9.9 g/dl (13.0-16.5); Lymphocyte # 1.31 X10^3/ul (4.0); Lymphocyte % 17.8 % (19-41); Mean Corpuscular Hgb 31.3 pg (27.0-32.0); Mean Corpuscular Volume 100.9 fL (80-94); Mean Platelet Vol. 9.6 fl (6.2-12.0); Monocyte# 0.63 X10^3/uL; Monocyte% 8.6 % (0-10); Neutrophil # 5.11 X10^3/uL (2.7-7.7); Neutrophil % 69.5 % (47-70); Platelet Count 175 K/mm3 (150-450); RBC Distribution Width CV 15.5 % (11.6-14.6); RBC Distribution Width SD 55.4 fl (35.1-43.9); Red Blood Count 3.16 M/mm3 (4.6-6.2); White Blood Count 7.4 K/mm3 (4.4-11.0)
[2019-05-14 06:57] LABS: POSITIVE COUNT NO; POSITIVE DIFFERENTIAL NO; POSITIVE MORPHOLOGY NO
[2019-05-14 07:11] LABS: Anion Gap 5 (5-15); BUN 13 mg/dL (7-18); BUN/Creat Ratio 19.7 RATIO (10-20); Calcium,Total 8.1 mg/dL (8.5-10.1); Chloride 107 mmol/L (98-107); Creatinine, Serum 0.66 mg/dL (0.70-1.30); EST Glomerular Filtration Rate 123 mL/min (>60); Est Glom Filt Rate - Afr Amer 149 mL/min (>60); Estimated Creatinine Clearance 59.82 ml/min; Glucose 89 mg/dL (74-106); Potassium 4.5 mmol/L (3.5-5.1); Sodium Level 141 mmol/L (136-145)
[2019-05-14] MEDS: Ciprofloxacin 400 MG/200 ML BAG 200 MG IV ×2 (09:41→21:45)
--- NOTE | 2019-05-14 10:23 | PCM.HP.ID ---
Problem List (1) Cellulitis Status: Acute Reason for Consult: cellulitis Consulted by: Dr. Adkins History of Present Illness: The patient is a 83 year old M with paraplegia, h/o nocardia, who presented with 3 days of L foot swelling, pain, redness, blistering, and drainage. Mild fever/chills at the start, some malaise. R foot recently healed, follows with Dr. Narnajo. Due to cough and concern for pneumonia, has been on levaquin outpt since 05/09. Due to worsening, came to ED 05/13, started on vanc/cipro, starting to feel a little better. Remains on indefinite bactrim as well. Full ROS performed and neg except as noted above. 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) Paralysis (Chronic) Other specified peripheral vascular diseases (Chronic) Unstageable pressure ulcer of left foot (Chronic) Unstageable pressure ulcer of right foot (Chronic) Ulcer of left lower extremity with fat layer exposed (Chronic) previously unstageable pressure ulcer Malnutrition (Chronic) Delayed wound healing (Chronic) Edema leg (Chronic) Paralysis (Chronic) Ulcer of right lower extremity with fat layer exposed (Chronic) previously unstageable pressure ulcer Osteomyelitis (Chronic) Chronic pain (Chronic) Nocardia infection (Chronic) 2004, right arm and left leg, continued suppressive therapy Transverse myelitis (Chronic) treated in 2005 as a result of E. Coli meningitis after placement of the initial NURSES SUPERVISOR shunt. 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 Allergies/Adverse Reactions: Allergies Cephalosporins Allergy (Intermediate, Verified 05/13/19 17:10) Laryngospasms Penicillins Allergy (Intermediate, Verified 05/13/19 17:10) Rash IVP DYE Allergy (Uncoded 05/13/19 17:10) Rash Home Medications: Ambulatory Orders Medication Instructions Recorded Riboflavin (Vitamin B2) [Vitamin 300 mg PO DAILY@1700 11/10/16 B2] Ascorbic Acid [Vitamin C] 500 mg PO TID 07/05/18 Gabapentin [Neurontin] 600 mg PO TID 07/05/18 [place] Carbonate 150 mg PO TID 07/05/18 Furosemide [Lasix] 40 mg PO DAILY 08/11/18 Magnesium 500 mg PO BID 08/11/18 Sennosides/Docusate Sodium 2 each PO DAILY 08/11/18 [Senna-S Laxative Tablet] traZODone [Desyrel] 25 mg PO QHS 08/11/18 Atorvastatin Calcium [Lipitor] 40 mg PO QHS 11/06/18 Carvedilol [Coreg (Beta Krissy)] 3.125 mg PO QHS 11/06/18 Duloxetine Hcl [Cymbalta] 60 mg PO DAILY 11/06/18 Isosorbide Mononitrate 10 mg PO QHS 11/06/18 Morphine Sulfate [Morphine Sulfate 15 mg PO BID 11/06/18 ER] Multivitamins,Ther W-Minerals 1 tablet PO DAILY 11/06/18 [Multivitamin With Minerals] Pyridoxine HCl [Vitamin B-6] 100 mg PO DAILY 11/06/18 Tamsulosin HCl [Flomax] 0.4 mg PO 1700 11/06/18 cycloBENZAPRine HCl [Flexeril] 5 mg PO QHS PRN 11/06/18 Docusate Sodium [Colace] 200 mg PO DAILY PRN PRN 05/13/19 Mineral Oil/Petrolatum,White 1 applic TOPICAL BID 05/13/19 [Eucerin] Sulfamethoxazole/Trimethoprim 1 tab PO DAILY 05/13/19 [Sulfamethoxazole-Tmp Ds Tablet] levoFLOXacin tablet [Levaquin 750 mg PO DAILY 05/13/19 tablet] - Social History SMOKING STATUS:: Never smoker Vital Signs Temp Pulse Resp BP Pulse Ox 98.4 F 63 18 132/64 H 99 05/14/19 08:23 05/14/19 08:23 05/14/19 08:23 05/14/19 08:23 05/14/19 08:23 Oxygen Delivery Method Room Air Weight: 77.9 kg Body Mass Index (BMI) 24.6 Microbiology Past 72 Hours 05/13/19 20:52 Gram Stain - Final Wound - Left Foot Laboratory Tests Past 24 Hrs 05/13/19 05/13/19 05/13/19 18:00 18:00 18:00 WBC 7.4 RBC 3.63 L Hgb 11.5 L Hct 36.7 L MCV 101.1 H MCH 31.7 MCHC 31.3 L RDW 16.1 H RDW Differential 60.3 H Plt Count 211 MPV 9.6 Immature Gran % (Auto) 0.400 Neut % (Auto) 70.8 H Lymph % (Auto) 17.2 L [place] % (Auto) 8.4 Eos % (Auto) 2.8 Baso % (Auto) 0.4 Absolute Neuts (auto) 5.2 Absolute Lymphs (auto) 1.27 Total Counted Not Reportable Sodium 139 Potassium 4.2 Chloride 101 Carbon Dioxide 34.0 H Anion Gap 4 L BUN 17 Creatinine 0.93 Estim Creat Clear Calc 64.32 Est GFR (MDRD) Af Amer 100 Est GFR (MDRD) Non-Af 82 BUN/Creatinine Ratio 18.2 Glucose 114 H Lactic Acid Calcium 9.2 Magnesium 2.5 S.aureus Protein A PCR MRSA (PCR) 05/13/19 05/13/19 05/14/19 18:14 20:52 05:58 WBC 7.4 RBC 3.16 L Hgb 9.9 L Hct 31.9 L MCV 100.9 H MCH 31.3 MCHC 31.0 L RDW 15.5 H RDW Differential 55.4 H Plt Count 175 MPV 9.6 Immature Gran % (Auto) 0.300 Neut % (Auto) 69.5 Lymph % (Auto) 17.8 L [place] % (Auto) 8.6 Eos % (Auto) 3.4 Baso % (Auto) 0.4 Absolute Neuts (auto) 5.1 Absolute Lymphs (auto) 1.31 Total Counted Not Reportable Sodium Potassium Chloride Carbon Dioxide Anion Gap BUN Creatinine Estim Creat Clear Calc Est GFR (MDRD) Af Amer Est GFR (MDRD) Non-Af BUN/Creatinine Ratio Glucose Lactic Acid 1.1 Calcium Magnesium S.aureus Protein A PCR NEGATIVE MRSA (PCR) Negative 05/14/19 05:58 WBC RBC Hgb Hct MCV MCH MCHC RDW RDW Differential Plt Count MPV Immature Gran % (Auto) Neut % (Auto) Lymph % (Auto) [place] % (Auto) Eos % (Auto) Baso % (Auto) Absolute Neuts (auto) Absolute Lymphs (auto) Total Counted Sodium 141 Potassium 4.5 Chloride 107 Carbon Dioxide 29.0 Anion Gap 5 BUN 13 Creatinine 0.66 L Estim Creat Clear Calc 59.82 Est GFR (MDRD) Af Amer 149 Est GFR (MDRD) Non-Af 123 BUN/Creatinine Ratio 19.7 Glucose 89 Lactic Acid Calcium 8.1 L Magnesium S.aureus Protein A PCR MRSA (PCR) - Other Studies Radiology: [] reviewed Other Studies: [] Route of nutrition/ use of supplements: [] Nutritional Intake: [] IV Site: [] Wheeler Catheter: [] - Physical Exam General: Alert, Oriented x3, Cooperative HEENT: Atraumatic, PERRLA, EOMI Neck: Supple, No Nodes Lungs: Clear to auscultation, Normal air movement Cardiovascular: Regular rate, Regular Rhythm Abdomen: Soft, Non Tender, Non-Distended Extremities: Edema - mild Skin: Ulcer/ Wound - wrapped, reviewed photos IV Site: Peripheral, without redness Neurological: Cranial nerves II-XII grossly intact - Assessment/Plan Antibiotics: [] Assessment/Plan: [] Active and Suspected Problems (Last Reviewed 08/13/18 @ 10:19 by Fernando Patterson MD) Cellulitis and abscess of foot (Acute) Cellulitis (Acute) Failure of outpatient treatment (Acute) L foot cellulitis - on vanc/cipro. Will consult Dr. Naranjo for eval. Will follow, thank you.
[2019-05-14] MEDS: Carvedilol 3.125 MG TABLET PO ×2 (10:41→21:54)
[2019-05-14] MEDS: DULoxetine Hcl 60 MG Capsule PO (10:42)
[2019-05-14] MEDS: morphine SR 15 MG Tablet PO ×2 (10:42→22:05)
[2019-05-14] MEDS: Senna/Docusate Sodium 1 Tablet 2 TABLET PO (10:42)
[2019-05-14] MEDS: Magnesium Oxide 400 MG Tablet PO ×2 (10:42→21:53)
[2019-05-14] MEDS: Furosemide 40 MG Tablet PO (10:42)
[2019-05-14] MEDS: Multivitamins,Ther W-Minerals Tablet 1 TABLET PO (10:42)
--- NOTE | 2019-05-14 12:07 | NURSING ---
wound photo: left buttock
--- NOTE | 2019-05-14 12:08 | NURSING ---
wound photo: right lateral malleolus
--- NOTE | 2019-05-14 12:09 | NURSING ---
wound photo: right dorsal foot
--- NOTE | 2019-05-14 12:10 | NURSING ---
wound photo: left foot/leg
--- NOTE | 2019-05-14 12:10 | NURSING ---
wound photo: left foot/leg
--- NOTE | 2019-05-14 12:31 | CASEMGMT ---
RN CM Assessment Presentation: LLE cellulitis. Open wound and hx of wounds with pseudomonas. Dr. Naranjo to see, ID on consult. Intro role of CM and purpose of RN CM assessment to patient and his son in room. Pt is awake, alert and very interested in participating in CM assessment. Pt went into great detail re: home environment, care equipment and plans on returning home. Demographics, PCP and Pharmacy verified. PCP: Dr. Eris Melendez Specialists: Dr. Naranjo, podiatry, Dr. Robert, ID Preferred [facility]acy: [facility] Insurance: [facility] Prescription Benefit: yes LNOK: , Lucille Sabillon Living Arrangements: Lives in one story home with . Pt is paraplegic, uses motorized wc. Has ramp into home and states does not have need for any other assistive equipment. assists and pt has aides through [employer] to help. Pt will call company himself on dc to resume aide assistants. is going on trip to [place]. Pt has made arrangements for more aide assistants during this time, and son states he will be available to help. Transportation: Has WC accessible van with ramp. Family assists with driving. DME: Sit/Stand assist device, lift chair, motoroized wheelchair, Ramp into home, roll in shower, shower bench and grab bars. HHC: [facility] in past. If HHS is needed on DC, pt would like [facility] if possible. Patient DC goals: Home on dc DC PLAN: Anticipate home. May need Home Health for dressing changes and if IV antibiotics are ordered, pt states he can do at home and and son are willing to learn. CM will continue to follow for dc planning needs. Dajuan GALARZAN RN ACM
--- NOTE | 2019-05-14 13:02 | CASEMGMT ---
Addendum entered by Nahomy Esposito 05/14/19 14:02: SW spoke w/Nallely at [facility], palliative can meet w/pt and family at 1pm tomorrow. SW let pt and know that palliative can see him tomorrow at 1pm, they are in agreement. Also, pt was to see [facility]aranjo [facility], was going to cancel appt. SW offered to call and cancel, they are agreeable to this. SW called the [facility] and cancelled the appointment. SEBASTIÁN Hazel Original Note: As per CM, pt is interested in speaking w/palliative care. SW spoke w/pt, he would like his here and would like to meet w/palliative tomorrow if possible. SW called, spoke w/Nallely, faxed referral. She is to let this SW know when someone is able to come meet w/pt and . SEBASTIÁN Hzael
[2019-05-14] MEDS: 0.9% NaCl Peripheral Flush Adult/Peds IV ×2 (13:57→18:36)
--- NOTE | 2019-05-14 14:33 | PCM.PROGNOTE ---
<Avelino Moore - Last Filed: 05/14/19 14:33> Patient Problems: Active and Suspected Problems (Last Reviewed 08/13/18 @ 10:19 by Fernando Patterson MD) Cellulitis and abscess of foot (Acute) Cellulitis (Acute) Failure of outpatient treatment (Acute) Subjective: Minimal improvement in swelling, severity and area of erythema. No fevers/chills. No cough/SOB. Otherwise doing well and in NAD. - Physical Exam General: Alert, Oriented x3, Cooperative HEENT: Atraumatic, PERRLA, EOMI, Normocephalic Neck: Supple, No JVD, Negative Carotid Bruits Lungs: Clear to auscultation, Normal air movement Cardiovascular: Regular rate, No murmurs Abdomen: Bowel Sounds Present, Soft, Non Tender Extremities: Capillary Refill Less than 3 Seconds, Edema Skin: Ulcer/ Wound - minimal change Musculoskeletal: No Tenderness to Palpation of Joints or Extremities, - - paraplegic Neurological: Cranial nerves II-XII grossly intact Psych/Mental Status: Normal Affect, Appropriate, Alert and oriented to time, place, person, mood and affect Vital Signs Temp Pulse Resp BP Pulse Ox 98.4 F 63 18 132/64 H 99 05/14/19 08:23 05/14/19 08:23 05/14/19 08:23 05/14/19 08:23 05/14/19 08:23 Oxygen Delivery Method Room Air Weight: 171 lb 11.841 oz Body Mass Index (BMI) 24.6 Intake and Output for Last 24 Hours 05/12/19 05/13/19 05/14/19 23:59 23:59 23:59 Intake Total 2443 / 2443 Output Total 1175 / 1175 Balance 1268 / 1268 Microbiology Past 72 Hours 05/13/19 20:52 Gram Stain - Final Wound - Left Foot Laboratory Tests Past 24 Hrs 05/13/19 05/13/19 05/13/19 18:00 18:00 18:00 WBC 7.4 RBC 3.63 L Hgb 11.5 L Hct 36.7 L MCV 101.1 H MCH 31.7 MCHC 31.3 L RDW 16.1 H RDW Differential 60.3 H Plt Count 211 MPV 9.6 Immature Gran % (Auto) 0.400 Neut % (Auto) 70.8 H Lymph % (Auto) 17.2 L [place] % (Auto) 8.4 Eos % (Auto) 2.8 Baso % (Auto) 0.4 Absolute Neuts (auto) 5.2 Absolute Lymphs (auto) 1.27 Total Counted Not Reportable Sodium 139 Potassium 4.2 Chloride 101 Carbon Dioxide 34.0 H Anion Gap 4 L BUN 17 Creatinine 0.93 Estim Creat Clear Calc 64.32 Est GFR (MDRD) Af Amer 100 Est GFR (MDRD) Non-Af 82 BUN/Creatinine Ratio 18.2 Glucose 114 H Lactic Acid Calcium 9.2 Magnesium 2.5 S.aureus Protein A PCR MRSA (PCR) 05/13/19 05/13/19 05/14/19 18:14 20:52 05:58 WBC 7.4 RBC 3.16 L Hgb 9.9 L Hct 31.9 L MCV 100.9 H MCH 31.3 MCHC 31.0 L RDW 15.5 H RDW Differential 55.4 H Plt Count 175 MPV 9.6 Immature Gran % (Auto) 0.300 Neut % (Auto) 69.5 Lymph % (Auto) 17.8 L [place] % (Auto) 8.6 Eos % (Auto) 3.4 Baso % (Auto) 0.4 Absolute Neuts (auto) 5.1 Absolute Lymphs (auto) 1.31 Total Counted Not Reportable Sodium Potassium Chloride Carbon Dioxide Anion Gap BUN Creatinine Estim Creat Clear Calc Est GFR (MDRD) Af Amer Est GFR (MDRD) Non-Af BUN/Creatinine Ratio Glucose Lactic Acid 1.1 Calcium Magnesium S.aureus Protein A PCR NEGATIVE MRSA (PCR) Negative 05/14/19 05:58 WBC RBC Hgb Hct MCV MCH MCHC RDW RDW Differential Plt Count MPV Immature Gran % (Auto) Neut % (Auto) Lymph % (Auto) [place] % (Auto) Eos % (Auto) Baso % (Auto) Absolute Neuts (auto) Absolute Lymphs (auto) Total Counted Sodium 141 Potassium 4.5 Chloride 107 Carbon Dioxide 29.0 Anion Gap 5 BUN 13 Creatinine 0.66 L Estim Creat Clear Calc 59.82 Est GFR (MDRD) Af Amer 149 Est GFR (MDRD) Non-Af 123 BUN/Creatinine Ratio 19.7 Glucose 89 Lactic Acid Calcium 8.1 L Magnesium S.aureus Protein A PCR MRSA (PCR) Medical Necessity - Tobacco Use Smoking Status: Unknown if ever smoked Tobacco Use: Non-smoker Assessment/Plan All Active Problems (Last Reviewed 08/13/18 @ 10:19 by Fernando Patterson MD) Ulcer of right lower extremity with fat layer exposed (Resolved) Ulcer of left lower extremity with necrosis of muscle (Resolved) Hypergranulation (Acute) Chronic osteomyelitis involving left ankle and foot (Acute) Skin ulcer of left foot (Acute) Ulcer of right lower extremity, limited to breakdown of skin (Resolved) Ulcer of left lower extremity, limited to breakdown of skin (Acute) Cellulitis of right foot (Resolved) Ulcer of left lower extremity with fat layer exposed (Resolved) Chronic ulcer of left foot with fat layer exposed (Acute) Cellulitis and abscess of foot (Acute) Bacterial meningitis (Resolved) Cellulitis (Acute) Failure of outpatient treatment (Acute) Other chronic osteomyelitis,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 (Resolved) Ulcer of right foot with fat layer exposed (Resolved) Chronic ulcer of left foot with fat layer exposed (Resolved) Non-pressure chronic ulcer of other part of left foot with fat layer exposed (Acute) Non-pressure chronic ulcer of other part of right foot with fat layer exposed (Resolved) Acute encephalopathy (Acute) Non-STEMI (non-ST elevated myocardial infarction) (Resolved) 1. LLE cellulitis - follow wound cultures - prelim with very rare GPC. ID following. Podiatry consult added. Xray without evidence of osteo. Does have hx of osteo multiple times. MRSA/MSSA screen negative. Hx pseudomonas, MRSE, Enterobacter. See prior wound cultures. -venous US pending. 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 2. Other chronic decubitus ulcers - wound care consult, and ongoing f/u with the wound care center for hyperbaric therapy 3. 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 PAD contributing to #1 - had arteriogram last fall - request records. 5. HTN/HLD - home meds 6. 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 8. Chronic anemia - trend blood counts. DVT ppx: lovenox DC planning: PTOT evals. Wound care. May need home health. Fairly independent despite severe chronic issues This patient was seen by Avelino Moore PA-C under the supervision of Rafiq Brunson - Last Filed: 05/14/19 17:55> Subjective: Patient seen and examined. Patient has increased erythema, tenderness of left leg. 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 Or chills. Patient has multiple pressors for with history of osteomyelitis and frequent UTI and cellulitis. With a history of DVT and peripheral arterial disease status post IVC filter. - Physical Exam General: Alert, Oriented x3, Cooperative HEENT: Atraumatic, PERRLA, EOMI, Normocephalic Neck: Supple, No JVD, Negative Carotid Bruits Lungs: Clear to auscultation, No rhonchi, No wheeze, No rales, Diminished Cardiovascular: Regular rate, Regular Rhythm, Normal S1, Normal S2, No murmurs Abdomen: Bowel Sounds Present, Soft, Non Tender Extremities: Capillary Refill Less than 3 Seconds, Edema Skin: Ulcer/ Wound - minimal change Generalized erythema and tenderness over left leg. Ecchymosis present. Pressure ulcer present over right lateral malleolus, Musculoskeletal: No Tenderness to Palpation of Joints or Extremities Neurological: Cranial nerves II-XII grossly intact Psych/Mental Status: Normal Affect, Appropriate Vital Signs Temp Pulse Resp BP Pulse Ox 98.7 F 63 18 122/56 H 98 05/14/19 14:57 05/14/19 14:57 05/14/19 14:57 05/14/19 14:57 05/14/19 14:57 Oxygen Delivery Method Room Air Weight: 171 lb 11.841 oz Body Mass Index (BMI) 24.6 Intake and Output for Last 24 Hours 05/12/19 05/13/19 05/14/19 23:59 23:59 23:59 Intake Total 2443 / 2443 Output Total 1974 / 1974 Balance 468 / 468 Microbiology Past 72 Hours 05/13/19 20:52 Gram Stain - Final Wound - Left Foot Laboratory Tests Past 24 Hrs 05/13/19 05/13/19 05/13/19 18:00 18:00 18:00 WBC 7.4 RBC 3.63 L Hgb 11.5 L Hct 36.7 L MCV 101.1 H MCH 31.7 MCHC 31.3 L RDW 16.1 H RDW Differential 60.3 H Plt Count 211 MPV 9.6 Immature Gran % (Auto) 0.400 Neut % (Auto) 70.8 H Lymph % (Auto) 17.2 L [place] % (Auto) 8.4 Eos % (Auto) 2.8 Baso % (Auto) 0.4 Absolute Neuts (auto) 5.2 Absolute Lymphs (auto) 1.27 Total Counted Not Reportable Sodium 139 Potassium 4.2 Chloride 101 Carbon Dioxide 34.0 H Anion Gap 4 L BUN 17 Creatinine 0.93 Estim Creat Clear Calc 64.32 Est GFR (MDRD) Af Amer 100 Est GFR (MDRD) Non-Af 82 BUN/Creatinine Ratio 18.2 Glucose 114 H Lactic Acid Calcium 9.2 Magnesium 2.5 S.aureus Protein A PCR MRSA (PCR) 05/13/19 05/13/19 05/14/19 18:14 20:52 05:58 WBC 7.4 RBC 3.16 L Hgb 9.9 L Hct 31.9 L MCV 100.9 H MCH 31.3 MCHC 31.0 L RDW 15.5 H RDW Differential 55.4 H Plt Count 175 MPV 9.6 Immature Gran % (Auto) 0.300 Neut % (Auto) 69.5 Lymph % (Auto) 17.8 L [place] % (Auto) 8.6 Eos % (Auto) 3.4 Baso % (Auto) 0.4 Absolute Neuts (auto) 5.1 Absolute Lymphs (auto) 1.31 Total Counted Not Reportable Sodium Potassium Chloride Carbon Dioxide Anion Gap BUN Creatinine Estim Creat Clear Calc Est GFR (MDRD) Af Amer Est GFR (MDRD) Non-Af BUN/Creatinine Ratio Glucose Lactic Acid 1.1 Calcium Magnesium S.aureus Protein A PCR NEGATIVE MRSA (PCR) Negative 05/14/19 05:58 WBC RBC Hgb Hct MCV MCH MCHC RDW RDW Differential Plt Count MPV Immature Gran % (Auto) Neut % (Auto) Lymph % (Auto) [place] % (Auto) Eos % (Auto) Baso % (Auto) Absolute Neuts (auto) Absolute Lymphs (auto) Total Counted Sodium 141 Potassium 4.5 Chloride 107 Carbon Dioxide 29.0 Anion Gap 5 BUN 13 Creatinine 0.66 L Estim Creat Clear Calc 59.82 Est GFR (MDRD) Af Amer 149 Est GFR (MDRD) Non-Af 123 BUN/Creatinine Ratio 19.7 Glucose 89 Lactic Acid Calcium 8.1 L Magnesium S.aureus Protein A PCR MRSA (PCR) Assessment/Plan This patient was seen in conjunction with Avelino CASTELLON. I have independently interviewed and examined the patient and reviewed pertinent history, examination findings, laboratory and plan of management. I have reviewed the note and agree with the documented findings with the few additional points. In brief, patient is admitted for complicated left lower extremity cellulitis in view of recurrent cellulitis, history of Nocardia infection in 2005. Patient also has history of DVT status post IVC filter and peripheral arterial disease. Podiatry has been consulted. History of Pseudomonas, MRSA, MRSE and Enterobacter in previous wound culture. Patient seen by ID and recommended to continue Vanco and Zosyn. Discussed with the wound nurse. She has chronic comorbidities with paraplegia secondary to transverse myelitis and bacterial meningitis about 15 years ago. Patient uses self-catheterization for urinary incontinence. I have discussed my assessment with Avelino CASTELLON and orders have been reviewed. Code Visit Inpatient E&M: 36333 Subs Hosp L3
[2019-05-14] MEDS: Tamsulosin HCl 0.4 MG Capsule PO (17:08)
--- NOTE | 2019-05-14 18:40 | CON.PCM_ITS ---
Reason for Consult Date of Consultation: 05/14/19 Reason for Consultation: Left foot infection/cellulitis History of Present Illness: The patient is a 83 year old gentleman with history of paraplegia, HTN, PAD and previous osteomyelitis was seen today for left foot infection. Patient relates tubigrip caused wound on left foot, and subsequently he developed swelling and redness to the foot and leg. He saw Dr. Melendez his PCP and due to the extent of the infection was sent to the hospital for admission. Patient has been started on IV antibiotic per Infectious Disease. Patient following at wound center with Dr. Naranjo for healing ulcerations and prior to this set back has been doing well and healing. Patient is resting comfortably in bed, no leukocytosis and afebrile. Patient's it at bedside. Past Medical History Past Medical History (Chronic Problems): Chronic Problems (Last Reviewed 08/13/18 @ 10:19 by Fernando Patterson MD) Non-pressure chronic ulcer of left lower leg with fat layer exposed (Chronic) Ulcer of right lower extremity with fat layer exposed (Chronic) Ulcer of right lower extremity with necrosis of muscle (Chronic) 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) Paralysis (Chronic) Other specified peripheral vascular diseases (Chronic) Unstageable pressure ulcer of left foot (Chronic) Unstageable pressure ulcer of right foot (Chronic) Ulcer of left lower extremity with fat layer exposed (Chronic) previously unstageable pressure ulcer Malnutrition (Chronic) Delayed wound healing (Chronic) Edema leg (Chronic) Paralysis (Chronic) Ulcer of right lower extremity with fat layer exposed (Chronic) previously unstageable pressure ulcer Osteomyelitis (Chronic) Chronic pain (Chronic) Nocardia infection (Chronic) 2004, right arm and left leg, 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 Medical History: Medical History (Last Reviewed 08/13/18 @ 10:19 by Fernando Patterson MD) HTN (hypertension) (Chronic) I10 PAD (peripheral artery disease) (Chronic) I73.9 Paraplegia (Chronic) G82.20 due to transverse myelitis Non-STEMI (non-ST elevated myocardial infarction) (Resolved) I21.4 Allergies Cephalosporins Allergy (Intermediate, Verified 05/13/19 17:10) Laryngospasms Penicillins Allergy (Intermediate, Verified 05/13/19 17:10) Rash IVP DYE Allergy (Uncoded 05/13/19 17:10) Rash Home Medications: Ambulatory Orders Medication Instructions Recorded Riboflavin (Vitamin B2) [Vitamin 300 mg PO DAILY@1700 11/10/16 B2] Ascorbic Acid [Vitamin C] 500 mg PO TID 07/05/18 Gabapentin [Neurontin] 600 mg PO TID 07/05/18 [place] Carbonate 150 mg PO TID 07/05/18 Furosemide [Lasix] 40 mg PO DAILY 08/11/18 Magnesium 500 mg PO BID 08/11/18 Sennosides/Docusate Sodium 2 each PO DAILY 08/11/18 [Senna-S Laxative Tablet] traZODone [Desyrel] 25 mg PO QHS 08/11/18 Atorvastatin Calcium [Lipitor] 40 mg PO QHS 11/06/18 Carvedilol [Coreg (Beta Krissy)] 3.125 mg PO QHS 11/06/18 Duloxetine Hcl [Cymbalta] 60 mg PO DAILY 11/06/18 Isosorbide Mononitrate 10 mg PO QHS 11/06/18 Morphine Sulfate [Morphine Sulfate 15 mg PO BID 11/06/18 ER] Multivitamins,Ther W-Minerals 1 tablet PO DAILY 11/06/18 [Multivitamin With Minerals] Pyridoxine HCl [Vitamin B-6] 100 mg PO DAILY 11/06/18 Tamsulosin HCl [Flomax] 0.4 mg PO 1700 11/06/18 cycloBENZAPRine HCl [Flexeril] 5 mg PO QHS PRN 11/06/18 Docusate Sodium [Colace] 200 mg PO DAILY PRN PRN 05/13/19 Mineral Oil/Petrolatum,White 1 applic TOPICAL BID 05/13/19 [Eucerin] Sulfamethoxazole/Trimethoprim 1 tab PO DAILY 05/13/19 [Sulfamethoxazole-Tmp Ds Tablet] levoFLOXacin tablet [Levaquin 750 mg PO DAILY 05/13/19 tablet] Surgical History: - - Laminectomy 2006, 2007. 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 coli. 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 Psychiatric History: No pertinent psych hx Lives: Spouse/ Significant Other Smoking Status: Unknown if ever smoked Tobacco Use: Non-smoker Alcohol: None Drugs: None - *Family History Maternal History Items: - - , depression Paternal History Items: - - Offspring History Items: - - 2 children, 4 grand children, 1 great grandchild, all in good health Patient Problems: Active and Suspected Problems (Last Reviewed 08/13/18 @ 10:19 by Fernando Patterson MD) Cellulitis and abscess of foot (Acute) Cellulitis (Acute) Failure of outpatient treatment (Acute) - Physical Exam General: Alert, Oriented x3, Cooperative, No apparent distress Extremities: Capillary Refill Less than 3 Seconds, No Calf Tenderness, - - Left foot: Pressure ulceration with some overlying nonviable/necrotic tissue dorsal / dorsal medial foot with serous drainage, down to dermal layer, there is cellulitis and edema extending to just below knee, there is no maloder, no fluctuance, no crepitus, no visible abscess noted, no probe to bone or deeper tissue. Chronic PAD bilateral but no evidence of acute ischemia otherwise bilateral foot/ankle. No other open lesions left foot, ankle or leg. Right foot dressed with gauze bandage, reviewed picture and dry eschar lateral ankle and small area of pressure irritation dorsal foot with no evidence of infection. Motor function significant diminished/absent bilateral lower extremity - chronic. Sensation significantly decreased bilateral lower extremity - chronic. Vital Signs Temp Pulse Resp BP Pulse Ox 98.7 F 63 18 122/56 H 98 05/14/19 14:57 05/14/19 14:57 05/14/19 14:57 05/14/19 14:57 05/14/19 14:57 Oxygen Delivery Method Room Air Weight: 77.9 kg Body Mass Index (BMI) 24.6 Intake and Output for Last 24 Hours 05/12/19 05/13/19 05/14/19 23:59 23:59 23:59 Intake Total 2443 / 2443 Output Total 1974 / 1974 Balance 468 / 468 Microbiology Past 72 Hours 05/13/19 20:52 Gram Stain - Final Wound - Left Foot Laboratory Tests Past 24 Hrs 05/13/19 05/13/19 05/13/19 18:00 18:14 20:52 WBC RBC Hgb Hct MCV MCH MCHC RDW RDW Differential Plt Count MPV Immature Gran % (Auto) Neut % (Auto) Lymph % (Auto) [place] % (Auto) Eos % (Auto) Baso % (Auto) Absolute Neuts (auto) Absolute Lymphs (auto) Total Counted Sodium Potassium Chloride Carbon Dioxide Anion Gap BUN Creatinine Estim Creat Clear Calc Est GFR (MDRD) Af Amer Est GFR (MDRD) Non-Af BUN/Creatinine Ratio Glucose Lactic Acid 1.1 Calcium Magnesium 2.5 S.aureus Protein A PCR NEGATIVE MRSA (PCR) Negative 05/14/19 05/14/19 05:58 05:58 WBC 7.4 RBC 3.16 L Hgb 9.9 L Hct 31.9 L MCV 100.9 H MCH 31.3 MCHC 31.0 L RDW 15.5 H RDW Differential 55.4 H Plt Count 175 MPV 9.6 Immature Gran % (Auto) 0.300 Neut % (Auto) 69.5 Lymph % (Auto) 17.8 L [place] % (Auto) 8.6 Eos % (Auto) 3.4 Baso % (Auto) 0.4 Absolute Neuts (auto) 5.1 Absolute Lymphs (auto) 1.31 Total Counted Not Reportable Sodium 141 Potassium 4.5 Chloride 107 Carbon Dioxide 29.0 Anion Gap 5 BUN 13 Creatinine 0.66 L Estim Creat Clear Calc 59.82 Est GFR (MDRD) Af Amer 149 Est GFR (MDRD) Non-Af 123 BUN/Creatinine Ratio 19.7 Glucose 89 Lactic Acid Calcium 8.1 L Magnesium S.aureus Protein A PCR MRSA (PCR) Assessment/Plan All Active Problems (Last Reviewed 08/13/18 @ 10:19 by Fernando Patterson MD) Ulcer of right lower extremity with fat layer exposed (Resolved) Ulcer of left lower extremity with necrosis of muscle (Resolved) Hypergranulation (Acute) Chronic osteomyelitis involving left ankle and foot (Acute) Skin ulcer of left foot (Acute) Ulcer of right lower extremity, limited to breakdown of skin (Resolved) Ulcer of left lower extremity, limited to breakdown of skin (Acute) Cellulitis of right foot (Resolved) Ulcer of left lower extremity with fat layer exposed (Resolved) Chronic ulcer of left foot with fat layer exposed (Acute) Cellulitis and abscess of foot (Acute) Bacterial meningitis (Resolved) Cellulitis (Acute) Failure of outpatient treatment (Acute) Other chronic osteomyelitis,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 (Resolved) Ulcer of right foot with fat layer exposed (Resolved) Chronic ulcer of left foot with fat layer exposed (Resolved) Non-pressure chronic ulcer of other part of left foot with fat layer exposed (Acute) Non-pressure chronic ulcer of other part of right foot with fat layer exposed (Resolved) Acute encephalopathy (Acute) Non-STEMI (non-ST elevated myocardial infarction) (Resolved) Pressure ulcer left dorsal/dorsal medial foot with cellulitis left lower extremity Reviewed diagnostic data. Culture has already been obtained and results pending. Continue with antibiotics per ID service. Wound left foot was debrided in selective fashion removing nonviable tissue, this extended down to the dermal layer, no deep probing or tracking noted. A dressing of adaptic, and gauze dressing applied with overlying light clara bandage. Change daily. Given history of osteomyelitis an MRI was ordered for further evaluation. Keep ankles, feet and heels offloaded at all times. Continue with wound care right foot. Medical management per medicine team. Podiatry will continue to follow. Thank you for consultation.
[2019-05-14] MEDS: traZODone 50 MG Tablet 25 MG PO (21:53)
[2019-05-14] MEDS: Atorvastatin Calcium 40 MG Tablet PO (21:54)
[2019-05-14] MEDS: Isosorbide Mononitrate 20 MG Tablet 10 MG PO (21:55)
[2019-05-14] MEDS: cycloBENZAPRine HCl 10 MG Tablet 2.5 MG PO (22:03)
[2019-05-15 03:00] VITALS: BP 138/66; PULSE 68; RESP 16; TEMP 36.9; O2SAT 96
[2019-05-15] MEDS: Gabapentin 300 MG Capsule 600 MG PO ×3 (06:00→22:57)
[2019-05-15] MEDS: Ascorbic Acid 500 MG Tablet PO ×3 (06:00→22:56)
[2019-05-15] MEDS: Lithium Carbonate 150 MG Capsule PO ×3 (06:00→22:56)
--- NOTE | 2019-05-15 06:20 | PN_ITS ---
Patient Problems: Active and Suspected Problems (Last Reviewed 08/13/18 @ 10:19 by Fernando Patterson MD) Cellulitis and abscess of foot (Acute) Cellulitis (Acute) Failure of outpatient treatment (Acute) Subjective: This 83-year-old male was seen bedside for right ankle eschar and left dorsal foot ulcer with associated cellulitis to left lower extremity. He denies pain, fever, chill, nausea, vomiting, or odor. He thinks his redness is decreasing. He is started on antibiotics upon admission. The onset of this condition is wi thin the last week. He is resting comfortably with pillows and proper offloading arrangement. - Physical Exam General: Alert, Oriented x3, Cooperative HEENT: Atraumatic Extremities: No cyanosis, Capillary Refill Less than 3 Seconds, No Calf Tenderness - Negative creatinine bilateral, Diminished Peripheral Pulses, Edema - Moderate bilateral lower extremities left more than right Skin: Ulcer/ Wound - Dorsal left forefoot measures pre-debridement: 1.7 x 6.1 x 0.1 cm and post debridement 1.8 x 6.2 x 0.1 cm with granular and sub-hemorrhagic base. Erythema intensity is diffuse and scant and is reported to be decreased compared to yesterday. Lateral right ankle eschar is well adhered and measures approximately 1.8 x 1.2 cm. There is no fluctuance, purulence on expression, odor, deep probing visualized., - - Skin is hairless and atrophic bilateral lower extremities. No interdigital maceration bilateral foot Musculoskeletal: No Tenderness to Palpation of Joints or Extremities, Muscle Wasting, - - Bilateral lower extreme any paralysis noted. Compartments soft to palpate bilateral lower extremities Neurological: - - Lack of epicritic sensation to light touch bilateral lower extremities Psych/Mental Status: Normal Affect, Appropriate Vital Signs Temp Pulse Resp BP Pulse Ox 98.5 F 68 16 138/66 H 96 05/15/19 03:00 05/15/19 03:00 05/15/19 03:00 05/15/19 03:00 05/15/19 03:00 Oxygen Delivery Method Room Air Weight: 77.9 kg Body Mass Index (BMI) 24.6 Intake and Output for Last 24 Hours 05/13/19 05/14/19 05/15/19 23:59 23:59 23:59 Intake Total 2443 / 2443 440 / 440 Output Total 1974 1100 / 1100 Balance 468 / 468 -660 / -660 Microbiology Past 72 Hours 05/13/19 20:52 Gram Stain - Final Wound - Left Foot Laboratory Tests Past 24 Hrs 05/14/19 05/14/19 05:58 05:58 WBC 7.4 RBC 3.16 L Hgb 9.9 L Hct 31.9 L MCV 100.9 H MCH 31.3 MCHC 31.0 L RDW 15.5 H RDW Differential 55.4 H Plt Count 175 MPV 9.6 Immature Gran % (Auto) 0.300 Neut % (Auto) 69.5 Lymph % (Auto) 17.8 L [place] % (Auto) 8.6 Eos % (Auto) 3.4 Baso % (Auto) 0.4 Absolute Neuts (auto) 5.1 Absolute Lymphs (auto) 1.31 Total Counted Not Reportable Sodium 141 Potassium 4.5 Chloride 107 Carbon Dioxide 29.0 Anion Gap 5 BUN 13 Creatinine 0.66 L Estim Creat Clear Calc 59.82 Est GFR (MDRD) Af Amer 149 Est GFR (MDRD) Non-Af 123 BUN/Creatinine Ratio 19.7 Glucose 89 Calcium 8.1 L Medical Necessity - Tobacco Use Smoking Status: Unknown if ever smoked Tobacco Use: Non-smoker Assessment/Plan All Active Problems (Last Reviewed 08/13/18 @ 10:19 by Fernando Patterson MD) Ulcer of right lower extremity with fat layer exposed (Resolved) Ulcer of left lower extremity with necrosis of muscle (Resolved) Hypergranulation (Acute) Chronic osteomyelitis involving left ankle and foot (Acute) Skin ulcer of left foot (Acute) Ulcer of right lower extremity, limited to breakdown of skin (Resolved) Ulcer of left lower extremity, limited to breakdown of skin (Acute) Cellulitis of right foot (Resolved) Ulcer of left lower extremity with fat layer exposed (Resolved) Chronic ulcer of left foot with fat layer exposed (Acute) Cellulitis and abscess of foot (Acute) Bacterial meningitis (Resolved) Cellulitis (Acute) Failure of outpatient treatment (Acute) Other chronic osteomyelitis,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 (Resolved) Ulcer of right foot with fat layer exposed (Resolved) Chronic ulcer of left foot with fat layer exposed (Resolved) Non-pressure chronic ulcer of other part of left foot with fat layer exposed (Acute) Non-pressure chronic ulcer of other part of right foot with fat layer exposed (Resolved) Acute encephalopathy (Acute) Non-STEMI (non-ST elevated myocardial infarction) (Resolved) Pressure ulcer left dorsal/dorsal medial foot with cellulitis left lower extremity Right ankle eschar, no infection Paraplegia Malnutrition Reviewed his case and the diagnostic data. WBC 7.4. Culture has already been obtained and results pending without current growth from the wound or blood. Continue with antibiotics per ID service; he is currently on clindamycin and vancomycin intravenously. Wound left foot was debrided in selective fashion removing nonviable tissue, this extended down to the dermal layer, no deep probing or tracking noted. A dressing of adaptic, and gauze dressing applied with overlying light edi bandage. Change daily. Right ankle wound was also evaluated and I recommend daily dressing change with Santyl. Strict offloading to each site is imperative and he has pillows arranged to keep pressure off of all the sites. To continue with Edi wrap in a gentle manner to control edema. Left foot MRI was ordered for further evaluation and the results are still pending. To continue nutritional supplementation to optimize healing. It is noted he had previous noninvasive vascular studies and evaluation by vascular surgeon Dr. De Anda in which an advanced procedure was performed. No occlusions or distinct intervention was warranted at that time. He does not have clinical progression or evidence of critical limb ischemia. Medical management per medicine team. Podiatry will continue to follow. Please do not hesitate to call if you have any questions. I will continue to follow him close while in house. Beth Naranjo DPM, [facility] [phone]
[2019-05-15 06:37] LABS: Absolute Lymphocyte Count 1.49 X10^3/ul (0.83-4.51); Basophil# 0.03 X10^3/uL; Basophil% 0.5 % (0-1); Eosinophil# 0.32 X10^3/uL; Eosinophils% 5.1 % (0-5); Hematocrit 31.2 % (40-54); Hemoglobin 9.9 g/dl (13.0-16.5); Lymphocyte # 1.49 X10^3/ul (4.0); Lymphocyte % 23.7 % (19-41); Mean Corp Hgb Conc 31.7 g/gl (32-36); Mean Corpuscular Hgb 31.5 pg (27.0-32.0); Mean Corpuscular Volume 99.4 fL (80-94); Mean Platelet Vol. 9.1 fl (6.2-12.0); Monocyte# 0.48 X10^3/uL; Monocyte% 7.6 % (0-10); Neutrophil # 3.96 X10^3/uL (2.7-7.7); Neutrophil % 62.8 % (47-70); Platelet Count 191 K/mm3 (150-450); RBC Distribution Width CV 15.1 % (11.6-14.6); Red Blood Count 3.14 M/mm3 (4.6-6.2); White Blood Count 6.3 K/mm3 (4.4-11.0)
[2019-05-15 06:42] LABS: POSITIVE COUNT NO; POSITIVE DIFFERENTIAL NO; POSITIVE MORPHOLOGY NO
[2019-05-15 06:47] VITALS: O2SAT 96
[2019-05-15 07:11] LABS: Vancomycin, Trough Level 15.8 ug/mL (5.0-15.0)
[2019-05-15] MEDS: 0.9% NaCl IVPB Med Flush (250 mL) 15 ML IV (08:07)
[2019-05-15 08:11] VITALS: BP 135/74; PULSE 66; RESP 18; TEMP 37.1; O2SAT 97
--- NOTE | 2019-05-15 08:38 | PCM.RX.CS ---
Consult Pharmacy has been consulted to manage selected antiobiotic: Vancomycin Type of Consult: Follow-up Suspected Infection: Skin/Soft tissue Prior Doses of Antibiotics Received/Current Regimen: Patient currently on 750mg iv q12h. Labs: Sodium 141 mmol/L (136-145) 05/14/19 05:58 Potassium 4.5 mmol/L (3.5-5.1) 05/14/19 05:58 Chloride 107 mmol/L (98-107) 05/14/19 05:58 Carbon Dioxide 29.0 mmol/L (21.0-32.0) 05/14/19 05:58 5 (5-15) 05/14/19 05:58 BUN 13 mg/dL (7-18) 05/14/19 05:58 0.66 mg/dL (0.70-1.30) L 05/14/19 05:58 Est GFR (MDRD) Af Amer 149 mL/min (>60) 05/14/19 05:58 Est GFR (MDRD) Non-Af 123 mL/min (>60) 05/14/19 05:58 19.7 RATIO (10-20) 05/14/19 05:58 Glucose 89 mg/dL (74-106) 05/14/19 05:58 Vancomycin Trough 15.8 ug/mL (5.0-15.0) H 05/15/19 06:14 Microbiology: Microbiology 05/13/19 20:52 Wound - Left Foot Gram Stain - Final 05/13/19 20:52 Wound - Left Foot Anaerobic Culture - Preliminary No growth in 48 hours. Weight used for dosin.9 kg Estimated Creatinine Clearance: ~60 ml/min Goal Trough: 10-15 mcg/mL Pharmacy Plan for Drug Dosing: Vancomycin trough on 05.15.19 was 15.8. Documentation shows trough drawn at 0614, but dose started at 0600. Will continue same dose for now and get repeat level before next dose to confirm level. Pharmacy Service will continue to monitor and adjust dosing as required. Follow-Up Labs: Trough Vancomycin - 05.15.19 @7813
[2019-05-15] MEDS: Collagenase 30gm Tube 1 APPLIC TOPICAL (09:35)
--- NOTE | 2019-05-15 10:00 | MRI_ITS ---
STUDY: MRI LEFT MIDFOOT REASON FOR EXAM: Male, 83 years old. Foot infection and pain TECHNIQUE: Standardized fat and water weighted pulse sequences were obtained in all 3 orthogonal planes. COMPARISON: None. FINDINGS: Normal talonavicular articulation. Normal calcaneocuboid articulation. Normal navicular-cuneiform articulations. Normal intercuneiform articulations. Normal first tarsometatarsal articulation. Normal Lisfranc ligament. Normal second and third tarsometatarsal articulations. Normal cuboid fourth and cuboid fifth tarsometatarsal articulation. Normal first through fifth metatarsi. Normal tibialis anterior tendon. Normal extensor hallucis longus tendon. Normal extensor digitorum longus tendons. Normal peroneus longus tendon and distal insertion. Normal peroneus brevis tendon and distal insertion. Normal intrinsic muscles of the mid and forefoot region. Normal extensor digitorum brevis muscle. Markedly skin thickening and subcutaneous edema of the dorsum of the foot consistent with known cellulitis. No loculate fluid collection to suggest abscess. No bony destruction to suggest osteomyelitis. MRI/Lower Ext/No Jt/w/o IMPRESSION: Cellulitis of the dorsum of foot without abscess or osteomyelitis. Electronically Signed: Bill Herrera MD at 16:17 EDT Tel , Service support ,
[2019-05-15] MEDS: Ciprofloxacin 400 MG/200 ML BAG 200 MG IV ×2 (10:37→22:48)
[2019-05-15 10:40] VITALS: PULSE 76
[2019-05-15] MEDS: Carvedilol 3.125 MG TABLET PO ×2 (11:09→22:56)
[2019-05-15] MEDS: DULoxetine Hcl 60 MG Capsule PO (11:09)
[2019-05-15] MEDS: Senna/Docusate Sodium 1 Tablet 2 TABLET PO (11:09)
[2019-05-15] MEDS: Magnesium Oxide 400 MG Tablet PO ×2 (11:09→22:56)
[2019-05-15] MEDS: Multivitamins,Ther W-Minerals Tablet 1 TABLET PO (11:09)
[2019-05-15] MEDS: Furosemide 40 MG Tablet PO (11:09)
[2019-05-15] MEDS: morphine SR 15 MG Tablet PO ×2 (11:11→22:57)
[2019-05-15] MEDS: 0.9% NaCl Peripheral Flush Adult/Peds IV ×2 (11:41→19:27)
--- NOTE | 2019-05-15 12:44 | PCM.PROGNOTE ---
<Avelino Moore - Last Filed: 05/15/19 12:44> Patient Problems: Active and Suspected Problems (Last Reviewed 08/13/18 @ 10:19 by Fernando Patterson MD) Cellulitis and abscess of foot (Acute) Cellulitis (Acute) Failure of outpatient treatment (Acute) Subjective: Marked improvement in swelling. Erythema continues. No fever/chills. Resting comfortably in bed NAD. - Physical Exam General: Alert, Oriented x3, Cooperative HEENT: Atraumatic, PERRLA, EOMI, Normocephalic Neck: Supple, No JVD, Negative Carotid Bruits Lungs: Clear to auscultation, Normal air movement Cardiovascular: Regular rate, No murmurs Abdomen: Bowel Sounds Present, Soft, Non Tender Extremities: No edema, Capillary Refill Less than 3 Seconds Skin: No rashes, No breakdown Musculoskeletal: No Tenderness to Palpation of Joints or Extremities Neurological: Cranial nerves II-XII grossly intact Psych/Mental Status: Normal Affect, Appropriate, Alert and oriented to time, place, person, mood and affect Vital Signs Temp Pulse Resp BP Pulse Ox 98.8 F 76 18 135/74 H 97 05/15/19 08:11 05/15/19 10:40 05/15/19 08:11 05/15/19 08:11 05/15/19 08:11 Oxygen Delivery Method Room Air Weight: 171 lb 11.841 oz Body Mass Index (BMI) 24.6 Intake and Output for Last 24 Hours 05/13/19 05/14/19 05/15/19 23:59 23:59 23:59 Intake Total 2443 / 2443 1617 / 1617 Output Total 1974 2925 / 2925 Balance 468 / 468 -1308 / -1308 Microbiology Past 72 Hours 05/13/19 20:52 Gram Stain - Final Wound - Left Foot Wound Culture - Preliminary No growth-Final to follow Anaerobic Culture - Preliminary No growth in 48 hours. Laboratory Tests Past 24 Hrs 05/15/19 05/15/19 06:14 06:14 WBC 6.3 RBC 3.14 L Hgb 9.9 L Hct 31.2 L MCV 99.4 H MCH 31.5 MCHC 31.7 L RDW 15.1 H RDW Differential 53.0 H Plt Count 191 MPV 9.1 Immature Gran % (Auto) 0.300 Neut % (Auto) 62.8 Lymph % (Auto) 23.7 [place] % (Auto) 7.6 Eos % (Auto) 5.1 H Baso % (Auto) 0.5 Absolute Neuts (auto) 4.0 Absolute Lymphs (auto) 1.49 Total Counted Not Reportable Vancomycin Trough 15.8 H Medical Necessity - Tobacco Use Smoking Status: Unknown if ever smoked Tobacco Use: Non-smoker Assessment/Plan All Active Problems (Last Reviewed 08/13/18 @ 10:19 by Fernando Patterson MD) Ulcer of right lower extremity with fat layer exposed (Resolved) Ulcer of left lower extremity with necrosis of muscle (Resolved) Hypergranulation (Acute) Chronic osteomyelitis involving left ankle and foot (Acute) Skin ulcer of left foot (Acute) Ulcer of right lower extremity, limited to breakdown of skin (Resolved) Ulcer of left lower extremity, limited to breakdown of skin (Acute) Cellulitis of right foot (Resolved) Ulcer of left lower extremity with fat layer exposed (Resolved) Chronic ulcer of left foot with fat layer exposed (Acute) Cellulitis and abscess of foot (Acute) Bacterial meningitis (Resolved) Cellulitis (Acute) Failure of outpatient treatment (Acute) Other chronic osteomyelitis,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 (Resolved) Ulcer of right foot with fat layer exposed (Resolved) Chronic ulcer of left foot with fat layer exposed (Resolved) Non-pressure chronic ulcer of other part of left foot with fat layer exposed (Acute) Non-pressure chronic ulcer of other part of right foot with fat layer exposed (Resolved) Acute encephalopathy (Acute) Non-STEMI (non-ST elevated myocardial infarction) (Resolved) 1. LLE cellulitis - follow wound cultures - prelim with very rare GPC. ID following. Podiatry consult added. Xray without evidence of osteo. Does have hx of osteo multiple times. MRSA/MSSA screen negative. Hx pseudomonas, MRSE, Enterobacter. See prior wound cultures. -podiatry following, strict offloading as per their recommendation -venous US is negative for DVT -MRI pending. 2. Other chronic decubitus ulcers - wound care consult, and ongoing f/u with the wound care center for hyperbaric therapy 3. 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 PAD contributing to #1 - had arteriogram last fall - request records. 5. HTN/HLD - home meds 6. 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 8. Chronic anemia - stable DVT ppx: lovenox DC planning: PTOT evals. Wound care center follow up. May need home health. Fairly independent despite severe chronic issues This patient was seen by Avelino Moore PA-C under the supervision of Dr. Ty <Rafiq Ty - Last Filed: 05/15/19 15:16> Subjective: Patient was seen by wheelman. Left foot ulcer was debrided. No deep tracking was found as per wheelman note. Ankle lateral malleolus ulcer daily dressing to Santyl. - Physical Exam General: Alert, Oriented x3, Cooperative HEENT: Atraumatic, PERRLA, EOMI, Normocephalic Neck: Supple, No JVD, Negative Carotid Bruits Lungs: Clear to auscultation, Normal air movement, No rhonchi, No wheeze, No rales Cardiovascular: Regular rate, Regular Rhythm, Normal S1, Normal S2, No murmurs Abdomen: Bowel Sounds Present, Soft, Non Tender, Non-Distended Extremities: No edema, Capillary Refill Less than 3 Seconds Skin: Ulcer/ Wound - Ulcer of the left foot status post debridement. Right lateral malleolus pressure ulcer. Right foot ulcer. Small ulcer over left buttock Musculoskeletal: No Tenderness to Palpation of Joints or Extremities, Arthritic Changes, Muscle Wasting Neurological: Cranial nerves II-XII grossly intact, - - Paraplegic. Psych/Mental Status: Normal Affect, Appropriate Vital Signs Temp Pulse Resp BP Pulse Ox 98.8 F 76 18 135/74 H 97 05/15/19 08:11 05/15/19 10:40 05/15/19 08:11 05/15/19 08:11 05/15/19 08:11 Oxygen Delivery Method Room Air Weight: 171 lb 11.841 oz Body Mass Index (BMI) 24.6 Intake and Output for Last 24 Hours 05/13/19 05/14/19 05/15/19 23:59 23:59 23:59 Intake Total 2443 / 2443 1617 / 1617 Output Total 1974 2925 / 2925 Balance 468 / 468 -1308 / -1308 Microbiology Past 72 Hours 05/13/19 20:52 Gram Stain - Final Wound - Left Foot Wound Culture - Preliminary No growth-Final to follow Anaerobic Culture - Preliminary No growth in 48 hours. Laboratory Tests Past 24 Hrs 05/15/19 05/15/19 06:14 06:14 WBC 6.3 RBC 3.14 L Hgb 9.9 L Hct 31.2 L MCV 99.4 H MCH 31.5 MCHC 31.7 L RDW 15.1 H RDW Differential 53.0 H Plt Count 191 MPV 9.1 Immature Gran % (Auto) 0.300 Neut % (Auto) 62.8 Lymph % (Auto) 23.7 [place] % (Auto) 7.6 Eos % (Auto) 5.1 H Baso % (Auto) 0.5 Absolute Neuts (auto) 4.0 Absolute Lymphs (auto) 1.49 Total Counted Not Reportable Vancomycin Trough 15.8 H Assessment/Plan This patient was seen in conjunction with Avelino CASTELLON. I have independently interviewed and examined the patient and reviewed pertinent history, examination findings, laboratory and plan of management. I have reviewed the note and agree with the documented findings with the few additional points. In brief, patient is admitted for complicated left lower extremity cellulitis in view of recurrent cellulitis, history of Nocardia infection in 2005. Patient also has history of DVT status post IVC filter and peripheral arterial disease. Podiatry has been consulted and at bedside left foot wound debridement. Wound from left foot shows no preliminary growth. Blood cultures x2 are negative. History of Pseudomonas, MRSA, MRSE and Enterobacter in previous wound culture. Patient seen by ID and recommended to continue Vanco and Zosyn. Discussed with the wound nurse. MRI of lower extremity is done but report pending. She has chronic comorbidities with paraplegia secondary to transverse myelitis and bacterial meningitis about 15 years ago. Patient uses self-catheterization for urinary incontinence. Stool softener for bowel movement. Last bowel movement was about 3 to 4 days ago. I have discussed my assessment with Avelino CASTELLON and orders have been reviewed. Code Visit Inpatient E&M: 05323 Subs Hosp L3
[2019-05-15 14:59] VITALS: BP 156/75; PULSE 66; RESP 18; TEMP 36.6; O2SAT 97
[2019-05-15] MEDS: Tamsulosin HCl 0.4 MG Capsule PO (18:05)
[2019-05-15 19:28] LABS: Vancomycin, Trough Level 11.1 ug/mL (5.0-15.0)
[2019-05-15 20:55] VITALS: BP 161/79; PULSE 70; RESP 18; TEMP 37.2; O2SAT 95
[2019-05-15] MEDS: traZODone 50 MG Tablet 25 MG PO (22:56)
[2019-05-15] MEDS: Atorvastatin Calcium 40 MG Tablet PO (22:56)
[2019-05-15] MEDS: cycloBENZAPRine HCl 10 MG Tablet 2.5 MG PO (22:57)
[2019-05-15] MEDS: Isosorbide Mononitrate 20 MG Tablet 10 MG PO (22:58)
[2019-05-16] MEDS: Lithium Carbonate 150 MG Capsule PO ×2 (06:30→14:17)
[2019-05-16] MEDS: Gabapentin 300 MG Capsule 600 MG PO (06:30)
[2019-05-16] MEDS: Ascorbic Acid 500 MG Tablet PO (06:31)
[2019-05-16] MEDS: 0.9% NaCl Peripheral Flush Adult/Peds IV (06:35)
--- NOTE | 2019-05-16 07:04 | PCM.PROGNOTE ---
Patient Problems: Active and Suspected Problems (Last Reviewed 08/13/18 @ 10:19 by Fernando Patterson MD) Cellulitis and abscess of foot (Acute) Cellulitis (Acute) Failure of outpatient treatment (Acute) Subjective: This 83-year-old male with multiple comorbidities was seen bedside today for right ankle pressure ulcer and also left foot dorsum ulcer with cellulitis. He denies pain. He denies fever, chill, nausea, vomiting. - Physical Exam General: Alert, Oriented x3, Cooperative Extremities: No cyanosis, Capillary Refill Less than 3 Seconds, No Calf Tenderness, Diminished Peripheral Pulses, Edema, - - Spastic spasticity and paralysis bilateral lower extremities consistent with prior examinations Skin: Ulcer/ Wound - No purulence, erythema, streaking, odor, or acute signs of infection. The cellulitis to left lower extremity is significantly resolving and edema continues to decrease. He has no open lesions to his left leg. The ulcer bed is granular with eschar noted to the dorsal left foot. The right lateral ankle ulcer is a moist eschar pre-debridement measures 1.8 x 1.2 x 0.1 cm and post debridement 2.0 x 1.3 x 0.1 cm with continued eschar. No bogginess or fluctuance to palpation. No interdigital maceration, - - The peripheral skin is hairless and atrophic bilateral lower extremities Musculoskeletal: No Tenderness to Palpation of Joints or Extremities, Muscle Wasting Neurological: - - Lack of epicritic sensation light touch bilateral lower extremities Psych/Mental Status: Normal Affect, Appropriate Vital Signs Temp Pulse Resp BP Pulse Ox 98.9 F 70 18 161/79 H 95 05/15/19 20:55 05/15/19 20:55 05/15/19 20:55 05/15/19 20:55 05/15/19 20:55 Oxygen Delivery Method Room Air Weight: 77.9 kg Body Mass Index (BMI) 24.6 Intake and Output for Last 24 Hours 05/14/19 05/15/19 05/16/19 23:59 23:59 23:59 Intake Total 2443 / 2443 2337 / 3252 915 / 915 Output Total 1974 3925 / 4125 200 / 200 Balance 468 / 468 -1588 / -873 715 / 715 Microbiology Past 72 Hours 05/13/19 20:52 Gram Stain - Final Wound - Left Foot Wound Culture - Preliminary No growth-Final to follow Anaerobic Culture - Preliminary No growth in 48 hours. Laboratory Tests Past 24 Hrs 05/15/19 05/15/19 06:14 18:25 Vancomycin Trough 15.8 H 11.1 Medical Necessity - Tobacco Use Smoking Status: Unknown if ever smoked Tobacco Use: Non-smoker Assessment/Plan All Active Problems (Last Reviewed 08/13/18 @ 10:19 by Fernando Patterson MD) Ulcer of right lower extremity with fat layer exposed (Resolved) Ulcer of left lower extremity with necrosis of muscle (Resolved) Hypergranulation (Acute) Chronic osteomyelitis involving left ankle and foot (Acute) Skin ulcer of left foot (Acute) Ulcer of right lower extremity, limited to breakdown of skin (Resolved) Ulcer of left lower extremity, limited to breakdown of skin (Acute) Cellulitis of right foot (Resolved) Ulcer of left lower extremity with fat layer exposed (Resolved) Chronic ulcer of left foot with fat layer exposed (Acute) Cellulitis and abscess of foot (Acute) Bacterial meningitis (Resolved) Cellulitis (Acute) Failure of outpatient treatment (Acute) Other chronic osteomyelitis,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 (Resolved) Ulcer of right foot with fat layer exposed (Resolved) Chronic ulcer of left foot with fat layer exposed (Resolved) Non-pressure chronic ulcer of other part of left foot with fat layer exposed (Acute) Non-pressure chronic ulcer of other part of right foot with fat layer exposed (Resolved) Acute encephalopathy (Acute) Non-STEMI (non-ST elevated myocardial infarction) (Resolved) Pressure ulcer left dorsal/dorsal medial foot with cellulitis left lower extremity Right ankle eschar, no infection Paraplegia Malnutrition Reviewed his case and the diagnostic data. Vitals are stable. White blood cell count is 6.3. Culture has already been obtained and results pending without current growth from the wound or blood. Continue with antibiotics per ID service; he is currently on ciprofloxacin and vancomycin intravenously. The lateral right ankle ulcer was debrided in selective fashion removing nonviable tissue, this extended down to the dermal layer, no deep probing or tracking noted. A dressing of Santyl, and gauze dressing applied to bilateral ulcers with overlying light clara bandage to the left lower extremity. Strict offloading to each site is imperative and he has pillows arranged to keep pressure off of all the sites. Left foot MRI was also evaluated with findings consistent to the foot dorsum cellulitis. There is no evidence of osteo-or abscess formation. To continue nutritional supplementation to optimize healing. It is noted he had previous noninvasive vascular studies and evaluation by vascular surgeon Dr. De Anda in which an advanced procedure was performed. No occlusions or distinct intervention was warranted at that time. He does not have clinical progression or evidence of critical limb ischemia. Medical management per medicine team. Podiatry will continue to follow 1-2 times weekly at this point. It is okay to discharge from a lower extremity wound standpoint. Please not hesitate to call if you have any questions. Beth Naranjo DPM, [facility] [phone]
--- NOTE | 2019-05-16 07:10 | DCINST_ITS ---
Weight Bearing Status: No weight bearing Keep extremity elevated above heart level: Left Leg, Right Leg Call your doctor if your incision/area has: Continuous Slow Oozing, Sudden Increased Bleeding, Increased Pain/ Swelling, Increased Redness, Foul Smelling Discharge, Swelling at the incision site Call your doctor if you observe: Fever of 101 or Higher, Calf discomfort, Uncontrolled pain Cleanse incision/area with: Soap & Water, - - change dressing daily with santyl applied nickel thickness to bilateal ulcer site. cover with well padded gauze, kerlix, and shawna wrap taking care to prevent dressing injuries. SHAWNA wrap to left lower extremity. Allergies/Adverse Reactions: Allergies Cephalosporins Allergy (Intermediate, Verified 05/13/19 17:10) Laryngospasms Penicillins Allergy (Intermediate, Verified 05/13/19 17:10) Rash IVP DYE Allergy (Uncoded 05/13/19 17:10) Rash Medications to take at Discharge Riboflavin (Vitamin B2) [Vitamin B2] 300 mg PO DAILY@1700 11/10/16 Ascorbic Acid [Vitamin C] 500 mg PO TID 07/05/18 Gabapentin [Neurontin] 600 mg PO TID 07/05/18 [place] Carbonate 150 mg PO TID 07/05/18 Furosemide [Lasix] 40 mg PO DAILY 08/11/18 Magnesium 500 mg PO BID 08/11/18 Sennosides/Docusate Sodium [Senna-S Laxative Tablet] 2 each PO DAILY 08/11/18 traZODone [Desyrel] 25 mg PO QHS 08/11/18 Atorvastatin Calcium [Lipitor] 40 mg PO QHS 11/06/18 Carvedilol [Coreg (Beta Krissy)] 3.125 mg PO QHS 11/06/18 Duloxetine Hcl [Cymbalta] 60 mg PO DAILY 11/06/18 Isosorbide Mononitrate 10 mg PO QHS 11/06/18 Morphine Sulfate [Morphine Sulfate ER] 15 mg PO BID 11/06/18 Multivitamins,Ther W-Minerals [Multivitamin With Minerals] 1 tablet PO DAILY 11/06/18 Pyridoxine HCl [Vitamin B-6] 100 mg PO DAILY 11/06/18 Tamsulosin HCl [Flomax] 0.4 mg PO 1700 11/06/18 cycloBENZAPRine HCl [Flexeril] 5 mg PO QHS PRN 11/06/18 Docusate Sodium [Colace] 200 mg PO DAILY PRN PRN 05/13/19 Mineral Oil/Petrolatum,White [Eucerin] 1 applic TOPICAL BID 05/13/19 Sulfamethoxazole/Trimethoprim [Sulfamethoxazole-Tmp Ds Tablet] 1 tab PO DAILY 05/13/19 levoFLOXacin tablet [Levaquin tablet] 750 mg PO DAILY 05/13/19 Primary Care Physician: Eris Melendez MD [Primary Care Provider] - Test Results: Test results from this visit will be discussed in further detail at your follow- up appointment, if applicable. Please Follow Up With: Clinic,Wound When: next Wed with Dr Naranjo Proposed Discharge Date: 05/17/19
--- NOTE | 2019-05-16 07:19 | PCM.RX.CS ---
Consult Pharmacy has been consulted to manage selected antiobiotic: Vancomycin Type of Consult: Follow-up Suspected Infection: Skin/Soft tissue Prior Doses of Antibiotics Received/Current Regimen: Vancomycin 1250mg IV x1 dose, then Vancomycin 750mg IV q12h x5 doses Labs: Sodium 141 mmol/L (136-145) 05/14/19 05:58 Potassium 4.5 mmol/L (3.5-5.1) 05/14/19 05:58 Chloride 107 mmol/L (98-107) 05/14/19 05:58 Carbon Dioxide 29.0 mmol/L (21.0-32.0) 05/14/19 05:58 5 (5-15) 05/14/19 05:58 BUN 13 mg/dL (7-18) 05/14/19 05:58 0.66 mg/dL (0.70-1.30) L 05/14/19 05:58 Est GFR (MDRD) Af Amer 149 mL/min (>60) 05/14/19 05:58 Est GFR (MDRD) Non-Af 123 mL/min (>60) 05/14/19 05:58 19.7 RATIO (10-20) 05/14/19 05:58 Glucose 89 mg/dL (74-106) 05/14/19 05:58 Vancomycin Trough 11.1 ug/mL (5.0-15.0) 05/15/19 18:25 Microbiology: Microbiology 05/13/19 20:52 Wound - Left Foot Gram Stain - Final 05/13/19 20:52 Wound - Left Foot Wound Culture - Preliminary No growth-Final to follow 05/13/19 20:52 Wound - Left Foot Anaerobic Culture - Preliminary No growth in 48 hours. Weight used for dosin kg Estimated Creatinine Clearance: 60ml/min Goal Trough: 10-15 mcg/mL Pharmacy Plan for Drug Dosing: Pts trough level on 05/15/19 at 1800, which was a re-check from the 0600 level, resulted in a level of 11.1. Within goal range of 10-15. Recommend continuing pt at current dose of Vancomycin 750mg q12h and recheck a trough in 4 days (05/19/19) Pharmacy Service will continue to monitor and adjust dosing as required. Follow-Up Labs: Trough Vancomycin - 05/19/19 @ 1830
[2019-05-16 09:00] VITALS: BP 143/73; PULSE 71; RESP 18; TEMP 36.6; O2SAT 98
--- NOTE | 2019-05-16 09:14 | CASEMGMT ---
Addendum entered by Nahomy Esposito 05/16/19 11:27: SW faxed over discharge instructions and summary to [facility] for palliative, called and let them know that pt is going home today. SEBASTIÁN Hazel Original Note: Pt did sign on w/palliative care. SEBASTIÁN Hazel
--- NOTE | 2019-05-16 10:02 | NURSING ---
Dr Naranjo had been in this am to change dressings to bilateral feet. dressings left in place at this time. will take dressing down if MD would like to assess the wounds.
--- NOTE | 2019-05-16 10:29 | PCM.PN.ID ---
Patient Problems: Active and Suspected Problems (Last Reviewed 08/13/18 @ 10:19 by Fernando Patterson MD) Cellulitis and abscess of foot (Acute) Cellulitis (Acute) Failure of outpatient treatment (Acute) Subjective: Feeling better, foot improved, no fever - Physical Exam General: Alert, Cooperative, No apparent distress Lungs: Clear to auscultation, Normal air movement Cardiovascular: Regular rate, Regular Rhythm Abdomen: Soft, Non Tender, Non-Distended Skin: Rash Present - L foot wrapped Vital Signs Temp Pulse Resp BP Pulse Ox 97.9 F 71 18 143/73 H 98 05/16/19 09:00 05/16/19 09:00 05/16/19 09:00 05/16/19 09:00 05/16/19 09:00 Oxygen Delivery Method Room Air Weight: 77.9 kg Body Mass Index (BMI) 24.6 Intake and Output for Last 24 Hours 05/14/19 05/15/19 05/16/19 23:59 23:59 23:59 Intake Total 2443 / 2443 2337 / 3252 1015 / 1015 Output Total 1974 3925 / 4125 750 / 750 Balance 468 / 468 -1588 / -873 265 / 265 Microbiology Past 72 Hours 05/13/19 20:52 Gram Stain - Final Wound - Left Foot Wound Culture - Preliminary No growth-Final to follow Anaerobic Culture - Preliminary No growth in 48 hours. 05/13/19 18:10 Blood Culture - Preliminary Blood Culture (Wb) - Anticubital Left No growth in 48 hours. 05/13/19 18:00 Blood Culture - Preliminary Blood Culture (Wb) - Anticubital Right No growth in 48 hours. Laboratory Tests Past 24 Hrs 05/15/19 18:25 Vancomycin Trough 11.1 Medical Necessity - Tobacco Use Smoking Status: Unknown if ever smoked Tobacco Use: Non-smoker Route of nutrition/ use of supplements: [] Nutritional Intake: [] IV Site: [] Wheeler Catheter: [] - Assessment/Plan Antibiotics: [] Assessment/Plan: [] Active and Suspected Problems (Last Reviewed 08/13/18 @ 10:19 by Fernando Patterson MD) Cellulitis and abscess of foot (Acute) Cellulitis (Acute) Failure of outpatient treatment (Acute) L foot cellulitis - improving. Ok for d/c home on 5 days cipro/levaquin. Will follow.
[2019-05-16] MEDS: Ciprofloxacin 500 MG Tablet PO (10:40)
[2019-05-16] MEDS: Linezolid 600 MG Tablet PO (10:40)
[2019-05-16] MEDS: DULoxetine Hcl 60 MG Capsule PO (10:40)
[2019-05-16] MEDS: Carvedilol 3.125 MG TABLET PO (10:41)
[2019-05-16] MEDS: Furosemide 40 MG Tablet PO (10:41)
[2019-05-16] MEDS: Magnesium Oxide 400 MG Tablet PO (10:41)
[2019-05-16] MEDS: Pyridoxine HCl 100 MG Tablet PO (10:42)
[2019-05-16] MEDS: Multivitamins,Ther W-Minerals Tablet 1 TABLET PO (10:42)
[2019-05-16] MEDS: morphine SR 15 MG Tablet PO (10:46)
--- NOTE | 2019-05-16 10:50 | DCINST_ITS ---
- Discharge Diagnoses Current Active Problems: Current Active and Chronic Problems (Last Reviewed 08/13/18 @ 10:19 by Fernando Patterson MD) Cellulitis and abscess of foot (Acute) Cellulitis (Acute) Failure of outpatient treatment (Acute) You will use the following diet at home:: Regular Your food should be the consistency of: Regular Discharge Activity: May Not Drive Weight Bearing Status: No weight bearing Keep extremity elevated above heart level: Left Leg, Right Leg Call your doctor if your incision/area has: Continuous Slow Oozing, Sudden Increased Bleeding, Increased Pain/ Swelling, Increased Redness, Foul Smelling Discharge, Swelling at the incision site Call your doctor if you observe: Fever of 101 or Higher, Calf discomfort, Uncontrolled pain Cleanse incision/area with: Soap & Water, - - change dressing daily with santyl applied nickel thickness to bilateal ulcer site. cover with well padded gauze, kerlix, and shawna wrap taking care to prevent dressing injuries. SHAWNA wrap to left lower extremity. Allergies/Adverse Reactions: Allergies Cephalosporins Allergy (Intermediate, Verified 05/13/19 17:10) Laryngospasms Penicillins Allergy (Intermediate, Verified 05/13/19 17:10) Rash IVP DYE Allergy (Uncoded 05/13/19 17:10) Rash Medications to take at Discharge Riboflavin (Vitamin B2) [Vitamin B2] 300 mg PO DAILY@1700 11/10/16 Ascorbic Acid [Vitamin C] 500 mg PO TID 07/05/18 Gabapentin [Neurontin] 600 mg PO TID 07/05/18 [place] Carbonate 150 mg PO TID 07/05/18 Furosemide [Lasix] 40 mg PO DAILY 08/11/18 Magnesium 500 mg PO BID 08/11/18 Sennosides/Docusate Sodium [Senna-S Laxative Tablet] 2 each PO DAILY 08/11/18 traZODone [Desyrel] 25 mg PO QHS 08/11/18 Atorvastatin Calcium [Lipitor] 40 mg PO QHS 11/06/18 Carvedilol [Coreg (Beta Krissy)] 3.125 mg PO QHS 11/06/18 Duloxetine Hcl [Cymbalta] 60 mg PO DAILY 11/06/18 Isosorbide Mononitrate 10 mg PO QHS 11/06/18 Morphine Sulfate [Morphine Sulfate ER] 15 mg PO BID 11/06/18 Multivitamins,Ther W-Minerals [Multivitamin With Minerals] 1 tablet PO DAILY 11/06/18 Pyridoxine HCl [Vitamin B-6] 100 mg PO DAILY 11/06/18 Tamsulosin HCl [Flomax] 0.4 mg PO 1700 11/06/18 cycloBENZAPRine HCl [Flexeril] 5 mg PO QHS PRN 11/06/18 Docusate Sodium [Colace] 200 mg PO DAILY PRN PRN 05/13/19 Mineral Oil/Petrolatum,White [Eucerin] 1 applic TOPICAL BID 05/13/19 Ciprofloxacin [Cipro] 500 mg PO BID #10 tab 05/16/19 Collagenase [Santyl] 1 applic TOPICAL DAILY #1 tube 05/16/19 Linezolid [Zyvox] 600 mg PO BID #10 tab 05/16/19 The following prescriptions were given: Ciprofloxacin [Cipro] 500 mg PO BID #10 tab Transmission Status: Received by [id number] Collagenase [Santyl] 1 applic TOPICAL DAILY #1 tube Transmission Status: Pending to [id number] Linezolid [Zyvox] 600 mg PO BID #10 tab Transmission Status: Received by [id number] Primary Care Physician: Eris Melendez MD [Primary Care Provider] - Please follow up with your Primary Care Physician in: in 1-2 week Test Results: Test results from this visit will be discussed in further detail at your follow- up appointment, if applicable. Please Follow Up With: Clinic,Wound When: next Wed with Dr Naranjo Please Follow Up With: Jose Robert MD When: in 2 weeks Proposed Discharge Date: 05/17/19
--- NOTE | 2019-05-16 10:52 | PCM.DC.SUM ---
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) Ulcer of right lower extremity with fat layer exposed (Chronic) Ulcer of right lower extremity with necrosis of muscle (Chronic) 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) Paralysis (Chronic) Other specified peripheral vascular diseases (Chronic) Unstageable pressure ulcer of left foot (Chronic) Unstageable pressure ulcer of right foot (Chronic) Ulcer of left lower extremity with fat layer exposed (Chronic) previously unstageable pressure ulcer Malnutrition (Chronic) Delayed wound healing (Chronic) Edema leg (Chronic) Paralysis (Chronic) Ulcer of right lower extremity with fat layer exposed (Chronic) previously unstageable pressure ulcer Osteomyelitis (Chronic) Chronic pain (Chronic) Nocardia infection (Chronic) 2004, right arm and left leg, 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 Patient also has history of DVT status post IVC filter and peripheral arterial disease. Podiatry has been consulted and at bedside left foot wound right malleolar ulcer superficial debridement. Wound from left foot shows no preliminary growth. Blood cultures x2 are negative. History of Pseudomonas, MRSA, MRSE and Enterobacter in previous wound culture. Patient was seen by ID. Initially patient was treated on broad-spectrum antibiotic vancomycin and Zosyn. Overall diagnosis and management 1. Left lower leg and foot cellulitis -patient was seen by grey stock recorder and ID. Blood cultures negative for 48 hours. Preliminary wound culture shows no growth. Patient was recommended strict offloading -venous US is negative for DVT. Left midfoot MRI was done which shows cellulitis of dorsum of foot without abscess or osteomyelitis. Patient is being discharged on Cipro and linezolid for 5 days. Patient was instructed by me and nurse not to take duloxetine, gabapentin, trazodone, Flexeril while he is on Cipro and linezolid for increased drug to drug reaction and probability of serotonin syndrome and seizure. Patient was given a prescription for baclofen as an alternative to Flexeril for muscle spasm. 2. Other chronic decubitus ulcers - wound care consult, and ongoing f/u with the wound care center for hyperbaric therapy 3. 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 Stool softener for bowel movement. 4. PAD contributing to #1 - had arteriogram last fall - request records. 5. HTN/HLD - home meds 6. 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 8. Chronic anemia - stable DVT ppx: lovenox Discharge medication reconciliation done. Discharge follow-up instructions completed. Discharge process discussed with the patient and all questions were answered to patient's satisfaction. Follow-up with grey stock recorder and ID and PCP as mentioned in discharge instructions Total time spent, exact 35 minutes on discharge meds reconciliation, examination, review of imaging and blood test and discussion with the patient on follow-up instructions. Clinical Impression(s) from Imaging Studies Foot X-Ray 05/13/19 17:41 IMPRESSION: No fracture or dislocation. Prominent degenerative changes at the first MTP joint. Osteopenia. Diffuse soft tissue swelling. No evidence of osteomyelitis. Lower Extremity MRI 05/15/19 10:00 IMPRESSION: Cellulitis of the dorsum of foot without abscess or osteomyelitis. Subjective: Seen and examined. The patient had bedside debridement grey stock recorder. Left foot ulcer was debrided. Ankle lateral malleolus ulcer daily dressing to Santyl. Objective: General: Alert, Oriented x3, Cooperative HEENT: Atraumatic, PERRLA, EOMI, Normocephalic Neck: Supple, No JVD, Negative Carotid Bruits Lungs: Clear to auscultation, Normal air movement, No rhonchi, No wheeze, No rales Cardiovascular: Regular rate, Regular Rhythm, Normal S1, Normal S2, No murmurs Abdomen: Bowel Sounds Present, Soft, Non Tender, Non-Distended. Neurogenic bladder on self-catheterization Extremities: No edema, Capillary Refill Less than 3 Seconds Skin: Ulcer/ Wound - Ulcer of the left foot status post debridement. Right lateral malleolus pressure ulcer on Santyl dressing. Small ulcer over left buttock Musculoskeletal: No Tenderness to Palpation of Joints or Extremities, Arthritic Changes, Muscle Wasting Neurological: Cranial nerves II-XII grossly intact, Paraplegic. Psych/Mental Status: Normal Affect, Appropriate - Physical Exam Vital Signs Temp Pulse Resp BP Pulse Ox 97.9 F 71 18 143/73 H 98 05/16/19 09:00 05/16/19 09:00 05/16/19 09:00 05/16/19 09:00 05/16/19 09:00 Oxygen Delivery Method Room Air Weight: 171 lb 11.841 oz Body Mass Index (BMI) 24.6 Intake and Output for Last 24 Hours 05/14/19 05/15/19 05/16/19 23:59 23:59 23:59 Intake Total 2443 / 2443 2337 / 3252 1015 / 1015 Output Total 1974 3925 / 4125 750 / 750 Balance 468 / 468 -1588 / -873 265 / 265 Microbiology Past 72 Hours 05/13/19 20:52 Gram Stain - Final Wound - Left Foot Wound Culture - Preliminary No growth-Final to follow Anaerobic Culture - Preliminary No growth in 48 hours. 05/13/19 18:10 Blood Culture - Preliminary Blood Culture (Wb) - Anticubital Left No growth in 48 hours. 05/13/19 18:00 Blood Culture - Preliminary Blood Culture (Wb) - Anticubital Right No growth in 48 hours. Laboratory Tests Past 24 Hrs 05/15/19 18:25 Vancomycin Trough 11.1 Discharge Activity: May Not Drive Weight Bearing Status: No weight bearing Keep extremity elevated above heart level: Left Leg, Right Leg Call your doctor if your incision/area has: Continuous Slow Oozing, Sudden Increased Bleeding, Increased Pain/ Swelling, Increased Redness, Foul Smelling Discharge, Swelling at the incision site Call your doctor if you observe: Fever of 101 or Higher, Calf discomfort, Uncontrolled pain Cleanse incision/area with: Soap & Water, - - change dressing daily with santyl applied nickel thickness to bilateal ulcer site. cover with well padded gauze, kerlix, and shawna wrap taking care to prevent dressing injuries. SHAWNA wrap to left lower extremity. Home Medications: Medications to take at Discharge Riboflavin (Vitamin B2) [Vitamin B2] 300 mg PO DAILY@1700 11/10/16 Ascorbic Acid [Vitamin C] 500 mg PO TID 07/05/18 [place] Carbonate 150 mg PO TID 07/05/18 Furosemide [Lasix] 40 mg PO DAILY 08/11/18 Magnesium 500 mg PO BID 08/11/18 Sennosides/Docusate Sodium [Senna-S Laxative Tablet] 2 each PO DAILY 08/11/18 Atorvastatin Calcium [Lipitor] 40 mg PO QHS 11/06/18 Carvedilol [Coreg (Beta Krissy)] 3.125 mg PO QHS 11/06/18 Isosorbide Mononitrate 10 mg PO QHS 11/06/18 Morphine Sulfate [Morphine Sulfate ER] 15 mg PO BID 11/06/18 Multivitamins,Ther W-Minerals [Multivitamin With Minerals] 1 tablet PO DAILY 11/06/18 Pyridoxine HCl [Vitamin B-6] 100 mg PO DAILY 11/06/18 Tamsulosin HCl [Flomax] 0.4 mg PO 1700 11/06/18 Docusate Sodium [Colace] 200 mg PO DAILY PRN PRN 05/13/19 Mineral Oil/Petrolatum,White [Eucerin] 1 applic TOPICAL BID 05/13/19 Baclofen 5 mg PO TID PRN PRN #20 tab 05/16/19 Ciprofloxacin [Cipro] 500 mg PO BID #10 tab 05/16/19 Collagenase [Santyl] 1 applic TOPICAL DAILY #1 tube 05/16/19 Duloxetine Hcl [Cymbalta] 30 mg PO DAILY #0 05/16/19 Gabapentin [Neurontin] 300 mg PO TID #0 05/16/19 Linezolid [Zyvox] 600 mg PO BID #10 tab 05/16/19 traZODone [Desyrel] 25 mg PO QHS #0 05/16/19 Following Prescrptions Were Given to Patient: Baclofen 5 mg PO TID PRN PRN #20 tab PRN Reason: muscle spasm Transmission Status: Received by [id number] Ciprofloxacin [Cipro] 500 mg PO BID #10 tab Transmission Status: Received by [id number] Collagenase [Santyl] 1 applic TOPICAL DAILY #1 tube Transmission Status: Received by [id number] Linezolid [Zyvox] 600 mg PO BID #10 tab Transmission Status: Received by [id number] Primary Care Physician: Eris Melendez MD [Primary Care Provider] - Please follow up with your Primary Care Physician in: in 1-2 week Please Follow Up With: Clinic,Wound When: next Wed with Dr Naranjo Please Follow Up With: Jose Robert MD When: in 2 weeks Medical Necessity - Tobacco Use Smoking Status: Unknown if ever smoked Tobacco Use: Non-smoker Meaningful Use Info Meaningful Use Diagnoses (Choose all that apply): None applicable Code Visit Inpatient E&M: 43480 Disch Hosp
[2019-05-16] MEDS: tiZANidine HCl 2 MG Tablet PO (14:17)
[2019-05-16 14:42] VITALS: BP 164/74; PULSE 88; RESP 18; TEMP 37.2; O2SAT 98
--- NOTE | 2019-05-17 15:50 | CASEMGMT ---
BHARTI AGUERO Discharge Follow-up Phone Call: EB: Krishna Strata: 4 Call Date: 05/17/19 Discharge Date: 05/16/19 Time of Call: 1550 Duration: Admitting Diagnosis: Cellulitis, failed outpt treatment BHARTI AGUERO completed follow-up phone call after recently hospitalization. Patient states that he is doing okay and that home health had been out to complete his dressing change. Patient was able to fill his prescriptions without any issues. There was some confusion regarding the muscle relaxer prior to discharge from the hospital. Patient is aware of his follow-up appts. Patient voiced no further concerns.
== END 2019-05-16 15:08 | disposition home health service (06) | DRG 603 ==
LOC: ED 17:51 → MS3 18:46
PROVIDERS: Physician Assistant; Admitting Provider Family Medicine; Emergency Provider Emergency Medicine; Family Provider Family Medicine; PCP Family Medicine; Visit Provider Internal Medicine
DX: L03.116 Cellulitis of left lower limb (principal); G82.20 Paraplegia, unspecified; I73.9 Peripheral vascular disease, unspecified; E78.5 Hyperlipidemia, unspecified; I10 Essential (primary) hypertension; D64.9 Anemia, unspecified; R32 Unspecified urinary incontinence; L89.519 Pressure ulcer of right ankle, unspecified stage; Z95.828 Presence of other vascular implants and grafts; Z86.61 Personal history of infections of the central nervous system; Z86.718 Personal history of other venous thrombosis and embolism
CPT/HCPCS: 36415; 73630; 73718; 80048; 80202; 83605; 83735; 85025; 87040; 87070; 87075; 87205; 87640; 93971; 97802; 99284; J7040; J7050; A4216; J0744

== ENCOUNTER 2019-05-22 11:00 | Outpatient (RCR) | payer MEDICARE, OTHER, SELFPAY ==
[2019-04-27 00:46] VITALS: BP 147/75; PULSE 69; RESP 18; TEMP 35.5
[2019-05-01 11:04] VITALS: BP 134/68; PULSE 72; RESP 16; TEMP 36.6; BMI 24.3
--- NOTE | 2019-05-01 13:25 | PN.PCM_ITS ---
(1) Chronic ulcer of left foot with fat layer exposed Status: Acute Code(s): L97.522 - Non-pressure chronic ulcer of other part of left foot with fat layer exposed (2) Ulcer of right lower extremity with fat layer exposed Status: Resolved Code(s): L97.912 - Non-pressure chronic ulcer of unspecified part of right lower leg with fat layer exposed (3) Ulcer of right foot with fat layer exposed Status: Resolved Code(s): L97.512 - Non-pressure chronic ulcer of other part of right foot with fat layer exposed Comment: previously unstageable pressure ulcer (4) Paralysis Status: Chronic Code(s): G83.9 - Paralytic syndrome, unspecified (5) Malnutrition Status: Chronic Code(s): E46 - Unspecified protein-calorie malnutrition (6) Edema leg Status: Chronic Code(s): R60.0 - Localized edema Type of Wound Date of Service: 05/01/19 Chief Complaint: New left toe ulcer. Right leg ulcer healed History of Wound: This 83-year-old male with multiple comorbidities was seen at the wound healing center for ulcer to the right lateral leg and also a new injury he sustained on the left great toe. The left great toe injury happened when he likely bumped into something on 04/26/2019. He did present to the emergency room for evaluation on 04/27/2019 in which he was evaluated by Dr. Vigil and xrays were obtained. He had a recent resolution of right lower extremity cellulitis. He has completed a successful course of Levaquin and Linezolid. He wears Tubigrip for compression therapy. He was advised to elevate his legs to reduce the swelling he relates he is unable to do so because he has been outside a lot last week. He had previously completed a vascular leavitt rgery evaluation with Dr. De Anda and an Angio without any identifiable intervention noted. He denies fever, chill, nausea, vomiting. He is a paraplegic and presents in a wheelchair. He continues to take Fred supplementation. He uses bilateral donut offloading pillows and this helps keep pressure off the sites. Progress of Wound: New left hallux ulcer with fat layer exposed. Cellulitis resolved right lower extremity. Healed right leg - Physical Exam Vital Signs Temp Pulse Resp BP 97.8 F 72 16 134/68 H 05/01/19 11:04 05/01/19 11:04 05/01/19 11:04 05/01/19 11:04 General: Alert, Oriented x3, Cooperative, No apparent distress Extremities: No cyanosis, Capillary Refill Less than 3 Seconds, No Calf Tenderness - Negative breath and bilateral, Diminished Peripheral Pulses, Edema - Decreased bilateral lower extremities, - - Bilateral lower extremity paraly sis; wheelchair noted Skin: Ulcer/ Wound - No purulence, erythema, streaking, odor, infection bilateral lower extremities. Peripheral skin is hairless and atrophic, - - Full epithelialization was noted to right and left leg. New skin discontinuity to distal left hallux is noted with granulation tissue exposed. No deep tissue probing or necrosis noted Wound Measurements and Assessment WC - Nurse 1 - General Ulcer Measurement Start: 05/01/19 11:04 Freq: Status: Active Protocol: Activity Type Activity Date Activity User E-Sign Co-Sign Detail Recorded Client Recorded Date Recorded By Document 05/01/19 11:04 CAMERON [id number] 05/01/19 11:18 CAMERON 05/01/19 11:04 Wound Center Nurse 1 [Ulcer Assessment] #7 Lateral RLE -Combined with other wound No -Current Size (cm) - Length 0 -Current Size (cm) - Width 0 -Current Size (cm) - Depth 0 -Total Square Cm 0 -Photo Taken Yes -Epithelialization Large 67-100% -Tunneling No -Undermining/Tunneling No -Circular Undermining No [Edema Assessment] -Lower Limb Edema Present No -Right Calf (cm) 27.4 -Right Ankle (cm) 21.0 - Nurse 2 - General Ulcer CM Notes Start: 05/01/19 11:04 Freq: Status: Active Protocol: Activity Type Activity Date Activity User E-Sign Co-Sign Detail Recorded Client Recorded Date Recorded By Document 05/01/19 12:01 CRISTIANO [id number] 05/01/19 12:04 AN 05/01/19 12:01 Wound Center Nurse 2 [Procedure/Treatment] #8 left great toe -Time 12:03 -Correct Patient Yes -Correct Side, Site, Position Yes -Correct Procedure Yes -Procedure Performed No -Post Debridement Size (cm) - Length 1.2 -Post Debridement Size (cm) - Width 1.0 -Post Debridement Size (cm) - Depth 0.1 -Total Square Cm 1.20 -Wound/Ulcer Outcome Not Healed -Ulcer Cleansing Rinsed/ Irrigated with Saline -Foul Odor after Cleansing No -Bioengineered Tissue No -Treatment Response Procedure Tolerated Well [See Physician Procedure note for Specifics] Pain Scale: 0-10 Numeric [Pain] -Is Patient Pain Free? Yes Musculoskeletal: No Tenderness to Palpation of Joints or Extremities, Muscle Wasting Neurological: - - Lack of normal epicritic sensation light touch bilateral lower extremities Psych/Mental Status: Normal Affect, Appropriate Debridement Note Post-Debridement Measurements/Treatment WC - Nurse 2 - General Ulcer CM Notes Start: 05/01/19 11:04 Freq: Status: Active Protocol: Activity Type Activity Date Activity User E-Sign Co-Sign Detail Recorded Client Recorded Date Recorded By Document 05/01/19 12:01 AN [id number] 05/01/19 12:04 AN 05/01/19 12:01 Wound Center Nurse 2 #8 left great toe -Time 12:03 -Correct Patient Yes -Correct Side, Site, Position Yes -Correct Procedure Yes -Procedure Performed No -Post Debridement Size (cm) - Length 1.2 -Post Debridement Size (cm) - Width 1.0 -Post Debridement Size (cm) - Depth 0.1 -Total Square Cm 1.20 -Wound/Ulcer Outcome Not Healed -Ulcer Cleansing Rinsed/ Irrigated with Saline -Foul Odor after Cleansing No -Bioengineered Tissue No -Treatment Response Procedure Tolerated Well Pain Scale: 0-10 Numeric Is Patient Pain Free? Yes No debridement was completed today Assessment/Plan Assessment: New left hallux ulcer secondary to trauma complicated with comorbidities with fat layer exposed left hallux, no infection. Edema right lower extremity, improving. Cellulitis resolved right lower extremity. Right lateral leg ulcer, healed. Peripheral vascular disease with rest pain. Other comorbidities. Delayed healing. Malnutrition. Paralysis and gait impairment with wheelchair use Plan: I reviewed and discussed his case today. Debridement was not performed today due to the acute nature of the left hallux ulcer. The other previously treated ulcer sites have healed and full epithelialization is noted. To change the dressing daily to new wound site with hydrogel and Adaptic. To monitor recently healed ulcer sites closely due to overall fragility. His emergency r oom physician encounter from 04/27/2018 was reviewed. He was considered stable and was sent home with a wound care plan. His x-rays were reviewed from [facility] which did not demonstrate any acute fracture dislocation, osseous destruction, soft tissue emphysema, foreign body or other acute findings. It is noted he is completed the recommended Levaquin and linezolid antibiotics. No cellulitis signs are noted today locally or systemically. To continue Tubigrip for edema management. I also recommended he elevate his limb at least 15 minutes every hour after above the level of his heart. This is imperative for his treatment plan and compliance was discussed. He had previous noninvasive vascular studies performed which demonstrated noncompressible vessels in which ankle-brachial indices were not calculated. This is consistent with rest pain as well as multisegmental occlusive disease and vessel calcification. He did go for consultation with Dr. De Anda previously who formed an angioplasty to her in which intervention options were not identified. It is noted he does have perfusion opportunities available to the lower extremity on the right side. His labs were updated previously and discussed in his white blood cell count is 6.0, sedimentation rate 14, and hemoglobin A1c 5.8%. His updated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 x-rays do not demonstrate osseous destruction, pe riosteal reaction, soft tissue emphysema, acute fracture dislocation, or foreign body. Vessel calcification is seen on plain x-ray consistent with vessel disease of the right lower extremity. To continue with nutritional supplementation, Fred. To return to clinic in 2 weeks for physician reevaluation or call sooner if he has any questions or concerns.
[2019-05-22 11:29] VITALS: BP 149/86; PULSE 92; RESP 20; TEMP 36.3; BMI 24.3
--- NOTE | 2019-05-22 13:11 | PN.PCM_ITS ---
(1) Chronic ulcer of left foot with fat layer exposed Status: Acute Current Visit: Yes Code(s): L97.522 - Non-pressure chronic ulcer of other part of left foot with fat layer exposed (2) Ulcer of right lower extremity with fat layer exposed Status: Acute Current Visit: Yes Code(s): L97.912 - Non-pressure chronic ulcer of unspecified part of right lower leg with fat layer exposed (3) Paralysis Status: Chronic Current Visit: Yes Code(s): G83.9 - Paralytic syndrome, unspecified (4) Malnutrition Status: Chronic Current Visit: Yes Code(s): E46 - Unspecified protein- calorie malnutrition (5) Edema leg Status: Chronic Current Visit: Yes Code(s): R60.0 - Localized edema Type of Wound Date of Service: 05/22/19 Chief Complaint: New left toe ulcer. Right leg ulcer healed History of Wound: This 83-year-old male with multiple comorbidities was seen at the wound healing center for ulcer to the right lateral ankle and left dorsal foot that are relatively new within the past few weeks and he was treated with hospitalization for IV antibiotics secondary to cellulitis. He completed the recommended antibiotics from infectious disease and will follow up on June 05. He denies fever, chill, nausea, vomiting. His other ulcer sites remain healed. He continues to use the donut offloading pillow for the right limb. Progress of Wound: New left hallux ulcer with fat layer exposed. Cellulitis r esolved right lower extremity. Healed right leg - Physical Exam Vital Signs Temp Pulse Resp BP 97.4 F L 92 20 H 149/86 H 05/22/19 11:29 05/22/19 11:29 05/22/19 11:29 05/22/19 11:29 General: Alert, Oriented x3, Cooperative, No apparent distress HEENT: Atraumatic Extremities: No cyanosis, Capillary Refill Less than 3 Seconds, No Calf Tenderness, Diminished Peripheral Pulses, Edema - Mild bilateral lower extremities, - - Paralysis bilateral lower extremities Skin: Ulcer/ Wound - No purulence, erythema, streaking, odor, or infection or deep tissue exposure. The peripheral skin is healthy atrophic. There is an eschar to the right lateral ankle upon debridement there is granular and fibrous base. There is eschar and fibrous tissue to the medial aspect of the dorsal left foot ulcer site. No tendon or bone is exposed bilateral. Wound Measurements and Assessment WC - Nurse 1 - General Ulcer Measurement Start: 05/01/19 11:04 Freq: Status: Active Protocol: Activity Type Activity Date Activity User E-Sign Co-Sign Detail Recorded Client Recorded Date Recorded By Document 05/22/19 11:29 [id number] 05/22/19 11:58 05/22/19 11:29 Wound Center Nurse 1 [Ulcer Assessment] #10 RIGHT LATERAL ANKLE -Current Size (cm) - Length 1.7 -Current Size (cm) - Width 0.9 -Current Size (cm) - Depth 0.1 -Total Square Cm 1.53 -Date of Last Picture (Recall this 05/20/19 field) -Photo Taken Yes -Tunneling No -Undermining/Tunneling No -Circular Undermining No -Wound Margin Distinct, Outline Attached -Granulation Amt Medium (34-66%) -Slough/Fibrin Yes -Necrosis Amt None Present (0 %) -Structure Exposed None/Limited to Skin Breakdown -Texture (Denisse-wound Skin Appearance) No Abnormality -Moisture (Denisse-wound Skin Appearance No Abnormality ) -Color (Denisse-wound Skin Appearance) Erythema -Temperature (Denisse-wound Skin No Abnormality Appearance) (Pt Warm) -Tenderness on Palpation (Denisse-wound No Skin Appearance) -Ulcer Cleansing Rinsed/ Irrigated with Saline -Foul Odor after Cleansing No -Anesthetic Used 5% Lidocaine Gel #9 LEFT MEDIAL DORSAL -Combined with other wound No -Current Size (cm) - Length 1.5 -Current Size (cm) - Width 4.8 -Current Size (cm) - Depth 0.1 -Total Square Cm 7.20 -Date of Last Picture (Recall this 05/20/19 field) -Photo Taken Yes -Epithelialization None Present -Tunneling No -Undermining/Tunneling No -Circular Undermining No -Exudate Amt Small -Exudate Type Serosanguineous -Wound Margin Distinct, Outline Attached -Granulation Amt Small (1-33%) -Slough/Fibrin Yes -Necrotic Tissue Type Adherent Slough -Structure Exposed None/Limited to Skin Breakdown -Texture (Denisse-wound Skin Appearance) No Abnormality -Moisture (Denisse-wound Skin Appearance Weeping ) -Color (Denisse-wound Skin Appearance) Erythema -Temperature (Denisse-wound Skin No Abnormality Appearance) (Pt Warm) -Tenderness on Palpation (Denisse-wound No Skin Appearance) -Ulcer Cleansing Rinsed/ Irrigated with Saline -Foul Odor after Cleansing No -Anesthetic Used 5% Lidocaine Gel #8 left great toe -Combined with other wound No -Current Size (cm) - Length 0 -Current Size (cm) - Width 0 -Current Size (cm) - Depth 0 -Total Square Cm 0 -Photo Taken No [Edema Assessment] -Lower Limb Edema Present No WC - Nurse 2 - General Ulcer CM Notes Start: 05/01/19 11:04 Freq: Status: Active Protocol: Activity Type Activity Date Activity User E-Sign Co-Sign Detail Recorded Client Recorded Date Recorded By Document 05/22/19 12:08 CAMERON [id number] 05/22/19 12:10 CAMERON 05/22/19 12:08 Wound Center Nurse 2 [Procedure/Treatment] #10 RIGHT LATERAL ANKLE -Time 12:08 -Correct Patient Yes -Correct Side, Site, Position Yes -Correct Procedure Yes -Procedure Performed Yes -Type of Procedure Debridement -Clinical Debridement Subcutaneous -Post Debridement Size (cm) - Length 1.8 -Post Debridement Size (cm) - Width 0.9 -Post Debridement Size (cm) - Depth 0.1 -Total Square Cm 1.62 -Wound/Ulcer Outcome Not Healed -Ulcer Cleansing Rinsed/ Irrigated with Saline -Foul Odor after Cleansing No -Bioengineered Tissue No -Bleeding Controlled with Pressure -Offloading No -Treatment Response Procedure Tolerated Well #9 LEFT MEDIAL DORSAL -Time 12:08 -Correct Patient Yes -Correct Side, Site, Position Yes -Correct Procedure Yes -Procedure Performed Yes -Type of Procedure Debridement -Clinical Debridement Subcutaneous -Post Debridement Size (cm) - Length 1.5 -Post Debridement Size (cm) - Width 4.7 -Post Debridement Size (cm) - Depth 0.1 -Total Square Cm 7.05 -Wound/Ulcer Outcome Not Healed -Ulcer Cleansing Rinsed/ Irrigated with Saline -Foul Odor after Cleansing No -Bioengineered Tissue No -Bleeding Controlled with Pressure -Offloading No -Treatment Response Procedure Tolerated Well #8 left great toe -Correct Patient No -Correct Side, Site, Position No -Correct Procedure No -Procedure Performed No -Post Debridement Size (cm) - Length 0 -Post Debridement Size (cm) - Width 0 -Post Debridement Size (cm) - Depth 0 -Total Square Cm 0 -Wound/Ulcer Outcome Healed- Epithelialized [See Physician Procedure note for Specifics] Pain Scale: 0-10 Numeric [Pain] -Is Patient Pain Free? Yes Musculoskeletal: No Tenderness to Palpation of Joints or Extremities, Muscle Wasting, Tenderness - No pain with also manipulation of debridement bilateral, - - Compartments are soft to palpate bilateral lower extremities Neurological: - - Lack of upper critic sensation bilateral lower extremities to light touch Psych/Mental Status: Normal Affect, Appropriate Debridement Note Post-Debridement Measurements/Treatment WC - Nurse 2 - General Ulcer CM Notes Start: 05/01/19 11:04 Freq: Status: Active Protocol: Activity Type Activity Date Activity User E-Sign Co-Sign Detail Recorded Client Recorded Date Recorded By Document 05/01/19 12:01 AN [id number] 05/01/19 12:04 AN Document 05/22/19 12:08 CAMERON [id number] 05/22/19 12:10 CAMERON 05/01/19 05/22/19 12:01 12:08 Wound Center Nurse 2 #10 RIGHT LATERAL ANKLE -Time 12:08 -Correct Patient Yes -Correct Side, Site, Position Yes -Correct Procedure Yes -Procedure Performed Yes -Type of Procedure Debridement -Clinical Debridement Subcutaneous -Post Debridement Size (cm) - Length 1.8 -Post Debridement Size (cm) - Width 0.9 -Post Debridement Size (cm) - Depth 0.1 -Total Square Cm 1.62 -Wound/Ulcer Outcome Not Healed -Ulcer Cleansing Rinsed/ Irrigated with Saline -Foul Odor after Cleansing No -Bioengineered Tissue No -Bleeding Controlled with Pressure -Offloading No -Treatment Response Procedure Tolerated Well #9 LEFT MEDIAL DORSAL -Time 12:08 -Correct Patient Yes -Correct Side, Site, Position Yes -Correct Procedure Yes -Procedure Performed Yes -Type of Procedure Debridement -Clinical Debridement Subcutaneous -Post Debridement Size (cm) - Length 1.5 -Post Debridement Size (cm) - Width 4.7 -Post Debridement Size (cm) - Depth 0.1 -Total Square Cm 7.05 -Wound/Ulcer Outcome Not Healed -Ulcer Cleansing Rinsed/ Irrigated with Saline -Foul Odor after Cleansing No -Bioengineered Tissue No -Bleeding Controlled with Pressure -Offloading No -Treatment Response Procedure Tolerated Well #8 left great toe -Time 12:03 -Correct Patient Yes No -Correct Side, Site, Position Yes No -Correct Procedure Yes No -Procedure Performed No No -Post Debridement Size (cm) - Length 1.2 0 -Post Debridement Size (cm) - Width 1.0 0 -Post Debridement Size (cm) - Depth 0.1 0 -Total Square Cm 1.20 0 -Wound/Ulcer Outcome Not Healed Healed- Epithelialized -Ulcer Cleansing Rinsed/ Irrigated with Saline -Foul Odor after Cleansing No -Bioengineered Tissue No -Treatment Response Procedure Tolerated Well Pain Scale: 0-10 Numeric Is Patient Pain Free? Yes Yes Wound debrided: lateral ankle Laterality: Right Type of Debridement: Excisional debridement Anesthesia Used: 5% Lidocaine Gel Depth: in the subcutaneous layer Percentage of wound debrided: 100 Instrument Used: #15 blade Tissue Removed: fibrous, devitalized subcutaneous, biofilm, slough Severity: Fat Layer Exposed Amount of bleeding with debridement: Mild Bleeding Controlled with: Pressure Patient tolerated procedure well - Additional Wound Wound debrided: dorsal foot Laterality: Left Type of Debridement: Excisional debridement Anesthesia Used: 5% Lidocaine Gel Depth: in the subcutaneous layer Percentage of wound debrided: 100 Instrument Used: #15 blade Tissue Removed: fibrous, devitalized subcutaneous, biofilm, slough Severity: Fat Layer Exposed Amount of bleeding with debridement: Mild Bleeding Controlled with: Pressure Patient tolerated procedure: Patient tolerated procedure well Assessment/Plan Active Problems (Last Reviewed 08/13/18 @ 10:19 by Fernando Patterson MD) Ulcer of right lower extremity with fat layer exposed (Acute) Chronic ulcer of left foot with fat layer exposed (Acute) Paralysis (Chronic) Malnutrition (Chronic) Edema leg (Chronic) Assessment: Healed left hallux ulcer secondary to trauma. Right pressure ulcer lateral ankle fat layer exposed and cellulitis resolved left dorsal foot Ulcer fat layer exposed and cellulitis resolved. Edema right lower extremity, improving. Right and left lateral leg ulcers, remains healed. Peripheral vascular disease with rest pain. Other comorbidities. Delayed healing. Malnutrition. Paralysis and gait impairment with wheelchair use Plan: I reviewed and discussed his case today. His recent hospitalization is noted and I followed him closely while in the hospital. The ulcer sites were debrided today as noted in the clinical panel. To change the dressing to both sides daily with Santyl. Will consider epi fix application if lack of healing is still noted at the one month wound marker. To offload with donut pillow. To use Tubigrip's or Edi wraps; he prefers use Edi wrap at this time. To monitor recently healed ulcer sites closely due to overall fragility. . It is noted he is completed the recommended antibiotics by infectious disease and his cellul itis has resolved. He also does not demonstrate signs of systemic illness. He will follow-up with infectious disease on June 05 at the wound healing center. He had previous noninvasive vascular studies performed which demonstrated noncompressible vessels in which ankle-brachial indices were not calculated. This is consistent with rest pain as well as multisegmental occlusive disease and vessel calcification. He did go for consultation with Dr. De Anda previously who formed an angioplasty to her in which intervention options were not identified. It is noted he does have perfusion opportunities available to the lower extremity on the right side. To continue with nutritional supplementation, Fred. To return to clinic in 1 week for physician reevaluation or call sooner if he has any questions or concerns.
== END 2019-05-26 23:59 ==
LOC: WC 11:00
PROVIDERS: Family Provider Family Medicine; PCP Family Medicine; Referring Provider Podiatrist; Visit Provider Podiatrist
DX: I73.9 Peripheral vascular disease, unspecified (principal); G82.20 Paraplegia, unspecified; R60.0 Localized edema; L97.522 Non-pressure chronic ulcer of other part of left foot with fat layer exposed; L97.312 Non-pressure chronic ulcer of right ankle with fat layer exposed
CPT/HCPCS: 11042; 99212; G0463

== ENCOUNTER 2019-06-26 11:45 | Outpatient (RCR) | payer MEDICARE, OTHER, SELFPAY ==
[2019-05-27 00:32] VITALS: BP 149/86; PULSE 92; RESP 20; TEMP 36.3
[2019-05-29 11:49] VITALS: BP 134/86; PULSE 73; RESP 18; TEMP 36.2; BMI 24.3
--- NOTE | 2019-05-29 12:04 | WC ---
pt right armas has a mild abrasion . pt states not sure how he injured sinece last week. pt also states he has a reoccuring buttock wound pt will make an appointment next week to visit Dr Kennedy to look at wound
--- NOTE | 2019-05-29 14:38 | PCM.WC.PN ---
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 Current Visit: Yes Code(s): L97.522 - Non-pressure chronic ulcer of other part of left foot with fat layer exposed (3) Malnutrition Status: Chronic Current Visit: Yes Code(s): E46 - Unspecified protein-calorie malnutrition (4) Delayed wound healing Status: Chronic Current Visit: Yes Code(s): T14.8XXD - Other injury of unspecified body region, subsequent encounter (5) Edema leg Status: Chronic Current Visit: Yes Code(s): R60.0 - Localized edema (6) Paralysis Status: Chronic Current Visit: Yes Code(s): G83.9 - Paralytic syndrome, unspecified Type of Wound Date of Service: 05/31/19 Chief Complaint: Right ankle ulcer. New right leg ulcer. Left foot ulcer History of Wound: This 83-year-old male with multiple comorbidities was seen at the wound healing center for ulcer to the right lateral ankle and left dorsal foot that are relatively new within the past few weeks and he was treated with hospitalization for IV antibiotics secondary to cellulitis. His cellulitis has resolved. He also reports a new right armas ulcer with an onset of this past week. He completed the recommended antibiotics from infectious disease and will follow up on June 05. He denies fever, chill, nausea, vomiting. His other ulcer sites remain healed. He is return to Tubigrip use as advised. Progress of Wound: New right leg ulcer. Improving right ankle ulcer. Improving left foot ulcer. Cellulitis resolved right and left lower extremity. - Physical Exam Vital Signs Temp Pulse Resp BP 97.1 F L 73 18 134/86 H 05/29/19 11:49 05/29/19 11:49 05/29/19 11:49 05/29/19 11:49 General: Alert, Oriented x3, Cooperative, No apparent distress Extremities: No cyanosis, Capillary Refill Less than 3 Seconds, No Calf Tenderness - Negative Ayanna and Ortega sign bilateral. Compartments are soft to palpate and there is no bogginess or fluctuance on palpation, Diminished Peripheral Pulses, Edema - Mild bilateral decreased compared to prior exams Skin: Ulcer/ Wound - There is no purulence, erythema hamstring, odor, infection, necrosis or deep tissue necrosis noted or eschar bilateral lower extremities. There is a new skin discontinuity to the anterior right leg, - - The peripheral skin is hairless and atrophic bilateral Wound Measurements and Assessment WC - Nurse 1 - General Ulcer Measurement Start: 05/29/19 11:49 Freq: Status: Active Protocol: Activity Type Activity Date Activity User E-Sign Co-Sign Detail Recorded Client Recorded Date Recorded By Document 05/29/19 11:49 RB [id number] 05/29/19 12:07 RB 05/29/19 11:49 Wound Center Nurse 1 [Ulcer Assessment] #10 RIGHT LATERAL ANKLE -Combined with other wound No -Current Size (cm) - Length 0.6 -Current Size (cm) - Width 0.6 -Current Size (cm) - Depth 0.1 -Total Square Cm 0.36 -Tunneling No -Undermining/Tunneling No -Circular Undermining No -Exudate Amt Small -Exudate Type Serosanguineous -Wound Margin Flat & Intact -Granulation Amt Medium (34-66%) -Granulation Quality [place] -Slough/Fibrin Yes -Necrosis Amt Medium (34-66%) -Necrotic Tissue Type Adherent Slough -Structure Exposed N/A -Texture (Denisse-wound Skin Appearance) Assessed -Moisture (Denisse-wound Skin Appearance Dry/Scaly ) -Color (Denisse-wound Skin Appearance) Assessed -Temperature (Denisse-wound Skin No Abnormality Appearance) (Pt Warm) -Tenderness on Palpation (Denisse-wound No Skin Appearance) -Ulcer Cleansing Wound Cleanser -Foul Odor after Cleansing No -Anesthetic Used 5% Lidocaine Gel #9 LEFT MEDIAL DORSAL -Combined with other wound No -Current Size (cm) - Length 0.9 -Current Size (cm) - Width 5.8 -Current Size (cm) - Depth 0.1 -Total Square Cm 5.22 -Tunneling No -Undermining/Tunneling No -Circular Undermining No -Exudate Amt Small -Exudate Type Serosanguineous -Wound Margin Distinct, Outline Attached -Granulation Amt Medium (34-66%) -Granulation Quality [place] -Slough/Fibrin Yes -Necrosis Amt Medium (34-66%) -Necrotic Tissue Type Adherent Slough -Structure Exposed N/A -Texture (Denisse-wound Skin Appearance) Assessed -Moisture (Denisse-wound Skin Appearance Dry/Scaly ) -Color (Denisse-wound Skin Appearance) Assessed -Temperature (Denisse-wound Skin No Abnormality Appearance) (Pt Warm) -Tenderness on Palpation (Denisse-wound No Skin Appearance) -Ulcer Cleansing Rinsed/ Irrigated with Saline -Foul Odor after Cleansing No -Anesthetic Used 5% Lidocaine Gel #7 Lateral RLE -Combined with other wound No -Current Size (cm) - Length 0.1 -Current Size (cm) - Width 0.1 -Current Size (cm) - Depth 0.1 -Total Square Cm 0.01 -Tunneling No -Undermining/Tunneling No -Circular Undermining No -Exudate Amt None Present -Wound Margin Flat & Intact -Granulation Amt Small (1-33%) -Granulation Quality [place] -Slough/Fibrin Yes -Necrosis Amt Large (67-100%) -Necrotic Tissue Type Adherent Slough -Structure Exposed N/A -Texture (Denisse-wound Skin Appearance) Assessed -Moisture (Denisse-wound Skin Appearance Dry/Scaly ) -Color (Denisse-wound Skin Appearance) Assessed -Temperature (Denisse-wound Skin No Abnormality Appearance) (Pt Warm) -Tenderness on Palpation (Denisse-wound No Skin Appearance) -Ulcer Cleansing Rinsed/ Irrigated with Saline -Foul Odor after Cleansing No -Anesthetic Used 5% Lidocaine Gel [Edema Assessment] -Lower Limb Edema Present Yes -Right Calf (cm) 28 -Right Ankle (cm) 21 -Left Calf (cm) 31 -Left Ankle (cm) 23 05/29/19 12:04 Wound Center by Tricia Hernandez pt right armas has a mild abrasion . pt states not sure how he injured sinece last week. pt also states he has a reoccuring buttock wound pt will make an appointment next week to visit Dr Kennedy to look at wound Initialized on 05/29/19 12:04 - END OF NOTE WC - Nurse 2 - General Ulcer CM Notes Start: 05/29/19 11:49 Freq: Status: Active Protocol: Activity Type Activity Date Activity User E-Sign Co-Sign Detail Recorded Client Recorded Date Recorded By Document 05/29/19 12:34 CAMERON [id number] 05/29/19 12:36 CAMERON 05/29/19 12:34 Wound Center Nurse 2 [Procedure/Treatment] #10 RIGHT LATERAL ANKLE -Time 12:34 -Correct Patient Yes -Correct Side, Site, Position Yes -Correct Procedure Yes -Procedure Performed Yes -Type of Procedure Debridement -Clinical Debridement Subcutaneous -Post Debridement Size (cm) - Length 0.6 -Post Debridement Size (cm) - Width 0.6 -Post Debridement Size (cm) - Depth 0.2 -Total Square Cm 0.36 -Wound/Ulcer Outcome Not Healed -Ulcer Cleansing Rinsed/ Irrigated with Saline -Foul Odor after Cleansing No -Bioengineered Tissue No -Bleeding Controlled with Pressure -Offloading No -Treatment Response Procedure Tolerated Well #9 LEFT MEDIAL DORSAL -Time 12:34 -Correct Patient Yes -Correct Side, Site, Position Yes -Correct Procedure Yes -Procedure Performed Yes -Type of Procedure Debridement -Clinical Debridement Subcutaneous -Post Debridement Size (cm) - Length 1 -Post Debridement Size (cm) - Width 5.8 -Post Debridement Size (cm) - Depth 0.1 -Total Square Cm 5.8 -Wound/Ulcer Outcome Not Healed -Ulcer Cleansing Rinsed/ Irrigated with Saline -Foul Odor after Cleansing No -Bioengineered Tissue No -Bleeding Controlled with Pressure -Offloading No -Treatment Response Procedure Tolerated Well #7 Lateral RLE -Time 12:35 -Correct Patient Yes -Correct Side, Site, Position Yes -Correct Procedure Yes -Procedure Performed Yes -Type of Procedure Debridement -Clinical Debridement Subcutaneous -Post Debridement Size (cm) - Length 0.8 -Post Debridement Size (cm) - Width 1.6 -Post Debridement Size (cm) - Depth 0.1 -Total Square Cm 1.28 -Wound/Ulcer Outcome Not Healed -Ulcer Cleansing Rinsed/ Irrigated with Saline -Foul Odor after Cleansing No -Bioengineered Tissue No -Bleeding Controlled with Pressure -Offloading No -Treatment Response Procedure Tolerated Well [See Physician Procedure note for Specifics] Pain Scale: 0-10 Numeric [Pain] -Is Patient Pain Free? Yes Musculoskeletal: No Tenderness to Palpation of Joints or Extremities, Muscle Wasting - Consistent with paralysis bilateral lower extremities. He is in a wheelchair Neurological: - - Lack of epicritic sensation to light touch bilateral lower extremities Psych/Mental Status: Normal Affect, Appropriate Debridement Note Post-Debridement Measurements/Treatment WC - Nurse 2 - General Ulcer CM Notes Start: 05/29/19 11:49 Freq: Status: Active Protocol: Activity Type Activity Date Activity User E-Sign Co-Sign Detail Recorded Client Recorded Date Recorded By Document 05/29/19 12:34 CAMERON [id number] 05/29/19 12:36 CAMERON 05/29/19 12:34 Wound Center Nurse 2 #10 RIGHT LATERAL ANKLE -Time 12:34 -Correct Patient Yes -Correct Side, Site, Position Yes -Correct Procedure Yes -Procedure Performed Yes -Type of Procedure Debridement -Clinical Debridement Subcutaneous -Post Debridement Size (cm) - Length 0.6 -Post Debridement Size (cm) - Width 0.6 -Post Debridement Size (cm) - Depth 0.2 -Total Square Cm 0.36 -Wound/Ulcer Outcome Not Healed -Ulcer Cleansing Rinsed/ Irrigated with Saline -Foul Odor after Cleansing No -Bioengineered Tissue No -Bleeding Controlled with Pressure -Offloading No -Treatment Response Procedure Tolerated Well #9 LEFT MEDIAL DORSAL -Time 12:34 -Correct Patient Yes -Correct Side, Site, Position Yes -Correct Procedure Yes -Procedure Performed Yes -Type of Procedure Debridement -Clinical Debridement Subcutaneous -Post Debridement Size (cm) - Length 1 -Post Debridement Size (cm) - Width 5.8 -Post Debridement Size (cm) - Depth 0.1 -Total Square Cm 5.8 -Wound/Ulcer Outcome Not Healed -Ulcer Cleansing Rinsed/ Irrigated with Saline -Foul Odor after Cleansing No -Bioengineered Tissue No -Bleeding Controlled with Pressure -Offloading No -Treatment Response Procedure Tolerated Well #7 Lateral RLE -Time 12:35 -Correct Patient Yes -Correct Side, Site, Position Yes -Correct Procedure Yes -Procedure Performed Yes -Type of Procedure Debridement -Clinical Debridement Subcutaneous -Post Debridement Size (cm) - Length 0.8 -Post Debridement Size (cm) - Width 1.6 -Post Debridement Size (cm) - Depth 0.1 -Total Square Cm 1.28 -Wound/Ulcer Outcome Not Healed -Ulcer Cleansing Rinsed/ Irrigated with Saline -Foul Odor after Cleansing No -Bioengineered Tissue No -Bleeding Controlled with Pressure -Offloading No -Treatment Response Procedure Tolerated Well Pain Scale: 0-10 Numeric Is Patient Pain Free? Yes Wound debrided: lateral ankle Laterality: Right Type of Debridement: Excisional debridement Anesthesia Used: 5% Lidocaine Gel Depth: in the subcutaneous layer Percentage of wound debrided: 100 Instrument Used: #15 blade Tissue Removed: fibrous, devitalized subcutaneous, biofilm, slough Severity: Fat Layer Exposed Amount of bleeding with debridement: Mild Bleeding Controlled with: Pressure Patient tolerated procedure well - Additional Wound Wound debrided: anterior leg Laterality: Right Type of Debridement: Excisional debridement Anesthesia Used: 5% Lidocaine Gel Depth: in the subcutaneous layer Percentage of wound debrided: 100 Instrument Used: #15 blade Tissue Removed: fibrous, devitalized subcutaneous, biofilm, slough Severity: Fat Layer Exposed Amount of bleeding with debridement: Mild Bleeding Controlled with: Pressure Patient tolerated procedure: Patient tolerated procedure well - Additional Wound Wound debrided: dorsal foot Laterality: Left Type of Debridement: Excisional debridement Anesthesia Used: 5% Lidocaine Gel Depth: in the subcutaneous layer Percentage of wound debrided: 100 Instrument Used: #15 blade Tissue Removed: fibrous, devitalized subcutaneous, biofilm, slough Severity: Fat Layer Exposed Amount of bleeding with debridement: Mild Bleeding Controlled with: Pressure Patient tolerated procedure: Patient tolerated procedure well Assessment/Plan Active Problems (Last Reviewed 08/13/18 @ 10:19 by Fernando Patterson MD) Ulcer of right lower extremity with fat layer exposed (Chronic) lateral ankle and also new anterior leg ulcer Chronic ulcer of left foot with fat layer exposed (Chronic) Malnutrition (Chronic) Delayed wound healing (Chronic) Edema leg (Chronic) Paralysis (Chronic) Assessment: Right pressure ulcer lateral ankle fat layer exposed and cellulitis resolved left dorsal foot Ulcer fat layer exposed and cellulitis resolved. New right leg ulcer fat layer exposed, no infection. Edema right lower extremity, improving. Peripheral vascular disease with rest pain. Other comorbidities. Delayed healing. Malnutrition. Paralysis and gait impairment with wheelchair use Plan: I reviewed and discussed his case today. His recent hospitalization is noted and I followed him closely while in the hospital. The ulcer sites were debrided today as noted in the clinical panel. To change the dressing to both sides daily with Santyl. Will consider epi fix application if lack of healing is still noted at the one month wound marker. To offload with donut pillow. To use Tubigrip's to bilateral lower extremities with morning application. To monitor recently healed ulcer sites closely due to overall fragility. It is noted he is completed the recommended antibiotics by infectious disease and his cellulitis has resolved. He also does not demonstrate signs of systemic illness. He will follow-up with infectious disease on June 05 at the wound healing center. He had previous noninvasive vascular studies performed which demonstrated noncompressible vessels in which ankle-brachial indices were not calculated. This is consistent with rest pain as well as multisegmental occlusive disease and vessel calcification. He did go for consultation with Dr. De Anda previously who formed an angioplasty to her in which intervention options were not identified. It is noted he does have perfusion opportunities available to the lower extremity on the right side. To continue with nutritional supplementation, Fred. To return to clinic in 1 week for physician reevaluation or call sooner if he has any questions or concerns.
[2019-06-05 11:59] VITALS: BP 129/80; PULSE 72; RESP 18; TEMP 36.6; BMI 24.3
--- NOTE | 2019-06-05 13:38 | PCM.WC.HP ---
(1) Decubitus ulcer of left buttock, stage 2 Status: Acute Current Visit: Yes Code(s): L89.322 - Pressure ulcer of left buttock, stage 2 (2) Paraplegia Status: Chronic Current Visit: Yes Code(s): G82.20 - Paraplegia, unspecified Comment: due to transverse myelitis History of Present Illness Date of Service: 06/05/19 Chief Complaint: Left buttock ulcer. History of Wound: Mr Sabillon is an 83-year-old currently being seen in the wound center for lower extremity ulcers. I was asked to see him due to new onset left buttock ulcer. He has been having episodes of increased watery bowel movement and subsequently developed a ulcer. They have been applying [employer] to the area. Also going to clean up with his primary care physician for management of his diarrhea. Feels well otherwise. 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) Paralysis (Chronic) Other specified peripheral vascular diseases (Chronic) Unstageable pressure ulcer of left foot (Chronic) Unstageable pressure ulcer of right foot (Chronic) Ulcer of left lower extremity with fat layer exposed (Chronic) previously unstageable pressure ulcer Malnutrition (Chronic) Delayed wound healing (Chronic) Edema leg (Chronic) Paralysis (Chronic) Ulcer of right lower extremity with fat layer exposed (Chronic) previously unstageable pressure ulcer Osteomyelitis (Chronic) Chronic pain (Chronic) Nocardia infection (Chronic) 2004, right arm and left leg, 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 Allergies/Adverse Reactions: Allergies Cephalosporins Allergy (Intermediate, Verified 05/13/19 17:10) Laryngospasms Penicillins Allergy (Intermediate, Verified 05/13/19 17:10) Rash IVP DYE Allergy (Uncoded 05/13/19 17:10) Rash Home Medications: Ambulatory Orders Medication Instructions Recorded Riboflavin (Vitamin B2) [Vitamin 300 mg PO DAILY@1700 11/10/16 B2] Ascorbic Acid [Vitamin C] 500 mg PO TID 07/05/18 Bolt Carbonate 150 mg PO TID 07/05/18 Furosemide [Lasix] 40 mg PO DAILY 08/11/18 Magnesium 500 mg PO BID 08/11/18 Sennosides/Docusate Sodium 2 each PO DAILY 08/11/18 [Senna-S Laxative Tablet] Atorvastatin Calcium [Lipitor] 40 mg PO QHS 11/06/18 Carvedilol [Coreg (Beta Krissy)] 3.125 mg PO QHS 11/06/18 Isosorbide Mononitrate 10 mg PO QHS 11/06/18 Morphine Sulfate [Morphine Sulfate 15 mg PO BID 11/06/18 ER] Multivitamins,Ther W-Minerals 1 tablet PO DAILY 11/06/18 [Multivitamin With Minerals] Pyridoxine HCl [Vitamin B-6] 100 mg PO DAILY 11/06/18 Tamsulosin HCl [Flomax] 0.4 mg PO 1700 11/06/18 Docusate Sodium [Colace] 200 mg PO DAILY PRN PRN 05/13/19 Mineral Oil/Petrolatum,White 1 applic TOPICAL BID 05/13/19 [Eucerin] Baclofen 5 mg PO TID PRN PRN #20 tab 05/16/19 Ciprofloxacin [Cipro] 500 mg PO BID #10 tab 05/16/19 Collagenase [Santyl] 1 applic TOPICAL DAILY #1 tube 05/16/19 Duloxetine Hcl [Cymbalta] 30 mg PO DAILY #0 05/16/19 Gabapentin [Neurontin] 300 mg PO TID #0 05/16/19 Linezolid [Zyvox] 600 mg PO BID #10 tab 05/16/19 traZODone [Desyrel] 25 mg PO QHS #0 05/16/19 - Family History Maternal - - , depression Paternal - - Offspring - - 2 children, 4 grand children, 1 great grandchild, all in good health Smoking Status: Unknown if ever smoked Tobacco Use: Non-smoker Review of Systems Constitutional: Denies: Anorexia, Chills, Fever Eyes: Denies: Pain, Redness HEENT: Denies: Difficulty Swallowing Cardiovascular: Denies: Chest Pain, Chest Pressure Respiratory: Denies: Hemoptysis Gastrointestinal: Denies: Abdominal Pain, Hematemesis Skin: Denies: Jaundice - Physical Exam Vital Signs Temp Pulse Resp BP 97.8 F 72 18 129/80 H 06/05/19 11:59 06/05/19 11:59 06/05/19 11:59 06/05/19 11:59 General: Alert, Oriented x3, Cooperative, No apparent distress HEENT: Atraumatic, Normocephalic Oral: Moist Mucosa Neck: Supple Lungs: Normal air movement Extremities: No cyanosis Skin: Ulcer/ Wound Wound Measurements and Assessment WC - Nurse 1 - General Ulcer Measurement Start: 05/29/19 11:49 Freq: Status: Active Protocol: Activity Type Activity Date Activity User E-Sign Co-Sign Detail Recorded Client Recorded Date Recorded By Document 06/05/19 11:59 [id number] 06/05/19 12:03 06/05/19 11:59 Wound Center Nurse 1 [Ulcer Assessment] #12- LT BUTTOCK -Combined with other wound No -Current Size (cm) - Length 0.9 -Current Size (cm) - Width 0.9 -Current Size (cm) - Depth 0.1 -Total Square Cm 0.81 -Date of Last Picture (Recall this 06/05/19 field) -Photo Taken Yes -Epithelialization None Present -Tunneling No -Undermining/Tunneling No -Circular Undermining No -Exudate Amt Small -Exudate Type Serous -Wound Margin Flat & Intact -Granulation Amt Large (67-100%) -Granulation Quality Red -Slough/Fibrin No -Necrosis Amt None Present (0 %) -Texture (Denisse-wound Skin Appearance) Assessed, Scarring -Moisture (Denisse-wound Skin Appearance Assessed ) -Color (Denisse-wound Skin Appearance) Assessed, Erythema -Temperature (Denisse-wound Skin No Abnormality Appearance) (Pt Warm) -Tenderness on Palpation (Denisse-wound No Skin Appearance) -Ulcer Cleansing Rinsed/ Irrigated with Saline -Foul Odor after Cleansing No -Anesthetic Used 5% Lidocaine Gel #11- L LAT LE -Combined with other wound No -Current Size (cm) - Length 1.8 -Current Size (cm) - Width 1.7 -Current Size (cm) - Depth 0.1 -Total Square Cm 3.06 -Date of Last Picture (Recall this 06/05/19 field) -Photo Taken No -Epithelialization None Present -Tunneling No -Undermining/Tunneling No -Circular Undermining No -Exudate Amt Small -Exudate Type Serosanguineous -Wound Margin Flat & Intact -Granulation Amt Medium (34-66%) -Granulation Quality Red -Slough/Fibrin Yes -Necrosis Amt Medium (34-66%) -Necrotic Tissue Type Adherent Slough -Texture (Denisse-wound Skin Appearance) Assessed, Scarring -Moisture (Denisse-wound Skin Appearance Assessed,Dry/ ) Scaly -Color (Denisse-wound Skin Appearance) Assessed, Erythema -Temperature (Denisse-wound Skin No Abnormality Appearance) (Pt Warm) -Tenderness on Palpation (Denisse-wound No Skin Appearance) -Ulcer Cleansing Rinsed/ Irrigated with Saline -Foul Odor after Cleansing No -Anesthetic Used 5% Lidocaine Gel #10 RIGHT LATERAL ANKLE -Combined with other wound No -Current Size (cm) - Length 0.7 -Current Size (cm) - Width 0.3 -Current Size (cm) - Depth 0.1 -Total Square Cm 0.21 -Photo Taken No -Epithelialization None Present -Tunneling No -Undermining/Tunneling No -Circular Undermining No -Exudate Amt Small -Exudate Type Serous -Wound Margin Distinct, Outline Attached -Granulation Amt None Present (0 %) -Slough/Fibrin Yes -Necrosis Amt Large (67-100%) -Necrotic Tissue Type Adherent Slough -Texture (Denisse-wound Skin Appearance) Assessed, Scarring -Moisture (Denisse-wound Skin Appearance Assessed ) -Color (Denisse-wound Skin Appearance) Assessed, Erythema -Temperature (Denisse-wound Skin No Abnormality Appearance) (Pt Warm) -Tenderness on Palpation (Denisse-wound No Skin Appearance) -Ulcer Cleansing Rinsed/ Irrigated with Saline -Foul Odor after Cleansing No -Anesthetic Used 5% Lidocaine Gel #9 LEFT MEDIAL DORSAL FOOT -Combined with other wound No -Current Size (cm) - Length 1.5 -Current Size (cm) - Width 2.4 -Current Size (cm) - Depth 0.2 -Total Square Cm 3.60 -Photo Taken No -Epithelialization None Present -Tunneling No -Undermining/Tunneling No -Circular Undermining No -Exudate Amt Small -Exudate Type Serosanguineous -Wound Margin Flat & Intact -Granulation Amt Medium (34-66%) -Granulation Quality Red -Slough/Fibrin Yes -Necrosis Amt Medium (34-66%) -Necrotic Tissue Type Adherent Slough -Texture (Denisse-wound Skin Appearance) Assessed, Scarring -Moisture (Denisse-wound Skin Appearance Assessed,Dry/ ) Scaly -Color (Denisse-wound Skin Appearance) Assessed, Erythema -Temperature (Denisse-wound Skin No Abnormality Appearance) (Pt Warm) -Tenderness on Palpation (Denisse-wound No Skin Appearance) -Ulcer Cleansing Rinsed/ Irrigated with Saline -Foul Odor after Cleansing No -Anesthetic Used 5% Lidocaine Gel #7 Lateral RLE -Combined with other wound No -Current Size (cm) - Length 4.2 -Current Size (cm) - Width 1.4 -Current Size (cm) - Depth 0.1 -Total Square Cm 5.88 -Photo Taken No -Epithelialization None Present -Tunneling No -Undermining/Tunneling No -Circular Undermining No -Exudate Amt Small -Exudate Type Serosanguineous -Wound Margin Distinct, Outline Attached -Granulation Amt Medium (34-66%) -Granulation Quality Red -Slough/Fibrin Yes -Necrosis Amt Medium (34-66%) -Necrotic Tissue Type Adherent Slough -Texture (Denisse-wound Skin Appearance) Assessed, Scarring -Moisture (Denisse-wound Skin Appearance Assessed,Dry/ ) Scaly -Color (Denisse-wound Skin Appearance) Erythema -Temperature (Denisse-wound Skin No Abnormality Appearance) (Pt Warm) -Tenderness on Palpation (Denisse-wound No Skin Appearance) -Ulcer Cleansing Rinsed/ Irrigated with Saline -Foul Odor after Cleansing No -Anesthetic Used 5% Lidocaine Gel [Edema Assessment] -Lower Limb Edema Present No -Right Calf (cm) 27.1 -Right Ankle (cm) 20.8 -Left Calf (cm) 29.2 -Left Ankle (cm) 22.9 WC - Nurse 2 - General Ulcer CM Notes Start: 05/29/19 11:49 Freq: Status: Active Protocol: Activity Type Activity Date Activity User E-Sign Co-Sign Detail Recorded Client Recorded Date Recorded By Document 06/05/19 12:08 JF [id number] 06/05/19 12:12 JF Document 06/05/19 12:21 MW [id number] 06/05/19 12:28 MW 06/05/19 06/05/19 12:08 12:21 Wound Center Nurse 2 [Procedure/Treatment] #12- LT BUTTOCK -Time 12:21 -Correct Patient Yes -Correct Side, Site, Position Yes -Correct Procedure Yes -Procedure Performed Yes -Type of Procedure Debridement -Clinical Debridement Subcutaneous -Post Debridement Size (cm) - Length 1.7 -Post Debridement Size (cm) - Width 1.7 -Post Debridement Size (cm) - Depth 0.1 -Total Square Cm 2.89 -Wound/Ulcer Outcome Not Healed -Ulcer Cleansing Rinsed/ Irrigated with Saline -Foul Odor after Cleansing No -Bioengineered Tissue No -Bleeding Controlled with Pressure -Offloading No -Treatment Response Procedure Tolerated Well #11- L LAT LE -Time 12:09 -Correct Patient Yes -Correct Side, Site, Position Yes -Correct Procedure Yes -Procedure Performed Yes -Type of Procedure Debridement -Clinical Debridement Subcutaneous -Post Debridement Size (cm) - Length 1.8 -Post Debridement Size (cm) - Width 1.8 -Post Debridement Size (cm) - Depth 0.1 -Total Square Cm 3.24 -Wound/Ulcer Outcome Not Healed -Ulcer Cleansing Rinsed/ Irrigated with Saline -Foul Odor after Cleansing No -Bioengineered Tissue No -Bleeding Controlled with Pressure -Offloading No -Treatment Response Procedure Tolerated Well #10 RIGHT LATERAL ANKLE -Time 12:09 -Correct Patient Yes -Correct Side, Site, Position Yes -Correct Procedure Yes -Procedure Performed Yes -Type of Procedure Debridement -Clinical Debridement Subcutaneous -Post Debridement Size (cm) - Length 0.8 -Post Debridement Size (cm) - Width 0.3 -Post Debridement Size (cm) - Depth 0.1 -Total Square Cm 0.24 -Wound/Ulcer Outcome Not Healed -Ulcer Cleansing Rinsed/ Irrigated with Saline -Foul Odor after Cleansing No -Bioengineered Tissue No -Bleeding Controlled with Pressure -Offloading No -Treatment Response Procedure Tolerated Well #9 LEFT MEDIAL DORSAL FOOT -Time 12:09 -Correct Patient Yes -Correct Side, Site, Position Yes -Correct Procedure Yes -Procedure Performed Yes -Type of Procedure Debridement -Clinical Debridement Subcutaneous -Post Debridement Size (cm) - Length 1.5 -Post Debridement Size (cm) - Width 2.5 -Post Debridement Size (cm) - Depth 0.2 -Total Square Cm 3.75 -Wound/Ulcer Outcome Not Healed -Ulcer Cleansing Rinsed/ Irrigated with Saline -Foul Odor after Cleansing No -Bioengineered Tissue No -Bleeding Controlled with Pressure -Offloading No -Treatment Response Procedure Tolerated Well #7 Lateral RLE -Time 12:10 -Correct Patient Yes -Correct Side, Site, Position Yes -Correct Procedure Yes -Procedure Performed Yes -Type of Procedure Debridement -Clinical Debridement Subcutaneous -Post Debridement Size (cm) - Length 4.2 -Post Debridement Size (cm) - Width 1.5 -Post Debridement Size (cm) - Depth 0.1 -Total Square Cm 6.30 -Wound/Ulcer Outcome Not Healed -Ulcer Cleansing Rinsed/ Irrigated with Saline -Foul Odor after Cleansing No -Bioengineered Tissue No -Bleeding Controlled with Pressure -Offloading No -Treatment Response Procedure Tolerated Well [See Physician Procedure note for Specifics] Pain Scale: 0-10 Numeric [Pain] -Is Patient Pain Free? Yes Neurological: Cranial nerves II-XII grossly intact Psych/Mental Status: Normal Affect Debridement Note Post-Debridement Measurements/Treatment WC - Nurse 2 - General Ulcer CM Notes Start: 05/29/19 11:49 Freq: Status: Active Protocol: Activity Type Activity Date Activity User E-Sign Co-Sign Detail Recorded Client Recorded Date Recorded By Document 05/29/19 12:34 [id number] 05/29/19 12:36 Document 06/05/19 12:08 JF [id number] 06/05/19 12:12 JF Document 06/05/19 12:21 MW [id number] 06/05/19 12:28 MW 05/29/19 06/05/19 06/05/19 12:34 12:08 12:21 Wound Center Nurse 2 #12- LT BUTTOCK -Time 12:21 -Correct Patient Yes -Correct Side, Site, Position Yes -Correct Procedure Yes -Procedure Performed Yes -Type of Procedure Debridement -Clinical Debridement Subcutaneous -Post Debridement Size (cm) - Length 1.7 -Post Debridement Size (cm) - Width 1.7 -Post Debridement Size (cm) - Depth 0.1 -Total Square Cm 2.89 -Wound/Ulcer Outcome Not Healed -Ulcer Cleansing Rinsed/ Irrigated with Saline -Foul Odor after Cleansing No -Bioengineered Tissue No -Bleeding Controlled with Pressure -Offloading No -Treatment Response Procedure Tolerated Well #11- L LAT LE -Time 12:09 -Correct Patient Yes -Correct Side, Site, Position Yes -Correct Procedure Yes -Procedure Performed Yes -Type of Procedure Debridement -Clinical Debridement Subcutaneous -Post Debridement Size (cm) - Length 1.8 -Post Debridement Size (cm) - Width 1.8 -Post Debridement Size (cm) - Depth 0.1 -Total Square Cm 3.24 -Wound/Ulcer Outcome Not Healed -Ulcer Cleansing Rinsed/ Irrigated with Saline -Foul Odor after Cleansing No -Bioengineered Tissue No -Bleeding Controlled with Pressure -Offloading No -Treatment Response Procedure Tolerated Well #10 RIGHT LATERAL ANKLE -Time 12:34 12:09 -Correct Patient Yes Yes -Correct Side, Site, Position Yes Yes -Correct Procedure Yes Yes -Procedure Performed Yes Yes -Type of Procedure Debridement Debridement -Clinical Debridement Subcutaneous Subcutaneous -Post Debridement Size (cm) - Length 0.6 0.8 -Post Debridement Size (cm) - Width 0.6 0.3 -Post Debridement Size (cm) - Depth 0.2 0.1 -Total Square Cm 0.36 0.24 -Wound/Ulcer Outcome Not Healed Not Healed -Ulcer Cleansing Rinsed/ Rinsed/ Irrigated with Irrigated with Saline Saline -Foul Odor after Cleansing No No -Bioengineered Tissue No No -Bleeding Controlled with Pressure Pressure -Offloading No No -Treatment Response Procedure Procedure Tolerated Well Tolerated Well #9 LEFT MEDIAL DORSAL FOOT -Time 12:34 12:09 -Correct Patient Yes Yes -Correct Side, Site, Position Yes Yes -Correct Procedure Yes Yes -Procedure Performed Yes Yes -Type of Procedure Debridement Debridement -Clinical Debridement Subcutaneous Subcutaneous -Post Debridement Size (cm) - Length 1 1.5 -Post Debridement Size (cm) - Width 5.8 2.5 -Post Debridement Size (cm) - Depth 0.1 0.2 -Total Square Cm 5.8 3.75 -Wound/Ulcer Outcome Not Healed Not Healed -Ulcer Cleansing Rinsed/ Rinsed/ Irrigated with Irrigated with Saline Saline -Foul Odor after Cleansing No No -Bioengineered Tissue No No -Bleeding Controlled with Pressure Pressure -Offloading No No -Treatment Response Procedure Procedure Tolerated Well Tolerated Well #7 Lateral RLE -Time 12:35 12:10 -Correct Patient Yes Yes -Correct Side, Site, Position Yes Yes -Correct Procedure Yes Yes -Procedure Performed Yes Yes -Type of Procedure Debridement Debridement -Clinical Debridement Subcutaneous Subcutaneous -Post Debridement Size (cm) - Length 0.8 4.2 -Post Debridement Size (cm) - Width 1.6 1.5 -Post Debridement Size (cm) - Depth 0.1 0.1 -Total Square Cm 1.28 6.30 -Wound/Ulcer Outcome Not Healed Not Healed -Ulcer Cleansing Rinsed/ Rinsed/ Irrigated with Irrigated with Saline Saline -Foul Odor after Cleansing No No -Bioengineered Tissue No No -Bleeding Controlled with Pressure Pressure -Offloading No No -Treatment Response Procedure Procedure Tolerated Well Tolerated Well Pain Scale: 0-10 Numeric Is Patient Pain Free? Yes Yes Wound debrided: Left buttock Wound Grade/Stage: Stage 2 Type of Debridement: Excisional debridement Anesthesia Used: 4% Lidocaine Solution Depth: Down to and including healthy tissue, in the subcutaneous layer Percentage of wound debrided: 100 Instrument Used: 5mm curette Tissue Removed: Slough and devitalized tissue Severity: Fat Layer Exposed Amount of bleeding with debridement: Mild Bleeding Controlled with: Pressure Patient tolerated procedure well Assessment/Plan Active Problems (Last Reviewed 08/13/18 @ 10:19 by Fernando Patterson MD) Decubitus ulcer of left buttock, stage 2 (Acute) Ulcer of right lower extremity with fat layer exposed (Chronic) lateral ankle and also new anterior leg ulcer 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 History of paraplegia. Diarrhea. Plan: Debridement done as documented above. Procedure was well-tolerated. Promogran daily to twice daily depending on drainage. Up to foam over top. Apply zinc oxide cream to surrounding area of dermatitis. Offloading strongly recommended. Prescription for gel cushion given. Continue follow-up with primary care physician for management of acute diarrhea. Also strongly recommended keeping area clean. All their questions were answered and they were advised to call with any further questions or concerns. Follow-up in 1 week. This note was generated with [employer] dictation software. It may contain incorrect words, spelling, and punctuation that were not noted in checking the note before signing.
--- NOTE | 2019-06-05 17:18 | PN.PCM_ITS ---
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 Current Visit: Yes Code(s): L97.922 - Non-pressure chronic ulcer of unspecified part of left lower leg with fat layer exposed (2) Ulcer of right lower extremity with fat layer exposed Status: Chronic Current Visit: Yes Code(s): L97.912 - Non-pressure chronic ulcer of unspecified part of right lower leg with fat layer exposed Comment: lateral ankle and also new anterior leg ulcer (3) Chronic ulcer of left foot with fat layer exposed Status: Chronic Current Visit: Yes Code(s): L97.522 - Non-pressure chronic ulcer of other part of left foot with fat layer exposed (4) Malnutrition Status: Chronic Current Visit: Yes Code(s): E46 - Unspecified protein- calorie malnutrition (5) Delayed wound healing Status: Chronic Current Visit: Yes Code(s): T14.8XXD - Other injury of unspecified body region, subsequent encounter (6) Edema leg Status: Chronic Current Visit: Yes Code(s): R60.0 - Localized edema (7) Paralysis Status: Chronic Current Visit: Yes Code(s): G83.9 - Paralytic syndrome, unspecified Type of Wound Date of Service: 06/05/19 Chief Complaint: Left foot ulcer and bilateral leg ulcers History of Wound: Mr Saibllon is an 83-year-old currently being seen in the wound center for lower extremity ulcers. He has new ulcers that have occurred over the last week. He does not report any redness or new injuries or increased swelling. He is getting frustrated with the recurrent nature of his ulcer sites. He denies fever, chill, nausea, vomiting. He is with his and his son today. Progress of Wound: New right leg ulcer. New left leg ulcer. Improving right ankle ulcer. Improving left foot ulcer - Physical Exam Vital Signs Temp Pulse Resp BP 97.8 F 72 18 129/80 H 06/05/19 11:59 06/05/19 11:59 06/05/19 11:59 06/05/19 11:59 General: Alert, Oriented x3, Cooperative, No apparent distress Extremities: No cyanosis, Capillary Refill Less than 3 Seconds, No Calf Tenderness - negative Homans and Ortega sign, Diminished Peripheral Pulses, Edema - Mild bilateral lower extremities, - - Paralysis bilateral lower extremities Skin: Ulcer/ Wound - No purulence, erythema, streaking, odor, infection, deep tissue exposure .bilateral lower extremities, - - Atrophic and hairless skin bilateral lower extremities. There is some eschar noted a little bit in each ulcer site. The new skin discontinuity's are also noted to the lateral right leg and the lateral left leg Wound Measurements and Assessment WC - Nurse 1 - General Ulcer Measurement Start: 05/29/19 11:49 Freq: Status: Active Protocol: Activity Type Activity Date Activity User E-Sign Co-Sign Detail Recorded Client Recorded Date Recorded By Document 06/05/19 11:59 [id number] 06/05/19 12:03 06/05/19 11:59 Wound Center Nurse 1 [Ulcer Assessment] #12- LT BUTTOCK -Combined with other wound No -Current Size (cm) - Length 0.9 -Current Size (cm) - Width 0.9 -Current Size (cm) - Depth 0.1 -Total Square Cm 0.81 -Date of Last Picture (Recall this 06/05/19 field) -Photo Taken Yes -Epithelialization None Present -Tunneling No -Undermining/Tunneling No -Circular Undermining No -Exudate Amt Small -Exudate Type Serous -Wound Margin Flat & Intact -Granulation Amt Large (67-100%) -Granulation Quality Red -Slough/Fibrin No -Necrosis Amt None Present (0 %) -Texture (Denisse-wound Skin Appearance) Assessed, Scarring -Moisture (Denisse-wound Skin Appearance Assessed ) -Color (Denisse-wound Skin Appearance) Assessed, Erythema -Temperature (Denisse-wound Skin No Abnormality Appearance) (Pt Warm) -Tenderness on Palpation (Denisse-wound No Skin Appearance) -Ulcer Cleansing Rinsed/ Irrigated with Saline -Foul Odor after Cleansing No -Anesthetic Used 5% Lidocaine Gel #11- L LAT LE -Combined with other wound No -Current Size (cm) - Length 1.8 -Current Size (cm) - Width 1.7 -Current Size (cm) - Depth 0.1 -Total Square Cm 3.06 -Date of Last Picture (Recall this 06/05/19 field) -Photo Taken No -Epithelialization None Present -Tunneling No -Undermining/Tunneling No -Circular Undermining No -Exudate Amt Small -Exudate Type Serosanguineous -Wound Margin Flat & Intact -Granulation Amt Medium (34-66%) -Granulation Quality Red -Slough/Fibrin Yes -Necrosis Amt Medium (34-66%) -Necrotic Tissue Type Adherent Slough -Texture (Denisse-wound Skin Appearance) Assessed, Scarring -Moisture (Denisse-wound Skin Appearance Assessed,Dry/ ) Scaly -Color (Denisse-wound Skin Appearance) Assessed, Erythema -Temperature (Denisse-wound Skin No Abnormality Appearance) (Pt Warm) -Tenderness on Palpation (Denisse-wound No Skin Appearance) -Ulcer Cleansing Rinsed/ Irrigated with Saline -Foul Odor after Cleansing No -Anesthetic Used 5% Lidocaine Gel #10 RIGHT LATERAL ANKLE -Combined with other wound No -Current Size (cm) - Length 0.7 -Current Size (cm) - Width 0.3 -Current Size (cm) - Depth 0.1 -Total Square Cm 0.21 -Photo Taken No -Epithelialization None Present -Tunneling No -Undermining/Tunneling No -Circular Undermining No -Exudate Amt Small -Exudate Type Serous -Wound Margin Distinct, Outline Attached -Granulation Amt None Present (0 %) -Slough/Fibrin Yes -Necrosis Amt Large (67-100%) -Necrotic Tissue Type Adherent Slough -Texture (Denisse-wound Skin Appearance) Assessed, Scarring -Moisture (Denisse-wound Skin Appearance Assessed ) -Color (Denisse-wound Skin Appearance) Assessed, Erythema -Temperature (Denisse-wound Skin No Abnormality Appearance) (Pt Warm) -Tenderness on Palpation (Denisse-wound No Skin Appearance) -Ulcer Cleansing Rinsed/ Irrigated with Saline -Foul Odor after Cleansing No -Anesthetic Used 5% Lidocaine Gel #9 LEFT MEDIAL DORSAL FOOT -Combined with other wound No -Current Size (cm) - Length 1.5 -Current Size (cm) - Width 2.4 -Current Size (cm) - Depth 0.2 -Total Square Cm 3.60 -Photo Taken No -Epithelialization None Present -Tunneling No -Undermining/Tunneling No -Circular Undermining No -Exudate Amt Small -Exudate Type Serosanguineous -Wound Margin Flat & Intact -Granulation Amt Medium (34-66%) -Granulation Quality Red -Slough/Fibrin Yes -Necrosis Amt Medium (34-66%) -Necrotic Tissue Type Adherent Slough -Texture (Denisse-wound Skin Appearance) Assessed, Scarring -Moisture (Denisse-wound Skin Appearance Assessed,Dry/ ) Scaly -Color (Denisse-wound Skin Appearance) Assessed, Erythema -Temperature (Denisse-wound Skin No Abnormality Appearance) (Pt Warm) -Tenderness on Palpation (Denisse-wound No Skin Appearance) -Ulcer Cleansing Rinsed/ Irrigated with Saline -Foul Odor after Cleansing No -Anesthetic Used 5% Lidocaine Gel #7 Lateral RLE -Combined with other wound No -Current Size (cm) - Length 4.2 -Current Size (cm) - Width 1.4 -Current Size (cm) - Depth 0.1 -Total Square Cm 5.88 -Photo Taken No -Epithelialization None Present -Tunneling No -Undermining/Tunneling No -Circular Undermining No -Exudate Amt Small -Exudate Type Serosanguineous -Wound Margin Distinct, Outline Attached -Granulation Amt Medium (34-66%) -Granulation Quality Red -Slough/Fibrin Yes -Necrosis Amt Medium (34-66%) -Necrotic Tissue Type Adherent Slough -Texture (Denisse-wound Skin Appearance) Assessed, Scarring -Moisture (Denisse-wound Skin Appearance Assessed,Dry/ ) Scaly -Color (Denisse-wound Skin Appearance) Erythema -Temperature (Denisse-wound Skin No Abnormality Appearance) (Pt Warm) -Tenderness on Palpation (Denisse-wound No Skin Appearance) -Ulcer Cleansing Rinsed/ Irrigated with Saline -Foul Odor after Cleansing No -Anesthetic Used 5% Lidocaine Gel [Edema Assessment] -Lower Limb Edema Present No -Right Calf (cm) 27.1 -Right Ankle (cm) 20.8 -Left Calf (cm) 29.2 -Left Ankle (cm) 22.9 WC - Nurse 2 - General Ulcer CM Notes Start: 05/29/19 11:49 Freq: Status: Active Protocol: Activity Type Activity Date Activity User E-Sign Co-Sign Detail Recorded Client Recorded Date Recorded By Document 06/05/19 12:08 JF [id number] 06/05/19 12:12 JF Document 06/05/19 12:21 MW [id number] 06/05/19 12:28 MW 06/05/19 06/05/19 12:08 12:21 Wound Center Nurse 2 [Procedure/Treatment] #12- LT BUTTOCK -Time 12:21 -Correct Patient Yes -Correct Side, Site, Position Yes -Correct Procedure Yes -Procedure Performed Yes -Type of Procedure Debridement -Clinical Debridement Subcutaneous -Post Debridement Size (cm) - Length 1.7 -Post Debridement Size (cm) - Width 1.7 -Post Debridement Size (cm) - Depth 0.1 -Total Square Cm 2.89 -Wound/Ulcer Outcome Not Healed -Ulcer Cleansing Rinsed/ Irrigated with Saline -Foul Odor after Cleansing No -Bioengineered Tissue No -Bleeding Controlled with Pressure -Offloading No -Treatment Response Procedure Tolerated Well #11- L LAT LE -Time 12:09 -Correct Patient Yes -Correct Side, Site, Position Yes -Correct Procedure Yes -Procedure Performed Yes -Type of Procedure Debridement -Clinical Debridement Subcutaneous -Post Debridement Size (cm) - Length 1.8 -Post Debridement Size (cm) - Width 1.8 -Post Debridement Size (cm) - Depth 0.1 -Total Square Cm 3.24 -Wound/Ulcer Outcome Not Healed -Ulcer Cleansing Rinsed/ Irrigated with Saline -Foul Odor after Cleansing No -Bioengineered Tissue No -Bleeding Controlled with Pressure -Offloading No -Treatment Response Procedure Tolerated Well #10 RIGHT LATERAL ANKLE -Time 12:09 -Correct Patient Yes -Correct Side, Site, Position Yes -Correct Procedure Yes -Procedure Performed Yes -Type of Procedure Debridement -Clinical Debridement Subcutaneous -Post Debridement Size (cm) - Length 0.8 -Post Debridement Size (cm) - Width 0.3 -Post Debridement Size (cm) - Depth 0.1 -Total Square Cm 0.24 -Wound/Ulcer Outcome Not Healed -Ulcer Cleansing Rinsed/ Irrigated with Saline -Foul Odor after Cleansing No -Bioengineered Tissue No -Bleeding Controlled with Pressure -Offloading No -Treatment Response Procedure Tolerated Well #9 LEFT MEDIAL DORSAL FOOT -Time 12:09 -Correct Patient Yes -Correct Side, Site, Position Yes -Correct Procedure Yes -Procedure Performed Yes -Type of Procedure Debridement -Clinical Debridement Subcutaneous -Post Debridement Size (cm) - Length 1.5 -Post Debridement Size (cm) - Width 2.5 -Post Debridement Size (cm) - Depth 0.2 -Total Square Cm 3.75 -Wound/Ulcer Outcome Not Healed -Ulcer Cleansing Rinsed/ Irrigated with Saline -Foul Odor after Cleansing No -Bioengineered Tissue No -Bleeding Controlled with Pressure -Offloading No -Treatment Response Procedure Tolerated Well #7 Lateral RLE -Time 12:10 -Correct Patient Yes -Correct Side, Site, Position Yes -Correct Procedure Yes -Procedure Performed Yes -Type of Procedure Debridement -Clinical Debridement Subcutaneous -Post Debridement Size (cm) - Length 4.2 -Post Debridement Size (cm) - Width 1.5 -Post Debridement Size (cm) - Depth 0.1 -Total Square Cm 6.30 -Wound/Ulcer Outcome Not Healed -Ulcer Cleansing Rinsed/ Irrigated with Saline -Foul Odor after Cleansing No -Bioengineered Tissue No -Bleeding Controlled with Pressure -Offloading No -Treatment Response Procedure Tolerated Well [See Physician Procedure note for Specifics] Pain Scale: 0-10 Numeric [Pain] -Is Patient Pain Free? Yes Musculoskeletal: No Tenderness to Palpation of Joints or Extremities, Muscle Wasting, - - Compartments soft to palpate bilateral lower extremities Neurological: - - Lack of epicritic sensation light touch consistent with neuropathy bilateral lower extremities Psych/Mental Status: Normal Affect, Appropriate Debridement Note Post-Debridement Measurements/Treatment WC - Nurse 2 - General Ulcer CM Notes Start: 05/29/19 11:49 Freq: Status: Active Protocol: Activity Type Activity Date Activity User E-Sign Co-Sign Detail Recorded Client Recorded Date Recorded By Document 05/29/19 12:34 [id number] 05/29/19 12:36 Document 06/05/19 12:08 JF [id number] 06/05/19 12:12 JF Document 06/05/19 12:21 MW [id number] 06/05/19 12:28 MW 05/29/19 06/05/19 06/05/19 12:34 12:08 12:21 Wound Center Nurse 2 #12- LT BUTTOCK -Time 12:21 -Correct Patient Yes -Correct Side, Site, Position Yes -Correct Procedure Yes -Procedure Performed Yes -Type of Procedure Debridement -Clinical Debridement Subcutaneous -Post Debridement Size (cm) - Length 1.7 -Post Debridement Size (cm) - Width 1.7 -Post Debridement Size (cm) - Depth 0.1 -Total Square Cm 2.89 -Wound/Ulcer Outcome Not Healed -Ulcer Cleansing Rinsed/ Irrigated with Saline -Foul Odor after Cleansing No -Bioengineered Tissue No -Bleeding Controlled with Pressure -Offloading No -Treatment Response Procedure Tolerated Well #11- L LAT LE -Time 12:09 -Correct Patient Yes -Correct Side, Site, Position Yes -Correct Procedure Yes -Procedure Performed Yes -Type of Procedure Debridement -Clinical Debridement Subcutaneous -Post Debridement Size (cm) - Length 1.8 -Post Debridement Size (cm) - Width 1.8 -Post Debridement Size (cm) - Depth 0.1 -Total Square Cm 3.24 -Wound/Ulcer Outcome Not Healed -Ulcer Cleansing Rinsed/ Irrigated with Saline -Foul Odor after Cleansing No -Bioengineered Tissue No -Bleeding Controlled with Pressure -Offloading No -Treatment Response Procedure Tolerated Well #10 RIGHT LATERAL ANKLE -Time 12:34 12:09 -Correct Patient Yes Yes -Correct Side, Site, Position Yes Yes -Correct Procedure Yes Yes -Procedure Performed Yes Yes -Type of Procedure Debridement Debridement -Clinical Debridement Subcutaneous Subcutaneous -Post Debridement Size (cm) - Length 0.6 0.8 -Post Debridement Size (cm) - Width 0.6 0.3 -Post Debridement Size (cm) - Depth 0.2 0.1 -Total Square Cm 0.36 0.24 -Wound/Ulcer Outcome Not Healed Not Healed -Ulcer Cleansing Rinsed/ Rinsed/ Irrigated with Irrigated with Saline Saline -Foul Odor after Cleansing No No -Bioengineered Tissue No No -Bleeding Controlled with Pressure Pressure -Offloading No No -Treatment Response Procedure Procedure Tolerated Well Tolerated Well #9 LEFT MEDIAL DORSAL FOOT -Time 12:34 12:09 -Correct Patient Yes Yes -Correct Side, Site, Position Yes Yes -Correct Procedure Yes Yes -Procedure Performed Yes Yes -Type of Procedure Debridement Debridement -Clinical Debridement Subcutaneous Subcutaneous -Post Debridement Size (cm) - Length 1 1.5 -Post Debridement Size (cm) - Width 5.8 2.5 -Post Debridement Size (cm) - Depth 0.1 0.2 -Total Square Cm 5.8 3.75 -Wound/Ulcer Outcome Not Healed Not Healed -Ulcer Cleansing Rinsed/ Rinsed/ Irrigated with Irrigated with Saline Saline -Foul Odor after Cleansing No No -Bioengineered Tissue No No -Bleeding Controlled with Pressure Pressure -Offloading No No -Treatment Response Procedure Procedure Tolerated Well Tolerated Well #7 Lateral RLE -Time 12:35 12:10 -Correct Patient Yes Yes -Correct Side, Site, Position Yes Yes -Correct Procedure Yes Yes -Procedure Performed Yes Yes -Type of Procedure Debridement Debridement -Clinical Debridement Subcutaneous Subcutaneous -Post Debridement Size (cm) - Length 0.8 4.2 -Post Debridement Size (cm) - Width 1.6 1.5 -Post Debridement Size (cm) - Depth 0.1 0.1 -Total Square Cm 1.28 6.30 -Wound/Ulcer Outcome Not Healed Not Healed -Ulcer Cleansing Rinsed/ Rinsed/ Irrigated with Irrigated with Saline Saline -Foul Odor after Cleansing No No -Bioengineered Tissue No No -Bleeding Controlled with Pressure Pressure -Offloading No No -Treatment Response Procedure Procedure Tolerated Well Tolerated Well Pain Scale: 0-10 Numeric Is Patient Pain Free? Yes Yes Wound debrided: lateral leg Laterality: Right Type of Debridement: Excisional debridement Anesthesia Used: 5% Lidocaine Gel Depth: in the subcutaneous layer Percentage of wound debrided: 100 Instrument Used: #15 blade Tissue Removed: fibrous, devitalized subcutaneous, biofilm, slough, eschar Severity: Fat Layer Exposed Amount of bleeding with debridement: Mild Bleeding Controlled with: Pressure Patient tolerated procedure well - Additional Wound Wound debrided: lateral ankle Laterality: Right Type of Debridement: Excisional debridement Anesthesia Used: 5% Lidocaine Gel Depth: in the subcutaneous layer Percentage of wound debrided: 100 Instrument Used: #15 blade Tissue Removed: fibrous, devitalized subcutaneous, biofilm, slough, eschar Severity: Fat Layer Exposed Amount of bleeding with debridement: Mild Bleeding Controlled with: Pressure Patient tolerated procedure: Patient tolerated procedure well - Additional Wound Wound debrided: dorsal foot Laterality: Left Type of Debridement: Excisional debridement Anesthesia Used: 5% Lidocaine Gel Depth: in the subcutaneous layer Percentage of wound debrided: 100 Instrument Used: #15 blade Tissue Removed: fibrous, devitalized subcutaneous, biofilm, slough, eschar Severity: Fat Layer Exposed Amount of bleeding with debridement: Mild Bleeding Controlled with: Pressure Patient tolerated procedure: Patient tolerated procedure well - Additional Wound Wound debrided: lateral leg Laterality: Left Type of Debridement: Excisional debridement Anesthesia Used: 5% Lidocaine Gel Depth: in the subcutaneous layer Percentage of wound debrided: 100 Instrument Used: #15 blade Tissue Removed: fibrous, devitalized subcutaneous, biofilm, slough Severity: Fat Layer Exposed Amount of bleeding with debridement: Mild Bleeding Controlled with: Pressure Patient tolerated procedure: Patient tolerated procedure well Assessment/Plan Active Problems (Last Reviewed 08/13/18 @ 10:19 by Fernando Patterson MD) Decubitus ulcer of left buttock, stage 2 (Acute) Ulcer of right lower extremity with fat layer exposed (Chronic) lateral ankle and also new anterior leg ulcer 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 Left leg ulcer with fat layer exposed, no infection. Right lateral ankle ulcer with fat layer exposed, no infection. Dorsal left foot ulcer with fat layer exposed, no infection. Paralysis. Bilateral lower extremity edema. Malnutrition. Diarrhea Plan: I reviewed and discussed his case today. The ulcer sites were debrided today as noted in the clinical panel. To change the dressing to both sides daily with Santyl. To offload with donut pillow. To use Tubigrip's to bilateral lower extremities with morning application. To monitor recently healed ulcer sites closely due to overall fragility. It is noted he is completed the recommended antibiotics by infectious disease and his cellulitis has resolved. He has diarrhea and he was seen by infectious disease today. He was also seen by Dr. Kennedy today for a buttock ulceration. He had previous noninvasive vascular studies performed which demonstrated noncompressible vessels in which ankle-brachial indices were not calculated. This is consistent with rest pain as well as multisegmental occlusive disease and vessel calcification. He did go for consultation with Dr. De Anda previously who formed an angioplasty to her in which intervention options were not identified. It is noted he does have perfusion opportunities available to the lower extremity on the right side. To continue with nutritional supplementation, Fred. To return to clinic in 1 week for physician reevaluation or call sooner if he has any questions or concerns.
[2019-06-12 11:27] VITALS: BP 110/65; PULSE 55; RESP 16; TEMP 36.1; BMI 24.3
--- NOTE | 2019-06-12 13:19 | PCM.WC.PN ---
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 Current Visit: Yes Code(s): L97.922 - Non-pressure chronic ulcer of unspecified part of left lower leg with fat layer exposed (2) Ulcer of right lower extremity with fat layer exposed Status: Chronic Current Visit: Yes Code(s): L97.912 - Non-pressure chronic ulcer of unspecified part of right lower leg with fat layer exposed Comment: lateral ankle and also new anterior leg ulcer (3) Chronic ulcer of left foot with fat layer exposed Status: Chronic Current Visit: Yes Code(s): L97.522 - Non-pressure chronic ulcer of other part of left foot with fat layer exposed (4) Malnutrition Status: Chronic Current Visit: Yes Code(s): E46 - Unspecified protein-calorie malnutrition (5) Delayed wound healing Status: Chronic Current Visit: Yes Code(s): T14.8XXD - Other injury of unspecified body region, subsequent encounter (6) Edema leg Status: Chronic Current Visit: Yes Code(s): R60.0 - Localized edema (7) Paralysis Status: Chronic Current Visit: Yes Code(s): G83.9 - Paralytic syndrome, unspecified Type of Wound Date of Service: 06/12/19 Chief Complaint: Left foot ulcer and bilateral leg ulcers History of Wound: Mr Sabillon is an 83-year-old currently being seen in the wound center for lower extremity ulcers. He does not report any redness or new injuries or increased swelling. H He denies fever, chill, nausea, vomiting. He is with his son today. Progress of Wound: right and left leg ulcer improving. Improving right ankle ulcer. Improving left foot ulcer - Physical Exam Vital Signs Temp Pulse Resp BP 96.9 F L 55 L 16 110/65 06/12/19 11:27 06/12/19 11:27 06/12/19 11:27 06/12/19 11:27 General: Alert, Oriented x3, Cooperative, No apparent distress HEENT: Atraumatic Extremities: No cyanosis, Capillary Refill Less than 3 Seconds, No Calf Tenderness, Diminished Peripheral Pulses, Edema Skin: Ulcer/ Wound - No purulence, erythema, streaking, odor, infection. Peripheral skin is hairless and atrophic. There is reduced eschar noted Wound Measurements and Assessment WC - Nurse 1 - General Ulcer Measurement Start: 05/29/19 11:49 Freq: Status: Active Protocol: Activity Type Activity Date Activity User E-Sign Co-Sign Detail Recorded Client Recorded Date Recorded By Document 06/12/19 11:27 [facility] [id number] 06/12/19 11:47 [facility] 06/12/19 11:27 Wound Center Nurse 1 [Ulcer Assessment] #12- LT BUTTOCK -Combined with other wound No -Current Size (cm) - Length 0.1 -Current Size (cm) - Width 0.1 -Current Size (cm) - Depth 0.1 -Total Square Cm 0.01 -Photo Taken No -Epithelialization Medium 34-66% -Tunneling No -Undermining/Tunneling No -Circular Undermining No -Exudate Amt Small -Exudate Type Sanguineous -Wound Margin Flat & Intact -Texture (Denisse-wound Skin Appearance) Assessed, Scarring -Moisture (Denisse-wound Skin Appearance Assessed ) -Color (Denisse-wound Skin Appearance) Assessed, Erythema -Temperature (Denisse-wound Skin No Abnormality Appearance) (Pt Warm) -Tenderness on Palpation (Denisse-wound No Skin Appearance) -Foul Odor after Cleansing No -Anesthetic Used 4% Lidocaine Solution #11- L LAT LE -Combined with other wound No -Current Size (cm) - Length 0.1 -Current Size (cm) - Width 0.1 -Current Size (cm) - Depth 0.1 -Total Square Cm 0.01 -Photo Taken No -Epithelialization Large 67-100% -Tunneling No -Undermining/Tunneling No -Circular Undermining No -Exudate Amt None Present -Wound Margin Flat & Intact -Texture (Denisse-wound Skin Appearance) Assessed, Scarring -Moisture (Denisse-wound Skin Appearance Assessed,Dry/ ) Scaly -Color (Denisse-wound Skin Appearance) Assessed -Temperature (Denisse-wound Skin No Abnormality Appearance) (Pt Warm) -Tenderness on Palpation (Denisse-wound No Skin Appearance) -Foul Odor after Cleansing No -Anesthetic Used 4% Lidocaine Solution #10 RIGHT LATERAL ANKLE -Combined with other wound No -Current Size (cm) - Length 1.4 -Current Size (cm) - Width 0.9 -Current Size (cm) - Depth 0.1 -Total Square Cm 1.26 -Photo Taken No -Epithelialization Small 1-33% -Tunneling No -Undermining/Tunneling No -Circular Undermining No -Exudate Amt None Present -Wound Margin Flat & Intact -Granulation Amt None Present (0 %) -Slough/Fibrin Yes -Necrosis Amt Large (67-100%) -Necrotic Tissue Type Adherent Slough -Texture (Denisse-wound Skin Appearance) Assessed, Scarring -Moisture (Denisse-wound Skin Appearance Assessed,Dry/ ) Scaly -Color (Denisse-wound Skin Appearance) Assessed -Temperature (Denisse-wound Skin No Abnormality Appearance) (Pt Warm) -Tenderness on Palpation (Denisse-wound No Skin Appearance) -Foul Odor after Cleansing No -Anesthetic Used 4% Lidocaine Solution #9 LEFT MEDIAL DORSAL FOOT -Combined with other wound No -Current Size (cm) - Length 0.5 -Current Size (cm) - Width 3.1 -Current Size (cm) - Depth 0.1 -Total Square Cm 1.55 -Photo Taken No -Epithelialization None Present -Tunneling No -Undermining/Tunneling No -Circular Undermining No -Exudate Amt Small -Exudate Type Serous -Wound Margin Flat & Intact -Granulation Amt Small (1-33%) -Granulation Quality Red -Slough/Fibrin Yes -Necrosis Amt Large (67-100%) -Necrotic Tissue Type Adherent Slough -Texture (Denisse-wound Skin Appearance) Assessed, Scarring -Moisture (Denisse-wound Skin Appearance Assessed,Dry/ ) Scaly -Color (Denisse-wound Skin Appearance) Assessed -Temperature (Denisse-wound Skin No Abnormality Appearance) (Pt Warm) -Tenderness on Palpation (Denisse-wound No Skin Appearance) -Foul Odor after Cleansing No -Anesthetic Used 4% Lidocaine Solution #7 Lateral RLE -Combined with other wound No -Current Size (cm) - Length 2.4 -Current Size (cm) - Width 1.5 -Current Size (cm) - Depth 0.1 -Total Square Cm 3.60 -Photo Taken No -Epithelialization None Present -Tunneling No -Undermining/Tunneling No -Circular Undermining No -Exudate Amt Small -Exudate Type Sanguineous -Wound Margin Flat & Intact -Granulation Amt Small (1-33%) -Granulation Quality Red -Slough/Fibrin Yes -Necrosis Amt Medium (34-66%) -Necrotic Tissue Type Adherent Slough -Texture (Denisse-wound Skin Appearance) Assessed, Scarring -Moisture (Denisse-wound Skin Appearance Assessed,Dry/ ) Scaly -Color (Denisse-wound Skin Appearance) Assessed -Temperature (Denisse-wound Skin No Abnormality Appearance) (Pt Warm) -Tenderness on Palpation (Denisse-wound No Skin Appearance) -Foul Odor after Cleansing No -Anesthetic Used 4% Lidocaine Solution [Edema Assessment] -Lower Limb Edema Present Yes -Right Calf (cm) 27 -Right Ankle (cm) 20.5 -Left Calf (cm) 29.9 -Left Ankle (cm) 23.7 WC - Nurse 2 - General Ulcer CM Notes Start: 05/29/19 11:49 Freq: Status: Active Protocol: Activity Type Activity Date Activity User E-Sign Co-Sign Detail Recorded Client Recorded Date Recorded By Document 06/12/19 11:53 AN [id number] 06/12/19 11:59 AN Document 06/12/19 12:08 MW [id number] 06/12/19 12:09 MW 06/12/19 06/12/19 11:53 12:08 Wound Center Nurse 2 [Procedure/Treatment] #12- LT BUTTOCK -Time 12:09 -Correct Patient Yes -Correct Side, Site, Position Yes -Correct Procedure Yes -Procedure Performed Yes -Type of Procedure Debridement -Clinical Debridement Subcutaneous -Post Debridement Size (cm) - Length 0.5 -Post Debridement Size (cm) - Width 0.4 -Post Debridement Size (cm) - Depth 0.1 -Total Square Cm 0.20 -Wound/Ulcer Outcome Not Healed -Ulcer Cleansing Rinsed/ Irrigated with Saline -Foul Odor after Cleansing No -Bioengineered Tissue No -Bleeding Controlled with Pressure -Offloading No -Treatment Response Procedure Tolerated Well #11- L LAT LE -Time 11:57 -Correct Patient Yes -Correct Side, Site, Position Yes -Correct Procedure Yes -Procedure Performed Yes -Type of Procedure Debridement -Clinical Debridement Subcutaneous -Post Debridement Size (cm) - Length 0.2 -Post Debridement Size (cm) - Width 0.2 -Post Debridement Size (cm) - Depth 0.1 -Total Square Cm 0.04 -Wound/Ulcer Outcome Not Healed -Treatment Response Procedure Tolerated Well #10 RIGHT LATERAL ANKLE -Time 11:57 -Correct Patient Yes -Correct Side, Site, Position Yes -Correct Procedure Yes -Procedure Performed Yes -Type of Procedure Debridement -Clinical Debridement Subcutaneous -Post Debridement Size (cm) - Length 1.5 -Post Debridement Size (cm) - Width 1.0 -Post Debridement Size (cm) - Depth 0.1 -Total Square Cm 1.50 -Wound/Ulcer Outcome Not Healed -Bleeding Controlled with Pressure -Treatment Response Procedure Tolerated Well #9 LEFT MEDIAL DORSAL FOOT -Time 11:57 -Correct Patient Yes -Correct Side, Site, Position Yes -Correct Procedure Yes -Procedure Performed Yes -Type of Procedure Debridement -Clinical Debridement Subcutaneous -Post Debridement Size (cm) - Length 0.6 -Post Debridement Size (cm) - Width 3.2 -Post Debridement Size (cm) - Depth 0.1 -Total Square Cm 1.92 -Wound/Ulcer Outcome Not Healed -Ulcer Cleansing Rinsed/ Irrigated with Saline -Bleeding Controlled with Pressure -Offloading Yes -Treatment Response Procedure Tolerated Well #7 Lateral RLE -Time 11:58 -Correct Patient Yes -Correct Side, Site, Position Yes -Correct Procedure Yes -Procedure Performed Yes -Type of Procedure Debridement -Clinical Debridement Subcutaneous -Post Debridement Size (cm) - Length 2.5 -Post Debridement Size (cm) - Width 1.6 -Post Debridement Size (cm) - Depth 0.1 -Total Square Cm 4.00 -Wound/Ulcer Outcome Not Healed -Ulcer Cleansing Rinsed/ Irrigated with Saline -Bleeding Controlled with Pressure -Offloading Yes -Treatment Response Procedure Tolerated Well [See Physician Procedure note for Specifics] Pain Scale: 0-10 Numeric [Pain] -Is Patient Pain Free? Yes Musculoskeletal: No Tenderness to Palpation of Joints or Extremities, Muscle Wasting, - - No palpation pain. Paralysis noted in wheelchair Neurological: - - Lack of sensation to light touch bilateral lower extremities Psych/Mental Status: Normal Affect, Appropriate Debridement Note Post-Debridement Measurements/Treatment WC - Nurse 2 - General Ulcer CM Notes Start: 05/29/19 11:49 Freq: Status: Active Protocol: Activity Type Activity Date Activity User E-Sign Co-Sign Detail Recorded Client Recorded Date Recorded By Document 05/29/19 12:34 JF [id number] 05/29/19 12:36 JF Document 06/05/19 12:08 JF [id number] 06/05/19 12:12 JF Document 06/05/19 12:21 MW [id number] 06/05/19 12:28 MW Document 06/12/19 11:53 AN [id number] 06/12/19 11:59 AN Document 06/12/19 12:08 MW [id number] 06/12/19 12:09 MW 05/29/19 06/05/19 06/05/19 12:34 12:08 12:21 Wound Center Nurse 2 #12- LT BUTTOCK -Time 12:21 -Correct Patient Yes -Correct Side, Site, Position Yes -Correct Procedure Yes -Procedure Performed Yes -Type of Procedure Debridement -Clinical Debridement Subcutaneous -Post Debridement Size (cm) - Length 1.7 -Post Debridement Size (cm) - Width 1.7 -Post Debridement Size (cm) - Depth 0.1 -Total Square Cm 2.89 -Wound/Ulcer Outcome Not Healed -Ulcer Cleansing Rinsed/ Irrigated with Saline -Foul Odor after Cleansing No -Bioengineered Tissue No -Bleeding Controlled with Pressure -Offloading No -Treatment Response Procedure Tolerated Well #11- L LAT LE -Time 12:09 -Correct Patient Yes -Correct Side, Site, Position Yes -Correct Procedure Yes -Procedure Performed Yes -Type of Procedure Debridement -Clinical Debridement Subcutaneous -Post Debridement Size (cm) - Length 1.8 -Post Debridement Size (cm) - Width 1.8 -Post Debridement Size (cm) - Depth 0.1 -Total Square Cm 3.24 -Wound/Ulcer Outcome Not Healed -Ulcer Cleansing Rinsed/ Irrigated with Saline -Foul Odor after Cleansing No -Bioengineered Tissue No -Bleeding Controlled with Pressure -Offloading No -Treatment Response Procedure Tolerated Well #10 RIGHT LATERAL ANKLE -Time 12:34 12:09 -Correct Patient Yes Yes -Correct Side, Site, Position Yes Yes -Correct Procedure Yes Yes -Procedure Performed Yes Yes -Type of Procedure Debridement Debridement -Clinical Debridement Subcutaneous Subcutaneous -Post Debridement Size (cm) - Length 0.6 0.8 -Post Debridement Size (cm) - Width 0.6 0.3 -Post Debridement Size (cm) - Depth 0.2 0.1 -Total Square Cm 0.36 0.24 -Wound/Ulcer Outcome Not Healed Not Healed -Ulcer Cleansing Rinsed/ Rinsed/ Irrigated with Irrigated with Saline Saline -Foul Odor after Cleansing No No -Bioengineered Tissue No No -Bleeding Controlled with Pressure Pressure -Offloading No No -Treatment Response Procedure Procedure Tolerated Well Tolerated Well #9 LEFT MEDIAL DORSAL FOOT -Time 12:34 12:09 -Correct Patient Yes Yes -Correct Side, Site, Position Yes Yes -Correct Procedure Yes Yes -Procedure Performed Yes Yes -Type of Procedure Debridement Debridement -Clinical Debridement Subcutaneous Subcutaneous -Post Debridement Size (cm) - Length 1 1.5 -Post Debridement Size (cm) - Width 5.8 2.5 -Post Debridement Size (cm) - Depth 0.1 0.2 -Total Square Cm 5.8 3.75 -Wound/Ulcer Outcome Not Healed Not Healed -Ulcer Cleansing Rinsed/ Rinsed/ Irrigated with Irrigated with Saline Saline -Foul Odor after Cleansing No No -Bioengineered Tissue No No -Bleeding Controlled with Pressure Pressure -Offloading No No -Treatment Response Procedure Procedure Tolerated Well Tolerated Well #7 Lateral RLE -Time 12:35 12:10 -Correct Patient Yes Yes -Correct Side, Site, Position Yes Yes -Correct Procedure Yes Yes -Procedure Performed Yes Yes -Type of Procedure Debridement Debridement -Clinical Debridement Subcutaneous Subcutaneous -Post Debridement Size (cm) - Length 0.8 4.2 -Post Debridement Size (cm) - Width 1.6 1.5 -Post Debridement Size (cm) - Depth 0.1 0.1 -Total Square Cm 1.28 6.30 -Wound/Ulcer Outcome Not Healed Not Healed -Ulcer Cleansing Rinsed/ Rinsed/ Irrigated with Irrigated with Saline Saline -Foul Odor after Cleansing No No -Bioengineered Tissue No No -Bleeding Controlled with Pressure Pressure -Offloading No No -Treatment Response Procedure Procedure Tolerated Well Tolerated Well Pain Scale: 0-10 Numeric Is Patient Pain Free? Yes Yes 06/12/19 06/12/19 11:53 12:08 Wound Center Nurse 2 #12- LT BUTTOCK -Time 12:09 -Correct Patient Yes -Correct Side, Site, Position Yes -Correct Procedure Yes -Procedure Performed Yes -Type of Procedure Debridement -Clinical Debridement Subcutaneous -Post Debridement Size (cm) - Length 0.5 -Post Debridement Size (cm) - Width 0.4 -Post Debridement Size (cm) - Depth 0.1 -Total Square Cm 0.20 -Wound/Ulcer Outcome Not Healed -Ulcer Cleansing Rinsed/ Irrigated with Saline -Foul Odor after Cleansing No -Bioengineered Tissue No -Bleeding Controlled with Pressure -Offloading No -Treatment Response Procedure Tolerated Well #11- L LAT LE -Time 11:57 -Correct Patient Yes -Correct Side, Site, Position Yes -Correct Procedure Yes -Procedure Performed Yes -Type of Procedure Debridement -Clinical Debridement Subcutaneous -Post Debridement Size (cm) - Length 0.2 -Post Debridement Size (cm) - Width 0.2 -Post Debridement Size (cm) - Depth 0.1 -Total Square Cm 0.04 -Wound/Ulcer Outcome Not Healed -Ulcer Cleansing -Foul Odor after Cleansing -Bioengineered Tissue -Bleeding Controlled with -Offloading -Treatment Response Procedure Tolerated Well #10 RIGHT LATERAL ANKLE -Time 11:57 -Correct Patient Yes -Correct Side, Site, Position Yes -Correct Procedure Yes -Procedure Performed Yes -Type of Procedure Debridement -Clinical Debridement Subcutaneous -Post Debridement Size (cm) - Length 1.5 -Post Debridement Size (cm) - Width 1.0 -Post Debridement Size (cm) - Depth 0.1 -Total Square Cm 1.50 -Wound/Ulcer Outcome Not Healed -Ulcer Cleansing -Foul Odor after Cleansing -Bioengineered Tissue -Bleeding Controlled with Pressure -Offloading -Treatment Response Procedure Tolerated Well #9 LEFT MEDIAL DORSAL FOOT -Time 11:57 -Correct Patient Yes -Correct Side, Site, Position Yes -Correct Procedure Yes -Procedure Performed Yes -Type of Procedure Debridement -Clinical Debridement Subcutaneous -Post Debridement Size (cm) - Length 0.6 -Post Debridement Size (cm) - Width 3.2 -Post Debridement Size (cm) - Depth 0.1 -Total Square Cm 1.92 -Wound/Ulcer Outcome Not Healed -Ulcer Cleansing Rinsed/ Irrigated with Saline -Foul Odor after Cleansing -Bioengineered Tissue -Bleeding Controlled with Pressure -Offloading Yes -Treatment Response Procedure Tolerated Well #7 Lateral RLE -Time 11:58 -Correct Patient Yes -Correct Side, Site, Position Yes -Correct Procedure Yes -Procedure Performed Yes -Type of Procedure Debridement -Clinical Debridement Subcutaneous -Post Debridement Size (cm) - Length 2.5 -Post Debridement Size (cm) - Width 1.6 -Post Debridement Size (cm) - Depth 0.1 -Total Square Cm 4.00 -Wound/Ulcer Outcome Not Healed -Ulcer Cleansing Rinsed/ Irrigated with Saline -Foul Odor after Cleansing -Bioengineered Tissue -Bleeding Controlled with Pressure -Offloading Yes -Treatment Response Procedure Tolerated Well Pain Scale: 0-10 Numeric Is Patient Pain Free? Yes Wound debrided: lateral ankle Laterality: Right Type of Debridement: Excisional debridement Anesthesia Used: 5% Lidocaine Gel Depth: in the subcutaneous layer Percentage of wound debrided: 100 Instrument Used: #15 blade Tissue Removed: fibrous, devitalized subcutaneous, biofilm, slough Severity: Fat Layer Exposed Amount of bleeding with debridement: Mild Bleeding Controlled with: Pressure Patient tolerated procedure well - Additional Wound Wound debrided: lateral leg Laterality: Right Type of Debridement: Excisional debridement Anesthesia Used: 5% Lidocaine Gel Depth: in the subcutaneous layer Percentage of wound debrided: 100 Instrument Used: #15 blade Tissue Removed: fibrous, devitalized subcutaneous, biofilm, slough Severity: Fat Layer Exposed Amount of bleeding with debridement: Mild Bleeding Controlled with: Pressure Patient tolerated procedure: Patient tolerated procedure well - Additional Wound Wound debrided: dorsal foot Laterality: Left Type of Debridement: Excisional debridement Anesthesia Used: 5% Lidocaine Gel Depth: in the subcutaneous layer Percentage of wound debrided: 100 Instrument Used: #15 blade Tissue Removed: fibrous, devitalized subcutaneous, biofilm, slough Severity: Fat Layer Exposed Amount of bleeding with debridement: Mild Bleeding Controlled with: Pressure Patient tolerated procedure: Patient tolerated procedure well - Additional Wound Wound debrided: lateral leg Laterality: Left Type of Debridement: Excisional debridement Anesthesia Used: 5% Lidocaine Gel Depth: in the subcutaneous layer Percentage of wound debrided: 100 Instrument Used: #15 blade Tissue Removed: fibrous, devitalized subcutaneous, biofilm, slough Severity: Fat Layer Exposed - fibrous, devitalized subcutaneous, biofilm, slough Amount of bleeding with debridement: Mild Bleeding Controlled with: Pressure Patient tolerated procedure: Patient tolerated procedure well Assessment/Plan Active Problems (Last Reviewed 08/13/18 @ 10:19 by Fernando Patterson MD) Decubitus ulcer of left buttock, stage 2 (Acute) Ulcer of right lower extremity with fat layer exposed (Chronic) lateral ankle and also new anterior leg ulcer 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 Left leg ulcer with fat layer exposed, no infection. Right lateral ankle ulcer with fat layer exposed, no infection. Dorsal left foot ulcer with fat layer exposed, no infection. Paralysis. Bilateral lower extremity edema. Malnutrition Plan: I reviewed and discussed his case today. The ulcer sites were debrided today as noted in the clinical panel. To change the dressing to both sides daily with Santyl. To offload with donut pillow. To use Tubigrip's to bilateral lower extremities with morning application. To monitor recently healed ulcer sites closely due to overall fragility. It is noted he is completed the recommended antibiotics by infectious disease and his cellulitis has resolved. It is noted that he was concerned about some leg warmth in the right leg. The site was evaluated and I do not appreciate any local signs of infection, odor, or redness. He is advised to monitor this closely. He had previous noninvasive vascular studies performed which demonstrated noncompressible vessels in which ankle-brachial indices were not calculated. This is consistent with rest pain as well as multisegmental occlusive disease and vessel calcification. He did go for consultation with Dr. De Anda previously who formed an angioplasty to her in which intervention options were not identified. It is noted he does have perfusion opportunities available to the lower extremity on the right side. To continue with nutritional supplementation, Fred. To return to clinic in 1 week for physician reevaluation or call sooner if he has any questions or concerns.
--- NOTE | 2019-06-12 16:46 | PCM.WC.PN ---
(1) Decubitus ulcer of left buttock, stage 2 Status: Acute Current Visit: Yes Code(s): L89.322 - Pressure ulcer of left buttock, stage 2 (2) Paraplegia Status: Chronic Current Visit: Yes Code(s): G82.20 - Paraplegia, unspecified Comment: due to transverse myelitis Type of Wound Date of Service: 06/12/19 Chief Complaint: Left decubitus ulcer History of Wound: Mr Sabillon is an 83-year-old currently being seen in the wound center for lower extremity ulcers. He does not report any redness or new injuries or increased swelling. H He denies fever, chill, nausea, vomiting. He is with his son today. Progress of Wound: Left buttock ulcer is improving. No new concerns at this time. - Physical Exam Vital Signs Temp Pulse Resp BP 96.9 F L 55 L 16 110/65 06/12/19 11:27 06/12/19 11:27 06/12/19 11:27 06/12/19 11:27 General: Alert, Oriented x3, Cooperative, No apparent distress HEENT: Atraumatic, Normocephalic Oral: Moist Mucosa Neck: Supple Lungs: Normal air movement Wound Measurements and Assessment WC - Nurse 1 - General Ulcer Measurement Start: 05/29/19 11:49 Freq: Status: Active Protocol: Activity Type Activity Date Activity User E-Sign Co-Sign Detail Recorded Client Recorded Date Recorded By Document 06/12/19 11:27 [facility] [id number] 06/12/19 11:47 [facility] 06/12/19 11:27 Wound Center Nurse 1 [Ulcer Assessment] #12- LT BUTTOCK -Combined with other wound No -Current Size (cm) - Length 0.1 -Current Size (cm) - Width 0.1 -Current Size (cm) - Depth 0.1 -Total Square Cm 0.01 -Photo Taken No -Epithelialization Medium 34-66% -Tunneling No -Undermining/Tunneling No -Circular Undermining No -Exudate Amt Small -Exudate Type Sanguineous -Wound Margin Flat & Intact -Texture (Denisse-wound Skin Appearance) Assessed, Scarring -Moisture (Denisse-wound Skin Appearance Assessed ) -Color (Denisse-wound Skin Appearance) Assessed, Erythema -Temperature (Denisse-wound Skin No Abnormality Appearance) (Pt Warm) -Tenderness on Palpation (Denisse-wound No Skin Appearance) -Foul Odor after Cleansing No -Anesthetic Used 4% Lidocaine Solution #11- L LAT LE -Combined with other wound No -Current Size (cm) - Length 0.1 -Current Size (cm) - Width 0.1 -Current Size (cm) - Depth 0.1 -Total Square Cm 0.01 -Photo Taken No -Epithelialization Large 67-100% -Tunneling No -Undermining/Tunneling No -Circular Undermining No -Exudate Amt None Present -Wound Margin Flat & Intact -Texture (Denisse-wound Skin Appearance) Assessed, Scarring -Moisture (Denisse-wound Skin Appearance Assessed,Dry/ ) Scaly -Color (Denisse-wound Skin Appearance) Assessed -Temperature (Denisse-wound Skin No Abnormality Appearance) (Pt Warm) -Tenderness on Palpation (Denisse-wound No Skin Appearance) -Foul Odor after Cleansing No -Anesthetic Used 4% Lidocaine Solution #10 RIGHT LATERAL ANKLE -Combined with other wound No -Current Size (cm) - Length 1.4 -Current Size (cm) - Width 0.9 -Current Size (cm) - Depth 0.1 -Total Square Cm 1.26 -Photo Taken No -Epithelialization Small 1-33% -Tunneling No -Undermining/Tunneling No -Circular Undermining No -Exudate Amt None Present -Wound Margin Flat & Intact -Granulation Amt None Present (0 %) -Slough/Fibrin Yes -Necrosis Amt Large (67-100%) -Necrotic Tissue Type Adherent Slough -Texture (Denisse-wound Skin Appearance) Assessed, Scarring -Moisture (Denisse-wound Skin Appearance Assessed,Dry/ ) Scaly -Color (Denisse-wound Skin Appearance) Assessed -Temperature (Denisse-wound Skin No Abnormality Appearance) (Pt Warm) -Tenderness on Palpation (Denisse-wound No Skin Appearance) -Foul Odor after Cleansing No -Anesthetic Used 4% Lidocaine Solution #9 LEFT MEDIAL DORSAL FOOT -Combined with other wound No -Current Size (cm) - Length 0.5 -Current Size (cm) - Width 3.1 -Current Size (cm) - Depth 0.1 -Total Square Cm 1.55 -Photo Taken No -Epithelialization None Present -Tunneling No -Undermining/Tunneling No -Circular Undermining No -Exudate Amt Small -Exudate Type Serous -Wound Margin Flat & Intact -Granulation Amt Small (1-33%) -Granulation Quality Red -Slough/Fibrin Yes -Necrosis Amt Large (67-100%) -Necrotic Tissue Type Adherent Slough -Texture (Denisse-wound Skin Appearance) Assessed, Scarring -Moisture (Denisse-wound Skin Appearance Assessed,Dry/ ) Scaly -Color (Denisse-wound Skin Appearance) Assessed -Temperature (Denisse-wound Skin No Abnormality Appearance) (Pt Warm) -Tenderness on Palpation (Denisse-wound No Skin Appearance) -Foul Odor after Cleansing No -Anesthetic Used 4% Lidocaine Solution #7 Lateral RLE -Combined with other wound No -Current Size (cm) - Length 2.4 -Current Size (cm) - Width 1.5 -Current Size (cm) - Depth 0.1 -Total Square Cm 3.60 -Photo Taken No -Epithelialization None Present -Tunneling No -Undermining/Tunneling No -Circular Undermining No -Exudate Amt Small -Exudate Type Sanguineous -Wound Margin Flat & Intact -Granulation Amt Small (1-33%) -Granulation Quality Red -Slough/Fibrin Yes -Necrosis Amt Medium (34-66%) -Necrotic Tissue Type Adherent Slough -Texture (Denisse-wound Skin Appearance) Assessed, Scarring -Moisture (Denisse-wound Skin Appearance Assessed,Dry/ ) Scaly -Color (Denisse-wound Skin Appearance) Assessed -Temperature (Denisse-wound Skin No Abnormality Appearance) (Pt Warm) -Tenderness on Palpation (Denisse-wound No Skin Appearance) -Foul Odor after Cleansing No -Anesthetic Used 4% Lidocaine Solution [Edema Assessment] -Lower Limb Edema Present Yes -Right Calf (cm) 27 -Right Ankle (cm) 20.5 -Left Calf (cm) 29.9 -Left Ankle (cm) 23.7 WC - Nurse 2 - General Ulcer CM Notes Start: 05/29/19 11:49 Freq: Status: Active Protocol: Activity Type Activity Date Activity User E-Sign Co-Sign Detail Recorded Client Recorded Date Recorded By Document 06/12/19 11:53 AN [id number] 06/12/19 11:59 AN Document 06/12/19 12:08 MW [id number] 06/12/19 12:09 MW 06/12/19 06/12/19 11:53 12:08 Wound Center Nurse 2 [Procedure/Treatment] #12- LT BUTTOCK -Time 12:09 -Correct Patient Yes -Correct Side, Site, Position Yes -Correct Procedure Yes -Procedure Performed Yes -Type of Procedure Debridement -Clinical Debridement Subcutaneous -Post Debridement Size (cm) - Length 0.5 -Post Debridement Size (cm) - Width 0.4 -Post Debridement Size (cm) - Depth 0.1 -Total Square Cm 0.20 -Wound/Ulcer Outcome Not Healed -Ulcer Cleansing Rinsed/ Irrigated with Saline -Foul Odor after Cleansing No -Bioengineered Tissue No -Bleeding Controlled with Pressure -Offloading No -Treatment Response Procedure Tolerated Well #11- L LAT LE -Time 11:57 -Correct Patient Yes -Correct Side, Site, Position Yes -Correct Procedure Yes -Procedure Performed Yes -Type of Procedure Debridement -Clinical Debridement Subcutaneous -Post Debridement Size (cm) - Length 0.2 -Post Debridement Size (cm) - Width 0.2 -Post Debridement Size (cm) - Depth 0.1 -Total Square Cm 0.04 -Wound/Ulcer Outcome Not Healed -Treatment Response Procedure Tolerated Well #10 RIGHT LATERAL ANKLE -Time 11:57 -Correct Patient Yes -Correct Side, Site, Position Yes -Correct Procedure Yes -Procedure Performed Yes -Type of Procedure Debridement -Clinical Debridement Subcutaneous -Post Debridement Size (cm) - Length 1.5 -Post Debridement Size (cm) - Width 1.0 -Post Debridement Size (cm) - Depth 0.1 -Total Square Cm 1.50 -Wound/Ulcer Outcome Not Healed -Bleeding Controlled with Pressure -Treatment Response Procedure Tolerated Well #9 LEFT MEDIAL DORSAL FOOT -Time 11:57 -Correct Patient Yes -Correct Side, Site, Position Yes -Correct Procedure Yes -Procedure Performed Yes -Type of Procedure Debridement -Clinical Debridement Subcutaneous -Post Debridement Size (cm) - Length 0.6 -Post Debridement Size (cm) - Width 3.2 -Post Debridement Size (cm) - Depth 0.1 -Total Square Cm 1.92 -Wound/Ulcer Outcome Not Healed -Ulcer Cleansing Rinsed/ Irrigated with Saline -Bleeding Controlled with Pressure -Offloading Yes -Treatment Response Procedure Tolerated Well #7 Lateral RLE -Time 11:58 -Correct Patient Yes -Correct Side, Site, Position Yes -Correct Procedure Yes -Procedure Performed Yes -Type of Procedure Debridement -Clinical Debridement Subcutaneous -Post Debridement Size (cm) - Length 2.5 -Post Debridement Size (cm) - Width 1.6 -Post Debridement Size (cm) - Depth 0.1 -Total Square Cm 4.00 -Wound/Ulcer Outcome Not Healed -Ulcer Cleansing Rinsed/ Irrigated with Saline -Bleeding Controlled with Pressure -Offloading Yes -Treatment Response Procedure Tolerated Well [See Physician Procedure note for Specifics] Pain Scale: 0-10 Numeric [Pain] -Is Patient Pain Free? Yes Neurological: Cranial nerves II-XII grossly intact Psych/Mental Status: Normal Affect Debridement Note Post-Debridement Measurements/Treatment WC - Nurse 2 - General Ulcer CM Notes Start: 05/29/19 11:49 Freq: Status: Active Protocol: Activity Type Activity Date Activity User E-Sign Co-Sign Detail Recorded Client Recorded Date Recorded By Document 05/29/19 12:34 JF [id number] 05/29/19 12:36 JF Document 06/05/19 12:08 JF [id number] 06/05/19 12:12 JF Document 06/05/19 12:21 MW [id number] 06/05/19 12:28 MW Document 06/12/19 11:53 AN [id number] 06/12/19 11:59 AN Document 06/12/19 12:08 MW [id number] 06/12/19 12:09 MW 05/29/19 06/05/19 06/05/19 12:34 12:08 12:21 Wound Center Nurse 2 #12- LT BUTTOCK -Time 12:21 -Correct Patient Yes -Correct Side, Site, Position Yes -Correct Procedure Yes -Procedure Performed Yes -Type of Procedure Debridement -Clinical Debridement Subcutaneous -Post Debridement Size (cm) - Length 1.7 -Post Debridement Size (cm) - Width 1.7 -Post Debridement Size (cm) - Depth 0.1 -Total Square Cm 2.89 -Wound/Ulcer Outcome Not Healed -Ulcer Cleansing Rinsed/ Irrigated with Saline -Foul Odor after Cleansing No -Bioengineered Tissue No -Bleeding Controlled with Pressure -Offloading No -Treatment Response Procedure Tolerated Well #11- L LAT LE -Time 12:09 -Correct Patient Yes -Correct Side, Site, Position Yes -Correct Procedure Yes -Procedure Performed Yes -Type of Procedure Debridement -Clinical Debridement Subcutaneous -Post Debridement Size (cm) - Length 1.8 -Post Debridement Size (cm) - Width 1.8 -Post Debridement Size (cm) - Depth 0.1 -Total Square Cm 3.24 -Wound/Ulcer Outcome Not Healed -Ulcer Cleansing Rinsed/ Irrigated with Saline -Foul Odor after Cleansing No -Bioengineered Tissue No -Bleeding Controlled with Pressure -Offloading No -Treatment Response Procedure Tolerated Well #10 RIGHT LATERAL ANKLE -Time 12:34 12:09 -Correct Patient Yes Yes -Correct Side, Site, Position Yes Yes -Correct Procedure Yes Yes -Procedure Performed Yes Yes -Type of Procedure Debridement Debridement -Clinical Debridement Subcutaneous Subcutaneous -Post Debridement Size (cm) - Length 0.6 0.8 -Post Debridement Size (cm) - Width 0.6 0.3 -Post Debridement Size (cm) - Depth 0.2 0.1 -Total Square Cm 0.36 0.24 -Wound/Ulcer Outcome Not Healed Not Healed -Ulcer Cleansing Rinsed/ Rinsed/ Irrigated with Irrigated with Saline Saline -Foul Odor after Cleansing No No -Bioengineered Tissue No No -Bleeding Controlled with Pressure Pressure -Offloading No No -Treatment Response Procedure Procedure Tolerated Well Tolerated Well #9 LEFT MEDIAL DORSAL FOOT -Time 12:34 12:09 -Correct Patient Yes Yes -Correct Side, Site, Position Yes Yes -Correct Procedure Yes Yes -Procedure Performed Yes Yes -Type of Procedure Debridement Debridement -Clinical Debridement Subcutaneous Subcutaneous -Post Debridement Size (cm) - Length 1 1.5 -Post Debridement Size (cm) - Width 5.8 2.5 -Post Debridement Size (cm) - Depth 0.1 0.2 -Total Square Cm 5.8 3.75 -Wound/Ulcer Outcome Not Healed Not Healed -Ulcer Cleansing Rinsed/ Rinsed/ Irrigated with Irrigated with Saline Saline -Foul Odor after Cleansing No No -Bioengineered Tissue No No -Bleeding Controlled with Pressure Pressure -Offloading No No -Treatment Response Procedure Procedure Tolerated Well Tolerated Well #7 Lateral RLE -Time 12:35 12:10 -Correct Patient Yes Yes -Correct Side, Site, Position Yes Yes -Correct Procedure Yes Yes -Procedure Performed Yes Yes -Type of Procedure Debridement Debridement -Clinical Debridement Subcutaneous Subcutaneous -Post Debridement Size (cm) - Length 0.8 4.2 -Post Debridement Size (cm) - Width 1.6 1.5 -Post Debridement Size (cm) - Depth 0.1 0.1 -Total Square Cm 1.28 6.30 -Wound/Ulcer Outcome Not Healed Not Healed -Ulcer Cleansing Rinsed/ Rinsed/ Irrigated with Irrigated with Saline Saline -Foul Odor after Cleansing No No -Bioengineered Tissue No No -Bleeding Controlled with Pressure Pressure -Offloading No No -Treatment Response Procedure Procedure Tolerated Well Tolerated Well Pain Scale: 0-10 Numeric Is Patient Pain Free? Yes Yes 06/12/19 06/12/19 11:53 12:08 Wound Center Nurse 2 #12- LT BUTTOCK -Time 12:09 -Correct Patient Yes -Correct Side, Site, Position Yes -Correct Procedure Yes -Procedure Performed Yes -Type of Procedure Debridement -Clinical Debridement Subcutaneous -Post Debridement Size (cm) - Length 0.5 -Post Debridement Size (cm) - Width 0.4 -Post Debridement Size (cm) - Depth 0.1 -Total Square Cm 0.20 -Wound/Ulcer Outcome Not Healed -Ulcer Cleansing Rinsed/ Irrigated with Saline -Foul Odor after Cleansing No -Bioengineered Tissue No -Bleeding Controlled with Pressure -Offloading No -Treatment Response Procedure Tolerated Well #11- L LAT LE -Time 11:57 -Correct Patient Yes -Correct Side, Site, Position Yes -Correct Procedure Yes -Procedure Performed Yes -Type of Procedure Debridement -Clinical Debridement Subcutaneous -Post Debridement Size (cm) - Length 0.2 -Post Debridement Size (cm) - Width 0.2 -Post Debridement Size (cm) - Depth 0.1 -Total Square Cm 0.04 -Wound/Ulcer Outcome Not Healed -Ulcer Cleansing -Foul Odor after Cleansing -Bioengineered Tissue -Bleeding Controlled with -Offloading -Treatment Response Procedure Tolerated Well #10 RIGHT LATERAL ANKLE -Time 11:57 -Correct Patient Yes -Correct Side, Site, Position Yes -Correct Procedure Yes -Procedure Performed Yes -Type of Procedure Debridement -Clinical Debridement Subcutaneous -Post Debridement Size (cm) - Length 1.5 -Post Debridement Size (cm) - Width 1.0 -Post Debridement Size (cm) - Depth 0.1 -Total Square Cm 1.50 -Wound/Ulcer Outcome Not Healed -Ulcer Cleansing -Foul Odor after Cleansing -Bioengineered Tissue -Bleeding Controlled with Pressure -Offloading -Treatment Response Procedure Tolerated Well #9 LEFT MEDIAL DORSAL FOOT -Time 11:57 -Correct Patient Yes -Correct Side, Site, Position Yes -Correct Procedure Yes -Procedure Performed Yes -Type of Procedure Debridement -Clinical Debridement Subcutaneous -Post Debridement Size (cm) - Length 0.6 -Post Debridement Size (cm) - Width 3.2 -Post Debridement Size (cm) - Depth 0.1 -Total Square Cm 1.92 -Wound/Ulcer Outcome Not Healed -Ulcer Cleansing Rinsed/ Irrigated with Saline -Foul Odor after Cleansing -Bioengineered Tissue -Bleeding Controlled with Pressure -Offloading Yes -Treatment Response Procedure Tolerated Well #7 Lateral RLE -Time 11:58 -Correct Patient Yes -Correct Side, Site, Position Yes -Correct Procedure Yes -Procedure Performed Yes -Type of Procedure Debridement -Clinical Debridement Subcutaneous -Post Debridement Size (cm) - Length 2.5 -Post Debridement Size (cm) - Width 1.6 -Post Debridement Size (cm) - Depth 0.1 -Total Square Cm 4.00 -Wound/Ulcer Outcome Not Healed -Ulcer Cleansing Rinsed/ Irrigated with Saline -Foul Odor after Cleansing -Bioengineered Tissue -Bleeding Controlled with Pressure -Offloading Yes -Treatment Response Procedure Tolerated Well Pain Scale: 0-10 Numeric Is Patient Pain Free? Yes Wound debrided: Left buttock Wound Grade/Stage: Stage 2 Type of Debridement: Excisional debridement Anesthesia Used: 4% Lidocaine Solution Depth: Down to and including healthy tissue, in the subcutaneous layer Percentage of wound debrided: 100 Instrument Used: 3mm curette Tissue Removed: Slough and devitalized tissue Severity: Fat Layer Exposed Amount of bleeding with debridement: Mild Bleeding Controlled with: Pressure Patient tolerated procedure well Assessment/Plan Active Problems (Last Reviewed 08/13/18 @ 10:19 by Fernando Patterson MD) Decubitus ulcer of left buttock, stage 2 (Acute) Ulcer of right lower extremity with fat layer exposed (Chronic) lateral ankle and also new anterior leg ulcer 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 Left leg ulcer with fat layer exposed, no infection. Right lateral ankle ulcer with fat layer exposed, no infection. Dorsal left foot ulcer with fat layer exposed, no infection. Paralysis. Bilateral lower extremity edema. Malnutrition Plan: Significant improvement noted in the past week. No new concerns at this time. Debridement done as documented above, procedure was well-tolerated. Continue Promogran daily with Adaptic over top. Continue OptiForm over this. Continue use of zinc oxide cream to surrounding area. Offloading again recommended. Other wound care management oer Dr. Naranjo. All his questions were answered and he was advised to call with any further questions or concerns. Follow-up in 1 week. This note was generated with [employer] dictation software. It may contain incorrect words, spelling, and punctuation that were not noted in checking the note before signing.
[2019-06-19 11:31] VITALS: BP 162/80; PULSE 70; RESP 18; BMI 24.3
--- NOTE | 2019-06-19 12:20 | PN.PCM_ITS ---
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: Resolved Current Visit: Yes Code(s): L97.922 - Non-pressure chronic ulcer of unspecified part of left lower leg with fat layer exposed (2) Ulcer of right lower extremity with fat layer exposed Status: Chronic Current Visit: Yes Code(s): L97.912 - Non-pressure chronic ulcer of unspecified part of right lower leg with fat layer exposed Comment: lateral ankle and also new anterior leg ulcer (3) Chronic ulcer of left foot with fat layer exposed Status: Chronic Current Visit: Yes Code(s): L97.522 - Non-pressure chronic ulcer of other part of left foot with fat layer exposed (4) Malnutrition Status: Chronic Current Visit: Yes Code(s): E46 - Unspecified protein- calorie malnutrition (5) Delayed wound healing Status: Chronic Current Visit: Yes Code(s): T14.8XXD - Other injury of unspecified body region, subsequent encounter (6) Edema leg Status: Chronic Current Visit: Yes Code(s): R60.0 - Localized edema (7) Paralysis Status: Chronic Current Visit: Yes Code(s): G83.9 - Paralytic syndrome, unspecified Type of Wound Date of Service: 06/19/19 Chief Complaint: Left foot ulcer and right leg ulcer. Other ulcers may be healed History of Wound: Mr Sabillon is an 83-year-old currently being seen in the wound center for lower extremity ulcers. He does not report any redness or new injuries or increased swelling. H He denies fever, chill, nausea, vomiting. He is with his son today. Progress of Wound: Improving left foot and right leg ulcer. Other ulcers are healed - Physical Exam Vital Signs Temp Pulse Resp BP 96.9 F L 70 18 162/80 H 06/12/19 11:27 06/19/19 11:31 06/19/19 11:31 06/19/19 11:31 General: Alert, Oriented x3, Cooperative, No apparent distress HEENT: Atraumatic Extremities: No cyanosis, Capillary Refill Less than 3 Seconds, No Calf Tenderness - Compartment soft bilateral, Diminished Peripheral Pulses, Edema - Mild bilateral lower extremities, - - Paralysis bilateral lower extremities Skin: Ulcer/ Wound - No purulence, erythema, streaking, odor, or infection. Improved granulation tissue noted to the right leg ulcer site. Improved granulation tissue but continued fibrous tissue noted to the dorsal left foot; peripheral epithelization is significant. No eschar deep probing bilateral other ulcer sites have healed to the lower extremities with full epithelialization noted Wound Measurements and Assessment WC - Nurse 1 - General Ulcer Measurement Start: 05/29/19 11:49 Freq: Status: Active Protocol: Activity Type Activity Date Activity User E-Sign Co-Sign Detail Recorded Client Recorded Date Recorded By Document 06/19/19 11:31 DV [id number] 06/19/19 11:49 DV 06/19/19 11:31 Wound Center Nurse 1 [Ulcer Assessment] #12- LT BUTTOCK -Combined with other wound No -Current Size (cm) - Length 0.5 -Current Size (cm) - Width 0.4 -Current Size (cm) - Depth 0.1 -Total Square Cm 0.20 -Photo Taken No -Epithelialization None Present -Tunneling No -Undermining/Tunneling No -Circular Undermining No -Classification - Thickness Full Thickness without Exposed Support Structure -Wound Margin Indistinct, Non -Visible -Granulation Amt None Present (0 %) -Granulation Quality N/A -Slough/Fibrin Yes -Necrosis Amt Large (67-100%) -Necrotic Tissue Type Adherent Slough -Structure Exposed None/Limited to Skin Breakdown -Texture (Denisse-wound Skin Appearance) Assessed, Scarring -Moisture (Denisse-wound Skin Appearance Assessed,Dry/ ) Scaly -Color (Denisse-wound Skin Appearance) No Abnormality, Assessed -Temperature (Denisse-wound Skin No Abnormality Appearance) (Pt Warm) -Tenderness on Palpation (Denisse-wound No Skin Appearance) -Foul Odor after Cleansing No -Anesthetic Used 5% Lidocaine Gel #11- L LAT LE -Combined with other wound No -Current Size (cm) - Length 0.1 -Current Size (cm) - Width 0.1 -Current Size (cm) - Depth 0.1 -Total Square Cm 0.01 -Photo Taken No -Epithelialization None Present -Tunneling No -Undermining/Tunneling No -Circular Undermining No -Classification - Thickness Full Thickness without Exposed Support Structure -Exudate Amt None Present -Wound Margin Flat & Intact -Granulation Amt None Present (0 %) -Granulation Quality N/A -Slough/Fibrin Yes -Necrosis Amt Medium (34-66%) -Necrotic Tissue Type Adherent Slough -Structure Exposed None/Limited to Skin Breakdown -Texture (Denisse-wound Skin Appearance) Assessed, Scarring -Moisture (Denisse-wound Skin Appearance Assessed,Dry/ ) Scaly -Color (Denisse-wound Skin Appearance) No Abnormality, Assessed -Temperature (Denisse-wound Skin No Abnormality Appearance) (Pt Warm) -Tenderness on Palpation (Denisse-wound No Skin Appearance) -Ulcer Cleansing Rinsed/ Irrigated with Saline -Anesthetic Used 5% Lidocaine Gel #10 RIGHT LATERAL ANKLE -Combined with other wound No -Current Size (cm) - Length 0.1 -Current Size (cm) - Width 0.1 -Current Size (cm) - Depth 0.1 -Total Square Cm 0.01 -Photo Taken No -Epithelialization None Present -Tunneling No -Undermining/Tunneling No -Circular Undermining No -Classification - Thickness Full Thickness without Exposed Support Structure -Exudate Amt None Present -Granulation Amt None Present (0 %) -Granulation Quality N/A -Slough/Fibrin No -Necrosis Amt Small (1-33%) -Necrotic Tissue Type Eschar -Structure Exposed None/Limited to Skin Breakdown -Texture (Denisse-wound Skin Appearance) No Abnormality, Assessed, Scarring -Moisture (Denisse-wound Skin Appearance No Abnormality, ) Dry/Scaly -Color (Denisse-wound Skin Appearance) No Abnormality, Assessed -Temperature (Denisse-wound Skin No Abnormality Appearance) (Pt Warm) -Foul Odor after Cleansing No -Anesthetic Used 5% Lidocaine Gel #9 LEFT MEDIAL DORSAL FOOT -Combined with other wound No -Current Size (cm) - Length 0.5 -Current Size (cm) - Width 1.2 -Current Size (cm) - Depth 0.2 -Total Square Cm 0.60 -Photo Taken No -Epithelialization None Present -Tunneling No -Undermining/Tunneling No -Circular Undermining No -Classification - Thickness Full Thickness without Exposed Support Structure -Exudate Amt None Present -Wound Margin Indistinct, Non -Visible -Granulation Amt None Present (0 %) -Granulation Quality N/A -Slough/Fibrin No -Necrosis Amt None Present (0 %) -Necrotic Tissue Type Adherent Slough -Structure Exposed None/Limited to Skin Breakdown -Texture (Denisse-wound Skin Appearance) Assessed, Scarring -Moisture (Denisse-wound Skin Appearance Assessed,Dry/ ) Scaly -Color (Denisse-wound Skin Appearance) Assessed -Temperature (Denisse-wound Skin No Abnormality Appearance) (Pt Warm) -Tenderness on Palpation (Denisse-wound No Skin Appearance) -Foul Odor after Cleansing No -Anesthetic Used 5% Lidocaine Gel #7 Lateral RLE -Combined with other wound No -Current Size (cm) - Length 6.0 -Current Size (cm) - Width 0.2 -Current Size (cm) - Depth 0.1 -Total Square Cm 1.20 -Photo Taken No -Epithelialization None Present -Tunneling No -Undermining/Tunneling No -Circular Undermining No -Classification - Thickness Full Thickness without Exposed Support Structure -Exudate Amt None Present -Wound Margin Fibrotic Scar, Thickened Scar -Granulation Amt None Present (0 %) -Granulation Quality N/A -Slough/Fibrin Yes -Necrosis Amt Small (1-33%) -Necrotic Tissue Type Adherent Slough -Structure Exposed None/Limited to Skin Breakdown -Texture (Denisse-wound Skin Appearance) Assessed, Scarring -Moisture (Denisse-wound Skin Appearance Assessed,Dry/ ) Scaly -Color (Denisse-wound Skin Appearance) No Abnormality, Assessed -Temperature (Denisse-wound Skin No Abnormality Appearance) (Pt Warm) -Foul Odor after Cleansing No -Anesthetic Used 5% Lidocaine Gel [Edema Assessment] -Lower Limb Edema Present No WC - Nurse 2 - General Ulcer CM Notes Start: 05/29/19 11:49 Freq: Status: Active Protocol: Activity Type Activity Date Activity User E-Sign Co-Sign Detail Recorded Client Recorded Date Recorded By Document 06/19/19 11:56 MW [id number] 06/19/19 11:57 MW Document 06/19/19 12:03 AN [id number] 06/19/19 12:09 AN 06/19/19 06/19/19 11:56 12:03 Wound Center Nurse 2 [Procedure/Treatment] #12- LT BUTTOCK -Time 11:56 -Correct Patient Yes -Correct Side, Site, Position Yes -Correct Procedure Yes -Procedure Performed No -Post Debridement Size (cm) - Length 0 -Post Debridement Size (cm) - Width 0 -Post Debridement Size (cm) - Depth 0 -Total Square Cm 0 -Wound/Ulcer Outcome Healed- Epithelialized -Bleeding Controlled with NA -Offloading No -Treatment Response Procedure Tolerated Well #9 LEFT MEDIAL DORSAL FOOT -Time 12:08 -Correct Patient Yes -Correct Side, Site, Position Yes -Correct Procedure Yes -Procedure Performed Yes -Type of Procedure Debridement -Clinical Debridement Subcutaneous -Post Debridement Size (cm) - Length 0.6 -Post Debridement Size (cm) - Width 1.3 -Post Debridement Size (cm) - Depth 0.1 -Total Square Cm 0.78 -Wound/Ulcer Outcome Not Healed -Ulcer Cleansing Rinsed/ Irrigated with Saline -Foul Odor after Cleansing No -Bioengineered Tissue No -Bleeding Controlled with Pressure -Offloading No -Type of Offloading Surgical Shoe -Treatment Response Procedure Tolerated Well #7 Lateral RLE -Time 12:08 -Correct Patient Yes -Correct Side, Site, Position Yes -Correct Procedure Yes -Procedure Performed Yes -Type of Procedure Debridement -Clinical Debridement Subcutaneous -Post Debridement Size (cm) - Length 6.1 -Post Debridement Size (cm) - Width 0.3 -Post Debridement Size (cm) - Depth 0.1 -Total Square Cm 1.83 -Wound/Ulcer Outcome Not Healed -Ulcer Cleansing Rinsed/ Irrigated with Saline -Foul Odor after Cleansing No -Bioengineered Tissue No -Bleeding Controlled with Pressure -Offloading No -Treatment Response Procedure Tolerated Well [See Physician Procedure note for Specifics] Pain Scale: 0-10 Numeric [Pain] -Is Patient Pain Free? 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 Psych/Mental Status: Normal Affect, Appropriate Debridement Note Post-Debridement Measurements/Treatment WC - Nurse 2 - General Ulcer CM Notes Start: 05/29/19 11:49 Freq: Status: Active Protocol: Activity Type Activity Date Activity User E-Sign Co-Sign Detail Recorded Client Recorded Date Recorded By Document 05/29/19 12:34 JF [id number] 05/29/19 12:36 JF Document 06/05/19 12:08 JF [id number] 06/05/19 12:12 JF Document 06/05/19 12:21 MW [id number] 06/05/19 12:28 MW Document 06/12/19 11:53 AN [id number] 06/12/19 11:59 AN Document 06/12/19 12:08 MW [id number] 06/12/19 12:09 MW Document 06/19/19 11:56 MW [id number] 07/24/19 11:57 MW Document 06/19/19 12:03 AN [id number] 06/19/19 12:09 AN 05/29/19 06/05/19 06/05/19 12:34 12:08 12:21 Wound Center Nurse 2 #12- LT BUTTOCK -Time 12:21 -Correct Patient Yes -Correct Side, Site, Position Yes -Correct Procedure Yes -Procedure Performed Yes -Type of Procedure Debridement -Clinical Debridement Subcutaneous -Post Debridement Size (cm) - Length 1.7 -Post Debridement Size (cm) - Width 1.7 -Post Debridement Size (cm) - Depth 0.1 -Total Square Cm 2.89 -Wound/Ulcer Outcome Not Healed -Ulcer Cleansing Rinsed/ Irrigated with Saline -Foul Odor after Cleansing No -Bioengineered Tissue No -Bleeding Controlled with Pressure -Offloading No -Treatment Response Procedure Tolerated Well #11- L LAT LE -Time 12:09 -Correct Patient Yes -Correct Side, Site, Position Yes -Correct Procedure Yes -Procedure Performed Yes -Type of Procedure Debridement -Clinical Debridement Subcutaneous -Post Debridement Size (cm) - Length 1.8 -Post Debridement Size (cm) - Width 1.8 -Post Debridement Size (cm) - Depth 0.1 -Total Square Cm 3.24 -Wound/Ulcer Outcome Not Healed -Ulcer Cleansing Rinsed/ Irrigated with Saline -Foul Odor after Cleansing No -Bioengineered Tissue No -Bleeding Controlled with Pressure -Offloading No -Treatment Response Procedure Tolerated Well #10 RIGHT LATERAL ANKLE -Time 12:34 12:09 -Correct Patient Yes Yes -Correct Side, Site, Position Yes Yes -Correct Procedure Yes Yes -Procedure Performed Yes Yes -Type of Procedure Debridement Debridement -Clinical Debridement Subcutaneous Subcutaneous -Post Debridement Size (cm) - Length 0.6 0.8 -Post Debridement Size (cm) - Width 0.6 0.3 -Post Debridement Size (cm) - Depth 0.2 0.1 -Total Square Cm 0.36 0.24 -Wound/Ulcer Outcome Not Healed Not Healed -Ulcer Cleansing Rinsed/ Rinsed/ Irrigated with Irrigated with Saline Saline -Foul Odor after Cleansing No No -Bioengineered Tissue No No -Bleeding Controlled with Pressure Pressure -Offloading No No -Treatment Response Procedure Procedure Tolerated Well Tolerated Well #9 LEFT MEDIAL DORSAL FOOT -Time 12:34 12:09 -Correct Patient Yes Yes -Correct Side, Site, Position Yes Yes -Correct Procedure Yes Yes -Procedure Performed Yes Yes -Type of Procedure Debridement Debridement -Clinical Debridement Subcutaneous Subcutaneous -Post Debridement Size (cm) - Length 1 1.5 -Post Debridement Size (cm) - Width 5.8 2.5 -Post Debridement Size (cm) - Depth 0.1 0.2 -Total Square Cm 5.8 3.75 -Wound/Ulcer Outcome Not Healed Not Healed -Ulcer Cleansing Rinsed/ Rinsed/ Irrigated with Irrigated with Saline Saline -Foul Odor after Cleansing No No -Bioengineered Tissue No No -Bleeding Controlled with Pressure Pressure -Offloading No No -Type of Offloading -Treatment Response Procedure Procedure Tolerated Well Tolerated Well #7 Lateral RLE -Time 12:35 12:10 -Correct Patient Yes Yes -Correct Side, Site, Position Yes Yes -Correct Procedure Yes Yes -Procedure Performed Yes Yes -Type of Procedure Debridement Debridement -Clinical Debridement Subcutaneous Subcutaneous -Post Debridement Size (cm) - Length 0.8 4.2 -Post Debridement Size (cm) - Width 1.6 1.5 -Post Debridement Size (cm) - Depth 0.1 0.1 -Total Square Cm 1.28 6.30 -Wound/Ulcer Outcome Not Healed Not Healed -Ulcer Cleansing Rinsed/ Rinsed/ Irrigated with Irrigated with Saline Saline -Foul Odor after Cleansing No No -Bioengineered Tissue No No -Bleeding Controlled with Pressure Pressure -Offloading No No -Treatment Response Procedure Procedure Tolerated Well Tolerated Well Pain Scale: 0-10 Numeric Is Patient Pain Free? Yes Yes 06/12/19 06/12/19 06/19/19 11:53 12:08 11:56 Wound Center Nurse 2 #12- LT BUTTOCK -Time 12:09 11:56 -Correct Patient Yes Yes -Correct Side, Site, Position Yes Yes -Correct Procedure Yes Yes -Procedure Performed Yes No -Type of Procedure Debridement -Clinical Debridement Subcutaneous -Post Debridement Size (cm) - Length 0.5 0 -Post Debridement Size (cm) - Width 0.4 0 -Post Debridement Size (cm) - Depth 0.1 0 -Total Square Cm 0.20 0 -Wound/Ulcer Outcome Not Healed Healed- Epithelialized -Ulcer Cleansing Rinsed/ Irrigated with Saline -Foul Odor after Cleansing No -Bioengineered Tissue No -Bleeding Controlled with Pressure NA -Offloading No No -Treatment Response Procedure Procedure Tolerated Well Tolerated Well #11- L LAT LE -Time 11:57 -Correct Patient Yes -Correct Side, Site, Position Yes -Correct Procedure Yes -Procedure Performed Yes -Type of Procedure Debridement -Clinical Debridement Subcutaneous -Post Debridement Size (cm) - Length 0.2 -Post Debridement Size (cm) - Width 0.2 -Post Debridement Size (cm) - Depth 0.1 -Total Square Cm 0.04 -Wound/Ulcer Outcome Not Healed -Ulcer Cleansing -Foul Odor after Cleansing -Bioengineered Tissue -Bleeding Controlled with -Offloading -Treatment Response Procedure Tolerated Well #10 RIGHT LATERAL ANKLE -Time 11:57 -Correct Patient Yes -Correct Side, Site, Position Yes -Correct Procedure Yes -Procedure Performed Yes -Type of Procedure Debridement -Clinical Debridement Subcutaneous -Post Debridement Size (cm) - Length 1.5 -Post Debridement Size (cm) - Width 1.0 -Post Debridement Size (cm) - Depth 0.1 -Total Square Cm 1.50 -Wound/Ulcer Outcome Not Healed -Ulcer Cleansing -Foul Odor after Cleansing -Bioengineered Tissue -Bleeding Controlled with Pressure -Offloading -Treatment Response Procedure Tolerated Well #9 LEFT MEDIAL DORSAL FOOT -Time 11:57 -Correct Patient Yes -Correct Side, Site, Position Yes -Correct Procedure Yes -Procedure Performed Yes -Type of Procedure Debridement -Clinical Debridement Subcutaneous -Post Debridement Size (cm) - Length 0.6 -Post Debridement Size (cm) - Width 3.2 -Post Debridement Size (cm) - Depth 0.1 -Total Square Cm 1.92 -Wound/Ulcer Outcome Not Healed -Ulcer Cleansing Rinsed/ Irrigated with Saline -Foul Odor after Cleansing -Bioengineered Tissue -Bleeding Controlled with Pressure -Offloading Yes -Type of Offloading -Treatment Response Procedure Tolerated Well #7 Lateral RLE -Time 11:58 -Correct Patient Yes -Correct Side, Site, Position Yes -Correct Procedure Yes -Procedure Performed Yes -Type of Procedure Debridement -Clinical Debridement Subcutaneous -Post Debridement Size (cm) - Length 2.5 -Post Debridement Size (cm) - Width 1.6 -Post Debridement Size (cm) - Depth 0.1 -Total Square Cm 4.00 -Wound/Ulcer Outcome Not Healed -Ulcer Cleansing Rinsed/ Irrigated with Saline -Foul Odor after Cleansing -Bioengineered Tissue -Bleeding Controlled with Pressure -Offloading Yes -Treatment Response Procedure Tolerated Well Pain Scale: 0-10 Numeric Is Patient Pain Free? Yes 06/19/19 12:03 Wound Center Nurse 2 #12- LT BUTTOCK -Time -Correct Patient -Correct Side, Site, Position -Correct Procedure -Procedure Performed -Type of Procedure -Clinical Debridement -Post Debridement Size (cm) - Length -Post Debridement Size (cm) - Width -Post Debridement Size (cm) - Depth -Total Square Cm -Wound/Ulcer Outcome -Ulcer Cleansing -Foul Odor after Cleansing -Bioengineered Tissue -Bleeding Controlled with -Offloading -Treatment Response #11- L LAT LE -Time -Correct Patient -Correct Side, Site, Position -Correct Procedure -Procedure Performed -Type of Procedure -Clinical Debridement -Post Debridement Size (cm) - Length -Post Debridement Size (cm) - Width -Post Debridement Size (cm) - Depth -Total Square Cm -Wound/Ulcer Outcome -Ulcer Cleansing -Foul Odor after Cleansing -Bioengineered Tissue -Bleeding Controlled with -Offloading -Treatment Response #10 RIGHT LATERAL ANKLE -Time -Correct Patient -Correct Side, Site, Position -Correct Procedure -Procedure Performed -Type of Procedure -Clinical Debridement -Post Debridement Size (cm) - Length -Post Debridement Size (cm) - Width -Post Debridement Size (cm) - Depth -Total Square Cm -Wound/Ulcer Outcome -Ulcer Cleansing -Foul Odor after Cleansing -Bioengineered Tissue -Bleeding Controlled with -Offloading -Treatment Response #9 LEFT MEDIAL DORSAL FOOT -Time 12:08 -Correct Patient Yes -Correct Side, Site, Position Yes -Correct Procedure Yes -Procedure Performed Yes -Type of Procedure Debridement -Clinical Debridement Subcutaneous -Post Debridement Size (cm) - Length 0.6 -Post Debridement Size (cm) - Width 1.3 -Post Debridement Size (cm) - Depth 0.1 -Total Square Cm 0.78 -Wound/Ulcer Outcome Not Healed -Ulcer Cleansing Rinsed/ Irrigated with Saline -Foul Odor after Cleansing No -Bioengineered Tissue No -Bleeding Controlled with Pressure -Offloading No -Type of Offloading Surgical Shoe -Treatment Response Procedure Tolerated Well #7 Lateral RLE -Time 12:08 -Correct Patient Yes -Correct Side, Site, Position Yes -Correct Procedure Yes -Procedure Performed Yes -Type of Procedure Debridement -Clinical Debridement Subcutaneous -Post Debridement Size (cm) - Length 6.1 -Post Debridement Size (cm) - Width 0.3 -Post Debridement Size (cm) - Depth 0.1 -Total Square Cm 1.83 -Wound/Ulcer Outcome Not Healed -Ulcer Cleansing Rinsed/ Irrigated with Saline -Foul Odor after Cleansing No -Bioengineered Tissue No -Bleeding Controlled with Pressure -Offloading No -Treatment Response Procedure Tolerated Well Pain Scale: 0-10 Numeric Is Patient Pain Free? Yes Wound debrided: posterior leg Laterality: Right Type of Debridement: Excisional debridement Anesthesia Used: 5% Lidocaine Gel Depth: in the subcutaneous layer Percentage of wound debrided: 100 Instrument Used: #15 blade Tissue Removed: fibrous, devitalized subcutaneous, biofilm, slough Severity: Fat Layer Exposed Amount of bleeding with debridement: Mild Bleeding Controlled with: Pressure Patient tolerated procedure well - Additional Wound Wound debrided: dorsal foot Laterality: Left Type of Debridement: Excisional debridement Anesthesia Used: 5% Lidocaine Gel Depth: in the subcutaneous layer Percentage of wound debrided: 100 Instrument Used: #15 blade Tissue Removed: fibrous, devitalized subcutaneous, biofilm, slough Severity: Fat Layer Exposed Amount of bleeding with debridement: Mild Bleeding Controlled with: Pressure Patient tolerated procedure: Patient tolerated procedure well Assessment/Plan Active Problems (Last Reviewed 08/13/18 @ 10:19 by Fernando Patterson MD) Decubitus ulcer of left buttock, stage 2 (Acute) Ulcer of right lower extremity with fat layer exposed (Chronic) lateral ankle and also new anterior leg ulcer Chronic ulcer of left foot with fat layer exposed (Chronic) Malnutrition (Chronic) Delayed wound healing (Chronic) Edema leg (Chronic) Paralysis (Chronic) 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 Left leg ulcer healed. Right lateral ankle ulcer healed. Dorsal left foot ulcer with fat layer exposed, no infection. Paralysis. Bilateral lower extremity edema. Malnutrition Plan: Significant improvement noted in the past week. No new concerns at this time. Debridement done as documented above, procedure was well-tolerated. Continue Santyl daily to left foot and right leg. To continue strict offloading. To continue with nutritional supplementation. Ulcer debridement was tolerated well. It is okay to transition to normal shoe gear on the right lower extremity and continue with surgical shoe on the left. Is okay to start standing machine use under guidance. He was reassured no signs of infection noted today. To continue Tubigrip for edema management. To return to clinic in 1 week or call sooner if he has any questions or concerns. All his questions were answered.
--- NOTE | 2019-06-19 12:58 | PN.PCM_ITS ---
(1) Decubitus ulcer of left buttock, stage 2 Status: Acute Current Visit: Yes Code(s): L89.322 - Pressure ulcer of left buttock, stage 2 (2) Paraplegia Status: Chronic Current Visit: Yes Code(s): G82.20 - Paraplegia, unspecified Comment: due to transverse myelitis Type of Wound Date of Service: 06/19/19 Chief Complaint: Left decubitus ulcer History of Wound: Mr Sabillon is an 83-year-old currently being seen in the wound center for lower extremity ulcers. He does not report any redness or new injuries or increased swelling. H He denies fever, chill, nausea, vomiting. He is with his son today. Progress of Wound: Left buttock ulcer is healed. - Physical Exam Vital Signs Temp Pulse Resp BP 96.9 F L 70 18 162/80 H 06/12/19 11:27 06/19/19 11:31 06/19/19 11:31 06/19/19 11:31 General: Alert, Oriented x3, Cooperative, No apparent distress HEENT: Atraumatic, Normocephalic Oral: Moist Mucosa Neck: Supple Extremities: No cyanosis Wound Measurements and Assessment WC - Nurse 1 - General Ulcer Measurement Start: 05/29/19 11:49 Freq: Status: Active Protocol: Activity Type Activity Date Activity User E-Sign Co-Sign Detail Recorded Client Recorded Date Recorded By Document 06/19/19 11:31 DV [id number] 06/19/19 11:49 DV 06/19/19 11:31 Wound Center Nurse 1 [Ulcer Assessment] #12- LT BUTTOCK -Combined with other wound No -Current Size (cm) - Length 0.5 -Current Size (cm) - Width 0.4 -Current Size (cm) - Depth 0.1 -Total Square Cm 0.20 -Photo Taken No -Epithelialization None Present -Tunneling No -Undermining/Tunneling No -Circular Undermining No -Classification - Thickness Full Thickness without Exposed Support Structure -Wound Margin Indistinct, Non -Visible -Granulation Amt None Present (0 %) -Granulation Quality N/A -Slough/Fibrin Yes -Necrosis Amt Large (67-100%) -Necrotic Tissue Type Adherent Slough -Structure Exposed None/Limited to Skin Breakdown -Texture (Denisse-wound Skin Appearance) Assessed, Scarring -Moisture (Denisse-wound Skin Appearance Assessed,Dry/ ) Scaly -Color (Denisse-wound Skin Appearance) No Abnormality, Assessed -Temperature (Denisse-wound Skin No Abnormality Appearance) (Pt Warm) -Tenderness on Palpation (Denisse-wound No Skin Appearance) -Foul Odor after Cleansing No -Anesthetic Used 5% Lidocaine Gel #11- L LAT LE -Combined with other wound No -Current Size (cm) - Length 0.1 -Current Size (cm) - Width 0.1 -Current Size (cm) - Depth 0.1 -Total Square Cm 0.01 -Photo Taken No -Epithelialization None Present -Tunneling No -Undermining/Tunneling No -Circular Undermining No -Classification - Thickness Full Thickness without Exposed Support Structure -Exudate Amt None Present -Wound Margin Flat & Intact -Granulation Amt None Present (0 %) -Granulation Quality N/A -Slough/Fibrin Yes -Necrosis Amt Medium (34-66%) -Necrotic Tissue Type Adherent Slough -Structure Exposed None/Limited to Skin Breakdown -Texture (Denisse-wound Skin Appearance) Assessed, Scarring -Moisture (Denisse-wound Skin Appearance Assessed,Dry/ ) Scaly -Color (Denisse-wound Skin Appearance) No Abnormality, Assessed -Temperature (Denisse-wound Skin No Abnormality Appearance) (Pt Warm) -Tenderness on Palpation (Denisse-wound No Skin Appearance) -Ulcer Cleansing Rinsed/ Irrigated with Saline -Anesthetic Used 5% Lidocaine Gel #10 RIGHT LATERAL ANKLE -Combined with other wound No -Current Size (cm) - Length 0.1 -Current Size (cm) - Width 0.1 -Current Size (cm) - Depth 0.1 -Total Square Cm 0.01 -Photo Taken No -Epithelialization None Present -Tunneling No -Undermining/Tunneling No -Circular Undermining No -Classification - Thickness Full Thickness without Exposed Support Structure -Exudate Amt None Present -Granulation Amt None Present (0 %) -Granulation Quality N/A -Slough/Fibrin No -Necrosis Amt Small (1-33%) -Necrotic Tissue Type Eschar -Structure Exposed None/Limited to Skin Breakdown -Texture (Denisse-wound Skin Appearance) No Abnormality, Assessed, Scarring -Moisture (Denisse-wound Skin Appearance No Abnormality, ) Dry/Scaly -Color (Denisse-wound Skin Appearance) No Abnormality, Assessed -Temperature (Denisse-wound Skin No Abnormality Appearance) (Pt Warm) -Foul Odor after Cleansing No -Anesthetic Used 5% Lidocaine Gel #9 LEFT MEDIAL DORSAL FOOT -Combined with other wound No -Current Size (cm) - Length 0.5 -Current Size (cm) - Width 1.2 -Current Size (cm) - Depth 0.2 -Total Square Cm 0.60 -Photo Taken No -Epithelialization None Present -Tunneling No -Undermining/Tunneling No -Circular Undermining No -Classification - Thickness Full Thickness without Exposed Support Structure -Exudate Amt None Present -Wound Margin Indistinct, Non -Visible -Granulation Amt None Present (0 %) -Granulation Quality N/A -Slough/Fibrin No -Necrosis Amt None Present (0 %) -Necrotic Tissue Type Adherent Slough -Structure Exposed None/Limited to Skin Breakdown -Texture (Denisse-wound Skin Appearance) Assessed, Scarring -Moisture (Denisse-wound Skin Appearance Assessed,Dry/ ) Scaly -Color (Denisse-wound Skin Appearance) Assessed -Temperature (Denisse-wound Skin No Abnormality Appearance) (Pt Warm) -Tenderness on Palpation (Denisse-wound No Skin Appearance) -Foul Odor after Cleansing No -Anesthetic Used 5% Lidocaine Gel #7 Lateral RLE -Combined with other wound No -Current Size (cm) - Length 6.0 -Current Size (cm) - Width 0.2 -Current Size (cm) - Depth 0.1 -Total Square Cm 1.20 -Photo Taken No -Epithelialization None Present -Tunneling No -Undermining/Tunneling No -Circular Undermining No -Classification - Thickness Full Thickness without Exposed Support Structure -Exudate Amt None Present -Wound Margin Fibrotic Scar, Thickened Scar -Granulation Amt None Present (0 %) -Granulation Quality N/A -Slough/Fibrin Yes -Necrosis Amt Small (1-33%) -Necrotic Tissue Type Adherent Slough -Structure Exposed None/Limited to Skin Breakdown -Texture (Denisse-wound Skin Appearance) Assessed, Scarring -Moisture (Denisse-wound Skin Appearance Assessed,Dry/ ) Scaly -Color (Denisse-wound Skin Appearance) No Abnormality, Assessed -Temperature (Denisse-wound Skin No Abnormality Appearance) (Pt Warm) -Foul Odor after Cleansing No -Anesthetic Used 5% Lidocaine Gel [Edema Assessment] -Lower Limb Edema Present No WC - Nurse 2 - General Ulcer CM Notes Start: 07/03/19 11:49 Freq: Status: Active Protocol: Activity Type Activity Date Activity User E-Sign Co-Sign Detail Recorded Client Recorded Date Recorded By Document 06/19/19 11:56 MW [id number] 06/19/19 11:57 MW Document 06/19/19 12:03 AN [id number] 06/19/19 12:09 AN 06/19/19 06/19/19 11:56 12:03 Wound Center Nurse 2 [Procedure/Treatment] #12- LT BUTTOCK -Time 11:56 -Correct Patient Yes -Correct Side, Site, Position Yes -Correct Procedure Yes -Procedure Performed No -Post Debridement Size (cm) - Length 0 -Post Debridement Size (cm) - Width 0 -Post Debridement Size (cm) - Depth 0 -Total Square Cm 0 -Wound/Ulcer Outcome Healed- Epithelialized -Bleeding Controlled with NA -Offloading No -Treatment Response Procedure Tolerated Well #9 LEFT MEDIAL DORSAL FOOT -Time 12:08 -Correct Patient Yes -Correct Side, Site, Position Yes -Correct Procedure Yes -Procedure Performed Yes -Type of Procedure Debridement -Clinical Debridement Subcutaneous -Post Debridement Size (cm) - Length 0.6 -Post Debridement Size (cm) - Width 1.3 -Post Debridement Size (cm) - Depth 0.1 -Total Square Cm 0.78 -Wound/Ulcer Outcome Not Healed -Ulcer Cleansing Rinsed/ Irrigated with Saline -Foul Odor after Cleansing No -Bioengineered Tissue No -Bleeding Controlled with Pressure -Offloading No -Type of Offloading Surgical Shoe -Treatment Response Procedure Tolerated Well #7 Lateral RLE -Time 12:08 -Correct Patient Yes -Correct Side, Site, Position Yes -Correct Procedure Yes -Procedure Performed Yes -Type of Procedure Debridement -Clinical Debridement Subcutaneous -Post Debridement Size (cm) - Length 6.1 -Post Debridement Size (cm) - Width 0.3 -Post Debridement Size (cm) - Depth 0.1 -Total Square Cm 1.83 -Wound/Ulcer Outcome Not Healed -Ulcer Cleansing Rinsed/ Irrigated with Saline -Foul Odor after Cleansing No -Bioengineered Tissue No -Bleeding Controlled with Pressure -Offloading No -Treatment Response Procedure Tolerated Well [See Physician Procedure note for Specifics] Pain Scale: 0-10 Numeric [Pain] -Is Patient Pain Free? Yes Neurological: Cranial nerves II-XII grossly intact Psych/Mental Status: Normal Affect Debridement Note Post-Debridement Measurements/Treatment WC - Nurse 2 - General Ulcer CM Notes Start: 05/29/19 11:49 Freq: Status: Active Protocol: Activity Type Activity Date Activity User E-Sign Co-Sign Detail Recorded Client Recorded Date Recorded By Document 05/29/19 12:34 JF [id number] 05/29/19 12:36 JF Document 06/05/19 12:08 JF [id number] 06/05/19 12:12 JF Document 06/05/19 12:21 MW [id number] 06/05/19 12:28 MW Document 06/12/19 11:53 AN [id number] 06/12/19 11:59 AN Document 06/12/19 12:08 MW [id number] 06/12/19 12:09 MW Document 06/19/19 11:56 MW [id number] 06/19/19 11:57 MW Document 06/19/19 12:03 AN [id number] 06/19/19 12:09 AN 05/29/19 06/05/19 06/05/19 12:34 12:08 12:21 Wound Center Nurse 2 #12- LT BUTTOCK -Time 12:21 -Correct Patient Yes -Correct Side, Site, Position Yes -Correct Procedure Yes -Procedure Performed Yes -Type of Procedure Debridement -Clinical Debridement Subcutaneous -Post Debridement Size (cm) - Length 1.7 -Post Debridement Size (cm) - Width 1.7 -Post Debridement Size (cm) - Depth 0.1 -Total Square Cm 2.89 -Wound/Ulcer Outcome Not Healed -Ulcer Cleansing Rinsed/ Irrigated with Saline -Foul Odor after Cleansing No -Bioengineered Tissue No -Bleeding Controlled with Pressure -Offloading No -Treatment Response Procedure Tolerated Well #11- L LAT LE -Time 12:09 -Correct Patient Yes -Correct Side, Site, Position Yes -Correct Procedure Yes -Procedure Performed Yes -Type of Procedure Debridement -Clinical Debridement Subcutaneous -Post Debridement Size (cm) - Length 1.8 -Post Debridement Size (cm) - Width 1.8 -Post Debridement Size (cm) - Depth 0.1 -Total Square Cm 3.24 -Wound/Ulcer Outcome Not Healed -Ulcer Cleansing Rinsed/ Irrigated with Saline -Foul Odor after Cleansing No -Bioengineered Tissue No -Bleeding Controlled with Pressure -Offloading No -Treatment Response Procedure Tolerated Well #10 RIGHT LATERAL ANKLE -Time 12:34 12:09 -Correct Patient Yes Yes -Correct Side, Site, Position Yes Yes -Correct Procedure Yes Yes -Procedure Performed Yes Yes -Type of Procedure Debridement Debridement -Clinical Debridement Subcutaneous Subcutaneous -Post Debridement Size (cm) - Length 0.6 0.8 -Post Debridement Size (cm) - Width 0.6 0.3 -Post Debridement Size (cm) - Depth 0.2 0.1 -Total Square Cm 0.36 0.24 -Wound/Ulcer Outcome Not Healed Not Healed -Ulcer Cleansing Rinsed/ Rinsed/ Irrigated with Irrigated with Saline Saline -Foul Odor after Cleansing No No -Bioengineered Tissue No No -Bleeding Controlled with Pressure Pressure -Offloading No No -Treatment Response Procedure Procedure Tolerated Well Tolerated Well #9 LEFT MEDIAL DORSAL FOOT -Time 12:34 12:09 -Correct Patient Yes Yes -Correct Side, Site, Position Yes Yes -Correct Procedure Yes Yes -Procedure Performed Yes Yes -Type of Procedure Debridement Debridement -Clinical Debridement Subcutaneous Subcutaneous -Post Debridement Size (cm) - Length 1 1.5 -Post Debridement Size (cm) - Width 5.8 2.5 -Post Debridement Size (cm) - Depth 0.1 0.2 -Total Square Cm 5.8 3.75 -Wound/Ulcer Outcome Not Healed Not Healed -Ulcer Cleansing Rinsed/ Rinsed/ Irrigated with Irrigated with Saline Saline -Foul Odor after Cleansing No No -Bioengineered Tissue No No -Bleeding Controlled with Pressure Pressure -Offloading No No -Type of Offloading -Treatment Response Procedure Procedure Tolerated Well Tolerated Well #7 Lateral RLE -Time 12:35 12:10 -Correct Patient Yes Yes -Correct Side, Site, Position Yes Yes -Correct Procedure Yes Yes -Procedure Performed Yes Yes -Type of Procedure Debridement Debridement -Clinical Debridement Subcutaneous Subcutaneous -Post Debridement Size (cm) - Length 0.8 4.2 -Post Debridement Size (cm) - Width 1.6 1.5 -Post Debridement Size (cm) - Depth 0.1 0.1 -Total Square Cm 1.28 6.30 -Wound/Ulcer Outcome Not Healed Not Healed -Ulcer Cleansing Rinsed/ Rinsed/ Irrigated with Irrigated with Saline Saline -Foul Odor after Cleansing No No -Bioengineered Tissue No No -Bleeding Controlled with Pressure Pressure -Offloading No No -Treatment Response Procedure Procedure Tolerated Well Tolerated Well Pain Scale: 0-10 Numeric Is Patient Pain Free? Yes Yes 06/12/19 06/12/19 06/19/19 11:53 12:08 11:56 Wound Center Nurse 2 #12- LT BUTTOCK -Time 12:09 11:56 -Correct Patient Yes Yes -Correct Side, Site, Position Yes Yes -Correct Procedure Yes Yes -Procedure Performed Yes No -Type of Procedure Debridement -Clinical Debridement Subcutaneous -Post Debridement Size (cm) - Length 0.5 0 -Post Debridement Size (cm) - Width 0.4 0 -Post Debridement Size (cm) - Depth 0.1 0 -Total Square Cm 0.20 0 -Wound/Ulcer Outcome Not Healed Healed- Epithelialized -Ulcer Cleansing Rinsed/ Irrigated with Saline -Foul Odor after Cleansing No -Bioengineered Tissue No -Bleeding Controlled with Pressure NA -Offloading No No -Treatment Response Procedure Procedure Tolerated Well Tolerated Well #11- L LAT LE -Time 11:57 -Correct Patient Yes -Correct Side, Site, Position Yes -Correct Procedure Yes -Procedure Performed Yes -Type of Procedure Debridement -Clinical Debridement Subcutaneous -Post Debridement Size (cm) - Length 0.2 -Post Debridement Size (cm) - Width 0.2 -Post Debridement Size (cm) - Depth 0.1 -Total Square Cm 0.04 -Wound/Ulcer Outcome Not Healed -Ulcer Cleansing -Foul Odor after Cleansing -Bioengineered Tissue -Bleeding Controlled with -Offloading -Treatment Response Procedure Tolerated Well #10 RIGHT LATERAL ANKLE -Time 11:57 -Correct Patient Yes -Correct Side, Site, Position Yes -Correct Procedure Yes -Procedure Performed Yes -Type of Procedure Debridement -Clinical Debridement Subcutaneous -Post Debridement Size (cm) - Length 1.5 -Post Debridement Size (cm) - Width 1.0 -Post Debridement Size (cm) - Depth 0.1 -Total Square Cm 1.50 -Wound/Ulcer Outcome Not Healed -Ulcer Cleansing -Foul Odor after Cleansing -Bioengineered Tissue -Bleeding Controlled with Pressure -Offloading -Treatment Response Procedure Tolerated Well #9 LEFT MEDIAL DORSAL FOOT -Time 11:57 -Correct Patient Yes -Correct Side, Site, Position Yes -Correct Procedure Yes -Procedure Performed Yes -Type of Procedure Debridement -Clinical Debridement Subcutaneous -Post Debridement Size (cm) - Length 0.6 -Post Debridement Size (cm) - Width 3.2 -Post Debridement Size (cm) - Depth 0.1 -Total Square Cm 1.92 -Wound/Ulcer Outcome Not Healed -Ulcer Cleansing Rinsed/ Irrigated with Saline -Foul Odor after Cleansing -Bioengineered Tissue -Bleeding Controlled with Pressure -Offloading Yes -Type of Offloading -Treatment Response Procedure Tolerated Well #7 Lateral RLE -Time 11:58 -Correct Patient Yes -Correct Side, Site, Position Yes -Correct Procedure Yes -Procedure Performed Yes -Type of Procedure Debridement -Clinical Debridement Subcutaneous -Post Debridement Size (cm) - Length 2.5 -Post Debridement Size (cm) - Width 1.6 -Post Debridement Size (cm) - Depth 0.1 -Total Square Cm 4.00 -Wound/Ulcer Outcome Not Healed -Ulcer Cleansing Rinsed/ Irrigated with Saline -Foul Odor after Cleansing -Bioengineered Tissue -Bleeding Controlled with Pressure -Offloading Yes -Treatment Response Procedure Tolerated Well Pain Scale: 0-10 Numeric Is Patient Pain Free? Yes 06/19/19 12:03 Wound Center Nurse 2 #12- LT BUTTOCK -Time -Correct Patient -Correct Side, Site, Position -Correct Procedure -Procedure Performed -Type of Procedure -Clinical Debridement -Post Debridement Size (cm) - Length -Post Debridement Size (cm) - Width -Post Debridement Size (cm) - Depth -Total Square Cm -Wound/Ulcer Outcome -Ulcer Cleansing -Foul Odor after Cleansing -Bioengineered Tissue -Bleeding Controlled with -Offloading -Treatment Response #11- L LAT LE -Time -Correct Patient -Correct Side, Site, Position -Correct Procedure -Procedure Performed -Type of Procedure -Clinical Debridement -Post Debridement Size (cm) - Length -Post Debridement Size (cm) - Width -Post Debridement Size (cm) - Depth -Total Square Cm -Wound/Ulcer Outcome -Ulcer Cleansing -Foul Odor after Cleansing -Bioengineered Tissue -Bleeding Controlled with -Offloading -Treatment Response #10 RIGHT LATERAL ANKLE -Time -Correct Patient -Correct Side, Site, Position -Correct Procedure -Procedure Performed -Type of Procedure -Clinical Debridement -Post Debridement Size (cm) - Length -Post Debridement Size (cm) - Width -Post Debridement Size (cm) - Depth -Total Square Cm -Wound/Ulcer Outcome -Ulcer Cleansing -Foul Odor after Cleansing -Bioengineered Tissue -Bleeding Controlled with -Offloading -Treatment Response #9 LEFT MEDIAL DORSAL FOOT -Time 12:08 -Correct Patient Yes -Correct Side, Site, Position Yes -Correct Procedure Yes -Procedure Performed Yes -Type of Procedure Debridement -Clinical Debridement Subcutaneous -Post Debridement Size (cm) - Length 0.6 -Post Debridement Size (cm) - Width 1.3 -Post Debridement Size (cm) - Depth 0.1 -Total Square Cm 0.78 -Wound/Ulcer Outcome Not Healed -Ulcer Cleansing Rinsed/ Irrigated with Saline -Foul Odor after Cleansing No -Bioengineered Tissue No -Bleeding Controlled with Pressure -Offloading No -Type of Offloading Surgical Shoe -Treatment Response Procedure Tolerated Well #7 Lateral RLE -Time 12:08 -Correct Patient Yes -Correct Side, Site, Position Yes -Correct Procedure Yes -Procedure Performed Yes -Type of Procedure Debridement -Clinical Debridement Subcutaneous -Post Debridement Size (cm) - Length 6.1 -Post Debridement Size (cm) - Width 0.3 -Post Debridement Size (cm) - Depth 0.1 -Total Square Cm 1.83 -Wound/Ulcer Outcome Not Healed -Ulcer Cleansing Rinsed/ Irrigated with Saline -Foul Odor after Cleansing No -Bioengineered Tissue No -Bleeding Controlled with Pressure -Offloading No -Treatment Response Procedure Tolerated Well Pain Scale: 0-10 Numeric Is Patient Pain Free? 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 Left leg ulcer with fat layer exposed, no infection. Right lateral ankle ulcer with fat layer exposed, no infection. Dorsal left foot ulcer with fat layer exposed, no infection. Paralysis. Bilateral lower extremity edema. Malnutrition Plan: Left buttock ulcer is healed. No new concerns at this time. Continue use of zinc oxide cream to surrounding area. Offloading again recommended. Other wound care management per Dr. Naranjo. All his questions were answered and he was advised to call with any further questions or concerns continue follow-up with Dr Naranjo. This note was generated with [employer] dictation software. It may contain incorrect words, spelling, and punctuation that were not noted in checking the note before signing.
[2019-06-26 11:42] VITALS: BP 159/94; PULSE 85; RESP 16; TEMP 37.3; BMI 24.3
--- NOTE | 2019-06-26 13:42 | PN.PCM_ITS ---
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 Current Visit: Yes Code(s): L97.522 - Non-pressure chronic ulcer of other part of left foot with fat layer exposed (3) Malnutrition Status: Chronic Current Visit: Yes Code(s): E46 - Unspecified protein- calorie malnutrition (4) Delayed wound healing Status: Chronic Current Visit: Yes Code(s): T14.8XXD - Other injury of unspecified body region, subsequent encounter (5) Edema leg Status: Chronic Current Visit: Yes Code(s): R60.0 - Localized edema (6) Paralysis Status: Chronic Current Visit: Yes Code(s): G83.9 - Paralytic syndrome, unspecified Type of Wound Date of Service: 06/26/19 Chief Complaint: Left foot ulcer and right leg ulcer History of Wound: Mr Sabillon is an 83-year-old currently being seen in the wound center for lower extremity ulcers. He does not report any redness or new injuries or increased swelling. He denies fever, chill, nausea, vomiting. Progress of Wound: Improving left foot and right leg ulcer - Physical Exam Vital Signs Temp Pulse Resp BP 99.2 F H 85 16 159/94 H 06/26/19 11:42 06/26/19 11:42 06/26/19 11:42 06/26/19 11:42 General: Alert, Oriented x3, Cooperative, No apparent distress Extremities: Capillary Refill Less than 3 Seconds, No Calf Tenderness - Negative Ayanna and Ortega sign bilateral, Diminished Peripheral Pulses, Edema - mild Skin: Ulcer/ Wound - No purulence, erythema, string, odor, infection bilateral. There is resolved fibrous and eschar tissue. The peripheral skin is hairless and atrophic. Abrasion left knee superficial without infection or deep tissue exposure Wound Measurements and Assessment WC - Nurse 1 - General Ulcer Measurement Start: 05/29/19 11:49 Freq: Status: Active Protocol: Activity Type Activity Date Activity User E-Sign Co-Sign Detail Recorded Client Recorded Date Recorded By Document 06/26/19 11:42 [id number] 06/26/19 11:51 06/26/19 11:42 Wound Center Nurse 1 [Ulcer Assessment] #13 LEFT KNEE -Combined with other wound No -Current Size (cm) - Length 0.9 -Current Size (cm) - Width 0.5 -Current Size (cm) - Depth 0.1 -Total Square Cm 0.45 -Date of Last Picture (Recall this 06/26/19 field) -Photo Taken Yes -Epithelialization Small 1-33% -Tunneling No -Undermining/Tunneling No -Circular Undermining No -Exudate Amt Large -Exudate Type Serosanguineous -Temperature (Denisse-wound Skin No Abnormality Appearance) (Pt Warm) -Tenderness on Palpation (Denisse-wound No Skin Appearance) -Ulcer Cleansing Rinsed/ Irrigated with Saline -Foul Odor after Cleansing No -Anesthetic Used 4% Lidocaine Solution #9 LEFT MEDIAL DORSAL FOOT -Combined with other wound No -Current Size (cm) - Length 0.3 -Current Size (cm) - Width 1.1 -Current Size (cm) - Depth 0.1 -Total Square Cm 0.33 -Photo Taken No -Epithelialization None Present -Tunneling No -Undermining/Tunneling No -Circular Undermining No -Exudate Amt Small -Exudate Type Serosanguineous -Wound Margin Distinct, Outline Attached -Granulation Amt Small (1-33%) -Granulation Quality Pale -Slough/Fibrin Yes -Necrosis Amt None Present (0 %) -Necrotic Tissue Type Adherent Slough -Structure Exposed None/Limited to Skin Breakdown -Texture (Denisse-wound Skin Appearance) Scarring -Moisture (Denisse-wound Skin Appearance Dry/Scaly ) -Color (Denisse-wound Skin Appearance) No Abnormality, Assessed -Temperature (Denisse-wound Skin No Abnormality Appearance) (Pt Warm) -Tenderness on Palpation (Denisse-wound No Skin Appearance) -Ulcer Cleansing Rinsed/ Irrigated with Saline -Foul Odor after Cleansing No -Anesthetic Used 4% Lidocaine Solution #7 Lateral RLE -Combined with other wound No -Current Size (cm) - Length 3 -Current Size (cm) - Width 0.9 -Current Size (cm) - Depth 0.1 -Total Square Cm 2.7 -Photo Taken No -Epithelialization Small 1-33% -Tunneling No -Undermining/Tunneling No -Circular Undermining No -Exudate Amt Small -Exudate Type Serosanguineous -Wound Margin Distinct, Outline Attached -Granulation Amt Small (1-33%) -Granulation Quality Red -Slough/Fibrin Yes -Necrosis Amt None Present (0 %) -Necrotic Tissue Type Adherent Slough -Structure Exposed None/Limited to Skin Breakdown -Texture (Denisse-wound Skin Appearance) Assessed, Scarring -Moisture (Denisse-wound Skin Appearance No Abnormality, ) Assessed -Color (Denisse-wound Skin Appearance) No Abnormality, Assessed -Temperature (Denisse-wound Skin No Abnormality Appearance) (Pt Warm) -Tenderness on Palpation (Denisse-wound No Skin Appearance) -Ulcer Cleansing Rinsed/ Irrigated with Saline -Foul Odor after Cleansing No -Anesthetic Used 4% Lidocaine Solution Musculoskeletal: No Tenderness to Palpation of Joints or Extremities, Muscle Wasting Neurological: - - Lack of normal epicritic sensation bilateral lower extremities. Paralysis and wheelchair Psych/Mental Status: Normal Affect, Appropriate Debridement Note Post-Debridement Measurements/Treatment WC - Nurse 2 - General Ulcer CM Notes Start: 05/29/19 11:49 Freq: Status: Active Protocol: Activity Type Activity Date Activity User E-Sign Co-Sign Detail Recorded Client Recorded Date Recorded By Document 05/29/19 12:34 JF [id number] 05/29/19 12:36 JF Document 06/05/19 12:08 JF [id number] 06/05/19 12:12 JF Document 06/05/19 12:21 MW [id number] 06/05/19 12:28 MW Document 06/12/19 11:53 AN [id number] 06/12/19 11:59 AN Document 06/12/19 12:08 MW [id number] 06/12/19 12:09 MW Document 06/19/19 11:56 MW [id number] 06/19/19 11:57 MW Document 06/19/19 12:03 AN [id number] 06/19/19 12:09 AN 05/29/19 06/05/19 06/05/19 12:34 12:08 12:21 Wound Center Nurse 2 #12- LT BUTTOCK -Time 12:21 -Correct Patient Yes -Correct Side, Site, Position Yes -Correct Procedure Yes -Procedure Performed Yes -Type of Procedure Debridement -Clinical Debridement Subcutaneous -Post Debridement Size (cm) - Length 1.7 -Post Debridement Size (cm) - Width 1.7 -Post Debridement Size (cm) - Depth 0.1 -Total Square Cm 2.89 -Wound/Ulcer Outcome Not Healed -Ulcer Cleansing Rinsed/ Irrigated with Saline -Foul Odor after Cleansing No -Bioengineered Tissue No -Bleeding Controlled with Pressure -Offloading No -Treatment Response Procedure Tolerated Well #11- L LAT LE -Time 12:09 -Correct Patient Yes -Correct Side, Site, Position Yes -Correct Procedure Yes -Procedure Performed Yes -Type of Procedure Debridement -Clinical Debridement Subcutaneous -Post Debridement Size (cm) - Length 1.8 -Post Debridement Size (cm) - Width 1.8 -Post Debridement Size (cm) - Depth 0.1 -Total Square Cm 3.24 -Wound/Ulcer Outcome Not Healed -Ulcer Cleansing Rinsed/ Irrigated with Saline -Foul Odor after Cleansing No -Bioengineered Tissue No -Bleeding Controlled with Pressure -Offloading No -Treatment Response Procedure Tolerated Well #10 RIGHT LATERAL ANKLE -Time 12:34 12:09 -Correct Patient Yes Yes -Correct Side, Site, Position Yes Yes -Correct Procedure Yes Yes -Procedure Performed Yes Yes -Type of Procedure Debridement Debridement -Clinical Debridement Subcutaneous Subcutaneous -Post Debridement Size (cm) - Length 0.6 0.8 -Post Debridement Size (cm) - Width 0.6 0.3 -Post Debridement Size (cm) - Depth 0.2 0.1 -Total Square Cm 0.36 0.24 -Wound/Ulcer Outcome Not Healed Not Healed -Ulcer Cleansing Rinsed/ Rinsed/ Irrigated with Irrigated with Saline Saline -Foul Odor after Cleansing No No -Bioengineered Tissue No No -Bleeding Controlled with Pressure Pressure -Offloading No No -Treatment Response Procedure Procedure Tolerated Well Tolerated Well #9 LEFT MEDIAL DORSAL FOOT -Time 12:34 12:09 -Correct Patient Yes Yes -Correct Side, Site, Position Yes Yes -Correct Procedure Yes Yes -Procedure Performed Yes Yes -Type of Procedure Debridement Debridement -Clinical Debridement Subcutaneous Subcutaneous -Post Debridement Size (cm) - Length 1 1.5 -Post Debridement Size (cm) - Width 5.8 2.5 -Post Debridement Size (cm) - Depth 0.1 0.2 -Total Square Cm 5.8 3.75 -Wound/Ulcer Outcome Not Healed Not Healed -Ulcer Cleansing Rinsed/ Rinsed/ Irrigated with Irrigated with Saline Saline -Foul Odor after Cleansing No No -Bioengineered Tissue No No -Bleeding Controlled with Pressure Pressure -Offloading No No -Type of Offloading -Treatment Response Procedure Procedure Tolerated Well Tolerated Well #7 Lateral RLE -Time 12:35 12:10 -Correct Patient Yes Yes -Correct Side, Site, Position Yes Yes -Correct Procedure Yes Yes -Procedure Performed Yes Yes -Type of Procedure Debridement Debridement -Clinical Debridement Subcutaneous Subcutaneous -Post Debridement Size (cm) - Length 0.8 4.2 -Post Debridement Size (cm) - Width 1.6 1.5 -Post Debridement Size (cm) - Depth 0.1 0.1 -Total Square Cm 1.28 6.30 -Wound/Ulcer Outcome Not Healed Not Healed -Ulcer Cleansing Rinsed/ Rinsed/ Irrigated with Irrigated with Saline Saline -Foul Odor after Cleansing No No -Bioengineered Tissue No No -Bleeding Controlled with Pressure Pressure -Offloading No No -Treatment Response Procedure Procedure Tolerated Well Tolerated Well Pain Scale: 0-10 Numeric Is Patient Pain Free? Yes Yes 06/12/19 06/12/19 06/19/19 11:53 12:08 11:56 Wound Center Nurse 2 #12- LT BUTTOCK -Time 12:09 11:56 -Correct Patient Yes Yes -Correct Side, Site, Position Yes Yes -Correct Procedure Yes Yes -Procedure Performed Yes No -Type of Procedure Debridement -Clinical Debridement Subcutaneous -Post Debridement Size (cm) - Length 0.5 0 -Post Debridement Size (cm) - Width 0.4 0 -Post Debridement Size (cm) - Depth 0.1 0 -Total Square Cm 0.20 0 -Wound/Ulcer Outcome Not Healed Healed- Epithelialized -Ulcer Cleansing Rinsed/ Irrigated with Saline -Foul Odor after Cleansing No -Bioengineered Tissue No -Bleeding Controlled with Pressure NA -Offloading No No -Treatment Response Procedure Procedure Tolerated Well Tolerated Well #11- L LAT LE -Time 11:57 -Correct Patient Yes -Correct Side, Site, Position Yes -Correct Procedure Yes -Procedure Performed Yes -Type of Procedure Debridement -Clinical Debridement Subcutaneous -Post Debridement Size (cm) - Length 0.2 -Post Debridement Size (cm) - Width 0.2 -Post Debridement Size (cm) - Depth 0.1 -Total Square Cm 0.04 -Wound/Ulcer Outcome Not Healed -Ulcer Cleansing -Foul Odor after Cleansing -Bioengineered Tissue -Bleeding Controlled with -Offloading -Treatment Response Procedure Tolerated Well #10 RIGHT LATERAL ANKLE -Time 11:57 -Correct Patient Yes -Correct Side, Site, Position Yes -Correct Procedure Yes -Procedure Performed Yes -Type of Procedure Debridement -Clinical Debridement Subcutaneous -Post Debridement Size (cm) - Length 1.5 -Post Debridement Size (cm) - Width 1.0 -Post Debridement Size (cm) - Depth 0.1 -Total Square Cm 1.50 -Wound/Ulcer Outcome Not Healed -Ulcer Cleansing -Foul Odor after Cleansing -Bioengineered Tissue -Bleeding Controlled with Pressure -Offloading -Treatment Response Procedure Tolerated Well #9 LEFT MEDIAL DORSAL FOOT -Time 11:57 -Correct Patient Yes -Correct Side, Site, Position Yes -Correct Procedure Yes -Procedure Performed Yes -Type of Procedure Debridement -Clinical Debridement Subcutaneous -Post Debridement Size (cm) - Length 0.6 -Post Debridement Size (cm) - Width 3.2 -Post Debridement Size (cm) - Depth 0.1 -Total Square Cm 1.92 -Wound/Ulcer Outcome Not Healed -Ulcer Cleansing Rinsed/ Irrigated with Saline -Foul Odor after Cleansing -Bioengineered Tissue -Bleeding Controlled with Pressure -Offloading Yes -Type of Offloading -Treatment Response Procedure Tolerated Well #7 Lateral RLE -Time 11:58 -Correct Patient Yes -Correct Side, Site, Position Yes -Correct Procedure Yes -Procedure Performed Yes -Type of Procedure Debridement -Clinical Debridement Subcutaneous -Post Debridement Size (cm) - Length 2.5 -Post Debridement Size (cm) - Width 1.6 -Post Debridement Size (cm) - Depth 0.1 -Total Square Cm 4.00 -Wound/Ulcer Outcome Not Healed -Ulcer Cleansing Rinsed/ Irrigated with Saline -Foul Odor after Cleansing -Bioengineered Tissue -Bleeding Controlled with Pressure -Offloading Yes -Treatment Response Procedure Tolerated Well Pain Scale: 0-10 Numeric Is Patient Pain Free? Yes 06/19/19 12:03 Wound Center Nurse 2 #12- LT BUTTOCK -Time -Correct Patient -Correct Side, Site, Position -Correct Procedure -Procedure Performed -Type of Procedure -Clinical Debridement -Post Debridement Size (cm) - Length -Post Debridement Size (cm) - Width -Post Debridement Size (cm) - Depth -Total Square Cm -Wound/Ulcer Outcome -Ulcer Cleansing -Foul Odor after Cleansing -Bioengineered Tissue -Bleeding Controlled with -Offloading -Treatment Response #11- L LAT LE -Time -Correct Patient -Correct Side, Site, Position -Correct Procedure -Procedure Performed -Type of Procedure -Clinical Debridement -Post Debridement Size (cm) - Length -Post Debridement Size (cm) - Width -Post Debridement Size (cm) - Depth -Total Square Cm -Wound/Ulcer Outcome -Ulcer Cleansing -Foul Odor after Cleansing -Bioengineered Tissue -Bleeding Controlled with -Offloading -Treatment Response #10 RIGHT LATERAL ANKLE -Time -Correct Patient -Correct Side, Site, Position -Correct Procedure -Procedure Performed -Type of Procedure -Clinical Debridement -Post Debridement Size (cm) - Length -Post Debridement Size (cm) - Width -Post Debridement Size (cm) - Depth -Total Square Cm -Wound/Ulcer Outcome -Ulcer Cleansing -Foul Odor after Cleansing -Bioengineered Tissue -Bleeding Controlled with -Offloading -Treatment Response #9 LEFT MEDIAL DORSAL FOOT -Time 12:08 -Correct Patient Yes -Correct Side, Site, Position Yes -Correct Procedure Yes -Procedure Performed Yes -Type of Procedure Debridement -Clinical Debridement Subcutaneous -Post Debridement Size (cm) - Length 0.6 -Post Debridement Size (cm) - Width 1.3 -Post Debridement Size (cm) - Depth 0.1 -Total Square Cm 0.78 -Wound/Ulcer Outcome Not Healed -Ulcer Cleansing Rinsed/ Irrigated with Saline -Foul Odor after Cleansing No -Bioengineered Tissue No -Bleeding Controlled with Pressure -Offloading No -Type of Offloading Surgical Shoe -Treatment Response Procedure Tolerated Well #7 Lateral RLE -Time 12:08 -Correct Patient Yes -Correct Side, Site, Position Yes -Correct Procedure Yes -Procedure Performed Yes -Type of Procedure Debridement -Clinical Debridement Subcutaneous -Post Debridement Size (cm) - Length 6.1 -Post Debridement Size (cm) - Width 0.3 -Post Debridement Size (cm) - Depth 0.1 -Total Square Cm 1.83 -Wound/Ulcer Outcome Not Healed -Ulcer Cleansing Rinsed/ Irrigated with Saline -Foul Odor after Cleansing No -Bioengineered Tissue No -Bleeding Controlled with Pressure -Offloading No -Treatment Response Procedure Tolerated Well Pain Scale: 0-10 Numeric Is Patient Pain Free? Yes Wound debrided: dorsal foot Laterality: Left Type of Debridement: Excisional debridement Anesthesia Used: 5% Lidocaine Gel Depth: in the subcutaneous layer Percentage of wound debrided: 100 Instrument Used: #15 blade Tissue Removed: fibrous, devitalized subcutaneous, biofilm, slough Severity: Fat Layer Exposed Amount of bleeding with debridement: Mild Bleeding Controlled with: Pressure Patient tolerated procedure well - Additional Wound Wound debrided: lateral leg Laterality: Right Type of Debridement: Excisional debridement Anesthesia Used: 5% Lidocaine Gel Depth: in the subcutaneous layer Percentage of wound debrided: 100 Instrument Used: #15 blade Tissue Removed: fibrous, devitalized subcutaneous, biofilm, slough Severity: Fat Layer Exposed Amount of bleeding with debridement: Mild Bleeding Controlled with: Pressure Patient tolerated procedure: Patient tolerated procedure well Assessment/Plan Active Problems (Last Reviewed 08/13/18 @ 10:19 by Fernando Patterson MD) Decubitus ulcer of left buttock, stage 2 (Acute) Ulcer of right lower extremity with fat layer exposed (Chronic) lateral ankle and also new anterior leg ulcer Chronic ulcer of left foot with fat layer exposed (Chronic) Malnutrition (Chronic) Delayed wound healing (Chronic) Edema leg (Chronic) Paralysis (Chronic) 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 Dorsal left foot ulcer with fat layer exposed, no infection. Paralysis. Bilateral lower extremity edema. Malnutrition Plan: Significant improvement noted in the past week. No new concerns at this time. Debridement done as documented above, procedure was well-tolerated. Continue Juani daily to left foot and right leg. To continue strict off loading. To continue with nutritional supplementation. Ulcer debridement was tolerated well. It is okay to transition to normal shoe gear on the right lower extremity and continue with surgical shoe on the left. Is okay to start standing machine use under guidance. He was reassured no signs of infection noted today. To continue Tubigrip for edema management. To return to clinic in 1 week or call sooner if he has any questions or concerns. All his questions were answered.
== END 2019-06-26 23:59 ==
LOC: WC 11:45
PROVIDERS: Family Provider Family Medicine; PCP Family Medicine; Referring Provider Podiatrist; Visit Provider Podiatrist
DX: I73.9 Peripheral vascular disease, unspecified (principal); L97.312 Non-pressure chronic ulcer of right ankle with fat layer exposed; L97.812 Non-pressure chronic ulcer of other part of right lower leg with fat layer exposed; L97.522 Non-pressure chronic ulcer of other part of left foot with fat layer exposed; R60.0 Localized edema; G82.20 Paraplegia, unspecified; I10 Essential (primary) hypertension; G89.29 Other chronic pain; Z79.899 Other long term (current) drug therapy; Z79.891 Long term (current) use of opiate analgesic; L97.822 Non-pressure chronic ulcer of other part of left lower leg with fat layer exposed; L89.322 Pressure ulcer of left buttock, stage 2
CPT/HCPCS: 11042; 99212; G0463

== ENCOUNTER → 2019-07-17 08:40 | Outpatient (CLI) | payer MEDICARE, OTHER, SELFPAY ==
[2019-07-03 10:50] VITALS: BMI 24.3
[2019-07-17 10:32] LABS: ALB/GLOB Ratio 0.9 RATIO (0.9-2.4); AST(SGOT) 55 U/L (15-37); Alanine Aminotransfer ALT/SGPT 100 U/L (16-61); Albumin, Serum 3.5 g/dL (3.2-5.0); Alkaline Phosphatase 220 U/L (45-117); Anion Gap 3 (5-15); BUN 18 mg/dL (7-18); BUN/Creat Ratio 20.8 RATIO (10-20); Calcium,Total 8.7 mg/dL (8.5-10.1); Chloride 103 mmol/L (98-107); Cholesterol 96 mg/dL (200); Creatinine, Serum 0.87 mg/dL (0.70-1.30); EST Glomerular Filtration Rate 90 mL/min (>60); Est Glom Filt Rate - Afr Amer 109 mL/min (>60); Globulin 4.1 g/dL (2.2-4.2); Glucose 97 mg/dL (74-106); High Density Lipoprotein 50 mg/dL; Protein, Total 7.6 g/dL (6.4-8.2); Sodium Level 143 mmol/L (136-145); Thyroid Stim Hormone (TSH) 9.15 uIU/mL (0.358-3.74); Triglycerides 53 mg/dL; Very Low Density Lipoprotein 11 mg/dL (5-40)
== END ==
PROVIDERS: Family Provider Family Medicine; PCP Family Medicine; Referring Provider Nurse Practitioner Adult Health; Visit Provider Nurse Practitioner Adult Health
DX: Z13.220 Encounter for screening for lipoid disorders (principal); Z13.1 Encounter for screening for diabetes mellitus; F32.9 Major depressive disorder, single episode, unspecified; I10 Essential (primary) hypertension; R68.89 Other general symptoms and signs
CPT/HCPCS: 36415; 80053; 80061; 84443

== ENCOUNTER 2019-07-24 11:00 | Outpatient (RCR) | payer MEDICARE, OTHER, SELFPAY ==
[2019-06-27 00:37] VITALS: BP 159/94; PULSE 85; RESP 16; TEMP 37.3
[2019-07-03 10:50] VITALS: BP 124/72; PULSE 68; RESP 18; TEMP 36.3; BMI 24.3
--- NOTE | 2019-07-03 13:15 | PCM.WC.PN ---
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 Comment: lateral ankle and also new anterior leg ulcer (2) Ulcer of left lower extremity with fat layer exposed Status: Resolved Current Visit: Yes Code(s): L97.922 - Non-pressure chronic ulcer of unspecified part of left lower leg with fat layer exposed (3) Paralysis Status: Chronic Current Visit: Yes Code(s): G83.9 - Paralytic syndrome, unspecified (4) Malnutrition Status: Chronic Current Visit: Yes Code(s): E46 - Unspecified protein-calorie malnutrition (5) Delayed wound healing Status: Chronic Current Visit: Yes Code(s): T14.8XXD - Other injury of unspecified body region, subsequent encounter (6) Edema leg Status: Chronic Current Visit: Yes Code(s): R60.0 - Localized edema Type of Wound Date of Service: 07/03/19 Chief Complaint: Left foot ulcer and right leg ulcer History of Wound: Mr Sabillon is an 83-year-old currently being seen in the wound center for lower extremity ulcers. He does not report any redness or new injuries or increased swelling. He denies fever, chill, nausea, vomiting. Progress of Wound: Improving left foot and right leg ulcer - Physical Exam Vital Signs Temp Pulse Resp BP 97.3 F L 68 18 124/72 H 07/03/19 10:50 07/03/19 10:50 07/03/19 10:50 07/03/19 10:50 General: Alert, Oriented x3, Cooperative, No apparent distress Extremities: No cyanosis, Capillary Refill Less than 3 Seconds, No Calf Tenderness - Negative ham bilateral, Diminished Peripheral Pulses, Edema, - - Paralysis bilateral lower extremity; wheelchair use Skin: Ulcer/ Wound - No purulence, erythema, string, odor, infection. Granulation tissue noted. Peripheral skin is atrophic Wound Measurements and Assessment WC - Nurse 1 - General Ulcer Measurement Start: 07/03/19 10:50 Freq: Status: Active Protocol: Activity Type Activity Date Activity User E-Sign Co-Sign Detail Recorded Client Recorded Date Recorded By Document 07/03/19 10:50 RB [id number] 07/03/19 11:08 RB 07/03/19 10:50 Wound Center Nurse 1 [Ulcer Assessment] #13 LEFT KNEE -Combined with other wound No -Current Size (cm) - Length 0.1 -Current Size (cm) - Width 0.1 -Current Size (cm) - Depth 0.1 -Total Square Cm 0.01 -Tunneling No -Undermining/Tunneling No -Circular Undermining No -Exudate Amt None Present -Wound Margin Distinct, Outline Attached -Granulation Amt Large (67-100%) -Granulation Quality [place] -Slough/Fibrin Yes -Necrosis Amt Small (1-33%) -Necrotic Tissue Type Adherent Slough -Structure Exposed N/A -Texture (Denisse-wound Skin Appearance) Assessed -Moisture (Denisse-wound Skin Appearance Assessed ) -Color (Denisse-wound Skin Appearance) Assessed -Temperature (Denisse-wound Skin No Abnormality Appearance) (Pt Warm) -Tenderness on Palpation (Denisse-wound No Skin Appearance) -Ulcer Cleansing Rinsed/ Irrigated with Saline -Foul Odor after Cleansing No #9 LEFT MEDIAL DORSAL FOOT -Combined with other wound No -Current Size (cm) - Length 0.3 -Current Size (cm) - Width 0.9 -Current Size (cm) - Depth 0.1 -Total Square Cm 0.27 -Tunneling No -Undermining/Tunneling No -Circular Undermining No -Exudate Amt Small -Exudate Type Serosanguineous -Wound Margin Flat & Intact -Granulation Amt Medium (34-66%) -Granulation Quality [place] -Slough/Fibrin Yes -Necrosis Amt Medium (34-66%) -Necrotic Tissue Type Adherent Slough -Structure Exposed N/A -Texture (Denisse-wound Skin Appearance) Assessed -Moisture (Denisse-wound Skin Appearance Assessed ) -Color (Denisse-wound Skin Appearance) Assessed -Temperature (Denisse-wound Skin No Abnormality Appearance) (Pt Warm) -Tenderness on Palpation (Denisse-wound No Skin Appearance) -Ulcer Cleansing Rinsed/ Irrigated with Saline -Foul Odor after Cleansing No -Anesthetic Used 4% Lidocaine Solution #7 Lateral RLE -Combined with other wound No -Current Size (cm) - Length 3.2 -Current Size (cm) - Width 0.3 -Current Size (cm) - Depth 0.1 -Total Square Cm 0.96 -Tunneling No -Undermining/Tunneling No -Circular Undermining No -Exudate Amt Small -Exudate Type Serosanguineous -Wound Margin Flat & Intact -Granulation Amt Medium (34-66%) -Granulation Quality [place] -Slough/Fibrin Yes -Necrosis Amt Small (1-33%) -Necrotic Tissue Type Adherent Slough -Structure Exposed N/A -Texture (Denisse-wound Skin Appearance) Assessed -Moisture (Denisse-wound Skin Appearance Assessed ) -Color (Denisse-wound Skin Appearance) Hemosiderin Staining -Temperature (Denisse-wound Skin No Abnormality Appearance) (Pt Warm) -Tenderness on Palpation (Denisse-wound No Skin Appearance) -Ulcer Cleansing Rinsed/ Irrigated with Saline -Foul Odor after Cleansing No -Anesthetic Used 4% Lidocaine Solution [Edema Assessment] -Lower Limb Edema Present Yes -Right Calf (cm) 26.4 -Right Ankle (cm) 19.5 -Left Calf (cm) 28 -Left Ankle (cm) 21.5 WC - Nurse 2 - General Ulcer CM Notes Start: 07/03/19 10:50 Freq: Status: Active Protocol: Activity Type Activity Date Activity User E-Sign Co-Sign Detail Recorded Client Recorded Date Recorded By Document 07/03/19 11:21 AN [id number] 07/03/19 11:25 AN 07/03/19 11:21 Wound Center Nurse 2 [Procedure/Treatment] #13 LEFT KNEE -Correct Patient Yes -Correct Side, Site, Position Yes -Correct Procedure Yes -Procedure Performed No -Wound/Ulcer Outcome Not Healed -Ulcer Cleansing Rinsed/ Irrigated with Saline -Foul Odor after Cleansing No -Bioengineered Tissue No -Bleeding Controlled with Pressure -Offloading Yes -Treatment Response Procedure Tolerated Well #9 LEFT MEDIAL DORSAL FOOT -Time 11:22 -Correct Patient Yes -Correct Side, Site, Position Yes -Correct Procedure Yes -Procedure Performed Yes -Type of Procedure Debridement -Clinical Debridement Subcutaneous -Post Debridement Size (cm) - Length 0.4 -Post Debridement Size (cm) - Width 1.0 -Post Debridement Size (cm) - Depth 0.1 -Total Square Cm 0.40 -Wound/Ulcer Outcome Not Healed -Ulcer Cleansing Rinsed/ Irrigated with Saline -Foul Odor after Cleansing No -Bioengineered Tissue No -Bleeding Controlled with Pressure -Offloading Yes -Treatment Response Procedure Tolerated Well #7 Lateral RLE -Time 11:22 -Correct Patient Yes -Correct Side, Site, Position Yes -Correct Procedure Yes -Procedure Performed Yes -Type of Procedure Debridement -Clinical Debridement Subcutaneous -Post Debridement Size (cm) - Length 3.3 -Post Debridement Size (cm) - Width 0.4 -Post Debridement Size (cm) - Depth 0.1 -Total Square Cm 1.32 -Wound/Ulcer Outcome Not Healed -Ulcer Cleansing Rinsed/ Irrigated with Saline -Foul Odor after Cleansing No -Bleeding Controlled with Pressure -Offloading Yes -Treatment Response Procedure Tolerated Well [See Physician Procedure note for Specifics] Pain Scale: 0-10 Numeric [Pain] -Is Patient Pain Free? Yes Musculoskeletal: No Tenderness to Palpation of Joints or Extremities, Muscle Wasting Neurological: - - Lack of epicritic sensation light touch consistent with neuropathy Psych/Mental Status: Normal Affect, Appropriate Debridement Note Post-Debridement Measurements/Treatment WC - Nurse 2 - General Ulcer CM Notes Start: 07/03/19 10:50 Freq: Status: Active Protocol: Activity Type Activity Date Activity User E-Sign Co-Sign Detail Recorded Client Recorded Date Recorded By Document 07/03/19 11:21 AN [id number] 07/03/19 11:25 AN 07/03/19 11:21 Wound Center Nurse 2 #13 LEFT KNEE -Correct Patient Yes -Correct Side, Site, Position Yes -Correct Procedure Yes -Procedure Performed No -Wound/Ulcer Outcome Not Healed -Ulcer Cleansing Rinsed/ Irrigated with Saline -Foul Odor after Cleansing No -Bioengineered Tissue No -Bleeding Controlled with Pressure -Offloading Yes -Treatment Response Procedure Tolerated Well #9 LEFT MEDIAL DORSAL FOOT -Time 11:22 -Correct Patient Yes -Correct Side, Site, Position Yes -Correct Procedure Yes -Procedure Performed Yes -Type of Procedure Debridement -Clinical Debridement Subcutaneous -Post Debridement Size (cm) - Length 0.4 -Post Debridement Size (cm) - Width 1.0 -Post Debridement Size (cm) - Depth 0.1 -Total Square Cm 0.40 -Wound/Ulcer Outcome Not Healed -Ulcer Cleansing Rinsed/ Irrigated with Saline -Foul Odor after Cleansing No -Bioengineered Tissue No -Bleeding Controlled with Pressure -Offloading Yes -Treatment Response Procedure Tolerated Well #7 Lateral RLE -Time 11:22 -Correct Patient Yes -Correct Side, Site, Position Yes -Correct Procedure Yes -Procedure Performed Yes -Type of Procedure Debridement -Clinical Debridement Subcutaneous -Post Debridement Size (cm) - Length 3.3 -Post Debridement Size (cm) - Width 0.4 -Post Debridement Size (cm) - Depth 0.1 -Total Square Cm 1.32 -Wound/Ulcer Outcome Not Healed -Ulcer Cleansing Rinsed/ Irrigated with Saline -Foul Odor after Cleansing No -Bleeding Controlled with Pressure -Offloading Yes -Treatment Response Procedure Tolerated Well Pain Scale: 0-10 Numeric Is Patient Pain Free? Yes Wound debrided: dorsal foot Laterality: Left Type of Debridement: Excisional debridement Anesthesia Used: 5% Lidocaine Gel Depth: in the subcutaneous layer Percentage of wound debrided: 100 Instrument Used: #15 blade Tissue Removed: fibrous, devitalized subcutaneous, biofilm, slough Severity: Fat Layer Exposed Amount of bleeding with debridement: Mild Bleeding Controlled with: Pressure Patient tolerated procedure well - Additional Wound Wound debrided: lateral leg Laterality: Right Type of Debridement: Excisional debridement Anesthesia Used: 5% Lidocaine Gel Depth: in the subcutaneous layer Percentage of wound debrided: 100 Instrument Used: #15 blade Tissue Removed: fibrous, devitalized subcutaneous, biofilm, slough Severity: Fat Layer Exposed Amount of bleeding with debridement: Mild Bleeding Controlled with: Pressure Patient tolerated procedure: Patient tolerated procedure well Assessment/Plan Active Problems (Last Reviewed 08/13/18 @ 10:19 by Fernando Patterson MD) 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 Dorsal left foot ulcer with fat layer exposed, no infection. Paralysis. Bilateral lower extremity edema. Malnutrition Plan: I reviewed her case. No new concerns at this time. Debridement done as documented above, procedure was well-tolerated. Continue Juani daily to left foot and right leg. To continue strict offloading. To continue with nutritional supplementation. Ulcer debridement was tolerated well. It is okay to transition to normal shoe gear on the right lower extremity and continue with surgical shoe on the left. Is okay to start standing machine use under guidance. He was reassured no signs of infection noted today. To continue Tubigrip for edema management. To return to clinic in 1 week or call sooner if he has any questions or concerns. All his questions were answered.
[2019-07-17 11:26] VITALS: BP 123/70; PULSE 57; RESP 18; TEMP 36.1; BMI 24.3
--- NOTE | 2019-07-17 13:14 | PN.PCM_ITS ---
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 Current Visit: Yes Code(s): L97.522 - Non-pressure chronic ulcer of other part of left foot with fat layer exposed (2) Ulcer of right lower extremity with fat layer exposed Status: Chronic Current Visit: Yes Code(s): L97.912 - Non-pressure chronic ulcer of unspecified part of right lower leg with fat layer exposed Comment: lateral ankle and also new anterior leg ulcer (3) Paralysis Status: Chronic Current Visit: Yes Code(s): G83.9 - Paralytic syndrome, unspecified (4) Malnutrition Status: Chronic Current Visit: Yes Code(s): E46 - Unspecified protein- calorie malnutrition (5) Delayed wound healing Status: Chronic Current Visit: Yes Code(s): T14.8XXD - Other injury of unspecified body region, subsequent encounter (6) Edema leg Status: Chronic Current Visit: Yes Code(s): R60.0 - Localized edema Type of Wound Date of Service: 07/17/19 Chief Complaint: Left foot ulcer and right leg ulcer History of Wound: Mr Sabillon is an 83-year-old currently being seen in the wound center for lower extremity ulcers. He does not report any redness or new injuries or increased swelling. He denies fever, chill, nausea, vomiting. Progress of Wound: Improving left foot and right leg ulcer - Physical Exam Vital Signs Temp Pulse Resp BP 97 F L 57 L 18 123/70 H 07/17/19 11:26 07/17/19 11:26 07/17/19 11:26 07/17/19 11:26 General: Alert, Oriented x3, Cooperative, No apparent distress Extremities: No cyanosis, Capillary Refill Less than 3 Seconds, No Calf Tenderness - Bilateral lower hemiparalysis; wheelchair use noted, Diminished Peripheral Pulses, Edema - mild bilateral Skin: Ulcer/ Wound - No purulence, erythema, streaking, odor, infection bilateral. The peripheral skin is very atrophic Wound Measurements and Assessment WC - Nurse 1 - General Ulcer Measurement Start: 07/03/19 10:50 Freq: Status: Active Protocol: Activity Type Activity Date Activity User E-Sign Co-Sign Detail Recorded Client Recorded Date Recorded By Document 07/17/19 11:26 RB [email or web address] 07/17/19 11:30 RB 07/17/19 11:26 Wound Center Nurse 1 [Ulcer Assessment] #9 LEFT MEDIAL DORSAL FOOT -Combined with other wound No -Current Size (cm) - Length 0.4 -Current Size (cm) - Width 0.4 -Current Size (cm) - Depth 0.2 -Total Square Cm 0.16 -Photo Taken No -Tunneling No -Undermining/Tunneling No -Circular Undermining No -Exudate Amt Small -Exudate Type Serosanguineous -Wound Margin Distinct, Outline Attached -Granulation Amt Medium (34-66%) -Granulation Quality [place] -Slough/Fibrin Yes -Necrosis Amt Medium (34-66%) -Necrotic Tissue Type Adherent Slough -Structure Exposed N/A -Texture (Denisse-wound Skin Appearance) Assessed, Scarring -Moisture (Denisse-wound Skin Appearance Assessed ) -Color (Denisse-wound Skin Appearance) Assessed -Temperature (Denisse-wound Skin No Abnormality Appearance) (Pt Warm) -Tenderness on Palpation (Denisse-wound No Skin Appearance) -Ulcer Cleansing Wound Cleanser -Foul Odor after Cleansing No -Anesthetic Used 4% Lidocaine Solution #7 Lateral RLE -Current Size (cm) - Length 0.1 -Current Size (cm) - Width 0.1 -Current Size (cm) - Depth 0.1 -Total Square Cm 0.01 -Tunneling No -Undermining/Tunneling No -Circular Undermining No -Exudate Amt Small -Exudate Type Serosanguineous -Wound Margin Distinct, Outline Attached -Granulation Amt Small (1-33%) -Granulation Quality [place] -Slough/Fibrin Yes -Necrosis Amt Medium (34-66%) -Necrotic Tissue Type Adherent Slough -Structure Exposed N/A -Texture (Denisse-wound Skin Appearance) Assessed, Scarring -Moisture (Denisse-wound Skin Appearance No Abnormality ) -Color (Denisse-wound Skin Appearance) Assessed -Temperature (Denisse-wound Skin No Abnormality Appearance) (Pt Warm) -Tenderness on Palpation (Denisse-wound No Skin Appearance) -Ulcer Cleansing Rinsed/ Irrigated with Saline -Foul Odor after Cleansing No -Anesthetic Used 4% Lidocaine Solution [Edema Assessment] -Lower Limb Edema Present Yes -Right Calf (cm) 27 -Right Ankle (cm) 21 -Left Calf (cm) 29 -Left Ankle (cm) 22.3 WC - Nurse 2 - General Ulcer CM Notes Start: 07/03/19 10:50 Freq: Status: Active Protocol: Activity Type Activity Date Activity User E-Sign Co-Sign Detail Recorded Client Recorded Date Recorded By Document 07/17/19 11:44 AN [id number] 07/17/19 11:46 AN 07/17/19 11:44 Wound Center Nurse 2 [Procedure/Treatment] #9 LEFT MEDIAL DORSAL FOOT -Time 11:45 -Correct Patient Yes -Correct Side, Site, Position Yes -Correct Procedure Yes -Procedure Performed Yes -Type of Procedure Debridement -Clinical Debridement Subcutaneous -Post Debridement Size (cm) - Length 0.5 -Post Debridement Size (cm) - Width 0.5 -Post Debridement Size (cm) - Depth 0.2 -Total Square Cm 0.25 -Wound/Ulcer Outcome Not Healed -Ulcer Cleansing Rinsed/ Irrigated with Saline -Foul Odor after Cleansing No -Bioengineered Tissue No -Bleeding Controlled with Pressure -Offloading Yes -Treatment Response Procedure Tolerated Well #7 Lateral RLE -Time 11:45 -Correct Patient Yes -Correct Side, Site, Position Yes -Correct Procedure Yes -Procedure Performed Yes -Type of Procedure Debridement -Clinical Debridement Subcutaneous -Post Debridement Size (cm) - Length 0.2 -Post Debridement Size (cm) - Width 0.2 -Post Debridement Size (cm) - Depth 0.1 -Total Square Cm 0.04 -Wound/Ulcer Outcome Not Healed -Ulcer Cleansing Rinsed/ Irrigated with Saline -Foul Odor after Cleansing No -Bioengineered Tissue No -Bleeding Controlled with Pressure -Offloading Yes -Treatment Response Procedure Tolerated Well [See Physician Procedure note for Specifics] Pain Scale: 0-10 Numeric [Pain] -Is Patient Pain Free? Yes Musculoskeletal: No Tenderness to Palpation of Joints or Extremities, Muscle Wasting, - - Compartment soft to palpate bilateral Neurological: - - Lack of normal epicritic sensation light touch Debridement Note Post-Debridement Measurements/Treatment WC - Nurse 2 - General Ulcer CM Notes Start: 07/03/19 10:50 Freq: Status: Active Protocol: Activity Type Activity Date Activity User E-Sign Co-Sign Detail Recorded Client Recorded Date Recorded By Document 07/03/19 11:21 AN [id number] 07/03/19 11:25 AN Document 07/17/19 11:44 AN [id number] 07/17/19 11:46 AN 07/03/19 07/17/19 11:21 11:44 Wound Center Nurse 2 #13 LEFT KNEE -Correct Patient Yes -Correct Side, Site, Position Yes -Correct Procedure Yes -Procedure Performed No -Wound/Ulcer Outcome Not Healed -Ulcer Cleansing Rinsed/ Irrigated with Saline -Foul Odor after Cleansing No -Bioengineered Tissue No -Bleeding Controlled with Pressure -Offloading Yes -Treatment Response Procedure Tolerated Well #9 LEFT MEDIAL DORSAL FOOT -Time 11:22 11:45 -Correct Patient Yes Yes -Correct Side, Site, Position Yes Yes -Correct Procedure Yes Yes -Procedure Performed Yes Yes -Type of Procedure Debridement Debridement -Clinical Debridement Subcutaneous Subcutaneous -Post Debridement Size (cm) - Length 0.4 0.5 -Post Debridement Size (cm) - Width 1.0 0.5 -Post Debridement Size (cm) - Depth 0.1 0.2 -Total Square Cm 0.40 0.25 -Wound/Ulcer Outcome Not Healed Not Healed -Ulcer Cleansing Rinsed/ Rinsed/ Irrigated with Irrigated with Saline Saline -Foul Odor after Cleansing No No -Bioengineered Tissue No No -Bleeding Controlled with Pressure Pressure -Offloading Yes Yes -Treatment Response Procedure Procedure Tolerated Well Tolerated Well #7 Lateral RLE -Time 11:22 11:45 -Correct Patient Yes Yes -Correct Side, Site, Position Yes Yes -Correct Procedure Yes Yes -Procedure Performed Yes Yes -Type of Procedure Debridement Debridement -Clinical Debridement Subcutaneous Subcutaneous -Post Debridement Size (cm) - Length 3.3 0.2 -Post Debridement Size (cm) - Width 0.4 0.2 -Post Debridement Size (cm) - Depth 0.1 0.1 -Total Square Cm 1.32 0.04 -Wound/Ulcer Outcome Not Healed Not Healed -Ulcer Cleansing Rinsed/ Rinsed/ Irrigated with Irrigated with Saline Saline -Foul Odor after Cleansing No No -Bioengineered Tissue No -Bleeding Controlled with Pressure Pressure -Offloading Yes Yes -Treatment Response Procedure Procedure Tolerated Well Tolerated Well Pain Scale: 0-10 Numeric Is Patient Pain Free? Yes Yes Wound debrided: dorsal foot Laterality: Left Type of Debridement: Excisional debridement Anesthesia Used: 5% Lidocaine Gel Depth: in the subcutaneous layer Percentage of wound debrided: 100 Instrument Used: #15 blade Tissue Removed: fibrous, devitalized subcutaneous, biofilm, slough Severity: Fat Layer Exposed Amount of bleeding with debridement: Mild Bleeding Controlled with: Pressure Patient tolerated procedure well - Additional Wound Wound debrided: leg Laterality: Right Type of Debridement: Excisional debridement Anesthesia Used: 5% Lidocaine Gel Depth: in the subcutaneous layer Percentage of wound debrided: 100 Instrument Used: #15 blade Tissue Removed: fibrous, devitalized subcutaneous, biofilm, slough Severity: Fat Layer Exposed Amount of bleeding with debridement: Mild Bleeding Controlled with: Pressure Patient tolerated procedure: Patient tolerated procedure well Assessment/Plan Active Problems (Last Reviewed 08/13/18 @ 10:19 by Fernando Patterson MD) 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 Dorsal left foot ulcer with fat layer exposed, no infection. Paralysis. Bilateral lower extremity edema. Malnutrition Plan: I reviewed his case. No new concerns at this time. Debridement done as documented above, procedure was well-tolerated. Continue Juani daily to left foot and right leg. If any deteriorates or scabbing is noted it is okay for him to apply Santyl which she also has on hand at home. To continue strict offloading. To continue with nutritional supplementation. Ulcer debridement was tolerated well. It is okay to transition to normal shoe gear on the right lower extremity and continue with surgical shoe on the left. He brought his new extra-depth shoes today and he is advised it is okay to start wearing the right one. The extra-depth shoe is well aligned and fits properly in length and width. He was advised on the proper break-in process and to proceed with extreme caution. To monitor for new skin irritation or blister formation. Advised if he has increased edema he should avoid wearing shoes in general until it has resided. He was reassured no signs of infection noted today. To continue Tubigrip for edema management. To return to clinic in 1 week or call sooner if he has any questions or concerns. All his questions were answered.
[2019-07-24 11:12] VITALS: BP 120/69; PULSE 65; RESP 18; TEMP 36.5; BMI 24.3
--- NOTE | 2019-07-24 11:53 | PN.PCM_ITS ---
(1) Chronic ulcer of left foot with fat layer exposed Status: Resolved Current Visit: Yes Code(s): L97.522 - Non-pressure chronic ulcer of other part of left foot with fat layer exposed (2) Ulcer of right lower extremity with fat layer exposed Status: Chronic Current Visit: Yes Code(s): L97.912 - Non-pressure chronic ulcer of unspecified part of right lower leg with fat layer exposed Comment: lateral ankle and also new anterior leg ulcer (3) Paralysis Status: Chronic Current Visit: Yes Code(s): G83.9 - Paralytic syndrome, unspecified (4) Malnutrition Status: Chronic Current Visit: Yes Code(s): E46 - Unspecified protein- calorie malnutrition (5) Delayed wound healing Status: Chronic Current Visit: Yes Code(s): T14.8XXD - Other injury of unspecified body region, subsequent encounter (6) Edema leg Status: Chronic Current Visit: Yes Code(s): R60.0 - Localized edema Type of Wound Date of Service: 07/24/19 Chief Complaint: Left foot ulcer and right leg ulcer History of Wound: Mr Sabillon is an 83-year-old currently being seen in the wound center for lower extremity ulcers. He does not report any redness or new injuries or increased swelling. He denies fever, chill, nausea, vomiting. He denies left foot drainage and thinks that the site may have healed. He relates he offloads the right leg also by placing a pillow directly under the leg and including the ulcer site. Progress of Wound: Healed left foot and improving right leg ulcer - Physical Exam Vital Signs Temp Pulse Resp BP 97.7 F L 65 18 120/69 07/24/19 11:12 07/24/19 11:12 07/24/19 11:12 07/24/19 11:12 General: Alert, Oriented x3, Cooperative, No apparent distress Extremities: No cyanosis, Capillary Refill Less than 3 Seconds, No Calf Tenderness, Diminished Peripheral Pulses, Edema - Controlled bilateral lower extremities, - - Paralysis. He is in a wheelchair Skin: Ulcer/ Wound - No purulence, erythema, streaking, odor, infection. The peripheral skin is hairless and atrophic. There is full epithelialization noted to the dorsal left foot. The right posterior leg ulcer is granular, fibrous, and does have some eschar development. There is no bogginess on palpation Wound Measurements and Assessment WC - Nurse 1 - General Ulcer Measurement Start: 07/03/19 10:50 Freq: Status: Active Protocol: Activity Type Activity Date Activity User E-Sign Co-Sign Detail Recorded Client Recorded Date Recorded By Document 07/24/19 11:12 CAMERON [id number] 07/24/19 11:22 CAMERON 07/24/19 11:12 Wound Center Nurse 1 [Ulcer Assessment] #9 LEFT MEDIAL DORSAL FOOT -Combined with other wound No -Current Size (cm) - Length 0.1 -Current Size (cm) - Width 0.1 -Current Size (cm) - Depth 0.1 -Total Square Cm 0.01 -Photo Taken No -Epithelialization Large 67-100% -Tunneling No -Undermining/Tunneling No -Circular Undermining No -Exudate Amt None Present -Wound Margin Flat & Intact -Granulation Amt None Present (0 %) -Slough/Fibrin Yes -Necrosis Amt Large (67-100%) -Necrotic Tissue Type Adherent Slough -Structure Exposed N/A -Texture (Denisse-wound Skin Appearance) Assessed, Scarring -Moisture (Denisse-wound Skin Appearance Assessed,Dry/ ) Scaly -Color (Denisse-wound Skin Appearance) Assessed -Temperature (Denisse-wound Skin No Abnormality Appearance) (Pt Warm) -Tenderness on Palpation (Denisse-wound No Skin Appearance) -Ulcer Cleansing Rinsed/ Irrigated with Saline -Foul Odor after Cleansing No -Anesthetic Used 4% Lidocaine Solution,5% Lidocaine Gel #7 Lateral RLE -Combined with other wound No -Current Size (cm) - Length 1.8 -Current Size (cm) - Width 0.4 -Current Size (cm) - Depth 0.2 -Total Square Cm 0.72 -Photo Taken No -Epithelialization None Present -Tunneling No -Undermining/Tunneling No -Circular Undermining No -Exudate Amt None Present -Wound Margin Indistinct, Non -Visible -Granulation Amt None Present (0 %) -Slough/Fibrin Yes -Necrosis Amt Large (67-100%) -Necrotic Tissue Type Adherent Slough -Structure Exposed N/A -Texture (Denisse-wound Skin Appearance) Assessed -Moisture (Denisse-wound Skin Appearance Assessed,Dry/ ) Scaly -Color (Denisse-wound Skin Appearance) Assessed -Temperature (Denisse-wound Skin No Abnormality Appearance) (Pt Warm) -Tenderness on Palpation (Denisse-wound No Skin Appearance) -Ulcer Cleansing Rinsed/ Irrigated with Saline -Foul Odor after Cleansing No -Anesthetic Used 5% Lidocaine Gel [Edema Assessment] -Lower Limb Edema Present No WC - Nurse 2 - General Ulcer CM Notes Start: 07/03/19 10:50 Freq: Status: Active Protocol: Activity Type Activity Date Activity User E-Sign Co-Sign Detail Recorded Client Recorded Date Recorded By Document 07/24/19 11:32 AN [id number] 07/24/19 11:36 AN 07/24/19 11:32 Wound Center Nurse 2 [Procedure/Treatment] #7 Lateral RLE -Time 11:34 -Correct Patient Yes -Correct Side, Site, Position Yes -Correct Procedure Yes -Procedure Performed Yes -Type of Procedure Debridement -Clinical Debridement Subcutaneous -Post Debridement Size (cm) - Length 1.9 -Post Debridement Size (cm) - Width 0.5 -Post Debridement Size (cm) - Depth 0.2 -Total Square Cm 0.95 -Wound/Ulcer Outcome Not Healed -Ulcer Cleansing Rinsed/ Irrigated with Saline -Foul Odor after Cleansing No -Bioengineered Tissue No -Bleeding Controlled with Pressure -Offloading Yes -Treatment Response Procedure Tolerated Well [See Physician Procedure note for Specifics] Pain Scale: 0-10 Numeric [Pain] -Is Patient Pain Free? Yes Musculoskeletal: No Tenderness to Palpation of Joints or Extremities, Muscle Wasting Neurological: - - Lack of normal epicritic sensation light touch Psych/Mental Status: Normal Affect, Appropriate Debridement Note Post-Debridement Measurements/Treatment WC - Nurse 2 - General Ulcer CM Notes Start: 07/03/19 10:50 Freq: Status: Active Protocol: Activity Type Activity Date Activity User E-Sign Co-Sign Detail Recorded Client Recorded Date Recorded By Document 07/03/19 11:21 AN [id number] 07/03/19 11:25 AN Document 07/17/19 11:44 AN [id number] 07/17/19 11:46 AN Document 07/24/19 11:32 AN [id number] 07/24/19 11:36 AN 07/03/19 07/17/19 07/24/19 11:21 11:44 11:32 Wound Center Nurse 2 #13 LEFT KNEE -Correct Patient Yes -Correct Side, Site, Position Yes -Correct Procedure Yes -Procedure Performed No -Wound/Ulcer Outcome Not Healed -Ulcer Cleansing Rinsed/ Irrigated with Saline -Foul Odor after Cleansing No -Bioengineered Tissue No -Bleeding Controlled with Pressure -Offloading Yes -Treatment Response Procedure Tolerated Well #9 LEFT MEDIAL DORSAL FOOT -Time 11:22 11:45 -Correct Patient Yes Yes -Correct Side, Site, Position Yes Yes -Correct Procedure Yes Yes -Procedure Performed Yes Yes -Type of Procedure Debridement Debridement -Clinical Debridement Subcutaneous Subcutaneous -Post Debridement Size (cm) - Length 0.4 0.5 -Post Debridement Size (cm) - Width 1.0 0.5 -Post Debridement Size (cm) - Depth 0.1 0.2 -Total Square Cm 0.40 0.25 -Wound/Ulcer Outcome Not Healed Not Healed -Ulcer Cleansing Rinsed/ Rinsed/ Irrigated with Irrigated with Saline Saline -Foul Odor after Cleansing No No -Bioengineered Tissue No No -Bleeding Controlled with Pressure Pressure -Offloading Yes Yes -Treatment Response Procedure Procedure Tolerated Well Tolerated Well #7 Lateral RLE -Time 11: 11:45 11:34 -Correct Patient Yes Yes Yes -Correct Side, Site, Position Yes Yes Yes -Correct Procedure Yes Yes Yes -Procedure Performed Yes Yes Yes -Type of Procedure Debridement Debridement Debridement -Clinical Debridement Subcutaneous Subcutaneous Subcutaneous -Post Debridement Size (cm) - Length 3.3 0.2 1.9 -Post Debridement Size (cm) - Width 0.4 0.2 0.5 -Post Debridement Size (cm) - Depth 0.1 0.1 0.2 -Total Square Cm 1.32 0.04 0.95 -Wound/Ulcer Outcome Not Healed Not Healed Not Healed -Ulcer Cleansing Rinsed/ Rinsed/ Rinsed/ Irrigated with Irrigated with Irrigated with Saline Saline Saline -Foul Odor after Cleansing No No No -Bioengineered Tissue No No -Bleeding Controlled with Pressure Pressure Pressure -Offloading Yes Yes Yes -Treatment Response Procedure Procedure Procedure Tolerated Well Tolerated Well Tolerated Well Pain Scale: 0-10 Numeric Is Patient Pain Free? Yes Yes Yes Wound debrided: leg Laterality: Right Type of Debridement: Excisional debridement Anesthesia Used: 5% Lidocaine Gel Depth: in the subcutaneous layer Percentage of wound debrided: 100 Instrument Used: #15 blade Tissue Removed: fibrous, devitalized subcutaneous tissue, biofilm, slough Severity: Fat Layer Exposed Amount of bleeding with debridement: Mild Bleeding Controlled with: Pressure Patient tolerated procedure well Assessment/Plan Active Problems (Last Reviewed 08/13/18 @ 10:19 by Fernando Patterson MD) Ulcer of right lower extremity with fat layer exposed (Chronic) lateral ankle and also new anterior leg ulcer Paralysis (Chronic) Malnutrition (Chronic) Delayed wound healing (Chronic) Edema leg (Chronic) Assessment: Right leg ulcer with fat layer exposed and eschar, no infection. Dorsal left foot ulcer healed. Paralysis. Bilateral lower extremity edema. Malnutrition Plan: I reviewed his case. No new concerns at this time. It is noted the left foot ulcer has healed and he can discontinue the dressing care to the site. Debridement done as documented above to the right leg, procedure was well- tolerated. Continue / resume use of santyl daily to right leg. To continue strict offloading. We discussed the details of this again today. Do not place anything directly under the wound including pillows as light he was advised. He can do this by placing the pillows around the ulcer site or using a donut pillow. to continue with nutritional supplementation. Ulcer debridement was tolerated well. It is okay to transition to normal shoe gear on the right and left lower extremities and continue with surgical shoe on the left. He brought his new extra-depth shoes today and he is advised it is okay to start wearing the right one. The extra-depth shoe is well aligned and fits properly in length and width. He was advised on the proper break-in process and to proceed with extreme caution. To monitor for new skin irritation or blister formation. Advised if he has increased edema he should avoid wearing shoes in general until it has resided. He was reassured no signs of infection noted today. To co иван Guerrero for edema management. To return to clinic in 1 week or call sooner if he has any questions or concerns. All his questions were answered.
== END 2019-07-27 23:59 ==
LOC: WC 11:00
PROVIDERS: Family Provider Family Medicine; PCP Family Medicine; Referring Provider Podiatrist; Visit Provider Podiatrist
DX: Z13.220 Encounter for screening for lipoid disorders (principal); Z13.1 Encounter for screening for diabetes mellitus; F32.9 Major depressive disorder, single episode, unspecified; R68.89 Other general symptoms and signs; I10 Essential (primary) hypertension; R60.0 Localized edema; L97.812 Non-pressure chronic ulcer of other part of right lower leg with fat layer exposed; G83.9 Paralytic syndrome, unspecified; L97.522 Non-pressure chronic ulcer of other part of left foot with fat layer exposed
CPT/HCPCS: 11042; 36415; 80053; 80061; 84443

== ENCOUNTER 2019-08-14 08:45 | Outpatient (RCR) | payer MEDICARE, OTHER, SELFPAY ==
[2019-07-28 00:32] VITALS: BP 120/69; PULSE 65; RESP 18; TEMP 36.5
[2019-07-31 11:03] VITALS: BP 110/55; PULSE 97; RESP 18; TEMP 36.1; BMI 24.3
--- NOTE | 2019-07-31 12:59 | PN.PCM_ITS ---
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 Comment: lateral ankle and also new anterior leg ulcer (2) Paralysis Status: Chronic Current Visit: Yes Code(s): G83.9 - Paralytic syndrome, unspecified (3) Malnutrition Status: Chronic Current Visit: Yes Code(s): E46 - Unspecified protein- calorie malnutrition (4) Delayed wound healing Status: Chronic Current Visit: Yes Code(s): T14.8XXD - Other injury of unspecified body region, subsequent encounter (5) Edema leg Status: Chronic Current Visit: Yes Code(s): R60.0 - Localized edema Type of Wound Date of Service: 07/31/19 Chief Complaint: right leg ulcer History of Wound: Mr. Sabillon is an 83-year-old currently being seen in the wound center for lower extremity ulcers. He does not report any redness or new injuries or increased swelling. He denies fever, chill, nausea, vomiting. He denies left foot drainage and thinks that the site may have healed. He relates he has improved his offloading technique this past week. He is with his today. Progress of Wound: improving right leg ulcer - Physical Exam Vital Signs Temp Pulse Resp BP 97 F L 97 18 110/55 L 07/31/19 11:03 07/31/19 11:03 07/31/19 11:03 07/31/19 11:03 General: Alert, Oriented x3, Cooperative, No apparent distress Extremities: No cyanosis, Capillary Refill Less than 3 Seconds, No Calf Tenderness, Diminished Peripheral Pulses, Edema - Decreased bilateral lower extremities Skin: Ulcer/ Wound - No purulence, erythema, streaking, odor, infection. Peripheral skin is hairless and atrophic. There is decreased eschar noted to the right lateral leg ulcer site. The skin is very atrophic and hairless bilateral lower extremities Wound Measurements and Assessment WC - Nurse 1 - General Ulcer Measurement Start: 07/31/19 11:02 Freq: Status: Active Protocol: Activity Type Activity Date Activity User E-Sign Co-Sign Detail Recorded Client Recorded Date Recorded By Document 07/31/19 11:03 W[place] [id number] 07/31/19 11:05 MT Document 07/31/19 11:06 W[place] [id number] 07/31/19 11:06 W[place] 07/31/19 07/31/19 11:03 11:06 Wound Center Nurse 1 [Ulcer Assessment] #7 Lateral RLE -Current Size (cm) - Length 0.1 -Current Size (cm) - Width 0.1 -Current Size (cm) - Depth 0.1 -Total Square Cm 0.01 -Texture (Denisse-wound Skin Appearance) Assessed -Moisture (Denisse-wound Skin Appearance Assessed ) -Color (Denisse-wound Skin Appearance) Assessed, Hemosiderin Staining -Temperature (Denisse-wound Skin No Abnormality Appearance) (Pt Warm) -Tenderness on Palpation (Denisse-wound No Skin Appearance) -Ulcer Cleansing Rinsed/ Irrigated with Saline -Foul Odor after Cleansing No -Anesthetic Used 5% Lidocaine Gel [Edema Assessment] -Right Calf (cm) 27 -Right Ankle (cm) 20.5 -Left Calf (cm) 28.6 -Left Ankle (cm) 22 WC - Nurse 2 - General Ulcer CM Notes Start: 07/31/19 11:02 Freq: Status: Active Protocol: Activity Type Activity Date Activity User E-Sign Co-Sign Detail Recorded Client Recorded Date Recorded By Document 07/31/19 11:27 [id number] 07/31/19 11:28 07/31/19 11:27 Wound Center Nurse 2 [Procedure/Treatment] #7 Lateral RLE -Time 11:27 -Correct Patient Yes -Correct Side, Site, Position Yes -Correct Procedure Yes -Procedure Performed Yes -Type of Procedure Debridement -Clinical Debridement Subcutaneous -Post Debridement Size (cm) - Length 0.2 -Post Debridement Size (cm) - Width 0.2 -Post Debridement Size (cm) - Depth 0.1 -Total Square Cm 0.04 -Wound/Ulcer Outcome Not Healed -Ulcer Cleansing Rinsed/ Irrigated with Saline -Foul Odor after Cleansing No -Bioengineered Tissue No -Bleeding Controlled with Pressure -Offloading Yes -Treatment Response Procedure Tolerated Well [See Physician Procedure note for Specifics] Musculoskeletal: No Tenderness to Palpation of Joints or Extremities, Muscle Wasting, - - Compartment soft to palpate bilateral lower extremities Neurological: - - Lack of normal epicritic sensation light touch consistent with neuropathy Psych/Mental Status: Normal Affect, Appropriate Debridement Note Post-Debridement Measurements/Treatment WC - Nurse 2 - General Ulcer CM Notes Start: 07/31/19 11:02 Freq: Status: Active Protocol: Activity Type Activity Date Activity User E-Sign Co-Sign Detail Recorded Client Recorded Date Recorded By Document 07/31/19 11:27 CRISTIANO [id number] 07/31/19 11:28 AN 07/31/19 11:27 Wound Center Nurse 2 #7 Lateral RLE -Time 11:27 -Correct Patient Yes -Correct Side, Site, Position Yes -Correct Procedure Yes -Procedure Performed Yes -Type of Procedure Debridement -Clinical Debridement Subcutaneous -Post Debridement Size (cm) - Length 0.2 -Post Debridement Size (cm) - Width 0.2 -Post Debridement Size (cm) - Depth 0.1 -Total Square Cm 0.04 -Wound/Ulcer Outcome Not Healed -Ulcer Cleansing Rinsed/ Irrigated with Saline -Foul Odor after Cleansing No -Bioengineered Tissue No -Bleeding Controlled with Pressure -Offloading Yes -Treatment Response Procedure Tolerated Well Wound debrided: lateral leg Laterality: Right Type of Debridement: Excisional debridement Anesthesia Used: 5% Lidocaine Gel Depth: in the subcutaneous layer Percentage of wound debrided: 100 Instrument Used: #15 blade Tissue Removed: fibrous, devitalized subcutaneous, biofilm, slough Severity: Fat Layer Exposed Amount of bleeding with debridement: Mild Bleeding Controlled with: Pressure Patient tolerated procedure well Assessment/Plan Active Problems (Last Reviewed 08/13/18 @ 10:19 by Fernando Patterson MD) Ulcer of right lower extremity with fat layer exposed (Chronic) lateral ankle and also new anterior leg ulcer Paralysis (Chronic) Malnutrition (Chronic) Delayed wound healing (Chronic) Edema leg (Chronic) Assessment: Right leg ulcer with fat layer exposed and eschar, no infection. Paralysis. Bilateral lower extremity edema. Malnutrition Plan: I reviewed his case. Debridement done as documented in the clinical nursing panel above to the right leg, procedure was well-tolerated. Continue use of santyl daily to right leg. To continue strict offloading. We discussed the details of this again today. Do not place anything directly under the wound including pillows as light he was advised. He can do this by placing the pillows around the ulcer site or using a donut pillow. to continue with nutritional supplementation. Ulcer debridement was tolerated well. It is okay to transition to normal shoe gear on the right and left lower extremities and continue with surgical shoe on the left. He brought his new extra-depth shoes today and he is advised it is okay to start wearing the right one. The extra- depth shoe is well aligned and fits properly in length and width. He was advised on the proper break-in process and to proceed with extreme caution. To monitor for new skin irritation or blister formation. Advised if he has increased edema he should avoid wearing shoes in general until it has resided. He was reassured no signs of infection noted today. To continue [facility] for edema management. To return to clinic in 1 week or call sooner if he has any questions or concerns. All his questions were answered.
[2019-08-07 11:03] VITALS: BP 122/71; PULSE 59; RESP 18; TEMP 36.6; BMI 24.3
--- NOTE | 2019-08-07 11:38 | PN.PCM_ITS ---
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 Comment: lateral ankle and also new anterior leg ulcer (2) Paralysis Status: Chronic Current Visit: Yes Code(s): G83.9 - Paralytic syndrome, unspecified (3) Malnutrition Status: Chronic Current Visit: Yes Code(s): E46 - Unspecified protein- calorie malnutrition (4) Delayed wound healing Status: Chronic Current Visit: Yes Code(s): T14.8XXD - Other injury of unspecified body region, subsequent encounter (5) Ulcer of left lower extremity with fat layer exposed Status: Chronic Current Visit: Yes Code(s): L97.922 - Non-pressure chronic ulcer of unspecified part of left lower leg with fat layer exposed (6) Edema leg Status: Chronic Current Visit: Yes Code(s): R60.0 - Localized edema Type of Wound Date of Service: 08/07/19 Chief Complaint: right leg ulcer and new left leg ulcer History of Wound: Mr. Sabillon is an 83-year-old currently being seen in the wound center for lower extremity ulcers. He does not report any redness. He denies fever, chill, nausea, vomiting. He relates he has improved his offloading technique this past week. He is with his today. He relates he bumped his legs while he was at the dentist and has some new left leg ulcers and also right leg ulcers. Progress of Wound: Increased size right leg ulcer. New left leg ulcer - Physical Exam Vital Signs Temp Pulse Resp BP 97.8 F 59 L 18 122/71 H 08/07/19 11:03 08/07/19 11:03 08/07/19 11:03 08/07/19 11:03 General: Alert, Oriented x3, Cooperative, No apparent distress Extremities: No cyanosis, Capillary Refill Less than 3 Seconds, No Calf Tenderness - Negative Ayanna and Ortega sign bilateral. Paralysis and wheelchair, Diminished Peripheral Pulses, Edema - Mild to moderate bilateral lower extremities Skin: Ulcer/ Wound - No purulence, erythema, string, odor, infection. The peripheral skin is atrophic and hairless. The cluster of the right lateral leg is increased in size with granular fibrous tissue. He also has a new skin discontinuity to the lateral left leg with no deep tissue or necrosis or maceration noted. He also has a granular base skin discontinuity to the proximal lateral left leg next to the level of the tibial tuberosity Wound Measurements and Assessment WC - Nurse 1 - General Ulcer Measurement Start: 07/31/19 11:02 Freq: Status: Active Protocol: Activity Type Activity Date Activity User E-Sign Co-Sign Detail Recorded Client Recorded Date Recorded By Document 08/07/19 11:03 DL [id number] 08/07/19 11:20 DL 08/07/19 11:03 Wound Center Nurse 1 [Ulcer Assessment] #14 LLat LE -Current Size (cm) - Length 1 -Current Size (cm) - Width 2.5 -Current Size (cm) - Depth 0.1 -Total Square Cm 2.5 -Photo Taken Yes -Exudate Amt Small -Exudate Type Serosanguineous -Wound Margin Distinct, Outline Attached -Granulation Amt Medium (34-66%) -Granulation Quality Red -Necrosis Amt Medium (34-66%) -Necrotic Tissue Type Adherent Slough -Structure Exposed N/A -Texture (Denisse-wound Skin Appearance) Localized Edema ,Scarring -Moisture (Denisse-wound Skin Appearance No Abnormality ) -Color (Denisse-wound Skin Appearance) Ecchymosis, Hemosiderin Staining -Temperature (Denisse-wound Skin No Abnormality Appearance) (Pt Warm) -Tenderness on Palpation (Denisse-wound No Skin Appearance) -Ulcer Cleansing Rinsed/ Irrigated with Saline -Foul Odor after Cleansing No -Anesthetic Used 5% Lidocaine Gel #7 Lateral RLE -Current Size (cm) - Length 7 -Current Size (cm) - Width 0.8 -Current Size (cm) - Depth 0.1 -Total Square Cm 5.6 -Photo Taken No -Exudate Amt Small -Exudate Type Serosanguineous -Wound Margin Distinct, Outline Attached -Granulation Amt Medium (34-66%) -Granulation Quality Red -Necrosis Amt Medium (34-66%) -Necrotic Tissue Type Adherent Slough -Structure Exposed N/A -Texture (Denisse-wound Skin Appearance) Localized Edema ,Scarring -Color (Denisse-wound Skin Appearance) Hemosiderin Staining,Rubor -Temperature (Denisse-wound Skin No Abnormality Appearance) (Pt Warm) -Tenderness on Palpation (Denisse-wound No Skin Appearance) -Ulcer Cleansing Rinsed/ Irrigated with Saline -Foul Odor after Cleansing No -Anesthetic Used 5% Lidocaine Gel [Edema Assessment] -Right Calf (cm) 27.5 -Right Ankle (cm) 21.5 -Left Calf (cm) 28.5 -Left Ankle (cm) 21.7 PHUONG - Nurse 2 - General Ulcer CM Notes Start: 07/31/19 11:02 Freq: Status: Active Protocol: Activity Type Activity Date Activity User E-Sign Co-Sign Detail Recorded Client Recorded Date Recorded By Document 08/07/19 11:25 DL [id number] 08/07/19 11:32 DL 08/07/19 11:25 Wound Center Nurse 2 [Procedure/Treatment] #14 LLat LE -Time 11:30 -Correct Patient Yes -Correct Side, Site, Position Yes -Correct Procedure Yes -Procedure Performed Yes -Type of Procedure Debridement -Clinical Debridement Subcutaneous -Post Debridement Size (cm) - Length 2.6 -Post Debridement Size (cm) - Width 0.1 -Post Debridement Size (cm) - Depth 2.5 -Total Square Cm 0.26 -Wound/Ulcer Outcome Not Healed -Ulcer Cleansing Rinsed/ Irrigated with Saline -Bleeding Controlled with Pressure -Offloading Yes -Treatment Response Procedure Tolerated Well #7 Lateral RLE -Time 11:30 -Correct Patient Yes -Correct Side, Site, Position Yes -Correct Procedure Yes -Procedure Performed Yes -Type of Procedure Debridement -Clinical Debridement Subcutaneous -Post Debridement Size (cm) - Length 7.0 -Post Debridement Size (cm) - Width 0.8 -Post Debridement Size (cm) - Depth 0.1 -Total Square Cm 5.60 -Wound/Ulcer Outcome Not Healed -Ulcer Cleansing Rinsed/ Irrigated with Saline -Foul Odor after Cleansing No -Bioengineered Tissue No -Bleeding Controlled with Pressure -Offloading Yes -Treatment Response Procedure Tolerated Well [See Physician Procedure note for Specifics] Pain Scale: 0-10 Numeric [Pain] -Is Patient Pain Free? Yes Musculoskeletal: No Tenderness to Palpation of Joints or Extremities, Muscle Wasting Neurological: - - Lack of normal epicritic sensation light touch to lower extremities Psych/Mental Status: Normal Affect, Appropriate Debridement Note Post-Debridement Measurements/Treatment PHUONG - Nurse 2 - General Ulcer CM Notes Start: 07/31/19 11:02 Freq: Status: Active Protocol: Activity Type Activity Date Activity User E-Sign Co-Sign Detail Recorded Client Recorded Date Recorded By Document 07/31/19 11:27 AN [id number] 07/31/19 11:28 AN Document 08/07/19 11:25 DL [id number] 08/07/19 11:32 DL 07/31/19 08/07/19 11:27 11:25 Wound Center Nurse 2 #14 LLat LE -Time 11:30 -Correct Patient Yes -Correct Side, Site, Position Yes -Correct Procedure Yes -Procedure Performed Yes -Type of Procedure Debridement -Clinical Debridement Subcutaneous -Post Debridement Size (cm) - Length 2.6 -Post Debridement Size (cm) - Width 0.1 -Post Debridement Size (cm) - Depth 2.5 -Total Square Cm 0.26 -Wound/Ulcer Outcome Not Healed -Ulcer Cleansing Rinsed/ Irrigated with Saline -Bleeding Controlled with Pressure -Offloading Yes -Treatment Response Procedure Tolerated Well #7 Lateral RLE -Time 11:27 11:30 -Correct Patient Yes Yes -Correct Side, Site, Position Yes Yes -Correct Procedure Yes Yes -Procedure Performed Yes Yes -Type of Procedure Debridement Debridement -Clinical Debridement Subcutaneous Subcutaneous -Post Debridement Size (cm) - Length 0.2 7.0 -Post Debridement Size (cm) - Width 0.2 0.8 -Post Debridement Size (cm) - Depth 0.1 0.1 -Total Square Cm 0.04 5.60 -Wound/Ulcer Outcome Not Healed Not Healed -Ulcer Cleansing Rinsed/ Rinsed/ Irrigated with Irrigated with Saline Saline -Foul Odor after Cleansing No No -Bioengineered Tissue No No -Bleeding Controlled with Pressure Pressure -Offloading Yes Yes -Treatment Response Procedure Procedure Tolerated Well Tolerated Well Pain Scale: 0-10 Numeric Is Patient Pain Free? Yes Wound debrided: lateral leg cluster Laterality: Right Type of Debridement: Excisional debridement Anesthesia Used: 5% Lidocaine Gel Depth: in the subcutaneous layer Percentage of wound debrided: 100 Instrument Used: #15 blade Tissue Removed: fibrous, devitalized subcutaneous, biofilm, slough Severity: Fat Layer Exposed Amount of bleeding with debridement: Mild Bleeding Controlled with: Pressure Patient tolerated procedure well - Additional Wound Wound debrided: lateral leg Laterality: Left Type of Debridement: Excisional debridement Anesthesia Used: 5% Lidocaine Gel Depth: in the subcutaneous layer Percentage of wound debrided: 100 Instrument Used: #15 blade Tissue Removed: fibrous, devitalized subcutaneous, biofilm, slough Severity: Fat Layer Exposed Amount of bleeding with debridement: Mild Bleeding Controlled with: Pressure Patient tolerated procedure: Patient tolerated procedure well Assessment/Plan Active Problems (Last Reviewed 08/13/18 @ 10:19 by Fernando Patterson MD) 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 left leg ulcer. Paralysis. Bilateral lower extremity edema. Malnutrition Plan: I reviewed his case. Debridement done as documented in the clinical nursing panel above to the right and left leg, procedure was well-tolerated. Continue use of santyl daily to right and left leg. The new ulcer is noted and this etiology was discussed. No infection was noted. To continue strict offloading. We discussed the details of this again today. Do not place anything directly under the wound including pillows as light he was advised. He can do this by placing the pillows around the ulcer site or using a donut pillow. to continue with nutritional supplementation. Ulcer debridement was tolerated well. It is okay to transition to normal shoe gear on the right and left lower extremities and continue with surgical shoe on the left. He brought his new extra-depth shoes today and he is advised it is okay to start wearing the right one. The extra-depth shoe is well aligned and fits properly in length and width. He was advised on the proper break-in process and to proceed with extreme caution. To monitor for new skin irritation or blister formation. A dvised if he has increased edema he should avoid wearing shoes in general until it has resided. He was reassured no signs of infection noted today. To continue Tubigrip for edema management. To return to clinic in 1 week or call sooner if he has any questions or concerns. All his questions were answered.
[2019-08-14 08:44] VITALS: BP 120/69; PULSE 61; RESP 18; TEMP 36; BMI 24.3
--- NOTE | 2019-08-14 10:37 | PN.PCM_ITS ---
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 Comment: lateral ankle and also new anterior leg ulcer (2) Paralysis Status: Chronic Current Visit: Yes Code(s): G83.9 - Paralytic syndrome, unspecified (3) Malnutrition Status: Chronic Current Visit: Yes Code(s): E46 - Unspecified protein- calorie malnutrition (4) Delayed wound healing Status: Chronic Current Visit: Yes Code(s): T14.8XXD - Other injury of unspecified body region, subsequent encounter (5) Ulcer of left lower extremity with 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 new scab right ankle History of Wound: Mr. Sabillon is an 83-year-old currently being seen in the wound center for lower extremity ulcers. He does not report any redness. He denies fever, chill, nausea, vomiting. He relates he has tried to improve his offloading technique this past week. He is with his today. he wears tubigrips for edema control. Progress of Wound: Increased size right leg ulcer. New right ankle eschar. Stable left leg ulcer - Physical Exam Vital Signs Temp Pulse Resp BP 96.8 F L 61 18 120/69 08/14/19 08:44 08/14/19 08:44 08/14/19 08:44 08/14/19 08:44 General: Alert, Oriented x3, Cooperative, No apparent distress Extremities: No cyanosis, Capillary Refill Less than 3 Seconds, No Calf Tenderness, Diminished Peripheral Pulses, Edema - Mild to moderate bilateral lower extremities, - - Paralysis lower extremities, in wheelchair Skin: Ulcer/ Wound - No purulence, erythema, streaking, odor, infection, or deep tissue exposure noted. There is a new eschar noted to the right lateral ankle which is well adhered. There is no bogginess or fluctuance on palpation bilateral. His skin is hairless and atrophic. Wound Measurements and Assessment WC - Nurse 1 - General Ulcer Measurement Start: 07/31/19 11:02 Freq: Status: Active Protocol: Activity Type Activity Date Activity User E-Sign Co-Sign Detail Recorded Client Recorded Date Recorded By Document 08/14/19 08:44 [id number] 08/14/19 08:53 CAMERON 08/14/19 08:44 Wound Center Nurse 1 [Ulcer Assessment] 15-right lateral ankle -Combined with other wound No -Current Size (cm) - Length 0.5 -Current Size (cm) - Width 1 -Current Size (cm) - Depth 0.1 -Total Square Cm 0.5 -Photo Taken Yes -Epithelialization Small 1-33% -Tunneling No -Undermining/Tunneling No -Circular Undermining No -Classification - Thickness Full Thickness without Exposed Support Structure -Exudate Amt Small -Exudate Type Serosanguineous -Wound Margin Flat & Intact -Granulation Amt Large (67-100%) -Granulation Quality Red -Slough/Fibrin Yes -Necrosis Amt Small (1-33%) -Necrotic Tissue Type Adherent Slough -Structure Exposed N/A -Texture (Denisse-wound Skin Appearance) Assessed, Localized Edema -Moisture (Denisse-wound Skin Appearance Assessed,Dry/ ) Scaly -Color (Denisse-wound Skin Appearance) Assessed -Temperature (Denisse-wound Skin No Abnormality Appearance) (Pt Warm) -Tenderness on Palpation (Denisse-wound No Skin Appearance) -Ulcer Cleansing Rinsed/ Irrigated with Saline -Foul Odor after Cleansing No -Anesthetic Used 4% Lidocaine Solution #14 LLat LE -Combined with other wound No -Current Size (cm) - Length 2.6 -Current Size (cm) - Width 2.0 -Current Size (cm) - Depth 0.1 -Total Square Cm 5.20 -Photo Taken No -Epithelialization Small 1-33% -Tunneling No -Undermining/Tunneling No -Circular Undermining No -Exudate Amt Small -Exudate Type Sanguineous -Wound Margin Flat & Intact -Granulation Amt None Present (0 %) -Slough/Fibrin Yes -Necrosis Amt Large (67-100%) -Necrotic Tissue Type Adherent Slough -Structure Exposed N/A -Texture (Denisse-wound Skin Appearance) Assessed, Localized Edema -Moisture (Denisse-wound Skin Appearance Assessed,Dry/ ) Scaly -Color (Denisse-wound Skin Appearance) Assessed, Hemosiderin Staining -Temperature (Denisse-wound Skin No Abnormality Appearance) (Pt Warm) -Tenderness on Palpation (Denisse-wound No Skin Appearance) -Ulcer Cleansing Rinsed/ Irrigated with Saline -Foul Odor after Cleansing No -Anesthetic Used 5% Lidocaine Gel #7 Lateral RLE -Combined with other wound No -Current Size (cm) - Length 2 -Current Size (cm) - Width 1.6 -Current Size (cm) - Depth 0.1 -Total Square Cm 3.2 -Photo Taken No -Epithelialization None Present -Tunneling No -Undermining/Tunneling No -Circular Undermining No -Exudate Amt Small -Exudate Type Serosanguineous -Wound Margin Indistinct, Non -Visible -Granulation Amt None Present (0 %) -Slough/Fibrin Yes -Necrosis Amt Large (67-100%) -Necrotic Tissue Type Adherent Slough -Structure Exposed N/A -Texture (Denisse-wound Skin Appearance) Assessed, Localized Edema -Moisture (Denisse-wound Skin Appearance Assessed,Dry/ ) Scaly -Color (Denisse-wound Skin Appearance) Assessed, Hemosiderin Staining -Temperature (Denisse-wound Skin No Abnormality Appearance) (Pt Warm) -Tenderness on Palpation (Denisse-wound No Skin Appearance) -Ulcer Cleansing Rinsed/ Irrigated with Saline -Foul Odor after Cleansing No -Anesthetic Used 5% Lidocaine Gel [Edema Assessment] -Lower Limb Edema Present Yes -Right Calf (cm) 26.5 -Right Ankle (cm) 21.1 -Left Calf (cm) 29.3 -Left Ankle (cm) 23.0 WC - Nurse 2 - General Ulcer CM Notes Start: 07/31/19 11:02 Freq: Status: Active Protocol: Activity Type Activity Date Activity User E-Sign Co-Sign Detail Recorded Client Recorded Date Recorded By Document 08/14/19 09:33 AN [id number] 08/14/19 09:37 AN 08/14/19 09:33 Wound Center Nurse 2 [Procedure/Treatment] 15-right lateral ankle -Time 09:34 -Correct Patient Yes -Correct Side, Site, Position Yes -Correct Procedure Yes -Procedure Performed Yes -Type of Procedure Debridement -Clinical Debridement Subcutaneous -Post Debridement Size (cm) - Length 0.6 -Post Debridement Size (cm) - Width 1.1 -Post Debridement Size (cm) - Depth 0.1 -Total Square Cm 0.66 -Wound/Ulcer Outcome Not Healed -Bleeding Controlled with Pressure -Offloading Yes -Treatment Response Procedure Tolerated Well #14 LLat LE -Time 09:35 -Correct Patient Yes -Correct Side, Site, Position Yes -Correct Procedure Yes -Procedure Performed Yes -Type of Procedure Debridement -Clinical Debridement Subcutaneous -Post Debridement Size (cm) - Length 2.7 -Post Debridement Size (cm) - Width 2.1 -Post Debridement Size (cm) - Depth 0.1 -Total Square Cm 5.67 -Wound/Ulcer Outcome Not Healed -Bleeding Controlled with Pressure -Offloading Yes -Treatment Response Procedure Tolerated Well #7 Lateral RLE -Time 09:36 -Correct Patient Yes -Correct Side, Site, Position Yes -Correct Procedure Yes -Procedure Performed Yes -Type of Procedure Debridement -Clinical Debridement Subcutaneous -Post Debridement Size (cm) - Length 2.1 -Post Debridement Size (cm) - Width 1.7 -Post Debridement Size (cm) - Depth 0.1 -Total Square Cm 3.57 -Wound/Ulcer Outcome Not Healed -Bleeding Controlled with Pressure -Offloading Yes -Treatment Response Procedure Tolerated Well [See Physician Procedure note for Specifics] Pain Scale: 0-10 Numeric [Pain] -Is Patient Pain Free? Yes Musculoskeletal: No Tenderness to Palpation of Joints or Extremities, Muscle Wasting Neurological: - - Lack of normal epicritic sensation light touch is noted bilateral lower extremities Psych/Mental Status: Normal Affect, Appropriate Debridement Note Post-Debridement Measurements/Treatment WC - Nurse 2 - General Ulcer CM Notes Start: 07/31/19 11:02 Freq: Status: Active Protocol: Activity Type Activity Date Activity User E-Sign Co-Sign Detail Recorded Client Recorded Date Recorded By Document 07/31/19 11:27 AN [id number] 07/31/19 11:28 AN Document 08/07/19 11:25 DL [id number] 08/07/19 11:32 DL Document 08/14/19 09:33 AN [id number] 08/14/19 09:37 AN 07/31/19 08/07/19 08/14/19 11:27 11:25 09:33 Wound Center Nurse 2 15-right lateral ankle -Time 09:34 -Correct Patient Yes -Correct Side, Site, Position Yes -Correct Procedure Yes -Procedure Performed Yes -Type of Procedure Debridement -Clinical Debridement Subcutaneous -Post Debridement Size (cm) - Length 0.6 -Post Debridement Size (cm) - Width 1.1 -Post Debridement Size (cm) - Depth 0.1 -Total Square Cm 0.66 -Wound/Ulcer Outcome Not Healed -Bleeding Controlled with Pressure -Offloading Yes -Treatment Response Procedure Tolerated Well #14 LLat LE -Time 11:30 09:35 -Correct Patient Yes Yes -Correct Side, Site, Position Yes Yes -Correct Procedure Yes Yes -Procedure Performed Yes Yes -Type of Procedure Debridement Debridement -Clinical Debridement Subcutaneous Subcutaneous -Post Debridement Size (cm) - Length 2.6 2.7 -Post Debridement Size (cm) - Width 0.1 2.1 -Post Debridement Size (cm) - Depth 2.5 0.1 -Total Square Cm 0.26 5.67 -Wound/Ulcer Outcome Not Healed Not Healed -Ulcer Cleansing Rinsed/ Irrigated with Saline -Bleeding Controlled with Pressure Pressure -Offloading Yes Yes -Treatment Response Procedure Procedure Tolerated Well Tolerated Well #7 Lateral RLE -Time 11:27 11:30 09:36 -Correct Patient Yes Yes Yes -Correct Side, Site, Position Yes Yes Yes -Correct Procedure Yes Yes Yes -Procedure Performed Yes Yes Yes -Type of Procedure Debridement Debridement Debridement -Clinical Debridement Subcutaneous Subcutaneous Subcutaneous -Post Debridement Size (cm) - Length 0.2 7.0 2.1 -Post Debridement Size (cm) - Width 0.2 0.8 1.7 -Post Debridement Size (cm) - Depth 0.1 0.1 0.1 -Total Square Cm 0.04 5.60 3.57 -Wound/Ulcer Outcome Not Healed Not Healed Not Healed -Ulcer Cleansing Rinsed/ Rinsed/ Irrigated with Irrigated with Saline Saline -Foul Odor after Cleansing No No -Bioengineered Tissue No No -Bleeding Controlled with Pressure Pressure Pressure -Offloading Yes Yes Yes -Treatment Response Procedure Procedure Procedure Tolerated Well Tolerated Well Tolerated Well Pain Scale: 0-10 Numeric Is Patient Pain Free? Yes Yes Wound debrided: lateral ankle Laterality: Right Type of Debridement: Selective debridement Anesthesia Used: 5% Lidocaine Gel Depth: Down to and including healthy tissue Percentage of wound debrided: 100 Instrument Used: #15 blade Tissue Removed: fibrous, devitalized tissue, biofilm, slough Severity: Limited To Skin Breakdown Amount of bleeding with debridement: Mild Bleeding Controlled with: Pressure Patient tolerated procedure well - Additional Wound Wound debrided: lateral leg Laterality: Right Type of Debridement: Excisional debridement Anesthesia Used: 5% Lidocaine Gel Depth: Down to and including healthy tissue Percentage of wound debrided: 100 Instrument Used: #15 blade Tissue Removed: fibrous, devitalized tissue, biofilm, slough Severity: Limited To Skin Breakdown Amount of bleeding with debridement: Mild Bleeding Controlled with: Pressure Patient tolerated procedure: Patient tolerated procedure well - Additional Wound Wound debrided: lateral leg Laterality: Left Type of Debridement: Excisional debridement Anesthesia Used: 5% Lidocaine Gel Depth: Down to and including healthy tissue Percentage of wound debrided: 100 Instrument Used: #15 blade Tissue Removed: fibrous, devitalized tissue, biofilm, slough Severity: Limited To Skin Breakdown Amount of bleeding with debridement: Mild Bleeding Controlled with: Pressure Patient tolerated procedure: Patient tolerated procedure well Assessment/Plan Active Problems (Last Reviewed 08/13/18 @ 10:19 by Fernando Patterson MD) Ulcer of left lower extremity with fat layer exposed (Chronic) Eschar of lower leg (Acute) Ulcer of right lower extremity with fat layer exposed (Chronic) lateral ankle and also new anterior leg ulcer Paralysis (Chronic) Malnutrition (Chronic) Delayed wound healing (Chronic) Edema leg (Chronic) Assessment: Right leg ulcer with fat layer exposed and eschar, no infection. left leg ulcer, stable no infection, No infection. Right leg eschar at ankle level. Paralysis. Bilateral lower extremity edema. Malnutrition Plan: I reviewed his case. Debridement done as documented in the clinical nursing panel above to the right and left leg, procedure was well-tolerated. Continue use of santyl daily to right and left leg including the new eschar site. The new ulcer is noted and this etiology was discussed. No infection was noted. To continue strict offloading. We discussed the details of this again today. Do not place anything directly under the wound including pillows as light he was advised. He can do this by placing the pillows around the ulcer site or using a donut pillow. to continue with nutritional supplementation. Ulcer debridement was tolerated well. It is okay to transition to normal shoe gear on the right and left lower extremities and continue with surgical shoe on the left. He brought his new extra-depth shoes today and he is advised it is okay to start wearing the right one. The extra-depth shoe is well aligned and fits properly in length and width. He was advised on the proper break-in process and to proceed with extreme caution. To monitor for new skin irritation or blister formation. Advised if he has increased edema he should avoid wearing shoes in general until it has resided. He was reassured no signs of infection noted today. To continue Tubigrip for edema management. To return to clinic in 1 week or call sooner if he has any questions or concerns. All his questions were answered.
== END 2019-08-26 23:59 ==
LOC: WC 08:45
PROVIDERS: Family Provider Family Medicine; PCP Family Medicine; Referring Provider Podiatrist; Visit Provider Podiatrist
DX: Z13.220 Encounter for screening for lipoid disorders (principal); Z13.1 Encounter for screening for diabetes mellitus; F32.9 Major depressive disorder, single episode, unspecified; R68.89 Other general symptoms and signs; I10 Essential (primary) hypertension; R60.0 Localized edema; L97.812 Non-pressure chronic ulcer of other part of right lower leg with fat layer exposed; G83.9 Paralytic syndrome, unspecified; L97.822 Non-pressure chronic ulcer of other part of left lower leg with fat layer exposed; L97.311 Non-pressure chronic ulcer of right ankle limited to breakdown of skin; L97.811 Non-pressure chronic ulcer of other part of right lower leg limited to breakdown of skin; L97.821 Non-pressure chronic ulcer of other part of left lower leg limited to breakdown of skin
CPT/HCPCS: 11042; 97597

== ENCOUNTER 2019-09-25 11:00 | Outpatient (RCR) | payer MEDICARE, OTHER, SELFPAY ==
[2019-08-27 00:35] VITALS: BP 120/69; PULSE 61; RESP 18; TEMP 36
[2019-08-28 11:15] VITALS: BP 157/86; PULSE 59; RESP 16; TEMP 36.1; BMI 24.3
--- NOTE | 2019-08-28 12:12 | PN.PCM_ITS ---
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 right ankle ulcer History of Wound: Mr. Sabillon is an 83-year-old currently being seen in the wound center for lower extremity ulcers. He does not report any redness. He denies fever, chill, nausea, vomiting. He is with his today. he wears tubigrips for edema control. Progress of Wound: Improving - Physical Exam Vital Signs Temp Pulse Resp BP 96.9 F L 59 L 16 157/86 H 08/28/19 11:15 08/28/19 11:15 08/28/19 11:15 08/28/19 11:15 General: Alert, Oriented x3, Cooperative, No apparent distress Extremities: No cyanosis, Capillary Refill Less than 3 Seconds, No Calf Tenderness - Negative Ortega sign bilateral. Bilateral lower extremity paralysis is noted. Wheelchair use noted, Diminished Peripheral Pulses, Edema - Decreased bilateral lower extremities Skin: Ulcer/ Wound - No purulence, erythema, string, odor, infection. Tissue quality has improved. There is only minimal eschar noted to the right lateral ankle ulcer site to the other ulcer sites. The skin is hairless and atrophic bilateral lower extremities Wound Measurements and Assessment WC - Nurse 1 - General Ulcer Measurement Start: 08/28/19 11:15 Freq: Status: Active Protocol: Activity Type Activity Date Activity User E-Sign Co-Sign Detail Recorded Client Recorded Date Recorded By Document 08/28/19 11:15 [facility] [id number] 08/28/19 11:30 [facility] 08/28/19 11:15 Wound Center Nurse 1 [Ulcer Assessment] 15-right lateral ankle -Combined with other wound No -Current Size (cm) - Length 1.8 -Current Size (cm) - Width 1.6 -Current Size (cm) - Depth 0.1 -Total Square Cm 2.88 -Photo Taken No -Epithelialization None Present -Tunneling No -Undermining/Tunneling No -Circular Undermining No -Exudate Amt Medium -Exudate Type Serosanguineous -Wound Margin Distinct, Outline Attached -Granulation Amt None Present (0 %) -Slough/Fibrin Yes -Necrosis Amt Large (67-100%) -Necrotic Tissue Type Adherent Slough -Texture (Denisse-wound Skin Appearance) Assessed, Scarring -Moisture (Denisse-wound Skin Appearance Assessed,Dry/ ) Scaly -Color (Denisse-wound Skin Appearance) Assessed, Erythema, Hemosiderin Staining -Temperature (Denisse-wound Skin No Abnormality Appearance) (Pt Warm) -Tenderness on Palpation (Denisse-wound No Skin Appearance) -Ulcer Cleansing Rinsed/ Irrigated with Saline -Foul Odor after Cleansing No -Anesthetic Used 4% Lidocaine Solution #14 LLat LE -Combined with other wound No -Current Size (cm) - Length 2.7 -Current Size (cm) - Width 1.8 -Current Size (cm) - Depth 0.1 -Total Square Cm 4.86 -Photo Taken No -Epithelialization None Present -Tunneling No -Undermining/Tunneling No -Circular Undermining No -Exudate Amt Medium -Exudate Type Serosanguineous -Wound Margin Distinct, Outline Attached -Granulation Amt Small (1-33%) -Granulation Quality Red -Slough/Fibrin Yes -Necrosis Amt Large (67-100%) -Necrotic Tissue Type Adherent Slough -Texture (Denisse-wound Skin Appearance) Assessed, Scarring -Moisture (Denisse-wound Skin Appearance Assessed,Dry/ ) Scaly -Color (Denisse-wound Skin Appearance) Assessed, Erythema, Hemosiderin Staining -Temperature (Denisse-wound Skin No Abnormality Appearance) (Pt Warm) -Tenderness on Palpation (Denisse-wound No Skin Appearance) -Ulcer Cleansing Rinsed/ Irrigated with Saline -Foul Odor after Cleansing No -Anesthetic Used 4% Lidocaine Solution #7 Lateral RLE -Combined with other wound No -Current Size (cm) - Length 9.8 -Current Size (cm) - Width 2.3 -Current Size (cm) - Depth 0.1 -Total Square Cm 22.54 -Photo Taken No -Epithelialization None Present -Tunneling No -Undermining/Tunneling No -Circular Undermining No -Exudate Amt Medium -Exudate Type Serosanguineous -Wound Margin Flat & Intact -Granulation Amt Medium (34-66%) -Granulation Quality Red -Slough/Fibrin Yes -Necrosis Amt Medium (34-66%) -Necrotic Tissue Type Adherent Slough -Texture (Denisse-wound Skin Appearance) Assessed, Scarring -Moisture (Denisse-wound Skin Appearance Assessed,Dry/ ) Scaly -Color (Denisse-wound Skin Appearance) Assessed, Erythema, Hemosiderin Staining -Temperature (Denisse-wound Skin No Abnormality Appearance) (Pt Warm) -Tenderness on Palpation (Denisse-wound No Skin Appearance) -Ulcer Cleansing Rinsed/ Irrigated with Saline -Foul Odor after Cleansing No -Anesthetic Used 4% Lidocaine Solution [Edema Assessment] -Lower Limb Edema Present Yes -Right Calf (cm) 26.5 -Right Ankle (cm) 21.2 -Left Calf (cm) 28.8 -Left Ankle (cm) 22.1 WC - Nurse 2 - General Ulcer CM Notes Start: 08/28/19 11:15 Freq: Status: Active Protocol: Activity Type Activity Date Activity User E-Sign Co-Sign Detail Recorded Client Recorded Date Recorded By Document 08/28/19 11:56 AN [id number] 08/28/19 12:00 AN 08/28/19 11:56 Wound Center Nurse 2 [Procedure/Treatment] 15-right lateral ankle -Time 11:58 -Correct Patient Yes -Correct Side, Site, Position Yes -Correct Procedure Yes -Procedure Performed Yes -Type of Procedure Debridement -Clinical Debridement Subcutaneous -Post Debridement Size (cm) - Length 1.9 -Post Debridement Size (cm) - Width 1.7 -Post Debridement Size (cm) - Depth 0.1 -Total Square Cm 3.23 -Wound/Ulcer Outcome Not Healed -Ulcer Cleansing Rinsed/ Irrigated with Saline -Bleeding Controlled with Pressure -Offloading Yes -Treatment Response Procedure Tolerated Well #14 LLat LE -Time 11:58 -Correct Patient Yes -Correct Side, Site, Position Yes -Correct Procedure Yes -Procedure Performed Yes -Type of Procedure Debridement -Clinical Debridement Subcutaneous -Post Debridement Size (cm) - Length 2.8 -Post Debridement Size (cm) - Width 1.9 -Post Debridement Size (cm) - Depth 0.1 -Total Square Cm 5.32 -Wound/Ulcer Outcome Not Healed -Ulcer Cleansing Rinsed/ Irrigated with Saline -Offloading Yes -Treatment Response Procedure Tolerated Well #7 Lateral RLE -Time 11:59 -Correct Patient Yes -Correct Side, Site, Position Yes -Correct Procedure Yes -Procedure Performed Yes -Type of Procedure Debridement -Clinical Debridement Subcutaneous -Post Debridement Size (cm) - Length 9.9 -Post Debridement Size (cm) - Width 2.4 -Post Debridement Size (cm) - Depth 0.1 -Total Square Cm 23.76 -Wound/Ulcer Outcome Not Healed -Bleeding Controlled with Pressure -Offloading Yes -Treatment Response Procedure Tolerated Well [See Physician Procedure note for Specifics] Pain Scale: 0-10 Numeric [Pain] -Is Patient Pain Free? Yes Musculoskeletal: No Tenderness to Palpation of Joints or Extremities, Muscle Wasting Neurological: - - Lack of normal epicritic sensation light touch bilateral lower extremities Psych/Mental Status: Normal Affect, Appropriate Debridement Note Post-Debridement Measurements/Treatment WC - Nurse 2 - General Ulcer CM Notes Start: 08/28/19 11:15 Freq: Status: Active Protocol: Activity Type Activity Date Activity User E-Sign Co-Sign Detail Recorded Client Recorded Date Recorded By Document 08/28/19 11:56 AN [id number] 08/28/19 12:00 AN 08/28/19 11:56 Wound Center Nurse 2 15-right lateral ankle -Time 11:58 -Correct Patient Yes -Correct Side, Site, Position Yes -Correct Procedure Yes -Procedure Performed Yes -Type of Procedure Debridement -Clinical Debridement Subcutaneous -Post Debridement Size (cm) - Length 1.9 -Post Debridement Size (cm) - Width 1.7 -Post Debridement Size (cm) - Depth 0.1 -Total Square Cm 3.23 -Wound/Ulcer Outcome Not Healed -Ulcer Cleansing Rinsed/ Irrigated with Saline -Bleeding Controlled with Pressure -Offloading Yes -Treatment Response Procedure Tolerated Well #14 LLat LE -Time 11:58 -Correct Patient Yes -Correct Side, Site, Position Yes -Correct Procedure Yes -Procedure Performed Yes -Type of Procedure Debridement -Clinical Debridement Subcutaneous -Post Debridement Size (cm) - Length 2.8 -Post Debridement Size (cm) - Width 1.9 -Post Debridement Size (cm) - Depth 0.1 -Total Square Cm 5.32 -Wound/Ulcer Outcome Not Healed -Ulcer Cleansing Rinsed/ Irrigated with Saline -Offloading Yes -Treatment Response Procedure Tolerated Well #7 Lateral RLE -Time 11:59 -Correct Patient Yes -Correct Side, Site, Position Yes -Correct Procedure Yes -Procedure Performed Yes -Type of Procedure Debridement -Clinical Debridement Subcutaneous -Post Debridement Size (cm) - Length 9.9 -Post Debridement Size (cm) - Width 2.4 -Post Debridement Size (cm) - Depth 0.1 -Total Square Cm 23.76 -Wound/Ulcer Outcome Not Healed -Bleeding Controlled with Pressure -Offloading Yes -Treatment Response Procedure Tolerated Well Pain Scale: 0-10 Numeric Is Patient Pain Free? Yes Wound debrided: lateral ankle Laterality: Right Type of Debridement: Excisional debridement Anesthesia Used: 5% Lidocaine Gel Depth: in the subcutaneous layer Percentage of wound debrided: 100 Instrument Used: #15 blade Tissue Removed: fibrous, devitalized subcutaneous, biofilm, slough Severity: Fat Layer Exposed Amount of bleeding with debridement: Mild Bleeding Controlled with: Pressure Patient tolerated procedure well - Additional Wound Wound debrided: lateral leg cluster Laterality: Right Type of Debridement: Excisional debridement Anesthesia Used: 5% Lidocaine Gel Depth: in the subcutaneous layer Percentage of wound debrided: 100 Instrument Used: #15 blade Tissue Removed: fibrous, devitalized subcutaneous, biofilm, slough Severity: Fat Layer Exposed Amount of bleeding with debridement: Mild Bleeding Controlled with: Pressure Patient tolerated procedure: Patient tolerated procedure well - Additional Wound Wound debrided: posterior lateral leg Laterality: Left Type of Debridement: Excisional debridement Anesthesia Used: 5% Lidocaine Gel Depth: in the subcutaneous layer Percentage of wound debrided: 100 Instrument Used: #15 blade Tissue Removed: fibrous, devitalized subcutaneous, biofilm, slough Severity: Fat Layer Exposed Amount of bleeding with debridement: Mild Bleeding Controlled with: Pressure Patient tolerated procedure: Patient tolerated procedure well Assessment/Plan Assessment: Right leg ulcer with fat layer exposed and eschar, no infection. left leg ulcer, stable no infection, No infection. Right leg eschar at ankle level, no infection. Paralysis. Bilateral lower extremity edema. Malnutrition Plan: I reviewed his case. Debridement done as documented in the clinical nursing panel above to the right and left legs and right ankle. This procedure was well-tolerated. Continue use of santyl daily to right ankle site and to apply Aquacel Ag to the other ulcer sites. No infection was noted. To continue strict offloading. We discussed the details of this again today. Do not place anything directly under the wound including pillows as light he was advised. He can do this by placing the pillows around the ulcer site or using a donut pillow. to continue with nutritional supplementation. Ulcer debridement was tolerated well. It is okay to transition to normal shoe gear on the right and left lower extremities and continue with surgical shoe on the left. He brought his new extra-depth shoes today and he is advised it is okay to start wearing the right one. The extra-depth shoe is well aligned and fits properly in length and width. He was advised on the proper break-in process and to proceed with extreme caution. To monitor for new skin irritation or blister formation. Advised if he has increased edema he should avoid wearing shoes in general until it has resided. He was reassured no signs of infection noted today. To continue Tubigrip for edema management. To return to clinic in 1 week or call sooner if he has any questions or concerns. All his questions were answered.
[2019-09-04 11:13] VITALS: BP 137/86; PULSE 63; RESP 18; TEMP 36.8; BMI 24.3
--- NOTE | 2019-09-04 13:05 | PCM.WC.PN ---
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 Comment: lateral ankle and also new anterior leg ulcer (3) Paralysis Status: Chronic Current Visit: Yes Code(s): G83.9 - Paralytic syndrome, unspecified (4) Malnutrition Status: Chronic Current Visit: Yes Code(s): E46 - Unspecified protein-calorie malnutrition (5) Delayed wound healing Status: Chronic Current Visit: Yes Code(s): T14.8XXD - Other injury of unspecified body region, subsequent encounter (6) Edema leg Status: Chronic Current Visit: Yes Code(s): R60.0 - Localized edema Type of Wound Date of Service: 09/04/19 Chief Complaint: right leg ulcer and left leg ulcers. right ankle ulcer History of Wound: Mr. Sabillon is an 83-year-old currently being seen in the wound center for lower extremity ulcers. He does not report any redness. He denies fever, chill, nausea, vomiting. He is with his today. he wears tubigrips for edema control. He uses Santyl on the fibrous wounds and eschar, and Juani to the more granular ulcers. Progress of Wound: Improving - Physical Exam Vital Signs Temp Pulse Resp BP 98.2 F 63 18 137/86 H 09/04/19 11:13 09/04/19 11:13 09/04/19 11:13 09/04/19 11:13 General: Alert, Oriented x3, Cooperative Extremities: No cyanosis, Capillary Refill Less than 3 Seconds, No Calf Tenderness - Negative Ayanna and Ortega sign bilateral. Paralysis bilateral. Wheelchair noted, Diminished Peripheral Pulses, Edema - Minimal bilateral lower extreme knees Skin: Ulcer/ Wound - No purulence, erythema, string, odor, infection. Quality ulcer base has improved. No exposed bone, necrosis, or tunneling bilateral Wound Measurements and Assessment WC - Nurse 1 - General Ulcer Measurement Start: 08/28/19 11:15 Freq: Status: Active Protocol: Activity Type Activity Date Activity User E-Sign Co-Sign Detail Recorded Client Recorded Date Recorded By Document 09/04/19 11:13 CAMERON [id number] 09/04/19 11:26 CAMERON 09/04/19 11:13 Wound Center Nurse 1 [Ulcer Assessment] 15-right lateral ankle -Combined with other wound No -Current Size (cm) - Length 1.5 -Current Size (cm) - Width 1.8 -Current Size (cm) - Depth 0.2 -Total Square Cm 2.70 -Photo Taken No -Epithelialization Small 1-33% -Tunneling No -Undermining/Tunneling No -Circular Undermining No -Exudate Amt Small -Exudate Type Serosanguineous -Wound Margin Flat & Intact -Granulation Amt Small (1-33%) -Granulation Quality [place] -Slough/Fibrin Yes -Necrosis Amt Large (67-100%) -Necrotic Tissue Type Adherent Slough -Structure Exposed N/A -Texture (Denisse-wound Skin Appearance) Assessed,Rash -Moisture (Denisse-wound Skin Appearance Assessed,Dry/ ) Scaly -Color (Denisse-wound Skin Appearance) Assessed -Temperature (Denisse-wound Skin No Abnormality Appearance) (Pt Warm) -Tenderness on Palpation (Denisse-wound No Skin Appearance) -Ulcer Cleansing Rinsed/ Irrigated with Saline -Foul Odor after Cleansing No -Anesthetic Used 4% Lidocaine Solution #14 LLat LE -Combined with other wound No -Current Size (cm) - Length 2.0 -Current Size (cm) - Width 1.7 -Current Size (cm) - Depth 0.2 -Total Square Cm 3.40 -Photo Taken No -Epithelialization Small 1-33% -Tunneling No -Undermining/Tunneling No -Circular Undermining No -Exudate Amt Medium -Exudate Type Serosanguineous -Wound Margin Flat & Intact -Granulation Amt Small (1-33%) -Granulation Quality [place] -Slough/Fibrin Yes -Necrosis Amt Large (67-100%) -Necrotic Tissue Type Adherent Slough -Structure Exposed N/A -Texture (Denisse-wound Skin Appearance) Assessed, Scarring -Moisture (Denisse-wound Skin Appearance Assessed,Dry/ ) Scaly -Color (Denisse-wound Skin Appearance) Assessed -Temperature (Denisse-wound Skin No Abnormality Appearance) (Pt Warm) -Tenderness on Palpation (Denisse-wound No Skin Appearance) -Ulcer Cleansing Rinsed/ Irrigated with Saline -Foul Odor after Cleansing No -Anesthetic Used 4% Lidocaine Solution #7 Lateral RLE -Combined with other wound No -Current Size (cm) - Length 2.8 -Current Size (cm) - Width 0.8 -Current Size (cm) - Depth 0.2 -Total Square Cm 2.24 -Photo Taken No -Epithelialization Large 67-100% -Tunneling No -Undermining/Tunneling No -Circular Undermining No -Exudate Amt Small -Exudate Type Serosanguineous -Wound Margin Flat & Intact -Granulation Amt Large (67-100%) -Granulation Quality Red -Slough/Fibrin Yes -Necrosis Amt Small (1-33%) -Necrotic Tissue Type Adherent Slough -Structure Exposed N/A -Texture (Denisse-wound Skin Appearance) Assessed, Localized Edema -Moisture (Denisse-wound Skin Appearance Assessed,Dry/ ) Scaly -Color (Denisse-wound Skin Appearance) Assessed -Temperature (Denisse-wound Skin No Abnormality Appearance) (Pt Warm) -Tenderness on Palpation (Denisse-wound No Skin Appearance) -Ulcer Cleansing Rinsed/ Irrigated with Saline -Foul Odor after Cleansing No -Anesthetic Used 4% Lidocaine Solution [Edema Assessment] -Lower Limb Edema Present Yes -Right Calf (cm) 26.5 -Right Ankle (cm) 20.7 -Left Calf (cm) 28 -Left Ankle (cm) 22.0 WC - Nurse 2 - General Ulcer CM Notes Start: 08/28/19 11:15 Freq: Status: Active Protocol: Activity Type Activity Date Activity User E-Sign Co-Sign Detail Recorded Client Recorded Date Recorded By Document 09/04/19 11:40 AN [id number] 09/04/19 11:42 AN 09/04/19 11:40 Wound Center Nurse 2 [Procedure/Treatment] 15-right lateral ankle -Time 11:41 -Correct Patient Yes -Correct Side, Site, Position Yes -Correct Procedure Yes -Procedure Performed Yes -Type of Procedure Debridement -Clinical Debridement Subcutaneous -Post Debridement Size (cm) - Length 1.6 -Post Debridement Size (cm) - Width 1.9 -Post Debridement Size (cm) - Depth 0.2 -Total Square Cm 3.04 -Wound/Ulcer Outcome Not Healed -Ulcer Cleansing Rinsed/ Irrigated with Saline -Foul Odor after Cleansing No -Bleeding Controlled with Pressure -Offloading Yes -Treatment Response Procedure Tolerated Well #14 LLat LE -Time 11:41 -Correct Patient Yes -Correct Side, Site, Position Yes -Correct Procedure Yes -Procedure Performed Yes -Type of Procedure Debridement -Clinical Debridement Subcutaneous -Post Debridement Size (cm) - Length 2.1 -Post Debridement Size (cm) - Width 1.8 -Post Debridement Size (cm) - Depth 0.2 -Total Square Cm 3.78 -Wound/Ulcer Outcome Not Healed -Ulcer Cleansing Rinsed/ Irrigated with Saline -Foul Odor after Cleansing No -Bioengineered Tissue No -Bleeding Controlled with Pressure -Offloading Yes -Treatment Response Procedure Tolerated Well #7 Lateral RLE -Time 11:41 -Correct Patient Yes -Correct Side, Site, Position Yes -Correct Procedure Yes -Procedure Performed Yes -Type of Procedure Debridement -Clinical Debridement Subcutaneous -Post Debridement Size (cm) - Length 2.9 -Post Debridement Size (cm) - Width 0.9 -Post Debridement Size (cm) - Depth 0.2 -Total Square Cm 2.61 -Wound/Ulcer Outcome Not Healed -Ulcer Cleansing Rinsed/ Irrigated with Saline -Foul Odor after Cleansing No -Bioengineered Tissue No -Bleeding Controlled with Pressure -Offloading Yes -Treatment Response Procedure Tolerated Well [See Physician Procedure note for Specifics] Pain Scale: 0-10 Numeric [Pain] -Is Patient Pain Free? Yes Musculoskeletal: No Tenderness to Palpation of Joints or Extremities, Muscle Wasting, - - Compartment soft to palpate bilateral Neurological: - - Lack of normal epicritic sensation light touch Psych/Mental Status: Normal Affect, Appropriate Debridement Note Post-Debridement Measurements/Treatment WC - Nurse 2 - General Ulcer CM Notes Start: 08/28/19 11:15 Freq: Status: Active Protocol: Activity Type Activity Date Activity User E-Sign Co-Sign Detail Recorded Client Recorded Date Recorded By Document 08/28/19 11:56 AN [id number] 08/28/19 12:00 AN Document 09/04/19 11:40 AN [id number] 09/04/19 11:42 AN 08/28/19 09/04/19 11:56 11:40 Wound Center Nurse 2 15-right lateral ankle -Time 11:58 11:41 -Correct Patient Yes Yes -Correct Side, Site, Position Yes Yes -Correct Procedure Yes Yes -Procedure Performed Yes Yes -Type of Procedure Debridement Debridement -Clinical Debridement Subcutaneous Subcutaneous -Post Debridement Size (cm) - Length 1.9 1.6 -Post Debridement Size (cm) - Width 1.7 1.9 -Post Debridement Size (cm) - Depth 0.1 0.2 -Total Square Cm 3.23 3.04 -Wound/Ulcer Outcome Not Healed Not Healed -Ulcer Cleansing Rinsed/ Rinsed/ Irrigated with Irrigated with Saline Saline -Foul Odor after Cleansing No -Bleeding Controlled with Pressure Pressure -Offloading Yes Yes -Treatment Response Procedure Procedure Tolerated Well Tolerated Well #14 LLat LE -Time 11:58 11:41 -Correct Patient Yes Yes -Correct Side, Site, Position Yes Yes -Correct Procedure Yes Yes -Procedure Performed Yes Yes -Type of Procedure Debridement Debridement -Clinical Debridement Subcutaneous Subcutaneous -Post Debridement Size (cm) - Length 2.8 2.1 -Post Debridement Size (cm) - Width 1.9 1.8 -Post Debridement Size (cm) - Depth 0.1 0.2 -Total Square Cm 5.32 3.78 -Wound/Ulcer Outcome Not Healed Not Healed -Ulcer Cleansing Rinsed/ Rinsed/ Irrigated with Irrigated with Saline Saline -Foul Odor after Cleansing No -Bioengineered Tissue No -Bleeding Controlled with Pressure -Offloading Yes Yes -Treatment Response Procedure Procedure Tolerated Well Tolerated Well #7 Lateral RLE -Time 11:59 11:41 -Correct Patient Yes Yes -Correct Side, Site, Position Yes Yes -Correct Procedure Yes Yes -Procedure Performed Yes Yes -Type of Procedure Debridement Debridement -Clinical Debridement Subcutaneous Subcutaneous -Post Debridement Size (cm) - Length 9.9 2.9 -Post Debridement Size (cm) - Width 2.4 0.9 -Post Debridement Size (cm) - Depth 0.1 0.2 -Total Square Cm 23.76 2.61 -Wound/Ulcer Outcome Not Healed Not Healed -Ulcer Cleansing Rinsed/ Irrigated with Saline -Foul Odor after Cleansing No -Bioengineered Tissue No -Bleeding Controlled with Pressure Pressure -Offloading Yes Yes -Treatment Response Procedure Procedure Tolerated Well Tolerated Well Pain Scale: 0-10 Numeric Is Patient Pain Free? Yes Yes Wound debrided: lateral leg Laterality: Left Type of Debridement: Excisional debridement Anesthesia Used: 5% Lidocaine Gel Depth: in the subcutaneous layer Percentage of wound debrided: 100 Instrument Used: #15 blade Tissue Removed: fibrous, devitalized subcutaneous, biofiom, slough Severity: Fat Layer Exposed Amount of bleeding with debridement: Mild Bleeding Controlled with: Pressure Patient tolerated procedure well - Additional Wound Wound debrided: lateral ankle Laterality: Right Type of Debridement: Excisional debridement Anesthesia Used: 5% Lidocaine Gel Depth: in the subcutaneous layer Percentage of wound debrided: 100 Instrument Used: #15 blade Tissue Removed: fibrous, devitalized subcutaneous, biofiom, slough Severity: Fat Layer Exposed Amount of bleeding with debridement: Mild Bleeding Controlled with: Pressure Patient tolerated procedure: Patient tolerated procedure well - Additional Wound Wound debrided: lateral leg Laterality: Right Type of Debridement: Excisional debridement Anesthesia Used: 5% Lidocaine Gel Depth: in the subcutaneous layer Percentage of wound debrided: 100 Instrument Used: #15 blade Tissue Removed: fibrous, devitalized subcutaneous, biofiom, slough Severity: Fat Layer Exposed Amount of bleeding with debridement: Mild Bleeding Controlled with: Pressure Patient tolerated procedure: Patient tolerated procedure well Assessment/Plan Active Problems (Last Reviewed 08/13/18 @ 10:19 by Fernando Patterson MD) 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 left leg ulcer, stable no infection, No infection. Right leg eschar at ankle level, no infection. Paralysis. Bilateral lower extremity edema. Malnutrition Plan: I reviewed his case. Debridement done as documented in the clinical nursing panel above to the right and left legs and right ankle. This procedure was well-tolerated. Continue use of santyl daily to right ankle site and to apply Aquacel Ag to the other ulcer sites. No infection was noted. To continue strict offloading. We discussed the details of this again today. Do not place anything directly under the wound including pillows as light he was advised. He can do this by placing the pillows around the ulcer site or using a donut pillow. to continue with nutritional supplementation. Ulcer debridement was tolerated well. It is okay to transition to normal shoe gear on the right and left lower extremities and continue with surgical shoe on the left. He brought his new extra-depth shoes today and he is advised it is okay to start wearing the right one. The extra-depth shoe is well aligned and fits properly in length and width. He was advised on the proper break-in process and to proceed with extreme caution. To monitor for new skin irritation or blister formation. Advised if he has increased edema he should avoid wearing shoes in general until it has resided. He was reassured no signs of infection noted today. To continue Tubigrip for edema management. To return to clinic in 1 week or call sooner if he has any questions or concerns. All his questions were answered.
[2019-09-11 11:00] VITALS: BP 110/68; PULSE 65; RESP 18; TEMP 36.6; BMI 24.3
--- NOTE | 2019-09-11 11:21 | PN.PCM_ITS ---
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 Comment: lateral ankle and also new anterior leg ulcer (3) Paralysis Status: Chronic Current Visit: Yes Code(s): G83.9 - Paralytic syndrome, unspecified (4) Malnutrition Status: Chronic Current Visit: Yes Code(s): E46 - Unspecified protein- calorie malnutrition (5) Delayed wound healing Status: Chronic Current Visit: Yes Code(s): T14.8XXD - Other injury of unspecified body region, subsequent encounter (6) Edema leg Status: Chronic Current Visit: Yes Code(s): R60.0 - Localized edema Type of Wound Date of Service: 09/11/19 Chief Complaint: right leg ulcer and left leg ulcers. right ankle ulcer History of Wound: Mr. Sabillon is an 83-year-old currently being seen in the wound center for lower extremity ulcers. He does not report any redness. He denies fever, chill, nausea, vomiting. He is with his today. he wears tubigrips for edema control. He uses Santyl on the fibrous wounds and eschar, and Aquacel Ag to the more granular ulcers. Progress of Wound: Improving - Physical Exam Vital Signs Temp Pulse Resp BP 97.8 F 65 18 110/68 09/11/19 11:00 09/11/19 11:00 09/11/19 11:00 09/11/19 11:00 General: Alert, Oriented x3, Cooperative, No apparent distress Extremities: No cyanosis, Capillary Refill Less than 3 Seconds, No Calf Tenderness, Diminished Peripheral Pulses, Edema - mild bilateral lower extremities, - - paralysis lower extremity bilateral. wheelchair Skin: Ulcer/ Wound - no purulence, no erythema, no streaking, no deep tissue exposure, no necrosis. fibrous lateral right ankle and lateral left leg. right leg ulcer granular. atrophic peripheral skin Wound Measurements and Assessment WC - Nurse 1 - General Ulcer Measurement Start: 08/28/19 11:15 Freq: Status: Active Protocol: Activity Type Activity Date Activity User E-Sign Co-Sign Detail Recorded Client Recorded Date Recorded By Document 09/11/19 11:00 CAMERON [id number] 09/11/19 11:05 CAMERON 09/11/19 11:00 Wound Center Nurse 1 [Ulcer Assessment] 15-right lateral ankle -Combined with other wound No -Current Size (cm) - Length 1.5 -Current Size (cm) - Width 1.7 -Current Size (cm) - Depth 0.1 -Total Square Cm 2.55 -Photo Taken No -Epithelialization None Present -Tunneling No -Undermining/Tunneling No -Circular Undermining No -Exudate Amt Small -Exudate Type Serosanguineous -Wound Margin Flat & Intact -Granulation Amt None Present (0 %) -Slough/Fibrin Yes -Necrosis Amt Large (67-100%) -Necrotic Tissue Type Adherent Slough -Structure Exposed N/A -Texture (Denisse-wound Skin Appearance) Assessed, Localized Edema -Moisture (Denisse-wound Skin Appearance Assessed,Dry/ ) Scaly -Color (Denisse-wound Skin Appearance) Assessed -Temperature (Denisse-wound Skin No Abnormality Appearance) (Pt Warm) -Tenderness on Palpation (Denisse-wound No Skin Appearance) -Ulcer Cleansing Rinsed/ Irrigated with Saline -Foul Odor after Cleansing No -Anesthetic Used 5% Lidocaine Gel #14 LLat LE -Combined with other wound No -Current Size (cm) - Length 1.7 -Current Size (cm) - Width 1.7 -Current Size (cm) - Depth 0.2 -Total Square Cm 2.89 -Photo Taken No -Epithelialization Small 1-33% -Tunneling No -Undermining/Tunneling No -Circular Undermining No -Exudate Amt Small -Exudate Type Serosanguineous -Wound Margin Flat & Intact -Granulation Amt None Present (0 %) -Slough/Fibrin Yes -Necrosis Amt Large (67-100%) -Necrotic Tissue Type Adherent Slough -Structure Exposed N/A -Texture (Denisse-wound Skin Appearance) Assessed, Localized Edema -Moisture (Denisse-wound Skin Appearance Assessed,Dry/ ) Scaly -Color (Denisse-wound Skin Appearance) Assessed, Hemosiderin Staining -Temperature (Denisse-wound Skin No Abnormality Appearance) (Pt Warm) -Tenderness on Palpation (Denisse-wound No Skin Appearance) -Ulcer Cleansing Rinsed/ Irrigated with Saline -Foul Odor after Cleansing No -Anesthetic Used 5% Lidocaine Gel #7 Lateral RLE -Combined with other wound No -Current Size (cm) - Length 0.8 -Current Size (cm) - Width 0.8 -Current Size (cm) - Depth 0.2 -Total Square Cm 0.64 -Photo Taken No -Epithelialization Small 1-33% -Tunneling No -Undermining/Tunneling No -Circular Undermining No -Wound Margin Flat & Intact -Granulation Amt Small (1-33%) -Granulation Quality Red -Slough/Fibrin Yes -Necrosis Amt Medium (34-66%) -Necrotic Tissue Type Adherent Slough -Structure Exposed N/A -Texture (Denisse-wound Skin Appearance) Assessed, Localized Edema -Moisture (Denisse-wound Skin Appearance Assessed,Dry/ ) Scaly -Color (Denisse-wound Skin Appearance) Assessed -Temperature (Denisse-wound Skin No Abnormality Appearance) (Pt Warm) -Tenderness on Palpation (Denisse-wound No Skin Appearance) -Ulcer Cleansing Rinsed/ Irrigated with Saline -Foul Odor after Cleansing No -Anesthetic Used 5% Lidocaine Gel [Edema Assessment] -Lower Limb Edema Present Yes -Right Calf (cm) 25.8 -Right Ankle (cm) 21.3 -Left Calf (cm) 28 -Left Ankle (cm) 21.8 WC - Nurse 2 - General Ulcer CM Notes Start: 08/28/19 11:15 Freq: Status: Active Protocol: Activity Type Activity Date Activity User E-Sign Co-Sign Detail Recorded Client Recorded Date Recorded By Document 09/11/19 11:16 AN [id number] 09/11/19 11:18 AN 09/11/19 11:16 Wound Center Nurse 2 [Procedure/Treatment] 15-right lateral ankle -Time 11:16 -Correct Patient Yes -Correct Side, Site, Position Yes -Correct Procedure Yes -Procedure Performed Yes -Type of Procedure Debridement -Clinical Debridement Subcutaneous -Post Debridement Size (cm) - Length 0.9 -Post Debridement Size (cm) - Width 0.9 -Post Debridement Size (cm) - Depth 0.2 -Total Square Cm 0.81 -Wound/Ulcer Outcome Not Healed -Ulcer Cleansing Rinsed/ Irrigated with Saline -Foul Odor after Cleansing No -Bioengineered Tissue No -Bleeding Controlled with Pressure -Offloading Yes -Treatment Response Procedure Tolerated Well #14 LLat LE -Time 11:17 -Correct Patient Yes -Correct Side, Site, Position Yes -Correct Procedure Yes -Procedure Performed Yes -Type of Procedure Debridement -Clinical Debridement Subcutaneous -Post Debridement Size (cm) - Length 1.8 -Post Debridement Size (cm) - Width 1.8 -Post Debridement Size (cm) - Depth 0.2 -Total Square Cm 3.24 -Wound/Ulcer Outcome Not Healed -Ulcer Cleansing Rinsed/ Irrigated with Saline -Foul Odor after Cleansing No -Bioengineered Tissue No -Bleeding Controlled with Pressure -Offloading Yes -Treatment Response Procedure Tolerated Well #7 Lateral RLE -Time 11:17 -Correct Patient Yes -Correct Side, Site, Position Yes -Correct Procedure Yes -Procedure Performed Yes -Type of Procedure Debridement -Clinical Debridement Subcutaneous -Post Debridement Size (cm) - Length 1.6 -Post Debridement Size (cm) - Width 1.8 -Post Debridement Size (cm) - Depth 0.1 -Total Square Cm 2.88 -Wound/Ulcer Outcome Not Healed -Ulcer Cleansing Rinsed/ Irrigated with Saline -Foul Odor after Cleansing No -Bioengineered Tissue No -Bleeding Controlled with Pressure -Offloading Yes -Treatment Response Procedure Tolerated Well [See Physician Procedure note for Specifics] Pain Scale: 0-10 Numeric [Pain] -Is Patient Pain Free? Yes Musculoskeletal: No Tenderness to Palpation of Joints or Extremities, Muscle Wasting Neurological: - - epicritic sensation diminished via light touch Psych/Mental Status: Normal Affect, Appropriate Debridement Note Post-Debridement Measurements/Treatment WC - Nurse 2 - General Ulcer CM Notes Start: 08/28/19 11:15 Freq: Status: Active Protocol: Activity Type Activity Date Activity User E-Sign Co-Sign Detail Recorded Client Recorded Date Recorded By Document 08/28/19 11:56 AN [id number] 08/28/19 12:00 AN Document 09/04/19 11:40 AN [id number] 09/04/19 11:42 AN Document 09/11/19 11:16 AN [id number] 09/11/19 11:18 AN 08/28/19 09/04/19 09/11/19 11:56 11:40 11:16 Wound Center Nurse 2 15-right lateral ankle -Time 11:58 11:41 11:16 -Correct Patient Yes Yes Yes -Correct Side, Site, Position Yes Yes Yes -Correct Procedure Yes Yes Yes -Procedure Performed Yes Yes Yes -Type of Procedure Debridement Debridement Debridement -Clinical Debridement Subcutaneous Subcutaneous Subcutaneous -Post Debridement Size (cm) - Length 1.9 1.6 0.9 -Post Debridement Size (cm) - Width 1.7 1.9 0.9 -Post Debridement Size (cm) - Depth 0.1 0.2 0.2 -Total Square Cm 3.23 3.04 0.81 -Wound/Ulcer Outcome Not Healed Not Healed Not Healed -Ulcer Cleansing Rinsed/ Rinsed/ Rinsed/ Irrigated with Irrigated with Irrigated with Saline Saline Saline -Foul Odor after Cleansing No No -Bioengineered Tissue No -Bleeding Controlled with Pressure Pressure Pressure -Offloading Yes Yes Yes -Treatment Response Procedure Procedure Procedure Tolerated Well Tolerated Well Tolerated Well #14 LLat LE -Time 11:58 11:41 11:17 -Correct Patient Yes Yes Yes -Correct Side, Site, Position Yes Yes Yes -Correct Procedure Yes Yes Yes -Procedure Performed Yes Yes Yes -Type of Procedure Debridement Debridement Debridement -Clinical Debridement Subcutaneous Subcutaneous Subcutaneous -Post Debridement Size (cm) - Length 2.8 2.1 1.8 -Post Debridement Size (cm) - Width 1.9 1.8 1.8 -Post Debridement Size (cm) - Depth 0.1 0.2 0.2 -Total Square Cm 5.32 3.78 3.24 -Wound/Ulcer Outcome Not Healed Not Healed Not Healed -Ulcer Cleansing Rinsed/ Rinsed/ Rinsed/ Irrigated with Irrigated with Irrigated with Saline Saline Saline -Foul Odor after Cleansing No No -Bioengineered Tissue No No -Bleeding Controlled with Pressure Pressure -Offloading Yes Yes Yes -Treatment Response Procedure Procedure Procedure Tolerated Well Tolerated Well Tolerated Well #7 Lateral RLE -Time 11:59 11:41 11:17 -Correct Patient Yes Yes Yes -Correct Side, Site, Position Yes Yes Yes -Correct Procedure Yes Yes Yes -Procedure Performed Yes Yes Yes -Type of Procedure Debridement Debridement Debridement -Clinical Debridement Subcutaneous Subcutaneous Subcutaneous -Post Debridement Size (cm) - Length 9.9 2.9 1.6 -Post Debridement Size (cm) - Width 2.4 0.9 1.8 -Post Debridement Size (cm) - Depth 0.1 0.2 0.1 -Total Square Cm 23.76 2.61 2.88 -Wound/Ulcer Outcome Not Healed Not Healed Not Healed -Ulcer Cleansing Rinsed/ Rinsed/ Irrigated with Irrigated with Saline Saline -Foul Odor after Cleansing No No -Bioengineered Tissue No No -Bleeding Controlled with Pressure Pressure Pressure -Offloading Yes Yes Yes -Treatment Response Procedure Procedure Procedure Tolerated Well Tolerated Well Tolerated Well Pain Scale: 0-10 Numeric Is Patient Pain Free? Yes Yes Yes Wound debrided: lateral ankle Laterality: Right Type of Debridement: Excisional debridement Anesthesia Used: 5% Lidocaine Gel Depth: in the subcutaneous layer Percentage of wound debrided: 100 Instrument Used: #15 blade Tissue Removed: fibrous, devitalized subcutaneous, biofilm, slough Severity: Fat Layer Exposed Amount of bleeding with debridement: Mild Bleeding Controlled with: Pressure Patient did not tolerate procedure well - Additional Wound Wound debrided: lateral leg Laterality: Right Type of Debridement: Excisional debridement Anesthesia Used: 5% Lidocaine Gel Depth: in the subcutaneous layer Percentage of wound debrided: 100 Instrument Used: #15 blade Tissue Removed: fibrous, devitalized subcutaneous, biofilm, slough Severity: Fat Layer Exposed Amount of bleeding with debridement: Mild Bleeding Controlled with: Pressure Patient tolerated procedure: Patient tolerated procedure well Assessment/Plan Active Problems (Last Reviewed 08/13/18 @ 10:19 by Fernando Patterson MD) 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 left leg ulcer, stable no infection, No infection. Right leg eschar at ankle level, no infection. Paralysis. Bilateral lower extremity edema. Malnutrition Plan: I reviewed his case. Debridement done as documented in the clinical nursing panel above to the right and left legs and right ankle. This procedure was well-tolerated. Continue use of santyl daily to right ankle site and left leg sites, and to apply Aquacel Ag to the other right leg ulcer site. No infection was noted. To continue strict offloading. We discussed the details of this again today. Do not place anything directly under the wound including pillows as light he was advised. He can do this by placing the pillows around the ulcer site or using a donut pillow. to continue with nutritional supplementation. Ulcer debridement was tolerated well. It is okay to transition to normal shoe gear on the right and left lower extremities and continue with surgical shoe on the left. He brought his new extra-depth shoes t devang and he is advised it is okay to start wearing the right one. The extra- depth shoe is well aligned and fits properly in length and width. He was advised on the proper break-in process and to proceed with extreme caution. To monitor for new skin irritation or blister formation. Advised if he has increased edema he should avoid wearing shoes in general until it has resided. He was reassured no signs of infection noted today. To continue Tubigrip for edema management. To return to clinic in 1 week or call sooner if he has any questions or concerns. All his questions were answered.
[2019-09-18 10:59] VITALS: BP 145/75; PULSE 68; TEMP 36.9; BMI 24.3
--- NOTE | 2019-09-18 11:59 | PCM.WC.PN ---
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 Comment: lateral ankle and also new anterior leg ulcer (3) Paralysis Status: Chronic Current Visit: Yes Code(s): G83.9 - Paralytic syndrome, unspecified (4) Malnutrition Status: Chronic Current Visit: Yes Code(s): E46 - Unspecified protein-calorie malnutrition (5) Delayed wound healing Status: Chronic Current Visit: Yes Code(s): T14.8XXD - Other injury of unspecified body region, subsequent encounter (6) Edema leg Status: Chronic Current Visit: Yes Code(s): R60.0 - Localized edema Type of Wound Date of Service: 09/18/19 Chief Complaint: right leg ulcer and left leg ulcers. right ankle ulcer History of Wound: Mr. Sabillon is an 83-year-old currently being seen in the wound center for lower extremity ulcers. He does not report any redness. He denies fever, chill, nausea, vomiting. He is with his today. he wears tubigrips for edema control. He uses Santyl on the fibrous wounds and eschar, and Aquacel Ag to the more granular ulcers. Progress of Wound: Improving - Physical Exam Vital Signs Temp Pulse Resp BP 98.4 F 68 18 145/75 H 09/18/19 10:59 09/18/19 10:59 09/11/19 11:00 09/18/19 10:59 General: Alert, Oriented x3, Cooperative, No apparent distress Extremities: No cyanosis, Capillary Refill Less than 3 Seconds, No Calf Tenderness, Diminished Peripheral Pulses, Edema - Mild bilateral lower extremities, - - Paralysis bilateral lower extremities; wheelchair noted Skin: Ulcer/ Wound - No purulence, erythema, streaking, odor, infection. Fibrous lateral right ankle ulcer site is noted just Wound Measurements and Assessment WC - Nurse 1 - General Ulcer Measurement Start: 08/28/19 11:15 Freq: Status: Active Protocol: Activity Type Activity Date Activity User E-Sign Co-Sign Detail Recorded Client Recorded Date Recorded By Document 09/18/19 10:59 [facility] [id number] 09/18/19 11:11 [facility] 09/18/19 10:59 Wound Center Nurse 1 [Ulcer Assessment] 15-right lateral ankle -Combined with other wound No -Current Size (cm) - Length 1.7 -Current Size (cm) - Width 1.9 -Current Size (cm) - Depth 0.2 -Total Square Cm 3.23 -Photo Taken No -Epithelialization None Present -Tunneling No -Undermining/Tunneling No -Circular Undermining No -Exudate Amt Small -Exudate Type Serosanguineous -Wound Margin Fibrotic Scar, Thickened Scar -Granulation Amt None Present (0 %) -Granulation Quality N/A -Slough/Fibrin Yes -Necrosis Amt None Present (0 %) -Necrotic Tissue Type Adherent Slough -Structure Exposed N/A -Texture (Denisse-wound Skin Appearance) No Abnormality, Assessed -Moisture (Denisse-wound Skin Appearance No Abnormality, ) Assessed -Color (Denisse-wound Skin Appearance) No Abnormality, Assessed -Temperature (Denisse-wound Skin No Abnormality Appearance) (Pt Warm) -Tenderness on Palpation (Denisse-wound No Skin Appearance) -Ulcer Cleansing Rinsed/ Irrigated with Saline -Foul Odor after Cleansing No -Anesthetic Used 4% Lidocaine Solution #14 LLat LE -Combined with other wound No -Current Size (cm) - Length 1.7 -Current Size (cm) - Width 1.8 -Current Size (cm) - Depth 0.2 -Total Square Cm 3.06 -Photo Taken No -Epithelialization None Present -Tunneling No -Undermining/Tunneling No -Circular Undermining No -Exudate Amt None Present -Wound Margin Distinct, Outline Attached -Granulation Amt None Present (0 %) -Granulation Quality N/A -Slough/Fibrin Yes -Necrosis Amt None Present (0 %) -Necrotic Tissue Type Adherent Slough -Structure Exposed N/A -Texture (Denisse-wound Skin Appearance) No Abnormality, Assessed -Moisture (Denisse-wound Skin Appearance No Abnormality, ) Assessed -Color (Denisse-wound Skin Appearance) No Abnormality, Assessed -Temperature (Denisse-wound Skin No Abnormality Appearance) (Pt Warm) -Tenderness on Palpation (Denisse-wound No Skin Appearance) -Ulcer Cleansing Rinsed/ Irrigated with Saline -Anesthetic Used 4% Lidocaine Solution #7 Lateral RLE -Combined with other wound No -Current Size (cm) - Length 0.8 -Current Size (cm) - Width 0.9 -Current Size (cm) - Depth 0.2 -Total Square Cm 0.72 -Photo Taken No -Epithelialization None Present -Tunneling No -Undermining/Tunneling No -Circular Undermining No -Exudate Amt Small -Wound Margin Distinct, Outline Attached -Granulation Amt None Present (0 %) -Granulation Quality N/A -Slough/Fibrin Yes -Necrosis Amt None Present (0 %) -Necrotic Tissue Type Adherent Slough -Structure Exposed N/A -Texture (Denisse-wound Skin Appearance) Assessed, Scarring -Moisture (Denisse-wound Skin Appearance No Abnormality, ) Assessed -Color (Denisse-wound Skin Appearance) No Abnormality, Assessed -Temperature (Denisse-wound Skin No Abnormality Appearance) (Pt Warm) -Tenderness on Palpation (Denisse-wound Yes Skin Appearance) -Ulcer Cleansing Rinsed/ Irrigated with Saline -Foul Odor after Cleansing No -Anesthetic Used 4% Lidocaine Solution [Edema Assessment] -Lower Limb Edema Present No -Right Calf (cm) 25.6 -Right Ankle (cm) 20.1 -Left Calf (cm) 29.3 -Left Ankle (cm) 21.5 WC - Nurse 2 - General Ulcer CM Notes Start: 08/28/19 11:15 Freq: Status: Active Protocol: Activity Type Activity Date Activity User E-Sign Co-Sign Detail Recorded Client Recorded Date Recorded By Document 09/18/19 11:49 AN [id number] 09/18/19 11:53 AN 09/18/19 11:49 Wound Center Nurse 2 [Procedure/Treatment] 15-right lateral ankle -Time 11:50 -Correct Patient Yes -Correct Side, Site, Position Yes -Correct Procedure Yes -Procedure Performed Yes -Type of Procedure Debridement -Clinical Debridement Subcutaneous -Post Debridement Size (cm) - Length 1.8 -Post Debridement Size (cm) - Width 2.0 -Post Debridement Size (cm) - Depth 0.2 -Total Square Cm 3.60 -Wound/Ulcer Outcome Not Healed -Treatment Response Procedure Tolerated Well #14 LLat LE -Time 11:50 -Correct Patient Yes -Correct Side, Site, Position Yes -Correct Procedure Yes -Procedure Performed Yes -Type of Procedure Debridement -Clinical Debridement Subcutaneous -Post Debridement Size (cm) - Length 1.8 -Post Debridement Size (cm) - Width 1.9 -Post Debridement Size (cm) - Depth 0.2 -Total Square Cm 3.42 -Wound/Ulcer Outcome Not Healed -Bleeding Controlled with Pressure -Treatment Response Procedure Tolerated Well #7 Lateral RLE -Time 11:50 -Correct Patient Yes -Correct Side, Site, Position Yes -Correct Procedure Yes -Procedure Performed Yes -Type of Procedure Debridement -Clinical Debridement Subcutaneous -Post Debridement Size (cm) - Length 1.0 -Post Debridement Size (cm) - Width 0.9 -Post Debridement Size (cm) - Depth 0.2 -Total Square Cm 0.90 -Wound/Ulcer Outcome Not Healed -Ulcer Cleansing Rinsed/ Irrigated with Saline -Foul Odor after Cleansing No -Bioengineered Tissue No -Bleeding Controlled with Pressure -Offloading Yes -Treatment Response Procedure Tolerated Well [See Physician Procedure note for Specifics] Pain Scale: 0-10 Numeric [Pain] -Is Patient Pain Free? Yes Musculoskeletal: No Tenderness to Palpation of Joints or Extremities, Muscle Wasting Neurological: - - Lack of normal epicritic sensation light touch bilateral Psych/Mental Status: Normal Affect, Appropriate Debridement Note Post-Debridement Measurements/Treatment WC - Nurse 2 - General Ulcer CM Notes Start: 08/28/19 11:15 Freq: Status: Active Protocol: Activity Type Activity Date Activity User E-Sign Co-Sign Detail Recorded Client Recorded Date Recorded By Document 08/28/19 11:56 AN [id number] 08/28/19 12:00 AN Document 09/04/19 11:40 AN [id number] 09/04/19 11:42 AN Document 09/11/19 11:16 AN [id number] 09/11/19 11:18 AN Document 09/18/19 11:49 AN [id number] 09/18/19 11:53 AN 08/28/19 09/04/19 09/11/19 11:56 11:40 11:16 Wound Center Nurse 2 15-right lateral ankle -Time 11:58 11:41 11:16 -Correct Patient Yes Yes Yes -Correct Side, Site, Position Yes Yes Yes -Correct Procedure Yes Yes Yes -Procedure Performed Yes Yes Yes -Type of Procedure Debridement Debridement Debridement -Clinical Debridement Subcutaneous Subcutaneous Subcutaneous -Post Debridement Size (cm) - Length 1.9 1.6 0.9 -Post Debridement Size (cm) - Width 1.7 1.9 0.9 -Post Debridement Size (cm) - Depth 0.1 0.2 0.2 -Total Square Cm 3.23 3.04 0.81 -Wound/Ulcer Outcome Not Healed Not Healed Not Healed -Ulcer Cleansing Rinsed/ Rinsed/ Rinsed/ Irrigated with Irrigated with Irrigated with Saline Saline Saline -Foul Odor after Cleansing No No -Bioengineered Tissue No -Bleeding Controlled with Pressure Pressure Pressure -Offloading Yes Yes Yes -Treatment Response Procedure Procedure Procedure Tolerated Well Tolerated Well Tolerated Well #14 LLat LE -Time 11:58 11:41 11:17 -Correct Patient Yes Yes Yes -Correct Side, Site, Position Yes Yes Yes -Correct Procedure Yes Yes Yes -Procedure Performed Yes Yes Yes -Type of Procedure Debridement Debridement Debridement -Clinical Debridement Subcutaneous Subcutaneous Subcutaneous -Post Debridement Size (cm) - Length 2.8 2.1 1.8 -Post Debridement Size (cm) - Width 1.9 1.8 1.8 -Post Debridement Size (cm) - Depth 0.1 0.2 0.2 -Total Square Cm 5.32 3.78 3.24 -Wound/Ulcer Outcome Not Healed Not Healed Not Healed -Ulcer Cleansing Rinsed/ Rinsed/ Rinsed/ Irrigated with Irrigated with Irrigated with Saline Saline Saline -Foul Odor after Cleansing No No -Bioengineered Tissue No No -Bleeding Controlled with Pressure Pressure -Offloading Yes Yes Yes -Treatment Response Procedure Procedure Procedure Tolerated Well Tolerated Well Tolerated Well #7 Lateral RLE -Time 11:59 11:41 11:17 -Correct Patient Yes Yes Yes -Correct Side, Site, Position Yes Yes Yes -Correct Procedure Yes Yes Yes -Procedure Performed Yes Yes Yes -Type of Procedure Debridement Debridement Debridement -Clinical Debridement Subcutaneous Subcutaneous Subcutaneous -Post Debridement Size (cm) - Length 9.9 2.9 1.6 -Post Debridement Size (cm) - Width 2.4 0.9 1.8 -Post Debridement Size (cm) - Depth 0.1 0.2 0.1 -Total Square Cm 23.76 2.61 2.88 -Wound/Ulcer Outcome Not Healed Not Healed Not Healed -Ulcer Cleansing Rinsed/ Rinsed/ Irrigated with Irrigated with Saline Saline -Foul Odor after Cleansing No No -Bioengineered Tissue No No -Bleeding Controlled with Pressure Pressure Pressure -Offloading Yes Yes Yes -Treatment Response Procedure Procedure Procedure Tolerated Well Tolerated Well Tolerated Well Pain Scale: 0-10 Numeric Is Patient Pain Free? Yes Yes Yes 09/18/19 11:49 Wound Center Nurse 2 15-right lateral ankle -Time 11:50 -Correct Patient Yes -Correct Side, Site, Position Yes -Correct Procedure Yes -Procedure Performed Yes -Type of Procedure Debridement -Clinical Debridement Subcutaneous -Post Debridement Size (cm) - Length 1.8 -Post Debridement Size (cm) - Width 2.0 -Post Debridement Size (cm) - Depth 0.2 -Total Square Cm 3.60 -Wound/Ulcer Outcome Not Healed -Ulcer Cleansing -Foul Odor after Cleansing -Bioengineered Tissue -Bleeding Controlled with -Offloading -Treatment Response Procedure Tolerated Well #14 LLat LE -Time 11:50 -Correct Patient Yes -Correct Side, Site, Position Yes -Correct Procedure Yes -Procedure Performed Yes -Type of Procedure Debridement -Clinical Debridement Subcutaneous -Post Debridement Size (cm) - Length 1.8 -Post Debridement Size (cm) - Width 1.9 -Post Debridement Size (cm) - Depth 0.2 -Total Square Cm 3.42 -Wound/Ulcer Outcome Not Healed -Ulcer Cleansing -Foul Odor after Cleansing -Bioengineered Tissue -Bleeding Controlled with Pressure -Offloading -Treatment Response Procedure Tolerated Well #7 Lateral RLE -Time 11:50 -Correct Patient Yes -Correct Side, Site, Position Yes -Correct Procedure Yes -Procedure Performed Yes -Type of Procedure Debridement -Clinical Debridement Subcutaneous -Post Debridement Size (cm) - Length 1.0 -Post Debridement Size (cm) - Width 0.9 -Post Debridement Size (cm) - Depth 0.2 -Total Square Cm 0.90 -Wound/Ulcer Outcome Not Healed -Ulcer Cleansing Rinsed/ Irrigated with Saline -Foul Odor after Cleansing No -Bioengineered Tissue No -Bleeding Controlled with Pressure -Offloading Yes -Treatment Response Procedure Tolerated Well Pain Scale: 0-10 Numeric Is Patient Pain Free? Yes Wound debrided: leg Laterality: Left Type of Debridement: Excisional debridement Anesthesia Used: 5% Lidocaine Gel Depth: in the subcutaneous layer Percentage of wound debrided: 100 Instrument Used: #15 blade Tissue Removed: fibrous, devitalized subcutaneous, biofilm, slough Severity: Fat Layer Exposed Amount of bleeding with debridement: Mild Bleeding Controlled with: Pressure Patient tolerated procedure well - Additional Wound Wound debrided: leg Laterality: Right Type of Debridement: Excisional debridement Anesthesia Used: 5% Lidocaine Gel Depth: in the subcutaneous layer Percentage of wound debrided: 100 Instrument Used: #15 blade Tissue Removed: fibrous, devitalized subcutaneous, biofilm, slough Severity: Fat Layer Exposed Amount of bleeding with debridement: Mild Bleeding Controlled with: Pressure Patient tolerated procedure: Patient tolerated procedure well - Additional Wound Wound debrided: lateral ankle Laterality: Right Type of Debridement: Excisional debridement Anesthesia Used: 5% Lidocaine Gel Depth: in the subcutaneous layer Percentage of wound debrided: 100 Instrument Used: #15 blade Tissue Removed: fibrous, devitalized subcutaneous, biofilm, slough Severity: Fat Layer Exposed Amount of bleeding with debridement: Mild Bleeding Controlled with: Pressure Patient tolerated procedure: Patient tolerated procedure well Assessment/Plan Active Problems (Last Reviewed 08/13/18 @ 10:19 by Fernando Patterson MD) 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 left leg ulcer, stable no infection, No infection. Right leg eschar at ankle level, no infection. Paralysis. Bilateral lower extremity edema. Malnutrition Plan: I reviewed his case. Debridement done as documented in the clinical nursing panel above to the right and left legs and right ankle. This procedure was well-tolerated. Continue use of santyl daily to right ankle site and left leg sites, and to apply Aquacel Ag to the other right leg ulcer site. No infection was noted. To continue strict offloading. We discussed the details of this again today. Do not place anything directly under the wound including pillows as light he was advised. He can do this by placing the pillows around the ulcer site or using a donut pillow. to continue with nutritional supplementation. Ulcer debridement was tolerated well. It is okay to transition to normal shoe gear on the right and left lower extremities and continue with surgical shoe on the left. He brought his new extra-depth shoes today and he is advised it is okay to start wearing the right one. The extra-depth shoe is well aligned and fits properly in length and width. He was advised on the proper break-in process and to proceed with extreme caution. To monitor for new skin irritation or blister formation. Advised if he has increased edema he should avoid wearing shoes in general until it has resided. He was reassured no signs of infection noted today. To continue Tubigrip for edema management. To return to clinic in 1 week or call sooner if he has any questions or concerns. All his questions were answered.
[2019-09-25 11:20] VITALS: BP 145/83; PULSE 60; RESP 16; TEMP 36.5; BMI 24.3
--- NOTE | 2019-09-25 13:39 | PCM.WC.PN ---
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 right ankle ulcer History of Wound: Mr. Sabillon is an 83-year-old currently being seen in the wound center for lower extremity ulcers. He does not report any redness. He denies fever, chill, nausea, vomiting. He is with his today. he wears tubigrips for edema control. He uses Santyl on the fibrous wounds and eschar, and Aquacel Ag to the more granular ulcers. 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 His peripheral skin is hairless and atrophic Wound Measurements and Assessment WC - Nurse 1 - General Ulcer Measurement Start: 08/28/19 11:15 Freq: Status: Active Protocol: Activity Type Activity Date Activity User E-Sign Co-Sign Detail Recorded Client Recorded Date Recorded By Document 09/25/19 11:20 [facility] [id number] 09/25/19 11:33 [facility] 09/25/19 11:20 Wound Center Nurse 1 [Ulcer Assessment] 15-right lateral ankle -Combined with other wound No -Current Size (cm) - Length 1.4 -Current Size (cm) - Width 1.6 -Current Size (cm) - Depth 0.2 -Total Square Cm 2.24 -Photo Taken No -Epithelialization Small 1-33% -Tunneling No -Undermining/Tunneling No -Circular Undermining No -Exudate Amt Small -Exudate Type Serous -Wound Margin Distinct, Outline Attached -Granulation Amt Small (1-33%) -Granulation Quality Red -Slough/Fibrin Yes -Necrosis Amt Large (67-100%) -Necrotic Tissue Type Adherent Slough -Texture (Denisse-wound Skin Appearance) Assessed, Scarring -Moisture (Denisse-wound Skin Appearance Assessed,Dry/ ) Scaly -Color (Denisse-wound Skin Appearance) Assessed, Hemosiderin Staining -Temperature (Denisse-wound Skin No Abnormality Appearance) (Pt Warm) -Tenderness on Palpation (Denisse-wound No Skin Appearance) -Ulcer Cleansing Rinsed/ Irrigated with Saline -Foul Odor after Cleansing No -Anesthetic Used 4% Lidocaine Solution #14 LLat LE -Combined with other wound No -Current Size (cm) - Length 1.5 -Current Size (cm) - Width 0.9 -Current Size (cm) - Depth 0.3 -Total Square Cm 1.35 -Photo Taken No -Epithelialization Small 1-33% -Tunneling No -Undermining/Tunneling No -Circular Undermining No -Exudate Amt Small -Exudate Type Serosanguineous -Wound Margin Distinct, Outline Attached -Granulation Amt Large (67-100%) -Granulation Quality Red -Slough/Fibrin Yes -Necrosis Amt Small (1-33%) -Necrotic Tissue Type Adherent Slough -Texture (Denisse-wound Skin Appearance) Assessed, Scarring -Moisture (Denisse-wound Skin Appearance Assessed,Dry/ ) Scaly -Color (Denisse-wound Skin Appearance) Assessed, Hemosiderin Staining -Temperature (Denisse-wound Skin No Abnormality Appearance) (Pt Warm) -Tenderness on Palpation (Denisse-wound No Skin Appearance) -Ulcer Cleansing Rinsed/ Irrigated with Saline -Foul Odor after Cleansing No -Anesthetic Used 4% Lidocaine Solution #7 Lateral RLE -Combined with other wound No -Current Size (cm) - Length 0.4 -Current Size (cm) - Width 0.3 -Current Size (cm) - Depth 0.2 -Total Square Cm 0.12 -Photo Taken No -Epithelialization None Present -Tunneling No -Undermining/Tunneling No -Circular Undermining No -Exudate Amt Small -Exudate Type Sanguineous -Wound Margin Distinct, Outline Attached -Granulation Amt Large (67-100%) -Granulation Quality Red -Slough/Fibrin Yes -Necrosis Amt Small (1-33%) -Necrotic Tissue Type Adherent Slough -Texture (Denisse-wound Skin Appearance) Assessed, Scarring -Moisture (Denisse-wound Skin Appearance Assessed,Dry/ ) Scaly -Color (Denisse-wound Skin Appearance) Assessed, Hemosiderin Staining -Temperature (Denisse-wound Skin No Abnormality Appearance) (Pt Warm) -Tenderness on Palpation (Denisse-wound No Skin Appearance) -Ulcer Cleansing Rinsed/ Irrigated with Saline -Foul Odor after Cleansing No -Anesthetic Used 4% Lidocaine Solution [Edema Assessment] -Lower Limb Edema Present Yes -Right Calf (cm) 26 -Right Ankle (cm) 20.6 -Left Calf (cm) 28.8 -Left Ankle (cm) 23 WC - Nurse 2 - General Ulcer CM Notes Start: 08/28/19 11:15 Freq: Status: Active Protocol: Activity Type Activity Date Activity User E-Sign Co-Sign Detail Recorded Client Recorded Date Recorded By Document 09/25/19 12:00 AN [id number] 09/25/19 12:02 AN 09/25/19 12:00 Wound Center Nurse 2 [Procedure/Treatment] 15-right lateral ankle -Time 12:01 -Correct Patient Yes -Correct Side, Site, Position Yes -Correct Procedure Yes -Procedure Performed Yes -Type of Procedure Debridement -Clinical Debridement Subcutaneous -Post Debridement Size (cm) - Length 1.5 -Post Debridement Size (cm) - Width 1.7 -Post Debridement Size (cm) - Depth 0.2 -Total Square Cm 2.55 -Wound/Ulcer Outcome Healed- Surgical Closure -Foul Odor after Cleansing No -Bioengineered Tissue No -Bleeding Controlled with Pressure -Offloading Yes -Treatment Response Procedure Tolerated Well #14 LLat LE -Time 12:01 -Correct Patient Yes -Correct Side, Site, Position Yes -Correct Procedure Yes -Procedure Performed Yes -Type of Procedure Debridement -Clinical Debridement Subcutaneous -Post Debridement Size (cm) - Length 1.6 -Post Debridement Size (cm) - Width 1.0 -Post Debridement Size (cm) - Depth 0.3 -Total Square Cm 1.60 -Wound/Ulcer Outcome Not Healed -Ulcer Cleansing Rinsed/ Irrigated with Saline -Foul Odor after Cleansing No -Bioengineered Tissue No -Bleeding Controlled with Pressure -Offloading Yes -Treatment Response Procedure Tolerated Well #7 Lateral RLE -Time 12:02 -Correct Patient Yes -Correct Side, Site, Position Yes -Correct Procedure Yes -Procedure Performed Yes -Type of Procedure Debridement -Clinical Debridement Subcutaneous -Post Debridement Size (cm) - Length 0.5 -Post Debridement Size (cm) - Width 0.4 -Post Debridement Size (cm) - Depth 0.2 -Total Square Cm 0.20 -Wound/Ulcer Outcome Not Healed -Ulcer Cleansing Rinsed/ Irrigated with Saline -Foul Odor after Cleansing No -Bioengineered Tissue No -Bleeding Controlled with Pressure -Offloading Yes -Treatment Response Procedure Tolerated Well [See Physician Procedure note for Specifics] Pain Scale: 0-10 Numeric [Pain] -Is Patient Pain Free? Yes Musculoskeletal: No Tenderness to Palpation of Joints or Extremities, Muscle Wasting Neurological: - - Lack of epicritic sensation to light touch bilateral lower extremities Psych/Mental Status: Normal Affect, Appropriate Debridement Note Post-Debridement Measurements/Treatment WC - Nurse 2 - General Ulcer CM Notes Start: 08/28/19 11:15 Freq: Status: Active Protocol: Activity Type Activity Date Activity User E-Sign Co-Sign Detail Recorded Client Recorded Date Recorded By Document 08/28/19 11:56 AN [id number] 08/28/19 12:00 AN Document 09/04/19 11:40 AN [id number] 09/04/19 11:42 AN Document 09/11/19 11:16 AN [id number] 09/11/19 11:18 AN Document 09/18/19 11:49 AN [id number] 09/18/19 11:53 AN Document 09/25/19 12:00 AN [id number] 09/25/19 12:02 AN 08/28/19 09/04/19 09/11/19 11:56 11:40 11:16 Wound Center Nurse 2 15-right lateral ankle -Time 11:58 11:41 11:16 -Correct Patient Yes Yes Yes -Correct Side, Site, Position Yes Yes Yes -Correct Procedure Yes Yes Yes -Procedure Performed Yes Yes Yes -Type of Procedure Debridement Debridement Debridement -Clinical Debridement Subcutaneous Subcutaneous Subcutaneous -Post Debridement Size (cm) - Length 1.9 1.6 0.9 -Post Debridement Size (cm) - Width 1.7 1.9 0.9 -Post Debridement Size (cm) - Depth 0.1 0.2 0.2 -Total Square Cm 3.23 3.04 0.81 -Wound/Ulcer Outcome Not Healed Not Healed Not Healed -Ulcer Cleansing Rinsed/ Rinsed/ Rinsed/ Irrigated with Irrigated with Irrigated with Saline Saline Saline -Foul Odor after Cleansing No No -Bioengineered Tissue No -Bleeding Controlled with Pressure Pressure Pressure -Offloading Yes Yes Yes -Treatment Response Procedure Procedure Procedure Tolerated Well Tolerated Well Tolerated Well #14 LLat LE -Time 11:58 11:41 11:17 -Correct Patient Yes Yes Yes -Correct Side, Site, Position Yes Yes Yes -Correct Procedure Yes Yes Yes -Procedure Performed Yes Yes Yes -Type of Procedure Debridement Debridement Debridement -Clinical Debridement Subcutaneous Subcutaneous Subcutaneous -Post Debridement Size (cm) - Length 2.8 2.1 1.8 -Post Debridement Size (cm) - Width 1.9 1.8 1.8 -Post Debridement Size (cm) - Depth 0.1 0.2 0.2 -Total Square Cm 5.32 3.78 3.24 -Wound/Ulcer Outcome Not Healed Not Healed Not Healed -Ulcer Cleansing Rinsed/ Rinsed/ Rinsed/ Irrigated with Irrigated with Irrigated with Saline Saline Saline -Foul Odor after Cleansing No No -Bioengineered Tissue No No -Bleeding Controlled with Pressure Pressure -Offloading Yes Yes Yes -Treatment Response Procedure Procedure Procedure Tolerated Well Tolerated Well Tolerated Well #7 Lateral RLE -Time 11:59 11:41 11:17 -Correct Patient Yes Yes Yes -Correct Side, Site, Position Yes Yes Yes -Correct Procedure Yes Yes Yes -Procedure Performed Yes Yes Yes -Type of Procedure Debridement Debridement Debridement -Clinical Debridement Subcutaneous Subcutaneous Subcutaneous -Post Debridement Size (cm) - Length 9.9 2.9 1.6 -Post Debridement Size (cm) - Width 2.4 0.9 1.8 -Post Debridement Size (cm) - Depth 0.1 0.2 0.1 -Total Square Cm 23.76 2.61 2.88 -Wound/Ulcer Outcome Not Healed Not Healed Not Healed -Ulcer Cleansing Rinsed/ Rinsed/ Irrigated with Irrigated with Saline Saline -Foul Odor after Cleansing No No -Bioengineered Tissue No No -Bleeding Controlled with Pressure Pressure Pressure -Offloading Yes Yes Yes -Treatment Response Procedure Procedure Procedure Tolerated Well Tolerated Well Tolerated Well Pain Scale: 0-10 Numeric Is Patient Pain Free? Yes Yes Yes 09/18/19 09/25/19 11:49 12:00 Wound Center Nurse 2 15-right lateral ankle -Time 11:50 12:01 -Correct Patient Yes Yes -Correct Side, Site, Position Yes Yes -Correct Procedure Yes Yes -Procedure Performed Yes Yes -Type of Procedure Debridement Debridement -Clinical Debridement Subcutaneous Subcutaneous -Post Debridement Size (cm) - Length 1.8 1.5 -Post Debridement Size (cm) - Width 2.0 1.7 -Post Debridement Size (cm) - Depth 0.2 0.2 -Total Square Cm 3.60 2.55 -Wound/Ulcer Outcome Not Healed Healed- Surgical Closure -Ulcer Cleansing -Foul Odor after Cleansing No -Bioengineered Tissue No -Bleeding Controlled with Pressure -Offloading Yes -Treatment Response Procedure Procedure Tolerated Well Tolerated Well #14 LLat LE -Time 11:50 12:01 -Correct Patient Yes Yes -Correct Side, Site, Position Yes Yes -Correct Procedure Yes Yes -Procedure Performed Yes Yes -Type of Procedure Debridement Debridement -Clinical Debridement Subcutaneous Subcutaneous -Post Debridement Size (cm) - Length 1.8 1.6 -Post Debridement Size (cm) - Width 1.9 1.0 -Post Debridement Size (cm) - Depth 0.2 0.3 -Total Square Cm 3.42 1.60 -Wound/Ulcer Outcome Not Healed Not Healed -Ulcer Cleansing Rinsed/ Irrigated with Saline -Foul Odor after Cleansing No -Bioengineered Tissue No -Bleeding Controlled with Pressure Pressure -Offloading Yes -Treatment Response Procedure Procedure Tolerated Well Tolerated Well #7 Lateral RLE -Time 11:50 12:02 -Correct Patient Yes Yes -Correct Side, Site, Position Yes Yes -Correct Procedure Yes Yes -Procedure Performed Yes Yes -Type of Procedure Debridement Debridement -Clinical Debridement Subcutaneous Subcutaneous -Post Debridement Size (cm) - Length 1.0 0.5 -Post Debridement Size (cm) - Width 0.9 0.4 -Post Debridement Size (cm) - Depth 0.2 0.2 -Total Square Cm 0.90 0.20 -Wound/Ulcer Outcome Not Healed Not Healed -Ulcer Cleansing Rinsed/ Rinsed/ Irrigated with Irrigated with Saline Saline -Foul Odor after Cleansing No No -Bioengineered Tissue No No -Bleeding Controlled with Pressure Pressure -Offloading Yes Yes -Treatment Response Procedure Procedure Tolerated Well Tolerated Well Pain Scale: 0-10 Numeric Is Patient Pain Free? Yes Yes Wound debrided: lateral ankle Laterality: Right Type of Debridement: Excisional debridement Anesthesia Used: 5% Lidocaine Gel Depth: in the subcutaneous layer Percentage of wound debrided: 100 Instrument Used: #15 blade Tissue Removed: fibrous, devitalized subcutaneous, biofilm, slough Severity: Fat Layer Exposed Amount of bleeding with debridement: Mild Bleeding Controlled with: Pressure Patient tolerated procedure well - Additional Wound Wound debrided: lateral leg Laterality: Right Type of Debridement: Excisional debridement Anesthesia Used: 5% Lidocaine Gel Depth: in the subcutaneous layer Percentage of wound debrided: 100 Instrument Used: #15 blade Tissue Removed: fibrous, devitalized subcutaneous, biofilm, slough Severity: Fat Layer Exposed Amount of bleeding with debridement: Mild Bleeding Controlled with: Pressure Patient tolerated procedure: Patient tolerated procedure well - Additional Wound Wound debrided: lateral leg Laterality: Left Type of Debridement: Excisional debridement Anesthesia Used: 5% Lidocaine Gel Depth: in the subcutaneous layer Percentage of wound debrided: 100 Instrument Used: #15 blade Tissue Removed: fibrous, devitalized subcutaneous, biofilm, slough Severity: Fat Layer Exposed Amount of bleeding with debridement: Mild Bleeding Controlled with: Pressure Patient tolerated procedure: Patient tolerated procedure well Assessment/Plan Assessment: Right leg ulcer with fat layer exposed and no eschar, no infection. left leg ulcer, stable no infection, No infection. Right leg eschar at ankle level, no infection. Paralysis. Bilateral lower extremity edema. Malnutrition Plan: I reviewed his case. Debridement done as documented in the clinical nursing panel above to the right and left legs and right ankle. This procedure was well-tolerated. Continue use of santyl daily to right ankle site and Aquacel Ag to the other bilateral leg ulcer sites. No infection was noted; to monitor. To continue strict offloading. We discussed the details of this again today. Do not place anything directly under the wound including pillows as light he was advised. He can do this by placing the pillows around the ulcer site or using a donut pillow. to continue with nutritional supplementation. To continue Tubigrip for edema management. To return to clinic in 1 week or call sooner if he has any questions or concerns. All his questions were answered.
== END 2019-09-26 23:59 ==
LOC: WC 11:00
PROVIDERS: Family Provider Family Medicine; PCP Family Medicine; Referring Provider Podiatrist; Visit Provider Podiatrist
DX: L97.312 Non-pressure chronic ulcer of right ankle with fat layer exposed (principal); R60.0 Localized edema; L97.812 Non-pressure chronic ulcer of other part of right lower leg with fat layer exposed; G83.9 Paralytic syndrome, unspecified; L97.822 Non-pressure chronic ulcer of other part of left lower leg with fat layer exposed
CPT/HCPCS: 11042; 11045

== ENCOUNTER 2019-10-23 11:45 | Outpatient (RCR) | payer MEDICARE, OTHER, SELFPAY ==
[2019-09-27 00:37] VITALS: BP 145/83; PULSE 60; RESP 16; TEMP 36.5
[2019-10-02 11:09] VITALS: BP 144/76; PULSE 68; RESP 16; TEMP 36.6; BMI 24.3
--- NOTE | 2019-10-02 13:45 | PN.PCM_ITS ---
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 right ankle ulcer History of Wound: Mr. Sabillon is an 84-year-old currently being seen in the wound center for lower extremity ulcers. He does not report any redness. He denies fever, chill, nausea, vomiting. He is with his today. he wears tubigrips for edema control. He uses Santyl on the fibrous wounds and eschar, and Aquacel Ag to the more granular ulcers. Progress of Wound: Improving - Physical Exam Vital Signs Temp Pulse Resp BP 97.8 F 68 16 144/76 H 10/02/19 11:09 10/02/19 11:09 10/02/19 11:09 10/02/19 11:09 General: Alert, Oriented x3, Cooperative, No apparent distress Extremities: Capillary Refill Less than 3 Seconds, No Calf Tenderness, Diminished Peripheral Pulses, Edema - Mild bilateral lower extremities, - - Paralysis and wheelchair motorized scooter noted Skin: Ulcer/ Wound - No purulence, erythema, streaking, odor, infection. Improved granulation tissue quality to all ulcer sites are noted. His peripheral skin is hairless and atrophic. There are no infections or necrosis or deep tissue exposure bilateral Wound Measurements and Assessment WC - Nurse 1 - General Ulcer Measurement Start: 10/02/19 11:09 Freq: Status: Active Protocol: Activity Type Activity Date Activity User E-Sign Co-Sign Detail Recorded Client Recorded Date Recorded By Document 10/02/19 11:09 MW [id number] 10/02/19 11:25 MW 10/02/19 11:09 Wound Center Nurse 1 [Ulcer Assessment] 15-right lateral ankle -Combined with other wound No -Current Size (cm) - Length 1.4 -Current Size (cm) - Width 1.5 -Current Size (cm) - Depth 0.1 -Total Square Cm 2.10 -Photo Taken No -Epithelialization None Present -Tunneling No -Undermining/Tunneling No -Circular Undermining No -Exudate Amt Small -Exudate Type Serosanguineous -Wound Margin Distinct, Outline Attached -Granulation Amt Medium (34-66%) -Granulation Quality Red -Slough/Fibrin Yes -Necrosis Amt Medium (34-66%) -Necrotic Tissue Type Adherent Slough -Structure Exposed N/A -Texture (Denisse-wound Skin Appearance) Assessed, Scarring -Moisture (Denisse-wound Skin Appearance Assessed,Dry/ ) Scaly -Color (Denisse-wound Skin Appearance) Assessed, Hemosiderin Staining -Temperature (Denisse-wound Skin No Abnormality Appearance) (Pt Warm) -Tenderness on Palpation (Denisse-wound No Skin Appearance) -Ulcer Cleansing Rinsed/ Irrigated with Saline -Foul Odor after Cleansing No -Anesthetic Used 4% Lidocaine Solution #14 LLat LE -Combined with other wound No -Current Size (cm) - Length 1.0 -Current Size (cm) - Width 1.0 -Current Size (cm) - Depth 0.1 -Total Square Cm 1.00 -Photo Taken No -Epithelialization None Present -Tunneling No -Undermining/Tunneling No -Circular Undermining No -Exudate Amt Small -Exudate Type Serosanguineous -Wound Margin Distinct, Outline Attached -Granulation Amt Medium (34-66%) -Granulation Quality Red -Slough/Fibrin Yes -Necrosis Amt Medium (34-66%) -Necrotic Tissue Type Adherent Slough -Structure Exposed N/A -Texture (Denisse-wound Skin Appearance) Assessed, Scarring -Moisture (Denisse-wound Skin Appearance Assessed,Dry/ ) Scaly -Color (Denisse-wound Skin Appearance) Assessed, Hemosiderin Staining -Temperature (Denisse-wound Skin No Abnormality Appearance) (Pt Warm) -Tenderness on Palpation (Denisse-wound No Skin Appearance) -Ulcer Cleansing Rinsed/ Irrigated with Saline -Foul Odor after Cleansing No -Anesthetic Used 4% Lidocaine Solution #7 Lateral RLE -Combined with other wound No -Current Size (cm) - Length 0.5 -Current Size (cm) - Width 0.5 -Current Size (cm) - Depth 0.1 -Total Square Cm 0.25 -Photo Taken No -Epithelialization None Present -Tunneling No -Undermining/Tunneling No -Circular Undermining No -Exudate Amt Small -Exudate Type Serosanguineous -Wound Margin Distinct, Outline Attached -Granulation Amt Medium (34-66%) -Granulation Quality Red -Necrosis Amt Medium (34-66%) -Necrotic Tissue Type Adherent Slough -Structure Exposed N/A -Texture (Denisse-wound Skin Appearance) Assessed, Scarring -Moisture (Denisse-wound Skin Appearance Assessed,Dry/ ) Scaly -Color (Denisse-wound Skin Appearance) Assessed, Hemosiderin Staining -Temperature (Deinsse-wound Skin No Abnormality Appearance) (Pt Warm) -Ulcer Cleansing Rinsed/ Irrigated with Saline -Foul Odor after Cleansing No -Anesthetic Used 4% Lidocaine Solution [Edema Assessment] -Lower Limb Edema Present No -Right Calf (cm) 27.0 -Right Ankle (cm) 20.2 -Left Calf (cm) 28.0 -Left Ankle (cm) 22.0 WC - Nurse 2 - General Ulcer CM Notes Start: 10/02/19 11:09 Freq: Status: Active Protocol: Activity Type Activity Date Activity User E-Sign Co-Sign Detail Recorded Client Recorded Date Recorded By Document 10/02/19 12:02 CAMERON [id number] 10/02/19 12:05 CAMERON 10/02/19 12:02 Wound Center Nurse 2 [Procedure/Treatment] 15-right lateral ankle -Time 12:02 -Correct Patient Yes -Correct Side, Site, Position Yes -Correct Procedure Yes -Procedure Performed Yes -Type of Procedure Debridement -Clinical Debridement Subcutaneous -Post Debridement Size (cm) - Length 1.5 -Post Debridement Size (cm) - Width 1.5 -Post Debridement Size (cm) - Depth 0.1 -Total Square Cm 2.25 -Wound/Ulcer Outcome Not Healed -Ulcer Cleansing Rinsed/ Irrigated with Saline -Foul Odor after Cleansing No -Bioengineered Tissue No -Bleeding Controlled with Pressure -Offloading No -Treatment Response Procedure Tolerated Well #14 LLat LE -Time 12:02 -Correct Patient Yes -Correct Side, Site, Position Yes -Correct Procedure Yes -Procedure Performed Yes -Type of Procedure Debridement -Clinical Debridement Subcutaneous -Post Debridement Size (cm) - Length 1.1 -Post Debridement Size (cm) - Width 1.1 -Post Debridement Size (cm) - Depth 0.1 -Total Square Cm 1.21 -Wound/Ulcer Outcome Not Healed -Ulcer Cleansing Rinsed/ Irrigated with Saline -Foul Odor after Cleansing No -Bioengineered Tissue No -Bleeding Controlled with Pressure -Offloading No -Treatment Response Procedure Tolerated Well #7 Lateral RLE -Time 12:03 -Correct Patient Yes -Correct Side, Site, Position Yes -Correct Procedure Yes -Procedure Performed Yes -Type of Procedure Debridement -Clinical Debridement Subcutaneous -Post Debridement Size (cm) - Length 0.6 -Post Debridement Size (cm) - Width 0.5 -Post Debridement Size (cm) - Depth 0.1 -Total Square Cm 0.30 -Wound/Ulcer Outcome Not Healed -Ulcer Cleansing Rinsed/ Irrigated with Saline -Foul Odor after Cleansing No -Bioengineered Tissue No -Bleeding Controlled with Pressure -Offloading No -Treatment Response Procedure Tolerated Well [See Physician Procedure note for Specifics] Pain Scale: 0-10 Numeric [Pain] -Is Patient Pain Free? Yes Musculoskeletal: No Tenderness to Palpation of Joints or Extremities, Muscle Wasting, - - Compartment soft to palpate bilateral lower extremities Neurological: - - Altered epicritic sensation light touch is consistent with n europathy bilateral Psych/Mental Status: Normal Affect, Appropriate Debridement Note Post-Debridement Measurements/Treatment WC - Nurse 2 - General Ulcer CM Notes Start: 10/02/19 11:09 Freq: Status: Active Protocol: Activity Type Activity Date Activity User E-Sign Co-Sign Detail Recorded Client Recorded Date Recorded By Document 10/02/19 12:02 CAMERON [id number] 10/02/19 12:05 CAMERON 10/02/19 12:02 Wound Center Nurse 2 15-right lateral ankle -Time 12:02 -Correct Patient Yes -Correct Side, Site, Position Yes -Correct Procedure Yes -Procedure Performed Yes -Type of Procedure Debridement -Clinical Debridement Subcutaneous -Post Debridement Size (cm) - Length 1.5 -Post Debridement Size (cm) - Width 1.5 -Post Debridement Size (cm) - Depth 0.1 -Total Square Cm 2.25 -Wound/Ulcer Outcome Not Healed -Ulcer Cleansing Rinsed/ Irrigated with Saline -Foul Odor after Cleansing No -Bioengineered Tissue No -Bleeding Controlled with Pressure -Offloading No -Treatment Response Procedure Tolerated Well #14 LLat LE -Time 12:02 -Correct Patient Yes -Correct Side, Site, Position Yes -Correct Procedure Yes -Procedure Performed Yes -Type of Procedure Debridement -Clinical Debridement Subcutaneous -Post Debridement Size (cm) - Length 1.1 -Post Debridement Size (cm) - Width 1.1 -Post Debridement Size (cm) - Depth 0.1 -Total Square Cm 1.21 -Wound/Ulcer Outcome Not Healed -Ulcer Cleansing Rinsed/ Irrigated with Saline -Foul Odor after Cleansing No -Bioengineered Tissue No -Bleeding Controlled with Pressure -Offloading No -Treatment Response Procedure Tolerated Well #7 Lateral RLE -Time 12:03 -Correct Patient Yes -Correct Side, Site, Position Yes -Correct Procedure Yes -Procedure Performed Yes -Type of Procedure Debridement -Clinical Debridement Subcutaneous -Post Debridement Size (cm) - Length 0.6 -Post Debridement Size (cm) - Width 0.5 -Post Debridement Size (cm) - Depth 0.1 -Total Square Cm 0.30 -Wound/Ulcer Outcome Not Healed -Ulcer Cleansing Rinsed/ Irrigated with Saline -Foul Odor after Cleansing No -Bioengineered Tissue No -Bleeding Controlled with Pressure -Offloading No -Treatment Response Procedure Tolerated Well Pain Scale: 0-10 Numeric Is Patient Pain Free? Yes Wound debrided: lateral leg Laterality: Right Type of Debridement: Excisional debridement Anesthesia Used: 5% Lidocaine Gel Depth: in the subcutaneous layer Percentage of wound debrided: 100 Instrument Used: #15 blade Tissue Removed: fibrous, devitalized subcutaneous, biofilm, slough Severity: Fat Layer Exposed Amount of bleeding with debridement: Mild Bleeding Controlled with: Pressure Patient tolerated procedure well - Additional Wound Wound debrided: lateral ankle Laterality: Right Type of Debridement: Excisional debridement Anesthesia Used: 5% Lidocaine Gel Depth: in the subcutaneous layer Percentage of wound debrided: 100 Instrument Used: #15 blade Tissue Removed: fibrous, devitalized subcutaneous, biofilm, slough Severity: Fat Layer Exposed Amount of bleeding with debridement: Mild Bleeding Controlled with: Pressure Patient tolerated procedure: Patient tolerated procedure well - Additional Wound Wound debrided: lateral leg Laterality: Left Type of Debridement: Excisional debridement Anesthesia Used: 5% Lidocaine Gel Depth: in the subcutaneous layer Percentage of wound debrided: 100 Instrument Used: #15 blade Tissue Removed: fibrous, devitalized subcutaneous, biofilm, slough Severity: Fat Layer Exposed Amount of bleeding with debridement: Mild Bleeding Controlled with: Pressure Patient tolerated procedure: Patient tolerated procedure well Assessment/Plan Active Problems (Last Reviewed 08/13/18 @ 10:19 by Fernando Patterson MD) 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 left leg ulcer, stable no infection, No infection. Right leg ulcer at ankle level, no infection. Paralysis. Bilateral lower extremity edema. Malnutrition Plan: I reviewed his case. Debridement done as documented in the clinical nursing panel above to the right and left legs and right ankle. This procedure was well-tolerated. Continue use of santyl daily to right ankle site and Aquacel Ag to the other bilateral leg ulcer sites. No infection was noted; to monitor. The improvement of the ulcer beds are noted and recommend application of advanced wound healing product, epi-fix. Indication, plan application, and anticipated healing time management were discussed in detail with the patient. He understands and elects to proceed forward. Prior authorization will be obtained. This is medically necessary for limb salvage and he has suspected adequate blood flow needed for healing. He has been participating in a comprehensive wound healing plan. To continue strict offloading. We discussed the details of this again today. Do not place anything directly under the wound including pillows as light he was advised. He can do this by placing the pillows around the ulcer site or using a donut pillow. to continue with nutritional supplementation. To continue Tubigrip for edema management. To return to clinic in 1 week or call sooner if he has any questions or concerns. All his questions were answered.
[2019-10-09 11:19] VITALS: BP 143/54; PULSE 72; RESP 20; TEMP 36.2; BMI 24.3
--- NOTE | 2019-10-09 11:54 | PN.PCM_ITS ---
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 right ankle ulcer History of Wound: Mr. Sabillon is an 84-year-old currently being seen in the wound center for lower extremity ulcers. He does not report any redness. He denies fever, chill, nausea, vomiting. He is with his today. he wears tubigrips for edema control. He uses Santyl on the fibrous wounds and eschar, and Aquacel Ag to the more granular ulcers. Progress of Wound: Improving - Physical Exam Vital Signs Temp Pulse Resp BP 97.1 F L 72 20 H 143/54 H 10/09/19 11:19 10/09/19 11:19 10/09/19 11:19 10/09/19 11:19 General: Alert, Oriented x3, Cooperative, No apparent distress HEENT: Atraumatic Extremities: No cyanosis, Capillary Refill Less than 3 Seconds, No Calf Tenderness, Diminished Peripheral Pulses, Edema - mild bilateral, - - lower extremity paralysis, wheelchair noted Skin: Ulcer/ Wound - no purulence, no erythema, no infection, no streaking, no odor, no exposed bone, no maceration bilateral. granulation bases noted and improving Wound Measurements and Assessment WC - Nurse 1 - General Ulcer Measurement Start: 10/02/19 11:09 Freq: Status: Active Protocol: Activity Type Activity Date Activity User E-Sign Co-Sign Detail Recorded Client Recorded Date Recorded By Document 10/09/19 11:19 DL [id number] 10/09/19 11:33 DL 10/09/19 11:19 Wound Center Nurse 1 [Ulcer Assessment] 15-right lateral ankle -Current Size (cm) - Length 0.8 -Current Size (cm) - Width 1 -Current Size (cm) - Depth 0.1 -Total Square Cm 0.8 -Photo Taken No -Exudate Amt Small -Exudate Type Sanguineous -Wound Margin Distinct, Outline Attached -Granulation Amt Small (1-33%) -Granulation Quality Red -Necrosis Amt Small (1-33%) -Necrotic Tissue Type Adherent Slough -Structure Exposed N/A -Texture (Denisse-wound Skin Appearance) Scarring -Moisture (Denisse-wound Skin Appearance Dry/Scaly ) -Color (Denisse-wound Skin Appearance) Hemosiderin Staining -Temperature (Denisse-wound Skin No Abnormality Appearance) (Pt Warm) -Tenderness on Palpation (Denisse-wound No Skin Appearance) -Ulcer Cleansing Rinsed/ Irrigated with Saline -Foul Odor after Cleansing No -Anesthetic Used 4% Lidocaine Solution #14 LLat LE -Current Size (cm) - Length 0.6 -Current Size (cm) - Width 0.6 -Current Size (cm) - Depth 0.1 -Total Square Cm 0.36 -Photo Taken No -Exudate Amt Small -Exudate Type Serosanguineous -Wound Margin Flat & Intact -Granulation Amt Large (67-100%) -Granulation Quality [place],Red -Necrosis Amt Small (1-33%) -Necrotic Tissue Type Adherent Slough -Structure Exposed N/A -Texture (Denisse-wound Skin Appearance) Scarring -Moisture (Denisse-wound Skin Appearance Dry/Scaly ) -Color (Denisse-wound Skin Appearance) Hemosiderin Staining -Temperature (Denisse-wound Skin No Abnormality Appearance) (Pt Warm) -Tenderness on Palpation (Denisse-wound No Skin Appearance) -Ulcer Cleansing Rinsed/ Irrigated with Saline -Foul Odor after Cleansing No -Anesthetic Used 4% Lidocaine Solution #7 Lateral RLE -Current Size (cm) - Length 1 -Current Size (cm) - Width 0.8 -Current Size (cm) - Depth 0.1 -Total Square Cm 0.8 -Photo Taken No -Exudate Amt Small -Exudate Type Serosanguineous -Wound Margin Distinct, Outline Attached -Granulation Amt Large (67-100%) -Granulation Quality Red -Necrosis Amt Small (1-33%) -Necrotic Tissue Type Adherent Slough -Structure Exposed N/A -Texture (Denisse-wound Skin Appearance) Scarring -Moisture (Denisse-wound Skin Appearance Dry/Scaly ) -Color (Denisse-wound Skin Appearance) Hemosiderin Staining -Temperature (Denisse-wound Skin No Abnormality Appearance) (Pt Warm) -Tenderness on Palpation (Denisse-wound No Skin Appearance) -Ulcer Cleansing Rinsed/ Irrigated with Saline -Foul Odor after Cleansing No -Anesthetic Used 4% Lidocaine Solution [Edema Assessment] -Right Calf (cm) 26.3 -Right Ankle (cm) 19.7 -Left Calf (cm) 28 -Left Ankle (cm) 18.5 WC - Nurse 2 - General Ulcer CM Notes Start: 10/02/19 11:09 Freq: Status: Active Protocol: Activity Type Activity Date Activity User E-Sign Co-Sign Detail Recorded Client Recorded Date Recorded By Document 10/09/19 11:45 DL [id number] 10/09/19 11:49 DL 10/09/19 11:45 Wound Center Nurse 2 [Procedure/Treatment] 15-right lateral ankle -Time 11:45 -Correct Patient Yes -Correct Side, Site, Position Yes -Correct Procedure Yes -Procedure Performed Yes -Type of Procedure Debridement -Clinical Debridement Subcutaneous -Post Debridement Size (cm) - Length 0.8 -Post Debridement Size (cm) - Width 1.1 -Post Debridement Size (cm) - Depth 0.1 -Total Square Cm 0.88 -Wound/Ulcer Outcome Not Healed -Ulcer Cleansing Rinsed/ Irrigated with Saline -Foul Odor after Cleansing No -Bioengineered Tissue No -Bleeding Controlled with Pressure -Offloading No -Treatment Response Procedure Tolerated Well #14 LLat LE -Time 11:47 -Correct Patient Yes -Correct Side, Site, Position Yes -Correct Procedure Yes -Procedure Performed Yes -Type of Procedure Debridement -Clinical Debridement Subcutaneous -Post Debridement Size (cm) - Length 0.7 -Post Debridement Size (cm) - Width 0.6 -Post Debridement Size (cm) - Depth 0.1 -Total Square Cm 0.42 -Wound/Ulcer Outcome Not Healed -Ulcer Cleansing Rinsed/ Irrigated with Saline -Foul Odor after Cleansing No -Bioengineered Tissue No -Bleeding Controlled with Pressure -Offloading No -Treatment Response Procedure Tolerated Well #7 Lateral RLE -Time 11:47 -Correct Patient Yes -Correct Side, Site, Position Yes -Correct Procedure Yes -Procedure Performed Yes -Type of Procedure Debridement -Clinical Debridement Subcutaneous -Post Debridement Size (cm) - Length 1.1 -Post Debridement Size (cm) - Width 0.8 -Post Debridement Size (cm) - Depth 0.1 -Total Square Cm 0.88 -Wound/Ulcer Outcome Not Healed -Ulcer Cleansing Rinsed/ Irrigated with Saline -Foul Odor after Cleansing No -Bioengineered Tissue Yes -Type of bioengineered Tissue EPIFIX -Expiration Date 03/27/24 -Product Lot Number [id number] -Percent Used 100 -Saline Lot Number [id number] -Bleeding Controlled with Pressure -Offloading No -Treatment Response Procedure Tolerated Well [See Physician Procedure note for Specifics] Pain Scale: 0-10 Numeric [Pain] -Is Patient Pain Free? Yes Musculoskeletal: No Tenderness to Palpation of Joints or Extremities, Muscle Wasting Neurological: - - lack of normal epicritic sensation via light touch noted bilateral Psych/Mental Status: Normal Affect, Appropriate Debridement Note Post-Debridement Measurements/Treatment WC - Nurse 2 - General Ulcer CM Notes Start: 10/02/19 11:09 Freq: Status: Active Protocol: Activity Type Activity Date Activity User E-Sign Co-Sign Detail Recorded Client Recorded Date Recorded By Document 10/02/19 12:02 [id number] 10/02/19 12:05 JF Document 10/09/19 11:45 DL [id number] 10/09/19 11:49 DL 10/02/19 10/09/19 12:02 11:45 Wound Center Nurse 2 15-right lateral ankle -Time 12:02 11:45 -Correct Patient Yes Yes -Correct Side, Site, Position Yes Yes -Correct Procedure Yes Yes -Procedure Performed Yes Yes -Type of Procedure Debridement Debridement -Clinical Debridement Subcutaneous Subcutaneous -Post Debridement Size (cm) - Length 1.5 0.8 -Post Debridement Size (cm) - Width 1.5 1.1 -Post Debridement Size (cm) - Depth 0.1 0.1 -Total Square Cm 2.25 0.88 -Wound/Ulcer Outcome Not Healed Not Healed -Ulcer Cleansing Rinsed/ Rinsed/ Irrigated with Irrigated with Saline Saline -Foul Odor after Cleansing No No -Bioengineered Tissue No No -Bleeding Controlled with Pressure Pressure -Offloading No No -Treatment Response Procedure Procedure Tolerated Well Tolerated Well #14 LLat LE -Time 12:02 11:47 -Correct Patient Yes Yes -Correct Side, Site, Position Yes Yes -Correct Procedure Yes Yes -Procedure Performed Yes Yes -Type of Procedure Debridement Debridement -Clinical Debridement Subcutaneous Subcutaneous -Post Debridement Size (cm) - Length 1.1 0.7 -Post Debridement Size (cm) - Width 1.1 0.6 -Post Debridement Size (cm) - Depth 0.1 0.1 -Total Square Cm 1.21 0.42 -Wound/Ulcer Outcome Not Healed Not Healed -Ulcer Cleansing Rinsed/ Rinsed/ Irrigated with Irrigated with Saline Saline -Foul Odor after Cleansing No No -Bioengineered Tissue No No -Bleeding Controlled with Pressure Pressure -Offloading No No -Treatment Response Procedure Procedure Tolerated Well Tolerated Well #7 Lateral RLE -Time 12:03 11:47 -Correct Patient Yes Yes -Correct Side, Site, Position Yes Yes -Correct Procedure Yes Yes -Procedure Performed Yes Yes -Type of Procedure Debridement Debridement -Clinical Debridement Subcutaneous Subcutaneous -Post Debridement Size (cm) - Length 0.6 1.1 -Post Debridement Size (cm) - Width 0.5 0.8 -Post Debridement Size (cm) - Depth 0.1 0.1 -Total Square Cm 0.30 0.88 -Wound/Ulcer Outcome Not Healed Not Healed -Ulcer Cleansing Rinsed/ Rinsed/ Irrigated with Irrigated with Saline Saline -Foul Odor after Cleansing No No -Bioengineered Tissue No Yes -Type of bioengineered Tissue EPIFIX -Expiration Date 03/27/24 -Product Lot Number [id number] -Percent Used 100 -Saline Lot Number [id number] -Bleeding Controlled with Pressure Pressure -Offloading No No -Treatment Response Procedure Procedure Tolerated Well Tolerated Well Pain Scale: 0-10 Numeric Is Patient Pain Free? Yes Yes Wound debrided: lateral ankle Laterality: Right Type of Debridement: Excisional debridement Anesthesia Used: 5% Lidocaine Gel Depth: in the subcutaneous layer Percentage of wound debrided: 100 Instrument Used: #15 blade Tissue Removed: fibrous, devitalized subcutaneous, biofilm, slough Severity: Fat Layer Exposed Amount of bleeding with debridement: Mild Bleeding Controlled with: Pressure Patient tolerated procedure well - Additional Wound Wound debrided: lateral leg Laterality: Right Type of Debridement: Excisional debridement Anesthesia Used: 5% Lidocaine Gel Depth: in the subcutaneous layer Percentage of wound debrided: 100 Instrument Used: #15 blade Tissue Removed: fibrous, devitalized subcutaneous, biofilm, slough Severity: Fat Layer Exposed Amount of bleeding with debridement: Mild Bleeding Controlled with: Pressure Patient tolerated procedure: Patient tolerated procedure well - Additional Wound Wound debrided: leg Laterality: Left Type of Debridement: Excisional debridement Anesthesia Used: 5% Lidocaine Gel Depth: in the subcutaneous layer Percentage of wound debrided: 100 Instrument Used: #15 blade Tissue Removed: fibrous, devitalized subcutaneous, biofilm, slough Severity: Fat Layer Exposed Amount of bleeding with debridement: Mild Bleeding Controlled with: Pressure Patient tolerated procedure: Patient tolerated procedure well Assessment/Plan Active Problems (Last Reviewed 08/13/18 @ 10:19 by Fernando Patterson MD) 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 left leg ulcer, stable no infection, No infection. Right leg ulcer at ankle level, no infection. Paralysis. Bilateral lower extremity edema. Malnutrition Plan: I reviewed his case. Debridement done as documented in the clinical nursing panel above to the right and left legs and right ankle. This procedure was well-tolerated. Continue Aquacel Ag to right ankle. No infection was noted; to monitor. The improvement of the ulcer beds are noted and recommend application of advanced wound healing product, epi-fix. Indication, plan application, and anticipated healing time management were discussed in detail with the patient. He understands and elects to proceed forward. Prior authorization was obtained. This is medically necessary for limb salvage and he has suspected adequate blood flow needed for healing. He has been participating in a comprehensive wound healing plan. Epi fix was applied according center protocol to bilateral leg ulcers. This was further secured with a wound veil and Steri-Strips. Verbal consent was obtained prior to the procedure and he tolerated this well. He was advised to keep this clean, dry, and intact until follow-up next week. To continue strict offloading. We discussed the details of this again today. Do not place anything directly under the wound including pillows as light he was advised. He can do this by placing the pillows around the ulcer site or using a donut pillow. to continue with nutritional supplementation. To continue Tubigrip for edema management. To return to clinic in 1 week or call sooner if he has any questions or concerns. All his questions were answered.
[2019-10-16 10:53] VITALS: BP 159/83; PULSE 71; RESP 16; TEMP 36.4; BMI 24.3
--- NOTE | 2019-10-17 15:48 | PN.PCM_ITS ---
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 right ankle ulcer History of Wound: Mr. Sabillon is an 84-year-old currently being seen in the wound center for lower extremity ulcers. He does not report any redness. He denies fever, chill, nausea, vomiting. He is with his today. he wears tubigrips for edema control. He Epi-fix advanced wound healing product in place to both legs as advised. Progress of Wound: Improving - Physical Exam Vital Signs Temp Pulse Resp BP 97.5 F L 71 16 159/83 H 10/16/19 10:53 10/16/19 10:53 10/16/19 10:53 10/16/19 10:53 General: Alert, Oriented x3, Cooperative Extremities: No cyanosis, Capillary Refill Less than 3 Seconds, No Calf Tenderness, Diminished Peripheral Pulses, Edema - Mild bilateral, - - Paralysis bilateral lower extremity, wheelchair noted Skin: Ulcer/ Wound - Improved granulation tissue to ulcer sites. No purulence, erythema, streaking, odor, infection. Peripheral skin is hairless and atrophic. Wound Measurements and Assessment WC - Nurse 1 - General Ulcer Measurement Start: 10/02/19 11:09 Freq: Status: Active Protocol: Activity Type Activity Date Activity User E-Sign Co-Sign Detail Recorded Client Recorded Date Recorded By Document 10/16/19 10:53 DL [id number] 10/16/19 11:01 DL 10/16/19 10:53 Wound Center Nurse 1 [Ulcer Assessment] 15-right lateral ankle -Current Size (cm) - Length 0.9 -Current Size (cm) - Width 0.7 -Current Size (cm) - Depth 0.1 -Total Square Cm 0.63 -Photo Taken No -Exudate Amt Small -Exudate Type Serosanguineous -Wound Margin Distinct, Outline Attached -Granulation Amt Small (1-33%) -Granulation Quality Red -Necrosis Amt Small (1-33%) -Necrotic Tissue Type Adherent Slough -Structure Exposed N/A -Texture (Denisse-wound Skin Appearance) Scarring -Moisture (Denisse-wound Skin Appearance Dry/Scaly ) -Color (Denisse-wound Skin Appearance) Hemosiderin Staining -Temperature (Denisse-wound Skin No Abnormality Appearance) (Pt Warm) -Tenderness on Palpation (Denisse-wound No Skin Appearance) -Ulcer Cleansing Rinsed/ Irrigated with Saline -Foul Odor after Cleansing No -Anesthetic Used 4% Lidocaine Solution #14 LLat LE -Current Size (cm) - Length 0.1 -Current Size (cm) - Width 0.1 -Current Size (cm) - Depth 0.1 -Total Square Cm 0.01 -Photo Taken No -Exudate Amt None Present -Wound Margin Thickened -Granulation Amt Large (67-100%) -Granulation Quality Red -Necrosis Amt Small (1-33%) -Necrotic Tissue Type Adherent Slough -Texture (Denisse-wound Skin Appearance) Scarring -Moisture (Denisse-wound Skin Appearance Dry/Scaly ) -Color (Denisse-wound Skin Appearance) Hemosiderin Staining -Temperature (Denisse-wound Skin No Abnormality Appearance) (Pt Warm) -Tenderness on Palpation (Denisse-wound No Skin Appearance) -Ulcer Cleansing Rinsed/ Irrigated with Saline -Foul Odor after Cleansing No -Anesthetic Used 4% Lidocaine Solution #7 Lateral RLE -Current Size (cm) - Length 0.1 -Current Size (cm) - Width 0.1 -Current Size (cm) - Depth 0.1 -Total Square Cm 0.01 -Photo Taken No -Exudate Amt None Present -Wound Margin Flat & Intact -Granulation Amt Large (67-100%) -Granulation Quality [place] -Necrosis Amt None Present (0 %) -Structure Exposed N/A -Texture (Denisse-wound Skin Appearance) Scarring -Moisture (Denisse-wound Skin Appearance Dry/Scaly ) -Color (Denisse-wound Skin Appearance) Hemosiderin Staining -Temperature (Denisse-wound Skin No Abnormality Appearance) (Pt Warm) -Tenderness on Palpation (Denisse-wound No Skin Appearance) -Ulcer Cleansing Rinsed/ Irrigated with Saline -Foul Odor after Cleansing No -Anesthetic Used 4% Lidocaine Solution [Edema Assessment] -Right Calf (cm) 27.7 -Right Ankle (cm) 22 -Left Calf (cm) 28.7 -Left Ankle (cm) 22.6 WC - Nurse 2 - General Ulcer CM Notes Start: 10/02/19 11:09 Freq: Status: Active Protocol: Activity Type Activity Date Activity User E-Sign Co-Sign Detail Recorded Client Recorded Date Recorded By Document 10/16/19 11:08 [id number] 10/16/19 11:14 CAMERON 10/16/19 11:08 Wound Center Nurse 2 [Procedure/Treatment] 15-right lateral ankle -Time 11:11 -Correct Patient Yes -Correct Side, Site, Position Yes -Correct Procedure Yes -Procedure Performed Yes -Type of Procedure Debridement -Clinical Debridement Subcutaneous -Post Debridement Size (cm) - Length 1.1 -Post Debridement Size (cm) - Width 0.9 -Post Debridement Size (cm) - Depth 0.1 -Total Square Cm 0.99 -Wound/Ulcer Outcome Not Healed -Ulcer Cleansing Rinsed/ Irrigated with Saline -Foul Odor after Cleansing No -Bioengineered Tissue Yes -Type of bioengineered Tissue EPIFIX -Expiration Date 03/27/24 -Product Lot Number [id number] -Percent Used 100 -Saline Lot Number [id number] -Bleeding Controlled with Pressure -Offloading No -Treatment Response Procedure Tolerated Well #14 LLat LE -Time 11:09 -Correct Patient Yes -Correct Side, Site, Position Yes -Correct Procedure Yes -Procedure Performed Yes -Type of Procedure Debridement -Clinical Debridement Subcutaneous -Post Debridement Size (cm) - Length 0.9 -Post Debridement Size (cm) - Width 0.5 -Post Debridement Size (cm) - Depth 0.1 -Total Square Cm 0.45 -Wound/Ulcer Outcome Not Healed -Ulcer Cleansing Rinsed/ Irrigated with Saline -Foul Odor after Cleansing No -Bioengineered Tissue Yes -Type of bioengineered Tissue EPIFIX -Expiration Date 03/27/24 -Product Lot Number [id number] -Percent Used 100 -Saline Lot Number [id number] -Bleeding Controlled with Pressure -Offloading No -Treatment Response Procedure Tolerated Well #7 Lateral RLE -Time 11:11 -Correct Patient Yes -Correct Side, Site, Position Yes -Correct Procedure Yes -Procedure Performed Yes -Type of Procedure Debridement -Clinical Debridement Subcutaneous -Post Debridement Size (cm) - Length 0.5 -Post Debridement Size (cm) - Width 0.5 -Post Debridement Size (cm) - Depth 0.1 -Total Square Cm 0.25 -Wound/Ulcer Outcome Not Healed -Ulcer Cleansing Rinsed/ Irrigated with Saline -Foul Odor after Cleansing No -Bioengineered Tissue Yes -Type of bioengineered Tissue EPIFIX -Expiration Date 03/27/24 -Product Lot Number [id number] -Percent Used 100 -Saline Lot Number [id number] -Bleeding Controlled with Pressure -Offloading No -Treatment Response Procedure Tolerated Well [See Physician Procedure note for Specifics] Pain Scale: 0-10 Numeric [Pain] -Is Patient Pain Free? Yes Musculoskeletal: No Muscle Wasting, Muscle Wasting Neurological: - - Lack of sensation light touch Psych/Mental Status: Normal Affect, Appropriate Debridement Note Post-Debridement Measurements/Treatment WC - Nurse 2 - General Ulcer CM Notes Start: 10/02/19 11:09 Freq: Status: Active Protocol: Activity Type Activity Date Activity User E-Sign Co-Sign Detail Recorded Client Recorded Date Recorded By Document 10/02/19 12:02 JF [id number] 10/02/19 12:05 JF Document 10/09/19 11:45 DL [id number] 10/09/19 11:49 DL Document 10/16/19 11:08 JF [id number] 10/16/19 11:14 JF 10/02/19 10/09/19 10/16/19 12:02 11:45 11:08 Wound Center Nurse 2 15-right lateral ankle -Time 12:02 11:45 11:11 -Correct Patient Yes Yes Yes -Correct Side, Site, Position Yes Yes Yes -Correct Procedure Yes Yes Yes -Procedure Performed Yes Yes Yes -Type of Procedure Debridement Debridement Debridement -Clinical Debridement Subcutaneous Subcutaneous Subcutaneous -Post Debridement Size (cm) - Length 1.5 0.8 1.1 -Post Debridement Size (cm) - Width 1.5 1.1 0.9 -Post Debridement Size (cm) - Depth 0.1 0.1 0.1 -Total Square Cm 2.25 0.88 0.99 -Wound/Ulcer Outcome Not Healed Not Healed Not Healed -Ulcer Cleansing Rinsed/ Rinsed/ Rinsed/ Irrigated with Irrigated with Irrigated with Saline Saline Saline -Foul Odor after Cleansing No No No -Bioengineered Tissue No No Yes -Type of bioengineered Tissue EPIFIX -Expiration Date 03/27/24 -Product Lot Number [id number] -Percent Used 100 -Saline Lot Number [id number] -Bleeding Controlled with Pressure Pressure Pressure -Offloading No No No -Treatment Response Procedure Procedure Procedure Tolerated Well Tolerated Well Tolerated Well #14 LLat LE -Time 12:02 11:47 11:09 -Correct Patient Yes Yes Yes -Correct Side, Site, Position Yes Yes Yes -Correct Procedure Yes Yes Yes -Procedure Performed Yes Yes Yes -Type of Procedure Debridement Debridement Debridement -Clinical Debridement Subcutaneous Subcutaneous Subcutaneous -Post Debridement Size (cm) - Length 1.1 0.7 0.9 -Post Debridement Size (cm) - Width 1.1 0.6 0.5 -Post Debridement Size (cm) - Depth 0.1 0.1 0.1 -Total Square Cm 1.21 0.42 0.45 -Wound/Ulcer Outcome Not Healed Not Healed Not Healed -Ulcer Cleansing Rinsed/ Rinsed/ Rinsed/ Irrigated with Irrigated with Irrigated with Saline Saline Saline -Foul Odor after Cleansing No No No -Bioengineered Tissue No No Yes -Type of bioengineered Tissue EPIFIX -Expiration Date 03/27/24 -Product Lot Number [id number] -Percent Used 100 -Saline Lot Number [id number] -Bleeding Controlled with Pressure Pressure Pressure -Offloading No No No -Treatment Response Procedure Procedure Procedure Tolerated Well Tolerated Well Tolerated Well #7 Lateral RLE -Time 12:03 11:47 11:11 -Correct Patient Yes Yes Yes -Correct Side, Site, Position Yes Yes Yes -Correct Procedure Yes Yes Yes -Procedure Performed Yes Yes Yes -Type of Procedure Debridement Debridement Debridement -Clinical Debridement Subcutaneous Subcutaneous Subcutaneous -Post Debridement Size (cm) - Length 0.6 1.1 0.5 -Post Debridement Size (cm) - Width 0.5 0.8 0.5 -Post Debridement Size (cm) - Depth 0.1 0.1 0.1 -Total Square Cm 0.30 0.88 0.25 -Wound/Ulcer Outcome Not Healed Not Healed Not Healed -Ulcer Cleansing Rinsed/ Rinsed/ Rinsed/ Irrigated with Irrigated with Irrigated with Saline Saline Saline -Foul Odor after Cleansing No No No -Bioengineered Tissue No Yes Yes -Type of bioengineered Tissue EPIFIX EPIFIX -Expiration Date 03/27/24 03/27/24 -Product Lot Number [id number] -Percent Used 100 100 -Saline Lot Number [id number] -Bleeding Controlled with Pressure Pressure Pressure -Offloading No No No -Treatment Response Procedure Procedure Procedure Tolerated Well Tolerated Well Tolerated Well Pain Scale: 0-10 Numeric Is Patient Pain Free? Yes Yes Yes Wound debrided: lateral leg Laterality: Right Type of Debridement: Excisional debridement Anesthesia Used: 5% Lidocaine Gel Depth: in the subcutaneous layer Percentage of wound debrided: 100 Instrument Used: #15 blade Tissue Removed: fibrous, devitalized subcutaneous, biofilm, slough Severity: Fat Layer Exposed Amount of bleeding with debridement: Mild Bleeding Controlled with: Pressure Patient tolerated procedure well - Additional Wound Wound debrided: lateral ankle Laterality: Right Type of Debridement: Excisional debridement Anesthesia Used: 5% Lidocaine Gel Depth: in the subcutaneous layer Percentage of wound debrided: 100 Instrument Used: #15 blade Tissue Removed: fibrous, devitalized subcutaneous, biofilm, slough Severity: Fat Layer Exposed Amount of bleeding with debridement: Mild Bleeding Controlled with: Pressure Patient tolerated procedure: Patient tolerated procedure well - Additional Wound Wound debrided: lateral leg Laterality: Left Type of Debridement: Excisional debridement Anesthesia Used: 5% Lidocaine Gel Depth: in the subcutaneous layer Percentage of wound debrided: 100 Instrument Used: #15 blade Tissue Removed: fibrous, devitalized subcutaneous, biofilm, slough Severity: Fat Layer Exposed Amount of bleeding with debridement: Mild Bleeding Controlled with: Pressure Patient tolerated procedure: Patient tolerated procedure well Assessment/Plan Active Problems (Last Reviewed 08/13/18 @ 10:19 by Fernando Patterson MD) 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 left leg ulcer, stable no infection, No infection. Right leg ulcer at ankle level, no infection. Paralysis. Bilateral lower extremity edema. Malnutrition Plan: I reviewed his case. Debridement done as documented in the clinical nursing panel above to the right and left legs and right ankle. This procedure was well-tolerated. Continue Aquacel Ag to right ankle. No infection was noted; to monitor. The improvement of the ulcer beds are noted and recommend application of advanced wound healing product, epi-fix. Indication, plan application, and anticipated healing time management were discussed in detail with the patient. He understands and elects to proceed forward. Prior authorization was obtained. This is medically necessary for limb salvage and he has suspected adequate blood flow needed for healing. He has been participating in a comprehensive wound healing plan. Epi fix was applied according center protocol to bilateral leg ulcers. This was further secured with a wound veil and Steri-Strips. Verbal consent was obtained prior to the procedure and he tolerated this well. He was advised to keep this clean, dry, and intact until follow-up next week. To continue strict offloading. We discussed the details of this again today. Do not place anything directly under the wound including pillows as light he was advised. He can do this by placing the pillows around the ulcer site or using a donut pillow. to continue with nutritional supplementation. To continue Tubigrip for edema management. To return to clinic in 1 week or call sooner if he has any questions or concerns. All his questions were answered.
[2019-10-23 11:40] VITALS: BP 128/62; PULSE 62; RESP 18; TEMP 37; BMI 24.3
--- NOTE | 2019-10-23 12:55 | PCM.WC.PN ---
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 right ankle ulcer History of Wound: Mr. Sabillon is an 84-year-old currently being seen in the wound center for lower extremity ulcers. He does not report any redness. He denies fever, chill, nausea, vomiting. He is with his today. he wears tubigrips for edema control. He Epi-fix advanced wound healing product in place to both legs as advised. Progress of Wound: Courtesy consult patient is stable on wounds. Reapplied epi fix #3 with Adaptic and touch and Steri-Strips - Physical Exam Vital Signs Temp Pulse Resp BP 98.6 F 62 18 128/62 H 10/23/19 11:40 10/23/19 11:40 10/23/19 11:40 10/23/19 11:40 General: Oriented x3, Cooperative, Well developed HEENT: Atraumatic, PERRLA Oral: Moist Mucosa Neck: Supple, No JVD Lungs: Clear to auscultation, Normal air movement Cardiovascular: Regular rate, Regular Rhythm Abdomen: Bowel Sounds Present, Soft, Non Tender, No Hepato-splenomegaly Extremities: No clubbing, No edema Wound Measurements and Assessment WC - Nurse 1 - General Ulcer Measurement Start: 10/02/19 11:09 Freq: Status: Active Protocol: Activity Type Activity Date Activity User E-Sign Co-Sign Detail Recorded Client Recorded Date Recorded By Document 10/23/19 11:40 RB [id number] 10/23/19 11:46 RB 10/23/19 11:40 Wound Center Nurse 1 [Ulcer Assessment] 15-right lateral ankle -Combined with other wound No -Current Size (cm) - Length 0.5 -Current Size (cm) - Width 0.6 -Current Size (cm) - Depth 0.1 -Total Square Cm 0.30 -Tunneling No -Undermining/Tunneling No -Circular Undermining No -Exudate Amt Small -Exudate Type Serosanguineous -Wound Margin Flat & Intact -Granulation Amt Medium (34-66%) -Granulation Quality [place] -Slough/Fibrin Yes -Necrosis Amt Medium (34-66%) -Necrotic Tissue Type Adherent Slough -Structure Exposed N/A -Texture (Denisse-wound Skin Appearance) Assessed -Moisture (Denisse-wound Skin Appearance Dry/Scaly ) -Color (Denisse-wound Skin Appearance) Assessed -Temperature ([place]isse-wound Skin No Abnormality Appearance) (Pt Warm) -Tenderness on Palpation (Denisse-wound No Skin Appearance) -Ulcer Cleansing Wound Cleanser -Foul Odor after Cleansing No -Anesthetic Used 4% Lidocaine Solution #14 LLat LE -Combined with other wound No -Current Size (cm) - Length 1.3 -Current Size (cm) - Width 1 -Current Size (cm) - Depth 0.1 -Total Square Cm 1.3 -Tunneling No -Undermining/Tunneling No -Circular Undermining No -Exudate Amt Small -Exudate Type Serosanguineous -Wound Margin Flat & Intact -Granulation Amt Medium (34-66%) -Granulation Quality [place] -Slough/Fibrin Yes -Necrosis Amt Large (67-100%) -Necrotic Tissue Type Adherent Slough -Structure Exposed N/A -Texture (Denisse-wound Skin Appearance) Assessed -Moisture ([place]isse-wound Skin Appearance Dry/Scaly ) -Color (Denisse-wound Skin Appearance) Assessed -Temperature ([place]isse-wound Skin No Abnormality Appearance) (Pt Warm) -Tenderness on Palpation (Denisse-wound No Skin Appearance) -Ulcer Cleansing Wound Cleanser -Foul Odor after Cleansing No -Anesthetic Used 4% Lidocaine Solution #7 Lateral RLE -Combined with other wound No -Current Size (cm) - Length 0.1 -Current Size (cm) - Width 0.1 -Current Size (cm) - Depth 0.1 -Total Square Cm 0.01 -Tunneling No -Undermining/Tunneling No -Circular Undermining No -Exudate Amt Small -Exudate Type Serosanguineous -Wound Margin Flat & Intact -Granulation Amt Medium (34-66%) -Granulation Quality [place],Red -Slough/Fibrin Yes -Necrosis Amt Medium (34-66%) -Structure Exposed N/A -Texture (Denisse-wound Skin Appearance) Assessed -Moisture (Denisse-wound Skin Appearance Assessed,Dry/ ) Scaly -Color (Denisse-wound Skin Appearance) Assessed -Temperature ([place]isse-wound Skin No Abnormality Appearance) (Pt Warm) -Tenderness on Palpation (Denisse-wound No Skin Appearance) -Ulcer Cleansing Wound Cleanser -Foul Odor after Cleansing No -Anesthetic Used 4% Lidocaine Solution [Edema Assessment] -Lower Limb Edema Present Yes -Right Calf (cm) 25.5 -Right Ankle (cm) 19.5 -Point of measurement (cm from the 28.7 medial instep) -Point of Measurement (cm from the 20.9 medial instep) WC - Nurse 2 - General Ulcer CM Notes Start: 10/02/19 11:09 Freq: Status: Active Protocol: Activity Type Activity Date Activity User E-Sign Co-Sign Detail Recorded Client Recorded Date Recorded By Document 10/23/19 12:16 CAMERON [id number] 10/23/19 12:33 CAMERON 10/23/19 12:16 Wound Center Nurse 2 [Procedure/Treatment] 15-right lateral ankle -Time 12:29 -Correct Patient Yes -Correct Side, Site, Position Yes -Correct Procedure Yes -Procedure Performed Yes -Type of Procedure Debridement -Clinical Debridement Subcutaneous -Post Debridement Size (cm) - Length 0.8 -Post Debridement Size (cm) - Width 1.5 -Post Debridement Size (cm) - Depth 0.1 -Total Square Cm 1.20 -Wound/Ulcer Outcome Not Healed -Ulcer Cleansing Rinsed/ Irrigated with Saline -Foul Odor after Cleansing No -Bioengineered Tissue Yes -Type of bioengineered Tissue EPIFIX -Expiration Date 03/27/24 -Product Lot Number [id number] -Percent Used 100 -Saline Lot Number [id number] -Bleeding Controlled with Pressure -Offloading No -Treatment Response Procedure Tolerated Well #14 LLat LE -Time 12:30 -Correct Patient Yes -Correct Side, Site, Position Yes -Correct Procedure Yes -Procedure Performed Yes -Type of Procedure Debridement -Clinical Debridement Subcutaneous -Post Debridement Size (cm) - Length 0.8 -Post Debridement Size (cm) - Width 0.5 -Post Debridement Size (cm) - Depth 0.1 -Total Square Cm 0.40 -Wound/Ulcer Outcome Not Healed -Ulcer Cleansing Rinsed/ Irrigated with Saline -Foul Odor after Cleansing No -Bioengineered Tissue Yes -Type of bioengineered Tissue EPIFIX -Expiration Date 03/27/24 -Product Lot Number [id number] -Percent Used 100 -Saline Lot Number [id number] -Bleeding Controlled with Pressure -Offloading No -Treatment Response Procedure Tolerated Well #7 Lateral RLE -Time 12:17 -Correct Patient Yes -Correct Side, Site, Position Yes -Correct Procedure Yes -Procedure Performed Yes -Type of Procedure Debridement -Clinical Debridement Subcutaneous -Post Debridement Size (cm) - Length 1 -Post Debridement Size (cm) - Width 0.4 -Post Debridement Size (cm) - Depth 0.1 -Total Square Cm 0.4 -Wound/Ulcer Outcome Not Healed -Ulcer Cleansing Rinsed/ Irrigated with Saline -Foul Odor after Cleansing No -Bioengineered Tissue Yes -Type of bioengineered Tissue EPIFIX -Expiration Date 03/27/24 -Product Lot Number [id number] -Percent Used 100 -Saline Lot Number [id number] -Bleeding Controlled with Pressure -Offloading No -Treatment Response Procedure Tolerated Well [See Physician Procedure note for Specifics] Pain Scale: 0-10 Numeric [Pain] -Is Patient Pain Free? Yes Musculoskeletal: No Tenderness to Palpation of Joints or Extremities Lymphatic: No Cervical, Supraclavicular, or Inguinal Adenopathy Neurological: Cranial nerves II-XII grossly intact, Neuro grossly intact Psych/Mental Status: Normal Affect, Appropriate Debridement Note Post-Debridement Measurements/Treatment WC - Nurse 2 - General Ulcer CM Notes Start: 10/02/19 11:09 Freq: Status: Active Protocol: Activity Type Activity Date Activity User E-Sign Co-Sign Detail Recorded Client Recorded Date Recorded By Document 10/02/19 12:02 CAMERON [id number] 10/02/19 12:05 JF Document 10/09/19 11:45 DL [id number] 10/09/19 11:49 DL Document 10/16/19 11:08 JF [id number] 10/16/19 11:14 JF Document 10/23/19 12:16 JF [id number] 10/23/19 12:33 JF 10/02/19 10/09/19 10/16/19 12:02 11:45 11:08 Wound Center Nurse 2 15-right lateral ankle -Time 12:02 11:45 11:11 -Correct Patient Yes Yes Yes -Correct Side, Site, Position Yes Yes Yes -Correct Procedure Yes Yes Yes -Procedure Performed Yes Yes Yes -Type of Procedure Debridement Debridement Debridement -Clinical Debridement Subcutaneous Subcutaneous Subcutaneous -Post Debridement Size (cm) - Length 1.5 0.8 1.1 -Post Debridement Size (cm) - Width 1.5 1.1 0.9 -Post Debridement Size (cm) - Depth 0.1 0.1 0.1 -Total Square Cm 2.25 0.88 0.99 -Wound/Ulcer Outcome Not Healed Not Healed Not Healed -Ulcer Cleansing Rinsed/ Rinsed/ Rinsed/ Irrigated with Irrigated with Irrigated with Saline Saline Saline -Foul Odor after Cleansing No No No -Bioengineered Tissue No No Yes -Type of bioengineered Tissue EPIFIX -Expiration Date 03/27/24 -Product Lot Number [id number] -Percent Used 100 -Saline Lot Number [id number] -Bleeding Controlled with Pressure Pressure Pressure -Offloading No No No -Treatment Response Procedure Procedure Procedure Tolerated Well Tolerated Well Tolerated Well #14 LLat LE -Time 12:02 11:47 11:09 -Correct Patient Yes Yes Yes -Correct Side, Site, Position Yes Yes Yes -Correct Procedure Yes Yes Yes -Procedure Performed Yes Yes Yes -Type of Procedure Debridement Debridement Debridement -Clinical Debridement Subcutaneous Subcutaneous Subcutaneous -Post Debridement Size (cm) - Length 1.1 0.7 0.9 -Post Debridement Size (cm) - Width 1.1 0.6 0.5 -Post Debridement Size (cm) - Depth 0.1 0.1 0.1 -Total Square Cm 1.21 0.42 0.45 -Wound/Ulcer Outcome Not Healed Not Healed Not Healed -Ulcer Cleansing Rinsed/ Rinsed/ Rinsed/ Irrigated with Irrigated with Irrigated with Saline Saline Saline -Foul Odor after Cleansing No No No -Bioengineered Tissue No No Yes -Type of bioengineered Tissue EPIFIX -Expiration Date 03/27/24 -Product Lot Number [id number] -Percent Used 100 -Saline Lot Number [id number] -Bleeding Controlled with Pressure Pressure Pressure -Offloading No No No -Treatment Response Procedure Procedure Procedure Tolerated Well Tolerated Well Tolerated Well #7 Lateral RLE -Time 12:03 11:47 11:11 -Correct Patient Yes Yes Yes -Correct Side, Site, Position Yes Yes Yes -Correct Procedure Yes Yes Yes -Procedure Performed Yes Yes Yes -Type of Procedure Debridement Debridement Debridement -Clinical Debridement Subcutaneous Subcutaneous Subcutaneous -Post Debridement Size (cm) - Length 0.6 1.1 0.5 -Post Debridement Size (cm) - Width 0.5 0.8 0.5 -Post Debridement Size (cm) - Depth 0.1 0.1 0.1 -Total Square Cm 0.30 0.88 0.25 -Wound/Ulcer Outcome Not Healed Not Healed Not Healed -Ulcer Cleansing Rinsed/ Rinsed/ Rinsed/ Irrigated with Irrigated with Irrigated with Saline Saline Saline -Foul Odor after Cleansing No No No -Bioengineered Tissue No Yes Yes -Type of bioengineered Tissue EPIFIX EPIFIX -Expiration Date 03/27/24 03/27/24 -Product Lot Number [id number] -Percent Used 100 100 -Saline Lot Number [id number] -Bleeding Controlled with Pressure Pressure Pressure -Offloading No No No -Treatment Response Procedure Procedure Procedure Tolerated Well Tolerated Well Tolerated Well Pain Scale: 0-10 Numeric Is Patient Pain Free? Yes Yes Yes 10/23/19 12:16 Wound Center Nurse 2 15-right lateral ankle -Time 12:29 -Correct Patient Yes -Correct Side, Site, Position Yes -Correct Procedure Yes -Procedure Performed Yes -Type of Procedure Debridement -Clinical Debridement Subcutaneous -Post Debridement Size (cm) - Length 0.8 -Post Debridement Size (cm) - Width 1.5 -Post Debridement Size (cm) - Depth 0.1 -Total Square Cm 1.20 -Wound/Ulcer Outcome Not Healed -Ulcer Cleansing Rinsed/ Irrigated with Saline -Foul Odor after Cleansing No -Bioengineered Tissue Yes -Type of bioengineered Tissue EPIFIX -Expiration Date 03/27/24 -Product Lot Number [id number] -Percent Used 100 -Saline Lot Number [id number] -Bleeding Controlled with Pressure -Offloading No -Treatment Response Procedure Tolerated Well #14 LLat LE -Time 12:30 -Correct Patient Yes -Correct Side, Site, Position Yes -Correct Procedure Yes -Procedure Performed Yes -Type of Procedure Debridement -Clinical Debridement Subcutaneous -Post Debridement Size (cm) - Length 0.8 -Post Debridement Size (cm) - Width 0.5 -Post Debridement Size (cm) - Depth 0.1 -Total Square Cm 0.40 -Wound/Ulcer Outcome Not Healed -Ulcer Cleansing Rinsed/ Irrigated with Saline -Foul Odor after Cleansing No -Bioengineered Tissue Yes -Type of bioengineered Tissue EPIFIX -Expiration Date 03/27/24 -Product Lot Number [id number] -Percent Used 100 -Saline Lot Number [id number] -Bleeding Controlled with Pressure -Offloading No -Treatment Response Procedure Tolerated Well #7 Lateral RLE -Time 12:17 -Correct Patient Yes -Correct Side, Site, Position Yes -Correct Procedure Yes -Procedure Performed Yes -Type of Procedure Debridement -Clinical Debridement Subcutaneous -Post Debridement Size (cm) - Length 1 -Post Debridement Size (cm) - Width 0.4 -Post Debridement Size (cm) - Depth 0.1 -Total Square Cm 0.4 -Wound/Ulcer Outcome Not Healed -Ulcer Cleansing Rinsed/ Irrigated with Saline -Foul Odor after Cleansing No -Bioengineered Tissue Yes -Type of bioengineered Tissue EPIFIX -Expiration Date 03/27/24 -Product Lot Number [id number] -Percent Used 100 -Saline Lot Number [id number] -Bleeding Controlled with Pressure -Offloading No -Treatment Response Procedure Tolerated Well Pain Scale: 0-10 Numeric Is Patient Pain Free? Yes Wound debrided: Right lateral ankle Type of Debridement: Excisional debridement Anesthesia Used: 5% Lidocaine Gel Depth: Down to and including healthy tissue, in the subcutaneous layer Percentage of wound debrided: 100 Instrument Used: 5mm curette Tissue Removed: Fibrin and devitalized tissue Severity: Limited To Skin Breakdown Amount of bleeding with debridement: Mild Bleeding Controlled with: Pressure Patient tolerated procedure well - Additional Wound Wound debrided: Right lateral lower leg Type of Debridement: Excisional debridement Anesthesia Used: 5% Lidocaine Gel Depth: Down to and including healthy tissue, in the subcutaneous layer Percentage of wound debrided: 100 Instrument Used: 5mm curette Tissue Removed: Fibrin Severity: Limited To Skin Breakdown Amount of bleeding with debridement: Mild Bleeding Controlled with: Pressure Patient tolerated procedure: Patient tolerated procedure well - Additional Wound Wound debrided: Left lateral lower leg Type of Debridement: Excisional debridement Anesthesia Used: 5% Lidocaine Gel Depth: Down to and including healthy tissue, in the subcutaneous layer Percentage of wound debrided: 100 Instrument Used: 5mm curette Severity: Limited To Skin Breakdown Amount of bleeding with debridement: Mild Bleeding Controlled with: Pressure Patient tolerated procedure: Patient tolerated procedure well Assessment/Plan Active Problems (Last Reviewed 08/13/18 @ 10:19 by Fernando Patterson MD) 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 left leg ulcer, stable no infection, No infection. Right leg ulcer at ankle level, no infection. Paralysis. Bilateral lower extremity edema. Malnutrition Plan: I reviewed his case. Debridement done as documented in the clinical nursing panel above to the right and left legs and right ankle. Prefix #3 applied to all areas covered with Adaptic touch Steri-Strips gauze dressings. To follow-up with Dr. Peñaloza next week
== END 2019-10-26 23:59 ==
LOC: WC 11:45
PROVIDERS: Family Provider Family Medicine; PCP Family Medicine; Referring Provider Podiatrist; Visit Provider Podiatrist
DX: L97.312 Non-pressure chronic ulcer of right ankle with fat layer exposed (principal); L97.812 Non-pressure chronic ulcer of other part of right lower leg with fat layer exposed; R60.0 Localized edema; G83.9 Paralytic syndrome, unspecified; L97.822 Non-pressure chronic ulcer of other part of left lower leg with fat layer exposed
CPT/HCPCS: 11042; 15271; Q4186

== ENCOUNTER 2019-11-13 11:00 | Outpatient (RCR) | payer MEDICARE, OTHER, SELFPAY ==
[2019-10-27 00:30] VITALS: BP 128/62; PULSE 62; RESP 18; TEMP 37
[2019-10-30 11:20] VITALS: BP 123/65; PULSE 61; RESP 18; TEMP 36.6; BMI 24.3
--- NOTE | 2019-10-30 15:26 | PCM.WC.PN ---
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 Code(s): L97.922 - Non-pressure chronic ulcer of unspecified part of left lower leg with fat layer exposed (2) Malnutrition Status: Chronic Code(s): E46 - Unspecified protein-calorie malnutrition (3) Delayed wound healing Status: Chronic Code(s): T14.8XXD - Other injury of unspecified body region, subsequent encounter (4) Edema leg Status: Chronic Code(s): R60.0 - Localized edema (5) Paralysis Status: Chronic Code(s): G83.9 - Paralytic syndrome, unspecified (6) Ulcer of right lower extremity with fat layer exposed Status: Resolved Code(s): L97.912 - Non-pressure chronic ulcer of unspecified part of right lower leg with fat layer exposed Comment: lateral ankle and also new anterior leg ulcer Type of Wound Date of Service: 10/30/19 Chief Complaint: right leg ulcer and left leg ulcers. right ankle ulcer History of Wound: Mr. Sabillon is an 84-year-old currently being seen in the wound center for lower extremity ulcers. He does not report any redness. He denies fever, chill, nausea, vomiting. He is with his today. he wears tubigrips for edema control. He Epi-fix advanced wound healing product in place to both legs as advised. Progress of Wound: Improving left. Healed right - Physical Exam Vital Signs Temp Pulse Resp BP 98 F 61 18 123/65 H 10/30/19 11:20 10/30/19 11:20 10/30/19 11:20 10/30/19 11:20 General: Alert, Oriented x3, Cooperative, No apparent distress Extremities: No cyanosis, Capillary Refill Less than 3 Seconds, No Calf Tenderness, Diminished Peripheral Pulses, Edema Skin: Ulcer/ Wound - No purulence, erythema, string, odor, infection. Peripheral skin is atrophic and hairless. There is full epithelialization noted to both prior ulcer sites on the right ankle and leg and these ulcer sites are healed. There is reduction of size to the ulcer in the left lateral leg Wound Measurements and Assessment WC - Nurse 1 - General Ulcer Measurement Start: 10/30/19 11:19 Freq: Status: Active Protocol: Activity Type Activity Date Activity User E-Sign Co-Sign Detail Recorded Client Recorded Date Recorded By Document 10/30/19 11:20 DL [id number] 10/30/19 11:30 DL 10/30/19 11:20 Wound Center Nurse 1 [Ulcer Assessment] 15-right lateral ankle -Current Size (cm) - Length 0.6 -Current Size (cm) - Width 0.4 -Current Size (cm) - Depth 0.1 -Total Square Cm 0.24 -Photo Taken No -Exudate Amt Small -Exudate Type Serosanguineous -Wound Margin Distinct, Outline Attached -Granulation Amt Small (1-33%) -Granulation Quality [place] -Necrosis Amt Small (1-33%) -Necrotic Tissue Type Adherent Slough -Structure Exposed N/A -Texture (Denisse-wound Skin Appearance) Scarring -Moisture (Denisse-wound Skin Appearance Dry/Scaly ) -Color (Denisse-wound Skin Appearance) Hemosiderin Staining -Temperature (Denisse-wound Skin No Abnormality Appearance) (Pt Warm) -Tenderness on Palpation ([place]-wound No Skin Appearance) -Ulcer Cleansing Wound Cleanser -Foul Odor after Cleansing No -Anesthetic Used 4% Lidocaine Solution #14 LLat LE -Current Size (cm) - Length 0.3 -Current Size (cm) - Width 0.4 -Current Size (cm) - Depth 0.1 -Total Square Cm 0.12 -Photo Taken No -Exudate Amt Small -Exudate Type Serosanguineous -Wound Margin Distinct, Outline Attached -Granulation Amt Large (67-100%) -Granulation Quality [place] -Necrosis Amt Small (1-33%) -Necrotic Tissue Type Adherent Slough -Structure Exposed N/A -Texture (Denisse-wound Skin Appearance) Scarring -Moisture (Denisse-wound Skin Appearance Dry/Scaly ) -Color (Denisse-wound Skin Appearance) Hemosiderin Staining -Temperature (Denisse-wound Skin No Abnormality Appearance) (Pt Warm) -Tenderness on Palpation (Denisse-wound No Skin Appearance) -Ulcer Cleansing Wound Cleanser -Foul Odor after Cleansing No -Anesthetic Used 4% Lidocaine Solution #7 Lateral RLE -Current Size (cm) - Length 0.1 -Current Size (cm) - Width 0.1 -Current Size (cm) - Depth 0.1 -Total Square Cm 0.01 -Photo Taken No -Exudate Amt None Present -Wound Margin Thickened -Granulation Amt None Present (0 %) -Necrosis Amt Small (1-33%) -Necrotic Tissue Type Adherent Slough -Structure Exposed N/A -Texture (Denisse-wound Skin Appearance) Scarring -Moisture (Denisse-wound Skin Appearance Dry/Scaly ) -Color (Denisse-wound Skin Appearance) Hemosiderin Staining -Temperature (Denisse-wound Skin No Abnormality Appearance) (Pt Warm) -Tenderness on Palpation (Denisse-wound No Skin Appearance) -Ulcer Cleansing Wound Cleanser -Foul Odor after Cleansing No -Anesthetic Used 4% Lidocaine Solution [Edema Assessment] -Right Calf (cm) 28.4 -Right Ankle (cm) 21 -Left Calf (cm) 26 -Left Ankle (cm) 20 WC - Nurse 2 - General Ulcer CM Notes Start: 10/30/19 11:19 Freq: Status: Active Protocol: Activity Type Activity Date Activity User E-Sign Co-Sign Detail Recorded Client Recorded Date Recorded By Document 10/30/19 11:45 DL [id number] 10/30/19 11:49 DL 10/30/19 11:45 Wound Center Nurse 2 [Procedure/Treatment] 15-right lateral ankle -Time 11:47 -Correct Patient No -Correct Side, Site, Position No -Correct Procedure No -Procedure Performed No -Post Debridement Size (cm) - Length 0.1 -Post Debridement Size (cm) - Width 0.1 -Post Debridement Size (cm) - Depth 0.1 -Total Square Cm 0.01 -Wound/Ulcer Outcome Not Healed -Ulcer Cleansing Rinsed/ Irrigated with Saline -Foul Odor after Cleansing No #14 LLat LE -Time 11:47 -Correct Patient Yes -Correct Side, Site, Position Yes -Correct Procedure Yes -Procedure Performed Yes -Type of Procedure Debridement -Clinical Debridement Subcutaneous -Post Debridement Size (cm) - Length 0.4 -Post Debridement Size (cm) - Width 0.4 -Post Debridement Size (cm) - Depth 0.1 -Total Square Cm 0.16 -Wound/Ulcer Outcome Not Healed -Ulcer Cleansing Rinsed/ Irrigated with Saline -Foul Odor after Cleansing No -Bioengineered Tissue No -Bleeding Controlled with Pressure -Offloading No -Treatment Response Procedure Tolerated Well #7 Lateral RLE -Correct Patient No -Correct Side, Site, Position No -Correct Procedure No -Procedure Performed No -Post Debridement Size (cm) - Length 0 -Post Debridement Size (cm) - Width 0 -Post Debridement Size (cm) - Depth 0 -Total Square Cm 0 -Wound/Ulcer Outcome Healed- Epithelialized [See Physician Procedure note for Specifics] Pain Scale: 0-10 Numeric [Pain] -Is Patient Pain Free? Yes Musculoskeletal: No Tenderness to Palpation of Joints or Extremities, Muscle Wasting, - - Bilateral lower extremity paralysis Neurological: - - Lack of normal epicritic sensation light touch is consistent with neuropathy Psych/Mental Status: Normal Affect, Appropriate Debridement Note Post-Debridement Measurements/Treatment WC - Nurse 2 - General Ulcer CM Notes Start: 10/30/19 11:19 Freq: Status: Active Protocol: Activity Type Activity Date Activity User E-Sign Co-Sign Detail Recorded Client Recorded Date Recorded By Document 10/30/19 11:45 DL [id number] 10/30/19 11:49 DL 10/30/19 11:45 Wound Center Nurse 2 15-right lateral ankle -Time 11:47 -Correct Patient No -Correct Side, Site, Position No -Correct Procedure No -Procedure Performed No -Post Debridement Size (cm) - Length 0.1 -Post Debridement Size (cm) - Width 0.1 -Post Debridement Size (cm) - Depth 0.1 -Total Square Cm 0.01 -Wound/Ulcer Outcome Not Healed -Ulcer Cleansing Rinsed/ Irrigated with Saline -Foul Odor after Cleansing No #14 LLat LE -Time 11:47 -Correct Patient Yes -Correct Side, Site, Position Yes -Correct Procedure Yes -Procedure Performed Yes -Type of Procedure Debridement -Clinical Debridement Subcutaneous -Post Debridement Size (cm) - Length 0.4 -Post Debridement Size (cm) - Width 0.4 -Post Debridement Size (cm) - Depth 0.1 -Total Square Cm 0.16 -Wound/Ulcer Outcome Not Healed -Ulcer Cleansing Rinsed/ Irrigated with Saline -Foul Odor after Cleansing No -Bioengineered Tissue No -Bleeding Controlled with Pressure -Offloading No -Treatment Response Procedure Tolerated Well #7 Lateral RLE -Correct Patient No -Correct Side, Site, Position No -Correct Procedure No -Procedure Performed No -Post Debridement Size (cm) - Length 0 -Post Debridement Size (cm) - Width 0 -Post Debridement Size (cm) - Depth 0 -Total Square Cm 0 -Wound/Ulcer Outcome Healed- Epithelialized Pain Scale: 0-10 Numeric Is Patient Pain Free? Yes Wound debrided: lateral leg Laterality: Left Type of Debridement: Excisional debridement Anesthesia Used: 5% Lidocaine Gel Depth: in the subcutaneous layer Percentage of wound debrided: 100 Instrument Used: #15 blade Tissue Removed: fibrous, devitalized subcutaneous, biofilm, slough Severity: Fat Layer Exposed Amount of bleeding with debridement: Mild Bleeding Controlled with: Pressure Patient tolerated procedure well Assessment/Plan Assessment: Right leg ulcer healed. Right leg ulcer healed. Left leg ulcer with fat layer exposed, no infection. Paralysis. Bilateral lower extremity edema. Malnutrition Plan: I reviewed his case. Debridement done as documented in the clinical nursing panel above to the left leg. To change dressing daily with hydrogel. The ulcers on the right lower extremity have healed and additional dressings are not required. His skin is very friable and he is advised to maintain appropriate offloading and edema. To take nutritional supplementation to optimize healing. He was reassured no local signs of infection are noted. It is noted he also had prior arterial work-up and no intervention is recommended. To return to the wound healing center 1 week or call sooner if you have any questions or concerns.
[2019-11-06 10:50] VITALS: BP 150/78; PULSE 67; RESP 18; TEMP 36; BMI 24.3
--- NOTE | 2019-11-06 13:00 | PN.PCM_ITS ---
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 (2) Malnutrition Status: Chronic Current Visit: Yes Code(s): E46 - Unspecified protein- calorie malnutrition (3) Delayed wound healing Status: Chronic Current Visit: Yes Code(s): T14.8XXD - Other injury of unspecified body region, subsequent encounter (4) Edema leg Status: Chronic Current Visit: Yes Code(s): R60.0 - Localized edema (5) Paralysis Status: Chronic Current Visit: Yes Code(s): G83.9 - Paralytic syndrome, unspecified (6) Ulcer of right lower extremity with fat layer exposed Status: Resolved Current Visit: Yes Code(s): L97.912 - Non-pressure chronic ulcer of unspecified part of right lower leg with fat layer exposed Comment: lateral ankle and also new anterior leg ulcer Type of Wound Date of Service: 11/06/19 Chief Complaint: left leg ulcers. right ankle ulcer History of Wound: Mr. Sabillon is an 84-year-old currently being seen in the wound center for lower extremity ulcers. He does not report any redness. He denies fever, chill, nausea, vomiting. He is with his today. he wears tubigrips for edema control. He had a prior course of epi-fix and is doing w ell. He is applied hydrogel to the ulcer on the left leg this past week. He noted new drainage has returned to the right ankle level. Progress of Wound: Improving left. Returned right - Physical Exam Vital Signs Temp Pulse Resp BP 96.8 F L 67 18 150/78 H 11/06/19 10:50 11/06/19 10:50 11/06/19 10:50 11/06/19 10:50 General: Alert, Oriented x3, Cooperative, No apparent distress Extremities: No cyanosis, Capillary Refill Less than 3 Seconds, No Calf Tenderness, Diminished Peripheral Pulses, Edema, - - Paralysis bilateral lower extremity. Wheelchair noted Skin: Ulcer/ Wound - No purulence, erythema, string, odor, infection. The left leg ulcer site is very superficial with skin discontinuity only. Peripheral atrophic hairless and slightly hyperpigmented skin is consistent with last visit. There is a new skin discontinuity with fat layer exposed to the right lateral malleolus ankle level site. The proximal right lateral leg ulcer sites remain healed Wound Measurements and Assessment WC - Nurse 1 - General Ulcer Measurement Start: 10/30/19 11:19 Freq: Status: Active Protocol: Activity Type Activity Date Activity User E-Sign Co-Sign Detail Recorded Client Recorded Date Recorded By Document 11/06/19 10:50 DL [id number] 11/06/19 11:00 DL 11/06/19 10:50 Wound Center Nurse 1 [Ulcer Assessment] 15-right lateral ankle -Current Size (cm) - Length 0.2 -Current Size (cm) - Width 0.2 -Current Size (cm) - Depth 0.1 -Total Square Cm 0.04 -Photo Taken No -Exudate Amt None Present -Wound Margin Flat & Intact -Granulation Amt Small (1-33%) -Granulation Quality [place] -Necrosis Amt None Present (0 %) -Structure Exposed N/A -Texture (Denisse-wound Skin Appearance) Scarring -Moisture (Denisse-wound Skin Appearance Dry/Scaly ) -Color (Denisse-wound Skin Appearance) Hemosiderin Staining -Temperature (Denisse-wound Skin No Abnormality Appearance) (Pt Warm) -Tenderness on Palpation (Denisse-wound No Skin Appearance) -Ulcer Cleansing Rinsed/ Irrigated with Saline -Foul Odor after Cleansing No -Anesthetic Used 5% Lidocaine Gel #14 LLat LE -Current Size (cm) - Length 0.1 -Current Size (cm) - Width 0.1 -Current Size (cm) - Depth 0.1 -Total Square Cm 0.01 -Photo Taken No -Exudate Amt None Present -Wound Margin Flat & Intact -Granulation Amt Medium (34-66%) -Granulation Quality [place] -Necrosis Amt Large (67-100%) -Necrotic Tissue Type Adherent Slough -Structure Exposed N/A -Texture (Denisse-wound Skin Appearance) Scarring -Moisture (Denisse-wound Skin Appearance Dry/Scaly ) -Color (Denisse-wound Skin Appearance) Hemosiderin Staining -Temperature (Denisse-wound Skin No Abnormality Appearance) (Pt Warm) -Tenderness on Palpation (Denisse-wound No Skin Appearance) -Ulcer Cleansing Wound Cleanser -Foul Odor after Cleansing No -Anesthetic Used 5% Lidocaine Gel [Edema Assessment] -Right Calf (cm) 27.3 -Right Ankle (cm) 25 -Left Calf (cm) 29.5 -Left Ankle (cm) 22.5 WC - Nurse 2 - General Ulcer CM Notes Start: 10/30/19 11:19 Freq: Status: Active Protocol: Activity Type Activity Date Activity User E-Sign Co-Sign Detail Recorded Client Recorded Date Recorded By Document 11/06/19 11:15 JF [id number] 11/06/19 11:17 11/06/19 11:15 Wound Center Nurse 2 [Procedure/Treatment] 15-right lateral ankle -Time 11:15 -Correct Patient Yes -Correct Side, Site, Position Yes -Correct Procedure Yes -Procedure Performed Yes -Type of Procedure Debridement -Clinical Debridement Subcutaneous -Post Debridement Size (cm) - Length 0.3 -Post Debridement Size (cm) - Width 0.2 -Post Debridement Size (cm) - Depth 0.1 -Total Square Cm 0.06 -Wound/Ulcer Outcome Not Healed -Ulcer Cleansing Rinsed/ Irrigated with Saline -Foul Odor after Cleansing No -Bioengineered Tissue No -Bleeding Controlled with Pressure -Offloading No -Treatment Response Procedure Tolerated Well #14 LLat LE -Time 11:16 -Correct Patient Yes -Correct Side, Site, Position Yes -Correct Procedure Yes -Procedure Performed Yes -Type of Procedure Debridement -Clinical Debridement Selective -Post Debridement Size (cm) - Length 0.2 -Post Debridement Size (cm) - Width 0.1 -Post Debridement Size (cm) - Depth 0.1 -Total Square Cm 0.02 -Wound/Ulcer Outcome Not Healed -Ulcer Cleansing Rinsed/ Irrigated with Saline -Foul Odor after Cleansing No -Bioengineered Tissue No -Bleeding Controlled with Pressure -Offloading No -Treatment Response Procedure Tolerated Well [See Physician Procedure note for Specifics] Pain Scale: 0-10 Numeric [Pain] -Is Patient Pain Free? Yes Musculoskeletal: No Tenderness to Palpation of Joints or Extremities, Muscle Wasting Neurological: - - Lack of normal epicritic sensation light touch consistent with neuropathy status Psych/Mental Status: Normal Affect, Appropriate Debridement Note Post-Debridement Measurements/Treatment WC - Nurse 2 - General Ulcer CM Notes Start: 10/30/19 11:19 Freq: Status: Active Protocol: Activity Type Activity Date Activity User E-Sign Co-Sign Detail Recorded Client Recorded Date Recorded By Document 10/30/19 11:45 DL [id number] 10/30/19 11:49 DL Document 11/06/19 11:15 JF [id number] 11/06/19 11:17 JF 10/30/19 11/06/19 11:45 11:15 Wound Center Nurse 2 15-right lateral ankle -Time 11:47 11:15 -Correct Patient No Yes -Correct Side, Site, Position No Yes -Correct Procedure No Yes -Procedure Performed No Yes -Type of Procedure Debridement -Clinical Debridement Subcutaneous -Post Debridement Size (cm) - Length 0.1 0.3 -Post Debridement Size (cm) - Width 0.1 0.2 -Post Debridement Size (cm) - Depth 0.1 0.1 -Total Square Cm 0.01 0.06 -Wound/Ulcer Outcome Not Healed Not Healed -Ulcer Cleansing Rinsed/ Rinsed/ Irrigated with Irrigated with Saline Saline -Foul Odor after Cleansing No No -Bioengineered Tissue No -Bleeding Controlled with Pressure -Offloading No -Treatment Response Procedure Tolerated Well #14 LLat LE -Time 11:47 11:16 -Correct Patient Yes Yes -Correct Side, Site, Position Yes Yes -Correct Procedure Yes Yes -Procedure Performed Yes Yes -Type of Procedure Debridement Debridement -Clinical Debridement Subcutaneous Selective -Post Debridement Size (cm) - Length 0.4 0.2 -Post Debridement Size (cm) - Width 0.4 0.1 -Post Debridement Size (cm) - Depth 0.1 0.1 -Total Square Cm 0.16 0.02 -Wound/Ulcer Outcome Not Healed Not Healed -Ulcer Cleansing Rinsed/ Rinsed/ Irrigated with Irrigated with Saline Saline -Foul Odor after Cleansing No No -Bioengineered Tissue No No -Bleeding Controlled with Pressure Pressure -Offloading No No -Treatment Response Procedure Procedure Tolerated Well Tolerated Well #7 Lateral RLE -Correct Patient No -Correct Side, Site, Position No -Correct Procedure No -Procedure Performed No -Post Debridement Size (cm) - Length 0 -Post Debridement Size (cm) - Width 0 -Post Debridement Size (cm) - Depth 0 -Total Square Cm 0 -Wound/Ulcer Outcome Healed- Epithelialized Pain Scale: 0-10 Numeric Is Patient Pain Free? Yes Yes Wound debrided: lateral ankle Laterality: Right Type of Debridement: Excisional debridement Anesthesia Used: 5% Lidocaine Gel Depth: in the subcutaneous layer Percentage of wound debrided: 100 Instrument Used: #15 blade Tissue Removed: fibrous, devitalized subcutaneous, biofilm, slough Severity: Fat Layer Exposed Amount of bleeding with debridement: Mild Bleeding Controlled with: Pressure Patient tolerated procedure well - Additional Wound Wound debrided: lateral leg Laterality: Left Type of Debridement: Excisional debridement Anesthesia Used: 5% Lidocaine Gel Depth: in the subcutaneous layer Percentage of wound debrided: 100 Instrument Used: #15 blade Tissue Removed: fibrous, devitalized subcutaneous, biofilm, slough Severity: Fat Layer Exposed Amount of bleeding with debridement: Mild Bleeding Controlled with: Pressure Patient tolerated procedure: Patient tolerated procedure well Assessment/Plan Active Problems (Last Reviewed 08/13/18 @ 10:19 by Fernando Patterson MD) Ulcer of left lower extremity with fat layer exposed (Chronic) Malnutrition (Chronic) Delayed wound healing (Chronic) Edema leg (Chronic) Paralysis (Chronic) Assessment: Right leg/lateral ankle ulcer healed. Left leg ulcer with fat layer exposed, no infection. Paralysis. Bilateral lower extremity edema. Malnutrition Plan: I reviewed his case. Debridement done as documented in the clinical nursing panel above to the left leg. To change dressing daily with hydrogel. The ulcers on the right lower extremity have healed and additional dressings are not required. His skin is very friable and he is advised to maintain appropriate offloading and edema. To take nutritional supplementation to optimize healing. He was reassured no local signs of infection are noted. It is noted he also had prior arterial work-up and no intervention is recommended. To return to the wound healing center 1 week or call sooner if you have any questions or concerns.
[2019-11-13 10:54] VITALS: BP 155/76; PULSE 65; RESP 16; TEMP 36.6; BMI 24.3
--- NOTE | 2019-11-13 13:21 | PN.PCM_ITS ---
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 right ankle ulcer History of Wound: Mr. Sabillon is an 84-year-old currently being seen in the wound center for lower extremity ulcers. He does not report any redness. He denies fever, chill, nausea, vomiting. He is with his today. he wears tubigrips for edema control. He had a prior course of epi-fix and is doing well. He is applied hydrogel to the ulcer on the leg this past week. He denies drainage Progress of Wound: Improving left. Returned right - Physical Exam Vital Signs Temp Pulse Resp BP 98 F 65 16 155/76 H 11/13/19 10:54 11/13/19 10:54 11/13/19 10:54 11/13/19 10:54 General: Alert, Oriented x3, Cooperative, No apparent distress Extremities: No cyanosis, Capillary Refill Less than 3 Seconds, No Calf Tenderness, Diminished Peripheral Pulses, Edema - Mild Skin: Ulcer/ Wound - No purulence, erythema, string, odor, infection. There is no skin discontinuity and all of the ulcers are healed bilateral. His skin is atrophic Wound Measurements and Assessment WC - Nurse 1 - General Ulcer Measurement Start: 10/30/19 11:19 Freq: Status: Active Protocol: Activity Type Activity Date Activity User E-Sign Co-Sign Detail Recorded Client Recorded Date Recorded By Document 11/13/19 10:54 [facility] [id number] 11/13/19 11:06 [facility] 11/13/19 10:54 Wound Center Nurse 1 [Ulcer Assessment] 15-right lateral ankle -Combined with other wound No -Current Size (cm) - Length 0.1 -Current Size (cm) - Width 0.1 -Current Size (cm) - Depth 0.1 -Total Square Cm 0.01 -Epithelialization Large 67-100% -Tunneling No -Undermining/Tunneling No -Circular Undermining No -Wound Margin Distinct, Outline Attached -Granulation Amt None Present (0 %) -Slough/Fibrin Yes -Necrosis Amt Small (1-33%) -Necrotic Tissue Type Adherent Slough -Texture (Denisse-wound Skin Appearance) Assessed, Scarring -Moisture (Denisse-wound Skin Appearance Assessed,Dry/ ) Scaly -Color (Denisse-wound Skin Appearance) Assessed -Temperature (Denisse-wound Skin No Abnormality Appearance) (Pt Warm) -Tenderness on Palpation (Denisse-wound No Skin Appearance) -Ulcer Cleansing Rinsed/ Irrigated with Saline -Foul Odor after Cleansing No -Anesthetic Used 5% Lidocaine Gel #14 LLat LE -Combined with other wound No -Current Size (cm) - Length 0.1 -Current Size (cm) - Width 0.1 -Current Size (cm) - Depth 0.1 -Total Square Cm 0.01 -Photo Taken No -Epithelialization Large 67-100% -Tunneling No -Undermining/Tunneling No -Circular Undermining No -Exudate Amt None Present -Wound Margin Distinct, Outline Attached -Granulation Amt None Present (0 %) -Slough/Fibrin Yes -Necrosis Amt Small (1-33%) -Necrotic Tissue Type Adherent Slough -Texture (Denisse-wound Skin Appearance) Assessed, Scarring -Moisture (Denisse-wound Skin Appearance Assessed,Dry/ ) Scaly -Color (Denisse-wound Skin Appearance) Assessed -Temperature (Denisse-wound Skin No Abnormality Appearance) (Pt Warm) -Tenderness on Palpation (Denisse-wound No Skin Appearance) -Ulcer Cleansing Rinsed/ Irrigated with Saline -Foul Odor after Cleansing No -Anesthetic Used 5% Lidocaine Gel [Edema Assessment] -Lower Limb Edema Present No -Right Calf (cm) 26.5 -Right Ankle (cm) 20.8 -Left Calf (cm) 29.4 -Left Ankle (cm) 21.5 WC - Nurse 2 - General Ulcer CM Notes Start: 10/30/19 11:19 Freq: Status: Active Protocol: Activity Type Activity Date Activity User E-Sign Co-Sign Detail Recorded Client Recorded Date Recorded By Document 11/13/19 11:21 [id number] 11/13/19 11:22 11/13/19 11:21 Wound Center Nurse 2 [Procedure/Treatment] 15-right lateral ankle -Correct Patient No -Correct Side, Site, Position No -Correct Procedure No -Procedure Performed No -Post Debridement Size (cm) - Length 0 -Post Debridement Size (cm) - Width 0 -Post Debridement Size (cm) - Depth 0 -Total Square Cm 0 -Wound/Ulcer Outcome Healed- Epithelialized #14 LLat LE -Correct Patient No -Correct Side, Site, Position No -Correct Procedure No -Procedure Performed No -Post Debridement Size (cm) - Length 0 -Post Debridement Size (cm) - Width 0 -Post Debridement Size (cm) - Depth 0 -Total Square Cm 0 -Wound/Ulcer Outcome Healed- Epithelialized [See Physician Procedure note for Specifics] Pain Scale: 0-10 Numeric [Pain] -Is Patient Pain Free? Yes Musculoskeletal: No Tenderness to Palpation of Joints or Extremities, Muscle Wasting, - - Paralysis lower extremities. Wheelchair noted Neurological: Sensory exam intact to light touch and pain Psych/Mental Status: Normal Affect, Appropriate Debridement Note Post-Debridement Measurements/Treatment WC - Nurse 2 - General Ulcer CM Notes Start: 10/30/19 11:19 Freq: Status: Active Protocol: Activity Type Activity Date Activity User E-Sign Co-Sign Detail Recorded Client Recorded Date Recorded By Document 10/30/19 11:45 [id number] 10/30/19 11:49 DL Document 11/06/19 11:15 [id number] 11/06/19 11:17 Document 11/13/19 11:21 [id number] 11/13/19 11:22 10/30/19 11/06/19 11/13/19 11:45 11:15 11:21 Wound Center Nurse 2 15-right lateral ankle -Time 11:47 11:15 -Correct Patient No Yes No -Correct Side, Site, Position No Yes No -Correct Procedure No Yes No -Procedure Performed No Yes No -Type of Procedure Debridement -Clinical Debridement Subcutaneous -Post Debridement Size (cm) - Length 0.1 0.3 0 -Post Debridement Size (cm) - Width 0.1 0.2 0 -Post Debridement Size (cm) - Depth 0.1 0.1 0 -Total Square Cm 0.01 0.06 0 -Wound/Ulcer Outcome Not Healed Not Healed Healed- Epithelialized -Ulcer Cleansing Rinsed/ Rinsed/ Irrigated with Irrigated with Saline Saline -Foul Odor after Cleansing No No -Bioengineered Tissue No -Bleeding Controlled with Pressure -Offloading No -Treatment Response Procedure Tolerated Well #14 LLat LE -Time 11:47 11:16 -Correct Patient Yes Yes No -Correct Side, Site, Position Yes Yes No -Correct Procedure Yes Yes No -Procedure Performed Yes Yes No -Type of Procedure Debridement Debridement -Clinical Debridement Subcutaneous Selective -Post Debridement Size (cm) - Length 0.4 0.2 0 -Post Debridement Size (cm) - Width 0.4 0.1 0 -Post Debridement Size (cm) - Depth 0.1 0.1 0 -Total Square Cm 0.16 0.02 0 -Wound/Ulcer Outcome Not Healed Not Healed Healed- Epithelialized -Ulcer Cleansing Rinsed/ Rinsed/ Irrigated with Irrigated with Saline Saline -Foul Odor after Cleansing No No -Bioengineered Tissue No No -Bleeding Controlled with Pressure Pressure -Offloading No No -Treatment Response Procedure Procedure Tolerated Well Tolerated Well #7 Lateral RLE -Correct Patient No -Correct Side, Site, Position No -Correct Procedure No -Procedure Performed No -Post Debridement Size (cm) - Length 0 -Post Debridement Size (cm) - Width 0 -Post Debridement Size (cm) - Depth 0 -Total Square Cm 0 -Wound/Ulcer Outcome Healed- Epithelialized Pain Scale: 0-10 Numeric Is Patient Pain Free? Yes Yes Yes No debridement was completed today - healed today Assessment/Plan Assessment: Right leg/lateral ankle ulcer healed. Left leg ulcer healed. Paralysis. Bilateral lower extremity edema. Malnutrition Plan: I reviewed his case. His also sites are healed. No debridement or dressing care is needed at this time. To discontinue nutritional supplementation. It is noted he also had prior arterial work-up and no interven tion is recommended. He was advised to maintain good skin integrity with regular moisturization and careful offloading. He is discharged from the wound healing center at this time. Follow-up as needed.
== END 2019-11-26 23:59 ==
LOC: WC 11:00
PROVIDERS: Family Provider Family Medicine; PCP Family Medicine; Referring Provider Podiatrist; Visit Provider Podiatrist
DX: L97.822 Non-pressure chronic ulcer of other part of left lower leg with fat layer exposed (principal); R60.0 Localized edema; G83.9 Paralytic syndrome, unspecified
CPT/HCPCS: 11042; 97597; 99213; G0463

== ENCOUNTER → 2019-12-19 13:46 | Outpatient (CLI) | payer MEDICARE, OTHER, SELFPAY ==
--- NOTE | 2019-12-19 13:52 | ART_ITS ---
Reason For Study: Atherosclerosis Procedure A bilateral lower extremity continuous wave Doppler with analog waveform analysis and ankle brachial indexes. Left Segmental Pressures Left brachial= 144mmHg. Left posterior tibial artery = >254mmHg. Left dorsalis pedis artery = 115mmHg. Left digit = 135 mmHg. The left dorsalis pedis waveforms are biphasic. The left posterior tibial artery waveforms are biphasic. Right Segmental Pressures Right brachial= 144mmHg. Right posterior tibial artery = >254mmHg. Right dorsalis pedis artery = >254mmHg. Right digit = 119 mmHg. The right dorsalis pedis waveforms are biphasic. The right posterior tibial artery waveforms are biphasic. Indices The right ankle brachial index by the dorsalis pedis is NC. The right ankle brachial index by the posterior tibial artery is NC. The right digital-brachial index is 0.83. The left ankle brachial index by the dorsalis pedis is 0.80. The left ankle brachial index by the posterior tibial artery is NC. The left digital-brachial index is 0.94. Interpretation Summary 1. Bilteral with NC consistent with medial calcinosis except for left dp at 0.8. Bilateral biphasic flow at he ankle 2. DBI normal at 0.83 and 0.94. Ordering Physician: Francisco De Anda Referring Physician: Eris Melendez MD Performed By: Gricel Demarco RVT
== END ==
PROVIDERS: Family Provider Family Medicine; PCP Family Medicine; Referring Provider Surgery Vascular Surgery; Visit Provider Surgery Vascular Surgery
DX: I70.213 Atherosclerosis of native arteries of extremities with intermittent claudication, bilateral legs (principal); I10 Essential (primary) hypertension; E78.70 Disorder of bile acid and cholesterol metabolism, unspecified; Z86.73 Personal history of transient ischemic attack (TIA), and cerebral infarction without residual deficits
CPT/HCPCS: 93922

== ENCOUNTER → 2020-02-05 10:50 | Outpatient (CLI) | payer MEDICARE, OTHER, SELFPAY ==
[2020-02-05 10:57] LABS: Mucous, Urine 0 SEEN /hpf (<or=2+)
[2020-02-05 12:34] LABS: Color, Urine Yellow (Yellow); Glucose, Dipstick Normal (Normal); Ketone-Dipstick Negative (Negative); Leukocyte Esterase-Dipstick 500 /ul (Negative); Nitrite-Dipstick Negative (Negative); Occult Blood-Urine 10 /ul (Negative); Protein-Dipstick Negative (Negative); Urine Bilirubin Dipstick Negative (Negative); Urine Clarity Clear (Clear); Urine Urobilinogen Normal (Normal)
[2020-02-05 12:41] LABS: Bacteria 1+ /hpf (None Seen); Red Blood Cells-Urine 0-5 SEEN /hpf (0-5); Squamous Epithelial Cells - UA 0-5 SEEN /hpf (0-5); White Blood Cells 25-50 SEEN /hpf (0-5)
[2020-02-05 15:30] LABS: Absolute Lymphocyte Count 1.74 X10^3/uL (0.83-4.51); Absolute Neutrophil Count 5.5 X10^3/uL (2.0-7.7); Basophil# 0.04 X10^3/uL; Basophil% 0.5 % (0-1); Eosinophil# 0.18 X10^3/uL; Eosinophils% 2.3 % (0-5); Hematocrit 44.4 % (40-54); Hemoglobin 14.2 g/dL (13.0-16.5); Lymphocyte # 1.74 X10^3/ul (4.0); Mean Corpuscular Hgb 32.6 pg (27.0-32.0); Mean Corpuscular Volume 102.1 fL (80-94); Mean Platelet Vol. 10.1 fl (6.2-12.0); Monocyte# 0.47 X10^3/uL; Monocyte% 5.9 % (0-10); NRBC Flagged by Analyzer 0 % (0-5); Neutrophil # 5.47 X10^3/uL (2.7-7.7); Platelet Count 161 K/mm3 (150-450); RBC Distribution Width CV 12.7 % (11.6-14.6); RBC Distribution Width SD 48.8 fl (35.1-43.9); Red Blood Count 4.35 M/mm3 (4.6-6.2); White Blood Count 7.9 K/mm3 (4.4-11.0)
[2020-02-05 15:58] LABS: ALB/GLOB Ratio 1.1 RATIO (0.9-2.4); AST(SGOT) 30 U/L (15-37); Alanine Aminotransfer ALT/SGPT 105 U/L (16-61); Albumin, Serum 3.8 g/dL (3.2-5.0); Alkaline Phosphatase 151 U/L (45-117); Anion Gap 0 (5-15); BUN 23 mg/dL (7-18); Calcium,Total 9.3 mg/dL (8.5-10.1); Chloride 104 mmol/L (98-107); EST Glomerular Filtration Rate 76 mL/min (>60); Est Glom Filt Rate - Afr Amer 92 mL/min (>60); Free T3 2.5 pg/mL (2.18-3.98); GGTP 234 U/L (15-85); Globulin 3.6 g/dL (2.2-4.2); Glucose 90 mg/dL (74-106); Potassium 4.8 mmol/L (3.5-5.1); Protein, Total 7.4 g/dL (6.4-8.2); Sodium Level 140 mmol/L (136-145); T4 Free Direct 0.91 ng/dL (0.76-1.46)
[2020-02-06 08:51] LABS: Hepatitis C Antibody Non-Reactive (Nonreactive)
== END ==
LOC: LABSPEC 10:52 → LAB 12:19
PROVIDERS: PCP Family Medicine; Referring Provider Family Medicine; Visit Provider Family Medicine
DX: R94.6 Abnormal results of thyroid function studies (principal); R79.89 Other specified abnormal findings of blood chemistry; R39.9 Unspecified symptoms and signs involving the genitourinary system
CPT/HCPCS: 36415; 80053; 81001; 82977; 84439; 84443; 84481; 85025; 86803; 87077; 87086; 87088; 87186

== ENCOUNTER → 2020-02-13 13:01 | Outpatient (CLI) | payer MEDICARE, OTHER, SELFPAY ==
[2020-02-06 14:37] VITALS: BMI 24.3
[2020-02-13] MEDS: 0.9% NaCl Peripheral Flush Adult/Peds IV ×2 (13:28→14:06)
[2020-02-13] MEDS: 0.9% NaCl IVPB Med Flush (250 mL) 15 ML IV (13:28)
[2020-02-13 13:36] VITALS: BP 126/71; PULSE 64; RESP 16; TEMP 36.9; O2SAT 93; BMI 24.5
[2020-02-13 14:07] VITALS: BP 119/60; PULSE 64; TEMP 36.6
== END ==
PROVIDERS: PCP Family Medicine; Referring Provider Urology; Visit Provider Urology
DX: N39.0 Urinary tract infection, site not specified (principal)
CPT/HCPCS: 96365; J7050; A4216

== ENCOUNTER → 2020-02-14 12:53 | Outpatient (CLI) | payer MEDICARE, OTHER, SELFPAY ==
[2020-02-06 14:37] VITALS: BMI 24.3
[2020-02-14 13:13] VITALS: BP 133/56; PULSE 66; RESP 16; TEMP 36.6; BMI 24.5
[2020-02-14] MEDS: 0.9% NaCl Peripheral Flush Adult/Peds IV ×3 (13:15→14:57)
[2020-02-14] MEDS: 0.9% NaCl IVPB Med Flush (250 mL) 15 ML IV (13:37)
== END ==
PROVIDERS: PCP Family Medicine; Referring Provider Family Medicine; Visit Provider Family Medicine
DX: N39.0 Urinary tract infection, site not specified (principal)
CPT/HCPCS: 96365; J7050; A4216

== ENCOUNTER 2020-02-15 12:42 | Outpatient (CLI) | payer MEDICARE, OTHER, SELFPAY ==
[2020-02-06 14:37] VITALS: BMI 24.3
[2020-02-14 13:13] VITALS: BMI 24.5
[2020-02-15] MEDS: 0.9% Saline Lock 10 ML Syringe IV ×2 (12:46→13:50)
[2020-02-15 13:01] VITALS: BP 149/63; PULSE 62; RESP 18; TEMP 36.8; O2SAT 95
== END 2020-02-15 13:57 | disposition home or self-care (01) ==
LOC: MEDOUTP 12:43 → MS3 12:44
PROVIDERS: PCP Family Medicine; Referring Provider Urology; Visit Provider Urology
DX: N39.0 Urinary tract infection, site not specified (principal)
CPT/HCPCS: 96365; J7050; A4216

== ENCOUNTER 2020-02-16 12:38 | Outpatient (CLI) | payer MEDICARE, OTHER, SELFPAY ==
[2020-02-06 14:37] VITALS: BMI 24.3
[2020-02-14 13:13] VITALS: BMI 24.5
[2020-02-16] MEDS: 0.9% Saline Lock 10 ML Syringe IV ×2 (12:41→13:37)
[2020-02-16 12:51] VITALS: BP 150/72; PULSE 64; RESP 18; TEMP 36.8; O2SAT 96
== END 2020-02-16 13:43 | disposition home or self-care (01) ==
LOC: MEDOUTP 12:39 → MS3 12:40
PROVIDERS: PCP Family Medicine; Referring Provider Urology; Visit Provider Urology
DX: N39.0 Urinary tract infection, site not specified (principal)
CPT/HCPCS: 96365; J7050; A4216

== ENCOUNTER → 2020-02-17 12:54 | Outpatient (CLI) | payer MEDICARE, OTHER, SELFPAY ==
[2020-02-06 14:37] VITALS: BMI 24.3
[2020-02-14 13:13] VITALS: BMI 24.5
[2020-02-17 14:00] VITALS: BP 160/74; PULSE 61; RESP 16; TEMP 36.4; O2SAT 95; BMI 24.5
[2020-02-17] MEDS: 0.9% NaCl IVPB Med Flush (250 mL) 15 ML IV (14:23)
[2020-02-17] MEDS: 0.9% NaCl Peripheral Flush Adult/Peds IV ×2 (14:24→15:32)
== END ==
PROVIDERS: PCP Family Medicine; Referring Provider Urology; Visit Provider Urology
DX: N39.0 Urinary tract infection, site not specified (principal)
CPT/HCPCS: 96365; J7050; A4216

== ENCOUNTER → 2020-02-18 12:52 | Outpatient (CLI) | payer MEDICARE, OTHER, SELFPAY ==
[2020-02-06 14:37] VITALS: BMI 24.3
[2020-02-17 14:00] VITALS: BMI 24.5
[2020-02-18 13:22] VITALS: BP 136/72; PULSE 64; RESP 18; TEMP 36.5; O2SAT 92; BMI 24.5
[2020-02-18] MEDS: 0.9% NaCl Peripheral Flush Adult/Peds IV ×2 (13:30→14:40)
[2020-02-18] MEDS: 0.9% NaCl IVPB Med Flush (250 mL) 15 ML IV (13:30)
== END ==
PROVIDERS: PCP Family Medicine; Referring Provider Urology; Visit Provider Urology
DX: N39.0 Urinary tract infection, site not specified (principal)
CPT/HCPCS: 96365; J7050; A4216

== ENCOUNTER → 2020-02-19 12:49 | Outpatient (CLI) | payer MEDICARE, OTHER, SELFPAY ==
[2020-02-06 14:37] VITALS: BMI 24.3
[2020-02-18 13:22] VITALS: BMI 24.5
[2020-02-19] MEDS: 0.9% NaCl IVPB Med Flush (250 mL) 15 ML IV (13:16)
[2020-02-19] MEDS: 0.9% NaCl Peripheral Flush Adult/Peds IV (13:17)
[2020-02-19 13:22] VITALS: BP 111/59; PULSE 70; RESP 16; O2SAT 96; BMI 24.5
== END ==
PROVIDERS: PCP Family Medicine; Referring Provider Urology; Visit Provider Urology
DX: N39.0 Urinary tract infection, site not specified (principal)
CPT/HCPCS: 96365; J7050; A4216

== ENCOUNTER → 2020-02-21 14:04 | Outpatient (CLI) | payer MEDICARE, OTHER, SELFPAY ==
[2020-02-06 14:37] VITALS: BMI 24.3
[2020-02-19 13:22] VITALS: BMI 24.5
--- NOTE | 2020-02-21 14:06 | ECHOD_ITS ---
Reason For Study: AFIB FLUTTER Procedure This was a 2D Doppler, Color Flow transthoracic echocardiogram. The study was technically difficult. PT scanned in supine position. Exam performed in department. Left Ventricle Normal size and thickness. The estimated ejection fraction is 65 %. Stage 2 diastolic dysfunction. No regional wall motion abnormalities noted. Right Ventricle Normal size and thickness. Normal systolic function. Atria Normal left atrium. Normal right atrium. Normal atrial septum. Mitral Valve Mild diffuse mitral valve thickening. Severe mitral annular calcification extending into the posterior leaflet. Tricuspid Valve Normal tricuspid valve. Trivial tricuspid valve insufficiency. Right ventricular systolic pressure estimated to be 19 mmHg. Aortic Valve Trisinus/trileaflet aortic valve. Moderate diffuse aortic valve thickening. Mild aortic stenosis. Pulmonic Valve Normal pulmonic valve. Great Vessels Normal aortic root. Normal arch. Normal inferior vena cava. Inferior vena cava collapse with sniff. Pericardium/Pleural No pericardial effusion. MMode/2D Measurements & Calculations LVIDd: 3.9 cm IVSd: 1.2 cm Ao root diam: 3.4 cm LVIDs: 2.5 cm LVPWd: 1.2 cm FS: 36.2 % LAV(MOD-bp): 42.2 ml LA A4 area: 18.0 cm2 LA dimension(2D): 4.1 cm LAV(MOD-bp) Indexed: 21.7 ml/m2 LAV(MOD-sp2): 45.1 ml LAV(MOD-sp4): 40.2 ml Time Measurements MV dec time: 0.24 sec Doppler Measurements & Calculations MV E max rommel: 86.4 cm/sec Lat Peak E' Rommel: 5.1 cm/sec Med Peak E' Rommel: 4.5 cm/sec MV A max rommel: 82.1 cm/sec E/E' lat: 17.0 E/E' med: 19.3 MV E/A: 1.1 Ao V2 max: 160.4 cm/sec LV V1 max: 116.9 cm/sec PA V2 max: 119.2 cm/sec Ao max P.3 mmHg LV V1 max P.5 mmHg Ao V2 mean: 114.5 cm/sec LV V1 mean P.3 mmHg Ao mean P.9 mmHg LV V1 mean: 86.6 cm/sec Ao V2 VTI: 30.7 cm LV V1 VTI: 23.7 cm TR max rommel: 183.6 cm/sec TR max P.5 mmHg Interpretation Summary The estimated ejection fraction is 65 %. Stage 2 diastolic dysfunction. Mild diffuse mitral valve thickening. Trivial tricuspid valve insufficiency. Right ventricular systolic pressure estimated to be 19 mmHg. Mild aortic stenosis. Compared to echo report dated 07/05/2018, no appreciable changes noted. Ordering Physician: Jewel Calderon Referring Physician: Eris Melendez Performed By: Raysa Alexander RDCS, RVT
== END ==
PROVIDERS: PCP Family Medicine; Referring Provider Internal Medicine Cardiovascular Disease; Visit Provider Internal Medicine Cardiovascular Disease
DX: R07.9 Chest pain, unspecified (principal)
CPT/HCPCS: 93306

== ENCOUNTER → 2020-04-02 10:24 | Outpatient (CLI) | payer MEDICARE, OTHER, SELFPAY ==
[2020-02-06 14:37] VITALS: BMI 24.3
[2020-02-19 13:22] VITALS: BMI 24.5
--- NOTE | 2020-04-02 10:26 | STEWCON_ITS ---
Reason For Study: CHEST PAIN Stress Results Protocol: Dobutamine Stress Echo With Definiity Maximum Predicted HR: 138 bpm Target HR: 117 bpm % Maximum Predicted HR: 80 % DurationHeart Rate Stage (mm:ss) (bpm) BP Dose Comment BASELINE 62 154/85 STAGE 1 3:00 66 170/8910.00 STAGE 2 3:00 82 98/60 20.00 STAGE 3 3:00 92 100/6030.000.25MG ATROPINE STAGE 4 2:03 111 152/8040.00 RECOVERY 85 124/82 5 CC DEFINITY FOR ENTIRE TEST Stress Duration: 11:03 mm:ss Maximum Stress HR: 111 bpm Baseline Echocardiogram Findings The estimated ejection fraction is 65 %. Stress Echo Wall motion Data Resting WM Intermediate WM Stress WM Resting Wall Motion Wall Motion Stress No regional wall motion No regional wall motion abnormalities noted. abnormalities noted. EKG Data The baseline ECG displays normal sinus rhythm. The baseline ECG displays diffuse abnormal ST segments. The patient was titrated from 10 mcg to a maximum of 40 mcg of dobutamine during the stress. The maximum heart rate attained was 126 beats per minute. This was 91% of maximum predicted heart rate. At peak infusion, upsloping ST changes only were noted, which did not meet the criteria for ischemia. Interpretation Summary The estimated ejection fraction is 65 %. Normal, adequate, dobutamine echocardiogram. Negative for ischemia by echocardiograph criteria. No anginal symptoms noted. Patient did develop diffuse ST segment depression during infusion but there were no associated wall motion abnormalities. Rare PAC noted. Appropriate blood pressure response to dobutamine. Final LVEF is 75%. Test terminated due to the attainment of target heart rate. Decrease sensitivity due to poor echo windows requiring Definity enhancing agent. Patient tolerated procedure well. No complications. The study was technically difficult. Contrast injection was performed. Ordering Physician: Jewel Calderon Referring Physician: Jewel Calderon Performed By: Raysa Alexander, RDCS, RVT
== END ==
PROVIDERS: PCP Family Medicine; Referring Provider Internal Medicine Cardiovascular Disease; Visit Provider Internal Medicine Cardiovascular Disease
DX: R07.9 Chest pain, unspecified (principal); E78.5 Hyperlipidemia, unspecified
CPT/HCPCS: 93017; 93350; J7040; Q9957; A4216; C8928

== ENCOUNTER → 2020-04-15 10:30 | Outpatient (CLI) | payer MEDICARE, OTHER, SELFPAY ==
[2020-02-19 13:22] VITALS: BMI 24.5
[2020-04-15 13:00] LABS: AST(SGOT) 32 U/L (15-37); Alanine Aminotransfer ALT/SGPT 61 U/L (16-61); Albumin, Serum 3.5 g/dL (3.2-5.0); Alkaline Phosphatase 136 U/L (45-117); Anion Gap 5 (5-15); BUN 19 mg/dL (7-18); BUN/Creat Ratio 20.8 RATIO (10-20); Chloride 102 mmol/L (98-107); Creatinine, Serum 0.91 mg/dL (0.70-1.30); EST Glomerular Filtration Rate 84 mL/min (>60); Est Glom Filt Rate - Afr Amer 102 mL/min (>60); Globulin 3.6 g/dL (2.2-4.2); Glucose 105 mg/dL (74-106); Potassium 4.5 mmol/L (3.5-5.1); Protein, Total 7.1 g/dL (6.4-8.2); Sodium Level 141 mmol/L (136-145); T4 Free Direct 1.11 ng/dL (0.76-1.46); Thyroid Stim Hormone (TSH) 1.48 uIU/mL (0.358-3.74)
== END ==
PROVIDERS: PCP Family Medicine; Referring Provider Family Medicine; Visit Provider Family Medicine
DX: R53.83 Other fatigue (principal); E03.9 Hypothyroidism, unspecified
CPT/HCPCS: 36415; 80053; 84439; 84443

== ENCOUNTER → 2020-07-03 | Outpatient (CLI) | payer MEDICARE, OTHER, SELFPAY ==
[2020-06-16 14:55] VITALS: BMI 24.5
== END | disposition home or self-care (01) ==
LOC: LABSPEC 11:14
PROVIDERS: PCP Family Medicine; Referring Provider Family Medicine; Visit Provider Family Medicine
DX: R30.0 Dysuria (principal)
CPT/HCPCS: 87086; 87088; 87186

== ENCOUNTER → 2020-07-29 09:32 | Outpatient (CLI) | payer MEDICARE, OTHER, SELFPAY ==
[2020-06-16 14:55] VITALS: BMI 24.5
[2020-07-29 12:38] LABS: AST(SGOT) 52 U/L (15-37); Alanine Aminotransfer ALT/SGPT 73 U/L (16-61); Albumin, Serum 3.5 g/dL (3.2-5.0); Alkaline Phosphatase 152 U/L (45-117); Cholesterol 102 mg/dL (200); Globulin 3.8 g/dL (2.2-4.2); High Density Lipoprotein 49 mg/dL; Protein, Total 7.3 g/dL (6.4-8.2); Triglycerides 58 mg/dL; Very Low Density Lipoprotein 12 mg/dL (5-40)
== END ==
PROVIDERS: PCP Family Medicine; Referring Provider Internal Medicine Cardiovascular Disease; Visit Provider Internal Medicine Cardiovascular Disease
DX: E78.5 Hyperlipidemia, unspecified (principal)
CPT/HCPCS: 36415; 80061; 80076

== ENCOUNTER 2020-07-31 11:00 | Outpatient (RCR) | payer MEDICARE, OTHER, SELFPAY ==
[2020-02-19 13:22] VITALS: BMI 24.5
--- NOTE | 2020-06-04 09:51 | HP.PTEVAL_ITS ---
Patient's Visit Information REGINA ROJAS is a 84 year old M referred to Physical Therapy by Dr. Eris Melendez MD with a diagnosis of Paraplegia. 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 In 2003 Mr Rojas under went a [employer] shunt for a temporary subarachnoid bleed then developed bacterial menengitis as a results of this proceed. Since that time he has had a progressive loss of function R/L for his entire body. In 2006 and 2007 he underwent a laminectomy to relieve pressure from the syrinx at C7-T1. He states that he is progressively losing trunk control and has difficulty sitting upright without holding on with his hand. He has two goals of treatment to potential do a sliding board transfer or standing pivot transfer and to sit upright and eat without support. - Pain Bilateral Lower Extremity Pain Intensity (Out of 10): 2 Pain Intensity Range: 1, 7 - Objective Mr Rojas present to the clinic today in a motorized wheel chair. He demonstrates decrease trunk tone on R side and is slighlty llisted to the left to maintain upright posture. Posture is FH, RS and increse kyphois. Upper extremity DTR are 2/3 B for UE absent for lower extremeity. 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 MMT Bicep R 26/L 30 Tricep R 30/L 30. Slight resistant either L or R to trunk will topple over. LE patietn is unable to initiate L hip flexion, L knee ext is 13lbs and L knee flexion is 11. R side he is unable to generate and muscle contraction at this time. - Goals Goal 1:: Ability to sit unsupported in Wheel chair and feed himself. Goal Time Frame: 6-8 Weeks Goal 2:: Ability to perfrom a sliding board transfer. Goal Time Frame: 6-8 Weeks Goal 3:: Ability to perfrom a sit to stand pivot transfer Goal Time Frame: 6-8 Weeks - Rehabilitation Potential Physical Therapy Diagnosis: R/L LE paraplegia with trunk instability Rehabilitation Potential: Poor - Anticipated Interventions Patient/Client Instruction: Educate patient on: Condition, Plan of Care For the Purpose of:: To improve ability to perform ADL's, To improve ability to perform tasks related to life management, To improve tolerance to ADL's Therapeutic Exercise to Include: Strength training, Balance training, Passive ROM, Active ROM For the Purpose of:: To improve ability to perform ADL's, To improve ability to perform tasks related to life management, To improve tolerance to ADL's Functional Training to Include: ADL Training For the Purpose of:: To assume or resume ADL's Thank you for the opportunity to evaluate your patient. For Medicare and Medicare HMO plans, please review the plan of care and approve it. It will need to be FAXED BACK to us at [phone] for Medicare purposes. For Medicare only, by signing this I certify the plan of care. Please let me know if there are questions or concerns regarding this plan of care. Physician Signature: Date:
--- NOTE | 2020-11-25 13:33 | HP.PT.NRP ---
REGINA ROJAS was seen in my office for initial evaluation on 06/04/20. The following Plan of Care was established for this patient: Initial Frequency: 3x /Week Initial Duration: 6 Weeks Patient/Client Instruction: Educate patient on: Condition, Plan of Care For the Purpose of:: To improve ability to perform ADL's, To improve ability to perform tasks related to life management, To improve tolerance to ADL's Therapeutic Exercise to Include: Strength training, Balance training, Passive ROM, Active ROM For the Purpose of:: To improve ability to perform ADL's, To improve ability to perform tasks related to life management, To improve tolerance to ADL's Functional Training to Include: ADL Training For the Purpose of:: To assume or resume ADL's This patient was last seen in our office . Pertinent comments regarding their Physical therapy will appear below: Patient was fit for w/c- appropriate for d/c. At this point I will be discontinuing this patient from physical therapy. I would be happy to see this patient again in the future if found appropriate by the physician. Thank you! JOSE G JavedT
== END 2020-07-31 19:00 | disposition home or self-care (01) ==
LOC: PT 11:00
PROVIDERS: PCP Family Medicine; Referring Provider Family Medicine; Visit Provider Family Medicine
DX: G82.20 Paraplegia, unspecified (principal); G89.29 Other chronic pain; R53.1 Weakness
CPT/HCPCS: 97110; 97163; 97530

== ENCOUNTER 2020-08-24 16:51 | Emergency (ER) | payer MEDICARE, OTHER, SELFPAY ==
[2020-06-16 14:55] VITALS: BMI 24.5
[2020-08-24 16:52] VITALS: BP 132/69; PULSE 68; RESP 16; TEMP 36.4; O2SAT 97; BMI 24.3
--- NOTE | 2020-08-24 17:08 | CT_ITS ---
STUDY: CT BRAIN WITHOUT CONTRAST REASON FOR EXAM: Male, 84 years old. TRAUMA, FELL, HIT HEAD. LEFT SIDE WORSE. ON PLAVIX. H/O SUBARACHNOID HEMORRHAGE, SHUNT RADIATION DOSAGE (If Supplied By Facility): CTDIvol = ( 44.99 ) mGy, DLP = ( 846.73 ) mGycm TECHNIQUE: Transaxial CT imaging of the brain was performed without administration of intravenous contrast material. Individualized dose optimization techniques were used for this CT. COMPARISON: 08/12/2018 FINDINGS: Normal soft tissue structures. 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 Normal basal ganglia and thalami. Normal brainstem. Normal cerebellum. There is no intracranial hemorrhage. There are no findings of an acute ischemic infarction. Normal visualized paranasal sinuses. No significant change since prior exam CT/Brain/Head without Contrast IMPRESSION: Mild cortical atrophy and periventricular white matter ischemic changes. No evidence for acute intracranial bleed Electronically Signed: Vicente Sebastian MD at 17:45 EDT , Service support ,
--- NOTE | 2020-08-24 17:58 | ED.DCSUM_ITS ---
- ER Visit Summary Date of Service: 08/24/20 Chief Complaint: Head injury History of Present Illness: The patient is a 84 M who presents with a head injury that occurred today. Patient has a history of transverse myelitis, syringomyelia, and prior subarachnoid hemorrhage. Patient states he is normally in a wheelchair but attempts to stand for an hour every day for therapy. Patient states he was in his garage today when he did this. Patient states it was raining in the garage floor was slippery. Patient states he fell forward and hit his head. Patient denies any loss of consciousness. Patient denies any new paresthesias or weakness. Patient is on Plavix. Physical Examination: Vital signs are stable. Patient is afebrile. Patient is in no acute distress. Cranial nerves II through XII are intact. Strength is 5/5 in the upper extremities bilaterally. There are no sensory deficits noted. There is some mild tenderness over the right frontal area. There is no bony crepitance or step-off. Neck is supple. Trachea is midline. There is no JVD. There is good range of motion of the cervical spine. Heart was regular rate and rhythm. Lungs are clear and equal bilaterally. Abdomen is soft and nontender. Test Results: CT scan of the brain was obtained. There is no acute intracranial abnormality. This was interpreted by the radiologist and reviewed by myself. Emergency Department Course and Treatment: Patient was given head injury instructions. Patient was instructed to use ice as needed. Patient was instructed to follow-up with his primary care physician in 5 to 7 days. Patient understood and was agreeable with the plan. All questions were answered. Disposition: Discharge home Impression: 1. Closed head injury This note was generated with [employer] dictation software. It may contain incorrect words, spelling, and punctuation that were not noted in review of the chart prior to signing ED Disposition - Plan for ED Patient: Disposition: Home or Assisted Living Diagnosis: Head injury Instructions: ED Head Injury Adult Referrals: Eris Melendez MD [Primary Care Provider] - 5-7 Days
== END 2020-08-24 18:37 | disposition home or self-care (01) ==
LOC: ED 18:20
PROVIDERS: Emergency Provider Emergency Medicine; PCP Family Medicine
DX: S09.90XA Unspecified injury of head, initial encounter (principal); W01.0XXA Fall on same level from slipping, tripping and stumbling without subsequent striking against object, initial encounter; Y93.89 Activity, other specified; Y92.008 Other place in unspecified non-institutional (private) residence as the place of occurrence of the external cause; Y99.8 Other external cause status; I25.10 Atherosclerotic heart disease of native coronary artery without angina pectoris; I10 Essential (primary) hypertension; E03.9 Hypothyroidism, unspecified; I73.9 Peripheral vascular disease, unspecified; G95.0 Syringomyelia and syringobulbia; G37.3 Acute transverse myelitis in demyelinating disease of central nervous system; Z86.79 Personal history of other diseases of the circulatory system; Z79.02 Long term (current) use of antithrombotics/antiplatelets; Z79.899 Other long term (current) drug therapy
CPT/HCPCS: 70450; 99282

== ENCOUNTER → 2020-08-26 12:02 | Outpatient (CLI) | payer MEDICARE, OTHER, SELFPAY ==
[2020-08-24 16:52] VITALS: BMI 24.3
[2020-08-26 15:16] LABS: Absolute Lymphocyte Count 1.52 X10^3/uL (0.83-4.51); Absolute Neutrophil Count 3.3 X10^3/uL (2.0-7.7); Basophil# 0.03 X10^3/uL; Basophil% 0.6 % (0-1); Eosinophil# 0.11 X10^3/uL; Hematocrit 43.1 % (40-54); Hemoglobin 13.5 g/dL (13.0-16.5); Lymphocyte # 1.52 X10^3/ul (4.0); Lymphocyte % 27.9 % (19-41); Mean Corp Hgb Conc 31.3 g/dL (32-36); Mean Corpuscular Hgb 32.4 pg (27.0-32.0); Mean Corpuscular Volume 103.4 fL (80-94); Mean Platelet Vol. 10.2 fl (6.2-12.0); Monocyte# 0.43 X10^3/uL; Monocyte% 7.9 % (0-10); NRBC Flagged by Analyzer 0 % (0-5); Neutrophil # 3.34 X10^3/uL (2.7-7.7); Neutrophil % 61.4 % (47-70); Platelet Count 191 K/mm3 (150-450); RBC Distribution Width SD 45.4 fl (35.1-43.9); Red Blood Count 4.17 M/mm3 (4.6-6.2); White Blood Count 5.4 K/mm3 (4.4-11.0)
[2020-08-26 15:41] LABS: ALB/GLOB Ratio 0.9 RATIO (0.9-2.4); AST(SGOT) 47 U/L (15-37); Alanine Aminotransfer ALT/SGPT 105 U/L (16-61); Albumin, Serum 3.4 g/dL (3.2-5.0); Alkaline Phosphatase 185 U/L (45-117); Anion Gap 2 (5-15); BUN 20 mg/dL (7-18); BUN/Creat Ratio 25.1 RATIO (10-20); Calcium,Total 8.8 mg/dL (8.5-10.1); Chloride 101 mmol/L (98-107); EST Glomerular Filtration Rate 98 mL/min (>60); Est Glom Filt Rate - Afr Amer 119 mL/min (>60); Globulin 3.9 g/dL (2.2-4.2); Glucose 85 mg/dL (74-106); Magnesium 2.7 mg/dL (1.6-2.6); Potassium 4.3 mmol/L (3.5-5.1); Protein, Total 7.3 g/dL (6.4-8.2); Sodium Level 138 mmol/L (136-145)
== END ==
PROVIDERS: PCP Family Medicine; Referring Provider Family Medicine; Visit Provider Family Medicine
DX: S09.90XA Unspecified injury of head, initial encounter (principal); K59.09 Other constipation
CPT/HCPCS: 36415; 80053; 83735; 85025

== ENCOUNTER → 2021-07-12 12:53 | Outpatient (CLI) | payer MEDICARE, SELFPAY ==
[2020-10-12 11:10] VITALS: BMI 24.0
--- NOTE | 2021-07-12 12:56 | ART_ITS ---
Reason For Study: Aftercare Procedure A bilateral lower extremity continuous wave Doppler with analog waveform analysis and ankle brachial indexes. Left Segmental Pressures Left brachial= 119mmHg. The left ankle is noncompressible. Left digit = 102 mmHg. Right Segmental Pressures Right brachial= 112mmHg. The right ankle is noncompressible. Right digit = 70 mmHg. Indices The right ankle brachial index by the posterior tibial artery is NC. The right ankle brachial index by the dorsalis pedis is NC. The right digital-brachial index is 0.59. The left ankle brachial index by the posterior tibial artery is NC. The left ankle brachial index by the dorsalis pedis is NC. The left digital-brachial index is 0.86. VL/Ankle Brachial Index Interpretation Summary Bilateral lower extremities with noncompressibility noted at the ankle. Biphasi c flow noted throughout. Digit brachial index 0.59 and 0.86. Ordering Physician: Francisco De Anda Referring Physician: Eris Melendez Performed By: Cristela Mack RDCS/RVT
== END ==
PROVIDERS: PCP Family Medicine; Visit Provider Surgery Vascular Surgery
DX: Z48.812 Encounter for surgical aftercare following surgery on the circulatory system (principal); I70.239 Atherosclerosis of native arteries of right leg with ulceration of unspecified site; I70.249 Atherosclerosis of native arteries of left leg with ulceration of unspecified site
CPT/HCPCS: 93922

== ENCOUNTER → 2021-09-30 12:51 | Outpatient (CLI) | payer MEDICARE, SELFPAY ==
--- NOTE | 2021-09-30 13:00 | ECHOD_ITS ---
Reason For Study: aortic stsenois Procedure This was a 2D Doppler, Color Flow transthoracic echocardiogram. The study was technically difficult. The study was technically limited. Exam performed in reclining wheelchair. Left Ventricle Normal LV size. The estimated ejection fraction is 60 %. Unable to assess diastolic dysfunction. No regional wall motion abnormalities noted. Right Ventricle Normal RV size. Normal systolic function. Atria Normal left atrium. Normal right atrium. No doppler evidence for ASD. Mitral Valve There is no mitral valve stenosis. No mitral valve insufficiency. Tricuspid Valve There is no tricuspid stenosis. Unable to estimate RV systolic pressure due to inadequate jet, pulmonary artery pressure probably normal. Aortic Valve Aortic sclerosis, no stenosis. There is no aortic stenosis. No aortic valve insufficiency. Pulmonic Valve There is no pulmonic valvular stenosis. No pulmonic valve insufficiency. Great Vessels Normal aortic root. Pericardium/Pleural No pericardial effusion. MMode/2D Measurements & Calculations RVDd: 3.4 cm LAV(MOD-sp4): 51.5 ml LA A4 area: 17.5 cm2 LA dimension(2D): 4.3 cm RA A4 area: 13.5 cm2 Time Measurements MV dec time: 0.24 sec Doppler Measurements & Calculations MV E max rommel: 77.9 cm/sec Lat Peak E' Rommel: 3.8 cm/sec Med Peak E' Rommel: 3.0 cm/sec MV A max rommel: 87.8 cm/sec E/E' lat: 20.3 E/E' med: 26.2 MV E/A: 0.89 Ao V2 max: 157.8 cm/sec LV V1 max: 150.8 cm/sec PA V2 max: 99.1 cm/sec Ao max P.0 mmHg LV V1 max P.1 mmHg Ao V2 mean: 114.8 cm/sec LV V1 mean P.2 mmHg Ao mean P.8 mmHg LV V1 mean: 121.1 cm/sec Ao V2 VTI: 33.3 cm LV V1 VTI: 35.6 cm ECHO/Echo Complete Interpretation Summary The estimated ejection fraction is 60 %. Unable to assess diastolic dysfunction. Aortic sclerosis, no stenosis. Ordering Physician: Zaira Rockwell Referring Physician: Eris Melendez Performed By: Raysa Alexander, RDCS, RVT
== END ==
PROVIDERS: PCP Family Medicine; Referring Provider Specialist; Visit Provider Specialist
DX: R06.02 Shortness of breath (principal)
CPT/HCPCS: 93306

== ENCOUNTER 2022-05-03 08:07 | Inpatient (IN) | payer MEDICARE, SELFPAY ==
[2022-05-03 08:15] VITALS: BP 150/75; PULSE 60; RESP 18; TEMP 36.6; O2SAT 98; BMI 23.3
--- NOTE | 2022-05-03 08:38 | PCM.HP.BLA ---
History and Physical Date of Admission: 05/03/22 Intake Vital Signs 03/21/22 14:28 Height 5 ft 10 in Weight: 171 lb BMI 24.5 BP 189/78 H Blood Pressure Location Rt brachial Position Sitting Respiration 18 Intake Visit Reasons: Cholostomy Chief Complaint: colostomy Dye Weigher Required: No Is patient in pain?: No Allergies Cephalosporins Allergy (Intermediate, Verified 03/21/22 14:27) Laryngospasms Penicillins Allergy (Intermediate, Verified 03/21/22 14:27) Rash heparin Adverse Reaction (Intermediate, Verified 03/21/22 14:27) bruises easily IVP DYE Allergy (Uncoded 03/21/22 14:27) Rash Medications lithium carbonate 150 mg PO TID 07/05/18 [History Confirmed 03/21/22] furosemide 40 mg PO DAILY 08/11/18 [History Confirmed 03/21/22] atorvastatin 40 mg PO QHS 11/06/18 [History Confirmed 03/21/22] multivitamin,wz-[id number]-ulychvug 1 tab PO DAILY 11/06/18 [History Confirmed 03/21/22] pyridoxine (vitamin B6) 100 mg PO DAILY 11/06/18 [History Confirmed 03/21/22] tamsulosin 0.4 mg PO 1700 11/06/18 [History Confirmed 03/21/22] docusate sodium 200 mg PO DAILY PRN PRN 05/13/19 [History Confirmed 03/21/22] trazodone 25 mg PO QHS #0 05/16/19 [Rx Confirmed 03/21/22] carvedilol 3.125 mg tablet 3.125 mg PO QHS tab 02/06/20 [History Confirmed 03/21/22] cyclobenzaprine 5 mg tablet 5 mg PO QHS 02/06/20 [History Confirmed 03/21/22] duloxetine 60 mg capsule,delayed release 60 mg PO DAILY cap 02/06/20 [History Confirmed 03/21/22] isosorbide mononitrate 10 mg tablet 10 mg PO QHS tab 02/06/20 [History Confirmed 03/21/22] losartan 25 mg tablet 12.5 mg PO QHS tab 02/06/20 [History Confirmed 03/21/22] magnesium oxide 500 mg capsule 500 mg PO BID 02/06/20 [History Confirmed 03/21/22] methadone 5 mg tablet 7.5 mg PO TID tab 02/06/20 [History Confirmed 03/21/22] sulfamethoxazole 800 mg-trimethoprim 160 mg tablet 1 tab PO DAILY tab 02/06/20 [History Confirmed 03/21/22] ascorbic acid (vitamin C) 1,000 mg tablet 500 mg PO BID tab 10/12/20 [History Confirmed 03/21/22] clopidogrel 75 mg tablet mg PO 10/12/20 [History Confirmed 03/21/22] cranberry fruit concentrate 250 mg chewable tablet 500 mg PO DAILY tab 10/12/20 [History Confirmed 03/21/22] gabapentin 300 mg capsule 300 mg PO BID cap 10/12/20 [History Confirmed 03/21/22] levothyroxine 50 mcg tablet 50 mcg PO DAILY tab 10/12/20 [History Confirmed 03/21/22] hydrocortisone acetate 30 mg rectal suppository 30 mg [place] BID #12 ea 03/11/22 [Rx Confirmed 03/21/22] methylnaltrexone 150 mg tablet 150 mg PO QAM #30 tab 03/16/22 [Rx Confirmed 03/21/22] PFSH Medical History 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 Constricting chest pain often radiating down left arm History of coma (~2003) HTN (hypertension) Hyperlipidemia Hypothyroidism 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 Non-STEMI (non-ST elevated myocardial infarction) PAD (peripheral artery disease) Paraplegia Shortness of breath Subarachnoid hemorrhage (~2003) Syringomyelia Therapeutic opioid-induced constipation (OIC) Surgical History History of brain shunt (~2003) History of laminectomy History of total right knee replacement (TKR) Family History Father Heart disease Hypertension Sister Hypertension Brother Hypertension Social History Smoking Status: Never smoker alcohol intake: current alcohol intake frequency: a few times a week substance use type: does not use caffeine: Yes Type: coffee Number of servings: 2 HPI HPI HPI: REGINA ROJAS, is a 86 M who presents to the office today for discussion of ostomy. Patient is here as he has neurogenic colon and struggles with constipation and inability to fully evacuate. ROS General General: No weight change, appetite, fatigue, colon cancer, breast cancer or weakness HEENT HEENT: Yes difficulty swallowing; No eye injury, eye surgery, swollen glands or hoarseness Endo Endocrine: No thyroid disease, diabetes mellitus, thyroid cancer, Hair loss, heat intolerance or cold intolerance Skin Skin: No rash or changing moles Breast Breast: No left breast lump, right breast lump, nipple discharge, breast pain, abnormal mammogram, abnormal US or breast enlargement Musc Musculoskeletal: Yes back problems and arthritis; No rheumatoid arthritis, gout or joint pain Cardio Cardiovascular: No murmur, pacemaker, heart disease, atrial fibrillation, high blood pressure, heart attack, heart stent, palpitations, shortness of breat with exertion or chest pain Psych Psychiatric: No depression, anxiety or hearing voices Resp Respiratory: No shortness of breath, No sleep apnea, No cough, No COPD, No asthma, No emphysema and No wheezing Gastro Gastrointestinal: Yes abdominal pain, No nausea or vomiting, No diarrhea, Yes constipation, No blood in stool, No acid reflux, No hemorrhoids, No ulcers, No gallbladder problem and No black,tarry stools Jayson Hematologic: Yes blood thinners, No blood disorders, No bleeding, No anemia and No blood clots Neuro Neurologic: No system reviewed and no additional complaints, except as documented, No as per HPI, No abnormal gait, No abnormal hearing, No abnormal movements, No abnormal speech, No behavioral changes, No burning sensations, No confusion, No convulsions, No disequilibrium, No dizziness, No localized weakness, No frequent falls, No headache(s), No lack of coordination, No loss of vision, No memory loss, Yes numbness, No other visual disturbances, No radicular pain, No restless legs, No sensory deficit, No syncope, Yes tingling, No tremor(s), No weakness and No other Exam Const General: cooperative Orientation: alert and oriented x3 Limitations: physical limitations HENMT Head: normal to inspection Neck Neck: normal visual inspection and full ROM Chest Chest palpation & inspection: normal inspection of the chest Resp Effort & Inspection: normal respiratory effort Auscultation: clear to auscultation bilaterally Cardio Rate: regular rate Rhythm: regular rhythm GI Inspection: non-distended Palpation: soft and nontender Skin General: no rashes or lesions noted Neuro General: patient alert and patient oriented x3 Extrem General: full ROM Psych Appearance: grossly normal Mental Status: mental status grossly normal Assessment and Plan Assessment and Plan (1) Paraplegia: Status: Chronic 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 Prosper Mackey MD: Patient has paraplegia and constant constipation due to neurogenic colon. I discussed diverting colostomy with therapy detail. I discussed the procedure as well as postoperative care. I went to an in-depth conversation about surgical risks as well as benefits. I discussed the risks and benefits of placing a colostomy. I discussed laparoscopic approach and hospital stay for bowel prep as well as postoperative hospital stay. The patient is going to think about his options and call me if he would like to proceed with diverting colostomy Prosper Mackey MD Pager: [facility] [address] [place] [address] [address] [place] [address] Office: . I have reexamined the patient and the patient has decided to proceed with diverting colostomy. All questions were answered.
[2022-05-03 08:47] LABS: Absolute Neutrophil Count 2.4 X10^3/uL (2.0-7.7); Basophil# 0.02 X10^3/uL; Basophil% 0.5 % (0-1); Eosinophils% 2.6 % (0-5); Hematocrit 41.5 % (40-54); Hemoglobin 13.4 g/dL (13.0-16.5); Lymphocyte % 26.3 % (19-41); Mean Corp Hgb Conc 32.3 g/dL (32-36); Mean Corpuscular Volume 102.2 fL (80-94); Mean Platelet Vol. 9.6 fl (6.2-12.0); Monocyte# 0.22 X10^3/uL; Monocyte% 5.8 % (0-10); NRBC Flagged by Analyzer 0 % (0-5); Neutrophil # 2.44 X10^3/uL (2.7-7.7); Neutrophil % 64.3 % (47-70); Platelet Count 133 K/mm3 (150-450); RBC Distribution Width CV 12.1 % (11.6-14.6); RBC Distribution Width SD 45.5 fl (35.1-43.9); Red Blood Count 4.06 M/mm3 (4.6-6.2); White Blood Count 3.8 K/mm3 (4.4-11.0)
[2022-05-03 09:01] LABS: Anion Gap 3 (5-15); BUN 20 mg/dL (7-18); BUN/Creat Ratio 24.2 RATIO (10-20); Calcium,Total 9.1 mg/dL (8.5-10.1); Chloride 103 mmol/L (98-107); Creatinine, Serum 0.83 mg/dL (0.70-1.30); EST Glomerular Filtration Rate 94 mL/min (>60); Est Glom Filt Rate - Afr Amer 114 mL/min (>60); Estimated Creatinine Clearance 68.41 ml/min; Glucose 89 mg/dL (74-106); Potassium 4.4 mmol/L (3.5-5.1); Sodium Level 140 mmol/L (136-145)
--- NOTE | 2022-05-03 09:29 | EKG12_ITS ---
Test Reason : PRE-OP Blood Pressure : / mmHG Vent. Rate : 055 BPM Atrial Rate : 055 BPM P-R Int : 268 ms QRS Dur : 096 ms QT Int : 480 ms P-R-T Axes : 068 036 059 degrees QTc Int : 459 ms Sinus bradycardia with 1st degree A-V block Nonspecific ST abnormality Abnormal ECG Confirmed by JIM PIPER, MECHE ([id number]), videotape editor CALIXTO MACKEY ([id number]) on 05/04/2022 8:56:30 AM Referred By: Prosper Mackey Confirmed By:MECHE FERNANDEZ MD
[2022-05-03 09:51] LABS: International Normalized Ratio 1.1; Prothrombin Time (Protime)PT. 13.5 SECONDS (11.7-14.9)
[2022-05-03 09:52] LABS: Partial Thromboplast Time 29.8 Seconds (24.1-36.2)
[2022-05-03] MEDS: Lactated Ringers 1,000 ML 60 ML IV ×2 (09:59→23:40)
[2022-05-03] MEDS: 0.9% Saline Lock 10 ML Syringe IV (10:00)
[2022-05-03] MEDS: Bisacodyl 5 MG Tablet 20 MG PO (10:18)
[2022-05-03 10:38] LABS: AST(SGOT) 328 U/L (15-37); Alanine Aminotransfer ALT/SGPT 344 U/L (16-61); Albumin, Serum 3.5 g/dL (3.2-5.0); Alkaline Phosphatase 200 U/L (45-117); Bilirubin, Direct 0.36 mg/dL (0.00-0.30); Globulin 3.3 g/dL (2.2-4.2); Protein, Total 6.8 g/dL (6.4-8.2); Thyroid Stim Hormone (TSH) 4.59 uIU/mL (0.358-3.74)
--- NOTE | 2022-05-03 12:48 | CHAPLAIN ---
Type of Pastoral Visit _x__ Initial Visit ___ Follow-up Visit ___ On-call Visit ___ General Patient Visit ___ Spiritual Assessment ___ Family Conference ___ Bereavement ___ Rapid Response ___ Code Blue ___ Other (describe below) Pastoral Care Referral From _x__ Patient ___ Family ___ Nurse ___ Physician ___ Dog Or Animal Sitter ___ Oven Baker ___ Other (describe below) Sacrament/Intervention _x__ Active listening ___ Anointing ___ Adventist ___ Bereavement ___ Communion ___ Roseann exploration ___ _x__ Life review _x__ Prayer ___ Reconciliation ___ Sacrament of Sick _x__ Supportive presence ___ Wedding ___ Other (describe below) Pastoral Comments patient is talkative; caregiver is also in his room; pt reviews his health history and acknowledges his apprehensions about hospitals due to poor treatment 18 years ago at another hospital; pt deals with disappointment and loss on a daily basis because of the resulting paralysis he suffered; pt is unable to speak of any specific activity, thoughts, or experiences that encourage him or help him cope with life; pt is of [facility] roseann but does not suggest that roseann is something that is supportive in his experience; pt does welcome the presence and prayers of this resaw carriage operator; pt is to have surgery tomorrow and welcomes spiritual care;
[2022-05-03] MEDS: Polyethylene Glycol 3350 BOWEL PREP PO (12:58)
[2022-05-03 15:57] VITALS: BP 156/63; PULSE 55; RESP 16; TEMP 36.6; O2SAT 92
[2022-05-03] MEDS: Menthol/Lanolin/Calamine/Znox 113 GM Tube 1 APPLIC TOPICAL ×2 (16:01→21:26)
[2022-05-03] MEDS: Tamsulosin HCl 0.4 MG Capsule PO (18:22)
[2022-05-03] MEDS: Carvedilol 3.125 MG TABLET PO (21:25)
[2022-05-03] MEDS: Gabapentin 300 MG Capsule 600 MG PO (21:25)
[2022-05-03] MEDS: Atorvastatin Calcium 40 MG Tablet PO (21:26)
[2022-05-03] MEDS: Furosemide 40 MG Tablet PO (21:26)
[2022-05-03] MEDS: traZODone 50 MG Tablet 25 MG PO (21:26)
[2022-05-03 22:11] VITALS: BP 155/83; PULSE 63; RESP 16; TEMP 36.9; O2SAT 95
[2022-05-04] VITALS (11 sets, daily range): BP systolic 145–186; BP diastolic 47–92; PULSE 51–77; RESP 16–18; TEMP 36.6–37.3; O2SAT 90–98; BMI 23.3
[2022-05-04] MEDS: Menthol/Lanolin/Calamine/Znox 113 GM Tube 1 APPLIC TOPICAL ×3 (05:41→22:07)
--- NOTE | 2022-05-04 08:04 | WOUNDNOTE ---
Was asked to angelina site for colostomy placement. patient is scheduled for surgery today at [address] Mackey. patient still having loose stools. patient states he spends a large amount of time up in his chair. marked stoma site in the left upper abdomen. made sure stoma marking is 3 fingerbreadths from the umbilicus and not in a fold. patient is wanting to be able to change the appliance as much himself as possible. requesting disposable appliances. have spent many hours discussing options prior to admission on ostomy supplies, etc. will continue to follow.
--- NOTE | 2022-05-04 10:25 | CASEMGMT ---
RN CM NOTE: To room for initial RN CM assessment. Pt out of room--@ OR. RN CM to assess at a later time. Pete GALARZAN RN CM
--- NOTE | 2022-05-04 11:00 | COL_PTH ---
PATIENT: REGINA ROJAS LOC: MS3 U#:[id number] AGE/SX: 86/M ROOM: GA315 RE05/03/[address]: Dr. Prosper Mackey MD : [id number] BED: 1 DIS: 05/06/2022 SPEC #: [id number] RECD: 05/04/22 13:02 STATUS: AZAR LAMA #: [id number] SHERIF: 05/04/22 11:[address]: Prosper Mackey DEPT: SURGICAL PATHOLOGY RECD BY: Odalis Gary ENTERED: 05/05/22 07:33 SP TYPE: COLON OTHR DR: Dr. Eris Melendez MD Tissues: Colon, NOS Procedures: Surgery Specimen Level V HEADER OPERATION: Laparoscopic partial sigmoid colectomy with colostomy PRE-OP DIAGNOSIS: Paraplegia TISSUE SUBMITTED: Sigmoid colon, staple line cortez distal margin MICROSCOPIC DIAGNOSIS Sigmoid colon, segmental colectomy: Nonruptured diverticular disease of colon. Margins of excision with no pathologic change. AM:wil 05/09/2022 MICROSCOPIC DESCRIPTION Slides are reviewed. GROSS DESCRIPTION Received in fixative is one container labeled with the patient's name and designated sigmoid colon, staple line cortez distal margin. The specimen consists of a segment of colon with attached pericolonic adipose tissue measuring 29 cm in length. A focal area of serosal adhesion is noted in the adjacent segment of colon. The distal margin is identified by a staple line. No mucosal lesion is identified. A small amount of fecal material is noted in the colon. Sections will be submitted after fixation. / SJ:wil 05/05/2022 No mucosal lesion is identified. A few diverticula are noted. No obviously ruptured diverticula are identified. Sections of pericolonic adipose tissue do not reveal any obviously enlarged lymph node. Masonry Contractor Administrator sections are submitted in seven cassettes as follows: 1 - proximal resection margin, 2??distal resection margin, 3 & 4 - diverticula, 5 & 6 - focal area with possible serosal adhesions, 7??pericolonic adipose tissue. / SJ:wil 05/06/2022 TC:3 CPT: 55256
[2022-05-04] MEDS: Bupivacaine Mpf 0.5% 30 ML VIAL (11:08)
[2022-05-04] MEDS: Clindamycin 900 MG/50 ML BAG 75 MG IV (11:08)
--- NOTE | 2022-05-04 12:39 | PCM.OPRPT ---
Problems Associated Problem List Diagnoses (1) Transverse myelitis: (2) Paralysis: Report of Operation Date of Procedure: 05/04/22 Pre-Operative Diagnosis: Paraplegia and need for diverting colostomy Post-Operative Diagnosis: Same Surgery/Procedure Performed:: Laparoscopic partial sigmoid colectomy with end colostomy Specimen's removed: Sigmoid colon with staple marking distal margin Description of Procedure: Patient was brought back to the operating room and general anesthesia was induced. Wheeler catheter was placed. The abdomen was prepped and draped in usual sterile fashion. A midline incision was made superior to the umbilicus and a Veress needle was placed into the abdomen. Drop test was performed and then the abdomen was insufflated 15 mmHg. The Veress needle was removed and a 5 mm port was placed. The camera is placed into the abdomen and there were no injuries from entry. Next under direct visualization a right lower quadrant 12 mm port was placed and a right lateral 5 mm port was placed. Patient was placed in Trendelenburg position. The sigmoid colon was identified and the mesentery was divided using Enseal to create a window posterior to the distal sigmoid. The [place] stapler was then used to come across the distal sigmoid rectum junction. Next the lateral attachments to the sigmoid colon were taken down using Enseal and the left ureter is identified and it was intact. The mesentery was then taken down back until the descending colon. The descending colon was easily able to reach the proposed stoma site. This allowed for no redundancy of the sigmoid colon. Next the abdomen was desufflated and the skin was incised at the area of the proposed stoma. The subcutaneous tissue was divided and the anterior fascia was opened in a cruciate fashion. The muscle was divided and the posterior sheath was opened using electrocautery in the same fashion. The colon was delivered through this incision and the colon was sutured to the fascia using 3-0 Vicryl suture. Next the right lower quadrant fascia was closed using 0 Vicryl suture and the smaller incisions were injected with local anesthetic and closed with 4-0 Monocryl suture. After dressings were applied the stoma was matured. The sigmoid colon was divided using electrocautery and then brooked using 3-0 Vicryl suture to the skin. Circumferentially the stomal edge was sutured to the skin using interrupted 3-0 Vicryl sutures. A stoma appliance was applied. The stoma was digitized and appeared to be fairly large and very direct into the colon with no kinking or stenosis. Next after all the dressings were applied the patient's Wheeler was removed and the patient was extubated and taken to PACU in stable condition and tolerated the procedure well. Admit VTE Documentation VTE Mechan Device Prophylaxis: SCD's
[2022-05-04] MEDS: Lactated Ringers 1,000 ML 60 ML IV ×2 (12:55→22:03)
--- NOTE | 2022-05-04 14:48 | WOUNDNOTE ---
Pt back from surgery. in room to assess stoma. stoma is beefy red and edematous. appliance is in place. there is a small amount serosanguineous drainage noted in the appliance. will do more ostomy teaching with patient and tomorrow. will plan to change appliance with both on Monday. pt is already requesting disposable appliances for at home. home health will need to be arranged prior to discharge home as well.
[2022-05-04] MEDS: Tamsulosin HCl 0.4 MG Capsule PO (16:11)
[2022-05-04] MEDS: Smz/Tmp Ds Tablet 1 TABLET PO (16:22)
[2022-05-04] MEDS: Atorvastatin Calcium 40 MG Tablet PO (16:22)
--- NOTE | 2022-05-04 20:29 | NURSING ---
Pt refused to take any PRN medications, if ordered, for his high blood pressure. pt stated he was on too many medications as is and he didnt want anymore. Will give HS medications.
[2022-05-04] MEDS: traZODone 50 MG Tablet 25 MG PO (22:06)
[2022-05-04] MEDS: Furosemide 40 MG Tablet PO (22:06)
[2022-05-04] MEDS: Carvedilol 3.125 MG TABLET PO (22:06)
[2022-05-04] MEDS: Gabapentin 300 MG Capsule 600 MG PO (22:06)
[2022-05-05 03:00] VITALS: BP 142/56; PULSE 61; RESP 16; TEMP 36.7; O2SAT 97
[2022-05-05 05:42] LABS: Absolute Lymphocyte Count 1.29 X10^3/uL (0.83-4.51); Absolute Neutrophil Count 5.1 X10^3/uL (2.0-7.7); Basophil# 0.02 X10^3/uL; Basophil% 0.3 % (0-1); Eosinophil# 0.02 X10^3/uL; Eosinophils% 0.3 % (0-5); Hematocrit 38.6 % (40-54); Hemoglobin 12.8 g/dL (13.0-16.5); Lymphocyte # 1.29 X10^3/ul (0.83-4.51); Lymphocyte % 18.8 % (19-41); Mean Corp Hgb Conc 33.2 g/dL (32-36); Mean Corpuscular Volume 102.4 fL (80-94); Mean Platelet Vol. 10.4 fl (6.2-12.0); Monocyte% 5.8 % (0-10); NRBC Flagged by Analyzer 0 % (0-5); Neutrophil # 5.11 X10^3/uL (2.7-7.7); Neutrophil % 74.7 % (47-70); POSITIVE COUNT YES; Platelet Count 96 K/mm3 (150-450); RBC Distribution Width CV 12.5 % (11.6-14.6); RBC Distribution Width SD 47.2 fl (35.1-43.9); Red Blood Count 3.77 M/mm3 (4.6-6.2); White Blood Count 6.9 K/mm3 (4.4-11.0)
[2022-05-05 05:54] LABS: Differential Indicated SCAN CRITERIA MET
[2022-05-05 06:21] LABS: Anion Gap 3 (5-15); BUN 10 mg/dL (7-18); BUN/Creat Ratio 13.8 RATIO (10-20); Calcium,Total 8.7 mg/dL (8.5-10.1); Chloride 107 mmol/L (98-107); Creatinine, Serum 0.72 mg/dL (0.70-1.30); EST Glomerular Filtration Rate 110 mL/min (>60); Est Glom Filt Rate - Afr Amer 133 mL/min (>60); Estimated Creatinine Clearance 56.78 ml/min; Glucose 70 mg/dL (74-106); Potassium 3.4 mmol/L (3.5-5.1); Sodium Level 141 mmol/L (136-145)
[2022-05-05 06:22] LABS: Differential Comment SCANNED
[2022-05-05] MEDS: Levothyroxine 50 MCG Tablet PO (06:43)
[2022-05-05] MEDS: Menthol/Lanolin/Calamine/Znox 113 GM Tube 1 APPLIC TOPICAL ×3 (06:43→21:28)
--- NOTE | 2022-05-05 08:45 | PN.SURG_ITS ---
Subjective Subjective Patient is doing well. He has not had any nausea or vomiting with clear liquids. Objective Data Objective Data Vital Signs: Vital Signs Temp Pulse Resp BP Pulse Ox 98.1 F 61 16 142/56 H 97 05/05/22 03:00 05/05/22 03:00 05/05/22 03:00 05/05/22 03:00 05/05/22 03:00 Oxygen Delivery Method Room Air Weight: 162 lb 4.163 oz Body Mass Index (BMI) 23.3 Intake & Output: Intake and Output for Last 24 Hours 05/03/22 05/04/22 05/05/22 23:59 23:59 23:59 Intake Total 2121 / 2371 1907.25 / 1907.25 Output Total 800 / 800 1125 / 1125 0 / 0 Balance 1321 / 1571 782.25 / 782.25 0 / 0 Lab / Micro Data Result Diagrams: 05/05/22 04:47 05/05/22 04:47 Labs: Laboratory Results - last 24 hr 05/05/22 04:47: WBC 6.9, RBC 3.77 L, Hgb 12.8 L, Hct 38.6 L, MCV 102.4 H, MCH 34.0 H, MCHC 33.2, RDW Std Deviation 47.2 H, RDW Coeff of Nayeli 12.5, Plt Count 96 L, MPV 10.4, Immature Gran % (Auto) 0.100, Neut % (Auto) 74.7 H, Lymph % (Auto) 18.8 L, [place] % (Auto) 5.8, Eos % (Auto) 0.3, Baso % (Auto) 0.3, Absolute Neuts (auto) 5.1, Absolute Lymphs (auto) 1.29, Nucleated RBC % 0, Differential Comment SCANNED 05/05/22 04:47: Sodium 141, Potassium 3.4 L, Chloride 107, Carbon Dioxide 31.0, Anion Gap 3 L, BUN 10, Creatinine 0.72, Estim Creat Clear Calc 56.78, Est GFR (MDRD) Af Amer 133, Est GFR (MDRD) Non-Af 110, BUN/Creatinine Ratio 13.8, Glucose 70 L, Calcium 8.7 Micro: Microbiology 05/03/22 09:10 Nasal Secretion SARS-CoV-2 Antigen (Rapid) - Final Physical Exam Const oriented x3 and no apparent distress Cardio regular rate and regular rhythm GI soft to palpation and non-tender Assessment & Plan Assessment/Plan (1) Paraplegia: PLAN: The patient is doing well. He appears to be a little hypokalemic so I will give him a dose of K-Dur. He is having some minimal output from his s tahir and his abdomen is soft and nondistended. He tolerated clears I will advance to regular diet. If he is tolerating regular diet I may discharge him home later today. Prosper Mackey MD Pager: [facility] [address] [place] [address], [address] [place] [address] Office:
[2022-05-05 09:00] VITALS: BP 138/64; PULSE 62; RESP 18; TEMP 37.1; O2SAT 95
[2022-05-05] MEDS: Losartan Potassium 25 MG Tablet 12.5 MG PO (09:18)
[2022-05-05] MEDS: Smz/Tmp Ds Tablet 1 TABLET PO (09:18)
[2022-05-05] MEDS: Gabapentin 300 MG Capsule PO (09:18)
[2022-05-05] MEDS: Potassium Chloride Oral Tablet 20 MEQ 40 MEQ PO (09:22)
--- NOTE | 2022-05-05 11:53 | WOUNDNOTE ---
Changed ostomy appliance with patient, , and son. Removed the appliance. there was a small amount of serosanguineous drainage noted in the appliance. stoma is edematous and dark pink. pt denies passing flatus. no BM yet. Pt c/o pain in abdomen. States it's from this surgery. Lap dressings are D&I. The peristomal skin is intact. stoma measures approx 2 1/4. cleansed skin with warm water. pat dry. applied a 2 piece flat Christa appliance with a closed pouch per pt request. Pt feels it will be easier for him to be independent with the pouches if he can just throw one away and apply a new one. this nurse placed the flange and patient was able to snap the pouch in place. Between the patient, , and son, they feel they will be able to change the appliances at home. they do still request home health. BHARTI Rayo CM aware. Pt gets urinary supplies through [facility] and is requesting supplies get ordered through there for the colostomy as well. Script written and signed for home health. Falnge #[id number], pouch #[id number], and stomapaste ordered.
--- NOTE | 2022-05-05 12:55 | CASEMGMT ---
BHARTI AGUERO PAVING RAMMER CM to room to meet with patient for initial transition planning/care coordination assessment. RN LACI introduced self and role at [facility].? Pt voices understanding and consents to assessment at this time.? Pt resting in bed in no distress at this time.? and son, Zac, @ bedside. Pt is A/O at this time and answers all questions appropriately.?? Care providers, pharmacy, and demographics verified/updated at this time. PCP: Dr Eris Melendez Specialists: Dr Mackey--GI Preferred Pharmacy: [facility] Insurance: [employer] [facility] Prescription Benefit:? yes Living Will/HPOA:? Has both LW and HPOA, who is his , Geno LNOK: , Geno. Son, Zac. Living Arrangements: Lives w/his in one-story home w/ramp entrance. Pt is paraplegic. assists w/ADL's and manages home tasks. Pt manages his own medications. Transportation: provides transportation. They have a handicap van. DME: ?States has the following DME:? [id number] device, lift chair, multiple grab bars, hand held shower, Power W/C ?Pt and state no need for further DME at this time.? HHC/SNF: Hx of W several times and [facility]. Has had HHC in the past. Pt and wish for pt to d/c home w/HHC. ?They were provided with list of?[facility] providers including quality and resource use data and consistent with the patient's preferred geographic region, medical needs, and insurance network. ?The preferred provider is?[facility] [facility]. Pt and decline need for an aide. Call placed to [facility] and referral made. Referral packet faxed. [place] aware anticipate discharge home tomorrow and are aware pt has new colostomy. Pt and wish for pt to return home and state has no concerns with going home at time of discharge.? Pt states does not smoke or drink ETOH.? CM to follow for home oxygen needs and any further discharge planning/needs.? Pt voices no further concerns/needs at this time.? Advised pt to ask for CM if any further questions/concerns/needs arise.? Voices understanding. PLAN: ? Pete YIN RN, CM
--- NOTE | 2022-05-05 12:55 | CASEMGMT ---
Addendum entered by Perri Mejía 05/05/22 18:26: 1430: [facility] @ [facility] states they are able to accept pt w/SOC slated for Sat or Sun. [facility] made aware pt requests to get colostomy supplies from [facility], as this is where he gets urology supplies. Per [facility], they will provide supplies for pt while he is active w/[facility], but then they will assist w/pt getting on-going supplies through [facility] for when he is discharged from [facility]. Pt reported to RN CM earlier that he is active w/[facility]. Call placed to Suad @ [facility]. She was notified of pt's admission and anticipate d/c home tomorrow w/[facility]. She states an appt has been made for Abbi @ Palliative to see pt @ his home May 24 @ 2:30 PM and asks if RN CM can notify pt. 1630: Pt and made aware [facility] able to accept pt w/SOC slated for either Sat or Sun. They were also notified of Palliative appt 05/24 as noted above. Original Note: RN CM SUPERVISOR ENGINE REPAIR CM to room to meet with patient for initial transition planning/care coordination assessment. RN CM introduced self and role at [facility].? Pt voices understanding and consents to assessment at this time.? Pt resting in bed in no distress at this time.? and son, Zac, @ bedside. Pt is A/O at this time and answers all questions appropriately.?? Care providers, pharmacy, and demographics verified/updated at this time. PCP: Dr Eris Melendez Specialists: Dr Mackey-- Preferred Pharmacy: [facility] Pres[facility] Benefit:? yes Living Will/HPOA:? Has both LW and HPOA, who is his , Geno LNOK: , Geno. Son, Zac. Living Arrangements: Lives w/his in one-story home w/ramp entrance. Pt is paraplegic. assists w/ADL's and manages home tasks. Pt manages his own medications. Transportation: provides transportation. They have a handicap van. DME: ?States has the following DME:? shy-iy-dsybf device, lift chair, multiple grab bars, hand held shower, Power W/C ?Pt and state no need for further DME at this time.? HHC/SNF: Hx of W several times and [facility]. Has had HHC in the past. Pt and wish for pt to d/c home w/HHC. ?They were provided with list of?[facility] providers including quality and resource use data and consistent with the patient's preferred geographic region, medical needs, and insurance network. ?The preferred provider is?[facility]. Pt and decline need for an aide. Call placed to [facility] and referral made. Referral packet faxed. Larry aware anticipate discharge home tomorrow and are aware pt has new colostomy. Pt and wish for pt to return home and state no concerns with going home at time of discharge. CM to follow for further discharge planning/needs.? Pt, , and son voice no further concerns/needs at this time.? Advised them to ask for CM if any further questions/concerns/needs arise.? They voice understanding. PLAN: ?Home w/HHC. Pete GALARZAN RN CM
--- NOTE | 2022-05-05 14:19 | PCM.DC.SUM ---
Providers Date of Admission: 05/03/22 Primary Care Physician: Dr. Eris Melendez MD Consultations 05/03/22 08:38 Consult: Onc/Wound/online advertising director Routine Comment: Reason for Consult:: marking for end colostomy Reason For Visit: LAP PARTIAL SIGMOID Diagnosis Discharge Diagnosis (1) Paraplegia: Status: Chronic Code(s): G82.20 - Paraplegia, unspecified Medications at Discharge Home Medications furosemide 40 mg PO DAILY 08/11/18 atorvastatin [Lipitor] 40 mg PO QHS 11/06/18 multivitamin,qd-zaxm-kszzqedv 1 tab PO DAILY 11/06/18 pyridoxine (vitamin B6) 100 mg PO DAILY 11/06/18 tamsulosin 0.4 mg PO 1700 11/06/18 trazodone 25 mg PO QHS #0 05/16/19 carvedilol 3.125 mg tablet 3.125 mg PO QHS tab 02/06/20 cyclobenzaprine 5 mg tablet 5 mg PO QHS 02/06/20 isosorbide mononitrate 10 mg tablet 10 mg PO QHS tab 02/06/20 losartan 25 mg tablet 12.5 mg PO DAILY tab 02/06/20 magnesium oxide 500 mg capsule 500 mg PO BID 02/06/20 methadone 5 mg tablet See Rx Instructions .ROUTE .COMPLEX tab 02/06/20 sulfamethoxazole 800 mg-trimethoprim 160 mg tablet 1 tab PO DAILY tab 02/06/20 ascorbic acid (vitamin C) 1,000 mg tablet 500 mg PO BID tab 10/12/20 clopidogrel 75 mg tablet 75 mg PO DAILY 10/12/20 cranberry fruit concentrate 250 mg chewable tablet 500 mg PO DAILY tab 10/12/20 gabapentin 300 mg capsule 300 mg PO TID cap 10/12/20 levothyroxine 50 mcg tablet 50 mcg PO DAILY tab 10/12/20 Hospital Course Summary of Care Provided Hospital Course: Patient was admitted for bowel prep and then the following day he had elective partial sigmoid colectomy with end colostomy. The patient tolerated the procedure well. The following day he was started on a diet and once he tolerated this he was discharged home. Weight / BMI Weight Weight: 162 lb 4.163 oz Body Mass Index (BMI) 23.3 ABG / Lab / Microbiology Data Result Diagrams: 05/05/22 04:47 05/05/22 04:47 Laboratory: Laboratory Results - last 24 hr 05/05/22 04:47: WBC 6.9, RBC 3.77 L, Hgb 12.8 L, Hct 38.6 L, MCV 102.4 H, MCH 34.0 H, MCHC 33.2, RDW Std Deviation 47.2 H, RDW Coeff of Nayeli 12.5, Plt Count 96 L, MPV 10.4, Immature Gran % (Auto) 0.100, Neut % (Auto) 74.7 H, Lymph % (Auto) 18.8 L, Arthur % (Auto) 5.8, Eos % (Auto) 0.3, Baso % (Auto) 0.3, Absolute Neuts (auto) 5.1, Absolute Lymphs (auto) 1.29, Nucleated RBC % 0, Differential Comment SCANNED 05/05/22 04:47: Sodium 141, Potassium 3.4 L, Chloride 107, Carbon Dioxide 31.0, Anion Gap 3 L, BUN 10, Creatinine 0.72, Estim Creat Clear Calc 56.78, Est GFR (MDRD) Af Amer 133, Est GFR (MDRD) Non-Af 110, BUN/Creatinine Ratio 13.8, Glucose 70 L, Calcium 8.7 Microbiology: Microbiology 05/03/22 09:10 Nasal Secretion SARS-CoV-2 Antigen (Rapid) - Final D/C Instructions Discharge Diet: No restrictions Call your doctor if your incision/area has: Continuous Slow Oozing, Sudden Increased Bleeding, Increased Pain/ Swelling, Increased Redness, Foul Smelling Discharge and Swelling at the incision site Call your doctor if you observe: Fever of 101 or Higher Remove Dressing in: 2 days (Remove clear bandages in 2 days, remove Steri-Strips in 7 to 10 days.) Cleanse incision/area with: Soap & Water Additional Instructions: Resume Plavix 05/06 Please Follow Up With: Prosper Mackey MD When: Please call to schedule 2 week follow up appointment. [phone] Meaningful Use Info Meaningful Use Diagnoses (Choose all that apply): None applicable Discharge Plan Admission Admit Date/Time: 05/03/22 08:07 Attending Provider: Prosper Mackey Primary Care Provider: Eris Melendez Discharge Orders/Prescriptions Prescriptions: Continued carvedilol 3.125 mg tablet 3.125 mg PO QHS RF: 0 cyclobenzaprine 5 mg tablet 5 mg PO QHS RF: 0 magnesium oxide 500 mg capsule 500 mg PO BID RF: 0 methadone 5 mg tablet See Rx Instructions .ROUTE .COMPLEX RF: 0 losartan 25 mg tablet 12.5 mg PO DAILY RF: 0 isosorbide mononitrate 10 mg tablet 10 mg tablet 10 mg PO QHS RF: 0 sulfamethoxazole-trimethoprim [Bactrim DS] 800-160 mg tablet 1 tab PO DAILY RF: 0 levothyroxine 50 mcg tablet 50 mcg PO DAILY RF: 0 gabapentin 300 mg capsule 300 mg PO TID RF: 0 clopidogrel [Plavix] 75 mg tablet 75 mg PO DAILY RF: 0 Azo Cranberry 250 mg tablet,chewable 500 mg PO DAILY RF: 0 ascorbic acid (vitamin C) 1,000 mg tablet 500 mg PO BID RF: 0 furosemide 40 MG tablet 40 mg PO DAILY RF: 0 atorvastatin [Lipitor] 40 MG tablet 40 mg PO QHS RF: 0 pyridoxine (vitamin B6) 100 MG tablet 100 mg PO DAILY RF: 0 multivitamin,qd-tvir-vfnrauib 1 TABLET tablet 1 tab PO DAILY RF: 0 tamsulosin 0.4 MG capsule 0.4 mg PO 1700 RF: 0 trazodone 50 MG tablet 25 mg PO QHS Qty: 0 RF: 0 Referrals / Follow Up: Eris Melendez MD [Primary Care Provider] - Disposition Disposition (needs filled in before D/C Order can be placed): Home, Self Care
[2022-05-05 15:00] VITALS: BP 144/55; PULSE 64; RESP 16; TEMP 37.2; O2SAT 95
--- NOTE | 2022-05-05 15:17 | CHAPLAIN ---
Type of Pastoral Visit ___ Initial Visit _x__ Follow-up Visit ___ On-call Visit ___ General Patient Visit ___ Spiritual Assessment ___ Family Conference ___ Bereavement ___ Rapid Response ___ Code Blue ___ Other (describe below) Pastoral Care Referral From _x__ Patient ___ Family ___ Nurse ___ Physician ___ Wildlife Conservationist ___ Cultural Historian ___ Other (describe below) Sacrament/Intervention _x__ Active listening ___ Anointing ___ Shinto ___ Bereavement ___ Communion ___ Roseann exploration ___ ___ Life review ___ Prayer ___ Reconciliation ___ Sacrament of Sick ___ Supportive presence ___ Wedding ___ Other (describe below) Pastoral Comments offer of supportive presence after his surgery of yesterday; pt talks about his unique disease and that it is not one of the ones getting the attention or the money for research; met family members as well
[2022-05-05] MEDS: Tamsulosin HCl 0.4 MG Capsule PO (16:57)
[2022-05-05] MEDS: Atorvastatin Calcium 40 MG Tablet PO (16:57)
[2022-05-05] MEDS: Ibuprofen 600 MG Tablet PO (17:01)
[2022-05-05 21:15] VITALS: BP 163/60; PULSE 59; RESP 16; TEMP 37.7; O2SAT 94
[2022-05-05] MEDS: traZODone 50 MG Tablet 25 MG PO (21:26)
[2022-05-05] MEDS: Carvedilol 3.125 MG TABLET PO (21:28)
[2022-05-05] MEDS: Furosemide 40 MG Tablet PO (21:28)
[2022-05-05] MEDS: Gabapentin 300 MG Capsule 600 MG PO (21:31)
[2022-05-06 05:15] VITALS: BP 131/60; PULSE 52; RESP 16; TEMP 36.4; O2SAT 94
[2022-05-06] MEDS: Menthol/Lanolin/Calamine/Znox 113 GM Tube 1 APPLIC TOPICAL (05:27)
[2022-05-06] MEDS: Levothyroxine 50 MCG Tablet PO (05:27)
[2022-05-06 08:08] VITALS: BP 158/76; PULSE 66; RESP 16; TEMP 36.8; O2SAT 98
[2022-05-06] MEDS: Gabapentin 300 MG Capsule PO (08:25)
--- NOTE | 2022-05-06 08:51 | WOUNDNOTE ---
Pt sitting up in bed eating breakfast. pt states he slept well last evening. pt states he and his are aware of discharge orders. states it'll be whenever my gets here. It will be a while. patient denies further concerns or needs at this time. pt has 3 flanges and 10 disposable pouches to take home with patient until supplies are ordered by home health.
--- NOTE | 2022-05-06 09:16 | CASEMGMT ---
Addendum entered by Perri Mejía 05/06/22 11:55: Discharge packet and summary faxed to [facility] at this time. Original Note: BHARTI AGUERO NOTE: Pt being discharged home today. BHARTI AGUERO placed call to [facility] and she was notified. SOC slated for either Sat or Sun. They will contact pt/ to schedule SOC appt. BHARTI AGUERO to room. Pt made aware of above. He denies having any other home-going/discharge planning needs or concerns. Pete EDWARD CM
[2022-05-06] MEDS: Losartan Potassium 25 MG Tablet 12.5 MG PO (10:06)
[2022-05-06] MEDS: Smz/Tmp Ds Tablet 1 TABLET PO (10:07)
== END 2022-05-06 12:35 | disposition home health service (06) | DRG 330 ==
PROVIDERS: Admitting Provider Surgery; PCP Family Medicine; Referring Provider Surgery; Visit Provider Surgery
PROC: 0DTN0ZZ Resection of Sigmoid Colon, Open Approach (ICD-10-PCS; CPT 44204; principal; 2022-05-04 10:35)
DX: K59.2 Neurogenic bowel, not elsewhere classified (principal); G37.3 Acute transverse myelitis in demyelinating disease of central nervous system; G95.0 Syringomyelia and syringobulbia; G82.20 Paraplegia, unspecified; I73.9 Peripheral vascular disease, unspecified; I10 Essential (primary) hypertension; E78.5 Hyperlipidemia, unspecified; E03.9 Hypothyroidism, unspecified; I25.2 Old myocardial infarction; E87.6 Hypokalemia; Z98.1 Arthrodesis status; Z98.2 Presence of cerebrospinal fluid drainage device; Z79.01 Long term (current) use of anticoagulants; Z79.899 Other long term (current) drug therapy; Z86.718 Personal history of other venous thrombosis and embolism; Z86.79 Personal history of other diseases of the circulatory system
CPT/HCPCS: 36415; 80048; 80076; 84443; 85025; 85610; 85730; 87426; 88307; 93005; 99251; J7120; A4216; C1760; G0463

== ENCOUNTER 2022-09-07 09:07 | Outpatient (RCR) | payer MEDICARE, SELFPAY ==
[2022-09-07 09:59] VITALS: BP 125/54
--- NOTE | 2022-09-07 11:29 | HP.PCM_ITS ---
History of Present Illness Date of Service: 09/07/22 Chief Complaint: Right ischium pressure ulcer History of Wound: 86-year-old white male that appears in a electric wheelchair with paralysis from waist down. Has developed a pressure ulcer on his right ischium from sitting and positioning. It is a stage II decubitus ulcer. Patient has extra foam on bed and could foam in his lounge chair and in his wheelchair. This has been going on since after his colostomy that was done in April he developed a small pressure area that is still superficial but a stage II. 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 Non-STEMI (non-ST elevated myocardial infarction) PAD (peripheral artery disease) Paraplegia Shortness of breath Subarachnoid hemorrhage (~2003) Syringomyelia Syringomyelia Therapeutic opioid-induced constipation (OIC) Home Medications furosemide 40 mg tablet 40 mg PO DAILY diuretic 08/11/18 [History Last Taken 05/12/19] atorvastatin 40 mg tablet (Lipitor) 40 mg PO QHS CHOLESTEROL 11/06/18 [History Last Taken 05/12/19] multivitamin,tx-wwju-uxhwlrch 27 mg-0.4 mg tablet 1 tab PO DAILY SUPPLEMENT 11/06/18 [History Last Taken 05/13/19] pyridoxine (vitamin B6) 100 mg tablet 100 mg PO DAILY SUPPLEMENT 11/06/18 [History Last Taken 05/13/19] tamsulosin 0.4 mg capsule 0.4 mg PO 1700 BPH 11/06/18 [History Last Taken 05/12/19] trazodone 50 mg tablet 25 mg PO QHS sleep ##0 05/16/19 [Rx Last Taken 05/12/19] carvedilol 3.125 mg tablet 3.125 mg PO QHS heart 02/06/20 [History Last Taken Unknown] cyclobenzaprine 5 mg tablet 5 mg PO QHS pain 02/06/20 [History Last Taken Unknown] isosorbide mononitrate 10 mg tablet 10 mg PO QHS to dilate blood vessels in legs 02/06/20 [History Last Taken Unknown] losartan 25 mg tablet 12.5 mg PO DAILY stop if low bp per Eris Melendez MD 02/06/20 [History Last Taken Unknown] magnesium oxide 500 mg capsule 500 mg PO BID supplement 02/06/20 [History Last Taken Unknown] methadone 5 mg tablet See Rx Instructions .Route .COMPLEX Check with primary doctor 02/06/20 [History Last Taken Unknown] sulfamethoxazole 800 mg-trimethoprim 160 mg tablet (Bactrim DS) 1 tab PO DAILY to prevent Nocardia UTI 02/06/20 [History Last Taken Unknown] ascorbic acid (vitamin C) 1,000 mg tablet 500 mg PO BID supplement 10/12/20 [History Last Taken Unknown] clopidogrel 75 mg tablet (Plavix) 75 mg PO DAILY blood thinner 10/12/20 [History Last Taken 04/28/22] cranberry fruit concentrate 250 mg chewable tablet (Azo Cranberry) 500 mg PO DAILY bladder 10/12/20 [History Last Taken Unknown] gabapentin 300 mg capsule 300 mg PO TID nerve pain 10/12/20 [History Last Taken Unknown] levothyroxine 50 mcg tablet 50 mcg PO DAILY thyroid 10/12/20 [History Last Taken Unknown] Allergy/AdvReac Type Severity Reaction Status Date / Time Cephalosporins Allergy Intermediate Laryngospas Verified 05/17/22 12:45 ms Penicillins Allergy Intermediate Rash Verified 05/17/22 12:45 heparin AdvReac Intermediate bruises Verified 05/17/22 12:45 easily IVP DYE Allergy Rash Uncoded 05/17/22 12:45 Family History Father Heart disease Hypertension Sister Hypertension Brother Hypertension Surgical History History of brain shunt (~2003) History of laminectomy History of partial colectomy (~04/2022) History of total right knee replacement (TKR) Hx of tracheostomy Social History Smoking Status: Never smoker alcohol intake: current alcohol intake frequency: a few times a week substance use type: does not use caffeine: Yes Type: coffee Number of servings: 2 ROS Constitutional Constitutional: Reports systems reviewed and no addt'l complaints, except as documented Eyes Eyes: Reports systems reviewed and no addt'l complaints, except as documented ENT HEENT: Reports systems reviewed and no addt'l complaints, except as documented Cardiovascular Cardiovascular: Reports systems reviewed and no addt'l complaints, except as documented Respiratory/Chest Respiratory/Chest: Reports systems reviewed and no addt'l complaints, except as documented Gastrointestinal Gastrointestinal: Reports systems reviewed and no addt'l complaints, except as documented Genitourinary Genitourinary: Reports systems reviewed and no addt'l complaints, except as documented Musculoskeletal Musculoskeletal: Reports systems reviewed and no addt'l complaints, except as documented Integumentary Integumentary: Reports skin ulcer and other Details: Right ischial area. Stage II Neurologic Neurologic: Reports systems reviewed and no addt'l complaints, except as documented Psychiatric Psychiatric: Reports systems reviewed and no addt'l complaints, except as documented Endocrine Endocrinology: Reports systems reviewed and no addt'l complaints, except as documented Hematologic/Lymphatic Hematologic/Lymphatic: Reports systems reviewed and no addt'l complaints, except as documented Allergic/Immunologic Allergic/Immunologic: Reports systems reviewed and no addt'l complaints, except as documented Vital Signs Vital Signs Vital Signs: 09/07/22 09:59 Blood Pressure 125/54 H Blood Pressure Mean 77 Blood Pressure Source Monitor Physical Exam Const oriented x3 General Appearance: cooperative Exam Limitations: no limitations Cardio regular rate and regular rhythm Palpation: normal PMI Rate: regular rate Rhythm: regular rhythm Back/Spine Cervical Spine: cervical ROM normal Thoracic Spine / Upper Back: normal to inspection Lumbar Spine / Lower Back: normal to inspection Extremity normal to inspection General Extremity: normal exam except as noted Skin no rashes or lesions noted Skin Narrative: Right ischial more superficial stage II decubitus ulcer 0.1 depth Neuro oriented x3 Psych Appearance: grossly normal Speech: normal speech Thought Content: normal thought content Judgement: judgement good Debridement Note Debridement Note Wound debrided: Right ischial Laterality: Right Wound Grade/Stage: Stage II Type of Debridement: Excisional debridement Anesthesia Used: 5% Lidocaine Gel Depth: in the subcutaneous layer Percentage of wound debrided: 100 Instrument Used: 7mm curette Tissue Removed: Fibrin Severity: Fat Layer Exposed Amount of bleeding with debridement: Mild Bleeding Controlled with: Compression and gauze Patient tolerated procedure: Patient tolerated procedure well Post-Debridement Measurements and Additional Note: Post-Debridement Measurements/Treatment WC - Nurse 1 - General Ulcer Assessment Start: 09/07/22 09:59 Freq: Status: Active Protocol: WC.LOWEXT Activity Type Activity Date Activity User E-sign Co-sign Detail Recorded Client Recorded Date Recorded By Document 09/07/22 09:59 AYLA [id number] 09/07/22 10:14 AK 09/07/22 09:59 - Today's Visit Information Type of service Initial Visit Arrival Mode Ambulatory Patient Identification Verified (Name & Yes ) Patient Requires Transmission-Based No Precautions Vital Signs Blood Pressure (90/60-120/80) 125/54 H Blood Pressure Mean (mm Hg) 77 Source Monitor History Since Last Visit- (Skip if this is Patient's initial visit) Has dressing in place as prescribed Yes Has compression in place as prescribed N/A Has offloadiing in place as prescribed N/A Experienced any changes in pain level or No management Left Footwear Regular Shoe Right Footwear Regular Shoe Pain Scale: 0-10 Numeric Is Patient Pain Free? Yes - Nurse 1 - General Ulcer Measurement Start: 09/07/22 09:59 Freq: Status: Active Protocol: Activity Type Activity Date Activity User E-sign Co-sign Detail Recorded Client Recorded Date Recorded By Document 09/07/22 09:59 AYLA [id number] 09/07/22 10:14 AK 09/07/22 09:59 Wound Center Nurse 1 #16 r buttock -Combined with other wound No -Current Size (cm) - Length 1 -Current Size (cm) - Width 0.6 -Current Size (cm) - Depth 0.1 -Total Square Cm 0.6 -Photo Taken Yes -Tunneling No -Undermining/Tunneling No -Circular Undermining No -Change in Wound Grade/Stage No -Exudate Amt Medium -Exudate Type Serosanguineous -Wound Margin Distinct, Outline Attached -Granulation Amt Medium (34-66%) -Granulation Quality Trail -Slough/Fibrin Yes -Necrosis Amt Small (1-33%) -Necrotic Tissue Type Adherent Slough -Structure Exposed N/A -Texture (Denisse-wound Skin Appearance) No Abnormality, Assessed -Moisture (Denisse-wound Skin Appearance) No Abnormality, Assessed -Color (Denisse-wound Skin Appearance) No Abnormality, Assessed -Temperature (Denisse-wound Skin No Abnormality Appearance) (Pt Warm) -Tenderness on Palpation (Denisse-wound No Skin Appearance) -Ulcer Cleansing Rinsed/ Irrigated with Saline -Foul Odor after Cleansing No -Anesthetic Used 5% Lidocaine Gel - Nurse 2 - General Ulcer CM Notes Start: 09/07/22 09:59 Freq: Status: Active Protocol: Activity Type Activity Date Activity User E-sign Co-sign Detail Recorded Client Recorded Date Recorded By Document 09/07/22 10:22 MW [id number] 09/07/22 10:29 MW 09/07/22 10:22 Wound Center Nurse 2 -Time 10:22 -Correct Patient Yes -Correct Side, Site, Position Yes -Correct Procedure Yes -Procedure Performed Yes -Type of Procedure Debridement -Clinical Debridement Subcutaneous -Tissue Removed Subcutaneous -Post Debridement (cm) - Length 0.9 -Post Debridement (cm) - Width 0.8 -Post Debridement (cm) - Depth 0.1 -Total Square (Post) (cm) 0.72 -Area of Debridement (cm) - Length 0.9 -Area of Debridement (cm) - Width 0.8 -Total Square (Area) (cm) 0.72 -Tunneling No -Circular Undermining No -Wound/Ulcer Outcome Not Healed -Ulcer Cleansing Rinsed/ Irrigated with Saline -Foul Odor after Cleansing No -Bioengineered Tissue No -Bleeding Controlled with Pressure -Treatment Response Procedure Tolerated Well -Offloading No -Debridement - Subq, 1st 20sq cm Yes Pain Scale: 0-10 Numeric Is Patient Pain Free? Yes - Nurse 3 - General Ulcer D/C NN Start: 09/07/22 09:59 Freq: Status: Active Protocol: Activity Type Activity Date Activity User E-sign Co-sign Detail Recorded Client Recorded Date Recorded By Document 09/07/22 10:33 [facility] Desktop 09/07/22 10:33 [facility] 09/07/22 10:33 Wound Care Nurse 3 #16 r buttock -Ulcer Cleansing Rinsed/ Irrigated with Saline -Foul Odor after Cleansing No -Primary Dressing Applied Mepilex Border, Promogran -Other Dressing drsg per ak bed and breakfast operator -Mepilex Border 1 -Promogran 1 Treatment Response Procedure Tolerated Well Pain Scale: 0-10 Numeric Is Patient Pain Free? Yes - Visit Discharge Discharge Condition Stable Ambulatory Status Wheelchair Transportation Private Auto Facility Type Home Health Assessment/Plan Assessment/Plan (1) Paralysis: CODE(S): G83.9 - Paralytic syndrome, unspecified (2) Decubitus ulcer of right buttock, stage 2: CODE(S): L89.312 - Pressure ulcer of right buttock, stage 2 PLAN: Wash buttocks with antibacterial soap apply Promogran and extra absorbent dressing over top every day Follow-up with 1 week
== END 2022-09-26 23:59 | disposition home or self-care (01) ==
LOC: WC 09:07
PROVIDERS: PCP Family Medicine; Visit Provider Nurse Practitioner
DX: L89.212 Pressure ulcer of right hip, stage 2 (principal); G82.20 Paraplegia, unspecified; Z93.3 Colostomy status; I10 Essential (primary) hypertension; Z79.02 Long term (current) use of antithrombotics/antiplatelets; E78.5 Hyperlipidemia, unspecified; Z79.899 Other long term (current) drug therapy; I25.2 Old myocardial infarction
CPT/HCPCS: 11042; 87070; 87075; 87077; 87186; 87205; 99203; G0463

== ENCOUNTER → 2022-10-04 | Outpatient (CLI) | payer MEDICARE, SELFPAY | END | disposition home or self-care (01) | LOC: LABSPEC 11:46 | PROVIDERS: PCP Family Medicine; Visit Provider Family Medicine | DX: F32.9 Major depressive disorder, single episode, unspecified (principal) | CPT/HCPCS: 80178 ==

== ENCOUNTER → 2023-04-19 | Outpatient (CLI) | payer MEDICARE, SELFPAY ==
--- NOTE | 2023-04-19 16:21 | MRI_ITS ---
EXAM: MR HEAD WITHOUT INTRAVENOUS CONTRAST CLINICAL INDICATION: HEAD PAIN TECHNIQUE: Multiplanar and multisequence MR images of the brain were obtained without intravenous contrast. COMPARISON: No relevant prior studies available. 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 Abnormal T2 signal in the deep cerebral white matter is consistent with chronic small vessel ischemic/degenerative changes. The cerebral and cerebellar sulci are prominent consistent with brain atrophy. No intra- or extra-axial hemorrhage. No intracranial mass or mass effect. Basal cisterns are patent. SELLA: Unremarkable. Normal sella turcica, pituitary gland, infundibular stalk, optic chiasm and hypothalamus. AUDITORY SYSTEM: Unremarkable. The internal auditory canals are patent. BONES/JOINTS: Unremarkable. No discrete lytic or blastic abnormalities. SINUSES: Unremarkable as visualized. Clear. MASTOID AIR CELLS: Unremarkable as visualized. Clear. ORBITS: Unremarkable as visualized. Both globes, extraocular muscles, optic nerves and retrobulbar fat appear unremarkable. VASCULATURE: Unremarkable as visualized. Normal flow voids in the major intracranial circulation. MRI/Brain without Contrast IMPRESSION: 1. No acute intracranial abnormality. 2. 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 3. Chronic small vessel ischemic/degenerative changes. 4. Cerebral and cerebellar atrophy. Electronically Signed: Luis Alfredo Bernal MD at 22:18 EDT ,
== END | disposition home or self-care (01) ==
PROVIDERS: PCP Family Medicine; Referring Provider Family Medicine; Visit Provider Family Medicine
DX: R51.9 Headache, unspecified (principal)
CPT/HCPCS: 70551

== ENCOUNTER → 2023-06-06 | Outpatient (CLI) | payer MEDICARE, SELFPAY ==
[2023-06-06 17:41] LABS: Absolute Lymphocyte Count 1.43 X10^3/uL (0.83-4.51); Absolute Neutrophil Count 4.5 X10^3/uL (2.0-7.7); Basophil# 0.03 X10^3/uL; Basophil% 0.5 % (0-1); Eosinophil# 0.13 X10^3/uL; Hematocrit 40.6 % (40-54); Hemoglobin 13.2 g/dL (13.0-16.5); Lymphocyte # 1.43 X10^3/ul (0.83-4.51); Lymphocyte % 21.8 % (19-41); Mean Corp Hgb Conc 32.5 g/dL (32-36); Mean Corpuscular Hgb 33.5 pg (27.0-32.0); Mean Platelet Vol. 9.8 fl (6.2-12.0); Monocyte# 0.43 X10^3/uL; Monocyte% 6.6 % (0-10); NRBC Flagged by Analyzer 0 % (0-5); Neutrophil # 4.53 X10^3/uL (2.7-7.7); Neutrophil % 68.9 % (47-70); Platelet Count 152 K/mm3 (150-450); RBC Distribution Width CV 12.4 % (11.6-14.6); RBC Distribution Width SD 47.1 fl (35.1-43.9); Red Blood Count 3.94 M/mm3 (4.6-6.2); White Blood Count 6.6 K/mm3 (4.4-11.0)
[2023-06-06 19:17] LABS: ALB/GLOB Ratio 0.9 RATIO (0.9-2.4); AST(SGOT) 124 U/L (15-37); Alanine Aminotransfer ALT/SGPT 207 U/L (16-61); Albumin, Serum 3.3 g/dL (3.2-5.0); Alkaline Phosphatase 250 U/L (45-117); Anion Gap 5 (5-15); BUN 28 mg/dL (7-18); Calcium,Total 8.6 mg/dL (8.5-10.1); Chloride 106 mmol/L (98-107); Creatinine, Serum 0.85 mg/dL (0.70-1.30); EST Glomerular Filtration Rate 91 mL/min (>60); Est Glom Filt Rate - Afr Amer 110 mL/min (>60); Globulin 3.7 g/dL (2.2-4.2); Glucose 108 mg/dL (74-106); Sodium Level 141 mmol/L (136-145)
== END | disposition home or self-care (01) ==
PROVIDERS: PCP Family Medicine; Visit Provider Family Medicine
DX: R07.89 Other chest pain (principal)
CPT/HCPCS: 36415; 80053; 85025; 85379

== ENCOUNTER 2023-06-08 12:44 | Outpatient (CLI) | payer MEDICARE, SELFPAY ==
--- NOTE | 2023-06-08 13:01 | CT_ITS ---
STUDY: CTA CHEST REASON FOR EXAM: Male, 87 years old. ABNORMAL LAB FINDINGS. Elevated d-dimer. RADIATION DOSAGE (If Supplied By Facility): CTDIvol = ( 7.22 ) mGy, DLP = ( 259.69 ) mGycm TECHNIQUE: The examination was performed with the intravenous administration of IV 100mL Isovue-370. Post-processing of the angiographic images was performed, with multiplanar reformation and 3D reconstruction. Individualized dose optimization techniques were used for this CT. COMPARISON: None. FINDINGS: Findings suggestive of a right-sided ventricular peritoneal shunt. Normal enhancement of the main pulmonary artery and right and left pulmonary arteries. Normal enhancement of the bilateral peripheral pulmonary arteries. There is no demonstrated pulmonary embolism. There is atherosclerotic calcification of the aortic arch with tortuosity. There is no demonstrated aortic dissection. There are calcifications of the coronary arteries. Normal mediastinum. Normal hilar regions. Normal visualized trachea and bronchi. The lungs are well expanded. Calcified granuloma in the posterior medial segment of the right lower lobe. Mild linear scarring at the lung bases. Normal pleura. Normal chest wall structures. There are degenerative changes of thoracic spine. Distended gallbladder containing multiple small gallstones as well as sludge. CT/CTA Chest W/WO Contrast IMPRESSION: Distention of the gallbladder with evidence of multiple stones and sludge. No evidence of pulmonary embolism. Mildly or scarring at the lung bases. Electronically Signed: Mike Cha MD at 15:03 EDT ,
[2023-06-08 13:33] VITALS: BP 159/77; PULSE 62; RESP 16; O2SAT 98
[2023-06-08] MEDS: DiphenhydrAMINE 50 MG/ML Syringe 12.5 MG IV (13:33)
[2023-06-08] MEDS: 0.9% Saline Lock 10 ML Syringe IV (13:33)
[2023-06-08 14:40] VITALS: BP 173/62; PULSE 65; RESP 18; TEMP 36.8; O2SAT 97
[2023-06-08 15:08] VITALS: BP 153/70; PULSE 75; RESP 16; TEMP 36.3; O2SAT 98
== END 2023-06-08 23:59 | disposition home or self-care (01) ==
PROVIDERS: PCP Family Medicine; Referring Provider Family Medicine; Visit Provider Family Medicine
DX: R79.89 Other specified abnormal findings of blood chemistry (principal); R07.89 Other chest pain; G89.29 Other chronic pain
CPT/HCPCS: 71275; 96374; Q9967

== ENCOUNTER → 2023-06-30 | Outpatient (CLI) | payer MEDICARE, SELFPAY ==
[2023-06-30 21:07] LABS: Mucous, Urine 0 SEEN /hpf (<or=2+); Squamous Epithelial Cells - UA 0 SEEN /hpf (0-5)
[2023-06-30 21:29] LABS: Color, Urine Yellow (Yellow); Glucose, Dipstick Normal (Normal); Ketone-Dipstick Negative (Negative); Leukocyte Esterase-Dipstick 500 /ul (Negative); Nitrite-Dipstick Negative (Negative); Occult Blood-Urine 250 /ul (Negative); Protein-Dipstick 15 mg/dl (Negative); Specific Gravity, Urine 1.005 (1.002-1.030); Urine Bilirubin Dipstick Negative (Negative); Urine Clarity Sl. Cloudy (Clear); Urine Urobilinogen Normal (Normal)
[2023-06-30 21:40] LABS: Bacteria 3+ /hpf (None Seen); White Blood Cells 5-10 SEEN /hpf (0-5)
[2023-06-30 21:41] LABS: Red Blood Cells-Urine 0-5 SEEN /hpf (0-5)
== END | disposition home or self-care (01) ==
LOC: LABSPEC 20:59
PROVIDERS: PCP Family Medicine; Visit Provider Family Medicine
DX: R31.9 Hematuria, unspecified (principal); R39.81 Functional urinary incontinence; R82.90 Unspecified abnormal findings in urine
CPT/HCPCS: 81001; 87077; 87086; 87088; 87186

== ENCOUNTER → 2023-07-13 | Outpatient (CLI) | payer MEDICARE, SELFPAY ==
--- NOTE | 2023-07-13 10:01 | NM_ITS ---
CLINICAL: 87-year-old male with history of abdominal pain. RADIONUCLIDE HEPATOBILIARY SCINTIGRAPHY COMPARISON: None available FINDINGS: Following the intravenous administration of 5.4 mCi of 99m Tc Mebrofenin, hepatobiliary images reveal: 1. Relatively prompt and homogeneous radiopharmaceutical concentration is noted by a normal sized liver. No parenchymal defects are identified. 2. Gallbladder activity is not identified during 60 minutes of sequential imaging and delayed acquisitions obtained at 90 minutes and 2 hours post radiotracer provision. 3. Small intestinal tract is observed at 60 minutes post radiopharmaceutical administration. 4. Washout of the radiopharmaceutical by the hepatic parenchyma appears qualitatively delayed. NM/Hepatobilliary Img w/Pharm Int IMPRESSION: 1. ABNORMAL 99m Tc Mebrofenin hepatobiliary imaging examination. A. Nonvisualization of the gallbladder at 120 minutes post radiopharmaceutical administration in the nonacute setting is consistent with a high probability of chronic cholecystitis in patients with intermediate to high pretest probabilities of hepatobiliary disease and who have fasted for more than 4 and less than 24 hours. (Cody et al, Nucl Med Deanne Harleen Press pg. 35, 1980). B. 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 Electronically Signed: Bill Smith, at 22:25 EDT ,
== END | disposition home or self-care (01) ==
LOC: NM 10:01
PROVIDERS: PCP Family Medicine; Referring Provider Surgery; Visit Provider Surgery
DX: R10.9 Unspecified abdominal pain (principal)
CPT/HCPCS: 78227; A9537

== ENCOUNTER → 2023-08-02 | Outpatient (CLI) | payer MEDICARE, SELFPAY ==
[2023-08-02 18:00] LABS: Color, Urine Yellow (Yellow); Glucose, Dipstick Normal (Normal); Ketone-Dipstick Negative (Negative); Leukocyte Esterase-Dipstick 500 /ul (Negative); Nitrite-Dipstick Positive (Negative); Occult Blood-Urine 25 /ul (Negative); Protein-Dipstick 15 mg/dl (Negative); Urine Bilirubin Dipstick Negative (Negative); Urine Clarity Sl. Cloudy (Clear); Urine Urobilinogen Normal (Normal)
== END | disposition home or self-care (01) ==
LOC: LABSPEC 14:18
PROVIDERS: Family Medicine; PCP Family Medicine; Visit Provider Family Medicine
DX: N39.0 Urinary tract infection, site not specified (principal); R82.90 Unspecified abnormal findings in urine
CPT/HCPCS: 81002; 87086

== ENCOUNTER 2023-08-30 13:27 | Observation (INO) | payer MEDICARE, SELFPAY ==
[2023-08-21 13:27] LABS: Hematocrit 39.3 % (40-54); Hemoglobin 12.8 g/dL (13.0-16.5); Mean Corp Hgb Conc 32.6 g/dL (32-36); Mean Corpuscular Hgb 34.2 pg (27.0-32.0); Mean Corpuscular Volume 105.1 fL (80-94); Mean Platelet Vol. 9.2 fl (6.2-12.0); Platelet Count 143 K/mm3 (150-450); RBC Distribution Width CV 12.8 % (11.6-14.6); RBC Distribution Width SD 50.1 fl (35.1-43.9); Red Blood Count 3.74 M/mm3 (4.6-6.2); White Blood Count 6.1 K/mm3 (4.4-11.0)
[2023-08-21 14:05] LABS: ALB/GLOB Ratio 0.8 RATIO (0.9-2.4); AST(SGOT) 126 U/L (15-37); Alanine Aminotransfer ALT/SGPT 185 U/L (16-61); Albumin, Serum 3.1 g/dL (3.2-5.0); Alkaline Phosphatase 228 U/L (45-117); Anion Gap 3 (5-15); BUN 26 mg/dL (7-18); BUN/Creat Ratio 32.1 RATIO (10-20); Calcium,Total 8.6 mg/dL (8.5-10.1); Chloride 109 mmol/L (98-107); Creatinine, Serum 0.81 mg/dL (0.70-1.30); EST Glomerular Filtration Rate 96 mL/min (>60); Est Glom Filt Rate - Afr Amer 116 mL/min (>60); Glucose 133 mg/dL (74-106); Potassium 3.8 mmol/L (3.5-5.1); Protein, Total 7.1 g/dL (6.4-8.2); Sodium Level 139 mmol/L (136-145)
[2023-08-22 08:47] LABS: Thyroid Stim Hormone (TSH) 5.05 uIU/mL (0.358-3.74)
[2023-08-25 05:07] LABS: HEPATITIS B SURFACE AG Negative (Negative); Hep C Antibodies Non Reactive (Non Reactive); Hepatitis A IgM Antibody Negative (Negative); Hepatitis B Core AB IgM Negative (Negative)
[2023-08-30] VITALS (12 sets, daily range): BP systolic 113–154; BP diastolic 42–78; PULSE 56–94; RESP 14–18; TEMP 36.3–37; O2SAT 93–100; BMI 24.3
[2023-08-30] MEDS: Lactated Ringers 1,000 ML 15 ML IV (09:38)
--- NOTE | 2023-08-30 10:18 | HP.PCM_ITS ---
History and Physical Date of Admission: 08/30/23 Chief Complaint: discuss surgery Allergies Cephalosporins Allergy (Intermediate, Verified 07/24/23 14:56) LaryngospasmsPenicillins Allergy (Intermediate, Verified 07/24/23 14:56) RashIodinated Contrast Media [CONTRASTS] Allergy (Verified 07/24/23 14:56) Rashheparin Adverse Reaction (Intermediate, Verified 07/24/23 14:56) bruises easily Medications furosemide 40 mg tablet 40 mg PO DAILY diuretic 08/11/18 [History Confirmed 07/24/23] atorvastatin 40 mg tablet (Lipitor) 40 mg PO QHS CHOLESTEROL 11/06/18 [History Confirmed 07/24/23] multivitamin,zr-aiao-yjmwrnld 27 mg-0.4 mg tablet 1 tab PO DAILY SUPPLEMENT 11/06/18 [History Confirmed 07/24/23] pyridoxine (vitamin B6) 100 mg tablet 100 mg PO DAILY SUPPLEMENT 11/06/18 [History Confirmed 07/24/23] tamsulosin 0.4 mg capsule 0.4 mg PO 1700 BPH 11/06/18 [History Confirmed 07/24/23] trazodone 50 mg tablet 25 mg (1/2 x 50 mg) PO QHS sleep ##0 05/16/19 [Rx Confirmed 07/24/23] carvedilol 3.125 mg tablet 3.125 mg PO QHS heart 02/06/20 [History Confirmed 07/24/23] cyclobenzaprine 5 mg tablet 5 mg PO QHS pain 02/06/20 [History Confirmed 07/24/23] isosorbide mononitrate 10 mg tablet 10 mg PO QHS to dilate blood vessels in legs 02/06/20 [History Confirmed 07/24/23] losartan 25 mg tablet 12.5 mg PO DAILY stop if low bp per Eris Melendez MD 02/06/20 [History Confirmed 07/24/23] methadone 5 mg tablet See Rx Instructions .Route .COMPLEX Check with primary doctor 02/06/20 [History Confirmed 07/24/23] sulfamethoxazole 800 mg-trimethoprim 160 mg tablet (Bactrim DS) 1 tab PO DAILY to prevent Nocardia UTI 02/06/20 [History Confirmed 07/24/23] ascorbic acid (vitamin C) 1,000 mg tablet 500 mg PO BID supplement 10/12/20 [History Confirmed 07/24/23] clopidogrel 75 mg tablet (Plavix) 75 mg PO DAILY blood thinner 10/12/20 [History Confirmed 07/24/23] cranberry fruit concentrate 250 mg chewable tablet (Azo Cranberry) 500 mg PO DAILY bladder 10/12/20 [History Confirmed 07/24/23] levothyroxine 50 mcg tablet 50 mcg PO DAILY thyroid 10/12/20 [History Confirmed 07/24/23] doxycycline hyclate 100 mg tablet 100 mg PO 06/23/23 [History Confirmed 07/24/23] gabapentin 300 mg capsule 300 mg PO BID nerve pain 06/23/23 [History Confirmed 07/24/23] magnesium oxide 500 mg capsule 250 mg PO BID supplement 06/23/23 [History Confirmed 07/24/23] [facility] Medical History (Updated 07/24/23 @ 05:[address] 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 Non-STEMI (non-ST elevated myocardial infarction) PAD (peripheral artery disease) Paraplegia Shortness of breath Subarachnoid hemorrhage (~2003) Syringomyelia Syringomyelia Therapeutic opioid-induced constipation (OIC) Surgical History (Updated 06/23/23 @ 13:50 by Tiffany Bee) History of appendectomy History of brain shunt (~2003) History of laminectomy History of partial colectomy (~04/2022) History of total right knee replacement (TKR) Hx of tracheostomy S/P IVC filter S/P NUCLEAR EQUIPMENT TEST ENGINEER shunt Family History Father Heart disease HypertensionSister HypertensionBrother Hypertension Social History Smoking Status: Never smoker alcohol intake: current alcohol intake frequency: a few times a week substance use type: does not use caffeine: Yes Type: coffee Number of servings: 2 HPI HPI HPI: 87-year-old gentleman returns at my request to help evaluate abdominal pain issues. I saw him in the office on June 23, 2023 admittedly I difficulty in pinpointing the patient's abdominal complaints. We did pursue a hepatobiliary scan on July 13, 2023. The liver promptly filled. The gallbladder was not identified at 60 minutes. The small bowel was seen at 60 minutes. Findings were felt to be consistent with high probability of chronic cholecystitis. Based upon previous CTA of the chest the patient has multiple stones and sludge. I have personally reviewed images. He is at higher risk as he has a left lower quadrant stoma in place and chronic malnutrition and chronic lower extremity wounds and paralysis and history of ventricular peritoneal shunt. As noted below in addition to his other medicines he is on lithium and methadone and clopidogrel. 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: No Is patient in pain?: No Allergies Cephalosporins Allergy (Intermediate, Verified 06/23/23 13:51) LaryngospasmsPenicillins Allergy (Intermediate, Verified 06/23/23 13:51) RashIodinated Contrast Media [CONTRASTS] Allergy (Verified 06/23/23 13:51) Rashheparin Adverse Reaction (Intermediate, Verified 06/23/23 13:51) bruises easily Medications furosemide 40 mg tablet 40 mg PO DAILY diuretic 08/11/18 [History Confirmed 06/23/23] atorvastatin 40 mg tablet (Lipitor) 40 mg PO QHS CHOLESTEROL 11/06/18 [History Confirmed 06/23/23] multivitamin,un-ldbs-qpcmekxg 27 mg-0.4 mg tablet 1 tab PO DAILY SUPPLEMENT 11/06/18 [History Confirmed 06/23/23] pyridoxine (vitamin B6) 100 mg tablet 100 mg PO DAILY SUPPLEMENT 11/06/18 [History Confirmed 06/23/23] tamsulosin 0.4 mg capsule 0.4 mg PO 1700 BPH 11/06/18 [History Confirmed 06/23/23] trazodone 50 mg tablet 25 mg (1/2 x 50 mg) PO QHS sleep ##0 05/16/19 [Rx Confirmed 06/23/23] carvedilol 3.125 mg tablet 3.125 mg PO QHS heart 02/06/20 [History Confirmed 06/23/23] cyclobenzaprine 5 mg tablet 5 mg PO QHS pain 02/06/20 [History Confirmed 04/29/22] isosorbide mononitrate 10 mg tablet 10 mg PO QHS to dilate blood vessels in legs 02/06/20 [History Confirmed 06/23/23] losartan 25 mg tablet 12.5 mg PO DAILY stop if low bp per Eris Melendez MD 02/06/20 [History Confirmed 06/23/23] methadone 5 mg tablet See Rx Instructions .Route .COMPLEX Check with primary doctor 02/06/20 [History Confirmed 06/23/23] sulfamethoxazole 800 mg-trimethoprim 160 mg tablet (Bactrim DS) 1 tab PO DAILY to prevent Nocardia UTI 02/06/20 [History Confirmed 06/23/23] ascorbic acid (vitamin C) 1,000 mg tablet 500 mg PO BID supplement 10/12/20 [History Confirmed 04/29/22] clopidogrel 75 mg tablet (Plavix) 75 mg PO DAILY blood thinner 10/12/20 [History Confirmed 05/03/22] cranberry fruit concentrate 250 mg chewable tablet (Azo Cranberry) 500 mg PO DAILY bladder 10/12/20 [History Confirmed 04/29/22] levothyroxine 50 mcg tablet 50 mcg PO DAILY thyroid 10/12/20 [History Confirmed 06/23/23] doxycycline hyclate 100 mg tablet 100 mg PO 06/23/23 [History Confirmed 06/23/23] gabapentin 300 mg capsule 300 mg PO BID nerve pain 06/23/23 [History Confirmed 06/23/23] magnesium oxide 500 mg capsule 250 mg PO BID supplement 06/23/23 [History Confirmed 06/23/23] [facility] Medical History (Updated 06/23/23 @ 15:[address] 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 Non-STEMI (non-ST elevated myocardial infarction) PAD (peripheral artery disease) Paraplegia Shortness of breath Subarachnoid hemorrhage (~2003) Syringomyelia Syringomyelia Therapeutic opioid-induced constipation (OIC) Surgical History (Updated 06/23/23 @ 13:50 by Tiffany Bee) History of appendectomy History of brain shunt (~2003) History of laminectomy History of partial colectomy (~04/2022) History of total right knee replacement (TKR) Hx of tracheostomy S/P IVC filter S/P NUCLEAR EQUIPMENT TEST ENGINEER shunt Family History Father Heart disease HypertensionSister HypertensionBrother Hypertension Social History Smoking Status: Never smoker alcohol intake: current alcohol intake frequency: a few times a week substance use type: does not use caffeine: Yes Type: coffee Number of servings: 2 HPI HPI HPI: 87-year-old gentleman is referred by Dr. Eris Melendez for surgical consultation regarding an abnormal CT imaging of the gallbladder. A written copy my surgical consult recommendations will return to him. By report the patient had a CT scan of the lungs inspecting for possible pulmonary embolus. Gallstones and sludge identified. The patient has chronic pain symptoms in the right forearm right anal area and is on gabapentin. Apparently complaining of retrosternal intermittent chest pain. Patient is also noted to be on lithium and methadone and clopidogrel in addition to his other medications. He is being treated at the wound care center for chronic right buttock wound. I have personally reviewed the patient's CT. There is additional suggestion of right-sided ventriculoperitoneal shunt. No PE. Calcification of the coronary arteries. Normal mediastinum. Distended gallbladder with stones As of June 06, 2023 white blood cell count was 6.6 with a hemoglobin 13.2 hematocrit 40.6 platelet count 152,000. D-dimer was 1.3 with normal high being 0.49. BUN elevated to 28 with a creatinine 0.85 and an estimated GFR of 91. Glucose was 108. AST was 124 and ALT 207 and alkaline phosphatase 250 while the total bilirubin is 0.4 It is of note that Dr. Prosper Mackey assisted the patient May 04, 2022 because of transverse myelitis and paraplegia by performing a laparoscopic partial sigmoid colectomy with end colostomy for diversion. 87-year-old gentleman is very nonspecific about the discomfort he is having. He points may be to the left upper quadrant superior to his stoma. He then however describes it that he was having chest pain. He does not correlate whether it occurs during the day or night. He does not describe postprandial discomfort. He claims that his colostomy is functioning well He states however that since the CT AAA that he has now developed multiple new areas of blistering and wounds. He is being cared for by the wound care center and he has buttock wounds and leg wounds. He claims that new areas of rash are developing then the blister then they form a deep wound. States he has not been seen by infectious disease or dermatology. No complaint of jaundice. No unexpected weight loss. ROS General General: No weight change, appetite, fatigue, colon cancer, breast cancer or weakness HEENT HEENT: Yes difficulty swallowing; No eye injury, eye surgery, swollen glands or hoarseness Endo Endocrine: No thyroid disease, diabetes mellitus, thyroid cancer, Hair loss, heat intolerance or cold intolerance Skin Skin: No rash or changing moles Breast Breast: No left breast lump, right breast lump, nipple discharge, breast pain, abnormal mammogram, abnormal US or breast enlargement Musc Musculoskeletal: Yes back problems and arthritis; No rheumatoid arthritis, gout or joint pain Cardio Cardiovascular: No murmur, pacemaker, heart disease, atrial fibrillation, high blood pressure, heart attack, heart stent, palpitations, shortness of breat with exertion or chest pain Psych Psychiatric: No depression, anxiety or hearing voices Resp Respiratory: No shortness of breath, No sleep apnea, No cough, No COPD, No asthma, No emphysema and No wheezing Gastro Gastrointestinal: Yes abdominal pain, No nausea or vomiting, No diarrhea, Yes constipation, No blood in stool, No acid reflux, No hemorrhoids, No ulcers, No gallbladder problem and No black,tarry stools Jayson Hematologic: Yes blood thinners, No blood disorders, No bleeding, No anemia and No blood clots Neuro Neurologic: No system reviewed and no additional complaints, except as documented, No as per HPI, No abnormal gait, No abnormal hearing, No abnormal movements, No abnormal speech, No behavioral changes, No burning sensations, No confusion, No convulsions, No disequilibrium, No dizziness, No localized weakness, No frequent falls, No headache(s), No lack of coordination, No loss of vision, No memory loss, Yes numbness, No other visual disturbances, No radicular pain, No restless legs, No sensory deficit, No syncope, Yes tingling, No tremor(s), No weakness and No other Exam Const General: cooperative, comfortable and no acute distress Other: Patient is examined in a wheelchair. He is unable to transfer to our exam table. [facility] Head: normal to inspection Eyes General: appearance normal, both eyes and all related structures Neck Other: Right neck has obvious ventriculoperitoneal shunt tubing Chest Chest palpation & inspection: normal inspection of the chest Resp Effort & Inspection: normal respiratory effort Auscultation: clear to auscultation bilaterally Cardio Rate: regular rate Rhythm: regular rhythm GI Other: Abdomen is soft, there is absolutely no hepatosplenomegaly, no tenderness in the right upper quadrant, left mid abdomen end sigmoid colostomy in place Bowel sounds normal Musc Cervical Spine: normal cervical lordosis Skin Other: Dressings bilateral lower extremities. Neuro General: patient alert Assessment and Plan Assessment and Plan (1) Gallstones: Status: Acute Plan: 87-year-old gentleman who unfortunately is not able to give me truly any type of clear description as the pain that he is having. He describes it as chest pain but he does not point anywhere close to his chest. Potential surgery would be complicated by the NUCLEAR EQUIPMENT TEST ENGINEER shunt in presence of his left lower quadrant stoma. Of even more current concern is according to him since his CTA he is developing areas of rashes with subsequently blister which subsequently breakdown to wounds. He is to be seen at the wound care center on June 26, 2023. I am hoping that This center in [place] is able to provide some clarity as to what is going on with this rash and wound. Possibly the patient might benefit from infectious disease or dermatology evaluation. I am hesitant on pursuing laparoscopic surgery with new incisions until his current process can be better defined. Because of the patient's inability to describe to me his symptom complex I believe that it is pertinent to pursue a hepatobiliary scan. If that scan is considered normal then perhaps the risk benefit to proceeding with surgery is not warranted. If the hepatobiliary scan is abnormal then could pursuing laparoscopic cholecystectomy with selective cholangiograms however only wants a better definition as to what is happening with his skin condition. 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 (4) Cholelithiasis with chronic cholecystitis: Status: Chronic Qualifiers: Biliary obstruction: without biliary obstruction Cholelithiasis location: gallbladder Qualified Code(s): K80.10 - Calculus of gallbladder with chronic cholecystitis without obstruction Plan: Complicated high risk 87-year-old gentleman with chest epigastric pain and at least hepatobiliary scan findings of a completely nonfunctioning gallbladder and known stones. NUCLEAR EQUIPMENT TEST ENGINEER shunt. History of colostomy. Clopidogrel and gabapentin and methadone therapy. The patient presents with his son today. 45 minutes in [id number] consultative appointment was ensued. We discussed the fact that he has a end sigmoid colostomy and has had a previous PEG tube and he has had ventriculoperitoneal shunt and he has chronic cholecystitis cholelithiasis. We discussed the potential for a laparoscopic cholecystectomy with selective cholangiograms although absolutely no guarantees of success have been offered. We discussed the potential for having to convert to an open cholecystectomy. We discussed even the potential not being perform cholecystectomy at all. We discussed the risks of electively scheduling him in which case he would need to hold his Plavix therapy for 5 days preoperatively. We discussed the potential risk of infecting his NUCLEAR EQUIPMENT TEST ENGINEER shunt. We discussed the risk of stroke bleeding inadvertent intra-abdominal organ injury. We compared and contrasted elective versus emergency surgical intervention. He is aware that if he were to come in acutely ill or septic that a surgical procedure might not be possible at all and that would have to convert to a drainage procedure of his gallbladder rather than any type of definitive surgery. At this point the patient is interested in proceeding with an electively scheduled event. We will tentatively have scheduled look a potential day. The patient and nursing staff are aware that this procedure is anticipated to be of significantly increased complexity. As noted his Plavix will need to be held. Increased operative time will be requested. I appreciate the opportunity of assisting with the surgical care. The patient will then decide how he would like to proceed. He has also been offered the opportunity to see another surgeon if he feels that I cannot get to him in a timewise fashion that suits him. I had an ongoing discussion with the patient and now his for the first time today. The patient has leg and sacrum sores. They just got all the dressings changed today. They are interested in potentially staying overnight to allow for recovery and possible extended care placement. They are concerned that he uses a sit to stand device and may not be able to put pressure on his abdomen to pull himself up. He has evidence of the previous left lower quadrant stoma. He has evidence of a previous left upper quadrant PEG tube site. He also has a transverse incision in the right mid abdomen he is not aware of what was placed there. He has a transverse incision in the right lower quadrant from remote appendectomy. We had an extensive discussion regarding again technique benefit risk complication alternatives he has elevated liver function test. Hepatitis profile was negative. His LFTs have been chronically elevated. I have made the patient aware that we will attempt a laparoscopic approach and that I am not in favor converting to an open approach due to the patient's comorbidities and additional debility that this might cause. If we find extensive adhesions and are unable to do the procedure laparoscopically then may very well abort the attempt at the cholecystectomy. Hopefully a clear view will be able to be achieved. Regarding the patient's postoperative the management they are aware that we will have all of this itching underneath the skin and that local numbing medicine will be applied. We will simply need to see how he recovers. They have both have an opportunity ask and have questions answered. They are very much aware of the elevated liver function test and potential for liver disease and bleeding and complications. He desires to proceed at this time. Copy: Dr. Eris Lagos M.D., F.A.C.S
--- NOTE | 2023-08-30 10:55 | GALL_PTH ---
PATIENT: REGINA ROJAS LOC: MS3 U#:[id number] AGE/SX: 87/M ROOM: IN325 RE08/30/[address]: Dr. Jose Lagos MD : [id number] BED: 1 DIS: 09/05/2023 SPEC #: [id number] RECD: 08/30/23 14:47 STATUS: AZAR LAMA #: [id number] SHERIF: 08/30/23 10:[address]: Jose Lagos DEPT: SURGICAL PATHOLOGY RECD BY: Odalis Gary ENTERED: 08/31/23 10:46 SP TYPE: GALLBLTRINA KAYE DR: Dr. Eris Melendez MD Tissues: A - Gallbladder, NOS B - Liver, NOS Procedures: PAS with Diastase (control) Trichrome (control) Special Stain Group II PAS Stain (control) Surgery Specimen Level III Surgery Specimen Level V Retic (control) Iron Stain (control) HEADER OPERATION: Laparoscopic cholecystectomy with IOC, liver biopsy PRE-OP DIAGNOSIS: Gallstones TISSUE SUBMITTED: A - Gallbladder, B - Liver biopsy MICROSCOPIC DIAGNOSIS A. Gallbladder, cholecystectomy: Chronic cholecystitis with denudation of mucosa and cholelithiasis. B. Liver, biopsy: Cirrhosis. See comment. AM:wil 09/01/2023 COMMENT B. Reticulin and trichrome stains support broad-band fibrosis. Iron stain does not reveal intraparenchymal deposition iron. PAS and PASD stains do not reveal accumulation of abnormal proteins. All matched controls are appropriate. Sections show mild to focal moderate limited plate necrosis (grade 2). Broadband fibrosis engulfs large portions of hepatic parenchyma consistent with cirrhosis. Clinical correlation is suggested. MICROSCOPIC DESCRIPTION Slides are reviewed. GROSS DESCRIPTION A - Received is one container labeled with the patient's name and designated gallbladder. The specimen consists of a gallbladder measuring 11.0 cm in length and up to 6.0 cm in diameter. The external surface is pink-galvez, smooth and glistening for the most part. Focally it is granular, hemorrhagic and contains cautery artifact. The gallbladder contains a small amount of brownish-greenish bile and distended with multiple variable sized brownish-black stones measuring in aggregate 7.5 x 8.0 x 3.5 cm and 0.1 to 3.0 cm in greatest dimension. The mucosa is bile-stained and without any mass lesions. The gallbladder wall measures 0.1 cm in thickness. Panelboard Assembler sections from the gallbladder and the cystic duct are submitted in one cassette. B - Received in fixative is one container labeled with the patient's name and designated liver biopsy. The specimen consists of multiple irregular fragments of light galvez soft tissue that in aggregate measure 1.2 x 0.2 x 0.1 cm. The specimen is totally submitted in one cassette. / SJ:wil 08/31/2023 TC:3 CPT: 20062, 88434, 56494 x5
--- NOTE | 2023-08-30 10:57 | DCINST_ITS ---
Discharge Instructions Procedure General Surgery Diet Discharge Diet: Light diet - advance as tolerated (if you have questions about your diet instructions, please talk to you doctor.) Activity May shower in (days): 1 Lifting Restrictions: 10 pounds Dressing / Incision Call your doctor if your incision/area has: Continuous Slow Oozing, Sudden Increased Bleeding, Increased Pain/ Swelling, Increased Redness and Foul Smelling Discharge Call your doctor if you observe: Fever of 101 or Higher Suture Line Care: Avoid Pulling/Pushing and Avoid Pinching/Bending Additional Dressing/Incision Instructions:: Change or remove dressing in 4 days. Leave steri-strips in place for 1 week. Follow Up Care Please Follow Up With: Jose Lagos MD When: Call [phone] to make an appointment to be seen in about 10 days. You will also need to schedule an appointment with Dr. Prosper Mackey for approximately 4 to 6 weeks to review your pancreatic and common bile duct stents. Please arrange this appointment when you call the office as well. Test Results: Test results from this visit will be discussed in further detail at your follow- up appointment, if applicable. Discharge Plan Admission Admit Date/Time: 08/30/23 13:27 Primary Reason for Your Visit: Chronic cholecystitis cholelithiasis Attending Provider: Jose Lagos Primary Care Provider: Eris Melendez Discharge Orders/Prescriptions Prescriptions: Continued carvedilol 3.125 mg tablet 3.125 mg PO QHS Rx Instructions: must administer with a meal/food cyclobenzaprine 5 mg tablet 5 mg PO QHS methadone 5 mg tablet See Rx Instructions .ROUTE .COMPLEX Rx Instructions: 6.5 5mg tablets in 3 doses 2 tabs in the am ~ 0800 1.5 tabs at supper ~ 1800 3 tabs at bedtime ~ 2200 losartan 25 mg tablet 12.5 mg PO DAILY isosorbide mononitrate 10 mg tablet 10 mg tablet 10 mg PO QHS Rx Instructions: give doses 7 hrs apart sulfamethoxazole-trimethoprim [Bactrim DS] 800-160 mg tablet 1 tab PO DAILY magnesium oxide 500 mg capsule 250 mg PO BID levothyroxine 50 mcg tablet 50 mcg PO DAILY Patient Comments: TAKE 1 TABLET BY MOUTH ONCE DAILY Azo Cranberry 250 mg tablet,chewable 500 mg PO DAILY gabapentin 300 mg capsule 300 mg PO DAILY Patient Comments: nerve pain, seizures takes at 0800,1700,2200 Rx Instructions: Don't use while taking linezolid ascorbic acid (vitamin C) 1,000 mg tablet 500 mg PO BID furosemide 40 MG tablet 40 mg PO DAILY atorvastatin [Lipitor] 40 MG tablet 40 mg PO QHS pyridoxine (vitamin B6) 100 MG tablet 100 mg PO DAILY Patient Comments: supplement to improve metabolism takes at 1700 multivitamin,jj-hinc-ohiuyqie 1 TABLET tablet 1 tab PO DAILY Patient Comments: supplement takes at 1700 tamsulosin 0.4 MG capsule 0.4 mg PO 1700 doxepin 50 mg capsule 50 mg PO DAILY lithium carbonate 150 mg capsule 150 mg PO TID topiramate 100 mg tablet 50 mg PO BID Held clopidogrel [Plavix] 75 mg tablet 75 mg PO DAILY Hold Instructions: Resume on 09/04/23. Other Ambulatory Orders: 12 Lead EKG (Routine) Timeframe: [id number] Location: None Selected Ordered By: Dr. Jose Lagos Referrals / Follow Up: Eris Melendez MD [Primary Care Provider] -
[2023-08-30] MEDS: Clindamycin 900 MG/50 ML BAG 75 MG IV ×2 (11:04→21:20)
--- NOTE | 2023-08-30 11:35 | RAD_ITS ---
INDICATION: LAP BAUDILIO WITH IOC EXAMINATION/TECHNIQUE: Multiple fluoroscopic images of intraoperative cholangiogram were obtained. Total Fluoroscopic Time: 52 seconds COMPARISON: Nuclear medicine biliary scan of 07/13/2023. FINDINGS: A defect is seen in the common bile duct which may reflect retained stone. Dilated intrahepatic biliary ducts. The examination was not performed for diagnostic purposes. RAD/Cholangiogram/ O R,Initial IMPRESSION: Intraoperative cholangiogram as described above. Electronically Signed: Giovanni Bridges MD at 14:02 EDT ,
[2023-08-30] MEDS: Famotidine 20 MG in 0.9% NS 10 ML 300 MG IV (12:00)
[2023-08-30] MEDS: Hydrocortisone Sod Succinate 100 MG/2 ML Vial IV (12:05)
[2023-08-30] MEDS: Bupivacaine 0.5% PF 10 ML VIAL (13:24)
--- NOTE | 2023-08-30 13:34 | PCM.OPRPT ---
Report of Operation Date of Procedure: 08/30/23 Pre-Operative Diagnosis: Chronic cholecystitis cholelithiasis abnormal liver function test Post-Operative Diagnosis: Chronic cholecystitis cholelithiasis abnormal liver function test suspected choledocholithiasis Surgery/Procedure Performed:: Upper scopic cholecystectomy with cholangiograms. Sandro-Cut needle core right lobe liver liver biopsy. Description of Surgical Findings:: Timeout informed consent was obtained. 87-year-old gentleman was taken the operating placed on the table and a general tracheal intubation esthesia. Clindamycin 90 mg given intravenously preoperatively. The stoma in the left mid abdomen was excluded. The abdomen sterilely prepped and draped. 0.5% Marcaine was used as a local anesthetic throughout the procedure a total of 30 cc was used. Skin was skin sites were anesthetized. A vertical supraumbilical incision was created sharp dissection carried down through the subcu tissue the fascia was incised direct access was obtained and the sound catheter was inserted the abdomen insufflated with CO2 to a pressure of 10 mmHg pressure. The MACHINE SHOP INSPECTOR shunt was identified. Carefully trocars were placed in the right lateral upper abdomen right subcostal area in the epigastric area by palpation and attempted visualization the course of the MACHINE SHOP INSPECTOR shunt was felt to have been identified. There were adhesions of transverse colon to the anterior abdominal wall which had to be sharply transected. The gallbladder was then tightly distended. Tedious blunt dissection presents to the infundibular area where there was inflammatory change. Cystic duct cystic artery identified. Hemoclips were placed on the cystic duct stump incision made in the cystic duct and then cholangiogram catheter was inserted through one of the port sites fluoroscopically controlled cholangiograms were obtained and this suggested the distal common bile duct stone. Upon further imaging and then there was evidence of intrahepatic ductal filling but the proper hepatic duct quite difficult to visualize after all the contrast was then placed. It is of note that the patient received premedication for the contrast with famotidine and Benadryl and Solu-Cortef. The cystic artery and been identified the critical view had been identified a regular Hemoclip and metal clip was placed in the cystic artery regular Humalog and a metal was placed on the cystic duct stump the gallbladder was then tediously dissected free from the gallbladder bed it was very densely adherent small amount of bile bile and stone spillage occurred the gallbladder was released placed on the retrieval bag and then meticulously with suction and [place] forceps and the remaining stones were carefully removed the right upper quadrant irrigated and aspirated free of this fluid 3 pieces of tubular were placed in the liver bed to assist with hemostasis throughout the port sites a Sandro-Cut core biopsy was performed of the right lobe of the liver with a single biopsy. Hemostasis attained electrocautery. That core was placed on Telfa and placed in formalin. The gallbladder was in a retrieval bag. The right upper quadrant noted to be hemostatic. The gallbladder was exited the umbilicus due to the amount of stones and size of the stones the supraumbilical midline incision had been extended. Finally the gallbladder could be removed. The wound was closed with simple sutures of 0 Nurolon. Skin edges proximal interrupted 4 Monocryl subdermal stitches. Steri-Strips Telfa OpSite dressings applied. Sponge and instrument and needle counts were reported to the surgeon to be correct. Blood loss 20 cc. Specimen gallbladder and Sandro-Cut core right lobe liver biopsy. Drains none. Blood loss 20 cc. The patient was taken to recovery area in satisfied condition without apparent complication Jose Lagos M.D., F.A.C.S. Surgeon: Jose Lagos Type of Anesthesia: General and Local Anesthesiologist: Adithya Otoole
--- NOTE | 2023-08-30 15:16 | SUR.PHASEI ---
AWAITING ROOM ON FLOOR
--- NOTE | 2023-08-30 16:19 | SUR.PHASEII ---
PATIENT WITH CALL LIGHT ON. STATES SHE WOULD LIKE TO TALK TO A HEALTH ANALYTICS CONSULTANT BERONICA ABOUT PLACEMENT SOMEWHERE AFTER DISCHARGE. CALLED BEARING MACHINE OPERATOR AND LEFT A VOICEMAIL REGARDING PATIENT/ WISHES. INFORMED PATIENT AND THAT IF CASE MANAGEMENT DID NOT SPEAK TO THEM TONIGHT, THEN THEY WILL SPEAK TO THEM TOMORROW.
[2023-08-30] MEDS: Lithium Carbonate 150 MG Capsule PO (21:08)
[2023-08-30] MEDS: cycloBENZAPRine HCl 5 MG TABLET PO (21:08)
[2023-08-30] MEDS: Tamsulosin HCl 0.4 MG Capsule PO (21:08)
[2023-08-30] MEDS: Atorvastatin Calcium 40 MG Tablet PO (21:08)
[2023-08-30] MEDS: Carvedilol 3.125 MG TABLET PO (21:08)
[2023-08-30] MEDS: Magnesium Chloride 64 MG Delay Rel.Tablet PO (21:08)
[2023-08-30] MEDS: Topiramate 50 MG Tablet PO (21:09)
[2023-08-30] MEDS: Isosorbide Mononitrate 20 MG Tablet 10 MG PO (21:09)
[2023-08-30] MEDS: HYDROcodone Bitartrate/Apap 5/325 Tablet PO (21:14)
[2023-08-31] VITALS (10 sets, daily range): BP systolic 131–160; BP diastolic 57–72; PULSE 77–90; RESP 18–22; TEMP 36.6–37.7; O2SAT 93–99; BMI 24.3
[2023-08-31] MEDS: Clindamycin 900 MG/50 ML BAG 75 MG IV (02:05)
--- NOTE | 2023-08-31 04:10 | PCM.HOSP.N ---
Hospitalist Note Patient with onset of atypical chest pain, EKG with SR with non specific ST changes, trop x 1 normal range for patient. Pain moreso abdominal pain. Placed on telemetry to be cautious.
[2023-08-31] MEDS: HYDROcodone Bitartrate/Apap 5/325 Tablet PO (04:12)
[2023-08-31 05:04] LABS: Absolute Neutrophil Count 10.4 X10^3/uL (2.0-7.7); Basophil# 0.04 X10^3/uL; Basophil% 0.3 % (0-1); Eosinophil# 0.01 X10^3/uL; Eosinophils% 0.1 % (0-5); Hematocrit 40.8 % (40-54); Hemoglobin 13.2 g/dL (13.0-16.5); Lymphocyte % 5.2 % (19-41); Mean Corp Hgb Conc 32.4 g/dL (32-36); Mean Corpuscular Hgb 33.9 pg (27.0-32.0); Mean Corpuscular Volume 104.9 fL (80-94); Mean Platelet Vol. 9.5 fl (6.2-12.0); Monocyte# 0.38 X10^3/uL; Monocyte% 3.3 % (0-10); NRBC Flagged by Analyzer 0 % (0-5); Neutrophil # 10.41 X10^3/uL (2.7-7.7); Neutrophil % 90.5 % (47-70); POSITIVE DIFFERENTIAL YES; Platelet Count 148 K/mm3 (150-450); RBC Distribution Width CV 12.4 % (11.6-14.6); RBC Distribution Width SD 48.3 fl (35.1-43.9); Red Blood Count 3.89 M/mm3 (4.6-6.2); White Blood Count 11.5 K/mm3 (4.4-11.0)
[2023-08-31 05:17] LABS: International Normalized Ratio 1.1; Prothrombin Time (Protime)PT. 14.7 SECONDS (11.7-14.9)
[2023-08-31 05:18] LABS: Partial Thromboplast Time 27.1 Seconds (24.1-36.2)
[2023-08-31 05:22] LABS: Troponin-I HS 47 pg/mL (3.0-78.0)
[2023-08-31 05:23] LABS: Differential Indicated SCAN CRITERIA MET; Macrocytosis 1+; Platelet Estimate SLT DEC (ADEQ)
[2023-08-31 05:27] LABS: ALB/GLOB Ratio 0.8 RATIO (0.9-2.4); AST(SGOT) 123 U/L (15-37); Alanine Aminotransfer ALT/SGPT 211 U/L (16-61); Albumin, Serum 3.1 g/dL (3.2-5.0); Alkaline Phosphatase 221 U/L (45-117); Amylase 50 U/L (25-115); Anion Gap 5 (5-15); BUN 22 mg/dL (7-18); BUN/Creat Ratio 23.1 RATIO (10-20); Calcium,Total 8.6 mg/dL (8.5-10.1); Chloride 104 mmol/L (98-107); Creatinine, Serum 0.95 mg/dL (0.70-1.30); EST Glomerular Filtration Rate 80 mL/min (>60); Est Glom Filt Rate - Afr Amer 96 mL/min (>60); Glucose 177 mg/dL (74-106); Lipase < 10 U/L (13-75); Potassium 3.8 mmol/L (3.5-5.1); Protein, Total 7.1 g/dL (6.4-8.2); Sodium Level 137 mmol/L (136-145)
[2023-08-31 05:35] LABS: Thyroid Stim Hormone (TSH) 2.22 uIU/mL (0.358-3.74)
--- NOTE | 2023-08-31 06:41 | PN.SURG_ITS ---
Subjective Subjective Patient agitated and complaining of abdominal pain. His son was called in at 3 AM to help settle him. The patient is very nonspecific as to the source of the pain. Objective Data Objective Data Vital Signs: Vital Signs Temp Pulse Resp BP Pulse Ox O2 Del Method 98.7 F 86 18 145/68 H 98 Room Air 08/31/23 03:09 08/31/23 03:09 08/31/23 03:09 08/31/23 03:09 08/31/23 03:09 08/31/23 03:09 Oxygen Delivery Method Room Air Weight: 170 lb Body Mass Index (BMI) 24.3 Intake & Output: Intake and Output for Last 24 Hours 08/29/23 08/30/23 08/31/23 23:59 23:59 23:59 Intake Total 110 / 710 650 / 650 Output Total 550 / 750 350 / 350 Balance -440 / -40 300 / 300 Lab / Micro Data 08/31/23 04:53 08/31/23 04:53 Labs: Laboratory Results - last 24 hr 08/31/23 04:53: WBC 11.5 H, RBC 3.89 L, Hgb 13.2, Hct 40.8, MCV 104.9 H, MCH 33.9 H, MCHC 32.4, RDW Std Deviation 48.3 H, RDW Coeff of Nayeli 12.4, Plt Count 148 L, MPV 9.5, Immature Gran % (Auto) 0.600, Neut % (Auto) 90.5 H, Lymph % (Auto) 5.2 L, [place] % (Auto) 3.3, Eos % (Auto) 0.1, Baso % (Auto) 0.3, Absolute Neuts (auto) 10.4 H, Absolute Lymphs (auto) 0.60 L, Nucleated RBC % 0, Platelet Estimate SLT DEC, Macrocytosis 1+, PT 14.7, INR 1.1, APTT 27.1, Sodium 137, Potassium 3.8, Chloride 104, Carbon Dioxide 28.0, Anion Gap 5, BUN 22 H, C reatinine 0.95, Estim Creat Clear Calc 58.70, Est GFR (MDRD) Af Amer 96, Est GFR (MDRD) Non-Af 80, BUN/Creatinine Ratio 23.1 H, Glucose 177 H, Calcium 8.6, Total Bilirubin 1.20 H, AST 123 H, ALT 211 H, Alkaline Phosphatase 221 H, Troponin I High Sens 47, Total Protein 7.1, Albumin 3.1 L, Globulin 4.0, Albumin/Globulin Ratio 0.8 L, Amylase 50, Lipase < 10 L, TSH 2.22 Radiography Diagnostic Testing: Radiology Impression Cholangiogram 08/30/23 11:35 IMPRESSION: Intraoperative cholangiogram as described above. Electronically Signed: Giovanni Bridges MD at 14:02 EDT , Physical Exam Resp Resp Narrative: Diminished respiratory excursions, splinting GI GI Narrative: Distended, diffusely tender, quiet bowel sounds, stoma inspected appears to be patent but no flatus in the bag Assessment & Plan Assessment/Plan (1) Choledocholithiasis: PLAN: Patient had a very difficult operation yesterday due to the inflammatory changes of the gallbladder and difficulty with resection. Choledocholithiasis was identified which I feel is likely a potential source of his bouts of intermittent recent pain. Perhaps also related to his elevated liver function test. Bilirubin is elevated today when it had been previously. Etiology not quite clear. At the completion of his operation clips on the cystic duct and cystic artery were cleanly identified and is noted to cholangiogram had been obtained demonstrating intraductal dilatation. At this point low suspicion for common duct issue or bile duct leak based upon the security achieved during the operation. The patient is scheduled for an ERCP today. It is of additional note that the patient is on chronic narcotic therapy. Unfortunate I suspect that this has additional complicated his initial postoperative recovery and is likely adding to a dense ileus. I was contacted by Dr. Tracey Adkins that she was asked to do a cardiac work-up last night because of his concerns about chest pain. It appears that Dr. Adkins's assessment was more that that pain was abdominal rather than chest and the EKG and troponins were normal. On my review this morning patient is not complaining of chest pain I believe that this is all an abdomen in origin. Jose Lagos M.D., F.A.C.S.
--- NOTE | 2023-08-31 10:03 | CASEMGMT ---
Spoke with Katt CASTELLON regarding pt dc plan. Pt is admitted to [facility]. Plan for ERCP today and dc tomorrow. Pt to need SNF. Updated SW.
--- NOTE | 2023-08-31 11:07 | WOUNDNOTE ---
wound photo: right ischium
--- NOTE | 2023-08-31 11:08 | WOUNDNOTE ---
wound photo: buttocks
--- NOTE | 2023-08-31 11:08 | WOUNDNOTE ---
wound photo: right lateral lower leg
--- NOTE | 2023-08-31 11:17 | CASEMGMT ---
Discharge Planning A list of?SNF?providers including quality and resource use data and consistent with the patient's preferred geographic region, medical needs, and insurance network was created in [employer] Guide.? This list was provided to the SW. Erna Hughes, Discharge Planning Asst.
--- NOTE | 2023-08-31 12:18 | CASEMGMT ---
Addendum entered by Janet Zhang 08/31/23 13:47: Social Work SW met with pt son Zac who states SNF choices are 1. [facility] 2. [facility]. Zac requested SW speak with pt . SW met with Lucille who confirms SNF choices listed above. SW explained private pay costs in the event that precert is denied. DC hotel assistant manager to make referral to [facility]. PT/OT updated on pt situation and request for evaluation. Plan: [facility], pending acceptance and precert SLOANE Morin Original Note: Social Work SW met with pt and son Zac and introduced self and role of SW. Pt's Lucille was admitted to this hospital over night. Pt requesting SW go to Lucille's room and speak to her regarding discharge plan. Per pt request, DEBBIE and son Zac met with Lucille and discussed pt's discharge plan. Lucille does not feel pt can return home at this time and will likely need short term SNF placement. DEBBIE educated pt to referral process, insurance precert and possibility that insurance will deny SNF coverage and pt would then be private pay at SNF. expressing understanding. A list of SNF providers including quality and resource use data and consistent with the patient?s preferred geographic region, medical needs, and insurance network were provided from the [employer] Guide. Lucille would like time to consider options and talk to pt. DEBBIE will meet with Lucille later today for SNF choice. SLOANE Morin
--- NOTE | 2023-08-31 13:18 | PCM.PN.SRG ---
Subjective Subjective Patient was complaining of abdominal cramping Objective Data Objective Data Vital Signs: Vital Signs Temp Pulse Resp BP Pulse Ox O2 Del Method 98.1 F 77 18 160/69 H 96 Room Air 08/31/23 09:39 08/31/23 09:39 08/31/23 09:39 08/31/23 09:39 08/31/23 09:39 08/31/23 10:02 Oxygen Delivery Method Room Air Weight: 170 lb Body Mass Index (BMI) 24.3 Intake & Output: Intake and Output for Last 24 Hours 08/29/23 08/30/23 08/31/23 23:59 23:59 23:59 Intake Total 110 / 710 650 / 650 Output Total 550 / 750 1310 / 1310 Balance -440 / -40 -660 / -660 Lab / Micro Data 08/31/23 04:53 08/31/23 04:53 Labs: Laboratory Results - last 24 hr 08/31/23 04:53: WBC 11.5 H, RBC 3.89 L, Hgb 13.2, Hct 40.8, MCV 104.9 H, MCH 33.9 H, MCHC 32.4, RDW Std Deviation 48.3 H, RDW Coeff of Nayeli 12.4, Plt Count 148 L, MPV 9.5, Immature Gran % (Auto) 0.600, Neut % (Auto) 90.5 H, Lymph % (Auto) 5.2 L, [place] % (Auto) 3.3, Eos % (Auto) 0.1, Baso % (Auto) 0.3, Absolute Neuts (auto) 10.4 H, Absolute Lymphs (auto) 0.60 L, Nucleated RBC % 0, Platelet Estimate SLT DEC, Macrocytosis 1+, PT 14.7, INR 1.1, APTT 27.1, Sodium 137, Potassium 3.8, Chloride 104, Carbon Dioxide 28.0, Anion Gap 5, BUN 22 H, Creatinine 0.95, Estim Creat Clear Calc 58.70, Est GFR (MDRD) Af Amer 96, Est GFR (MDRD) Non-Af 80, BUN/Creatinine Ratio 23.1 H, Glucose 177 H, Calcium 8.6, Total Bilirubin 1.20 H, AST 123 H, ALT 211 H, Alkaline Phosphatase 221 H, Troponin I High Sens 47, Total Protein 7.1, Albumin 3.1 L, Globulin 4.0, Albumin/Globulin Ratio 0.8 L, Amylase 50, Lipase < 10 L, TSH 2.22 Radiography Diagnostic Testing: Radiology Impression Cholangiogram 08/30/23 11:35 IMPRESSION: Intraoperative cholangiogram as described above. Electronically Signed: Giovanni Bridges MD at 14:02 EDT , Assessment & Plan Assessment/Plan (1) Choledocholithiasis: PLAN: Patient had laparoscopic cholecystectomy yesterday and was found to have choledocholithiasis on intraoperative cholangiogram. Patient was complaining of cramping pain this morning. I discussed ERCP with him. I discussed the risks including but not limited to bleeding, infection, injury to other organs such as the bowel, bile duct or causing pancreatitis. Patient understands the risks and is willing to proceed. Prosper Mackey MD Pager: [facility] [address] [place] [address], [address] [place] [address] Office:
--- NOTE | 2023-08-31 14:03 | CASEMGMT ---
Discharge Planning Referral sent to [facility]. Erna Hughes, Discharge Planning Asst.
--- NOTE | 2023-08-31 14:10 | RAD_ITS ---
STUDY: ERCP. REASON FOR EXAM: Male, 87 years old. Dilated common bile duct and choledocholithiasis. FLUOROSCOPY TIME (if supplied): ( 134.7 seconds ) minutes/seconds. 57.8 mGy TECHNIQUE: Intraoperative fluoroscopic services provided for biliary stent placement. COMPARISON: None. FINDINGS: A biliary stent is seen within the common bile duct. RAD/ERCP Biliary/Pancreas IMPRESSION: Biliary stent has been placed in the common bile duct. Electronically Signed: Mike Cha MD at 15:12 EDT ,
[2023-08-31] MEDS: Lactated Ringers 1,000 ML 15 ML IV (14:30)
--- NOTE | 2023-08-31 14:54 | OP.ERCP_ITS ---
Patient Name: Skyler Sabillon Procedure Date: 08/31/2023 1:48 PM Date of : 1935 Age: 87 Procedure: ERCP Indications: Bile duct stone(s) Providers: Prosper Mackey MD Referring MD: Jose Lagos MD Medicines: General Anesthesia Patient Profile: This is an 87 year old male. Refer to note in patient chart for documentation of history and physical. Complications: No immediate complications. Estimated blood loss: None Procedure: Pre-Anesthesia Assessment: - Prior to the procedure, a History and Physical was performed, and patient medications and allergies were reviewed. The patient's tolerance of previous anesthesia was also reviewed. The risks and benefits of the procedure and the sedation options and risks were discussed with the patient. All questions were answered, and informed consent was obtained. Prior Anticoagulants: The patient has taken no anticoagulant or antiplatelet agents. After reviewing the risks and benefits, the patient was deemed in satisfactory condition to undergo the procedure. After obtaining informed consent, the scope was passed under direct vision. Throughout the procedure, the patient's blood pressure, pulse, and oxygen saturations were monitored continuously. The Duodenoscope was introduced through the mouth, and advanced to the duodenum and used to inject contrast into the bile duct and ventral pancreatic duct. The ERCP was somewhat difficult. The patient tolerated the procedure well. Scope In: 2:20:21 PM Scope Out: 2:46:18 PM Total Procedure Duration Time 0 hours 25 minutes 57 seconds Findings: The ampulla was bulging. A wire was placed into the ampulla and into the pancreatic duct. A new wire was loaded into the sphingterotome. A 0.035 inch x 260 cm straight Dreamwire was passed into the biliary tree. The sphincterotome was passed over the guidewire and the bile duct was then deeply cannulated. Contrast was injected. Biliary sphincterotomy was made with a monofilament sphincterotome using ERBE electrocautery. There was no post-sphincterotomy bleeding. The biliary tree was swept with a 12 mm balloon starting at the bifurcation. Two stones were removed. No stones remained. One 10 Fr by 5 cm plastic stent with a single external flap and a single internal flap was placed into the common bile duct. Bile flowed through the stent. The stent was in good position. One 4 Fr by 5 cm plastic stent with two external flaps and no internal flaps was placed into the ventral pancreatic duct. Clear fluid flowed through the stent. The stent was in good position. The upper GI tract was traversed under direct vision without detailed examination. Scattered moderate inflammation with hemorrhage characterized by adherent blood was found in the stomach. Impression: - Choledocholithiasis was found. Complete removal was accomplished by biliary sphincterotomy and balloon extraction. - A biliary sphincterotomy was performed. - The biliary tree was swept. - One plastic stent was placed into the common bile duct. - One plastic stent was placed into the ventral pancreatic duct. Recommendation: - [facility]. Procedure Code(s): --- Professional --- 57351, Endoscopic retrograde cholangiopancreatography (ERCP); with placement of endoscopic stent into biliary or pancreatic duct, including pre- and post-dilation and guide wire passage, when performed, including sphincterotomy, when performed, each stent [id number], 59, Endoscopic retrograde cholangiopancreatography (ERCP); with placement of endoscopic stent into biliary or pancreatic duct, including pre- and post-dilation and guide wire passage, when performed, including sphincterotomy, when performed, each stent [id number], Endoscopic retrograde cholangiopancreatography (ERCP); with removal of calculi/debris from biliary/pancreatic duct(s) Diagnosis Code(s): --- Professional --- K80.50, Calculus of bile duct without cholangitis or cholecystitis without obstruction CPT copyright 2021 [employer]. All rights reserved. The codes documented in this report are preliminary and upon gas flow regulator review may be revised to meet current compliance requirements. Prosper Mackey MD 08/31/2023 2:53:54 PM This report has been signed electronically. Number of Addenda: 0 Note Initiated On: 08/31/2023 1:48 PM
--- NOTE | 2023-08-31 14:54 | OP.CCLET_ITS ---
08/31/2023 Eris Melendez [address] [place] [address] Re : ERCP procedure for Skyler Sabillon Dear Dr. Melendez This procedure was performed on August. My impressions and recommendations are as follows: Impressions : - Choledocholithiasis was found. Complete removal was accomplished by biliary sphincterotomy and balloon extraction. - A biliary sphincterotomy was performed. - The biliary tree was swept. - One plastic stent was placed into the common bile duct. - One plastic stent was placed into the ventral pancreatic duct. Recommendations : - [facility]. My findings are described in the full procedure note, which is enclosed. If I can be of further assistance, please feel free to contact me at Doctor phone number(s): , Work: . Sincerely, Prosper Makcey MD 08/31/2023 2:53:54 PM This report has been signed electronically.
--- NOTE | 2023-08-31 16:18 | CASEMGMT ---
Met with patients to complete PALOMO form. PALOMO form explained to (pt's who voiced understanding and signed form. Original form placed in pt?s chart and copy provided to patients .. Erna Hughes, Discharge Planning Asst.
[2023-08-31] MEDS: Gabapentin 300 MG Capsule PO (16:31)
[2023-08-31] MEDS: Furosemide 40 MG Tablet PO (16:32)
[2023-08-31] MEDS: Smz/Tmp Ds Tablet 1 TABLET PO (16:32)
[2023-08-31] MEDS: Losartan Potassium 25 MG Tablet 12.5 MG PO (16:32)
[2023-08-31] MEDS: DOXEPIN HCL 50 MG CAPSULE PO (16:32)
[2023-08-31] MEDS: Magnesium Chloride 64 MG Delay Rel.Tablet PO ×2 (16:33→21:14)
[2023-08-31] MEDS: Tamsulosin HCl 0.4 MG Capsule PO (16:33)
[2023-08-31] MEDS: Isosorbide Mononitrate 20 MG Tablet 10 MG PO (21:13)
[2023-08-31] MEDS: Carvedilol 3.125 MG TABLET PO (21:13)
[2023-08-31] MEDS: cycloBENZAPRine HCl 5 MG TABLET PO (21:13)
[2023-08-31] MEDS: Topiramate 50 MG Tablet PO (21:13)
[2023-08-31] MEDS: Atorvastatin Calcium 40 MG Tablet PO (21:14)
[2023-08-31] MEDS: Lithium Carbonate 150 MG Capsule PO (21:14)
[2023-09-01 03:26] VITALS: BP 154/71; PULSE 93; RESP 18; TEMP 36.6; O2SAT 94
[2023-09-01] MEDS: Ondansetron 4 MG/2 ML Vial IV ×2 (03:31→20:58)
[2023-09-01] MEDS: HYDROcodone Bitartrate/Apap 5/325 Tablet PO ×2 (03:31→11:38)
--- NOTE | 2023-09-01 06:21 | PCM.PN.SRG ---
Subjective Subjective Patient is resting comfortably. He has no particular complaints. Feels much better than yesterday. Feels like he is ready for discharge Objective Data Objective Data Vital Signs: Vital Signs Temp Pulse Resp BP Pulse Ox O2 Del Method O2 Flow Rate 98 F 93 18 154/71 H 94 Room Air 2 09/01/23 03:26 09/01/23 03:26 09/01/23 03:26 09/01/23 03:26 09/01/23 03:26 09/01/23 03:26 08/31/23 15:55 Oxygen Flow Rate (L/min) 2 Oxygen Delivery Method Room Air Weight: 170 lb Body Mass Index (BMI) 24.3 Intake & Output: Intake and Output for Last 24 Hours 08/30/23 08/31/23 09/01/23 23:59 23:59 23:59 Intake Total 110 / 710 1752 / 1752 Output Total 550 / 750 2060 / 2260 200 / 200 Balance -440 / -40 -308 / -508 -200 / -200 Lab / Micro Data 08/31/23 04:53 08/31/23 04:53 Radiography Diagnostic Testing: Radiology Impression Endo Retro Cholangiopancreatogram 08/31/23 14:10 IMPRESSION: Biliary stent has been placed in the common bile duct. Electronically Signed: Mike Cha MD at 15:12 EDT , Physical Exam Const oriented x3 and no apparent distress Resp normal respiratory effort GI GI Narrative: Abdomen is soft, he is nontender, stoma is pink and viable, laparoscopic incisions clean and dry Assessment & Plan Assessment/Plan (1) Choledocholithiasis: (2) Cholelithiasis with chronic cholecystitis: QUALIFIERS: Cholelithiasis location: gallbladder Biliary obstruction: without biliary obstruction Qualified Code(s): K80.10 - Calculus of gallbladder with chronic cholecystitis without obstruction PLAN: Patient is status post laparoscopic cholecystectomy and cholangiograms with subsequent ERCP for choledocholithiasis. Making excellent progress. Morning laboratory pending. Plan discharge to nursing facility to facilitate due to the patient's other medical comorbidities. Jose Lagos M.D., F.A.C.S.
--- NOTE | 2023-09-01 06:24 | PCM.DC.SUM ---
Providers Date of Admission: 08/30/23 Date of Discharge: 09/01/23 Primary Care Physician: Dr. Eris Melendez MD Attending Physician: Dr. Prosper Mackey Consultations 08/30/23 14:00 Consult: Onc/Wound/medart operator Routine Comment: Reason for Consult:: Multiple wounds and stoma Reason For Visit: Laparoscopic, Cholecystectomy with Diagnosis Discharge Diagnosis (1) Choledocholithiasis: Status: Acute Code(s): K80.50 - Calculus of bile duct without cholangitis or cholecystitis without obstruction (2) Cholelithiasis with chronic cholecystitis: Status: Chronic Code(s): K80.10 - Calculus of gallbladder with chronic cholecystitis without obstruction Qualifiers: Biliary obstruction: without biliary obstruction Cholelithiasis location: gallbladder Qualified Code(s): K80.10 - Calculus of gallbladder with chronic cholecystitis without obstruction Plan: Patient is status post laparoscopic cholecystectomy and cholangiograms with subsequent ERCP for choledocholithiasis. Making excellent progress. Morning laboratory pending. Plan discharge to nursing facility to facilitate due to the patient's other medical comorbidities. Jose Lagos M.D., F.A.C.S. Medications at Discharge Home Medications furosemide 40 mg tablet 40 mg PO DAILY diuretic 08/11/18 atorvastatin 40 mg tablet (Lipitor) 40 mg PO QHS CHOLESTEROL 11/06/18 multivitamin,vy-crlf-jehjdlfm 27 mg-0.4 mg tablet 1 tab PO DAILY SUPPLEMENT 11/06/18 pyridoxine (vitamin B6) 100 mg tablet 100 mg PO DAILY SUPPLEMENT 11/06/18 tamsulosin 0.4 mg capsule 0.4 mg PO 1700 BPH 11/06/18 carvedilol 3.125 mg tablet 3.125 mg PO QHS heart 02/06/20 cyclobenzaprine 5 mg tablet 5 mg PO QHS pain 02/06/20 isosorbide mononitrate 10 mg tablet 10 mg PO QHS to dilate blood vessels in legs 02/06/20 losartan 25 mg tablet 12.5 mg PO DAILY stop if low bp per Eris Melendez MD 02/06/20 methadone 5 mg tablet See Rx Instructions .Route .COMPLEX Check with primary doctor 02/06/20 sulfamethoxazole 800 mg-trimethoprim 160 mg tablet (Bactrim DS) 1 tab PO DAILY to prevent Nocardia UTI 02/06/20 ascorbic acid (vitamin C) 1,000 mg tablet 500 mg PO BID supplement 10/12/20 cranberry fruit concentrate 250 mg chewable tablet (Azo Cranberry) 500 mg PO DAILY bladder 10/12/20 levothyroxine 50 mcg tablet 50 mcg PO DAILY thyroid 10/12/20 gabapentin 300 mg capsule 300 mg PO DAILY nerve pain 06/23/23 magnesium oxide 500 mg capsule 250 mg PO BID supplement 06/23/23 doxepin 50 mg capsule 50 mg PO DAILY 08/17/23 lithium carbonate 150 mg capsule 150 mg PO TID 08/17/23 topiramate 100 mg tablet 50 mg PO BID 08/17/23 clopidogrel 75 mg tablet (Plavix) 75 mg PO DAILY blood thinner #30 tabs 09/01/23 hydrocodone-acetaminophen 5-325mg 5mg-325mg 1 tab PO Q8H PRN pain 3 days #10 tabs 09/01/23 Hospital Course Operations - (August 30, 2023: Laparoscopic cholecystectomy with cholangiograms, August 31, 2023: ERCP) Summary of Care Provided Hospital Course: 87-year-old gentleman presented as an outpatient on August 30, 2023 he underwent a laparoscopic cholecystectomy. This was technically demanding. Procedure proceeded well cholangiogram was done demonstrating choledocholithiasis. His first postoperative night he was somewhat uncomfortable. Subsequently August 31, [address] Prosper Mackey an ERCP was performed with removal of common bile duct stones and placement of both a pancreatic and biliary stent. On September 01, 2023 patient was demonstrating significant improvement allowing for discharge to a nursing facility. The patient has other medical comorbidities including multiple wound center treated wounds which have been chronic and antecedent to this visit. On the night of August 31, 2023 Dr. Tracey Adkins hospice was consulted because concerns about possible chest pain. EKG and troponins were unremarkable. It was the impression of Dr. Tracey Adkins that the patient actually was simply having abdominal pain and not actual true chest pain after the completion of her evaluation. It is anticipated the patient will have outpatient follow-up regarding his laparoscopic cholecystectomy and cholangiogram and Sandro-Cut needle core liver biopsy with subsequent pathology as he has chronically elevated liver function test which may be secondary to his chronic cholecystitis or to his choledocholithiasis. He will have subsequent follow-up with Dr. Prosper Mackey regarding his pancreatic and biliary stents Jose Lagos M.D., F.A.C.S. Weight / BMI Weight Weight: 170 lb Body Mass Index (BMI) 24.3 ABG / Lab / Microbiology Data 08/31/23 04:53 08/31/23 04:53 Radiography Diagnostic Testing: Radiology Impression Endo Retro Cholangiopancreatogram 08/31/23 14:10 IMPRESSION: Biliary stent has been placed in the common bile duct. Electronically Signed: Mike Cha MD at 15:12 EDT , D/C Instructions Discharge Diet: Light diet - advance as tolerated (if you have questions about your diet instructions, please talk to you doctor.) May shower in (days): 1 Call your doctor if your incision/area has: Continuous Slow Oozing, Sudden Increased Bleeding, Increased Pain/ Swelling, Increased Redness and Foul Smelling Discharge Call your doctor if you observe: Fever of 101 or Higher Suture Line Care: Avoid Pulling/Pushing and Avoid Pinching/Bending Additional Dressing/Incision Instructions: Change or remove dressing in 2 days. Leave steri-strips in place for 1 week. Patient's chronic antecedent sacral lower extremity wound care management as per previously outlined by the wound care center and as currently treated per nursing enterostomal wound care management. Please Follow Up With: Jose Lagos MD When: Call [phone] to make an appointment to be seen in about 10 days. You will also need to schedule an appointment with Dr. Prosper Mackey for approximately 4 to 6 weeks to review your pancreatic and common bile duct stents. Please arrange this appointment when you call the office as well. Meaningful Use Info Meaningful Use Diagnoses (Choose all that apply): None applicable Discharge Plan Admission Admit Date/Time: 08/30/23 13:27 Primary Reason for Your Visit: Chronic cholecystitis cholelithiasis, choledocholithiasis, abnormal liver f Attending Provider: Jose Lagos Primary Care Provider: Eris Melendez Discharge Orders/Prescriptions Prescriptions: New hydrocodone-acetaminophen 5-325 mg tablet 1 tab PO Q8H PRN (Reason: pain) 3 Days Qty: 10 0RF Continued carvedilol 3.125 mg tablet 3.125 mg PO QHS Rx Instructions: must administer with a meal/food cyclobenzaprine 5 mg tablet 5 mg PO QHS methadone 5 mg tablet See Rx Instructions .ROUTE .COMPLEX Rx Instructions: 6.5 5mg tablets in 3 doses 2 tabs in the am ~ 0800 1.5 tabs at supper ~ 1800 3 tabs at bedtime ~ 2200 losartan 25 mg tablet 12.5 mg PO DAILY isosorbide mononitrate 10 mg tablet 10 mg tablet 10 mg PO QHS Rx Instructions: give doses 7 hrs apart sulfamethoxazole-trimethoprim [Bactrim DS] 800-160 mg tablet 1 tab PO DAILY magnesium oxide 500 mg capsule 250 mg PO BID levothyroxine 50 mcg tablet 50 mcg PO DAILY Patient Comments: TAKE 1 TABLET BY MOUTH ONCE DAILY Azo Cranberry 250 mg tablet,chewable 500 mg PO DAILY gabapentin 300 mg capsule 300 mg PO DAILY Patient Comments: nerve pain, seizures takes at 0800,1700,2200 Rx Instructions: Don't use while taking linezolid ascorbic acid (vitamin C) 1,000 mg tablet 500 mg PO BID furosemide 40 MG tablet 40 mg PO DAILY atorvastatin [Lipitor] 40 MG tablet 40 mg PO QHS pyridoxine (vitamin B6) 100 MG tablet 100 mg PO DAILY Patient Comments: supplement to improve metabolism takes at 1700 multivitamin,bw-ftnx-tishxgiv 1 TABLET tablet 1 tab PO DAILY Patient Comments: supplement takes at 1700 tamsulosin 0.4 MG capsule 0.4 mg PO 1700 doxepin 50 mg capsule 50 mg PO DAILY lithium carbonate 150 mg capsule 150 mg PO TID topiramate 100 mg tablet 50 mg PO BID clopidogrel [Plavix] 75 mg tablet 75 mg PO DAILY Qty: 30 0RF Rx Instructions: May resume clopidogrel 75 mg orally daily on September 03, 2023 per his home prescription. New prescription not required. Other Ambulatory Orders: 12 Lead EKG (Routine) Timeframe: [id number] Location: None Selected Ordered By: Dr. Jose Lagos Referrals / Follow Up: Eris Melendez MD [Primary Care Provider] - Disposition Disposition (needs filled in before D/C Order can be placed): Assisted Facility
[2023-09-01] MEDS: Acetaminophen 325 MG Tablet 650 MG PO ×2 (06:25→20:58)
[2023-09-01] MEDS: Lithium Carbonate 150 MG Capsule PO ×3 (06:25→20:44)
[2023-09-01] MEDS: Levothyroxine 50 MCG Tablet PO (06:25)
[2023-09-01 07:36] LABS: Absolute Lymphocyte Count 0.85 X10^3/uL (0.83-4.51); Absolute Neutrophil Count 11.3 X10^3/uL (2.0-7.7); Basophil# 0.01 X10^3/uL; Basophil% 0.1 % (0-1); Eosinophil# 0.03 X10^3/uL; Eosinophils% 0.2 % (0-5); Hematocrit 39.3 % (40-54); Hemoglobin 12.8 g/dL (13.0-16.5); Lymphocyte # 0.85 X10^3/ul (0.83-4.51); Lymphocyte % 6.6 % (19-41); Mean Corp Hgb Conc 32.6 g/dL (32-36); Mean Corpuscular Hgb 34.1 pg (27.0-32.0); Mean Corpuscular Volume 104.8 fL (80-94); Monocyte# 0.65 X10^3/uL; NRBC Flagged by Analyzer 0 % (0-5); Neutrophil # 11.33 X10^3/uL (2.7-7.7); Neutrophil % 87.6 % (47-70); Platelet Count 133 K/mm3 (150-450); RBC Distribution Width CV 12.3 % (11.6-14.6); RBC Distribution Width SD 48.1 fl (35.1-43.9); Red Blood Count 3.75 M/mm3 (4.6-6.2); White Blood Count 12.9 K/mm3 (4.4-11.0)
[2023-09-01 07:54] LABS: ALB/GLOB Ratio 0.7 RATIO (0.9-2.4); AST(SGOT) 52 U/L (15-37); Alanine Aminotransfer ALT/SGPT 123 U/L (16-61); Albumin, Serum 2.6 g/dL (3.2-5.0); Alkaline Phosphatase 156 U/L (45-117); Anion Gap 5 (5-15); BUN 20 mg/dL (7-18); BUN/Creat Ratio 24.8 RATIO (10-20); Calcium,Total 8.6 mg/dL (8.5-10.1); Chloride 102 mmol/L (98-107); EST Glomerular Filtration Rate 97 mL/min (>60); Est Glom Filt Rate - Afr Amer 117 mL/min (>60); Globulin 3.5 g/dL (2.2-4.2); Glucose 140 mg/dL (74-106); Lipase 13 U/L (13-75); Potassium 3.1 mmol/L (3.5-5.1); Protein, Total 6.1 g/dL (6.4-8.2); Sodium Level 135 mmol/L (136-145)
[2023-09-01] MEDS: Polyethylene Glycol 3350 17 GM PACKET PO (09:10)
[2023-09-01] MEDS: Topiramate 50 MG Tablet PO ×2 (09:11→20:44)
[2023-09-01] MEDS: Potassium Chloride Oral Tablet 20 MEQ 40 MEQ PO (09:26)
[2023-09-01] MEDS: Losartan Potassium 25 MG Tablet 12.5 MG PO (09:26)
[2023-09-01] MEDS: Gabapentin 300 MG Capsule PO (09:27)
[2023-09-01] MEDS: Furosemide 40 MG Tablet PO (09:27)
[2023-09-01] MEDS: Magnesium Chloride 64 MG Delay Rel.Tablet PO ×2 (09:27→20:44)
[2023-09-01 09:30] VITALS: BP 140/69; PULSE 79; RESP 18; TEMP 36.4; O2SAT 95
--- NOTE | 2023-09-01 10:38 | CASEMGMT ---
Discharge Planning Updates sent to [facility] via [employer]. Erna Hughes, Discharge Planning Asst.
--- NOTE | 2023-09-01 11:01 | PHA.DC_ITS ---
Pharmacy [place] Med Reconciliation Pharmacy Service has performed discharge medication reconciliation for this patient upon transfer to [facility] The patient's discharge medication list was reviewed for discrepancies and discrepancies were resolved. Medications at Discharge Home Medications furosemide 40 mg tablet 40 mg PO DAILY diuretic 08/11/18 atorvastatin 40 mg tablet (Lipitor) 40 mg PO QHS CHOLESTEROL 11/06/18 multivitamin,if-dnzt-jwquiycj 27 mg-0.4 mg tablet 1 tab PO DAILY SUPPLEMENT 11/06/18 pyridoxine (vitamin B6) 100 mg tablet 100 mg PO DAILY SUPPLEMENT 11/06/18 tamsulosin 0.4 mg capsule 0.4 mg PO 1700 BPH 11/06/18 carvedilol 3.125 mg tablet 3.125 mg PO QHS heart 02/06/20 cyclobenzaprine 5 mg tablet 5 mg PO QHS pain 02/06/20 isosorbide mononitrate 10 mg tablet 10 mg PO QHS to dilate blood vessels in legs 02/06/20 losartan 25 mg tablet 12.5 mg PO DAILY stop if low bp per Eris Melendez MD 02/06/20 methadone 5 mg tablet See Rx Instructions .Route .COMPLEX Check with primary doctor 02/06/20 sulfamethoxazole 800 mg-trimethoprim 160 mg tablet (Bactrim DS) 1 tab PO DAILY to prevent Nocardia UTI 02/06/20 ascorbic acid (vitamin C) 1,000 mg tablet 500 mg PO BID supplement 10/12/20 cranberry fruit concentrate 250 mg chewable tablet (Azo Cranberry) 500 mg PO DAILY bladder 10/12/20 levothyroxine 50 mcg tablet 50 mcg PO DAILY thyroid 10/12/20 gabapentin 300 mg capsule 300 mg PO DAILY nerve pain 06/23/23 magnesium oxide 500 mg capsule 250 mg PO BID supplement 06/23/23 doxepin 50 mg capsule 50 mg PO DAILY 08/17/23 lithium carbonate 150 mg capsule 150 mg PO TID 08/17/23 topiramate 100 mg tablet 50 mg PO BID 08/17/23 clopidogrel 75 mg tablet (Plavix) 75 mg PO DAILY blood thinner #30 tabs 09/01/23 hydrocodone-acetaminophen 5-325mg 5mg-325mg 1 tab PO Q8H PRN pain 3 days #10 tabs 09/01/23
[2023-09-01] MEDS: Smz/Tmp Ds Tablet 1 TABLET PO (11:37)
[2023-09-01] MEDS: DOXEPIN HCL 50 MG CAPSULE PO (11:37)
--- NOTE | 2023-09-01 13:15 | CASEMGMT ---
Social Work Phone call placed to [facility] and spoke with Valerie who states she did not recieve information in [facility]. SW resent clinicals in [facility] and requested that Valerie open immediatly and review for acceptance. DEBBIE explained pt is ready for discharge and precert will be needed. Valerie states they will review and call this SW back. DEBBIE met with pt, pt and pt son and updated on the status of the referral. DEBBIE will continue to follow for discharge planning. SLOANE Morin
[2023-09-01 15:30] VITALS: BP 144/72; PULSE 83; RESP 18; TEMP 36.6; O2SAT 95
--- NOTE | 2023-09-01 16:29 | CASEMGMT ---
requested to speak to RN CM regarding pt status in the hospital. Answered all questions, she verbalized understanding and was appreciative of the information.
--- NOTE | 2023-09-01 17:46 | CASEMGMT ---
Social Work Multiple phone calls placed to [facility] throughout the day speaking with admission coordinator Valerie. Valerie stating that they have not decided if they can accept pt yet but have submitted for precert. Phone call to [facility] at 4:15 requesting update on acceptance. SW was informed admission coordinator and DON have left for the day and decision has not been made. At 4:41 phone call received from [facility], [facility] [employer] insurance stating insurance inteded to deny admission for skilled level of care at SNF. DEBBIE met with pt and informed of above. Presented options of home with home health care vs. private pay as nursing facility. states she is not able to care for pt at home and is agreeable to pay for fpc. SW informed that [facility] is not making decision and therefore she needs to make another choice. uncertain who to choose. SW reviewed list of ECF providers. to review tonight and will have decision in the morning. SW to follow up tomorrow. SLOANE Morin
[2023-09-01] MEDS: Tamsulosin HCl 0.4 MG Capsule PO (19:32)
[2023-09-01 20:39] VITALS: BP 149/84; PULSE 86; RESP 18; TEMP 36.6; O2SAT 93
[2023-09-01] MEDS: Carvedilol 3.125 MG TABLET PO (20:44)
[2023-09-01] MEDS: Atorvastatin Calcium 40 MG Tablet PO (20:44)
[2023-09-01] MEDS: Isosorbide Mononitrate 20 MG Tablet 10 MG PO (20:44)
[2023-09-01] MEDS: cycloBENZAPRine HCl 5 MG TABLET PO (20:44)
[2023-09-02 03:16] VITALS: BP 158/72; PULSE 69; RESP 18; TEMP 36.3; O2SAT 96
[2023-09-02] MEDS: Levothyroxine 50 MCG Tablet PO (05:57)
[2023-09-02] MEDS: Lithium Carbonate 150 MG Capsule PO ×3 (05:57→21:05)
[2023-09-02 08:52] VITALS: BP 139/59; PULSE 64; RESP 16; TEMP 36.4; O2SAT 95
--- NOTE | 2023-09-02 09:09 | PCM.PN.SRG ---
Subjective Subjective Patient had no issues overnight. Objective Data Objective Data Vital Signs: Vital Signs Temp Pulse Resp BP Pulse Ox O2 Del Method O2 Flow Rate 97.6 F L 64 16 139/59 H 95 Room Air 2 09/02/23 08:52 09/02/23 08:52 09/02/23 08:52 09/02/23 08:52 09/02/23 08:52 09/02/23 08:52 08/31/23 15:55 Oxygen Flow Rate (L/min) 2 Oxygen Delivery Method Room Air Weight: 170 lb Body Mass Index (BMI) 24.3 Intake & Output: Intake and Output for Last 24 Hours 08/31/23 09/01/23 09/02/23 23:59 23:59 23:59 Intake Total 1752 / 1752 Output Total 2060 / 2260 3050 / 3050 950 / 950 Balance -308 / -508 -3050 / -3050 -950 / -950 Lab / Micro Data 09/01/23 06:55 09/01/23 06:55 Physical Exam Const oriented x3 and no apparent distress GI soft to palpation and non-tender Assessment & Plan Assessment/Plan (1) Choledocholithiasis: PLAN: Patient had laparoscopic cholecystectomy with subsequent ERCP with biliary and pancreatic stent placement. The patient is awaiting placement. Diet as tolerated. Prosper Mackey MD Pager: [facility] [address] [place] [address] Office:
[2023-09-02] MEDS: Losartan Potassium 25 MG Tablet 12.5 MG PO (09:19)
[2023-09-02] MEDS: Smz/Tmp Ds Tablet 1 TABLET PO (09:19)
[2023-09-02] MEDS: Magnesium Chloride 64 MG Delay Rel.Tablet PO ×2 (09:20→21:04)
[2023-09-02] MEDS: DOXEPIN HCL 50 MG CAPSULE PO (09:20)
[2023-09-02] MEDS: Furosemide 40 MG Tablet PO (09:21)
[2023-09-02] MEDS: Polyethylene Glycol 3350 17 GM PACKET PO (09:21)
[2023-09-02] MEDS: Topiramate 50 MG Tablet PO ×2 (09:22→21:04)
[2023-09-02] MEDS: Gabapentin 300 MG Capsule PO (09:26)
[2023-09-02] MEDS: Enoxaparin 30 MG/0.3 ML Syringe SC (09:33)
--- NOTE | 2023-09-02 10:14 | CASEMGMT ---
Social Work SW spoke w/pt and this morning in regard to discharge plan. Pt's states she did review the SNF list, but is now thinking she would like to take pt home w/a chantelle lift. states normally pt can pull himself up, she uses a sit to stand at home, and pt has an electric wheelchair. states pt is doing so much better today. SW explained we should probably see how he does with PT/OT today before making the decision to go home, to see if pt can indeed pull himself up. SW asked in the interim if there was a SNF she would like SW to send a referral to for them. Pt and state they need to talk about where that would be. SW gave this SW's number to call once pt has seen therapy, and we will continue to plan from there. states understanding. SW will continue to follow. SEBASTIÁN Hazel
[2023-09-02 11:32] VITALS: BP 152/62; PULSE 73; RESP 16; TEMP 36.8; O2SAT 95
[2023-09-02 15:18] VITALS: BP 120/49; PULSE 72; RESP 16; TEMP 36.7; O2SAT 94
[2023-09-02] MEDS: Tamsulosin HCl 0.4 MG Capsule PO (17:20)
--- NOTE | 2023-09-02 17:24 | CASEMGMT ---
Social Work SW spoke w/ in room. She is stating again now that pt needs to go somewhere, she cannot manage him at home. She is aware of the private pay cost and would like a referral to TCU. SW explained will make the referral. DEBBIE left a voicemail and sent an email to Maria Isabel in TCU regarding referral. DEBBIE to follow up on Monday. SEBASTIÁN Hazel
[2023-09-02 21:01] VITALS: BP 152/73; PULSE 72; RESP 18; TEMP 37.1; O2SAT 93
[2023-09-02] MEDS: Isosorbide Mononitrate 20 MG Tablet 10 MG PO (21:04)
[2023-09-02] MEDS: Carvedilol 3.125 MG TABLET PO (21:05)
[2023-09-02] MEDS: Atorvastatin Calcium 40 MG Tablet PO (21:05)
[2023-09-02] MEDS: cycloBENZAPRine HCl 5 MG TABLET PO (21:05)
[2023-09-03 04:00] VITALS: BP 153/70; PULSE 65; RESP 18; TEMP 37; O2SAT 96
[2023-09-03] MEDS: Lithium Carbonate 150 MG Capsule PO ×3 (04:30→21:08)
[2023-09-03] MEDS: HYDROcodone Bitartrate/Apap 5/325 Tablet PO (04:30)
[2023-09-03] MEDS: Levothyroxine 50 MCG Tablet PO (04:30)
[2023-09-03] MEDS: Polyethylene Glycol 3350 17 GM PACKET PO (07:38)
[2023-09-03] MEDS: Magnesium Chloride 64 MG Delay Rel.Tablet PO ×2 (07:40→21:08)
[2023-09-03] MEDS: Losartan Potassium 25 MG Tablet 12.5 MG PO (07:40)
[2023-09-03] MEDS: Topiramate 50 MG Tablet PO ×2 (07:40→21:09)
[2023-09-03] MEDS: Smz/Tmp Ds Tablet 1 TABLET PO (07:41)
[2023-09-03] MEDS: Furosemide 40 MG Tablet PO (07:41)
[2023-09-03] MEDS: DOXEPIN HCL 50 MG CAPSULE PO (07:41)
[2023-09-03] MEDS: Enoxaparin 30 MG/0.3 ML Syringe SC (07:44)
[2023-09-03] MEDS: Gabapentin 300 MG Capsule PO (07:44)
--- NOTE | 2023-09-03 08:33 | PCM.PN.SRG ---
Subjective Subjective No acute issues overnight Objective Data Objective Data Vital Signs: Vital Signs Temp Pulse Resp BP Pulse Ox O2 Del Method O2 Flow Rate 98.6 F 65 18 153/70 H 96 Room Air 2 09/03/23 04:00 09/03/23 04:00 09/03/23 04:00 09/03/23 04:00 09/03/23 04:00 09/03/23 04:00 08/31/23 15:55 Oxygen Flow Rate (L/min) 2 Oxygen Delivery Method Room Air Weight: 170 lb Body Mass Index (BMI) 24.3 Intake & Output: Intake and Output for Last 24 Hours 09/01/23 09/02/23 09/03/23 23:59 23:59 23:59 Intake Total 500 / 500 Output Total 3050 / 3050 1100 / 1100 1000 / 1000 Balance -3050 / -3050 -600 / -600 -1000 / -1000 Lab / Micro Data 09/01/23 06:55 09/01/23 06:55 Physical Exam Const oriented x3 and no apparent distress Resp normal respiratory effort Cardio regular rate and regular rhythm GI normal to inspection, nondistended, normoactive bowel sounds Assessment & Plan Assessment/Plan (1) Choledocholithiasis: PLAN: Patient tolerated some diet but he does not have any stool. Patient is already being given MiraLAX daily. I will add some magnesium citrate. Awaiting placement tomorrow. Prosper Mackey MD Pager: [facility] [address] [place] [address], [address] [place] [address] Office:
[2023-09-03 09:36] VITALS: BP 146/58; PULSE 69; RESP 16; TEMP 36.6; O2SAT 95
[2023-09-03] MEDS: Magnesium Citrate 300 ML PO (09:40)
[2023-09-03] MEDS: Ondansetron 4 MG/2 ML Vial IV (09:43)
[2023-09-03] MEDS: 0.9% Saline Lock 10 ML Syringe IV (09:43)
[2023-09-03 11:17] VITALS: BP 123/36; PULSE 73; RESP 16; TEMP 36.8; O2SAT 96
[2023-09-03 15:28] VITALS: BP 138/60; PULSE 71; RESP 16; TEMP 36.7; O2SAT 95
[2023-09-03] MEDS: Tamsulosin HCl 0.4 MG Capsule PO (17:24)
[2023-09-03 21:02] VITALS: BP 145/59; PULSE 79; RESP 18; TEMP 37.6; O2SAT 95
[2023-09-03] MEDS: cycloBENZAPRine HCl 5 MG TABLET PO (21:08)
[2023-09-03] MEDS: Isosorbide Mononitrate 20 MG Tablet 10 MG PO (21:08)
[2023-09-03] MEDS: Carvedilol 3.125 MG TABLET PO (21:08)
[2023-09-03] MEDS: Atorvastatin Calcium 40 MG Tablet PO (21:08)
[2023-09-03] MEDS: Acetaminophen 325 MG Tablet 650 MG PO (21:11)
[2023-09-04 03:45] VITALS: BP 141/63; PULSE 74; RESP 18; TEMP 37; O2SAT 95
[2023-09-04] MEDS: Lithium Carbonate 150 MG Capsule PO ×3 (04:32→22:41)
[2023-09-04] MEDS: Levothyroxine 50 MCG Tablet PO (04:32)
--- NOTE | 2023-09-04 06:31 | PCM.PN.SRG ---
Subjective Subjective Patient stating just cannot get it together Objective Data Objective Data Vital Signs: Vital Signs Temp Pulse Resp BP Pulse Ox O2 Del Method O2 Flow Rate 98.6 F 74 18 141/63 H 95 Room Air 2 09/04/23 03:45 09/04/23 03:45 09/04/23 03:45 09/04/23 03:45 09/04/23 03:45 09/04/23 03:45 08/31/23 15:55 Oxygen Flow Rate (L/min) 2 Oxygen Delivery Method Room Air Weight: 170 lb Body Mass Index (BMI) 24.3 Intake & Output: Intake and Output for Last 24 Hours 09/02/23 09/03/23 09/04/23 23:59 23:59 23:59 Intake Total 500 / 500 700 / 700 Output Total 1100 / 1100 1550 / 1550 Balance -600 / -600 -850 / -850 Lab / Micro Data 09/01/23 06:55 09/01/23 06:55 Physical Exam Resp normal respiratory effort GI GI Narrative: Soft nontender colostomy functioning laparoscopic incisions dry Assessment & Plan Assessment/Plan (1) Choledocholithiasis: (2) Cholelithiasis with chronic cholecystitis: QUALIFIERS: Cholelithiasis location: gallbladder Biliary obstruction: without biliary obstruction Qualified Code(s): K80.10 - Calculus of gallbladder with chronic cholecystitis without obstruction PLAN: Plan This patient was supposed to been discharged Friday, September 01, 2023. Apparently unfortunately insurance and long-term placement has been delaying his transfer. The patient is not aware whether certification has been completed yet. He has reached maximum hospitalized care and I am again recommending discharge
[2023-09-04] MEDS: DOXEPIN HCL 50 MG CAPSULE PO (08:37)
[2023-09-04] MEDS: Losartan Potassium 25 MG Tablet 12.5 MG PO (08:37)
[2023-09-04] MEDS: Gabapentin 300 MG Capsule PO (08:37)
[2023-09-04] MEDS: Enoxaparin 30 MG/0.3 ML Syringe SC (08:38)
[2023-09-04] MEDS: Smz/Tmp Ds Tablet 1 TABLET PO (08:38)
[2023-09-04] MEDS: Magnesium Chloride 64 MG Delay Rel.Tablet PO ×2 (08:38→22:41)
[2023-09-04] MEDS: Furosemide 40 MG Tablet PO (08:38)
[2023-09-04] MEDS: Topiramate 50 MG Tablet PO ×2 (08:38→22:40)
[2023-09-04] MEDS: Polyethylene Glycol 3350 17 GM PACKET PO (08:38)
[2023-09-04 08:40] VITALS: BP 130/55; PULSE 69; RESP 18; TEMP 37.1; O2SAT 99
[2023-09-04 09:08] LABS: Bedside Glucose 121 mg/dL (74-106)
--- NOTE | 2023-09-04 12:48 | PCM.TXEXTCAR ---
Diet Diet Order/Speech Therapy: 09/02/23 09:09 Diet: Regular - General Is pt able to select menu?: Yes Diet Comments: No carbonation Wound(s) ABDOMEN: Wound Type: Surgical Incision Buttocks: Wound Type: Pressure Injury Dressing Change: Mepilex RLE: Wound Type: cluster of abrasions Dressing Change: Adaptic right ischium: Wound Type: Pressure Injury Dressing Change: Mepilex Therapies Physical Therapy: Eval and Treat Occupational Therapy: Eval and Treat Problem/Diagnosis (1) Choledocholithiasis: Status: Acute Code(s): K80.50 - Calculus of bile duct without cholangitis or cholecystitis without obstruction (2) Cholelithiasis with chronic cholecystitis: Status: Chronic Code(s): K80.10 - Calculus of gallbladder with chronic cholecystitis without obstruction Allergies/Procedures Done in Hospital Allergies Cephalosporins Allergy (Intermediate, Verified 08/30/23 09:34) Laryngospasms Penicillins Allergy (Intermediate, Verified 08/30/23 09:34) Rash Iodinated Contrast Media [CONTRASTS] Allergy (Verified 08/30/23 09:34) Rash heparin Adverse Reaction (Intermediate, Verified 08/30/23 09:34) bruises easily Procedures: - (Laparoscopic cholecystectomy, ERCP) Type of Care/Length of Stay Estimated LOS: Convalescent Care Less Than 30 days Type of Care Needed: Acute Rehab Rehab Potential: Fair Prognosis: Fair Additional Orders/Day of Discharge Day of Discharge: 09/04/23 Follow Up Care Please Follow Up With: Jose Lagos MD When: Follow-up in 10 days. Contact our office at [phone] to schedule. Please Follow Up With: Prosper Mackey MD When: Follow-up in 4-6 weeks for stent removal Discharge Plan Admission Admit Date/Time: 08/30/23 13:27 Primary Reason for Your Visit: Chronic cholecystitis cholelithiasis, choledocholithiasis, abnormal liver f Attending Provider: Jose Lagos Primary Care Provider: Eris Melendez Instructions Additional Instructions / Restrictions: Use may use Tylenol 650 mg every 6 hours as needed for pain. Cholecystectomy Diet ? Start light with soups and soft bland foods. You may advance diet as tolerated. Activity ? Do not swim or use hot tubs for 2 weeks. ? For comfort, you may use warm compresses or ice as needed for 15-20 minutes at a time. Lifting ? You may lift up to 10 pounds for the first 2 weeks. You may advance to 20 pounds for the next 3 weeks. Dressings/Incision ? You may shower OVER your plastic dressings ? Do NOT tub bathe for 1 week ? Leave plastic dressings on for 3 days. ? When plastic dressings are removed, you will find steri strips. It is okay to continue showering with them in place, pat them dry. ? You may remove steri-strips after 1 week. We recommend getting them soaking wet for easier removal. Medications ? Anesthesia used during surgery and pain medications may cause constipation. I recommend initiating on the day of surgery a fiber supplement like, Metamucil, Citrucel, FiberCon, Benefiber, or a generic form of these medications. 1 heaping tablespoon in water daily. You may continue to utilize any bowel regimen or oral laxatives that you routinely take. ? As long as you are not intolerant to Tylenol, acetaminophen, ibuprofen, Motrin, Advil, Aleve, or similar medications, I would recommend transitioning to these raje-srl-saujddw medicines as soon as possible instead of continued use of narcotic pain medication. Follow up ? You should call [facility] soon after surgery, at [phone] option 1 to make a follow up appointment for 7-10 days after your surgery. Discharge Orders/Prescriptions Prescriptions: Continued carvedilol 3.125 mg tablet 3.125 mg PO QHS Rx Instructions: must administer with a meal/food cyclobenzaprine 5 mg tablet 5 mg PO QHS methadone 5 mg tablet See Rx Instructions .ROUTE .COMPLEX Rx Instructions: 6.5 5mg tablets in 3 doses 2 tabs in the am ~ 0800 1.5 tabs at supper ~ 1800 3 tabs at bedtime ~ 2200 losartan 25 mg tablet 12.5 mg PO DAILY isosorbide mononitrate 10 mg tablet 10 mg tablet 10 mg PO QHS Rx Instructions: give doses 7 hrs apart sulfamethoxazole-trimethoprim [Bactrim DS] 800-160 mg tablet 1 tab PO DAILY magnesium oxide 500 mg capsule 250 mg PO BID levothyroxine 50 mcg tablet 50 mcg PO DAILY Patient Comments: TAKE 1 TABLET BY MOUTH ONCE DAILY Azo Cranberry 250 mg tablet,chewable 500 mg PO DAILY gabapentin 300 mg capsule 300 mg PO DAILY Patient Comments: nerve pain, seizures takes at 0800,1700,2200 Rx Instructions: Don't use while taking linezolid ascorbic acid (vitamin C) 1,000 mg tablet 500 mg PO BID furosemide 40 MG tablet 40 mg PO DAILY atorvastatin [Lipitor] 40 MG tablet 40 mg PO QHS pyridoxine (vitamin B6) 100 MG tablet 100 mg PO DAILY Patient Comments: supplement to improve metabolism takes at 1700 multivitamin,hu-ytgq-iwfygqds 1 TABLET tablet 1 tab PO DAILY Patient Comments: supplement takes at 1700 tamsulosin 0.4 MG capsule 0.4 mg PO 1700 doxepin 50 mg capsule 50 mg PO DAILY lithium carbonate 150 mg capsule 150 mg PO TID topiramate 100 mg tablet 50 mg PO BID clopidogrel [Plavix] 75 mg tablet 75 mg PO DAILY Qty: 30 0RF Rx Instructions: May resume clopidogrel 75 mg orally daily on September 03, 2023 per his home prescription. New prescription not required. Other Ambulatory Orders: 12 Lead EKG (Routine) Timeframe: [id number] Location: None Selected Ordered By: Dr. Jose Lagos Referrals / Follow Up: Eris Melendez MD [Primary Care Provider] - Disposition Disposition (needs filled in before D/C Order can be placed): Senior Living Facility (2) Cholelithiasis with chronic cholecystitis Qualifiers: Cholelithiasis location: gallbladder Biliary obstruction: without biliary obstruction Qualified Code(s): K80.10 - Calculus of gallbladder with chronic cholecystitis without obstruction
--- NOTE | 2023-09-04 13:48 | PHA.DC.MR.R ---
Pharmacy [place] Med Reconciliation Pharmacy Service has performed discharge medication reconciliation for this patient. The patient's discharge medication list was reviewed for discrepancies and discrepancies were resolved. Medications at Discharge Home Medications furosemide 40 mg tablet 40 mg PO DAILY diuretic 08/11/18 atorvastatin 40 mg tablet (Lipitor) 40 mg PO QHS CHOLESTEROL 11/06/18 multivitamin,lm-hkug-npqpthtr 27 mg-0.4 mg tablet 1 tab PO DAILY SUPPLEMENT 11/06/18 pyridoxine (vitamin B6) 100 mg tablet 100 mg PO DAILY SUPPLEMENT 11/06/18 tamsulosin 0.4 mg capsule 0.4 mg PO 1700 BPH 11/06/18 carvedilol 3.125 mg tablet 3.125 mg PO QHS heart 02/06/20 cyclobenzaprine 5 mg tablet 5 mg PO QHS pain 02/06/20 isosorbide mononitrate 10 mg tablet 10 mg PO QHS to dilate blood vessels in legs 02/06/20 losartan 25 mg tablet 12.5 mg PO DAILY stop if low bp per Eris Melendez MD 02/06/20 methadone 5 mg tablet See Rx Instructions .Route .COMPLEX Check with primary doctor 02/06/20 sulfamethoxazole 800 mg-trimethoprim 160 mg tablet (Bactrim DS) 1 tab PO DAILY to prevent Nocardia UTI 02/06/20 ascorbic acid (vitamin C) 1,000 mg tablet 500 mg PO BID supplement 10/12/20 cranberry fruit concentrate 250 mg chewable tablet (Azo Cranberry) 500 mg PO DAILY bladder 10/12/20 levothyroxine 50 mcg tablet 50 mcg PO DAILY thyroid 10/12/20 gabapentin 300 mg capsule 300 mg PO DAILY nerve pain 06/23/23 magnesium oxide 500 mg capsule 250 mg PO BID supplement 06/23/23 doxepin 50 mg capsule 50 mg PO DAILY 08/17/23 lithium carbonate 150 mg capsule 150 mg PO TID 08/17/23 topiramate 100 mg tablet 50 mg PO BID 08/17/23 clopidogrel 75 mg tablet (Plavix) 75 mg PO DAILY blood thinner #30 tabs 09/01/23
--- NOTE | 2023-09-04 13:52 | CASEMGMT ---
Social Work - Discharge Planning Met with patient, Mary, and son Drake in room today. Introduced to self and provided update that still waiting on insurance response for skilled care. Received message from Erna at [facility] that insurance medical officer psychiatry is requesting a peer to peer before making a decision on SNF request. Updated Katt Montes PA-C for Dr. Lagos. Katt is willing to do peer to peer. Provided number of , option #5 by 1500 today. Received call back from Katt who reports peer to peer is completed and medical officer psychiatry is approving skilled stay, and will work on approval paperwork to send to the SNF. Called [facility], as this is the facility which submitted for the precert Informed that [facility], admissions and social scientist is out today due to federal holiday. No director and it network administrator in the building today and no way to call anyone, per Kylah at [facility]. Sent to Vlaerie's voicemail. Message left for Valerie to look for insurance precert and to call this news writer back as soon as possible. Message also left in [facility] in case someone else at the [facility] is checking referrals and messages. Updated Mary, [facility]. Patient sleeping during conversation. Noted PASRR has been completed. Attempted to call [facility] to discuss PASRR process for this patient, and ensure patient can transfer to SNF with current PASRR completed. Direction [place] is closed today in observance of federal holiday. PLAN: Short term skilled stay has been approved per peer to peer done today, though waiting on [facility] to confirm their receipt of precert approval. Need to follow up with [facility] regarding PASRR process. -TRU Orr
[2023-09-04 15:00] VITALS: BP 134/48; PULSE 63; RESP 18; TEMP 36.6; O2SAT 92
--- NOTE | 2023-09-04 15:56 | PCM.PN.BLA ---
Progress Note I had an opportunity discussed with case management today the patient's ongoing hospitalization. I had written a discharge order on September 01, 2023. Apparently the patient's insurance to allow her him to go to an extended care facility did not make a decision over the weekend and then required a peer to peer review which was achieved by Katt Montes PA-C today. The extended care facility still has not notified the hospital of receiving confirmation and has not confirmed today. This has caused a prolonged unnecessary hospital stay involving September 01 and September 02 and September 03 and September 04. Apparently some of the difficulties include that today is considered a holiday being . Unfortunately I have had no means of mitigating or impacting this deleterious prolonged stay Jose Lagos M.D., F.A.C.S.
[2023-09-04] MEDS: Tamsulosin HCl 0.4 MG Capsule PO (17:21)
[2023-09-04 22:00] VITALS: BP 144/60; PULSE 83; RESP 18; TEMP 37.2; O2SAT 96
[2023-09-04] MEDS: Carvedilol 3.125 MG TABLET PO (22:41)
[2023-09-04] MEDS: cycloBENZAPRine HCl 5 MG TABLET PO (22:41)
[2023-09-04] MEDS: Isosorbide Mononitrate 20 MG Tablet 10 MG PO (22:41)
[2023-09-04] MEDS: Atorvastatin Calcium 40 MG Tablet PO (22:42)
[2023-09-05 05:00] VITALS: BP 154/67; PULSE 71; RESP 18; TEMP 36.8; O2SAT 97
[2023-09-05] MEDS: Levothyroxine 50 MCG Tablet PO (05:11)
[2023-09-05] MEDS: Lithium Carbonate 150 MG Capsule PO (05:11)
[2023-09-05] MEDS: HYDROcodone Bitartrate/Apap 5/325 Tablet PO (05:27)
[2023-09-05] MEDS: 0.9% Saline Lock 10 ML Syringe IV (07:45)
[2023-09-05] MEDS: Ondansetron 4 MG/2 ML Vial IV (07:45)
[2023-09-05 08:00] VITALS: BP 141/61; PULSE 68; RESP 18; TEMP 36.8; O2SAT 99
[2023-09-05 08:46] VITALS: O2SAT 94
--- NOTE | 2023-09-05 09:22 | CASEMGMT ---
Addendum entered by Janet Zhang 09/05/23 10:35: Social Work SW spoke with Valerie from the [facility] and they are able to accept pt today. [facility] will complete the Resident Review once patient admits. DEBBIE updated [facility] and pt is ready for discharge. DEBBIE spoke with pt and his Lucille who are agreeable to discharge today with transportation at 10:50. Lucille will be in later to bead picker pt's electric wheelchair. Lucille notified that insurance approved 2 days and [facility] will update insurance again at that time for continued stay review. [place] office clerk assistant to complete discharge. Disposition: [facility], skilled level of care SLOANE Morin Original Note: Social Work SW spoke with Rosetta at [facility] who states pt can admit to a facility under the current PASRR. The accepting facility will need to complete a Resident Review. VM left with Valerie, admission director at [facility] requesting return call to confirm they received update from insurance company and can accept pt today. Will await return call from [facility]. SLOANE Morin
[2023-09-05] MEDS: Smz/Tmp Ds Tablet 1 TABLET PO (10:24)
[2023-09-05] MEDS: Magnesium Chloride 64 MG Delay Rel.Tablet PO (10:24)
[2023-09-05] MEDS: Enoxaparin 30 MG/0.3 ML Syringe SC (10:24)
[2023-09-05] MEDS: Gabapentin 300 MG Capsule PO (10:24)
[2023-09-05] MEDS: Furosemide 40 MG Tablet PO (10:24)
[2023-09-05] MEDS: Losartan Potassium 25 MG Tablet 12.5 MG PO (10:24)
[2023-09-05] MEDS: DOXEPIN HCL 50 MG CAPSULE PO (10:24)
[2023-09-05] MEDS: Topiramate 50 MG Tablet PO (10:25)
[2023-09-05] MEDS: Polyethylene Glycol 3350 17 GM PACKET PO (10:25)
--- NOTE | 2023-09-05 10:28 | PCM.PN.SRG ---
Subjective Subjective Patient is an 87 y/o M I am following s/p laparoscopic cholecystectomy and ERCP on 08/31/23 due to choledocholithiasis. Patient denies abdominal pain/discomfort. He is tolerating a regular diet well. He states he can not get it together. He feels he has been in the same room too long and feels depressed since surgery. Patient's ostomy is functioning well Objective Data Objective Data Vital Signs: Vital Signs Temp Pulse Resp BP Pulse Ox O2 Del Method O2 Flow Rate 98.3 F 68 18 141/61 H 94 Room Air 2 09/05/23 08:00 09/05/23 08:00 09/05/23 08:00 09/05/23 08:00 09/05/23 08:46 09/05/23 08:00 08/31/23 15:55 Oxygen Flow Rate (L/min) 2 Oxygen Delivery Method Room Air Weight: 170 lb Body Mass Index (BMI) 24.3 Intake & Output: Intake and Output for Last 24 Hours 09/03/23 09/04/23 09/05/23 23:59 23:59 23:59 Intake Total 700 / 700 Output Total 1550 / 1550 1550 / 1550 650 / 650 Balance -850 / -850 -1550 / -1550 -650 / -650 Lab / Micro Data 09/01/23 06:55 09/01/23 06:55 Physical Exam GI GI Narrative: Abdomen- soft, nontender. Incisions intact, clean and dry. Op-sites in placed. Adhesive burn noted at the umbilicus. Scabs are intact at the adhesive bun and area is open to air. Assessment & Plan Assessment/Plan (1) Choledocholithiasis: PLAN: Patient ready for discharge today as [facility] has approved and accepted patient. Charges/Coding Visit Charges Inpatient E&M: 42982 Subs Hosp L1 (No charge; post-op)
--- NOTE | 2023-09-05 10:38 | CASEMGMT ---
Discharge Planning Discharge orders, signed med list, and transport time sent to [facility] via [facility]. [facility] will transport patient by cot at 10:50a. Nursing and SW updated. Erna Hughes, Discharge Planning Asst.
== END 2023-09-05 11:05 ==
LOC: SDC 17:28 → MS3 17:28
PROVIDERS: Anesthesiology; Family Medicine; Surgery; Admitting Provider Surgery; PCP Family Medicine; Referring Provider Surgery; Visit Provider Surgery
PROC: (CPT 47610; principal; 2023-08-30 10:35)
DX: K80.64 Calculus of gallbladder and bile duct with chronic cholecystitis without obstruction (principal); G82.20 Paraplegia, unspecified; L89.312 Pressure ulcer of right buttock, stage 2; Z93.3 Colostomy status; K74.60 Unspecified cirrhosis of liver; I73.9 Peripheral vascular disease, unspecified; I10 Essential (primary) hypertension; G89.29 Other chronic pain; R07.2 Precordial pain; E78.5 Hyperlipidemia, unspecified; I25.10 Atherosclerotic heart disease of native coronary artery without angina pectoris; Z98.2 Presence of cerebrospinal fluid drainage device; Z79.899 Other long term (current) drug therapy; Z79.891 Long term (current) use of opiate analgesic; Z79.02 Long term (current) use of antithrombotics/antiplatelets; E03.9 Hypothyroidism, unspecified; Z79.890 Hormone replacement therapy; I25.2 Old myocardial infarction
CPT/HCPCS: 47563; 43264; 47379; 43274; 00732; 00790; 36415; 74300; 74330; 76000; 80053; 80074; 82150; 82962; 83690; 84443; 84484; 85025; 85027; 85610; 85730; 88304; 88307; 88313; 93005; 94668; 96365; 96366; 96372; 96375; 96376; 97110; 97162; 97166; 97530; 97535; 99221; J7120; A4216; C1769; G0378; J2405; J3490

== ENCOUNTER → 2023-09-11 | Outpatient (REF) | payer MEDICARE, SELFPAY ==
[2023-09-11 08:30] LABS: Hematocrit 36.1 % (40-54); Hemoglobin 11.7 g/dL (13.0-16.5); Mean Corp Hgb Conc 32.4 g/dL (32-36); Mean Corpuscular Hgb 33.6 pg (27.0-32.0); Mean Corpuscular Volume 103.7 fL (80-94); Mean Platelet Vol. 9.5 fl (6.2-12.0); Platelet Count 255 K/mm3 (150-450); RBC Distribution Width CV 12.1 % (11.6-14.6); RBC Distribution Width SD 46.3 fl (35.1-43.9); Red Blood Count 3.48 M/mm3 (4.6-6.2); White Blood Count 9.2 K/mm3 (4.4-11.0)
[2023-09-11 08:58] LABS: ALB/GLOB Ratio 0.5 RATIO (0.9-2.4); AST(SGOT) 43 U/L (15-37); Alanine Aminotransfer ALT/SGPT 70 U/L (16-61); Albumin, Serum 1.9 g/dL (3.2-5.0); Alkaline Phosphatase 124 U/L (45-117); Anion Gap 7 (5-15); BUN 25 mg/dL (7-18); BUN/Creat Ratio 38.1 RATIO (10-20); Calcium,Total 8.5 mg/dL (8.5-10.1); Chloride 109 mmol/L (98-107); Cholesterol 55 mg/dL (200); Creatinine, Serum 0.66 mg/dL (0.70-1.30); EST Glomerular Filtration Rate 123 mL/min (>60); Est Glom Filt Rate - Afr Amer 148 mL/min (>60); Globulin 4.2 g/dL (2.2-4.2); Glucose 108 mg/dL (74-106); High Density Lipoprotein 26 mg/dL; Magnesium 2.5 mg/dL (1.6-2.6); Potassium 3.1 mmol/L (3.5-5.1); Protein, Total 6.1 g/dL (6.4-8.2); Sodium Level 139 mmol/L (136-145); Triglycerides 70 mg/dL; Very Low Density Lipoprotein 14 mg/dL (5-40)
== END ==
LOC: OLS.WCC 05:00
PROVIDERS: PCP Family Medicine; Visit Provider Family Medicine
DX: N40.0 Benign prostatic hyperplasia without lower urinary tract symptoms (principal); I10 Essential (primary) hypertension; Z79.899 Other long term (current) drug therapy
CPT/HCPCS: 36415; 80053; 80061; 80178; 83735; 85027

== ENCOUNTER → 2023-09-29 | Outpatient (REF) | payer MEDICARE, SELFPAY ==
[2023-09-29 09:37] LABS: Mucous, Urine 0 SEEN /hpf (<or=2+); Squamous Epithelial Cells - UA 0 SEEN /hpf (0-5)
[2023-09-29 09:40] LABS: Color, Urine Yellow (Yellow); Glucose, Dipstick Normal (Normal); Ketone-Dipstick Negative (Negative); Leukocyte Esterase-Dipstick 500 /ul (Negative); Nitrite-Dipstick Positive (Negative); Occult Blood-Urine 150 /ul (Negative); Protein-Dipstick 30 mg/dl (Negative); Urine Bilirubin Dipstick Negative (Negative); Urine Clarity Sl. Cloudy (Clear); Urine Urobilinogen Normal (Normal)
[2023-09-29 09:47] LABS: White Blood Cells >100 SEEN /hpf (0-5)
[2023-09-29 09:48] LABS: Bacteria 1+ /hpf (None Seen); Red Blood Cells-Urine 5-10 SEEN /hpf (0-5)
--- OUTSIDE RECORDS SUMMARY | 2023-09-29 09:53 | XMS RPT_ITS | CCD ---
Author Name Unknown Address [address] [place] [address] Organization [facility] Care Team Providers Care Senior Health Physics Technician Name Role Phone ANGELIA TINAJERO Unavailable Unavailable JOSETTE MELENDEZ Unavailable Unavailable Josette Melendez MD Primary Care Provider [phone] Josette Melendez MD Primary Care Provider [phone] JOSETTE MELENDEZ Primary Care Unavailable NIMA TILLMAN Referring Unavailable JOSE, JOSETTE A Primary Care Unavailable NIMA TILLMAN Referring Unavailable NIMA TILLMAN Referring Unavailabl e MELENDEZ, JOSETTE A Primary Care Unavailable LAYNE, NIMA Bhatti Attending Unavailabl e MELENDEZ, JOSETTE A Primary Care Unavailable KATRINCHAK, NIMA Bhatti Attending Unavailabl e MELENDEZ, JOSETTE A Primary Care Unavailable JEANETTERINSANJANA, NIMA Bhatti Attending Unavailabl e MELENDEZ, JOSETTE A Primary Care Unavailable KATRINSANJANA, NIMA Bhatti Attending Unavailabl e MELENDEZ, JOSETTE A Primary Care Unavailable KATRINCHAK, NIMA Bhatti Attending Unavailabl e MELENDEZ, JOSETTE A Primary Care Unavailable LAYNE, NIMA Bhatti Attending Unavailabl e MELENDEZ, JOSETTE A Primary Care Unavailable KATRINSANJANA, NIMA Bhatti Attending Unavailabl e MELENDEZ, JOSETTE A Primary Care Unavailable Allergies Allergy Classification Reported Allergen(s) Allergy Type Date of Onset Reaction(s) Facility (11 sources) Cephalexin; Translations: [CEPHALEXIN] Drug Allergy 3 Shortness of Breath [facility] (11 sources) Cephalosporins (Antibiotic); Translations: [CEPHALOSPORINS] Drug Allergy 9 Shortness of Breath [facility] (11 sources) Contrast media; Translations: [CONTRAST DYE] Drug Allergy 4 Hives [facility] Work Phone: (11 sources) heparin; Translations: [HEPARIN] Drug Allergy 3 Other: See Comments [facility] (11 sources) Penicillins; Translations: [PENICILLINS] Drug Allergy 9 Rash, Itching [facility] Medications Completed/Discontinued Medications Medication Drug Class(es) Dates Sig (Normalized) Sig (Original) Acetaminophen / diphenhydrAMINE (9 sources) Histamine-1 Receptor Antagonist take 1 tablet by mouth once daily at bedtime acetaminophen/diph enhydramine (TYLENOL PM ORAL) Take 1 tablet by mouth daily at bedtime. 0 Active Problems Active Problems Problem Classification Problem Date Documented Da te Episodic/Chronic Acute cerebrovascular disease (9 sources) Hemorrhage into subarachnoid space of neuraxis; Translations: [Nontraumatic subarachnoid hemorrhage, unspecified] Onset: 11-07-2009 11-07-2009 Chronic Chronic ulcer of skin (20 sources) Pressure ulcer of buttock stage 3; Translations: [Pressure ulcer of right buttock, stage 3] Onset: 05-31-2023 Chronic Other injuries and conditions due to external causes (1 source) Local infection of wound; Translations: [Other injury of unspecified body region, initial encounter] 06-19-2023 Episodic Other injuries and conditions due to external causes (2 sources) Other injury of unspecified body region, initial encounter; Translations: [Wound infection] Onset: 06-19-2023 Episodic Other nervous system disorders (9 sources) Spinal cord disease; Translations: [Disease of spinal cord, unspecified] Onset: 11-07-2009 11-07-2009 Chronic Other nervous system disorders (9 sources) Syringomyelia; Translations: [Syringomyelia and syringobulbia] Onset: 11-07-2009 11-07-2009 Chronic Peripheral and visceral atherosclerosis (9 sources) Peripheral vascular disease, unspecified; Translations: [Peripheral vascular disease, unspecified] Onset: 01-20-2014 01-20-2014 Chronic Skin and subcutaneous tissue infections (2 sources) Local infection of the skin and subcutaneous tissue, unspecified; Translations: [Wound infection] Onset: 06-19-2023 Episodic Unclassified (2 sources) Pressure-induced deep tissue damage of sacral region; Translations: [Pressure injury of deep tissue of sacral region] Onset: 06-19-2023 Unclassified (1 source) Wound Check Onset: 08-16-2023 Past or Other Problems Problem Classification Problem Date Documented Da te Episodic/Chronic E Codes: Adverse effects of medical drugs (9 sources) Allergic reaction to substance; Translations: [Adverse effect of diagnostic agents, initial encounter] Onset: 02-10-2014 02-10-2014 Episodic Meningitis (except that caused by tuberculosis or sexually transmitted disease) (9 sources) Arachnoiditis; Translations: [Meningitis, unspecified] Onset: 11-07-2009 11-07-2009 Episodic Open wounds of extremities (9 sources) Open wound of toe; Translations: [Unspecified open wound of unspecified toe(s) without damage to nail, initial encounter] Onset: 01-20-2014 01-20-2014 Episodic Other connective tissue disease (9 sources) Paraplegic immobility syndrome; Translations: [Immobility syndrome (paraplegic)] Onset: 01-20-2014 01-20-2014 Episodic Results Test Name Value Interpretation Reference Range Facil ity Vital Signs Date Time Vital Sign Value Performing Clinician Faci fidel 08-16-2023 14:50-0400 Diastolic blood pressure 70 mm[Hg] Nima Tillman APRN.CNP Work Phone: [facility] 08-16-2023 14:50-0400 Systolic blood pressure 169 mm[Hg] Nima Tillman APRN.CNP Work Phone: [facility] 08-16-2023 14:06-0400 Body temperature 98.01 [degF] Nima Tillman APRN.CNP Work Phone: [facility] 08-16-2023 14:06-0400 Heart rate 77 /min Nima Tillman APRN.CNP Work Phone: [facility] 08-16-2023 14:06-0400 SaO2% (BldA) [Mass fraction] 98 % Nima Tillman APRN.CNP Work Phone: [facility] 08-02-2023 13:13-0400 Body temperature 97.7 [degF] Nima Tillman APRN.CNP Work Phone: [facility] 08-02-2023 13:13-0400 Diastolic blood pressure 70 mm[Hg] Nima Katrinchak SECURITY PATROL DRIVER.DARK ROOM ATTENDANT Work Phone: [facility] 08-02-2023 13:13-0400 Heart rate 65 /min Nima Katmercedesk SECURITY PATROL DRIVER.DARK ROOM ATTENDANT Work Phone: [facility] 08-02-2023 13:13-0400 SaO2% (BldA) [Mass fraction] 97 % Nima Katrinchak SECURITY PATROL DRIVER.DARK ROOM ATTENDANT Work Phone: [facility] 08-02-2023 13:13-0400 Systolic blood pressure 126 mm[Hg] Nima Katrinchak SECURITY PATROL DRIVER.DARK ROOM ATTENDANT Work Phone: [facility] 07-03-2023 12:09-0400 Diastolic blood pressure 70 mm[Hg] Nima Katrinchak SECURITY PATROL DRIVER.DARK ROOM ATTENDANT Work Phone: [facility] 07-03-2023 12:09-0400 Systolic blood pressure 153 mm[Hg] Nima Katrinchak SECURITY PATROL DRIVER.DARK ROOM ATTENDANT Work Phone: [facility] 07-03-2023 11:32-0400 Body temperature 97.59 [degF] Nima Katrinchak SECURITY PATROL DRIVER.DARK ROOM ATTENDANT Work Phone: [facility] 07-03-2023 11:32-0400 Heart rate 63 /min Nima Maloneyk SECURITY PATROL DRIVER.DARK ROOM ATTENDANT Work Phone: [facility] 07-03-2023 11:32-0400 SaO2% (BldA) [Mass fraction] 97 % Nima Katrinchak SECURITY PATROL DRIVER.DARK ROOM ATTENDANT Work Phone: [facility] 06-26-2023 11:35-0400 Diastolic blood pressure 69 mm[Hg] Nima Katrinchak SECURITY PATROL DRIVER.DARK ROOM ATTENDANT Work Phone: [facility] 06-26-2023 11:35-0400 Systolic blood pressure 146 mm[Hg] Nima Katrinchak SECURITY PATROL DRIVER.DARK ROOM ATTENDANT Work Phone: [facility] 06-26-2023 11:34-0400 Body temperature 98.1 [degF] Nima Tillman SECURITY PATROL DRIVER.DARK ROOM ATTENDANT Work Phone: [facility] 06-26-2023 11:34-0400 Heart rate 67 /min Nima Tillman SECURITY PATROL DRIVER.DARK ROOM ATTENDANT Work Phone: [facility] 06-26-2023 11:34-0400 SaO2% (BldA) [Mass fraction] 96 % Nima Tillman SECURITY PATROL DRIVER.DARK ROOM ATTENDANT Work Phone: [facility] 06-19-2023 15:05-0400 Diastolic blood pressure 54 mm[Hg] Nima Tillman SECURITY PATROL DRIVER.DARK ROOM ATTENDANT Work Phone: [facility] 06-19-2023 15:05-0400 Systolic blood pressure 120 mm[Hg] Nima Tillman SECURITY PATROL DRIVER.DARK ROOM ATTENDANT Work Phone: [facility] 05-31-2023 14:22-0400 Diastolic blood pressure 74 mm[Hg] Nima Tillman SECURITY PATROL DRIVER.DARK ROOM ATTENDANT Work Phone: [facility] 05-31-2023 14:22-0400 Systolic blood pressure 160 mm[Hg] Nima Tillman SECURITY PATROL DRIVER.DARK ROOM ATTENDANT Work Phone: [facility] 05-31-2023 13:25-0400 Body temperature 97.3 [degF] Nima Tillman SECURITY PATROL DRIVER.DARK ROOM ATTENDANT Work Phone: [facility] 05-31-2023 13:25-0400 Heart rate 58 /min Nima Tillman SECURITY PATROL DRIVER.DARK ROOM ATTENDANT Work Phone: [facility] 05-31-2023 13:25-0400 SaO2% (BldA) [Mass fraction] 97 % Nima Tillman SECURITY PATROL DRIVER.DARK ROOM ATTENDANT Work Phone: [facility] Encounters Encounter Date Encounter Type Care Provider Facility Start: 08-16-2023 End: 08-16-2023 ambulatory NIMA TILLMAN Facility:[facility] Start: 08-16-2023 End: 08-16-2023 Patient encounter procedure Nima Tillman SECURITY PATROL DRIVER.JAMAL Work Phone: Plastic Surgery Procedures Date Procedure Procedure Detail Performing Clinician Start: 06-19-2023 Cul bact xcpt urine blood/stool aerobic isol Nima M Layne DOBSON.DARK ROOM ATTENDANT Work Phone: Start: 05-31-2023 Cul bact xcpt urine blood/stool aerobic isol Nima Magy Layne SECURITY PATROL DRIVER.DARK ROOM ATTENDANT Work Phone: Plan of Treatment Date Care Activity Detail Author Start: 06-19-2026 DIABETES SCREEN DIABETES SCREEN [facility] Start: 06-19-2026 Diabetes Screening Diabetes Screening [facility] Start: 07-28-2023 Influenza vaccination [facility] Start: 11-27-2022 ADVANCE DIRECTIVE DISCUSSION ADVANCE DIRECTIVE DISCUSSION [facility] Start: 11-27-2022 DEPRESSION ASSESSMENT DEPRESSION ASSESSMENT [facility] Start: 12-03-2021 COVID-19 VACCINE (4 - Booster for Moderna series) COVID-19 VACCINE (4 - Booster for Moderna series) [facility] Start: 12-03-2021 COVID-19 VACCINE (4 - Moderna series) COVID-19 VACCINE (4 - Moderna series) [facility] Start: 11-02-2012 DIABETES SCREEN DIABETES SCREEN [facility] Start: 2002 Pneumococcal Vaccine: 65+ (1 - PCV) Pneumococcal Vaccine: 65+ (1 - PCV) [facility] Start: 2002 PNEUMOCOCCAL: 65+ (1 - PCV) PNEUMOCOCCAL: 65+ (1 - PCV) [facility] Start: 1987 SHINGRIX VACCINE (1 of 2) SHINGRIX VACCINE (1 of 2) [facility] Start: 1956 Urine microalbumin profile [facility] Bacteria identified in Wound by Culture ABSCESS AND WOUND CULTURE WITH GRAM STAIN Microbiology Routine Pressure injury of right ischium, stage 3 (HCC) 05/31/2023 2:35 PM EDT [facility] Work Phone: Bacteria identified in Wound by Culture ABSCESS AND WOUND CULTURE WITH GRAM STAIN Microbiology Routine Wound infection 06/19/2023 2:41 PM EDT [facility] Work Phone: End: 07-18-2024 Ct pelvis w/o contrast material CT PELVIS WO [facility] Radiology [facility] Wound infection Pressure injury of deep tissue of sacral region 1 Occurrences starting 06/19/2023 until 07/18/2024 [facility] Work Phone: Immunizations Immunization Date Immunization Notes Care Provider Yenifer josé manuelfer 12-01-2021 influenza virus vaccine, unspecified formulation Nima Tillman APRN.DARK ROOM ATTENDANT Work Phone: [facility] Payers Date Payer Category Payer Medicare [employer] MEDICARE HU[employer] MEDICARE PPO [id number] 2020-Present [phone] [address] [address] [place] [address] PPO [id number] 2018 Private Health Insurance [id number] 2018 Medicare [id number] 1935 Unknown [id number] Social History Date Type Detail Facility Start: 06-19-2023 Tobacco smoking stat RUSTIS Ex-smoker [facility] History of tobacco use Current smoker [facility] Start: 10-05-2017 End: 08-16-2023 Alcohol intake Current drinker of alcohol (finding) [facility] Start: 1935 Sex Assigned At Male [facility] Start: 05-31-2018 End: 05-31-2023 History of Social function [facility] Start: 05-31-2018 End: 05-31-2023 Tobacco use panel [facility] National Score (1-10 0), lower number is lower risk 57 [facility] Start: 11-12-2020 Gender identity Identifies as male gender (finding) [facility] Start: 11-12-2020 Sexual orientation Heterosexual (fin ding) [facility] Start: 06-19-2023 Tobacco Comment quit smoking in the 1950s [facility] Clinical Notes 05-31-2023 to 08-16-2023 Nima Tillman APRN.CNP - 08/16/2023 2:24 PM EDTPMiranda Griffith RN - 08/16/2023 2:00 PM Nima Breaux APRN.JAMAL - 08/02/2023 1:34 PM EDTPatient Instructions Note Date & Type Note Facility 08-16-2023 Note HNO ID: [id number] Author: Nima Tillman APRN.JAMAL Service: ? 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 He is accompanied by his for the clinic visit today. He has assistance of [facility] at home 2x/week for wound care. S/p CT pelvis on 07/04/2023; No drainable fluid collection or gas. No destructive osseous lesion. Location: right ischium, bilat lower legs Onset: May 2022 Aggravating factors: Immobility, Positioning, and Pressure Wound etiology: Pressure Associated pain with wound: No Relieving factors for wound pain: n/a Treatments: Current: sacral-zinc oxide; right ischial-MediHoney alginate; right lower leg-MediHoney gel, Adaptic Past: MediHoney gel, calcium alginate, Hydrofera blue PAST MEDICAL HISTORY Diagnosis Date Bacterial meningitis e-coli Dyslipidemia Hypertension Myelopathy (HCC) Nocardia infection chronic Bactrim therapy Seizures (HCC) controlled on Neurontin Sleep apnea Subarachnoid hemorrhage (HCC) Syringomyelia (HCC) cervical and thoracic PAST SURGICAL HISTORY Procedure Laterality Date APPENDECTOMY HX 56 ARTHRP KNE CONDYLEANDPLATU MEDIALANDLAT COMPARTMENTS 00 Knee replacement, total Rt HERNIA REPAIR HX 94 Rt inguinal IANDD ABSC; COMPL OR MULTI 2006 lt leg IANDD ABSC; SMPL OR SGL 2006 Rt forearm KNEE ARTHROSCOP MENISCUS REPAIR MED/LAT 79, 80, 82, 84, 93 Rt knee LAMINECT 1 SEGMT UNI/REAL EA ADD 07, 08 C7 T1 PAST SURGICAL HISTORY OF drainage of SAH PAST SURGICAL HISTORY OF TUFTER HAND shunt placement PAST SURGICAL HISTORY OF SVC and IVC filter PAST SURGICAL HISTORY OF C7 synringo-subarachnoid shunt PAST SURGICAL HISTORY OF T1 shunt placement PAST SURGICAL HISTORY OF 06? bilateral cataract surgery REVSC OPN/PRQ TIB/GARTH W/ANGIOPLASTY UNI 02-05-14 ROTATOR CUFF REPAIR 97 Rt SHOULDER ARTHROSCOPY/SURGERY 87,96 lt TRURL ELECTROSURG RESCJ PROSTATE BLEED COMPLETE 96 ALLERGIES ALLERGIES Allergen Reactions Cephlasporins [Ceph* Shortness of Breath Cephalexin Shortness of Breath Contrast Dye Hives CT contrast dye Heparin Other: See Comments Bleeds too easily Penicillins Rash, Itching CURRENT OUTPATIENT MEDICATIONS doxepin capsule 50 mg Take 50 mg by mouth daily at bedtime. topiramate (TOPAMAX) 50 mg tablet TAKE 1 TAB IN AM AND ONE AT BEDTIME X1 WEEK THEN 1 TAB IN AM AND TWO TABS AT BEDTIME clopidogrel (PLAVIX) 75 mg tablet Take 75 mg by mouth once daily. GABAPENTIN, BULK, MISC 300 mg daily at bedtime. 300mg in AM and 2 capsules (600mg) at bedtime ISOSORBIDE ORAL Take 10 mg by mouth once daily. ascorbic acid, vitamin C, (VITAMIN C) 500 mg tablet Take 500 mg by mouth twice daily. tamsulosin (FLOMAX) 0.4 mg Take 0.4 mg by mouth once daily. methadone HCl (METHADONE ORAL) Take 5 mg by mouth once daily. Take 1.5 tablets AM, 1.5 tablets PM AND 3 tablets bedtime lithium carbonate (ESKALITH) 150 mg capsule Take 150 mg by mouth once daily. Take 3 capsules daily for pain/spasms levothyroxine 50 mcg cap Take 50 mcg by mouth daily before breakfast. cyclobenzaprine HCl (FLEXERIL ORAL) Take 5 mg by mouth once daily. For muscle relaxation and spasms phenazopyridine HCl (AZO-TABS ORAL) Take 2 capsules by mouth once daily. atorvastatin (LIPITOR) 40 mg tablet Take 40 mg by mouth once daily. pollen extracts (PROSTAT ORAL) Take 1 Packet by mouth twice daily. losartan-hydrochlorothiazide 50-12.5 mg per tablet Take 1 tablet by mouth once daily. 12.5mg carvedilol (COREG) 3.125 mg tablet Take 3.125 mg by mouth once daily. pyridoxine, vitamin B6, (VITAMIN B6) 100 mg tablet Take 100 mg by mouth once daily. MAGNESIUM OXIDE ORAL Take 250 mg by mouth twice daily. Take 2 tablets twice a day FUROSEMIDE 40 MG TAB Take one(1) tablet daily. sulfamethoxazole/trimethoprim(BA CTRIM DS 160 MG-800 MG TAB) Take one(1) tablet daily multivitamins(DAILY MULTIVITAMIN TAB) Take one(1) tablet daily. ciprofloxacin HCl (CIPRO ORAL) Take 1 tablet by mouth twice daily. (Patient not taking: Reported on 08/02/2023) doxycycline (VIBRA-TABS) 100 mg tablet Take 1 tablet by mouth every 12 hours 6am/6pm. (Patient not taking: Reported on 07/17/2023) gentamicin 0.1 % ointment Apply to right buttock wound with each dressing change as directed (Patient not taking: Reported on 06/26/2023) acetam (more content not included)... [facility] 08-16-2023 History of Presen t illness Narrative Images from the original note were not included. 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 He is accompanied by his for the clinic visit today. He has assistance of [facility] at home 2x/week for wound care. S/p CT pelvis on 07/04/2023; No drainable fluid collection or gas. No destructive osseous lesion. Location: right ischium, bilat lower legs Onset: May 2022 Aggravating factors: Immobility, Positioning, and Pressure Wound etiology: Pressure Associated pain with wound: No Relieving factors for wound pain: n/a Treatments: Current: sacral-zinc oxide; right ischial-MediHoney alginate; right lower leg-MediHoney gel, Adaptic Past: MediHoney gel, calcium alginate, Hydrofera blue PAST MEDICAL HISTORY Diagnosis Date Bacterial meningitis e-coli Dyslipidemia Hypertension Myelopathy (HCC) Nocardia infection chronic Bactrim therapy Seizures (HCC) controlled on Neurontin Sleep apnea Subarachnoid hemorrhage (HCC) Syringomyelia (HCC) cervical and thoracic PAST SURGICAL HISTORY Procedure Laterality Date APPENDECTOMY HX 56 ARTHRP KNE CONDYLE&PLATU MEDIAL&LAT COMPARTMENTS 00 Knee replacement, total Rt HERNIA REPAIR HX 94 Rt inguinal I&D ABSC; COMPL OR MULTI 2006 lt leg I&D ABSC; SMPL OR SGL 2005 Rt forearm KNEE ARTHROSCOP MENISCUS REPAIR MED/LAT 79, 80, 82, 84, 93 Rt knee LAMINECT 1 SEGMT UNI/REAL EA ADD 07, 08 C7 T1 PAST SURGICAL HISTORY OF drainage of SAH PAST SURGICAL HISTORY OF TUFTER HAND shunt placement PAST SURGICAL HISTORY OF SVC and IVC filter PAST SURGICAL HISTORY OF C7 synringo-subarachnoid shunt PAST SURGICAL HISTORY OF T1 shunt placement PAST SURGICAL HISTORY OF 06? bilateral cataract surgery REVSC OPN/PRQ TIB/GARTH W/ANGIOPLASTY UNI 02-05-14 ROTATOR CUFF REPAIR 97 Rt SHOULDER ARTHROSCOPY/SURGERY 87,96 lt TRURL ELECTROSURG RESCJ PROSTATE BLEED COMPLETE 96 ALLERGIES ALLERGIES Allergen Reactions Cephlasporins [Ceph* Shortness of Breath Cephalexin Shortness of Breath Contrast Dye Hives CT contrast dye Heparin Other: See Comments Bleeds too easily Penicillins Rash, Itching CURRENT OUTPATIENT MEDICATIONS doxepin capsule 50 mg Take 50 mg by mouth daily at bedtime. topiramate (TOPAMAX) 50 mg tablet TAKE 1 TAB IN AM AND ONE AT BEDTIME X1 WEEK THEN 1 TAB IN AM AND TWO TABS AT BEDTIME clopidogrel (PLAVIX) 75 mg tablet Take 75 mg by mouth once daily. GABAPENTIN, BULK, MISC 300 mg daily at bedtime. 300mg in AM and 2 capsules (600mg) at bedtime ISOSORBIDE ORAL Take 10 mg by mouth once daily. ascorbic acid, vitamin C, (VITAMIN C) 500 mg tablet Take 500 mg by mouth twice daily. tamsulosin (FLOMAX) 0.4 mg Take 0.4 mg by mouth once daily. methadone HCl (METHADONE ORAL) Take 5 mg by mouth once daily. Take 1.5 tablets AM, 1.5 tablets PM & 3 tablets bedtime lithium carbonate (ESKALITH) 150 mg capsule Take 150 mg by mouth once daily. Take 3 capsules daily for pain/spasms levothyroxine 50 mcg cap Take 50 mcg by mouth daily before breakfast. cyclobenzaprine HCl (FLEXERIL ORAL) Take 5 mg by mouth once daily. For muscle relaxation and spasms phenazopyridine HCl (AZO-TABS ORAL) Take 2 capsules by mouth once daily. atorvastatin (LIPITOR) 40 mg tablet Take 40 mg by mouth once daily. pollen extracts (PROSTAT ORAL) Take 1 Packet by mouth twice daily. losartan-hydrochlorothiazide 50-12.5 mg per tablet Take 1 tablet by mouth once daily. 12.5mg carvedilol (COREG) 3.125 mg tablet Take 3.125 mg by mouth once daily. pyridoxine, vitamin B6, (VITAMIN B6) 100 mg tablet Take 100 mg by mouth once daily. MAGNESIUM OXIDE ORAL Take 250 mg by mouth twice daily. Take 2 tablets twice a day FUROSEMIDE 40 MG TAB Take one(1) tablet daily. sulfamethoxazole/trimethoprim(BA CTRIM DS 160 MG-800 MG TAB) Take one(1) tablet daily multivitamins(DAILY MULTIVITAMIN TAB) Take one(1) tablet daily. ciprofloxacin HCl (CIPRO ORAL) Take 1 tablet by mouth twice daily. (Patient not taking: Reported on 08/02/2023) doxycycline (VIBRA-TABS) 100 mg tablet Take 1 tablet by mouth every 12 hours 6am/6pm. (Patient not taking: Reported on 07/17/2023) gentamicin 0.1 % ointment Apply to right buttock wound with each dressing change as directed (Patient not taking: Reported on 06/26/2023) acetaminophen/diphenhydramine (TYLENOL PM ORAL) Take 1 tablet by mouth daily at bedtime. (Patient not taking: Reported on 08/02/2023) traZODone (DESYREL) 50 mg tablet Take 50 mg by mouth daily at bedtime. Take 1.5 tablets at bedtime for sleep (Patient not taking: Reported on 08/02/2023) hydrocortisone (CORTEF) 20 mg tablet Take 20 mg by mouth once daily. metFORMIN (GLUCOPHAGE) 500 mg tablet Take 500 mg by mouth twice daily with meals. RANITIDINE HCL ORAL Take by mouth. topiramate (TOPAMAX) 25 mg tablet Take 1 tab twice daily x2 weeks and then increase to 2 tabs twice daily and continue. (Patient taking differently: Take 1 tab twice daily x2 weeks and then increase to 2 tabs twice daily and continue. Then increase to 3 tablets per day.) HYDROcodone-Acetaminophen 10-325 mg per tablet Take 1 tablet by mouth twice daily. morphine SR (ORAMORPH SR) 15 mg 12 hr tablet Take 15 mg by mouth twice daily. zolpidem (AMBIEN) 5 mg tablet Take 5 mg by mouth at bedtime as needed. gabapentin(NEURONTIN 300 MG CAP) take 600 mg in AM, 300 mg @ dinner time, and 600 mg at bedtime duloxetine hcl(CYMBALTA 30 MG CAP) Take one(1) capsule daily. docusate sodium(STOOL SOFTENER 100 MG CAP) Take one(1) capsule twice daily. (Patient not taking: Reported on 05/31/2023) sennosides(VEGETABLE LAXATIVE 8.6 MG TAB) two tabs daily GARLIC 500 MG CAP one cap daily WARFARIN 6 MG TAB Take one tab daily FAMILY HISTORY Problem Relation Age of Onset other (depression [Other]) Sister other (depression [Other]) Mother other (depression [Other]) Brother other (htn [Other]) Father other (alcoholism [Other]) Father Heart Father Hypertension Father Diabetes Father Alcohol/Drug Father Social History Tobacco Use Smoking status: Former Tobacco comments: quit smoking in the 1950s Substance Use Topics Alcohol use: Yes Comment: a glass of wine at bedtime, occasional bourbon or beer Drug use: No REVIEW OF SYSTEMS: GENERAL: No weight loss, malaise or fevers RESPIRATORY: Negative for cough, hemoptysis, wheezing, COPD, dyspnea or shortness of breath CARDIOVASCULAR: Negative for chest pain, HTN, CHF or palpitations. Positive leg edema GI: No nausea, vomiting, or diarrhea. Positive colostomy MUSCULOSKELETAL: Negative for joint pain or swelling, back pain or muscle pain. Positive paraplegia. SKIN: Negative for lesions, rash, and itching. Positive ulcers, right ischium, sacral, right lower leg HEMATOLOGY/LYMPHOLOGY: Negative for prolonged bleeding, bruising easily or swollen nodes ENDOCRINE: Negative for cold or heat intolerance, polyuria, polydipsia and goiter NEURO: paraplegia Nutrition Diet:regular Supplement: Prostat, MVI Appetite: good PHYSICAL EXAM: BP 169/70 / Pulse 77 / Resp 18 / Temp 98 F / SpO2 98% General appearance: Well appearing, alert, in no acute distress, well-hydrated, well nourished. and wheelchair bound. Skin: Skin color, texture, turgor normal, no suspicious rashes or lesions. Positive ulcers, right ischium, sacral, right lower legs (see wound assessment) Head: Normocephalic, no masses, lesions, tenderness or abnormalities Eyes: Anicteric sclera. Pupils are equally round and reactive to light. Extraocular movements are intact. Lungs: normal respiratory rate and rhythm Abdomen: soft, nontender. Colostomy appliance intact Extremities: Edema: 3+ edema right lower leg, 4+ edema right foot, 3+ edema right ankle; 2+ edema left lower leg, 4+ edema left foot, 3+ edema left ankle Musculoskeletal: No joint swelling, deformity, or tenderness Peripheral pulses: triphasic DP doppler signals x 2. Biphasic PT doppler signals x 2 Neuro: Oriented X 3. Paraplegic. WOUND ASSESSMENT Wound 1: Location: right ischium Type: pressure injury Stage: Stage 3 Exposed structure:None Progress: no significant change in size Wound measurements (cm): 2.3 x 1.9 x 0.2 Full thickness- Yes Tunneling/undermining: undermining, 0.1cm @0300 Wound tissue color: 20% pink/red and 80% slough Periwound tissue: rash (erythema with scaling and satellite lesions at periphery) Drainage: serosanguinous, medium amount Drainage odor: none Wound 2: Location: left sacrum Type: pressure injury Stage: stage 2 Exposed structure:None Progress: closed Wound measurements (cm): 0 Full thickness- Yes Tunneling/undermining: none Wound tissue color: epithelial Periwound tissue: dry and intact, scar tissue Drainage: none Drainage odor: n/a Wound 3: Location: right lateral lower leg Type: vascular Stage: n/a Exposed structure:None Progress: improved Wound measurements (cm): Full thickness- Yes Tunneling/undermining: none Wound tissue color: Periwound tissue: Drainage: Drainage odor: Comment: wound now into two wounds, 3A, 3B Wound 3A: Location: right lateral lower leg proximal Type: vascular Stage: n/a Exposed structure:None Progress: improved Wound measurements (cm):1.4 x 0.7 x 0.1 Full thickness- Yes Tunneling/undermining: none Wound tissue color: fibrinous slough Periwound tissue: dry and intact, scar tissue Drainage: serosanguinous, medium Drainage odor: none Wound 3B: Location: right lateral lower leg distal Type: vascular Stage: n/a Exposed structure:None Progress: improved Wound measurements (cm):1.9 x 1.8 x 0.1 Full thickness- Yes Tunneling/undermining: none Wound tissue color: 90% fibrinous slough, 10% red Periwound tissue: dry and intact, scar tissue Drainage: serosanguinous, medium Drainage odor: none Wound 4: Location: left lateral lower leg Type: vascular Stage: n/a Exposed structure:None Progress: remains closed Wound measurements (cm): 0 Full thickness- Yes Tunneling/undermining: none Wound tissue color: epithelial Periwound tissue:dry and intact Drainage: none Drainage odor: n/a PROCEDURE: Sharp Excisional Debridement- right ischium A time out was performed immediately prior to procedure start with the SECURITY PATROL DRIVER and team , correctly identifying the patient name, date of , procedure, anatomy, patient position, safety precautions, and procedure-specific equipment needs. The procedure was explained to the patient including the risks, benefits and alternatives. The risks, including but not limited to infection and bleeding, were reviewed by the performing provider and the patient agrees to undergo the procedure. Written consent was obtained . With appropriate consent the wound was sharply debrided down to and including subcutaneous tissue Total tissue debrided Less than 20 sq.cm Using a sterile curette the wound was debrided. Patient required pre-medication: Lidogel 2% Patient expressed pain during procedure: no Scale: 0 EBL: none Wound measurement prior to debridement: 2.3 x 1.9 x 0.2 Wound measurement post debridement: 2.0 x 2.0 x 0.2 Type of tissue debrided: ( slough, necrotic, devitalized) Tissue at wound bed after debridment: 75% red, 25% slough Dressing applied after debridement: yes Patient tolerated procedure well without apparent complications. PROCEDURE: Sharp Excisional Debridement- right lateral lower leg proximal A time out was performed immediately prior to procedure start with the SECURITY PATROL DRIVER and team , correctly identifying the patient name, date of , procedure, anatomy, patient position, safety precautions, and procedure-specific equipment needs. The procedure was explained to the patient including the risks, benefits and alternatives. The risks, including but not limited to infection and bleeding, were reviewed by the performing provider and the patient agrees to undergo the procedure. Written consent was obtained . With appropriate consent the wound was sharply debrided down to and including subcutaneous tissue Total tissue debrided Less than 20 sq.cm Using a sterile curette, the wound was debrided. Patient required pre-medication: Lidocaine gel 2% Patient expressed pain during procedure: no Scale: 0 EBL: none Wound measurement prior to debridement: 1.4 x 0.7 x 0.1 Wound measurement post debridement: 1.5 x 0.7 x 0.1 Type of tissue debrided: ( slough, necrotic, devitalized) Tissue at wound bed after debridment: fibrinous slough, red Dressing applied after debridement: yes Patient tolerated procedure well without apparent complications. PROCEDURE: Sharp Excisional Debridement- right lateral lower leg distal A time out was performed immediately prior to procedure start with the SECURITY PATROL DRIVER and team , correctly identifying the patient name, date of , procedure, anatomy, patient position, safety precautions, and procedure-specific equipment needs. The procedure was explained to the patient including the risks, benefits and alternatives. The risks, including but not limited to infection and bleeding, were reviewed by the performing provider and the patient agrees to undergo the procedure. Written consent was obtained . With appropriate consent the wound was sharply debrided down to and including subcutaneous tissue Total tissue debrided Less than 20 sq.cm Using a sterile curette, the wound was debrided. Patient required pre-medication: Lidocaine gel 2% Patient expressed pain during procedure: no Scale: 0 EBL: none Wound measurement prior to debridement: 1.9 x 1.8 x 0.1 Wound measurement post debridement: 1.7 x 2.0 x 0.1 Type of tissue debrided: ( slough, necrotic, devitalized) Tissue at wound bed after debridment: fibrinous slough, red Dressing applied after debridement: yes Patient tolerated procedure well without apparent complications. DATA PHOTOGRAPHY: yes A photo was taken of the patient's wound(s). Photos can be found under the [facility] scanned docs tab on [facility]. The purpose of the photo(s) is to optimize the patient's medical care and allow a visual aid to their wound evaluation and progress. The photo(s) are not intended for publication, education, or research. If the use of the photo is desired in any additional way, other than for the above outlined purposes, then an additional consent for the intended use will need to be obtained by the requesting provider. Photo was taken of: right ischium, left sacrum, right lateral lower leg Verbal consent was obtained: yes WBC (k/uL) Date Value 06/19/2023 7.98 Hemoglobin (g/dL) Date Value 06/19/2023 13.7 Sodium (mmol/L) Date Value 06/19/2023 140 11/02/2009 141 Potassium (mmol/L) Date Value 06/19/2023 4.3 11/02/2009 3.8 CO2 (mmol/L) Date Value 06/19/2023 27 11/02/2009 27 BUN (mg/dL) Date Value 06/19/2023 21 10/21/2015 20 11/02/2009 21 AST (U/L) Date Value 06/19/2023 154 11/02/2009 24 ALT (U/L) Date Value 06/19/2023 166 11/02/2009 36 Bilirubin, Total (mg/dL) Date Value 06/19/2023 0.4 11/02/2009 0.4 Alkaline Phosphatase (U/L) Date Value 06/19/2023 341 11/02/2009 109 MICROBIOLOGY: Reviewed; wound culture, sacral, right leg (06/19/2023)- few skin eric IMAGING: Reviewed IMPRESSION/RECOMMENDATIONS The patient's age, altered mobility, and other co morbidities are likely to impact wound and skin integrity Additional impediments to healing Diabetic: No Anticoagulation: Clopidogrel Antibiotics: Bactrim Steroids: No (L89.313) Pressure injury of right ischium, stage 3 (HCC) (L89.152) Pressure injury of sacral region, stage 2 (L97.911) Skin ulcer of right lower leg, limited to breakdown of skin ([facility]) Comment: Sacral wound healed. Right lateral lower leg wound improved. Fungal rash of right ischial periwound; no significant change in wound size. Right ischial wound compromised by immobility secondary to paraplegia and lack of offloading. Pt sits up in wheelchair all day. Offloading has been discussed with pt/spouse multiple times. Pt states he will try to lay down a few hours during the day. Plan: - Cleanse wounds and periwound skin with Vashe solution and gauze. Pat dry. Skin prep periwound. - Apply Clotrimazole 1% cream to right ischial periwound area. Apply silver alginate to right ischial wound. Cover with [place] SAP dressing. Change dressing daily and prn. - Apply Vaseline to sacral area for protection. May cover with with bordered foam dressing to pad and protect for pt comfort (Sacral bordered foam dressing applied in clinic today). Change dressing twice a week. Apply Vaseline to area daily if leaving CIVIL ESTIMATOR. - Apply MediHoney gel and Adaptic to right lower leg wounds. Cover with 4x4's, ABD and conform roll gauze. Change dressing 3x/week and prn. - Betadine to right lateral ankle. Cover with ABD and conform roll gauze. Change 3x/week and prn. - Vaseline to intact skin bilat LE - Single layer Tubi-child care coordinator bilat LE for compression/edema control - Turn/reposition frequently in bed - Frequent weight shifts when seated - Pressure reduction devices as needed ---ROHO chair cushion in place; DO NOT use donut cushion for pressure relief ---memory foam mattress topper in place - Limit sitting in chair ----try to lay down to completely offload wound twice a day - Continue aggressive nutritional support to assist wound healing - Follow up in wound center in 2 weeks I discussed the plan in detail with the patient and the patient verbalizes understanding and is in agreement. My previous progress note dated 08/02/2023 was copied forward, updated where appropriate, and reflective of current medical decision making today, 08/16/2023. Nima Tillman APRN, JAMAL, CWS Certified Automobile Mechanic Apprentice August 16, 2023 documented in this encounter [facility] 08-16-2023 Instructions Miranda Matute RN - 08/16/2023 2:07 PM EDT WOUND C[facility] INSTRUCTIONS[facility] FAX: [phone] or [phone] Dr. [facility] Wound location: Right Ischium Wash your hands with soap and water before and after wound care. Gather all supplies needed. Wash wound with Dial soap and water. Pat dry. Apply Vashe soak: apply Vashe moistened gauze to the wound and allow to soak for 5-10 minutes, then remove and pat dry. Apply Clotrimazole antifungal cream to the renée-wound redness. Apply a piece of Silver Alginate (felt material), cut to fit the size of the wound, and apply directly to wound bed. Cover with 4x4 [place] SAP (silicone bordered bandage). Change your dressing DAILY and as needed to maintain a clean, dry, & intact dressing. Wound location: Left Sacrum - CLOSED 08/16/23 Moisturize with Vaseline daily and leave open to air or cover with a bandage of your choice. Right Lateral Lower Leg - Proximal & Distal: Wash your hands with soap and water before and after wound care. Gather all supplies needed. Wash wound with Liquid Gold Antibacterial Dial soap and water. Pat dry with a paper towel (your body towel can introduce bacteria). Apply Vashe moistened gauze to the wound and allow to soak for 5-10 minutes, then remove and pat dry. Apply a nickel-thick layer of Medihoney gel to the wound bed. Cut a single layer piece of Adaptic (oily mesh), to fit size of wound, & apply to the wound. Cover with 4x4 gauze, ABD pad, conform gauze wrap, & secure with tape. Change your dressing 3 x weekly and as needed to maintain a clean, dry, & intact dressing. Apply single layer tubi child care coordinator size D to right and left legs from base of toes to 1 inch below the knee. Right lateral hip area of concern: reddened - Please pad/protect with a bordered foam dressing and change 3 times per week. Position changes every 2 hours - lay in recliner on your side, get into bed and lay on your sides, use pillow to help keep you off of the wound To give your wound the best chance to heal: - Eat three balanced meals daily focusing on the protein - Control swelling by elevating the extremity above your heart - Complete your wound care instructions - Vitamin C 500 mg twice daily - Multiple Vitamin Daily - Drink a protein shake daily Report any of the following changes [phone] or go to the Emergency Department: Fever or chills Increased drainage Green or yellow drainage Foul odor Increased pain Hardness around the wound Redness, warmth or swelling of the surrounding tissue Color change to the wound Evenings / Weekends / Holidays If you call the wound center at the phone number provided above, please leave a detailed message that includes your full name, birthday, and phone number. We are seeing patients during the day, so we will return your call within a 24-48 hr period in the order your call was received. There is not an on-call provider assigned to the wound center. If you have an emergency that needs to be addressed, please go to an Urgent Care or Emergency Room. Thank you for your cooperation and understanding. Plan: - Follow-up in the wound center with Nima Tillman CNP in 2 weeks. - Continue aggressive nutritional support for optimal wound healing. - Silver nitrate was used on your wound today. The wound bed may appear valencia/black in appearance for a few days after application. 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) Dr. [place] [facility] Consent captured for debridement per Nima Tillman CNP and april until 2023 Special Instructions: bed, will need harper unless accompanied by son who transfers him. Anticoagulant Therapy: Plavix Living Situation: house Who lives with patient: : Mary Who will be performing wound care: and 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) Provider seeing patient: Nima MilianmercedeskarissaJAMAL WOUND ASSESSMENT: Refer to Provider's Wound Assessment Note VASCULAR ASSESSMENT BY PROVIDER: not assessed at 06/26/23 visit CHF History: denies EDEMA: Right foot: 4+ Right Ankle: 3+ Right calf: 3+ Left foot: 4+ Left Ankle: 3+ Left Calf: 2+ MEASUREMENTS: in CM Right Calf: 26.0 Right Ankle: 21.5 Left Calf: 27.5 Left Ankle: 24.0 Length: 48.5 (Not Measured this Visit) WOUND PHOTOGRAPHY: Yes x 3 DEBRIDEMENT PROCEDURE BY PROVIDER: Anesthetic Used: 2% lidogel applied per [facility] & Desiree Miller RN Wound #1 & 2 Other procedure: N/A Specimen collected: N/A WOUND TREATMENT PER MD ORDER: Wounds cleansed by mechanical debridement to allow provider to visualize wound base Roll patient to the left side to visualize all wounds WOUND # 1 - LOCATION: Right Ischium (May 2022) L: 2.3 cm x W: 1.9 cm x D: 0.2 cm - worsening renée-wound redness, possibly fungal Debridement by Provider: SubQ Post Debridement Measurements: L: 2.0 cm x W: 2.0 cm x D: 0.2 cm Macerated circumferential Underminin - 0.1 cm Cleansed with: Vashe Applied to renée-wound skin: Skin prep & Clotrimazole cream Applied to wound bed: Silver Alginate Covered and secured with: 4x4 [place] SAP WOUND # 2 - LOCATION: Left Sacrum (New 06/19/23) CLOSED 08/16/23 Cleansed with: NS Applied to renée-wound skin: Vaseline Applied to wound bed: Vaseline Covered and secured with: Pt's own sacral bandage (New 06/19/23) - Wounds split into two wounds 3A & 3B on 08/16/23, as listed below WOUND # 3A - LOCATION: Right lateral Lower Leg - Proximal 08/16/23 L: 1.4 cm x W: 0.7 cm x D: 0.1 cm DEBRIDEMENT by provider: SubQ Post Debridement Measurements: L: 1.5 cm x W: 0.7 cm x D: 0.1 cm WOUND # 3B - LOCATION: Right lateral Lower Leg - Distal 08/16/23 L: 1.9 cm x W: 1.8 cm x D: 0.1 cm DEBRIDEMENT by provider: SubQ Post Debridement Measurements: L: 1.7 cm x W: 2.0 cm x D: 0.1 cm Cleansed with: Vashe Applied to renée-wound skin: Vaseline Applied to wound bed: Adaptic, 4x4 gauze, & ABD Covered and secured with: Conform & tape. WOUND # 4 - LOCATION: Left Lateral Lower Leg (New 06/19/23) CLOSED 08/02/23, remains healed 08/16/23 DEBRIDEMENT by provider: N/A Cleansed with: N/A Applied to renée-wound skin: Vaseline Applied to wound bed: Vaseline Covered and secured with: N/A Area of concern: Multiple scattered DTI Left Buttocks - resolved Area of Concern: Left Medial Lower Leg - erythematous on 06/26/23, now an intact blood blister on 07/03/23 - padded and protected Area of concern: right mid back flat blood blisters- scabbed 07/03/23 07/03/23: Area of Concern: right hip red, blanchable - [place] SAP 4x4 Area of Concern: Right Lateral Ankle (New 07/17/23) - Betadine COMPRESSION: Single layer tubi-child care coordinator size D to BLE SPECIAL NEEDS: Coordination of care - AVS sent to [facility] Emotional support N/A OR set-up N/A Physician Vice President N/A Incontinence needs N/A DISCHARGED in stable condition to: Home via wheelchair with Global surgical period dates if applicable: N/A Plan: - Follow-up in the wound center with Nima Tillman CNP in 2 weeks. - Continue aggressive nutritional support for optimal wound healing. - Silver nitrate was used on your wound today. The wound bed may appear valencia/black in appearance for a few days after application. EDUCATION: The patient/family was instructed how to cleanse the wound(s). Visual demonstration on how to apply the dressing with teach back method. Signs & symptoms of infection were reviewed: Increased redness, swelling, pain, green/yellow drainage, fever and/or chills would all need to be evaluated by a Physician. Patient received typed home-going wound care instructions and has expressed intent to comply. OTHER EDUCATION: Nima discussed wound progress & new wound care; the need for off-loading the right hip as well; discussed CT scan scheduled tomorrow at [place]; patient to follow-up here in 2 weeks. Education performed regarding lymphedema/edema: Elevation of extremity above the heart for 30 minutes three times daily and as needed Exercise such as writing the ABC's with your toes in the air, walking and/or calf pumps Wearing compression as ordered by provider Diet controlling of sodium as instructed by provider Use of medication to help control edema. UNIVERSAL PROTOCOL / SAFETY CHECKLIST Procedure to be Performed: Sharp debridement buttock & leg wounds Sign In: 1420 A Moment of CARE was completed. Personnel directly involved with the procedure wore the appropriate PPE (Personal Protective Equipment). Patient/Surrogate Stated/Verified: PATIENT VERIFIED(optional for EMERGENT procedures): Patient name, Date of , Relevant allergies, and The intended procedure Time Out Communication: 1450 Intended patient and procedure match the source documents. Consent documented and matches the intended procedure. Sign Out: 1450 SIGN OUT (optional for EMERGENT procedures): No specimen collected. Current HBOT Status: Active or Complete - see screening below WOUND CENTER HYPERBARIC OXYGEN THERAPY SCREENING 1. Is the patient diabetic? (If No, skip to question 5) No 5. Has the patient been diagnosed with osteomyelitis? No 6. Has the patient had a previous skin graft or flap at the wound? No 7. Has the patient had or been offered vascular intervention/evaluation? No 8. Does the patient have a wound at an amputation site? No 9. Has the patient had radiation therapy at the site of the problem? No If Yes to ANY of questions 5-9, consult the [facility] Center Miranda Matute RN//EILEEN documented in this encounter [facility] 08-02-2023 Note HNO ID: [id number] Author: Nima Tillman APRN.DARK ROOM ATTENDANT Service: ? 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 He is accompanied by his for the clinic visit today. He has assistance of [facility] at home 3x/week for wound care. S/p CT pelvis on 07/04/2023; No drainable fluid collection or gas. No destructive osseous lesion. Pt reports today she stopped using the MediHoney gel on the right ischial wound as the MediHoney seemed to just slide off. They have been using just the calcium alginate instead. Location: right ischium, bilat lower legs Onset: May 2022 Aggravating factors: Immobility, Positioning, and Pressure Wound etiology: Pressure Associated pain with wound: No Relieving factors for wound pain: n/a Treatments: Current: sacral-MediHoney, calcium alginate; right ischial-MediHoney, calcium alginate; bilat LE- betadine Past: Hydrofera blue PAST MEDICAL HISTORY Diagnosis Date Bacterial meningitis e-coli Dyslipidemia Hypertension Myelopathy (HCC) Nocardia infection chronic Bactrim therapy Seizures (HCC) controlled on Neurontin Sleep apnea Subarachnoid hemorrhage (HCC) Syringomyelia (HCC) cervical and thoracic PAST SURGICAL HISTORY Procedure Laterality Date APPENDECTOMY HX 56 ARTHRP KNE CONDYLEANDPLATU MEDIALANDLAT COMPARTMENTS 00 Knee replacement, total Rt HERNIA REPAIR HX 94 Rt inguinal IANDD ABSC; COMPL OR MULTI 2006 lt leg IANDD ABSC; SMPL OR SGL 2006 Rt forearm KNEE ARTHROSCOP MENISCUS REPAIR MED/LAT 79, 80, 82, 84, 93 Rt knee LAMINECT 1 SEGMT UNI/REAL EA ADD 07, 08 C7 T1 PAST SURGICAL HISTORY OF drainage of SAH PAST SURGICAL HISTORY OF TUFTER HAND shunt placement PAST SURGICAL HISTORY OF SVC and IVC filter PAST SURGICAL HISTORY OF C7 synringo-subarachnoid shunt PAST SURGICAL HISTORY OF T1 shunt placement PAST SURGICAL HISTORY OF 06? bilateral cataract surgery REVSC OPN/PRQ TIB/GARTH W/ANGIOPLASTY UNI 02-05-14 ROTATOR CUFF REPAIR 97 Rt SHOULDER ARTHROSCOPY/SURGERY 87,96 lt TRURL ELECTROSURG RESCJ PROSTATE BLEED COMPLETE 96 ALLERGIES ALLERGIES Allergen Reactions Cephlasporins [Ceph* Shortness of Breath Cephalexin Shortness of Breath Contrast Dye Hives CT contrast dye Heparin Other: See Comments Bleeds too easily Penicillins Rash, Itching CURRENT OUTPATIENT MEDICATIONS doxepin capsule 50 mg Take 50 mg by mouth daily at bedtime. topiramate (TOPAMAX) 50 mg tablet TAKE 1 TAB IN AM AND ONE AT BEDTIME X1 WEEK THEN 1 TAB IN AM AND TWO TABS AT BEDTIME clopidogrel (PLAVIX) 75 mg tablet Take 75 mg by mouth once daily. GABAPENTIN, BULK, MISC 300 mg daily at bedtime. 300mg in AM and 2 capsules (600mg) at bedtime ISOSORBIDE ORAL Take 10 mg by mouth once daily. ascorbic acid, vitamin C, (VITAMIN C) 500 mg tablet Take 500 mg by mouth twice daily. tamsulosin (FLOMAX) 0.4 mg Take 0.4 mg by mouth once daily. methadone HCl (METHADONE ORAL) Take 5 mg by mouth once daily. Take 1.5 tablets AM, 1.5 tablets PM AND 3 tablets bedtime lithium carbonate (ESKALITH) 150 mg capsule Take 150 mg by mouth once daily. Take 3 capsules daily for pain/spasms levothyroxine 50 mcg cap Take 50 mcg by mouth daily before breakfast. cyclobenzaprine HCl (FLEXERIL ORAL) Take 5 mg by mouth once daily. For muscle relaxation and spasms phenazopyridine HCl (AZO-TABS ORAL) Take 2 capsules by mouth once daily. atorvastatin (LIPITOR) 40 mg tablet Take 40 mg by mouth once daily. pollen extracts (PROSTAT ORAL) Take 1 Packet by mouth twice daily. losartan-hydrochlorothiazide 50-12.5 mg per tablet Take 1 tablet by mouth once daily. 12.5mg carvedilol (COREG) 3.125 mg tablet Take 3.125 mg by mouth once daily. pyridoxine, vitamin B6, (VITAMIN B6) 100 mg tablet Take 100 mg by mouth once daily. MAGNESIUM OXIDE ORAL Take 250 mg by mouth twice daily. Take 2 tablets twice a day FUROSEMIDE 40 MG TAB Take one(1) tablet daily. sulfamethoxazole/trimethoprim(BA CTRIM DS 160 MG-800 MG TAB) Take one(1) tablet daily multivitamins(DAILY MULTIVITAMIN TAB) Take one(1) tablet daily. ciprofloxacin HCl (CIPRO ORAL) Take 1 tablet by mouth twice daily. (Patient not taking: Reported on 08/02/2023) doxycycline (VIBRA-TABS) 100 mg tablet Take 1 tablet by mouth every 12 hours 6am/6pm. (Patient not taking: Reported on (more content not included)... [facility] 08-02-2023 History of Presen t illness Narrative Images from the original note were not included. 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 He is accompanied by his for the clinic visit today. He has assistance of [facility] at home 3x/week for wound care. S/p CT pelvis on 07/04/2023; No drainable fluid collection or gas. No destructive osseous lesion. Pt reports today she stopped using the MediHoney gel on the right ischial wound as the MediHoney seemed to just slide off. They have been using just the calcium alginate instead. Location: right ischium, bilat lower legs Onset: May 2022 Aggravating factors: Immobility, Positioning, and Pressure Wound etiology: Pressure Associated pain with wound: No Relieving factors for wound pain: n/a Treatments: Current: sacral-MediHoney, calcium alginate; right ischial-MediHoney, calcium alginate; bilat LE- betadine Past: Hydrofera blue PAST MEDICAL HISTORY Diagnosis Date Bacterial meningitis e-coli Dyslipidemia Hypertension Myelopathy (HCC) Nocardia infection chronic Bactrim therapy Seizures (HCC) controlled on Neurontin Sleep apnea Subarachnoid hemorrhage (HCC) Syringomyelia (HCC) cervical and thoracic PAST SURGICAL HISTORY Procedure Laterality Date APPENDECTOMY HX 56 ARTHRP KNE CONDYLE&PLATU MEDIAL&LAT COMPARTMENTS 00 Knee replacement, total Rt HERNIA REPAIR HX 94 Rt inguinal I&D ABSC; COMPL OR MULTI 2006 lt leg I&D ABSC; SMPL OR SGL 2006 Rt forearm KNEE ARTHROSCOP MENISCUS REPAIR MED/LAT 79, 80, 82, 84, 93 Rt knee LAMINECT 1 SEGMT UNI/REAL EA ADD 07, 08 C7 T1 PAST SURGICAL HISTORY OF drainage of SAH PAST SURGICAL HISTORY OF TUFTER HAND shunt placement PAST SURGICAL HISTORY OF SVC and IVC filter PAST SURGICAL HISTORY OF C7 synringo-subarachnoid shunt PAST SURGICAL HISTORY OF T1 shunt placement PAST SURGICAL HISTORY OF 06? bilateral cataract surgery REVSC OPN/PRQ TIB/GARTH W/ANGIOPLASTY UNI 02-05-14 ROTATOR CUFF REPAIR 97 Rt SHOULDER ARTHROSCOPY/SURGERY 87,96 lt TRURL ELECTROSURG RESCJ PROSTATE BLEED COMPLETE 96 ALLERGIES ALLERGIES Allergen Reactions Cephlasporins [Ceph* Shortness of Breath Cephalexin Shortness of Breath Contrast Dye Hives CT contrast dye Heparin Other: See Comments Bleeds too easily Penicillins Rash, Itching CURRENT OUTPATIENT MEDICATIONS doxepin capsule 50 mg Take 50 mg by mouth daily at bedtime. topiramate (TOPAMAX) 50 mg tablet TAKE 1 TAB IN AM AND ONE AT BEDTIME X1 WEEK THEN 1 TAB IN AM AND TWO TABS AT BEDTIME clopidogrel (PLAVIX) 75 mg tablet Take 75 mg by mouth once daily. GABAPENTIN, BULK, MISC 300 mg daily at bedtime. 300mg in AM and 2 capsules (600mg) at bedtime ISOSORBIDE ORAL Take 10 mg by mouth once daily. ascorbic acid, vitamin C, (VITAMIN C) 500 mg tablet Take 500 mg by mouth twice daily. tamsulosin (FLOMAX) 0.4 mg Take 0.4 mg by mouth once daily. methadone HCl (METHADONE ORAL) Take 5 mg by mouth once daily. Take 1.5 tablets AM, 1.5 tablets PM & 3 tablets bedtime lithium carbonate (ESKALITH) 150 mg capsule Take 150 mg by mouth once daily. Take 3 capsules daily for pain/spasms levothyroxine 50 mcg cap Take 50 mcg by mouth daily before breakfast. cyclobenzaprine HCl (FLEXERIL ORAL) Take 5 mg by mouth once daily. For muscle relaxation and spasms phenazopyridine HCl (AZO-TABS ORAL) Take 2 capsules by mouth once daily. atorvastatin (LIPITOR) 40 mg tablet Take 40 mg by mouth once daily. pollen extracts (PROSTAT ORAL) Take 1 Packet by mouth twice daily. losartan-hydrochlorothiazide 50-12.5 mg per tablet Take 1 tablet by mouth once daily. 12.5mg carvedilol (COREG) 3.125 mg tablet Take 3.125 mg by mouth once daily. pyridoxine, vitamin B6, (VITAMIN B6) 100 mg tablet Take 100 mg by mouth once daily. MAGNESIUM OXIDE ORAL Take 250 mg by mouth twice daily. Take 2 tablets twice a day FUROSEMIDE 40 MG TAB Take one(1) tablet daily. sulfamethoxazole/trimethoprim(BA CTRIM DS 160 MG-800 MG TAB) Take one(1) tablet daily multivitamins(DAILY MULTIVITAMIN TAB) Take one(1) tablet daily. ciprofloxacin HCl (CIPRO ORAL) Take 1 tablet by mouth twice daily. (Patient not taking: Reported on 08/02/2023) doxycycline (VIBRA-TABS) 100 mg tablet Take 1 tablet by mouth every 12 hours 6am/6pm. (Patient not taking: Reported on 07/17/2023) gentamicin 0.1 % ointment Apply to right buttock wound with each dressing change as directed (Patient not taking: Reported on 06/26/2023) acetaminophen/diphenhydramine (TYLENOL PM ORAL) Take 1 tablet by mouth daily at bedtime. (Patient not taking: Reported on 08/02/2023) traZODone (DESYREL) 50 mg tablet Take 50 mg by mouth daily at bedtime. Take 1.5 tablets at bedtime for sleep (Patient not taking: Reported on 08/02/2023) hydrocortisone (CORTEF) 20 mg tablet Take 20 mg by mouth once daily. metFORMIN (GLUCOPHAGE) 500 mg tablet Take 500 mg by mouth twice daily with meals. RANITIDINE HCL ORAL Take by mouth. topiramate (TOPAMAX) 25 mg tablet Take 1 tab twice daily x2 weeks and then increase to 2 tabs twice daily and continue. (Patient taking differently: Take 1 tab twice daily x2 weeks and then increase to 2 tabs twice daily and continue. Then increase to 3 tablets per day.) HYDROcodone-Acetaminophen 10-325 mg per tablet Take 1 tablet by mouth twice daily. morphine SR (ORAMORPH SR) 15 mg 12 hr tablet Take 15 mg by mouth twice daily. zolpidem (AMBIEN) 5 mg tablet Take 5 mg by mouth at bedtime as needed. gabapentin(NEURONTIN 300 MG CAP) take 600 mg in AM, 300 mg @ dinner time, and 600 mg at bedtime duloxetine hcl(CYMBALTA 30 MG CAP) Take one(1) capsule daily. docusate sodium(STOOL SOFTENER 100 MG CAP) Take one(1) capsule twice daily. (Patient not taking: Reported on 05/31/2023) sennosides(VEGETABLE LAXATIVE 8.6 MG TAB) two tabs daily GARLIC 500 MG CAP one cap daily WARFARIN 6 MG TAB Take one tab daily FAMILY HISTORY Problem Relation Age of Onset other (depression [Other]) Sister other (depression [Other]) Mother other (depression [Other]) Brother other (htn [Other]) Father other (alcoholism [Other]) Father Heart Father Hypertension Father Diabetes Father Alcohol/Drug Father Social History Tobacco Use Smoking status: Former Tobacco comments: quit smoking in the 1950s Substance Use Topics Alcohol use: Yes Comment: a glass of wine at bedtime, occasional bourbon or beer Drug use: No REVIEW OF SYSTEMS: GENERAL: No weight loss, malaise or fevers RESPIRATORY: Negative for cough, hemoptysis, wheezing, COPD, dyspnea or shortness of breath CARDIOVASCULAR: Negative for chest pain, HTN, CHF or palpitations. Positive leg edema GI: No nausea, vomiting, or diarrhea. Positive colostomy MUSCULOSKELETAL: Negative for joint pain or swelling, back pain or muscle pain. Positive paraplegia. SKIN: Negative for lesions, rash, and itching. Positive ulcers, right ischium, sacral, bilat lower legs HEMATOLOGY/LYMPHOLOGY: Negative for prolonged bleeding, bruising easily or swollen nodes ENDOCRINE: Negative for cold or heat intolerance, polyuria, polydipsia and goiter NEURO: paraplegia Nutrition Diet:regular Supplement: Prostat, MVI Appetite: good PHYSICAL EXAM: BP 126/70 / Pulse 65 / Resp 18 / Temp 97.7 F / SpO2 97% General appearance: Well appearing, alert, in no acute distress, well-hydrated, well nourished. and wheelchair bound. Skin: Skin color, texture, turgor normal, no suspicious rashes or lesions. Positive ulcers, right ischium, sacral, bilat lower legs (see wound assessment) Head: Normocephalic, no masses, lesions, tenderness or abnormalities Eyes: Anicteric sclera. Pupils are equally round and reactive to light. Extraocular movements are intact. Lungs: normal respiratory rate and rhythm Heart: regular rate and rhythm Abdomen: soft, nontender. Colostomy appliance intact Extremities: Edema: no edema right lower leg, 4+ edema right foot, 3+ edema right ankle; 2+ edema left lower leg, 4+ edema left foot, 3+ edema left ankle Musculoskeletal: No joint swelling, deformity, or tenderness Peripheral pulses: triphasic DP doppler signals x 2. Biphasic PT doppler signals x 2 Neuro: Oriented X 3. Paraplegic. WOUND ASSESSMENT Wound 1: Location: right ischium Type: pressure injury Stage: Stage 3 Exposed structure:None Progress: no significant change Wound measurements (cm): 2.0 x 1.6 x 0.2 Full thickness- Yes Tunneling/undermining: none Wound tissue color: 50% pink/red and 50% slough Periwound tissue: dry and intact Drainage: serosanguinous, medium amount Drainage odor: none Wound 2: Location: left sacrum Type: pressure injury Stage: stage 2 Exposed structure:None Progress: improved Wound measurements (cm): 0.7 x 1.5 x 0.2 Full thickness- Yes Tunneling/undermining: none Wound tissue color: red Periwound tissue: dry and intact, scar tissue Drainage: serosanguinous, small to medium amount Drainage odor: none Wound 3: Location: right lateral lower leg Type: vascular Stage: n/a Exposed structure:None Progress: improved Wound measurements (cm): 8.1 x 1.8 x eschar Full thickness- Yes Tunneling/undermining: none Wound tissue color: unstable eschar Periwound tissue:dry and intact Drainage: none Drainage odor: n/a Wound 4: Location: left lateral lower leg Type: vascular Stage: n/a Exposed structure:None Progress: closed Wound measurements (cm): 0 Full thickness- Yes Tunneling/undermining: none Wound tissue color: epithelial Periwound tissue:dry and intact Drainage: none Drainage odor: n/a PROCEDURE: Sharp Excisional Debridement- right ischium A time out was performed immediately prior to procedure start with the SECURITY PATROL DRIVER and team , correctly identifying the patient name, date of , procedure, anatomy, patient position, safety precautions, and procedure-specific equipment needs. The procedure was explained to the patient including the risks, benefits and alternatives. The risks, including but not limited to infection and bleeding, were reviewed by the performing provider and the patient agrees to undergo the procedure. Written consent was obtained . With appropriate consent the wound was sharply debrided down to and including subcutaneous tissue Total tissue debrided Less than 20 sq.cm Using a sterile curette the wound was debrided. Patient required pre-medication: Lidogel 2% Patient expressed pain during procedure: no Scale: 0 EBL: none Wound measurement prior to debridement: 2.0 x 1.6 x 0.2 Wound measurement post debridement: 2.0 x 1.7 x 0.2 Type of tissue debrided: ( slough, necrotic, devitalized) Tissue at wound bed after debridment: 85% red, 15% slough Dressing applied after debridement: yes Patient tolerated procedure well without apparent complications. PROCEDURE: Sharp Excisional Debridement- right lateral lower leg A time out was performed immediately prior to procedure start with the SECURITY PATROL DRIVER and team , correctly identifying the patient name, date of , procedure, anatomy, patient position, safety precautions, and procedure-specific equipment needs. The procedure was explained to the patient including the risks, benefits and alternatives. The risks, including but not limited to infection and bleeding, were reviewed by the performing provider and the patient agrees to undergo the procedure. Written consent was obtained . With appropriate consent the wound was sharply debrided Total tissue debrided Less than 20 sq.cm Using a sterile curette, forceps, #15 scalpel, the wound was debrided. Patient required pre-medication: Lidocaine gel 2% Patient expressed pain during procedure: no Scale: 0 EBL: none Wound measurement prior to debridement: 8.1 x 1.8 x eschar Wound measurement post debridement: 8.5 x 2.0 x 0.2 Type of tissue debrided: ( slough, necrotic, devitalized) Tissue at wound bed after debridment: 70% slough, 10% red, 20% epithelial Dressing applied after debridement: yes Patient tolerated procedure well without apparent complications. DATA PHOTOGRAPHY: yes A photo was taken of the patient's wound(s). Photos can be found under the [facility] scanned docs tab on [facility]. The purpose of the photo(s) is to optimize the patient's medical care and allow a visual aid to their wound evaluation and progress. The photo(s) are not intended for publication, education, or research. If the use of the photo is desired in any additional way, other than for the above outlined purposes, then an additional consent for the intended use will need to be obtained by the requesting provider. Photo was taken of:right ischium, left sacrum, right lower leg Verbal consent was obtained: yes WBC (k/uL) Date Value 06/19/2023 7.98 Hemoglobin (g/dL) Date Value 06/19/2023 13.7 Sodium (mmol/L) Date Value 06/19/2023 140 11/02/2009 141 Potassium (mmol/L) Date Value 06/19/2023 4.3 11/02/2009 3.8 CO2 (mmol/L) Date Value 06/19/2023 27 11/02/2009 27 BUN (mg/dL) Date Value 06/19/2023 21 10/21/2015 20 11/02/2009 21 AST (U/L) Date Value 06/19/2023 154 11/02/2009 24 ALT (U/L) Date Value 06/19/2023 166 11/02/2009 36 Bilirubin, Total (mg/dL) Date Value 06/19/2023 0.4 11/02/2009 0.4 Alkaline Phosphatase (U/L) Date Value 06/19/2023 341 11/02/2009 109 MICROBIOLOGY: Reviewed; wound culture, sacral, right leg (06/19/2023)- few skin eric IMAGING: Reviewed IMPRESSION/RECOMMENDATIONS The patient's age, altered mobility, and other co morbidities are likely to impact wound and skin integrity Additional impediments to healing Diabetic: No Anticoagulation: Clopidogrel Antibiotics: Bactrim Steroids: No (L89.313) Pressure injury of right ischium, stage 3 (HCC) (L89.152) Pressure injury of sacral region, stage 2 (L97.911) Skin ulcer of right lower leg, limited to breakdown of skin (HCC) (L97.921) Skin ulcer of left lower leg, limited to breakdown of skin (HCC) Comment: Sacral and bilat LE wounds improved; left lower leg wound healed. Sacral wound now stageable. Right ischial wound stable. Plan: - Cleanse wounds and periwound skin with Vashe solution and gauze. Pat dry. Skin prep periwound. - Apply zinc oxide to right ischial periwound area. Apply MediHoney alginate to right ischial wound. Cover with [place] SAP dressing. Change dressing 3x/week and prn. - Apply zinc oxide cream to sacral wound. Cover with bordered foam dressing. Change 3x/week and prn. - Apply MediHoney gel and Adaptic to right lower leg wound. Cover with 4x4's, ABD and conform roll gauze. Change dressing 3x/week and prn. - Pad and protect right lateral ankle with ABD and conform roll gauze. Change 3x/week and prn. - Keep left lower leg RIAN; wound healed. - Vaseline to intact skin bilat LE - Single layer Tubi-child care coordinator bilat LE for compression/edema control - Turn/reposition frequently in bed - Frequent weight shifts when seated - Pressure reduction devices as needed ---ROHO chair cushion in place; DO NOT use donut cushion for pressure relief ---memory foam mattress topper in place - Limit sitting in chair ----try to lay down to completely offload wound twice a day - Continue aggressive nutritional support to assist wound healing - Follow up in wound center in 2 weeks I discussed the plan in detail with the patient and the patient verbalizes understanding and is in agreement. My previous progress note dated 07/17/2023 was copied forward, updated where appropriate, and reflective of current medical decision making today, 08/02/2023. Nima Tillman APRN, DARK ROOM ATTENDANT, CWS Certified Automobile Mechanic Apprentice= August 02, 2023 documented in this encounter [facility] 08-02-2023 Instructions Miranda Matute RN - 08/02/2023 1:14 PM EDT WOUND CARE INSTRUCTIONS- [facility] (Nurse Sue) FAX: [phone] or [phone] [facility] Wound location: Right Ischium Wash your hands with soap and water before and after wound care. Gather all supplies needed. Wash wound with Dial soap and water. Pat dry. Apply Vashe soak: apply Vashe moistened gauze to the wound and allow to soak for 5-10 minutes, then remove and pat dry. Apply Zinc/Barrier cream (Desetin) to around wound edges Cut a piece of Medihoney alginate, cut to fit size of the wound. Apply a piece of Calcium Alginate (felt material), cut to fit the size of the wound. Lay overtop of the honey alginate layer. Cover with 4x4 [place] SAP (silicone bordered bandage). Change your dressing 3 times per week and as needed to maintain a clean, dry, & intact dressing. Wound location: Left Sacrum Wash your hands with soap and water before and after wound care. Gather all supplies needed. Wash wound with Liquid Gold Antibacterial Dial soap and water. Pat dry with a paper towel (your body towel can introduce bacteria). Apply Vashe moistened gauze to the wound and allow to soak for 5-10 minutes, then remove and pat dry. Apply Zinc/Barrier cream (Desetin) to around wound edges. Cover with 4x4 [place] SAP (silicone bordered bandage). Change your dressing 3 times per week and as needed to maintain a clean, dry, & intact dressing. Right Lateral Lower Leg: Wash your hands with soap and water before and after wound care. Gather all supplies needed. Wash wound with Liquid Gold Antibacterial Dial soap and water. Pat dry with a paper towel (your body towel can introduce bacteria). Apply a nickel-thick layer of Medihoney gel to the wound bed. Cut a single layer piece of Adaptic (oily mesh), to fit size of wound, & apply to the wound. Cover with 4x4 gauze, ABD pad, conform gauze wrap, & secure with tape. Change your dressing 3 x weekly and as needed to maintain a clean, dry, & intact dressing. Apply single layer tubi child care coordinator size D to right and left legs from base of toes to 1 inch below the knee. Right lateral hip area of concern: reddened - Please pad/protect with a bordered foam dressing and change 3 times per week. Position changes every 2 hours - lay in recliner on your side, get into bed and lay on your sides, use pillow to help keep you off of the wound To give your wound the best chance to heal: - Eat three balanced meals daily focusing on the protein - Control swelling by elevating the extremity above your heart - Complete your wound care instructions - Vitamin C 500 mg twice daily - Multiple Vitamin Daily - Drink a protein shake daily Report any of the following changes [phone] or go to the Emergency Department: Fever or chills Increased drainage Green or yellow drainage Foul odor Increased pain Hardness around the wound Redness, warmth or swelling of the surrounding tissue Color change to the wound Evenings / Weekends / Holidays If you call the wound center at the phone number provided above, please leave a detailed message that includes your full name, birthday, and phone number. We are seeing patients during the day, so we will return your call within a 24-48 hr period in the order your call was received. There is not an on-call provider assigned to the wound center. If you have an emergency that needs to be addressed, please go to an Urgent Care or Emergency Room. Thank you for your cooperation and understanding. Plan: - Follow-up in the wound center with Nima Tillman CNP in 2 weeks. - Continue aggressive nutritional support for optimal wound healing. Nima Tillman CNP/ALBERTO/SAMMIE documented in this encounter [facility] 08-02-2023 Nurse Note Nursing Documentation- Harper Lift Transfer Pertinent Medical History: HTN, paraplegia due to syrinx of spinal cord, ostomy, chronic pain syndrome, disseminated nocardiosis (bacterial infection) and life-time need for Bactrim Wound Etiology according to patient: right butt wound for about a year, noticed it about a week after ostomy surgery Patient arrived via: motorized wheelchair with [employer] Mobile [employer] Home Care Company/Nursing Facility: [facility] (used to be [place]) Dr. [place] [facility] Consent captured for debridement per Keenan Ferris until 2023 Special Instructions: bed, will need harper unless accompanied by son who transfers him. 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) Provider seeing patient: Nima Tillman CNP WOUND ASSESSMENT: Refer to Provider's Wound Assessment Note VASCULAR ASSESSMENT BY PROVIDER: not assessed at 06/26/23 visit CHF History: denies EDEMA: Right foot: 4+ Right calf: None Right Ankle: 3+ Left foot: 4+ Left Ankle: 3+ Left Calf: 2+ MEASUREMENTS: in CM Right Calf: 26.9 Right Ankle: 21.2 Left Calf: 28.8 Left Ankle: 18.5 Length: 48.5 (Not Measured this Visit) WOUND PHOTOGRAPHY: Yes x 7 DEBRIDEMENT PROCEDURE BY PROVIDER: Anesthetic Used: 2% lidogel applied per Noni VMargarita home care companion #1 & 2 Other procedure: N/A Specimen collected: N/A WOUND TREATMENT PER MD ORDER: Wounds cleansed by mechanical debridement to allow provider to visualize wound base Roll patient to the left side to visualize all wounds WOUND #1 - LOCATION: Right Ischium (May 2022) L: 2.0 cm x W: 1.6 cm x D: 0.2 cm Debridement by Provider: SubQ Post Debridement Measurements: L: 2.0 cm x W: 1.7 cm x D: 0.2 cm Macerated circumferential Cleansed with: Vashe Applied to renée-wound skin: Skin prep & Zinc oxide cream Applied to wound bed: Medihoney Alginate Covered and secured with: 4x4 [place] SAP WOUND # 2 - LOCATION: Left Sacrum (New 06/19/23) L: 0.7 cm x W: 1.5 cm x D: 0.2 cm - partially epithelialized DEBRIDEMENT by provider: N/A Red and blanchable Cleansed with: Vashe Applied to renée-wound skin: Skin prep Applied to wound bed: Zinc oxide cream Covered and secured with: Patient's own bandage WOUND # 3 - LOCATION: Right lateral Lower Leg (New 06/19/23) L: 8.1 cm x W: 1.8 cm x D: Eschar DEBRIDEMENT by provider: SubQ Post Debridement Measurements: L: 8.5 cm x W: 2.0 cm x D: 0.2 cm - Eschar removed Cleansed with: NS Applied to renée-wound skin: Betadine & Vaseline Applied to wound bed: Adaptic, 4x4 gauze, & ABD Covered and secured with: Conform & tape. WOUND # 4 - LOCATION: Left Lateral Lower Leg (New 06/19/23) CLOSED 08/02/23 DEBRIDEMENT by provider: N/A Cleansed with: N/A Applied to renée-wound skin: Vaseline Applied to wound bed: Vaseline Covered and secured with: N/A Area of concern: Multiple scattered DTI Left Buttocks - resolved Area of Concern: Left Medial Lower Leg - erythematous on 06/26/23, now an intact blood blister on 07/03/23 - padded and protected Area of concern: right mid back flat blood blisters- scabbed 07/03/23 07/03/23: Area of Concern: right hip red, blanchable - [place] SAP 4x4 Area of Concern: Right Lateral Ankle (New 07/17/23) Selective, epithelialized closed post Debridement COMPRESSION: Single layer tubi-child care coordinator size D to BLE SPECIAL NEEDS: Coordination of care - AVS sent to [facility] Emotional support N/A OR set-up N/A Physician Vice President N/A Incontinence needs N/A DISCHARGED in stable condition to: Home via wheelchair with Global surgical period dates if applicable: N/A Plan: Follow-up in the wound center with Nima in 2 weeks: Continue aggressive nutritional support for optimal wound healing EDUCATION: The patient/family was instructed how to cleanse the wound(s). Visual demonstration on how to apply the dressing with teach back method. Signs & symptoms of infection were reviewed: Increased redness, swelling, pain, green/yellow drainage, fever and/or chills would all need to be evaluated by a Physician. Patient received typed home-going wound care instructions and has expressed intent to comply. OTHER EDUCATION: Nima discussed wound progress & new wound care; the need for off-loading the right hip as well; discussed CT scan scheduled tomorrow at [place]; patient to follow-up here in 2 weeks. Education performed regarding lymphedema/edema: Elevation of extremity above the heart for 30 minutes three times daily and as needed Exercise such as writing the ABC's with your toes in the air, walking and/or calf pumps Wearing compression as ordered by provider Diet controlling of sodium as instructed by provider Use of medication to help control edema. UNIVERSAL PROTOCOL / SAFETY CHECKLIST Procedure to be Performed: Sharp debridement buttock & leg wounds Sign In: 1345 A Moment of CARE was completed. Personnel directly involved with the procedure wore the appropriate PPE (Personal Protective Equipment). Patient/Surrogate Stated/Verified: PATIENT VERIFIED(optional for EMERGENT procedures): Patient name, Date of , Relevant allergies, and The intended procedure Time Out Communication: 1403 Intended patient and procedure match the source documents. Consent documented and matches the intended procedure. Sign Out: 1402 SIGN OUT (optional for EMERGENT procedures): No specimen collected. Current HBOT Status: Active or Complete - see screening below WOUND CENTER HYPERBARIC OXYGEN THERAPY SCREENING 1. Is the patient diabetic? (If No, skip to question 5) No 5. Has the patient been diagnosed with osteomyelitis? No 6. Has the patient had a previous skin graft or flap at the wound? No 7. Has the patient had or been offered vascular intervention/evaluation? No 8. Does the patient have a wound at an amputation site? No 9. Has the patient had radiation therapy at the site of the problem? No If Yes to ANY of questions 5-9, consult the [facility] Miranda Matute RN/SV documented in this encounter [facility] 07-17-2023 Note HNO ID: [id number] Author: Nima Tillman APRN.DARK ROOM ATTENDANT Service: ? 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 He is accompanied by his for the clinic visit today. He has assistance of [facility] at home now 3x/week for wound care at present. He completed the course of Doxycycline for the wounds. Pt continues on Ciprofloxacin per PCP for a UTI. S/p CT pelvis on 07/04/2023; No drainable fluid collection or gas. No destructive osseous lesion. Location: right ischium, bilat lower legs Onset: May 2022 Aggravating factors: Immobility, Positioning, and Pressure Wound etiology: Pressure Associated pain with wound: No Relieving factors for wound pain: n/a Treatments: Current: sacral-MediHoney, calcium alginate; right ischial-Promogran, calcium alginate; bilat LE- betadine Past: Hydrofera blue PAST MEDICAL HISTORY Diagnosis Date Bacterial meningitis e-coli Dyslipidemia Hypertension Myelopathy (HCC) Nocardia infection chronic Bactrim therapy Seizures (HCC) controlled on Neurontin Sleep apnea Subarachnoid hemorrhage (HCC) Syringomyelia (HCC) cervical and thoracic PAST SURGICAL HISTORY Procedure Laterality Date APPENDECTOMY HX 56 ARTHRP KNE CONDYLEANDPLATU MEDIALANDLAT COMPARTMENTS 00 Knee replacement, total Rt HERNIA REPAIR HX 94 Rt inguinal IANDD ABSC; COMPL OR MULTI 2005 lt leg IANDD ABSC; SMPL OR SGL 2005 Rt forearm KNEE ARTHROSCOP MENISCUS REPAIR MED/LAT 79, 80, 82, 84, 93 Rt knee LAMINECT 1 SEGMT UNI/REAL EA ADD 07, 08 C7 T1 PAST SURGICAL HISTORY OF drainage of SAH PAST SURGICAL HISTORY OF TUFTER HAND shunt placement PAST SURGICAL HISTORY OF SVC and IVC filter PAST SURGICAL HISTORY OF C7 synringo-subarachnoid shunt PAST SURGICAL HISTORY OF T1 shunt placement PAST SURGICAL HISTORY OF 06? bilateral cataract surgery REVSC OPN/PRQ TIB/GARTH W/ANGIOPLASTY UNI 02-05-14 ROTATOR CUFF REPAIR 97 Rt SHOULDER ARTHROSCOPY/SURGERY 87,96 lt TRURL ELECTROSURG RESCJ PROSTATE BLEED COMPLETE 96 ALLERGIES ALLERGIES Allergen Reactions Cephlasporins [Ceph* Shortness of Breath Cephalexin Shortness of Breath Contrast Dye Hives CT contrast dye Heparin Other: See Comments Bleeds too easily Penicillins Rash, Itching CURRENT OUTPATIENT MEDICATIONS ciprofloxacin HCl (CIPRO ORAL) Take 1 tablet by mouth twice daily. topiramate (TOPAMAX) 50 mg tablet TAKE 1 TAB IN AM AND ONE AT BEDTIME X1 WEEK THEN 1 TAB IN AM AND TWO TABS AT BEDTIME clopidogrel (PLAVIX) 75 mg tablet Take 75 mg by mouth once daily. GABAPENTIN, BULK, MISC 300 mg daily at bedtime. 300mg in AM and 2 capsules (600mg) at bedtime ISOSORBIDE ORAL Take 10 mg by mouth once daily. ascorbic acid, vitamin C, (VITAMIN C) 500 mg tablet Take 500 mg by mouth twice daily. acetaminophen/diphenhydramine (TYLENOL PM ORAL) Take 1 tablet by mouth daily at bedtime. traZODone (DESYREL) 50 mg tablet Take 50 mg by mouth daily at bedtime. Take 1.5 tablets at bedtime for sleep tamsulosin (FLOMAX) 0.4 mg Take 0.4 mg by mouth once daily. methadone HCl (METHADONE ORAL) Take 5 mg by mouth once daily. Take 1.5 tablets AM, 1.5 tablets PM AND 3 tablets bedtime lithium carbonate (ESKALITH) 150 mg capsule Take 150 mg by mouth once daily. Take 3 capsules daily for pain/spasms levothyroxine 50 mcg cap Take 50 mcg by mouth daily before breakfast. cyclobenzaprine HCl (FLEXERIL ORAL) Take 5 mg by mouth once daily. For muscle relaxation and spasms phenazopyridine HCl (AZO-TABS ORAL) Take 2 capsules by mouth once daily. atorvastatin (LIPITOR) 40 mg tablet Take 40 mg by mouth once daily. pollen extracts (PROSTAT ORAL) Take 1 Packet by mouth twice daily. losartan-hydrochlorothiazide 50-12.5 mg per tablet Take 1 tablet by mouth once daily. 12.5mg carvedilol (COREG) 3.125 mg tablet Take 3.125 mg by mouth once daily. pyridoxine, vitamin B6, (VITAMIN B6) 100 mg tablet Take 100 mg by mouth once daily. MAGNESIUM OXIDE ORAL Take 250 mg by mouth twice daily. Take 2 tablets twice a day FUROSEMIDE 40 MG TAB Take one(1) tablet daily. sulfamethoxazole/trimethoprim(BA CTRIM DS 160 MG-800 MG TAB) Take one(1) tablet daily multivitamins(DAILY MULTIVITAMIN TAB) Take one(1) tablet daily. doxycycline (VIBRA-TABS) 100 mg tablet Take 1 tablet by mouth every 12 hours 6am/6 (more content not included)... [facility] 07-04-2023 Note HNO ID: [id number] Author: Jaqueline Nix RT(R) Service: ? Author Type: Obstetrics Gynecology Md Type: Progress Notes Filed: 07/04/2023 1:55 PM Note Text: Radiology Service Progress Note PATIENT NAME: Skyler Rojas DATE OF SERVICE: July 04, 2023 TIME: 1:55 PM PATIENT IDENTITY VERIFICATION COMPLETED USING TWO (2) IDENTIFIERS: Name and Date of confirmed by patient verbally. FALL SCREENING: Has the patient had 2 falls in the last year or 1 fall with injury or currently using an Ambulatory Assistive Device (Walker, Cane, Wheelchair, Crutches, etc.)? No PATIENT GENDER DATA: Male PATIENT RELEVANT IMPLANT DATA REVIEWED: Yes RADIOLOGY DEPARTMENT: CT; Exam(s) Completed: Pelvis PERIPHERAL IV DATA: Not applicable SIGNED BY: RT Linda(R) July 04, 2023 1:55 PM [facility] 07-03-2023 Note HNO ID: [id number] Author: Nima Tillman APRN.DARK ROOM ATTENDANT Service: ? 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 He is accompanied by his for the clinic visit today. He has assistance of [facility] at home now 3x/week for wound care at present. CT pelvis ordered last visit scheduled for 07/04/2023. He continues on the course of Doxycycline for the wounds. Per pt, he is to start a course of Ciprofloxacin as well for UTI. Location: right ischium, bilat lower legs Onset: May 2022 Aggravating factors: Immobility, Positioning, and Pressure Wound etiology: Pressure Associated pain with wound: No Relieving factors for wound pain: n/a Treatments: Current: sacral-silver alginate; right ischial-Promogran; bilat LE- betadine Past: Hydrofera blue PAST MEDICAL HISTORY Diagnosis Date Bacterial meningitis e-coli Dyslipidemia Hypertension Myelopathy (HCC) Nocardia infection chronic Bactrim therapy Seizures (HCC) controlled on Neurontin Sleep apnea Subarachnoid hemorrhage (HCC) Syringomyelia (HCC) cervical and thoracic PAST SURGICAL HISTORY Procedure Laterality Date APPENDECTOMY HX 56 ARTHRP KNE CONDYLEANDPLATU MEDIALANDLAT COMPARTMENTS 00 Knee replacement, total Rt HERNIA REPAIR HX 94 Rt inguinal IANDD ABSC; COMPL OR MULTI 2006 lt leg IANDD ABSC; SMPL OR SGL 2006 Rt forearm KNEE ARTHROSCOP MENISCUS REPAIR MED/LAT 79, 80, 82, 84, 93 Rt knee LAMINECT 1 SEGMT UNI/REAL EA ADD 07, 08 C7 T1 PAST SURGICAL HISTORY OF drainage of SAH PAST SURGICAL HISTORY OF TUFTER HAND shunt placement PAST SURGICAL HISTORY OF SVC and IVC filter PAST SURGICAL HISTORY OF C7 synringo-subarachnoid shunt PAST SURGICAL HISTORY OF T1 shunt placement PAST SURGICAL HISTORY OF 06? bilateral cataract surgery REVSC OPN/PRQ TIB/GARTH W/ANGIOPLASTY UNI 02-05-14 ROTATOR CUFF REPAIR 97 Rt SHOULDER ARTHROSCOPY/SURGERY 87,96 lt TRURL ELECTROSURG RESCJ PROSTATE BLEED COMPLETE 96 ALLERGIES ALLERGIES Allergen Reactions Cephlasporins [Ceph* Shortness of Breath Cephalexin Shortness of Breath Contrast Dye Hives CT contrast dye Heparin Other: See Comments Bleeds too easily Penicillins Rash, Itching CURRENT OUTPATIENT MEDICATIONS doxycycline (VIBRA-TABS) 100 mg tablet Take 1 tablet by mouth every 12 hours 6am/6pm. topiramate (TOPAMAX) 50 mg tablet TAKE 1 TAB IN AM AND ONE AT BEDTIME X1 WEEK THEN 1 TAB IN AM AND TWO TABS AT BEDTIME gentamicin 0.1 % ointment Apply to right buttock wound with each dressing change as directed (Patient not taking: Reported on 06/26/2023) clopidogrel (PLAVIX) 75 mg tablet Take 75 mg by mouth once daily. GABAPENTIN, BULK, MISC 600 mg daily at bedtime. ISOSORBIDE ORAL Take 10 mg by mouth once daily. ascorbic acid, vitamin C, (VITAMIN C) 500 mg tablet Take 500 mg by mouth twice daily. acetaminophen/diphenhydramine (TYLENOL PM ORAL) Take 1 tablet by mouth daily at bedtime. traZODone (DESYREL) 50 mg tablet Take 50 mg by mouth daily at bedtime. Take 1.5 tablets at bedtime for sleep tamsulosin (FLOMAX) 0.4 mg Take 0.4 mg by mouth once daily. methadone HCl (METHADONE ORAL) Take 5 mg by mouth once daily. Take 1.5 tablets AM, 1.5 tablets PM AND 3 tablets bedtime lithium carbonate (ESKALITH) 150 mg capsule Take 150 mg by mouth once daily. Take 3 capsules daily for pain/spasms levothyroxine 50 mcg cap Take 50 mcg by mouth daily before breakfast. cyclobenzaprine HCl (FLEXERIL ORAL) Take 5 mg by mouth once daily. For muscle relaxation and spasms phenazopyridine HCl (AZO-TABS ORAL) Take 2 capsules by mouth once daily. atorvastatin (LIPITOR) 40 mg tablet Take 40 mg by mouth once daily. pollen extracts (PROSTAT ORAL) Take 1 Packet by mouth twice daily. hydrocortisone (CORTEF) 20 mg tablet Take 20 mg by mouth once daily. metFORMIN (GLUCOPHAGE) 500 mg tablet Take 500 mg by mouth twice daily with meals. RANITIDINE HCL ORAL Take by mouth. topiramate (TOPAMAX) 25 mg tablet Take 1 tab twice daily x2 weeks and then increase to 2 tabs twice daily and continue. (Patient taking differently: Take 1 tab twice daily x2 weeks and then increase to 2 tabs twice daily and continue. Then increase to 3 tablets per day.) losartan-hydrochlorothiazide 50-12.5 mg per tablet Take 1 tablet by mouth once daily. 12.5mg car (more content not included)... [facility] 07-03-2023 Instructions Tammy Urena RN - 07/03/2023 11:54 AM EDT WOUND CARE INSTRUCTIONS- Skyler Rojas [facility] (Nurse Rogers) FAX: [phone] or [phone] Wound location: Right ischium 1. Wash your hands with soap and water before and after wound care. 2. Gather all supplies needed. 3. Wash wound with Dial soap and water. Pat dry. Apply Vashe soak: apply Vashe moistened gauze to the wound and allow to soak for 5-10 minutes, then remove and pat dry. 4. Apply saline moistned Promogran to the wound bed followed by calcium alginate 5. Cover with [place] SAP (silicone bordered bandage) 4x4 6. Change your dressing 3 times per week and as needed to maintain clean dry dressing. Wound location: Left Sacrum 1. Wash your hands with soap and water before and after wound care. 2. Gather all supplies needed. 3. Wash wound with Dial soap and water. Pat dry. Apply Vashe soak: apply Vashe moistened gauze to the wound and allow to soak for 5-10 minutes, then remove and pat dry. 4. Apply Medihoney gel to a piece of silver alginate & apply to the wound bed. 5. Cover with [place] SAP (silicone bordered bandage) 6x7 6. Change your dressing 3 times per week and as needed to maintain clean dry dressin Left & Right Lateral lower Legs : 1. Wash your hands with soap and water before and after wound care. 2. Gather all supplies needed. 3. Wash wounds with Dial soap and water. Pat dry. 4. [place] the wounds and scabbed areas with Betadine and allow to dry 5. Cover with 4x4 gauze, ABD, conform, tape. 6. Change your dressing 3 x weekly and as needed to maintain clean dry dressing. 7. Apply single layer tubi child care coordinator size D to right and left legs from base of toes to 1 inch below the knee. Right lateral hip area of concern: reddened - Please pad/protect with a bordered foam dressing and change 3 times per week. Position changes every 2 hours - lay in recliner on your side, get into bed and lay on your sides, use pillow to help keep you off of the wound To give your wound the best chance to heal: - Eat three balanced meals daily focusing on the protein - Control swelling by elevating the extremity above your heart - Complete your wound care instructions - Vitamin C 500 mg twice daily - Multiple Vitamin Daily - Drink a protein shake daily Report any of the following changes [phone] or go to the Emergency Department: Fever or chills Increased drainage Green or yellow drainage Foul odor Increased pain Hardness around the wound Redness, warmth or swelling of the surrounding tissue Color change to the wound Plan: Follow-up in the wound center with Nima in 2 weeks: 07/17/23 Continue aggressive nutritional support for optimal wound healing Complete Doxycycline as previously prescribed. CT scan of the pelvis scheduled for 07/04/23 @ [place] [facility] [phone] Do not use donut for pressure relief. Stay off your buttocks and continue to offload to prevent pressure on wounds. Rotate side to side to prevent pressure using pillows behind back. You can use pillows between legs and under legs (above the wounds) to keep pressure off the leg wounds when Skyler is on his side. The legs should be almost like floating so there is no pressure on them Nima Tillman CNP/alex/nh/sp documented in this encounter [facility] 07-03-2023 Nurse Note Nursing Documentation- Harper Lift Transfer Pertinent Medical History: HTN, paraplegia due to syrinx of spinal cord, ostomy, chronic pain syndrome, disseminated nocardiosis (bacterial infection) and life-time need for Bactrim Wound Etiology according to patient: right butt wound for about a year, noticed it about a week after ostomy surgery Patient arrived via: motorized wheelchair with [employer] Home Care Company/Nursing Facility: [facility] (used to be [facility]) FAX: [phone] Consent captured for debridement per Nima Tillman CNP and april until 2023 Special Instructions: bed (son: Zac transfers patient to bed) HARPER used 07/03/23 Anticoagulant Therapy: Plavix Living Situation: house Who lives with patient: : Mary Who will be performing wound care: and home care nurse Available Support System: family In-Home Assist Devices: wheelchair, [id number] device for transfers 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) Provider seeing patient: Nima Tillman CNP WOUND ASSESSMENT: Refer to Provider's Wound Assessment Note VASCULAR ASSESSMENT BY PROVIDER: not assessed at 06/26/23 visit CHF History: denies EDEMA: Right foot: 3+ Right calf: 1+ Right Ankle: 2+ Left foot : 3+ Left Ankle: 2+ Left Calf: 2+ Other: n/a MEASUREMENTS: in CM Right Calf: 27.0 Right Ankle: 20.5 Left Calf: 31.0 Left Ankle: 24.0 Length: 48.5 WOUND PHOTOGRAPHY: YES x 5 DEBRIDEMENT PROCEDURE BY PROVIDER: Anesthetic Used: 2% lidogel applied per Jefferson Lester RN Wound #1 & 2 Other procedure: N/A Specimen collected: n/a WOUND TREATMENT PER MD ORDER: Wounds cleansed by mechanical debridement to allow provider to visualize wound base Roll patient to the left side to visualize all wounds WOUND #1 LOCATION: Right ischium (May 2022) L: 1.5 cm x W: 1.5 cm x D: 0.1cm Debridement by Provider: Post Debridement Measurements: L:1.5 cm x W: 1.5 cm x D: 0.1 cm Macerated circumferential Cleansed with: Vashe Applied to renée-wound skin: Gentian tiffany, skin prep Applied to wound bed: Promogran & calcium alginate Covered and secured with: [place] SAP 4x4 Other: n/a WOUND # 2 LOCATION: Left Sacrum (New 06/19/23) L: 6.0 cm x W: 8.0 cm x D: 0.1 cm DEBRIDEMENT by provider: SQ 20% = 24.0cm2 Post debridement measurements: L: 6.0 cm x W: 8.0 cm x D: 0.1 cm Red and blanchable Cleansed with: Vashe Applied to renée-wound skin: skin prep Applied to wound bed: Medihoney gel, calcium alginate Covered and secured with: [place] SAP 6x7 Other: n/a WOUND # 3 LOCATION: Right lateral Lower Leg (New 06/19/23) L: 9.0 cm x W: 4.2 cm x D: scab/eschar cm DEBRIDEMENT by provider: N/A WOUND # 4 LOCATION: Left Lateral Lower Leg (New 06/19/23) L: 2.0 cm x W: 0.9 cm x D: 0.1 with island of epithelialization DEBRIDEMENT by provider: N/A Cleansed with: NS Applied to renée-wound skin: Betadine, Vaseline Applied to wound bed: 4x4 gauze, ABD Covered and secured with: conform, tape. Other: n/a Area of concern: Multiple scattered DTI Left Buttocks - resolved Area of Concern: Left Medial Lower Leg - erythematous on 06/26/23, now an intact blood blister on 07/03/23 - padded and protected Area of concern: right mid back flat blood blisters- scabbed 07/03/23 07/03/23: Area of Concern: right hip red, blanchable - [place] SAP 4x4 COMPRESSION: Single layer tubi-child care coordinator size D to BLE SPECIAL NEEDS: Coordination of care AVS faxed to to [facility] Emotional support N/A OR set-up N/A Physician Vice President N/A Incontinence needs N/A DISCHARGED in stable condition to: home via wheelchair with Global surgical period dates if applicable: N/A Plan: Follow-up in the wound center with Nima in 2 weeks: 07/17/23 Continue aggressive nutritional support for optimal wound healing Complete Doxycycline as previously prescribed. CT scan of the pelvis scheduled for 07/04/23 @ [place] [facility] [phone] Do not use donut for pressure relief. Stay off your buttocks and continue to offload to prevent pressure on wounds. Rotate side to side to prevent pressure using pillows behind back. You can use pillows between legs and under legs (above the wounds) to keep pressure off the leg wounds when Skyler is on his side. The legs should be almost like floating so there is no pressure on them EDUCATION: The patient/family was instructed how to cleanse the wound(s). Visual demonstration on how to apply the dressing with teach back method. Signs & symptoms of infection were reviewed: Increased redness, swelling, pain, green/yellow drainage, fever and/or chills would all need to be evaluated by a Physician. Patient received typed home-going wound care instructions and has expressed intent to comply. OTHER EDUCATION: Nima discussed wound progress & new wound care; the need for off-loading the right hip as well; discussed CT scan scheduled tomorrow at [place]; patient to follow-up here in 2 weeks. Education performed regarding lymphedema/edema: Elevation of extremity above the heart for 30 minutes three times daily and as needed Exercise such as writing the ABC's with your toes in the air, walking and/or calf pumps Wearing compression as ordered by provider Diet controlling of sodium as instructed by provider Use of medication to help control edema. UNIVERSAL PROTOCOL / SAFETY CHECKLIST Procedure to be Performed: sharp debridement buttock wounds Sign In: 1213 A Moment of CARE was completed. Personnel directly involved with the procedure wore the appropriate PPE (Personal Protective Equipment). Patient/Surrogate Stated/Verified: PATIENT VERIFIED(optional for EMERGENT procedures): Patient name, Date of , Relevant allergies, and The intended procedure Time Out Communication: 1213 Intended patient and procedure match the source documents. Consent documented and matches the intended procedure. Sign Out: 1220 SIGN OUT (optional for EMERGENT procedures): No specimen collected. Tammy Urena RN/car/sp/guerline/keyonna Current HBOT Status: Active or Complete - see screening below WOUND CENTER HYPERBARIC OXYGEN THERAPY SCREENING 1. Is the patient diabetic? (If No, skip to question 5) No 5. Has the patient been diagnosed with osteomyelitis? No 6. Has the patient had a previous skin graft or flap at the wound? No 7. Has the patient had or been offered vascular intervention/evaluation? No 8. Does the patient have a wound at an amputation site? No 9. Has the patient had radiation therapy at the site of the problem? No If Yes to ANY of questions 5-9, consult the [facility] Tammy Urena RN/car/sp documented in this encounter [facility] 07-03-2023 History of Presen t illness Narrative Images from the original note were not included. 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 He is accompanied by his for the clinic visit today. He has assistance of [facility] at home now 3x/week for wound care at present. CT pelvis ordered last visit scheduled for 07/04/2023. He continues on the course of Doxycycline for the wounds. Per pt, he is to start a course of Ciprofloxacin as well for UTI. Location: right ischium, bilat lower legs Onset: May 2022 Aggravating factors: Immobility, Positioning, and Pressure Wound etiology: Pressure Associated pain with wound: No Relieving factors for wound pain: n/a Treatments: Current: sacral-silver alginate; right ischial-Promogran; bilat LE- betadine Past: Hydrofera blue PAST MEDICAL HISTORY Diagnosis Date Bacterial meningitis e-coli Dyslipidemia Hypertension Myelopathy (HCC) Nocardia infection chronic Bactrim therapy Seizures (HCC) controlled on Neurontin Sleep apnea Subarachnoid hemorrhage (HCC) Syringomyelia (HCC) cervical and thoracic PAST SURGICAL HISTORY Procedure Laterality Date APPENDECTOMY HX 56 ARTHRP KNE CONDYLE&PLATU MEDIAL&LAT COMPARTMENTS 00 Knee replacement, total Rt HERNIA REPAIR HX 94 Rt inguinal I&D ABSC; COMPL OR MULTI 2006 lt leg I&D ABSC; SMPL OR SGL 2006 Rt forearm KNEE ARTHROSCOP MENISCUS REPAIR MED/LAT 79, 80, 82, 84, 93 Rt knee LAMINECT 1 SEGMT UNI/REAL EA ADD 07, 08 C7 T1 PAST SURGICAL HISTORY OF drainage of SAH PAST SURGICAL HISTORY OF TUFTER HAND shunt placement PAST SURGICAL HISTORY OF SVC and IVC filter PAST SURGICAL HISTORY OF C7 synringo-subarachnoid shunt PAST SURGICAL HISTORY OF T1 shunt placement PAST SURGICAL HISTORY OF 06? bilateral cataract surgery REVSC OPN/PRQ TIB/GARTH W/ANGIOPLASTY UNI 02-05-14 ROTATOR CUFF REPAIR 97 Rt SHOULDER ARTHROSCOPY/SURGERY 87,96 lt TRURL ELECTROSURG RESCJ PROSTATE BLEED COMPLETE 96 ALLERGIES ALLERGIES Allergen Reactions Cephlasporins [Ceph* Shortness of Breath Cephalexin Shortness of Breath Contrast Dye Hives CT contrast dye Heparin Other: See Comments Bleeds too easily Penicillins Rash, Itching CURRENT OUTPATIENT MEDICATIONS doxycycline (VIBRA-TABS) 100 mg tablet Take 1 tablet by mouth every 12 hours 6am/6pm. topiramate (TOPAMAX) 50 mg tablet TAKE 1 TAB IN AM AND ONE AT BEDTIME X1 WEEK THEN 1 TAB IN AM AND TWO TABS AT BEDTIME gentamicin 0.1 % ointment Apply to right buttock wound with each dressing change as directed (Patient not taking: Reported on 06/26/2023) clopidogrel (PLAVIX) 75 mg tablet Take 75 mg by mouth once daily. GABAPENTIN, BULK, MISC 600 mg daily at bedtime. ISOSORBIDE ORAL Take 10 mg by mouth once daily. ascorbic acid, vitamin C, (VITAMIN C) 500 mg tablet Take 500 mg by mouth twice daily. acetaminophen/diphenhydramine (TYLENOL PM ORAL) Take 1 tablet by mouth daily at bedtime. traZODone (DESYREL) 50 mg tablet Take 50 mg by mouth daily at bedtime. Take 1.5 tablets at bedtime for sleep tamsulosin (FLOMAX) 0.4 mg Take 0.4 mg by mouth once daily. methadone HCl (METHADONE ORAL) Take 5 mg by mouth once daily. Take 1.5 tablets AM, 1.5 tablets PM & 3 tablets bedtime lithium carbonate (ESKALITH) 150 mg capsule Take 150 mg by mouth once daily. Take 3 capsules daily for pain/spasms levothyroxine 50 mcg cap Take 50 mcg by mouth daily before breakfast. cyclobenzaprine HCl (FLEXERIL ORAL) Take 5 mg by mouth once daily. For muscle relaxation and spasms phenazopyridine HCl (AZO-TABS ORAL) Take 2 capsules by mouth once daily. atorvastatin (LIPITOR) 40 mg tablet Take 40 mg by mouth once daily. pollen extracts (PROSTAT ORAL) Take 1 Packet by mouth twice daily. hydrocortisone (CORTEF) 20 mg tablet Take 20 mg by mouth once daily. metFORMIN (GLUCOPHAGE) 500 mg tablet Take 500 mg by mouth twice daily with meals. RANITIDINE HCL ORAL Take by mouth. topiramate (TOPAMAX) 25 mg tablet Take 1 tab twice daily x2 weeks and then increase to 2 tabs twice daily and continue. (Patient taking differently: Take 1 tab twice daily x2 weeks and then increase to 2 tabs twice daily and continue. Then increase to 3 tablets per day.) losartan-hydrochlorothiazide 50-12.5 mg per tablet Take 1 tablet by mouth once daily. 12.5mg carvedilol (COREG) 3.125 mg tablet Take 3.125 mg by mouth once daily. HYDROcodone-Acetaminophen 10-325 mg per tablet Take 1 tablet by mouth twice daily. morphine SR (ORAMORPH SR) 15 mg 12 hr tablet Take 15 mg by mouth twice daily. zolpidem (AMBIEN) 5 mg tablet Take 5 mg by mouth at bedtime as needed. pyridoxine, vitamin B6, (VITAMIN B6) 100 mg tablet Take 100 mg by mouth once daily. MAGNESIUM OXIDE ORAL Take by mouth. gabapentin(NEURONTIN 300 MG CAP) take 600 mg in AM, 300 mg @ dinner time, and 600 mg at bedtime duloxetine hcl(CYMBALTA 30 MG CAP) Take one(1) capsule daily. FUROSEMIDE 40 MG TAB Take one(1) tablet daily. sulfamethoxazole/trimethoprim(BA CTRIM DS 160 MG-800 MG TAB) Take one(1) tablet daily docusate sodium(STOOL SOFTENER 100 MG CAP) Take one(1) capsule twice daily. (Patient not taking: Reported on 05/31/2023) sennosides(VEGETABLE LAXATIVE 8.6 MG TAB) two tabs daily multivitamins(DAILY MULTIVITAMIN TAB) Take one(1) tablet daily. GARLIC 500 MG CAP one cap daily WARFARIN 6 MG TAB Take one tab daily FAMILY HISTORY Problem Relation Age of Onset other (depression [Other]) Sister other (depression [Other]) Mother other (depression [Other]) Brother other (htn [Other]) Father other (alcoholism [Other]) Father Heart Father Hypertension Father Diabetes Father Alcohol/Drug Father Social History Tobacco Use Smoking status: Former Tobacco comments: quit smoking in the 1950s Substance Use Topics Alcohol use: Yes Comment: a glass of wine at bedtime, occasional bourbon or beer Drug use: No REVIEW OF SYSTEMS: GENERAL: No weight loss, malaise or fevers RESPIRATORY: Negative for cough, hemoptysis, wheezing, COPD, dyspnea or shortness of breath CARDIOVASCULAR: Negative for chest pain, HTN, CHF or palpitations. Positive leg edema GI: No nausea, vomiting, or diarrhea. Positive colostomy MUSCULOSKELETAL: Negative for joint pain or swelling, back pain or muscle pain. Positive paraplegia. SKIN: Negative for lesions, rash, and itching. Positive ulcers, right ischium, sacral, bilat lower legs HEMATOLOGY/LYMPHOLOGY: Negative for prolonged bleeding, bruising easily or swollen nodes ENDOCRINE: Negative for cold or heat intolerance, polyuria, polydipsia and goiter NEURO: paraplegia Nutrition Diet:regular Supplement: Prostat, MVI Appetite: good PHYSICAL EXAM: BP 153/70 / Pulse 63 / Resp 12 / Temp 97.6 F / SpO2 97% General appearance: Well appearing, alert, in no acute distress, well-hydrated, well nourished. and wheelchair bound. Skin: Skin color, texture, turgor normal, no suspicious rashes or lesions. Positive ulcers, right ischium, sacral, bilat lower legs (see wound assessment) Head: Normocephalic, no masses, lesions, tenderness or abnormalities Eyes: Anicteric sclera. Pupils are equally round and reactive to light. Extraocular movements are intact. Lungs: normal respiratory rate and rhythm Heart: regular rate and rhythm Abdomen: soft, nontender. Colostomy appliance intact Extremities: Edema: 1+ edema right lower leg, 3+ edema right foot, 2+ edema right ankle; 2+ edema left lower leg, 3+ edema left foot, 2+ edema left ankle Musculoskeletal: No joint swelling, deformity, or tenderness Peripheral pulses: triphasic DP doppler signals x 2. Biphasic PT doppler signals x 2 Neuro: Oriented X 3. Paraplegic. WOUND ASSESSMENT Wound 1: Location: right ischium Type: pressure injury Stage: Stage 3 Exposed structure:None Progress: improved Wound measurements (cm): 1.5 x 1.5 x 0.1 Full thickness- Yes Tunneling/undermining: none Wound tissue color: 90% pink and 10% slough Periwound tissue: mild maceration Drainage: serosanguinous, medium amount Drainage odor: none Wound 2: Location: left sacrum Type: pressure injury Stage: unstageable Exposed structure:None Progress: improved Wound measurements (cm): 6.0 x 8.0 x 0.1 Full thickness- Yes Tunneling/undermining: none Wound tissue color: 90% slough, 10% pink Periwound tissue: mild induration, improved Drainage: serosanguinous, medium amount Drainage odor: none Wound 3: Location: right lateral lower leg Type: vascular Stage: n/a Exposed structure:None Progress: improved Wound measurements (cm): 9.0 x 4.2 x scab Full thickness- Yes Tunneling/undermining: none Wound tissue color: eschar Periwound tissue:dry and intact Drainage: serosanguinous, scant Drainage odor: none Wound 4: Location: left lateral lower leg Type: vascular Stage: n/a Exposed structure:None Progress: improved Wound measurements (cm): 2.0 x 0.9 x 0.1 Full thickness- Yes Tunneling/undermining: none Wound tissue color: 90% eschar, 10% red Periwound tissue:dry and intact Drainage: serosanguinous, scant Drainage odor: n/a Area of concern: right mid back; small scab; area is dry, closed. Keep RIAN, monitor. Right hip, blanchable mild erythema; pad and protect with [place] SAP Left medial lower leg-intact blood blister; pad pad protect with gauze wrap PROCEDURE: Excisional Sharp Debridement- right ischium A time out was performed immediately prior to procedure start with the SECURITY PATROL DRIVER and team , correctly identifying the patient name, date of , procedure, anatomy, patient position, safety precautions, and procedure-specific equipment needs. The procedure was explained to the patient including the risks, benefits and alternatives. The risks, including but not limited to infection and bleeding, were reviewed by the performing provider and the patient agrees to undergo the procedure. Written consent was obtained . With appropriate consent the wound was sharply debrided down to and including subcutaneous tissue Total tissue debrided Less than 20 sq.cm Using a sterile curette the wound was debrided. Patient required pre-medication: Lidogel 2% Patient expressed pain during procedure: no Scale: 0 EBL: none Wound measurement prior to debridement: 1.5 x 1.5 x 0.1 Wound measurement post debridement: 1.5 x 1.5 x 0.1 Type of tissue debrided: ( slough, necrotic, devitalized) Tissue at wound bed after debridment: red/pink Dressing applied after debridement: yes Patient tolerated procedure well without apparent complications. PROCEDURE: Excisional Sharp Debridement- left sacrum A time out was performed immediately prior to procedure start with the SECURITY PATROL DRIVER and team , correctly identifying the patient name, date of , procedure, anatomy, patient position, safety precautions, and procedure-specific equipment needs. The procedure was explained to the patient including the risks, benefits and alternatives. The risks, including but not limited to infection and bleeding, were reviewed by the performing provider and the patient agrees to undergo the procedure. Written consent was obtained . With appropriate consent the wound was sharply debrided down to and including subcutaneous tissue Total tissue debrided less than 20 sq.cm Using a sterile curette the wound was debrided. Patient required pre-medication: Lidogel 2% Patient expressed pain during procedure: no Scale: 0 EBL: none Wound measurement prior to debridement: 6.0 x 8.0 x 0.1 Wound measurement post debridement: 6.0 x 8.0 x 0.1 Type of tissue debrided: ( slough, necrotic, devitalized) Tissue at wound bed after debridement: 10% red, 30% slough, 60% epithelial Dressing applied after debridement: yes (20% of wound debrided) Patient tolerated procedure well without apparent complications. DATA PHOTOGRAPHY: yes A photo was taken of the patient's wound(s). Photos can be found under the [facility] scanned docs tab on [employer]. The purpose of the photo(s) is to optimize the patient's medical care and allow a visual aid to their wound evaluation and progress. The photo(s) are not intended for publication, education, or research. If the use of the photo is desired in any additional way, other than for the above outlined purposes, then an additional consent for the intended use will need to be obtained by the requesting provider. Photo was taken of: bilat lower legs Verbal consent was obtained: yes WBC (k/uL) Date Value 06/19/2023 7.98 Hemoglobin (g/dL) Date Value 06/19/2023 13.7 Sodium (mmol/L) Date Value 06/19/2023 140 11/02/2009 141 Potassium (mmol/L) Date Value 06/19/2023 4.3 11/02/2009 3.8 CO2 (mmol/L) Date Value 06/19/2023 27 11/02/2009 27 BUN (mg/dL) Date Value 06/19/2023 21 10/21/2015 20 11/02/2009 21 AST (U/L) Date Value 06/19/2023 154 11/02/2009 24 ALT (U/L) Date Value 06/19/2023 166 11/02/2009 36 Bilirubin, Total (mg/dL) Date Value 06/19/2023 0.4 11/02/2009 0.4 Alkaline Phosphatase (U/L) Date Value 06/19/2023 341 11/02/2009 109 MICROBIOLOGY: Reviewed; wound culture, sacral, right leg (06/19/2023)- few skin eric IMAGING: Reviewed IMPRESSION/RECOMMENDATIONS The patient's age, altered mobility, and other co morbidities are likely to impact wound and skin integrity Additional impediments to healing Diabetic: No Anticoagulation: Clopidogrel Antibiotics: Bactrim and Doxycycline Steroids: No (L89.150 Pressure injury of sacral region, unstageable (L97.911) Skin ulcer of right lower leg, limited to breakdown of skin (HCC) (L97.921) Skin ulcer of left lower leg, limited to breakdown of skin (HCC) (L89.313) Pressure injury of right ischium, stage 3 (HCC) Comment: Sacral and bilat LE wounds improved, stable. Surrounding erythema of LE wounds resolved. Some firmness of sacral wound area continues, but improved. Plan: - Cleanse wounds and periwound skin with Vashe solution and gauze. Pat dry. Skin prep periwound. - Apply MediHoney gel and calcium alginate to left sacral wound. Cover with [place] SAP dressing. Change dressing 3x/week and prn. - Swab bilat lower leg wounds with Betadine. Cover with 4x4's, ABD and conform roll gauze. Change dressing 3x/week and prn. - Gentian tiffany applied to right ischial periwound in clinic. Apply saline moistened Promogran and calcium alginate to the right ischial wound. Cover with [place] SAP dressing. Change dressing 3x/week and prn. - Vaseline to intact skin bilat LE - CT pelvis as scheduled - Complete Doxycycline course as prescribed - Turn/reposition frequently in bed - Frequent weight shifts when seated - Pressure reduction devices as needed ---ROHO chair cushion in place; DO NOT use donut cushion for pressure relief ---memory foam mattress topper in place - Limit sitting in chair ----try to lay down to completely offload wound twice a day to start - Continue aggressive nutritional support to assist wound healing - Follow up in wound center in 2 weeks I discussed the plan in detail with the patient and the patient verbalizes understanding and is in agreement. My previous progress note dated 06/26/2023 was copied forward, updated where appropriate, and reflective of current medical decision making today, 07/03/2023. Nima Tillman APRN, CNP, CWS Certified [employer]obile Mechanic Apprentice July 03, 2023 documented in this encounter [facility] 06-26-2023 Note HNO ID: [id number] Author: Nima Tillman APRN.JAMAL Service: ? 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 He developed a wound on the right ischial area about one year ago. It was noticed after his colostomy surgery. Pt developed wounds on his sacral area and bilat LE about 2 weeks ago. He noticed blisters over the sacral area and bilat lower legs that then opened. He does not know how they occurred. He was seen by his PCP about two weeks ago who prescribed a course of oral Doxycycline, which continues. Pt states he is trying to sit in his chair less during the day. He is also trying to sleep more on his sides in order to decreased pressure on his sacral and ischial wounds. He is accompanied by his for the clinic visit today. He has assistance of [facility] at home now 3x/week for wound care at present. CT pelvis ordered last visit scheduled for 07/04/2023. Location: right ischium Onset: May 2022 Aggravating factors: Immobility, Positioning, and Pressure Wound etiology: Pressure Associated pain with wound: No Relieving factors for wound pain: n/a Treatments: Current: sacral, right ischial-silver alginate; bilat LE- betadine Past: Hydrofera blue PAST MEDICAL HISTORY Diagnosis Date Bacterial meningitis e-coli Dyslipidemia Hypertension Myelopathy (HCC) Nocardia infection chronic Bactrim therapy Seizures (HCC) controlled on Neurontin Sleep apnea Subarachnoid hemorrhage (HCC) Syringomyelia (HCC) cervical and thoracic PAST SURGICAL HISTORY Procedure Laterality Date APPENDECTOMY HX 56 ARTHRP KNE CONDYLEANDPLATU MEDIALANDLAT COMPARTMENTS 00 Knee replacement, total Rt HERNIA REPAIR HX 94 Rt inguinal IANDD ABSC; COMPL OR MULTI 2005 lt leg IANDD ABSC; SMPL OR SGL 2005 Rt forearm KNEE ARTHROSCOP MENISCUS REPAIR MED/LAT 79, 80, 82, 84, 93 Rt knee LAMINECT 1 SEGMT UNI/REAL EA ADD 07, 08 C7 T1 PAST SURGICAL HISTORY OF drainage of SAH PAST SURGICAL HISTORY OF TUFTER HAND shunt placement PAST SURGICAL HISTORY OF SVC and IVC filter PAST SURGICAL HISTORY OF C7 synringo-subarachnoid shunt PAST SURGICAL HISTORY OF T1 shunt placement PAST SURGICAL HISTORY OF 06? bilateral cataract surgery REVSC OPN/PRQ TIB/GARTH W/ANGIOPLASTY UNI 02-05-14 ROTATOR CUFF REPAIR 97 Rt SHOULDER ARTHROSCOPY/SURGERY 87,96 lt TRURL ELECTROSURG RESCJ PROSTATE BLEED COMPLETE 96 ALLERGIES ALLERGIES Allergen Reactions Cephlasporins [Ceph* Shortness of Breath Cephalexin Shortness of Breath Contrast Dye Hives CT contrast dye Heparin Other: See Comments Bleeds too easily Penicillins Rash, Itching CURRENT OUTPATIENT MEDICATIONS doxycycline (VIBRA-TABS) 100 mg tablet Take 1 tablet by mouth every 12 hours 6am/6pm. topiramate (TOPAMAX) 50 mg tablet TAKE 1 TAB IN AM AND ONE AT BEDTIME X1 WEEK THEN 1 TAB IN AM AND TWO TABS AT BEDTIME clopidogrel (PLAVIX) 75 mg tablet Take 75 mg by mouth once daily. ISOSORBIDE ORAL Take 10 mg by mouth once daily. ascorbic acid, vitamin C, (VITAMIN C) 500 mg tablet Take 500 mg by mouth twice daily. acetaminophen/diphenhydramine (TYLENOL PM ORAL) Take 1 tablet by mouth daily at bedtime. traZODone (DESYREL) 50 mg tablet Take 50 mg by mouth daily at bedtime. Take 1.5 tablets at bedtime for sleep tamsulosin (FLOMAX) 0.4 mg Take 0.4 mg by mouth once daily. methadone HCl (METHADONE ORAL) Take 5 mg by mouth once daily. Take 1.5 tablets AM, 1.5 tablets PM AND 3 tablets bedtime lithium carbonate (ESKALITH) 150 mg capsule Take 150 mg by mouth once daily. Take 3 capsules daily for pain/spasms levothyroxine 50 mcg cap Take 50 mcg by mouth daily before breakfast. cyclobenzaprine HCl (FLEXERIL ORAL) Take 5 mg by mouth once daily. For muscle relaxation and spasms phenazopyridine HCl (AZO-TABS ORAL) Take 2 capsules by mouth once daily. atorvastatin (LIPITOR) 40 mg tablet Take 40 mg by mouth once daily. pollen extracts (PROSTAT ORAL) Take 1 Packet by mouth twice daily. losartan-hydrochlorothiazide 50-12.5 mg per tablet Take 1 tablet by mouth once daily. 12.5mg carvedilol (COREG) 3.125 mg tablet Take 3.125 mg by mouth once daily. pyridoxine, vitamin B6, (VITAMIN B6) 100 mg tablet Take 100 mg by mouth once daily. MAGNESIUM OXIDE ORAL Take by mouth. FUROSEMIDE 40 MG TAB Take o (more content not included)... [facility] 06-26-2023 History of Presen t illness Narrative Images from the original note were not included. 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 He developed a wound on the right ischial area about one year ago. It was noticed after his colostomy surgery. Pt developed wounds on his sacral area and bilat LE about 2 weeks ago. He noticed blisters over the sacral area and bilat lower legs that then opened. He does not know how they occurred. He was seen by his PCP about two weeks ago who prescribed a course of oral Doxycycline, which continues. Pt states he is trying to sit in his chair less during the day. He is also trying to sleep more on his sides in order to decreased pressure on his sacral and ischial wounds. He is accompanied by his for the clinic visit today. He has assistance of [facility] at home now 3x/week for wound care at present. CT pelvis ordered last visit scheduled for 07/04/2023. Location: right ischium Onset: May 2022 Aggravating factors: Immobility, Positioning, and Pressure Wound etiology: Pressure Associated pain with wound: No Relieving factors for wound pain: n/a Treatments: Current: sacral, right ischial-silver alginate; bilat LE- betadine Past: Hydrofera blue PAST MEDICAL HISTORY Diagnosis Date Bacterial meningitis e-coli Dyslipidemia Hypertension Myelopathy (HCC) Nocardia infection chronic Bactrim therapy Seizures (HCC) controlled on Neurontin Sleep apnea Subarachnoid hemorrhage (HCC) Syringomyelia (HCC) cervical and thoracic PAST SURGICAL HISTORY Procedure Laterality Date APPENDECTOMY HX 56 ARTHRP KNE CONDYLE&PLATU MEDIAL&LAT COMPARTMENTS 00 Knee replacement, total Rt HERNIA REPAIR HX 94 Rt inguinal I&D ABSC; COMPL OR MULTI 2006 lt leg I&D ABSC; SMPL OR SGL 2006 Rt forearm KNEE ARTHROSCOP MENISCUS REPAIR MED/LAT 79, 80, 82, 84, 93 Rt knee LAMINECT 1 SEGMT UNI/REAL EA ADD 07, 08 C7 T1 PAST SURGICAL HISTORY OF drainage of SAH PAST SURGICAL HISTORY OF TUFTER HAND shunt placement PAST SURGICAL HISTORY OF SVC and IVC filter PAST SURGICAL HISTORY OF C7 synringo-subarachnoid shunt PAST SURGICAL HISTORY OF T1 shunt placement PAST SURGICAL HISTORY OF 06? bilateral cataract surgery REVSC OPN/PRQ TIB/GARTH W/ANGIOPLASTY UNI 02-05-14 ROTATOR CUFF REPAIR 97 Rt SHOULDER ARTHROSCOPY/SURGERY 87,96 lt TRURL ELECTROSURG RESCJ PROSTATE BLEED COMPLETE 96 ALLERGIES ALLERGIES Allergen Reactions Cephlasporins [Ceph* Shortness of Breath Cephalexin Shortness of Breath Contrast Dye Hives CT contrast dye Heparin Other: See Comments Bleeds too easily Penicillins Rash, Itching CURRENT OUTPATIENT MEDICATIONS doxycycline (VIBRA-TABS) 100 mg tablet Take 1 tablet by mouth every 12 hours 6am/6pm. topiramate (TOPAMAX) 50 mg tablet TAKE 1 TAB IN AM AND ONE AT BEDTIME X1 WEEK THEN 1 TAB IN AM AND TWO TABS AT BEDTIME clopidogrel (PLAVIX) 75 mg tablet Take 75 mg by mouth once daily. ISOSORBIDE ORAL Take 10 mg by mouth once daily. ascorbic acid, vitamin C, (VITAMIN C) 500 mg tablet Take 500 mg by mouth twice daily. acetaminophen/diphenhydramine (TYLENOL PM ORAL) Take 1 tablet by mouth daily at bedtime. traZODone (DESYREL) 50 mg tablet Take 50 mg by mouth daily at bedtime. Take 1.5 tablets at bedtime for sleep tamsulosin (FLOMAX) 0.4 mg Take 0.4 mg by mouth once daily. methadone HCl (METHADONE ORAL) Take 5 mg by mouth once daily. Take 1.5 tablets AM, 1.5 tablets PM & 3 tablets bedtime lithium carbonate (ESKALITH) 150 mg capsule Take 150 mg by mouth once daily. Take 3 capsules daily for pain/spasms levothyroxine 50 mcg cap Take 50 mcg by mouth daily before breakfast. cyclobenzaprine HCl (FLEXERIL ORAL) Take 5 mg by mouth once daily. For muscle relaxation and spasms phenazopyridine HCl (AZO-TABS ORAL) Take 2 capsules by mouth once daily. atorvastatin (LIPITOR) 40 mg tablet Take 40 mg by mouth once daily. pollen extracts (PROSTAT ORAL) Take 1 Packet by mouth twice daily. losartan-hydrochlorothiazide 50-12.5 mg per tablet Take 1 tablet by mouth once daily. 12.5mg carvedilol (COREG) 3.125 mg tablet Take 3.125 mg by mouth once daily. pyridoxine, vitamin B6, (VITAMIN B6) 100 mg tablet Take 100 mg by mouth once daily. MAGNESIUM OXIDE ORAL Take by mouth. FUROSEMIDE 40 MG TAB Take one(1) tablet daily. sulfamethoxazole/trimethoprim(BA CTRIM DS 160 MG-800 MG TAB) Take one(1) tablet daily multivitamins(DAILY MULTIVITAMIN TAB) Take one(1) tablet daily. gentamicin 0.1 % ointment Apply to right buttock wound with each dressing change as directed (Patient not taking: Reported on 06/26/2023) GABAPENTIN, BULK, MISC 600 mg daily at bedtime. hydrocortisone (CORTEF) 20 mg tablet Take 20 mg by mouth once daily. metFORMIN (GLUCOPHAGE) 500 mg tablet Take 500 mg by mouth twice daily with meals. RANITIDINE HCL ORAL Take by mouth. topiramate (TOPAMAX) 25 mg tablet Take 1 tab twice daily x2 weeks and then increase to 2 tabs twice daily and continue. (Patient taking differently: Take 1 tab twice daily x2 weeks and then increase to 2 tabs twice daily and continue. Then increase to 3 tablets per day.) HYDROcodone-Acetaminophen 10-325 mg per tablet Take 1 tablet by mouth twice daily. morphine SR (ORAMORPH SR) 15 mg 12 hr tablet Take 15 mg by mouth twice daily. zolpidem (AMBIEN) 5 mg tablet Take 5 mg by mouth at bedtime as needed. gabapentin(NEURONTIN 300 MG CAP) take 600 mg in AM, 300 mg @ dinner time, and 600 mg at bedtime duloxetine hcl(CYMBALTA 30 MG CAP) Take one(1) capsule daily. docusate sodium(STOOL SOFTENER 100 MG CAP) Take one(1) capsule twice daily. (Patient not taking: Reported on 05/31/2023) sennosides(VEGETABLE LAXATIVE 8.6 MG TAB) two tabs daily GARLIC 500 MG CAP one cap daily WARFARIN 6 MG TAB Take one tab daily FAMILY HISTORY Problem Relation Age of Onset other (depression [Other]) Sister other (depression [Other]) Mother other (depression [Other]) Brother other (htn [Other]) Father other (alcoholism [Other]) Father Heart Father Hypertension Father Diabetes Father Alcohol/Drug Father Social History Tobacco Use Smoking status: Former Tobacco comments: quit smoking in the 1950s Substance Use Topics Alcohol use: Yes Comment: a glass of wine at bedtime, occasional bourbon or beer Drug use: No REVIEW OF SYSTEMS: GENERAL: No weight loss, malaise or fevers RESPIRATORY: Negative for cough, hemoptysis, wheezing, COPD, dyspnea or shortness of breath CARDIOVASCULAR: Negative for chest pain, HTN, CHF or palpitations. Positive leg edema GI: No nausea, vomiting, or diarrhea. Positive colostomy MUSCULOSKELETAL: Negative for joint pain or swelling, back pain or muscle pain. Positive paraplegia. SKIN: Negative for lesions, rash, and itching. Positive ulcers, right ischium, sacral, bilat lower legs HEMATOLOGY/LYMPHOLOGY: Negative for prolonged bleeding, bruising easily or swollen nodes ENDOCRINE: Negative for cold or heat intolerance, polyuria, polydipsia and goiter NEURO: paraplegia Nutrition Diet:regular Supplement: Prostat, MVI Appetite: good PHYSICAL EXAM: BP 146/69 / Pulse 67 / Resp 12 / Temp 98.1 F / SpO2 96% General appearance: Well appearing, alert, in no acute distress, well-hydrated, well nourished. and wheelchair bound. Skin: Skin color, texture, turgor normal, no suspicious rashes or lesions. Positive ulcers, right ischium, sacral, bilat lower legs (see wound assessment) Head: Normocephalic, no masses, lesions, tenderness or abnormalities Eyes: Anicteric sclera. Pupils are equally round and reactive to light. Extraocular movements are intact. Lungs: normal respiratory rate and rhythm Heart: regular rate and rhythm Abdomen: soft, nontender. Colostomy appliance intact Extremities: Edema: no edema right lower leg, 4+ edema right foot, 3+ edema right ankle; 3+ edema left lower leg, 4+ edema left foot, 4+ edema left ankle Musculoskeletal: No joint swelling, deformity, or tenderness Peripheral pulses: triphasic DP doppler signals x 2. Biphasic PT doppler signals x 2 Neuro: Oriented X 3. Paraplegic. WOUND ASSESSMENT Wound 1: Location: right ischium Type: pressure injury Stage: Stage 3 Exposed structure:None Progress: no significant change Wound measurements (cm): 1.8 x 1.3 x 0.2 Full thickness- Yes Tunneling/undermining: none Wound tissue color: 90% red/pink and 10% slough Periwound tissue: dry and intact Drainage: serosanguinous, medium amount Drainage odor: none Wound 2: Location: left sacrum Type: pressure injury Stage: unstageable Exposed structure:None Progress: improved Wound measurements (cm): 7.8 x 8.4 x 0.1 Full thickness- Yes Tunneling/undermining: none Wound tissue color: 50% slough, 10% red, 40% eschar Periwound tissue: mild induration, improved Drainage: serosanguinous, medium amount Drainage odor: none Wound 3: Location: right lateral lower leg Type: vascular Stage: n/a Exposed structure:None Progress: improved Wound measurements (cm): 10.5 x 4.5 x scab Full thickness- Yes Tunneling/undermining: none Wound tissue color: eschar Periwound tissue:dry and intact Drainage: serosanguinous, scant Drainage odor: none Wound 4: Location: left lateral lower leg Type: vascular Stage: n/a Exposed structure:None Progress: improved Wound measurements (cm): 2.2 x 2.0 x scab Full thickness- Yes Tunneling/undermining: none Wound tissue color: eschar Periwound tissue:dry and intact Drainage: none Drainage odor: n/a Area of concern: right mid back; linear area of flat blood blisters; area is dry, closed. Keep RIAN, monitor. PROCEDURE: Excisional Sharp Debridement- right ischium A time out was performed immediately prior to procedure start with the SECURITY PATROL DRIVER and team , correctly identifying the patient name, date of , procedure, anatomy, patient position, safety precautions, and procedure-specific equipment needs. The procedure was explained to the patient including the risks, benefits and alternatives. The risks, including but not limited to infection and bleeding, were reviewed by the performing provider and the patient agrees to undergo the procedure. Written consent was obtained . With appropriate consent the wound was sharply debrided down to and including subcutaneous tissue Total tissue debrided Less than 20 sq.cm Using a sterile curette the wound was debrided. Patient required pre-medication: Lidogel 2% Patient expressed pain during procedure: no Scale: 0 EBL: none Wound measurement prior to debridement: 1.8 x 1.3 x 0.2 Wound measurement post debridement: 1.8 x 1.5 x 0.2 Type of tissue debrided: ( slough, necrotic, devitalized) Tissue at wound bed after debridment: red Dressing applied after debridement: yes Patient tolerated procedure well without apparent complications. PROCEDURE: Excisional Sharp Debridement- lest sacrum A time out was performed immediately prior to procedure start with the SECURITY PATROL DRIVER and team , correctly identifying the patient name, date of , procedure, anatomy, patient position, safety precautions, and procedure-specific equipment needs. The procedure was explained to the patient including the risks, benefits and alternatives. The risks, including but not limited to infection and bleeding, were reviewed by the performing provider and the patient agrees to undergo the procedure. Written consent was obtained . With appropriate consent the wound was sharply debrided down to and including subcutaneous tissue Total tissue debrided greater than 20 sq.cm Using a sterile curette the wound was debrided. Patient required pre-medication: Lidogel 2% Patient expressed pain during procedure: no Scale: 0 EBL: none Wound measurement prior to debridement: 7.8 x 8.4 x 0.1 Wound measurement post debridement: 6.0 x 8.0 x 0.1 Type of tissue debrided: ( slough, necrotic, devitalized) Tissue at wound bed after debridment: 30% red, 30% slough, 20% eschar, 20% epithelial Dressing applied after debridement: yes Patient tolerated procedure well without apparent complications. DATA PHOTOGRAPHY: yes A photo was taken of the patient's wound(s). Photos can be found under the [facility] images tab on [facility]. The purpose of the photo(s) is to optimize the patient's medical care and allow a visual aid to their wound evaluation and progress. The photo(s) are not intended for publication, education, or research. If the use of the photo is desired in any additional way, other than for the above outlined purposes, then an additional consent for the intended use will need to be obtained by the requesting provider. Photo was taken of: right ischium, sacrum, bilat lower legs Verbal consent was obtained: yes WBC (k/uL) Date Value 06/19/2023 7.98 Hemoglobin (g/dL) Date Value 06/19/2023 13.7 Sodium (mmol/L) Date Value 06/19/2023 140 11/02/2009 141 Potassium (mmol/L) Date Value 06/19/2023 4.3 11/02/2009 3.8 CO2 (mmol/L) Date Value 06/19/2023 27 11/02/2009 27 BUN (mg/dL) Date Value 06/19/2023 21 10/21/2015 20 11/02/2009 21 AST (U/L) Date Value 06/19/2023 154 11/02/2009 24 ALT (U/L) Date Value 06/19/2023 166 11/02/2009 36 Bilirubin, Total (mg/dL) Date Value 06/19/2023 0.4 11/02/2009 0.4 Alkaline Phosphatase (U/L) Date Value 06/19/2023 341 11/02/2009 109 MICROBIOLOGY: Reviewed; wound culture, sacral, right leg (06/19/2023)- few skin eric IMAGING: Reviewed IMPRESSION/RECOMMENDATIONS The patient's age, altered mobility, and other co morbidities are likely to impact wound and skin integrity Additional impediments to healing Diabetic: No Anticoagulation: Clopidogrel Antibiotics: Bactrim and Doxycycline Steroids: No (L89.150 Pressure injury of sacral region, unstageable (L97.911) Skin ulcer of right lower leg, limited to breakdown of skin (HCC) (L97.921) Skin ulcer of left lower leg, limited to breakdown of skin (HCC) (L89.313) Pressure injury of right ischium, stage 3 (HCC) Comment: Sacral and bilat LE wounds clinically improved. Deep purple discoloration of sacral and bilat LE wound areas now either slough or eschar. Surrounding erythema of LE wounds resolved. Some firmness of sacral wound area which is improved. Sacral and right leg wound cultures discussed with pt/spouse. No additional antibiotic needed. All questions answered. Plan: - Cleanse wounds and periwound skin with Vashe solution and gauze. Pat dry. Skin prep periwound. - Apply silver alginate to left sacral wound. Cover with [place] SAP dressing. Change dressing 3x/week and prn. - Swab bilat lower leg wounds with Betadine. Cover with 4x4's, ABD and conform roll gauze. Change dressing 3x/week and prn. - Gentian tiffany applied to right ischial periwound in clinic. Apply Promogran to the right ischial wound. Cover with [place] SAP dressing. Change dressing 3x/week and prn. - Vaseline to intact skin bilat LE - CT pelvis as scheduled - Complete Doxycycline course as prescribed - Turn/reposition frequently in bed - Frequent weight shifts when seated - Pressure reduction devices as needed ---ROHO chair cushion in place; DO NOT use donut cushion for pressure relief ---memory foam mattress topper in place - Limit sitting in chair ----try to lay down to completely offload wound twice a day to start - Continue aggressive nutritional support to assist wound healing - Follow up in wound center in 1 week I discussed the plan in detail with the patient and the patient verbalizes understanding and is in agreement. My previous progress note dated 06/19/2023 was copied forward, updated where appropriate, and reflective of current medical decision making today, 06/26/2023. Nima Tillman APRN, JAMAL, CWS Certified Automobile Mechanic Apprentice June 26, 2023 documented in this encounter [facility] 06-26-2023 Instructions Aileen Henson RN - 06/26/2023 11:38 AM EDT WOUND CARE INSTRUCTIONS- [facility] (Nurse Sue) FAX: [phone] or [phone] Wound location: Right ischium 1. Wash your hands with soap and water before and after wound care. 2. Gather all supplies needed. 3. Wash wound with Dial soap and water. Pat dry. Apply Vashe soak: apply Vashe moistened gauze to the wound and allow to soak for 5-10 minutes, then remove and pat dry. 4. Apply Promogran to the wound bed. 5. Cover with [place] SAP (silicone bordered bandage) 6. Change your dressing 3 times per week and as needed to maintain clean dry dressing. Wound location: Left Sacrum 1. Wash your hands with soap and water before and after wound care. 2. Gather all supplies needed. 3. Wash wound with Dial soap and water. Pat dry. Apply Vashe soak: apply Vashe moistened gauze to the wound and allow to soak for 5-10 minutes, then remove and pat dry. 4. Apply silver alginate to the wound bed. 5. Cover with [place] SAP (silicone bordered bandage) 6. Change your dressing 3 times per week and as needed to maintain clean dry dressin Left & Right Lateral lower Legs : 1. Wash your hands with soap and water before and after wound care. 2. Gather all supplies needed. 3. Wash wound with Dial soap and water. Pat dry. 4. [place] the wound and scabbed areas with Betadine and allow to dry 5. Cover with 4x4 gauze, ABD, conform, tape. 6. Change your dressing 3 x weekly and as needed to maintain clean dry dressing. 7. Apply single layer tubi child care coordinator size D to right and left legs from base of toes to 1 inch below the knee. Position changes every 2 hours - lay in recliner on your side, get into bed and lay on your sides, use pillow to help keep you off of the wound To give your wound the best chance to heal: - Eat three balanced meals daily focusing on the protein - Control swelling by elevating the extremity above your heart - Complete your wound care instructions - Vitamin C 500 mg twice daily - Multiple Vitamin Daily - Drink a protein shake daily Report any of the following changes [phone] or go to the Emergency Department: Fever or chills Increased drainage Green or yellow drainage Foul odor Increased pain Hardness around the wound Redness, warmth or swelling of the surrounding tissue Color change to the wound Plan: Follow-up in the wound center with Nima in 1 week Continue aggressive nutritional support for optimal wound healing Complete antibiotics as prescribed. CT scheduled for 07/04/23 Imaging [phone] Do not use donut for pressure relief. Stay off your buttocks and continue to offload to prevent pressure on wounds. Rotate side to side to prevent pressure using pillows behind back. You can use pillows between legs and under legs (above the wounds) to keep pressure off the leg wounds when Skyler is on his side. 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) Provider seeing patient: Nima Tillman CNP WOUND ASSESSMENT: Refer to Provider's Wound Assessment Note VASCULAR ASSESSMENT BY PROVIDER: not assessed at 06/26/23 visit CHF History: denies EDEMA: Right foot: 4+ Right calf: none Right Ankle: 3+ Left foot : 4+ Left Ankle: 4+ Left Calf: 3+ Other: n/a MEASUREMENTS: in CM Right Calf: 28.1 Right Ankle: 22.5 Left Calf: 29.5 Left Ankle: 21.4 Length: 48.5 not measured at 06/26/23 visit WOUND PHOTOGRAPHY: YES x 6 DEBRIDEMENT PROCEDURE BY PROVIDER: Anesthetic Used: 2% lidogel applied per Noni Norman RN Wound #1-4 Other procedure: N/A Specimen collected: n/a WOUND TREATMENT PER MD ORDER: Wounds cleansed by mechanical debridement to allow provider to visualize wound base Roll patient to the left side to visualize all wounds WOUND #1 LOCATION: Right ischium (May 2022) L: 1.8 cm x W: 1.3 cm x D: 0.2 cm Debridement by Provider: SQ Post Debridement Measurements: L: 1.8 cm x W: 1.5 cm x D: 0.2 cm Macerated circumferential Cleansed with: Vashe Applied to renée-wound skin: Gentian tiffany, skin prep Applied to wound bed: Promogran Covered and secured with: [place] SAP 4x4 Other: n/a WOUND # 2 LOCATION: Left Sacrum (New 06/19/23) L: 7.8 cm x W: 8.4 cm x D: 0.1 cm DEBRIDEMENT by provider: SQ Post debridement measurements (if applicable) : L: 6.0 cm x W: 8.0 cm x D: 0.1 cm Red and blanchable Cleansed with: Vashe Applied to renée-wound skin: skin prep Applied to wound bed: silver alginate Covered and secured with: [place] SAP 6x7 Other: n/a WOUND # 3 LOCATION: Right lateral Lower Leg (New 06/19/23) L: 10.5 cm x W: 4.5 cm x D: scab cm DEBRIDEMENT by provider: N/A WOUND # 4 LOCATION: Left Lateral Lower Leg (New 06/19/23) L: 2.2 cm x W: 2.0 cm x D: eschar 75% and remaining blanchable areas DEBRIDEMENT by provider: N/A Cleansed with: vashe Applied to renée-wound skin: Betadine, Vaseline Applied to wound bed: 4x4 gauze, ABD Covered and secured with: conform, tape. Other: n/a Area of concern: Multiple scattered DTI Left Buttocks - resolved Area of Concern: Left Medial Lower Leg - erythematous on 06/26/23 Area of concern: right mid back flat blood blisters - will watch. No dressing COMPRESSION: Single layer tubi-child care coordinator size D to BLE SPECIAL NEEDS: Coordination of care AVS to [facility] via [employer] Emotional support N/A OR set-up N/A Physician Vice President N/A Incontinence needs N/A DISCHARGED in stable condition to: home via wheelchair with Global surgical period dates if applicable: N/A Plan: Follow-up in the wound center with Nima in 1 week Continue aggressive nutritional support for optimal wound healing Complete antibiotics as prescribed. CT scheduled for 07/04/23 Imaging [phone] Do not use donut for pressure relief. Stay off your buttocks and continue to offload to prevent pressure on wounds. Rotate side to side to prevent pressure using pillows behind back. You can use pillows between legs and under legs (above the wounds) to keep pressure off the leg wounds when Skyler is on his side. The legs should be almost like floating so there is no pressure on them EDUCATION: The patient/family was instructed how to cleanse the wound(s). Visual demonstration on how to apply the dressing with teach back method. Signs & symptoms of infection were reviewed: Increased redness, swelling, pain, green/yellow drainage, fever and/or chills would all need to be evaluated by a Physician. Patient received typed home-going wound care instructions and has expressed intent to comply. OTHER EDUCATION: Nima discussed wound progress, wound culture had skin eric, off loading to the wounds, new wound care Education performed regarding lymphedema/edema: Elevation of extremity above the heart for 30 minutes three times daily and as needed Exercise such as writing the ABC's with your toes in the air, walking and/or calf pumps Wearing compression as ordered by provider Diet controlling of sodium as instructed by provider Use of medication to help control edema. ___ UNIVERSAL PROTOCOL / SAFETY CHECKLIST Procedure to be Performed: sharp debridement buttock Sign In: 1210 A Moment of CARE was completed. Personnel directly involved with the procedure wore the appropriate PPE (Personal Protective Equipment). Patient/Surrogate Stated/Verified: PATIENT VERIFIED(optional for EMERGENT procedures): Patient name, Date of , Relevant allergies, and The intended procedure Time Out Communication: 1210 Intended patient and procedure match the source documents. Consent documented and matches the intended procedure. Sign Out: 1217 SIGN OUT (optional for EMERGENT procedures): No specimen collected. ___ Current HBOT Status: Active or Complete - see screening below WOUND CENTER HYPERBARIC OXYGEN THERAPY SCREENING 1. Is the patient diabetic? (If No, skip to question 5) No 5. Has the patient been diagnosed with osteomyelitis? No 6. Has the patient had a previous skin graft or flap at the wound? No 7. Has the patient had or been offered vascular intervention/evaluation? No 8. Does the patient have a wound at an amputation site? No 9. Has the patient had radiation therapy at the site of the problem? No If Yes to ANY of questions 5-9, consult the Hyperbaric Center Aileen Henson RN/sv documented in this encounter [facility] 06-19-2023 Note HNO ID: [id number] Author: Nima Tillman APRN.DARK ROOM ATTENDANT Service: ? 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 He developed a wound on the right ischial area about one year ago. It was noticed after his colostomy surgery. Pt reports new wounds on his sacral area and bilat LE. He states he noticed blisters over the sacral area and bilat lower legs last week that have now opened. He does not know how they occurred. He has also noticed some increased edema of his lower legs. He was seen by his PCP last week who prescribed a course of oral Doxycycline, which continues. Pt continues to sit up in his motorized wheelchair most of the day. He also sleeps on his back. He states he cannot sleep on his sides. Pt is accompanied by his son for the clinic visit today. He has assistance of [facility] at home now 3x/week for wound care while his is out of town. Location: right ischium Onset: May 2022 Aggravating factors: Immobility, Positioning, and Pressure Wound etiology: Pressure Associated pain with wound: No Relieving factors for wound pain: n/a Treatments: Current: Hydrofera blue Past: n/a PAST MEDICAL HISTORY Diagnosis Date Bacterial meningitis e-coli Dyslipidemia Hypertension Myelopathy (HCC) Nocardia infection chronic Bactrim therapy Seizures (HCC) controlled on Neurontin Sleep apnea Subarachnoid hemorrhage (HCC) Syringomyelia (HCC) cervical and thoracic PAST SURGICAL HISTORY Procedure Laterality Date APPENDECTOMY HX 56 ARTHRP KNE CONDYLEANDPLATU MEDIALANDLAT COMPARTMENTS 00 Knee replacement, total Rt HERNIA REPAIR HX 94 Rt inguinal IANDD ABSC; COMPL OR MULTI 2006 lt leg IANDD ABSC; SMPL OR SGL 2006 Rt forearm KNEE ARTHROSCOP MENISCUS REPAIR MED/LAT 79, 80, 82, 84, 93 Rt knee LAMINECT 1 SEGMT UNI/REAL EA ADD 07, 08 C7 T1 PAST SURGICAL HISTORY OF drainage of SAH PAST SURGICAL HISTORY OF TUFTER HAND shunt placement PAST SURGICAL HISTORY OF SVC and IVC filter PAST SURGICAL HISTORY OF C7 synringo-subarachnoid shunt PAST SURGICAL HISTORY OF T1 shunt placement PAST SURGICAL HISTORY OF 06? bilateral cataract surgery REVSC OPN/PRQ TIB/GARTH W/ANGIOPLASTY UNI 02-05-14 ROTATOR CUFF REPAIR 97 Rt SHOULDER ARTHROSCOPY/SURGERY 87,96 lt TRURL ELECTROSURG RESCJ PROSTATE BLEED COMPLETE 96 ALLERGIES ALLERGIES Allergen Reactions Cephlasporins [Ceph* Shortness of Breath Cephalexin Shortness of Breath Contrast Dye Hives CT contrast dye Heparin Other: See Comments Bleeds too easily Penicillins Rash, Itching CURRENT OUTPATIENT MEDICATIONS sulfamethoxazole/trimethoprim(BA CTRIM DS 160 MG-800 MG TAB) Take one(1) tablet daily doxycycline (VIBRA-TABS) 100 mg tablet Take 1 tablet by mouth every 12 hours 6am/6pm. gentamicin 0.1 % ointment Apply to right buttock wound with each dressing change as directed clopidogrel (PLAVIX) 75 mg tablet Take 75 mg by mouth once daily. GABAPENTIN, BULK, MISC 600 mg daily at bedtime. ISOSORBIDE ORAL Take 10 mg by mouth once daily. ascorbic acid, vitamin C, (VITAMIN C) 500 mg tablet Take 500 mg by mouth twice daily. acetaminophen/diphenhydramine (TYLENOL PM ORAL) Take 1 tablet by mouth daily at bedtime. traZODone (DESYREL) 50 mg tablet Take 50 mg by mouth daily at bedtime. Take 1.5 tablets at bedtime for sleep tamsulosin (FLOMAX) 0.4 mg Take 0.4 mg by mouth once daily. methadone HCl (METHADONE ORAL) Take 5 mg by mouth once daily. Take 1.5 tablets AM, 1.5 tablets PM AND 3 tablets bedtime lithium carbonate (ESKALITH) 150 mg capsule Take 150 mg by mouth once daily. Take 3 capsules daily for pain/spasms levothyroxine 50 mcg cap Take 50 mcg by mouth daily before breakfast. cyclobenzaprine HCl (FLEXERIL ORAL) Take 5 mg by mouth once daily. For muscle relaxation and spasms phenazopyridine HCl (AZO-TABS ORAL) Take 2 capsules by mouth once daily. atorvastatin (LIPITOR) 40 mg tablet Take 40 mg by mouth once daily. pollen extracts (PROSTAT ORAL) Take 1 Packet by mouth twice daily. hydrocortisone (CORTEF) 20 mg tablet Take 20 mg by mouth once daily. metFORMIN (GLUCOPHAGE) 500 mg tablet Take 500 mg by mouth twice daily with meals. RANITIDINE HCL ORAL Take by mouth. topiramate (TOPAMAX) 25 mg tablet Take 1 tab twice daily x2 weeks and then increase to 2 tabs twice daily and continue. (Patient taking differe (more content not included)... [facility] 06-19-2023 Instructions Leigh Ann Gastelum RN - 06/19/2023 2:30 PM EDT [facility] FAX: [phone] or [phone] Wound location: Right ischium & Left Sacrum 1. Wash your hands with soap and water before and after wound care. 2. Gather all supplies needed. 3. Wash wound with Dial soap and water. Pat dry. Apply Vashe soak: apply Vashe moistened gauze to the wound and allow to soak for 5-10 minutes, then remove. 4. Apply Calcium alginate with silver to the wound bed. 5. Cover with [place] SAP (silicone bordered bandage) 6. Change your dressing 3 times per week and as needed to maintain clean dry dressing. Right and Left Lateral Legs: 1. Wash your hands with soap and water before and after wound care. 2. Gather all supplies needed. 3. Wash wound with Dial soap and water. Pat dry. Apply Vashe soak: apply Vashe moistened gauze to the wound and allow to soak for 5-10 minutes, then remove. 4. Apply adaptic followed by calcium alginate with silver to the wound base. 5. Cover with 4x4 gauze, ABD, conform, tape. 6. Change your dressing 3 x weekly and as needed to maintain clean dry dressing. 7. Apply single layer tubi child care coordinator size D to right and left legs from base of toes to 1 inch below the knee. Position changes every 2 hours - lay in recliner on your side, get into bed and lay on your sides, use pillow to help keep you off of the wound To give your wound the best chance to heal: - Eat three balanced meals daily focusing on the protein - Control swelling by elevating the extremity above your heart - Complete your wound care instructions - Vitamin C 500 mg twice daily - Multiple Vitamin Daily - Drink a protein shake daily Report any of the following changes [phone] or go to the Emergency Department: Fever or chills Increased drainage Green or yellow drainage Foul odor Increased pain Hardness around the wound Redness, warmth or swelling of the surrounding tissue Color change to the wound Plan: Follow-up in the wound center with Nima in 1 week Go to the ER if worsening wounds, signs and symptoms of infection Wound cultures obtained from sacrum and Right Leg wounds this visit, provider will notify you of results when available. Continue aggressive nutritional support for optimal wound healing Complete antibiotics as prescribed. CT ordered this visit. Call to schedule. Imaging Scheduling: Call [phone] to schedule your MRI or Cat Scan. Labs ordered this visit CMP, CBC with dif, prealbumin Do not use donut for pressure relief. Stay off your buttocks and continue to offload to prevent pressure on wounds. Rotate side to side to prevent pressure using pillows behind back. Paperwork filled out and submitted for medical record release to patients PCP. Nima Tillman, JAMAL/mh/sv/fm documented in this encounter [facility] 06-19-2023 History of Presen t illness Narrative Images from the original note were not included. 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 He developed a wound on the right ischial area about one year ago. It was noticed after his colostomy surgery. Pt reports new wounds on his sacral area and bilat LE. He states he noticed blisters over the sacral area and bilat lower legs last week that have now opened. He does not know how they occurred. He has also noticed some increased edema of his lower legs. He was seen by his PCP last week who prescribed a course of oral Doxycycline, which continues. Pt continues to sit up in his motorized wheelchair most of the day. He also sleeps on his back. He states he cannot sleep on his sides. Pt is accompanied by his son for the clinic visit today. He has assistance of [facility] at home now 3x/week for wound care while his is out of town. Location: right ischium Onset: May 2022 Aggravating factors: Immobility, Positioning, and Pressure Wound etiology: Pressure Associated pain with wound: No Relieving factors for wound pain: n/a Treatments: Current: Hydrofera blue Past: n/a PAST MEDICAL HISTORY Diagnosis Date Bacterial meningitis e-coli Dyslipidemia Hypertension Myelopathy (HCC) Nocardia infection chronic Bactrim therapy Seizures (HCC) controlled on Neurontin Sleep apnea Subarachnoid hemorrhage (HCC) Syringomyelia (HCC) cervical and thoracic PAST SURGICAL HISTORY Procedure Laterality Date APPENDECTOMY HX 56 ARTHRP KNE CONDYLE&PLATU MEDIAL&LAT COMPARTMENTS 00 Knee replacement, total Rt HERNIA REPAIR HX 94 Rt inguinal I&D ABSC; COMPL OR MULTI 2006 lt leg I&D ABSC; SMPL OR SGL 2006 Rt forearm KNEE ARTHROSCOP MENISCUS REPAIR MED/LAT 79, 80, 82, 84, 93 Rt knee LAMINECT 1 SEGMT UNI/REAL EA ADD 07, 08 C7 T1 PAST SURGICAL HISTORY OF drainage of SAH PAST SURGICAL HISTORY OF TUFTER HAND shunt placement PAST SURGICAL HISTORY OF SVC and IVC filter PAST SURGICAL HISTORY OF C7 synringo-subarachnoid shunt PAST SURGICAL HISTORY OF T1 shunt placement PAST SURGICAL HISTORY OF 06? bilateral cataract surgery REVSC OPN/PRQ TIB/GARTH W/ANGIOPLASTY UNI 1214 ROTATOR CUFF REPAIR 97 Rt SHOULDER ARTHROSCOPY/SURGERY 87,96 lt TRURL ELECTROSURG RESCJ PROSTATE BLEED COMPLETE 96 ALLERGIES ALLERGIES Allergen Reactions Cephlasporins [Ceph* Shortness of Breath Cephalexin Shortness of Breath Contrast Dye Hives CT contrast dye Heparin Other: See Comments Bleeds too easily Penicillins Rash, Itching CURRENT OUTPATIENT MEDICATIONS sulfamethoxazole/trimethoprim(BA CTRIM DS 160 MG-800 MG TAB) Take one(1) tablet daily doxycycline (VIBRA-TABS) 100 mg tablet Take 1 tablet by mouth every 12 hours 6am/6pm. gentamicin 0.1 % ointment Apply to right buttock wound with each dressing change as directed clopidogrel (PLAVIX) 75 mg tablet Take 75 mg by mouth once daily. GABAPENTIN, BULK, MISC 600 mg daily at bedtime. ISOSORBIDE ORAL Take 10 mg by mouth once daily. ascorbic acid, vitamin C, (VITAMIN C) 500 mg tablet Take 500 mg by mouth twice daily. acetaminophen/diphenhydramine (TYLENOL PM ORAL) Take 1 tablet by mouth daily at bedtime. traZODone (DESYREL) 50 mg tablet Take 50 mg by mouth daily at bedtime. Take 1.5 tablets at bedtime for sleep tamsulosin (FLOMAX) 0.4 mg Take 0.4 mg by mouth once daily. methadone HCl (METHADONE ORAL) Take 5 mg by mouth once daily. Take 1.5 tablets AM, 1.5 tablets PM & 3 tablets bedtime lithium carbonate (ESKALITH) 150 mg capsule Take 150 mg by mouth once daily. Take 3 capsules daily for pain/spasms levothyroxine 50 mcg cap Take 50 mcg by mouth daily before breakfast. cyclobenzaprine HCl (FLEXERIL ORAL) Take 5 mg by mouth once daily. For muscle relaxation and spasms phenazopyridine HCl (AZO-TABS ORAL) Take 2 capsules by mouth once daily. atorvastatin (LIPITOR) 40 mg tablet Take 40 mg by mouth once daily. pollen extracts (PROSTAT ORAL) Take 1 Packet by mouth twice daily. hydrocortisone (CORTEF) 20 mg tablet Take 20 mg by mouth once daily. metFORMIN (GLUCOPHAGE) 500 mg tablet Take 500 mg by mouth twice daily with meals. RANITIDINE HCL ORAL Take by mouth. topiramate (TOPAMAX) 25 mg tablet Take 1 tab twice daily x2 weeks and then increase to 2 tabs twice daily and continue. (Patient taking differently: Take 1 tab twice daily x2 weeks and then increase to 2 tabs twice daily and continue. Then increase to 3 tablets per day.) losartan-hydrochlorothiazide 50-12.5 mg per tablet Take 1 tablet by mouth once daily. 12.5mg carvedilol (COREG) 3.125 mg tablet Take 3.125 mg by mouth once daily. HYDROcodone-Acetaminophen 10-325 mg per tablet Take 1 tablet by mouth twice daily. morphine SR (ORAMORPH SR) 15 mg 12 hr tablet Take 15 mg by mouth twice daily. zolpidem (AMBIEN) 5 mg tablet Take 5 mg by mouth at bedtime as needed. pyridoxine, vitamin B6, (VITAMIN B6) 100 mg tablet Take 100 mg by mouth once daily. MAGNESIUM OXIDE ORAL Take by mouth. gabapentin(NEURONTIN 300 MG CAP) take 600 mg in AM, 300 mg @ dinner time, and 600 mg at bedtime duloxetine hcl(CYMBALTA 30 MG CAP) Take one(1) capsule daily. FUROSEMIDE 40 MG TAB Take one(1) tablet daily. docusate sodium(STOOL SOFTENER 100 MG CAP) Take one(1) capsule twice daily. (Patient not taking: Reported on 05/31/2023) sennosides(VEGETABLE LAXATIVE 8.6 MG TAB) two tabs daily multivitamins(DAILY MULTIVITAMIN TAB) Take one(1) tablet daily. GARLIC 500 MG CAP one cap daily WARFARIN 6 MG TAB Take one tab daily FAMILY HISTORY Problem Relation Age of Onset other (depression [Other]) Sister other (depression [Other]) Mother other (depression [Other]) Brother other (htn [Other]) Father other (alcoholism [Other]) Father Heart Father Hypertension Father Diabetes Father Alcohol/Drug Father Social History Tobacco Use Smoking status: Former Tobacco comments: quit smoking in the 1950s Substance Use Topics Alcohol use: Yes Comment: a glass of wine at bedtime, occasional bourbon or beer Drug use: No REVIEW OF SYSTEMS: GENERAL: No weight loss, malaise or fevers RESPIRATORY: Negative for cough, hemoptysis, wheezing, COPD, dyspnea or shortness of breath CARDIOVASCULAR: Negative for chest pain, HTN, CHF or palpitations. Positive leg edema GI: No nausea, vomiting, or diarrhea. Positive colostomy MUSCULOSKELETAL: Negative for joint pain or swelling, back pain or muscle pain. Positive paraplegia. SKIN: Negative for lesions, rash, and itching. Positive ulcers, right ischium, sacral, bilat lower legs HEMATOLOGY/LYMPHOLOGY: Negative for prolonged bleeding, bruising easily or swollen nodes ENDOCRINE: Negative for cold or heat intolerance, polyuria, polydipsia and goiter NEURO: paraplegia Nutrition Diet:regular Supplement: Prostat, MVI Appetite: good PHYSICAL EXAM: BP 120/54 / Pulse 58 / Resp 16 / Temp 97.3 F / SpO2 97% General appearance: Well appearing, alert, in no acute distress, well-hydrated, well nourished. and wheelchair bound. Skin: Skin color, texture, turgor normal, no suspicious rashes or lesions. Positive ulcers, right ischium, sacral, bilat lower legs (see wound assessment) Head: Normocephalic, no masses, lesions, tenderness or abnormalities Eyes: Anicteric sclera. Pupils are equally round and reactive to light. Extraocular movements are intact. Lungs: normal respiratory rate and rhythm Heart: regular rate and rhythm Abdomen: soft, nontender. Colostomy appliance intact Extremities: Edema: no edema right lower leg, 3+ edema right foot; no edema left lower leg, 3+ edema left foot Musculoskeletal: No joint swelling, deformity, or tenderness Peripheral pulses: triphasic DP doppler signals x 2. Biphasic PT doppler signals x 2 Neuro: Oriented X 3. Paraplegic. WOUND ASSESSMENT Wound 1: Location: right ischium Type: pressure injury Stage: Stage 3 Exposed structure:None Progress: improved Wound measurements (cm): 1.7 x 1.5 x 0.2 Full thickness- Yes Tunneling/undermining: none Wound tissue color: 90% red/pink and 10% slough Periwound tissue: dry and intact Drainage: serosanguinous, medium amount Drainage odor: none Wound 2: Location: left sacrum Type: pressure injury Stage: deep tissue injury Exposed structure:None Progress: initial Wound measurements (cm): 4.5 x 4.0 x 0.1 Full thickness- Yes Tunneling/undermining: none Wound tissue color: 10% red with areas of deep purple non blanchable discoloration and deflated blisters Periwound tissue: mild induration Drainage: serosanguinous, medium amount Drainage odor: none Wound 3: Location: right lateral lower leg Type: vascular Stage: n/a Exposed structure:None Progress: initial Wound measurements (cm): 3.5 x 2.5 x 0.1 Full thickness- Yes Tunneling/undermining: none Wound tissue color: 10% red with areas of deep purple non blanchable discoloration and deflated blisters Periwound tissue: mild dusky erythema Drainage: serosanguinous, small to medium amount Drainage odor: none Wound 4: Location: left lateral lower leg Type: vascular Stage: n/a Exposed structure:None Progress: initial Wound measurements (cm): 0.6 x 1.1 x scab Full thickness- Yes Tunneling/undermining: none Wound tissue color: eschar Periwound tissue:dry and intact Drainage: serosanguinous, small Drainage odor: none DATA PHOTOGRAPHY: yes A photo was taken of the patient's wound(s). Photos can be found under the [facility] images tab on [facility]. The purpose of the photo(s) is to optimize the patient's medical care and allow a visual aid to their wound evaluation and progress. The photo(s) are not intended for publication, education, or research. If the use of the photo is desired in any additional way, other than for the above outlined purposes, then an additional consent for the intended use will need to be obtained by the requesting provider. Photo was taken of: right ischium, sacrum, bilat lower legs Verbal consent was obtained: yes Sodium (mmol/L) Date Value 11/02/2009 141 Potassium (mmol/L) Date Value 11/02/2009 3.8 CO2 (mmol/L) Date Value 11/02/2009 27 BUN (mg/dL) Date Value 10/21/2015 20 11/02/2009 21 AST (U/L) Date Value 11/02/2009 24 ALT (U/L) Date Value 11/02/2009 36 Bilirubin, Total (mg/dL) Date Value 11/02/2009 0.4 Alkaline Phosphatase (U/L) Date Value 11/02/2009 109 MICROBIOLOGY: Reviewed IMAGING: Reviewed IMPRESSION/RECOMMENDATIONS The patient's age, altered mobility, and other co morbidities are likely to impact wound and skin integrity Additional impediments to healing Diabetic: No Anticoagulation: Clopidogrel Antibiotics: Bactrim and Doxycycline Steroids: No (T14.8XXA, L08.9) Wound infection (L89.156) Pressure injury of deep tissue of sacral region (L97.911) Skin ulcer of right lower leg, limited to breakdown of skin (HCC) (L97.921) Skin ulcer of left lower leg, limited to breakdown of skin (HCC) (L89.313) Pressure injury of right ischium, stage 3 ([facility]) Comment: Mild induration of left sacral wound are, no fluctuation, no foul drainage or increase in drainage. Plan: - Wound culture for C&S, sacral and right lower leg wounds. - Check labs, CBCw/D/ CMP - CT pelvis d/t concern for abscess - Continue Doxycycline as ordered. May need to change or extend antibiotic based on culture results - Cleanse wounds and periwound skin with Vashe solution and gauze. Pat dry. - Apply silver alginate to left sacral wound. Cover with [place] SAP dressing. Change dressing 3x/week and prn. - Apply Adaptic and silver alginate to bilat lower leg wounds. Cover with 4x4's, ABD and conform roll gauze. Change dressing 3x/week and prn. - Apply silver alginate to the right ischial wound. Cover with [place] SAP dressing. Change dressing 3x/week and prn. - Continue Doxycycline as prescribed for now - Turn/reposition frequently in bed - Frequent weight shifts when seated - Pressure reduction devices as needed ---ROHO chair cushion in place; DO NOT use donut cushion for pressure relief ---memory foam mattress topper in place - Limit sitting in chair ----try to lay down to completely offload wound twice a day to start - Continue aggressive nutritional support to assist wound healing - Go to the ED for any worsening of wounds or s/s infection (discussed with pt/son) - Follow up in wound center in 1 week I discussed the plan in detail with the patient and the patient verbalizes understanding and is in agreement. Nima Tillman APRN, DARK ROOM ATTENDANT, CWS Certified Automobile Mechanic Apprentice June 19, 2023 documented in this encounter [facility] 06-19-2023 Nurse Note Nursing Documentation- Harper Lift Transfer Pertinent Medical History: HTN, paraplegia due to syrinx of spinal cord, ostomy, chronic pain syndrome, disseminated nocardiosis (bacterial infection) and life-time need for Bactrim Wound Etiology according to patient: right butt wound for about a year, noticed it about a week after ostomy surgery Patient arrived via: motorized wheelchair with [employer] Mobile App Home Care Company/Nursing Facility: [facility] (used to be 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) Provider seeing patient: Nima Tillman CNP WOUND ASSESSMENT: Refer to Provider's Wound Assessment Note VASCULAR ASSESSMENT BY PROVIDER: per providers notes, pulses doppled Triphasic DP x2 Biphasic TP x2 CHF History: denies EDEMA: Right foot: 3+ Right calf: none Left foot : 3+ Left Calf: none Other: MEASUREMENTS: in CM Right Calf: 28.5 Right Ankle: 21.5 Left Calf: 30.3 Left Ankle: 23.2 Length: 48.5 WOUND PHOTOGRAPHY: YES x 4 DEBRIDEMENT PROCEDURE BY PROVIDER: Anesthetic Used: 2% lidogel applied per Roseann Soriano RN Wound #1-4 Other procedure: N/A Specimen collected: wound culture obtained 06/19/23 sacrum and right leg wounds WOUND TREATMENT PER MD ORDER: Wounds cleansed by mechanical debridement to allow provider to visualize wound base WOUND #1 LOCATION: Right ischium (May 2022) L: 1.7 cm x W: 1.5 cm x D: 0.2 cm Debridement by Provider: N/A Post Debridement Measurements: L:cm x W: cm x D:cm WOUND # 2 LOCATION: Left Sacrum (New 06/19/23) L: 4.5 cm x W: 4.0 cm x D: 0.1 cm DEBRIDEMENT by provider: N/A Post debridement measurements (if applicable) : L: cm x W: cm x D: cm Cleansed with: Vashe Applied to renée-wound skin: skin prep Applied to wound bed: silver alginate Covered and secured with: [place] SAP 6x7 Other: WOUND # 3 LOCATION: Right lateral Lower Leg (New 06/19/23) L: 3.5 cm x W: 2.5 cm x D: 0.1 cm DEBRIDEMENT by provider: N/A Post debridement measurements (if applicable) : L: cm x W: cm x D: cm WOUND # 4 LOCATION: Left Lateral Lower Leg (New 06/19/23) L: 0.6 cm x W: 1.1 cm x D: scab DEBRIDEMENT by provider: N/A Post debridement measurements (if applicable) : L: cm x W: cm x D: cm Cleansed with: vashe Applied to renée-wound skin: Vaseline Applied to wound bed: adaptic, silver alginate Covered and secured with: 4x4 gauze, ABD, conform, tape. Other: Area of concern: Multiple scattered DTI Left Buttocks 06/19/2023: COMPRESSION: Single layer tubi-child care coordinator size D to BLE SPECIAL NEEDS: Coordination of care - orders faxed to [facility] Emotional support N/A OR set-up N/A Physician Vice President N/A Incontinence needs N/A DISCHARGED in stable condition to: home via wheelchair with and son Global surgical period dates if applicable: N/A Plan: Follow-up in the wound center with Nima in 1 week Go to the ER if worsening wounds, signs and symptoms of infection Wound cultures obtained from sacrum and Right Leg wounds this visit, provider will notify you of results when available. Continue aggressive nutritional support for optimal wound healing Complete antibiotics as prescribed. CT ordered this visit. Call to schedule. Imaging Scheduling: Call [phone] to schedule your MRI or Cat Scan. Labs ordered this visit CMP, CBC with dif, prealbumin Do not use donut for pressure relief. Stay off your buttocks and continue to offload to prevent pressure on wounds. Rotate side to side to prevent pressure using pillows behind back. Paperwork filled out and submitted for medical record release to patients PCP. EDUCATION: The patient/family was instructed how to cleanse the wound(s). Visual demonstration on how to apply the dressing with teach back method. Signs & symptoms of infection were reviewed: Increased redness, swelling, pain, green/yellow drainage, fever and/or chills would all need to be evaluated by a Physician. Patient received typed home-going wound care instructions and has expressed intent to comply. OTHER EDUCATION: Nima discussed need for labs, wound cultures, new wound care, follow up, pressure relief to buttocks, CT ordered, Education performed regarding lymphedema/edema: Elevation of extremity above the heart for 30 minutes three times daily and as needed Exercise such as writing the ABC's with your toes in the air, walking and/or calf pumps Wearing compression as ordered by provider Diet controlling of sodium as instructed by provider Use of medication to help control edema. UNIVERSAL PROTOCOL / SAFETY CHECKLIST- N/A Current HBOT Status: Active or Complete - see screening below WOUND CENTER HYPERBARIC OXYGEN THERAPY SCREENING 1. Is the patient diabetic? (If No, skip to question 5) No 5. Has the patient been diagnosed with osteomyelitis? No 6. Has the patient had a previous skin graft or flap at the wound? No 7. Has the patient had or been offered vascular intervention/evaluation? No 8. Does the patient have a wound at an amputation site? No 9. Has the patient had radiation therapy at the site of the problem? No If Yes to ANY of questions 5-9, consult the Hyperbaric Center Leigh Ann Gastelum RN/alberto documented in this encounter [facility] 06-14-2023 Miscellaneous Notes Patient's [facility] nurse Sue called the wound center regarding worsening of patient's wounds, as well as a possible allergic reaction. This RN returned the patient's call and listened to Nurse Sue's concerns. Based on the information given, this RN advised that the patient be evaluated in an emergency room. Nurse Sue agreed and stated she would explain this to the patient and the patient's son. Nurse Sue had no further questions or concerns at this time. Miranda Matute RN documented in this encounter [facility] 06-07-2023 Miscellaneous Notes TCT to pt to discuss wound culture results. Due to pt drug allergies and interactions will treat with topical Gentamicin ointment to be applied to wound with each dressing change. Rx to be sent to pt pharmacy. Wound clinic staff nurse will call pt C to notify of change in wound care treatment. documented in this encounter [facility] 06-06-2023 Miscellaneous Notes Received call from Sue hunt at [facility]. Sue is asking if [facility] can change the dressing only 2 times per week since the patient's is going out of town for a few weeks. She typically does the 3rd dressing change of the week. Patient has Hydrofera Blue to wound. Sue is asking if the Hydrofera Blue can stay on longer for a few weeks? Will send message to Sara (RN0 since this RN will not be in the office not follow up. Sue also asking if hydrofera Blue could be reused on the patient. Called and spoke to the nurse communicating the wound center does not recommend reusing the hydrofera blue since the wounds are non healing. Sue agreed and would not reuse the product. Also communicated to the nurse that Nima is out of the office until tomorrow so her question about dressing changes 2x week would be addressed tomorrow. Sue thanked this RN for the call. documented in this encounter [facility] 05-31-2023 Note HNO ID: [id number] Author: Nima Tillman APRN.DARK ROOM ATTENDANT Service: ? 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 Pt reports he developed a wound on the right lower buttock/ischial area about one year ago. It was noticed after his colostomy surgery. Per pt and pt report, the wound was improving but then they noticed some increase in size of the wound in the past several weeks. Pt admittedly sits in his motorized scooter all day, and has been sitting outside quite a bit with the warmer weather. Pt son, also present for visit, states he has noticed that pt tends to lean to his right in the chair and leans over to the right when bending over in the chair to do some weeding/gardening in the yard. Pt does have a ROHO pressure reducing cushion for his scooter. Pt is accompanied by his and son for the clinic visit today. He has assistance of [facility] at home one a week. Location: right ischium Onset: May 2022 Aggravating factors: Immobility, Positioning, and Pressure Wound etiology: Pressure Associated pain with wound: No Relieving factors for wound pain: n/a Treatments: Current: bandage Past: n/a PAST MEDICAL HISTORY Diagnosis Date Bacterial meningitis e-coli Dyslipidemia Hypertension Myelopathy (HCC) Nocardia infection chronic Bactrim therapy Seizures (HCC) controlled on Neurontin Sleep apnea Subarachnoid hemorrhage (HCC) Syringomyelia (HCC) cervical and thoracic PAST SURGICAL HISTORY Procedure Laterality Date APPENDECTOMY HX 56 HERNIA REPAIR HX 94 Rt inguinal IANDD ABSC; COMPL OR MULTI 2006 lt leg IANDD ABSC; SMPL OR SGL 2006 Rt forearm KNEE ARTHROSCOP MENISCUS REPAIR MED/LAT 79, 80, 82, 84, 93 Rt knee LAMINECT 1 SEGMT UNI/REAL EA ADD C7 T1 PAST SURGICAL HISTORY OF drainage of SAH PAST SURGICAL HISTORY OF TUFTER HAND shunt placement PAST SURGICAL HISTORY OF SVC and IVC filter PAST SURGICAL HISTORY OF C7 synringo-subarachnoid shunt PAST SURGICAL HISTORY OF T1 shunt placement PAST SURGICAL HISTORY OF 06? bilateral cataract surgery REVSC OPN/PRQ TIB/GARTH W/ANGIOPLASTY UNI 02-05-14 ROTATOR CUFF REPAIR 97 Rt SHOULDER ARTHROSCOPY/SURGERY 87,96 lt TOTAL KNEE REPLACEMENT 00 Knee replacement, total Rt TRANSURETHRAL ELEC-SURG PROSTATECTOM 96 ALLERGIES ALLERGIES Allergen Reactions Cephlasporins [Ceph* Shortness of Breath Cephalexin Shortness of Breath Contrast Dye Hives CT contrast dye Heparin Other: See Comments Bleeds too easily Penicillins Rash, Itching CURRENT OUTPATIENT MEDICATIONS hydrocortisone (CORTEF) 20 mg tablet Take 20 mg by mouth once daily. metFORMIN (GLUCOPHAGE) 500 mg tablet Take 500 mg by mouth twice daily with meals. RANITIDINE HCL ORAL Take by mouth. topiramate (TOPAMAX) 25 mg tablet Take 1 tab twice daily x2 weeks and then increase to 2 tabs twice daily and continue. losartan-hydrochlorothiazide 50-12.5 mg per tablet Take 1 tablet by mouth once daily. carvedilol (COREG) 3.125 mg tablet Take 3.125 mg by mouth once daily. HYDROcodone-Acetaminophen 10-325 mg per tablet Take 1 tablet by mouth twice daily. morphine SR (ORAMORPH SR) 15 mg 12 hr tablet Take 15 mg by mouth twice daily. zolpidem (AMBIEN) 5 mg tablet Take 5 mg by mouth at bedtime as needed. pyridoxine (VITAMIN B-6) 100 mg tablet Take 100 mg by mouth once daily. MAGNESIUM OXIDE ORAL Take by mouth. gabapentin(NEURONTIN 300 MG CAP) take 600 mg in AM, 300 mg @ dinner time, and 600 mg at bedtime duloxetine hcl(CYMBALTA 30 MG CAP) Take one(1) capsule daily. FUROSEMIDE 40 MG TAB Take one(1) tablet daily. sulfamethoxazole/trimethoprim(BA CTRIM DS 160 MG-800 MG TAB) Take one(1) tablet daily docusate sodium(STOOL SOFTENER 100 MG CAP) Take one(1) capsule twice daily. sennosides(VEGETABLE LAXATIVE 8.6 MG TAB) two tabs daily multivitamins(DAILY MULTIVITAMIN TAB) Take one(1) tablet daily. GARLIC 500 MG CAP one cap daily WARFARIN 6 MG TAB Take one tab daily FAMILY HISTORY Problem Relation Age of Onset other (depression [Other]) Sister other (depression [Other]) Mother other (depression [Other]) Brother other (htn [Other]) Father other (alcoholism [Other]) Father Heart Father Hypertension Father Diabetes Father Alcohol/Drug Father Social History Tobacco Use Smoking status: Former Tobacco comments: quit smoking in the 1950s Substance Use Topics Alcohol use: (more content not included)... [facility] 05-31-2023 History of Presen t illness Narrative Images from the original note were not included. 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 Pt reports he developed a wound on the right lower buttock/ischial area about one year ago. It was noticed after his colostomy surgery. Per pt and pt report, the wound was improving but then they noticed some increase in size of the wound in the past several weeks. Pt admittedly sits in his motorized scooter all day, and has been sitting outside quite a bit with the warmer weather. Pt son, also present for visit, states he has noticed that pt tends to lean to his right in the chair and leans over to the right when bending over in the chair to do some weeding/gardening in the yard. Pt does have a ROHO pressure reducing cushion for his scooter. Pt is accompanied by his and son for the clinic visit today. He has assistance of [facility] at home one a week. Location: right ischium Onset: May 2022 Aggravating factors: Immobility, Positioning, and Pressure Wound etiology: Pressure Associated pain with wound: No Relieving factors for wound pain: n/a Treatments: Current: bandage Past: n/a PAST MEDICAL HISTORY Diagnosis Date Bacterial meningitis e-coli Dyslipidemia Hypertension Myelopathy (HCC) Nocardia infection chronic Bactrim therapy Seizures (HCC) controlled on Neurontin Sleep apnea Subarachnoid hemorrhage (HCC) Syringomyelia (HCC) cervical and thoracic PAST SURGICAL HISTORY Procedure Laterality Date APPENDECTOMY HX 56 HERNIA REPAIR HX 94 Rt inguinal I&D ABSC; COMPL OR MULTI 2005 lt leg I&D ABSC; SMPL OR SGL 2005 Rt forearm KNEE ARTHROSCOP MENISCUS REPAIR MED/LAT 79, 80, 82, 84, 93 Rt knee LAMINECT 1 SEGMT UNI/REAL EA ADD , 08 C7 T1 PAST SURGICAL HISTORY OF drainage of SAH PAST SURGICAL HISTORY OF TUFTER HAND shunt placement PAST SURGICAL HISTORY OF SVC and IVC filter PAST SURGICAL HISTORY OF C7 synringo-subarachnoid shunt PAST SURGICAL HISTORY OF T1 shunt placement PAST SURGICAL HISTORY OF 06? bilateral cataract surgery REVSC OPN/PRQ TIB/GARTH W/ANGIOPLASTY UNI 02-05-14 ROTATOR CUFF REPAIR 97 Rt SHOULDER ARTHROSCOPY/SURGERY 87,96 lt TOTAL KNEE REPLACEMENT 00 Knee replacement, total Rt TRANSURETHRAL ELEC-SURG PROSTATECTOM 96 ALLERGIES ALLERGIES Allergen Reactions Cephlasporins [Ceph* Shortness of Breath Cephalexin Shortness of Breath Contrast Dye Hives CT contrast dye Heparin Other: See Comments Bleeds too easily Penicillins Rash, Itching CURRENT OUTPATIENT MEDICATIONS hydrocortisone (CORTEF) 20 mg tablet Take 20 mg by mouth once daily. metFORMIN (GLUCOPHAGE) 500 mg tablet Take 500 mg by mouth twice daily with meals. RANITIDINE HCL ORAL Take by mouth. topiramate (TOPAMAX) 25 mg tablet Take 1 tab twice daily x2 weeks and then increase to 2 tabs twice daily and continue. losartan-hydrochlorothiazide 50-12.5 mg per tablet Take 1 tablet by mouth once daily. carvedilol (COREG) 3.125 mg tablet Take 3.125 mg by mouth once daily. HYDROcodone-Acetaminophen 10-325 mg per tablet Take 1 tablet by mouth twice daily. morphine SR (ORAMORPH SR) 15 mg 12 hr tablet Take 15 mg by mouth twice daily. zolpidem (AMBIEN) 5 mg tablet Take 5 mg by mouth at bedtime as needed. pyridoxine (VITAMIN B-6) 100 mg tablet Take 100 mg by mouth once daily. MAGNESIUM OXIDE ORAL Take by mouth. gabapentin(NEURONTIN 300 MG CAP) take 600 mg in AM, 300 mg @ dinner time, and 600 mg at bedtime duloxetine hcl(CYMBALTA 30 MG CAP) Take one(1) capsule daily. FUROSEMIDE 40 MG TAB Take one(1) tablet daily. sulfamethoxazole/trimethoprim(BA CTRIM DS 160 MG-800 MG TAB) Take one(1) tablet daily docusate sodium(STOOL SOFTENER 100 MG CAP) Take one(1) capsule twice daily. sennosides(VEGETABLE LAXATIVE 8.6 MG TAB) two tabs daily multivitamins(DAILY MULTIVITAMIN TAB) Take one(1) tablet daily. GARLIC 500 MG CAP one cap daily WARFARIN 6 MG TAB Take one tab daily FAMILY HISTORY Problem Relation Age of Onset other (depression [Other]) Sister other (depression [Other]) Mother other (depression [Other]) Brother other (htn [Other]) Father other (alcoholism [Other]) Father Heart Father Hypertension Father Diabetes Father Alcohol/Drug Father Social History Tobacco Use Smoking status: Former Tobacco comments: quit smoking in the 1950s Substance Use Topics Alcohol use: Yes Comment: a glass of wine at bedtime, occasional bourbon or beer Drug use: No REVIEW OF SYSTEM: GENERAL: No weight loss, malaise or fevers RESPIRATORY: Negative for cough, hemoptysis, wheezing, COPD, dyspnea or shortness of breath CARDIOVASCULAR: Negative for chest pain, leg swelling, CHF or palpitations. Positive HTN GI: No nausea, vomiting, or diarrhea. Positive colostomy MUSCULOSKELETAL: Negative for joint pain or swelling, back pain or muscle pain. Positive paraplegia. SKIN: Negative for lesions, rash, and itching. Positive ulcer, right ischium HEMATOLOGY/LYMPHOLOGY: Negative for prolonged bleeding, bruising easily or swollen nodes ENDOCRINE: Negative for cold or heat intolerance, polyuria, polydipsia and goiter NEURO: paraplegia Nutrition Diet:regular Supplement: Prostat, MVI Appetite: good PHYSICAL EXAM: BP 160/74 / Pulse 58 / Resp 16 / Temp 97.3 F / SpO2 97% General appearance: Well appearing, alert, in no acute distress, well-hydrated, well nourished. and wheelchair bound. Skin: Skin color, texture, turgor normal, no suspicious rashes or lesions. Positive ulcer, right ischium (see wound assessment) Head: Normocephalic, no masses, lesions, tenderness or abnormalities Eyes: Anicteric sclera. Pupils are equally round and reactive to light. Extraocular movements are intact. Lungs: normal respiratory rate and rhythm Heart: regular rate and rhythm Abdomen: soft, nontender. Colostomy appliance intact Extremities: Edema: none Musculoskeletal: No joint swelling, deformity, or tenderness Peripheral pulses: Not examined Neuro: Oriented X 3. Paraplegic. WOUND ASSESSMENT Wound 1: Location: right ischium Type: pressure injury Stage: Stage 3 Exposed structure:None Progress: Initial visit Wound measurements (cm): 2.2 x 1.5 x 0.3 Full thickness- Yes Tunneling/undermining: none Wound tissue color: 85% red and 15% slough Periwound tissue: macerated Drainage: serosanguinous, medium amount Drainage odor: none PROCEDURE: Excisional Sharp Debridement- right ischium A time out was performed immediately prior to procedure start with the SECURITY PATROL DRIVER and team , correctly identifying the patient name, date of , procedure, anatomy, patient position, safety precautions, and procedure-specific equipment needs. The procedure was explained to the patient including the risks, benefits and alternatives. The risks, including but not limited to infection and bleeding, were reviewed by the performing provider and the patient agrees to undergo the procedure. Written consent was obtained . With appropriate consent the wound was sharply debrided down to and including subcutaneous tissue Total tissue debrided Less than 20 sq.cm Using a sterile curette the wound was debrided. Patient required pre-medication: Lidogel 2% Patient expressed pain during procedure: no Scale: 0 EBL: none Wound measurement prior to debridement: 2.2 x 1.5 x 0.3 Wound measurement post debridement: 2.0 x 1.5 x 0.2 Type of tissue debrided: ( slough, necrotic, devitalized) Tissue at wound bed after debridment: red Dressing applied after debridement: yes Patient tolerated procedure well without apparent complications. DATA PHOTOGRAPHY: yes A photo was taken of the patient's wound(s). Photos can be found under the [facility] images tab on [facility]. The purpose of the photo(s) is to optimize the patient's medical care and allow a visual aid to their wound evaluation and progress. The photo(s) are not intended for publication, education, or research. If the use of the photo is desired in any additional way, other than for the above outlined purposes, then an additional consent for the intended use will need to be obtained by the requesting provider. Photo was taken of: right ischium Verbal consent was obtained: yes Sodium (mmol/L) Date Value 11/02/2009 141 Potassium (mmol/L) Date Value 11/02/2009 3.8 CO2 (mmol/L) Date Value 11/02/2009 27 BUN (mg/dL) Date Value 10/21/2015 20 11/02/2009 21 AST (U/L) Date Value 11/02/2009 24 ALT (U/L) Date Value 11/02/2009 36 Bilirubin, Total (mg/dL) Date Value 11/02/2009 0.4 Alkaline Phosphatase (U/L) Date Value 11/02/2009 109 MICROBIOLOGY: Reviewed IMAGING: Reviewed IMPRESSION/RECOMMENDATIONS The patient's age, altered mobility, and other co morbidities are likely to impact wound and skin integrity Additional impediments to healing Diabetic: No Anticoagulation: Clopidogrel Antibiotics: Bactrim Steroids: No (L89.313) Pressure injury of right ischium, stage 3 (HCC) Plan: - Wound culture for C&S d/t worsening, nonhealing wound - Cleanse wound and periwound skin with Vashe solution and gauze, then rinse with normal saline. Pat dry. Apply saline moistened Hydrofera blue classic to the wound. Cover with [place] SAP dressing. Change dressing 3x/week and prn. -Turn/reposition frequently in bed -Frequent weight shifts when seated -Pressure reduction devices as needed ---ROHO chair cushion in place ---memory foam mattress topper in place - Limit sitting in chair ----try to lay down to completely offload wound twice a day to start - Aggressive nutritional support to assist wound healing - Follow up in wound center in 3 weeks I discussed the plan in detail with the patient and the patient verbalizes understanding and is in agreement. Nima Tillman APRN, DARK ROOM ATTENDANT, CWS Certified [employer] Mechanic Apprentice May 31, 2023 documented in this encounter [facility] 05-31-2023 Instructions Tammy Urena RN - 05/31/2023 1:26 PM EDT WOUND CARE INSTRUCTIONS- Skyler Rojas Wound location: Right ischium [facility] FAX: 1. Wash your hands with soap and water before and after wound care. 2. Gather all supplies needed. 3. Wash wound with Dial soap and water. Pat dry. Apply Vashe soak: apply Vashe moistened gauze to the wound and allow to soak for 5-10 minutes, then remove. Rinse the wound with normal saline after the Vashe soak and wipe the wound clean 4. Apply saline moistened Hydrofera Blue Classic (cut slightly larger than the wound) to the wound 5. Cover with 4x4 [place] SAP (silicone bordered bandage) 6. Change your dressing 3 times per week Position changes every 2 hours - lay in recliner on your side, get into bed and lay on your sides, use pillow to help keep you off of the wound To give your wound the best chance to heal: - Eat three balanced meals daily focusing on the protein - Control swelling by elevating the extremity above your heart - Complete your wound care instructions - Vitamin C 500 mg twice daily - Multiple Vitamin Daily - Drink a protein shake daily Report any of the following changes [phone] or go to the Emergency Department: Fever or chills Increased drainage Green or yellow drainage Foul odor Increased pain Hardness around the wound Redness, warmth or swelling of the surrounding tissue Color change to the wound Plan: Follow-up in the wound center with Nima in 3 weeks Wound culture obtained today Continue aggressive nutritional support for optimal wound healing Imaging Scheduling: Call [phone] to schedule your MRI or Cat Scan. Nima Tillman, JAMAL/tr/lt documented in this encounter [facility] 05-31-2023 Nurse Note Nursing Documentation Pertinent Medical History: HTN, paraplegia due to syrinx of spinal cord, ostomy, chronic pain syndrome, disseminated nocardiosis (bacterial infection) and life-time need for Bactrim Wound Etiology according to patient: right butt wound for about a year, noticed it about a week after ostomy surgery Patient arrived via: motorized wheelchair with [employer] [facility]/Nursing Facility: [facility] (used to be [place] 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) Provider seeing patient: Nima Tillman CNP WOUND ASSESSMENT: Refer to Provider's Wound Assessment Note VASCULAR ASSESSMENT BY PROVIDER: N/A CHF History: denies EDEMA: N/A wound located on right ischium Right foot: Right calf: Left foot : Left Calf: Other: MEASUREMENTS: in CM N/A wound located on right ischium Right Calf: Right Ankle: Left Calf: Left Ankle: Length: WOUND PHOTOGRAPHY: YES x 2 DEBRIDEMENT PROCEDURE BY PROVIDER: Anesthetic Used: 2% lidogel applied per Crisotbal Hernandez RN Wound #1 Other procedure: N/A Specimen collected: wound culture obtained 05/31/23 WOUND TREATMENT PER MD ORDER: Wounds cleansed by mechanical debridement to allow provider to visualize wound base WOUND #1 LOCATION: Right ischium (May 2022) L: 2.2 cm x W: 1.5 cm x D: 0.3 cm wound culture obtained 05/31/23 Debridement by Provider: SQ Post Debridement Measurements: L: 2.0 cm x W: 1.5 cm x D: 0.2cm Cleansed with: Vashe, followed by saline rinse Applied to renée-wound skin: skin prep Applied to wound bed: hydrofera blue classic Covered and secured with: [place] SAP 4x4 Other: COMPRESSION: N/A SPECIAL NEEDS: Coordination of care - orders faxed to [facility] Emotional support N/A OR set-up N/A Physician Vice President N/A Incontinence needs N/A DISCHARGED in stable condition to: home via wheelchair with and son Global surgical period dates if applicable: N/A PLAN/ORDERS: Follow-up in the wound center with Nima in 3 weeks Wound culture obtained today Continue aggressive nutritional support for optimal wound healing Imaging Scheduling: Call [phone] to schedule your MRI or Cat Scan. EDUCATION: The patient/family was instructed how to cleanse the wound(s). Visual demonstration on how to apply the dressing with teach back method. Signs & symptoms of infection were reviewed: Increased redness, swelling, pain, green/yellow drainage, fever and/or chills would all need to be evaluated by a Physician. Patient received typed home-going wound care instructions and has expressed intent to comply. OTHER EDUCATION: Nima discussed need for wound debridement, consent obtained. Also discussed the need to relieve pressure on the wound to promote healing, nutritional needs & new wound care. Education performed regarding lymphedema/edema: Elevation of extremity above the heart for 30 minutes three times daily and as needed Exercise such as writing the ABC's with your toes in the air, walking and/or calf pumps Wearing compression as ordered by provider Diet controlling of sodium as instructed by provider Use of medication to help control edema. UNIVERSAL PROTOCOL / SAFETY CHECKLIST Procedure to be Performed: Serial Sharp Debridement of right ischial wound Sign In: 1400 A Moment of CARE was completed. Personnel directly involved with the procedure wore the appropriate PPE (Personal Protective Equipment). Patient/Surrogate Stated/Verified: PATIENT VERIFIED(optional for EMERGENT procedures): Patient name, Date of , Relevant allergies, and The intended procedure Time Out Communication: 5114 Intended patient and procedure match the source documents. Consent documented and matches the intended procedure. Sign Out: 1415 SIGN OUT (optional for EMERGENT procedures): All specimen containers correctly labeled. Tammy Urena RN/lt Current HBOT Status: Active or Complete - see screening below [facility]ENTER HYPERBARIC OXYGEN THERAPY SCREENING 1. Is the patient diabetic? (If No, skip to question 5) No 5. Has the patient been diagnosed with osteomyelitis? No 6. Has the patient had a previous skin graft or flap at the wound? No 7. Has the patient had or been offered vascular intervention/evaluation? No 8. Does the patient have a wound at an amputation site? No 9. Has the patient had radiation therapy at the site of the problem? No If Yes to ANY of questions 5-9, consult the [facility] Tammy Urena RN/ documented in this encounter [facility] documented [facility] Diagnosis Wound infection- Primary Posttraumatic wound infection not elsewhere classified Pressure injury of deep tissue of sacral region Skin ulcer of right lower leg, limited to breakdown of skin (HCC) Skin ulcer of left lower leg, limited to breakdown of skin (HCC) Pressure injury of right ischium, stage 3 (HCC) [facility] Pressure injury of sacral region, unstageable (HCC)- Primary Skin ulcer of right lower leg, limited to breakdown of skin (HCC) Skin ulcer of left lower leg, limited to breakdown of skin (HCC) Pressure injury of right ischium, stage 3 (HCC) [facility] Diagnosis Pressure injury of right ischium, stage 3 (HCC)- Primary Pressure injury of sacral region, stage 2 (HCC) Skin ulcer of right lower leg, limited to breakdown of skin (HCC) Skin ulcer of left lower leg, limited to breakdown of skin (HCC) documented [facility] Diagnosis Pressure injury of right ischium, stage 3 (HCC)- Primary Pressure injury of sacral region, stage 2 (HCC) Skin ulcer of right lower leg, limited to breakdown of skin (HCC) documented in this encounter [facility] Summary Purpose Family History No Family History Records FoundNo Family History Records FoundNo Family History Records FoundNo Family History Records Found Advance Directives No Advanced Directives Records FoundNo Advanced Directives Records FoundNo Advanced Directives Records FoundNo Advanced Directives Records Found Reason for Referral Specialty Diagnoses / Procedures Referred By Contac t Referred To Contact CT IMAGING Diagnoses Wound infection Pressure injury of deep tissue of sacral region Procedures CT PELVIS WO IVCON CT PELVIS W/O CONTRAST MATERIAL Nima Tillman, SECURITY PATROL DRIVER.DARK ROOM ATTENDANT [address] [place] [address] Ct Imaging Referral ID Status Reason Start Date Expiration Date Visits Requested Visits Authorized [id number] Authorized Auto-Generat ed Referral 06/19/2023 07/18/2024 1 1 Additional Source Comments (unrecognized sect ion and content) No Status Records FoundNo Status Records FoundNo Status Records FoundNo Status Records Found INFORMATION SOURCE (unrecogn ized section and content) DATE CREATED AUTHOR AUTHOR'S ORGANIZ ATION 08/25/2020 [facility] DATE CREATED AUTHOR AUTHOR'S ORGANIZ ATION 07/05/2023 [facility] DATE CREATED AUTHOR AUTHOR'S ORGANIZ ATION 08/18/2023 [facility] Source Comments (unrecognize d section and content) In the event this informatio n is protected by the Federal Confidentiality of Alcohol and Drug Abuse Patient Records regulations: The Federal rules restrict any use of the information to criminally investigate or prosecute any alcohol or drug abuse patient.[facility] the event this information is protected by the Federal Confidentiality of Alcohol and Drug Abuse Patient Records regulations: The Federal rules restrict any use of the information to criminally investigate or prosecute any alcohol or drug abuse patient.[facility] the event this information is protected by the Federal Confidentiality of Alcohol and Drug Abuse Patient Records regulations: The Federal rules restrict any use of the information to criminally investigate or prosecute any alcohol or drug abuse patient.[facility] the event this information is protected by the Federal Confidentiality of Alcohol and Drug Abuse Patient Records regulations: The Federal rules restrict any use of the information to criminally investigate or prosecute any alcohol or drug abuse patient.[facility] the event this information is protected by the Federal Confidentiality of Alcohol and Drug Abuse Patient Records regulations: The Federal rules restrict any use of the information to criminally investigate or prosecute any alcohol or drug abuse patient.[facility] the event this information is protected by the Federal Confidentiality of Alcohol and Drug Abuse Patient Records regulations: The Federal rules restrict any use of the information to criminally investigate or prosecute any alcohol or drug abuse patient.[facility] the event this information is protected by the Federal Confidentiality of Alcohol and Drug Abuse Patient Records regulations: The Federal rules restrict any use of the information to criminally investigate or prosecute any alcohol or drug abuse patient.[facility] the event this information is protected by the Federal Confidentiality of Alcohol and Drug Abuse Patient Records regulations: The Federal rules restrict any use of the information to criminally investigate or prosecute any alcohol or drug abuse patient.[facility] the event this information is protected by the Federal Confidentiality of Alcohol and Drug Abuse Patient Records regulations: The Federal rules restrict any use of the information to criminally investigate or prosecute any alcohol or drug abuse patient.[facility] Reason for Visit (unrecogniz ed section and content) Reason Comments Orders Reason Comments Results Orders Reason Comments Patient Question Patient Update See note Reason Comments Wound Check Coccyx, ischium, Rig ht and Left Legs Reason Comments Wound Check Ischium, sacrum, low er legs Reason Comments Wound Check Bilateral lower extr emities and right ischium and left sacrum, buttocks Reason Comments Wound Check Buttock & Leg wounds Reason Comments Wound Check Bilateral legs & But tocks wounds Care Teams (unrecognized sec tion and content) Senior Health Physics Technician Relationship Specialty Start Date End Date Josette Melendez MD [address] [place] [address] PCP - General Family Medicine 09/25/17 Senior Health Physics Technician Relationship Specialty Start Date End Date Josette Melendez MD [address], [place] [id number] PCP - General Family Medicine 09/25/17 Senior Health Physics Technician Relationship Specialty Start Date End Date Josette Melendez MD [address], [place] [address] PCP - General Family Medicine 09/25/17 Senior Health Physics Technician Relationship Specialty Start Date End Date Josette Melendez MD [address] [facility] [place] [place] [address] PCP - General Family Medicine 09/25/17 Senior Health Physics Technician Relationship Specialty Start Date End Date Josette Melendez MD [address] [facility] [place] [address] PCP - General Family Medicine 09/25/17 Senior Health Physics Technician Relationship Specialty Start Date End Date Josette Melendez MD [address] [place] [address] PCP - General Family Medicine 09/25/17 FOR RECORDS PERTAINING TO PATIENTS WHO ARE OR HAVE BEEN ENROLLED IN A CHEMICAL DEPENDENCY/SUBSTANCEABUSE PROGRAM, SOME INFORMATION MAY BE OMITTED. This clinical summary was aggregated from multiple sources. Caution should be exercised in using it in the provision of clinical care. This summary normalizes information from multiple sources, and as a consequence, information in this document may materially change the coding, format and clinical context of patient data. In addition, data may be omitted in some cases. CLINICAL DECISIONS SHOULD BE BASED ON THE PRIMARY CLINICAL RECORDS. [employer] provides no warranty or guarantee of the accuracy or completeness of information in this document.
[2023-09-29 10:47] LABS: Absolute Lymphocyte Count 0.77 X10^3/uL (0.83-4.51); Absolute Neutrophil Count 9.1 X10^3/uL (2.0-7.7); Basophil# 0.02 X10^3/uL; Basophil% 0.2 % (0-1); Eosinophil# 0.02 X10^3/uL; Eosinophils% 0.2 % (0-5); Hemoglobin 10.8 g/dL (13.0-16.5); Lymphocyte # 0.77 X10^3/ul (0.83-4.51); Lymphocyte % 7.3 % (19-41); Mean Corpuscular Hgb 31.8 pg (27.0-32.0); Mean Corpuscular Volume 105.9 fL (80-94); Mean Platelet Vol. 9.3 fl (6.2-12.0); Monocyte# 0.66 X10^3/uL; Monocyte% 6.2 % (0-10); NRBC Flagged by Analyzer 0 % (0-5); Neutrophil # 9.08 X10^3/uL (2.7-7.7); Neutrophil % 85.6 % (47-70); Platelet Count 136 K/mm3 (150-450); RBC Distribution Width CV 12.8 % (11.6-14.6); RBC Distribution Width SD 50.2 fl (35.1-43.9); White Blood Count 10.6 K/mm3 (4.4-11.0)
[2023-09-29 10:59] LABS: ALB/GLOB Ratio 0.5 RATIO (0.9-2.4); AST(SGOT) 30 U/L (15-37); Alanine Aminotransfer ALT/SGPT 42 U/L (16-61); Albumin, Serum 2.2 g/dL (3.2-5.0); Alkaline Phosphatase 107 U/L (45-117); Anion Gap 5 (5-15); BUN 34 mg/dL (7-18); BUN/Creat Ratio 35.7 RATIO (10-20); Calcium,Total 8.8 mg/dL (8.5-10.1); Chloride 108 mmol/L (98-107); Creatinine, Serum 0.95 mg/dL (0.70-1.30); EST Glomerular Filtration Rate 80 mL/min (>60); Est Glom Filt Rate - Afr Amer 96 mL/min (>60); Globulin 4.8 g/dL (2.2-4.2); Glucose 139 mg/dL (74-106); Potassium 3.8 mmol/L (3.5-5.1); Sodium Level 138 mmol/L (136-145)
== END ==
LOC: OLS.WCC 05:00
PROVIDERS: PCP Family Medicine; Visit Provider Family Medicine
DX: I10 Essential (primary) hypertension (principal); E78.5 Hyperlipidemia, unspecified; E03.9 Hypothyroidism, unspecified; Z79.899 Other long term (current) drug therapy
CPT/HCPCS: 36415; 80053; 81001; 85025; 87077; 87086; 87088; 87186

== ENCOUNTER → 2023-10-11 | Outpatient (REF) | payer MEDICARE, SELFPAY ==
[2023-10-11 08:58] LABS: Lactic Acid 1.2 mmol/L (0.4-1.9)
[2023-10-11 09:24] LABS: Color, Urine Yellow (Yellow); Glucose, Dipstick Normal (Normal); Ketone-Dipstick 5 mg/dl (Negative); Leukocyte Esterase-Dipstick 500 /ul (Negative); Nitrite-Dipstick Positive (Negative); Occult Blood-Urine 150 /ul (Negative); Protein-Dipstick 30 mg/dl (Negative); Urine Bilirubin Dipstick Negative (Negative); Urine Clarity Sl. Cloudy (Clear); Urine Urobilinogen Normal (Normal)
[2023-10-11 09:25] LABS: Absolute Lymphocyte Count 1.22 X10^3/uL (0.83-4.51); Absolute Neutrophil Count 9.2 X10^3/uL (2.0-7.7); Basophil# 0.02 X10^3/uL; Basophil% 0.2 % (0-1); Eosinophil# 0.08 X10^3/uL; Eosinophils% 0.7 % (0-5); Hematocrit 36.2 % (40-54); Hemoglobin 10.9 g/dL (13.0-16.5); Lymphocyte # 1.22 X10^3/ul (0.83-4.51); Lymphocyte % 11.2 % (19-41); Mean Corp Hgb Conc 30.1 g/dL (32-36); Mean Corpuscular Hgb 30.5 pg (27.0-32.0); Mean Corpuscular Volume 101.4 fL (80-94); Mean Platelet Vol. 10.5 fl (6.2-12.0); Monocyte# 0.37 X10^3/uL; Monocyte% 3.4 % (0-10); NRBC Flagged by Analyzer 0 % (0-5); Neutrophil # 9.15 X10^3/uL (2.7-7.7); Platelet Count 189 K/mm3 (150-450); RBC Distribution Width CV 13.5 % (11.6-14.6); RBC Distribution Width SD 50.4 fl (35.1-43.9); Red Blood Count 3.57 M/mm3 (4.6-6.2); White Blood Count 10.9 K/mm3 (4.4-11.0)
[2023-10-11 09:43] LABS: ALB/GLOB Ratio 0.4 RATIO (0.9-2.4); AST(SGOT) 30 U/L (15-37); Alanine Aminotransfer ALT/SGPT 51 U/L (16-61); Albumin, Serum 2.3 g/dL (3.2-5.0); Alkaline Phosphatase 106 U/L (45-117); Anion Gap 7 (5-15); BUN 34 mg/dL (7-18); Calcium,Total 8.9 mg/dL (8.5-10.1); Chloride 115 mmol/L (98-107); Creatinine, Serum 0.83 mg/dL (0.70-1.30); EST Glomerular Filtration Rate 94 mL/min (>60); Est Glom Filt Rate - Afr Amer 113 mL/min (>60); Globulin 5.2 g/dL (2.2-4.2); Glucose 129 mg/dL (74-106); Potassium 3.4 mmol/L (3.5-5.1); Protein, Total 7.5 g/dL (6.4-8.2); Sodium Level 149 mmol/L (136-145)
== END ==
LOC: OLS.WCC 05:00
PROVIDERS: PCP Family Medicine; Visit Provider Family Medicine
DX: R41.82 Altered mental status, unspecified (principal); N40.0 Benign prostatic hyperplasia without lower urinary tract symptoms; N39.0 Urinary tract infection, site not specified; I10 Essential (primary) hypertension; Z79.899 Other long term (current) drug therapy
CPT/HCPCS: 36415; 80053; 81002; 83605; 85025; 87077; 87086; 87088; 87186

== ENCOUNTER 2023-10-13 12:47 | Inpatient (IN) | payer MEDICARE, SELFPAY ==
[2023-10-13] VITALS (7 sets, daily range): BP systolic 138–163; BP diastolic 62–99; PULSE 79–86; RESP 16–20; TEMP 36.4–36.8; O2SAT 95–98; BMI 17.2; BMI 21.4
--- NOTE | 2023-10-13 13:59 | CT_ITS ---
STUDY: CT BRAIN WITHOUT CONTRAST REASON FOR EXAM: Male, 88 years old. Altered mental status, difficulty speaking RADIATION DOSAGE (If Supplied By Facility): CTDIvol = ( 44.99 ) mGy, DLP = ( 829.85 ) mGycm TECHNIQUE: Transaxial CT imaging of the brain was performed without administration of intravenous contrast material. Individualized dose optimization techniques were used for this CT. COMPARISON: Comparison is made with prior study dated August 24, 2020. FINDINGS: A right-sided shunt is seen with the tip in the right lateral ventricle posteriorly. Saunemin hole is seen in the right frontal bone. There is mild cerebral atrophy with widening of the extra-axial spaces and ventricular dilatation. There are areas of decreased attenuation within the white matter tracts of the supratentorial brain, consistent with microvascular disease changes. Stable focal encephalomalacia in the posterior right parietal occipital lobe. Normal basal ganglia and thalami. Normal brainstem. Normal cerebellum. There is no intracranial hemorrhage. There are no findings of an acute ischemic infarction. Normal visualized paranasal sinuses. CT/Brain/Head without Contrast IMPRESSION: Chronic involutional changes of the brain. Stable examination. Electronically Signed: Mike Cha MD at 14:40 EST ,
--- NOTE | 2023-10-13 14:19 | EDS_ITS ---
HPI History of Present Illness Chief Complaint: Alt LOC Detail of Chief Complaint: Worsening altered mental status past week Informant: spouse/S.O. and PCP Onset/Context/Timing Onset: - (He said since his surgery according to the ) Context: Sudden Onset Timing: Continuous Quality: Difficulty communicating per Location: Uncertain Current Severity: Severe Maximum Severity: Severe Worsened by: Unknown Relieved by: Nothing Associated Symptoms Associated Symptoms: Unable to determine Narrative Narrative: Patient is an 88-year-old male who presents to the emergency room because of worsening mental status. He was admitted for cholelithiasis with chronic cholecystitis and common bile duct stone. Admitted over the and discharged September 06 to a nursing facility. He subsequently developed COVID. His speech and mental status worsened when he was diagnosed with COVID. He also had a urinary tract infection and received course of antibiotics. Presently patient does not know his age. He does not know the month or where he is at. He answers to his name. His speech is garbled and there is problem with fluency. Per this has been an issue since August. History is limited due to the fact the patient cannot communicate effectively or follow simple directions. 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 Non-STEMI (non-ST elevated myocardial infarction) PAD (peripheral artery disease) Paraplegia Pressure ulcer Shortness of breath Subarachnoid hemorrhage (~2003) Syringomyelia Syringomyelia Therapeutic opioid-induced constipation (OIC) Uses wheelchair Wears glasses Home Medications furosemide 40 mg tablet 40 mg PO DAILY diuretic 08/11/18 [History Last Taken 10/13/23] atorvastatin 40 mg tablet (Lipitor) 40 mg PO QHS CHOLESTEROL 11/06/18 [History Last Taken 10/12/23] multivitamin,pr-lsvz-tymipjyg 27 mg-0.4 mg tablet 1 tab PO DAILY SUPPLEMENT 11/06/18 [History Last Taken 10/13/23] pyridoxine (vitamin B6) 100 mg tablet 100 mg PO DAILY SUPPLEMENT 11/06/18 [History Last Taken 10/13/23] tamsulosin 0.4 mg capsule 0.4 mg PO 1700 BPH 11/06/18 [History Last Taken 10/12/23] carvedilol 3.125 mg tablet 3.125 mg PO QHS heart 02/06/20 [History Last Taken 10/12/23] cyclobenzaprine 5 mg tablet 5 mg PO QHS pain 02/06/20 [History Last Taken 10/10/23] isosorbide mononitrate 10 mg tablet 10 mg PO QHS to dilate blood vessels in legs 02/06/20 [History Last Taken 10/12/23] losartan 25 mg tablet 12.5 mg PO DAILY stop if low bp per Eris Melendez MD 02/06/20 [History Last Taken 10/13/23] sulfamethoxazole 800 mg-trimethoprim 160 mg tablet (Bactrim DS) 1 tab PO DAILY to prevent Nocardia UTI 02/06/20 [History Last Taken 10/13/23] ascorbic acid (vitamin C) 1,000 mg tablet 500 mg PO BID supplement 10/12/20 [History Last Taken 10/13/23] cranberry fruit concentrate 250 mg chewable tablet (Azo Cranberry) 500 mg PO DAILY bladder 10/12/20 [History Last Taken 10/13/23] levothyroxine 50 mcg tablet 50 mcg PO DAILY thyroid 10/12/20 [History Last Taken 08/30/23] gabapentin 300 mg capsule 300 mg PO DAILY nerve pain 06/23/23 [History Last Taken 10/13/23] magnesium oxide 500 mg capsule 250 mg PO BID supplement 06/23/23 [History Last Taken 10/13/23] lithium carbonate 150 mg capsule 150 mg PO TID 08/17/23 [History Last Taken 10/13/23] clopidogrel 75 mg tablet (Plavix) 75 mg PO DAILY blood thinner #30 tabs 09/01/23 [Rx Last Taken 10/13/23] methadone 5 mg tablet See Rx Instructions .Route .COMPLEX Check with primary doctor 14 days #90 tabs 09/05/23 [Rx Last Taken 10/13/23] potassium chloride 20 mEq tablet,extended release 20 meq PO DAILY 09/13/23 [History Last Taken 10/13/23] amino acids-protein hydrolysate 17 gram-100 kcal/30 mL liquid packet (Pro-Stat AWC) 30 ea PO DAILY 10/13/23 [History Last Taken Unknown] doxepin 25 mg capsule 25 mg PO QHS 10/13/23 [History Last Taken 10/12/23] sennosides 8.6 mg tablet (Senna Laxative) 17.2 mg PO DAILY 10/13/23 [History Last Taken 10/13/23] topiramate 50 mg tablet 50 mg PO Q12H 10/13/23 [History Last Taken 10/13/23] Allergy/AdvReac Type Severity Reaction Status Date / Time Cephalosporins Allergy Intermediate Laryngospas Verified 10/13/23 14:14 ms Penicillins Allergy Intermediate Rash Verified 10/13/23 14:14 Iodinated Contrast Media Allergy Rash Verified 10/13/23 14:14 [CONTRASTS] heparin AdvReac Intermediate bruises Verified 10/13/23 14:14 easily Family History Father Heart disease Hypertension Sister Hypertension Brother Hypertension Surgical History History of appendectomy History of brain shunt (~2003) History of laminectomy History of partial colectomy (~04/2022) History of total right knee replacement (TKR) Hx of tracheostomy S/P cholecystectomy S/P IVC filter S/P SOFTWARE PRODUCT MANAGER shunt Social History Smoking Status: Never smoker alcohol intake: current alcohol intake frequency: a few times a week substance use type: does not use caffeine: Yes Type: coffee Number of servings: 2 ROS ROS ED Review of Systems ROS Unobtainable: due to mental status EXAM Physical Exam Const Vital Signs: 10/13/23 12:49 10/13/23 14:47 10/13/23 16:00 Temperature 98.1 F Temperature Source Oral Pulse Rate 86 85 82 Respiratory Rate 16 20 H 16 Blood Pressure 143/62 H 138/65 H 156/65 H Blood Pressure Mean 89 89 95 Pulse Ox 96 96 95 Oxygen Delivery Method Room Air Room Air Room Air 10/13/23 16:24 10/13/23 16:25 Temperature 98.3 F Temperature Source Temporal Pulse Rate 82 82 Respiratory Rate 16 16 Blood Pressure 156/65 H 156/65 H Blood Pressure Mean 95 95 Pulse Ox 95 95 Oxygen Delivery Method Room Air Positive well nourished and well developed; Negative for unkempt General Appearance ED: well developed and NAD; Negative for unkempt, cyanotic or diaphoretic HEENT Reports dry mucous membranes HEENT Narrative: Is atraumatic and normocephalic. Ears are normal. Nares are patent. Uvula is midline. Posterior pharynx is normal. Mouth ED: Yes dry mucous membranes Mouth: dry mucous membranes Eyes PERRL and EOMs intact bilaterally General Eye ED: Negative for scleral icterus Neck no lymphadenopathy, supple and no JVD Chest Wall inspection of chest normal and palpation of chest normal Resp normal respiratory effort and clear to auscultation bilaterally Cardio regular rate, regular rhythm, S1 normal heart sound, S2 normal heart sound and no murmurs GI normal to inspection, nondistended, normoactive bowel sounds, non-tender, non- distended and no masses; Negative for hepatosplenomegaly GI Narrative: Colostomy. Colostomy is been present for some time. Back/Spine no CVA tenderness Thoracic Spine / Upper Back: Negative for thoracic spinal tenderness Lumbar Spine / Lower Back: Negative for lumbar spinal tenderness Extremity Extremity Narrative: Patient is dermatitis with lymphedema. Neuro No oriented x3 and CN's II-XII intact bilaterally Neuro Narrative: Draws to Babinski testing. There is no clonus at the ankle. Sensorium / Orientation: Negative for alert Motor Exam: strength 5/5 throughout Psych Psych Narrative: Patient affect appears normal. Appearance: Negative for unkempt MDM MDM MDM Narrative Medical decision making narrative: Differential is significant and broad. This may represent infectious versus metabolic process. Since patient has a SOFTWARE PRODUCT MANAGER shunt this may be related to his SOFTWARE PRODUCT MANAGER shunt not functioning properly. This may represent a stroke as well. Work-up will include a CAT scan, laboratory studies, urinalysis and shunt series. His inpatient records were reviewed. Specifically records reviewed relating to his most recent admission due to chronic cholecystitis with cholelithiasis. Discharge note was reviewed. Dr. Burrell his doctor called and notified us of his recent urinary tract infection and treatment with antibiotics as well as recent diagnosis of COVID, September 30. History & Record Review Discussion w/independent historian: Significant other Additional record(s) reviewed:: Prior inpatient record, Prior outpatient record and Prior ED visit Lab Data Attestation: I reviewed the patient's lab results. Lab results narrative: CBC is unremarkable. MCV is slightly elevated 101.7. This patient's presentation. Comprehensive metabolic panel reveals a sodium of 150. Chloride is 119. CO2 is 32 with anion gap of -11 BUN to creatinine ratio is elevated 35- 1. UA reveals pyuria. Urine culture was sent. Labs: Laboratory Results - last 24 hr 10/13/23 10/13/23 14:05 15:20 WBC 9.0 RBC 3.48 L Hgb 10.6 L Hct 35.4 L MCV 101.7 H MCH 30.5 MCHC 29.9 L RDW Std Deviation 51.7 H RDW Coeff of Nayeli 14.1 Plt Count 217 MPV 10.2 Immature Gran % (Auto) 0.300 Neut % (Auto) 79.3 H Lymph % (Auto) 14.4 L [place] % (Auto) 4.0 Eos % (Auto) 1.7 Baso % (Auto) 0.3 Absolute Neuts (auto) 7.1 Absolute Lymphs (auto) 1.29 Nucleated RBC % 0 Sodium 150 H Potassium 3.2 L Chloride 119 H Carbon Dioxide 32.0 Anion Gap -1 L BUN 31 H Creatinine 0.89 Estim Creat Clear Calc 61.35 Est GFR (MDRD) Af Amer 105 Est GFR (MDRD) Non-Af 86 BUN/Creatinine Ratio 34.9 H Glucose 118 H Calcium 8.9 Total Bilirubin 0.40 AST 35 ALT 46 Alkaline Phosphatase 100 Ammonia 15.0 Total Protein 7.4 Albumin 2.3 L Globulin 5.1 H Albumin/Globulin Ratio 0.5 L Urine Color Yellow Urine Clarity Sl. Cloudy Urine pH 8.0 Ur Specific [place] 1.010 Urine Protein 30 H Urine Glucose (UA) Normal Urine Ketones Negative Urine Occult Blood 150 H Urine Nitrite Negative Urine Bilirubin Negative Urine Urobilinogen Normal Ur Leukocyte Esterase 500 H Urine RBC 0-5 SEEN Urine WBC 25-50 SEEN Ur Squamous Epith Cells 0 SEEN Urine Bacteria RARE Urine Mucus 0 SEEN Radiography Diagnostic Testing: Clinical Impression(s) from Imaging Studies Brain CT 10/13/23 13:59 IMPRESSION: Chronic involutional changes of the brain. Stable examination. Electronically Signed: Mike Cha MD at 14:40 EST , Shuntogram 10/13/23 14:22 IMPRESSION: The right-sided ventriculoperitoneal shunt tubing is intact. Electronically Signed: Mike Cha MD at 14:41 EST , Management Discussion w/another healthcare provider: Hospitalist (Requested imipenem. I am unable to place order for imipenem.) Treatment and Re-Evaluation :: Informed of results of laboratory studies and images. Patient does have hyponatremia, prerenal azotemia and may be contributing to his altered mental status. Since she is not able to care for him hospitalist has been paged. Since his sodium is elevated and he is free renal fluids were ordered. Discharge Plan Dx/Rx/DC Orders Clinical Impression: Altered mental status, Paraplegia, HTN (hypertension), Hypothyroidism, Hyperlipidemia, Acute hypernatremia, Acute prerenal azotemia, Hyperchloremia, Dysarthria, Pyuria Disposition Disposition: Acute Care Hospital [facility]
[2023-10-13 14:21] LABS: Absolute Lymphocyte Count 1.29 X10^3/uL (0.83-4.51); Absolute Neutrophil Count 7.1 X10^3/uL (2.0-7.7); Basophil# 0.03 X10^3/uL; Basophil% 0.3 % (0-1); Eosinophil# 0.15 X10^3/uL; Eosinophils% 1.7 % (0-5); Hematocrit 35.4 % (40-54); Hemoglobin 10.6 g/dL (13.0-16.5); Lymphocyte # 1.29 X10^3/ul (0.83-4.51); Lymphocyte % 14.4 % (19-41); Mean Corp Hgb Conc 29.9 g/dL (32-36); Mean Corpuscular Hgb 30.5 pg (27.0-32.0); Mean Corpuscular Volume 101.7 fL (80-94); Mean Platelet Vol. 10.2 fl (6.2-12.0); Monocyte# 0.36 X10^3/uL; NRBC Flagged by Analyzer 0 % (0-5); Neutrophil # 7.09 X10^3/uL (2.7-7.7); Neutrophil % 79.3 % (47-70); Platelet Count 217 K/mm3 (150-450); RBC Distribution Width CV 14.1 % (11.6-14.6); RBC Distribution Width SD 51.7 fl (35.1-43.9); Red Blood Count 3.48 M/mm3 (4.6-6.2)
--- NOTE | 2023-10-13 14:22 | RAD_ITS ---
CLINICAL HISTORY: Male, 88 years old. Right ventriculoperitoneal shunt. Findings: A right-sided ventriculoperitoneal shunt tube is seen. The tube is intact. There is evidence of the a filter in the inferior vena cava. Large amount of fecal material is seen in the colon. # of Images: 4 RAD/Shuntogram/Prev Placed Shunt IMPRESSION: The right-sided ventriculoperitoneal shunt tubing is intact. Electronically Signed: Mike Cha MD at 14:41 EST ,
[2023-10-13 14:28] LABS: ALB/GLOB Ratio 0.5 RATIO (0.9-2.4); AST(SGOT) 35 U/L (15-37); Alanine Aminotransfer ALT/SGPT 46 U/L (16-61); Albumin, Serum 2.3 g/dL (3.2-5.0); Alkaline Phosphatase 100 U/L (45-117); Anion Gap -1 (5-15); BUN 31 mg/dL (7-18); BUN/Creat Ratio 34.9 RATIO (10-20); Calcium,Total 8.9 mg/dL (8.5-10.1); Chloride 119 mmol/L (98-107); Creatinine, Serum 0.89 mg/dL (0.70-1.30); EST Glomerular Filtration Rate 86 mL/min (>60); Est Glom Filt Rate - Afr Amer 105 mL/min (>60); Estimated Creatinine Clearance 61.35 ml/min; Globulin 5.1 g/dL (2.2-4.2); Glucose 118 mg/dL (74-106); Potassium 3.2 mmol/L (3.5-5.1); Protein, Total 7.4 g/dL (6.4-8.2); Sodium Level 150 mmol/L (136-145)
[2023-10-13 15:30] LABS: Mucous, Urine 0 SEEN /hpf (<or=2+); Squamous Epithelial Cells - UA 0 SEEN /hpf (0-5)
[2023-10-13 15:39] LABS: Color, Urine Yellow (Yellow); Glucose, Dipstick Normal (Normal); Ketone-Dipstick Negative (Negative); Leukocyte Esterase-Dipstick 500 /ul (Negative); Nitrite-Dipstick Negative (Negative); Occult Blood-Urine 150 /ul (Negative); Protein-Dipstick 30 mg/dl (Negative); Urine Bilirubin Dipstick Negative (Negative); Urine Clarity Sl. Cloudy (Clear); Urine Urobilinogen Normal (Normal)
[2023-10-13 15:56] LABS: Bacteria RARE /hpf (None Seen); Red Blood Cells-Urine 0-5 SEEN /hpf (0-5); White Blood Cells 25-50 SEEN /hpf (0-5)
--- NOTE | 2023-10-13 16:21 | PCM.HP.STD ---
HPI - General General Date of Admission: 10/13/23 Date of Service: 10/13/23 Chief Complaint: Confusion, garbled speech my extremity tremors. 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 s/p tracheostomy, seizure disorder who presents to the [facility] ED on 10/13/23 with history of worsening mentation over the last week with even difficulty communicating with his with recent admission for cholelithiasis with chronic cholecystitis and common bile duct stone discharged on 09/06/2023 to nursing facility with unfortunate COVID illness at that time with mentation progressively worsening since then as well as a recent urinary tract infection status post a course of antibiotic therapy with difficulty with fluency, mild primarily upper extremity tremors, garbled speech and inability to answer questions appropriately prompting eventual ED evaluation. Work-up in the ED included T98.1, heart rate 86, BP 143/62, respiratory rate 16, 96% room air, CBC with WBC 9.0, hemoglobin 10.6, platelet 217 without marked shift, CMP with sodium 150, potassium 3.2, chloride 119, BUN/creatinine 31/0.89, glucose 118, ammonia 15, hepatic profile not marked appearing, urine cloudy appearing with specific remedy 1.010, protein 30, occult blood 150, negative ketone, leukocyte Estrace 500 with urine WBCs 25-50 with rare urine bacteria, urine culture requested, CT of the brain with chronic involutional changes, shuntogram with right-sided PRODUCT DELIVERY SPECIALIST shunt tubing intact and appropriate position. In the ED patient administered maintenance IV fluids. Recent 10/11/23 UCx with noted > 100,000 presumptive E. Coli. Based on prior resistance patterns as discussed with ED physician, initiated on imipenem. [facility] Medical History (Updated 10/13/23 @ 20:[address] 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 Non-smoker Non-STEMI (non-ST elevated myocardial infarction) PAD (peripheral artery disease) Paraplegia Pressure ulcer Seizures Stroke/cerebrovascular accident Subarachnoid hemorrhage (~2003) Syringomyelia Therapeutic opioid-induced constipation (OIC) Uses wheelchair Wears glasses Home Medications furosemide 40 mg tablet 40 mg PO DAILY diuretic 08/11/18 [History Last Taken 10/13/23] atorvastatin 40 mg tablet (Lipitor) 40 mg PO QHS CHOLESTEROL 11/06/18 [History Last Taken 10/12/23] multivitamin,jy-gwnf-hqkhlznq 27 mg-0.4 mg tablet 1 tab PO DAILY SUPPLEMENT 11/06/18 [History Last Taken 10/13/23] pyridoxine (vitamin B6) 100 mg tablet 100 mg PO DAILY SUPPLEMENT 11/06/18 [History Last Taken 10/13/23] tamsulosin 0.4 mg capsule 0.4 mg PO 1700 BPH 11/06/18 [History Last Taken 10/12/23] carvedilol 3.125 mg tablet 3.125 mg PO QHS heart 02/06/20 [History Last Taken 10/12/23] cyclobenzaprine 5 mg tablet 5 mg PO QHS pain 02/06/20 [History Last Taken 10/10/23] isosorbide mononitrate 10 mg tablet 10 mg PO QHS to dilate blood vessels in legs 02/06/20 [History Last Taken 10/12/23] losartan 25 mg tablet 12.5 mg PO DAILY stop if low bp per Eris Melendez MD 02/06/20 [History Last Taken 10/13/23] sulfamethoxazole 800 mg-trimethoprim 160 mg tablet (Bactrim DS) 1 tab PO DAILY to prevent Nocardia UTI 02/06/20 [History Last Taken 10/13/23] ascorbic acid (vitamin C) 1,000 mg tablet 500 mg PO BID supplement 10/12/20 [History Last Taken 10/13/23] cranberry fruit concentrate 250 mg chewable tablet (Azo Cranberry) 500 mg PO DAILY bladder 10/12/20 [History Last Taken 10/13/23] levothyroxine 50 mcg tablet 50 mcg PO DAILY thyroid 10/12/20 [History Last Taken 08/30/23] gabapentin 300 mg capsule 300 mg PO DAILY nerve pain 06/23/23 [History Last Taken 10/13/23] magnesium oxide 500 mg capsule 250 mg PO BID supplement 06/23/23 [History Last Taken 10/13/23] lithium carbonate 150 mg capsule 150 mg PO TID 08/17/23 [History Last Taken 10/13/23] clopidogrel 75 mg tablet (Plavix) 75 mg PO DAILY blood thinner #30 tabs 09/01/23 [Rx Last Taken 10/13/23] methadone 5 mg tablet See Rx Instructions .Route .COMPLEX Check with primary doctor 14 days #90 tabs 09/05/23 [Rx Last Taken 10/13/23] potassium chloride 20 mEq tablet,extended release 20 meq PO DAILY 09/13/23 [History Last Taken 10/13/23] amino acids-protein hydrolysate 17 gram-100 kcal/30 mL liquid packet (Pro-Stat AWC) 30 ea PO DAILY 10/13/23 [History Last Taken Unknown] doxepin 25 mg capsule 25 mg PO QHS 10/13/23 [History Last Taken 10/12/23] sennosides 8.6 mg tablet (Senna Laxative) 17.2 mg PO DAILY 10/13/23 [History Last Taken 10/13/23] topiramate 50 mg tablet 50 mg PO Q12H 10/13/23 [History Last Taken 10/13/23] Allergy/AdvReac Type Severity Reaction Status Date / Time Cephalosporins Allergy Intermediate Laryngospas Verified 10/13/23 14:14 ms Penicillins Allergy Intermediate Rash Verified 10/13/23 14:14 Iodinated Contrast Media Allergy Rash Verified 10/13/23 14:14 [CONTRASTS] heparin AdvReac Intermediate bruises Verified 10/13/23 14:14 easily Family History Father Heart disease Hypertension Sister Hypertension Brother Hypertension Surgical History History of appendectomy History of brain shunt (~2003) History of cholecystectomy History of embolic filter insertion History of laminectomy History of partial colectomy (~04/2022) History of total right knee replacement (TKR) Hx of tracheostomy S/P cholecystectomy S/P IVC filter S/P PRODUCT DELIVERY SPECIALIST shunt Social History (Updated 10/13/23 @ 20:[address] Tracey Adkins MD) household members: spouse Smoking Status: Never smoker alcohol intake: current alcohol intake frequency: a few times a week substance use type: does not use caffeine: Yes Type: coffee Number of servings: 2 ROS Review of Systems ROS Unobtainable: due to mental condition Vital Signs Vital Signs Vital Signs: 10/13/23 12:49 10/13/23 14:47 Temperature 98.1 F Temperature Source Oral Pulse Rate 86 85 Respiratory Rate 16 20 H Blood Pressure 143/62 H 138/65 H Blood Pressure Mean 89 89 Pulse Ox 96 96 Oxygen Delivery Method Room Air Room Air Weight Weight: 160 lb 7.944 oz Body Mass Index (BMI) 17.2 Physical Exam Narrative Physical Examination: General: Awake, alert, oriented to spouse in room but unable to carry any conversation or give proper orientation questions and answers, speech is very halting especially given upper extremity mild ongoing tremors, unable to follow commands well which seems primarily secondary to understanding, seated upright in the ED bed, fatigued. Skin: Normal color, normal turgor, no icterus, no cyanosis except for very staged ecchymoses, chronic wounds/decubitus posterior as well as bilateral lower extremity stasis skin changes. HEENT: AT/NC, EOMI, PERRLA, dry MM, no carotid bruits or JVD noted. Lungs: Diminished, greater bases appropriate effort, no rales, ronchi or wheezing. Heart: Regular rate and rhythm; no gallop, rub audible. Abdomen: Soft, NTTP, ND, hyperactive BS, no HSM. Extremities: No cyanosis, no clubbing, see skin. Neurological: Patient awake, alert, oriented as noted, cognitive function not baseline intact; pupils equally reactive to light and accommodation, cranial nerves grossly normal, moving extremities but difficulty performing requested command activities, significant bilateral upper extremity constant small tremors, generalized severe debility and weakness. Psychiatric: Affect appears flat, no acute evidence of depressive or anxiety feelings. Results Lab / Micro Data 10/13/23 14:05 10/13/23 14:05 Labs: Laboratory Results - last 24 hr 10/13/23 14:05: WBC 9.0, RBC 3.48 L, Hgb 10.6 L, Hct 35.4 L, MCV 101.7 H, MCH 30.5, MCHC 29.9 L, RDW Std Deviation 51.7 H, RDW Coeff of Nayeli 14.1, Plt Count 217, MPV 10.2, Immature Gran % (Auto) 0.300, Neut % (Auto) 79.3 H, Lymph % (Auto) 14.4 L, [place] % (Auto) 4.0, Eos % (Auto) 1.7, Baso % (Auto) 0.3, Absolute Neuts (auto) 7.1, Absolute Lymphs (auto) 1.29, Nucleated RBC % 0, Sodium 150 H, Potassium 3.2 L, Chloride 119 H, Carbon Dioxide 32.0, Anion Gap -1 L, BUN 31 H, Creatinine 0.89, Estim Creat Clear Calc 61.35, Est GFR (MDRD) Af Amer 105, Est GFR (MDRD) Non-Af 86, BUN/Creatinine Ratio 34.9 H, Glucose 118 H, Calcium 8.9, Total Bilirubin 0.40, AST 35, ALT 46, Alkaline Phosphatase 100, Ammonia 15.0, Total Protein 7.4, Albumin 2.3 L, Globulin 5.1 H, Albumin/Globulin Ratio 0.5 L 10/13/23 15:20: Urine Color Yellow, Urine Clarity Sl. Cloudy, Urine pH 8.0, Ur Specific [place] 1.010, Urine Protein 30 H, Urine Glucose (UA) Normal, Urine Ketones Negative, Urine Occult Blood 150 H, Urine Nitrite Negative, Urine Bilirubin Negative, Urine Urobilinogen Normal, Ur Leukocyte Esterase 500 H, Urine RBC 0-5 SEEN, Urine WBC 25-50 SEEN, Ur Squamous Epith Cells 0 SEEN, Urine Bacteria RARE, Urine Mucus 0 SEEN Imagaing Radiology Impression Brain CT 10/13/23 13:59 IMPRESSION: Chronic involutional changes of the brain. Stable examination. Electronically Signed: Mike Cha MD at 14:40 EST , Shuntogram 10/13/23 14:22 IMPRESSION: The right-sided ventriculoperitoneal shunt tubing is intact. 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 s/p tracheostomy, seizure disorder who presents to the [facility] ED on 10/13/23 with history of worsening mentation over the last week with even difficulty communicating with his with recent admission for cholelithiasis with chronic cholecystitis and common bile duct stone discharged on 09/06/2023 to nursing facility with unfortunate COVID illness at that time with mentation progressively worsening since then as well as a recent urinary tract infection status post a course of antibiotic therapy with difficulty with fluency, mild primarily upper extremity tremors, garbled speech and inability to answer questions appropriately prompting eventual ED evaluation. #1. Acute encephalopathy, suspect multifactorial, including presumptive E. coli acute complicated urinary tract infection as well as #2, #3, #4: Will admit to PCU, UA upon ED evaluation only mildly remarkable however patient did have recent 10/11/2023 urine culture with presumptive E. coli with sensitivities and final speciation pending, will in the interim given previous culture history maintain at this time on IV meropenem, maintain on fall precautions, PT/OT/case management consult for discharge planning. Procalcitonin pending. #2. Garbled speech, difficulty with fluency, tremors with underlying seizure disorder, possible breakthrough episodes, possibly medication related: We will obtain lithium level, continue in the interim patient lithium as well as gabapentin and topiramate regimen, will adjust medications pending lithium level, will request MRI of the brain with contrast to be cautious given this has been ongoing and there is no obvious evidence of recent stroke on CT imaging which would be present given this is 4 weeks out however in addition to EEG. Will maintain on seizure precautions and have low-dose IV Ativan as needed. TSH and free T4 levels requested as patient has charted history of hypothyroidism and is does not appear that he is on any Synthroid or levothyroxine regimen. Magnesium levels requested. Certainly may consider neurology consultation pending the work-up as noted. #3. Hypernatremia, unclear specific etiology: In the ED patient does appear dehydrated on physical examination however does not overtly appear hypovolemic on labs, requested urine sodium as well as urine osmolality. May adjust from normal saline to alternate fluid pending these results. #4. Hypokalemia: Admission K+ 3.2, magnesium level requested, supplementation given, repeat level in AM. #5. Hypertension: Continue home regimen including Coreg, isosorbide, losartan once oral intake is appropriate in the interim we will have PRN hydralazine. #6. Hyperlipidemia: We will continue patient on statin therapy once oral intake safe. #7. PAD: We will maintain on as needed aspirin while n.p.o., holding oral hypertensive regimen as noted temporally, holding oral statin therapy temporally as noted. #8. Chronic macrocytic anemia: Admission hemoglobin 10.6, MCV 101.7, baseline hemoglobin appears more recently 10 however patient in August had been 12-13 range, will need to monitor this and if it drops further we will investigate further. #9. History SDH, syringomyelia with paraplegia status post PRODUCT DELIVERY SPECIALIST shunt and tracheostomy previously: CT of the brain with no acute findings and shuntogram appropriate, will maintain on fall and aspiration precautions, PT/OT/ST/case management consulted for discharge planning. Give his current presentation we will maintain n.p.o. status pending speech therapy evaluation to be cautious and judiciously hydrate as noted. #10. Hypothyroidism, chart reported: Noted in chart history, not on any regimen, TSH and free T4 requested as noted this certainly could contribute to patient currently. #11. History of VTE: Patient with history of DVT, possibly prior PE status post IVC filter placement. #12. BPH: We will continue patient on Flomax once oral intake appropriate. #13. GERD: We will temporally place on IV PPI given n.p.o. status. #14. Chronic pain syndrome: We will continue patient home methadone regimen once oral intake safe and the interim will have IV morphine as needed. We will need to continue to closely monitor to assure no withdrawal symptoms. #15. DVT prophylaxis: Lovenox. #16. CODE status: Patient HCPOA is patient's who is present and living will is currently in place. Discussed CODE status at length including difference between FULL code, DNR-CCA and DNR-CC status. Following discussions about the differences in these status, requested DNR-CCA, no intubation status. Advanced Care Planning Face to Face Time: 16 minutes. Charges/Coding Visit Charges Inpatient E&M: 76561 Init Hosp L3 Procedures Hospitalists Procedures: 42714 Advncd Care Plan 30 Min
[2023-10-13] MEDS: 0.9% Normal Saline (1000mL) 1,000 ML 250 ML IV (16:29)
--- NOTE | 2023-10-13 17:14 | NURSING ---
PCU WHITE ENCEPHALOPATHY, UTI
[2023-10-13 17:28] LABS: Urine Sodium 72 mmol/L (Not Establ.)
--- NOTE | 2023-10-13 18:29 | MRI_ITS ---
STUDY: MRI BRAIN WITHOUT CONTRAST REASON FOR EXAM: Male, 88 years old. Encephalopathy, previous mri 2022 TECHNIQUE: Standardized multiplanar fat and water weighted pulse sequences were obtained. COMPARISON: CT brain October 13, 2023. MR brain April 19, 2023 FINDINGS: There is moderate cerebral atrophy with widening of the extra-axial spaces and ventricular dilatation. There are a limited number of small white matter hyperintensities, distributed throughout the deep white matter tracts of the cerebral hemispheres, consistent with mild chronic white matter ischemic changes. Right frontal approach ventriculostomy catheter terminates near or in the right lateral ventricle. Right posterior parietal encephalomalacia. There is no evidence for recent intracranial ischemia or other cause of cytotoxic edema on diffusion weighted imaging (DWI). Normal bilateral basal ganglia. Normal thalami. There is no extra-axial fluid accumulation. Normal flow voids within the major intracranial circulation suggesting patency by spin echo criteria. Normal sella turcica, pituitary gland, infundibular stalk, optic chiasm and hypothalamus. Normal tectal plate and pineal gland. Normal midbrain, farooq and medulla. Normal cerebellum. Normal basal cisterns. Fluid noted in the right mastoid air cells. Normal bilateral internal auditory canals. No demonstrated orbital abnormality, within the constraints of a routine brain study. Normal visualized paranasal sinuses. Normal calvarium and skull base. Normal visualized soft tissue structures. Normal visualized upper cervical spine. MRI/Brain without Contrast IMPRESSION: No acute disease. Right frontal approach ventriculostomy catheter. Right posterior parietal encephalomalacia. Right mastoid air cell. Electronically Signed: Harry Orta MD at 21:08 EST ,
[2023-10-13 19:14] LABS: Osmolality, Urine 533 mOsm/KG
[2023-10-13] MEDS: Potassium Chloride 10mEq/100mL 10 MEQ/100 ML IV.SOLN. 100 MEQ IV BOLUS ×4 (20:18→23:44)
[2023-10-13 20:40] LABS: Magnesium 2.4 mg/dL (1.6-2.6); Phosphorus 2.6 mg/dL (2.5-4.9)
[2023-10-13] MEDS: 0.9% Normal Saline (1000mL) 1,000 ML 75 ML IV (21:15)
[2023-10-13] MEDS: Pantoprazole Sodium 40 MG in 0.9% Normal Saline (100mL MB+) 100 ML 330 MG IV (21:15)
[2023-10-13] MEDS: Meropenem 1 GM in 0.9% Normal Saline (100mL MB+) 100 ML IV (21:44)
[2023-10-14 01:01] VITALS: BP 156/86; PULSE 81; RESP 15; TEMP 37.2; O2SAT 96
[2023-10-14 02:08] VITALS: BMI 21.7
[2023-10-14 05:21] VITALS: BP 154/67; PULSE 84; RESP 18; TEMP 36.5; O2SAT 100
[2023-10-14] MEDS: Meropenem 1 GM in 0.9% Normal Saline (100mL MB+) 100 ML IV ×3 (05:28→21:14)
[2023-10-14 06:46] LABS: Absolute Lymphocyte Count 1.19 X10^3/uL (0.83-4.51); Absolute Neutrophil Count 7.6 X10^3/uL (2.0-7.7); Basophil# 0.03 X10^3/uL; Basophil% 0.3 % (0-1); Eosinophil# 0.14 X10^3/uL; Eosinophils% 1.5 % (0-5); Hematocrit 33.1 % (40-54); Hemoglobin 9.8 g/dL (13.0-16.5); Lymphocyte # 1.19 X10^3/ul (0.83-4.51); Lymphocyte % 12.6 % (19-41); Mean Corp Hgb Conc 29.6 g/dL (32-36); Mean Corpuscular Hgb 30.5 pg (27.0-32.0); Mean Corpuscular Volume 103.1 fL (80-94); Mean Platelet Vol. 9.8 fl (6.2-12.0); Monocyte# 0.42 X10^3/uL; Monocyte% 4.4 % (0-10); NRBC Flagged by Analyzer 0 % (0-5); Neutrophil # 7.63 X10^3/uL (2.7-7.7); Neutrophil % 80.8 % (47-70); Platelet Count 178 K/mm3 (150-450); RBC Distribution Width CV 14.1 % (11.6-14.6); RBC Distribution Width SD 52.8 fl (35.1-43.9); Red Blood Count 3.21 M/mm3 (4.6-6.2); White Blood Count 9.5 K/mm3 (4.4-11.0)
[2023-10-14 07:15] LABS: ALB/GLOB Ratio 0.4 RATIO (0.9-2.4); AST(SGOT) 27 U/L (15-37); Alanine Aminotransfer ALT/SGPT 37 U/L (16-61); Alkaline Phosphatase 97 U/L (45-117); Anion Gap -1 (5-15); BUN 22 mg/dL (7-18); BUN/Creat Ratio 28.7 RATIO (10-20); Calcium,Total 8.5 mg/dL (8.5-10.1); Chloride 124 mmol/L (98-107); Creatinine, Serum 0.77 mg/dL (0.70-1.30); EST Glomerular Filtration Rate 102 mL/min (>60); Est Glom Filt Rate - Afr Amer 124 mL/min (>60); Estimated Creatinine Clearance 51.45 ml/min; Globulin 4.9 g/dL (2.2-4.2); Glucose 84 mg/dL (74-106); Potassium 3.9 mmol/L (3.5-5.1); Protein, Total 6.9 g/dL (6.4-8.2); Sodium Level 148 mmol/L (136-145); T4 Free Direct 1.11 ng/dL (0.76-1.46); Thyroid Stim Hormone (TSH) 5.21 uIU/mL (0.358-3.74)
--- NOTE | 2023-10-14 08:09 | PN.HOSP_ITS ---
Reason for Visit Reason for Visit: Diagnoses Urinary tract infection, site not specified (10/13/23) Subjective Subjective Confused. Patient's son is present and explains the patient's had a progressive decline over the past several months since his gallbladder issues and choledocholithiasis. Has been on numerous medications through palliative care to help him with somatic complaints but he has not been his normal self really since all that for the past few months but it is progressively gotten worse. Objective Data Objective Data Vital Signs: Vital Signs Temp Pulse Resp BP Pulse Ox O2 Del Method 36.5 C L 84 18 154/67 H 100 Room Air 10/14/23 05:21 10/14/23 05:21 10/14/23 05:21 10/14/23 05:21 10/14/23 05:21 10/14/23 05:21 Oxygen Delivery Method Room Air Weight: 68.6 kg Body Mass Index (BMI) 21.7 Intake & Output: Intake and Output for Last 24 Hours 10/12/23 10/13/23 10/14/23 23:59 23:59 23:59 Intake Total 1412.08 / 1412.08 427.5 / 427.5 Output Total 325 / 325 500 / 500 Balance 1087.08 / 1087.08 -72.5 / -72.5 Lab / Micro Data 10/14/23 06:29 10/14/23 06:29 Labs: Laboratory Results - last 24 hr 10/13/23 14:05: WBC 9.0, RBC 3.48 L, Hgb 10.6 L, Hct 35.4 L, MCV 101.7 H, MCH 30.5, MCHC 29.9 L, RDW Std Deviation 51.7 H, RDW Coeff of Nayeli 14.1, Plt Count 217, MPV 10.2, Immature Gran % (Auto) 0.300, Neut % (Auto) 79.3 H, Lymph % (Auto) 14.4 L, [place] % (Auto) 4.0, Eos % (Auto) 1.7, Baso % (Auto) 0.3, Absolute Neuts (auto) 7.1, Absolute Lymphs (auto) 1.29, Nucleated RBC % 0, Sodium 150 H, Potassium 3.2 L, Chloride 119 H, Carbon Dioxide 32.0, Anion Gap -1 L, BUN 31 H, Creatinine 0.89, Estim Creat Clear Calc 61.35, Est GFR (MDRD) Af Amer 105, Est GFR (MDRD) Non-Af 86, BUN/Creatinine Ratio 34.9 H, Glucose 118 H, Calcium 8.9, Total Bilirubin 0.40, AST 35, ALT 46, Alkaline Phosphatase 100, Ammonia 15.0, Total Protein 7.4, Albumin 2.3 L, Globulin 5.1 H, Albumin/Globulin Ratio 0.5 L 10/13/23 15:20: Urine Color Yellow, Urine Clarity Sl. Cloudy, Urine pH 8.0, Ur Specific [place] 1.010, Urine Protein 30 H, Urine Glucose (UA) Normal, Urine Ketones Negative, Urine Occult Blood 150 H, Urine Nitrite Negative, Urine Bilirubin Negative, Urine Urobilinogen Normal, Ur Leukocyte Esterase 500 H, Urine RBC 0-5 SEEN, Urine WBC 25-50 SEEN, Ur Squamous Epith Cells 0 SEEN, Urine Bacteria RARE, Urine Mucus 0 SEEN 10/13/23 17:15: Urine Osmolality 533, Ur Random Sodium 72 10/13/23 20:05: Phosphorus 2.6, Magnesium 2.4, Procalcitonin 0.10 H, Cool 0.40 L 10/14/23 06:29: WBC 9.5, RBC 3.21 L, Hgb 9.8 L, Hct 33.1 L, MCV 103.1 H, MCH 30.5, MCHC 29.6 L, RDW Std Deviation 52.8 H, RDW Coeff of Nayeli 14.1, Plt Count 178, MPV 9.8, Immature Gran % (Auto) 0.400, Neut % (Auto) 80.8 H, Lymph % (Auto) 12.6 L, [place] % (Auto) 4.4, Eos % (Auto) 1.5, Baso % (Auto) 0.3, Absolute Neuts (auto) 7.6, Absolute Lymphs (auto) 1.19, Nucleated RBC % 0, Sodium 148 H, Potassium 3.9, Chloride 124 H, Carbon Dioxide 25.0, Anion Gap -1 L, BUN 22 H, Creatinine 0.77, Estim Creat Clear Calc 51.45, Est GFR (MDRD) Af Amer 124, Est GFR (MDRD) Non-Af 102, BUN/Creatinine Ratio 28.7 H, Glucose 84, Calcium 8.5, Total Bilirubin 0.50, AST 27, ALT 37, Alkaline Phosphatase 97, Total Protein 6.9, Albumin 2.0 L, Globulin 4.9 H, Albumin/Globulin Ratio 0.4 L, TSH 5.21 H, Free T4 1.11 Radiography Diagnostic Testing: Radiology Impression Brain CT 10/13/23 13:59 IMPRESSION: Chronic involutional changes of the brain. Stable examination. Electronically Signed: Mike Cha MD at 14:40 EST , Shuntogram 10/13/23 14:22 IMPRESSION: The right-sided ventriculoperitoneal shunt tubing is intact. Electronically Signed: Mike Cha MD at 14:41 EST , Brain MRI 10/13/23 18:29 IMPRESSION: No acute disease. Right frontal approach ventriculostomy catheter. Right posterior parietal encephalomalacia. Right mastoid air cell. Electronically Signed: Harry Orta MD at 21:08 EST , Physical Exam Const Constitutional Narrative: Awake. Confused. Perseverates when asked him his name and that I asked mother question keeps on repeating his last name. HEENT head/scalp atraumatic Cardio regular rate, regular rhythm, S1 normal heart sound and S2 normal heart sound GI normal to inspection, nondistended, normoactive bowel sounds, soft to palpation, non-tender and non-distended Extremity normal to inspection Neuro Sensorium / Orientation: awake and alert Assessment & Plan Assessment/Plan (1) UTI (urinary tract infection): PLAN: Presumptive E. coli on culture from tjhe 15th. On Meropenem given h/o PCN allergy (2) Encephalopathy: PLAN: acute. Likely metabolic and toxic Likely multifactorial 2/2 UTI, advanced age, poor performance status, known seizure d/o w possible breakthrough seizures, h/o SDH; but also complicated by concurrent use of lithium (lithium level 0.4, which is low, so unlikely lithium toxicity), gabapentin, topiramate, doxepin ,methadone. Hold gabapentin, doxepin. Continue methadone, but hold for confusion. Pt has be en on methadone chronically, so this presents a dilemma with his encephalopathy, but also at risk for opiate withdrawal, which could exacerbated encephalopathy. So we will discontinue the methadone given its prolonged half-life and have the patient on oxycodone as needed. Son states that is unclear how long the patient has been on lithium and sounds like may be for a mood stabilizer but he is not sure that his father has bipolar disorder. Given that the level was low, will hold off to make any changes. Patient had been started on. Made to help him with sleep. Will discontinue that. TSH elevated, but FT3 WNL MRI brain and EEG ordered. (3) Hypernatremia: PLAN: Ongoing. I suspect due to dehydration, will change IVF to 0.45 NS Monitor (4) Hypokalemia: PLAN: POA Improved after replacement. Monitor PLAN: Plan Chronic conditions: * Hypertension: Continue coreg, isosorbide, losartan when able * hyperlipidemia: statin when able. * PAD: clopidogrel when able * Chronic macrocytic anemia: stable. monitor * History SDH, syringomyelia with paraplegia status post CURVE SAW OPERATOR shunt and tracheostomy previously: CT of the brain with no acute findings and shuntogram appropriate, will maintain on fall and aspiration precautions, PT/OT/ST/case management consulted for discharge planning. Give his current presentation we will maintain n.p.o. status pending speech therapy evaluation to be cautious and judiciously hydrate as noted.#10. Hypothyroidism, chart reported: Noted in chart history, not on any regimen, TSH and free T4 requested as noted this certainly could contribute to patient currently. 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 * BPH: tamsulosin when able. * GERD: We will temporally place on IV PPI given n.p.o. status. * Chronic pain syndrome: Reviewed [facility], he has received methadone chronically. Caution with it's use as mentioned above. DVT prophylaxis: SCDs CODE status: per discussion with admitting physician and family: DNR-CCA, no intubation status. Greater than 55 minutes of which greater than 50% of time was discussing with the patient's son at bedside about his past medical history, medications, the complications of his medications, dressing changes that are can occur with his medications. Charges/Coding Visit Charges Inpatient E&M: 47984 Subs Hosp L3
[2023-10-14] MEDS: 0.45% Normal Saline 1,000 ML 125 ML IV ×2 (08:49→16:57)
[2023-10-14 08:55] VITALS: BP 158/67; PULSE 86; RESP 18; TEMP 36.6; O2SAT 99
--- NOTE | 2023-10-14 10:18 | CASEMGMT ---
Addendum entered by Nahomy Esposito 10/14/23 11:11: Social Work As per physician, pt will be here through the weekend. SW to follow up on Monday. SEBASTIÁN Hazel Addendum entered by Nahomy Esposito 10/14/23 11:05: Social Work SW spoke w/. She confirms plan will be for pt to return to [facility] at discharge. She states pt is private pay at this time. She does not need a list of long term facilities since the plan is for pt to return to [facility] at discharge. SW explained [facility] may try for insurance authorization, but she if fine w/pt returning to [facility] if pt is ready on the weekend. SW will speak w/physician and if pt can return to [facility] on the weekend SW will call to see if they can take pt back on the weekend, as they have not responded to the updates on [employer]. SEBASTIÁN Hazel Original Note: Social Work SW reviewed chart, pt is at [facility], has been there since August, went under his insurance. SW called , message left to confirm plan. SW sent updates via [employer], inquired if he will need a precert to return. PT/OT are still pending. SW will continue to follow. SEBASTIÁN Hazel
[2023-10-14] MEDS: Aspirin 300 MG Suppository RC (10:48)
[2023-10-14] MEDS: Enoxaparin 40 MG/0.4 ML Syringe SC (10:48)
[2023-10-14] MEDS: Pantoprazole Sodium 40 MG in 0.9% Normal Saline (100mL MB+) 100 ML 330 MG IV ×2 (10:48→21:14)
[2023-10-14 13:47] VITALS: O2SAT 96
[2023-10-14 14:45] VITALS: BP 116/94; PULSE 84; RESP 16; TEMP 36.6; O2SAT 95
[2023-10-14] MEDS: Losartan Potassium 25 MG Tablet 12.5 MG PO (16:08)
[2023-10-14] MEDS: Lithium Carbonate 150 MG Capsule PO ×2 (16:11→21:13)
[2023-10-14] MEDS: Potassium Chloride Oral Tablet 20 MEQ PO (16:12)
[2023-10-14] MEDS: Tamsulosin HCl 0.4 MG Capsule PO (16:13)
[2023-10-14] MEDS: Senna Tablet 2 TABLET PO (16:15)
[2023-10-14] MEDS: Magnesium Chloride 64 MG Delay Rel.Tablet 128 MG PO ×2 (16:16→21:13)
[2023-10-14] MEDS: Pyridoxine HCl 100 MG Tablet PO (16:18)
[2023-10-14] MEDS: Multivitamins,Ther W-Minerals Tablet 1 TABLET PO (16:22)
[2023-10-14] MEDS: Ascorbic Acid 500 MG Tablet PO ×2 (16:22→21:13)
[2023-10-14 21:05] VITALS: BP 134/80; PULSE 86; RESP 18; TEMP 37.5; O2SAT 97
[2023-10-14] MEDS: Isosorbide Mononitrate 20 MG Tablet 10 MG PO (21:13)
[2023-10-14] MEDS: Carvedilol 3.125 MG TABLET PO (21:13)
[2023-10-14] MEDS: Atorvastatin Calcium 40 MG Tablet PO (21:14)
[2023-10-15] MEDS: 0.45% Normal Saline 1,000 ML 125 ML IV ×3 (01:29→16:06)
[2023-10-15 03:05] VITALS: BP 128/53; PULSE 64; RESP 18; TEMP 37.4; O2SAT 98
[2023-10-15] MEDS: Meropenem 1 GM in 0.9% Normal Saline (100mL MB+) 100 ML IV ×3 (05:23→21:09)
[2023-10-15] MEDS: Lithium Carbonate 150 MG Capsule PO (05:23)
[2023-10-15 06:00] VITALS: BMI 21.4
[2023-10-15 06:52] LABS: Absolute Lymphocyte Count 0.95 X10^3/uL (0.83-4.51); Absolute Neutrophil Count 3.8 X10^3/uL (2.0-7.7); Basophil# 0.02 X10^3/uL; Basophil% 0.4 % (0-1); Eosinophil# 0.18 X10^3/uL; Eosinophils% 3.4 % (0-5); Hematocrit 29.5 % (40-54); Hemoglobin 8.9 g/dL (13.0-16.5); Lymphocyte # 0.95 X10^3/ul (0.83-4.51); Lymphocyte % 18.1 % (19-41); Mean Corp Hgb Conc 30.2 g/dL (32-36); Mean Corpuscular Hgb 30.7 pg (27.0-32.0); Mean Corpuscular Volume 101.7 fL (80-94); Mean Platelet Vol. 9.9 fl (6.2-12.0); Monocyte# 0.28 X10^3/uL; Monocyte% 5.3 % (0-10); NRBC Flagged by Analyzer 0 % (0-5); Neutrophil % 72.4 % (47-70); Platelet Count 151 K/mm3 (150-450); RBC Distribution Width CV 14.1 % (11.6-14.6); RBC Distribution Width SD 51.8 fl (35.1-43.9); White Blood Count 5.3 K/mm3 (4.4-11.0)
[2023-10-15 07:15] LABS: Anion Gap 4 (5-15); BUN 16 mg/dL (7-18); BUN/Creat Ratio 25.4 RATIO (10-20); Calcium,Total 7.7 mg/dL (8.5-10.1); Chloride 121 mmol/L (98-107); Creatinine, Serum 0.63 mg/dL (0.70-1.30); EST Glomerular Filtration Rate 129 mL/min (>60); Est Glom Filt Rate - Afr Amer 156 mL/min (>60); Glucose 81 mg/dL (74-106); Potassium 3.2 mmol/L (3.5-5.1); Sodium Level 146 mmol/L (136-145)
[2023-10-15 08:16] VITALS: O2SAT 97
--- NOTE | 2023-10-15 08:32 | PN.HOSP_ITS ---
Reason for Visit Reason for Visit: Diagnoses Hyperosmolality and hypernatremia (10/13/23) Hypokalemia (10/13/23) Encephalopathy, unspecified (10/13/23) Urinary tract infection, site not specified (10/13/23) Subjective Subjective Still confused. Objective Data Objective Data Vital Signs: Vital Signs Temp Pulse Resp BP Pulse Ox O2 Del Method 37.4 C H 64 18 128/53 H 97 Room Air 10/15/23 03:05 10/15/23 03:05 10/15/23 03:05 10/15/23 03:05 10/15/23 08:16 10/15/23 08:16 Oxygen Delivery Method Room Air Weight: 68 kg Body Mass Index (BMI) 21.4 Intake & Output: Intake and Output for Last 24 Hours 10/13/23 10/14/23 10/15/23 23:59 23:59 23:59 Intake Total 1412.08 / 1412.08 2236.25 / 2236.25 1120 / 1120 Output Total 325 / 325 1300 / 1300 375 / 375 Balance 1087.08 / 1087.08 936.25 / 936.25 745 / 745 Medical Nutrition Assessment Dietitian: Malnutrition Criteria Met Start: 10/14/23 12:35 Freq: Status: Active Protocol: Document 10/14/23 12:35 AG (Rec: 10/14/23 12:35 AG [id number]) Nutrition Malnutrition Evidence of Malnutrition Exists Yes Malnutrition (severe): Acute Illness/Injury Evidenced By Suboptimal Energy Intake ( Severe),Weight Loss (Severe) Clinical Problem Acute Disease or Injury Related Malnutrition Etiology severe, acute malnutrition related to inadequate energy intake w/acute GI, COVID illnesses Signs/Symptoms as evidenced by estimated PO intake meeting <50% of estimated energy needs > 5 days, unintentional 8.5kg/11% wt loss x 1.5 months Status Active Problem Recommendation Dietitian Recommendations/Changes recommend advance diet as tolerated to regular- texture/ consistency per MANUFACTURING ENGINEERING MANAGER; Fred BID and Ensure Plus High Protein 120mL 4x/day w/ medpass when diet is advanced given evidence of malnutrition Lab / Micro Data 10/15/23 06:37 10/15/23 06:37 Labs: Laboratory Results - last 24 hr 10/15/23 06:37: WBC 5.3, RBC 2.90 L, Hgb 8.9 L, Hct 29.5 L, MCV 101.7 H, MCH 30.7, MCHC 30.2 L, RDW Std Deviation 51.8 H, RDW Coeff of Nayeli 14.1, Plt Count 151, MPV 9.9, Immature Gran % (Auto) 0.400, Neut % (Auto) 72.4 H, Lymph % (Auto) 18.1 L, [place] % (Auto) 5.3, Eos % (Auto) 3.4, Baso % (Auto) 0.4, Absolute Neuts ( auto) 3.8, Absolute Lymphs (auto) 0.95, Nucleated RBC % 0, Sodium 146 H, Potassium 3.2 L, Chloride 121 H, Carbon Dioxide 21.0, Anion Gap 4 L, BUN 16, Creatinine 0.63 L, Estim Creat Clear Calc 51.00, Est GFR (MDRD) Af Amer 156, Est GFR (MDRD) Non-Af 129, BUN/Creatinine Ratio 25.4 H, Glucose 81, Calcium 7.7 L Micro: Microbiology 10/13/23 17:15 Urine Catheter - Catheter Urine Culture - Final ESBL Escherichia coli Physical Exam Const Constitutional Narrative: Alert to self but when asked him where he is he repeats his name. HEENT head/scalp atraumatic Resp normal respiratory effort, no retractions, no use of accessory muscles and clear to auscultation bilaterally Cardio regular rate, regular rhythm, S1 normal heart sound and S2 normal heart sound GI normal to inspection, nondistended, normoactive bowel sounds, soft to palpation, non-tender and non-distended Extremity normal to inspection and full ROM Neuro Sensorium / Orientation: awake and alert Assessment & Plan Assessment/Plan (1) UTI (urinary tract infection): PLAN: ESBL E. coli. On Meropenem given h/o PCN allergy Culture shows ESBL E. coli sensitive to amikacin, cefotetan, imipenem, and meropenem. Consult ID for long-term recommendations. (2) Encephalopathy: PLAN: acute. Likely metabolic and toxic Likely multifactorial 2/2 UTI, advanced age, poor performance status, known seizure d/o w possible breakthrough seizures, h/o SDH; but also complicated by concurrent use of lithium (lithium level 0.4, which is low, so unlikely lithium toxicity), gabapentin, topiramate, doxepin ,methadone. Hold gabapentin, doxepin. Continue methadone, but hold for confusion. Pt has been on methadone chronically, so this presents a dilemma with his encephalopathy, but also at risk for opiate withdrawal, which could exacerbated encephalopathy. So we will discontinue the methadone given its prolonged half- life and have the patient on oxycodone as needed. Son states that is unclear how long the patient has been on lithium and sounds like may be for a mood stabilizer but he is not sure that his father has bipolar disorder. Given that the level was low, will hold off to make any changes. Patient had been started on. Made to help him with sleep. Will discontinue that. TSH elevated, but FT4 WNL MRI brain showed no acute process. Right frontal ventriculostomy catheter on the right. Half-life of methadone is anywhere from 8 to 59 hours with an average around 24 hours. Would like to see how the patient does over the next couple days to see if this is indeed due to toxic cephalopathy related with methadone as well as other medications that he takes. I did discuss with the patient's about his case and told her my concern about medications that he is on. She was also concerned but was having difficulty getting into the office to see about de- escalating some these medications. So apparently it had been a concern before but they had not yet had the chance to work on that process. She also states that the patient is only recently been put on lithium. He does not have a history of bipolar disorder. So I been a recent addition to help with pain cont rol. She is very comfortable with lithium being discontinued. (3) Hypernatremia: PLAN: Ongoing, but improving. I suspect due to dehydration, will change IVF to 0.45 NS (4) Hypokalemia: PLAN: POA Improved, but down again. Replace. Magnesium was 2.4 on the 17th. Phosphorous was 2.6 on the 17th. Recheck phosphorous and replace if low. Unclear if c omponent of refeeding syndrome. (5) Anemia: PLAN: Hg dropped from 10.6 to 9.8. Unclear significance at this time, whether this is accurate or not, such that if this is dilutional from the IV fluids. Continue to monitor at this time. Does appear to be macrocytic, however. TSH was elevated but free T4 was normal. Check a B12 and folate. PLAN: Plan Chronic conditions: * Hypertension: Continue coreg, isosorbide, losartan when able * hyperlipidemia: statin when able. * PAD: clopidogrel when able * Chronic macrocytic anemia: stable. 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 Give his current presentation we will maintain n.p.o. status pending speech therapy evaluation to be cautious and judiciously hydrate as noted.#10. Hypothyroidism, chart reported: Noted in chart history, not on any regimen, TSH and free T4 requested as noted this certainly could contribute to patient currently. 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 * BPH: tamsulosin when able. * GERD: We will temporally place on IV PPI given n.p.o. status. * Chronic pain syndrome: Reviewed OARRS, he has received methadone chronically. Caution with it's use as mentioned above. DVT prophylaxis: SCDs CODE status: per discussion with admitting physician and family: DNR-CCA, no intubation status. Greater than 55 minutes of which greater than 50% of time was discussing with the patient's on the phone about his past medical history, medications, the complications of his medications, dressing changes that are can occur with his medications. Charges/Coding Visit Charges Inpatient E&M: 00383 [facility] Hosp L3
[2023-10-15] MEDS: Potassium Chloride Oral Tablet 20 MEQ PO (08:50)
[2023-10-15] MEDS: Senna Tablet 2 TABLET PO (08:51)
[2023-10-15] MEDS: Enoxaparin 40 MG/0.4 ML Syringe SC (08:51)
[2023-10-15] MEDS: Tamsulosin HCl 0.4 MG Capsule PO (08:52)
[2023-10-15] MEDS: Carvedilol 3.125 MG TABLET PO (08:52)
[2023-10-15] MEDS: Losartan Potassium 25 MG Tablet 12.5 MG PO (08:53)
[2023-10-15] MEDS: Menthol/Lanolin/Calamine/Znox 113 GM Tube 1 APPLIC TOPICAL ×2 (08:58→21:09)
[2023-10-15] MEDS: Aspirin 300 MG Suppository RC (08:58)
[2023-10-15] MEDS: Potassium Chloride Oral Tablet 20 MEQ 40 MEQ PO (08:58)
[2023-10-15] MEDS: Pantoprazole Sodium 40 MG Tablet PO (08:59)
[2023-10-15 09:00] VITALS: BP 152/74; PULSE 78; RESP 16; TEMP 36.4; O2SAT 98
[2023-10-15 09:21] LABS: Phosphorus 1.8 mg/dL (2.5-4.9)
--- NOTE | 2023-10-15 10:31 | NURSING ---
Attempted to give one PO med whole with , patient swallowed applesauce kept pills whole in mouth. Pill cleaned out of mouth and discarded. Crushed other PO meds and given in puree breakfast. Patient able to take first couple bites safetly, however fourth bite patient held in mouth. Speech therapy at bedside to eval. [place] thick water given and patient swallowed puree and water together. No further crushed meds given, will continue with nectar thick water. Critical oral meds could be given crushed with puree and drink of water given directly following bite.
[2023-10-15 15:00] VITALS: BP 156/62; PULSE 66; RESP 14; TEMP 36.6; O2SAT 96
[2023-10-15] MEDS: Potassium Phosphate 40 MM in 0.9% Normal Saline (500mL Bag) 500 ML 62.5 MM IV (15:43)
[2023-10-15 21:00] VITALS: BP 159/77; PULSE 73; RESP 18; TEMP 36.9; O2SAT 97
[2023-10-16] VITALS (7 sets, daily range): BP systolic 157–168; BP diastolic 69–83; PULSE 68–83; RESP 16–18; TEMP 36.3–37; O2SAT 94–97; BMI 21.6
[2023-10-16] MEDS: 0.45% Normal Saline 1,000 ML 125 ML IV ×3 (03:21→21:05)
[2023-10-16 05:00] LABS: Absolute Lymphocyte Count 1.24 X10^3/uL (0.83-4.51); Absolute Neutrophil Count 3.8 X10^3/uL (2.0-7.7); Basophil# 0.04 X10^3/uL; Basophil% 0.7 % (0-1); Eosinophil# 0.16 X10^3/uL; Eosinophils% 2.8 % (0-5); Hematocrit 31.1 % (40-54); Hemoglobin 9.5 g/dL (13.0-16.5); Lymphocyte # 1.24 X10^3/ul (0.83-4.51); Mean Corp Hgb Conc 30.5 g/dL (32-36); Mean Corpuscular Hgb 30.4 pg (27.0-32.0); Mean Corpuscular Volume 99.7 fL (80-94); Mean Platelet Vol. 10.3 fl (6.2-12.0); Monocyte# 0.37 X10^3/uL; Monocyte% 6.6 % (0-10); NRBC Flagged by Analyzer 0 % (0-5); Neutrophil % 67.4 % (47-70); Platelet Count 170 K/mm3 (150-450); RBC Distribution Width CV 13.9 % (11.6-14.6); RBC Distribution Width SD 50.9 fl (35.1-43.9); Red Blood Count 3.12 M/mm3 (4.6-6.2); White Blood Count 5.6 K/mm3 (4.4-11.0)
[2023-10-16] MEDS: Meropenem 1 GM in 0.9% Normal Saline (100mL MB+) 100 ML IV ×3 (05:07→21:45)
[2023-10-16 05:50] LABS: Anion Gap 7 (5-15); BUN 9 mg/dL (7-18); BUN/Creat Ratio 18.2 RATIO (10-20); Calcium,Total 7.7 mg/dL (8.5-10.1); Chloride 118 mmol/L (98-107); Creatinine, Serum 0.49 mg/dL (0.70-1.30); EST Glomerular Filtration Rate 170 mL/min (>60); Est Glom Filt Rate - Afr Amer 206 mL/min (>60); Glucose 59 mg/dL (74-106); Potassium 3.8 mmol/L (3.5-5.1); Sodium Level 144 mmol/L (136-145)
--- NOTE | 2023-10-16 07:42 | PN.HOSP_ITS ---
Reason for Visit Reason for Visit: Diagnoses Anemia, unspecified (10/13/23) Hyperosmolality and hypernatremia (10/13/23) Hypokalemia (10/13/23) Encephalopathy, unspecified (10/13/23) Urinary tract infection, site not specified (10/13/23) Objective Data Objective Data Vital Signs: Vital Signs Temp Pulse Resp BP Pulse Ox O2 Del Method 98.6 F 77 18 157/73 H 95 Room Air 10/16/23 03:25 10/16/23 03:25 10/16/23 03:25 10/16/23 03:25 10/16/23 03:25 10/16/23 03:25 Oxygen Delivery Method Room Air Weight: 150 lb 12.739 oz Body Mass Index (BMI) 21.6 Intake & Output: Intake and Output for Last 24 Hours 10/14/23 10/15/23 10/16/23 23:59 23:59 23:59 Intake Total 2236.25 / 2236.25 3818.34 / 3818.34 1002.0833 / 1002.0833 Output Total 1300 / 1300 1125 / 2275 2150 / 2150 Balance 936.25 / 936.25 2693.34 / 1543.34 -1147.9167 / -1147.9167 Medical Nutrition Assessment Dietitian: Malnutrition Criteria Met Start: 10/14/23 12:35 Freq: Status: Active Protocol: Document 10/14/23 12:35 AG (Rec: 10/14/23 12:35 [id number]) Nutrition Malnutrition Evidence of Malnutrition Exists Yes Malnutrition (severe): Acute Illness/Injury Evidenced By Suboptimal Energy Intake ( Severe),Weight Loss (Severe) Clinical Problem Acute Disease or Injury Related Malnutrition Etiology severe, acute malnutrition related to inadequate energy intake w/acute GI, COVID illnesses Signs/Symptoms as evidenced by estimated PO intake meeting <50% of estimated energy needs > 5 days, unintentional 8.5kg/11% wt loss x 1.5 months Status Active Problem Recommendation Dietitian Recommendations/Changes recommend advance diet as tolerated to regular- texture/ consistency per FUR COAT SEWER; Fred BID and Ensure Plus High Protein 120mL 4x/day w/ medpass when diet is advanced given evidence of malnutrition Lab / Micro Data 10/16/23 04:08 10/16/23 04:08 Labs: Laboratory Results - last 24 hr 10/15/23 06:37: Phosphorus 1.8 L, Folate 14.00 10/16/23 04:08: WBC 5.6, RBC 3.12 L, Hgb 9.5 L, Hct 31.1 L, MCV 99.7 H, MCH 30.4, MCHC 30.5 L, RDW Std Deviation 50.9 H, RDW Coeff of Nayeli 13.9, Plt Count 170, MPV 10.3, Immature Gran % (Auto) 0.500, Neut % (Auto) 67.4, Lymph % (Auto) 22.0, [place] % (Auto) 6.6, Eos % (Auto) 2.8, Baso % (Auto) 0.7, Absolute Neuts (auto) 3.8, Absolute Lymphs (auto) 1.24, Nucleated RBC % 0, Sodium 144, Potassium 3.8, Chloride 118 H, Carbon Dioxide 19.0 L, Anion Gap 7, BUN 9, Creatinine 0.49 L, Estim Creat Clear Calc 51.30, Est GFR (MDRD) Af Amer 206, Est GFR (MDRD) Non-Af 170, BUN/Creatinine Ratio 18.2, Glucose 59 L, Calcium 7.7 L Micro: Microbiology 10/13/23 17:15 Urine Catheter - Catheter Urine Culture - Final ESBL Escherichia coli Assessment & Plan Assessment/Plan (1) UTI (urinary tract infection): PLAN: ESBL E. coli. On Meropenem given h/o PCN allergy Culture shows ESBL E. coli at 2000 200,000 colonies, sensitive to amikacin, cefotetan, imipenem, and meropenem. ID is consulted for long-term recommendation. (2) Encephalopathy: PLAN: acute. 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 Methadone inhaler temporarily. [place] level is low therefore it discontinued after discussion with his from previous hospitalist. Pt has been on methadone chronically, so this presents a dilemma with his encephalopathy, but also at risk for opiate withdrawal, which could exacerbated encephalopathy. Therefore methadone was discontinued and oxycodone as needed was started. TSH elevated, but FT4 WNL MRI brain showed no acute process. Right frontal ventriculostomy catheter on the right. Moderate to severe oropharyngeal dysphagia: Patient was not cooperative therefore MBS was suboptimal. Recommended GI consult due to decreased upper esophageal opening with possibility of upper esophageal stenosis. Patient is moderate to high risk of anesthesia because of altered mental status and any and states he will prolong his confusion. GI consulted. (3) Hypernatremia: PLAN: Ongoing, but improving. I suspect due to dehydration, will change IVF to 0.45 NS (4) Hypokalemia: PLAN: POA Improved, but down again. Replace. Magnesium was 2.4 on the 17th. Phosphorous was 2.6 on the 17th. Recheck phosphorous and replace if low. Unclear if c omponent of refeeding syndrome. (5) Anemia: PLAN: Hg dropped from 10.6 to 9.8. Unclear significance at this time, whether this is accurate or not, such that if this is dilutional from the IV fluids. Continue to monitor at this time. Does appear to be macrocytic, however. TSH was elevated but free T4 was normal. B12 level normal. Folic acid level normal. PLAN: Plan Chronic conditions: * Hypertension: Continue coreg, isosorbide, losartan when able * hyperlipidemia: statin when able. * PAD: clopidogrel when able * Chronic macrocytic anemia: stable. 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 Give his current presentation we will maintain n.p.o. status pending speech therapy evaluation to be cautious and judiciously hydrate as noted.#10. Hypothyroidism, chart reported: Noted in chart history, not on any regimen, TSH and free T4 requested as noted this certainly could contribute to patient currently. 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 * BPH: tamsulosin when able. * GERD: We will temporally place on IV PPI given n.p.o. status. * Chronic pain syndrome: Reviewed OARRS, he has received methadone chronically. Caution with it's use as mentioned above. Total time of the visit including total time spent in counseling or coordination of care, (more than 50% of the total time, spent in obtaining medical information from nurses and other ancillary care providers,explaining to the patient about labs, imaging, diagnosis and management of active complex medical conditions), speech therapist GI consult, review of labs and imaging is 40 minutes. DVT prophylaxis: SCDs CODE status: per discussion with admitting physician and family: DNR-CCA, no intubation status. Charges/Coding Visit Charges Inpatient E&M: 77037 [facility] Hosp L3
[2023-10-16 09:01] LABS: Phosphorus 2.7 mg/dL (2.5-4.9)
--- NOTE | 2023-10-16 09:27 | WOUNDNOTE ---
Pt currently off unit for testing.
[2023-10-16 09:56] LABS: Vitamin B12 901 pg/mL (211-911)
--- NOTE | 2023-10-16 10:21 | CASEMGMT ---
Discharge Planning Updates sent to [facility] via [employer]. [facility] will submit for precert today. SW updated. Erna Hughes, Discharge Planning Asst.
[2023-10-16] MEDS: Menthol/Lanolin/Calamine/Znox 113 GM Tube 1 APPLIC TOPICAL ×2 (10:53→21:20)
[2023-10-16] MEDS: Pantoprazole Sodium 40 MG Tablet PO ×2 (10:55→21:24)
[2023-10-16] MEDS: Pyridoxine HCl 100 MG Tablet PO (10:55)
[2023-10-16] MEDS: Magnesium Chloride 64 MG Delay Rel.Tablet 128 MG PO ×2 (10:56→21:22)
[2023-10-16] MEDS: Enoxaparin 40 MG/0.4 ML Syringe SC (10:57)
[2023-10-16] MEDS: Potassium Chloride Oral Tablet 20 MEQ PO (10:57)
[2023-10-16] MEDS: Ascorbic Acid 500 MG Tablet PO ×2 (10:58→21:25)
[2023-10-16] MEDS: Multivitamins,Ther W-Minerals Tablet 1 TABLET PO (10:58)
[2023-10-16] MEDS: Senna Tablet 2 TABLET PO (10:59)
[2023-10-16] MEDS: Aspirin 300 MG Suppository RC (11:07)
[2023-10-16] MEDS: Losartan Potassium 25 MG Tablet 12.5 MG PO (11:08)
--- NOTE | 2023-10-16 11:43 | ST.MBS ---
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 He presented to [facility] ED on 10/13/23 with history of worsening mentation over the last week. He had a recent admission for cholelithiasis with chronic cholecystitis and common bile duct stone discharged on 09/06/2023 to SNF with COVID at that time. Mentation worsened since discharge, but patient also had a UTI. He completed a course of antibiotics and mentation had not improved, he was unable to answer questions and was brought to the ED. The patient was admitted with UTI, encephalopathy, hypernatremia, and hypokalemia. BSE recommended puree textures / thin liquids with MBSS to further assess concerns for aspiration. Hx of MBSS completed 10/26/2012 revealing severe pharyngeal phase dysphagia and recommending mechanical soft and puree textures w/ honey thick liquids via tsp only and with double swallows. Current Diet Ordered: Puree / Thin Dentition: Natural Teeth and Missing Teeth Mental Status: Impaired Respiratory Status: Oxygenating on Room Air Penetration-Aspiration Scale Penetration-Aspiration Scale: OBJECTIVE ASSESSMENT OF SWALLOW FUNCTION (QUANTITATIVE ? PER TRIAL): PENETRATION / ASPIRATION SCALE (YOUNG): 1 = does not enter airway 2 = enters airway/above vocal folds/ejected 3 = enters airway/above vocal folds/not ejected 4 = enters airway/contacts vocal folds/ejected 5 = enters airway/contacts vocal folds/not ejected 6 = enters airway/below vocal folds/ejected 7 = enters airway/below vocal folds/not ejected despite effort 8 = enters airway/below vocal folds/no effort VIDEOFLOROSCOPIC SCALE SCORE (YOUNG): Grade I = aspiration of material that has penetrated into the laryngeal vestibule, intact cough reflex Grade II = aspiration < 10 % of the bolus, intact cough reflex Grade III = aspiration of < 10 % of the bolus, reduced cough reflex or aspiration of > 10 % of the bolus, intact cough reflex Grade IV = aspiration of > 10 % of the bolus, reduced cough reflex Penetration-Aspiration Scale Score Thin Liquid via teaspoon: Result: 3= enters airways/above vocal folds/not ejected Thin Liquid via teaspoon Trial 2: Result: 5= enters airways/contacts vocal folds/not ejected [place] Thick Liquid via teaspoon: Result: 5= enters airways/contacts vocal folds/not ejected [place] Thick Liquid via teaspoon Trial 2: Result: 5= enters airways/contacts vocal folds/not ejected Honey Thick Liquid via teaspoon: Result: 3= enters airways/above vocal folds/not ejected Pudding via teaspoon: Comment: Unable to score, as the patient held all of pudding bolus in his oral cavity. Post prandial aspiration of residues in the pyriform sinuses from the previous trials. Reflexive cough was somewhat effective in clearing barium from the laryngeal vestibule; however, he proceeded to have some aspiration despite reflexive cough. [place] Thick Liquid via small single sip: cup: Comment: Patient did not swallow nectar thick liquid by cup, but rather held it in his oral cavity. Post prandial aspiration mentioned above continued. Oral Phase Labial Seal: Interlabial escape, no progression to anterior lip Tongue Control During Bolus Hold: Posterior escape of greater than half of bolus Bolus Transport/Lingual Motion: Delayed initiation of tongue motion Oral Residue: Minimal to no clearance Pharyngeal Phase Initiation of Pharyngeal Swallow: Bolus head in pyriforms Soft Palate Elevation: No bolus between soft palate and pharyngeal wall Laryngeal Elevation: Partial superior movement thyroid cart/partial apprx aryt-epig petiole Anterior Hyoid Excursion: Partial anterior movement Epiglottic Movement: No inversion Laryngeal Vestibule Closure at Height of Swallow: Incomplete; narrow column of air/contrast in laryngeal vestibule Pharyngoesophageal Segment Opening: Parital distension and partial duration; parital obstruction of flow Tongue Base Retraction: Wide column of contrast between tongue base & post. pharyngeal wall Pharyngeal Residue: Majority of contrast within or on pharyngeal structures (~50% of contrast) Diagnosis/Impression Diagnosis: Severe oropharyngeal phase dysphagia (R13.12) Impression: The oral phase is primarily marked by... -Decreased bolus control with >1/2 of the bolus spilling posteriorly to the pyriforms prior to swallow onset. -Delayed tongue motion; however, tongue motion was brisk once the patient decided to swallow. -Oral holding and expectoration of pudding via tsp and nectar thick liquids by cup after max cues to swallow. -Did not assess cookie due to confusion, poor pharyngeal clearance, and ACCOUNTS PAYABLE PROCESSOR concern for the patient being a high choking risk. The pharyngeal phase is primarily marked by... -Decreased airway closure during the swallow due to partial anterior hyoid excursion, partial laryngeal elevation, and no epiglottic inversion. -Moderate-severely decreased tongue base retraction, UES opening/duration, pharyngeal stripping wave, resulting in moderate-severe pharyngeal residues after the swallow. -Post prandial aspiration (observed during the pudding trial and nectar by cup) of pharyngeal residues remaining in the pyriform sinuses after thin, nectar, and honey thick trials by tsp. Recommendations Comment: ACCOUNTS PAYABLE PROCESSOR unable to determine safest, least restrictive diet textures recommendations from MBSS due to limited trials and oral holding. Will attempt re-assessing the patient at bedside to see if he is more agreeable to trials with ACCOUNTS PAYABLE PROCESSOR. Recommend Repeat Modified Barium Swallow: TBD (Consider repeat MBSS if improved mentation and cooperation.) Need for Skilled Speech Therapy Services: Yes Comment: Will re-assess the patient at bedside and monitor respiratory status closely as the patient is at high risk for aspiration. Of note, the patient unreliably followed commands during MBSS. He did complete volitional cough 1X when cued. Recommended Referrals: GI Consult (If deemed clinically appropriate, please consider GI consult due to decreased UES opening/duration.) Education Completed: 1. Described result of evaluation. Status Active ST Patient: Active Contact Information [facility] Speech Therapy:: Linda Coppola M.A. [facility]-ACCOUNTS PAYABLE PROCESSOR Speech-Language Pathologist [facility] [address] [place] [address] [email or web address] [phone]
--- NOTE | 2023-10-16 13:00 | EX.PCM.CON.G ---
HPI Consult Data Date of Consult: 10/17/23 HPI Narrative Reason for Consultation: Esophageal dysphagia HPI Narrative: REGINA ROJAS, is a 88 M who presents with confusion. He has a past medical history of HTN, HLD, Hx VTE s/p IVC filter placement, Hypothyroidism, PAD, Hx NSTEMI, Hx SDH, Syringomyelia s/p PAPERHANGER SUPERVISOR shunt with paraplegia s/p tracheostomy, seizure disorder who presents to the [facility] ED on 10/13/23 with history of worsening mentation over the last week. He had a recent admission for cholelithiasis with chronic cholecystitis and common bile duct stone discharged on 09/06/2023 to nursing facility with unfortunate COVID illness at that time with mentation progressively worsening. Since then as well as a recent urinary tract infection status post a course of antibiotic therapy with difficulty with fluency, mild primarily upper extremity tremors, garbled speech and inability to answer questions appropriately prompting eventual ED evaluation. Work-up in the ED included T98.1, heart rate 86, BP 143/62, respiratory rate 16, 96% room air, CBC with WBC 9.0, hemoglobin 10.6, platelet 217 without marked shift, CMP with sodium 150, potassium 3.2, chloride 119, BUN/creatinine 31/0.89, glucose 118, ammonia 15, hepatic profile not marked appearing, urine cloudy appearing with specific remedy 1.010, protein 30, occult blood 150, negative ketone, leukocyte Estrace 500 with urine WBCs 25-50 with rare urine bacteria, urine culture requested, CT of the brain with chronic involutional changes, shuntogram with right-sided PAPERHANGER SUPERVISOR shunt tubing intact and appropriate position. In the ED patient administered maintenance IV fluids. Recent 10/11/23 UCx with noted > 100,000 presumptive E. Coli. He underwent a swallowing evaluation. It was not clear how he did on the swallowing test being that he pulls the food in the back of his mouth and has some difficulty swallowing. He also has had some admissions for aspiration. Speech therapy recommended that I see the patient to see if there was an esophageal or dysmotility causing his intermittent esophageal dysphagia. [facility] Medical History (Updated 10/17/23 @ 15:[address] 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 Non-smoker Non-STEMI (non-ST elevated myocardial infarction) PAD (peripheral artery disease) Paraplegia Pressure ulcer Seizures Stroke/cerebrovascular accident Subarachnoid hemorrhage (~2003) Syringomyelia Therapeutic opioid-induced constipation (OIC) Uses wheelchair Wears glasses Home Medications furosemide 40 mg tablet 40 mg PO DAILY diuretic 08/11/18 [History Last Taken 10/13/23] atorvastatin 40 mg tablet (Lipitor) 40 mg PO QHS CHOLESTEROL 11/06/18 [History Last Taken 10/12/23] multivitamin,[id number] 27 mg-0.4 mg tablet 1 tab PO DAILY SUPPLEMENT 11/06/18 [History Last Taken 10/13/23] pyridoxine (vitamin B6) 100 mg tablet 100 mg PO DAILY SUPPLEMENT 11/06/18 [History Last Taken 10/13/23] tamsulosin 0.4 mg capsule 0.4 mg PO 1700 BPH 11/06/18 [History Last Taken 10/12/23] carvedilol 3.125 mg tablet 3.125 mg PO QHS heart 02/06/20 [History Last Taken 10/12/23] cyclobenzaprine 5 mg tablet 5 mg PO QHS pain 02/06/20 [History Last Taken 10/10/23] isosorbide mononitrate 10 mg tablet 10 mg PO QHS to dilate blood vessels in legs 02/06/20 [History Last Taken 10/12/23] losartan 25 mg tablet 12.5 mg PO DAILY stop if low bp per Eris Melendez MD 02/06/20 [History Last Taken 10/13/23] sulfamethoxazole 800 mg-trimethoprim 160 mg tablet (Bactrim DS) 1 tab PO DAILY to prevent Nocardia UTI 02/06/20 [History Last Taken 10/13/23] ascorbic acid (vitamin C) 1,000 mg tablet 500 mg PO BID supplement 10/12/20 [History Last Taken 10/13/23] cranberry fruit concentrate 250 mg chewable tablet (Azo Cranberry) 500 mg PO DAILY bladder 10/12/20 [History Last Taken 10/13/23] levothyroxine 50 mcg tablet 50 mcg PO DAILY thyroid 10/12/20 [History Last Taken 08/30/23] gabapentin 300 mg capsule 300 mg PO DAILY nerve pain 06/23/23 [History Last Taken 10/13/23] magnesium oxide 500 mg capsule 250 mg PO BID supplement 06/23/23 [History Last Taken 10/13/23] lithium carbonate 150 mg capsule 150 mg PO TID 08/17/23 [History Last Taken 10/13/23] clopidogrel 75 mg tablet (Plavix) 75 mg PO DAILY blood thinner #30 tabs 09/01/23 [Rx Last Taken 10/13/23] methadone 5 mg tablet See Rx Instructions .Route .COMPLEX Check with primary doctor 14 days #90 tabs 09/05/23 [Rx Last Taken 10/13/23] potassium chloride 20 mEq tablet,extended release 20 meq PO DAILY 09/13/23 [History Last Taken 10/13/23] amino acids-protein hydrolysate 17 gram-100 kcal/30 mL liquid packet (Pro-Stat AWC) 30 ea PO DAILY 10/13/23 [History Last Taken Unknown] doxepin 25 mg capsule 25 mg PO QHS 10/13/23 [History Last Taken 10/12/23] sennosides 8.6 mg tablet (Senna Laxative) 17.2 mg PO DAILY 10/13/23 [History Last Taken 10/13/23] topiramate 50 mg tablet 50 mg PO Q12H 10/13/23 [History Last Taken 10/13/23] Allergy/AdvReac Type Severity Reaction Status Date / Time Cephalosporins Allergy Intermediate Laryngospas Verified 10/13/23 14:14 ms Penicillins Allergy Intermediate Rash Verified 10/13/23 14:14 Iodinated Contrast Media Allergy Rash Verified 10/13/23 14:14 [CONTRASTS] heparin AdvReac Intermediate bruises Verified 10/13/23 14:14 easily Family History Father Heart disease Hypertension Sister Hypertension Brother Hypertension Surgical History History of appendectomy History of brain shunt (~2003) History of cholecystectomy History of embolic filter insertion History of laminectomy History of partial colectomy (~04/2022) History of total right knee replacement (TKR) Hx of tracheostomy S/P cholecystectomy S/P IVC filter S/P PAPERHANGER SUPERVISOR shunt Social History (Updated 10/13/23 @ 20:[address] Tracey Adkins MD) household members: spouse Smoking Status: Never smoker alcohol intake: current alcohol intake frequency: a few times a week substance use type: does not use caffeine: Yes Type: coffee Number of servings: 2 ROS Review of Systems ROS Unobtainable: due to mental condition Physical Exam Narrative Physical Examination: General: Intermittent confusion, awake. Disoriented to time and place. Not able to carry on conversation. HEENT: Atraumatic, PERRLA, EOMI, Normocephalic Oral: No Gingival or Mucosal Lesions/ Ulcerations Neck: Supple, No JVD, Negative Carotid Bruits Lungs: Air entry diminished in bilateral lung bases. No crepitation/rhonchi Cardiovascular: Regular rate, Regular Rhythm, Normal S1, Normal S2, systolic murmur. Murmurs Abdomen: Bowel Sounds Present, Soft, Non Tender, Non-Distended : No renal angle tenderness. No suprapubic tenderness. Extremities: No edema, Capillary Refill Less than 3 Seconds Skin: Chronic venous stasis/dermatitis. Superficial skin ulcer in right lateral lower leg seems venous ulcer, nonpressure ulcer. Stage II right ischial/buttock decubitus ulcer. Neurological: Cranial nerves II-XII grossly intact, DTR 2+/4. No acute focal neurological deficit. Generalized confusion. Incoherent speech. Psych/Mental Status: Flat affect. Possible dementia. Medical Records Data Medical Nutrition Assessment Dietitian: Malnutrition Criteria Met Start: 10/14/23 12:35 Freq: Status: Active Protocol: Document 10/17/23 09:50 AG (Rec: 10/17/23 09:50 AG [id number]) Nutrition Malnutrition Evidence of Malnutrition Exists Yes Malnutrition (severe): Acute Illness/Injury Evidenced By Suboptimal Energy Intake ( Severe),Weight Loss (Severe) Clinical Problem Acute Disease or Injury Related Malnutrition Etiology severe, acute malnutrition related to inadequate energy intake w/acute GI, COVID illnesses Signs/Symptoms as evidenced by estimated PO intake meeting <50% of estimated energy needs > 5 days, unintentional 8.5kg/11% wt loss x 1.5 months Status Active Problem Recommendation Dietitian Recommendations/Changes recommend advance diet as tolerated to regular- texture/ consistency per PAYABLE REPRESENTATIVE; Fred BID and Ensure Plus High Protein 120mL 4x/day w/ medpass when diet is advanced given evidence of malnutrition Lab / Micro Data 10/17/23 08:15 10/17/23 08:15 Labs: Laboratory Results - last 24 hr 10/17/23 08:15: WBC 4.3 L, RBC 3.45 L, Hgb 10.5 L, Hct 33.9 L, MCV 98.3 H, MCH 30.4, MCHC 31.0 L, RDW Std Deviation 50.0 H, RDW Coeff of Nayeli 14.1, Plt Count 205, MPV 9.7, Immature Gran % (Auto) 0.500, Neut % (Auto) 63.1, Lymph % (Auto) 23.3, [place] % (Auto) 9.4, Eos % (Auto) 3.2, Baso % (Auto) 0.5, Absolute Neuts (auto) 2.7, Absolute Lymphs (auto) 1.01, Nucleated RBC % 0, Sodium 139, Potassium 3.4 L, Chloride 112 H, Carbon Dioxide 22.0, Anion Gap 5, BUN 8, Creatinine 0.49 L, Estim Creat Clear Calc 51.23, Est GFR (MDRD) Af Amer 209, Est GFR (MDRD) Non-Af 172, BUN/Creatinine Ratio 16.4, Glucose 91, Calcium 7.8 L, Total Bilirubin 0.50, Direct Bilirubin 0.18, AST 25, ALT 27, Alkaline Phosphatase 85, Total Protein 6.4, Albumin 1.9 L, Globulin 4.5 H Assessment & Plan Assessment/Plan (1) Difficulty swallowing: QUALIFIERS: Dysphagia type: oropharyngeal phase Qualified Code(s): R13.12 - Dysphagia, oropharyngeal phase PLAN: 88-year-old gentleman with complicated past medical history resulting in paralysis who presents with dehydration, fatigue, weakness and altered mental status. He underwent a swallowing study after maintaining good mentation and he was deemed not safe to eat. I had a long talk with him and his at the bedside. Explained to them that he would possibly benefit from an evaluation of his upper GI tract and possible dilation of the upper GI tract. He was explained alternatives, risk, benefits including not withstanding bleeding, infection, sepsis, perforation, need for emergency or . He will have an ASA of 3 per procedure.
[2023-10-16] MEDS: hydrALAZINE 20 MG/ML Vial 10 MG IV ×2 (14:17→22:58)
--- NOTE | 2023-10-16 14:19 | PCM.CONS.GEN ---
Assessment & Plan Assessment/Plan (1) UTI (urinary tract infection): PLAN: ESBL ecoli uti - cont meropenem, plan on 5-7 days total. Once daily ertapenem IV or IM would be an option at discharge if course is not complete by that point. Will follow, thank you HPI Consult Data Date of Consult: 10/16/23 HPI Narrative Reason for Consultation: uti HPI Narrative: REGINA ROJAS, is a 88 M with h/o paraplegia, admitted 10/13 with encephalopathy over past week, altered speech. Found to have ESBL uti, admitted on meropenem. Pt unable to provide history. Denies abd pain, no fever or chills. Full ROS performed and neg except as noted above. 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 Non-smoker Non-STEMI (non-ST elevated myocardial infarction) PAD (peripheral artery disease) Paraplegia Pressure ulcer Seizures Stroke/cerebrovascular accident Subarachnoid hemorrhage (~2003) Syringomyelia Therapeutic opioid-induced constipation (OIC) Uses wheelchair Wears glasses Home Medications furosemide 40 mg tablet 40 mg PO DAILY diuretic 08/11/18 [History Last Taken 10/13/23] atorvastatin 40 mg tablet (Lipitor) 40 mg PO QHS CHOLESTEROL 11/06/18 [History Last Taken 10/12/23] multivitamin,mb-soff-[id number] 27 mg-0.4 mg tablet 1 tab PO DAILY SUPPLEMENT 11/06/18 [History Last Taken 10/13/23] pyridoxine (vitamin B6) 100 mg tablet 100 mg PO DAILY SUPPLEMENT 11/06/18 [History Last Taken 10/13/23] tamsulosin 0.4 mg capsule 0.4 mg PO 1700 BPH 11/06/18 [History Last Taken 10/12/23] carvedilol 3.125 mg tablet 3.125 mg PO QHS heart 02/06/20 [History Last Taken 10/12/23] cyclobenzaprine 5 mg tablet 5 mg PO QHS pain 02/06/20 [History Last Taken 10/10/23] isosorbide mononitrate 10 mg tablet 10 mg PO QHS to dilate blood vessels in legs 02/06/20 [History Last Taken 10/12/23] losartan 25 mg tablet 12.5 mg PO DAILY stop if low bp per Eris Melendez MD 02/06/20 [History Last Taken 10/13/23] sulfamethoxazole 800 mg-trimethoprim 160 mg tablet (Bactrim DS) 1 tab PO DAILY to prevent Nocardia UTI 02/06/20 [History Last Taken 10/13/23] ascorbic acid (vitamin C) 1,000 mg tablet 500 mg PO BID supplement 10/12/20 [History Last Taken 10/13/23] cranberry fruit concentrate 250 mg chewable tablet (Azo Cranberry) 500 mg PO DAILY bladder 10/12/20 [History Last Taken 10/13/23] levothyroxine 50 mcg tablet 50 mcg PO DAILY thyroid 10/12/20 [History Last Taken 08/30/23] gabapentin 300 mg capsule 300 mg PO DAILY nerve pain 06/23/23 [History Last Taken 10/13/23] magnesium oxide 500 mg capsule 250 mg PO BID supplement 06/23/23 [History Last Taken 10/13/23] lithium carbonate 150 mg capsule 150 mg PO TID 08/17/23 [History Last Taken 10/13/23] clopidogrel 75 mg tablet (Plavix) 75 mg PO DAILY blood thinner #30 tabs 09/01/23 [Rx Last Taken 10/13/23] methadone 5 mg tablet See Rx Instructions .Route .COMPLEX Check with primary doctor 14 days #90 tabs 09/05/23 [Rx Last Taken 10/13/23] potassium chloride 20 mEq tablet,extended release 20 meq PO DAILY 09/13/23 [History Last Taken 10/13/23] amino acids-protein hydrolysate 17 gram-100 kcal/30 mL liquid packet (Pro-Stat AWC) 30 ea PO DAILY 10/13/23 [History Last Taken Unknown] doxepin 25 mg capsule 25 mg PO QHS 10/13/23 [History Last Taken 10/12/23] sennosides 8.6 mg tablet (Senna Laxative) 17.2 mg PO DAILY 10/13/23 [History Last Taken 10/13/23] topiramate 50 mg tablet 50 mg PO Q12H 10/13/23 [History Last Taken 10/13/23] Allergy/AdvReac Type Severity Reaction Status Date / Time Cephalosporins Allergy Intermediate Laryngospas Verified 10/13/23 14:14 ms Penicillins Allergy Intermediate Rash Verified 10/13/23 14:14 Iodinated Contrast Media Allergy Rash Verified 10/13/23 14:14 [CONTRASTS] heparin AdvReac Intermediate bruises Verified 10/13/23 14:14 easily Family History Father Heart disease Hypertension Sister Hypertension Brother Hypertension Surgical History History of appendectomy History of brain shunt (~2003) History of cholecystectomy History of embolic filter insertion History of laminectomy History of partial colectomy (~04/2022) History of total right knee replacement (TKR) Hx of tracheostomy S/P cholecystectomy S/P IVC filter S/P VEST FRONT PRESSER shunt Social History (Updated 10/13/23 @ 20:[address] Tracey Adkins MD) household members: spouse Smoking Status: Never smoker alcohol intake: current alcohol intake frequency: a few times a week substance use type: does not use caffeine: Yes Type: coffee Number of servings: 2 Physical Exam Const Constitutional Narrative: oriented x1 General Appearance: lethargic HEENT normocephalic Eyes PERRL and EOMs intact bilaterally Neck supple and No nodes Resp normal air movement and clear to auscultation bilaterally Cardio regular rate and regular rhythm GI soft to palpation, non-tender and non-distended Extremity General Extremity: Negative for edema Skin no rashes or lesions noted Neuro CN's II-XII intact bilaterally Medical Records Data Medical Nutrition Assessment Dietitian: Malnutrition Criteria Met Start: 10/14/23 12:35 Freq: Status: Active Protocol: Document 10/14/23 12:35 (Rec: 10/14/23 12:35 [id number]) Nutrition Malnutrition Evidence of Malnutrition Exists Yes Malnutrition (severe): Acute Illness/Injury Evidenced By Suboptimal Energy Intake ( Severe),Weight Loss (Severe) Clinical Problem Acute Disease or Injury Related Malnutrition Etiology severe, acute malnutrition related to inadequate energy intake w/acute GI, COVID illnesses Signs/Symptoms as evidenced by estimated PO intake meeting <50% of estimated energy needs > 5 days, unintentional 8.5kg/11% wt loss x 1.5 months Status Active Problem Recommendation Dietitian Recommendations/Changes recommend advance diet as tolerated to regular- texture/ consistency per SCRUFF WORKER; Fred BID and Ensure Plus High Protein 120mL 4x/day w/ medpass when diet is advanced given evidence of malnutrition Lab / Micro Data Attestation: I reviewed the patient's lab results. 10/16/23 04:08 10/16/23 04:08 Labs: Laboratory Results - last 24 hr 10/16/23 04:08: WBC 5.6, RBC 3.12 L, Hgb 9.5 L, Hct 31.1 L, MCV 99.7 H, MCH 30.4, MCHC 30.5 L, RDW Std Deviation 50.9 H, RDW Coeff of Nayeli 13.9, Plt Count 170, MPV 10.3, Immature Gran % (Auto) 0.500, Neut % (Auto) 67.4, Lymph % (Auto) 22.0, [place] % (Auto) 6.6, Eos % (Auto) 2.8, Baso % (Auto) 0.7, Absolute Neuts (auto) 3.8, Absolute Lymphs (auto) 1.24, Nucleated RBC % 0, Sodium 144, Potassium 3.8, Chloride 118 H, Carbon Dioxide 19.0 L, Anion Gap 7, BUN 9, Creatinine 0.49 L, Estim Creat Clear Calc 51.30, Est GFR (MDRD) Af Amer 206, Est GFR (MDRD) Non-Af 170, BUN/Creatinine Ratio 18.2, Glucose 59 L, Calcium 7.7 L, Phosphorus 2.7, Vitamin B12 901
--- NOTE | 2023-10-16 15:55 | WOUNDNOTE ---
wound photo: right ischium
--- NOTE | 2023-10-16 15:56 | WOUNDNOTE ---
wound photo: buttocks
--- NOTE | 2023-10-16 15:57 | WOUNDNOTE ---
wound photo: right lower leg
[2023-10-16] MEDS: Atorvastatin Calcium 40 MG Tablet PO (21:21)
[2023-10-16] MEDS: Carvedilol 3.125 MG TABLET PO (21:22)
[2023-10-16] MEDS: Isosorbide Mononitrate 20 MG Tablet 10 MG PO (21:23)
[2023-10-16] MEDS: 0.9% Saline Lock 10 ML Syringe IV (22:59)
[2023-10-17] VITALS (11 sets, daily range): BP systolic 128–163; BP diastolic 62–77; PULSE 75–89; RESP 14–18; TEMP 36.3–37.1; O2SAT 95–98; BMI 21.6
--- NOTE | 2023-10-17 | IMM_PTH ---
PATIENT: REGINA ROJAS LOC: [facility] U#:[id number] AGE/SX: 88/M ROOM: [facility] RE10/13/[address]: Dr. Rafiq Ty MD : [id number] BED: 1 DIS: 10/18/2023 SPEC #: [id number] RECD: 10/20/23 12:43 STATUS: SOUAby REQ #: [id number] SHERIF: 10/17/23 00:[address]: Jose Martin Grover DEPT: IMMUNOHISTOCHEMISTRY RECD BY: Ophelia Lew ENTERED: 10/20/23 12:44 SP TYPE: IMMUNO OTHR DR: MD Dr. Eris Daugherty DO Dr. Eric Smith, MD Dr. Prakash Chand, MD Dr. Robert Leininger, MD Tissues: Esophagus, NOS Procedures: P53 (initial) KI-67 (add) MOC-31 (add) PHYSICIAN & INSTITUTION [address] [address] SPECIMEN INFORMATION: Tissue Source: Distal esophagus Clinical Info: Dysphagia Specimen Number: [id number] CPT code: 49526, 23762 x2 METHODOLOGY: Deparaffinized sections of prefer/formalin-fixed tissue or PAP/DQ stained slides are incubated with monoclonal/polyclonal antibodies/oligonucleotide probes. Localization is made via biotin free immunoperoxidase method. Appropriate controls are performed and reacted as expected. Results on target cell population are indicated in the following table: RESULTS: ANTIBODY / CLONE RESULT P53 (DO-7) negative, null pattern Ki-67 (30-9) positive, low MOC-31 (4561) positive These tests were developed and their performance characteristics determined by [facility]. They may not have been cleared or approved by the U.S. Food and Drug Administration. The FDA has determined that such clearance or approval is not necessary. The above immunohistochemical/dualISH markers are ordered and reviewed by the Pathologist. INTERPRETATION: Distal esophagus, biopsy: No evidence of dysplasia. AM:wil 10/23/2023
[2023-10-17] MEDS: hydrALAZINE 20 MG/ML Vial 10 MG IV (03:50)
[2023-10-17] MEDS: 0.9% Saline Lock 10 ML Syringe IV (03:51)
[2023-10-17] MEDS: 0.45% Normal Saline 1,000 ML 125 ML IV (05:08)
[2023-10-17] MEDS: Meropenem 1 GM in 0.9% Normal Saline (100mL MB+) 100 ML IV ×3 (06:29→20:26)
[2023-10-17 08:33] LABS: Absolute Lymphocyte Count 1.01 X10^3/uL (0.83-4.51); Absolute Neutrophil Count 2.7 X10^3/uL (2.0-7.7); Basophil# 0.02 X10^3/uL; Basophil% 0.5 % (0-1); Eosinophil# 0.14 X10^3/uL; Eosinophils% 3.2 % (0-5); Hematocrit 33.9 % (40-54); Hemoglobin 10.5 g/dL (13.0-16.5); Lymphocyte # 1.01 X10^3/ul (0.83-4.51); Lymphocyte % 23.3 % (19-41); Mean Corpuscular Hgb 30.4 pg (27.0-32.0); Mean Corpuscular Volume 98.3 fL (80-94); Mean Platelet Vol. 9.7 fl (6.2-12.0); Monocyte# 0.41 X10^3/uL; Monocyte% 9.4 % (0-10); NRBC Flagged by Analyzer 0 % (0-5); Neutrophil # 2.74 X10^3/uL (2.7-7.7); Neutrophil % 63.1 % (47-70); Platelet Count 205 K/mm3 (150-450); RBC Distribution Width CV 14.1 % (11.6-14.6); Red Blood Count 3.45 M/mm3 (4.6-6.2); White Blood Count 4.3 K/mm3 (4.4-11.0)
[2023-10-17 09:05] LABS: AST(SGOT) 25 U/L (15-37); Alanine Aminotransfer ALT/SGPT 27 U/L (16-61); Albumin, Serum 1.9 g/dL (3.2-5.0); Alkaline Phosphatase 85 U/L (45-117); Anion Gap 5 (5-15); BUN 8 mg/dL (7-18); BUN/Creat Ratio 16.4 RATIO (10-20); Bilirubin, Direct 0.18 mg/dL (0.00-0.30); Calcium,Total 7.8 mg/dL (8.5-10.1); Chloride 112 mmol/L (98-107); Creatinine, Serum 0.49 mg/dL (0.70-1.30); EST Glomerular Filtration Rate 172 mL/min (>60); Est Glom Filt Rate - Afr Amer 209 mL/min (>60); Estimated Creatinine Clearance 51.23 ml/min; Globulin 4.5 g/dL (2.2-4.2); Glucose 91 mg/dL (74-106); Potassium 3.4 mmol/L (3.5-5.1); Protein, Total 6.4 g/dL (6.4-8.2); Sodium Level 139 mmol/L (136-145)
[2023-10-17] MEDS: Senna Tablet 2 TABLET PO (09:17)
[2023-10-17] MEDS: Multivitamins,Ther W-Minerals Tablet 1 TABLET PO (09:18)
[2023-10-17] MEDS: Losartan Potassium 25 MG Tablet 12.5 MG PO (09:18)
[2023-10-17] MEDS: Ascorbic Acid 500 MG Tablet PO (09:18)
[2023-10-17] MEDS: Magnesium Chloride 64 MG Delay Rel.Tablet 128 MG PO (09:19)
[2023-10-17] MEDS: Pantoprazole Sodium 40 MG Tablet PO (09:20)
[2023-10-17] MEDS: Potassium Chloride Oral Tablet 20 MEQ PO (09:20)
[2023-10-17] MEDS: Aspirin 81 MG TAB.CHEW PO (09:20)
[2023-10-17] MEDS: Menthol/Lanolin/Calamine/Znox 113 GM Tube 1 APPLIC TOPICAL ×2 (09:22→20:21)
[2023-10-17] MEDS: Pyridoxine HCl 100 MG Tablet PO (09:22)
[2023-10-17] MEDS: Potassium Chloride 40 MEQ in Dextrose 5%-Water (1000mL Bag) 1,000 ML 50 MEQ IV ×2 (09:33→18:10)
--- NOTE | 2023-10-17 10:48 | PCM.PN.ID ---
Physical Exam Narrative No fever, no events overnight, sleeping this AM Const no apparent distress Resp normal air movement and clear to auscultation bilaterally Cardio regular rate and regular rhythm GI soft to palpation, non-tender and non-distended Skin no rashes or lesions noted ID ID: Route of nutrition/ use of supplements: [] Nutritional Intake: [] IV Site: [] Wheeler Catheter: [] Assessment & Plan Assessment/Plan (1) UTI (urinary tract infection): PLAN: ESBL ecoli uti - cont meropenem, plan on 5-7 days total, started 10/13. Plan on stopping tomorrow. Will follow
--- NOTE | 2023-10-17 10:55 | CASEMGMT ---
DEBBIE received a call from [facility] inquiring if patient will be on IV antibiotics at discharge. DEBBIE looked at Infectious Disease Dr.'s note and patient's last day for the IV antibiotic will be tomorrow 10-18-23. Nicolasa WILL
--- NOTE | 2023-10-17 12:19 | PN.HOSP_ITS ---
Reason for Visit Reason for Visit: Diagnoses Anemia, unspecified (10/13/23) Hyperosmolality and hypernatremia (10/13/23) Hypokalemia (10/13/23) Encephalopathy, unspecified (10/13/23) Urinary tract infection, site not specified (10/13/23) Objective Data Objective Data Vital Signs: Vital Signs Temp Pulse Resp BP Pulse Ox O2 Del Method 97.8 F 82 16 153/73 H 98 Room Air 10/17/23 09:11 10/17/23 09:11 10/17/23 09:11 10/17/23 09:11 10/17/23 09:11 10/17/23 09:11 Oxygen Delivery Method Room Air Weight: 150 lb 9.211 oz Body Mass Index (BMI) 21.6 Intake & Output: Intake and Output for Last 24 Hours 10/15/23 10/16/23 10/17/23 23:59 23:59 23:59 Intake Total 3818.34 / 3818.34 3333.7533 / 3333.7533 1815 / 1815 Output Total 1125 / 2275 4150 / 4150 750 / 750 Balance 2693.34 / 1543.34 -816.2467 / -816.2467 1065 / 1065 Medical Nutrition Assessment Dietitian: Malnutrition Criteria Met Start: 10/14/23 12:35 Freq: Status: Active Protocol: Document 10/17/23 09:50 AG (Rec: 10/17/23 09:50 AG [id number]) Nutrition Malnutrition Evidence of Malnutrition Exists Yes Malnutrition (severe): Acute Illness/Injury Evidenced By Suboptimal Energy Intake ( Severe),Weight Loss (Severe) Clinical Problem Acute Disease or Injury Related Malnutrition Etiology severe, acute malnutrition related to inadequate energy intake w/acute GI, COVID illnesses Signs/Symptoms as evidenced by estimated PO intake meeting <50% of estimated energy needs > 5 days, unintentional 8.5kg/11% wt loss x 1.5 months Status Active Problem Recommendation Dietitian Recommendations/Changes recommend advance diet as tolerated to regular- texture/ consistency per CLINICAL ABSTRACTOR; Fred BID and Ensure Plus High Protein 120mL 4x/day w/ medpass when diet is advanced given evidence of malnutrition Lab / Micro Data 10/17/23 08:15 10/17/23 08:15 Labs: Laboratory Results - last 24 hr 10/17/23 08:15: WBC 4.3 L, RBC 3.45 L, Hgb 10.5 L, Hct 33.9 L, MCV 98.3 H, MCH 30.4, MCHC 31.0 L, RDW Std Deviation 50.0 H, RDW Coeff of Nayeli 14.1, Plt Count 205, MPV 9.7, Immature Gran % (Auto) 0.500, Neut % (Auto) 63.1, Lymph % (Auto) 23.3, [place] % (Auto) 9.4, Eos % (Auto) 3.2, Baso % (Auto) 0.5, Absolute Neuts (auto) 2.7, Absolute Lymphs (auto) 1.01, Nucleated RBC % 0, Sodium 139, Potassium 3.4 L, Chloride 112 H, Carbon Dioxide 22.0, Anion Gap 5, BUN 8, Creatinine 0.49 L, Estim Creat Clear Calc 51.23, Est GFR (MDRD) Af Amer 209, Est GFR (MDRD) Non-Af 172, BUN/Creatinine Ratio 16.4, Glucose 91, Calcium 7.8 L, Total Bilirubin 0.50, Direct Bilirubin 0.18, AST 25, ALT 27, Alkaline Phosphatase 85, Total Protein 6.4, Albumin 1.9 L, Globulin 4.5 H Micro: Microbiology 10/13/23 17:15 Urine Catheter - Catheter Urine Culture - Final ESBL Escherichia coli Physical Exam Narrative Physical Examination: General: Intermittent confusion, awake. Disoriented to time and place. Not able to carry on conversation. HEENT: Atraumatic, PERRLA, EOMI, Normocephalic Oral: No Gingival or Mucosal Lesions/ Ulcerations Neck: Supple, No JVD, Negative Carotid Bruits Lungs: Air entry diminished in bilateral lung bases. No crepitation/rhonchi Cardiovascular: Regular rate, Regular Rhythm, Normal S1, Normal S2, systolic murmur. Murmurs Abdomen: Bowel Sounds Present, Soft, Non Tender, Non-Distended : No renal angle tenderness. No suprapubic tenderness. Extremities: No edema, Capillary Refill Less than 3 Seconds Skin: Chronic venous stasis/dermatitis. Superficial skin ulcer in right lateral lower leg seems venous ulcer, nonpressure ulcer. Stage II right ischial/buttock decubitus ulcer. Neurological: Cranial nerves II-XII grossly intact, DTR 2+/4. No acute focal neurological deficit. Generalized confusion. Incoherent speech. Psych/Mental Status: Flat affect. Possible dementia. Assessment & Plan Assessment/Plan (1) UTI (urinary tract infection): PLAN: ESBL E. coli. On Meropenem given h/o PCN allergy Culture shows ESBL E. coli at 2000 200,000 colonies, sensitive to amikacin, cefotetan, imipenem, and meropenem. 10/17: ID recommended twice meropenem tomorrow. ID is consulted for long-term recommendation. (2) Encephalopathy: PLAN: acute. 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 Methadone inhaler temporarily. [place] level is low therefore it discontinued after discussion with his from previous hospitalist. Pt has been on methadone chronically, so this presents a dilemma with his encephalopathy, but also at risk for opiate withdrawal, which could exacerbated encephalopathy. Therefore methadone was discontinued and oxycodone as needed was started. TSH elevated, but FT4 WNL MRI brain showed no acute process. Right frontal ventriculostomy catheter on the right. Moderate to severe oropharyngeal dysphagia: Patient was not cooperative therefore MBS was suboptimal. Recommended GI consult due to decreased upper esophageal opening with possibility of upper esophageal stenosis. Patient is moderate to high risk of anesthesia because of altered mental status and any and states he will prolong his confusion. GI consulted. 10/17: Plan for EGD today. (3) Hypernatremia: PLAN: Ongoing, but improving. I suspect due to dehydration, will change IVF to 0.45 NS (4) Hypokalemia: PLAN: POA Improved, but down again. Replace. Magnesium was 2.4 on the 17th. Phosphorous was 2.6 on the 17th. Recheck phosphorous and replace if low. Unclear if component of refeeding syndrome. (5) Anemia: QUALIFIERS: Anemia type: unspecified type Qualified Code(s): D64.9 - Anemia, unspecified PLAN: Hg dropped from 10.6 to 9.8. Unclear significance at this time, whether this is accurate or not, such that if this is dilutional from the IV fluids. Continue to monitor at this time. Does appear to be macrocytic, however. TSH was elevated but free T4 was normal. B12 level normal. Folic acid level normal. 10/17: Hemoglobin 10.5/33.9 on baseline. PLAN: Plan Chronic conditions: * Hypertension: Continue coreg, isosorbide, losartan when able * hyperlipidemia: statin when able. * PAD: clopidogrel when able * Chronic macrocytic anemia: stable. 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 Give his current presentation we will maintain n.p.o. status pending speech therapy evaluation to be cautious and judiciously hydrate as noted.#10. Hypothyroidism, chart reported: Noted in chart history, not on any regimen, TSH and free T4 requested as noted this certainly could contribute to patient currently. 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 * BPH: tamsulosin when able. * GERD: We will temporally place on IV PPI given n.p.o. status. * Chronic pain syndrome: Reviewed OARRS, he has received methadone chronically. Caution with it's use as mentioned above. Total time of the visit including total time spent in counseling or coordination of care, (more than 50% of the total time, spent in obtaining medical information from nurses and other ancillary care providers,explaining to the patient about labs, imaging, diagnosis and management of active complex medical conditions), speech therapist GI consult, review of labs and imaging is 40 m inutes. DVT prophylaxis: SCDs CODE status: per discussion with admitting physician and family: DNR-CCA, no intubation status. Charges/Coding Visit Charges Inpatient E&M: 42649 Subs Hosp L2
--- NOTE | 2023-10-17 15:35 | ESO_PTH ---
PATIENT: REGINA ROJAS LOC: [facility] U#:[id number] AGE/SX: 88/M ROOM: [facility] RE10/13/[address]: Dr. Rafiq Ty MD : 1935 BED: 1 DIS: 10/18/2023 SPEC #: [id number] RECD: 10/18/23 09:26 STATUS: AZAR REKris #: [id number] SHERIF: 10/17/23 15:[address]: Jose Martin Grover DEPT: SURGICAL PATHOLOGY RECD BY: Shanell Jordan ENTERED: 10/18/23 09:26 SP TYPE: ESOPH BX OTHR DR: MD Dr. Eris Daugherty DO Dr. Eric Smith, MD Dr. Prakash Chand, MD Dr. Robert Leininger, MD Tissues: Esophagus, NOS Procedures: Special Stain Group II Surgery Specimen Level IV Alcian Blue/PAS (control) Comments: @ Ordering doctor for SUIV edited from to @ by NELSON at 10/18/23 3023 @ Submitting doctor edited from to @ by ANIOD at 10/18/23 2548 HEADER OPERATION: EGD with biopsy and dilation PRE-OP DIAGNOSIS: Dysphagia TISSUE SUBMITTED: Distal esophagus biopsy MICROSCOPIC DIAGNOSIS Distal esophagus, biopsy: Gastroesophageal junctional mucosa with mild chronic inflammation. 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 See comment. AM:wil 10/20/2023 COMMENT Alcian blue/PAS stain with matched control supports the above diagnosis. Immunohistochemistry ([id number]) for P53 and Ki-67 will be performed and results will be reported separately. MICROSCOPIC DESCRIPTION Slides are reviewed. GROSS DESCRIPTION Received in fixative is one container labeled with the patient's name and designated distal esophagus. The specimen consists of multiple irregular fragments of light galvez soft tissue that in aggregate measure 1.0 x 0.3 x 0.1 cm. The specimen is totally submitted in one cassette. / AM:wil 10/18/2023 TC:3 CPT: 21004, 26956
--- NOTE | 2023-10-17 15:55 | OP.CCLET_ITS ---
10/17/2023 Eris Melendez [address] [place] [address] Re : Upper GI endoscopy procedure for Skyler Llanesesy Dear Dr. Melendez This procedure was performed on Tuesday, October 17, 2023. My impressions and recommendations are as follows: Impressions : - Esophageal plaques were found, consistent with candidiasis. - LA Grade A reflux esophagitis with no bleeding. Biopsied. - Benign-appearing esophageal stenosis. Dilated. - No gross lesions in the entire stomach. - Normal first portion of the duodenum. - biliary stent seen in the second portion of the duodenum Recommendations : - [facility]. - Resume previous diet. - Continue present medications. - Await pathology results. -Fluconazole 200mg daily x 14 days My findings are described in the full procedure note, which is enclosed. If I can be of further assistance, please feel free to contact me at . Sincerely, Jose Martin Grover, 10/17/2023 3:54:47 PM This report has been signed electronically.
--- NOTE | 2023-10-17 15:55 | OP.EGD_ITS ---
Patient Name: Skyler Sabillon Procedure Date: 10/17/2023 3:22 PM Date of : 1935 Age: 88 Procedure: Upper GI endoscopy Indications: Dysphagia Providers: Jose Martin Grover DO Medicines: Monitored Anesthesia Care Patient Profile: This is an 88 year old male. Refer to note in patient chart for documentation of history and physical. Patient has symptoms of chronic dysphagia and dysphagia with both liquids and solids. Complications: No immediate complications. Procedure: Pre-Anesthesia Assessment: - Prior to the procedure, a History and Physical was performed, and patient medications and allergies were reviewed. The patient is competent. The risks and benefits of the procedure and the sedation options and risks were discussed with the patient. All questions were answered and informed consent was obtained. Patient identification and proposed procedure were verified by the physician in the pre-procedure area. Mental Status Examination: alert and oriented. Airway Examination: normal oropharyngeal airway and neck mobility. Respiratory Examination: clear to auscultation. CV Examination: normal. Prophylactic Antibiotics: The patient does not require prophylactic antibiotics. Prior Anticoagulants: The patient has taken no anticoagulant or antiplatelet agents. ASA Grade Assessment: III - A patient with severe systemic disease. After reviewing the risks and benefits, the patient was deemed in satisfactory condition to undergo the procedure. The anesthesia plan was to use monitored anesthesia care (MAC). Immediately prior to administration of medications, the patient was re-assessed for adequacy to receive sedatives. The heart rate, respiratory rate, oxygen saturations, blood pressure, adequacy of pulmonary ventilation, and response to care were monitored throughout the procedure. The physical status of the patient was re-assessed after the procedure. After obtaining informed consent, the endoscope was passed under direct vision. Throughout the procedure, the patient's blood pressure, pulse, and oxygen saturations were monitored continuously. The Endoscope was introduced through the mouth, and advanced to the second part of duodenum. The upper GI endoscopy was accomplished without difficulty. The patient tolerated the procedure well. Scope In: 3:42:04 PM Scope Out: 3:47:35 PM Total Procedure Duration Time 0 hours 5 minutes 31 seconds Findings: Patchy, white plaques were found in the upper third of the esophagus. LA Grade A (one or more mucosal breaks less than 5 mm, not extending between tops of 2 mucosal folds) esophagitis with no bleeding was found 37 to 39 cm from the incisors. Biopsies were taken with a cold forceps for histology. Verification of patient identification for the specimen was done. Estimated blood loss was minimal. One benign-appearing, intrinsic moderate stenosis was found at the cricopharyngeus. This stenosis measured 2 mm (inner diameter) x 3 cm (in length). The stenosis was traversed. A guidewire was placed and the scope was withdrawn. Dilation was performed with a Savary dilator with no resistance at 60 Fr. The dilation site was examined and showed moderate mucosal disruption. Estimated blood loss was minimal. No gross lesions were noted in the entire examined stomach. The first portion of the duodenum was normal. Impression: - Esophageal plaques were found, consistent with candidiasis. - LA Grade A reflux esophagitis with no bleeding. Biopsied. - Benign-appearing esophageal stenosis. Dilated. - No gross lesions in the entire stomach. - Normal first portion of the duodenum. - biliary stent seen in the second portion of the duodenum Recommendation: - [facility]. - Resume previous diet. - Continue present medications. - Await pathology results. -Fluconazole 200mg daily x 14 days Procedure Code(s): --- Professional --- 22085, Esophagogastroduodenoscopy, flexible, transoral; with insertion of guide wire followed by passage of dilator(s) through esophagus over guide wire 54900, 59,51, Esophagogastroduodenoscopy, flexible, transoral; with biopsy, single or multiple CPT copyright 2021 [employer]. All rights reserved. The codes documented in this report are preliminary and upon classics professor review may be revised to meet current compliance requirements. Jose Martin Grover DO 10/17/2023 3:54:47 PM This report has been signed electronically. Number of Addenda: 0 Note Initiated On: 10/17/2023 3:22 PM
[2023-10-17] MEDS: Tamsulosin HCl 0.4 MG Capsule PO (16:49)
[2023-10-17] MEDS: Fluconazole 100 MG Tablet 200 MG PO (16:49)
--- NOTE | 2023-10-17 18:24 | NURSING ---
Reviewed charting with Ester Spivey RN
[2023-10-17] MEDS: Carvedilol 3.125 MG TABLET PO (20:21)
[2023-10-18 02:45] VITALS: BP 149/68; PULSE 77; RESP 16; TEMP 36.6; O2SAT 97
[2023-10-18 05:17] VITALS: BMI 21.7
[2023-10-18] MEDS: Meropenem 1 GM in 0.9% Normal Saline (100mL MB+) 100 ML IV (05:17)
[2023-10-18 07:50] VITALS: BP 153/73; PULSE 80; RESP 18; TEMP 36.5; O2SAT 95
--- NOTE | 2023-10-18 08:15 | PN.HOSP_ITS ---
Reason for Visit Reason for Visit: Diagnoses Anemia, unspecified (10/13/23) Hyperosmolality and hypernatremia (10/13/23) Hypokalemia (10/13/23) Encephalopathy, unspecified (10/13/23) Urinary tract infection, site not specified (10/13/23) Dysphagia, oropharyngeal phase (10/13/23) Objective Data Objective Data Vital Signs: Vital Signs Temp Pulse Resp BP Pulse Ox O2 Del Method 97.7 F L 80 18 153/73 H 95 Room Air 10/18/23 07:50 10/18/23 07:50 10/18/23 07:50 10/18/23 07:50 10/18/23 07:50 10/18/23 07:50 Oxygen Delivery Method Room Air Weight: 151 lb 0.266 oz Body Mass Index (BMI) 21.7 Intake & Output: Intake and Output for Last 24 Hours 10/16/23 10/17/23 10/18/23 23:59 23:59 23:59 Intake Total 3333.7533 / 3333.7533 2365.83 / 2365.83 120 / 120 Output Total 4150 / 4150 1999 / 3300 1650 / 1650 Balance -816.2467 / -816.2467 365.83 / -934.17 -1530 / -1530 Medical Nutrition Assessment Dietitian: Malnutrition Criteria Met Start: 10/14/23 12:35 Freq: Status: Active Protocol: Document 10/17/23 09:50 AG (Rec: 10/17/23 09:50 AG [id number]) Nutrition Malnutrition Evidence of Malnutrition Exists Yes Malnutrition (severe): Acute Illness/Injury Evidenced By Suboptimal Energy Intake ( Severe),Weight Loss (Severe) Clinical Problem Acute Disease or Injury Related Malnutrition Etiology severe, acute malnutrition related to inadequate energy intake w/acute GI, COVID illnesses Signs/Symptoms as evidenced by estimated PO intake meeting <50% of estimated energy needs > 5 days, unintentional 8.5kg/11% wt loss x 1.5 months Status Active Problem Recommendation Dietitian Recommendations/Changes recommend advance diet as tolerated to regular- texture/ consistency per PRIVATE EQUITY ASSOCIATE; Fred BID and Ensure Plus High Protein 120mL 4x/day w/ medpass when diet is advanced given evidence of malnutrition Lab / Micro Data 10/17/23 08:15 10/17/23 08:15 Labs: Laboratory Results - last 24 hr 10/17/23 08:15: WBC 4.3 L, RBC 3.45 L, Hgb 10.5 L, Hct 33.9 L, MCV 98.3 H, MCH 30.4, MCHC 31.0 L, RDW Std Deviation 50.0 H, RDW Coeff of Nayeli 14.1, Plt Count 205, MPV 9.7, Immature Gran % (Auto) 0.500, Neut % (Auto) 63.1, Lymph % (Auto) 23.3, [place] % (Auto) 9.4, Eos % (Auto) 3.2, Baso % (Auto) 0.5, Absolute Neuts (auto) 2.7, Absolute Lymphs (auto) 1.01, Nucleated RBC % 0, Sodium 139, Potassium 3.4 L, Chloride 112 H, Carbon Dioxide 22.0, Anion Gap 5, BUN 8, Creatinine 0.49 L, Estim Creat Clear Calc 51.23, Est GFR (MDRD) Af Amer 209, Est GFR (MDRD) Non-Af 172, BUN/Creatinine Ratio 16.4, Glucose 91, Calcium 7.8 L, Total Bilirubin 0.50, Direct Bilirubin 0.18, AST 25, ALT 27, Alkaline Phosphatase 85, Total Protein 6.4, Albumin 1.9 L, Globulin 4.5 H Micro: Microbiology 10/13/23 17:15 Urine Catheter - Catheter Urine Culture - Final ESBL Escherichia coli Physical Exam Narrative Physical Examination: General: Intermittent confusion, awake. Disoriented to time and place. Not able to carry on conversation. HEENT: Atraumatic, PERRLA, EOMI, Normocephalic Oral: No Gingival or Mucosal Lesions/ Ulcerations Neck: Supple, No JVD, Negative Carotid Bruits Lungs: Air entry diminished in bilateral lung bases. No crepitation/rhonchi Cardiovascular: Regular rate, Regular Rhythm, Normal S1, Normal S2, systolic murmur. Murmurs Abdomen: Bowel Sounds Present, Soft, Non Tender, Non-Distended : No renal angle tenderness. No suprapubic tenderness. Extremities: No edema, Capillary Refill Less than 3 Seconds Skin: Chronic venous stasis/dermatitis. Superficial skin ulcer in right lateral lower leg seems venous ulcer, nonpressure ulcer. Stage II right ischial/buttock decubitus ulcer. Neurological: Cranial nerves II-XII grossly intact, DTR 2+/4. No acute focal neurological deficit. Generalized confusion. Incoherent speech. Psych/Mental Status: Flat affect. Possible dementia. Assessment & Plan Assessment/Plan (1) UTI (urinary tract infection): PLAN: ESBL E. coli. On Meropenem given h/o PCN allergy Culture shows ESBL E. coli at 2000 200,000 colonies, sensitive to amikacin, cefotetan, imipenem, and meropenem. 10/17: ID recommended twice meropenem tomorrow. ID is consulted for long-term recommendation. (2) Encephalopathy: PLAN: acute. 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 Methadone inhaler temporarily. [place] level is low therefore it discontinued after discussion with his from previous hospitalist. Pt has been on methadone chronically, so this presents a dilemma with his encephalopathy, but also at risk for opiate withdrawal, which could exacerbated encephalopathy. Therefore methadone was discontinued and oxycodone as needed was started. TSH elevated, but FT4 WNL MRI brain showed no acute process. Right frontal ventriculostomy catheter on the right. Moderate to severe oropharyngeal dysphagia: Patient was not cooperative therefore MBS was suboptimal. Recommended GI consult due to decreased upper esophageal opening with possibility of upper esophageal stenosis. Patient is moderate to high risk of anesthesia because of altered mental status and any and states he will prolong his confusion. GI consulted. 10/17: Plan for EGD today. Impressions : - Esophageal plaques were found, consistent with candidiasis. - LA Grade A reflux esophagitis with no bleeding. Biopsied. - Benign-appearing esophageal stenosis. Dilated. - No gross lesions in the entire stomach. - Normal first portion of the duodenum. - biliary stent seen in the second portion of the duodenum Recommendations : - [facility]. - Resume previous diet. - Continue present medications. - Await pathology results. -Fluconazole 200mg daily x 14 days (3) Hypernatremia: PLAN: Ongoing, but improving. I suspect due to dehydration, will change IVF to 0.45 NS (4) Hypokalemia: PLAN: POA Improved, but down again. Replace. Magnesium was 2.4 on the 17th. Phosphorous was 2.6 on the 17th. Recheck phosphorous and replace if low. Unclear if component of refeeding syndrome. (5) Anemia: QUALIFIERS: Anemia type: unspecified type Qualified Code(s): D64.9 - Anemia, unspecified PLAN: Hg dropped from 10.6 to 9.8. Unclear significance at this time, whether this is accurate or not, such that if this is dilutional from the IV fluids. Continue to monitor at this time. Does appear to be macrocytic, however. TSH was elevated but free T4 was normal. B12 level normal. Folic acid level normal. 10/17: Hemoglobin 10.5/33.9 on baseline. PLAN: Plan Chronic conditions: * Hypertension: Continue coreg, isosorbide, losartan when able * hyperlipidemia: statin when able. * PAD: clopidogrel when able * Chronic macrocytic anemia: stable. 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 Give his current presentation we will maintain n.p.o. status pending speech therapy evaluation to be cautious and judiciously hydrate as noted.#10. Hypothyroidism, chart reported: Noted in chart history, not on any regimen, TSH and free T4 requested as noted this certainly could contribute to patient currently. 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 * BPH: tamsulosin when able. * GERD: We will temporally place on IV PPI given n.p.o. status. * Chronic pain syndrome: Reviewed OARRS, he has received methadone chronically. Caution with it's use as mentioned above. Total time of the visit including total time spent in counseling or coordination of care, (more than 50% of the total time, spent in obtaining medical information from nurses and other ancillary care providers,explaining to the patient about labs, imaging, diagnosis and management of active complex medical conditions), speech therapist GI consult, review of labs and imaging is 40 minutes. DVT prophylaxis: SCDs CODE status: per discussion with admitting physician and family: DNR-CCA, no intubation status.
[2023-10-18 08:40] LABS: Absolute Lymphocyte Count 0.79 X10^3/uL (0.83-4.51); Absolute Neutrophil Count 2.8 X10^3/uL (2.0-7.7); Basophil# 0.04 X10^3/uL; Eosinophil# 0.14 X10^3/uL; Eosinophils% 3.4 % (0-5); Hemoglobin 10.6 g/dL (13.0-16.5); Lymphocyte # 0.79 X10^3/ul (0.83-4.51); Mean Corp Hgb Conc 32.1 g/dL (32-36); Mean Corpuscular Hgb 31.8 pg (27.0-32.0); Mean Corpuscular Volume 99.1 fL (80-94); Mean Platelet Vol. 9.8 fl (6.2-12.0); Monocyte# 0.39 X10^3/uL; Monocyte% 9.4 % (0-10); NRBC Flagged by Analyzer 0 % (0-5); Neutrophil # 2.77 X10^3/uL (2.7-7.7); Neutrophil % 66.7 % (47-70); Platelet Count 193 K/mm3 (150-450); RBC Distribution Width CV 14.2 % (11.6-14.6); RBC Distribution Width SD 51.3 fl (35.1-43.9); Red Blood Count 3.33 M/mm3 (4.6-6.2); White Blood Count 4.2 K/mm3 (4.4-11.0)
[2023-10-18] MEDS: Enoxaparin 40 MG/0.4 ML Syringe SC (08:52)
[2023-10-18] MEDS: Aspirin 81 MG TAB.CHEW PO (08:53)
[2023-10-18] MEDS: Losartan Potassium 25 MG Tablet 12.5 MG PO (08:55)
[2023-10-18] MEDS: Magnesium Chloride 64 MG Delay Rel.Tablet 128 MG PO (08:55)
[2023-10-18] MEDS: Potassium Chloride Oral Tablet 20 MEQ PO (08:56)
[2023-10-18] MEDS: Senna Tablet 2 TABLET PO (08:57)
[2023-10-18] MEDS: Ascorbic Acid 500 MG Tablet PO (08:57)
[2023-10-18] MEDS: Pyridoxine HCl 100 MG Tablet PO (08:58)
[2023-10-18] MEDS: Menthol/Lanolin/Calamine/Znox 113 GM Tube 1 APPLIC TOPICAL (08:59)
--- NOTE | 2023-10-18 09:08 | CASEMGMT ---
Discharge Planning Updates sent to [facility] via [employer]. Call placed to check on status of precert. Precert is still pending at this time. Admissions will not be working on Monday but we will be notified if precert is obtain over holiday. Erna Hughes, Discharge Planning Asst.
[2023-10-18 09:17] LABS: Anion Gap 2 (5-15); BUN 8 mg/dL (7-18); BUN/Creat Ratio 15.2 RATIO (10-20); Calcium,Total 7.8 mg/dL (8.5-10.1); Chloride 112 mmol/L (98-107); Creatinine, Serum 0.53 mg/dL (0.70-1.30); EST Glomerular Filtration Rate 157 mL/min (>60); Est Glom Filt Rate - Afr Amer 190 mL/min (>60); Estimated Creatinine Clearance 51.38 ml/min; Glucose 118 mg/dL (74-106); Potassium 3.7 mmol/L (3.5-5.1); Sodium Level 138 mmol/L (136-145)
--- NOTE | 2023-10-18 09:50 | TREXTCAR_ITS ---
Diet Diet Order/Speech Therapy: 10/18/23 12:10 Diet: Regular - General Food consistency:: Pureed Liquid Consistency:: [place]/Mildly Thick Is pt able to select menu?: No Diet Comments: TOTAL FEED, liquid by tsp, food/drink if fully alert, monitor lung sounds Routine Orders/Code Status Suppository Type: Dulcolax 10mg Suppository Frequency: Daily PRN Wound(s) coccyx/bilateral buttocks: Wound Type: Pressure Injury right lateral lower leg: Wound Type: abrasion/? pressure Dressing Change: Mepilex right ischium: Wound Type: Pressure Injury Dressing Change: Mepilex buttocks: Wound Type: Pressure Injury Dressing Change: Mepilex Problem/Diagnosis (1) UTI (urinary tract infection): Status: Acute Code(s): N39.0 - Urinary tract infection, site not specified Plan: ESBL E. coli. On Meropenem given h/o PCN allergy Culture shows ESBL E. coli at 2000 200,000 colonies, sensitive to amikacin, cefotetan, imipenem, and meropenem. 10/17: ID recommended twice meropenem tomorrow. ID is consulted for long-term recommendation. (2) Encephalopathy: Status: Acute Code(s): G93.40 - Encephalopathy, unspecified Plan: acute. 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 Methadone inhaler temporarily. [place] level is low therefore it discontinued after discussion with his from previous hospitalist. Pt has been on methadone chronically, so this presents a dilemma with his encephalopathy, but also at risk for opiate withdrawal, which could exacerbated encephalopathy. Therefore methadone was discontinued and oxycodone as needed was started. TSH elevated, but FT4 WNL MRI brain showed no acute process. Right frontal ventriculostomy catheter on the right. Moderate to severe oropharyngeal dysphagia: Patient was not cooperative therefore MBS was suboptimal. Recommended GI consult due to decreased upper esophageal opening with possibility of upper esophageal stenosis. Patient is moderate to high risk of anesthesia because of altered mental status and any and states he will prolong his confusion. GI consulted. 10/17: Plan for EGD today. Impressions : - Esophageal plaques were found, consistent with candidiasis. - LA Grade A reflux esophagitis with no bleeding. Biopsied. - Benign-appearing esophageal stenosis. Dilated. - No gross lesions in the entire stomach. - Normal first portion of the duodenum. - biliary stent seen in the second portion of the duodenum Recommendations : - [facility]. - Resume previous diet. - Continue present medications. - Await pathology results. -Fluconazole 200mg daily x 14 days (3) Hypernatremia: Status: Acute Code(s): E87.0 - Hyperosmolality and hypernatremia Plan: Ongoing, but improving. I suspect due to dehydration, will change IVF to 0.45 NS (4) Hypokalemia: Status: Acute Code(s): E87.6 - Hypokalemia Plan: POA Improved, but down again. Replace. Magnesium was 2.4 on the 17th. Phosphorous was 2.6 on the . Recheck phosphorous and replace if low. Unclear if component of refeeding syndrome. (5) Anemia: Status: Acute Code(s): D64.9 - Anemia, unspecified Plan: Hg dropped from 10.6 to 9.8. Unclear significance at this time, whether this is accurate or not, such that if this is dilutional from the IV fluids. Continue to monitor at this time. Does appear to be macrocytic, however. TSH was elevated but free T4 was normal. B12 level normal. Folic acid level normal. 10/17: Hemoglobin 10.5/33.9 on baseline. Plan Chronic conditions: * Hypertension: Continue coreg, isosorbide, losartan when able * hyperlipidemia: statin when able. * PAD: clopidogrel when able * Chronic macrocytic anemia: stable. 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 Give his current presentation we will maintain n.p.o. status pending speech therapy evaluation to be cautious and judiciously hydrate as noted.#10. Hypothyroidism, chart reported: Noted in chart history, not on any regimen, TSH and free T4 requested as noted this certainly could contribute to patient currently. 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 * BPH: tamsulosin when able. * GERD: We will temporally place on IV PPI given n.p.o. status. * Chronic pain syndrome: Reviewed OARRS, he has received methadone chronically. Caution with it's use as mentioned above. Total time of the visit including total time spent in counseling or coordination of care, (more than 50% of the total time, spent in obtaining medical information from nurses and other ancillary care providers,explaining to the patient about labs, imaging, diagnosis and management of active complex medical conditions), speech therapist GI consult, review of labs and imaging is 40 minutes. DVT prophylaxis: SCDs CODE status: per discussion with admitting physician and family: DNR-CCA, no intubation status. Allergies/Procedures Done in Hospital Allergies Cephalosporins Allergy (Intermediate, Verified 10/13/23 14:14) Laryngospasms Penicillins Allergy (Intermediate, Verified 10/13/23 14:14) Rash Iodinated Contrast Media [CONTRASTS] Allergy (Verified 10/13/23 14:14) Rash heparin Adverse Reaction (Intermediate, Verified 10/13/23 14:14) bruises easily Type of Care/Length of Stay Estimated LOS: More Than 30 Days Type of Care Needed: Intermediate Rehab Potential: Poor Prognosis: Poor Additional Orders/Day of Discharge Day of Discharge: 10/18/23 Dietary and Speech Recommendations Dietitian Recommendations/Changes: recommend advance diet as tolerated to regular- texture/consistency per PEDIATRIC CRITICAL CARE NURSE; Fred BID and Ensure Plus High Protein 120mL 4x/day w/ medpass when diet is advanced given evidence of malnutrition Discharge Plan Admission Admit Date/Time: 10/13/23 16:35 Primary Reason for Your Visit: Acute encephalopathy with history of dementia, oropharyngeal dysphagia. Attending Provider: Rafiq Ty Primary Care Provider: Eris Melendez Consulting Providers: Tracey Adkins; Eris Galeas; Jose Robert Discharge Orders/Prescriptions Prescriptions: New fluconazole 40 mg/mL Suspension For Reconstitution 200 mg PO DAILY 13 Days Qty: 65 0RF pantoprazole [Protonix] 40 mg tablet,delayed release (DR/EC) 40 mg PO DAILY Qty: 30 2RF Rx Instructions: advised TWICE DAILY FOR 2 WEEKS THEN ONCE DAILY Continued carvedilol 3.125 mg tablet 3.125 mg PO QHS Rx Instructions: must administer with a meal/food cyclobenzaprine 5 mg tablet 5 mg PO QHS losartan 25 mg tablet 12.5 mg PO DAILY isosorbide mononitrate 10 mg tablet 10 mg tablet 10 mg PO QHS Rx Instructions: give doses 7 hrs apart magnesium oxide 500 mg capsule 250 mg PO BID levothyroxine 50 mcg tablet 50 mcg PO DAILY Hold Instructions: MD Ordered Patient Comments: TAKE 1 TABLET BY MOUTH ONCE DAILY Azo Cranberry 250 mg tablet,chewable 500 mg PO DAILY gabapentin 300 mg capsule 300 mg PO DAILY Patient Comments: nerve pain, seizures takes at 0800,1700,2200 Rx Instructions: Don't use while taking linezolid potassium chloride 20 mEq tablet extended release 20 meq PO DAILY ascorbic acid (vitamin C) 1,000 mg tablet 500 mg PO BID Hold Instructions: Order Changed atorvastatin [Lipitor] 40 MG tablet 40 mg PO QHS pyridoxine (vitamin B6) 100 MG tablet 100 mg PO DAILY Patient Comments: supplement to improve metabolism takes at 1700 multivitamin,ah-rvnf-riuuaump 1 TABLET tablet 1 tab PO DAILY Patient Comments: supplement takes at 1700 tamsulosin 0.4 MG capsule 0.4 mg PO 1700 doxepin 25 mg capsule 25 mg PO QHS sennosides [Senna Laxative] 8.6 mg tablet 17.2 mg PO DAILY Pro-Stat AWC 17-100 gram-kcal/30 mL liquid in packet 30 ea PO DAILY topiramate 50 mg tablet 50 mg PO Q12H clopidogrel [Plavix] 75 mg tablet 75 mg PO DAILY Qty: 30 0RF Rx Instructions: Hold if platelet count drops less than 50,000 or hemoglobin less than 8 g% Changed methadone 5 mg tablet 10 mg PO DAILY 14 Days Qty: 90 0RF furosemide 40 MG tablet 20 mg PO DAILY Qty: 30 0RF Discontinued sulfamethoxazole-trimethoprim [Bactrim DS] 800-160 mg tablet 1 tab PO DAILY lithium carbonate 150 mg capsule 150 mg PO TID Referrals / Follow Up: Eris Melendez MD [Primary Care Provider] - FriendJose Martin DO [Med Staff - Active Staff] - Within 1 Month (For dysphagia.) Disposition Disposition (needs filled in before D/C Order can be placed): [facility] (5) Anemia Qualifiers: Anemia type: unspecified type Qualified Code(s): D64.9 - Anemia, unspecified
--- NOTE | 2023-10-18 09:51 | CASEMGMT ---
Patient was denied by insurance to return to [facility] skilled. Patient will return to [facility] private pay. DEBBIE received a call from Valerie at [facility] and she is aware patient was denied. DEBBIE let Valerie know that patient will return private pay probably today. Nicolasa WILL
[2023-10-18 09:59] VITALS: PULSE 89; RESP 18
[2023-10-18] MEDS: Multivitamin/Minerals/Iron (9 mg/15 ml) Liquid PO (10:16)
[2023-10-18] MEDS: Lansoprazole 15 MG Capsule.DR 30 MG PO (10:16)
[2023-10-18] MEDS: Fluconazole Suspension 40 MG/ML 35 ML Bottle 200 MG PO (10:16)
--- NOTE | 2023-10-18 13:28 | DS.PCM_ITS ---
Providers Date of Admission: 10/13/23 Date of Discharge: 10/18/23 Primary Care Physician: Dr. Eris Melendez MD Consultations 10/13/23 18:29 Consult: Infectious Disease Routine Consulting Provider: Jose Robert Reason for Consult: Complicated UTI EMERGENT Consult: No Notified: Yes Date Notified: 10/16/23 Time Notified: 09:14 Method of Notification: Text Consult: Onc/Wound/smt machine operator Routine Comment: Reason for Consult:: Pressure injuries 10/16/23 12:58 Consult: Gastroenterology Routine Consulting Provider: [facility] Reason for Consult: esophageal stenosis with dysphagia. confused/AMS EMERGENT Consult: No Notified: Yes Date Notified: 10/16/23 Time Notified: 12:59 Method of Notification: Verbal Reason For Visit: ENCEPHALOPATHY, UTI Diagnosis Discharge Diagnosis (1) UTI (urinary tract infection): Status: Acute Code(s): N39.0 - Urinary tract infection, site not specified Plan: ESBL E. coli. On Meropenem given h/o PCN allergy Culture shows ESBL E. coli at 2000 200,000 colonies, sensitive to amikacin, cefotetan, imipenem, and meropenem. 10/17: ID recommended twice meropenem tomorrow. ID is consulted for long-term recommendation. (2) Encephalopathy: Status: Acute Code(s): G93.40 - Encephalopathy, unspecified Plan: acute. 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 Methadone inhaler temporarily. [place] level is low therefore it discontinued after discussion with his from previous hospitalist. Pt has been on methadone chronically, so this presents a dilemma with his encephalopathy, but also at risk for opiate withdrawal, which could exacerbated encephalopathy. Therefore methadone was discontinued and oxycodone as needed was started. TSH elevated, but FT4 WNL MRI brain showed no acute process. Right frontal ventriculostomy catheter on the right. As mentioned below, lithium was discontinued after discussion with the by Dr. Galeas. 10/18: Patient is more awake and alert and oriented to place. He denies to me. Hospital course, discharge process and discharge medications discussed with the patient's and son near the bedside. Moderate to severe oropharyngeal dysphagia: Patient was not cooperative therefore MBS was suboptimal. Recommended GI consult due to decreased upper esophageal opening with possibility of upper esophageal stenosis. Patient is moderate to high risk of anesthesia because of altered mental status and any and states he will prolong his confusion. GI consulted. 10/17: Plan for EGD today. 10/18: Patient had EGD and mentioned below. Started on fluconazole 200 mg yesterday total duration 2 weeks. Impressions : - Esophageal plaques were found, consistent with candidiasis. - LA Grade A reflux esophagitis with no bleeding. Biopsied. - Benign-appearing esophageal stenosis. Dilated. - No gross lesions in the entire stomach. - Normal first portion of the duodenum. - biliary stent seen in the second portion of the duodenum Recommendations : - [facility]. - Resume previous diet. - Continue present medications. - Await pathology results. -Fluconazole 200mg daily x 14 days (3) Hypernatremia: Status: Acute Code(s): E87.0 - Hyperosmolality and hypernatremia Plan: Ongoing, but improving. I suspect due to dehydration, will change IVF to 0.45 NS Discontinue IV fluid. (4) Hypokalemia: Status: Acute Code(s): E87.6 - Hypokalemia Plan: POA Improved, but down again. Replace. Magnesium was 2.4 on the 17th. Phosphorous was 2.6 on the 17th. Recheck phosphorous and replace if low. Unclear if component of refeeding syndrome. (5) Anemia: Status: Acute Code(s): D64.9 - Anemia, unspecified Qualifiers: Anemia type: unspecified type Qualified Code(s): D64.9 - Anemia, unspecified Plan: Hg dropped from 10.6 to 9.8. Unclear significance at this time, whether this is accurate or not, such that if this is dilutional from the IV fluids. Continue to monitor at this time. Does appear to be macrocytic, however. TSH was elevated but free T4 was normal. B12 level normal. Folic acid level normal. 10/17: Hemoglobin 10.5/33.9 on baseline. Plan Chronic conditions: * Hypertension: Continue coreg, isosorbide, losartan when able * hyperlipidemia: statin when able. * PAD: clopidogrel when able * Chronic macrocytic anemia: stable. 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 Give his current presentation we will maintain n.p.o. status pending speech therapy evaluation to be cautious and judiciously hydrate as noted. * Hypothyroidism, chart reported: Noted in chart history, not on any regimen, TSH mildly elevated 5.21 but free T4 normal therefore continue same dose of levothyroxine. 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 * BPH: tamsulosin when able. * GERD: We will temporally place on IV PPI given n.p.o. status. * Chronic pain syndrome: Reviewed OARRS, he has received methadone chronically. Caution with it's use as mentioned above. Total time of the visit including total time spent in counseling or coordination of care, (more than 50% of the total time, spent in obtaining medical information from nurses and other ancillary care providers,explaining to the patient about labs, imaging, diagnosis and management of active complex medical conditions), speech therapist GI consult, review of labs and imaging is 40 minutes. DVT prophylaxis: SCDs CODE status: per discussion with admitting physician and family: DNR-CCA, no intubation status. Patient is being discharged to group home. Discharge medication reconciliation done. Discharge follow-up instructions completed. Discharge process discussed with the patient and all questions were answered to patient's satisfaction. Follow with PCP in 1 to 2 weeks Total time spent, exact 35 minutes on discharge meds reconciliation, examination, coordination of care with nurses and ancillary staff, review of imaging and blood test and discussion with the patient on follow-up instr uctions. Medications at Discharge Home Medications atorvastatin 40 mg tablet (Lipitor) 40 mg PO QHS CHOLESTEROL 11/06/18 multivitamin,ll-kead-ydkgmoxc 27 mg-0.4 mg tablet 1 tab PO DAILY SUPPLEMENT 11/06/18 pyridoxine (vitamin B6) 100 mg tablet 100 mg PO DAILY SUPPLEMENT 11/06/18 tamsulosin 0.4 mg capsule 0.4 mg PO 1700 BPH 11/06/18 carvedilol 3.125 mg tablet 3.125 mg PO QHS heart 02/06/20 cyclobenzaprine 5 mg tablet 5 mg PO QHS pain 02/06/20 isosorbide mononitrate 10 mg tablet 10 mg PO QHS to dilate blood vessels in legs 02/06/20 losartan 25 mg tablet 12.5 mg PO DAILY stop if low bp per Eris Melendez MD 02/06/20 ascorbic acid (vitamin C) 1,000 mg tablet 500 mg PO BID supplement 10/12/20 cranberry fruit concentrate 250 mg chewable tablet (Azo Cranberry) 500 mg PO DAILY bladder 10/12/20 levothyroxine 50 mcg tablet 50 mcg PO DAILY thyroid 10/12/20 gabapentin 300 mg capsule 300 mg PO DAILY nerve pain 06/23/23 magnesium oxide 500 mg capsule 250 mg PO BID supplement 06/23/23 potassium chloride 20 mEq tablet,extended release 20 meq PO DAILY 09/13/23 amino acids-protein hydrolysate 17 gram-100 kcal/30 mL liquid packet (Pro-Stat AWC) 30 ea PO DAILY 10/13/23 doxepin 25 mg capsule 25 mg PO QHS 10/13/23 sennosides 8.6 mg tablet (Senna Laxative) 17.2 mg PO DAILY 10/13/23 topiramate 50 mg tablet 50 mg PO Q12H 10/13/23 clopidogrel 75 mg tablet (Plavix) 75 mg PO DAILY blood thinner #30 tabs 10/18/23 fluconazole 40 mg/mL oral suspension 200 mg (5 mL) PO DAILY 13 days #65 mL 10/18/23 furosemide 40 mg tablet 20 mg (1/2 x 40 mg) PO DAILY diuretic #30 tabs 10/18/23 methadone 5 mg tablet 10 mg (2 x 5 mg) PO DAILY Check with primary doctor 14 days #90 tabs 10/18/23 pantoprazole 40 mg tablet,delayed release (Protonix) 40 mg PO DAILY #30 tabs 10/18/23 Physical Exam Narrative Physical Examination: General: Patient was confused could not remember the name but in the afternoon awake, oriented to place and person. Patient able to say few words in a small sentences. HEENT: Atraumatic, PERRLA, EOMI, Normocephalic Oral: Rena infection mainly pharyngeal and esophageal Neck: Supple, No JVD, Negative Carotid Bruits Lungs: Air entry diminished in bilateral lung bases. No crepitation/rhonchi Cardiovascular: Regular rate, Regular Rhythm, Normal S1, Normal S2, systolic murmur. Murmurs Abdomen: Bowel Sounds Present, Soft, Non Tender, Non-Distended : No renal angle tenderness. No suprapubic tenderness. Extremities: No edema, Capillary Refill Less than 3 Seconds Skin: Chronic venous stasis/dermatitis. Superficial skin ulcer in right lateral lower leg seems venous ulcer, nonpressure ulcer. Stage II right ischial/buttock decubitus ulcer. Neurological: Cranial nerves II-XII grossly intact, DTR 2+/4. No acute focal neurological deficit. Psych/Mental Status: Flat affect. Possible dementia. Medical Records Data Medical Nutrition Assessment Dietitian: Malnutrition Criteria Met Start: 10/14/23 12:35 Freq: Status: Active Protocol: Document 10/17/23 09:50 (Rec: 10/17/23 09:50 [id number]) Nutrition Malnutrition Evidence of Malnutrition Exists Yes Malnutrition (severe): Acute Illness/Injury Evidenced By Suboptimal Energy Intake ( Severe),Weight Loss (Severe) Clinical Problem Acute Disease or Injury Related Malnutrition Etiology severe, acute malnutrition related to inadequate energy intake w/acute GI, COVID illnesses Signs/Symptoms as evidenced by estimated PO intake meeting <50% of estimated energy needs > 5 days, unintentional 8.5kg/11% wt loss x 1.5 months Status Active Problem Recommendation Dietitian Recommendations/Changes recommend advance diet as tolerated to regular- texture/ consistency per MANAGER RESEARCH; Fred BID and Ensure Plus High Protein 120mL 4x/day w/ medpass when diet is advanced given evidence of malnutrition Weight / BMI Weight Weight: 151 lb 0.266 oz Body Mass Index (BMI) 21.7 ABG / Lab / Microbiology Data 10/18/23 08:25 10/18/23 08:25 Laboratory: Laboratory Results - last 24 hr 10/18/23 08:25: WBC 4.2 L, RBC 3.33 L, Hgb 10.6 L, Hct 33.0 L, MCV 99.1 H, MCH 31.8, MCHC 32.1, RDW Std Deviation 51.3 H, RDW Coeff of Nayeli 14.2, Plt Count 193, MPV 9.8, Immature Gran % (Auto) 0.500, Neut % (Auto) 66.7, Lymph % (Auto) 19.0, Bailey % (Auto) 9.4, Eos % (Auto) 3.4, Baso % (Auto) 1.0, Absolute Neuts (auto) 2.8, Absolute Lymphs (auto) 0.79 L, Nucleated RBC % 0, Sodium 138, Potassium 3.7, Chloride 112 H, Carbon Dioxide 24.0, Anion Gap 2 L, BUN 8, Creatinine 0.53 L, Estim Creat Clear Calc 51.38, Est GFR (MDRD) Af Amer 190, Est GFR (MDRD) Non- Af 157, BUN/Creatinine Ratio 15.2, Glucose 118 H, Calcium 7.8 L Microbiology: Microbiology 10/13/23 17:15 Urine Catheter - Catheter Urine Culture - Final ESBL Escherichia coli Meaningful Use Info Meaningful Use Diagnoses (Choose all that apply): None applicable Discharge Plan Admission Admit Date/Time: 10/13/23 16:35 Primary Reason for Your Visit: Acute encephalopathy with history of dementia, oropharyngeal dysphagia. Attending Provider: Rafiq Ty Primary Care Provider: Eris Melendez Consulting Providers: Tracey Adkins; Eris Galeas; Jose Robert Discharge Orders/Prescriptions Prescriptions: New fluconazole 40 mg/mL Suspension For Reconstitution 200 mg PO DAILY 13 Days Qty: 65 0RF pantoprazole [Protonix] 40 mg tablet,delayed release (DR/EC) 40 mg PO DAILY Qty: 30 2RF Rx Instructions: advised TWICE DAILY FOR 2 WEEKS THEN ONCE DAILY Continued carvedilol 3.125 mg tablet 3.125 mg PO QHS Rx Instructions: must administer with a meal/food cyclobenzaprine 5 mg tablet 5 mg PO QHS losartan 25 mg tablet 12.5 mg PO DAILY isosorbide mononitrate 10 mg tablet 10 mg tablet 10 mg PO QHS Rx Instructions: give doses 7 hrs apart magnesium oxide 500 mg capsule 250 mg PO BID levothyroxine 50 mcg tablet 50 mcg PO DAILY Hold Instructions: MD Ordered Patient Comments: TAKE 1 TABLET BY MOUTH ONCE DAILY Azo Cranberry 250 mg tablet,chewable 500 mg PO DAILY gabapentin 300 mg capsule 300 mg PO DAILY Patient Comments: nerve pain, seizures takes at 0800,1700,2200 Rx Instructions: Don't use while taking linezolid potassium chloride 20 mEq tablet extended release 20 meq PO DAILY ascorbic acid (vitamin C) 1,000 mg tablet 500 mg PO BID Hold Instructions: Order Changed atorvastatin [Lipitor] 40 MG tablet 40 mg PO QHS pyridoxine (vitamin B6) 100 MG tablet 100 mg PO DAILY Patient Comments: supplement to improve metabolism takes at 1700 multivitamin,dj-apsz-ipxpaaie 1 TABLET tablet 1 tab PO DAILY Patient Comments: supplement takes at 1700 tamsulosin 0.4 MG capsule 0.4 mg PO 1700 doxepin 25 mg capsule 25 mg PO QHS sennosides [Senna Laxative] 8.6 mg tablet 17.2 mg PO DAILY Pro-Stat AWC 17-100 gram-kcal/30 mL liquid in packet 30 ea PO DAILY topiramate 50 mg tablet 50 mg PO Q12H clopidogrel [Plavix] 75 mg tablet 75 mg PO DAILY Qty: 30 0RF Rx Instructions: Hold if platelet count drops less than 50,000 or hemoglobin less than 8 g% Changed methadone 5 mg tablet 10 mg PO DAILY 14 Days Qty: 90 0RF furosemide 40 MG tablet 20 mg PO DAILY Qty: 30 0RF Discontinued sulfamethoxazole-trimethoprim [Bactrim DS] 800-160 mg tablet 1 tab PO DAILY lithium carbonate 150 mg capsule 150 mg PO TID Referrals / Follow Up: Eris Melendez MD [Primary Care Provider] - Jose Martin Grover DO [Med Staff - Active Staff] - Within 1 Month (For dysphagia.) Disposition Disposition (needs filled in before D/C Order can be placed): [facility] Charges/Coding Visit Charges Inpatient E&M: 71859 Disch Hosp >30min
--- NOTE | 2023-10-18 13:54 | CASEMGMT ---
DEBBIE notified patient and his Geno that patient will be returning to [facility] today. Geno was surprised. DEBBIE also explained that patient's insurance did deny skilled level of care so patient will continue to be private pay at the correction. Geno said she would like to talk with the physician. DEBBIE let them know SW will send a message to the physician. DEBBIE then sent a message to physician. Plan: d/c back to [facility] under intermediate level of care. Nicolasa Shepherd CASINO SURVEILLANCE OFFICERCandida WILL
--- NOTE | 2023-10-18 14:22 | CASEMGMT ---
Discharge Planning Discharge orders, signed med list, and transport time sent to [facility] via [facility]. [facility] will transport patient by cot at 3p. Nursing, SW, patient, and his updated. Erna Hughes, Discharge Planning Asst.
--- NOTE | 2023-10-18 14:51 | CHAPLAIN ---
Type of Pastoral Visit _x__ Initial Visit ___ Follow-up Visit ___ On-call Visit ___ General Patient Visit ___ Spiritual Assessment ___ Family Conference ___ Bereavement ___ Rapid Response ___ Code Blue ___ Other (describe below) Pastoral Care Referral From ___ Patient _x__ Family ___ Nurse ___ Physician ___ Orthopedic Mechanic ___ Stiff Leg Derrick Operator ___ Other (describe below) Sacrament/Intervention _x__ Active listening ___ Anointing ___ Taoist ___ Bereavement ___ Communion ___ Roseann exploration ___ ___ Life review _x__ Prayer ___ Reconciliation ___ Sacrament of Sick _x__ Supportive presence ___ Wedding ___ Other (describe below) Pastoral Comments patient has had confusion but is talking better and understanding more today per report of spouse who is at bedside; offer of presence and support; pt is listening to [employer] music on TV and is following it very well with comments and enjoyment; pt talks about his as the best person in the world and is thankful for the visit of implant polisher; pt welcomes prayer and takes hands of this implant polisher and spouse as we pray;
[2023-10-18 15:00] VITALS: BP 150/78; PULSE 72; RESP 16; TEMP 36.7; O2SAT 97
== END 2023-10-18 15:13 | disposition skilled nursing facility (03) | DRG 689 ==
LOC: ED 16:47 → PCU 18:07
PROVIDERS: Internal Medicine Gastroenterology; Admitting Provider Family Medicine; Emergency Provider Emergency Medicine; PCP Family Medicine; Visit Provider Internal Medicine
PROC: 0DJ08ZZ Inspection of Upper Intestinal Tract, Via Natural or Artificial Opening Endoscopic (ICD-10-PCS; CPT 43235; principal; 2023-10-17 15:30)
DX: N39.0 Urinary tract infection, site not specified (principal); G92.8 Other toxic encephalopathy; E43 Unspecified severe protein-calorie malnutrition; G82.20 Paraplegia, unspecified; B37.81 Candidal esophagitis; E87.0 Hyperosmolality and hypernatremia; Z16.12 Extended spectrum beta lactamase (ESBL) resistance; K22.2 Esophageal obstruction; F03.90 Unspecified dementia, unspecified severity, without behavioral disturbance, psychotic disturbance, mood disturbance, and anxiety; I73.9 Peripheral vascular disease, unspecified; G40.909 Epilepsy, unspecified, not intractable, without status epilepticus; L89.312 Pressure ulcer of right buttock, stage 2; L89.132 Pressure ulcer of right lower back, stage 2; Z93.3 Colostomy status; E03.9 Hypothyroidism, unspecified; I10 Essential (primary) hypertension; I35.0 Nonrheumatic aortic (valve) stenosis; D53.9 Nutritional anemia, unspecified; E78.5 Hyperlipidemia, unspecified; E87.8 Other disorders of electrolyte and fluid balance, not elsewhere classified; E87.6 Hypokalemia; K21.00 Gastro-esophageal reflux disease with esophagitis, without bleeding; I25.2 Old myocardial infarction; I87.2 Venous insufficiency (chronic) (peripheral); G89.4 Chronic pain syndrome; B96.20 Unspecified Escherichia coli [E. coli] as the cause of diseases classified elsewhere; N40.0 Benign prostatic hyperplasia without lower urinary tract symptoms; Z66 Do not resuscitate; Z51.5 Encounter for palliative care; Z98.2 Presence of cerebrospinal fluid drainage device; Z90.49 Acquired absence of other specified parts of digestive tract; Z68.21 Body mass index [BMI] 21.0-21.9, adult; Z79.02 Long term (current) use of antithrombotics/antiplatelets; Z87.891 Personal history of nicotine dependence; Z79.899 Other long term (current) drug therapy; Z86.79 Personal history of other diseases of the circulatory system; Z86.718 Personal history of other venous thrombosis and embolism; Z86.73 Personal history of transient ischemic attack (TIA), and cerebral infarction without residual deficits; Z86.16 Personal history of COVID-19; Z79.891 Long term (current) use of opiate analgesic
CPT/HCPCS: 36415; 70450; 70551; 74230; 75809; 80048; 80053; 80076; 80178; 81001; 81002; 82140; 82607; 82746; 83735; 83935; 84100; 84145; 84300; 84439; 84443; 85025; 87086; 87088; 87186; 88305; 88313; 88341; 88342; 92526; 92610; 92611; 95819; 97110; 97162; 97166; 97530; 97535; 97802; 97803; 99285; J2185; J7030; J7040; J7120; A4216; C1769; J2405; J3490

== ENCOUNTER → 2023-10-23 | Outpatient (REF) | payer MEDICARE, SELFPAY | LOC: OLS.WCC 17:01 | PROVIDERS: PCP Family Medicine; Referring Provider Family Medicine; Visit Provider Family Medicine | DX: U07.1 COVID-19 (principal) | CPT/HCPCS: 87635 ==

== ENCOUNTER → 2023-10-26 | Outpatient (REF) | payer MEDICARE, SELFPAY ==
[2023-10-26 08:58] LABS: Thyroid Stim Hormone (TSH) 2.03 uIU/mL (0.358-3.74)
== END ==
LOC: OLS.WCC 07:55
PROVIDERS: PCP Family Medicine; Visit Provider Family Medicine
DX: I10 Essential (primary) hypertension (principal); E78.5 Hyperlipidemia, unspecified; E03.9 Hypothyroidism, unspecified
CPT/HCPCS: 36415; 84443

== ENCOUNTER → 2023-10-30 | Outpatient (REF) | payer MEDICARE, SELFPAY ==
[2023-10-30 09:12] LABS: Hematocrit 33.7 % (40-54); Hemoglobin 10.2 g/dL (13.0-16.5); Mean Corp Hgb Conc 30.3 g/dL (32-36); Mean Corpuscular Hgb 30.7 pg (27.0-32.0); Mean Corpuscular Volume 101.5 fL (80-94); Platelet Count 151 K/mm3 (150-450); RBC Distribution Width CV 14.7 % (11.6-14.6); RBC Distribution Width SD 54.9 fl (35.1-43.9); Red Blood Count 3.32 M/mm3 (4.6-6.2)
[2023-10-30 09:26] LABS: ALB/GLOB Ratio 0.4 RATIO (0.9-2.4); AST(SGOT) 24 U/L (15-37); Alanine Aminotransfer ALT/SGPT 26 U/L (16-61); Alkaline Phosphatase 81 U/L (45-117); Anion Gap 4 (5-15); BUN 32 mg/dL (7-18); Calcium,Total 8.3 mg/dL (8.5-10.1); Chloride 111 mmol/L (98-107); Creatinine, Serum 0.74 mg/dL (0.70-1.30); EST Glomerular Filtration Rate 106 mL/min (>60); Est Glom Filt Rate - Afr Amer 128 mL/min (>60); Globulin 4.6 g/dL (2.2-4.2); Glucose 102 mg/dL (74-106); Potassium 3.4 mmol/L (3.5-5.1); Protein, Total 6.6 g/dL (6.4-8.2); Sodium Level 142 mmol/L (136-145)
== END ==
LOC: OLS.WCC 04:00
PROVIDERS: PCP Family Medicine; Referring Provider Family Medicine; Visit Provider Family Medicine
DX: N40.0 Benign prostatic hyperplasia without lower urinary tract symptoms (principal); I10 Essential (primary) hypertension; Z79.899 Other long term (current) drug therapy
CPT/HCPCS: 36415; 80053; 85027

== ENCOUNTER → 2023-11-30 | Outpatient (REF) | payer MEDICARE, SELFPAY ==
--- OUTSIDE RECORDS SUMMARY | 2023-11-30 04:28 | XMS RPT_ITS | CCD ---
Author Name Unknown Address [address] [place] [address] Organization [facility] Care Team Providers Care In School Suspension Coordinator Name Role Phone ANGELIA TINAJERO Unavailable Unavailable JOSETTE MELENDEZ Unavailable Unavailable Josette Melendez MD Primary Care Provider [phone] Josette Melendez MD Primary Care Provider [phone] JOSETTE MELENDEZ Primary Care Unavailable NIMA TILLMAN [...] [CEPHALEXIN] Drug Allergy 3 Shortness of Breath [facility] (11 sources) Cephalosporins (Antibiotic); Translations: [CEPHALOSPORINS] Drug Allergy 9 Shortness of Breath [facility] (11 sources) Contrast media; Translations: [CONTRAST DYE] Drug Allergy 4 Hives [facility] Work Phone: (11 sources) heparin; Translations: [HEPARIN] Drug Allergy 3 Other: See Comments [facility] (11 sources) Penicillins; Translations: [PENICILLINS] Drug Allergy 9 Rash, Itching [facility] Medications Completed/Discontinued Medications Medication Drug Class(es) [...] 70 mm[Hg] Nima Tillman APRN.CNP Work Phone: [facility] 08-16-2023 14:50-0400 Systolic blood pressure 169 mm[Hg] Nima Tillman APRN.CNP Work Phone: [facility] 08-16-2023 14:06-0400 Body temperature 98.01 [degF] Nima Tillman APRN.CNP Work Phone: [facility] 08-16-2023 14:06-0400 Heart rate 77 /min Nima Tillman APRN.CNP Work Phone: [facility] 08-16-2023 14:06-0400 SaO2% (BldA) [Mass fraction] 98 % Nima Tillman APRN.CNP Work Phone: [facility] 08-02-2023 13:13-0400 Body temperature 97.7 [degF] Nima Tillman APRN.CNP Work Phone: [facility] 08-02-2023 13:13-0400 Diastolic blood pressure 70 mm[Hg] Nima Katrinchak SACK CLEANING HAND.ENVIRONMENTAL HEALTH MANAGER Work Phone: [facility] 08-02-2023 13:13-0400 Heart rate 65 /min Nima Katmercedesk [employer] CLEANING HAND.ENVIRONMENTAL HEALTH MANAGER Work Phone: [facility] 08-02-2023 13:13-0400 SaO2% (BldA) [Mass fraction] 97 % Nima Katrinchak S[employer] CLEANING HAND.ENVIRONMENTAL HEALTH MANAGER Work Phone: [facility] 08-02-2023 13:13-0400 Systolic blood pressure 126 mm[Hg] Nima Katrinchak [employer] CLEANING HAND.ENVIRONMENTAL HEALTH MANAGER Work Phone: [facility] 07-03-2023 12:09-0400 Diastolic blood pressure 70 mm[Hg] Nima Katrinchak [employer] CLEANING HAND.ENVIRONMENTAL HEALTH MANAGER Work Phone: [facility] 07-03-2023 12:09-0400 Systolic blood pressure 153 mm[Hg] Nima Katrinchak S[employer] CLEANING HAND.ENVIRONMENTAL HEALTH MANAGER Work Phone: [facility] 07-03-2023 11:32-0400 Body temperature 97.59 [degF] Nima Katrinchak S[employer] CLEANING HAND.ENVIRONMENTAL HEALTH MANAGER Work Phone: [facility] 07-03-2023 11:32-0400 Heart rate 63 /min Nima Maloneyk S[employer] CLEANING HAND.ENVIRONMENTAL HEALTH MANAGER Work Phone: [facility] 07-03-2023 11:32-0400 SaO2% (BldA) [Mass fraction] 97 % Nima Katrinchak S[employer] CLEANING HAND.ENVIRONMENTAL HEALTH MANAGER Work Phone: [facility] 06-26-2023 11:35-0400 Diastolic blood pressure 69 mm[Hg] Nima Katrinchak S[employer] CLEANING HAND.ENVIRONMENTAL HEALTH MANAGER Work Phone: [facility] 06-26-2023 11:35-0400 Systolic blood pressure 146 mm[Hg] Nima Katrinchak S[employer] CLEANING HAND.ENVIRONMENTAL HEALTH MANAGER Work Phone: [facility] 06-26-2023 11:34-0400 Body temperature 98.1 [degF] Nima Tillman SACK CLEANING HAND.ENVIRONMENTAL HEALTH MANAGER Work Phone: [facility] 06-26-2023 11:34-0400 Heart rate 67 /min Nima Tillman SACK CLEANING HAND.ENVIRONMENTAL HEALTH MANAGER Work Phone: [facility] 06-26-2023 11:34-0400 SaO2% (BldA) [Mass fraction] 96 % Nima Tillman S[employer] CLEANING HAND.ENVIRONMENTAL HEALTH MANAGER Work Phone: [facility] 06-19-2023 15:05-0400 Diastolic blood pressure 54 mm[Hg] Nima Tillman SACK CLEANING HAND.ENVIRONMENTAL HEALTH MANAGER Work Phone: [facility] 06-19-2023 15:05-0400 Systolic blood pressure 120 mm[Hg] Nima Tillman SACK CLEANING HAND.ENVIRONMENTAL HEALTH MANAGER Work Phone: [facility] 05-31-2023 14:22-0400 Diastolic blood pressure 74 mm[Hg] Nima Tillman SACK CLEANING HAND.ENVIRONMENTAL HEALTH MANAGER Work Phone: [facility] 05-31-2023 14:22-0400 Systolic blood pressure 160 mm[Hg] Nima Tillman SACK CLEANING HAND.ENVIRONMENTAL HEALTH MANAGER Work Phone: [facility] 05-31-2023 13:25-0400 Body temperature 97.3 [degF] Nima Tillman SACK CLEANING HAND.ENVIRONMENTAL HEALTH MANAGER Work Phone: [facility] 05-31-2023 13:25-0400 Heart rate 58 /min Nima Tillman SACK CLEANING HAND.ENVIRONMENTAL HEALTH MANAGER Work Phone: [facility] 05-31-2023 13:25-0400 SaO2% (BldA) [Mass fraction] 97 % Nima Tillman SACK CLEANING HAND.ENVIRONMENTAL HEALTH MANAGER Work Phone: [facility] Encounters Encounter Date Encounter Type Care Provider Facility Start: 08-16-2023 End: 08-16-2023 ambulatory NIMA TILLMAN Facility:[facility] Start: 08-16-2023 End: 08-16-2023 Patient encounter procedure Nima Tillman SACK CLEANING HAND.JAMAL Work Phone: Plastic Surgery Procedures Date Procedure Procedure Detail Performing Clinician Start: 06-19-2023 Cul bact xcpt urine blood/stool aerobic isol Nima M Layne DOBSON.ENVIRONMENTAL HEALTH MANAGER Work Phone: Start: 05-31-2023 Cul bact xcpt urine blood/stool aerobic isol Nima Magy Layne [employer] CLEANING HAND.ENVIRONMENTAL HEALTH MANAGER Work Phone: Plan of Treatment Date Care Activity Detail Author Start: 06-19-2026 DIABETES SCREEN DIABETES SCREEN [facility] Start: 06-19-2026 Diabetes Screening Diabetes Screening [facility] Start: 07-28-2023 Influenza vaccination [facility] Start: 11-27-2022 ADVANCE DIRECTIVE DISCUSSION ADVANCE DIRECTIVE DISCUSSION [facility] Start: 11-27-2022 DEPRESSION ASSESSMENT DEPRESSION ASSESSMENT [facility] Start: 12-03-2021 COVID-19 VACCINE (4 - Booster for Moderna series) COVID-19 VACCINE (4 - Booster for Moderna series) [facility] Start: 12-03-2021 COVID-19 VACCINE (4 - Moderna series) COVID-19 VACCINE (4 - Moderna series) [facility] Start: 11-02-2012 DIABETES SCREEN DIABETES SCREEN [facility] Start: 2002 Pneumococcal Vaccine: 65+ (1 - PCV) Pneumococcal Vaccine: 65+ (1 - PCV) [facility] Start: 2002 PNEUMOCOCCAL: 65+ (1 - PCV) PNEUMOCOCCAL: 65+ (1 - PCV) [facility] Start: 1987 SHINGRIX VACCINE (1 of 2) SHINGRIX VACCINE (1 of 2) [facility] Start: 1956 Urine microalbumin profile [facility] Bacteria identified in Wound by Culture ABSCESS AND WOUND CULTURE WITH GRAM STAIN Microbiology Routine Pressure injury of right ischium, stage 3 (HCC) 05/31/2023 2:35 PM EDT [facility] Work Phone: Bacteria identified in Wound by Culture ABSCESS AND WOUND CULTURE WITH GRAM STAIN Microbiology Routine Wound infection 06/19/2023 2:41 PM EDT [facility] Work Phone: End: 07-18-2024 Ct pelvis w/o contrast material CT PELVIS WO IVCON Radiology [facility] Wound infection Pressure injury of deep tissue of sacral region 1 Occurrences starting 06/19/2023 until 07/18/2024 [facility] Work Phone: Immunizations Immunization Date Immunization Notes Care Provider Yenifer josé manuelfer 12-01-2021 influenza virus vaccine, unspecified formulation Nima Tillman APRN.ENVIRONMENTAL HEALTH MANAGER Work Phone: [facility] Payers Date Payer Category Payer Medicare HU[employer]NA MEDICARE HU[employer]NA MEDICARE PPO [id number] 2020-Present [phone] [address] [address] [place] [address] PPO [id number] 2018 Private Health Insurance [id number] 2018 Medicare [id number] 1935 Unknown [id number] Social History Date Type Detail Facility [facility]: [facility] History of tobacco use Current smoker [facility] Start: 10-05-2017 End: 08-16-2023 Alcohol intake Current drinker of alcohol (finding) [facility] Start: 1935 Sex Assigned At Male [facility] Start: 05-31-2018 End: 05-31-2023 History of Social function [facility] Start: 05-31-2018 End: 05-31-2023 Tobacco use panel [facility] National Score (1-10 0), lower number is lower risk 57 [facility] Start: 11-12-2020 Gender identity Identifies as male gender (finding) [facility] Start: 11-12-2020 Sexual orientation Heterosexual (fin ding) [facility] Start: 06-19-2023 Tobacco Comment quit smoking in the 1950s [facility] Clinical Notes 05-31-2023 to 08-16-2023 Nima Tillman APRN.CNP - 08/16/2023 2:24 PM EDTPMiranda Griffith RN - 08/16/2023 2:00 PM Nima Breaux APRN.JAMAL - 08/02/2023 1:34 PM EDTPatient Instructions Note Date & Type Note Facility 08-16-2023 Note HNO ID: [id number] Author: Nima Tillman APRN.JAMAL Service: ? Author [...] clinic visit today. He has assistance of [facility] at home 2x/week for wound care. S/p [...] drainage of SAH PAST SURGICAL HISTORY OF TARGET PROTECTION SPECIALIST shunt placement PAST SURGICAL HISTORY OF SVC [...] on 06/26/2023) acetam (more content not included)... [facility] 08-16-2023 History of Presen t illness Narrative [...] clinic visit today. He has assistance of [facility] at home 2x/week for wound care. S/p [...] drainage of SAH PAST SURGICAL HISTORY OF TARGET PROTECTION SPECIALIST shunt placement PAST SURGICAL HISTORY OF SVC [...] immediately prior to procedure start with the S[employer] and team , correctly identifying the patient [...] immediately prior to procedure start with the S[employer] CLE[employer] HAND and team , correctly identifying the patient [...] immediately prior to procedure start with the SACK CLE[employer]ING HAND and team , correctly identifying the patient [...] under the [facility] scanned docs tab on [facility]. The purpose of the photo(s) is to [...] lower leg, limited to breakdown of skin ([facility]) Comment: Sacral wound healed. Right lateral lower [...] alginate to right ischial wound. Cover with Wahoo SAP dressing. Change dressing daily and prn. - Apply Vaseline to sacral area for protection. May cover with with bordered foam dressing to pad and protect for pt comfort (Sacral bordered foam dressing applied in clinic today). Change dressing twice a week. Apply Vaseline to area daily if leaving [employer]O INSPECTION SPECIALIST. - Apply MediHoney gel and Adaptic to right lower leg wounds. Cover with 4x4's, ABD and conform roll gauze. Change dressing 3x/week and prn. - Betadine to right lateral ankle. Cover with ABD and conform roll gauze. Change 3x/week and prn. - Vaseline to intact skin bilat LE - Single layer Tubi-dock manager bilat LE for compression/edema control - Turn/reposition [...] 08/16/2023. Nima Tillman APRN, JAMAL, CWS Certified Hand Surgeon August 16, 2023 documented in this encounter [facility] 08-16-2023 Instructions Miranda Matute RN - 08/16/2023 2:07 PM EDT [facility] FAX: [phone] or [phone] Dr. [facility] Wound location: Right Ischium Wash [...] directly to wound bed. Cover with 4x4 Wahoo SAP (silicone bordered bandage). Change your dressing [...] & intact dressing. 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 Home Care Company/Nursing Facility: [facility] (used to be [facility]) [facility] Consent captured for debridement per Nima Tillman CNP and april until 2023 Special Instructions: bed, will need harper unless accompanied by son who transfers him. 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 [...] Miranda Matute RN//EILEEN documented in this encounter [facility] 08-02-2023 Note HNO ID: [id number] Author: Nima Tillman APRN.ENVIRONMENTAL HEALTH MANAGER Service: ? Author Type: Nurse Practitioner Type: [...] clinic visit today. He has assistance of [facility] at home 3x/week for wound care. S/p [...] drainage of SAH PAST SURGICAL HISTORY OF TARGET PROTECTION SPECIALIST shunt placement PAST SURGICAL HISTORY OF SVC [...] taking: Reported on (more content not included)... [facility] 08-02-2023 History of Presen t illness Narrative [...] clinic visit today. He has assistance of [facility] at home 3x/week for wound care. S/p [...] drainage of SAH PAST SURGICAL HISTORY OF TARGET PROTECTION SPECIALIST shunt placement PAST SURGICAL HISTORY OF SVC [...] immediately prior to procedure start with the [employer] and team , correctly identifying the patient [...] immediately prior to procedure start with the [employer] and team , correctly identifying the patient [...] under the [facility] scanned docs tab on [facility]. The purpose of the photo(s) is to [...] alginate to right ischial wound. Cover with Wahoo SAP dressing. Change dressing 3x/week and prn. [...] intact skin bilat LE - Single layer Tubi-dock manager bilat LE for compression/edema control - Turn/reposition [...] decision making today, 08/02/2023. Nima Tillman APRN, ENVIRONMENTAL HEALTH MANAGER, CWS Certified Hand Surgeon= August 02, 2023 documented in this encounter [facility] 08-02-2023 Instructions Miranda Matute RN - 08/02/2023 1:14 PM EDT WOUND CARE INSTRUCTIONS- Sk[facility] Care (Nurse Sue) FAX: [phone] or [phone] Dr[facility] Wound location: Right Ischium Wash your hands [...] the honey alginate layer. Cover with 4x4 Wahoo SAP (silicone bordered bandage). Change your dressing [...] to around wound edges. Cover with 4x4 Wahoo SAP (silicone bordered bandage). Change your dressing [...] & intact dressing. 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 Home Care Company/Nursing Facility: [facility] (used to be [facility]) Dr[facility] Consent captured for debridement per Keenan Ferris until 2023 Special Instructions: bed, will need harper unless accompanied by son who transfers him. 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) [...] Used: 2% lidogel applied per Noni VMargarita informatic[employer] mdm architect #1 & 2 Other procedure: N/A Specimen [...] Medihoney Alginate Covered and secured with: 4x4 Wahoo SAP WOUND # 2 - LOCATION: Left [...] of Concern: right hip red, blanchable - Wahoo SAP 4x4 Area of Concern: Right Lateral Ankle (New 07/17/23) Selective, epithelialized closed post Debridement COMPRESSION: Single layer tubi-dock manager size D to BLE SPECIAL NEEDS: Coordination of care - AVS sent to [facility] Emotional support N/A OR set-up N/A Sports Activities Foul Judge N/A Incontinence needs N/A DISCHARGED in stable [...] well; discussed CT scan scheduled tomorrow at [place]; patient to follow-up here in 2 weeks. [...] and The intended procedure Time Out Communication: 1409 Intended patient and procedure match the source [...] Miranda Matute RN/SV documented in this encounter [facility] 07-17-2023 Note HNO ID: [id number] Author: Nima Tillman APRN.ENVIRONMENTAL HEALTH MANAGER Service: ? Author Type: Nurse Practitioner Type: [...] clinic visit today. He has assistance of [facility] at home now 3x/week for wound care [...] drainage of SAH PAST SURGICAL HISTORY OF TARGET PROTECTION SPECIALIST shunt placement PAST SURGICAL HISTORY OF SVC [...] 12 hours 6am/6 (more content not included)... [facility] 07-04-2023 Note HNO ID: [id number] Author: Jaqueline Nix RT(R) Service: ? Author Type: Sales Service Coordinator Type: Progress Notes Filed: 07/04/2023 1:55 PM [...] RT Linda(R) July 04, 2023 1:55 PM [facility] 07-03-2023 Note HNO ID: [id number] Author: Nima Tillman APRN.ENVIRONMENTAL HEALTH MANAGER Service: ? Author Type: Nurse Practitioner Type: [...] clinic visit today. He has assistance of [facility] at home now 3x/week for wound care [...] drainage of SAH PAST SURGICAL HISTORY OF TARGET PROTECTION SPECIALIST shunt placement PAST SURGICAL HISTORY OF SVC [...] daily. 12.5mg car (more content not included)... [facility] 07-03-2023 Instructions Tammy Urena RN - 07/03/2023 11:54 AM EDT WOUND CARE INSTRUCTIONS- Skyler Rojas [facility] Care (Nurse Rogers) FAX: [phone] or [phone] Wound location: Right ischium 1. Wash your [...] followed by calcium alginate 5. Cover with Wahoo SAP (silicone bordered bandage) 4x4 6. Change [...] to the wound bed. 5. Cover with Wahoo SAP (silicone bordered bandage) 6x7 6. Change your dressing 3 times per week and as needed to maintain clean dry dressin Left & Right Lateral lower Legs : 1. Wash your hands with soap and water before and after wound care. 2. Gather all supplies needed. 3. Wash wounds with Dial soap and water. Pat dry. 4. Isabela the wounds and scabbed areas with Betadine and allow to dry 5. Cover with 4x4 gauze, ABD, conform, tape. 6. Change your dressing 3 x weekly and as needed to maintain clean dry dressing. 7. Apply single layer tubi dock manager size D to right and left legs [...] daily Report any of the following changes [phone] or go to the Emergency Department: Fever [...] of the pelvis scheduled for 07/04/23 @ [facility] [phone] Do not use donut for pressure relief. 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) [...] & calcium alginate Covered and secured with: Wahoo SAP 4x4 Other: n/a WOUND # 2 [...] gel, calcium alginate Covered and secured with: Wahoo SAP 6x7 Other: n/a WOUND # 3 [...] of Concern: right hip red, blanchable - Wahoo SAP 4x4 COMPRESSION: Single layer tubi-dock manager size D to BLE SPECIAL NEEDS: Coordination of care AVS faxed to to [facility] Emotional support N/A OR set-up N/A Sports Activities Foul Judge N/A Incontinence needs N/A DISCHARGED in stable condition to: home via wheelchair with Global surgical period dates if applicable: N/A Plan: Follow-up in the wound center with Nima in 2 weeks: 07/17/23 Continue aggressive nutritional support for optimal wound healing Complete Doxycycline as previously prescribed. CT scan of the pelvis scheduled for 07/04/23 @ [facility] [phone] Do not use donut for pressure relief. [...] well; discussed CT scan scheduled tomorrow at [place]; patient to follow-up here in 2 weeks. [...] Tammy Urena RN/car/sp documented in this encounter [facility] 07-03-2023 History of Presen t illness [...] clinic visit today. He has assistance of [facility] at home now 3x/week for wound care [...] drainage of SAH PAST SURGICAL HISTORY OF TARGET PROTECTION SPECIALIST shunt placement PAST SURGICAL HISTORY OF SVC [...] blanchable mild erythema; pad and protect with Wahoo SAP Left medial lower leg-intact blood blister; pad pad protect with gauze wrap PROCEDURE: Excisional Sharp Debridement- right ischium A time out was performed immediately prior to procedure start with the S[employer] CLEANING HAND and team , correctly identifying the patient [...] immediately prior to procedure start with the SACK CLEANING HAND and team , correctly identifying the patient [...] under the [facility] scanned docs tab on [employer]. The purpose of the photo(s) is to [...] alginate to left sacral wound. Cover with Wahoo SAP dressing. Change dressing 3x/week and prn. - Swab bilat lower leg wounds with Betadine. Cover with 4x4's, ABD and conform roll gauze. Change dressing 3x/week and prn. - Gentian tiffany applied to right ischial periwound in clinic. Apply saline moistened Promogran and calcium alginate to the right ischial wound. Cover with Wahoo SAP dressing. Change dressing 3x/week and prn. [...] 07/03/2023. Nima Tillman APRN, CNP, CWS Certified Hand Surgeon July 03, 2023 documented in this encounter [facility] 06-26-2023 Note HNO ID: [id number] Author: Nima Tillman APRN.JAMAL Service: ? Author [...] clinic visit today. He has assistance of [facility] at home now 3x/week for wound care [...] drainage of SAH PAST SURGICAL HISTORY OF TARGET PROTECTION SPECIALIST shunt placement PAST SURGICAL HISTORY OF SVC [...] TAB Take o (more content not included)... [facility] 06-26-2023 History of Presen t illness Narrative [...] clinic visit today. He has assistance of [facility] at home now 3x/week for wound care [...] drainage of SAH PAST SURGICAL HISTORY OF TARGET PROTECTION SPECIALIST shunt placement PAST SURGICAL HISTORY OF SVC [...] blood blisters; area is dry, closed. Keep AUTO INSPECTION SPECIALIST, monitor. PROCEDURE: Excisional Sharp Debridement- right ischium A time out was performed immediately prior to procedure start with the [employer] and team , correctly identifying the patient [...] immediately prior to procedure start with the [employer] and team , correctly identifying the patient [...] found under the [facility] images tab on [facility]. The purpose of the photo(s) is to [...] alginate to left sacral wound. Cover with Wahoo SAP dressing. Change dressing 3x/week and prn. - Swab bilat lower leg wounds with Betadine. Cover with 4x4's, ABD and conform roll gauze. Change dressing 3x/week and prn. - Gentian tiffany applied to right ischial periwound in clinic. Apply Promogran to the right ischial wound. Cover with Wahoo SAP dressing. Change dressing 3x/week and prn. [...] 06/26/2023. Nima Tillman APRN, JAMAL, CWS Certified Hand Surgeon June 26, 2023 documented in this encounter [facility] 06-26-2023 Instructions Aileen Henson RN - 06/26/2023 11:38 AM EDT WOUND CARE INSTRUCTIONS- Skyler Duncan [facility] (Nurse Sue) FAX: [phone] or [phone] Wound location: Right ischium 1. Wash your [...] to the wound bed. 5. Cover with Wahoo SAP (silicone bordered bandage) 6. Change your [...] to the wound bed. 5. Cover with Wahoo SAP (silicone bordered bandage) 6. Change your dressing 3 times per week and as needed to maintain clean dry dressin Left & Right Lateral lower Legs : 1. Wash your hands with soap and water before and after wound care. 2. Gather all supplies needed. 3. Wash wound with Dial soap and water. Pat dry. 4. Isabela the wound and scabbed areas with Betadine and allow to dry 5. Cover with 4x4 gauze, ABD, conform, tape. 6. Change your dressing 3 x weekly and as needed to maintain clean dry dressing. 7. Apply single layer tubi dock manager size D to right and left legs [...] daily Report any of the following changes [phone] or go to the Emergency Department: Fever [...] as prescribed. CT scheduled for 07/04/23 Imaging [phone] Do not use donut for pressure relief. 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 No dressing COMPRESSION: Single layer tubi-dock manager size D to BLE SPECIAL NEEDS: Coordination of care AVS to [facility] via [facility] Emotional support N/A OR set-up N/A Sports Activities Foul Judge N/A Incontinence needs N/A DISCHARGED in stable condition to: home via wheelchair with Global surgical period dates if applicable: N/A Plan: Follow-up in the wound center with Nima in 1 week Continue aggressive nutritional support for optimal wound healing Complete antibiotics as prescribed. CT scheduled for 07/04/23 Imaging [phone] Do not use donut for pressure relief. [...] Aileen Henson RN/sv documented in this encounter [facility] 06-19-2023 Note HNO ID: [id number] Author: Nima Tillman APRN.ENVIRONMENTAL HEALTH MANAGER Service: ? Author Type: Nurse Practitioner Type: [...] clinic visit today. He has assistance of [facility] at home now 3x/week for wound care [...] drainage of SAH PAST SURGICAL HISTORY OF TARGET PROTECTION SPECIALIST shunt placement PAST SURGICAL HISTORY OF SVC [...] (Patient taking differe (more content not included)... [facility] 06-19-2023 Instructions Leigh Ann Gastelum RN - 06/19/2023 2:30 PM EDT [facility] FAX: [phone] or [phone] Wound location: Right ischium & Left Sacrum [...] to the wound bed. 5. Cover with Wahoo SAP (silicone bordered bandage) 6. Change your [...] dry dressing. 7. Apply single layer tubi dock manager size D to right and left legs [...] daily Report any of the following changes [phone] or go to the Emergency Department: Fever [...] visit. Call to schedule. Imaging Scheduling: Call [phone] to schedule your MRI or Cat Scan. [...] Nima Tillman, JAMAL/mh/sv/fm documented in this encounter [facility] 06-19-2023 History of Presen t illness [...] clinic visit today. He has assistance of [facility] at home now 3x/week for wound care [...] drainage of SAH PAST SURGICAL HISTORY OF TARGET PROTECTION SPECIALIST shunt placement PAST SURGICAL HISTORY OF SVC [...] found under the [facility] images tab on [facility]. The purpose of the photo(s) is to [...] Pressure injury of right ischium, stage 3 ([facility]) Comment: Mild induration of left sacral wound [...] alginate to left sacral wound. Cover with Wahoo SAP dressing. Change dressing 3x/week and prn. - Apply Adaptic and silver alginate to bilat lower leg wounds. Cover with 4x4's, ABD and conform roll gauze. Change dressing 3x/week and prn. - Apply silver alginate to the right ischial wound. Cover with Wahoo SAP dressing. Change dressing 3x/week and prn. [...] and is in agreement. 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 Call to schedule. Imaging Scheduling: Call [phone] to schedule your MRI or Cat Scan. [...] Ann Gastelum RN/alberto documented in this encounter [facility] 06-14-2023 Miscellaneous Notes Patient's [facility] nurse Sue called the wound center regarding [...] Miranda Matute RN documented in this encounter [facility] 06-07-2023 Miscellaneous Notes TCT to pt to discuss wound culture results. Due to pt drug allergies and interactions will treat with topical Gentamicin ointment to be applied to wound with each dressing change. Rx to be sent to pt pharmacy. Wound clinic staff nurse will call pt C to notify of change in wound care treatment. documented in this encounter [facility] 06-06-2023 Miscellaneous Notes Received call from Sue hunt at [facility]. Sue is asking if [facility] can change the dressing only 2 times [...] for the call. documented in this encounter [facility] 05-31-2023 Note HNO ID: [id number] Author: Nima Tillman APRN.JAMAL Service: ? Author [...] visit today. He has assistance of [facility] at home one a week. Location: right [...] drainage of SAH PAST SURGICAL HISTORY OF TARGET PROTECTION SPECIALIST shunt placement PAST SURGICAL HISTORY OF SVC [...] Topics Alcohol use: (more content not included)... [facility] 05-31-2023 History of Presen t illness Narrative [...] clinic visit today. He has assistance of [facility] at home one a week. [...] drainage of SAH PAST SURGICAL HISTORY OF TARGET PROTECTION SPECIALIST shunt placement PAST SURGICAL HISTORY OF SVC [...] immediately prior to procedure start with the S[employer] CLEANING HAND and team , correctly identifying the patient [...] found under the [facility] images tab on [facility]. The purpose of the photo(s) is to [...] blue classic to the wound. Cover with Wahoo SAP dressing. Change dressing 3x/week and prn. [...] and is in agreement. Nima Tillman APRN, ENVIRONMENTAL HEALTH MANAGER, CWS Certified Hand Surgeon May 31, 2023 documented in this encounter [facility] 05-31-2023 Instructions Tammy Urena RN - 05/31/2023 1:26 PM EDT WOUND CARE INSTRUCTIONS- Skyler Rojas Wound location: Right ischium [facility] Care FAX: 1. Wash your hands with [...] to the wound 5. Cover with 4x4 Wahoo SAP (silicone bordered bandage) 6. Change your [...] daily Report any of the following changes [phone] or go to the Emergency Department: Fever or chills Increased drainage Green or yellow drainage Foul odor Increased pain Hardness around the wound Redness, warmth or swelling of the surrounding tissue Color change to the wound Plan: Follow-up in the wound center with Nima in 3 weeks Wound culture obtained today Continue aggressive nutritional support for optimal wound healing Imaging Scheduling: Call [phone] to schedule your MRI or Cat Scan. 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, ostomy, chronic pain syndrome, disseminated nocardiosis (bacterial infection) and life-time need for Bactrim Wound Etiology according to patient: right butt wound for about a year, noticed it about a week after ostomy surgery Patient arrived via: motorized wheelchair with [employer]/Nursing Facility: [facility] (used to be [facility]) Consent captured for debridement per Keenan Ferris until 2023 Special Instructions: bed (son: Zac transfers patient to bed) Anticoagulant Therapy: Plavix Living Situation: house Who lives with patient: : Mary Who will be performing wound care: and home care nurse Available Support System: family In-Home Assist Devices: wheelchair, hqzln-ct-twg device for transfers 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) [...] PROVIDER: Anesthetic Used: 2% lidogel applied per Cristobal Hernandez RN Wound #1 Other procedure: N/A [...] hydrofera blue classic Covered and secured with: Wahoo SAP 4x4 Other: COMPRESSION: N/A SPECIAL NEEDS: Coordination of care - orders faxed to [facility] Emotional support N/A OR set-up N/A Sports Activities Foul Judge N/A Incontinence needs N/A DISCHARGED in stable condition to: home via wheelchair with and son Global surgical period dates if applicable: N/A PLAN/ORDERS: Follow-up in the wound center with Nima in 3 weeks Wound culture obtained today Continue aggressive nutritional support for optimal wound healing Imaging Scheduling: Call [phone] to schedule your MRI or Cat Scan. [...] Debridement of right ischial wound Sign In: 1406 A Moment of CARE was completed. Personnel directly involved with the procedure wore the appropriate PPE (Personal Protective Equipment). Patient/Surrogate Stated/Verified: PATIENT VERIFIED(optional for EMERGENT procedures): Patient name, Date of , Relevant allergies, and The intended procedure Time Out Communication: 0230 Intended patient and procedure match the source [...] Tammy Urena RN/ documented in this encounter [facility] Wound infection- Primary Posttraumatic [...] stage 3 (HCC) [facility] Diagnosis Pressure injury of right ischium, stage 3 (HCC)- Primary Pressure injury of sacral region, stage 2 (HCC) Skin ulcer of right lower leg, limited to breakdown of skin (HCC) Skin ulcer of left lower leg, limited to breakdown of skin (HCC) [facility] [place] [facility] Diagnosis Pressure injury of right ischium, stage 3 (HCC)- Primary Pressure injury of sacral region, stage 2 (HCC) Skin ulcer of right lower leg, limited to breakdown of skin (HCC) documented in this encounter [facility] Summary Purpose Family History No Family [...] CT PELVIS W/O CONTRAST MATERIAL Nima Tillman, SACK CLEANING HAND.ENVIRONMENTAL HEALTH MANAGER [address] [place] [address] Ct Imaging Referral ID Status Reason Start Date Expiration Date Visits Requested Visits Authorized [id number] Authorized Auto-Generat ed Referral 06/19/2023 07/18/2024 1 1 Additional Source Comments (unrecognized sect ion and content) No Status Records FoundNo Status Records FoundNo Status Records FoundNo Status Records Found INFORMATION SOURCE (unrecogn ized section and content) DATE CREATED AUTHOR AUTHOR'S ORGANIZ ATION 08/25/2020 [facility] DATE CREATED AUTHOR AUTHOR'S ORGANIZ ATION 07/05/2023 [facility] DATE CREATED AUTHOR AUTHOR'S ORGANIZ ATION 08/18/2023 [facility] Source Comments (unrecognize d section and content) In the event this informatio n is protected by the Federal Confidentiality of Alcohol and Drug Abuse Patient Records regulations: The Federal rules restrict any use of the information to criminally investigate or prosecute any alcohol or drug abuse patient.[facility] the event this information is protected by the Federal Confidentiality of Alcohol and Drug Abuse Patient Records regulations: The Federal rules restrict any use of the information to criminally investigate or prosecute any alcohol or drug abuse patient.[facility] the event this information is protected by the Federal Confidentiality of Alcohol and Drug Abuse Patient Records regulations: The Federal rules restrict any use of the information to criminally investigate or prosecute any alcohol or drug abuse patient.[facility] the event this information is protected by the Federal Confidentiality of Alcohol and Drug Abuse Patient Records regulations: The Federal rules restrict any use of the information to criminally investigate or prosecute any alcohol or drug abuse patient.[facility] the event this information is protected by the Federal Confidentiality of Alcohol and Drug Abuse Patient Records regulations: The Federal rules restrict any use of the information to criminally investigate or prosecute any alcohol or drug abuse patient.[facility] the event this information is protected by the Federal Confidentiality of Alcohol and Drug Abuse Patient Records regulations: The Federal rules restrict any use of the information to criminally investigate or prosecute any alcohol or drug abuse patient.[facility] the event this information is protected by the Federal Confidentiality of Alcohol and Drug Abuse Patient Records regulations: The Federal rules restrict any use of the information to criminally investigate or prosecute any alcohol or drug abuse patient.[facility] the event this information is protected by the Federal Confidentiality of Alcohol and Drug Abuse Patient Records regulations: The Federal rules restrict any use of the information to criminally investigate or prosecute any alcohol or drug abuse patient.[facility] the event this information is protected by the Federal Confidentiality of Alcohol and Drug Abuse Patient Records regulations: The Federal rules restrict any use of the information to criminally investigate or prosecute any alcohol or drug abuse patient.[facility] Reason for Visit (unrecogniz ed section [...] Care Teams (unrecognized sec tion and content) In School Suspension Coordinator Relationship Specialty Start Date End Date Josette Melendez MD [address] [place] [address] PCP - General Family Medicine 09/25/17 In School Suspension Coordinator Relationship Specialty Start Date End Date Josette Melendez MD [address], [place] [id number] PCP - General Family Medicine 09/25/17 In School Suspension Coordinator Relationship Specialty Start Date End Date Josette Melendez MD [address], [place] [address] PCP - General Family Medicine 09/25/17 In School Suspension Coordinator Relationship Specialty Start Date End Date Josette Melendez MD [address] [place], [place] [id number] PCP - General Family Medicine 09/25/17 In School Suspension Coordinator Relationship Specialty Start Date End Date Josette Melendez MD [address] [place] [address] PCP - General Family Medicine 09/25/17 In School Suspension Coordinator Relationship Specialty Start Date End Date Josette Melendez MD [address] [place] [address] PCP - General Family Medicine 09/25/17 FOR [...] BE BASED ON THE PRIMARY CLINICAL RECORDS. [employer] provides no warranty or guarantee of the accuracy or completeness of information in this document.
[2023-11-30 07:52] LABS: Hemoglobin 9.2 g/dL (13.0-16.5); Mean Corp Hgb Conc 30.7 g/dL (32-36); Mean Corpuscular Hgb 29.4 pg (27.0-32.0); Mean Corpuscular Volume 95.8 fL (80-94); Mean Platelet Vol. 9.7 fl (6.2-12.0); Platelet Count 233 K/mm3 (150-450); RBC Distribution Width CV 13.9 % (11.6-14.6); Red Blood Count 3.13 M/mm3 (4.6-6.2); White Blood Count 7.3 K/mm3 (4.4-11.0)
[2023-11-30 08:29] LABS: ALB/GLOB Ratio 0.4 RATIO (0.9-2.4); AST(SGOT) 31 U/L (15-37); Alanine Aminotransfer ALT/SGPT 40 U/L (16-61); Albumin, Serum 1.8 g/dL (3.2-5.0); Alkaline Phosphatase 79 U/L (45-117); Anion Gap 7 (5-15); BUN 25 mg/dL (7-18); BUN/Creat Ratio 39.8 RATIO (10-20); Calcium,Total 8.5 mg/dL (8.5-10.1); Chloride 111 mmol/L (98-107); Creatinine, Serum 0.63 mg/dL (0.70-1.30); EST Glomerular Filtration Rate 129 mL/min (>60); Est Glom Filt Rate - Afr Amer 156 mL/min (>60); Globulin 4.7 g/dL (2.2-4.2); Glucose 107 mg/dL (74-106); Potassium 3.3 mmol/L (3.5-5.1); Protein, Total 6.5 g/dL (6.4-8.2); Sodium Level 142 mmol/L (136-145)
== END ==
LOC: OLS.WCC 05:00
PROVIDERS: PCP Family Medicine; Visit Provider Family Medicine
DX: R53.83 Other fatigue (principal); I10 Essential (primary) hypertension; E87.6 Hypokalemia; Z79.899 Other long term (current) drug therapy
CPT/HCPCS: 36415; 80053; 85027